=== PATIENT | male | born 1940 | race Caucasian/White ===

== ENCOUNTER 2017-01-01 15:20 | Inpatient (IN) | payer OTHER ==
[2017-01-01] MEDS ORDERED: SODIUM CHLORIDE 1,000 ML IV STA (16:46)
--- NOTE | 2017-01-01 16:52 | PDOC ---
History of Present Illness - General Chief Complaint: Blood Sugar Problem Stated Complaint: DEHYDRATION Time Seen by Provider: 01/01/17 16:13 - History of Present Illness Initial Comments: 01/01/17 17:07 Mr. Abel is a 76 y/o male with a past medical history of CHF hypertension, [place] with CABG, diabetes, end-stage renal disease, who presents to the emergency department today with a chief complaint of high blood sugar and dizziness. Pt. is a poor historian. Patient states had when his home health aide came this morning to take his blood sugar was 400. He states that he also feels a little dizzy and a little short of breath. He feels overall well lying in the bed. Otherwise, the patient states he is unsure why he is here. Denies fevers, chills , weight change, chest pain, palpitations, dyspnea, N/V/D. Past History - Past Medical History Allergies/Adverse Reactions: Allergies Allergy/AdvReac Type Severity Reaction Status Date / Time No Known Drug Allergies Allergy Verified 01/01/17 16:07 Home Medications: Ambulatory Orders Aspirin [ASA -] 81 mg PO HS 10/31/12 Tamsulosin HCl 0.4 mg PO HS 10/31/12 Atorvastatin Calcium [Lipitor] 10 mg PO HS 06/18/13 Tacrolimus [Prograf] 1 mg PO BID 04/08/16 Clopidogrel Bisulfate [Plavix -] 75 mg PO DAILY #30 tablet 04/13/16 Amlodipine Besylate 10 mg PO DAILY 04/28/16 Acetaminophen [Tylenol .Regular Strength -] 650 mg PO Q6H PRN #0 tablet Carvedilol [Coreg -] 25 mg PO BID tablet 05/03/16 Docusate Sodium [Colace -] 100 mg PO BID PRN #0 capsule 05/03/16 Oxycodone HCl [Roxicodone -] 5 mg PO Q6H PRN #0 tablet MDD 4 05/03/16 Collagenase Clostridium Hist. [Santyl -] 1 applic TP DAILY #30 applic 08/11/16 Insulin (Levemir) [Levemir Vial] 25 units SQ AM ml 09/28/16 Insulin Sliding Scale [Novolog Vial Sliding Scale -] 1 vial SQ ACHS units 09/28 Mycophenolate Sodium [Myfortic -] 360 mg PO BID tablet. 09/28/16 Prednisone [Deltasone -] 5 mg PO DAILY tablet 10/01/16 Lactobacillus Acidophilus [Bacid -] 1 each PO DAILY #10 tab 11/01/16 Hydralazine HCl [Apresoline -] 25 mg BID 01/04/17 Anemia: No Asthma: No Cardiac Disorders: Yes COPD: No Diabetes: Yes (IDDM) HTN: Yes Hypercholesterolemia: Yes - Surgical History Appendectomy: No Cardiac Surgery: Yes (open heart surgery) Cholecystectomy: No Orthopedic Surgery: No - Immunization History Immunization Up to Date: Yes - Psycho/Social/Smoking Cessation Hx Anxiety: No Suicidal Ideation: No Smoking Status: No Smoking History: Never smoked Have you smoked in the past 12 months: No Number of Cigarettes Smoked Daily: 0 Information on smoking cessation initiated: No Hx Alcohol Use: No Drug/Substance Use Hx: No Substance Use Type: None Hx Substance Use Treatment: No *Physical Exam - Vital Signs Last Vital Signs Temp Pulse Resp BP Pulse Ox 98.0 F 80 20 130/92 95 01/01/17 16:08 01/01/17 16:08 01/01/17 16:08 01/01/17 16:08 01/01/17 16:08 - Physical Exam Comments: 01/01/17 17:45 GENERAL: Well developed, well nourished. Awake and alert. No acute distress. HEENT: Normocephalic, atraumatic. PERRLA, EOMI. No conjunctival pallor. Sclera are non- icteric. Dry mucous membranes. Oropharynx is clear. NECK: Supple. Full ROM. No JVD. Carotid pulses 2+ and symmetric, without bruits. No thyromegaly. No lymphadenopathy. CARDIOVASCULAR: Regular rate and rhythm. (+) II/ systolic murmur loudest at the apex. No rubs , or gallops. Distal pulses are 2+ and symmetric. PULMONARY: No evidence of respiratory distress. Lungs clear to auscultation bilaterally. No wheezing, rales or rhonchi. ABDOMINAL: Soft. Non-tender. Non-distended. No rebound or guarding. No organomegaly. Normoactive bowel sounds. MUSCULOSKELETAL Normal range of motion at all joints. No bony deformities or tenderness. No CVA tenderness. EXTREMITIES: No cyanosis. No clubbing. (+)1 pitting edema. No calf tenderness. SKIN: Warm and dry. Normal capillary refill. No rashes. No jaundice. NEUROLOGICAL: Alert, awake, appropriate. Cranial nerves 2-12 intact. No deficits to light touch and temperature in face, upper extremities and lower extremities. No motor deficits in the in face, upper extremities and lower extremities. Normoreflexic in the upper and lower extremities. Normal speech. Toes are down- going bilaterally. Gait is normal without ataxia. PSYCHIATRIC: Cooperative. Good eye contact. Appropriate mood and affect. ED Treatment Course - LABORATORY CBC & Chemistry Diagram: 01/05/17 06:10 01/05/17 06:10 - RADIOLOGY Radiology Studies Ordered: Category Date Time Status CHEST X-RAY PORTABLE* [RAD] Stat Radiology 01/01/17 16:44 Ordered Medical Decision Making - Medical Decision Making 01/01/17 17:49 patient is a 76-year-old male with a complex past medical history. He is presenting with dizziness and high blood sugar. Given that he is a poor historian and there are vague symptoms will to a full workup. Pt. is AAOx3. We will rule out DKA, arrhythmia, ACS, pneumonia, infection. Will give fluids and recheck a blood sugar and manage appropriately. Neurological etiology less likely d/t lack of focal neurological findings. 1. Basic labs, CBC, CMP, UA 2. Cardiac Labs, EKG, CXR 3. Acetone for possible DKA. 4. Hydrate with fluids Re-evaluate. 01/01/17 18:40 labs show white count of 14. Blood glucose is currently 328. Elevated potassium 5.8, Na 134, Cl, Patient also has small 1+ acetones. No anion gap 13.this could all be due to possible hydration or underlying infection. EKG at this time shows a sinus rhythm with a rate of 67 prolonged VT interval. There are t wave inversion noted as well. No acute ischemic changes. Still waiting on UA. We will most likely admit for observation 6 units of regular insulin are ordered at this time. Dr. Suzanne rivas. 01/01/17 18:[address] Palacios, admitting to [facility] for obs. Will admit to telemetry for prolonged VT interval with inverted t waves. Case discussed with Dr. Caraballo *DC/Admit/Observation/Transfer Diagnosis at time of Disposition: Hyperglycemia, Acute renal injury Leukocytosis Qualifiers: Leukocytosis type: unspecified Qualified Code(s): D72.829 - Elevated white blood cell count, unspecified - Discharge Dispostion Condition at time of disposition: Stable Admit: Yes
[2017-01-01 17:46] LABS: BASOPHIL 0.7 % (0-2.0); EOSINOPHIL 0.7 % (0-4.5); MCH 29.1 pg (25.7-33.7); MCHC 32.6 g/dl (32.0-35.9); MEAN CELL VOLUME 89.3 fl (80-96); MEAN PLT VOLUME 9.3 fl (7.5-11.1); NEUTROPHILS 72.4 % (42.8-82.8); PLATELET COUNT 218 K/MM3 (134-434); RDW 14.7 % (11.9-15.9); WHITE BLOOD COUNT 14.6 K/mm3 (4.0-10.0)
[2017-01-01 18:11] LABS: TROPONIN I 0.03 ng/ml (0.00-0.05)
[2017-01-01 18:16] LABS: ALBUMIN 3.8 g/dl (3.4-5.0); BILIRUBIN,TOTAL 0.7 mg/dL (0.2-1.0); CALCIUM 9.8 mg/dL (8.5-10.1); CREATININE 1.5 mg/dL (0.7-1.3); TOT PROT 6.8 g/dl (6.4-8.2)
[2017-01-01] MEDS ORDERED: INSULIN REGULAR HUMAN 100 UNITS/ML *VIAL SQ ONE (18:28)
[2017-01-01] MEDS ORDERED: INSULIN REGULAR HUMAN 100 UNITS/ML *VIAL ONE ×2 (19:02→23:02)
--- NOTE | 2017-01-01 19:27 | PN ---
<Pippa Garcia - Last Filed: 01/01/17 19:27> Teaching Attending Note Name of Resident: Omar Mendez <Alfonso Bowles - Last Filed: 01/02/17 04:24> Teaching Attending Note ATTENDING PHYSICIAN STATEMENT I saw and evaluated the patient. I reviewed the resident's note and discussed the case with the resident. I agree with the resident's findings and plan as documented. SUBJECTIVE: Patient is a 76 y/o male who presented to the emergency department, accompanied by his daughter, s/p fall. Patient is a poor historian. As per family, the patient lives alone and receives [employer] during the week. Patient was found on the floor by employee of [employer] and EMS was called. En route to [facility] found patients blood sugar level to be 400. Patient reports that he has not eaten for 3 days and has had minimal water. As per family patient had been complaining of left arm and right leg numbness prior to exam however, on exam patient denied any numbness. Patient denies fevers, chills, weight change, chest pain, palpitations, dyspnea, nausea, vomiting, diarrhea. PMH: CHF, hypertension, [place] with CABG, diabetes, end-stage renal disease, Hypercholesterolemia, Kidney transplant OBJECTIVE: Vital Signs: CBCD WBC 14.6 K/mm3 (4.0-10.0) H D 01/01/17 17:22 RBC 5.32 M/mm3 (4.00-5.60) D 01/01/17 17:22 Hgb 15.5 GM/dL (11.7-16.9) D 01/01/17 17:22 Hct 47.5 % (35.4-49) D 01/01/17 17:22 MCV 89.3 fl (80-96) 01/01/17 17:22 MCHC 32.6 g/dl (32.0-35.9) 01/01/17 17:22 RDW 14.7 % (11.9-15.9) 01/01/17 17:22 Plt Count 218 K/MM3 (134-434) D 01/01/17 17:22 MPV 9.3 fl (7.5-11.1) 01/01/17 17:22 CMP Sodium 134 mmol/L (136-145) L 01/01/17 17:12 Potassium 5.3 mmol/L (3.5-5.1) H 01/01/17 17:12 Chloride 96 mmol/L (98-107) L 01/01/17 17:12 Carbon Dioxide 25 mmol/L (21-32) 01/01/17 17:12 Anion Gap 13 (8-16) 01/01/17 17:12 BUN 31 mg/dL (7-18) H 01/01/17 17:12 Creatinine 1.5 mg/dL (0.7-1.3) H D 01/01/17 17:12 Creat Clearance w eGFR 45.75 (>60) 01/01/17 17:12 Calcium 9.8 mg/dL (8.5-10.1) D 01/01/17 17:12 Total Bilirubin 0.7 mg/dL (0.2-1.0) D 01/01/17 17:12 AST 20 U/L (15-37) D 01/01/17 17:12 ALT 17 U/L (12-78) 01/01/17 17:12 Alkaline Phosphatase 91 U/L (45-117) 01/01/17 17:12 Total Protein 6.8 g/dl (6.4-8.2) D 01/01/17 17:12 Albumin 3.8 g/dl (3.4-5.0) D 01/01/17 17:12 GENERAL: Awake, alert, and fully oriented, in no acute distress HEENT: (+) Dry mucosa. Atraumatic. PERRLA, EOMI. No JVD LUNGS: No distress, speaks full sentences, clear to auscultation bilaterally HEART: Regular rate and rhythm, normal S1 and S2, no murmurs, rubs or gallops, peripheral pulses normal and equal bilaterally. ABDOMEN: Soft, nontender, normoactive bowel sounds. No guarding, no rebound. No masses EXTREMITIES: (+) Left lower extremity +1 pitting edema and is slighty larger than the right lower extremity. Normal inspection, Normal range of motion. No clubbing or cyanosis. NEUROLOGICAL: Cranial nerves II through XII grossly intact. Normal speech, normal gait, no focal sensorimotor deficits SKIN: Warm, Dry, normal turgor, no rashes or lesions noted. Labs: Last Vital Signs Temp Pulse Resp BP Pulse Ox 98.0 F 80 20 130/92 95 01/01/17 16:08 01/01/17 16:08 01/01/17 16:08 01/01/17 16:08 01/01/17 16:08 Imaging: ECG. Impression-Normal sinus rhythm. Right bundle branch block. Left anterior fascicular block. Bifascicular block. T wave abnormality, consider lateral ischemia. Abnormal ECG. ASSESSMENT AND PLAN: Fall - unclear mechanism. Do not suspect this is cardiac in nature but can trend trop to r/o. -Check orthostatics -Follow CT head and carotid Doppler -Follow lipid profile -Fall precaution -IV fluid NS 100ml/hr Leukocytosis - Immunocompromised patient due to renal transplant history on prednisone/mycophenolate/ Tacrolimus, could be due to prednisone. Ruling out UTI. -Give ampicillin 1g Q6H empirically -Consider ID consult CHUCK-Could be prerenal from decrease fluid intake or could be due to tacrolimus/ mycophenolate -Follow Urine lytes, protien, pr: cr ratio -IV fluid NS 100ml/hr -UA has hyaline cast -Repeat labs in morning. Update: Shows CHUCK resolved Diabetes - hyperglycemic, -Started on sliding scale and levemir -Monitor blood glucose -Diabetic diet CAD history of CABG -Restart home meds. -R/o cardiac etiology of fall -ECHO done in october 2016 Renal transplant - -Resume home medications. -Nephrology consult in AM Admit to tele. ADDENDUM: At 12:49 patient was found to be unresponsive in the ER. [place] coma scale of less than 8 at the time aliya josey was called patient intubated. Repeat CT negative for any acute findings. Repeat labs done which reported CHUCK resolved. Documentation prepared by Alfonso Bowles, acting as medical imaging director for Yeimi Nevarez MD.
[2017-01-01 19:36] LABS: URINE APPEARANCE CLEAR; URINE BILIRUBIN NEGATIVE (NEGATIVE); URINE BLOOD NEGATIVE (NEGATIVE); URINE COLOR LTYELLOW; URINE GLUCOSE (UA) 3+ (NEGATIVE); URINE KETONE 1+ (NEGATIVE); URINE LEUK ESTERASE NEGATIVE (NEGATIVE); URINE NITRITE NEGATIVE (NEGATIVE); URINE UROBILINOGEN NEGATIVE E.U./dl (0.2-1.0)
[2017-01-01 19:39] LABS: URINE PROTEIN 1+ (NEGATIVE)
[2017-01-01 19:41] LABS: URINE HYALINE CAST 2 /lpf; URINE MUCUS RARE; URINE RBC <1 /hpf (0-3); URINE WBC <1 /hpf (3-5)
[2017-01-01] MEDS ORDERED: SODIUM CHLORIDE 1,000 ML IV SCH (20:45)
[2017-01-01] MEDS ORDERED: DOCUSATE SODIUM 100 MG CAPSULE (FP) PO PRN (20:46)
--- NOTE | 2017-01-01 20:51 | HP ---
CHIEF COMPLAINT: fall and hyperglycemia PCP: Dr palumbo HISTORY OF PRESENT ILLNESS: Patient is a 76 y/o male who presented to the emergency department, accompanied by his daughter, s/p jeramy. Patient is a poor historian. As per family, the patient lives alone and receives [employer] during the week. Patient was found on the floor by employee of [employer] and EMS was called. En route to [facility] found patients blood sugar level to be 400. Patient reports that he has not eaten for 3 days and has had minimal water. As per family patient had been complaining of left arm and right leg numbness prior to exam however, on exam patient denied any numbness. Patient denies fevers, chills, weight change, chest pain, palpitations, dyspnea , nausea, vomiting, diarrhea. ER course was notable for: (1)cbc, cmp (2)cxr (3)insulin 6 unit sq, 1 L IV fluid Recent Travel: PAST MEDICAL HISTORY: CHF, hypertension, [place] with CABG, diabetes, end-stage renal disease, Hypercholesterolemia, Kidney transplant PAST SURGICAL HISTORY: CABG, renal transplant Social History: Smoking: No Alcohol: No Drugs: No Family History: Allergies No Known Drug Allergies Allergy (Verified 01/01/17 16:07) HOME MEDICATIONS: Home Medications Medication Instructions Recorded Aspirin [ASA -] 81 mg PO HS 10/31/12 Tamsulosin HCl 0.4 mg PO HS 10/31/12 Atorvastatin Calcium [Lipitor] 10 mg PO HS 06/18/13 Tacrolimus [Prograf] 1 mg PO BID 04/08/16 Clopidogrel Bisulfate [Plavix -] 75 mg PO DAILY #30 tablet 04/13/16 Amlodipine Besylate 10 mg PO DAILY 04/28/16 Acetaminophen [Tylenol .Regular 650 mg PO Q6H PRN #0 tablet 05/03/16 Strength -] Carvedilol [Coreg -] 25 mg PO BID tablet 05/03/16 Docusate Sodium [Colace -] 100 mg PO BID PRN #0 capsule 05/03/16 Hydralazine HCl [Apresoline -] 25 mg PO TID tablet 05/03/16 Oxycodone HCl [Roxicodone -] 5 mg PO Q6H PRN #0 tablet MDD 4 05/03/16 Collagenase Clostridium Hist. 1 applic TP DAILY #30 applic 08/11/16 [Santyl -] Insulin (Levemir) [Levemir Vial] 25 units SQ AM ml 09/28/16 Insulin Sliding Scale [Novolog 1 vial SQ ACHS units 09/28/16 Vial Sliding Scale -] Mycophenolate Sodium [Myfortic -] 360 mg PO BID tablet. 09/28/16 Prednisone [Deltasone -] 5 mg PO DAILY tablet 10/01/16 Lactobacillus Acidophilus [Bacid -] 1 each PO DAILY #10 tab 11/01/16 REVIEW OF SYSTEMS CONSTITUTIONAL: Fall Absent: fever, chills, diaphoresis, generalized weakness, malaise, loss of appetite, weight change HEENT: Absent: rhinorrhea, nasal congestion, throat pain, throat swelling, difficulty swallowing, mouth swelling, ear pain, eye pain, visual changes CARDIOVASCULAR: Absent: chest pain, syncope, palpitations, irregular heart rate, lightheadedness , peripheral edema RESPIRATORY: Absent: cough, shortness of breath, dyspnea with exertion, orthopnea, wheezing, stridor, hemoptysis GASTROINTESTINAL: Absent: abdominal pain, abdominal distension, nausea, vomiting, diarrhea, constipation, melena, hematochezia GENITOURINARY: Absent: dysuria, frequency, urgency, hesitancy, hematuria, flank pain, genital pain MUSCULOSKELETAL: Absent: myalgia, arthralgia, joint swelling, back pain, neck pain SKIN: Absent: rash, itching, pallor HEMATOLOGIC/IMMUNOLOGIC: Absent: easy bleeding, easy bruising, lymphadenopathy, frequent infections ENDOCRINE: Absent: unexplained weight gain, unexplained weight loss, heat intolerance, cold intolerance NEUROLOGIC: Fall Absent: headache, focal weakness or paresthesias, dizziness, unsteady gait , seizure, mental status changes, bladder or bowel incontinence PSYCHIATRIC: Absent: anxiety, depression, suicidal or homicidal ideation, hallucinations. PHYSICAL EXAMINATION GENERAL: Awake, alert, and fully oriented, in no acute distress. HEAD: Normal with no signs of trauma. EYES: Pupils equal, round and reactive to light, extraocular movements intact, sclera anicteric, conjunctiva clear. No lid lag. EARS, NOSE, THROAT: Ears normal, nares patent, oropharynx clear without exudates. DRY mucous membranes. NECK: Normal range of motion, supple without lymphadenopathy, JVD, or masses. LUNGS: Breath sounds equal, clear to auscultation bilaterally. No wheezes, and no crackles. No accessory muscle use. HEART: Regular rate and rhythm, normal S1 and S2, murmur present aortic stenosis radiating to neck ABDOMEN: Soft, nontender, not distended, normoactive bowel sounds, no guarding, no rebound, no masses. No hepatomegaly or splenomegaly. MUSCULOSKELETAL: Normal range of motion at all joints. No bony deformities or tenderness. No CVA tenderness. UPPER EXTREMITIES: 2+ pulses, warm, well-perfused. No cyanosis. No clubbing. Cap refill <2 seconds. No peripheral edema. av fistula in RUE LOWER EXTREMITIES: , warm, well-perfused. No calf tenderness. 1+ pitting edema NEUROLOGICAL: Cranial nerves II-XII intact. Normal speech. PSYCHIATRIC: Cooperative. Good eye contact. Appropriate mood and affect. SKIN: Warm, dry, normal turgor, no rashes or lesions noted. Laboratory Results - last 24 hr 01/01/17 19:39 POC Glucometer [phone] Current Medications Generic Name Dose Route Start Last Admin Trade Name Freq PRN Reason Stop Dose Admin Amlodipine Besylate 10 mg 01/02/17 10:00 Norvasc - PO DAILY [facility] Aspirin 81 mg 01/01/17 22:00 Asa - PO HS [facility] Atorvastatin Calcium 10 mg 01/01/17 22:00 Lipitor - PO HS [facility] Carvedilol 25 mg 01/01/17 22:00 Coreg - PO BID [facility] Clopidogrel Bisulfate 75 mg 01/02/17 10:00 Plavix - PO DAILY [facility] Collagenase 1 applic 01/02/17 10:00 Santyl - TP DAILY [facility] Docusate Sodium 100 mg 01/01/17 20:46 Colace - PO BID PRN CONSTIPATION Heparin Sodium (Porcine) 5,000 unit 01/01/17 22:00 Heparin - SQ TID [facility] Hydralazine HCl 25 mg 01/01/17 22:00 Apresoline - PO TID [facility] Sodium Chloride 1,000 mls @ 100 mls/hr 01/01/17 20:45 Normal Saline - IV ASDIR [facility] Insulin Aspart 1 vial 01/01/17 22:00 Novolog Vial Sliding Scale - SQ ACHS [facility] Protocol Insulin Detemir 25 units 01/02/17 07:00 Levemir Vial SQ AM [facility] Lactobacillus Acidophilus 1 tab 01/02/17 10:00 Bacid - PO DAILY [facility] Mycophenolate Sodium 360 mg 01/01/17 22:00 Mycophenolic Acid PO BID [facility] Prednisone 5 mg 01/02/17 10:00 Deltasone - PO DAILY [facility] Tacrolimus 1 mg 01/01/17 22:00 Prograf (Non-Formulary) PO BID [facility] Tamsulosin HCl 0.4 mg 01/01/17 22:00 Flomax - PO HS [facility] Initial EKG NSR with RBBB (also seen on prior). ASSESSMENT/PLAN: Patient is a 76 y/o male who presented to the emergency department, accompanied by his daughter, s/p fall 1. Fall - unclear mechanism, Initial EKG NSR with RBBB (also seen on prior). Trop 0.03. Do not suspect this is cardiac in nature but can trend trop to r/ o. Has not reported CP/SOB. will need PT evaluation as patient has repeated fall, might need walker. He walks with cane check orthostatics, Follow Ct heat and carotid Doppler Follow lipid profile fall precaution IV fluid NS 100ml/hr 2. Leukocytosis - immunocompromised pt due to renal transplant history on prednisone/mycophenolate/ Tacrolimus as patient is immunocompromised and had h/o enterococcus faecalis in urine , will give ampicillin 1gm q6h empirically, consider ID consult. Follow urine culture, r/o uti afebrile CXR reviewed UA negative for nitrites/LE. 3 CHUCK could be prerenal from decrease fluid intake or could be due to tacrolimus/ mycophenolate follow Urine lytes, protien, pr: cr ratio on IV fluid NS 100ml/hr UA has hyaline cast repeat labs in morning consider nephro consult 4. Diabetes - hyperglycemic, started on sliding scale and levemir monitor blood glucose diabetic diet 5. h/o CABG - on tele, restart home meds. r/o cardiac etiology of fall ECHO done in october 2016 continue home BP medication 6. h/o Renal transplant - resume home medications. nephro consult 7 HTN continue home meds fluid : NS 100ml/hr electrolyte: follow in am, hyperkalemia DVT pro: heparin sq q8h GI pro: not required Dispo: admit in tele Visit type - Emergency Visit Emergency Visit: Yes ED Registration Date: 01/01/17 Care time: The patient presented to the Emergency Department on the above date and was hospitalized for further evaluation of their emergent condition. - New Patient This patient is new to me today: Yes Date on this admission: 01/02/17 - Critical Care Critical Care patient: No
[2017-01-01] MEDS ORDERED: ATORVASTATIN CA 10 MG TABLET (FP) PO SCH (22:00)
[2017-01-01] MEDS ORDERED: TAMSULOSIN HCL 0.4 MG CAP.ER.24H (FP) PO SCH (22:00)
[2017-01-01] MEDS ORDERED: ASPIRIN 81 MG CHEWABLE TABLETS PO SCH (22:00)
[2017-01-01] MEDS: INSULIN SLIDING SCALE (NOVOLOG) 1 VIAL SQ SCH (23:01)
[2017-01-01] MEDS ORDERED: HEPARIN NA (PORCINE) 5,000 UNITS/ML 1ML VIAL ONE (23:02)
[2017-01-01] MEDS: CARVEDILOL 25 MG TABLET (FP) PO SCH (23:06)
[2017-01-01] MEDS: hydrALAZINE HCL 25 MG TABLET (FP) PO SCH (23:06)
[2017-01-01] MEDS: HEPARIN NA (PORCINE) 5,000 UNITS/ML 1ML VIAL SQ SCH (23:07)
[2017-01-01] MEDS: TACROLIMUS ANHYDROUS 1 MG CAPSULE (NF) PO SCH (23:07)
[2017-01-01] MEDS: MYCOPHENOLATE SODIUM 360 MG TABLET.DR PO SCH (23:07)
[2017-01-02 01:08] LABS: ARTERIAL BLD GAS O2 SATURATION 99.6 % (90-98.9); ARTERIAL BLOOD GAS BASE EXCESS 2.4 meq/l (-2-2); ARTERIAL BLOOD GAS HCO3 27.4 meq/L (22-26); ARTERIAL BLOOD GAS pH 7.39 (7.35-7.45)
[2017-01-02] MEDS ORDERED: RAPID SEQUENCE INTUBATION KIT NR ONE (01:10)
[2017-01-02 01:14] LABS: ALLENS TEST POSITIVE; LPM/O2% 100; PT. ON O2? YES; TYPE OF O2 NONREBREATHER
--- NOTE | 2017-01-02 01:24 | PDOC ---
*Physical Exam - Vital Signs Last Vital Signs Temp Pulse Resp BP Pulse Ox 98.6 F 82 20 114/57 95 01/01/17 21:55 01/02/17 00:31 01/01/17 21:55 01/02/17 00:31 01/01/17 21:55 ED Treatment Course - LABORATORY CBC & Chemistry Diagram: 01/05/17 06:10 01/05/17 06:10 - ADDITIONAL ORDERS Additional order review: Laboratory Results 01/01/17 01/01/17 01/01/17 17:12 17:12 17:12 Sodium 134 L Potassium 5.3 H Chloride 96 L Carbon Dioxide 25 Anion Gap 13 BUN 31 H Creatinine 1.5 H D Creat Clearance w eGFR 45.75 Random Glucose 329 H* Calcium 9.8 D Total Bilirubin 0.7 D AST 20 D ALT 17 Alkaline Phosphatase 91 Creatine Kinase 394 H D Creatine Kinase Index 1.3 CK-MB (CK-2) 5.120 H CK-MB (CK-2) Rel Index Cancelled Troponin I 0.03 D Total Protein 6.8 D Albumin 3.8 D Urine Color Urine Appearance Urine pH Ur Specific Bryan Urine Protein Urine Glucose (UA) Urine Ketones Urine Blood Urine Nitrite Urine Bilirubin Urine Urobilinogen Ur Leukocyte Esterase Urine RBC Urine WBC Hyaline Casts Urine Mucus Acetone, Qual 01/01/17 01/01/17 17:12 16:30 Sodium Potassium Chloride Carbon Dioxide Anion Gap BUN Creatinine Creat Clearance w eGFR Random Glucose Calcium Total Bilirubin AST ALT Alkaline Phosphatase Creatine Kinase Creatine Kinase Index CK-MB (CK-2) CK-MB (CK-2) Rel Index Troponin I Total Protein Albumin Urine Color Ltyellow Urine Appearance Clear Urine pH 6.0 Ur Specific Bryan 1.017 Urine Protein 1+ H Urine Glucose (UA) 3+ H Urine Ketones 1+ H Urine Blood Negative Urine Nitrite Negative Urine Bilirubin Negative Urine Urobilinogen Negative Ur Leukocyte Esterase Negative Urine RBC <1 Urine WBC <1 Hyaline Casts 2 Urine Mucus Rare Acetone, Qual Positive small 1+ 01/01/17 17:22 RBC 5.32 D MCV 89.3 MCHC 32.6 RDW 14.7 MPV 9.3 Neutrophils % 72.4 Lymphocytes % 17.4 Monocytes % 8.8 Eosinophils % 0.7 Basophils % 0.7 - Medications Given in the ED: ED Medications Discontinued Medications Generic Name Dose Route Start Last Admin Trade Name Freq PRN Reason Stop Dose Admin Sodium Chloride 1,000 mls @ 1,000 mls/hr 01/01/17 16:46 01/01/17 17:05 Normal Saline - IV 01/01/17 17:45 1,000 mls/hr ASDIR STA Administration Insulin Human Regular 6 units 01/01/17 18:28 01/01/17 19:47 Novolin R Vial *Ivpush / Er / Icu Only* SQ 01/01/17 18:29 6 unit ONCE ONE Administration Medical Decision Making - Medical Decision Making 01/02/17 01:19 76 yo M admitted for recurrent falls and hyperglycemia Head CT initially negative Pt found unresponsive with normal vital signs Multiple attempts to arouse patient unsuccessful I was called to assist in intubating this patient Two prior attempts were made with the Glidescope prior to my arrival After pre oxygenation via face mask, Etomidate and Succ given DL with Mac 3 (Mac 4 unavailable) Anterior cords 7.0 easily passed (+) tube fogging (+) capnography color change to yellow Bilateral breath sounds Absence of epigastric breath sounds Pt taken to CT for evaluation CXR demonstrates end of ETT at the [place] Pt O2 saturation 99%-100% *DC/Admit/Observation/Transfer Diagnosis at time of Disposition: Hyperglycemia, Acute renal injury Leukocytosis Qualifiers: Leukocytosis type: unspecified Qualified Code(s): D72.829 - Elevated white blood cell count, unspecified - Discharge Dispostion Condition at time of disposition: Stable
--- NOTE | 2017-01-02 01:57 | HOSP ---
Subjective - Review of Symptoms Events since last encounter: 76 yo M admitted for recurrent falls and hyperglycemia. Initial Head CT negative Pt found unresponsive with normal vital signs. Multiple attempts to arouse patient unsuccessful. unequal pupil ( right pinpoint, left 2mm) GCS < 8, code agosto was called. Patient was intubated to maintain airway. (+) capnography color change to yellow Bilateral breath sounds Absence of epigastric breath sounds, nasogastric tube was inserted. Pt taken to CT for evaluation: Repeat CT same as before. Dr thomas has discussed the case with neurologist dr hayden: shift patient to ICU, continue same treatment, no TPA, possible stroke CBCD WBC 14.6 K/mm3 (4.0-10.0) H D 01/01/17 17:22 RBC 5.32 M/mm3 (4.00-5.60) D 01/01/17 17:22 Hgb 15.5 GM/dL (11.7-16.9) D 01/01/17 17:22 Hct 47.5 % (35.4-49) D 01/01/17 17:22 MCV 89.3 fl (80-96) 01/01/17 17:22 MCHC 32.6 g/dl (32.0-35.9) 01/01/17 17:22 RDW 14.7 % (11.9-15.9) 01/01/17 17:22 Plt Count 218 K/MM3 (134-434) D 01/01/17 17:22 MPV 9.3 fl (7.5-11.1) 01/01/17 17:22 CMP Sodium 134 mmol/L (136-145) L 01/01/17 17:12 Potassium 5.3 mmol/L (3.5-5.1) H 01/01/17 17:12 Chloride 96 mmol/L (98-107) L 01/01/17 17:12 Carbon Dioxide 25 mmol/L (21-32) 01/01/17 17:12 Anion Gap 13 (8-16) 01/01/17 17:12 BUN 31 mg/dL (7-18) H 01/01/17 17:12 Creatinine 1.5 mg/dL (0.7-1.3) H D 01/01/17 17:12 Creat Clearance w eGFR 45.75 (>60) 01/01/17 17:12 Random Glucose 329 mg/dL (74-106) H* 01/01/17 17:12 Calcium 9.8 mg/dL (8.5-10.1) D 01/01/17 17:12 Total Bilirubin 0.7 mg/dL (0.2-1.0) D 01/01/17 17:12 AST 20 U/L (15-37) D 01/01/17 17:12 ALT 17 U/L (12-78) 01/01/17 17:12 Alkaline Phosphatase 91 U/L (45-117) 01/01/17 17:12 Total Protein 6.8 g/dl (6.4-8.2) D 01/01/17 17:12 Albumin 3.8 g/dl (3.4-5.0) D 01/01/17 17:12 CARDIAC ENZYMES Creatine Kinase 394 IU/L (39-308) H D 01/01/17 17:12 Troponin I 0.03 ng/ml (0.00-0.05) D 01/01/17 17:12 Current Medications Generic Name Dose Route Start Last Admin Trade Name Freq PRN Reason Stop Dose Admin Amlodipine Besylate 10 mg 01/02/17 10:00 Norvasc - PO DAILY HUGO Aspirin 81 mg 01/01/17 22:00 01/01/17 23:06 Asa - PO 81 mg HS HUGO Administration Atorvastatin Calcium 10 mg 01/01/17 22:00 01/01/17 23:07 Lipitor - PO 10 mg HS HUGO Administration Carvedilol 25 mg 01/01/17 22:00 01/01/17 23:06 Coreg - PO 25 mg BID HUGO Administration Clopidogrel Bisulfate 75 mg 01/02/17 10:00 Plavix - PO DAILY HUGO Collagenase 1 applic 01/02/17 10:00 Santyl - TP DAILY [facility] Docusate Sodium 100 mg 01/01/17 20:46 Colace - PO BID PRN CONSTIPATION Heparin Sodium (Porcine) 5,000 unit 01/01/17 22:00 01/01/17 23:07 Heparin - SQ 5,000 unit TID HUGO Administration Hydralazine HCl 25 mg 01/01/17 22:00 01/01/17 23:06 Apresoline - PO 25 mg TID HUGO Administration Sodium Chloride 1,000 mls @ 100 mls/hr 01/01/17 20:45 01/01/17 22:59 Normal Saline - IV 100 mls/hr ASDIR HUGO Administration Ampicillin Sodium 1 gm/ Sodium 100 mls @ 200 mls/hr 01/02/17 03:00 Chloride IVPB Q6H-IV HUGO Insulin Aspart 1 vial 01/01/17 22:00 01/01/17 23:01 Novolog Vial Sliding Scale - SQ 4 unit ACHS HUGO Administration Protocol Insulin Detemir 25 units 01/02/17 07:00 Levemir Vial SQ AM HUGO Lactobacillus Acidophilus 1 tab 01/02/17 10:00 Bacid - PO DAILY HUGO Mycophenolate Sodium 360 mg 01/01/17 22:00 01/01/17 23:07 Mycophenolic Acid PO 360 mg BID HUGO Administration Prednisone 5 mg 01/02/17 10:00 Deltasone - PO DAILY HUGO Tacrolimus 1 mg 01/01/17 22:00 01/01/17 23:07 Prograf (Non-Formulary) PO 1 mg BID HUGO Administration Tamsulosin HCl 0.4 mg 01/01/17 22:00 01/01/17 23:06 Flomax - PO 0.4 mg HS HUGO Administration Blood sugar 157. Plan stat cmp, lactic acid, trop i, ekg, tsh, serum cortisole. transfer patient to icu Family informed regarding condition of patient, Family informed that patient might have possible bleed so getting a repeat CT head. Informed that patient is also intubated and patient will be shifted to ICU. Case discussed with CONCESSION MANAGER in ICU. Patient is full code ABCD;score 5 IV fluid decreased to 50ml/hr New CT report : no haemorrhage, mass or acute territorial infarct. chrnic lacunar infarct. 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 - New Patient This patient is new to me today: No - Critical Care Critical Care patient: Yes Total Critical Care Time (in minutes): 75 Critical Care Statement: The care of this patient involved high complexity decision making to prevent further life threatening deterioration of the patient 's condition and/or to evalute & treat vital organ system(s) failure or risk of failure.
--- NOTE | 2017-01-02 02:03 | CONSULT ---
Consult Consult Specialty:: Pulm/CCM Reason for Consultation:: AMS - History of Present Illness Chief Complaint: Altered mental status History of Present Illness: Mr. Abel is a 76 y/o male with a past medical history of CHF hypertension, [place] with CABG, diabetes, ESRD s/p renal transplant (~4 yrs ago on Tacro and MMF), who presented to the emergency department today with a chief complaint of high blood sugar and dizziness. Pt. is a poor historian. Patient relates home health aide came this morning to take his blood sugar, found that it was 400 and EMS was activated. Pt also states that he intermittently little dizzy and a little short of breath. Denied fevers, chills, weight change, chest pain, palpitations , dyspnea, N/V/D. Was seemingly doing well in ED then was noted to be unresponsive by RN. Numerous attempts to awaken pt were unsuccessful. BGL at that time was not low. There was no seizure activity. Pt was felt not to be protecting his airway and so was intubated without difficulty. ABG was normal. CT head performed without contrast, does not show ICH, awaiting final read. Given leukocytosis and immunosuppresed state was started on abx - History Source History Provided By: Medical Record - Past Medical History Cardio/Vascular: Yes: CAD (CABG), HTN, Other (PAD, heel osteo in 04/05) Renal/: Yes: Renal Failure, Hemodialysis (H/O), Other (S/P Kidnet tranplant 4 years ago. He has a shunt in his right upper arm) Endocrine: Yes: Diabetes Mellitus - Past Surgical History Past Surgical History: Yes: CABG, Kidney Transplant - Alcohol/Substance Use Hx Alcohol Use: No - Smoking History Smoking history: Never smoked Have you smoked in the past 12 months: No Aproximately how many cigarettes per day: 0 - Social History Usual Living Arrangement: Alone ADL: Support Services History of Recent Travel: No Home Medications - Allergies Allergies/Adverse Reactions: Allergies Allergy/AdvReac Type Severity Reaction Status Date / Time No Known Drug Allergies Allergy Verified 01/01/17 16:07 - Home Medications Home Medications: Ambulatory Orders Aspirin [ASA -] 81 mg PO HS 10/31/12 Tamsulosin HCl 0.4 mg PO HS 10/31/12 Atorvastatin Calcium [Lipitor] 10 mg PO HS 06/18/13 Tacrolimus [Prograf] 1 mg PO BID 04/08/16 Clopidogrel Bisulfate [Plavix -] 75 mg PO DAILY #30 tablet 04/13/16 Amlodipine Besylate 10 mg PO DAILY 04/28/16 Acetaminophen [Tylenol .Regular Strength -] 650 mg PO Q6H PRN #0 tablet Carvedilol [Coreg -] 25 mg PO BID tablet 05/03/16 Docusate Sodium [Colace -] 100 mg PO BID PRN #0 capsule 05/03/16 Hydralazine HCl [Apresoline -] 25 mg PO TID tablet 05/03/16 Oxycodone HCl [Roxicodone -] 5 mg PO Q6H PRN #0 tablet MDD 4 05/03/16 Collagenase Clostridium Hist. [Santyl -] 1 applic TP DAILY #30 applic 08/11/16 Insulin (Levemir) [Levemir Vial] 25 units SQ AM ml 09/28/16 Insulin Sliding Scale [Novolog Vial Sliding Scale -] 1 vial SQ ACHS units 09/28 Mycophenolate Sodium [Myfortic -] 360 mg PO BID tablet. 09/28/16 Prednisone [Deltasone -] 5 mg PO DAILY tablet 10/01/16 Lactobacillus Acidophilus [Bacid -] 1 each PO DAILY #10 tab 11/01/16 Family Disease History - Family Disease History Family History: Unable to Obtain (intubated sedated) Review of Systems Unable to obtain ROS, reason: intubated sedated Physical Exam Vital Signs: Vital Signs Temperature 98.6 F 01/01/17 21:55 Pulse Rate 82 01/02/17 00:31 Respiratory Rate 12 01/02/17 01:35 Blood Pressure 114/57 01/02/17 00:31 O2 Sat by Pulse Oximetry (%) 95 01/01/17 21:55 Constitutional: Yes: Well Nourished, No Distress Eyes: Yes: Conjunctiva Clear, Cataracts, PERRL (L reactive @ 3mm, , cataract R) HENT: Yes: Normocephalic Neck: Yes: Trachea Midline. No: Lymphadenopathy Cardiovascular: Yes: Regular Rate and Rhythm, Murmur Respiratory: Yes: CTA Bilaterally, Mechanically Ventilated. No: Accessory Muscle Use Gastrointestinal: Yes: Normal Bowel Sounds, Soft ...Rectal Exam: Yes: Deferred Renal/: Yes: WNL Breast(s): Yes: WNL Musculoskeletal: Yes: WNL Extremities: Yes: WNL Edema: No Peripheral Pulses WNL: Yes Integumentary: Yes: WNL Wound/Incision: Yes: Other (old scar from kidney transplant) Neurological: Yes: Alert, Cran Nerves II-XII Intact. No: Facial Droop ...Motor Strength: WNL Psychiatric: Yes: WNL Labs: CBC, BMP 01/01/17 17:22 CBCD WBC 14.6 K/mm3 (4.0-10.0) H D 01/01/17 17:22 RBC 5.32 M/mm3 (4.00-5.60) D 01/01/17 17:22 Hgb 15.5 GM/dL (11.7-16.9) D 01/01/17 17:22 Hct 47.5 % (35.4-49) D 01/01/17 17:22 MCV 89.3 fl (80-96) 01/01/17 17:22 MCHC 32.6 g/dl (32.0-35.9) 01/01/17 17:22 RDW 14.7 % (11.9-15.9) 01/01/17 17:22 Plt Count 218 K/MM3 (134-434) D 01/01/17 17:22 MPV 9.3 fl (7.5-11.1) 01/01/17 17:22 CMP Sodium 134 mmol/L (136-145) L 01/01/17 17:12 Potassium 5.3 mmol/L (3.5-5.1) H 01/01/17 17:12 Chloride 96 mmol/L (98-107) L 01/01/17 17:12 Carbon Dioxide 25 mmol/L (21-32) 01/01/17 17:12 Anion Gap 13 (8-16) 01/01/17 17:12 BUN 31 mg/dL (7-18) H 01/01/17 17:12 Creatinine 1.5 mg/dL (0.7-1.3) H D 01/01/17 17:12 Creat Clearance w eGFR 45.75 (>60) 01/01/17 17:12 Calcium 9.8 mg/dL (8.5-10.1) D 01/01/17 17:12 Total Bilirubin 0.7 mg/dL (0.2-1.0) D 01/01/17 17:12 AST 20 U/L (15-37) D 01/01/17 17:12 ALT 17 U/L (12-78) 01/01/17 17:12 Alkaline Phosphatase 91 U/L (45-117) 01/01/17 17:12 Total Protein 6.8 g/dl (6.4-8.2) D 01/01/17 17:12 Albumin 3.8 g/dl (3.4-5.0) D 01/01/17 17:12 Imaging - Results Chest X-ray: Image Reviewed (ETT in good position, no infiltrate) Cat Scan: Report Reviewed (Old lacunar infarct, no ICH or acute CVA) Problem List - Problems (1) Acute renal injury Code(s): N17.9 - ACUTE KIDNEY FAILURE, UNSPECIFIED (2) Hyperglycemia Code(s): R73.9 - HYPERGLYCEMIA, UNSPECIFIED (3) Leukocytosis Code(s): D72.829 - ELEVATED WHITE BLOOD CELL COUNT, UNSPECIFIED Qualifiers: Leukocytosis type: unspecified Qualified Code(s): D72.829 - Elevated white blood cell count, unspecified (4) H/O kidney transplant Code(s): Z94.0 - KIDNEY TRANSPLANT STATUS (5) Alteration consciousness Code(s): R40.4 - TRANSIENT ALTERATION OF AWARENESS Assessment/Plan PULM/CCM Pt seen and examined in ICU A/ 76 y/o man hx of HTN, HL, DM, ESRD s/p renal transplant, p/w hyperglycemia, dizziness had acute mental status change in ED prompting intubation and CT head x 2 which were unrevealing. Non convulsive status and PRESS are high on differential. P/ -cont mech ventilation, if awake/protecting airway can extubate -EEG to r/o NCS when available -hold and check tacro level -MRI once extubated -neuro consult if reoccurs or further imaging is revealing -glycemic control -DVT/GI prophy Darryn Mora ACNP [id number] 35min CCT
[2017-01-02 02:07] LABS: ART PUNCT SITE LEFT RADIAL
[2017-01-02 03:02] LABS: ARTERIAL BLD GAS O2 SATURATION 99.7 % (90-98.9); ARTERIAL BLOOD GAS BASE EXCESS 3.4 meq/l (-2-2); ARTERIAL BLOOD GAS pH 7.46 (7.35-7.45)
[2017-01-02 03:03] LABS: ALLENS TEST POSITIVE; ART PUNCT SITE LEFT RADIAL; ARTERIAL BLOOD GAS HCO3 26.8 meq/L (22-26); LPM/O2% 100; MECH. VENT. YES; PT. ON O2? YES; TYPE OF O2 VENT; VENT RATE 12; VT/PRESS 450
[2017-01-02 03:21] VITALS: BMI 25.2
[2017-01-02 03:28] LABS: INR 1.05 (0.82-1.09); PROTHROMBIN TIME (PATIENT) 11.6 SEC (9.98-11.88)
[2017-01-02] MEDS: AMPICILLIN - 1 GM in SODIUM CHLORIDE 100 ML IVPB SCH ×2 (03:30→10:00)
[2017-01-02 03:31] LABS: ALBUMIN 2.9 g/dl (3.4-5.0); BILIRUBIN,TOTAL 0.6 mg/dL (0.2-1.0); CALCIUM 7.7 mg/dL (8.5-10.1); CREATININE 1.2 mg/dL (0.7-1.3); TOT PROT 5.3 g/dl (6.4-8.2)
[2017-01-02 03:31] LABS: ACTIVATED PTT 28.2 SECONDS (26.9-34.4)
[2017-01-02] MEDS: SODIUM CHLORIDE 1,000 ML IV SCH (04:00)
--- NOTE | 2017-01-02 05:45 | CONSULT ---
Consult - text type - Consultation Consultation Note: Consult Consult Specialty:: Pulm/CCM Reason for Consultation:: AMS - History of Present Illness Chief Complaint: Altered mental status History of Present Illness: Mr. Abel is a 76 y/o male with a past medical history of CHF hypertension, [place] with CABG, diabetes, ESRD s/p renal transplant (~4 yrs ago on Tacro and MMF), who presented to the emergency department today with a chief complaint of high blood sugar and dizziness. Pt. is a poor historian. Patient relates home health aide came this morning to take his blood sugar, found that it was 400 and EMS was activated. Pt also states that he intermittently little dizzy and a little short of breath. Denied fevers, chills, weight change, chest pain, palpitations , dyspnea, N/V/D. Was seemingly doing well in ED then was noted to be unresponsive by RN. Numerous attempts to awaken pt were unsuccessful. BGL at that time was not low. There was no seizure activity. Pt was felt not to be protecting his airway and so was intubated without difficulty. ABG was normal. CT head performed without contrast, does not show ICH, awaiting final read. Given leukocytosis and immunosuppresed state was started on abx - History Source History Provided By: Medical Record - Past Medical History Cardio/Vascular: Yes: CAD (CABG), HTN, Other (PAD, heel osteo in 04/05) Renal/: Yes: Renal Failure, Hemodialysis (H/O), Other (S/P Kidnet tranplant 4 years ago. He has a shunt in his right upper arm) Endocrine: Yes: Diabetes Mellitus - Past Surgical History Past Surgical History: Yes: CABG, Kidney Transplant - Alcohol/Substance Use Hx Alcohol Use: No - Smoking History Smoking history: Never smoked Have you smoked in the past 12 months: No Aproximately how many cigarettes per day: 0 - Social History Usual Living Arrangement: Alone ADL: Support Services History of Recent Travel: No Home Medications - Allergies Allergies/Adverse Reactions: Allergies Allergy/AdvReac Type Severity Reaction Status Date / Time No Known Drug Allergies Allergy Verified 01/01/17 16:07 - Home Medications Home Medications: Ambulatory Orders Aspirin [ASA -] 81 mg PO HS 10/31/12 Tamsulosin HCl 0.4 mg PO HS 10/31/12 Atorvastatin Calcium [Lipitor] 10 mg PO HS 06/18/13 Tacrolimus [Prograf] 1 mg PO BID 04/08/16 Clopidogrel Bisulfate [Plavix -] 75 mg PO DAILY #30 tablet 04/13/16 Amlodipine Besylate 10 mg PO DAILY 04/28/16 Acetaminophen [Tylenol .Regular Strength -] 650 mg PO Q6H PRN #0 tablet Carvedilol [Coreg -] 25 mg PO BID tablet 05/03/16 Docusate Sodium [Colace -] 100 mg PO BID PRN #0 capsule 05/03/16 Hydralazine HCl [Apresoline -] 25 mg PO TID tablet 05/03/16 Oxycodone HCl [Roxicodone -] 5 mg PO Q6H PRN #0 tablet MDD 4 05/03/16 Collagenase Clostridium Hist. [Santyl -] 1 applic TP DAILY #30 applic 08/11/16 Insulin (Levemir) [Levemir Vial] 25 units SQ AM ml 09/28/16 Insulin Sliding Scale [Novolog Vial Sliding Scale -] 1 vial SQ ACHS units 09/28 Mycophenolate Sodium [Myfortic -] 360 mg PO BID tablet. 09/28/16 Prednisone [Deltasone -] 5 mg PO DAILY tablet 10/01/16 Lactobacillus Acidophilus [Bacid -] 1 each PO DAILY #10 tab 11/01/16 Family Disease History - Family Disease History Family History: Unable to Obtain (intubated sedated) Review of Systems Unable to obtain ROS, reason: intubated , not following commands Physical Exam Vital Signs: Vital Signs Temperature 98.6 F 01/01/17 21:55 Pulse Rate 82 01/02/17 00:31 Respiratory Rate 12 01/02/17 01:35 Blood Pressure 114/57 01/02/17 00:31 O2 Sat by Pulse Oximetry (%) 95 01/01/17 21:55 Constitutional: Yes: Well Nourished, No Distress Eyes: Yes: Conjunctiva Clear, Cataracts, PERRL at 3mm HENT: Yes: Normocephalic Neck: Yes: Trachea Midline. No: Lymphadenopathy Cardiovascular: Yes: Regular Rate and Rhythm, Murmur Respiratory: Yes: CTA Bilaterally, Mechanically Ventilated. No: Accessory Muscle Use Gastrointestinal: Yes: Normal Bowel Sounds, Soft ...Rectal Exam: Yes: Deferred Renal/: Yes: WNL Breast(s): Yes: WNL Musculoskeletal: Yes: WNL Extremities: Yes: WNL Edema: No Peripheral Pulses WNL: Yes Integumentary: Yes: WNL Wound/Incision: Yes: Other (old scar from kidney transplant) Neurological: Yes: Alert, Cran Nerves II-XII Intact. No: Facial Droop ...Motor Strength: WNL Psychiatric: Yes: WNL Labs: CBC, BMP 01/01/17 17:22 CBCD WBC 14.6 K/mm3 (4.0-10.0) H D 01/01/17 17:22 RBC 5.32 M/mm3 (4.00-5.60) D 01/01/17 17:22 Hgb 15.5 GM/dL (11.7-16.9) D 01/01/17 17:22 Hct 47.5 % (35.4-49) D 01/01/17 17:22 MCV 89.3 fl (80-96) 01/01/17 17:22 MCHC 32.6 g/dl (32.0-35.9) 01/01/17 17:22 RDW 14.7 % (11.9-15.9) 01/01/17 17:22 Plt Count 218 K/MM3 (134-434) D 01/01/17 17:22 MPV 9.3 fl (7.5-11.1) 01/01/17 17:22 CMP Sodium 134 mmol/L (136-145) L 01/01/17 17:12 Potassium 5.3 mmol/L (3.5-5.1) H 01/01/17 17:12 Chloride 96 mmol/L (98-107) L 01/01/17 17:12 Carbon Dioxide 25 mmol/L (21-32) 01/01/17 17:12 Anion Gap 13 (8-16) 01/01/17 17:12 BUN 31 mg/dL (7-18) H 01/01/17 17:12 Creatinine 1.5 mg/dL (0.7-1.3) H D 01/01/17 17:12 Creat Clearance w eGFR 45.75 (>60) 01/01/17 17:12 Calcium 9.8 mg/dL (8.5-10.1) D 01/01/17 17:12 Total Bilirubin 0.7 mg/dL (0.2-1.0) D 01/01/17 17:12 AST 20 U/L (15-37) D 01/01/17 17:12 ALT 17 U/L (12-78) 01/01/17 17:12 Alkaline Phosphatase 91 U/L (45-117) 01/01/17 17:12 Total Protein 6.8 g/dl (6.4-8.2) D 01/01/17 17:12 Albumin 3.8 g/dl (3.4-5.0) D 01/01/17 17:12 Imaging - Results Chest X-ray: Image Reviewed (ETT in good position, no infiltrate) Cat Scan: Report Reviewed (Old lacunar infarct, no ICH or acute CVA) Problem List - Problems (1) Acute renal injury Code(s): N17.9 - ACUTE KIDNEY FAILURE, UNSPECIFIED (2) Hyperglycemia Code(s): R73.9 - HYPERGLYCEMIA, UNSPECIFIED (3) Leukocytosis Code(s): D72.829 - ELEVATED WHITE BLOOD CELL COUNT, UNSPECIFIED Qualifiers: Leukocytosis type: unspecified Qualified Code(s): D72.829 - Elevated white blood cell count, unspecified (4) H/O kidney transplant Code(s): Z94.0 - KIDNEY TRANSPLANT STATUS (5) Alteration consciousness Code(s): R40.4 - TRANSIENT ALTERATION OF AWARENESS Assessment/Plan PULM/CCM Pt seen and examined in ICU A/ 76 y/o man hx of HTN, HL, DM, ESRD s/p renal transplant, p/w hyperglycemia, dizziness had acute mental status change in ED prompting intubation and CT head x 2 which were unrevealing. Non convulsive status and PRESS are high on differential. P/ -cont mech ventilation, if awake/protecting airway can extubate as was for airway protection only -EEG to r/o NCS when available -hold and check tacro level -MRI once extubated -neuro consult if reoccurs or further imaging is revealing -ampicillin for possible UTI, has had + Ucxl in past despite Neg UA. -glycemic control -DVT/GI prophy Darryn Mora ACNP [id number] 35min CCT
[2017-01-02] MEDS: HEPARIN NA (PORCINE) 5,000 UNITS/ML 1ML VIAL SQ SCH ×2 (06:30→14:26)
[2017-01-02] MEDS: hydrALAZINE HCL 25 MG TABLET (FP) PO SCH ×3 (06:30→22:00)
[2017-01-02 06:49] LABS: BASOPHIL 0.7 % (0-2.0); EOSINOPHIL 1.6 % (0-4.5); MCH 29.4 pg (25.7-33.7); MCHC 32.8 g/dl (32.0-35.9); MEAN CELL VOLUME 89.7 fl (80-96); MEAN PLT VOLUME 9.3 fl (7.5-11.1); NEUTROPHILS 72.8 % (42.8-82.8); PLATELET COUNT 210 K/MM3 (134-434); RDW 14.8 % (11.9-15.9); WHITE BLOOD COUNT 14.2 K/mm3 (4.0-10.0)
[2017-01-02] MEDS: INSULIN SLIDING SCALE (NOVOLOG) 1 VIAL SQ SCH ×4 (07:00→23:00)
[2017-01-02] MEDS ORDERED: INSULIN DETEMIR 100 UNITS/ML MDV SQ SCH (07:00)
[2017-01-02 07:06] LABS: ALBUMIN 3.7 g/dl (3.4-5.0); BILIRUBIN,TOTAL 0.7 mg/dL (0.2-1.0); CALCIUM 9.1 mg/dL (8.5-10.1); CREATININE 1.3 mg/dL (0.7-1.3); MAGNESIUM 1.7 mg/dL (1.8-2.4); PHOSPHOROUS 3.3 mg/dL (2.5-4.9); TOT PROT 6.5 g/dl (6.4-8.2)
[2017-01-02 07:07] LABS: TROPONIN I 0.03 ng/ml (0.00-0.05)
[2017-01-02] MEDS ORDERED: INFLUENZA VACCINE 45 MCG/0.5 ML (MDV 16-17) IM ONE (09:00)
[2017-01-02] MEDS: MYCOPHENOLATE SODIUM 360 MG TABLET.DR PO SCH ×2 (09:55→22:00)
[2017-01-02] MEDS: TACROLIMUS ANHYDROUS 1 MG CAPSULE (NF) PO SCH ×2 (09:56→22:00)
[2017-01-02] MEDS: CARVEDILOL 25 MG TABLET (FP) PO SCH ×2 (09:56→22:00)
[2017-01-02] MEDS ORDERED: LACTOBACILLUS ACIDOPHILUS 1 EACH TAB (FP) PO SCH (10:00)
[2017-01-02] MEDS ORDERED: predniSONE 5 MG TABLET (UD) PO SCH (10:00)
[2017-01-02] MEDS ORDERED: CLOPIDOGREL BISULFATE 75 MG TABLET (FP) PO SCH (10:00)
[2017-01-02] MEDS ORDERED: COLLAGENASE CLOSTRIDIUM HIST. 30 GRAMS TUBE TP SCH (10:00)
[2017-01-02] MEDS ORDERED: amLODIPine BESYLATE 10 MG TABLET (FP) PO SCH (10:00)
--- NOTE | 2017-01-02 10:25 | EKG ---
Test Reason : Blood Pressure : / mmHG Vent. Rate : 076 BPM Atrial Rate : 076 BPM P-R Int : 156 ms QRS Dur : 150 ms QT Int : 428 ms P-R-T Axes : 031 -63 127 degrees QTc Int : 481 ms POOR DATA QUALITY, INTERPRETATION MAY BE ADVERSELY AFFECTED NORMAL SINUS RHYTHM RIGHT BUNDLE BRANCH BLOCK LEFT ANTERIOR FASCICULAR BLOCK BIFASCICULAR BLOCK T WAVE ABNORMALITY, CONSIDER LATERAL ISCHEMIA ABNORMAL ECG WHEN COMPARED WITH ECG OF 28-OCT-2016 13:30, T WAVE INVERSION NOW EVIDENT IN LATERAL LEADS Confirmed by EDGAR DE LA TORRE MD ([id number]) on 01/02/2017 10:24:33 AM Referred By: Confirmed By:EDGAR DE LA TORRE MD
--- NOTE | 2017-01-02 10:25 | PN ---
Progress Note (short form) - Note Progress Note: Subjective: unable to obtain hx due to intubation. no events in ICU last night , but on floor [facility] was called on pt due to unresponsiveness with RUE weakness, intubated for airway protection and transferred to ICU, shortly after that pt became awake and could move all his extremities. spoke to daughter on phon e, not sure about exact reason for admission but food delivery darryn was concerned about him . Objective: Vital Signs: Last Vital Signs Temp Pulse Resp BP Pulse Ox 100.4 F H 78 14 151/58 100 01/02/17 10:00 01/02/17 10:00 01/02/17 10:00 01/02/17 10:00 01/02/17 04:15 I&O: Intake & Output 12/30/16 12/31/16 01/01/17 01/02/17 23:59 23:59 23:59 23:59 Intake Total 250 Balance 250 Weight 140 lb 156 lb Laboratory Results - last 24 hr 01/01/17 01/01/17 01/01/17 16:30 17:12 17:12 WBC RBC Hgb Hct MCV MCHC RDW Plt Count MPV Neutrophils % Lymphocytes % Monocytes % Eosinophils % Basophils % INR PTT (Actin FS) Anticoagulation Therapy Puncture Site ABG pH ABG pCO2 at Pt Temp ABG pO2 at Pt Temp ABG HCO3 ABG O2 Sat (Measured) ABG O2 Content ABG Base Excess Patrice Test O2 Delivery Device Oxygen Flow Rate Vent Mode Vent Rate Mechanical Rate PEEP Pressure Support Vent Sodium 134 L Potassium 5.3 H Chloride 96 L Carbon Dioxide 25 Anion Gap 13 BUN 31 H Creatinine 1.5 H D Creat Clearance w eGFR 45.75 POC Glucometer Random Glucose 329 H* Lactic Acid Calcium 9.8 D Phosphorus Magnesium Total Bilirubin 0.7 D AST 20 D ALT 17 Alkaline Phosphatase 91 Creatine Kinase Creatine Kinase Index CK-MB (CK-2) CK-MB (CK-2) Rel Index Troponin I Total Protein 6.8 D Albumin 3.8 D Triglycerides Cholesterol Total LDL Cholesterol HDL Cholesterol TSH Urine Color Ltyellow Urine Appearance Clear Urine pH 6.0 Ur Specific [place] 1.017 Urine Protein 1+ H Urine Glucose (UA) 3+ H Urine Ketones 1+ H Urine Blood Negative Urine Nitrite Negative Urine Bilirubin Negative Urine Urobilinogen Negative Ur Leukocyte Esterase Negative Urine RBC <1 Urine WBC <1 Hyaline Casts 2 Urine Mucus Rare Acetone, Qual Positive small 1+ 01/01/17 01/01/17 01/01/17 17:12 17:12 17:22 WBC 14.6 H D RBC 5.32 D Hgb 15.5 D Hct 47.5 D MCV 89.3 MCHC 32.6 RDW 14.7 Plt Count 218 D MPV 9.3 Neutrophils % 72.4 Lymphocytes % 17.4 Monocytes % 8.8 Eosinophils % 0.7 Basophils % 0.7 INR PTT (Actin FS) Anticoagulation Therapy Puncture Site ABG pH ABG pCO2 at Pt Temp ABG pO2 at Pt Temp ABG HCO3 ABG O2 Sat (Measured) ABG O2 Content ABG Base Excess Patrice Test O2 Delivery Device Oxygen Flow Rate Vent Mode Vent Rate Mechanical Rate PEEP Pressure Support Vent Sodium Potassium Chloride Carbon Dioxide Anion Gap BUN Creatinine Creat Clearance w eGFR POC Glucometer Random Glucose Lactic Acid Calcium Phosphorus Magnesium Total Bilirubin AST ALT Alkaline Phosphatase Creatine Kinase 394 H D Creatine Kinase Index 1.3 CK-MB (CK-2) 5.120 H CK-MB (CK-2) Rel Index Cancelled Troponin I 0.03 D Total Protein Albumin Triglycerides Cholesterol Total LDL Cholesterol HDL Cholesterol TSH Urine Color Urine Appearance Urine pH Ur Specific [place] Urine Protein Urine Glucose (UA) Urine Ketones Urine Blood Urine Nitrite Urine Bilirubin Urine Urobilinogen Ur Leukocyte Esterase Urine RBC Urine WBC Hyaline Casts Urine Mucus Acetone, Qual 01/01/17 01/02/17 01/02/17 19:39 01:03 02:00 WBC RBC Hgb Hct MCV MCHC RDW Plt Count MPV Neutrophils % Lymphocytes % Monocytes % Eosinophils % Basophils % INR 1.05 PTT (Actin FS) 28.2 Anticoagulation Therapy Puncture Site Left radial ABG pH 7.39 ABG pCO2 at Pt Temp 45.9 H ABG pO2 at Pt Temp 358.0 H* ABG HCO3 27.4 H ABG O2 Sat (Measured) 99.6 H* ABG O2 Content 19.8 ABG Base Excess 2.4 H Patrice Test Positive O2 Delivery Device Nonrebreather Oxygen Flow Rate 100 Vent Mode Vent Rate Mechanical Rate PEEP 0.0 Pressure Support Vent Sodium Potassium Chloride Carbon Dioxide Anion Gap BUN Creatinine Creat Clearance w eGFR POC Glucometer [phone] Random Glucose Lactic Acid Calcium Phosphorus Magnesium Total Bilirubin AST ALT Alkaline Phosphatase Creatine Kinase Creatine Kinase Index CK-MB (CK-2) CK-MB (CK-2) Rel Index Troponin I Total Protein Albumin Triglycerides Cholesterol Total LDL Cholesterol HDL Cholesterol TSH Urine Color Urine Appearance Urine pH Ur Specific [place] Urine Protein Urine Glucose (UA) Urine Ketones Urine Blood Urine Nitrite Urine Bilirubin Urine Urobilinogen Ur Leukocyte Esterase Urine RBC Urine WBC Hyaline Casts Urine Mucus Acetone, Qual 01/02/17 01/02/17 01/02/17 02:14 02:14 02:14 WBC RBC Hgb Hct MCV MCHC RDW Plt Count MPV Neutrophils % Lymphocytes % Monocytes % Eosinophils % Basophils % INR PTT (Actin FS) Anticoagulation Therapy Puncture Site ABG pH ABG pCO2 at Pt Temp ABG pO2 at Pt Temp ABG HCO3 ABG O2 Sat (Measured) ABG O2 Content ABG Base Excess Patrice Test O2 Delivery Device Oxygen Flow Rate Vent Mode Vent Rate Mechanical Rate PEEP Pressure Support Vent Sodium 140 Potassium 4.1 D Chloride 105 Carbon Dioxide 25 Anion Gap 10 BUN 25 H Creatinine 1.2 Creat Clearance w eGFR 59.18 POC Glucometer Random Glucose 93 D Lactic Acid 1.944 Calcium 7.7 L D Phosphorus Magnesium Total Bilirubin 0.6 AST 19 ALT 12 D Alkaline Phosphatase 62 D Creatine Kinase Creatine Kinase Index CK-MB (CK-2) CK-MB (CK-2) Rel Index Troponin I 0.03 Total Protein 5.3 L D Albumin 2.9 L D Triglycerides Cholesterol Total LDL Cholesterol HDL Cholesterol TSH Urine Color Urine Appearance Urine pH Ur Specific [place] Urine Protein Urine Glucose (UA) Urine Ketones Urine Blood Urine Nitrite Urine Bilirubin Urine Urobilinogen Ur Leukocyte Esterase Urine RBC Urine WBC Hyaline Casts Urine Mucus Acetone, Qual 01/02/17 01/02/17 01/02/17 02:41 03:10 05:20 WBC 14.2 H RBC 5.06 Hgb 14.9 Hct 45.4 MCV 89.7 MCHC 32.8 RDW 14.8 Plt Count 210 MPV 9.3 Neutrophils % 72.8 Lymphocytes % 15.7 Monocytes % 9.2 Eosinophils % 1.6 D Basophils % 0.7 INR PTT (Actin FS) Anticoagulation Therapy Y Puncture Site Left radial ABG pH 7.46 H ABG pCO2 at Pt Temp 38.0 ABG pO2 at Pt Temp 343.0 H* ABG HCO3 26.8 H ABG O2 Sat (Measured) 99.7 H* ABG O2 Content 19.8 ABG Base Excess 3.4 H Patrice Test Positive O2 Delivery Device Vent Oxygen Flow Rate 100 Vent Mode A/c Vent Rate 12 Mechanical Rate Yes PEEP 0.0 Pressure Support Vent 450 Sodium Potassium Chloride Carbon Dioxide Anion Gap BUN Creatinine Creat Clearance w eGFR POC Glucometer Random Glucose Lactic Acid Calcium Phosphorus Magnesium Total Bilirubin AST ALT Alkaline Phosphatase Creatine Kinase Creatine Kinase Index CK-MB (CK-2) CK-MB (CK-2) Rel Index Troponin I Total Protein Albumin Triglycerides Cholesterol Total LDL Cholesterol HDL Cholesterol TSH 4.21 H Urine Color Urine Appearance Urine pH Ur Specific [place] Urine Protein Urine Glucose (UA) Urine Ketones Urine Blood Urine Nitrite Urine Bilirubin Urine Urobilinogen Ur Leukocyte Esterase Urine RBC Urine WBC Hyaline Casts Urine Mucus Acetone, Qual 01/02/17 01/02/17 01/02/17 05:20 05:20 06:26 WBC RBC Hgb Hct MCV MCHC RDW Plt Count MPV Neutrophils % Lymphocytes % Monocytes % Eosinophils % Basophils % INR PTT (Actin FS) Anticoagulation Therapy Puncture Site ABG pH ABG pCO2 at Pt Temp ABG pO2 at Pt Temp ABG HCO3 ABG O2 Sat (Measured) ABG O2 Content ABG Base Excess Patrice Test O2 Delivery Device Oxygen Flow Rate Vent Mode Vent Rate Mechanical Rate PEEP Pressure Support Vent Sodium 136 Potassium 4.8 Chloride 101 Carbon Dioxide 24 Anion Gap 11 BUN 28 H Creatinine 1.3 Creat Clearance w eGFR 53.96 POC Glucometer 121.99913 Random Glucose 119 H D Lactic Acid 1.936 Calcium 9.1 Phosphorus 3.3 Magnesium 1.7 L Total Bilirubin 0.7 AST 23 D ALT 16 D Alkaline Phosphatase 80 D Creatine Kinase Creatine Kinase Index CK-MB (CK-2) CK-MB (CK-2) Rel Index Troponin I 0.03 Total Protein 6.5 D Albumin 3.7 D Triglycerides 117 Cholesterol 141 D Total LDL Cholesterol 67 HDL Cholesterol 63 H D TSH Urine Color Urine Appearance Urine pH Ur Specific [place] Urine Protein Urine Glucose (UA) Urine Ketones Urine Blood Urine Nitrite Urine Bilirubin Urine Urobilinogen Ur Leukocyte Esterase Urine RBC Urine WBC Hyaline Casts Urine Mucus Acetone, Qual Physical Exam: NAD , intubated not sedated, awake , shakes his head yes and no but does not follow commands HEENT: round L pupil, reactive to light, R pupil is smaller and minimally reactive to light , slightly deformed. no facial droop noted , has tube and tube protector though . no JVD CV: RRR, no MRG Lungs : CTAB ext : no edema Abd : soft, NT, ND , NL BS neuro , very limited , and not able to evaluate . pupils and facial symmetry as above . does not follow commands . moves his legs in bed Labs: Imaging: CT head reviewed, cxray reviewed. Assessment/Plan: 76 y/o gentleman with h/o HTN, ESRD s/p renal transplant, DM , CAD s/p CABG recurrent UTIs , recent admission with falls , treated for Enterococcus faecalis who was brought here due to recurrent falls . 1- Falls, unresponsiveness last night . no clear etiology , could be due to infection ( urine vs bacteremia , vs other ) , or TIA . he has forgetfulness at baseline an will be hard to collect info from him. - try to extubate today - MRI of brain today . stents were placed > 15 ys ago per daughter . -send cx and try to treat /diagnose any infection 2- Fever: just started developing fever in ICU. Urine is clean but in past admission grew Enterococcus Faecalis despite that. He is a renal transplant pt and immunocompromised. We need to be aggressive. Cxray with no infiltrate . H e might have aspirated during intubation - check flu swab - send urine cx and blood cx . Unfortunately he was given ampicillin last night - will broaden the ABx coverage to vanc and zosyn pending cx results . previous cxs in previous admissions noted 3- CHUCK : resolved with IV hydration . - cont IVF ( low dose ) for today , will probably dc tomorrow - continue renal transplant meds ( tacrulimus, mycophenolate and prednisone ) - if cr increases again will get renal involved . 4- DM : with severe hyperglycemia last night . now improved - cont SSI . - family to bring his med list . - supposedly on levemir at home per last dc summary. - will place on low dose levemir in mean time 5- HTN: BP 179 this am . - give norvasc , HZN, and coreg at home doses 5- CAD : s/p CABG . - cont coreg , ASA , Plavix. 6- DVT px ICU level of care d/w Dr. Fischer Visit type - Emergency Visit Emergency Visit: Yes ED Registration Date: 01/01/17 Care time: The patient presented to the Emergency Department on the above date and was hospitalized for further evaluation of their emergent condition. - New Patient This patient is new to me today: Yes Date on this admission: 01/02/17 - Critical Care Critical Care patient: Yes Total Critical Care Time (in minutes): 50 Critical Care Statement: The care of this patient involved high complexity decision making to prevent further life threatening deterioration of the patient 's condition and/or to evalute & treat vital organ system(s) failure or risk of failure.
[2017-01-02] MEDS ORDERED: PT OWN MED DRAWER 7, Y5N ONE (10:27)
--- NOTE | 2017-01-02 10:50 | PN ---
Progress Note (short form) - Note Progress Note: PULMONARY/CCM Pt seen and examined in the ICU. Remains intubated but more awake, intermittently following commands. Tolerating CPAP/PS trials. Febrile this AM. Last Vital Signs Temp Pulse Resp BP Pulse Ox 100.4 F H 78 14 151/58 100 01/02/17 10:00 01/02/17 10:00 01/02/17 10:00 01/02/17 10:00 01/02/17 04:15 Intake & Output 12/30/16 12/31/16 01/01/17 01/02/17 23:59 23:59 23:59 23:59 Intake Total 250 Balance 250 Weight 140 lb 156 lb Gen: intubated, breathing nonlabored Heart: RRR Lung: decreased breath sounds at the bases Abd: soft, nontender Ext: no edema CBC, BMP 01/02/17 05:20 01/02/17 05:20 Active Medications Amlodipine Besylate (Norvasc -) 10 mg PO DAILY [facility] Last Admin: 01/02/17 09:56 Dose: 10 mg Aspirin (Asa -) 81 mg PO HS [facility] Last Admin: 01/01/17 23:06 Dose: 81 mg Atorvastatin Calcium (Lipitor -) 10 mg PO HS [facility] Last Admin: 01/01/17 23:07 Dose: 10 mg Carvedilol (Coreg -) 25 mg PO BID [facility] Last Admin: 01/02/17 09:56 Dose: 25 mg Clopidogrel Bisulfate (Plavix -) 75 mg PO DAILY [facility] Last Admin: 01/02/17 09:56 Dose: 75 mg Collagenase (Santyl -) 1 applic TP DAILY [facility] Docusate Sodium (Colace -) 100 mg PO BID PRN PRN Reason: CONSTIPATION Heparin Sodium (Porcine) (Heparin -) 5,000 unit SQ TID [facility] Last Admin: 01/02/17 06:30 Dose: 5,000 unit Hydralazine HCl (Apresoline -) 25 mg PO TID [facility] Last Admin: 01/02/17 06:30 Dose: 25 mg Ampicillin Sodium 1 gm/ Sodium (Chloride) 100 mls @ 200 mls/hr IVPB Q6H-IV [facility] Last Admin: 01/02/17 03:30 Dose: 200 mls/hr Sodium Chloride (Normal Saline -) 1,000 mls @ 50 mls/hr IV ASDIR [facility] Last Admin: 01/02/17 04:00 Dose: 50 mls/hr Insulin Aspart (Novolog Vial Sliding Scale -) 1 vial SQ ACHS [facility] PRN Reason: Protocol Last Admin: 01/02/17 07:00 Dose: Not Given Insulin Detemir (Levemir Vial) 25 units SQ AM [facility] Last Admin: 01/02/17 07:00 Dose: Not Given Lactobacillus Acidophilus (Bacid -) 1 tab PO DAILY [facility] Last Admin: 01/02/17 09:55 Dose: 1 tab Mycophenolate Sodium (Mycophenolic Acid) 360 mg PO BID [facility] Last Admin: 01/02/17 09:55 Dose: 360 mg Prednisone (Deltasone -) 5 mg PO DAILY [facility] Tacrolimus (Prograf (Non-Formulary)) 1 mg PO BID [facility] Last Admin: 01/02/17 09:56 Dose: 1 mg Tamsulosin HCl (Flomax -) 0.4 mg PO HS [facility] Last Admin: 01/01/17 23:06 Dose: 0.4 mg A/P Altered Mental Status Acute Respiratory Failure ESRD s/p renal transplant on immunosuppressives CAD s/p CABG LV Diastolic Dysfunction HTN DM Hyperlipidemia r/o CVA/TIA r/o seizures - wean to extubate - start empiric antibiotics for aspiration - shrestha culture - MRI once extubated - glucose control - aspiration precautions once extubated - BP control - DVT prophylaxis
[2017-01-02] MEDS ORDERED: ACETAMINOPHEN 650 MG SUPP.RECT PR ONE (10:52)
--- NOTE | 2017-01-02 11:13 | PN ---
Progress Note (short form) - Note Progress Note: 76 yo with acute respiratory distress and LOC thought to have had a stroke with anisocoria noted with repeat CT neg for acute infarct. Chart review and discussion with Dr Fischer patient stable with MRI pending. Neurology consult deferred to 01/03/16 due to poor travel conditions and will call if needed.
[2017-01-02] MEDS: PIPERACILLIN/TAZOB 3.375 GM/50 ML PRE-DOCKED IVPB SCH ×2 (11:50→17:15)
[2017-01-02] MEDS ORDERED: VANCOMYCIN 1 GRAM (PRE-DOCKED) 250 ML IVPB ONE (12:00)
[2017-01-02] MEDS: INSULIN DETEMIR 100 UNITS/ML MDV SQ SCH (13:06)
[2017-01-02] MEDS ORDERED: DOCUSATE SODIUM 100 MG CAPSULE (FP) PO PRN (14:05)
[2017-01-02] MEDS: ATORVASTATIN CA 10 MG TABLET (FP) PO SCH (22:00)
[2017-01-02] MEDS: ASPIRIN 81 MG CHEWABLE TABLETS PO SCH (22:00)
[2017-01-02] MEDS: TAMSULOSIN HCL 0.4 MG CAP.ER.24H (FP) PO SCH (22:00)
[2017-01-02] MEDS ORDERED: HEPARIN NA (PORCINE) 5,000 UNITS/ML 1ML VIAL SQ SCH (22:00)
[2017-01-02] MEDS ORDERED: HEPARIN NA (PORCINE) 5,000 UNITS/ML 1ML VIAL IVPUSH PRN ×2 (22:07)
[2017-01-02] MEDS ORDERED: HEPARIN INFUSION - 500 ML IVPB SCH ×2 (22:15)
[2017-01-02] MEDS: HEPARIN INFUSION - 500 ML IVPB SCH (22:45)
[2017-01-02] MEDS ORDERED: HEMOQUE TEST 1 EACH EACH ONE (23:49)
--- NOTE | 2017-01-03 01:40 | CONSULT ---
Consult Consult Specialty:: Neurology - History of Present Illness History of Present Illness: 76 yo with acute respiratory distress and LOC thought to have had a stroke with anisocoria noted with repeat CT neg for acute infarct. Pt currently follows commands and moves all extremities at command. He was previously intubated and treated for respiratory distress. - Past Medical History Cardio/Vascular: Yes: CAD (CABG), HTN, Other (PAD, heel osteo in 04/05) Renal/: Yes: Renal Failure, Hemodialysis (H/O), Other (S/P Kidnet tranplant 4 years ago. He has a shunt in his right upper arm) Endocrine: Yes: Diabetes Mellitus - Past Surgical History Past Surgical History: Yes: CABG, Kidney Transplant - Alcohol/Substance Use Hx Alcohol Use: No - Smoking History Smoking history: Never smoked Have you smoked in the past 12 months: No Aproximately how many cigarettes per day: 0 - Social History Usual Living Arrangement: Alone ADL: Support Services History of Recent Travel: No Home Medications - Allergies Allergies/Adverse Reactions: Allergies Allergy/AdvReac Type Severity Reaction Status Date / Time No Known Drug Allergies Allergy Verified 01/01/17 16:07 - Home Medications Home Medications: Ambulatory Orders Aspirin [ASA -] 81 mg PO HS 10/31/12 Tamsulosin HCl 0.4 mg PO HS 10/31/12 Atorvastatin Calcium [Lipitor] 10 mg PO HS 06/18/13 Tacrolimus [Prograf] 1 mg PO BID 04/08/16 Clopidogrel Bisulfate [Plavix -] 75 mg PO DAILY #30 tablet 04/13/16 Amlodipine Besylate 10 mg PO DAILY 04/28/16 Acetaminophen [Tylenol .Regular Strength -] 650 mg PO Q6H PRN #0 tablet Carvedilol [Coreg -] 25 mg PO BID tablet 05/03/16 Docusate Sodium [Colace -] 100 mg PO BID PRN #0 capsule 05/03/16 Hydralazine HCl [Apresoline -] 25 mg PO TID tablet 05/03/16 Oxycodone HCl [Roxicodone -] 5 mg PO Q6H PRN #0 tablet MDD 4 05/03/16 Collagenase Clostridium Hist. [Santyl -] 1 applic TP DAILY #30 applic 08/11/16 Insulin (Levemir) [Levemir Vial] 25 units SQ AM ml 09/28/16 Insulin Sliding Scale [Novolog Vial Sliding Scale -] 1 vial SQ ACHS units 09/28 Mycophenolate Sodium [Myfortic -] 360 mg PO BID tablet. 09/28/16 Prednisone [Deltasone -] 5 mg PO DAILY tablet 10/01/16 Lactobacillus Acidophilus [Bacid -] 1 each PO DAILY #10 tab 11/01/16 Physical Exam Vital Signs: Vital Signs Temperature 100.3 F H 01/02/17 22:00 Pulse Rate 82 01/03/17 00:00 Respiratory Rate 21 01/03/17 00:00 Blood Pressure 141/32 01/03/17 00:00 O2 Sat by Pulse Oximetry (%) 98 01/02/17 13:09 HENT: Yes: Atraumatic, Normocephalic (opens eyes to command and follows instructions to move extremities. DTR 1/4 with downgoing plantar responses.) Labs: CBC, BMP 01/02/17 05:20 01/02/17 05:20 Assessment/Plan Post respiratory distress with no focal neurological deficits MRI of brain for exclusion of brainstem ischemia
[2017-01-03] MEDS: PIPERACILLIN/TAZOB 3.375 GM/50 ML PRE-DOCKED IVPB SCH ×3 (01:46→18:44)
[2017-01-03 06:20] LABS: BASOPHIL 0.4 % (0-2.0); EOSINOPHIL 0.8 % (0-4.5); MCH 29.5 pg (25.7-33.7); MCHC 33.3 g/dl (32.0-35.9); MEAN CELL VOLUME 88.7 fl (80-96); MEAN PLT VOLUME 9.3 fl (7.5-11.1); NEUTROPHILS 72.9 % (42.8-82.8); PLATELET COUNT 175 K/MM3 (134-434); RDW 14.7 % (11.9-15.9)
[2017-01-03] MEDS: INSULIN DETEMIR 100 UNITS/ML MDV SQ SCH (06:21)
[2017-01-03] MEDS: INSULIN SLIDING SCALE (NOVOLOG) 1 VIAL SQ SCH ×4 (06:21→22:00)
[2017-01-03] MEDS: hydrALAZINE HCL 25 MG TABLET (FP) PO SCH ×2 (06:21→17:13)
[2017-01-03 06:48] LABS: CALCIUM 8.3 mg/dL (8.5-10.1); CREATININE 1.4 mg/dL (0.7-1.3); MAGNESIUM 1.6 mg/dL (1.8-2.4); PHOSPHOROUS 3.7 mg/dL (2.5-4.9)
--- NOTE | 2017-01-03 08:51 | PN ---
Physical Exam: SUBJECTIVE: Patient seen and examined did not answer questions, did not follow my commands. As per overnight nurse, he was alert, awake and was answering her questions, told her his profession. jul 2016 last visit at [facility] renal transplant 2012 bypass 2004; 4-vessel CABG 2010, cardiac cath in 2010 OBJECTIVE: Vital Signs Period Temp Pulse Resp BP Sys/Mendoza Pulse Ox Last 24 Hr 99.2 F-100.4 F 66-90 14-24 94-153/31-82 97-100 GENERAL: The patient is awake, alert, in no acute distress. HEAD: Normal with no signs of trauma. EYES: right pupil fixed and constricted to direct and indirect light stimuli. Left reactive to light. extraocular movements intact, sclera anicteric, conjunctiva slightly cloudy in right eye, clear in left. No ptosis. ENT: Ears normal, nares patent, oropharynx clear without exudates, dry mucous membranes. venti mask in place NECK: Trachea midline, full range of motion, supple. no thyromegaly, no LAD LUNGS: Breath sounds scattered rales and crackles b/l. HEART: mildly tachycardic(107) rate and regular rhythm, S1, S2 without murmur, rub or gallop. ABDOMEN: Soft, nontender, nondistended, normoactive bowel sounds, no guarding, no rebound EXTREMITIES:1+ pulses, warm, well-perfused, no edema. Psych: makes eye contact but does not respond to questions. Rodriguez in place - tea colored urine Laboratory Results - last 24 hr 01/02/17 01/02/17 01/02/17 12:19 14:30 14:30 WBC RBC Hgb Hct MCV MCHC RDW Plt Count MPV Neutrophils % Lymphocytes % Monocytes % Eosinophils % Basophils % PTT (Actin FS) Sodium Potassium Chloride Carbon Dioxide Anion Gap BUN Creatinine POC Glucometer [phone] Random Glucose Calcium Phosphorus Magnesium U Random Total Protein 44 H Ur Random Sodium 42 Ur Random Potassium 46.4 Ur Random Chloride 45 Urine Creatinine 150.0 Protein/Creatinin Ratio 0.29 01/02/17 01/03/17 01/03/17 14:30 05:00 05:00 WBC 16.0 H RBC 4.26 Hgb 12.6 D Hct 37.8 D MCV 88.7 MCHC 33.3 RDW 14.7 Plt Count 175 MPV 9.3 Neutrophils % 72.9 Lymphocytes % 16.9 Monocytes % 9.0 Eosinophils % 0.8 Basophils % 0.4 PTT (Actin FS) Sodium 138 Potassium 4.2 Chloride 100 Carbon Dioxide 27 Anion Gap 11 BUN 26 H Creatinine 1.4 H POC Glucometer Random Glucose 94 D Calcium 8.3 L Phosphorus 3.7 Magnesium 1.6 L U Random Total Protein Cancelled Ur Random Sodium Cancelled Ur Random Potassium Cancelled Ur Random Chloride Cancelled Urine Creatinine Cancelled Protein/Creatinin Ratio Cancelled 01/03/17 05:00 WBC RBC Hgb Hct MCV MCHC RDW Plt Count MPV Neutrophils % Lymphocytes % Monocytes % Eosinophils % Basophils % PTT (Actin FS) 89.8 H D Sodium Potassium Chloride Carbon Dioxide Anion Gap BUN Creatinine POC Glucometer Random Glucose Calcium Phosphorus Magnesium U Random Total Protein Ur Random Sodium Ur Random Potassium Ur Random Chloride Urine Creatinine Protein/Creatinin Ratio Active Medications Generic Name Dose Route Start Last Admin Trade Name Freq PRN Reason Stop Dose Admin Amlodipine Besylate 10 mg 01/03/17 10:00 Norvasc - PO DAILY HUGO Aspirin 81 mg 01/02/17 22:00 01/02/17 22:00 Asa - PO 81 mg HS HUGO Administration Atorvastatin Calcium 10 mg 01/02/17 22:00 01/02/17 22:00 Lipitor - PO 10 mg HS HUGO Administration Carvedilol 25 mg 01/02/17 22:00 01/02/17 22:00 Coreg - PO 25 mg BID HUGO Administration Clopidogrel Bisulfate 75 mg 01/03/17 10:00 Plavix - PO DAILY HUGO Collagenase 1 applic 01/03/17 10:00 Santyl - TP DAILY HUGO Docusate Sodium 100 mg 01/02/17 14:05 Colace - PO BID PRN CONSTIPATION Heparin Sodium (Porcine) 1,000 unit 01/02/17 22:07 Heparin - IVPUSH PRN PRN Heparin Heparin Sodium (Porcine) 5,000 unit 01/02/17 22:07 Heparin - IVPUSH PRN PRN Heparin Hydralazine HCl 25 mg 01/02/17 22:00 01/03/17 06:21 Apresoline - PO Not Given TID HUGO Sodium Chloride 1,000 mls @ 50 mls/hr 01/02/17 02:40 01/02/17 04:00 Normal Saline - IV 50 mls/hr ASDIR HUGO Administration Heparin Sodium/Dextrose 500 mls @ 20 mls/hr 01/03/17 01:25 01/02/17 22:45 Heparin Infusion - IVPB 20 mls/hr TITR HUGO Administration Protocol 1,000 UNITS/HR Insulin Aspart 1 vial 01/02/17 16:30 01/03/17 06:21 Novolog Vial Sliding Scale - SQ Not Given ACHS [facility] Protocol Insulin Detemir 15 units 01/02/17 11:30 01/03/17 06:21 Levemir Vial SQ 15 units AM HUGO Administration Lactobacillus Acidophilus 1 tab 01/03/17 10:00 Bacid - PO DAILY HUGO Mycophenolate Sodium 360 mg 01/02/17 22:00 01/02/17 22:00 Mycophenolic Acid PO 360 mg BID HUGO Administration Piperacillin Sod/Tazobactam Sod 3.375 gm 01/02/17 11:00 01/03/17 01:46 Zosyn 3.375gm Ivpb (Pre-Docked) IVPB 3.375 gm Q8H-IV HUGO Administration Protocol Prednisone 5 mg 01/03/17 10:00 Deltasone - PO DAILY HUGO Tacrolimus 1 mg 01/02/17 22:00 01/02/17 22:00 Prograf (Non-Formulary) PO 1 mg BID HUGO Administration Tamsulosin HCl 0.4 mg 01/02/17 22:00 01/02/17 22:00 Flomax - PO 0.4 mg HS HUGO Administration ASSESSMENT/PLAN: 76 yr old man with multiple co-morbidities BIBEMS when he was found down in his apartment assumed fall found to be be hyperglycemic with elevated white count and requiring intubation in ED due to unresponsivess. - discussed with renal transplant dr at [facility], no record of cardiac stents in their charts, pt's baseline Cr is 1.5, last visit was aug 2016. - discussed with [facility] medical records, will fax release form signed by daughter, they only keep records for 10 yrs, they will need to call storage to see if record is even available. - discussed with PMD, does not have details of type of stent - speech and swallow eval completed - dysphagia puree with nectar consistency - mental status continues to wax and wane, repeat head CT negative #Altered mental status with anisocoria s/p extubation- unknown etiology; infectious vs tacrolimus toxicity vs stroke - head ct x3 with chronic changes, no acute infarct or hemorrhage noted, MRI pending to r/o brainstem ischemia - plavix 75mg daily - tacrolimus level pending, carotid doppler pending read - saturating well on venti mask 40% - physical therapy evaluation #Fever with leucocytosis - broad sprectrum abx given immunocompromised status secondary to renal transplant immunosuppressive medications, zosyn 3.375 q8 - chest xray with increased perihilar markings, possible atelectasis or new infiltrate on right - ucx and bld cx pending #DVT - heparin drip protocol - to discuss IVC filter with family vs oral anticoagulation #CHUCK (baseline 0.9 09/2016) (s/p renal transplant) - improved with IVF, estelaley prerenal from poor po intake - tacrolimus, prednisone, mycophenolate - continue medications for immunosuppression, monitior BMP for acute rise - maintain rodriguez - if Cr rises will consult Dr. Perez #Hypomagnesiumia - replete #DM - uncontrolled, - ISS - levemir #HTN - hyralazine 25mg po bid - Norvasc 10mg po daily - coreg 25mg po bid #CAD s/p stents - coreg - ASA - plavix #DVT - heparin drip #Diet - diabetic diet - dysphagia diet nectar consistency Visit type - Emergency Visit Emergency Visit: No - New Patient This patient is new to me today: Yes Date on this admission: 01/03/17 - Critical Care Critical Care patient: Yes Total Critical Care Time (in minutes): 44 Critical Care Statement: The care of this patient involved high complexity decision making to prevent further life threatening deterioration of the patient 's condition and/or to evalute & treat vital organ system(s) failure or risk of failure.
--- NOTE | 2017-01-03 09:41 | CONSULT ---
Admitting History and Physical - Primary Care Physician PCP: Yaniv Caraballo - Admission History of Present Illness: Per neurology : "76 yo with acute respiratory distress and LOC thought to have had a stroke with anisocoria noted with repeat CT neg for acute infarct. Pt currently follows commands and moves all extremities at command. He was previously intubated and treated for respiratory distress. ..... Assessment/Plan Post respiratory distress with no focal neurological deficits MRI of brain for exclusion of brainstem ischemia" Selected Entries 01/02/17 01/02/17 01/02/17 03:12 03:51 07:00 Temperature 98 F 98.1 F 98.1 F 01/02/17 01/02/17 01/02/17 10:00 14:00 16:00 Temperature 100.4 F H 99.2 F 100.3 F H 01/02/17 01/03/17 01/03/17 22:00 02:00 06:00 Temperature 100.3 F H 100 F H 99.2 F Laboratory Tests 01/01/17 01/02/17 01/03/17 17:22 05:20 05:00 WBC 14.6 H D 14.2 H 16.0 H Was intubated x 1 day. Extubated by staff. PO diet has been held. 11/01/16 "Speech Evaluation, Impression/Plan Impression: Delayed cough after thin liquid observed intermittently. Pt denies dysphagia. - Dysphagia Impressions/Plan Dysphagia Impressions: Risk of Aspiration (silent? delayed cough. Observe for fever spikes, congestion,fever.), Ongoing Evaluation *Silent aspiration: cannot be R/O at bedside Recommendations: Modified Barium Swallow (if persistent cough/congestion/fever observed by staff.) - Recommendations Diet Consistency: Regular Medication Administration: Whole with water Liquids: Thin Liquids" History Source: Patient, Medical Record Limitations to Obtaining History: Clinical Condition (Pulled out NGT/IV. Confused,swatting at staff. For me he said, "I'm not guilty. I was in hospital and now they put me in intermediate." Reoriented with good recall after 5 min with distraction.) - Past Medical History Cardiovascular: Yes: CAD (CABG), HTN, Other (PAD, heel osteo in 04/05) Renal/: Yes: Renal Failure, Hemodialysis (H/O), Other (S/P Kidnet tranplant 4 years ago. He has a shunt in his right upper arm) Endocrine: Yes: Diabetes Mellitus - Past Surgical History Past Surgical History: Yes: CABG, Kidney Transplant - Advance Directives Advance Directives: Yes: Health Care Proxy - Smoking History Smoking history: Never smoked Have you smoked in the past 12 months: No Aproximately how many cigarettes per day: 0 - Alcohol/Substance Use Hx Alcohol Use: No - Social History ADL: Support Services History of Recent Travel: No History - Admission Reason For Visit: CHRONIC RENAL FAILURE LEUKOCYTOSIS (ESBL) - Diagnostics X-ray: Report Reviewed - General Mental Status: Awake and Alert, Able to Follow Commands, Intermittently Confused Attention: Intact Ability to Follow Directions: Good Head/Neck Control: Fair - Hearing Hearing: Functional Hearing: Normal Hearing Aide: No With Patient: No Speech Evaluation - Communication Primary Language: PERSIAN Secondary Language: MARSHALLESE (fluent) Communication: Yes: Within Normal Limits - Speech Production Able to Make Needs Known: Yes: WNL Intelligibility: Yes: Mildly Impaired - Speech Characteristics Voice Loudness: Normal Voice Pitch: Yes: Normal Voice Phonatory-based Quality: Yes: Dysphonia (mild) Speech Clarity: < 100% Nasal Resonance: Normal Articulation: Yes: Precise Rate of Speech: Intact (mildly slow) - Language/Auditory Comprehension Follows: Yes: 1 Stage Simple Commands Observation: Able to respond to yes/no queries: Yes, Yes/No Confusion: No, Comprehends Conversational Speech: Yes - Language/Verbal Expression Able to Communicate Wants and Needs: Yes: WNL Functional Communication Status: Yes: WNL - Swallow Evaluation/Bedside Assessment Current Nutritional Intake: NPO Oral Secretions: Yes: WFL Dentition: Yes: Adequate Facial Symmetry at Rest: Symmetrical Facial Symmetry on Retraction: Symmetrical Sensation: Normal Against Resistance Opening: Normal Against Resistance Closing: Normal Pucker Lips: Normal Smile: Normal Lingual Movement: Normal Lingual Speed of Movement: Normal Lingual Movement Strgth Against Opposition: Normal Lingual Movement Characteristics: Absent Velopharyngeal Movement: Normal Laryngeal Movement: Able to Palpate Rate of Intake: WFL Bolus Size: WFL Chewing: WFL Oral Prep Time: WFL A-P Transit: Impaired (suspect spillage over bot with thin liquid into airway intermittently) Pocketing: None Timing of Swallow: Delayed Coughing/Throat Clear: Yes (Brief strong throat clear with sip of water) Change in Voice: Yes (vocal wetness. fleeting) Recommendations - Speech Evaluation, Impression/Plan Impression: Brief strong throat clear with sip of water.suspect spillage over bot with thin liquid into airway intermittently.vocal wetness, fleeting. Seen in Oct 2016 with brief cough on thin liquid during bedside evaluation. No further signs of aspiration and MBS not done. - Dysphagia Impressions/Plan Dysphagia Impressions: Ongoing Evaluation, Suspect Aspiration (silent?) *Silent aspiration: cannot be R/O at bedside Recommendations: MBS w Esophagus - Recommendations Diet Consistency: Dysphagia Pureed Medication Administration: Crushed with applesauce Liquids: Nebo Thick, Other (Single sips. No continuous drinking. No straws.) Supplement: Magic Cup
[2017-01-03] MEDS ORDERED: amLODIPine BESYLATE 10 MG TABLET (FP) PO SCH (10:00)
[2017-01-03] MEDS ORDERED: PT OWN MED DRAWER 7, Y5N ONE ×3 (11:20→21:09)
[2017-01-03] MEDS: CARVEDILOL 25 MG TABLET (FP) PO SCH ×2 (11:36→21:19)
[2017-01-03] MEDS: LACTOBACILLUS ACIDOPHILUS 1 EACH TAB (FP) PO SCH (11:36)
[2017-01-03] MEDS: MYCOPHENOLATE SODIUM 360 MG TABLET.DR PO SCH ×2 (11:36→21:20)
[2017-01-03] MEDS: predniSONE 5 MG TABLET (UD) PO SCH (11:36)
[2017-01-03] MEDS: CLOPIDOGREL BISULFATE 75 MG TABLET (FP) PO SCH (11:37)
[2017-01-03] MEDS: TACROLIMUS ANHYDROUS 1 MG CAPSULE (NF) PO SCH ×2 (12:08→21:20)
--- NOTE | 2017-01-03 12:14 | EKG ---
Test Reason : Blood Pressure : / mmHG Vent. Rate : 073 BPM Atrial Rate : 073 BPM P-R Int : 154 ms QRS Dur : 162 ms QT Int : 404 ms P-R-T Axes : 015 -61 165 degrees QTc Int : 445 ms NORMAL SINUS RHYTHM RIGHT BUNDLE BRANCH BLOCK LEFT ANTERIOR FASCICULAR BLOCK BIFASCICULAR BLOCK T WAVE ABNORMALITY, CONSIDER INFEROLATERAL ISCHEMIA ABNORMAL ECG WHEN COMPARED WITH ECG OF 01-JAN-2017 17:07, NO SIGNIFICANT CHANGE WAS FOUND Confirmed by LORI DAVIES MD ([id number]) on 01/03/2017 12:13:33 PM Referred By: Confirmed By:LORI DAVIES MD
--- NOTE | 2017-01-03 12:51 | PN ---
Teaching Attending Note Name of Resident: Stanislav Cabrera ATTENDING PHYSICIAN STATEMENT I saw and evaluated the patient. I reviewed the resident's note and discussed the case with the resident. I agree with the resident's findings and plan as documented. SUBJECTIVE: Pt seen and examined in the ICU. Mental status during rounds much improved but now lethargic with mild right facial droop. OBJECTIVE: Last Vital Signs Temp Pulse Resp BP Pulse Ox 99.2 F 74 20 153/40 97 01/03/17 06:00 01/03/17 08:00 01/03/17 08:00 01/03/17 08:00 01/02/17 22:00 Intake & Output 12/31/16 01/01/17 01/02/17 01/03/17 23:59 23:59 23:59 23:59 Intake Total 550 540 Output Total 400 250 Balance 150 290 Weight 140 lb 156 lb 154 lb 14.4 oz Gen: somnolent but arousable, breathing nonlabored Heart: RRR Lung: decreased breath sounds at the bases Abd: soft, nontender Ext: no edema CBC, BMP 01/03/17 05:00 01/03/17 05:00 Active Medications Amlodipine Besylate (Norvasc -) 10 mg PO DAILY [facility] Last Admin: 01/03/17 11:37 Dose: 10 mg Aspirin (Asa -) 81 mg PO HS [facility] Last Admin: 01/02/17 22:00 Dose: 81 mg Atorvastatin Calcium (Lipitor -) 10 mg PO HS [facility] Last Admin: 01/02/17 22:00 Dose: 10 mg Carvedilol (Coreg -) 25 mg PO BID [facility] Last Admin: 01/03/17 11:36 Dose: 25 mg Clopidogrel Bisulfate (Plavix -) 75 mg PO DAILY [facility] Last Admin: 01/03/17 11:37 Dose: 75 mg Collagenase (Santyl -) 1 applic TP DAILY [facility] Docusate Sodium (Colace -) 100 mg PO BID PRN PRN Reason: CONSTIPATION Heparin Sodium (Porcine) (Heparin -) 1,000 unit IVPUSH PRN PRN PRN Reason: Heparin Heparin Sodium (Porcine) (Heparin -) 5,000 unit IVPUSH PRN PRN PRN Reason: Heparin Hydralazine HCl (Apresoline -) 25 mg PO TID [facility] Last Admin: 01/03/17 06:21 Dose: Not Given Sodium Chloride (Normal Saline -) 1,000 mls @ 50 mls/hr IV ASDIR [facility] Last Admin: 01/02/17 04:00 Dose: 50 mls/hr Heparin Sodium/Dextrose (Heparin Infusion -) 500 mls @ 20 mls/hr IVPB TITR HUGO ; 1,000 UNITS/HR PRN Reason: Protocol Last Admin: 01/02/17 22:45 Dose: 20 mls/hr Insulin Aspart (Novolog Vial Sliding Scale -) 1 vial SQ ACHS HUGO PRN Reason: Protocol Last Admin: 01/03/17 11:37 Dose: Not Given Insulin Detemir (Levemir Vial) 15 units SQ AM [facility] Last Admin: 01/03/17 06:21 Dose: 15 units Lactobacillus Acidophilus (Bacid -) 1 tab PO DAILY [facility] Last Admin: 01/03/17 11:36 Dose: 1 tab Mycophenolate Sodium (Mycophenolic Acid) 360 mg PO BID [facility] Last Admin: 01/03/17 11:36 Dose: 360 mg Piperacillin Sod/Tazobactam Sod (Zosyn 3.375gm Ivpb (Pre-Docked)) 3.375 gm IVPB Q8H-IV HUGO PRN Reason: Protocol Last Admin: 01/03/17 01:46 Dose: 3.375 gm Prednisone (Deltasone -) 5 mg PO DAILY [facility] Last Admin: 01/03/17 11:36 Dose: 5 mg Tacrolimus (Prograf (Non-Formulary)) 1 mg PO BID [facility] Last Admin: 01/03/17 12:08 Dose: 1 mg Tamsulosin HCl (Flomax -) 0.4 mg PO HS [facility] Last Admin: 01/02/17 22:00 Dose: 0.4 mg ASSESSMENT AND PLAN: Altered Mental Status s/p Acute Respiratory Failure ESRD s/p renal transplant on immunosuppressives CAD s/p CABG LV Diastolic Dysfunction HTN DM Hyperlipidemia r/o CVA/TIA r/o seizures - stat CT head - continue empiric antibiotics for aspiration - f/u culture - MRI pending status of stents - glucose control - aspiration precautions - BP control - DVT prophylaxis
[2017-01-03] MEDS ORDERED: SODIUM CHLORIDE 1,000 ML IV SCH (13:15)
--- NOTE | 2017-01-03 13:47 | PN ---
Teaching Attending Note Name of Resident: Christian Mckeon ATTENDING PHYSICIAN STATEMENT I saw and evaluated the patient. I reviewed the resident's note and discussed the case with the resident. I agree with the resident's findings and plan as documented. SUBJECTIVE: overnight was agitated . pulled his IV line this am . when spoke to him in Lao , he calmed down , but thought that nurses were trying to kill him. OBJECTIVE: Evaluated at 9 AM NAD , able to converse , not cooperative . Does not know location , thinks he is 47 y/o . dry MM HEENT: round L pupil, reactive to light, R pupil is smaller and minimally reactive to light , slightly deformed. no facial droop noted this am , tongue at mid joyce e. EOMI . no JVD CV: RRR, no MRG Lungs: minimal bibasilar crackles ext : no edema Abd : soft, NT, ND , NL BS Neuro : very limited . Round L pupil, reactive to light, R pupil is smaller and minimally reactive to light , slightly deformed. no facial droop noted , tongue at mid line. EOMI . moves all extremities , elbow extension : 4/5 on L , 5/5 on R . does not follow other commands . reflexes : 2+ knee jerk and biceps b/l . 1+ ankle jerk b/l . Assessment/Plan: 76 y/o gentleman with h/o HTN, ESRD s/p renal transplant, DM , CAD s/p CABG recurrent UTIs , recent admission with falls , treated for Enterococcus faecalis who was brought here due to recurrent falls . 1-AMS: possible acute delirium due to possible infection, acute illness, and sedation . Acute TIA /strok still in DDx . - MRI of brain pending stent status - treat possible infection - EEG pending . 2- Fever and Leuocytosis : meets SIRS criteria. possible source of infection is Aspiration PNA , vs UTI in this immuno-compromised pt. - continue zosyn, received a dose of vanco yesterday. will consult ID for help - unfortunately , he was given ampicillin in ER and on admission before blood/ urine cx were sent . has h/o Enterococcus faecalis and ESBL in urine before 3- Acute resp failure: ? aspiration , ? TIA . Sat O2 95 % on RA , I doubt PE - Cont empiric Abx - Although there is pulm congestion seen on Cxray , it was not taken with full inspiration. I do not think he has pulm edema despite elevated BNP 4- LLE DVT : started on heparin gt last night . - COnt heparin - due to risk of bleed with recurrent falls AC will be risky . IVC filter might be an option 5- CHUCK : mild elevation in Cr. - cont gentle hydration. - follow tacrulimus level - cont tacrulimus, prednsione and mycophenolate - if renal function continue to worsen will invite renal 6- DM : - cont SSI . - if not lina to take po will hold Am levemir 7- HTN: - cont norvasc , HZN, and coreg at home doses 8- CAD : s/p CABG . - cont coreg , ASA , Plavix. 9- DVT px MEds to be confirmed with family today .
--- NOTE | 2017-01-03 14:03 | PN ---
Progress Note (short form) - Note Progress Note: Neurology Follow up 76 year old male with PMH HTN, MD s/p CABG, DM, ESRD s/p Kidney transplant, HPLD admitted to hospital s/p fall r/o syncope was found unresponsive with normal vitals, anicorsia with a Negative head CT was intubated/extubated yesterday. Patient is awake, alert oriented to place and person, but not to time. Does not recall the events that brought him to the hospital and follows simple directions. No focal deficits. Remains in ICU in critical condition and being monitored closely. Active Medications Amlodipine Besylate (Norvasc -) 10 mg PO DAILY [facility] Last Admin: 01/03/17 11:37 Dose: 10 mg Aspirin (Asa -) 81 mg PO HS [facility] Last Admin: 01/02/17 22:00 Dose: 81 mg Atorvastatin Calcium (Lipitor -) 10 mg PO HS [facility] Last Admin: 01/02/17 22:00 Dose: 10 mg Carvedilol (Coreg -) 25 mg PO BID [facility] Last Admin: 01/03/17 11:36 Dose: 25 mg Clopidogrel Bisulfate (Plavix -) 75 mg PO DAILY [facility] Last Admin: 01/03/17 11:37 Dose: 75 mg Collagenase (Santyl -) 1 applic TP DAILY [facility] Docusate Sodium (Colace -) 100 mg PO BID PRN PRN Reason: CONSTIPATION Heparin Sodium (Porcine) (Heparin -) 1,000 unit IVPUSH PRN PRN PRN Reason: Heparin Heparin Sodium (Porcine) (Heparin -) 5,000 unit IVPUSH PRN PRN PRN Reason: Heparin Hydralazine HCl (Apresoline -) 25 mg PO TID [facility] Last Admin: 01/03/17 06:21 Dose: Not Given Sodium Chloride (Normal Saline -) 1,000 mls @ 50 mls/hr IV [facility] Last Admin: 01/02/17 04:00 Dose: 50 mls/hr Heparin Sodium/Dextrose (Heparin Infusion -) 500 mls @ 20 mls/hr IVPB TITR [facility] ; 1,000 UNITS/HR PRN Reason: Protocol Last Admin: 01/02/17 22:45 Dose: 20 mls/hr Sodium Chloride (Normal Saline -) 1,000 mls @ 50 mls/hr IV ASDIR [facility] Stop: 01/04/17 13:11 Insulin Aspart (Novolog Vial Sliding Scale -) 1 vial SQ ACHS [facility] PRN Reason: Protocol Last Admin: 01/03/17 11:37 Dose: Not Given Insulin Detemir (Levemir Vial) 15 units SQ AM [facility] Last Admin: 01/03/17 06:21 Dose: 15 units Lactobacillus Acidophilus (Bacid -) 1 tab PO DAILY [facility] Last Admin: 01/03/17 11:36 Dose: 1 tab Mycophenolate Sodium (Mycophenolic Acid) 360 mg PO BID [facility] Last Admin: 01/03/17 11:36 Dose: 360 mg Piperacillin Sod/Tazobactam Sod (Zosyn 3.375gm Ivpb (Pre-Docked)) 3.375 gm IVPB Q8H-IV [facility] PRN Reason: Protocol Last Admin: 01/03/17 01:46 Dose: 3.375 gm Prednisone (Deltasone -) 5 mg PO DAILY [facility] Last Admin: 01/03/17 11:36 Dose: 5 mg Tacrolimus (Prograf (Non-Formulary)) 1 mg PO BID [facility] Last Admin: 01/03/17 12:08 Dose: 1 mg Tamsulosin HCl (Flomax -) 0.4 mg PO HS [facility] Last Admin: 01/02/17 22:00 Dose: 0.4 mg Exam: GENERAL: Well developed, well nourished. Awake and alert. No acute distress. HEENT: Normocephalic, atraumatic. pupil unequal, right pupil 2mn, poorly reactive, right 3 mn, reactive. right eye with white haziness/cloudiness. EOMI. No conjunctival pallor. Sclera are non-icteric. dry mucous membranes. Oropharynx is clear. NECK: Supple. Full ROM. No JVD. Carotid pulses 2+ and symmetric, without bruits. No thyromegaly. No lymphadenopathy. CARDIOVASCULAR: Regular rate and rhythm. No murmurs, rubs, or gallops. Distal pulses are 2+ and symmetric. PULMONARY: No evidence of respiratory distress. Lungs clear to auscultation bilaterally. No wheezing, rales or rhonchi. ABDOMINAL: Soft. Non-tender. Non-distended. No rebound or guarding. No organomegaly. Normoactive bowel sounds. MUSCULOSKELETAL Normal range of motion at all joints. No bony deformities or tenderness. No CVA tenderness. EXTREMITIES: No cyanosis. No clubbing. No edema. No calf tenderness. SKIN: Warm and dry. Normal capillary refill. No rashes. No jaundice. NEUROLOGICAL: Alert, sleepy respond to verbal stimuli. appropriate. Cranial nerves 2-12 grossly intact. No deficits to light touch and temperature in face, upper extremities and lower extremities. generalized weakness. No motor deficits in the in face, upper extremities and lower extremities. Normoreflexic in the upper and lower extremities. Normal speech. Toes are down-going bilaterally. Gait not observed. PSYCHIATRIC: Cooperative. Good eye contact. Appropriate mood and affect. CBCD WBC 16.0 K/mm3 (4.0-10.0) H 01/03/17 05:00 RBC 4.26 M/mm3 (4.00-5.60) 01/03/17 05:00 Hgb 12.6 GM/dL (11.7-16.9) D 01/03/17 05:00 Hct 37.8 % (35.4-49) D 01/03/17 05:00 MCV 88.7 fl (80-96) 01/03/17 05:00 MCHC 33.3 g/dl (32.0-35.9) 01/03/17 05:00 RDW 14.7 % (11.9-15.9) 01/03/17 05:00 Plt Count 175 K/MM3 (134-434) 01/03/17 05:00 MPV 9.3 fl (7.5-11.1) 01/03/17 05:00 CMP Sodium 138 mmol/L (136-145) 01/03/17 05:00 Potassium 4.2 mmol/L (3.5-5.1) 01/03/17 05:00 Chloride 100 mmol/L (98-107) 01/03/17 05:00 Carbon Dioxide 27 mmol/L (21-32) 01/03/17 05:00 Anion Gap 11 (8-16) 01/03/17 05:00 BUN 26 mg/dL (7-18) H 01/03/17 05:00 Creatinine 1.4 mg/dL (0.7-1.3) H 01/03/17 05:00 Creat Clearance w eGFR 53.96 (>60) 01/02/17 05:20 Calcium 8.3 mg/dL (8.5-10.1) L 01/03/17 05:00 Total Bilirubin 0.7 mg/dL (0.2-1.0) 01/02/17 05:20 AST 23 U/L (15-37) D 01/02/17 05:20 ALT 16 U/L (12-78) D 01/02/17 05:20 Alkaline Phosphatase 80 U/L (45-117) D 01/02/17 05:20 Total Protein 6.5 g/dl (6.4-8.2) D 01/02/17 05:20 Albumin 3.7 g/dl (3.4-5.0) D 01/02/17 05:20 CT head 01/01/17: No acute infarct is seen within the limitations of CT. Small chronic left posterior frontal cortical infarct. Small chronic left thalamic infarct. Small left frontal subcortical infarct. Moderate periventricular and subcortical microvascular ischemic gliosis. Prominent atherosclerotic vascular calcifications. Mild to moderate generalized cerebral atrophy with corresponding ventricular dilatation. No extra-axial fluid collection. There is no obvious mass lesion. CT head [place] 01/02/17 : No definite interval change is identified in comparison to a prior study performed 3 hours earlier on 01/01/2017 (aside from incidental note of interval insertion of a nasogastric tube). Please refer to the previous report for a detailed description of chronic findings. US carotid 01/02/17: Moderate size plaques in the proximal common carotid artery. There are also moderate-sized plaques at the common carotid bifurcation , bulb and proximal internal carotid artery without evidence of hemodynamically significant stenosis. Note is made of high peak systolic velocity in the right vertebral artery of 103 cm/s. Correlation with MRA or CTA of the neck is needed for further evaluation of left side of the neck Plan: 76 year old male with PMH HTN, MD s/p CABG, DM, ESRD s/p Kidney transplant, HPLD admitted to hospital s/p fall r/o syncope was found unresponsive with normal vitals, anicorsia with a Negative head CT was intubated/extubated yesterday. Patient is awake, alert oriented to place and person, but not to time. Does not recall the events that brought him to the hospital and follows simple directions. No focal deficits. Remains in ICU in critical condition and being monitored closely. Loss of consciousness possibly Posterior CVA/brainstem Ischemia, seizure, infectious causes, metabolic causes, medication effect. CT head negative X2 with chronic changes US carotid showed moderate plaque in common carotid but no significant stenosis MRI brain without contrast Monitor for electrolytes abnormalities, optimize Blood sugar Optimize Blood LDL with Goal of 70 or lower Blood Pressure goal 120's-140's Continue anti-HTN medications, coreg, hydralazine Continue ASA 81, Plavix 75mg F/u culture for possible sources of infection Seizure precaution Critical care: 45 mins
[2017-01-03] MEDS: SODIUM CHLORIDE 1,000 ML IV SCH (16:49)
[2017-01-03] MEDS: HEPARIN INFUSION - 500 ML IVPB SCH (16:56)
--- NOTE | 2017-01-03 17:31 | PN ---
Physical Exam: SUBJECTIVE: Patient seen and examined at bedside in ICU. Agitated and slightly confused but better mental status compared to yesterday. Low grade fever noted overnight. OBJECTIVE: Vital Signs Period Temp Pulse Resp BP Sys/Mendoza Pulse Ox Last 24 Hr 99.2 F-100.3 F 66-83 18-24 94-153/31-72 97-97 GENERAL: The patient is minimally verbal, responsive and follow some command, slightly confused, agitated LUNGS: bilateral crackles HEART: RRR no murmur, regurg, gallop ABDOMEN: soft, NT/ND, normal BS. EXTREMITIES: no edema NEURO: R pupil > L pupil, slight R facial droop, move all extremities Laboratory Results - last 24 hr 01/02/17 01/02/17 01/03/17 02:36 14:30 05:00 WBC RBC Hgb Hct MCV MCHC RDW Plt Count MPV Neutrophils % Lymphocytes % Monocytes % Eosinophils % Basophils % PTT (Actin FS) Sodium Potassium Chloride Carbon Dioxide Anion Gap BUN Creatinine Random Glucose Calcium Phosphorus Magnesium B-Natriuretic Peptide Cortisol AM Sample 27.4 U Random Total Protein 44 H Urine Creatinine 150.0 Protein/Creatinin Ratio 0.29 Influenza Type A Ab Cancelled Influenza Type B Ab Cancelled 01/03/17 01/03/17 01/03/17 05:00 05:00 05:00 WBC 16.0 H RBC 4.26 Hgb 12.6 D Hct 37.8 D MCV 88.7 MCHC 33.3 RDW 14.7 Plt Count 175 MPV 9.3 Neutrophils % 72.9 Lymphocytes % 16.9 Monocytes % 9.0 Eosinophils % 0.8 Basophils % 0.4 PTT (Actin FS) 89.8 H D Sodium 138 Potassium 4.2 Chloride 100 Carbon Dioxide 27 Anion Gap 11 BUN 26 H Creatinine 1.4 H Random Glucose 94 D Calcium 8.3 L Phosphorus 3.7 Magnesium 1.6 L B-Natriuretic Peptide 3126.88 H Cortisol AM Sample U Random Total Protein Urine Creatinine Protein/Creatinin Ratio Influenza Type A Ab Influenza Type B Ab 01/03/17 01/03/17 05:45 15:15 WBC RBC Hgb Hct MCV MCHC RDW Plt Count MPV Neutrophils % Lymphocytes % Monocytes % Eosinophils % Basophils % PTT (Actin FS) 32.1 D Sodium Potassium Chloride Carbon Dioxide Anion Gap BUN Creatinine Random Glucose Calcium Phosphorus Magnesium B-Natriuretic Peptide Cancelled Cortisol AM Sample U Random Total Protein Urine Creatinine Protein/Creatinin Ratio Influenza Type A Ab Influenza Type B Ab Active Medications Generic Name Dose Route Start Last Admin Trade Name Freq PRN Reason Stop Dose Admin Amlodipine Besylate 10 mg 01/03/17 10:00 01/03/17 11:37 Norvasc - PO 10 mg DAILY [facility] Administration Aspirin 81 mg 01/02/17 22:00 01/02/17 22:00 Asa - PO 81 mg HS [facility] Administration Atorvastatin Calcium 10 mg 01/02/17 22:00 01/02/17 22:00 Lipitor - PO 10 mg HS [facility] Administration Carvedilol 25 mg 01/02/17 22:00 01/03/17 11:36 Coreg - PO 25 mg BID [facility] Administration Clopidogrel Bisulfate 75 mg 01/03/17 10:00 01/03/17 11:37 Plavix - PO 75 mg DAILY [facility] Administration Collagenase 1 applic 01/03/17 10:00 Santyl - TP DAILY [facility] Docusate Sodium 100 mg 01/02/17 14:05 Colace - PO BID PRN CONSTIPATION Heparin Sodium (Porcine) 1,000 unit 01/02/17 22:07 Heparin - IVPUSH PRN PRN Heparin Heparin Sodium (Porcine) 5,000 unit 01/02/17 22:07 Heparin - IVPUSH PRN PRN Heparin Hydralazine HCl 25 mg 01/02/17 22:00 01/03/17 06:21 Apresoline - PO Not Given TID [facility] Sodium Chloride 1,000 mls @ 50 mls/hr 01/02/17 02:40 01/03/17 16:49 Normal Saline - IV 50 mls/hr [facility] Administration Heparin Sodium/Dextrose 500 mls @ 20 mls/hr 01/03/17 01:25 01/02/17 22:45 Heparin Infusion - IVPB 20 mls/hr TITR [facility] Administration Protocol 1,000 UNITS/HR Sodium Chloride 1,000 mls @ 50 mls/hr 01/03/17 13:15 Normal Saline - IV 01/04/17 13:11 ASDIR [facility] Vancomycin HCl 1,000 mg/ 250 mls @ 250 mls/hr 01/03/17 17:10 Dextrose IVPB 01/03/17 18:09 ONCE ONE Insulin Aspart 1 vial 01/02/17 16:30 01/03/17 11:37 Novolog Vial Sliding Scale - SQ Not Given ACHS [facility] Protocol Insulin Detemir 15 units 01/02/17 11:30 01/03/17 06:21 Levemir Vial SQ 15 units AM [facility] Administration Lactobacillus Acidophilus 1 tab 01/03/17 10:00 01/03/17 11:36 Bacid - PO 1 tab DAILY [facility] Administration Mycophenolate Sodium 360 mg 01/02/17 22:00 01/03/17 11:36 Mycophenolic Acid PO 360 mg BID [facility] Administration Piperacillin Sod/Tazobactam Sod 3.375 gm 01/02/17 11:00 01/03/17 16:49 Zosyn 3.375gm Ivpb (Pre-Docked) IVPB 3.375 gm Q8H-IV [facility] Administration Protocol Prednisone 5 mg 01/03/17 10:00 01/03/17 11:36 Deltasone - PO 5 mg DAILY [facility] Administration Tacrolimus 1 mg 01/02/17 22:00 01/03/17 12:08 Prograf (Non-Formulary) PO 1 mg BID [facility] Administration Tamsulosin HCl 0.4 mg 01/02/17 22:00 01/02/17 22:00 Flomax - PO 0.4 mg HS [facility] Administration ASSESSMENT/PLAN: 76 yo M h/o HTN, ESRD s/p renal transplant, DM , CAD s/p CABG recurrent UTIs , recent admission with falls admitted to ICU due to AMS. Altered mental status - r/o stroke * stat CT -ve - MRI pending due to unable to identify stent material - r/o seizure * EEG pending - r/o infection * -ve cultures but likely false negative (abx before culture drawn) - r/o immunosuppressive drug toxicity * f/u on tacrolimus level SIRS likely 2/2 aspiration pneumonia - febrile and leukocytosis - cont. zosyn CHUCK - h/o renal transplant - baseline 0.9 - 1.2 - cont. hydration - cont. tacrulimus, prednsione, mycophenolate DVT - heparin gtt - await family's decision on intermission coordinator anticoagulation CAD s/p CABG - cont. asa and plavix DM - on sliding scale HTN - cont. norvasc, HCTZ and coreg FEN - NS @50ml/hr - hypomagnesimia, replete and recheck Mg - pureed with diabetic and nectar thick Prophylaxis - DVT: on heparin - GI: not indicated Dispo: may transfer to telemetry Visit type - Emergency Visit Emergency Visit: No - New Patient This patient is new to me today: Yes Date on this admission: 01/03/17 - Critical Care Critical Care patient: Yes Total Critical Care Time (in minutes): 35 Critical Care Statement: The care of this patient involved high complexity decision making to prevent further life threatening deterioration of the patient 's condition and/or to evalute & treat vital organ system(s) failure or risk of failure. - Discharge Referral Referred to [facility] No
[2017-01-03] MEDS ORDERED: VANCOMYCIN 1 GRAM (PRE-DOCKED) 250 ML IVPB ONE (17:45)
[2017-01-03] MEDS ORDERED: ACETAMINOPHEN 650 MG SUPP.RECT PR ONE (18:10)
[2017-01-03] MEDS: COLLAGENASE CLOSTRIDIUM HIST. 30 GRAMS TUBE TP SCH (18:44)
[2017-01-03] MEDS ORDERED: ACETAMINOPHEN 1000 MG/100 ML VIAL (NON FORMULARY) IVPB PRN (19:31)
[2017-01-03] MEDS: TAMSULOSIN HCL 0.4 MG CAP.ER.24H (FP) PO SCH (21:19)
[2017-01-03] MEDS: ASPIRIN 81 MG CHEWABLE TABLETS PO SCH (21:19)
[2017-01-03] MEDS: ATORVASTATIN CA 10 MG TABLET (FP) PO SCH (21:19)
[2017-01-03] MEDS ORDERED: hydrALAZINE HCL 25 MG TABLET (FP) PO SCH (22:00)
[2017-01-03] MEDS: DULoxetine HCL 20 MG CAPSULE.DR (FP) PO SCH (22:00)
[2017-01-04] MEDS: PIPERACILLIN/TAZOB 3.375 GM/50 ML PRE-DOCKED IVPB SCH ×3 (04:16→18:38)
[2017-01-04] MEDS: SODIUM CHLORIDE 1,000 ML IV SCH (04:16)
[2017-01-04] MEDS: INSULIN SLIDING SCALE (NOVOLOG) 1 VIAL SQ SCH ×4 (07:54→21:08)
[2017-01-04 08:54] LABS: MCHC 32.4 g/dl (32.0-35.9); MEAN CELL VOLUME 89.4 fl (80-96); MEAN PLT VOLUME 8.3 fl (7.5-11.1); PLATELET COUNT 150 K/MM3 (134-434); RDW 14.6 % (11.9-15.9); WHITE BLOOD COUNT 12.3 K/mm3 (4.0-10.0)
--- NOTE | 2017-01-04 09:07 | PN ---
Progress Note (short form) - Note Progress Note: ID consult dictated imp/reccd 76 year old man s/p renal transplant 2011 admitted 01/01 with hyperglycemia and dizziness, 01/02 was found unresponsive and intubated after intubation he developed fevers now extubated alert, oriented to name and place, not date eating breakfast no complaints fevers s/p renal transplant unclear cause of LOC fevers post intubation ?aspiration pneumonia cultures legionella antigen ordered continue zosyn clinically improved repeat cxray ordered
[2017-01-04 09:46] LABS: ALBUMIN 2.6 g/dl (3.4-5.0); BILIRUBIN,TOTAL 0.6 mg/dL (0.2-1.0); CALCIUM 8.1 mg/dL (8.5-10.1); CREATININE 1.3 mg/dL (0.7-1.3); MAGNESIUM 1.7 mg/dL (1.8-2.4); PHOSPHOROUS 2.9 mg/dL (2.5-4.9); TOT PROT 5.3 g/dl (6.4-8.2)
[2017-01-04] MEDS ORDERED: PT OWN MED DRAWER 7, Y5N ONE ×2 (11:24→21:06)
[2017-01-04] MEDS: CARVEDILOL 25 MG TABLET (FP) PO SCH ×2 (11:30→21:07)
[2017-01-04] MEDS: LACTOBACILLUS ACIDOPHILUS 1 EACH TAB (FP) PO SCH (11:30)
[2017-01-04] MEDS: DULoxetine HCL 20 MG CAPSULE.DR (FP) PO SCH ×2 (11:31→21:07)
[2017-01-04] MEDS: MYCOPHENOLATE SODIUM 360 MG TABLET.DR PO SCH ×2 (11:31→21:08)
[2017-01-04] MEDS: predniSONE 5 MG TABLET (UD) PO SCH (11:31)
[2017-01-04] MEDS: amLODIPine BESYLATE 10 MG TABLET (FP) PO SCH (11:31)
[2017-01-04] MEDS: CLOPIDOGREL BISULFATE 75 MG TABLET (FP) PO SCH (11:32)
[2017-01-04] MEDS: TACROLIMUS ANHYDROUS 1 MG CAPSULE (NF) PO SCH ×2 (11:32→21:09)
[2017-01-04] MEDS: COLLAGENASE CLOSTRIDIUM HIST. 30 GRAMS TUBE TP SCH (12:10)
[2017-01-04] MEDS: HEPARIN INFUSION - 500 ML IVPB SCH ×2 (12:21)
--- NOTE | 2017-01-04 12:29 | PN ---
Progress Note (short form) - Note Progress Note: Neurology Follow up 76 year old male with PMH HTN, [place] s/p CABG, DM, ESRD s/p Kidney transplant, HPLD admitted to hospital s/p fall r/o syncope was found unresponsive with normal vitals, anicorsia with a Negative head CT was intubated/extubated 2 days ago. Patient is awake, alert oriented to place and person, but not to time. Does not recall the events that brought him to the hospital and follows simple directions. No focal deficits. Remains in ICU in critical condition and being monitored closely. Pt has fever overnight with Tmax 101.3, now afebrile, on nasal cannula 4L with 97% O2. Follow directions, swake, alert and oriented to time place and person Last Vital Signs Temp Pulse Resp BP Pulse Ox 98.2 F 75 20 99/19 94 L 01/04/17 10:11 01/04/17 10:11 01/04/17 10:11 01/04/17 10:11 01/04/17 09:57 GENERAL:~ Well-appearing, well-nourished. No apparent distress. HEENT:~ Normocephalic, atraumatic. Right pupil 2mn, non reactive with hazy cornea, left pupil 3mn reactive. EOM intact. CARDIOVASCULAR:~ Normal S1, S2. Regular rate and rhythm. PULMONARY:~ Clear to auscultation bilaterally. ABDOMEN:~ Soft, non-distended, non-tender.~ EXTREMITIES:~ Normal ROM in all four extremities. No gross deformities. SKIN:~ Warm, dry.~ No rash NEUROLOGICAL:~ No focal neurological deficits. Alert, awake, appropriate. Cranial nerves 2-12 intact. No deficits to light touch and temperature in face, upper extremities and lower extremities. No motor deficits in the in face, upper extremities and lower extremities. Normoreflexic in the upper and lower extremities. CBCD WBC 12.3 K/mm3 (4.0-10.0) H 01/04/17 08:30 RBC 4.07 M/mm3 (4.00-5.60) 01/04/17 08:30 Hgb 11.8 GM/dL (11.7-16.9) 01/04/17 08:30 Hct 36.4 % (35.4-49) 01/04/17 08:30 MCV 89.4 fl (80-96) 01/04/17 08:30 MCHC 32.4 g/dl (32.0-35.9) 01/04/17 08:30 RDW 14.6 % (11.9-15.9) 01/04/17 08:30 Plt Count 150 K/MM3 (134-434) 01/04/17 08:30 MPV 8.3 fl (7.5-11.1) D 01/04/17 08:30 CMP Sodium 139 mmol/L (136-145) 01/04/17 08:30 Potassium 3.8 mmol/L (3.5-5.1) 01/04/17 08:30 Chloride 103 mmol/L (98-107) 01/04/17 08:30 Carbon Dioxide 27 mmol/L (21-32) 01/04/17 08:30 Anion Gap 9 (8-16) 01/04/17 08:30 BUN 20 mg/dL (7-18) H D 01/04/17 08:30 Creatinine 1.3 mg/dL (0.7-1.3) 01/04/17 08:30 Creat Clearance w eGFR 53.96 (>60) 01/04/17 08:30 Calcium 8.1 mg/dL (8.5-10.1) L 01/04/17 08:30 Total Bilirubin 0.6 mg/dL (0.2-1.0) 01/04/17 08:30 AST 19 U/L (15-37) 01/04/17 08:30 ALT 14 U/L (12-78) 01/04/17 08:30 Alkaline Phosphatase 61 U/L (45-117) D 01/04/17 08:30 Total Protein 5.3 g/dl (6.4-8.2) L 01/04/17 08:30 Albumin 2.6 g/dl (3.4-5.0) L D 01/04/17 08:[address] head 01/01/17: No acute infarct is seen within the limitations of CT. Small chronic left posterior frontal cortical infarct. Small chronic left thalamic infarct. Small left frontal subcortical infarct. Moderate periventricular and subcortical microvascular ischemic gliosis. Prominent atherosclerotic vascular calcifications. Mild to moderate generalized cerebral atrophy with corresponding ventricular dilatation. No extra-axial fluid collection. There is no obvious mass lesion. CT head [place] 01/02/17 : No definite interval change is identified in comparison to a prior study performed 3 hours earlier on 01/01/2017 (aside from incidental note of interval insertion of a nasogastric tube). US carotid 01/02/17: Moderate size plaques in the proximal common carotid artery. There are also moderate-sized plaques at the common carotid bifurcation , bulb and proximal internal carotid artery without evidence of hemodynamically significant stenosis. Note is made of high peak systolic velocity in the right vertebral artery of 103 cm/s. Correlation with MRA or CTA of the neck is needed for further evaluation of left side of the neck US lower extremities 01/02/16: Left popliteal DVT CT head w/o contrast 01/03/2017: Focal old infarcts in the left thalamus and basal ganglia. No gross acute infarct is identified. Correlate clinically to determine further evaluation and follow-up. Plan: 76 year old male with PMH HTN, [place] s/p CABG, DM, ESRD s/p Kidney transplant, HPLD admitted to hospital s/p fall r/o syncope was found unresponsive with normal vitals, anicorsia with a Negative head CT was intubated/extubated 2 days ago. Patient is awake, alert oriented to place and person, but not to time. Does not recall the events that brought him to the hospital and follows simple directions. No focal deficits. Remains in ICU in critical condition and being monitored closely. Loss of consciousness possibly Posterior CVA/brainstem Ischemia, seizure, infectious causes, metabolic causes, medication effect. CT head negative X3 with chronic changes US carotid showed moderate plaque in common carotid but no significant stenosis MRI brain without contrast pending D/C EEG Monitor for electrolytes abnormalities, optimize Blood sugar Optimize Blood LDL with Goal of 70 or lower Blood Pressure goal 120's-140's Continue anti-HTN medications, Coreg, hydralazine On ASA 81, Plavix 75mg Pt is on anticoagulation with heparin drip for DVT. Watch out for bleeding especially with combination with antiplatelet. F/u culture for possible sources of infection Will consider further workup after MRI brain Critical care: 45 mins
--- NOTE | 2017-01-04 12:33 | PN ---
Teaching Attending Note Name of Resident: Stanislav Cabrera ATTENDING PHYSICIAN STATEMENT I saw and evaluated the patient. I reviewed the resident's note and discussed the case with the resident. I agree with the resident's findings and plan as documented. SUBJECTIVE: Pt seen and examined in the ICU. More alert, awake today. Fevers overnight. Desaturated overnight while sleeping but normalizes when woken up. OBJECTIVE: Last Vital Signs Temp Pulse Resp BP Pulse Ox 98.2 F 75 20 99/19 94 L 01/04/17 10:11 01/04/17 10:11 01/04/17 10:11 01/04/17 10:11 01/04/17 09:57 Intake & Output 01/01/17 01/02/17 01/03/17 01/04/17 23:59 23:59 23:59 23:59 Intake Total 550 540 200 Output Total 400 750 Balance 150 -210 200 Weight 140 lb 156 lb 154 lb 14.4 oz 156 lb 8.451 oz Gen: more awake, alert Heart: RRR Lung: decreased breath sounds at the bases Abd: soft, nontender Ext: no edema CBC, BMP 01/04/17 08:30 01/04/17 08:30 Active Medications Acetaminophen (Ofirmev Injection -) 1,000 mg IVPB Q6H PRN PRN Reason: FEVER OR PAIN Stop: 01/04/17 13:32 Amlodipine Besylate (Norvasc -) 10 mg PO DAILY [facility] Last Admin: 01/04/17 11:31 Dose: 10 mg Aspirin (Asa -) 81 mg PO HS [facility] Last Admin: 01/03/17 21:19 Dose: 81 mg Atorvastatin Calcium (Lipitor -) 10 mg PO HS [facility] Last Admin: 01/03/17 21:19 Dose: 10 mg Carvedilol (Coreg -) 25 mg PO BID [facility] Last Admin: 01/04/17 11:30 Dose: 25 mg Clopidogrel Bisulfate (Plavix -) 75 mg PO DAILY [facility] Last Admin: 01/04/17 11:32 Dose: 75 mg Docusate Sodium (Colace -) 100 mg PO BID PRN PRN Reason: CONSTIPATION Duloxetine HCl (Cymbalta -) 20 mg PO BID [facility] Last Admin: 01/04/17 11:31 Dose: 20 mg Heparin Sodium (Porcine) (Heparin -) 1,000 unit IVPUSH PRN PRN PRN Reason: Heparin Heparin Sodium (Porcine) (Heparin -) 5,000 unit IVPUSH PRN PRN PRN Reason: Heparin Last Admin: 01/03/17 16:56 Dose: 5,000 unit Heparin Sodium/Dextrose (Heparin Infusion -) 500 mls @ 20 mls/hr IVPB TITR [facility] ; 1,000 UNITS/HR PRN Reason: Protocol Last Admin: 01/04/17 12:21 Dose: 19 mls/hr Sodium Chloride (Normal Saline -) 1,000 mls @ 50 mls/hr IV ASDIR [facility] Stop: 01/04/17 13:11 Last Admin: 01/03/17 17:13 Dose: 50 mls/hr Insulin Aspart (Novolog Vial Sliding Scale -) 1 vial SQ ACHS [facility] PRN Reason: Protocol Last Admin: 01/04/17 11:59 Dose: 8 units Lactobacillus Acidophilus (Bacid -) 1 tab PO DAILY [facility] Last Admin: 01/04/17 11:30 Dose: 1 tab Magnesium Oxide (Mag-Ox -) 800 mg PO ONCE ONE Stop: 01/04/17 12:46 Mycophenolate Sodium (Mycophenolic Acid) 360 mg PO BID [facility] Last Admin: 01/04/17 11:31 Dose: 360 mg Piperacillin Sod/Tazobactam Sod (Zosyn 3.375gm Ivpb (Pre-Docked)) 3.375 gm IVPB Q8H-IV [facility] PRN Reason: Protocol Last Admin: 01/04/17 11:32 Dose: 3.375 gm Prednisone (Deltasone -) 5 mg PO DAILY [facility] Last Admin: 01/04/17 11:31 Dose: 5 mg Tacrolimus (Prograf (Non-Formulary)) 1 mg PO BID [facility] Last Admin: 01/04/17 11:32 Dose: 1 mg Tamsulosin HCl (Flomax -) 0.4 mg PO HS [facility] Last Admin: 01/03/17 21:19 Dose: 0.4 mg ASSESSMENT AND PLAN: Altered Mental Status s/p Acute Respiratory Failure ESRD s/p renal transplant on immunosuppressives CAD s/p CABG LV Diastolic Dysfunction DVT HTN DM Hyperlipidemia r/o CVA/TIA r/o seizures - continue antibiotics for aspiration - f/u cultures - MRI pending status of stents - continue anticoagulation for DVT for now - pt likely not ideal candidate for anticoagulation due to history of falls - may need IVC filter - glucose control - aspiration precautions - BP control - DVT prophylaxis - can monitor on telemetry
[2017-01-04] MEDS ORDERED: MAGNESIUM OXIDE 400 MG TABLET (FP) PO ONE ×2 (12:45→13:00)
--- NOTE | 2017-01-04 14:12 | PN ---
Physical Exam: SUBJECTIVE: Patient seen and examined at bedside in the ICU. Per night float nurse, patient was agitated and confused and tried to pull out his peripheral IVs, he also desatured to the 70s at night. In the AM, he's calmer and more cooperative. OBJECTIVE: Vital Signs Period Temp Pulse Resp BP Sys/Mendoza Pulse Ox Last 24 Hr 98.2 F-101.3 F 70-86 20-29 86-149/19-60 94-95 GENERAL: The patient is more awake, alert and oriented than yesterday, slightly agitated and confused LUNGS: CTAB HEART: RRR no murmur, regurg, gallop ABDOMEN: soft, NT/ND, normal BS. EXTREMITIES: no edema NEURO: CNII-XII intact, move all limbs, 5/5 strength in all extremities and sensation intact Laboratory Results - last 24 hr 01/01/17 01/02/17 01/02/17 21:46 00:49 02:36 WBC RBC Hgb Hct MCV MCHC RDW Plt Count MPV PTT (Actin FS) Sodium Potassium Chloride Carbon Dioxide Anion Gap BUN Creatinine Creat Clearance w eGFR POC Glucometer 230.61915 152.11288 Random Glucose Calcium Phosphorus Magnesium Total Bilirubin AST ALT Alkaline Phosphatase Total Protein Albumin Cortisol AM Sample 27.4 01/02/17 01/02/17 01/02/17 02:41 17:10 23:54 WBC RBC Hgb Hct MCV MCHC RDW Plt Count MPV PTT (Actin FS) Sodium Potassium Chloride Carbon Dioxide Anion Gap BUN Creatinine Creat Clearance w eGFR POC Glucometer 141.66667 208.51206 [phone] Random Glucose Calcium Phosphorus Magnesium Total Bilirubin AST ALT Alkaline Phosphatase Total Protein Albumin Cortisol AM Sample 01/03/17 01/03/17 01/03/17 05:20 11:33 12:46 WBC RBC Hgb Hct MCV MCHC RDW Plt Count MPV PTT (Actin FS) Sodium Potassium Chloride Carbon Dioxide Anion Gap BUN Creatinine Creat Clearance w eGFR POC Glucometer 117.61418 62.55776 95.57037 Random Glucose Calcium Phosphorus Magnesium Total Bilirubin AST ALT Alkaline Phosphatase Total Protein Albumin Cortisol AM Sample 01/03/17 01/03/17 01/03/17 15:15 18:06 20:45 WBC RBC Hgb Hct MCV MCHC RDW Plt Count MPV PTT (Actin FS) 32.1 D 181.5 H D Sodium Potassium Chloride Carbon Dioxide Anion Gap BUN Creatinine Creat Clearance w eGFR POC Glucometer [phone] Random Glucose Calcium Phosphorus Magnesium Total Bilirubin AST ALT Alkaline Phosphatase Total Protein Albumin Cortisol AM Sample 01/04/17 01/04/17 01/04/17 03:36 06:40 08:30 WBC 12.3 H RBC 4.07 Hgb 11.8 Hct 36.4 MCV 89.4 MCHC 32.4 RDW 14.6 Plt Count 150 MPV 8.3 D PTT (Actin FS) Sodium Potassium Chloride Carbon Dioxide Anion Gap BUN Creatinine Creat Clearance w eGFR POC Glucometer 157.62250 175.48821 Random Glucose Calcium Phosphorus Magnesium Total Bilirubin AST ALT Alkaline Phosphatase Total Protein Albumin Cortisol AM Sample 01/04/17 01/04/17 01/04/17 08:30 08:30 11:56 WBC RBC Hgb Hct MCV MCHC RDW Plt Count MPV PTT (Actin FS) 77.9 H D Sodium 139 Potassium 3.8 Chloride 103 Carbon Dioxide 27 Anion Gap 9 BUN 20 H D Creatinine 1.3 Creat Clearance w eGFR 53.96 POC Glucometer [phone] Random Glucose 92 Calcium 8.1 L Phosphorus 2.9 D Magnesium 1.7 L Total Bilirubin 0.6 AST 19 ALT 14 Alkaline Phosphatase 61 D Total Protein 5.3 L Albumin 2.6 L D Cortisol AM Sample Active Medications Generic Name Dose Route Start Last Admin Trade Name Freq PRN Reason Stop Dose Admin Amlodipine Besylate 10 mg 01/04/17 10:00 01/04/17 11:31 Norvasc - PO 10 mg DAILY HUGO Administration Aspirin 81 mg 01/02/17 22:00 01/03/17 21:19 Asa - PO 81 mg HS HUGO Administration Atorvastatin Calcium 10 mg 01/02/17 22:00 01/03/17 21:19 Lipitor - PO 10 mg HS HUGO Administration Carvedilol 25 mg 01/04/17 10:00 01/04/17 11:30 Coreg - PO 25 mg BID HUGO Administration Clopidogrel Bisulfate 75 mg 01/03/17 10:00 01/04/17 11:32 Plavix - PO 75 mg DAILY HUGO Administration Docusate Sodium 100 mg 01/02/17 14:05 Colace - PO BID PRN CONSTIPATION Duloxetine HCl 20 mg 01/03/17 22:00 01/04/17 11:31 Cymbalta - PO 20 mg BID HUGO Administration Heparin Sodium (Porcine) 1,000 unit 01/02/17 22:07 Heparin - IVPUSH PRN PRN Heparin Heparin Sodium (Porcine) 5,000 unit 01/02/17 22:07 01/03/17 16:56 Heparin - IVPUSH 5,000 unit PRN PRN Administration Heparin Heparin Sodium/Dextrose 500 mls @ 20 mls/hr 01/03/17 01:25 01/04/17 12:21 Heparin Infusion - IVPB 19 mls/hr TITR HUGO Administration Protocol 1,000 UNITS/HR Insulin Aspart 1 vial 01/02/17 16:30 01/04/17 11:59 Novolog Vial Sliding Scale - SQ 8 units ACHS HUGO Administration Protocol Lactobacillus Acidophilus 1 tab 01/03/17 10:00 01/04/17 11:30 Bacid - PO 1 tab DAILY HUGO Administration Mycophenolate Sodium 360 mg 01/02/17 22:00 01/04/17 11:31 Mycophenolic Acid PO 360 mg BID HUGO Administration Piperacillin Sod/Tazobactam Sod 3.375 gm 01/02/17 11:00 01/04/17 11:32 Zosyn 3.375gm Ivpb (Pre-Docked) IVPB 3.375 gm Q8H-IV HUGO Administration Protocol Prednisone 5 mg 01/03/17 10:00 01/04/17 11:31 Deltasone - PO 5 mg DAILY HUGO Administration Tacrolimus 1 mg 01/02/17 22:00 01/04/17 11:32 Prograf (Non-Formulary) PO 1 mg BID HUGO Administration Tamsulosin HCl 0.4 mg 01/02/17 22:00 01/03/17 21:19 Flomax - PO 0.4 mg HS HUGO Administration ASSESSMENT/PLAN: 76 yo M h/o HTN, ESRD s/p renal transplant, DM , CAD s/p CABG recurrent UTIs , recent admission with falls admitted to ICU due to AMS. Altered mental status - r/o stroke * stat CT -ve - MRI pending due to unable to identify stent material - r/o seizure * EEG pending - r/o infection * -ve cultures but likely false negative (abx before culture drawn) - r/o immunosuppressive drug toxicity * f/u on tacrolimus level SIRS likely 2/2 aspiration pneumonia - febrile and leukocytosis - cont. zosyn and vanco CHUCK - h/o renal transplant - baseline 0.9 - 1.2 - cont. hydration - cont. tacrulimus, prednsione, mycophenolate DVT - heparin gtt - await family's decision on halfway anticoagulation CAD s/p CABG - cont. asa and plavix DM - on sliding scale HTN - cont. norvasc, HCTZ and coreg FEN - no IVF - hypomagnesimia, repleted 800mg MgO - pureed with diabetic and nectar thick Prophylaxis - DVT: on heparin - GI: not indicated Dispo: transfer to telemetry Visit type - Emergency Visit Emergency Visit: No - New Patient This patient is new to me today: No - Critical Care Critical Care patient: Yes Total Critical Care Time (in minutes): 45 Critical Care Statement: The care of this patient involved high complexity decision making to prevent further life threatening deterioration of the patient 's condition and/or to evalute & treat vital organ system(s) failure or risk of failure. - Discharge Referral Referred to [facility] No
--- NOTE | 2017-01-04 14:20 | PN ---
Progress Note, TARE MAN - Note Progress Note: Reported to be tolerating puree and nectar. Had period of reduced verbalization/ responsiveness yesterday. w/u in progress. For MBS to r/o silent aspieration. Overtly tolerates Po. Reviewed with icu nurse. For MBS tomorrow. If signs of aspiration, cough, congestion, NPO until MBS.
--- NOTE | 2017-01-04 14:32 | PN ---
Teaching Attending Note Name of Resident: Christian Mckeon ATTENDING PHYSICIAN STATEMENT I saw and evaluated the patient. I reviewed the resident's note and discussed the case with the resident. I agree with the resident's findings and plan as documented. SUBJECTIVE: Over night , pt required BIPAP ( he was noted to be apnic while asleep and hypoxic, but sat O2 came back to NL once awake ) . he denies any fever or chills,, has no abd pain or BABCOCK , no visual changes , no SOB or cough OBJECTIVE: NAD ,awake alert , knows his location , and his age , his home address, and his kids . very pleasant and cooperative . HEENT: round L pupil, reactive to light, R pupil is smaller and minimally reactive to light , slightly deformed. EOMI, no facial droop, CV: RRR, no MRG Lungs: minimal bibasilar crackles ext : no edema , no erythema Abd : soft, NT, ND , NL BS Neuro : Round L pupil, reactive to light, R pupil is smaller and minimally reactive to light , slightly deformed. No facial droop . Nl facial sensation , tongue at mid line , strength 5/5 in upper and lower extremities proximally and distally , sensation to light touch nL . reflexes 2+ knee jerk, and biceps b/l . 1+ ankle jerk b/l . sensation to light touch is nl all over the extremities Assessment/Plan: 76 y/o gentleman with h/o HTN, ESRD s/p renal transplant, DM , CAD s/p CABG recurrent UTIs , recent admission with falls , treated for Enterococcus faecalis who was brought here due to recurrent falls . 1-AMS: I wonder if this gentleman has been having seizures ( 2 episodes of unresponsiveness followed by gain of consciousness but very confused). Now Stroke/TIA is low on my list of DDX . Now back to his base line - MRI of brain might not be done due to ? h/o stents - even if he had a stroke, for secondary prophylaxis he is on ASA and plavix. BP controlled and LDL within goal - EEG done , spoke to neuro , will have a read today ( might be negative though ) 2- Fever and Leuocytosis : possible source is aspiration pneumonitis /Pnaemonia case was d/w Dr. Ziegler. cont zosyn, no need fro vanco 3- Acute resp failure: ? aspiration ,? TIA , ? seizure . Extubated briefly after intubation . last night with apnic episodes with hypoxia while asleep, Sat o2 NL again when awake . PE is unlikely - Cont empiric Abx - No signs of acute heart failure. - d/w Speech, MBS today 4- LLE DVT : - COnt heparin gtt - Due to recurrent falls , will be at high risk for bleed with jail anticoagulation . Will d/w family IVC filter option 5- CHUCK : h/o renal transplant. Cr at base line - cont gentle hydration. might be able to dc IVF tomorrow if good po intake. - follow tacrulimus level - cont tacrulimus, prednsione and mycophenolate 6- DM : - cont SSI . - Resume levemir at 15 units in am as now awake and eating 7- HTN: hypotensive this am . - cont norvasc , and coreg withholding parameters. - d/c hydralazin for now 8- CAD : s/p CABG . - cont coreg, ASA, Plavix. 9- DVT px Tx to floor
--- NOTE | 2017-01-04 15:22 | PN ---
Physical Exam: SUBJECTIVE: Patient seen and examined. awake, alert, talking, following commands appropriately. denied chest pain, sob. chart reviewed: overnight events; was on bipap becuase he was found to have episodes of sleep apnea OBJECTIVE: Vital Signs Period Temp Pulse Resp BP Sys/Mendoza Pulse Ox Last 24 Hr 98.2 F-101.3 F 70-86 20-29 86-149/19-60 94-95 GENERAL: The patient is awake, alert, in no acute distress. EYES: right pupil fixed and constricted to direct and indirect light stimuli. Left reactive to light. extraocular movements intact, sclera anicteric, b/l pale conjuctiva, No ptosis. LUNGS: Breath sounds scattered rales and crackles b/l. HEART: regular rate and regular rhythm, S1, S2 without murmur, rub or gallop. ABDOMEN: Soft, nontender, nondistended EXTREMITIES:1+ pulses, warm, well-perfused, no edema. Psych: makes eye contact Rodriguez in place - tea colored urine Laboratory Results - last 24 hr 01/01/17 01/02/17 01/02/17 21:46 00:49 02:41 WBC RBC Hgb Hct MCV MCHC RDW Plt Count MPV PTT (Actin FS) Sodium Potassium Chloride Carbon Dioxide Anion Gap BUN Creatinine Creat Clearance w eGFR POC Glucometer 230.56599 152.76360 141.73757 Random Glucose Calcium Phosphorus Magnesium Total Bilirubin AST ALT Alkaline Phosphatase Total Protein Albumin Tacrolimus 01/02/17 01/02/17 01/02/17 05:20 17:10 23:54 WBC RBC Hgb Hct MCV MCHC RDW Plt Count MPV PTT (Actin FS) Sodium Potassium Chloride Carbon Dioxide Anion Gap BUN Creatinine Creat Clearance w eGFR POC Glucometer 208.57964 145.56266 Random Glucose Calcium Phosphorus Magnesium Total Bilirubin AST ALT Alkaline Phosphatase Total Protein Albumin Tacrolimus 6.7 01/03/17 01/03/17 01/03/17 05:20 11:33 12:46 WBC RBC Hgb Hct MCV MCHC RDW Plt Count MPV PTT (Actin FS) Sodium Potassium Chloride Carbon Dioxide Anion Gap BUN Creatinine Creat Clearance w eGFR POC Glucometer 117.56907 62.91295 95.51027 Random Glucose Calcium Phosphorus Magnesium Total Bilirubin AST ALT Alkaline Phosphatase Total Protein Albumin Tacrolimus 01/03/17 01/03/17 01/03/17 15:15 18:06 20:45 WBC RBC Hgb Hct MCV MCHC RDW Plt Count MPV PTT (Actin FS) 32.1 D 181.5 H D Sodium Potassium Chloride Carbon Dioxide Anion Gap BUN Creatinine Creat Clearance w eGFR POC Glucometer 117.88621 Random Glucose Calcium Phosphorus Magnesium Total Bilirubin AST ALT Alkaline Phosphatase Total Protein Albumin Tacrolimus 01/04/17 01/04/17 01/04/17 03:36 06:40 08:30 WBC 12.3 H RBC 4.07 Hgb 11.8 Hct 36.4 MCV 89.4 MCHC 32.4 RDW 14.6 Plt Count 150 MPV 8.3 D PTT (Actin FS) Sodium Potassium Chloride Carbon Dioxide Anion Gap BUN Creatinine Creat Clearance w eGFR POC Glucometer 157.83148 175.25756 Random Glucose Calcium Phosphorus Magnesium Total Bilirubin AST ALT Alkaline Phosphatase Total Protein Albumin Tacrolimus 01/04/17 01/04/17 01/04/17 08:30 08:30 11:56 WBC RBC Hgb Hct MCV MCHC RDW Plt Count MPV PTT (Actin FS) 77.9 H D Sodium 139 Potassium 3.8 Chloride 103 Carbon Dioxide 27 Anion Gap 9 BUN 20 H D Creatinine 1.3 Creat Clearance w eGFR 53.96 POC Glucometer 345.76391 Random Glucose 92 Calcium 8.1 L Phosphorus 2.9 D Magnesium 1.7 L Total Bilirubin 0.6 AST 19 ALT 14 Alkaline Phosphatase 61 D Total Protein 5.3 L Albumin 2.6 L D Tacrolimus Active Medications Generic Name Dose Route Start Last Admin Trade Name Freq PRN Reason Stop Dose Admin Amlodipine Besylate 10 mg 01/04/17 10:00 01/04/17 11:31 Norvasc - PO 10 mg DAILY HUGO Administration Aspirin 81 mg 01/02/17 22:00 01/03/17 21:19 Asa - PO 81 mg HS HUGO Administration Atorvastatin Calcium 10 mg 01/02/17 22:00 01/03/17 21:19 Lipitor - PO 10 mg HS HUGO Administration Carvedilol 25 mg 01/04/17 10:00 01/04/17 11:30 Coreg - PO 25 mg BID HUGO Administration Clopidogrel Bisulfate 75 mg 01/03/17 10:00 01/04/17 11:32 Plavix - PO 75 mg DAILY HUGO Administration Docusate Sodium 100 mg 01/02/17 14:05 Colace - PO BID PRN CONSTIPATION Duloxetine HCl 20 mg 01/03/17 22:00 01/04/17 11:31 Cymbalta - PO 20 mg BID HUGO Administration Heparin Sodium (Porcine) 1,000 unit 01/02/17 22:07 Heparin - IVPUSH PRN PRN Heparin Heparin Sodium (Porcine) 5,000 unit 01/02/17 22:07 01/03/17 16:56 Heparin - IVPUSH 5,000 unit PRN PRN Administration Heparin Heparin Sodium/Dextrose 500 mls @ 20 mls/hr 01/03/17 01:25 01/04/17 12:21 Heparin Infusion - IVPB 19 mls/hr TITR HUGO Administration Protocol 1,000 UNITS/HR Insulin Aspart 1 vial 01/02/17 16:30 01/04/17 11:59 Novolog Vial Sliding Scale - SQ 8 units ACHS HUGO Administration Protocol Lactobacillus Acidophilus 1 tab 01/03/17 10:00 01/04/17 11:30 Bacid - PO 1 tab DAILY HUGO Administration Mycophenolate Sodium 360 mg 01/02/17 22:00 01/04/17 11:31 Mycophenolic Acid PO 360 mg BID HUGO Administration Piperacillin Sod/Tazobactam Sod 3.375 gm 01/02/17 11:00 01/04/17 11:32 Zosyn 3.375gm Ivpb (Pre-Docked) IVPB 3.375 gm Q8H-IV HUGO Administration Protocol Prednisone 5 mg 01/03/17 10:00 01/04/17 11:31 Deltasone - PO 5 mg DAILY HUGO Administration Tacrolimus 1 mg 01/02/17 22:00 01/04/17 11:32 Prograf (Non-Formulary) PO 1 mg BID HUGO Administration Tamsulosin HCl 0.4 mg 01/02/17 22:00 01/03/17 21:19 Flomax - PO 0.4 mg HS HUGO Administration ASSESSMENT/PLAN: 76 yr old man with multiple co-morbidities BIBEMS when he was found down in his apartment assumed fall found to be be hyperglycemic with elevated white count and requiring intubation in ED due to unresponsivess. - discussed with renal transplant dr at [facility], no record of cardiac stents in their charts, pt's baseline Cr is 1.5, last visit was aug 2016. - discussed with [facility] medical records, faxed form for procedural notes for stents , will f/u tomorrow thought unlikely they will have records available. - for MBS test tomorrow to evaluate for silent aspiration #Altered mental status with anisocoria s/p extubation- unknown etiology; - mental status has returned to baseline with patient responding appropriately and oriented x3, suspicion for seizures given episodic nature of declined responsiveness with short duration of AMS and forgetfullness, likely post-ictal phase. - EEG pending read - head ct x3 with chronic changes, no acute infarct or hemorrhage noted, MRI pending to r/o brainstem ischemia - plavix 75mg daily - tacrolimus level 6, therapeutic dose 5-20, unlikely that tacrolimus toxicity is causing AMS #Fever with leucocytosis - broad sprectrum abx given immunocompromised status secondary to renal transplant immunosuppressive medications, zosyn 3.375 q8 - chest xray with increased perihilar markings, possible atelectasis or new infiltrate on right - ucx and bld cx, legionella, flu swab negative for growth - ID consulted #DVT - heparin drip protocol - to discuss IVC filter with family vs oral anticoagulation, however given hx of falls, IVC may be better option #CHUCK (baseline 0.9 09/2016) (s/p renal transplant) - improved - tacrolimus, prednisone, mycophenolate - continue medications for immunosuppression, monitior BMP for acute rise - maintain rodriguez - if Cr rises will consult Dr. Perez #DM - uncontrolled, - ISS - levemir #HTN - hyralazine 25mg po bid - Norvasc 10mg po daily - coreg 25mg po bid #CAD s/p stents - coreg - ASA - plavix #DVT - heparin drip #Diet - diabetic diet - dysphagia diet nectar consistency Visit type - Emergency Visit Emergency Visit: No - New Patient This patient is new to me today: No - Critical Care Critical Care patient: Yes Total Critical Care Time (in minutes): 45 Critical Care Statement: The care of this patient involved high complexity decision making to prevent further life threatening deterioration of the patient 's condition and/or to evalute & treat vital organ system(s) failure or risk of failure.
--- NOTE | 2017-01-04 19:22 | CONS ---
DATE OF CONSULTATION: DATE OF DICTATION: 01/04/2017 INFECTIOUS DISEASE CONSULTATION REQUESTING PHYSICIAN: Hospitalist service. CONSULTING PHYSICIAN: Lois Naik M.D. HISTORY OF PRESENT ILLNESS: This is a 76-year-old man with a history of coronary artery disease. He is status post CABG. He has a history of diabetes and kidney transplant about 4 years ago. He presented on the with complaints of increased blood sugars and dizziness. He lives alone. He had no fever on admission. The next day he was found unresponsive on the floor. Concern was for possible CVA. He was intubated to protect his airway, and he was transferred to the ICU. He has had some fever post intubation, and I am asked to see him regarding this. He has been extubated successfully. Currently he is awake and alert. He just ate some full liquids, he is hungry. He is oriented to person and place but he does not know the date. PAST MEDICAL HISTORY: Notable for history of CHF, hypertension, coronary artery disease, diabetes, hypercholesterolemia status post CABG and renal transplant; renal transplant was done in 2011. He apparently also has a stent. HOSPITAL COURSE: As noted. FAMILY HISTORY: Noncontributory. ALLERGIES: No known drug allergies. HOME MEDICATIONS: Include aspirin, tamsulosin, Lipitor, Plavix, amlodipine, Coreg, Colace, Apresoline, Roxicodone, insulin, Deltasone 5 mg a day and Bacid. SOCIAL HISTORY: There is no history of cigarette, alcohol, or substance use. He does live alone and he receives meals on wheels. REVIEW OF SYSTEMS: He currently is resting comfortably, and he has no complaints. PHYSICAL EXAMINATION: General: He is awake and alert. Vital signs: Temperature now is 98.2, T-max is 101.3 overnight, pulse 75, blood pressure 134/35, he weighs 156 pounds. HEENT: Normocephalic. Eyes are anicteric. Neck: Supple. Lungs: Diminished breath sounds at the bases. Heart: Regular rate and rhythm. Abdomen: Soft, nontender. Extremities: Without edema. Skin: He has no skin breakdown. LABORATORY: White count this morning is 12.3, hemoglobin 11.8. His BUN and creatinine are 20 and 1.3. LFTs are normal. Urinalysis is negative for white cells. Cultures of blood were drawn on the and are negative, and urine is negative as well. Flu screen was negative. A chest x-ray done yesterday is notable for increased hilar markings and question of a right basilar infiltrate. Duplex of his legs are notable for a left popliteal DVT. IMPRESSION: In summary, this is a 76-year-old man with fever status post renal transplant. He was afebrile on admission. Fevers have been post intubation which would favor aspiration. Would follow up his cultures. Would obtain a legionella antigen for completeness which has been ordered. Would continue Zosyn. Clinically is improved. I would repeat a chest x-ray as well. Further recommendations to follow based on his clinical course. LOIS NAIK M.D. [id number] MTDD
[2017-01-04] MEDS ORDERED: INSULIN DETEMIR 100 UNITS/ML MDV SQ ONE (20:41)
[2017-01-04] MEDS: ASPIRIN 81 MG CHEWABLE TABLETS PO SCH (21:07)
[2017-01-04] MEDS: TAMSULOSIN HCL 0.4 MG CAP.ER.24H (FP) PO SCH (21:07)
[2017-01-04] MEDS: ATORVASTATIN CA 10 MG TABLET (FP) PO SCH (21:08)
[2017-01-05] MEDS: HEPARIN INFUSION - 500 ML IVPB SCH (01:17)
[2017-01-05] MEDS: PIPERACILLIN/TAZOB 3.375 GM/50 ML PRE-DOCKED IVPB SCH ×3 (01:18→17:59)
[2017-01-05] MEDS: INSULIN SLIDING SCALE (NOVOLOG) 1 VIAL SQ SCH ×4 (06:36→22:18)
[2017-01-05] MEDS: INSULIN DETEMIR 100 UNITS/ML MDV SQ SCH (06:37)
[2017-01-05 07:27] LABS: MCH 29.4 pg (25.7-33.7); MCHC 33.2 g/dl (32.0-35.9); MEAN CELL VOLUME 88.6 fl (80-96); MEAN PLT VOLUME 9.1 fl (7.5-11.1); PLATELET COUNT 142 K/MM3 (134-434); RDW 14.7 % (11.9-15.9); WHITE BLOOD COUNT 7.6 K/mm3 (4.0-10.0)
[2017-01-05 07:49] LABS: ALBUMIN 2.5 g/dl (3.4-5.0); CALCIUM 7.9 mg/dL (8.5-10.1); CREATININE 1.3 mg/dL (0.7-1.3); PHOSPHOROUS 2.7 mg/dL (2.5-4.9)
[2017-01-05 07:52] LABS: BILIRUBIN,TOTAL 0.4 mg/dL (0.2-1.0); MAGNESIUM 1.6 mg/dL (1.8-2.4); TOT PROT 4.9 g/dl (6.4-8.2)
--- NOTE | 2017-01-05 08:41 | PN ---
Physical Exam: SUBJECTIVE: Patient seen and examined. feels well, no complaints. denies SOB, chest pain, headache, changes in vision. OBJECTIVE: Vital Signs Period Temp Pulse Resp BP Sys/Mendoza Pulse Ox Last 24 Hr 97.4 F-98.5 F 55-75 12-20 91-137/19-45 94-100 GENERAL: The patient is awake, alert, and oriented to person, place, age/ birthday and location, in no acute distress. HEAD: Normal with no signs of trauma. EYES: fixed defect in right pupil. left pupil wnl, sclera clear, conjuctiva pale , anicteric, eomi. ENT: oropharynx clear without exudates/erythema, dentures in place. moist mucous membranes. NECK: Trachea midline, full range of motion, supple. LUNGS: Breath sounds with scattered rhonchi, no wheezing, no crackles. HEART: Regular rate and rhythm, S1, S2 without murmur, rub or gallop. ABDOMEN: Soft, nontender, nondistended, normoactive bowel sounds, no guarding, no rebound, no hepatosplenomegaly, no masses. EXTREMITIES: 2+ pulses, warm, well-perfused, no edema. sensation and motor function intact at b/l shoulder, elbow, wrist and fingers. palpable thrill on right upper arm. NEUROLOGICAL: Cranial nerves II through XII grossly intact. Normal speech, gait not observed. PSYCH: Normal mood, normal affect. rodriguez in place. Laboratory Results - last 24 hr 01/02/17 01/04/17 01/04/17 05:20 08:30 08:30 WBC 12.3 H RBC 4.07 Hgb 11.8 Hct 36.4 MCV 89.4 MCHC 32.4 RDW 14.6 Plt Count 150 MPV 8.3 D PTT (Actin FS) 77.9 H D Sodium Potassium Chloride Carbon Dioxide Anion Gap BUN Creatinine Creat Clearance w eGFR POC Glucometer Random Glucose Calcium Phosphorus Magnesium Total Bilirubin AST ALT Alkaline Phosphatase Total Protein Albumin Stool Occult Blood Tacrolimus 6.7 01/04/17 01/04/17 01/04/17 08:30 11:56 13:00 WBC RBC Hgb Hct MCV MCHC RDW Plt Count MPV PTT (Actin FS) Sodium 139 Potassium 3.8 Chloride 103 Carbon Dioxide 27 Anion Gap 9 BUN 20 H D Creatinine 1.3 Creat Clearance w eGFR 53.96 POC Glucometer [phone] Random Glucose 92 Calcium 8.1 L Phosphorus 2.9 D Magnesium 1.7 L Total Bilirubin 0.6 AST 19 ALT 14 Alkaline Phosphatase 61 D Total Protein 5.3 L Albumin 2.6 L D Stool Occult Blood Negative Tacrolimus 01/04/17 01/05/17 01/05/17 18:50 06:10 06:10 WBC 7.6 D RBC 3.62 L Hgb 10.6 L D Hct 32.1 L MCV 88.6 MCHC 33.2 RDW 14.7 Plt Count 142 MPV 9.1 PTT (Actin FS) 57.1 H Sodium Potassium Chloride Carbon Dioxide Anion Gap BUN Creatinine Creat Clearance w eGFR POC Glucometer Random Glucose 458 H* D Calcium Phosphorus Magnesium Total Bilirubin AST ALT Alkaline Phosphatase Total Protein Albumin Stool Occult Blood Tacrolimus 01/05/17 01/05/17 06:10 06:20 WBC RBC Hgb Hct MCV MCHC RDW Plt Count MPV PTT (Actin FS) Sodium 139 Potassium 4.1 Chloride 103 Carbon Dioxide 29 Anion Gap 7 L BUN 20 H Creatinine 1.3 Creat Clearance w eGFR 53.96 POC Glucometer 171 Random Glucose 192 H D Calcium 7.9 L Phosphorus 2.7 Magnesium 1.6 L Total Bilirubin 0.4 D AST 13 L D ALT 13 Alkaline Phosphatase 53 Total Protein 4.9 L Albumin 2.5 L Stool Occult Blood Tacrolimus Active Medications Amlodipine Besylate (Norvasc -) 10 mg PO DAILY [facility] Last Admin: 01/05/17 10:01 Dose: 10 mg Aspirin (Asa -) 81 mg PO HS [facility] Last Admin: 01/04/17 21:07 Dose: 81 mg Atorvastatin Calcium (Lipitor -) 10 mg PO HS [facility] Last Admin: 01/04/17 21:08 Dose: 10 mg Carvedilol (Coreg -) 25 mg PO BID [facility] Last Admin: 01/05/17 10:01 Dose: 25 mg Clopidogrel Bisulfate (Plavix -) 75 mg PO DAILY [facility] Last Admin: 01/05/17 10:01 Dose: 75 mg Docusate Sodium (Colace -) 100 mg PO BID PRN PRN Reason: CONSTIPATION Duloxetine HCl (Cymbalta -) 20 mg PO BID [facility] Last Admin: 01/05/17 10:00 Dose: 20 mg Insulin Aspart (Novolog Vial Sliding Scale -) 1 vial SQ ACHS [facility] PRN Reason: Protocol Last Admin: 01/05/17 18:56 Dose: Not Given Insulin Detemir (Levemir Vial) 15 units SQ AM [facility] Last Admin: 01/05/17 06:37 Dose: 15 units Lactobacillus Acidophilus (Bacid -) 1 tab PO DAILY [facility] Last Admin: 01/05/17 10:00 Dose: 1 tab Mycophenolate Sodium (Mycophenolic Acid) 360 mg PO BID [facility] Last Admin: 01/05/17 10:02 Dose: 360 mg Piperacillin Sod/Tazobactam Sod (Zosyn 3.375gm Ivpb (Pre-Docked)) 3.375 gm IVPB Q8H-IV [facility] PRN Reason: Protocol Last Admin: 01/05/17 17:59 Dose: 3.375 gm Prednisone (Deltasone -) 5 mg PO DAILY [facility] Last Admin: 01/05/17 10:01 Dose: 5 mg Tacrolimus (Prograf (Non-Formulary)) 1 mg PO BID [facility] Last Admin: 01/05/17 10:02 Dose: 1 mg Tamsulosin HCl (Flomax -) 0.4 mg PO HS [facility] Last Admin: 01/04/17 21:07 Dose: 0.4 mg ASSESSMENT/PLAN: 76 yr old man with multiple co-morbidities BIBEMS when he was found down in his apartment assumed fall found to be be hyperglycemic with elevated white count and requiring intubation in ED due to unresponsivess. - EEG with slowing mentation, discussed with Dr. Yoder no indication for Keppra, agrees with outpatient follow-up for further evaluation of cognitive decline. - - - symptoms likely from as AMS seems to occur more at night. - no information from [facility] today, will f/u tomorrow thought unlikely they will have records available. - d/c'd rodriguez today - MBS: pt would benefit from swallowin therapy. - PT eval, walked <50 ft, will discuss rehab with CS and family and plan for discharge tomorrow #Altered mental status with anisocoria s/p extubation- - mental status has returned to baseline with patient responding appropriately and oriented x3 - head ct x3 with chronic changes, no acute infarct or hemorrhage noted - will d/c MRI as stent information has been unobtainable. - plavix 75mg daily - tacrolimus level 6, therapeutic dose 5-20, unlikely that tacrolimus toxicity is causing AMS #Fever with leucocytosis - improved - broad sprectrum abx given immunocompromised status secondary to renal transplant immunosuppressive medications, zosyn 3.375 q8 ( Day 4 ) - ucx and bld cx, legionella, flu swab negative for growth - ID consulted, will discuss further need for antibiotics #DVT - IVC filter placed today - d/c heparin #CHUCK (baseline 0.9 09/2016) (s/p renal transplant) - improved - tacrolimus, prednisone, mycophenolate - continue medications for immunosuppression, monitior BMP for acute rise - if Cr rises will consult Dr. Perez #DM - uncontrolled - ISS - levemir - lantus added in the AM #HTN - hyralazine 25mg po bid - Norvasc 10mg po daily - coreg 25mg po bid #CAD s/p stents - coreg - ASA - plavix #DVT - IVD filter #Diet - diabetic diet - dysphagia diet nectar consistency Visit type - Emergency Visit Emergency Visit: No - New Patient This patient is new to me today: No - Critical Care Critical Care patient: No - Discharge Referral Referred to [facility] Med [facility] No
[2017-01-05] MEDS: DULoxetine HCL 20 MG CAPSULE.DR (FP) PO SCH ×2 (10:00→22:16)
[2017-01-05] MEDS: LACTOBACILLUS ACIDOPHILUS 1 EACH TAB (FP) PO SCH (10:00)
[2017-01-05] MEDS: amLODIPine BESYLATE 10 MG TABLET (FP) PO SCH (10:01)
[2017-01-05] MEDS: CLOPIDOGREL BISULFATE 75 MG TABLET (FP) PO SCH (10:01)
[2017-01-05] MEDS: CARVEDILOL 25 MG TABLET (FP) PO SCH ×2 (10:01→22:16)
[2017-01-05] MEDS: predniSONE 5 MG TABLET (UD) PO SCH (10:01)
[2017-01-05] MEDS: MYCOPHENOLATE SODIUM 360 MG TABLET.DR PO SCH ×2 (10:02→22:17)
[2017-01-05] MEDS: TACROLIMUS ANHYDROUS 1 MG CAPSULE (NF) PO SCH ×2 (10:02→22:18)
[2017-01-05] MEDS ORDERED: MAGNESIUM OXIDE 400 MG TABLET (FP) PO ONE (10:38)
--- NOTE | 2017-01-05 11:12 | PN ---
Progress Note (short form) - Note Progress Note: Neurology Follow up 76 year old male with PMH HTN, AR s/p CABG, DM, ESRD s/p Kidney transplant, HPLD admitted to hospital s/p fall r/o syncope was found unresponsive with normal vitals, anicorsia with a Negative head CT was intubated/extubated. Patient is awake, alert oriented to place and person, but not to time. Does not recall the events that brought him to the hospital and follows simple directions. No focal deficits. Downgraded to floor status. Spoke to primary team and they were inquiring about EEG which has been read by Dr. Garcia with slowing but no epileptiform activity. Does not appear to have seizures, seems be sundowning events at night time, would not add antiepileptics at this time. Last Vital Signs Temp Pulse Resp BP Pulse Ox 97.6 F 75 16 126/45 96 01/05/17 06:00 01/05/17 09:23 01/05/17 06:00 01/05/17 06:00 01/05/17 09:23 GENERAL:~ Well-appearing, well-nourished. No apparent distress. HEENT:~ Normocephalic, atraumatic. Right pupil 2mn, non reactive with hazy cornea, left pupil 3mn reactive. EOM intact. CARDIOVASCULAR:~ Normal S1, S2. Regular rate and rhythm. PULMONARY:~ Clear to auscultation bilaterally. ABDOMEN:~ Soft, non-distended, non-tender.~ EXTREMITIES:~ Normal ROM in all four extremities. No gross deformities. SKIN:~ Warm, dry.~ No rash NEUROLOGICAL:~ No focal neurological deficits. Alert, awake, appropriate. Cranial nerves 2-12 intact. No deficits to light touch and temperature in face, upper extremities and lower extremities. No motor deficits in the in face, upper extremities and lower extremities. Normoreflexic in the upper and lower extremities. CBCD WBC 7.6 K/mm3 (4.0-10.0) D 01/05/17 06:10 RBC 3.62 M/mm3 (4.00-5.60) L 01/05/17 06:10 Hgb 10.6 GM/dL (11.7-16.9) L D 01/05/17 06:10 Hct 32.1 % (35.4-49) L 01/05/17 06:10 MCV 88.6 fl (80-96) 01/05/17 06:10 MCHC 33.2 g/dl (32.0-35.9) 01/05/17 06:10 RDW 14.7 % (11.9-15.9) 01/05/17 06:10 Plt Count 142 K/MM3 (134-434) 01/05/17 06:10 MPV 9.1 fl (7.5-11.1) 01/05/17 06:10 CMP Sodium 139 mmol/L (136-145) 01/05/17 06:10 Potassium 4.1 mmol/L (3.5-5.1) 01/05/17 06:10 Chloride 103 mmol/L (98-107) 01/05/17 06:10 Carbon Dioxide 29 mmol/L (21-32) 01/05/17 06:10 Anion Gap 7 (8-16) L 01/05/17 06:10 BUN 20 mg/dL (7-18) H 01/05/17 06:10 Creatinine 1.3 mg/dL (0.7-1.3) 01/05/17 06:10 Creat Clearance w eGFR 53.96 (>60) 01/05/17 06:10 Calcium 7.9 mg/dL (8.5-10.1) L 01/05/17 06:10 Total Bilirubin 0.4 mg/dL (0.2-1.0) D 01/05/17 06:10 AST 13 U/L (15-37) L D 01/05/17 06:10 ALT 13 U/L (12-78) 01/05/17 06:10 Alkaline Phosphatase 53 U/L (45-117) 01/05/17 06:10 Total Protein 4.9 g/dl (6.4-8.2) L 01/05/17 06:10 Albumin 2.5 g/dl (3.4-5.0) L 01/05/17 06:[address] head 01/01/17: No acute infarct is seen within the limitations of CT. Small chronic left posterior frontal cortical infarct. Small chronic left thalamic infarct. Small left frontal subcortical infarct. Moderate periventricular and subcortical microvascular ischemic gliosis. Prominent atherosclerotic vascular calcifications. Mild to moderate generalized cerebral atrophy with corresponding ventricular dilatation. No extra-axial fluid collection. There is no obvious mass lesion. CT head [place] 01/02/17 : No definite interval change is identified in comparison to a prior study performed 3 hours earlier on 01/01/2017 (aside from incidental note of interval insertion of a nasogastric tube). US carotid 01/02/17: Moderate size plaques in the proximal common carotid artery. There are also moderate-sized plaques at the common carotid bifurcation , bulb and proximal internal carotid artery without evidence of hemodynamically significant stenosis. Note is made of high peak systolic velocity in the right vertebral artery of 103 cm/s. Correlation with MRA or CTA of the neck is needed for further evaluation of left side of the neck US lower extremities 01/02/16: Left popliteal DVT CT head w/o contrast 01/03/2017: Focal old infarcts in the left thalamus and basal ganglia. No gross acute infarct is identified. Correlate clinically to determine further evaluation and follow-up. Plan: 76 year old male with PMH HTN, [place] s/p CABG, DM, ESRD s/p Kidney transplant, HPLD admitted to hospital s/p fall r/o syncope was found unresponsive with normal vitals, anicorsia with a Negative head CT was intubated/extubated. Patient is awake, alert oriented to place and person, but not to time. Does not recall the events that brought him to the hospital and follows simple directions. No focal deficits. Remains in ICU in critical condition and being monitored closely. Loss of consciousness possibly Posterior CVA/brainstem Ischemia, seizure, infectious causes, metabolic causes, medication effect. CT head negative X3 with chronic changes US carotid showed moderate plaque in common carotid but no significant stenosis MRI brain without contrast pending EEG with slowing but no epileptiform activity Likely sundowning events occuring Monitor for electrolytes abnormalities, optimize Blood sugar Optimize Blood LDL with Goal of 70 or lower Blood Pressure goal 120's-140's Continue anti-HTN medications, Coreg, hydralazine On ASA 81, Plavix 75mg Pt is on anticoagulation with heparin drip for DVT. Watch out for bleeding especially with combination with antiplatelet. s
[2017-01-05] MEDS ORDERED: INSULIN (NOVOLOG) ASPART 100 UNITS/ML 10ML VIAL ONE (12:52)
--- NOTE | 2017-01-05 18:08 | PN ---
Teaching Attending Note Name of Resident: Christian Mckeon ATTENDING PHYSICIAN STATEMENT I saw and evaluated the patient. I reviewed the resident's note and discussed the case with the resident. I agree with the resident's findings and plan as documented. SUBJECTIVE: Patient is awake, has no new complain, no fever or chills, no shortness of breath, no abdominal pain. OBJECTIVE: Vital Signs Temperature 98.0 F 01/05/17 14:32 Pulse Rate 70 01/05/17 17:12 Respiratory Rate 16 01/05/17 17:12 Blood Pressure 131/49 01/05/17 17:12 O2 Sat by Pulse Oximetry (%) 100 01/05/17 17:12 ENERAL: The patient is awake, alert, and oriented to person, place, age/ birthday and location, in no acute distress. HEAD: Normal with no signs of trauma. EYES: fixed defect in right pupil. left pupil wnl, sclera clear, conjuctiva pale , anicteric, eomi. ENT: oropharynx clear without exudates/erythema, dentures in place. moist mucous membranes. NECK: Trachea midline, full range of motion, supple. LUNGS: Breath sounds with scattered rhonchi, no wheezing, no crackles. HEART: Regular rate and rhythm, S1, S2 positive, SEM2/6 ,no rub or gallop. ABDOMEN: Soft, nontender, nondistended, normoactive bowel sounds, no guarding, no rebound, no hepatosplenomegaly, no masses. EXTREMITIES: 2+ pulses, warm, well-perfused, palpable thrill on right upper arm. NEUROLOGICAL: Cranial nerves II through XII grossly intact. Normal speech, gait not observed. PSYCH: Normal mood, normal affect. : Monahan in place. CBCD WBC 7.6 K/mm3 (4.0-10.0) D 01/05/17 06:10 RBC 3.62 M/mm3 (4.00-5.60) L 01/05/17 06:10 Hgb 10.6 GM/dL (11.7-16.9) L D 01/05/17 06:10 Hct 32.1 % (35.4-49) L 01/05/17 06:10 MCV 88.6 fl (80-96) 01/05/17 06:10 MCHC 33.2 g/dl (32.0-35.9) 01/05/17 06:10 RDW 14.7 % (11.9-15.9) 01/05/17 06:10 Plt Count 142 K/MM3 (134-434) 01/05/17 06:10 MPV 9.1 fl (7.5-11.1) 01/05/17 06:10 CMP Sodium 139 mmol/L (136-145) 01/05/17 06:10 Potassium 4.1 mmol/L (3.5-5.1) 01/05/17 06:10 Chloride 103 mmol/L (98-107) 01/05/17 06:10 Carbon Dioxide 29 mmol/L (21-32) 01/05/17 06:10 Anion Gap 7 (8-16) L 01/05/17 06:10 BUN 20 mg/dL (7-18) H 01/05/17 06:10 Creatinine 1.3 mg/dL (0.7-1.3) 01/05/17 06:10 Creat Clearance w eGFR 53.96 (>60) 01/05/17 06:10 Random Glucose 192 mg/dL (74-106) H D 01/05/17 06:10 Calcium 7.9 mg/dL (8.5-10.1) L 01/05/17 06:10 Total Bilirubin 0.4 mg/dL (0.2-1.0) D 01/05/17 06:10 AST 13 U/L (15-37) L D 01/05/17 06:10 ALT 13 U/L (12-78) 01/05/17 06:10 Alkaline Phosphatase 53 U/L (45-117) 01/05/17 06:10 Total Protein 4.9 g/dl (6.4-8.2) L 01/05/17 06:10 Albumin 2.5 g/dl (3.4-5.0) L 01/05/17 06:10 CARDIAC ENZYMES Creatine Kinase 394 IU/L (39-308) H D 01/01/17 17:12 Troponin I 0.03 ng/ml (0.00-0.05) 01/02/17 05:20 Current Medications Generic Name Dose Route Start Last Admin Trade Name Freq PRN Reason Stop Dose Admin Amlodipine Besylate 10 mg 01/04/17 10:00 01/05/17 10:01 Norvasc - PO 10 mg DAILY [facility] Administration Aspirin 81 mg 01/02/17 22:00 01/04/17 21:07 Asa - PO 81 mg HS [facility] Administration Atorvastatin Calcium 10 mg 01/02/17 22:00 01/04/17 21:08 Lipitor - PO 10 mg HS [facility] Administration Carvedilol 25 mg 01/04/17 10:00 01/05/17 10:01 Coreg - PO 25 mg BID [facility] Administration Clopidogrel Bisulfate 75 mg 01/03/17 10:00 01/05/17 10:01 Plavix - PO 75 mg DAILY [facility] Administration Docusate Sodium 100 mg 01/02/17 14:05 Colace - PO BID PRN CONSTIPATION Duloxetine HCl 20 mg 01/03/17 22:00 01/05/17 10:00 Cymbalta - PO 20 mg BID [facility] Administration Heparin Sodium (Porcine) 1,000 unit 01/02/17 22:07 Heparin - IVPUSH PRN PRN Heparin Heparin Sodium (Porcine) 5,000 unit 01/02/17 22:07 01/03/17 16:56 Heparin - IVPUSH 5,000 unit PRN PRN Administration Heparin Heparin Sodium/Dextrose 500 mls @ 20 mls/hr 01/03/17 01:25 01/05/17 01:17 Heparin Infusion - IVPB 19 mls/hr TITR [facility] Administration Protocol 1,000 UNITS/HR Insulin Aspart 1 vial 01/02/17 16:30 01/05/17 12:57 Novolog Vial Sliding Scale - SQ 8 units ACHS [facility] Administration Protocol Insulin Detemir 15 units 01/05/17 07:00 01/05/17 06:37 Levemir Vial SQ 15 units AM [facility] Administration Lactobacillus Acidophilus 1 tab 01/03/17 10:00 01/05/17 10:00 Bacid - PO 1 tab DAILY [facility] Administration Mycophenolate Sodium 360 mg 01/02/17 22:00 01/05/17 10:02 Mycophenolic Acid PO 360 mg BID [facility] Administration Piperacillin Sod/Tazobactam Sod 3.375 gm 01/02/17 11:00 01/05/17 17:59 Zosyn 3.375gm Ivpb (Pre-Docked) IVPB 3.375 gm Q8H-IV [facility] Administration Protocol Prednisone 5 mg 01/03/17 10:00 01/05/17 10:01 Deltasone - PO 5 mg DAILY [facility] Administration Tacrolimus 1 mg 01/02/17 22:00 01/05/17 10:02 Prograf (Non-Formulary) PO 1 mg BID [facility] Administration Tamsulosin HCl 0.4 mg 01/02/17 22:00 01/04/17 21:07 Flomax - PO 0.4 mg HS [facility] Administration Home Medications Medication Instructions Recorded Aspirin [ASA -] 81 mg PO HS 10/31/12 Tamsulosin HCl 0.4 mg PO HS 10/31/12 Atorvastatin Calcium [Lipitor] 10 mg PO HS 06/18/13 Tacrolimus [Prograf] 1 mg PO BID 04/08/16 Clopidogrel Bisulfate [Plavix -] 75 mg PO DAILY #30 tablet 04/13/16 Amlodipine Besylate 10 mg PO DAILY 04/28/16 Acetaminophen [Tylenol .Regular 650 mg PO Q6H PRN #0 tablet 05/03/16 Strength -] Carvedilol [Coreg -] 25 mg PO BID tablet 05/03/16 Docusate Sodium [Colace -] 100 mg PO BID PRN #0 capsule 05/03/16 Oxycodone HCl [Roxicodone -] 5 mg PO Q6H PRN #0 tablet MDD 4 05/03/16 Collagenase Clostridium Hist. 1 applic TP DAILY #30 applic 08/11/16 [Santyl -] Insulin (Levemir) [Levemir Vial] 25 units SQ AM ml 09/28/16 Insulin Sliding Scale [Novolog 1 vial SQ ACHS units 09/28/16 Vial Sliding Scale -] Mycophenolate Sodium [Myfortic -] 360 mg PO BID tablet. 09/28/16 Prednisone [Deltasone -] 5 mg PO DAILY tablet 10/01/16 Lactobacillus Acidophilus [Bacid -] 1 each PO DAILY #10 tab 11/01/16 Hydralazine HCl [Apresoline -] 25 mg BID 01/04/17 ASSESSMENT AND PLAN: Patient is a 76 year old man s/p renal transplant 2012 was admitted on 01/01 with hyperglycemia and dizziness, 01/02 was found unresponsive and was intubated after intubation he developed fevers, therefore patient is receiving Antibiotics for aspiration Pneumonia. # Possible Acute aspiration Pneumonia on IV Zosyn will continue s/p Acute respiratory Failure s/p extubation ID Dr.Dr. Ziegler. # Acute change of MS: S/P EEG, discussed with Neurologist where he stated that patient is sun downing since EEG reports encephalopathy no seizure activity. s/p of 2 episodes of unresponsiveness followed by gain of consciousness .Patient is back to his base line Cannot do MRI of brain since don't know what kind of stents does the patient have. # LLE DVT : on heparin gtt. 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 Cr at base line cont gentle hydration. continue Immunosuppressive therapy ; cont tacrulimus, prednsione and mycophenolate follow tacrulimus level # T2DM cont SSI; Resume levemir at 15 units in am as now awake and eating # HTN:controlled continue meds. cont norvasc , and coreg with holding parameters. d/c hydralazin for now #CAD : s/p CABG . cont coreg, ASA, Plavix. # DVT px :on Heparin IV for now
[2017-01-05] MEDS ORDERED: INSULIN (NOVOLOG) ASPART 100 UNITS/ML 10ML VIAL SQ STA (18:23)
[2017-01-05] MEDS: ASPIRIN 81 MG CHEWABLE TABLETS PO SCH (22:16)
[2017-01-05] MEDS: TAMSULOSIN HCL 0.4 MG CAP.ER.24H (FP) PO SCH (22:16)
[2017-01-05] MEDS: ATORVASTATIN CA 10 MG TABLET (FP) PO SCH (22:16)
[2017-01-06] MEDS: PIPERACILLIN/TAZOB 3.375 GM/50 ML PRE-DOCKED IVPB SCH ×2 (01:33→09:39)
[2017-01-06] MEDS: INSULIN SLIDING SCALE (NOVOLOG) 1 VIAL SQ SCH ×2 (06:06→12:45)
[2017-01-06] MEDS: INSULIN DETEMIR 100 UNITS/ML MDV SQ SCH (06:06)
[2017-01-06 07:19] LABS: BASOPHIL 0.9 % (0-2.0); EOSINOPHIL 3.5 % (0-4.5); MCH 29.4 pg (25.7-33.7); MCHC 33.3 g/dl (32.0-35.9); MEAN CELL VOLUME 88.5 fl (80-96); MEAN PLT VOLUME 8.9 fl (7.5-11.1); NEUTROPHILS 65.9 % (42.8-82.8); PLATELET COUNT 166 K/MM3 (134-434); RDW 14.5 % (11.9-15.9); WHITE BLOOD COUNT 8.5 K/mm3 (4.0-10.0)
[2017-01-06 07:52] LABS: CALCIUM 8.6 mg/dL (8.5-10.1); CREATININE 1.1 mg/dL (0.7-1.3)
--- NOTE | 2017-01-06 09:23 | PN ---
Teaching Attending Note Name of Resident: Christian Mckeon ATTENDING PHYSICIAN STATEMENT I saw and evaluated the patient. I reviewed the resident's note and discussed the case with the resident. I agree with the resident's findings and plan as documented. SUBJECTIVE: Patient feels better with no acute distress. But feeling weak, unable to stand on his feet since feels weak. OBJECTIVE: Vital Signs Temperature 98.2 F 01/06/17 06:00 Pulse Rate 73 01/06/17 06:00 Respiratory Rate 18 01/06/17 06:00 Blood Pressure 149/57 01/06/17 06:00 O2 Sat by Pulse Oximetry (%) 94 L 01/05/17 22:00 ENERAL: The patient is awake, alert, in no acute distress. HEAD: Normal with no signs of trauma. EYES: fixed defect in right pupil. left pupil wnl, sclera clear, anicteric, eomi. ENT: oropharynx clear , no exudates/erythema, dentures in place. moist mucous membranes. NECK: Trachea midline, full range of motion, supple. LUNGS: Breath sounds with scattered rhonchi, no wheezing, no crackles. HEART: RRR, S1, S2 positive, SEM2/6 , positive for diastolic murmur 3/6 left 3rd intercoastal space,no rub or gallop. ABDOMEN: Soft, nontender, nondistended, normoactive bowel sounds, no hepatosplenomegaly, no masses. EXTREMITIES: 2+ pulses, warm, well-perfused, palpable thrill on right upper arm. NEUROLOGICAL: Cranial nerves II through XII grossly intact. Normal speech, gait not observed. PSYCH: Normal mood, normal affect. : Monahan removed, patient is voiding CBCD WBC 8.5 K/mm3 (4.0-10.0) 01/06/17 05:35 RBC 4.06 M/mm3 (4.00-5.60) 01/06/17 05:35 Hgb 12.0 GM/dL (11.7-16.9) D 01/06/17 05:35 Hct 36.0 % (35.4-49) 01/06/17 05:35 MCV 88.5 fl (80-96) 01/06/17 05:35 MCHC 33.3 g/dl (32.0-35.9) 01/06/17 05:35 RDW 14.5 % (11.9-15.9) 01/06/17 05:35 Plt Count 166 K/MM3 (134-434) 01/06/17 05:35 MPV 8.9 fl (7.5-11.1) 01/06/17 05:35 CMP Sodium 137 mmol/L (136-145) 01/06/17 05:35 Potassium 4.4 mmol/L (3.5-5.1) 01/06/17 05:35 Chloride 101 mmol/L (98-107) 01/06/17 05:35 Carbon Dioxide 27 mmol/L (21-32) 01/06/17 05:35 Anion Gap 9 (8-16) 01/06/17 05:35 BUN 15 mg/dL (7-18) D 01/06/17 05:35 Creatinine 1.1 mg/dL (0.7-1.3) 01/06/17 05:35 Creat Clearance w eGFR 53.96 (>60) 01/05/17 06:10 Random Glucose 149 mg/dL (74-106) H D 01/06/17 05:35 Calcium 8.6 mg/dL (8.5-10.1) 01/06/17 05:35 Total Bilirubin 0.4 mg/dL (0.2-1.0) D 01/05/17 06:10 AST 13 U/L (15-37) L D 01/05/17 06:10 ALT 13 U/L (12-78) 01/05/17 06:10 Alkaline Phosphatase 53 U/L (45-117) 01/05/17 06:10 Total Protein 4.9 g/dl (6.4-8.2) L 01/05/17 06:10 Albumin 2.5 g/dl (3.4-5.0) L 01/05/17 06:10 CARDIAC ENZYMES Creatine Kinase 394 IU/L (39-308) H D 01/01/17 17:12 Troponin I 0.03 ng/ml (0.00-0.05) 01/02/17 05:20 Current Medications Generic Name Dose Route Start Last Admin Trade Name Freq PRN Reason Stop Dose Admin Amlodipine Besylate 10 mg 01/04/17 10:00 01/05/17 10:01 Norvasc - PO 10 mg DAILY [facility] Administration Aspirin 81 mg 01/02/17 22:00 01/05/17 22:16 Asa - PO 81 mg HS [facility] Administration Atorvastatin Calcium 10 mg 01/02/17 22:00 01/05/17 22:16 Lipitor - PO 10 mg HS [facility] Administration Carvedilol 25 mg 01/04/17 10:00 01/05/17 22:16 Coreg - PO 25 mg BID [facility] Administration Clopidogrel Bisulfate 75 mg 01/03/17 10:00 01/05/17 10:01 Plavix - PO 75 mg DAILY [facility] Administration Docusate Sodium 100 mg 01/02/17 14:05 Colace - PO BID PRN CONSTIPATION Duloxetine HCl 20 mg 01/03/17 22:00 01/05/17 22:16 Cymbalta - PO 20 mg BID [facility] Administration Insulin Aspart 1 vial 01/02/17 16:30 01/06/17 06:06 Novolog Vial Sliding Scale - SQ Not Given ACHS [facility] Protocol Insulin Detemir 15 units 01/05/17 07:00 01/06/17 06:06 Levemir Vial SQ 15 units AM [facility] Administration Lactobacillus Acidophilus 1 tab 01/03/17 10:00 01/05/17 10:00 Bacid - PO 1 tab DAILY [facility] Administration Mycophenolate Sodium 360 mg 01/02/17 22:00 01/05/17 22:17 Mycophenolic Acid PO 360 mg BID [facility] Administration Piperacillin Sod/Tazobactam Sod 3.375 gm 01/02/17 11:00 01/06/17 01:33 Zosyn 3.375gm Ivpb (Pre-Docked) IVPB 3.375 gm Q8H-IV [facility] Administration Protocol Prednisone 5 mg 01/03/17 10:00 01/05/17 10:01 Deltasone - PO 5 mg DAILY [facility] Administration Tacrolimus 1 mg 01/02/17 22:00 01/05/17 22:18 Prograf (Non-Formulary) PO 1 mg BID [facility] Administration Tamsulosin HCl 0.4 mg 01/02/17 22:00 01/05/17 22:16 Flomax - PO 0.4 mg HS [facility] Administration Home Medications Medication Instructions Recorded Aspirin [ASA -] 81 mg PO HS 10/31/12 Tamsulosin HCl 0.4 mg PO HS 10/31/12 Atorvastatin Calcium [Lipitor] 10 mg PO HS 06/18/13 Tacrolimus [Prograf] 1 mg PO BID 04/08/16 Clopidogrel Bisulfate [Plavix -] 75 mg PO DAILY #30 tablet 04/13/16 Amlodipine Besylate 10 mg PO DAILY 04/28/16 Acetaminophen [Tylenol .Regular 650 mg PO Q6H PRN #0 tablet 05/03/16 Strength -] Carvedilol [Coreg -] 25 mg PO BID tablet 05/03/16 Docusate Sodium [Colace -] 100 mg PO BID PRN #0 capsule 05/03/16 Oxycodone HCl [Roxicodone -] 5 mg PO Q6H PRN #0 tablet MDD 4 05/03/16 Collagenase Clostridium Hist. 1 applic TP DAILY #30 applic 08/11/16 [Santyl -] Insulin (Levemir) [Levemir Vial] 25 units SQ AM ml 09/28/16 Insulin Sliding Scale [Novolog 1 vial SQ ACHS units 09/28/16 Vial Sliding Scale -] Mycophenolate Sodium [Myfortic -] 360 mg PO BID tablet. 09/28/16 Prednisone [Deltasone -] 5 mg PO DAILY tablet 10/01/16 Lactobacillus Acidophilus [Bacid -] 1 each PO DAILY #10 tab 11/01/16 Hydralazine HCl [Apresoline -] 25 mg BID 01/04/17 Insulin Glargine,Hum.rec.anlog 15 units SQ DAILY 01/05/17 [Lantus (nf)] ASSESSMENT AND PLAN: Patient is a 76 year old man s/p renal transplant 2012 was admitted on 01/01 with hyperglycemia and dizziness, 01/02 was found unresponsive and was intubated after intubation he developed fevers, therefore patient is receiving Antibiotics for aspiration Pneumonia. # Possible Acute aspiration Pneumonia , completed 5 days of IV Zosyn. Nofurther antibiotic need s/p Acute respiratory Failure s/p extubation ID Dr.Dr. Ziegler appreciated. # Acute change of MS: S/P EEG, discussed with Neurologist where he stated that patient is sun downing since EEG reports encephalopathy no seizure activity. s/p of 2 episodes of unresponsiveness followed by gain of consciousness .Patient is back to his base line .Cannot do MRI of brain since don't know what kind of stents does the patient have. # LLE DVT : on heparin gtt. 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 Cr at base line cont gentle hydration. continue Immunosuppressive therapy ; cont tacrulimus, prednsione and mycophenolate follow tacrulimus level # T2DM cont SSI; Resume levemir at 15 units in am as now awake and eating # HTN:controlled continue meds. cont norvasc , and coreg with holding parameters. d/c hydralazin for now #CAD : s/p CABG . cont coreg, ASA, Plavix. getting transferred to a rehab.Henry
--- NOTE | 2017-01-06 09:39 | PN ---
Progress Note (short form) - Note Progress Note: Neurology Follow up 76 year old male with PMH HTN, [place] s/p CABG, DM, ESRD s/p Kidney transplant, HPLD admitted to hospital s/p fall r/o syncope was found unresponsive with normal vitals, anicorsia with a Negative head CT was intubated/extubated. Patient is awake, alert oriented to place and person, but not to time. Does not recall the events that brought him to the hospital and follows simple directions. No focal deficits. Downgraded to floor status. Completed EEG which has been read by Dr. Garcia with slowing but no epileptiform activity. Does not appear to have seizures, seems be sundowning events at night time, would not add antiepileptics at this time. No significant neurologic changes. Active Medications Amlodipine Besylate (Norvasc -) 10 mg PO DAILY REPLACED BY [facility] Last Admin: 01/05/17 10:01 Dose: 10 mg Aspirin (Asa -) 81 mg PO HS REPLACED BY [facility] Last Admin: 01/05/17 22:16 Dose: 81 mg Atorvastatin Calcium (Lipitor -) 10 mg PO HS REPLACED BY [facility] Last Admin: 01/05/17 22:16 Dose: 10 mg Carvedilol (Coreg -) 25 mg PO BID REPLACED BY [facility] Last Admin: 01/05/17 22:16 Dose: 25 mg Clopidogrel Bisulfate (Plavix -) 75 mg PO DAILY REPLACED BY [facility] Last Admin: 01/05/17 10:01 Dose: 75 mg Docusate Sodium (Colace -) 100 mg PO BID PRN PRN Reason: CONSTIPATION Duloxetine HCl (Cymbalta -) 20 mg PO BID REPLACED BY [facility] Last Admin: 01/05/17 22:16 Dose: 20 mg Insulin Aspart (Novolog Vial Sliding Scale -) 1 vial SQ [facility] REPLACED BY [facility] PRN Reason: Protocol Last Admin: 01/06/17 06:06 Dose: Not Given Insulin Detemir (Levemir Vial) 15 units SQ AM REPLACED BY [facility] Last Admin: 01/06/17 06:06 Dose: 15 units Lactobacillus Acidophilus (Bacid -) 1 tab PO DAILY REPLACED BY [facility] Last Admin: 01/05/17 10:00 Dose: 1 tab Mycophenolate Sodium (Mycophenolic Acid) 360 mg PO BID REPLACED BY [facility] Last Admin: 01/05/17 22:17 Dose: 360 mg Piperacillin Sod/Tazobactam Sod (Zosyn 3.375gm Ivpb (Pre-Docked)) 3.375 gm IVPB Q8H-IV [facility] PRN Reason: Protocol Last Admin: 01/06/17 01:33 Dose: 3.375 gm Prednisone (Deltasone -) 5 mg PO DAILY REPLACED BY [facility] Last Admin: 01/05/17 10:01 Dose: 5 mg Tacrolimus (Prograf (Non-Formulary)) 1 mg PO BID [facility] Last Admin: 01/05/17 22:18 Dose: 1 mg Tamsulosin HCl (Flomax -) 0.4 mg PO HS REPLACED BY [facility] Last Admin: 01/05/17 22:16 Dose: 0.4 mg Vital Signs Period Temp Pulse Resp BP Sys/Mendoza Pulse Ox Last 24 Hr 98.0 F-98.4 F 70-80 16-18 111-149/30-57 92-100 GENERAL:~ Well-appearing, well-nourished. No apparent distress. HEENT:~ Normocephalic, atraumatic. Right pupil 2mn, non reactive with hazy cornea, left pupil 3mn reactive. EOM intact. CARDIOVASCULAR:~ Normal S1, S2. Regular rate and rhythm. PULMONARY:~ Clear to auscultation bilaterally. ABDOMEN:~ Soft, non-distended, non-tender.~ EXTREMITIES:~ Normal ROM in all four extremities. No gross deformities. SKIN:~ Warm, dry.~ No rash NEUROLOGICAL:~ No focal neurological deficits. Alert, awake, appropriate. Cranial nerves 2-12 intact. No deficits to light touch and temperature in face, upper extremities and lower extremities. No motor deficits in the in face, upper extremities and lower extremities. Normoreflexic in the upper and lower extremities. CBCD WBC 8.5 K/mm3 (4.0-10.0) 01/06/17 05:35 RBC 4.06 M/mm3 (4.00-5.60) 01/06/17 05:35 Hgb 12.0 GM/dL (11.7-16.9) D 01/06/17 05:35 Hct 36.0 % (35.4-49) 01/06/17 05:35 MCV 88.5 fl (80-96) 01/06/17 05:35 MCHC 33.3 g/dl (32.0-35.9) 01/06/17 05:35 RDW 14.5 % (11.9-15.9) 01/06/17 05:35 Plt Count 166 K/MM3 (134-434) 01/06/17 05:35 MPV 8.9 fl (7.5-11.1) 01/06/17 05:35 CMP Sodium 137 mmol/L (136-145) 01/06/17 05:35 Potassium 4.4 mmol/L (3.5-5.1) 01/06/17 05:35 Chloride 101 mmol/L (98-107) 01/06/17 05:35 Carbon Dioxide 27 mmol/L (21-32) 01/06/17 05:35 Anion Gap 9 (8-16) 01/06/17 05:35 BUN 15 mg/dL (7-18) D 01/06/17 05:35 Creatinine 1.1 mg/dL (0.7-1.3) 01/06/17 05:35 Creat Clearance w eGFR 53.96 (>60) 01/05/17 06:10 Calcium 8.6 mg/dL (8.5-10.1) 01/06/17 05:35 Total Bilirubin 0.4 mg/dL (0.2-1.0) D 01/05/17 06:10 AST 13 U/L (15-37) L D 01/05/17 06:10 ALT 13 U/L (12-78) 01/05/17 06:10 Alkaline Phosphatase 53 U/L (45-117) 01/05/17 06:10 Total Protein 4.9 g/dl (6.4-8.2) L 01/05/17 06:10 Albumin 2.5 g/dl (3.4-5.0) L 01/05/17 06:[address] head 01/01/17: No acute infarct is seen within the limitations of CT. Small chronic left posterior frontal cortical infarct. Small chronic left thalamic infarct. Small left frontal subcortical infarct. Moderate periventricular and subcortical microvascular ischemic gliosis. Prominent atherosclerotic vascular calcifications. Mild to moderate generalized cerebral atrophy with corresponding ventricular dilatation. No extra-axial fluid collection. There is no obvious mass lesion. CT head [place] 01/02/17 : No definite interval change is identified in comparison to a prior study performed 3 hours earlier on 01/01/2017 (aside from incidental note of interval insertion of a nasogastric tube). US carotid 01/02/17: Moderate size plaques in the proximal common carotid artery. There are also moderate-sized plaques at the common carotid bifurcation , bulb and proximal internal carotid artery without evidence of hemodynamically significant stenosis. Note is made of high peak systolic velocity in the right vertebral artery of 103 cm/s. Correlation with MRA or CTA of the neck is needed for further evaluation of left side of the neck US lower extremities 01/02/16: Left popliteal DVT CT head w/o contrast 01/03/2017: Focal old infarcts in the left thalamus and basal ganglia. No gross acute infarct is identified. Correlate clinically to determine further evaluation and follow-up. Plan: 76 year old male with PMH HTN, [place] s/p CABG, DM, ESRD s/p Kidney transplant, HPLD admitted to hospital s/p fall r/o syncope was found unresponsive with normal vitals, anicorsia with a Negative head CT was intubated/extubated. Patient is awake, alert oriented to place and person, but not to time. Does not recall the events that brought him to the hospital and follows simple directions. No focal deficits. Remains in ICU in critical condition and being monitored closely. Loss of consciousness possibly Posterior CVA/brainstem Ischemia, seizure, infectious causes, metabolic causes, medication effect. CT head negative X3 with chronic changes US carotid showed moderate plaque in common carotid but no significant stenosis MRI brain without contrast pending EEG with slowing but no epileptiform activity Likely sundowning events occuring Monitor for electrolytes abnormalities, optimize Blood sugar Optimize Blood LDL with Goal of 70 or lower Blood Pressure goal 120's-140's Continue anti-HTN medications, Coreg, hydralazine On ASA 81, Plavix 75mg Pt is on anticoagulation with heparin drip for DVT. Watch out for bleeding especially with combination with antiplatelet.
[2017-01-06] MEDS: LACTOBACILLUS ACIDOPHILUS 1 EACH TAB (FP) PO SCH (09:40)
[2017-01-06] MEDS: predniSONE 5 MG TABLET (UD) PO SCH (09:40)
[2017-01-06] MEDS: amLODIPine BESYLATE 10 MG TABLET (FP) PO SCH (09:40)
[2017-01-06] MEDS: DULoxetine HCL 20 MG CAPSULE.DR (FP) PO SCH (09:40)
[2017-01-06] MEDS: CARVEDILOL 25 MG TABLET (FP) PO SCH (09:40)
[2017-01-06] MEDS: CLOPIDOGREL BISULFATE 75 MG TABLET (FP) PO SCH (09:40)
[2017-01-06] MEDS: MYCOPHENOLATE SODIUM 360 MG TABLET.DR PO SCH (09:41)
[2017-01-06] MEDS: TACROLIMUS ANHYDROUS 1 MG CAPSULE (NF) PO SCH (09:41)
[2017-01-06] MEDS ORDERED: PATIENT'S OWN MEDICATION (NON-FORMULARY) (Insulin Glargine,Hum.Rec.Anlog 15 UNITS) SQ SCH (10:00)
--- NOTE | 2017-01-06 10:56 | PN ---
Progress Note, DIRECTOR CLINICAL INFORMATION SERVICES - Note Progress Note: Selected Entries 01/05/17 01/05/17 01/05/17 01:55 06:00 10:00 Breakfast Lunch Supper Temperature 97.4 F L 97.6 F 98.2 F 01/05/17 01/05/17 01/05/17 11:11 14:32 18:00 Breakfast 100% Lunch 100% Supper 100% Temperature 98.0 F 98.1 F 01/05/17 01/06/17 01/06/17 21:00 02:00 06:00 Breakfast Lunch Supper Temperature 98.4 F 98.2 F 98.2 F Laboratory Tests 01/06/17 05:35 WBC 8.5 Tolerating diet. MBS reviewed. For NH placement for rehab.
--- NOTE | 2017-01-06 12:16 | PN ---
Physical Exam: SUBJECTIVE: Patient seen and examined. no complaints, feels well. denies chest pain, SOB, abdominal pain, palpitations. OBJECTIVE: Vital Signs Period Temp Pulse Resp BP Sys/Mendoza Pulse Ox Last 24 Hr 98.0 F-98.4 F 70-80 16-18 111-149/41-66 92-100 GENERAL: The patient is awake, alert, and oriented to person, place and time. in no acute distress. NECK: Trachea midline, full range of motion, supple. LUNGS: Breath sounds equal, clear to auscultation bilaterally, no wheezes, no crackles, no accessory muscle use. HEART: Regular rate and rhythm, S1, S2 soft systolic murmur in right upperchest , soft systolic murmur in left 3rd intercostal space ABDOMEN: Soft, nontender, nondistended, normoactive bowel sounds, no guarding EXTREMITIES: 2+ pulses, warm, well-perfused, no edema. fistula in right upper arm NEUROLOGICAL: Normal speech Laboratory Results - last 24 hr 01/05/17 01/05/17 01/05/17 12:54 17:58 22:12 WBC RBC Hgb Hct MCV MCHC RDW Plt Count MPV Neutrophils % Lymphocytes % Monocytes % Eosinophils % Basophils % PTT (Actin FS) Sodium Potassium Chloride Carbon Dioxide Anion Gap BUN Creatinine POC Glucometer 390 521 394 Random Glucose Calcium 01/06/17 01/06/17 01/06/17 05:35 05:35 05:35 WBC 8.5 RBC 4.06 Hgb 12.0 D Hct 36.0 MCV 88.5 MCHC 33.3 RDW 14.5 Plt Count 166 MPV 8.9 Neutrophils % 65.9 Lymphocytes % 21.5 D Monocytes % 8.2 Eosinophils % 3.5 D Basophils % 0.9 PTT (Actin FS) 29.4 D Sodium 137 Potassium 4.4 Chloride 101 Carbon Dioxide 27 Anion Gap 9 BUN 15 D Creatinine 1.1 POC Glucometer Random Glucose 149 H D Calcium 8.6 01/06/17 05:35 WBC RBC Hgb Hct MCV MCHC RDW Plt Count MPV Neutrophils % Lymphocytes % Monocytes % Eosinophils % Basophils % PTT (Actin FS) Sodium Potassium Chloride Carbon Dioxide Anion Gap BUN Creatinine POC Glucometer 130 Random Glucose Calcium Active Medications Generic Name Dose Route Start Last Admin Trade Name Freq PRN Reason Stop Dose Admin Amlodipine Besylate 10 mg 01/04/17 10:00 01/06/17 09:40 Norvasc - PO 10 mg DAILY [facility] Administration Aspirin 81 mg 01/02/17 22:00 01/05/17 22:16 Asa - PO 81 mg HS [facility] Administration Atorvastatin Calcium 10 mg 01/02/17 22:00 01/05/17 22:16 Lipitor - PO 10 mg HS [facility] Administration Carvedilol 25 mg 01/04/17 10:00 01/06/17 09:40 Coreg - PO 25 mg BID [facility] Administration Clopidogrel Bisulfate 75 mg 01/03/17 10:00 01/06/17 09:40 Plavix - PO 75 mg DAILY [facility] Administration Docusate Sodium 100 mg 01/02/17 14:05 Colace - PO BID PRN CONSTIPATION Duloxetine HCl 20 mg 01/03/17 22:00 01/06/17 09:40 Cymbalta - PO 20 mg BID [facility] Administration Insulin Aspart 1 vial 01/02/17 16:30 01/06/17 06:06 Novolog Vial Sliding Scale - SQ Not Given [facility] Protocol Insulin Detemir 15 units 01/05/17 07:00 01/06/17 06:06 Levemir Vial SQ 15 units AM [facility] Administration Lactobacillus Acidophilus 1 tab 01/03/17 10:00 01/06/17 09:40 Bacid - PO 1 tab DAILY [facility] Administration Metformin HCl 500 mg 01/06/17 16:30 Glucophage - PO BID@0700,1630 [facility] Mycophenolate Sodium 360 mg 01/02/17 22:00 01/06/17 09:41 Mycophenolic Acid PO 360 mg BID [facility] Administration Piperacillin Sod/Tazobactam Sod 3.375 gm 01/02/17 11:00 01/06/17 09:39 Zosyn 3.375gm Ivpb (Pre-Docked) IVPB 3.375 gm Q8H-IV [facility] Administration Protocol Prednisone 5 mg 01/03/17 10:00 01/06/17 09:40 Deltasone - PO 5 mg DAILY [facility] Administration Tacrolimus 1 mg 01/02/17 22:00 01/06/17 09:41 Prograf (Non-Formulary) PO 1 mg BID [facility] Administration Tamsulosin HCl 0.4 mg 01/02/17 22:00 01/05/17 22:16 Flomax - PO 0.4 mg HS [facility] Administration ASSESSMENT/PLAN: 76 yr old man with multiple co-morbidities BIBEMS when he was found down in his apartment assumed fall found to be be hyperglycemic with elevated white count and requiring intubation in ED due to unresponsivess. - MBS: pt would benefit from swallowin therapy. #Altered mental status with anisocoria s/p extubation- - mental status has returned to baseline with patient responding appropriately and oriented x3 - head ct x3 with chronic changes, no acute infarct or hemorrhage noted - will d/c MRI as stent information has been unobtainable. - plavix 75mg daily - tacrolimus level 6, therapeutic dose 5-20, unlikely that tacrolimus toxicity is causing AMS #Fever with leucocytosis - improved - broad sprectrum abx given immunocompromised status secondary to renal transplant immunosuppressive medications, zosyn 3.375 q8 ( Day 5 ) - ucx and bld cx, legionella, flu swab negative for growth #DVT - IVC filter placed #CHUCK (baseline 0.9 09/2016) (s/p renal transplant) - improved - tacrolimus, prednisone, mycophenolate - continue medications for immunosuppression, monitior BMP for acute rise - if Cr rises will consult Dr. Perez #DM - uncontrolled - ISS - levemir - lantus added in the AM #HTN - hyralazine 25mg po bid - Norvasc 10mg po daily - coreg 25mg po bid #CAD s/p stents - coreg - ASA - plavix #DVT - IVD filter #Diet - diabetic diet - dysphagia diet nectar consistency Visit type - Emergency Visit Emergency Visit: No - New Patient This patient is new to me today: No - Critical Care Critical Care patient: No - Discharge Referral Referred to [facility] No
[2017-01-06] MEDS ORDERED: INSULIN (NOVOLOG) ASPART 100 UNITS/ML 10ML VIAL ONE (12:43)
--- NOTE | 2017-01-06 13:07 | PN ---
Progress Note (short form) - Note Progress Note: NAD on 2 L NC. No acute events overnight. No CP. SOB is better. CXR: Resolving vascular congestion Intake & Output 01/03/17 01/04/17 01/05/17 01/06/17 23:59 23:59 23:59 23:59 Intake Total 540 1534 2291 1200 Output Total 750 900 400 Balance -162 387 4422 1200 Weight 154 lb 14.4 oz 156 lb 8.451 oz Last Vital Signs Temp Pulse Resp BP Pulse Ox 98.4 F 73 18 148/66 94 L 01/06/17 10:00 01/06/17 10:00 01/06/17 10:00 01/06/17 10:00 01/06/17 10:00 Active Medications Amlodipine Besylate (Norvasc -) 10 mg PO DAILY [facility] Last Admin: 01/06/17 09:40 Dose: 10 mg Aspirin (Asa -) 81 mg PO HS [facility] Last Admin: 01/05/17 22:16 Dose: 81 mg Atorvastatin Calcium (Lipitor -) 10 mg PO HS [facility] Last Admin: 01/05/17 22:16 Dose: 10 mg Carvedilol (Coreg -) 25 mg PO BID [facility] Last Admin: 01/06/17 09:40 Dose: 25 mg Clopidogrel Bisulfate (Plavix -) 75 mg PO DAILY [facility] Last Admin: 01/06/17 09:40 Dose: 75 mg Docusate Sodium (Colace -) 100 mg PO BID PRN PRN Reason: CONSTIPATION Duloxetine HCl (Cymbalta -) 20 mg PO BID [facility] Last Admin: 01/06/17 09:40 Dose: 20 mg Insulin Aspart (Novolog Vial Sliding Scale -) 1 vial SQ ACHS [facility] PRN Reason: Protocol Last Admin: 01/06/17 12:45 Dose: 10 units Insulin Detemir (Levemir Vial) 15 units SQ AM [facility] Last Admin: 01/06/17 06:06 Dose: 15 units Lactobacillus Acidophilus (Bacid -) 1 tab PO DAILY [facility] Last Admin: 01/06/17 09:40 Dose: 1 tab Metformin HCl (Glucophage -) 500 mg PO BID@0700,1630 [facility] Mycophenolate Sodium (Mycophenolic Acid) 360 mg PO BID [facility] Last Admin: 01/06/17 09:41 Dose: 360 mg Piperacillin Sod/Tazobactam Sod (Zosyn 3.375gm Ivpb (Pre-Docked)) 3.375 gm IVPB Q8H-IV [facility] PRN Reason: Protocol Last Admin: 01/06/17 09:39 Dose: 3.375 gm Prednisone (Deltasone -) 5 mg PO DAILY [facility] Last Admin: 01/06/17 09:40 Dose: 5 mg Tacrolimus (Prograf (Non-Formulary)) 1 mg PO BID [facility] Last Admin: 01/06/17 09:41 Dose: 1 mg Tamsulosin HCl (Flomax -) 0.4 mg PO HS [facility] Last Admin: 01/05/17 22:16 Dose: 0.4 mg Gen: Awake, NAD Heart: RRR Lung: Few scattered rhonchi Abd: soft, nontender Ext: no edema Laboratory Results - last 24 hr 01/05/17 01/05/17 01/05/17 12:54 17:58 22:12 WBC RBC Hgb Hct MCV MCHC RDW Plt Count MPV Neutrophils % Lymphocytes % Monocytes % Eosinophils % Basophils % PTT (Actin FS) Sodium Potassium Chloride Carbon Dioxide Anion Gap BUN Creatinine POC Glucometer 390 521 394 Random Glucose Calcium 01/06/17 01/06/17 01/06/17 05:35 05:35 05:35 WBC 8.5 RBC 4.06 Hgb 12.0 D Hct 36.0 MCV 88.5 MCHC 33.3 RDW 14.5 Plt Count 166 MPV 8.9 Neutrophils % 65.9 Lymphocytes % 21.5 D Monocytes % 8.2 Eosinophils % 3.5 D Basophils % 0.9 PTT (Actin FS) 29.4 D Sodium 137 Potassium 4.4 Chloride 101 Carbon Dioxide 27 Anion Gap 9 BUN 15 D Creatinine 1.1 POC Glucometer Random Glucose 149 H D Calcium 8.6 01/06/17 01/06/17 05:35 12:30 WBC RBC Hgb Hct MCV MCHC RDW Plt Count MPV Neutrophils % Lymphocytes % Monocytes % Eosinophils % Basophils % PTT (Actin FS) Sodium Potassium Chloride Carbon Dioxide Anion Gap BUN Creatinine POC Glucometer 130 370 Random Glucose Calcium ASSESSMENT AND PLAN: Altered Mental Status s/p Acute Respiratory Failure ESRD s/p renal transplant on immunosuppressives CAD s/p CABG LV Diastolic Dysfunction DVT HTN DM Hyperlipidemia Suspected CVA/TIA R/O seizures - ABX - AC for DVT - may need IVC filter if cannot be fully anticoagulated - aspiration precautions - Plavix - Monitor for bleeding Dr Melgar
[2017-01-06 15:50] VITALS: BP 146/51; PULSE 77; TEMP 97.4
[2017-01-06] MEDS ORDERED: metFORMIN HCL 500 MG TABLET (FP) PO SCH (16:30)
--- NOTE | 2017-01-06 17:56 | DS ---
Physical Exam: SUBJECTIVE: Patient seen and examined. Patient's mentation has improved to baseline and he is stable for rehab and outpatient follow-up. OBJECTIVE: Vital Signs Period Temp Pulse Resp BP Sys/Mendoza Pulse Ox Last 24 Hr 97.4 F-98.4 F 73-80 16-18 111-149/46-66 92-94 PHYSICAL EXAM GENERAL: The patient is awake, alert, and oriented to person, place and time. in no acute distress. NECK: Trachea midline, full range of motion, supple. LUNGS: Breath sounds equal, clear to auscultation bilaterally, no wheezes, no crackles, no accessory muscle use. HEART: Regular rate and rhythm, S1, S2 soft systolic murmur in right upperchest , soft systolic murmur in left 3rd intercostal space ABDOMEN: Soft, nontender, nondistended, normoactive bowel sounds, no guarding EXTREMITIES: 2+ pulses, warm, well-perfused, no edema. fistula in right upper arm NEUROLOGICAL: Normal speech LABS Laboratory Results - last 24 hr 01/06/17 01/06/17 01/06/17 05:35 05:35 05:35 WBC 8.5 RBC 4.06 Hgb 12.0 D Hct 36.0 MCV 88.5 MCHC 33.3 RDW 14.5 Plt Count 166 MPV 8.9 Neutrophils % 65.9 Lymphocytes % 21.5 D Monocytes % 8.2 Eosinophils % 3.5 D Basophils % 0.9 PTT (Actin FS) Sodium 137 Potassium 4.4 Chloride 101 Carbon Dioxide 27 Anion Gap 9 BUN 15 D Creatinine 1.1 POC Glucometer 130 Random Glucose 149 H D Calcium 8.6 01/06/17 12:30 WBC RBC Hgb Hct MCV MCHC RDW Plt Count MPV Neutrophils % Lymphocytes % Monocytes % Eosinophils % Basophils % PTT (Actin FS) Sodium Potassium Chloride Carbon Dioxide Anion Gap BUN Creatinine POC Glucometer 370 Random Glucose Calcium HOSPITAL COURSE: Date of Admission:01/01/17 - Date of Discharge: 01/06/17 76 yr old man with multiple co-morbidities BIBEMS when he was found down in his apartment by [employer] attendent, found to be be hyperglycemic with elevated white count in the ED. He required intubation due to unresponsivess on the first night of admission and transferred to ICU. He was extubated the next day. On the 01/01, 01/02 and 01/03 he underwent acute changes in his mental status and head CT without contrast showed no acute infarct or hemorrhage. His tacrolimus level was within normal limits, which would have been unlikely to cause his AMS. EEG with slowing mentation, discussed with Dr. Yoder no indication for Keppra, agrees with outpatient follow-up for further evaluation of cognitive decline, symptoms likely from owning as AMS seems to occur more at night. He developed a fever after extubation and was treated with zosyn 3.375 q8hr IVPB for 5 days for possible aspiration pneumonia. Urine culture, blood culture ans flu swab were negative. MRI could not be competed to rule out brain stem ischemia because information regarding cardiac stents placed 15 years at [facility] was unobtainable as [facility] only keeps information for 10 yrs. He was also found to have a DVT in the left popliteal vein and initially placed on a heparin drip until IVC filter could be placed. Which was placed on 01/05. On modified barium swallow evaluation he was found to have impaired sensation and be at risk for choking. The following recommendations are made for eating: - continue dysphagia diet, alternate puree with liquid and complete each meal with liquid. Patient can benefit from swallowing therapy upon discharge either at short-term facility or at discharge. Minutes to complete discharge: 40 Discharge Summary Reason For Visit: CHRONIC RENAL FAILURE LEUKOCYTOSIS (ESBL) Current Active Problems Acute renal injury (Acute) Hyperglycemia (Acute) Leukocytosis (Acute) Condition: Improved - Instructions Diet, Activity, Other Instructions: Resume all of your medications: Norvasc 10mg daily Lipitor 10mg daily Aspirin 81mg at night Carvedilol 25mg 1 tablet twice daily Colace 100mg daily Cymbalta 20mg 1 tablet twice daily Lasix 20mg daily Hydralazine 25mg 1 tablet twice daily Lantus 15units every morning Lispro 10units before breakfast Lispro 8 units before Lunch Lispro 6 units before Dinner Metformin 500mg 1 tablet twice daily Mofetil 360mg 1 tablet twice daily Prednisone 5mg daily Tacrolimus 1mg 1 tablet twice daily Flomax 0.4mg at night You are being transferred to [facility] for further rehabilitation to improve your walking and therapy for your swallowing. Follow-up with your primary care doctor, Dr. Abel and your sports announcer Dr. Perez one week after being discharged from [facility]. Follow-up with for further evaluation regarding your memory once discharged from [facility]. Referrals: Panfilo Yoder MD [Staff Physician] - Mino Abel MD [Staff Physician] - Tiesha Perez MD [Staff Physician] - Disposition: LONG-TERM FACILITY - Home Medications Comprehensive Discharge Medication List: Ambulatory Orders Aspirin [ASA -] 81 mg PO HS 10/31/12 Tamsulosin HCl 0.4 mg PO HS 10/31/12 Atorvastatin Calcium [Lipitor] 10 mg PO HS 06/18/13 Tacrolimus [Prograf] 1 mg PO BID 04/08/16 Clopidogrel Bisulfate [Plavix -] 75 mg PO DAILY #30 tablet 04/13/16 Amlodipine Besylate 10 mg PO DAILY 04/28/16 Carvedilol [Coreg -] 25 mg PO BID tablet 05/03/16 Docusate Sodium [Colace -] 100 mg PO BID PRN #0 capsule 05/03/16 Insulin (Levemir) [Levemir Vial] 25 units SQ AM ml 09/28/16 Mycophenolate Sodium [Myfortic -] 360 mg PO BID tablet. 09/28/16 Prednisone [Deltasone -] 5 mg PO DAILY tablet 10/01/16 Lactobacillus Acidophilus [Bacid -] 1 each PO DAILY #10 tab 11/01/16 Hydralazine HCl [Apresoline -] 25 mg BID 01/04/17 Insulin Glargine,Hum.rec.anlog [Lantus (10mL VIAL) -] 15 units SQ DAILY Duloxetine HCl [Cymbalta -] 20 mg PO BID capsule. 01/06/17 Metformin HCl [Glucophage -] 500 mg PO BID@0700,1630 tablet 01/06/17 This patient is new to me today: No Emergency Visit: No Critical Care patient: No - Discharge Referral Referred to [facility] No
== END 2017-01-06 16:50 | DRG 166 ==
LOC: JER 15:20 → JERBED 19:20 → OBSVTOIN 20:38 → JICU 01-02 03:45 → J4S 01-04 22:20
PROVIDERS: ADMIT Internal Medicine; ATTEND Internal Medicine
PROC: 0BH17EZ Insertion of Endotracheal Airway into Trachea, Via Natural or Artificial Opening (ICD-10-PCS; principal; 2017-01-02)
PROC: 5A1935Z Respiratory Ventilation, Less than 24 Consecutive Hours (ICD-10-PCS; 2017-01-02)
PROC: 4A00X4Z Measurement of Central Nervous Electrical Activity, External Approach (ICD-10-PCS; 2017-01-04)
PROC: 06H03DZ Insertion of Intraluminal Device into Inferior Vena Cava, Percutaneous Approach (ICD-10-PCS; 2017-01-05)
DX: J96.00 Acute respiratory failure, unspecified whether with hypoxia or hypercapnia (principal); J69.0 Pneumonitis due to inhalation of food and vomit; G93.49 Other encephalopathy; N18.6 End stage renal disease; N17.9 Acute kidney failure, unspecified; Z94.0 Kidney transplant status; I45.2 Bifascicular block; I13.11 Hypertensive heart and chronic kidney disease without heart failure, with stage 5 chronic kidney disease, or end stage renal disease; I82.432 Acute embolism and thrombosis of left popliteal vein; E11.65 Type 2 diabetes mellitus with hyperglycemia; D72.829 Elevated white blood cell count, unspecified; I25.10 Atherosclerotic heart disease of native coronary artery without angina pectoris; I73.89 Other specified peripheral vascular diseases; R50.9 Fever, unspecified; E78.5 Hyperlipidemia, unspecified; E83.42 Hypomagnesemia; R41.0 Disorientation, unspecified; H57.02 Anisocoria; I45.19 Other right bundle-branch block; E86.0 Dehydration; Z79.899 Other long term (current) drug therapy; Z95.1 Presence of aortocoronary bypass graft
CPT/HCPCS: 36415; 36600; 37191; 70450-TC; 71010-TC; 74230-TC; 80048; 80053; 80061; 80197; 81003; 81015; 82009; 82272; 82436; 82533; 82550; 82553; 82570; 82803; 82947; 83605; 83721; 83735; 83880; 84100; 84133; 84156; 84300; 84443; 84484; 85025; 85027; 85610; 85730; 87040; 87086; 87254; 87804; 87899; 92611-GN; 93005; 93010; 93880-TC; 93970-TC; 94002; 94660; 95816; 97116-GP; 97162-PG; 99285-25; C1769; C1880; C1887; G0008; G0378; J1644; Q2037

== ENCOUNTER 2017-01-11 06:55 | Inpatient (IN) | payer OTHER ==
--- NOTE | 2017-01-11 07:30 | PDOC ---
History of Present Illness - General Chief Complaint: Blood Sugar Problem Stated Complaint: BLOOD SUGAR PROBLEM Time Seen by Provider: 01/11/17 07:30 History Source: Patient Exam Limitations: No Limitations Past History - Past Medical History Allergies/Adverse Reactions: Allergies Allergy/AdvReac Type Severity Reaction Status Date / Time No Known Drug Allergies Allergy Verified 01/11/17 07:40 Home Medications: Ambulatory Orders Aspirin [ASA -] 81 mg PO HS 10/31/12 Tamsulosin HCl 0.4 mg PO HS 10/31/12 Atorvastatin Calcium [Lipitor] 10 mg PO HS 06/18/13 Tacrolimus [Prograf] 1 mg PO BID 04/08/16 Clopidogrel Bisulfate [Plavix -] 75 mg PO DAILY #30 tablet 04/13/16 Amlodipine Besylate 10 mg PO DAILY 04/28/16 Carvedilol [Coreg -] 25 mg PO BID tablet 05/03/16 Mycophenolate Sodium [Myfortic -] 360 mg PO BID tablet. 09/28/16 Hydralazine HCl [Apresoline -] 35 mg SQ DAILY 01/04/17 Insulin Glargine,Hum.rec.anlog [Lantus (10mL VIAL) -] 15 units SQ DAILY Duloxetine HCl [Cymbalta -] 20 mg PO BID capsule. 01/06/17 Docusate Sodium [Colace -] 100 mg PO BID 01/11/17 Insulin (Levemir) [Levemir Flexpen -] 20 units SQ HS 01/11/17 Lactobacillus Acidophilus [Acidophilus] 1 each PO DAILY 01/11/17 Metformin HCl [Glucophage -] 1,000 mg PO BID@0700,1630 01/11/17 Prednisone [Deltasone -] 2.5 mg PO DAILY 01/11/17 Anemia: No Asthma: No Cancer: No Cardiac Disorders: Yes CVA: No COPD: No CHF: Yes Dementia: No Diabetes: Yes (IDDM) GI Disorders: No Disorders: No HTN: Yes Hypercholesterolemia: Yes Liver Disease: No Seizures: No Thyroid Disease: No - Surgical History Abdominal Surgery: No Appendectomy: No Cardiac Surgery: Yes (open heart surgery) Cholecystectomy: No Lung Surgery: No Neurologic Surgery: No Orthopedic Surgery: No - Immunization History Immunization Up to Date: Yes - Psycho/Social/Smoking Cessation Hx Anxiety: No Suicidal Ideation: No Smoking Status: No Smoking History: Never smoked Have you smoked in the past 12 months: No Number of Cigarettes Smoked Daily: 0 Hx Alcohol Use: No Drug/Substance Use Hx: No Substance Use Type: None Hx Substance Use Treatment: No ED Treatment Course - LABORATORY CBC & Chemistry Diagram: 01/11/17 07:36 01/11/17 07:36 Medical Decision Making - Medical Decision Making Pt seen primarily by NORBERTO Piedra Pt presents to the ER for Adaira due to hypoglycemia Ancillary studies reviewed I agree with plan as outlined by Midlevel Provider *DC/Admit/Observation/Transfer Diagnosis at time of Disposition: Hypoglycemia, H/O kidney transplant, Leukocytosis
[2017-01-11 07:40] VITALS: BMI 25.8
[2017-01-11 08:03] LABS: VENOUS BLOOD GAS HCO3 27.9 meq/L (19-25); VENOUS PH 7.34 (7.32-7.42)
[2017-01-11 08:12] LABS: MCHC 32.5 g/dl (32.0-35.9); MEAN CELL VOLUME 89.2 fl (80-96); MEAN PLT VOLUME 7.6 fl (7.5-11.1); PLATELET COUNT 297 K/MM3 (134-434); WHITE BLOOD COUNT 22.5 K/mm3 (4.0-10.0)
--- NOTE | 2017-01-11 08:29 | PDOC ---
History of Present Illness - General Chief Complaint: Blood Sugar Problem Stated Complaint: BLOOD SUGAR PROBLEM Time Seen by Provider: 01/11/17 07:30 History Source: Patient, Longterm Records Exam Limitations: No Limitations - History of Present Illness Initial Comments: 01/11/17 08:04 76-year-old male sent to the emergency room from [facility] for a glucose of 40 and increased lethargy this morning when the nurses were rounding. Patient has history of diabetes, kidney transplant 4 years ago, CABG, CAD, recent left leg DVT and IVC filter placement. As per records patient had a glucose last night of 300 and was given insolent and this morning was found to have a glucose of 40. Patient arrives here with no complaints except the fact that he feels cold and weak. Patient was given dextrose in the [facility] prior to ED arrival via EMS. Timing/Duration: unsure Severity: moderate Associated Symptoms: reports: weakness (mild generalized) Past History - Past Medical History Allergies/Adverse Reactions: Allergies Allergy/AdvReac Type Severity Reaction Status Date / Time No Known Drug Allergies Allergy Verified 01/11/17 07:40 Home Medications: Ambulatory Orders Aspirin [ASA -] 81 mg PO HS 10/31/12 Tamsulosin HCl 0.4 mg PO HS 10/31/12 Atorvastatin Calcium [Lipitor] 10 mg PO HS 06/18/13 Tacrolimus [Prograf] 1 mg PO BID 04/08/16 Clopidogrel Bisulfate [Plavix -] 75 mg PO DAILY #30 tablet 04/13/16 Amlodipine Besylate 10 mg PO DAILY 04/28/16 Carvedilol [Coreg -] 25 mg PO BID tablet 05/03/16 Mycophenolate Sodium [Myfortic -] 360 mg PO BID tablet. 09/28/16 Hydralazine HCl [Apresoline -] 35 mg SQ DAILY 01/04/17 Insulin Glargine,Hum.rec.anlog [Lantus (10mL VIAL) -] 15 units SQ DAILY Duloxetine HCl [Cymbalta -] 20 mg PO BID capsule. 01/06/17 Docusate Sodium [Colace -] 100 mg PO BID 01/11/17 Insulin (Levemir) [Levemir Flexpen -] 20 units SQ HS 01/11/17 Lactobacillus Acidophilus [Acidophilus] 1 each PO DAILY 01/11/17 Metformin HCl [Glucophage -] 1,000 mg PO BID@0700,1630 01/11/17 Prednisone [Deltasone -] 2.5 mg PO DAILY 01/11/17 Anemia: No Asthma: No Cancer: No Cardiac Disorders: Yes CVA: No COPD: No CHF: Yes Dementia: No Diabetes: Yes (IDDM) GI Disorders: No Disorders: No HTN: Yes Hypercholesterolemia: Yes Liver Disease: No Seizures: No Thyroid Disease: No - Surgical History Abdominal Surgery: No Appendectomy: No Cardiac Surgery: Yes (open heart surgery) Cholecystectomy: No Lung Surgery: No Neurologic Surgery: No Orthopedic Surgery: No - Immunization History Immunization Up to Date: Yes - Psycho/Social/Smoking Cessation Hx Anxiety: No Suicidal Ideation: No Smoking Status: No Smoking History: Never smoked Have you smoked in the past 12 months: No Number of Cigarettes Smoked Daily: 0 Information on smoking cessation initiated: No Hx Alcohol Use: No Drug/Substance Use Hx: No Substance Use Type: None Hx Substance Use Treatment: No Patient Lives Alone: No [facility] with[facility]in: [facility] Review of Systems - Review of Systems Able to Perform ROS?: Yes Constitutional: Yes: Chills, Weakness HEENTM: No: Symptoms Reported Respiratory: No: Symptoms reported Cardiac (ROS): No: Symptoms Reported ABD/GI: No: Symptoms Reported : No: Symptoms Reported Musculoskeletal: No: Symptoms Reported Integumentary: No: Symptoms Reported Neurological: Yes: Weakness. No: Headache, Dizziness Endocrine: No: Symptoms Reported Hematologic/Lymphatic: No: Symptoms Reported *Physical Exam - Vital Signs Last Vital Signs Temp Pulse Resp BP Pulse Ox 93.8 F L 101 H 18 162/63 96 01/11/17 07:36 01/11/17 07:05 01/11/17 07:05 01/11/17 07:05 01/11/17 07:36 - Physical Exam General Appearance: Yes: Nourished, Appropriately Dressed. No: Apparent Distress HEENT: positive: EOMI, SEEMA (reactive 3 mm bilateral), Pharynx Normal (dry). negative: Pale Conjunctivae Neck: positive: Supple Respiratory/Chest: positive: Lungs Clear, Normal Breath Sounds. negative: Respiratory Distress, Accessory Muscle Use Cardiovascular: positive: Regular Rhythm, Regular Rate (rate 72). negative: Murmur Gastrointestinal/Abdominal: positive: Normal Bowel Sounds, Soft, Distended ( mild generalized). negative: Organomegaly, Pulsatile Mass, Rebound, Tenderness Extremity: positive: Normal Capillary Refill, Pedal Edema (1+ bilateral pitting) Integumentary: positive: Dry Neurologic: positive: Normal Mood/Affect (ao3), Motor Strength 5/5 Heart Score/ECG Review - History History: Slightly suspicious - Electrocardiogram EKG: Normal - Age Age: >/= 65 - Risk Factors Risk Factors Heart Score: Yes Hx Hypercholesterolemia, Yes Hx Diabetes, Yes Positive family hx of cardiac disease Based on the list above the patient has:: >/=3 risk factors or Hx atherosclerotic disease - Troponin Troponin: </= normal limit - Score Heart Score - Total: 4 - ECG Intrepretation Rhythm: Regular Rhythm (sinus rhythm w Right bundle branch block with a rate of 72. bifascicular block. unchanged from previous dated 01/02) ED Treatment Course - LABORATORY CBC & Chemistry Diagram: 01/12/17 05:35 01/12/17 05:35 - ADDITIONAL ORDERS Additional order review: Laboratory Results 01/11/17 01/11/17 07:50 07:19 VBG pH 7.34 POC VBG pCO2 52.7 H POC VBG pO2 39.5 Mixed VBG HCO3 27.9 H POC Glucometer [id number] 01/11/17 01/11/17 07:36 07:19 RBC 4.77 MCV 89.2 MCHC 32.5 RDW 15.0 MPV 7.6 D Neutrophils % Y Lymphocytes % Y POC Glucometer [id number] - RADIOLOGY Radiology Studies Ordered: Category Date Time Status CHEST X-RAY PORTABLE* [RAD] Stat Radiology 01/11/17 07:36 Ordered Medical Decision Making - Critical Care Time Total Critical Care Time (minutes): 35 Critical Care Statement: The care of this patient involved high complexity decision making to prevent further life threatening deterioration of the patient 's condition and/or to evalute & treat vital organ system(s) failure or risk of failure. - Medical Decision Making 01/11/17 08:31 Patient sent here for noted glucose of 40 and increased lethargy. Patient has extensive history was recently discharged from here secondary to leukocytosis and unresponsiveness requiring intubation and ICU admission. Patient also was found to have a left DVT with IVC filter placement. Patient is Currently on Prograf secondary to renal transplant 4 years ago patient arrives hypothermic at 93 Fahrenheit rectally. Sepsis workup was initiated including acetone, repeat BGM, and stacey hugger. Patient will be admitted since diagnostics are reviewed. 01/11/17 10:40 Laboratory Tests 01/11/17 01/11/17 01/11/17 07:19 07:36 07:36 WBC 22.5 H D Hgb 13.8 D Hct 42.5 D Neutrophils % 68.0 Monocytes % 8.0 INR 0.96 VBG pH POC VBG pCO2 POC VBG pO2 Sodium Potassium Chloride Carbon Dioxide Anion Gap BUN Creatinine POC Glucometer [phone] Random Glucose Lactic Acid AST ALT Creatine Kinase Troponin I Urine Glucose (UA) Urine Ketones Ur Leukocyte Esterase Acetone, Qual 01/11/17 01/11/17 01/11/17 07:36 07:36 07:36 WBC Hgb Hct Neutrophils % Monocytes % INR VBG pH POC VBG pCO2 POC VBG pO2 Sodium 138 Potassium 4.8 Chloride 99 Carbon Dioxide 29 Anion Gap 10 BUN 29 H D Creatinine 1.2 POC Glucometer Random Glucose 233 H D Lactic Acid 1.121 AST 17 D ALT 23 D Creatine Kinase 56 Troponin I < 0.02 D Urine Glucose (UA) Urine Ketones Ur Leukocyte Esterase Acetone, Qual Negative 01/11/17 01/11/17 07:50 09:10 WBC Hgb Hct Neutrophils % Monocytes % INR VBG pH 7.34 POC VBG pCO2 52.7 H POC VBG pO2 39.5 Sodium Potassium Chloride Carbon Dioxide Anion Gap BUN Creatinine POC Glucometer Random Glucose Lactic Acid AST ALT Creatine Kinase Troponin I Urine Glucose (UA) 3+ H Urine Ketones Negative Ur Leukocyte Esterase Negative Acetone, Qual Chest x-ray negative for acute findings. Patient has been on prednisone 5 mg chronically and had a white count of 8.5 upon [facility] just 5 days prior. Unknown source of elevated white count and will give patient Zosyn prophylactically until cultures are resulted. Patient presently improving with conversation and discussing his needs. Patient has a repeat rectal temperature of 97.8 blood pressure has maintained and is satting at 98% with 2 L. Case discussed with hospitalist Dr. Mccracken who accepted the case. Patient will be admitted to inpatient telemetry. *DC/Admit/Observation/Transfer Diagnosis at time of Disposition: Hypoglycemia, H/O kidney transplant Leukocytosis Qualifiers: Leukocytosis type: unspecified Qualified Code(s): D72.829 - Elevated white blood cell count, unspecified - Discharge Dispostion Admit: Yes
[2017-01-11 08:36] LABS: ALBUMIN 3.4 g/dl (3.4-5.0); ANION GAP 10 (8-16); BILIRUBIN,TOTAL 0.4 mg/dL (0.2-1.0); CALCIUM 9.3 mg/dL (8.5-10.1); CO2 29 mmol/L (21-32); CREATININE 1.2 mg/dL (0.7-1.3); GLUCOSE,RANDOM 233 mg/dL (74-106); SGPT/ALT 23 U/L (12-78); TOT PROT 6.6 g/dl (6.4-8.2)
[2017-01-11 08:40] LABS: ALK PHOS 73 U/L (45-117); TROPONIN I < 0.02 ng/ml (0.00-0.05)
[2017-01-11 08:44] LABS: SGOT/AST 17 U/L (15-37)
[2017-01-11] MEDS ORDERED: PIPERACILLIN/TAZOB 3.375 GM 3.375 GM in DEXTROSE 5%-WATER - 50 ML IVPB SCH (08:45)
[2017-01-11 09:05] LABS: INR 0.96 (0.82-1.09); PROTHROMBIN TIME (PATIENT) 10.6 SEC (9.98-11.88)
[2017-01-11 09:26] LABS: URINE APPEARANCE CLEAR; URINE BILIRUBIN NEGATIVE (NEGATIVE); URINE BLOOD NEGATIVE (NEGATIVE); URINE COLOR STRAW; URINE GLUCOSE (UA) 3+ (NEGATIVE); URINE KETONE NEGATIVE (NEGATIVE); URINE LEUK ESTERASE NEGATIVE (NEGATIVE); URINE NITRITE NEGATIVE (NEGATIVE); URINE PROTEIN NEGATIVE (NEGATIVE); URINE UROBILINOGEN NEGATIVE E.U./dl (0.2-1.0)
[2017-01-11] MEDS ORDERED: PIPERACILLIN/TAZOB 3.375 GM 50 ML IVPB ONE (09:39)
[2017-01-11] MEDS ORDERED: DEXTROSE 5%-0.45% SALINE 1,000 ML IV SCH (14:00)
--- NOTE | 2017-01-11 14:00 | HP ---
CHIEF COMPLAINT: hypoglycemia PCP: Javan Cooper HISTORY OF PRESENT ILLNESS: 76 yr old man with HTN, IDDM, hx of WI s/p stents, CABG, HLD, IVC filter, DVT in left leg BIBEMS from [facility] for hypoglycemia. History is limited from Patient due to lethargy. Chart reviewed for further history. As per progress note from [facility] summarized: At 01/10 12:34AM, resident was alert and responsive, BGM 245, 2 units of novolog and meds rendered. BP 128/81, HR 82, T97.3 At 01/11 5:30AM resident's BGM was 40, he was unresponsive and had labored breathing. MD notified, Resident received glucagon 2mg IM stat, BGM went to 50. IV dextrose 25grms x2, resident woke up 5 mins later. BGM 319. transferred to [facility] for further evaluation. ER course was notable for: (1) Jevon Hugger, Tem 93.8 (2) WBC 22.5 (3) cxy neg for infiltrate, effusion Recent Travel: none PAST MEDICAL HISTORY: HTN hx of osteomyelitis IDDM ESRD s/p renal transplant HLD Hx of DVT in left LE PAST SURGICAL HISTORY: renal transplant 2012 4-vessel CABG 2010, cardiac cath in 2010 IVC filter placed 01/05/2017 Family History: Allergies No Known Drug Allergies Allergy (Verified 01/11/17 07:40) HOME MEDICATIONS: Home Medications Medication Instructions Recorded Aspirin [ASA -] 81 mg PO HS 10/31/12 Tamsulosin HCl 0.4 mg PO HS 10/31/12 Atorvastatin Calcium [Lipitor] 10 mg PO HS 06/18/13 Tacrolimus [Prograf] 1 mg PO BID 04/08/16 Clopidogrel Bisulfate [Plavix -] 75 mg PO DAILY #30 tablet 04/13/16 Amlodipine Besylate 10 mg PO DAILY 04/28/16 Carvedilol [Coreg -] 25 mg PO BID tablet 05/03/16 Mycophenolate Sodium [Myfortic -] 360 mg PO BID tablet. 09/28/16 Hydralazine HCl [Apresoline -] 35 mg SQ DAILY 01/04/17 Insulin Glargine,Hum.rec.anlog 15 units SQ DAILY 01/05/17 [Lantus (10mL VIAL) -] Duloxetine HCl [Cymbalta -] 20 mg PO BID capsule. 01/06/17 Docusate Sodium [Colace -] 100 mg PO BID 01/11/17 Insulin (Levemir) [Levemir Flexpen 20 units SQ HS 01/11/17 -] Lactobacillus Acidophilus 1 each PO DAILY 01/11/17 [Acidophilus] Metformin HCl [Glucophage -] 1,000 mg PO BID@0700,1630 01/11/17 Prednisone [Deltasone -] 2.5 mg PO DAILY 01/11/17 REVIEW OF SYSTEMS UNABLE TO OBTAIN SECONDARY TO PATIENT's LETHARGY. PHYSICAL EXAMINATION GENERAL: in no acute distress. HEAD: Normal with no signs of trauma. EYES: EOMI, fixed defect in right pupil, left pupil reactive to light. sclera anicteric, conjunctiva clear. No lid lag. EARS, NOSE, THROAT: Ears normal, nares patent, oropharynx clear without exudates. dry mucous membranes. NECK: supple without lymphadenopathy, JVD, or masses. LUNGS: poor air entry. HEART: Regular rate and rhythm, soft systolic murmur in right mid-upper chest 3rd intercostal space, soft systolic murmur in left 3rd intercostal space ABDOMEN: Soft, nontender, not distended, normoactive bowel sounds, no guarding, no rebound, no masses. MUSCULOSKELETAL: No bony deformities or tenderness. No CVA tenderness. UPPER EXTREMITIES: fistula on right upper arm with thrill and bruit. fistula on left arm with minimal thrill, well healed scar in medial forearm. 2+ radial pulse on left, 1+ right radial. warm, well-perfused. No cyanosis. No clubbing. No peripheral edema. LOWER EXTREMITIES: 1+ distal pulses, warm, well-perfused. No calf tenderness. No peripheral edema. NEUROLOGICAL: awake, not fully following directions or answering questions appropriately. not oriented, easily arousable. 2/5 strength in b/l LE, freely moving b/l upper extremity. Laboratory Results - last 24 hr 01/11/17 01/11/17 01/11/17 07:19 07:36 07:36 WBC 22.5 H D RBC 4.77 Hgb 13.8 D Hct 42.5 D MCV 89.2 MCHC 32.5 RDW 15.0 Plt Count 297 D MPV 7.6 D Neutrophils % 68.0 Lymphocytes % 9.0 D Monocytes % 8.0 Eosinophils % 1.0 Differential Comment Manual diff done Reactive Lymphocytes 14 INR 0.96 PTT (Actin FS) 30.0 VBG pH POC VBG pCO2 POC VBG pO2 Mixed VBG HCO3 Sodium Potassium Chloride Carbon Dioxide Anion Gap BUN Creatinine Creat Clearance w eGFR POC Glucometer [phone] Random Glucose Lactic Acid Calcium Total Bilirubin AST ALT Alkaline Phosphatase Creatine Kinase Troponin I Total Protein Albumin Urine Color Urine Appearance Urine pH Ur Specific [place] Urine Protein Urine Glucose (UA) Urine Ketones Urine Blood Urine Nitrite Urine Bilirubin Urine Urobilinogen Ur Leukocyte Esterase Acetone, Qual Blood Type Antibody Screen 01/11/17 01/11/17 01/11/17 07:36 07:36 07:36 WBC RBC Hgb Hct MCV MCHC RDW Plt Count MPV Neutrophils % Lymphocytes % Monocytes % Eosinophils % Differential Comment Reactive Lymphocytes INR PTT (Actin FS) VBG pH POC VBG pCO2 POC VBG pO2 Mixed VBG HCO3 Sodium 138 Potassium 4.8 Chloride 99 Carbon Dioxide 29 Anion Gap 10 BUN 29 H D Creatinine 1.2 Creat Clearance w eGFR 59.18 POC Glucometer Random Glucose 233 H D Lactic Acid 1.121 Calcium 9.3 Total Bilirubin 0.4 AST 17 D ALT 23 D Alkaline Phosphatase 73 D Creatine Kinase 56 Troponin I < 0.02 D Total Protein 6.6 D Albumin 3.4 D Urine Color Urine Appearance Urine pH Ur Specific [place] Urine Protein Urine Glucose (UA) Urine Ketones Urine Blood Urine Nitrite Urine Bilirubin Urine Urobilinogen Ur Leukocyte Esterase Acetone, Qual Blood Type O POSITIVE Antibody Screen Negative 01/11/17 01/11/17 01/11/17 07:36 07:50 09:10 WBC RBC Hgb Hct MCV MCHC RDW Plt Count MPV Neutrophils % Lymphocytes % Monocytes % Eosinophils % Differential Comment Reactive Lymphocytes INR PTT (Actin FS) VBG pH 7.34 POC VBG pCO2 52.7 H POC VBG pO2 39.5 Mixed VBG HCO3 27.9 H Sodium Potassium Chloride Carbon Dioxide Anion Gap BUN Creatinine Creat Clearance w eGFR POC Glucometer Random Glucose Lactic Acid Calcium Total Bilirubin AST ALT Alkaline Phosphatase Creatine Kinase Troponin I Total Protein Albumin Urine Color Straw Urine Appearance Clear Urine pH 7.0 Ur Specific [place] 1.007 Urine Protein Negative Urine Glucose (UA) 3+ H Urine Ketones Negative Urine Blood Negative Urine Nitrite Negative Urine Bilirubin Negative Urine Urobilinogen Negative Ur Leukocyte Esterase Negative Acetone, Qual Negative Blood Type Antibody Screen Echo 10/2016 with normal EF, elevated right ventricular systolic pressure ASSESSMENT/PLAN: 76 yr old man with HTN, IDDM, s/p renal transplant, CAD s/p stents and CABG, BIBEMS from [facility] due to low BGM found to be hypothermic in ED. #SIRS (tachycardia, white count 22.5, hypothermia 93.8) - infectious vs hypoglycemia as cause of leucocytosis and hypothermia. - given immunosuppresion will cover with zosyn, received 1 dose in ED - Dr. Ziegler consulted - u/a without leuk, cxay without infiltrate, unlikley to be lung or gu source of infxn, bld and ucxr pending - repeat cxray in the morning #DM - currently hypoglycemic - bgm q4hr - D5 1/2 NS @ 75ml/hr until he is taking po - hold metformin and insulin #HTN - uncontrolled - unlikley to have received anti-hypertensives this morning, progress note from [facility] did not include given medications - start home meds: norvasc, metalazone, hydralazine - hydralazine 25mg po bid - Norvasc 10mg po daily - coreg 25mg po bid #DVT in left leg - IVC filter placed #S/p Renal transplant - tacrolimus, prednisone, mycophenolate - continue medications for immunosuppression, monitior BMP for acute rise - if Cr rises will consult Dr. Perez #CAD s/p stents, cabg - ASA - plavix #DVT - IVC filter, heparin TID #Diet - diabetic diet - dysphagia diet nectar consistency Visit type - Emergency Visit Emergency Visit: Yes ED Registration Date: 01/11/17 Care time: The patient presented to the Emergency Department on the above date and was hospitalized for further evaluation of their emergent condition. - New Patient This patient is new to me today: Yes Date on this admission: 01/11/17 - Critical Care Critical Care patient: No
--- NOTE | 2017-01-11 14:46 | PN ---
Teaching Attending Note Name of Resident: Christian Mckeon ATTENDING PHYSICIAN STATEMENT I saw and evaluated the patient. I reviewed the resident's note and discussed the case with the resident. I agree with the resident's findings and plan as documented. SUBJECTIVE: OBJECTIVE: Vital Signs Period Temp Pulse Resp BP Sys/Mendoza Pulse Ox Last 24 Hr 93.8 F-98.2 F 92-101 18-20 129-162/44-63 96-100 ASSESSMENT AND PLAN:
[2017-01-11] MEDS ORDERED: VANCOMYCIN 1 GRAM (PRE-DOCKED) 250 ML IVPB ONE (15:46)
--- NOTE | 2017-01-11 16:03 | PN ---
Progress Note (short form) - Note Progress Note: ID consult dictated imlp/reccd 76 piyush old man with diabetes, cad, kidney transplant recently hospitalized 01/01 to 01/06, received 5 days zosyn now with hypoglycemia, hypothermia and leukocytosis mentals status has resolved after glucose was corrected no identifiable focus of infection on exam remote history of ESBL UTI, multiple negative urines since UA negative cxray negative exam unremarkable cultures pending vanco/cefepime for now sepsis syndromel immunocompromised hose (renal transplant) diabetes hypoglycemia Problem List - Problems (1) Sepsis syndrome Code(s): YRN1596 - (2) H/O kidney transplant Code(s): Z94.0 - KIDNEY TRANSPLANT STATUS (3) Immunocompromised patient Code(s): D84.9 - IMMUNODEFICIENCY, UNSPECIFIED
[2017-01-11] MEDS ORDERED: CEFEPIME HCL 1 GM VIAL (RESTRICTED TO ID) IVPB SCH (16:15)
--- NOTE | 2017-01-11 17:07 | CONS ---
DATE OF CONSULTATION: DATE OF DICTATION: 01/11/2017 INFECTIOUS DISEASE CONSULTATION REQUESTING PHYSICIAN: Hospitalist Service CONSULTING PHYSICIAN: Judy Ziegler M.D. HISTORY OF PRESENT ILLNESS: This is a 76-year-old man who was recently in the hospital from January 01 to January 06. He has a history of a renal transplant, is on low-dose prednisone and Prograf. He also has a history of diabetes and coronary artery disease. During his last admission, he was admitted for hypoglycemia. He had an episode of change in mental status for which he was intubated to protect his airway, and during that admission he had some fever associated with intubation, was treated with a 5-day course of piperacillin and tazobactam for possible aspiration and discharged to the rehabilitation. He is readmitted today on January 11; he was discharged on January 06 with hypoglycemia. He apparently late last night in the middle of the night received some insulin for high blood sugar, this morning was found to be unresponsive with very low blood sugar, was given glucagon and dextrose and became more responsive and was brought to the emergency room. In the ER he was hypothermic and he had a white count of 22.4. He had blood cultures and urine cultures sent in, and he was given piperacillin and tazobactam. I am asked to see him for further recommendations. Currently he is awake. He knows he is at [facility]. He wants to eat. He is lying flat in bed in no distress. PAST MEDICAL HISTORY: Notable for heart failure, hypertension, coronary artery disease, diabetes, hypercholesterolemia. He is status post end-stage renal disease on dialysis and is status post kidney transplant in 2011. He is status post CABG as well. During the last admission, he also had a DVT in his left leg, a popliteal DVT. He had an IVC filter placed and his coumadin was stopped. FAMILY HISTORY: Noncontributory. ALLERGIES: He has no known drug allergies. MEDICATION: Include aspirin, tamsulosin, Lipitor, Prograf, Plavix, amlodipine, Coreg, Apresoline, insulin, Cymbalta, Colace, insulin, lactobacillus, Glucophage, and Deltasone. REVIEW OF SYSTEMS: He currently complains of headache, though he looks quite comfortable. He says yes to chest pain and abdominal pain, though as well he looks quite comfortable. He denies any cough, and he does not appear to be in any respiratory distress. PHYSICAL EXAMINATION: Vital signs: Current temperature is 98.2, pulse 92, blood pressure 129/44, pulse of 98, respiratory rate 18. He is saturating 96% on 4 L. HEENT: Normocephalic. Eyes are anicteric. Neck: Supple. He has no meningeal signs. Lungs: Clear to auscultation. Heart: Regular rate and rhythm. Abdomen: Flat, soft. He has good bowel sounds. Extremities: Without edema. LABORATORY: Notable for a white count of 22.5, hemoglobin 13.8, platelets 297. He has INR 0.96. BUN and creatinine are 29 and 1.2. LFTs are normal. Glucose 233. Urinalysis shows 3+ glucose, otherwise is negative. Acetones are negative. Cultures are pending. Chest x-ray was done and shows no evidence of infiltrate. IMPRESSION: In summary, this is a 76-year-old man with kidney transplant, recent admission for hyperglycemia ended up being transiently intubated with a popliteal deep vein thrombosis requiring inferior vena cava filter who is now admitted with hypoglycemia, hypothermia, and leukocytosis. There are no clinical signs of any infection except for his lab parameters. He did receive insulin last night which would explain his hypoglycemia. It is difficult to know whether the leukocytosis is reactive to the hypoglycemia, or whether he truly has infection. Cultures have been sent. Would empirically cover him with antibiotics for empiric gram negative as well as staphylococcus coverage. I would switch him to cefepime, as he was recently on piperacillin, tazobactam, and would give him a dose of vancomycin as well. This was discussed with the hospitalist service. Further recommendations to follow. Abhilash [id number] YOLANDA
--- NOTE | 2017-01-11 21:26 | EKG ---
Test Reason : Blood Pressure : / mmHG Vent. Rate : 072 BPM Atrial Rate : 072 BPM P-R Int : 160 ms QRS Dur : 140 ms QT Int : 452 ms P-R-T Axes : 017 -59 017 degrees QTc Int : 494 ms SINUS RHYTHM WITH PREMATURE ATRIAL COMPLEXES RIGHT BUNDLE BRANCH BLOCK LEFT ANTERIOR FASCICULAR BLOCK BIFASCICULAR BLOCK MINIMAL VOLTAGE CRITERIA FOR LVH, MAY BE NORMAL VARIANT ABNORMAL ECG WHEN COMPARED WITH ECG OF 02-JAN-2017 02:06, PREMATURE ATRIAL COMPLEXES ARE NOW PRESENT T WAVE VARIATION Confirmed by YUNIEL MCGOWAN MD ([id number]) on 01/11/2017 9:25:48 PM Referred By: Confirmed By:YUNIEL MCGOWAN MD
[2017-01-11] MEDS: CEFEPIME 1 GM/100 ML BAG PRE-DOCKED IVPB SCH (22:12)
[2017-01-11] MEDS: DULoxetine HCL 20 MG CAPSULE.DR (FP) PO SCH (22:14)
[2017-01-11] MEDS: HEPARIN NA (PORCINE) 5,000 UNITS/ML 1ML VIAL SQ SCH (22:14)
[2017-01-11] MEDS: TAMSULOSIN HCL 0.4 MG CAP.ER.24H (FP) PO SCH (22:14)
[2017-01-11] MEDS: DOCUSATE SODIUM 100 MG CAPSULE (FP) PO SCH (22:14)
[2017-01-11] MEDS: CARVEDILOL 25 MG TABLET (FP) PO SCH (22:14)
[2017-01-11] MEDS: ASPIRIN 81 MG CHEWABLE TABLETS PO SCH (22:14)
[2017-01-11] MEDS: ATORVASTATIN CA 10 MG TABLET (FP) PO SCH (22:15)
[2017-01-11] MEDS: TACROLIMUS ANHYDROUS 1 MG CAPSULE (NF) PO SCH (22:16)
[2017-01-11] MEDS: MYCOPHENOLATE SODIUM 360 MG TABLET.DR PO SCH (22:41)
[2017-01-12] MEDS: HEPARIN NA (PORCINE) 5,000 UNITS/ML 1ML VIAL SQ SCH ×3 (06:10→22:44)
[2017-01-12 07:15] LABS: BASOPHIL 0.6 % (0-2.0); EOSINOPHIL 0.8 % (0-4.5); MCHC 32.5 g/dl (32.0-35.9); MEAN CELL VOLUME 89.2 fl (80-96); MEAN PLT VOLUME 7.8 fl (7.5-11.1); NEUTROPHILS 76.6 % (42.8-82.8); PLATELET COUNT 238 K/MM3 (134-434); RDW 14.9 % (11.9-15.9); WHITE BLOOD COUNT 16.1 K/mm3 (4.0-10.0)
[2017-01-12 07:47] LABS: ALBUMIN 2.8 g/dl (3.4-5.0); ANION GAP 9 (8-16); CALCIUM 8.4 mg/dL (8.5-10.1); CO2 28 mmol/L (21-32); GLUCOSE,RANDOM 134 mg/dL (74-106); MAGNESIUM 1.5 mg/dL (1.8-2.4); PHOSPHOROUS 3.6 mg/dL (2.5-4.9); SGOT/AST 11 U/L (15-37); SGPT/ALT 18 U/L (12-78)
[2017-01-12 07:49] LABS: ALK PHOS 51 U/L (45-117); BILIRUBIN,TOTAL 0.5 mg/dL (0.2-1.0); TOT PROT 5.2 g/dl (6.4-8.2)
[2017-01-12] MEDS ORDERED: hydrALAZINE HCL 25 MG TABLET (FP) ONE (09:54)
[2017-01-12] MEDS ORDERED: hydrALAZINE HCL 10 MG TABLET ONE (09:54)
[2017-01-12] MEDS ORDERED: PT OWN MED DRAWER 7, Y5N ONE (09:55)
[2017-01-12] MEDS ORDERED: hydrALAZINE HCL 25 MG TABLET (FP) PO SCH (10:00)
[2017-01-12] MEDS ORDERED: predniSONE 5 MG TABLET (UD) PO SCH (10:00)
[2017-01-12] MEDS ORDERED: PATIENT'S OWN MEDICATION (NON-FORMULARY) (Lactobacillus Acidophilus [Acidophilus] 1 EACH) PO SCH (10:00)
[2017-01-12] MEDS: CARVEDILOL 25 MG TABLET (FP) PO SCH ×2 (10:12→22:45)
[2017-01-12] MEDS: CLOPIDOGREL BISULFATE 75 MG TABLET (FP) PO SCH (10:12)
[2017-01-12] MEDS: LACTOBACILLUS ACIDOPHILUS 1 EACH TAB (FP) PO SCH (10:13)
[2017-01-12] MEDS: DULoxetine HCL 20 MG CAPSULE.DR (FP) PO SCH ×2 (10:13→22:45)
[2017-01-12] MEDS: amLODIPine BESYLATE 10 MG TABLET (FP) PO SCH (10:13)
[2017-01-12] MEDS: HYDRALAZINE PO SCH (10:13)
[2017-01-12] MEDS: DOCUSATE SODIUM 100 MG CAPSULE (FP) PO SCH ×2 (10:14→22:45)
[2017-01-12] MEDS: MYCOPHENOLATE SODIUM 360 MG TABLET.DR PO SCH ×2 (10:15→22:45)
[2017-01-12] MEDS: TACROLIMUS ANHYDROUS 1 MG CAPSULE (NF) PO SCH ×2 (10:15→22:54)
[2017-01-12] MEDS: CEFEPIME 1 GM/100 ML BAG PRE-DOCKED IVPB SCH (10:16)
--- NOTE | 2017-01-12 13:06 | PN ---
Progress Note (short form) - Note Progress Note: doing well alert no complaints Vital Signs Period Temp Pulse Resp BP Sys/Mendoza Pulse Ox Last 24 Hr 97 F-98.4 F 74-98 18-20 123-149/35-55 95-99 cor-rrr lungs clear abd soft,nt ext no edema cxray no infiltrate CBC, BMP 01/12/17 05:35 01/12/17 05:35 Microbiology 01/11/17 09:10 Urine - Urine Clean Catch Urine Culture - Final NO GROWTH OBTAINED 01/11/17 07:36 Blood - Peripheral Venous Blood Culture - Preliminary NO GROWTH OBTAINED AFTER 24 HOURS, INCUBATION TO CONTINUE FOR 4 DAYS. 01/11/17 07:36 Blood - Peripheral Venous Blood Culture - Preliminary Pending Organism a/p positive blood culture leukocytosis hypoglycemia resolve mental status is normal renal transplant diabetes d/c cefepime vancomycin one dose f/u cultures
--- NOTE | 2017-01-12 14:33 | PN ---
Physical Exam: SUBJECTIVE: Patient seen and examined. unable to recall yesterday's events, being at [facility]. denies chest pain, headache, cough, palpitations. OBJECTIVE: Vital Signs Period Temp Pulse Resp BP Sys/Mendoza Pulse Ox Last 24 Hr 97 F-98.4 F 73-88 18-20 123-147/39-55 95-99 GENERAL: The patient is awake, alert, and oriented to person and place, in no acute distress. EYES: PERRL, extraocular movements intact, sclera anicteric, conjunctiva clear. ENT: oropharynx clear without exudates, moist mucous membranes. LUNGS: Breath sounds equal, clear to auscultation bilaterally, mild crackle and wheezing in right lower base HEART: Regular rate and rhythm, S1, S2 without murmur, rub or gallop. ABDOMEN: Soft, nontender, nondistended, EXTREMITIES: 2+ pulses, warm, well-perfused, no edema. NEUROLOGICAL: Normal speech, gait not observed. 4/5 strength in shoulder, bicep /triceps/wrist, hip/knee/ankle. PSYCH: Normal mood, normal affect. Laboratory Results - last 24 hr 01/11/17 01/11/17 01/11/17 14:15 16:01 17:09 WBC RBC Hgb Hct MCV MCHC RDW Plt Count MPV Neutrophils % Lymphocytes % Monocytes % Eosinophils % Basophils % Sodium Potassium Chloride Carbon Dioxide Anion Gap BUN Creatinine Creat Clearance w eGFR POC Glucometer 107 89 190 Random Glucose Calcium Phosphorus Magnesium Total Bilirubin AST ALT Alkaline Phosphatase Total Protein Albumin 01/11/17 01/12/17 01/12/17 22:27 01:16 05:14 WBC RBC Hgb Hct MCV MCHC RDW Plt Count MPV Neutrophils % Lymphocytes % Monocytes % Eosinophils % Basophils % Sodium Potassium Chloride Carbon Dioxide Anion Gap BUN Creatinine Creat Clearance w eGFR POC Glucometer 210 178 140 Random Glucose Calcium Phosphorus Magnesium Total Bilirubin AST ALT Alkaline Phosphatase Total Protein Albumin 01/12/17 01/12/17 01/12/17 05:35 05:35 10:10 WBC 16.1 H RBC 3.98 L Hgb 11.6 L D Hct 35.5 D MCV 89.2 MCHC 32.5 RDW 14.9 Plt Count 238 MPV 7.8 Neutrophils % 76.6 Lymphocytes % 16.8 D Monocytes % 5.2 Eosinophils % 0.8 Basophils % 0.6 Sodium 137 Potassium 4.6 Chloride 100 Carbon Dioxide 28 Anion Gap 9 BUN 29 H Creatinine 1.0 Creat Clearance w eGFR > 60 POC Glucometer 208 Random Glucose 134 H D Calcium 8.4 L Phosphorus 3.6 D Magnesium 1.5 L Total Bilirubin 0.5 D AST 11 L D ALT 18 D Alkaline Phosphatase 51 D Total Protein 5.2 L D Albumin 2.8 L 01/12/17 13:41 WBC RBC Hgb Hct MCV MCHC RDW Plt Count MPV Neutrophils % Lymphocytes % Monocytes % Eosinophils % Basophils % Sodium Potassium Chloride Carbon Dioxide Anion Gap BUN Creatinine Creat Clearance w eGFR POC Glucometer 313 Random Glucose Calcium Phosphorus Magnesium Total Bilirubin AST ALT Alkaline Phosphatase Total Protein Albumin Active Medications Generic Name Dose Route Start Last Admin Trade Name Freq PRN Reason Stop Dose Admin Amlodipine Besylate 10 mg 01/12/17 10:00 01/12/17 10:13 Norvasc - PO 10 mg DAILY HUGO Administration Aspirin 81 mg 01/11/17 22:00 01/11/17 22:14 Asa - PO 81 mg HS HUGO Administration Atorvastatin Calcium 10 mg 01/11/17 22:00 01/11/17 22:15 Lipitor - PO 10 mg HS HUGO Administration Carvedilol 25 mg 01/11/17 22:00 01/12/17 10:12 Coreg - PO 25 mg BID HUGO Administration Clopidogrel Bisulfate 75 mg 01/12/17 10:00 01/12/17 10:12 Plavix - PO 75 mg DAILY HUGO Administration Docusate Sodium 100 mg 01/11/17 22:00 01/12/17 10:14 Colace - PO 100 mg BID HUGO Administration Duloxetine HCl 20 mg 01/11/17 22:00 01/12/17 10:13 Cymbalta - PO 20 mg BID HUGO Administration Heparin Sodium (Porcine) 5,000 unit 01/11/17 22:00 01/12/17 13:55 Heparin - SQ 5,000 unit TID HUGO Administration Hydralazine HCl 10 mg/ 35 mg 01/12/17 10:00 01/12/17 10:13 Hydralazine HCl 25 mg PO 35 mg DAILY UHGO Administration Vancomycin HCl 250 mls @ 250 mls/hr 01/12/17 15:00 Vancomycin (Pre-Docked) IVPB 01/12/17 15:59 ONCE ONE Protocol Lactobacillus Acidophilus 1 tab 01/12/17 10:00 01/12/17 10:13 Bacid - PO 1 tab DAILY HUGO Administration Mycophenolate Sodium 360 mg 01/11/17 22:00 01/12/17 10:15 Mycophenolic Acid PO 360 mg BID HUGO Administration Prednisone 2.5 mg 01/12/17 10:00 01/12/17 10:13 Deltasone - PO 2.5 mg DAILY HUGO Administration Tacrolimus 1 mg 01/11/17 22:00 01/12/17 10:15 Prograf (Non-Formulary) PO 1 mg BID HUGO Administration Tamsulosin HCl 0.4 mg 01/11/17 22:00 01/11/17 22:14 Flomax - PO 0.4 mg HS HUGO Administration ASSESSMENT/PLAN: 76 yr old man with HTN, IDDM, s/p renal transplant, CAD s/p stents and CABG, BIBEMS from [facility] due to low BGM found to be hypothermic in ED. - AMS signficant improvement - patient is now alert, oriented to person, place, time but unable to give history of how he came to the hospital or events at [facility] since last discharge. - physical therapy consult #SIRS (tachycardia, white count 22.5, hypothermia 93.8) - improved - suspicious for infectious cause of hypoglycemia and hypothermia given 1 bottle blood culture positive for growth- awaiting speciation, Vancomycin started today - Dr. Ziegler consulted - u/a without leuk, ucx without growth, cxay without infiltrate, unlikley to be lung or gu source of infxn - repeat cxray without infiltrate/effusion #DM - hypoglycemia resolved, patient is eating and drinking - bgm ACHS - Levemir 15units in the AM and NISS ACHS - hold metformin #HTN - uncontrolled - hydralazine 25mg po bid - Norvasc 10mg po daily - coreg 25mg po bid #DVT in left leg - IVC filter placed #S/p Renal transplant - tacrolimus, prednisone, mycophenolate - continue medications for immunosuppression, monitior BMP for acute rise - if Cr rises will consult Dr. Perez #CAD s/p stents, cabg - ASA - plavix #DVT - IVC filter, heparin TID #Diet - diabetic diet - dysphagia diet nectar consistency Visit type - Emergency Visit Emergency Visit: No - New Patient This patient is new to me today: No - Critical Care Critical Care patient: No
--- NOTE | 2017-01-12 14:38 | PN ---
Teaching Attending Note Name of Resident: Christian Mckeon ATTENDING PHYSICIAN STATEMENT I saw and evaluated the patient. I reviewed the resident's note and discussed the case with the resident. I agree with the resident's findings and plan as documented. SUBJECTIVE:APPEARS MORE ALERT TODAY. NO ACUTE EVENTS OVERNIGHT. OBJECTIVE: 01/12/17 01/12/17 09:00 14:07 Temperature 97.6 F Pulse Rate 74 73 Respiratory 18 20 Rate Blood Pressure 146/48 123/39 O2 Sat by Pulse 98 Oximetry (%) CBC, BMP 01/12/17 05:35 01/12/17 05:35 Urine Test Results Urine Color Straw 01/11/17 09:10 Urine Appearance Clear 01/11/17 09:10 Urine pH 7.0 (5.0-8.0) 01/11/17 09:10 Ur Specific [place] 1.007 (1.001-1.035) 01/11/17 09:10 Urine Protein Negative (NEGATIVE) 01/11/17 09:10 Urine Glucose (UA) 3+ (NEGATIVE) H 01/11/17 09:10 Urine Ketones Negative (NEGATIVE) 01/11/17 09:10 Urine Blood Negative (NEGATIVE) 01/11/17 09:10 Urine Nitrite Negative (NEGATIVE) 01/11/17 09:10 Urine Bilirubin Negative (NEGATIVE) 01/11/17 09:10 Ur Leukocyte Esterase Negative (NEGATIVE) 01/11/17 09:10 GENERAL: The patient is awake, alert, and fully oriented, in no acute distress. HEAD: Normal with no signs of trauma. EYES: PERRL, extraocular movements intact, sclera anicteric, conjunctiva clear. No ptosis. ENT: Ears normal, nares patent, oropharynx clear without exudates, moist mucous membranes. NECK: Trachea midline, full range of motion, supple. LUNGS: Breath sounds equal, clear to auscultation bilaterally, no wheezes, no crackles, no accessory muscle use. HEART: Regular rate and rhythm, S1, S2 without murmur, rub or gallop. ABDOMEN: Soft, nontender, nondistended, normoactive bowel sounds, no guarding, no rebound, no hepatosplenomegaly, no masses. EXTREMITIES: 2+ pulses, warm, well-perfused, no edema. NEUROLOGICAL: Cranial nerves II through XII grossly intact. Normal speech, gait not observed. PSYCH: Normal mood, normal affect. SKIN: Warm, dry, normal turgor, no rashes or lesions noted ASSESSMENT AND PLAN: 76 yr old man with WITH HISTORY OF RENAL TRANSPLANT THAT PRESENTED DUE TO SEPSIS AND HYPOGLYCEMIA #Sepsis - blood cultures positive for GR + cocci ,leukocytosis is improving, afebrile, s/p cefepime and Vanco -will continue with IV Vancomycin -ID follow up -Repeat BC #Episode of hypoglycemia- likely related to sepsis vs insulin induced.Resolved. -will reinstate oral antihyperglycemics #HTN - now controlled after reinstatement of home meds - c/w current management #DVT in left leg - s/p IVC filter #S/p Renal transplant - tacrolimus, prednisone, mycophenolate - continue medications for immunosuppression, monitior BMP for acute rise #CAD-stable - ASA - plavix # Hypomagnesemia -supplement and repeat BMP
[2017-01-12] MEDS ORDERED: VANCOMYCIN 1 GRAM (PRE-DOCKED) 250 ML IVPB ONE (15:00)
[2017-01-12] MEDS: INSULIN SLIDING SCALE (NOVOLOG) 1 VIAL SQ SCH ×2 (17:36→22:48)
[2017-01-12] MEDS: MAGNESIUM OXIDE 400 MG TABLET (FP) PO SCH (17:37)
[2017-01-12] MEDS: ASPIRIN 81 MG CHEWABLE TABLETS PO SCH (22:45)
[2017-01-12] MEDS: TAMSULOSIN HCL 0.4 MG CAP.ER.24H (FP) PO SCH (22:45)
[2017-01-12] MEDS: ATORVASTATIN CA 10 MG TABLET (FP) PO SCH (22:45)
[2017-01-13] MEDS: HEPARIN NA (PORCINE) 5,000 UNITS/ML 1ML VIAL SQ SCH ×3 (06:45→21:58)
[2017-01-13] MEDS: INSULIN DETEMIR 100 UNITS/ML MDV SQ SCH (06:45)
[2017-01-13] MEDS: INSULIN SLIDING SCALE (NOVOLOG) 1 VIAL SQ SCH ×4 (06:46→21:59)
[2017-01-13 07:26] LABS: BASOPHIL 0.7 % (0-2.0); EOSINOPHIL 2.9 % (0-4.5); MCH 29.4 pg (25.7-33.7); MCHC 33.1 g/dl (32.0-35.9); MEAN CELL VOLUME 88.8 fl (80-96); MEAN PLT VOLUME 7.6 fl (7.5-11.1); NEUTROPHILS 68.5 % (42.8-82.8); PLATELET COUNT 250 K/MM3 (134-434); RDW 14.7 % (11.9-15.9); WHITE BLOOD COUNT 9.8 K/mm3 (4.0-10.0)
[2017-01-13 08:10] LABS: CALCIUM 8.5 mg/dL (8.5-10.1)
[2017-01-13 08:12] LABS: CREATININE 0.9 mg/dL (0.7-1.3)
[2017-01-13] MEDS ORDERED: hydrALAZINE HCL 25 MG TABLET (FP) ONE (09:40)
[2017-01-13] MEDS ORDERED: hydrALAZINE HCL 10 MG TABLET ONE (09:40)
[2017-01-13] MEDS: MYCOPHENOLATE SODIUM 360 MG TABLET.DR PO SCH ×2 (09:58→21:59)
[2017-01-13] MEDS: predniSONE 5 MG TABLET (UD) PO SCH ×2 (09:58)
[2017-01-13] MEDS: LACTOBACILLUS ACIDOPHILUS 1 EACH TAB (FP) PO SCH (09:58)
[2017-01-13] MEDS: HYDRALAZINE PO SCH (09:58)
[2017-01-13] MEDS: CLOPIDOGREL BISULFATE 75 MG TABLET (FP) PO SCH (09:58)
[2017-01-13] MEDS: amLODIPine BESYLATE 10 MG TABLET (FP) PO SCH (09:58)
[2017-01-13] MEDS: CARVEDILOL 25 MG TABLET (FP) PO SCH (09:59)
[2017-01-13] MEDS: TACROLIMUS ANHYDROUS 1 MG CAPSULE (NF) PO SCH ×2 (09:59→22:00)
[2017-01-13] MEDS: MAGNESIUM OXIDE 400 MG TABLET (FP) PO SCH (09:59)
[2017-01-13] MEDS: DULoxetine HCL 20 MG CAPSULE.DR (FP) PO SCH ×2 (09:59→21:58)
[2017-01-13] MEDS: DOCUSATE SODIUM 100 MG CAPSULE (FP) PO SCH ×2 (09:59→21:57)
--- NOTE | 2017-01-13 11:49 | PN ---
Physical Exam: SUBJECTIVE: Patient seen and examined. Alert, awake. oriented to person. unable to recall yesterday's events. does not remember me. OBJECTIVE: Vital Signs Period Temp Pulse Resp BP Sys/Mendoza Pulse Ox Last 24 Hr 97.7 F-98.6 F 68-79 14-20 123-161/39-60 95 GENERAL: The patient is awake, alert, and oriented to person and place, not date , in no acute distress. EYES: PERRL, extraocular movements intact, sclera anicteric, conjunctiva clear. ENT: oropharynx clear without exudates, moist mucous membranes. LUNGS: Breath sounds equal, clear to auscultation bilaterally, mild crackle and wheezing in right lower base HEART: Regular rate and rhythm, S1, S2 without murmur, rub or gallop. ABDOMEN: Soft, nontender, nondistended, EXTREMITIES: 2+ pulses, warm, well-perfused, no edema. NEUROLOGICAL: Normal speech, gait not observed. 4/5 strength in shoulder, bicep /triceps/wrist, 3/5 hip/knee/ankle. PSYCH: Normal mood, normal affect. Laboratory Results - last 24 hr 01/12/17 01/12/17 01/12/17 13:41 17:10 22:32 WBC RBC Hgb Hct MCV MCHC RDW Plt Count MPV Neutrophils % Lymphocytes % Monocytes % Eosinophils % Basophils % Sodium Potassium Chloride Carbon Dioxide Anion Gap BUN Creatinine POC Glucometer 313 310 219 Random Glucose Calcium 01/13/17 01/13/17 01/13/17 05:35 05:35 05:58 WBC 9.8 D RBC 3.88 L Hgb 11.4 L Hct 34.5 L MCV 88.8 MCHC 33.1 RDW 14.7 Plt Count 250 MPV 7.6 Neutrophils % 68.5 Lymphocytes % 21.2 D Monocytes % 6.7 Eosinophils % 2.9 D Basophils % 0.7 Sodium 139 Potassium 4.6 Chloride 102 Carbon Dioxide 28 Anion Gap 9 BUN 25 H Creatinine 0.9 POC Glucometer 131 Random Glucose 125 H Calcium 8.5 01/13/17 11:12 WBC RBC Hgb Hct MCV MCHC RDW Plt Count MPV Neutrophils % Lymphocytes % Monocytes % Eosinophils % Basophils % Sodium Potassium Chloride Carbon Dioxide Anion Gap BUN Creatinine POC Glucometer 287 Random Glucose Calcium Active Medications Generic Name Dose Route Start Last Admin Trade Name Freq PRN Reason Stop Dose Admin Amlodipine Besylate 10 mg 01/12/17 10:00 01/13/17 09:58 Norvasc - PO 10 mg DAILY [facility] Administration Aspirin 81 mg 01/11/17 22:00 01/12/17 22:45 Asa - PO 81 mg HS [facility] Administration Atorvastatin Calcium 10 mg 01/11/17 22:00 01/12/17 22:45 Lipitor - PO 10 mg HS [facility] Administration Carvedilol 25 mg 01/11/17 22:00 01/13/17 09:59 Coreg - PO 25 mg BID [facility] Administration Clopidogrel Bisulfate 75 mg 01/12/17 10:00 01/13/17 09:58 Plavix - PO 75 mg DAILY [facility] Administration Docusate Sodium 100 mg 01/11/17 22:00 01/13/17 09:59 Colace - PO 100 mg BID [facility] Administration Duloxetine HCl 20 mg 01/11/17 22:00 01/13/17 09:59 Cymbalta - PO 20 mg BID [facility] Administration Heparin Sodium (Porcine) 5,000 unit 01/11/17 22:00 01/13/17 06:45 Heparin - SQ 5,000 unit TID [facility] Administration Hydralazine HCl 10 mg/ 35 mg 01/12/17 10:00 01/13/17 09:58 Hydralazine HCl 25 mg PO 35 mg DAILY [facility] Administration Insulin Aspart 1 vial 01/12/17 16:30 01/13/17 06:46 Novolog Vial Sliding Scale - SQ Not Given [facility] Protocol Insulin Detemir 15 units 01/13/17 07:00 01/13/17 06:45 Levemir Vial SQ 15 units AM [facility] Administration Lactobacillus Acidophilus 1 tab 01/12/17 10:00 01/13/17 09:58 Bacid - PO 1 tab DAILY [facility] Administration Magnesium Oxide 400 mg 01/12/17 14:50 01/13/17 09:59 Mag-Ox - PO 400 mg DAILY [facility] Administration Mycophenolate Sodium 360 mg 01/11/17 22:00 01/13/17 09:58 Mycophenolic Acid PO 360 mg BID [facility] Administration Prednisone 5 mg 01/13/17 08:45 01/13/17 09:58 Deltasone - PO 5 mg DAILY [facility] Administration Tacrolimus 1 mg 01/11/17 22:00 01/13/17 09:59 Prograf (Non-Formulary) PO 1 mg BID [facility] Administration Tamsulosin HCl 0.4 mg 01/11/17 22:00 01/12/17 22:45 Flomax - PO 0.4 mg HS [facility] Administration ASSESSMENT/PLAN: 76 yr old man with HTN, IDDM, s/p renal transplant, CAD s/p stents and CABG, BIBEMS from [facility] due to low BGM found to be hypothermic in ED. - AMS signficant improvement - patient is now alert, oriented to person, place, time but unable to give history of how he came to the hospital or events at [facility] since last discharge. - physical therapy consult; ambulated 30ft with rolling walker, recommend continued therapy - patient's cognitive decline likely component of dementia #SIRS (tachycardia, white count 22.5, hypothermia 93.8) - improved - suspicious for infectious cause of hypoglycemia and hypothermia given 1 bottle blood culture positive for growth- awaiting speciation - monitor off antibiotics - Dr. Ziegler consulted - u/a without leuk, ucx without growth, cxay without infiltrate, unlikley to be lung or gu source of infxn - repeat cxray without infiltrate/effusion #DM - hypoglycemia resolved, patient is eating and drinking - bgm ACHS - Levemir 15units in the AM and NISS ACHS - hold metformin #HTN - suboptimal commission for the blind director elevated BP; change coreg to 12.5 BID for better AM control - hydralazine 25mg po bid - Norvasc 10mg po daily - coreg 12.5mg po bid #DVT in left leg - IVC filter placed #S/p Renal transplant - tacrolimus, prednisone, mycophenolate - continue medications for immunosuppression, monitior BMP for acute rise - if Cr rises will consult Dr. Perez #CAD s/p stents, cabg - ASA - plavix #DVT - IVC filter, heparin TID #Diet - diabetic diet - dysphagia diet nectar consistency Visit type - Emergency Visit Emergency Visit: No - New Patient This patient is new to me today: No - Critical Care Critical Care patient: No
--- NOTE | 2017-01-13 15:25 | PN ---
Teaching Attending Note Name of Resident: Christian Mckeon ATTENDING PHYSICIAN STATEMENT I saw and evaluated the patient. I reviewed the resident's note and discussed the case with the resident. I agree with the resident's findings and plan as documented. SUBJECTIVE:no acute events, no new complaints Vital Signs Temperature 98.2 F 01/13/17 09:00 Pulse Rate 74 01/13/17 09:00 Respiratory Rate 14 01/13/17 09:00 Blood Pressure 138/54 01/13/17 09:00 O2 Sat by Pulse Oximetry (%) 96 01/13/17 09:00 OBJECTIVE: GENERAL: The patient is awake, alert, and oriented to person and place, not date , in no acute distress. EYES: PERRL, extraocular movements intact, sclera anicteric, conjunctiva clear. ENT: oropharynx clear without exudates, moist mucous membranes. LUNGS: Breath sounds equal, clear to auscultation bilaterally, mild crackle and wheezing in right lower base HEART: Regular rate and rhythm, S1, S2 without murmur, rub or gallop. ABDOMEN: Soft, nontender, nondistended, EXTREMITIES: 2+ pulses, warm, well-perfused, no edema. NEUROLOGICAL: Normal speech, gait not observed. 4/5 strength in shoulder, bicep /triceps/wrist, 3/5 hip/knee/ankle. PSYCH: Normal mood, normal affect. CBC, BMP 01/13/17 05:35 01/13/17 05:35 ASSESSMENT AND PLAN: 76 yr old man with WITH HISTORY OF RENAL TRANSPLANT THAT PRESENTED DUE TO SEPSIS AND HYPOGLYCEMIA #Sepsis - resolved -ID follow up appreciated, if no IV antibiotics planned will start d/c planning #Episode of hypoglycemia- likely related to sepsis vs insulin induced.Resolved. #HTN - now controlled after reinstatement of home meds - c/w current management #DVT in left leg - s/p IVC filter #S/p Renal transplant - tacrolimus, prednisone, mycophenolate - continue medications for immunosuppression, monitior BMP for acute rise #CAD-stable - ASA - plavix # Hypomagnesemia -supplement and repeat BMP
--- NOTE | 2017-01-13 15:47 | PN ---
Progress Note, Physician History of Present Illness: Awake and alert Answers appropriately No complaints Afebrile WBC improved WNL BC SCN x2 - Current Medication List Current Medications: Active Medications Amlodipine Besylate (Norvasc -) 10 mg PO DAILY [facility] Last Admin: 01/13/17 09:58 Dose: 10 mg Aspirin (Asa -) 81 mg PO HS [facility] Last Admin: 01/12/17 22:45 Dose: 81 mg Atorvastatin Calcium (Lipitor -) 10 mg PO HS [facility] Last Admin: 01/12/17 22:45 Dose: 10 mg Carvedilol (Coreg -) 12.5 mg PO BID [facility] Clopidogrel Bisulfate (Plavix -) 75 mg PO DAILY [facility] Last Admin: 01/13/17 09:58 Dose: 75 mg Docusate Sodium (Colace -) 100 mg PO BID [facility] Last Admin: 01/13/17 09:59 Dose: 100 mg Duloxetine HCl (Cymbalta -) 20 mg PO BID [facility] Last Admin: 01/13/17 09:59 Dose: 20 mg Heparin Sodium (Porcine) (Heparin -) 5,000 unit SQ TID [facility] Last Admin: 01/13/17 15:03 Dose: 5,000 unit Hydralazine HCl 10 mg/ (Hydralazine HCl 25 mg) 35 mg PO DAILY [facility] Last Admin: 01/13/17 09:58 Dose: 35 mg Insulin Aspart (Novolog Vial Sliding Scale -) 1 vial SQ [facility] PRN Reason: Protocol Last Admin: 01/13/17 12:07 Dose: 6 units Insulin Detemir (Levemir Vial) 15 units SQ AM [facility] Last Admin: 01/13/17 06:45 Dose: 15 units Lactobacillus Acidophilus (Bacid -) 1 tab PO DAILY [facility] Last Admin: 01/13/17 09:58 Dose: 1 tab Magnesium Oxide (Mag-Ox -) 400 mg PO DAILY [facility] Last Admin: 01/13/17 09:59 Dose: 400 mg Mycophenolate Sodium (Mycophenolic Acid) 360 mg PO BID [facility] Last Admin: 01/13/17 09:58 Dose: 360 mg Prednisone (Deltasone -) 5 mg PO DAILY [facility] Last Admin: 01/13/17 09:58 Dose: 5 mg Tacrolimus (Prograf (Non-Formulary)) 1 mg PO BID [facility] Last Admin: 01/13/17 09:59 Dose: 1 mg Tamsulosin HCl (Flomax -) 0.4 mg PO HS [facility] Last Admin: 01/12/17 22:45 Dose: 0.4 mg - Objective Vital Signs: Vital Signs Temperature 98.2 F 01/13/17 09:00 Pulse Rate 74 01/13/17 09:00 Respiratory Rate 14 01/13/17 09:00 Blood Pressure 138/54 01/13/17 09:00 O2 Sat by Pulse Oximetry (%) 96 01/13/17 09:00 Constitutional: Yes: No Distress Eyes: Yes: Conjunctiva Clear Cardiovascular: Yes: Regular Rate and Rhythm, S1, S2 Respiratory: Yes: CTA Bilaterally Gastrointestinal: Yes: Normal Bowel Sounds, Soft. No: Tenderness Edema: No Labs: CBC, BMP 01/13/17 05:35 01/13/17 05:35 INR, PTT INR 0.96 (0.82-1.09) 01/11/17 07:36 Assessment/Plan + BC = contaminant S/P hypothermia/ leukocytosis S/P renal transplant Observe off antibiotics
[2017-01-13] MEDS: ASPIRIN 81 MG CHEWABLE TABLETS PO SCH (21:57)
[2017-01-13] MEDS: ATORVASTATIN CA 10 MG TABLET (FP) PO SCH (21:58)
[2017-01-13] MEDS: TAMSULOSIN HCL 0.4 MG CAP.ER.24H (FP) PO SCH (21:58)
[2017-01-13] MEDS ORDERED: CARVEDILOL 12.5 MG TABLET (FP) PO SCH (22:00)
[2017-01-13] MEDS ORDERED: CARVEDILOL 12.5 MG TABLET (FP) PO ONE (23:41)
[2017-01-14] MEDS: INSULIN SLIDING SCALE (NOVOLOG) 1 VIAL SQ SCH ×2 (06:20→12:22)
[2017-01-14] MEDS: HEPARIN NA (PORCINE) 5,000 UNITS/ML 1ML VIAL SQ SCH ×2 (06:35→15:34)
[2017-01-14] MEDS: INSULIN DETEMIR 100 UNITS/ML MDV SQ SCH (06:35)
[2017-01-14] MEDS: amLODIPine BESYLATE 10 MG TABLET (FP) PO SCH (10:56)
[2017-01-14] MEDS: MAGNESIUM OXIDE 400 MG TABLET (FP) PO SCH (10:56)
[2017-01-14] MEDS: predniSONE 5 MG TABLET (UD) PO SCH (10:56)
[2017-01-14] MEDS: LACTOBACILLUS ACIDOPHILUS 1 EACH TAB (FP) PO SCH (10:56)
[2017-01-14] MEDS: DOCUSATE SODIUM 100 MG CAPSULE (FP) PO SCH (10:56)
[2017-01-14] MEDS: CLOPIDOGREL BISULFATE 75 MG TABLET (FP) PO SCH (10:56)
[2017-01-14] MEDS ORDERED: PT OWN MED DRAWER 7, Y5N ONE ×2 (11:00→11:06)
[2017-01-14] MEDS: DULoxetine HCL 20 MG CAPSULE.DR (FP) PO SCH (11:02)
[2017-01-14] MEDS: MYCOPHENOLATE SODIUM 360 MG TABLET.DR PO SCH (11:02)
[2017-01-14] MEDS: TACROLIMUS ANHYDROUS 1 MG CAPSULE (NF) PO SCH (11:03)
[2017-01-14] MEDS: HYDRALAZINE PO SCH (11:03)
--- NOTE | 2017-01-14 14:01 | PN ---
Physical Exam: SUBJECTIVE: Patient seen and examined OBJECTIVE: Vital Signs Period Temp Pulse Resp BP Sys/Mendoza Pulse Ox Last 24 Hr 97.7 F-99.1 F 62-72 18-20 107-155/42-67 GENERAL: The patient is awake, alert, and fully oriented, in no acute distress. HEAD: Normal with no signs of trauma. EYES: PERRL, extraocular movements intact, sclera anicteric, conjunctiva clear. No ptosis. ENT: Ears normal, nares patent, oropharynx clear without exudates, moist mucous membranes. NECK: Trachea midline, full range of motion, supple. LUNGS: Breath sounds equal, clear to auscultation bilaterally, no wheezes, no crackles, no accessory muscle use. HEART: Regular rate and rhythm, S1, S2 without murmur, rub or gallop. ABDOMEN: Soft, nontender, nondistended, normoactive bowel sounds, no guarding, no rebound, no hepatosplenomegaly, no masses. EXTREMITIES: 2+ pulses, warm, well-perfused, no edema. NEUROLOGICAL: Cranial nerves II through XII grossly intact. Normal speech, gait not observed. PSYCH: Normal mood, normal affect. SKIN: Warm, dry, normal turgor, no rashes or lesions noted Laboratory Results - last 24 hr 01/13/17 01/13/17 01/14/17 16:24 21:54 06:08 POC Glucometer 262 229 100 01/14/17 12:19 POC Glucometer 304 Active Medications Generic Name Dose Route Start Last Admin Trade Name Freq PRN Reason Stop Dose Admin Amlodipine Besylate 10 mg 01/12/17 10:00 01/14/17 10:56 Norvasc - PO 10 mg DAILY [facility] Administration Aspirin 81 mg 01/11/17 22:00 01/13/17 21:57 Asa - PO 81 mg HS [facility] Administration Atorvastatin Calcium 10 mg 01/11/17 22:00 01/13/17 21:58 Lipitor - PO 10 mg HS [facility] Administration Carvedilol 12.5 mg 01/14/17 22:00 Coreg - PO BID [facility] Clopidogrel Bisulfate 75 mg 01/12/17 10:00 01/14/17 10:56 Plavix - PO 75 mg DAILY [facility] Administration Docusate Sodium 100 mg 01/11/17 22:00 01/14/17 10:56 Colace - PO 100 mg BID [facility] Administration Duloxetine HCl 20 mg 01/11/17 22:00 01/14/17 11:02 Cymbalta - PO 20 mg BID [facility] Administration Heparin Sodium (Porcine) 5,000 unit 01/11/17 22:00 01/14/17 06:35 Heparin - SQ 5,000 unit TID [facility] Administration Hydralazine HCl 10 mg/ 35 mg 01/12/17 10:00 01/14/17 11:03 Hydralazine HCl 25 mg PO 35 mg DAILY [facility] Administration Insulin Aspart 1 vial 01/12/17 16:30 01/14/17 12:22 Novolog Vial Sliding Scale - SQ 8 units ACHS [facility] Administration Protocol Insulin Detemir 15 units 01/13/17 07:00 01/14/17 06:35 Levemir Vial SQ 15 units AM [facility] Administration Lactobacillus Acidophilus 1 tab 01/12/17 10:00 01/14/17 10:56 Bacid - PO 1 tab DAILY [facility] Administration Magnesium Oxide 400 mg 01/12/17 14:50 01/14/17 10:56 Mag-Ox - PO 400 mg DAILY [facility] Administration Mycophenolate Sodium 360 mg 01/11/17 22:00 01/14/17 11:02 Mycophenolic Acid PO 360 mg BID [facility] Administration Prednisone 5 mg 01/13/17 08:45 01/14/17 10:56 Deltasone - PO 5 mg DAILY [facility] Administration Tacrolimus 1 mg 01/11/17 22:00 01/14/17 11:03 Prograf (Non-Formulary) PO 1 mg BID [facility] Administration Tamsulosin HCl 0.4 mg 01/11/17 22:00 01/13/17 21:58 Flomax - PO 0.4 mg HS [facility] Administration ASSESSMENT/PLAN:
--- NOTE | 2017-01-14 14:06 | DS ---
Physical Exam: SUBJECTIVE: Patient seen and examined. Oriented to person, place, month and year but day or date. does not recall yesterday's events. will require further rehab at [facility]. OBJECTIVE: Vital Signs Period Temp Pulse Resp BP Sys/Mendoza Pulse Ox Last 24 Hr 97.7 F-99.1 F 62-72 18-20 107-155/42-67 PHYSICAL EXAM GENERAL: The patient is awake, alert, and oriented to person and place, not date , in no acute distress. EYES: PERRL, extraocular movements intact, sclera anicteric, conjunctiva clear. ENT: oropharynx clear without exudates, moist mucous membranes. LUNGS: Breath sounds equal, clear to auscultation bilaterally, mild crackle and wheezing in right lower base HEART: Regular rate and rhythm, S1, S2 without murmur, rub or gallop. ABDOMEN: Soft, nontender, nondistended, EXTREMITIES: 2+ pulses, warm, well-perfused, no edema. NEUROLOGICAL: Normal speech, gait not observed. 4/5 strength in shoulder, bicep /triceps/wrist, 3/5 hip/knee/ankle. PSYCH: Normal mood, normal affect. LABS Laboratory Results - last 24 hr 01/13/17 01/13/17 01/14/17 16:24 21:54 06:08 POC Glucometer 262 229 100 01/14/17 12:19 POC Glucometer 304 Microbiology 01/11/17 07:36 Blood - Peripheral Venous Blood Culture - Final Staph Capitis Subsp Ureolyticu Staph Capitis Subsp Capitis 01/11/17 07:36 Blood - Peripheral Venous Blood Culture - Final NO GROWTH AFTER 5 DAYS INCUBATION 01/11/17 09:10 Urine - Urine Clean Catch Urine Culture - Final NO GROWTH OBTAINED HOSPITAL COURSE: Date of Admission:01/11/17 - Date of Discharge: 01/14/17 76 yr old man with HTN, IDDM, s/p renal transplant, CAD s/p stents and CABG, BIBEMS from [facility] due to low BGM found to be hypothermic in ED and admitted for SIRS (tachycardia, white count 22.5, hypothermia 93.8). He improved stacey hugger and D5 NS. Tolerated oral intake, remained afebrile with normal temperature during remaining of admission. Chest xray was negative for infiltrate, urine culture was negative for pathology and organism from from blood culture is likley contaminated. He repeat episodes of hypoglycemia. Patient home medications resumed and he was transferred back to [facility] for further rehabilitation. Follow-up with Dr. Yoder for further evaluation of memory loss and PCP upon discharge home from [facility]. Minutes to complete discharge: 40 Discharge Summary Reason For Visit: HYPOGLYCEMIA,H/O KIDNEY TRANSPLANT Current Active Problems Hypoglycemia (Acute) Immunocompromised patient (Acute) H/O kidney transplant (Chronic) Condition: Improved - Instructions Diet, Activity, Other Instructions: Resume your home medications. You are being transferred to [facility] for further rehabilitation to improve your walking and therapy for your swallowing. Follow-up with your primary care doctor, Dr. Abel and your manager gas Dr. Perez one week after being discharged from [facility]. Follow-up with for further evaluation regarding your memory once discharged from [facility]. Referrals: Nury Eid MD [Primary Care Provider] - Mino Abel MD [Staff Physician] - Panfilo Yoder MD [Staff Physician] - Disposition: LONG-TERM FACILITY - Home Medications Comprehensive Discharge Medication List: Ambulatory Orders Aspirin [ASA -] 81 mg PO HS 10/31/12 Tamsulosin HCl 0.4 mg PO HS 10/31/12 Atorvastatin Calcium [Lipitor] 10 mg PO HS 06/18/13 Tacrolimus [Prograf] 1 mg PO BID 04/08/16 Clopidogrel Bisulfate [Plavix -] 75 mg PO DAILY #30 tablet 04/13/16 Amlodipine Besylate 10 mg PO DAILY 04/28/16 Carvedilol [Coreg -] 25 mg PO BID tablet 05/03/16 Mycophenolate Sodium [Myfortic -] 360 mg PO BID tablet. 09/28/16 Hydralazine HCl [Apresoline -] 35 mg SQ DAILY 01/04/17 Insulin Glargine,Hum.rec.anlog [Lantus (10mL VIAL) -] 15 units SQ DAILY Duloxetine HCl [Cymbalta -] 20 mg PO BID capsule. 01/06/17 Docusate Sodium [Colace -] 100 mg PO BID 01/11/17 Insulin (Levemir) [Levemir Flexpen -] 20 units SQ HS 01/11/17 Lactobacillus Acidophilus [Acidophilus] 1 each PO DAILY 01/11/17 Metformin HCl [Glucophage -] 1,000 mg PO BID@0700,1630 01/11/17 Prednisone [Deltasone -] 5 mg PO DAILY 01/11/17 This patient is new to me today: No Emergency Visit: No Critical Care patient: No - Discharge Referral Referred to [facility] Med P.C.: No
--- NOTE | 2017-01-14 16:56 | PN ---
Teaching Attending Note Name of Resident: Christian Mckeon ATTENDING PHYSICIAN STATEMENT I saw and evaluated the patient. I reviewed the resident's note and discussed the case with the resident. I agree with the resident's findings and plan as documented. SUBJECTIVE:no new complaints , no SOB , no pain , sitting in a chair OBJECTIVE: Vital Signs Temperature 98.5 F 01/14/17 14:47 Pulse Rate 71 01/14/17 14:47 Respiratory Rate 20 01/14/17 14:47 Blood Pressure 155/45 01/14/17 06:00 O2 Sat by Pulse Oximetry (%) 96 01/14/17 09:00 GENERAL: The patient is awake, alert, and oriented to person and place, not date , in no acute distress. EYES: PERRL, extraocular movements intact, sclera anicteric, conjunctiva clear. ENT: oropharynx clear without exudates, moist mucous membranes. LUNGS: Breath sounds equal, clear to auscultation bilaterally, mild crackle and wheezing in right lower base HEART: Regular rate and rhythm, S1, S2 without murmur, rub or gallop. ABDOMEN: Soft, nontender, nondistended, EXTREMITIES: 2+ pulses, warm, well-perfused, no edema. NEUROLOGICAL: Normal speech, gait not observed. 4/5 strength in shoulder, bicep /triceps/wrist, 3/5 hip/knee/ankle. PSYCH: Normal mood, normal affect. CBC, BMP 01/13/17 05:35 01/13/17 05:35 ASSESSMENT AND PLAN: 76 yr old man with WITH HISTORY OF RENAL TRANSPLANT THAT PRESENTED DUE TO SEPSIS AND HYPOGLYCEMIA #Sepsis - resolved , no clear sourse . Off antibiotics. Cultures are contaminant likely . #Episode of hypoglycemia- likely related to sepsis vs insulin induced.Resolved. #HTN - now controlled after reinstatement of home meds - c/w current management #DVT in left leg - s/p IVC filter #S/p Renal transplant - tacrolimus, prednisone, mycophenolate - continue medications for immunosuppression, monitior BMP for acute rise #CAD-stable - ASA - plavix
[2017-01-14 17:52] VITALS: BP 153/56; PULSE 72; TEMP 98.2
[2017-01-14] MEDS ORDERED: CARVEDILOL 12.5 MG TABLET (FP) PO SCH (22:00)
== END 2017-01-14 17:21 | DRG 872 ==
LOC: JER 06:55 → JERBED 10:54 → J4W 13:50 → J8W 01-13 18:03
PROVIDERS: ADMIT Internal Medicine; ATTEND Internal Medicine
DX: A41.9 Sepsis, unspecified organism (principal); Z94.0 Kidney transplant status; E11.649 Type 2 diabetes mellitus with hypoglycemia without coma; Z79.4 Long term (current) use of insulin; I25.10 Atherosclerotic heart disease of native coronary artery without angina pectoris; Z98.61 Coronary angioplasty status; Z95.1 Presence of aortocoronary bypass graft; E78.5 Hyperlipidemia, unspecified; I10 Essential (primary) hypertension; D72.829 Elevated white blood cell count, unspecified; E83.42 Hypomagnesemia
CPT/HCPCS: 36415; 71010-TC; 80048; 80053; 81003; 82009; 82550; 82803; 83605; 83735; 84100; 84484; 85025; 85610; 85730; 86850; 86900; 86901; 87040; 87086; 87186; 93005; 93010; 97116-GP; 97161-GP; 99283-25; J1644

== ENCOUNTER 2017-03-17 13:07 | Emergency (ER) | payer OTHER ==
[2017-03-17 13:22] VITALS: PULSE 62; BMI 166.0
[2017-03-17 14:22] LABS: BASOPHIL 0.6 % (0-2.0); EOSINOPHIL 3.3 % (0-4.5); MCH 28.9 pg (25.7-33.7); MCHC 32.6 g/dl (32.0-35.9); MEAN CELL VOLUME 88.8 fl (80-96); MEAN PLT VOLUME 8.2 fl (7.5-11.1); NEUTROPHILS 73.5 % (42.8-82.8); PLATELET COUNT 225 K/MM3 (134-434); RDW 15.2 % (11.9-15.9); WHITE BLOOD COUNT 10.6 K/mm3 (4.0-10.0)
--- NOTE | 2017-03-17 14:26 | PDOC ---
History of Present Illness <Liyah Cohen - Last Filed: 03/17/17 18:24> - General History Source: Patient Exam Limitations: No Limitations - History of Present Illness Initial Comments: 03/17/17 14:18 77y M hx of dm, s/p kidney transplant 4 yrs ago, cabg, cad, hx of DVT s/p IVC filter placement sent by EMS for evaluation. Per EMS, bystander had called as the pt was lying down on a wall. [facility] pt states he was waiting for 3 hrs for a ride. He denies any complaints. He does not know why he was brought to the ED - deneis any headache, dizziness, n/v, cp, sob, abd pain, extremity pain/seweling , fever/chills, cough, numbness/tingling/weakness, syncope, dysuria, diarrhea, melena, bpr. BGM on scene was 140 per EMS. <Elijah Frias - Last Filed: 03/17/17 18:50> - General Chief Complaint: Weakness Stated Complaint: WEAKNESS/LETHARGY Time Seen by Provider: 03/17/17 13:46 Past History <Liyah Cohen - Last Filed: 03/17/17 18:24> - Past Medical History Anemia: No Asthma: No Cancer: No Cardiac Disorders: Yes CVA: No COPD: No CHF: Yes Dementia: No Diabetes: Yes GI Disorders: No Disorders: No HTN: Yes Hypercholesterolemia: Yes Liver Disease: No Seizures: No Thyroid Disease: No - Surgical History Abdominal Surgery: No Appendectomy: No Cardiac Surgery: Yes (open heart surgery) Cholecystectomy: No Lung Surgery: No Neurologic Surgery: No Orthopedic Surgery: No - Immunization History Immunization Up to Date: Yes - Psycho/Social/Smoking Cessation Hx Anxiety: No Suicidal Ideation: No Smoking Status: No Smoking History: Never smoked Have you smoked in the past 12 months: No Number of Cigarettes Smoked Daily: 0 Information on smoking cessation initiated: No Hx Alcohol Use: No Drug/Substance Use Hx: No Substance Use Type: None Hx Substance Use Treatment: No <Elijah Frias - Last Filed: 03/17/17 18:50> - Past Medical History Allergies/Adverse Reactions: Allergies Allergy/AdvReac Type Severity Reaction Status Date / Time No Known Drug Allergies Allergy Verified 01/11/17 07:40 Home Medications: Ambulatory Orders Aspirin [ASA -] 81 mg PO HS 10/31/12 Tamsulosin HCl 0.4 mg PO HS 10/31/12 Atorvastatin Calcium [Lipitor] 10 mg PO HS 06/18/13 Tacrolimus [Prograf] 1 mg PO BID 04/08/16 Clopidogrel Bisulfate [Plavix -] 75 mg PO DAILY #30 tablet 04/13/16 Amlodipine Besylate 10 mg PO DAILY 04/28/16 Mycophenolate Sodium [Myfortic -] 360 mg PO BID tablet. 09/28/16 Hydralazine HCl [Apresoline -] 35 mg SQ DAILY 01/04/17 Insulin Glargine,Hum.rec.anlog [Lantus (10mL VIAL) -] 15 units SQ DAILY Duloxetine HCl [Cymbalta -] 20 mg PO BID capsule. 01/06/17 Docusate Sodium [Colace -] 100 mg PO BID 01/11/17 Insulin (Levemir) [Levemir Flexpen -] 20 units SQ HS 01/11/17 Lactobacillus Acidophilus [Acidophilus] 1 each PO DAILY 01/11/17 Metformin HCl [Glucophage -] 1,000 mg PO BID@0700,1630 01/11/17 Carvedilol [Coreg -] 12.5 mg PO BID tablet 01/14/17 Insulin (Levemir) [Levemir Vial] 15 units SQ AM ml 01/14/17 Insulin Sliding Scale [Novolog Vial Sliding Scale -] 1 vial SQ ACHS units 01/14 Magnesium Oxide [Mag-Ox -] 400 mg PO DAILY tablet 01/14/17 Prednisone [Deltasone -] 5 mg PO DAILY #0 01/14/17 Review of Systems - Review of Systems Able to Perform ROS?: No Comments:: 03/17/17 14:33 Constitutional - no reported Fever, Chills, weakness, HEENT: no reported vision changes, sore throat Respiratory: no reported cough, sob, hemoptysis Cardiac: no reported chest pain, palpitations, light headedness, leg swelling Abd/GI: no reported abd pain, nausea, vomiting, blood per rectum, melena, diarrhea : no reported dysuria, frequency, discharge Musculskelatal - no reported back pain, joint swelling skin - no reported bruising, erythema, rash neurological: no reported headache, numbness, focal weakness, tingling, ataxia, weakness hematologic: no reported anemia, easy bruising, easy bleeding <Rodriguez,Elijah - Last Filed: 03/17/17 18:50> *Physical Exam - Vital Signs Last Vital Signs Temp Pulse Resp BP Pulse Ox 97.4 F L 62 20 146/87 99 03/17/17 13:18 03/17/17 13:18 03/17/17 13:18 03/17/17 13:18 03/17/17 13:18 <Liyah Cohen - Last Filed: 03/17/17 18:24> - Vital Signs Last Vital Signs Temp Pulse Resp BP Pulse Ox 97.4 F L 62 20 146/87 99 03/17/17 13:18 03/17/17 13:18 03/17/17 13:18 03/17/17 13:18 03/17/17 13:18 - Physical Exam Comments: 03/17/17 14:33 GENERAL: The patient is awake, alert, and fully oriented, Nontoxic - in no acute distress. HEAD: Normocephalic, atraumatic. EYES: extraocular movements intact, sclera anicteric, conjunctiva clear. ENT: Normal voice, Moist mucous membranes. NECK: Normal range of motion, supple LUNGS: Breath sounds equal, clear to auscultation bilaterally. No wheezes, no rhonchi, no rales. HEART: Regular rate and rhythm, normal S1 and S2 without murmur, rub or gallop. ABDOMEN: Soft, nontender, normoactive bowel sounds. No guarding, no rebound. . No CVA tenderness EXTREMITIES: LLE +3 piting edema, RLE +1 edema, neg homans sign NEUROLOGICAL: No facial assymetry, Normal speech, PSYCH: Normal mood, normal affect. SKIN: Warm, Dry, normal turgor, <Rodriguez,Elijah - Last Filed: 03/17/17 18:50> Heart Score/ECG Review - ECG Impressions Comment:: 03/17/17 14:33 Twelve-lead EKG was performed and reviewed by me. There is normal sinus rhythm with a normal rate. Rate of 63 Right bundle-branch block Left anterior fascicular block <Rodriguez,Elijah - Last Filed: 03/17/17 18:50> ED Treatment Course - LABORATORY CBC & Chemistry Diagram: 03/17/17 14:00 03/17/17 14:00 - ADDITIONAL ORDERS Additional order review: Laboratory Results 03/17/17 03/17/17 14:00 14:00 INR 1.03 Sodium 138 Potassium 5.7 H D Chloride 104 Carbon Dioxide 25 Anion Gap 9 BUN 25 H Creatinine 1.3 D Creat Clearance w eGFR 53.82 Random Glucose 179 H D Calcium 8.6 Magnesium 1.4 L Total Bilirubin 0.3 D AST 20 D ALT 27 D Alkaline Phosphatase 79 D Creatine Kinase 71 Troponin I < 0.02 Total Protein 6.5 D Albumin 3.4 D Lipase 164 03/17/17 14:00 RBC 4.08 MCV 88.8 MCHC 32.6 RDW 15.2 MPV 8.2 Neutrophils % 73.5 Lymphocytes % 14.8 D Monocytes % 7.8 Eosinophils % 3.3 Basophils % 0.6 - RADIOLOGY Radiograph Interpretation: 03/17/17 16:51 RAD/CHEST X-RAY PORTABLE* Evaluate for pneumonia. Single portable chest x-ray. Shallow inspiration. Status post cardiothoracic surgery. Cardiomegaly. Elevated right diaphragm. No airspace opacities are seen in the right lung. Clear left upper lung zone. Unable to evaluate the lung parenchyma in the left retrocardiac region. Recommend repeat study with improved inspiration. Impression. Cardiomegaly. No airspace opacities seen in the right lung, left upper lung zone. Left lower lung zone obscured by the cardiac silhouette. No pneumothorax is seen. No evidence of vascular congestion. Reported By: Surya Avila MD 03/17/[address]/HEAD CT WITHOUT CONTRAST Findings. Serial axial images of the brain were obtained from foramen magnum to the cranial vertex without intravenous contrast. The study was supplemented with computer-generated coronal and sagittal reconstruction images. Comparison study CT brain noncontrast study January 03, 2017. The head was tilted using the acquisition of images. There is no evidence of acute subarachnoid hemorrhage, acute intra-axial or extra-axial fluid collection consistent with subdural or epidural hematoma. No mass effect, midline shift, acute territorial ischemic changes, herniation or edema is present. Normal agosto matter white matter differentiation. The CSF spaces unchanged from prior study. Cerebral atrophy with supratentorial chronic white matter microangiopathic ischemic changes is noted. Chronic lacunar infarcts are noted in left basal ganglia, left thalamus. Intracranial vascular calcifications are noted. Examination of the bone windows show no fracture. The visualized paranasal sinuses and mastoid air cells are clear. Symmetrical ocular globes. Unremarkable retro-orbital soft tissues. Density calcified falx cerebri. Impression. No evidence of acute intracranial hemorrhage, edema, midline shift, mass effect , or skull fracture. No CT evidence of acute territorial infarction. Cerebral atrophy with supratentorial chronic white matter microangiopathic ischemic changes, gliosis. Chronic left basal ganglia, left thalamus lacunar infarcts. Reported By: Surya Avila MD 03/17/17 1551 <Liyah Cohen - Last Filed: 03/17/17 18:24> - LABORATORY CBC & Chemistry Diagram: 03/17/17 14:00 03/17/17 14:00 - RADIOLOGY Radiology Studies Ordered: Category Date Time Status CHEST X-RAY PORTABLE* [RAD] Stat Radiology 03/17/17 14:01 Ordered <Elijah Frias - Last Filed: 03/17/17 18:50> Medical Decision Making - Medical Decision Making 03/17/17 17:[address] Abel at 1710, awaiting call back. Paged Dr. Abel for a second time at 17:44, awaiting call back. 03/17/17 18:25 Dr. Abel called back at 18:20, the patients case was discussed. <Liyah Cohen - Last Filed: 03/17/17 18:24> - Medical Decision Making 03/17/17 17:11 77y M presnts with possible syncope vs. just laying down unclear history, pt pt statse he feels fine - states he was waiting for a ride for 3 hrs and was sitting down/laying down on a ledge per EMS, he was found lying down. pt with history of dementia and history is not reliable per daugther, but pts history seems consistent with what was told to triage nurse by EMS. pts labs noted for mild hyerkalemia - will give some kayexalate 03/17/17 18:22 pt feels improved will d/c the pt with dr. abel discussed with dr. abel - agrees with management states would prefer to keep pt but pt erfused to stay, states he feels ok. will give pt some kayexxlate and will have dr. abel recheck his lytes/labs I discussed the physical exam findings, ancillary test results and final diagnoses with the patient. I answered all of the patient's questions. The patient was satisfied with the care received and felt comfortable with the discharge plan and treatment plan. The patient will call their primary care physician within 24 hours to arrange follow-up and will return to the Emergency Department with any new, persistent or worsening symptoms. <Elijah Frias - Last Filed: 03/17/17 18:50> *DC/Admit/Observation/Transfer <Liyah Cohen - Last Filed: 03/17/17 18:24> - Discharge Dispostion Admit: No <Elijah Frias - Last Filed: 03/17/17 18:50> Diagnosis at time of Disposition: Hyperkalemia, Hypomagnesemia - Discharge Dispostion Disposition: HOME Condition at time of disposition: Improved - Referrals Referrals: Mino Abel MD [Staff Physician] - - Patient Instructions Additional Instructions: Return to the emergency department immediately with ANY new, persistent or worsening symptoms. Your potassium was slightly high in your magnesium was slightly low they have been repleted please follow-up with Dr. Campbell to have this rechecked next week. You MUST call and follow up with your doctor tomorrow for further evaluation of your symptoms. Results were discussed with you. Please make sure your doctor reviews the results of your emergency evaluation. Print Language: TELUGU
[2017-03-17 14:43] LABS: ALBUMIN 3.4 g/dl (3.4-5.0); ANION GAP 9 (8-16); BILIRUBIN,TOTAL 0.3 mg/dL (0.2-1.0); CALCIUM 8.6 mg/dL (8.5-10.1); CO2 25 mmol/L (21-32); COCKROFT - GAULT 333.89; CREATININE 1.3 mg/dL (0.7-1.3); GLUCOSE,RANDOM 179 mg/dL (74-106); MAGNESIUM 1.4 mg/dL (1.8-2.4); SGOT/AST 20 U/L (15-37); SGPT/ALT 27 U/L (12-78); TOT PROT 6.5 g/dl (6.4-8.2)
[2017-03-17 14:46] LABS: ALK PHOS 79 U/L (45-117); TROPONIN I < 0.02 ng/ml (0.00-0.05)
[2017-03-17 14:48] LABS: INR 1.03 (0.82-1.09); PROTHROMBIN TIME (PATIENT) 11.3 SEC (9.98-11.88)
[2017-03-17 17:47] VITALS: BP 151/80; TEMP 97.5
[2017-03-17] MEDS ORDERED: SODIUM POLYSTYRENE SULFONATE 15 GM/60 ML BOTTLE PO ONE (18:12)
[2017-03-17] MEDS ORDERED: MAGNESIUM SULF 50% (8.12 MEQ/2 ML-1 GM VIAL) IVPB ONE (18:34)
[2017-03-17] MEDS ORDERED: MAGNESIUM SULF 50% (8.12 MEQ/2 ML-1 GM VIAL) ONE (19:13)
[2017-03-17] MEDS ORDERED: SODIUM POLYSTYRENE SULFONATE 15 GM/60 ML BOTTLE ONE (20:36)
--- NOTE | 2017-03-18 11:32 | EKG ---
Test Reason : Blood Pressure : / mmHG Vent. Rate : 063 BPM Atrial Rate : 063 BPM P-R Int : 172 ms QRS Dur : 144 ms QT Int : 446 ms P-R-T Axes : 026 -50 032 degrees QTc Int : 456 ms POOR DATA QUALITY, INTERPRETATION MAY BE ADVERSELY AFFECTED NORMAL SINUS RHYTHM RIGHT BUNDLE BRANCH BLOCK LEFT ANTERIOR FASCICULAR BLOCK BIFASCICULAR BLOCK MINIMAL VOLTAGE CRITERIA FOR LVH, MAY BE NORMAL VARIANT ABNORMAL ECG Confirmed by EDGAR DE LA TORRE MD ([id number]) on 03/18/2017 11:32:02 AM Referred By: Confirmed By:EDGAR DE LA TORRE MD
== END 2017-03-17 20:44 | disposition home or self-care (01) ==
LOC: JER 13:07
PROC: 3E033GC Introduction of Other Therapeutic Substance into Peripheral Vein, Percutaneous Approach (ICD-10-PCS; principal; 2017-03-17)
DX: E83.42 Hypomagnesemia (principal); I25.10 Atherosclerotic heart disease of native coronary artery without angina pectoris; I13.10 Hypertensive heart and chronic kidney disease without heart failure, with stage 1 through stage 4 chronic kidney disease, or unspecified chronic kidney disease; N18.9 Chronic kidney disease, unspecified; Z94.0 Kidney transplant status; Z95.1 Presence of aortocoronary bypass graft; Z86.718 Personal history of other venous thrombosis and embolism; Z79.01 Long term (current) use of anticoagulants; E11.9 Type 2 diabetes mellitus without complications; Z79.4 Long term (current) use of insulin; F03.90 Unspecified dementia, unspecified severity, without behavioral disturbance, psychotic disturbance, mood disturbance, and anxiety
CPT/HCPCS: 36415; 70450-TC; 71010-TC; 80053; 82550; 83690; 83735; 84484; 85025; 85610; 93005; 93010; 99282-25

== ENCOUNTER 2017-05-12 17:21 | Emergency (ER) | payer OTHER ==
[2017-05-12 17:37] VITALS: BP 163/89; PULSE 71; TEMP 97.6; BMI 25.0
--- NOTE | 2017-05-12 18:03 | PDOC ---
History of Present Illness - General History Source: Patient Exam Limitations: No Limitations - History of Present Illness Initial Comments: 05/12/17 17:55 This is a 77 yo M with HTN, IDDM, hx of CO s/p stents (plavix, asa), CABG, HLD, IVC filter, DVT in left leg, who is brought due to witnessed mechanical fall. He states that he was walking on the street when he tripped and fell on his buttocks. He was able to get up after. He denies dizziness, palpitations, flushing or loc. He denies Hitting his head or other parts of his body. He denies pain. He has not been having chest pain, sob, orthopnea, edema, n/v, abd pain, diarrhea, constipation, dysuria. He denies h/a, weakness, numbness or paresthesia 05/12/17 18:05 05/12/17 18:07 <Leena Khan - Last Filed: 05/12/17 18:48> <Elijah Frias - Last Filed: 05/12/17 22:54> - General Chief Complaint: Injury Stated Complaint: FALL Past History - Past Medical History Anemia: No Asthma: No Cancer: No Cardiac Disorders: Yes CVA: No COPD: No CHF: Yes Dementia: No Diabetes: Yes GI Disorders: No Disorders: No HTN: Yes Hypercholesterolemia: Yes Liver Disease: No Seizures: No Thyroid Disease: No - Surgical History Abdominal Surgery: No Appendectomy: No Cardiac Surgery: Yes (open heart surgery) Cholecystectomy: No Lung Surgery: No Neurologic Surgery: No Orthopedic Surgery: No - Immunization History Immunization Up to Date: Yes - Psycho/Social/Smoking Cessation Hx Anxiety: No Suicidal Ideation: No Smoking Status: No Smoking History: Never smoked Have you smoked in the past 12 months: No Number of Cigarettes Smoked Daily: 0 Information on smoking cessation initiated: No Hx Alcohol Use: No Drug/Substance Use Hx: No Substance Use Type: None Hx Substance Use Treatment: No <Leena hKan - Last Filed: 05/12/17 18:48> <Elijah Frias - Last Filed: 05/12/17 22:54> - Past Medical History Allergies/Adverse Reactions: Allergies Allergy/AdvReac Type Severity Reaction Status Date / Time No Known Drug Allergies Allergy Verified 01/11/17 07:40 Home Medications: Ambulatory Orders Aspirin [ASA -] 81 mg PO HS 10/31/12 Tamsulosin HCl 0.4 mg PO HS 10/31/12 Atorvastatin Calcium [Lipitor] 10 mg PO HS 06/18/13 Tacrolimus [Prograf] 1 mg PO BID 04/08/16 Clopidogrel Bisulfate [Plavix -] 75 mg PO DAILY #30 tablet 04/13/16 Amlodipine Besylate 10 mg PO DAILY 04/28/16 Mycophenolate Sodium [Myfortic -] 360 mg PO BID tablet. 09/28/16 Hydralazine HCl [Apresoline -] 35 mg SQ DAILY 01/04/17 Insulin Glargine,Hum.rec.anlog [Lantus (10mL VIAL) -] 15 units SQ DAILY Duloxetine HCl [Cymbalta -] 20 mg PO BID capsule. 01/06/17 Docusate Sodium [Colace -] 100 mg PO BID 01/11/17 Insulin (Levemir) [Levemir Flexpen -] 20 units SQ HS 01/11/17 Lactobacillus Acidophilus [Acidophilus] 1 each PO DAILY 01/11/17 Metformin HCl [Glucophage -] 1,000 mg PO BID@0700,1630 01/11/17 Carvedilol [Coreg -] 12.5 mg PO BID tablet 01/14/17 Insulin (Levemir) [Levemir Vial] 15 units SQ AM ml 01/14/17 Insulin Sliding Scale [Novolog Vial Sliding Scale -] 1 vial SQ ACHS units 01/14 Magnesium Oxide [Mag-Ox -] 400 mg PO DAILY tablet 01/14/17 Prednisone [Deltasone -] 5 mg PO DAILY #0 01/14/17 Review of Systems - Review of Systems Able to Perform ROS?: Yes Is the patient limited Citizen Of [place] proficient: No Constitutional: No: Chills, Fever HEENTM: No: Blurred Vision, Difficulty Swallowing Respiratory: No: Cough, Orthopnea, Shortness of Breath, Hemoptysis Cardiac (ROS): No: Chest Pain, Edema, Lightheadedness, Palpitations, Syncope ABD/GI: No: Abdominal Distended, Constipated, Diarrhea, Nausea, Vomiting, Abdominal cramping : No: Dysuria, Flank Pain Musculoskeletal: No: Back Pain, Joint Pain, Muscle Pain, Muscle Weakness, Neck Pain Neurological: No: Headache, Numbness, Paresthesia, Weakness, Unsteady Gait, Ataxia, Dizziness Endocrine: No: Change in Weight All Other Systems: Reviewed and Negative <Leena Khan - Last Filed: 05/12/17 18:48> *Physical Exam - Vital Signs Last Vital Signs Temp Pulse Resp BP Pulse Ox 97.6 F 71 20 163/89 99 05/12/17 17:36 05/12/17 17:36 05/12/17 17:36 05/12/17 17:36 05/12/17 17:36 05/12/17 18:07 - Physical Exam Comments: 05/12/17 18:07 General: AAO x3, NAH HEENT: atraumatic, normocephalic, no neck tenderness, no head tenderness PRRLA, R pupil slightly smaller than L, EOMI CV: RRR S1 S2 Pult: CTA b/l GI: soft, nontender, nondistended, normoactive bowel sounds, no mass musculoskeletal: no spinal tenderness, no sacral tenderness, no bruising in buttocks. No knee or elbow tenderness. R 1st digit small ulcer, wrapped in bandage Neuro: strength 5/5 b/l, sensation intact, CN II-XII intact 05/12/17 18:12 <Leena Khan - Last Filed: 05/12/17 18:48> - Vital Signs Last Vital Signs Temp Pulse Resp BP Pulse Ox 97.6 F 71 20 163/89 99 05/12/17 17:36 05/12/17 17:36 05/12/17 17:36 05/12/17 17:36 05/12/17 17:36 <Elijah Frias - Last Filed: 05/12/17 22:54> ED Treatment Course - RADIOLOGY Radiology Studies Ordered: Category Date Time Status HEAD CT WITHOUT CONTRAST [CT] Stat CT Scan 05/12/17 18:24 Completed <Elijah Frias - Last Filed: 05/12/17 22:54> Medical Decision Making - Medical Decision Making 05/12/17 18:15 Patient presents s/p mechanical fall w/o head trauma, fell on buttocks, denies pain Patient had mild dementia Will x ray pelvis and sacrum will CT head just in case his story is not exact 05/12/17 18:24 05/12/17 18:48 imaging p/d <Leena Khan - Last Filed: 05/12/17 18:48> *DC/Admit/Observation/Transfer <Leena Khan - Last Filed: 05/12/17 18:48> - Discharge Dispostion Admit: No <Elijah Frias - Last Filed: 05/12/17 22:54> Diagnosis at time of Disposition: Fall Qualifiers: Encounter type: initial encounter Qualified Code(s): W19.XXXA - Unspecified fall, initial encounter - Discharge Dispostion Disposition: HOME Condition at time of disposition: Improved - Referrals Referrals: Lissy Humphrey MD [Staff Physician] - - Patient Instructions Printed Discharge Instructions: How to Prevent Falls Additional Instructions: Return to the emergency department immediately with ANY new, persistent or worsening symptoms. You MUST call and follow up with your doctor tomorrow for further evaluation of your symptoms. Results were discussed with you. Please make sure your doctor reviews the results of your emergency evaluation. If you had any xrays during your visit, it was read preliminarily by myself, a Radiologist will review it and if there are any additional findings we will call you. Print Language: SLOVENIAN
--- NOTE | 2017-05-12 19:28 | PDOC ---
Attending Attestation - Resident Resident Name: ErinMacielLeena - ED Attending Attestation I have performed the following: I have examined & evaluated the patient, The case was reviewed & discussed with the resident, I agree w/resident's findings & plan - HPI HPI: 05/12/17 19:28 77y M hx of dm, kidney transplant, cabg, cad, hx of dvt s/p ivcuplacement presents s/p fall. pt states he was in the street when he fell and landed on his buttock. pt denies any complaints, pain, headache, loc, neck pain, back pain , cp, dizziness, n/v, vision changes. pts exam is unremarkable without any focal bony tenderness, bruising, erythema, there are some heeled abrasions on his knee. 05/12/17 22:45 ct and xrays negative pt ambulating without complaints in ED will dc the pt with pmd fu return precautions were discussed I discussed the physical exam findings, ancillary test results and final diagnoses with the patient. I answered all of the patient's questions. The patient was satisfied with the care received and felt comfortable with the discharge plan and treatment plan. The patient will call their primary care physician within 24 hours to arrange follow-up and will return to the Emergency Department with any new, persistent or worsening symptoms. - Physicial Exam PE: 05/16/17 07:41 seeabove - Medical Decision Making 05/16/17 07:41 see above
== END 2017-05-12 23:19 | disposition home or self-care (01) ==
LOC: JER 17:21
DX: Z04.3 Encounter for examination and observation following other accident (principal); W18.39XA Other fall on same level, initial encounter; Y93.89 Activity, other specified; Y92.410 Unspecified street and highway as the place of occurrence of the external cause; I10 Essential (primary) hypertension; E11.9 Type 2 diabetes mellitus without complications; Z95.5 Presence of coronary angioplasty implant and graft; I25.2 Old myocardial infarction; E78.5 Hyperlipidemia, unspecified; Z95.1 Presence of aortocoronary bypass graft; Z86.718 Personal history of other venous thrombosis and embolism; Z79.01 Long term (current) use of anticoagulants; I50.9 Heart failure, unspecified
CPT/HCPCS: 70450-TC; 72170-TC; 72220-TC; 99281-25

== ENCOUNTER 2017-05-30 15:12 | Emergency (ER) | payer OTHER ==
[2017-05-30 15:31] VITALS: BP 141/55; PULSE 73; TEMP 98.3; BMI 26.6
--- NOTE | 2017-05-30 15:59 | PDOC ---
History of Present Illness - History of Present Illness Initial Comments: 05/30/17 15:57 Patient 77-year-old male with past medical history of osteomyelitis of his right thumb recently discharged from his facility on 05/20/17, PICC line in place , history of kidney transplant who presents emergency department today with a complaint of an occluded PICC line. He presents from a short-term nursing facility. He states that today at the skilled nursing they had trouble drawing blood off of his PICC line and they were not able to flush it. He was sent to the emergency department today to have his PICC line changed. Denies fevers, chills, chest pain, shortness of breath, nausea, vomiting, diarrhea. <Anali Carter - Last Filed: 05/31/17 08:45> <Suzette Persaud - Last Filed: 05/31/17 10:04> - General Chief Complaint: PICC Line Insertion Stated Complaint: PICC LINE REPLACEMENT Time Seen by Provider: 05/30/17 15:54 Past History - Travel Traveled outside of the country in the last 30 days: No Close contact w/someone who was outside of country & ill: No - Past Medical History Anemia: No Asthma: No Cancer: No Cardiac Disorders: Yes CVA: No COPD: No CHF: Yes Dementia: No Diabetes: Yes (iddm) Dialysis: Yes GI Disorders: No Disorders: No HTN: Yes Hypercholesterolemia: Yes Liver Disease: No Seizures: No Thyroid Disease: No - Surgical History Abdominal Surgery: No Appendectomy: No Cardiac Surgery: Yes (open heart surgery) Cholecystectomy: No Lung Surgery: No Neurologic Surgery: No Orthopedic Surgery: No - Immunization History Immunization Up to Date: Yes - Psycho/Social/Smoking Cessation Hx Anxiety: No Suicidal Ideation: No Smoking Status: No Smoking History: Never smoked Have you smoked in the past 12 months: No Number of Cigarettes Smoked Daily: 0 Hx Alcohol Use: No Drug/Substance Use Hx: No Substance Use Type: None Hx Substance Use Treatment: No <Anali Carter - Last Filed: 05/31/17 08:45> <Suzette Persaud - Last Filed: 05/31/17 10:04> - Past Medical History Allergies/Adverse Reactions: Allergies Allergy/AdvReac Type Severity Reaction Status Date / Time No Known Drug Allergies Allergy Verified 05/30/17 15:31 Home Medications: Ambulatory Orders Amlodipine Besylate [Norvasc -] 10 mg PO DAILY 05/17/17 Aspirin [Jena Chewable Aspirin] 81 mg PO HS 05/17/17 Atorvastatin Ca [Lipitor] 10 mg PO HS 05/17/17 Carvedilol [Coreg -] 25 mg PO BID 05/17/17 Docusate Sodium [Colace -] 100 mg PO DAILY 05/17/17 Duloxetine HCl [Cymbalta] 20 mg PO BID 05/17/17 Hydralazine HCl [Apresoline -] 25 mg PO BID 05/17/17 Mycophenolate Sodium [Myfortic] 360 mg PO BID 05/17/17 Prednisone [Deltasone -] 5 mg PO DAILY 05/17/17 Tacrolimus Anhydrous [Prograf (Non-Formulary)] 1 mg PO BID 05/17/17 Tamsulosin HCl [Flomax] 0.4 mg PO HS 05/17/17 Ertapenem Sodium [Invanz -] 1 gm IVPB DAILY vial 05/20/17 Insulin (Novolog) [Novolog -] 15 units SQ 0700 units 05/20/17 Insulin Sliding Scale [Novolog Vial Sliding Scale -] 0 vial SQ ACHS units 05/20 Vancomycin 1 Gram (Pre-Docked) [Vancomycin (Pre-Docked)] 1,000 mg IVPB DAILY bag 05/20/17 Review of Systems - Review of Systems Able to Perform ROS?: Yes Is the patient limited Finnish proficient: No Constitutional: No: Chills, Fever, Malaise, Weakness Respiratory: No: Cough, Shortness of Breath, Wheezing Cardiac (ROS): No: Chest Pain, Lightheadedness, Palpitations ABD/GI: No: Diarrhea, Nausea, Vomiting : No: Burning, Dysuria, Frequency Integumentary: Yes: Change in Hair/Nails (cellulitic changes under the R 1st finger). No: Erythema All Other Systems: Reviewed and Negative <Anali Carter - Last Filed: 05/31/17 08:45> *Physical Exam - Vital Signs Last Vital Signs Temp Pulse Resp BP Pulse Ox 98.3 F 73 16 141/55 95 05/30/17 15:15 05/30/17 15:15 05/30/17 15:15 05/30/17 15:15 05/30/17 15:15 - Physical Exam General Appearance: Yes: Nourished, Appropriately Dressed, Other (Pt. laying in hospital bed, ). No: Apparent Distress Respiratory/Chest: positive: Lungs Clear, Normal Breath Sounds. negative: Respiratory Distress, Accessory Muscle Use Cardiovascular: positive: Regular Rhythm, Regular Rate, S1, S2 (present), Murmur (r 2nd -3rd intercostal space 2/6 holosystolic murmur greatest at the base) Gastrointestinal/Abdominal: positive: Normal Bowel Sounds, Flat. negative: Tender, Soft Extremity: positive: Normal Capillary Refill, Normal Inspection, Normal Range of Motion, Other (see skin exam) Integumentary: positive: Dry, Warm, Other (3cm round escar formation over the R palmar thumb. No pain in finger on palpation. ) Neurologic: positive: cryptologic linguist II-XII NML intact, Fully Oriented, Alert, Normal Mood/ Affect, Normal Response, Motor Strength 5/5 <Anali Carter - Last Filed: 05/31/17 08:45> - Vital Signs Last Vital Signs Temp Pulse Resp BP Pulse Ox 98.3 F 73 16 141/55 95 05/30/17 15:15 05/30/17 15:15 05/30/17 15:15 05/30/17 15:15 05/30/17 15:15 <Suzette Persaud - Last Filed: 05/31/17 10:04> Medical Decision Making - Medical Decision Making 05/30/17 15:57 Patient is a 77-year-old male with past medical history of recent osteomyelitis with discharge from the hospital of 6:30. Patient presents today for an occluded PICC line in his left arm. Attempted to flush PICC line with heparin with no success. Changed hub and re-tried flushing. Line would not flush or draw blood. He has no other complaints at this time and his exam is benign. We' ll call IR to see if his PICC line can be replaced today. 05/30/17 16:[address] Braswell. He states there are no openings today to change this patient's PICC line. However if he comes back tomorrow there will be time to change the line. Patient received all medications he needed to through the PICC line earlier today per [facility]. This includes his vancomycin and ertapenem. Will discharge patient home at this time with strict instructions to return to the emergency department tomorrow morning for line change. 05/30/17 16:49 Spoke with patient's skilled nursing will accept him back at this time. Patient has a IV in his left lower arm for access. Patient can wait on his medications until after his PICC line is change tomorrow. <Anali Carter - Last Filed: 05/31/17 08:45> *DC/Admit/Observation/Transfer - Discharge Dispostion Admit: No <Anali Carter - Last Filed: 05/31/17 08:45> - Attestations Physician Attestion: I reviewed the case with the mid-level practitioner and agree with the mid- level practitioner's assessment, diagnosis and disposition. <Suzette Persaud - Last Filed: 05/31/17 10:04> Diagnosis at time of Disposition: Occluded PICC line Qualifiers: Encounter type: initial encounter Qualified Code(s): T82.898A - Other specified complication of vascular prosthetic devices, implants and grafts, initial encounter Osteomyelitis Qualifiers: Osteomyelitis type: subacute Osteomyelitis location: hand Laterality: right Qualified Code(s): M86.241 - Subacute osteomyelitis, right hand - Discharge Dispostion Disposition: [facility] Condition at time of disposition: Stable - Referrals Referrals: Jerrica Mcfarland RN [Primary Care Provider] - - Patient Instructions Printed Discharge Instructions: Peripherally Inserted Central Catheter Additional Instructions: Your PICC Line is occluded. It was not able to be flushed with heparin. We were not able to change it in the ED today as there was no availability with interventional radiology. You have a peripheral venous line that may be used tonight. YOU MUST RETURN TOMORROW TO HAVE THE PICC LINE CHANGED. Come to the ED for 8am. Return to the ED if you have any fevers, chills, pain in the arm, shortness of breath, or any other changes in your symptoms.
[2017-05-30] MEDS ORDERED: PICC LINE 8 ML FLUSH PROTOCOL IVPUSH PRN (16:36)
== END 2017-05-30 18:42 ==
LOC: SUPCPDRO 15:12 → JER 15:12
DX: T82.594A Other mechanical complication of infusion catheter, initial encounter (principal); Y82.8 Other medical devices associated with adverse incidents; Y92.128 Other place in nursing home as the place of occurrence of the external cause; M86.241 Subacute osteomyelitis, right hand; I25.10 Atherosclerotic heart disease of native coronary artery without angina pectoris; I13.11 Hypertensive heart and chronic kidney disease without heart failure, with stage 5 chronic kidney disease, or end stage renal disease; N18.6 End stage renal disease; Z99.2 Dependence on renal dialysis; Z95.1 Presence of aortocoronary bypass graft
CPT/HCPCS: 99282-25

== ENCOUNTER → 2017-05-31 | Day surgery (SDC) | payer OTHER ==
[~2017-05-31] MED LIST: PICC LINE 8 ML FLUSH PROTOCOL IVPUSH PRN
== END | disposition home or self-care (01) ==
LOC: JRADIR 08:31
PROVIDERS: ATTEND Nurse Practitioner Family
PROC: 02PY33Z Removal of Infusion Device from Great Vessel, Percutaneous Approach (ICD-10-PCS; principal; 2017-05-31)
PROC: 02HV33Z Insertion of Infusion Device into Superior Vena Cava, Percutaneous Approach (ICD-10-PCS; 2017-05-31)
DX: T82.898A Other specified complication of vascular prosthetic devices, implants and grafts, initial encounter (principal)
CPT/HCPCS: 36569; 36584; 77001-TC; C1751

== ENCOUNTER 2017-10-10 16:45 | Inpatient (IN) | payer OTHER ==
--- NOTE | 2017-10-10 16:51 | PDOC ---
Rapid Medical Evaluation Time Seen by Provider: 10/10/17 16:50 Medical Evaluation: Allergies Allergy/AdvReac Type Severity Reaction Status Date / Time No Known Drug Allergies Allergy Verified 05/30/17 15:31 10/10/17 16:50 I have performed a brief in-person evaluation of this patient. The patient presents with a chief complaint of: "pimple to abdomen", kidney transplant Pertinent physical exam findings: draining abscess, cellulitis to abd , no fever , stable I have ordered the following: cbc, cmp, coags, lactic, ua, blood cultures The patient will proceed to the ED for further evaluation. 10/10/17 16:57 Discharge Disposition - Diagnosis Cellulitis and abscess of other specified site - Referrals - Patient Instructions - Post Discharge Activity
[2017-10-10 17:25] LABS: BASOPHIL 0.8 % (0-2.0); EOSINOPHIL 2.4 % (0-4.5); MCH 28.8 pg (25.7-33.7); MCHC 32.6 g/dl (32.0-35.9); MEAN CELL VOLUME 88.3 fl (80-96); MEAN PLT VOLUME 8.3 fl (7.5-11.1); NEUTROPHILS 54.6 % (42.8-82.8); PLATELET COUNT 235 K/MM3 (134-434); WHITE BLOOD COUNT 11.7 K/mm3 (4.0-10.0)
[2017-10-10 17:33] LABS: URINE APPEARANCE CLEAR; URINE BILIRUBIN NEGATIVE (NEGATIVE); URINE BLOOD NEGATIVE (NEGATIVE); URINE COLOR LTYELLOW; URINE GLUCOSE (UA) NEGATIVE (NEGATIVE); URINE KETONE NEGATIVE (NEGATIVE); URINE NITRITE NEGATIVE (NEGATIVE); URINE PROTEIN NEGATIVE (NEGATIVE); URINE UROBILINOGEN NEGATIVE mg/dL (0.2-1.0)
[2017-10-10 17:59] LABS: ALBUMIN 3.7 g/dl (3.4-5.0); ALK PHOS 73 U/L (45-117); ANION GAP 8 (8-16); BILIRUBIN,TOTAL 0.3 mg/dL (0.2-1.0); CALCIUM 8.8 mg/dL (8.5-10.1); CO2 26 mmol/L (21-32); CREATININE 1.3 mg/dL (0.7-1.3); GLUCOSE,RANDOM 164 mg/dL (74-106); SGOT/AST 9 U/L (15-37); SGPT/ALT 22 U/L (12-78); TOT PROT 6.9 g/dl (6.4-8.2)
[2017-10-10 18:56] LABS: INR 0.94 (0.82-1.09); PROTHROMBIN TIME (PATIENT) 10.6 SEC (9.98-11.88)
--- NOTE | 2017-10-10 19:36 | PDOC ---
Attending Attestation - Resident Resident Name: Radames López - ED Attending Attestation I have performed the following: I have examined & evaluated the patient, The case was reviewed & discussed with the resident, I agree w/resident's findings & plan, Exceptions are as noted - HPI HPI: 10/10/17 19:33 /BOIL/CELLULITIS TO ABDOMEN, HX OF KIDNEY TRANSPLANT - Physicial Exam PE: 10/10/17 19:34 VSS/NAD - Medical Decision Making 10/10/17 19:[address] Radames López's Assessment and Plan <Boaz Olvera - Last Filed: 10/10/17 20:50> - Medical Decision Making 10/10/17 19:54 Dr. Mino Abel (patient's PCP) was paged via phone answering service. 10/10/17 20:15 Dr. Mino Abel (patient's PCP) was paged via phone answering service. 10/10/17 20:35 Dr. Mino Abel (patient's PCP) was paged via phone answering service. 10/10/17 20:45 Dr. Mino Abel (patient's PCP) was paged via phone answering service. 10/10/17 20:[address] Abel's cell phone. Patient;s case was discussed 10/10/17 20:[address] Palacios's cell phone service. Dr. Palacios returned the call. States the admission can be given to [facility]. 21:[address] Bar and Dr. Mendez <Alessandra Kenyon - Last Filed: 10/10/17 21:11> Discharge Disposition - Discharge Dispostion Last Admission D/C Date: 05/20/17 Admit: Yes <Boaz Olvera - Last Filed: 10/10/17 20:50> <Alessandra Kenyon - Last Filed: 10/10/17 21:11> - Diagnosis Cellulitis and abscess of other specified site - Discharge Dispostion Condition at time of disposition: Improved - Referrals Referrals: Mino Abel MD [Primary Care Provider] - - Patient Instructions - Post Discharge Activity
--- NOTE | 2017-10-10 19:45 | PDOC ---
History of Present Illness - General Chief Complaint: Abscess Boil Stated Complaint: PCP SENT/PAIN, ACUTE Time Seen by Provider: 10/10/17 16:50 - History of Present Illness Initial Comments: 10/10/17 19:42 77 yo M with h/o HTN, NIDDM, Right kidney transplant who arrives with abdominal abscess. Patient reports worsening, unremitting, and sharp/painful, abscess formation of 1 week duration. Abscess initially draining,but has stopped. Denies attempts at I&D of abscess, but daughter at bedside reports application H2O2 and Bacitracin appointment. Denies N/V, fevers/chills, constipation/ diarrhea, internal abdominal pain, chest pain, SOB, lightheadedness. No h/o abscess formation. PCP. Dr. Palacios. NKDA Past History - Past Medical History Allergies/Adverse Reactions: Allergies Allergy/AdvReac Type Severity Reaction Status Date / Time No Known Drug Allergies Allergy Verified 10/10/17 16:57 Home Medications: Ambulatory Orders Amlodipine Besylate [Norvasc -] 10 mg PO DAILY 05/17/17 Aspirin [Jena Chewable Aspirin] 81 mg PO HS 05/17/17 Atorvastatin Ca [Lipitor] 10 mg PO HS 05/17/17 Carvedilol [Coreg -] 25 mg PO BID 05/17/17 Docusate Sodium [Colace -] 100 mg PO DAILY 05/17/17 Duloxetine HCl [Cymbalta] 20 mg PO BID 05/17/17 Hydralazine HCl [Apresoline -] 25 mg PO BID 05/17/17 Mycophenolate Sodium [Myfortic] 360 mg PO BID 05/17/17 Prednisone [Deltasone -] 5 mg PO DAILY 05/17/17 Tacrolimus Anhydrous [Prograf] 1 mg PO BID 05/17/17 Tamsulosin HCl [Flomax] 0.4 mg PO HS 05/17/17 Insulin (Novolog) [Novolog -] 15 units SQ 0700 units 05/20/17 Insulin Sliding Scale [Novolog Vial Sliding Scale -] 0 vial SQ ACHS units 05/20 Anemia: No Asthma: No Cancer: No Cardiac Disorders: Yes CVA: No COPD: No CHF: Yes Dementia: No Diabetes: Yes (iddm) Dialysis: Yes (stopped 2008) GI Disorders: No Disorders: No HTN: Yes Hypercholesterolemia: Yes Liver Disease: No Seizures: No Thyroid Disease: No Other medical history: kidney transplant - Surgical History Abdominal Surgery: No Appendectomy: No Cardiac Surgery: Yes (open heart surgery) Cholecystectomy: No Lung Surgery: No Neurologic Surgery: No Orthopedic Surgery: No - Immunization History Immunization Up to Date: Yes - Suicide/Smoking/Psychosocial Hx Smoking Status: No Smoking History: Never smoked Have you smoked in the past 12 months: No Number of Cigarettes Smoked Daily: 0 Hx Alcohol Use: No Drug/Substance Use Hx: No Substance Use Type: None Hx Substance Use Treatment: No Review of Systems - Review of Systems Comments:: 10/10/17 19:59 GENERAL/CONSTITUTIONAL: No fever or chills. No weakness. HEAD, EYES, EARS, NOSE AND THROAT: No change in vision. No ear pain or discharge. No sore throat.- CARDIOVASCULAR: No chest pain or shortness of breath RESPIRATORY: No cough, wheezing, or hemoptysis. GASTROINTESTINAL: No nausea, vomiting, diarrhea or constipation. GENITOURINARY: No dysuria, frequency, or change in urination. MUSCULOSKELETAL: No joint or muscle swelling or pain. No neck or back pain. SKIN:+ Superficial abdominal abscess. NEUROLOGIC: No headache, vertigo, loss of consciousness, or change in strength/ sensation. ENDOCRINE: No increased thirst. No abnormal weight change HEMATOLOGIC/LYMPHATIC: No anemia, easy bleeding, or history of blood clots. ALLERGIC/IMMUNOLOGIC: No hives or skin allergy. *Physical Exam - Vital Signs Last Vital Signs Temp Pulse Resp BP Pulse Ox 97.6 F 62 16 138/41 95 10/10/17 19:28 10/10/17 19:28 10/10/17 19:28 10/10/17 19:28 10/10/17 19:28 - Physical Exam Comments: 10/10/17 19:59 GENERAL: Awake, alert, and fully oriented, in no acute distress HEAD: No signs of trauma, normocephalic, atraumatic EYES: PERRLA, EOMI, sclera anicteric, conjunctiva clear ENT: Hearing grossly normal, nares patent, oropharynx clear without exudates. Moist mucosa NECK: Normal ROM,no JVD, or masses LUNGS: No distress, speaks full sentences, clear to auscultation bilaterally HEART: Regular rate and rhythm, normal S1 and S2, no murmurs, rubs or gallops, peripheral pulses normal and equal bilaterally. ABDOMEN: Soft, nontender, normoactive bowel sounds. No guarding, no rebound. No masses EXTREMITIES : Normal inspection, Normal range of motion, no edema. No clubbing or cyanosis. SKIN: + 2 x 3 cm indurated abscess/ non draining with central punctum granulation tissue. 6 cm of underlying cellulitis, skin warm and etyhematous. is present. Dry, normal turgor, no rashes or lesions noted. ED Treatment Course - LABORATORY CBC & Chemistry Diagram: 10/10/17 17:00 10/10/17 17:00 - ADDITIONAL ORDERS Additional order review: Laboratory Results 10/10/17 10/10/17 10/10/17 17:00 17:00 17:00 PT with INR 10.60 INR 0.94 PTT (Actin FS) 28.0 Sodium 139 Potassium 4.6 Chloride 105 Carbon Dioxide 26 Anion Gap 8 BUN 44 H D Creatinine 1.3 D Creat Clearance w eGFR 53.82 Random Glucose 164 H Lactic Acid 1.3 Calcium 8.8 Total Bilirubin 0.3 AST 9 L D ALT 22 D Alkaline Phosphatase 73 D Total Protein 6.9 Albumin 3.7 Urine Color Urine Appearance Urine pH Ur Specific Bovey Urine Protein Urine Glucose (UA) Urine Ketones Urine Blood Urine Nitrite Urine Bilirubin Urine Urobilinogen 10/10/17 16:57 PT with INR INR PTT (Actin FS) Sodium Potassium Chloride Carbon Dioxide Anion Gap BUN Creatinine Creat Clearance w eGFR Random Glucose Lactic Acid Calcium Total Bilirubin AST ALT Alkaline Phosphatase Total Protein Albumin Urine Color Ltyellow Urine Appearance Clear Urine pH 5.0 Ur Specific Bovey 1.012 Urine Protein Negative Urine Glucose (UA) Negative Urine Ketones Negative Urine Blood Negative Urine Nitrite Negative Urine Bilirubin Negative Urine Urobilinogen Negative 10/10/17 17:00 RBC 4.50 MCV 88.3 MCHC 32.6 RDW 15.0 MPV 8.3 Neutrophils % 54.6 Lymphocytes % 34.6 Monocytes % 7.6 Eosinophils % 2.4 Basophils % 0.8 Medical Decision Making - Medical Decision Making 10/10/17 20:10 77 yo M with h/o HTN, NIDDM, Right kidney transplant who arrives with 1 week of worsening, unremitting, and sharp/painful, abscess formation of Abscess initially draining ,but has stopped. Denies N/V, fevers/chills, constipation/ diarrhea, internal abdominal pain, chest pain, SOB, lightheadedness. Physical exam reveals 2 x 3 cm indurated abscess/ non draining with central punctum granulation tissue. 6 cm of underlying cellulitis, skin warm and etyhematous. Hemodynamically stable. PCP. Dr. Palacios. NKDA. ED Course: CBC, CMP, UA, EKG, 10/10/17 20:11 WBC: 11.7 CR: 1.3 10/10/17 20:11 UA: Neg Clindamycin 900 mg IVPB 10/10/17 21:03 Patient is family member of Dr. Palacios. Will admit to [facility]. 10/10/17 21:[address] Mendez and will admit to [facility]. 10/10/17 21:36 CT AP ABD/PEL, Vancomycin, and Ertapenem *DC/Admit/Observation/Transfer Diagnosis at time of Disposition: Cellulitis and abscess of other specified site - Discharge Dispostion Condition at time of disposition: Improved - Referrals Referrals: Mino Abel MD [Primary Care Provider] - - Patient Instructions - Post Discharge Activity
[2017-10-10] MEDS ORDERED: CLINDAMYCIN 900 MG PREMIX IVPB 900 MG/50 ML BAG IVPB ONE ×2 (19:57→20:09)
--- NOTE | 2017-10-10 21:24 | PN ---
Teaching Attending Note Name of Resident: Omar Mendez ATTENDING PHYSICIAN STATEMENT I saw and evaluated the patient. I reviewed the resident's note and discussed the case with the resident. I agree with the resident's findings and plan as documented. SUBJECTIVE: 77 yo m with pmhx. of HTN,DM, CAD, MT s/p stents /CABG, HLD, IVC filter, DVT in left leg, and kidney transplant(09) who presents with left lower quadrant abdominal abscess X4 days in duration. Notes no fevers or chills at home. Does note pain when abscess is touched and surrounding abdominal erythema. States his abscess has not been drained. OBJECTIVE: Physical: VS: Vital Signs Period Temp Pulse Resp BP Sys/Mendoza Pulse Ox Last 24 Hr 97.6 F-98 F 62-68 16-18 116-138/41-55 95-99 GEN: NAD, Resting in bed, able to speak full sentences HEENT:NCAT, PERRL, throat without erythema or exudates CARD: RRR S1,S2 RESP: CTAB ABD:BSx4, LLQ 3X4 cm tender nodule, with surrounding erythma and edema, painful to touch EXT:- C/C/E CBCD WBC 11.7 K/mm3 (4.0-10.0) H D 10/10/17 17:00 RBC 4.50 M/mm3 (4.00-5.60) 10/10/17 17:00 Hgb 13.0 GM/dL (11.7-16.9) 10/10/17 17:00 Hct 39.8 % (35.4-49) 10/10/17 17:00 MCV 88.3 fl (80-96) 10/10/17 17:00 MCHC 32.6 g/dl (32.0-35.9) 10/10/17 17:00 RDW 15.0 % (11.9-15.9) 10/10/17 17:00 Plt Count 235 K/MM3 (134-434) 10/10/17 17:00 MPV 8.3 fl (7.5-11.1) 10/10/17 17:00 CMP Sodium 139 mmol/L (136-145) 10/10/17 17:00 Potassium 4.6 mmol/L (3.5-5.1) 10/10/17 17:00 Chloride 105 mmol/L (98-107) 10/10/17 17:00 Carbon Dioxide 26 mmol/L (21-32) 10/10/17 17:00 Anion Gap 8 (8-16) 10/10/17 17:00 BUN 44 mg/dL (7-18) H D 10/10/17 17:00 Creatinine 1.3 mg/dL (0.7-1.3) D 10/10/17 17:00 Creat Clearance w eGFR 53.82 (>60) 10/10/17 17:00 Random Glucose 164 mg/dL (74-106) H 10/10/17 17:00 Calcium 8.8 mg/dL (8.5-10.1) 10/10/17 17:00 Total Bilirubin 0.3 mg/dL (0.2-1.0) 10/10/17 17:00 AST 9 U/L (15-37) L D 10/10/17 17:00 ALT 22 U/L (12-78) D 10/10/17 17:00 Alkaline Phosphatase 73 U/L (45-117) D 10/10/17 17:00 Total Protein 6.9 g/dl (6.4-8.2) 10/10/17 17:00 Albumin 3.7 g/dl (3.4-5.0) 10/10/17 17:00 Prior wound cx on thumb with MRSA and E-coli Home Medications Medication Instructions Recorded Amlodipine Besylate [Norvasc -] 10 mg PO DAILY 05/17/17 Aspirin [Jena Chewable Aspirin] 81 mg PO HS 05/17/17 Atorvastatin Ca [Lipitor] 10 mg PO HS 05/17/17 Carvedilol [Coreg -] 25 mg PO BID 05/17/17 Docusate Sodium [Colace -] 100 mg PO DAILY 05/17/17 Duloxetine HCl [Cymbalta] 20 mg PO BID 05/17/17 Hydralazine HCl [Apresoline -] 25 mg PO BID 05/17/17 Mycophenolate Sodium [Myfortic] 360 mg PO BID 05/17/17 Prednisone [Deltasone -] 5 mg PO DAILY 05/17/17 Tacrolimus Anhydrous [Prograf] 1 mg PO BID 05/17/17 Tamsulosin HCl [Flomax] 0.4 mg PO HS 05/17/17 Insulin (Novolog) [Novolog -] 15 units SQ 0700 units 05/20/17 Insulin Sliding Scale [Novolog 0 vial SQ ACHS units 05/20/17 Vial Sliding Scale -] ASSESSMENT AND PLAN: 77 yo m with pmhx. of HTN,DM, CAD, MT s/p stents /CABG, HLD, IVC filter, DVT in left leg, and kidney transplant() who presents with left lower quadrant abdominal abscess, being admitted for cellulitis and abscess. 1.) Abdominal Wall Cellulitis and Abscess - CT abdomen - Abx. With Vanco/Ertapenum had prior wound with cx's + MRSA/Resistant E-coli - ID consult - Blood Cx. - Sx. Consult for I&D - Type & Screen 2.) Hx. OF Renal Transplant - C/W Prograf/Myfortic - C/W low dose steriod 3.) CAD S/P Stents/CABG - C/W home meds 4.) HTN - C/W Norvasc/coreg/Hydralazine 5.) DM - FS - RAISS 6.) CHUCK - Base Cr 1.1 - Trend CR - Avoid Nephrotoxins 7.) HLD - C/W Statin 8.) DVt Ppx - SCDs Place in Med-Sx
[2017-10-10] MEDS ORDERED: ERTAPENEM SODIUM 1 GM/50 ML PRE-DOCKED IVPB ONE (21:27)
[2017-10-10] MEDS ORDERED: VANCOMYCIN 1 GRAM (PRE-DOCKED) 1,000 MG/250 ML BAG IVPB ONE ×2 (21:28→23:11)
[2017-10-10 22:01] LABS: URINE LEUK ESTERASE Negative (NEGATIVE)
[2017-10-10] MEDS ORDERED: ACETAMINOPHEN 325 MG TABLET (FP) PO PRN (22:13)
--- NOTE | 2017-10-10 23:07 | HP ---
CHIEF COMPLAINT: PCP: N/A HISTORY OF PRESENT ILLNESS: Patient is a 77 yo M with a PMHx of HTN, DM, s/p R. kidney transplant (2008), IVC filter, DVT in left leg, was sent by his PCP because of a painful and worsening abdominal abscess that started last week. He describes the pain as constant and 10/10. Patient denies any kind of discharge. He did not apply any medications to the abscess. He denies trauma and insect bite at the area. He denies chills, fevers, nausea, vomiting, sob, cough, and urinary symptoms. Patient said he was treated for a right thumb osteomyelitis by Dr. James. ER course was notable for: (1) Clindamycin 900mg IV (2) WBC 11.7 (3) Creatinine 1.3 Recent Travel: No PAST MEDICAL HISTORY: HTN, CAD ,DM, HLD, s/p IVC filter, BPH, s/p R. kidney transplant PAST SURGICAL HISTORY: R kidney transplant Social History: Smoking: none Alcohol: none Drugs: none Family History: Allergies No Known Drug Allergies Allergy (Verified 10/10/17 16:57) HOME MEDICATIONS: Home Medications Medication Instructions Recorded Amlodipine Besylate [Norvasc -] 10 mg PO DAILY 05/17/17 Aspirin [Jena Chewable Aspirin] 81 mg PO HS 05/17/17 Atorvastatin Ca [Lipitor] 10 mg PO HS 05/17/17 Carvedilol [Coreg -] 25 mg PO BID 05/17/17 Docusate Sodium [Colace -] 100 mg PO DAILY 05/17/17 Duloxetine HCl [Cymbalta] 20 mg PO BID 05/17/17 Hydralazine HCl [Apresoline -] 25 mg PO BID 05/17/17 Mycophenolate Sodium [Myfortic] 360 mg PO BID 05/17/17 Prednisone [Deltasone -] 5 mg PO DAILY 05/17/17 Tacrolimus Anhydrous [Prograf] 1 mg PO BID 05/17/17 Tamsulosin HCl [Flomax] 0.4 mg PO HS 05/17/17 Insulin (Novolog) [Novolog -] 15 units SQ 0700 units 05/20/17 Insulin Sliding Scale [Novolog 0 vial SQ ACHS units 05/20/17 Vial Sliding Scale -] REVIEW OF SYSTEMS CONSTITUTIONAL: Absent: fever, chills, diaphoresis, generalized weakness, malaise, loss of appetite, weight change HEENT: Absent: rhinorrhea, nasal congestion, visual changes CARDIOVASCULAR: Absent: chest pain, syncope, palpitations,lightheadedness, peripheral edema RESPIRATORY: Absent: cough, shortness of breath, dyspnea with exertion GASTROINTESTINAL: Present: abdominal pain at site of abscess Absent: abdominal distension, nausea, vomiting, diarrhea, constipation, melena GENITOURINARY: Absent: dysuria, frequency, urgency, hesitancy, hematuria, flank pain SKIN: Absent: rash, itching, pallor ENDOCRINE: Absent: unexplained weight gain, unexplained weight loss NEUROLOGIC: Absent: headache, dizziness bladder or bowel incontinence PSYCHIATRIC: Absent: anxiety, depression PHYSICAL EXAMINATION Vital Signs - 24 hr 10/10/17 10/10/17 16:51 19:28 Temperature 98 F 97.6 F Pulse Rate 68 Pulse Rate [ 62 Radial] Respiratory 18 16 Rate Blood Pressure 116/55 Blood Pressure 138/41 [Arm] O2 Sat by Pulse 99 95 Oximetry (%) GENERAL: Awake, alert, and fully oriented, in no acute distress. HEAD: Normal with no signs of trauma. EYES: Pupils equal, round and reactive to light, extraocular movements intact, sclera anicteric EARS, NOSE, THROAT: nares patent, oropharynx clear without exudates. Dry mucous membranes. NECK: supple without lymphadenopathy, JVD, or masses. LUNGS: Breath sounds equal, mild crackles at the base. No wheezes. No accessory muscle use. HEART: Distant heart sounds. Regular rate and rhythm, normal S1 and S2, systolic murmur in the aortic and tricuspid area ABDOMEN: Soft,not distended, normoactive bowel sounds, 4-5 cm LLQ abscess with necrotic patch in between, mild oozing of serosanguinous fluid surrounding area indurated, warm, and edematous with mild tenderness UPPER EXTREMITIES: 2+ pulses, warm, well-perfused. No cyanosis. No clubbing. No peripheral edema. R thumb deformity LOWER EXTREMITIES: warm, No calf tenderness. No peripheral edema. NEUROLOGICAL: Patient calm, cooperative and conscious, A/o x 3. Moving all 4 limbs. Symmetric face, no facial droop, no nasolabial flattening. PSYCHIATRIC: Cooperative. Good eye contact. Appropriate mood and affect. SKIN: Warm, dry, normal turgor, no rashes or lesions noted, normal capillary refill. Laboratory Results - last 24 hr 10/10/17 10/10/17 10/10/17 16:57 17:00 17:00 WBC 11.7 H D RBC 4.50 Hgb 13.0 Hct 39.8 MCV 88.3 MCH 28.8 MCHC 32.6 RDW 15.0 Plt Count 235 MPV 8.3 Neutrophils % 54.6 Lymphocytes % 34.6 Monocytes % 7.6 Eosinophils % 2.4 Basophils % 0.8 PT with INR 10.60 INR 0.94 PTT (Actin FS) 28.0 Sodium Potassium Chloride Carbon Dioxide Anion Gap BUN Creatinine Creat Clearance w eGFR Random Glucose Lactic Acid Calcium Total Bilirubin AST ALT Alkaline Phosphatase Total Protein Albumin Urine Color Ltyellow Urine Appearance Clear Urine pH 5.0 Ur Specific [place] 1.012 Urine Protein Negative Urine Glucose (UA) Negative Urine Ketones Negative Urine Blood Negative Urine Nitrite Negative Urine Bilirubin Negative Urine Urobilinogen Negative Ur Leukocyte Esterase Negative 10/10/17 10/10/17 17:00 17:00 WBC RBC Hgb Hct MCV MCH MCHC RDW Plt Count MPV Neutrophils % Lymphocytes % Monocytes % Eosinophils % Basophils % PT with INR INR PTT (Actin FS) Sodium 139 Potassium 4.6 Chloride 105 Carbon Dioxide 26 Anion Gap 8 BUN 44 H D Creatinine 1.3 D Creat Clearance w eGFR 53.82 Random Glucose 164 H Lactic Acid 1.3 Calcium 8.8 Total Bilirubin 0.3 AST 9 L D ALT 22 D Alkaline Phosphatase 73 D Total Protein 6.9 Albumin 3.7 Urine Color Urine Appearance Urine pH Ur Specific [place] Urine Protein Urine Glucose (UA) Urine Ketones Urine Blood Urine Nitrite Urine Bilirubin Urine Urobilinogen Ur Leukocyte Esterase ASSESSMENT/PLAN: Patient is a 77 yo M with a PMHx of HTN, DM, CAD, s/p IVC filter, s/p R. kidney transplant, was sent by his PCP because of a painful and worsening abdominal abscess that started last week. 1) LLQ Abdominal Abscess with surrounding cellulitis -afebrile -wbc 11.7 -CT Abdomen/pelvis to look for extent of abscess -Surgery consulted: Dr Johnson - ID consulted- Dr. James - Vancomycin 1gm IV, Ertrapenem 1gm IV -Pending Blood, wound cultures -History of ESBL UTI, and staph in wound infection -Monitor CBC 2) DM - ISS -BGM ACHS -Diabetic diet -If not controlled, patient can take 15 U of Novolog in the morning 3) Renal transplant - tacro 1mg bid - mycophenolate 300mg bid - prednisone 5mg - tacro level -Consulted Nephrology, Dr. Perez 4) HTN - Hydralazine 25mg BID - Carvedilol 25 bid - Norvasc 10mg 5) CAD - ASA 81mg - Coreg 25 BID - Lipitor 10mg 6) HLD - Lipitor 7) BPH - Flomax 0.4mg 8) F/E/N -Not on any fluids -WNL -Diabetic diet -NPO after 4am if surgical intervention needed PPX: - SCDs - Not on heparin for possible surgical I&D Dispo: Med-surge Visit type - Emergency Visit Emergency Visit: Yes ED Registration Date: 10/10/17 Care time: The patient presented to the Emergency Department on the above date and was hospitalized for further evaluation of their emergent condition. - New Patient This patient is new to me today: Yes Date on this admission: 10/11/17 - Critical Care Critical Care patient: No
[2017-10-11 01:15] VITALS: BMI 26.3
[2017-10-11] MEDS: INSULIN SLIDING SCALE (NOVOLOG) 1 VIAL SQ SCH ×4 (06:38→22:28)
--- NOTE | 2017-10-11 06:44 | PN ---
Physical Exam: SUBJECTIVE: Patient to be seen and examined by me this AM - No major overnight events. Pt complaints of hunger since he has not eaten since yesterday morning. No other complaints. - Denies fevers/chills, SOB, CP, cough, palpitations, abdominal distension/pain , N/V, dysuria, diarrhea/constipation. Endorses LLQ lesions for last week. Was seen by PCP and urged to go to hospital. - Pt states that he has fallen multiple times in past. OBJECTIVE: Vital Signs Period Temp Pulse Resp BP Sys/Mendoza Pulse Ox Last 24 Hr 97.6 F-98 F 62-68 16-18 116-151/41-55 95-99 GENERAL: The patient is awake, alert, and fully oriented, in no acute distress. HEAD: NCAT EYES: R pupil minimally reactive, L reactive to light. Extraocular movements intact, sclera anicteric, conjunctiva clear. No ptosis. ENT: Ears normal, nares patent, oropharynx clear without exudates. Poor dentition. Moist mucous membranes. NECK: Trachea midline, supple. + JVD LUNGS: Breath sounds equal, mild bibasilar crackles, more prominent on R side. No wheezing or accessory muscle use. HEART: 3/6 systolic ejection murmur at LUSB and RUSB. Regular rate and rhythm, S1, S2. ABDOMEN: 3-4 cm fluctuant abscess w/ central healed necrotic region and surrounding erythema. Soft, nontender, nondistended, normoactive bowel sounds, no guarding, no rebound, no hepatosplenomegaly, no masses. Bladder percussed up to umbilicus. UPPER EXTREMITIES: 2+ pulses, wwp. Distended, tortuous R upper arm vein and thrill in cubital fossa from likely prior fistula. LOWER EXTREMITIES: 2+ pulse, wwp. BL anterior healed scars/lesions, no hair on LEs. R anterior diffuse bruising of george noted on R leg. NEUROLOGICAL: Cranial nerves II through XII grossly intact. Normal speech, gait not observed. PSYCH: Normal mood, normal affect. Laboratory Results - last 24 hr CBC, BMP CBC, BMP 10/11/17 06:30 10/11/17 06:30 Laboratory Tests 10/10/17 10/10/17 10/10/17 16:57 17:00 17:00 WBC 11.7 H D RBC 4.50 Hgb 13.0 Hct 39.8 MCV 88.3 MCH 28.8 MCHC 32.6 RDW 15.0 Plt Count 235 MPV 8.3 Neutrophils % 54.6 Lymphocytes % 34.6 Monocytes % 7.6 Eosinophils % 2.4 Basophils % 0.8 PT with INR 10.60 INR 0.94 PTT (Actin FS) 28.0 Sodium Potassium Chloride Carbon Dioxide Anion Gap BUN Creatinine Creat Clearance w eGFR POC Glucometer Random Glucose Lactic Acid Calcium Phosphorus Magnesium Total Bilirubin AST ALT Alkaline Phosphatase Total Protein Albumin Urine Color Ltyellow Urine Appearance Clear Urine pH 5.0 Ur Specific [place] 1.012 Urine Protein Negative Urine Glucose (UA) Negative Urine Ketones Negative Urine Blood Negative Urine Nitrite Negative Urine Bilirubin Negative Urine Urobilinogen Negative Ur Leukocyte Esterase Negative 10/10/17 10/10/17 10/11/17 17:00 17:00 06:05 WBC RBC Hgb Hct MCV MCH MCHC RDW Plt Count MPV Neutrophils % Lymphocytes % Monocytes % Eosinophils % Basophils % PT with INR INR PTT (Actin FS) Sodium 139 Potassium 4.6 Chloride 105 Carbon Dioxide 26 Anion Gap 8 BUN 44 H D Creatinine 1.3 D Creat Clearance w eGFR 53.82 POC Glucometer 139 Random Glucose 164 H Lactic Acid 1.3 Calcium 8.8 Phosphorus Magnesium Total Bilirubin 0.3 AST 9 L D ALT 22 D Alkaline Phosphatase 73 D Total Protein 6.9 Albumin 3.7 Urine Color Urine Appearance Urine pH Ur Specific [place] Urine Protein Urine Glucose (UA) Urine Ketones Urine Blood Urine Nitrite Urine Bilirubin Urine Urobilinogen Ur Leukocyte Esterase 10/11/17 10/11/17 06:30 06:30 WBC 9.1 RBC 4.63 Hgb 13.3 Hct 41.3 MCV 89.3 MCH 28.8 MCHC 32.2 RDW 14.7 Plt Count 227 MPV 8.3 Neutrophils % 57.4 Lymphocytes % 31.1 Monocytes % 8.3 Eosinophils % 2.6 Basophils % 0.6 PT with INR INR PTT (Actin FS) Sodium 138 Potassium 4.4 Chloride 102 Carbon Dioxide 28 Anion Gap 8 BUN 33 H D Creatinine 1.1 Creat Clearance w eGFR > 60 POC Glucometer Random Glucose 150 H Lactic Acid Calcium 8.9 Phosphorus 2.9 Magnesium 2.0 D Total Bilirubin 0.5 D AST 9 L ALT 20 Alkaline Phosphatase 64 Total Protein 6.6 Albumin 3.6 Urine Color Urine Appearance Urine pH Ur Specific [place] Urine Protein Urine Glucose (UA) Urine Ketones Urine Blood Urine Nitrite Urine Bilirubin Urine Urobilinogen Ur Leukocyte Esterase Active Medications Generic Name Dose Route Start Last Admin Trade Name Garfield PRN Reason Stop Dose Admin Amlodipine Besylate 10 mg 10/11/17 10:00 Norvasc - PO DAILY [facility] Aspirin 81 mg 10/11/17 22:00 Asa - PO HS [facility] Atorvastatin Calcium 10 mg 10/11/17 22:00 Lipitor - PO HS [facility] Carvedilol 25 mg 10/11/17 10:00 Coreg - PO BID [facility] Docusate Sodium 100 mg 10/11/17 10:00 Colace - PO DAILY [facility] Duloxetine HCl 20 mg 10/11/17 10:00 Cymbalta - PO BID [facility] Hydralazine HCl 25 mg 10/11/17 10:00 Apresoline - PO BID [facility] Insulin Aspart 1 vial 10/11/17 07:00 10/11/17 06:38 Novolog Vial Sliding Scale - SQ Not Given ACHS [facility] Protocol Mycophenolate Sodium 360 mg 10/11/17 10:00 Mycophenolic Acid PO BID [facility] Prednisone 5 mg 10/11/17 10:00 Deltasone - PO DAILY [facility] Tacrolimus 1 mg 10/11/17 10:00 Prograf PO BID [facility] Tamsulosin HCl 0.4 mg 10/11/17 22:00 Flomax - PO HS [facility] Blood cultures pending Imaging: CT abdomen/pelvis (10/10) - 1. Nonspecific nodular soft tissue in the anterior wall overlying the left pelvis measuring 4.5 x 2.1 cm may be infectious phlegmon in the appropriate clinical setting. Clinical correlation and clinical follow-up to resolution is recommended to exclude other processes, including mass. 2. Status post right nephrectomy and right pelvic transplant kidney. Moderate hydronephrosis of the transplanted right kidney with dilatation of the ureter up to its insertion in the right lateral wall of the urinary bladder. 3. A 2.1 x 2.1 cm left adrenal gland nodule is likely an adenoma. 4. Subsegmental dependent atelectasis in both lung bases. 5. Multichamber cardiomegaly with extensive coronary artery calcific atherosclerosis and aortic valve calcification. Please correlate with echocardiogram for aortic stenosis. Renal U/S ASSESSMENT/PLAN: 77 yo man w/ pmh of IDDM2, HTN, CAD, multiple UTIs w/ ESBLSs, s/p R renal transplant for ESRD in 2008, who was sent to ED due to one week of painful, worsening LLQ abdominal abscess. 1. Abdominal Abscess -> CT abdomen/pelvis + for nodular soft tissue mass (4.5 x 2.1) in anterior LLQ wall. Prior Hx of ESBL - Day 1 of Vanc/Meropenem. Clindamycin, ertapenem d/c'ed per ID - F/u blood, wound cultures - Pending I+D per surgical team. If drained, send cultures. F/u w/ surgery on current plan. - Vanc trough in AM - f/u CBC - Trend fever curve, WBC count, infectious symptoms - ID following. Recs greatly appreciated 2. DM - A1C today 9.0, down from 11 in 2016. Reports taking levemir 5 units at bedtime, however PCP contacted and only Lantus prescribed for glucose control. Will reconfirm dose/meds in AM. - BGMs, ACHS - ISS - Can start levemir 5units qHs in addition to ISS and reconfirm tomorrow 3. Kidney Transplant - Renal u/s notable for hydronephrosis of new kidney, not present on imaging in 2016. Nephrology following - Continue home tacro, cellcept and prednisone at home doses 4. Urinary Retention/BPH - Hx of BPH, Urology consulted. Distended bladder on exam and ~250ml post-void residual volume on bladder scan. Pt denies any urinary retension, dribbling, hesitancy and states he voids 1/day. - Monahan placed due to urinary retention - Flomax increased from 0.4mg to 0.8 mg - F/u urology consult 5. HTN - Home BP meds confirmed with PCP. - Continue home BP meds - Hydralazine 25mg BID, Coreg 25mg BID, Norvasc 10mg daily - Monitor BP q4H 6. Prior Hx of CAD - Continue home ASA 81mg daily, Coreg 25mg BID, lipitor 10mg daily 7. 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 Constipation - Senna, colace, miralax - F/u bowel function/ number of movements FEN: Fluids: PO intake Electrolytes: Trend BUN/Cr, monitor lytes Nutrition: Renal diet PPX: - SCDs, SubQ Heparin 5000u BID Plan discussed w/ attending, Dr. Rashmi Meneses, PGY1 Visit type - Emergency Visit Emergency Visit: No - New Patient This patient is new to me today: Yes Date on this admission: 10/11/17 - Critical Care Critical Care patient: No
[2017-10-11 07:22] LABS: BASOPHIL 0.6 % (0-2.0); EOSINOPHIL 2.6 % (0-4.5); MCH 28.8 pg (25.7-33.7); MCHC 32.2 g/dl (32.0-35.9); MEAN CELL VOLUME 89.3 fl (80-96); MEAN PLT VOLUME 8.3 fl (7.5-11.1); NEUTROPHILS 57.4 % (42.8-82.8); PLATELET COUNT 227 K/MM3 (134-434); RDW 14.7 % (11.9-15.9); WHITE BLOOD COUNT 9.1 K/mm3 (4.0-10.0)
[2017-10-11 07:43] LABS: ALBUMIN 3.6 g/dl (3.4-5.0); ANION GAP 8 (8-16); CALCIUM 8.9 mg/dL (8.5-10.1); CO2 28 mmol/L (21-32); CREATININE 1.1 mg/dL (0.7-1.3); GLUCOSE,RANDOM 150 mg/dL (74-106); PHOSPHOROUS 2.9 mg/dL (2.5-4.9); SGOT/AST 9 U/L (15-37); SGPT/ALT 20 U/L (12-78)
[2017-10-11 07:45] LABS: ALK PHOS 64 U/L (45-117); BILIRUBIN,TOTAL 0.5 mg/dL (0.2-1.0); TOT PROT 6.6 g/dl (6.4-8.2)
[2017-10-11] MEDS ORDERED: MEROPENEM 500 MG VIAL (RESTRICTED TO ID) IVPB SCH (10:30)
--- NOTE | 2017-10-11 10:39 | CONSULT ---
Consultation: REQUESTING PROVIDER: CONSULT REQUEST: We have been asked to medically evaluate this patient for LLQ infectious mass. 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 He reports being in his USOH until he noticed it. Over the course of the week, his level of pain remained the same. He denies any accompanying symptoms including fevers, chills, nausea, emesis, diarrhea, constipation, dysuria, chest pain, and SOB. He denies any trauma to the site preceding the emergence of the mass as well as any prior hx of abscesses or masses on his abdomen. It is unclear whether he injects himself with insulin in the area. Pt reports that he tried to schedule an appointment with his PCP over the week, but when he was unsuccessful, he presented to the ED. REVIEW OF SYSTEMS: CONSTITUTIONAL: Absent: fever, chills, diaphoresis, generalized weakness, malaise, loss of appetite, weight change HEENT: Absent: rhinorrhea, nasal congestion, throat pain, throat swelling, difficulty swallowing, mouth swelling, ear pain, eye pain, visual changes CARDIOVASCULAR: Absent: chest pain, syncope, palpitations, irregular heart rate, lightheadedness , peripheral edema RESPIRATORY: Absent: cough, shortness of breath, dyspnea with exertion, orthopnea, wheezing, stridor, hemoptysis GASTROINTESTINAL: Absent: abdominal distension, nausea, vomiting, diarrhea, constipation, melena, hematochezia present: LLQ mass pain GENITOURINARY: Absent: dysuria, frequency, urgency, hesitancy, hematuria, flank pain, genital pain MUSCULOSKELETAL: Absent: myalgia, arthralgia, joint swelling, back pain, neck pain SKIN: Absent: itching, pallor Present: LLQ mass with erythema HEMATOLOGIC/IMMUNOLOGIC: Absent: easy bleeding, easy bruising, lymphadenopathy, frequent infections ENDOCRINE: Absent: unexplained weight gain, unexplained weight loss, heat intolerance, cold intolerance NEUROLOGIC: Absent: headache, focal weakness or paresthesias, dizziness, unsteady gait, seizure, mental status changes, bladder or bowel incontinence PSYCHIATRIC: Absent: anxiety, depression, suicidal or homicidal ideation, hallucinations. PHYSICAL EXAMINATION Vital Signs - 24 hr 10/10/17 10/10/17 10/11/17 16:51 19:28 01:11 Temperature 98 F 97.6 F 97.7 F Pulse Rate 68 Pulse Rate [ 62 Radial] Respiratory 18 16 18 Rate Blood Pressure 116/55 151/50 Blood Pressure 138/41 [Arm] O2 Sat by Pulse 99 95 Oximetry (%) 10/11/17 10/11/17 10/11/17 01:23 06:00 09:55 Temperature 98.1 F 98.2 F Pulse Rate 63 73 Pulse Rate [ Radial] Respiratory 18 18 20 Rate Blood Pressure 157/74 124/52 Blood Pressure [Arm] O2 Sat by Pulse 95 Oximetry (%) GENERAL: Awake, alert, and fully oriented, in no acute distress. HEENT: PEARRLA, EOMI, no scleral icterus, no thrush NECK: Normal range of motion, supple without lymphadenopathy, JVD, or masses. LUNGS: Breath sounds equal, clear to auscultation bilaterally. No wheezes, and no crackles. No accessory muscle use. HEART: RRR, soft systolic murmur ABDOMEN: Soft, nontender, not distended, normoactive bowel sounds, no guarding, no rebound. No hepatomegaly or splenomegaly. 9cm x 5cm area of erythema receding from surrounding line of demarcation. 3cm x 2cm area of induration within it w/ central necrotic patch. very tender to palpation, not expressing any drainage. MUSCULOSKELETAL: Normal range of motion at all joints. No bony deformities or tenderness. No CVA tenderness. UPPER EXTREMITIES: 2+ pulses, warm, well-perfused. No cyanosis. No clubbing. Cap refill <2 seconds. No peripheral edema. LOWER EXTREMITIES: 2+ pulses, warm, well-perfused. No calf tenderness. No peripheral edema. NEUROLOGICAL: Cranial nerves II-XII intact. Normal speech. Normal gait. PSYCHIATRIC: Cooperative. Good eye contact. Appropriate mood and affect. Laboratory Results - last 24 hr 10/10/17 10/10/17 10/10/17 16:57 17:00 17:00 WBC 11.7 H D RBC 4.50 Hgb 13.0 Hct 39.8 MCV 88.3 MCH 28.8 MCHC 32.6 RDW 15.0 Plt Count 235 MPV 8.3 Neutrophils % 54.6 Lymphocytes % 34.6 Monocytes % 7.6 Eosinophils % 2.4 Basophils % 0.8 PT with INR 10.60 INR 0.94 PTT (Actin FS) 28.0 Sodium Potassium Chloride Carbon Dioxide Anion Gap BUN Creatinine Creat Clearance w eGFR POC Glucometer Random Glucose Lactic Acid Calcium Phosphorus Magnesium Total Bilirubin AST ALT Alkaline Phosphatase Total Protein Albumin Urine Color Ltyellow Urine Appearance Clear Urine pH 5.0 Ur Specific [place] 1.012 Urine Protein Negative Urine Glucose (UA) Negative Urine Ketones Negative Urine Blood Negative Urine Nitrite Negative Urine Bilirubin Negative Urine Urobilinogen Negative Ur Leukocyte Esterase Negative 10/10/17 10/10/17 10/11/17 17:00 17:00 06:05 WBC RBC Hgb Hct MCV MCH MCHC RDW Plt Count MPV Neutrophils % Lymphocytes % Monocytes % Eosinophils % Basophils % PT with INR INR PTT (Actin FS) Sodium 139 Potassium 4.6 Chloride 105 Carbon Dioxide 26 Anion Gap 8 BUN 44 H D Creatinine 1.3 D Creat Clearance w eGFR 53.82 POC Glucometer 139 Random Glucose 164 H Lactic Acid 1.3 Calcium 8.8 Phosphorus Magnesium Total Bilirubin 0.3 AST 9 L D ALT 22 D Alkaline Phosphatase 73 D Total Protein 6.9 Albumin 3.7 Urine Color Urine Appearance Urine pH Ur Specific [place] Urine Protein Urine Glucose (UA) Urine Ketones Urine Blood Urine Nitrite Urine Bilirubin Urine Urobilinogen Ur Leukocyte Esterase 10/11/17 10/11/17 06:30 06:30 WBC 9.1 RBC 4.63 Hgb 13.3 Hct 41.3 MCV 89.3 MCH 28.8 MCHC 32.2 RDW 14.7 Plt Count 227 MPV 8.3 Neutrophils % 57.4 Lymphocytes % 31.1 Monocytes % 8.3 Eosinophils % 2.6 Basophils % 0.6 PT with INR INR PTT (Actin FS) Sodium 138 Potassium 4.4 Chloride 102 Carbon Dioxide 28 Anion Gap 8 BUN 33 H D Creatinine 1.1 Creat Clearance w eGFR > 60 POC Glucometer Random Glucose 150 H Lactic Acid Calcium 8.9 Phosphorus 2.9 Magnesium 2.0 D Total Bilirubin 0.5 D AST 9 L ALT 20 Alkaline Phosphatase 64 Total Protein 6.6 Albumin 3.6 Urine Color Urine Appearance Urine pH Ur Specific [place] Urine Protein Urine Glucose (UA) Urine Ketones Urine Blood Urine Nitrite Urine Bilirubin Urine Urobilinogen Ur Leukocyte Esterase Active Medications Generic Name Dose Route Start Last Admin Trade Name Freq PRN Reason Stop Dose Admin Acetaminophen 650 mg 10/11/17 08:51 Tylenol - PO Q6H PRN FEVER OR PAIN Amlodipine Besylate 10 mg 10/11/17 10:00 Norvasc - PO DAILY [facility] Aspirin 81 mg 10/11/17 22:00 Asa - PO HS [facility] Atorvastatin Calcium 10 mg 10/11/17 22:00 Lipitor - PO HS [facility] Carvedilol 25 mg 10/11/17 10:00 Coreg - PO BID [facility] Docusate Sodium 100 mg 10/11/17 10:00 Colace - PO DAILY [facility] Duloxetine HCl 20 mg 10/11/17 10:00 Cymbalta - PO BID [facility] Hydralazine HCl 25 mg 10/11/17 10:00 Apresoline - PO BID [facility] Vancomycin HCl 1,000 mg/ 250 mls @ 166.667 mls/hr 10/11/17 11:00 Dextrose IVPB Q12H [facility] Protocol Meropenem 500 mg in 10 mls @ 120 mls/hr 10/11/17 10:30 Merrem (Restricted To Id) - IVPUSH Q8H-IV [facility] Insulin Aspart 1 vial 10/11/17 07:00 10/11/17 06:38 Novolog Vial Sliding Scale - SQ Not Given ACHS [facility] Protocol Mycophenolate Sodium 360 mg 10/11/17 10:00 Mycophenolic Acid PO BID [facility] Prednisone 5 mg 10/11/17 10:00 Deltasone - PO DAILY [facility] Tacrolimus 1 mg 10/11/17 10:00 Prograf PO BID [facility] Tamsulosin HCl 0.4 mg 10/11/17 22:00 Flomax - PO HS [facility] CT Abdomen: 4.5 x 2.1 cm nodular soft tissue mass in anterior wall of left pelvis ASSESSMENT/PLAN: 77M w/ significant hx of right kidney transplant in 2008 (on mycophenalate, prednisone, and tracrolimus), IDDM, and 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 #acute soft tissue mass on the LLQ abdomen -on presentation, there is no fever, leukocytosis of 11.7 w/o left shift -given vancomcyin, ertapenem, and clindamycin in ED -no fevers overnight -WBC count --> 9.1 -area of erthema appears to be receding from line of demarcation -given hx of immunosuppression as well as previous cx which grew MRSA and resistant E. coli, will continue pt on vancomycin 1g BID and meropenem 500mg q8h. Ertapenem does not cover Pseudomonas, and there is no need for strong anaerobic coverage requiring clindamycin. -contact precautions initiated -surgery on board, possible I & D, f/u recs -other medical problems per hospitalist team #Dispo: We will continue to follow the patient. Thank you for this consultative opportunity. -Marquise Ramirez MD PGY1 Visit type - Emergency Visit Emergency Visit: Yes ED Registration Date: 10/10/17 Care time: The patient presented to the Emergency Department on the above date and was hospitalized for further evaluation of their emergent condition. - New Patient This patient is new to me today: Yes Date on this admission: 10/11/17 - Critical Care Critical Care patient: No
[2017-10-11] MEDS ORDERED: PT OWN MED DRAWER 7, Y5N ONE ×2 (10:44→11:25)
--- NOTE | 2017-10-11 10:52 | PN ---
Teaching Attending Note Name of Resident: Marquise Ramirez ATTENDING PHYSICIAN STATEMENT I saw and evaluated the patient. I reviewed the resident's note and discussed the case with the resident. I agree with the resident's findings and plan as documented. SUBJECTIVE: 77 year old man s/p renal transplant 2008 history of osteomyelitis of the thumg April 2017-MRSA, resistant ecoli one week history of LLQ mass no fevers no pets no trauma does inject insulin OBJECTIVE: Vital Signs Period Temp Pulse Resp BP Sys/Mendoza Pulse Ox Last 24 Hr 97.6 F-98.2 F 62-73 16-20 116-157/41-74 95-99 cor-rrr lungs clear abd soft, 9 by 4 cm area of erythema (marked by ED), necrotic center ext no edema CBC, BMP 10/11/17 06:30 10/11/17 06:30 ct scan noted blood cultures pending ASSESSMENT AND PLAN: anterior wall soft tissue mass in immunocompromised host-s/p renal transplant histroy of MRSA, resistant Ecoli contact isolation vancomycin/meropenem surgery to drain collection renal eval
--- NOTE | 2017-10-11 10:56 | CONSULT ---
Consultation: REQUESTING PROVIDER: CONSULT REQUEST: We have been asked to medically evaluate this patient for ( specify). HISTORY OF PRESENT ILLNESS: The pt is a 77 year old male with significant PMH of HTN, CABG 4 vessel 2010, CKD, right kidney transplant 2008, IVC filter placed in 2016, osteomyelitis in right thumb, ESBL UTI, DMII who presented to the hospital referred from his PCP for skin abscess on his abdomen. He is complaining of abdominal pain in LLQ that is 10/10 in severity. He states that his abscess hasn't changed in size. He denies injury, fever, chills, nausea, vomiting, diarrhea, constipation. He takes his medications everyday and he visited Dr. Perez 2 months ago. He denies dysuria, urgency, frequency, hematuria. REVIEW OF SYSTEMS: CONSTITUTIONAL: Absent: fever, chills, diaphoresis, generalized weakness, malaise, loss of appetite, weight change HEENT: Absent: rhinorrhea, nasal congestion, throat pain, throat swelling, difficulty swallowing, mouth swelling, ear pain, eye pain, visual changes CARDIOVASCULAR: Absent: chest pain, syncope, palpitations, irregular heart rate, lightheadedness , peripheral edema RESPIRATORY: Absent: cough, shortness of breath, dyspnea with exertion, orthopnea, wheezing, stridor, hemoptysis GASTROINTESTINAL:abdominal pain, Absent: nausea, vomiting, diarrhea, constipation, melena, hematochezia GENITOURINARY: Absent: dysuria, frequency, urgency, hesitancy, hematuria, flank pain, MUSCULOSKELETAL: Absent: myalgia, arthralgia, joint swelling, back pain, neck pain SKIN: Absent: itching, pallor ENDOCRINE: Absent: unexplained weight gain, unexplained weight loss NEUROLOGIC: Absent: headache, focal weakness or paresthesias PHYSICAL EXAMINATION Vital Signs - 24 hr 10/10/17 10/10/17 10/11/17 16:51 19:28 01:11 Temperature 98 F 97.6 F 97.7 F Pulse Rate 68 Pulse Rate [ 62 Radial] Respiratory 18 16 18 Rate Blood Pressure 116/55 151/50 Blood Pressure 138/41 [Arm] O2 Sat by Pulse 99 95 Oximetry (%) 10/11/17 10/11/17 10/11/17 01:23 06:00 09:55 Temperature 98.1 F 98.2 F Pulse Rate 63 73 Pulse Rate [ Radial] Respiratory 18 18 20 Rate Blood Pressure 157/74 124/52 Blood Pressure [Arm] O2 Sat by Pulse 95 Oximetry (%) GENERAL: Awake, alert, and fully oriented, in no acute distress. HEAD: Normal with no signs of trauma. EYES: Pupils equal, round and reactive to light, extraocular movements intact, sclera anicteric, conjunctiva clear. No lid lag. EARS, NOSE, THROAT: Ears normal, nares patent, oropharynx clear without exudates. Moist mucous membranes. NECK: Normal range of motion, supple without lymphadenopathy, JVD, or masses. LUNGS: Breath sounds equal, clear to auscultation bilaterally. No wheezes, and no crackles. No accessory muscle use. HEART: Regular rate and rhythm, normal S1 and S2, holosystolic murmur over left sternal border, no gallop. ABDOMEN: Soft, nontender, not distended, normoactive bowel sounds, no guarding, no rebound, 2 cm abscess in LLQ, erythema around. No flactuation, no drainage. MUSCULOSKELETAL: Normal range of motion at all joints. No bony deformities or tenderness. No CVA tenderness. UPPER EXTREMITIES: 2+ pulses, warm, well-perfused. No cyanosis. No clubbing. No peripheral edema. LOWER EXTREMITIES: 2+ pulses, warm, well-perfused. No calf tenderness. No peripheral edema. NEUROLOGICAL: Normal speech, no facial asymmetry. Gait not observed. PSYCHIATRIC: Cooperative. Good eye contact. Appropriate mood and affect. SKIN: Warm, dry, normal turgor, no rashes. Laboratory Results - last 24 hr 10/10/17 10/10/17 10/10/17 16:57 17:00 17:00 WBC 11.7 H D RBC 4.50 Hgb 13.0 Hct 39.8 MCV 88.3 MCH 28.8 MCHC 32.6 RDW 15.0 Plt Count 235 MPV 8.3 Neutrophils % 54.6 Lymphocytes % 34.6 Monocytes % 7.6 Eosinophils % 2.4 Basophils % 0.8 PT with INR 10.60 INR 0.94 PTT (Actin FS) 28.0 Sodium Potassium Chloride Carbon Dioxide Anion Gap BUN Creatinine Creat Clearance w eGFR POC Glucometer Random Glucose Lactic Acid Calcium Phosphorus Magnesium Total Bilirubin AST ALT Alkaline Phosphatase Total Protein Albumin Urine Color Ltyellow Urine Appearance Clear Urine pH 5.0 Ur Specific [place] 1.012 Urine Protein Negative Urine Glucose (UA) Negative Urine Ketones Negative Urine Blood Negative Urine Nitrite Negative Urine Bilirubin Negative Urine Urobilinogen Negative Ur Leukocyte Esterase Negative 10/10/17 10/10/17 10/11/17 17:00 17:00 06:05 WBC RBC Hgb Hct MCV MCH MCHC RDW Plt Count MPV Neutrophils % Lymphocytes % Monocytes % Eosinophils % Basophils % PT with INR INR PTT (Actin FS) Sodium 139 Potassium 4.6 Chloride 105 Carbon Dioxide 26 Anion Gap 8 BUN 44 H D Creatinine 1.3 D Creat Clearance w eGFR 53.82 POC Glucometer 139 Random Glucose 164 H Lactic Acid 1.3 Calcium 8.8 Phosphorus Magnesium Total Bilirubin 0.3 AST 9 L D ALT 22 D Alkaline Phosphatase 73 D Total Protein 6.9 Albumin 3.7 Urine Color Urine Appearance Urine pH Ur Specific [place] Urine Protein Urine Glucose (UA) Urine Ketones Urine Blood Urine Nitrite Urine Bilirubin Urine Urobilinogen Ur Leukocyte Esterase 10/11/17 10/11/17 06:30 06:30 WBC 9.1 RBC 4.63 Hgb 13.3 Hct 41.3 MCV 89.3 MCH 28.8 MCHC 32.2 RDW 14.7 Plt Count 227 MPV 8.3 Neutrophils % 57.4 Lymphocytes % 31.1 Monocytes % 8.3 Eosinophils % 2.6 Basophils % 0.6 PT with INR INR PTT (Actin FS) Sodium 138 Potassium 4.4 Chloride 102 Carbon Dioxide 28 Anion Gap 8 BUN 33 H D Creatinine 1.1 Creat Clearance w eGFR > 60 POC Glucometer Random Glucose 150 H Lactic Acid Calcium 8.9 Phosphorus 2.9 Magnesium 2.0 D Total Bilirubin 0.5 D AST 9 L ALT 20 Alkaline Phosphatase 64 Total Protein 6.6 Albumin 3.6 Urine Color Urine Appearance Urine pH Ur Specific [place] Urine Protein Urine Glucose (UA) Urine Ketones Urine Blood Urine Nitrite Urine Bilirubin Urine Urobilinogen Ur Leukocyte Esterase Active Medications Generic Name Dose Route Start Last Admin Trade Name Freq PRN Reason Stop Dose Admin Acetaminophen 650 mg 10/11/17 08:51 Tylenol - PO Q6H PRN FEVER OR PAIN Amlodipine Besylate 10 mg 10/11/17 10:00 Norvasc - PO DAILY [facility] Aspirin 81 mg 10/11/17 22:00 Asa - PO HS [facility] Atorvastatin Calcium 10 mg 10/11/17 22:00 Lipitor - PO HS [facility] Carvedilol 25 mg 10/11/17 10:00 Coreg - PO BID [facility] Docusate Sodium 100 mg 10/11/17 10:00 Colace - PO DAILY [facility] Duloxetine HCl 20 mg 10/11/17 10:00 Cymbalta - PO BID [facility] Hydralazine HCl 25 mg 10/11/17 10:00 Apresoline - PO BID [facility] Vancomycin HCl 1,000 mg/ 250 mls @ 166.667 mls/hr 10/11/17 11:00 Dextrose IVPB Q12H [facility] Protocol Meropenem 500 mg in 10 mls @ 120 mls/hr 10/11/17 10:30 Merrem (Restricted To Id) - IVPUSH Q8H-IV [facility] Insulin Aspart 1 vial 10/11/17 07:00 10/11/17 06:38 Novolog Vial Sliding Scale - SQ Not Given ACHS [facility] Protocol Mycophenolate Sodium 360 mg 10/11/17 10:00 Mycophenolic Acid PO BID [facility] Prednisone 5 mg 10/11/17 10:00 Deltasone - PO DAILY [facility] Tacrolimus 1 mg 10/11/17 10:00 Prograf PO BID [facility] Tamsulosin HCl 0.4 mg 10/11/17 22:00 Flomax - PO HS [facility] ASSESSMENT/PLAN: The pt is a 77 year old male with significant PMH of HTN, CABG 4 vessel 2010, CKD, right kidney transplant 2008, IVC filter placed in 2016, osteomyelitis in right thumb, ESBL UTI, DMII who presented to the hospital referred from his PCP for skin abscess on his abdomen. 1CKD 2s/p Right kidney transplant 3abscess 4DM 5HTN 6CAD 7HDL 1 continue current management, no nephrotoxic substances 2 stable, ciontinue medications Tacrolimus and Mycophenolate, steroids, CT abdomen reviewed- we will recommend urology consultation and US of transplanted kidney 3 continue abx: Meropenem, Vancomycin and f/u surgery recommendations 4 cont ISS 5 cont Norvasc, Coreg, Hydralazine 6 stable, cont Aspirin 7cont Lipitor Dispo: We will continue to follow the patient. Thank you for this consultative opportunity. Problem List - Problems (1) Cellulitis and abscess of other specified site Code(s): L03.818 - CELLULITIS OF OTHER SITES; L02.818 - CUTANEOUS ABSCESS OF OTHER SITES (2) DM2 (diabetes mellitus, type 2) Code(s): E11.9 - TYPE 2 DIABETES MELLITUS WITHOUT COMPLICATIONS (3) ESBL E. coli carrier Code(s): Z22.39 - CARRIER OF OTHER SPECIFIED BACTERIAL DISEASES (4) H/O kidney transplant Code(s): Z94.0 - KIDNEY TRANSPLANT STATUS (5) HTN (hypertension) Code(s): I10 - ESSENTIAL (PRIMARY) HYPERTENSION (6) Hx of CABG Code(s): Z95.1 - PRESENCE OF AORTOCORONARY BYPASS GRAFT (7) IDDM (insulin dependent diabetes mellitus) Code(s): E11.9 - TYPE 2 DIABETES MELLITUS WITHOUT COMPLICATIONS; Z79.4 - ENTRY TECH (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 OF INSULIN (8) Kidney transplant recipient Code(s): Z94.0 - KIDNEY TRANSPLANT STATUS Visit type - Emergency Visit Emergency Visit: Yes ED Registration Date: 10/10/17 Care time: The patient presented to the Emergency Department on the above date and was hospitalized for further evaluation of their emergent condition. - New Patient This patient is new to me today: Yes Date on this admission: 10/11/17 - Critical Care Critical Care patient: No
[2017-10-11] MEDS: hydrALAZINE HCL 25 MG TABLET (FP) PO SCH ×3 (11:13→22:23)
[2017-10-11] MEDS: CARVEDILOL 25 MG TABLET (FP) PO SCH ×3 (11:14→22:22)
[2017-10-11] MEDS: amLODIPine BESYLATE 10 MG TABLET (FP) PO SCH ×2 (11:14→12:23)
[2017-10-11] MEDS: predniSONE 5 MG TABLET (UD) PO SCH (11:14)
[2017-10-11] MEDS: DOCUSATE SODIUM 100 MG CAPSULE (FP) PO SCH (11:15)
[2017-10-11] MEDS: DULoxetine HCL 20 MG CAPSULE.DR (FP) PO SCH ×2 (11:15→22:23)
[2017-10-11] MEDS: TACROLIMUS ANHYDROUS 1 MG CAPSULE PO SCH ×2 (11:16→22:24)
[2017-10-11] MEDS: MYCOPHENOLATE SODIUM 360 MG TABLET.DR PO SCH ×2 (11:17→22:22)
--- NOTE | 2017-10-11 12:00 | PN ---
Teaching Attending Note Name of Resident: Vega Meneses ATTENDING PHYSICIAN STATEMENT I saw and evaluated the patient. I reviewed the resident's note and discussed the case with the resident. I agree with the resident's findings and plan as documented. SUBJECTIVE: Denies any fever or chills. has no ABd pain, except fro at the site of the abscess. has no diarrhea . reports decrease in UOP in last few months . has no abd discomfort. denies CP or SOB reports compliance with his medications , but deos not remember any of them. states he takes 5 untis of levemir in evening only . No other insulin OBJECTIVE: AAOX3. NAD. CV: RRR, R JVD. 3/6 SM at base and heard fainter at LLSB with radiation to carotids . 2-3 /6 SM at LLSB with radiadtion to axilla . LUng s: CTAB ABd: soft, ND , no TTP on deep palpation. tenderness with superficial palpation of LLQ over the erythematous area . 6/5 cm erythematous area with an eschar in middle ( 1x1.5 cm ) and flucuation in center. warm skin over affected area . Bladder is percussed up tot he umbilicus . Ext: no edema , minimal scarce hair , smooth skin. DP 1+ b/l A/P 76 y/o gentleman with h/o HTN, ESRD s/p renal transplant in 09 , IDDM , CAD s/p CABG recurrent UTIs , h/o DVT s/p SVC filter, recurrent falls , UTIS with ESBL and E faecalis , thumb OM and other medical problems who presented with pain and erythema on abd wall and was found to have cellulitis with an abscess formation 1- abd wall celullitits with a developing phlegmon/abscess: leukocytosis improved - COnt Abx . - follow blood cx - on reviewing CT scan, a discrete abscess has not formed yet. Surgery input appreciated. might need drainage - if drained , will send cx to narrow bx - CBC tomorrow - vanco trough before morning dose 2- h/o DM : reports taking levemir only 5 units HS - start low dose levemir this evening , then adjust dose in addition to SSI - follow A1c ( 11 in 2015) 3- H/o HTN: His meds need to be confirmed with his family, pharmacy , and PCP - cont current meds 4- ESRD s/p renal tx . stable Cr at base line . - CT shows hydronephrosis of transplanted kidney. This is new compared to US form 2016. ON exam , bladder is percussed up to umbilicus and on CT bladder is full and dilated. Possible urinary retention will check post void bladder scan , and if high residual will place rodriguez - cont tacrulimus, cellcept , and prednisone. He is not septic , will not hold any , unless recommended otherwise per renal 5- CAD: s/p CABG and stents. - COnt ASA and statin and will confirm rest of meds 6- h/o DVT : has IVC filter 7- DVT PX : add heparin sq HLOC Meds to be confirmed . poor historian
[2017-10-11] MEDS ORDERED: INSULIN (NOVOLOG) ASPART 100 UNITS/ML 10ML VIAL ONE ×2 (12:11→18:51)
[2017-10-11] MEDS: MEROPENEM 500 MG PUSH 500 MG/10 ML DISP.SYRIN IVPUSH SCH (12:18)
[2017-10-11] MEDS: VANCOMYCIN 1,000 MG in DEXTROSE 5%-WATER - 250 ML IVPB SCH ×2 (12:22→22:24)
[2017-10-11] MEDS: ACETAMINOPHEN 325 MG TABLET (FP) PO PRN (13:31)
--- NOTE | 2017-10-11 14:10 | PN ---
Teaching Attending Note Name of Resident: Esmer Schaeffer (Nephrology) ATTENDING PHYSICIAN STATEMENT I saw and evaluated the patient. I reviewed the resident's note and discussed the case with the resident. I agree with the resident's findings and plan as documented. Nephrology Please see note filled out by resident. Pt is a 77 year old male with pmhx of kidney transplant who presents for abdominal wall infection. He complains of pain and discomfort from the area. He denies fevers or chills. He denies dysuria or hematuria. pmhx ckd dm htn chol pshx kidney transplant nkda social hx denies family hx DM ros denies Current Medications Generic Name Dose Route Start Last Admin Trade Name Freq PRN Reason Stop Dose Admin Acetaminophen 650 mg 10/11/17 08:51 10/11/17 13:31 Tylenol - PO 650 mg Q6H PRN Administration FEVER OR PAIN Amlodipine Besylate 10 mg 10/11/17 10:00 10/11/17 12:23 Norvasc - PO 10 mg DAILY HUGO Administration Aspirin 81 mg 10/11/17 22:00 Asa - PO HS HUGO Atorvastatin Calcium 10 mg 10/11/17 22:00 Lipitor - PO HS HUGO Carvedilol 25 mg 10/11/17 10:00 10/11/17 12:23 Coreg - PO 25 mg BID HUGO Administration Docusate Sodium 100 mg 10/11/17 10:00 10/11/17 11:15 Colace - PO 100 mg DAILY HUGO Administration Duloxetine HCl 20 mg 10/11/17 10:00 10/11/17 11:15 Cymbalta - PO 20 mg BID HUGO Administration Heparin Sodium (Porcine) 5,000 unit 10/11/17 22:00 Heparin - SQ BID HUGO Hydralazine HCl 25 mg 10/11/17 10:00 10/11/17 12:23 Apresoline - PO 25 mg BID HUGO Administration Vancomycin HCl 1,000 mg/ 250 mls @ 166.667 mls/hr 10/11/17 11:00 10/11/17 12: 22 Dextrose IVPB 166.667 mls/hr Q12H HUGO Administration Protocol Meropenem 500 mg in 10 mls @ 120 mls/hr 10/11/17 10:30 10/11/17 12:18 Merrem (Restricted To Id) - IVPUSH 120 mls/hr Q8H-IV HUGO Administration Insulin Aspart 1 vial 10/11/17 07:00 10/11/17 12:15 Novolog Vial Sliding Scale - SQ 6 units ACHS HUGO Administration Protocol Mycophenolate Sodium 360 mg 10/11/17 10:00 10/11/17 11:17 Mycophenolic Acid PO 360 mg BID HUGO Administration Polyethylene Glycol 17 gm 10/12/17 10:00 Miralax (For Daily Use) - PO DAILY HUGO Prednisone 5 mg 10/11/17 10:00 10/11/17 11:14 Deltasone - PO 5 mg DAILY HUGO Administration Senna 1 tab 10/11/17 12:00 Senna - PO HS HUGO Tacrolimus 1 mg 10/11/17 10:00 10/11/17 11:16 Prograf PO 1 mg BID HUGO Administration Tamsulosin HCl 0.8 mg 10/11/17 22:00 Flomax - PO HS HUGO Laboratory Tests 01/11/17 01/12/17 01/13/17 07:36 05:35 05:35 WBC Creatinine 1.2 1.0 0.9 Urine Protein Urine Blood Tacrolimus 05/18/17 05/19/17 10/10/17 07:35 06:20 16:57 WBC Creatinine 1.2 D 1.0 Urine Protein Negative Urine Blood Negative Tacrolimus 10/10/17 10/11/17 10/11/17 17:00 06:30 06:30 WBC 9.1 Creatinine 1.3 D 1.1 Urine Protein Urine Blood Tacrolimus 10/11/17 06:30 WBC Creatinine Urine Protein Urine Blood Tacrolimus Pending Last Vital Signs Temp Pulse Resp BP Pulse Ox 98.5 F 78 20 152/50 95 10/11/17 11:07 10/11/17 12:10 10/11/17 12:10 10/11/17 12:10 10/11/17 01:23 ct abd positive for hydro cardio s1s2 reg pulm clear GI soft ext neg edema graft soft and non tender, there is bladder distention neuro awake and alert Impression 1. CKD 2. kidney transplant 3. DM 4. syncope 5. HTN 6. hyperlipidemia 7. leukocytosis 8. abdominal wall cellulitis Plan - check transplant ultrasound - cont prograf and mycophenylate - follow cultures - cont abx - surgery eval or depbridement - urology eval for hydro Dr Perez
[2017-10-11] MEDS: SENNOSIDES 8.6MG TABLET (FP) PO SCH ×2 (15:01→22:23)
[2017-10-11] MEDS ORDERED: LIDOCAINE 1%/EPI 1:100000 (20 ML MULTI DOSE VIAL) IJ ONE (19:35)
[2017-10-11] MEDS ORDERED: TAMSULOSIN HCL 0.4 MG CAP.ER.24H (FP) PO SCH (22:00)
[2017-10-11] MEDS ORDERED: SODIUM CHLORIDE 1,000 ML IV SCH (22:00)
[2017-10-11] MEDS ORDERED: SODIUM CHLORIDE 500 ML IV SCH (22:15)
[2017-10-11] MEDS: ATORVASTATIN CA 10 MG TABLET (FP) PO SCH (22:22)
[2017-10-11] MEDS: HEPARIN NA (PORCINE) 5,000 UNITS/ML 1ML VIAL SQ SCH (22:22)
[2017-10-11] MEDS: ASPIRIN 81 MG CHEWABLE TABLETS PO SCH (22:23)
[2017-10-11] MEDS: TAMSULOSIN HCL 0.4 MG CAP.ER.24H (FP) PO SCH (22:23)
--- NOTE | 2017-10-11 22:44 | CONSULT ---
Consult Consult Specialty:: General Surgery Referred by:: ER/Hospitalist team Reason for Consultation:: LLQ abdominal wall abscess - History of Present Illness Chief Complaint: LLQ abdomen swelling, redness, drainage, pain History of Present Illness: 77yo Kisw[place]ili M with multiple medical problems including h/o right renal transplant 2008, CAD/VA s/p CABG and stents, HTN, DM, was sent to ER by PMD for LLQ abdominal wall abscess of 4-7 days' duration. He does inject insulin into his abdominal wall, but denies doing so in the area of the abscess. He denies fever/chills, nausea/vomiting, headache/dizziness, but cannot give details about the abscess or its course. Per the chart, it had been draining previously , but is not doing so any longer. He denies pain anywhere else, but the site is clearly tender. 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 He is somewhat cooperative with exam, but also wants the doctors to leave. He does not want any interventions at this time. He is tolerating diabetic diet. He smiles but states "go home." - History Source History Provided By: Patient, Medical Record Limitations to Obtaining History: Other (poor historian and uncooperative and language barrier (Kiswahili interpreted at bedside by Dr. Sona Randolph)) - Past Medical History Cardio/Vascular: Yes: CAD (CABG), HTN, Other (PAD, heel osteo in 04/05) Renal/: Yes: Renal Failure, Renal Inusuff, Hemodialysis (in past prior to renal transplant 2008), Other (S/P Kidney tranplant 2008. 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) Endocrine: Yes: Diabetes Mellitus - Past Surgical History Past Surgical History: Yes: AV Fistula/Graft (right upper arm), CABG, Kidney Transplant (right 2008) - Alcohol/Substance Use Hx Alcohol Use: No - Smoking History Smoking history: Never smoked Have you smoked in the past 12 months: No Aproximately how many cigarettes per day: 0 - Social History Usual Living Arrangement: Alone ADL: Support Services History of Recent Travel: No Home Medications - Allergies Allergies/Adverse Reactions: Allergies Allergy/AdvReac Type Severity Reaction Status Date / Time No Known Drug Allergies Allergy Verified 10/10/17 16:57 - Home Medications Home Medications: Ambulatory Orders Amlodipine Besylate [Norvasc -] 10 mg PO DAILY 05/17/17 Aspirin [Jena Chewable Aspirin] 81 mg PO HS 05/17/17 Atorvastatin Ca [Lipitor] 10 mg PO HS 05/17/17 Carvedilol [Coreg -] 25 mg PO BID 05/17/17 Docusate Sodium [Colace -] 100 mg PO DAILY 05/17/17 Duloxetine HCl [Cymbalta] 20 mg PO BID 05/17/17 Hydralazine HCl [Apresoline -] 25 mg PO BID 05/17/17 Mycophenolate Sodium [Myfortic] 360 mg PO BID 05/17/17 Prednisone [Deltasone -] 5 mg PO DAILY 05/17/17 Tacrolimus Anhydrous [Prograf] 1 mg PO BID 05/17/17 Tamsulosin HCl [Flomax] 0.4 mg PO HS 05/17/17 Insulin (Novolog) [Novolog -] 15 units SQ 0700 units 05/20/17 Insulin Sliding Scale [Novolog Vial Sliding Scale -] 0 vial SQ ACHS units 05/20 Family Disease History - Family Disease History Family History: Unable to Obtain (language barrier and poor/uncooperative historian) Review of Systems Unable to obtain ROS, reason: limited - Review of Systems Constitutional: denies: Chills, Fever Gastrointestinal: denies: Abdominal Pain, Nausea, Vomiting Integumentary: reports: Erythema (with hpi), Lump (with hpi), Wound (with hpi) Neurological: denies: Dizziness, Headache Psychiatric: reports: Depression (per chart ( in Jul)). denies: Suicidal Physical Exam Vital Signs: Vital Signs Temperature 98.7 F 10/11/17 14:57 Pulse Rate 79 10/11/17 14:57 Respiratory Rate 20 10/11/17 12:10 Blood Pressure 160/55 10/11/17 14:57 O2 Sat by Pulse Oximetry (%) 95 10/11/17 11:00 Constitutional: Yes: Well Nourished, No Distress, Calm (generally) Eyes: Yes: Conjunctiva Clear, EOM Intact HENT: Yes: Atraumatic, Normocephalic Neck: Yes: Supple, Trachea Midline Cardiovascular: Yes: Regular Rate and Rhythm, Murmur Respiratory: Yes: Regular, CTA Bilaterally, Other (few basal crackles) Gastrointestinal: Yes: Soft, Other (at lower left abdominal wall, ~4-5 x 3 cm region of pink, indurated tissue (subcutaneous) with black central eschar over raised central area, peripheral skin dry and peeling, redness receding by previous ink corbin, looks c/w likely MRSA lesion). No: Distention, Tenderness ( only at abdominal wall LLQ/L pelvis at area of abscess) ...Rectal Exam: Yes: Deferred Renal/: Yes: Monahan Present, Hematuria Musculoskeletal: No: Joint Stiffness, Joint Swelling Extremities: No: Cool, Cyanosis Integumentary: Yes: Erythema (at LLQ abdominal wall, around somewhat raised, tender, indurated area with necrotic center/black eschar - no expressible drainage, ink corbin from previous border of erythema has clearly receded). No: Jaundice Neurological: Yes: Alert, Oriented (?? - difficult to tell if patient is actually confused at all or just wants to be left alone, seems pleasant, but is reluctant to complete exam or allow intervention) Psychiatric: Yes: Alert, Agitated (mildly) Labs: CBC, BMP 10/11/17 06:30 10/11/17 06:30 CMP Sodium 138 mmol/L (136-145) 10/11/17 06:30 Potassium 4.4 mmol/L (3.5-5.1) 10/11/17 06:30 Chloride 102 mmol/L (98-107) 10/11/17 06:30 Carbon Dioxide 28 mmol/L (21-32) 10/11/17 06:30 Anion Gap 8 (8-16) 10/11/17 06:30 BUN 33 mg/dL (7-18) H D 10/11/17 06:30 Creatinine 1.1 mg/dL (0.7-1.3) 10/11/17 06:30 Creat Clearance w eGFR > 60 (>60) 10/11/17 06:30 POC Glucometer 248 UNITS (80-120) 10/11/17 17:48 Random Glucose 150 mg/dL (74-106) H 10/11/17 06:30 Hemoglobin A1c % 9.0 % (4.8-6.0) H D 10/11/17 06:30 Lactic Acid 1.3 mmol/L (0.4-2.0) 10/10/17 17:00 Calcium 8.9 mg/dL (8.5-10.1) 10/11/17 06:30 Phosphorus 2.9 mg/dL (2.5-4.9) 10/11/17 06:30 Magnesium 2.0 mg/dL (1.8-2.4) D 10/11/17 06:30 Total Bilirubin 0.5 mg/dL (0.2-1.0) D 10/11/17 06:30 AST 9 U/L (15-37) L 10/11/17 06:30 ALT 20 U/L (12-78) 10/11/17 06:30 Alkaline Phosphatase 64 U/L (45-117) 10/11/17 06:30 Total Protein 6.6 g/dl (6.4-8.2) 10/11/17 06:30 Albumin 3.6 g/dl (3.4-5.0) 10/11/17 06:30 Microbiology 10/10/17 15:12 Blood Culture - Preliminary Blood - Peripheral Venous NO GROWTH OBTAINED AFTER 24 HOURS, INCUBATION TO CONTINUE FOR 4 DAYS. 10/10/17 15:12 Blood Culture - Preliminary Blood - Peripheral Venous NO GROWTH OBTAINED AFTER 24 HOURS, INCUBATION TO CONTINUE FOR 4 DAYS. Urine Test Results Urine Color Ltyellow 10/10/17 16:57 Urine Appearance Clear 10/10/17 16:57 Urine pH 5.0 (5.0-8.0) 10/10/17 16:57 Ur Specific [place] 1.012 (1.001-1.035) 10/10/17 16:57 Urine Protein Negative (NEGATIVE) 10/10/17 16:57 Urine Glucose (UA) Negative (NEGATIVE) 10/10/17 16:57 Urine Ketones Negative (NEGATIVE) 10/10/17 16:57 Urine Blood Negative (NEGATIVE) 10/10/17 16:57 Urine Nitrite Negative (NEGATIVE) 10/10/17 16:57 Urine Bilirubin Negative (NEGATIVE) 10/10/17 16:57 Ur Leukocyte Esterase Negative (NEGATIVE) 10/10/17 16:57 INR, PTT INR 0.94 (0.82-1.09) 10/10/17 17:00 Imaging - Results Cat Scan: Report Reviewed, Image Reviewed (LLQ abdominal wall phlegmon, not clear if any actual fluid collection present vs cellulitis and tissue induration /inflammation) Problem List - Problems (1) Furuncle of abdominal wall Assessment/Plan: likely MRSA lesion IV antibiotics per ID immunocompromised patient on anti-rejection drugs offered incision and drainage - attempted to discuss procedure and risks/ benefits/alternatives, but patient not receptive to discussion nor any intervention at this time. would unroof/remove necrotic skin/eschar, culture internal content/pus if present for organism and sensitivities, pack area and initiate daily wound care/dressing changes as indicated. Pt indicated in Kis[place]ili to Dr. Randolph that he may be ok with procedure, but not now. Supplies left in patient's room, will see again in am. Lesion does look to be improving on IV antibiotics MRSA may lead to more necrotic tissue than purulent collection if patient continues to refuse opening site, would continue with current treatment per ID Code(s): L02.221 - FURUNCLE OF ABDOMINAL WALL (2) Cellulitis of abdominal wall Assessment/Plan: seems to be improving - see above Code(s): L03.311 - CELLULITIS OF ABDOMINAL WALL (3) History of MRSA infection Code(s): Z86.14 - PERSONAL HISTORY OF METHICILLIN RESIS STAPH INFECTION (4) H/O kidney transplant Code(s): Z94.0 - KIDNEY TRANSPLANT STATUS (5) ESBL E. coli carrier Code(s): Z22.39 - CARRIER OF OTHER SPECIFIED BACTERIAL DISEASES (6) Type 2 diabetes mellitus with diabetic polyneuropathy Code(s): E11.42 - TYPE 2 DIABETES MELLITUS WITH DIABETIC POLYNEUROPATHY Qualifiers: Diabetes mellitus manager terminal insulin use: with manager terminal use Qualified Code( s): E11.42 - Type 2 diabetes mellitus with diabetic polyneuropathy; Z79.4 - technician terminal and repeater (current) use of insulin; Z79.4 - shelter (current) use of insulin; Z79.4 - technician terminal and repeater (current) use of insulin; Z79.4 - technician terminal and repeater (current) use of insulin (7) HTN (hypertension) Code(s): I10 - ESSENTIAL (PRIMARY) HYPERTENSION Qualifiers: Hypertension type: unspecified Qualified Code(s): I10 - Essential (primary ) hypertension (8) Hx of CABG Code(s): Z95.1 - PRESENCE OF AORTOCORONARY BYPASS GRAFT
[2017-10-12 00:10] LABS: ANION GAP 8 (8-16); CO2 28 mmol/L (21-32); CREATININE 1.2 mg/dL (0.7-1.3); GLUCOSE,RANDOM 250 mg/dL (74-106)
[2017-10-12] MEDS: MEROPENEM 500 MG PUSH 500 MG/10 ML DISP.SYRIN IVPUSH SCH ×4 (01:47→17:57)
--- NOTE | 2017-10-12 06:34 | PN ---
Physical Exam: SUBJECTIVE: Patient seen and examined this AM. - Pt w/ no major complaints. Does not recall meeting with surgical team last night. Counseled this AM about need for I+D of superficial abdominal mass. Pt agreed to procedure. - Denies any [place]/dizziness, lightheadness, fevers/chills, CP, palpitations, cough , SOB, N/V, diarrhea/constipation, peripheral weakness/numbness - Per nursing, pt was mildly agitated last night and was placed on dakota hugger. However, pt w/ history of mild dementia and has tendency to sundown per PGY2 resident and may have been confused/delirious. Patient A&Ox3 this AM during interview. OBJECTIVE: Vital Signs Period Temp Pulse Resp BP Sys/Mendoza Pulse Ox Last 24 Hr 97.8 F-98.7 F 65-79 18-20 115-160/40-55 95-95 GENERAL: The patient is awake, alert, and fully oriented, in no acute distress. Appears slightly pale. HEAD: NCAT EYES: R pupil minimally reactive, L reactive to light. Extraocular movements intact, sclera anicteric, conjunctiva clear. No ptosis. ENT: Ears normal, nares patent, oropharynx clear without exudates. Poor dentition. Moist mucous membranes. NECK: Trachea midline, supple. + JVD LUNGS: Breath sounds equal, still w/ bibasilar crackles. No wheezing or accessory muscle use. HEART: 3/6 systolic ejection murmur at LUSB and RUSB. 2/6 systolic murmur at apex w/ radiation to axilla. Regular rate and rhythm, S1, S2. ABDOMEN: 3-4 cm fluctuant abscess w/ central healed necrotic region and surrounding erythema. Soft, nontender, nondistended, normoactive bowel sounds, no guarding, no rebound, no hepatosplenomegaly, no masses. Monahan in place. UPPER EXTREMITIES: 2+ pulses, wwp. Distended, tortuous R upper arm vein and thrill in cubital fossa from likely prior fistula. LOWER EXTREMITIES: 2+ pulse, wwp. BL anterior healed scars/lesions, no hair on LEs. Still with anterior healed bruise of R george. PSYCH: Normal mood, normal affect. Laboratory Results - last 24 hr CBC, BMP 10/11/17 06:30 10/11/17 23:37 10/11/17 10/11/17 10/11/17 06:30 06:30 06:30 WBC 9.1 RBC 4.63 Hgb 13.3 Hct 41.3 MCV 89.3 MCH 28.8 MCHC 32.2 RDW 14.7 Plt Count 227 MPV 8.3 Neutrophils % 57.4 Lymphocytes % 31.1 Monocytes % 8.3 Eosinophils % 2.6 Basophils % 0.6 Sodium 138 Potassium 4.4 Chloride 102 Carbon Dioxide 28 Anion Gap 8 BUN 33 H D Creatinine 1.1 Creat Clearance w eGFR > 60 POC Glucometer Random Glucose 150 H Hemoglobin A1c % 9.0 H D Calcium 8.9 Phosphorus 2.9 Magnesium 2.0 D Total Bilirubin 0.5 D AST 9 L ALT 20 Alkaline Phosphatase 64 Total Protein 6.6 Albumin 3.6 10/11/17 10/11/17 10/11/17 11:40 17:48 22:26 WBC RBC Hgb Hct MCV MCH MCHC RDW Plt Count MPV Neutrophils % Lymphocytes % Monocytes % Eosinophils % Basophils % Sodium Potassium Chloride Carbon Dioxide Anion Gap BUN Creatinine Creat Clearance w eGFR POC Glucometer 264 248 221 Random Glucose Hemoglobin A1c % Calcium Phosphorus Magnesium Total Bilirubin AST ALT Alkaline Phosphatase Total Protein Albumin 10/11/17 23:37 WBC RBC Hgb Hct MCV MCH MCHC RDW Plt Count MPV Neutrophils % Lymphocytes % Monocytes % Eosinophils % Basophils % Sodium 137 Potassium 4.7 Chloride 101 Carbon Dioxide 28 Anion Gap 8 BUN 29 H Creatinine 1.2 Creat Clearance w eGFR POC Glucometer Random Glucose 250 H D Hemoglobin A1c % Calcium 9.0 Phosphorus Magnesium Total Bilirubin AST ALT Alkaline Phosphatase Total Protein Albumin Active Medications Generic Name Dose Route Start Last Admin Trade Name [place] PRN Reason Stop Dose Admin Acetaminophen 650 mg 10/11/17 08:51 10/11/17 13:31 Tylenol - PO 650 mg Q6H PRN Administration FEVER OR PAIN Amlodipine Besylate 10 mg 10/11/17 10:00 10/11/17 12:23 Norvasc - PO 10 mg DAILY HUGO Administration Aspirin 81 mg 10/11/17 22:00 10/11/17 22:23 Asa - PO 81 mg HS HUGO Administration Atorvastatin Calcium 10 mg 10/11/17 22:00 10/11/17 22:22 Lipitor - PO 10 mg HS HUGO Administration Carvedilol 25 mg 10/11/17 10:00 10/11/17 22:22 Coreg - PO 25 mg BID HUGO Administration Docusate Sodium 100 mg 10/11/17 10:00 10/11/17 11:15 Colace - PO 100 mg DAILY HUGO Administration Duloxetine HCl 20 mg 10/11/17 10:00 10/11/17 22:23 Cymbalta - PO 20 mg BID HUGO Administration Heparin Sodium (Porcine) 5,000 unit 10/11/17 22:00 10/11/17 22:22 Heparin - SQ 5,000 unit BID HUGO Administration Hydralazine HCl 25 mg 10/11/17 10:00 10/11/17 22:23 Apresoline - PO 25 mg BID HUGO Administration Vancomycin HCl 1,000 mg/ 250 mls @ 166.667 mls/hr 10/11/17 11:00 10/11/17 22: 24 Dextrose IVPB 166.667 mls/hr Q12H HUGO Administration Protocol Meropenem 500 mg in 10 mls @ 120 mls/hr 10/11/17 10:30 10/12/17 01:47 Merrem (Restricted To Id) - IVPUSH 120 mls/hr Q8H-IV HUGO Administration Insulin Aspart 1 vial 10/11/17 07:00 10/11/17 22:28 Novolog Vial Sliding Scale - SQ 4 units ACHS HUOG Administration Protocol Mycophenolate Sodium 360 mg 10/11/17 10:00 10/11/17 22:22 Mycophenolic Acid PO 360 mg BID HUGO Administration Polyethylene Glycol 17 gm 10/12/17 10:00 Miralax (For Daily Use) - PO DAILY HUGO Prednisone 5 mg 10/11/17 10:00 10/11/17 11:14 Deltasone - PO 5 mg DAILY HUGO Administration Senna 1 tab 10/11/17 12:00 10/11/17 22:23 Senna - PO 1 tab HS HUGO Administration Tacrolimus 1 mg 10/11/17 10:00 10/11/17 22:24 Prograf PO 1 mg BID HUGO Administration Tamsulosin HCl 0.8 mg 10/11/17 22:00 10/11/17 22:23 Flomax - PO 0.8 mg HS HUGO Administration Blood cultures pending Imaging: CT abdomen/pelvis (10/10) - 1. Nonspecific nodular soft tissue in the anterior wall overlying the left pelvis measuring 4.5 x 2.1 cm may be infectious phlegmon in the appropriate clinical setting. Clinical correlation and clinical follow-up to resolution is recommended to exclude other processes, including mass. 2. Status post right nephrectomy and right pelvic transplant kidney. Moderate hydronephrosis of the transplanted right kidney with dilatation of the ureter up to its insertion in the right lateral wall of the urinary bladder. 3. A 2.1 x 2.1 cm left adrenal gland nodule is likely an adenoma. 4. Subsegmental dependent atelectasis in both lung bases. 5. Multichamber cardiomegaly with extensive coronary artery calcific atherosclerosis and aortic valve calcification. Please correlate with echocardiogram for aortic stenosis. Renal U/S pending ASSESSMENT/PLAN: 77 yo man w/ pmh of IDDM2, HTN, CAD, multiple UTIs w/ ESBLSs, s/p R renal transplant for ESRD in 2008, who was sent to ED due to one week of painful, worsening LLQ abdominal abscess. 1. Abdominal Abscess -> CT abdomen/pelvis + for nodular soft tissue mass (4.5 x 2.1) in anterior LLQ wall. Prior Hx of ESBL. Possible I+D this AM. - Day 2 of Vanc/Meropenem. Clindamycin, ertapenem d/c'ed per ID - F/u blood, wound cultures - I+D per surgical team this AM. Patient counseled on importance, agreeable. If drained, send cultures. F/u w/ surgery on current plan. - Vanc trough 17.3 in AM. Vanc dose adjusted to 1250 mg daily by ID team. - f/u CBC - Trend fever curve, WBC count, infectious symptoms - ID following. Recs greatly appreciated 2. DM - A1C today 9.0, down from 11 in 2016. Reports taking levemir 5 units at bedtime, however PCP contacted and only Lantus prescribed for glucose control. Will reconfirm dose/meds in AM. - BGMs, ACHS - ISS - Can start levemir 5units qHs in addition to ISS and reconfirm tomorrow 3. Kidney Transplant - CT scan notable for hydronephrosis of new kidney, not present on imaging in 2016. Nephrology following - Continue home tacro, cellcept and prednisone at home doses - Trend BUN/Cr 4. Urinary Retention/BPH - Hx of BPH. Monahan placed yesterday due to post-void residual 250 ml, d/c'ed this AM. Hematuria reported by nursing overnight. No further hematuria in AM. - Monahan d/c'ed this AM per recs by Dr. Jules - Monitor for further signs of dysuria, retention, dribbing, hematuria - Flomax 0.8 mg 5. HTN - Home BP meds confirmed with PCP. - Continue home BP meds - Hydralazine 25mg BID, Coreg 25mg BID, Norvasc 10mg daily - Monitor BP q4H 6. Prior Hx of CAD - Continue home ASA 81mg daily, Coreg 25mg BID, lipitor 10mg daily 7. 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 Constipation - Senna, colace, miralax - F/u bowel function/ number of movements FEN: Fluids: PO intake Electrolytes: Trend BUN/Cr, monitor lytes Nutrition: Renal diet PPX: - SubQ Heparin 5000u BID Plan discussed w/ attending, Dr. Bessy Meneses, PGY1 Visit type - Emergency Visit Emergency Visit: No - New Patient This patient is new to me today: No - Critical Care Critical Care patient: No
[2017-10-12] MEDS: INSULIN SLIDING SCALE (NOVOLOG) 1 VIAL SQ SCH ×4 (06:38→22:26)
[2017-10-12] MEDS ORDERED: INSULIN (NOVOLOG) ASPART 100 UNITS/ML 10ML VIAL ONE ×3 (06:56→22:18)
[2017-10-12 08:28] LABS: BASOPHIL 0.4 % (0-2.0); EOSINOPHIL 2.3 % (0-4.5); MCH 28.9 pg (25.7-33.7); MCHC 32.5 g/dl (32.0-35.9); MEAN CELL VOLUME 88.9 fl (80-96); MEAN PLT VOLUME 8.5 fl (7.5-11.1); NEUTROPHILS 66.7 % (42.8-82.8); PLATELET COUNT 210 K/MM3 (134-434); RDW 14.8 % (11.9-15.9); WHITE BLOOD COUNT 9.9 K/mm3 (4.0-10.0)
--- NOTE | 2017-10-12 08:31 | PN ---
Teaching Attending Note Name of Resident: Vega Meneses ATTENDING PHYSICIAN STATEMENT I saw and evaluated the patient. I reviewed the resident's note and discussed the case with the resident. I agree with the resident's findings and plan as documented. SUBJECTIVE: Patient is feeling better. No fever or chills, no shortness of breath. OBJECTIVE: Vital Signs Temperature 97.9 F 10/12/17 07:18 Pulse Rate 61 10/12/17 07:18 Respiratory Rate 17 10/12/17 07:18 Blood Pressure 132/82 10/12/17 07:18 O2 Sat by Pulse Oximetry (%) 95 10/12/17 00:38 CBCD WBC 9.1 K/mm3 (4.0-10.0) 10/11/17 06:30 RBC 4.63 M/mm3 (4.00-5.60) 10/11/17 06:30 Hgb 13.3 GM/dL (11.7-16.9) 10/11/17 06:30 Hct 41.3 % (35.4-49) 10/11/17 06:30 MCV 89.3 fl (80-96) 10/11/17 06:30 MCHC 32.2 g/dl (32.0-35.9) 10/11/17 06:30 RDW 14.7 % (11.9-15.9) 10/11/17 06:30 Plt Count 227 K/MM3 (134-434) 10/11/17 06:30 MPV 8.3 fl (7.5-11.1) 10/11/17 06:30 CMP Sodium 137 mmol/L (136-145) 10/11/17 23:37 Potassium 4.7 mmol/L (3.5-5.1) 10/11/17 23:37 Chloride 101 mmol/L (98-107) 10/11/17 23:37 Carbon Dioxide 28 mmol/L (21-32) 10/11/17 23:37 Anion Gap 8 (8-16) 10/11/17 23:37 BUN 29 mg/dL (7-18) H 10/11/17 23:37 Creatinine 1.2 mg/dL (0.7-1.3) 10/11/17 23:37 Creat Clearance w eGFR > 60 (>60) 10/11/17 06:30 Random Glucose 250 mg/dL (74-106) H D 10/11/17 23:37 Calcium 9.0 mg/dL (8.5-10.1) 10/11/17 23:37 Total Bilirubin 0.5 mg/dL (0.2-1.0) D 10/11/17 06:30 AST 9 U/L (15-37) L 10/11/17 06:30 ALT 20 U/L (12-78) 10/11/17 06:30 Alkaline Phosphatase 64 U/L (45-117) 10/11/17 06:30 Total Protein 6.6 g/dl (6.4-8.2) 10/11/17 06:30 Albumin 3.6 g/dl (3.4-5.0) 10/11/17 06:30 Current Medications Generic Name Dose Route Start Last Admin Trade Name Freq PRN Reason Stop Dose Admin Acetaminophen 650 mg 10/11/17 08:51 10/11/17 13:31 Tylenol - PO 650 mg Q6H PRN Administration FEVER OR PAIN Amlodipine Besylate 10 mg 10/11/17 10:00 10/11/17 12:23 Norvasc - PO 10 mg DAILY HUGO Administration Aspirin 81 mg 10/11/17 22:00 10/11/17 22:23 Asa - PO 81 mg HS HUGO Administration Atorvastatin Calcium 10 mg 10/11/17 22:00 10/11/17 22:22 Lipitor - PO 10 mg HS HUGO Administration Carvedilol 25 mg 10/11/17 10:00 10/11/17 22:22 Coreg - PO 25 mg BID HUGO Administration Docusate Sodium 100 mg 10/11/17 10:00 10/11/17 11:15 Colace - PO 100 mg DAILY HUGO Administration Duloxetine HCl 20 mg 10/11/17 10:00 10/11/17 22:23 Cymbalta - PO 20 mg BID HUGO Administration Heparin Sodium (Porcine) 5,000 unit 10/11/17 22:00 10/11/17 22:22 Heparin - SQ 5,000 unit BID HUGO Administration Hydralazine HCl 25 mg 10/11/17 10:00 10/11/17 22:23 Apresoline - PO 25 mg BID HUGO Administration Vancomycin HCl 1,000 mg/ 250 mls @ 166.667 mls/hr 10/11/17 11:00 10/11/17 22: 24 Dextrose IVPB 166.667 mls/hr Q12H HUOG Administration Protocol Meropenem 500 mg in 10 mls @ 120 mls/hr 10/11/17 10:30 10/12/17 01:47 Merrem (Restricted To Id) - IVPUSH 120 mls/hr Q8H-IV HUGO Administration Insulin Aspart 1 vial 10/11/17 07:00 10/12/17 06:38 Novolog Vial Sliding Scale - SQ Not Given ACHS HUGO Protocol Mycophenolate Sodium 360 mg 10/11/17 10:00 10/11/17 22:22 Mycophenolic Acid PO 360 mg BID HUGO Administration Polyethylene Glycol 17 gm 10/12/17 10:00 Miralax (For Daily Use) - PO DAILY HUGO Prednisone 5 mg 10/11/17 10:00 10/11/17 11:14 Deltasone - PO 5 mg DAILY HUGO Administration Senna 1 tab 10/11/17 12:00 10/11/17 22:23 Senna - PO 1 tab HS HUGO Administration Tacrolimus 1 mg 10/11/17 10:00 10/11/17 22:24 Prograf PO 1 mg BID HUGO Administration Tamsulosin HCl 0.8 mg 10/11/17 22:00 10/11/17 22:23 Flomax - PO 0.8 mg HS HUGO Administration Home Medications Medication Instructions Recorded Amlodipine Besylate [Norvasc -] 10 mg PO DAILY 05/17/17 Aspirin [Jena Chewable Aspirin] 81 mg PO HS 05/17/17 Atorvastatin Ca [Lipitor] 10 mg PO HS 05/17/17 Carvedilol [Coreg -] 25 mg PO BID 05/17/17 Docusate Sodium [Colace -] 100 mg PO DAILY 05/17/17 Duloxetine HCl [Cymbalta] 20 mg PO BID 05/17/17 Hydralazine HCl [Apresoline -] 25 mg PO BID 05/17/17 Mycophenolate Sodium [Myfortic] 360 mg PO BID 05/17/17 Prednisone [Deltasone -] 5 mg PO DAILY 05/17/17 Tacrolimus Anhydrous [Prograf] 1 mg PO BID 05/17/17 Tamsulosin HCl [Flomax] 0.4 mg PO HS 05/17/17 Insulin (Novolog) [Novolog -] 15 units SQ 0700 units 05/20/17 Insulin Sliding Scale [Novolog 0 vial SQ ACHS units 05/20/17 Vial Sliding Scale -] Microbiology 10/10/17 15:12 Blood - Peripheral Venous Blood Culture - Preliminary NO GROWTH OBTAINED AFTER 24 HOURS, INCUBATION TO CONTINUE FOR 4 DAYS. 10/10/17 15:12 Blood - Peripheral Venous Blood Culture - Preliminary NO GROWTH OBTAINED AFTER 24 HOURS, INCUBATION TO CONTINUE FOR 4 DAYS. PE: Abdomen: decreased erythema with cellulitis improving. rest of PE per resident's note. ASSESSMENT AND PLAN: 76 y/o gentleman with h/o HTN, ESRD s/p renal transplant in 2008 , IDDM , CAD s/ p CABG recurrent UTIs , h/o DVT s/p SVC filter, recurrent falls , UTIs with ESBL and E faecalis , thumb OM and other medical problems who presented with pain and erythema on abd wall and was found to have cellulitis with an abscess formation. # Acute abdominal wall cellulitis improving : leukocytosis 11.7-->9.0 improving , on Abx IV Merepenem and Vanco.to continue as per ID. follow blood cx , so far no growths. No abscess noted on CT scan. Surgery input appreciated. vanco trough before morning dose # ESRD s/p renal tx. stable Cr at base line. CT shows hydronephrosis of transplanted kidney. This is new compared to US form 2016. cont tacrulimus, cellcept , and prednisone. #Hx of DM :On levemir only 5 units HS continue , with SSI ,follow A1c ( 11 in 2015) # H/o HTN: continue meds, # CAD: s/p CABG and stents. cont ASA and statin # h/o DVT : has IVC filter DVT PX : add heparin sq
--- NOTE | 2017-10-12 08:44 | CON.GU ---
Consult Consult Specialty:: urology Referred by:: Ana Reason for Consultation:: hydronephrosis of transplanted kidney - History of Present Illness Chief Complaint: hydronephrosis of transplant kidney History of Present Illness: Patient with left lower quadrant abdominal abscess. Patient with history of renal transplant. Patient with mild to moderate hydronephrosis of transplanted kidney. Patient has mild to moderate symptoms of prostatism. He is currently with a rodriguez catheter but denies urinary retention. Patient denies uti's or gross hematuria. - History Source History Provided By: Patient Limitations to Obtaining History: No Limitations - Past Medical History Cardio/Vascular: Yes: CAD (CABG), HTN, Other (PAD, heel osteo in 04/05) Renal/: Yes: Renal Failure, Renal Inusuff, Hemodialysis (in past prior to renal transplant 2008), Other (S/P Kidney tranplant 2008. 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) Endocrine: Yes: Diabetes Mellitus - Past Surgical History Past Surgical History: Yes: AV Fistula/Graft (right upper arm), CABG, Kidney Transplant (right 2009) - Alcohol/Substance Use Hx Alcohol Use: No - Smoking History Smoking history: Never smoked Have you smoked in the past 12 months: No Aproximately how many cigarettes per day: 0 - Social History Usual Living Arrangement: Alone ADL: Support Services History of Recent Travel: No Home Medications - Allergies Allergies/Adverse Reactions: Allergies Allergy/AdvReac Type Severity Reaction Status Date / Time No Known Drug Allergies Allergy Verified 10/10/17 16:57 - Home Medications Home Medications: Ambulatory Orders Amlodipine Besylate [Norvasc -] 10 mg PO DAILY 05/17/17 Aspirin [Jena Chewable Aspirin] 81 mg PO HS 05/17/17 Atorvastatin Ca [Lipitor] 10 mg PO HS 05/17/17 Carvedilol [Coreg -] 25 mg PO BID 05/17/17 Docusate Sodium [Colace -] 100 mg PO DAILY 05/17/17 Duloxetine HCl [Cymbalta] 20 mg PO BID 05/17/17 Hydralazine HCl [Apresoline -] 25 mg PO BID 05/17/17 Mycophenolate Sodium [Myfortic] 360 mg PO BID 05/17/17 Prednisone [Deltasone -] 5 mg PO DAILY 05/17/17 Tacrolimus Anhydrous [Prograf] 1 mg PO BID 05/17/17 Tamsulosin HCl [Flomax] 0.4 mg PO HS 05/17/17 Insulin (Novolog) [Novolog -] 15 units SQ 0700 units 05/20/17 Insulin Sliding Scale [Novolog Vial Sliding Scale -] 0 vial SQ ACHS units 05/20 Physical Exam- Vital Signs: Vital Signs Temperature 97.9 F 10/12/17 07:18 Pulse Rate 61 10/12/17 07:18 Respiratory Rate 17 10/12/17 07:18 Blood Pressure 132/82 10/12/17 07:18 O2 Sat by Pulse Oximetry (%) 95 10/12/17 00:38 Constitutional: Yes: Well Nourished, No Distress, Calm Eyes: Yes: WNL, Conjunctiva Clear, EOM Intact HENT: Yes: WNL, Atraumatic, Normocephalic Neck: Yes: WNL, Supple, Trachea Midline Respiratory: Yes: WNL, Regular Gastrointestinal: Yes: WNL, Normal Bowel Sounds, Soft, Other (left lower quadrant abscess with mild purulent drainage) Renal/: Yes: WNL Kidneys: Yes: WNL Pelvis: Yes: WNL, Bladder Non Palpable Testicles: Yes: WNL Scrotum: Yes: WNL Penis: Yes: Other (rodriguez draining clear urine) Labs: CBC, BMP 10/12/17 07:30 Imaging - Results Cat Scan: Report Reviewed Ultrasound: Report Reviewed Assessment/Plan imp mild hydronephrosis of transplanted kidney with stable/normal renal function bph plan Patient is expected to have mild hydronephrosis of transplanted kidney due to ureteral reflux. The tranplanted ureter does not have a valve mechanism meaning that the intramural normal tunneling of the ureter is absent. Since his creatinine is normal and he is one flomax 0.8 mg daily normal interval check of creatinine is all that is needed. There is no indication for ureteral stent placement. The rodriguez should be removed as soon as possible in order to avoid uti complication
[2017-10-12 08:55] LABS: ANION GAP 8 (8-16); CALCIUM 8.3 mg/dL (8.5-10.1); CO2 26 mmol/L (21-32); GLUCOSE,RANDOM 139 mg/dL (74-106)
[2017-10-12 08:58] LABS: CREATININE 1.1 mg/dL (0.7-1.3)
--- NOTE | 2017-10-12 11:10 | PN ---
Physical Exam: SUBJECTIVE: Patient seen and examined. He is feeling good today. He states that the abdominal pain improved. He denies fever, chills, nausea, vomiting, diarrhea. OBJECTIVE: Vital Signs Period Temp Pulse Resp BP Sys/Mendoza Pulse Ox Last 24 Hr 97.8 F-98.7 F 61-79 17-20 115-160/40-82 95-95 GENERAL: The patient is awake, alert, and fully oriented, in no acute distress. HEAD: Normal with no signs of trauma. EYES: extraocular movements intact, sclera anicteric, conjunctiva clear ENT: oropharynx clear without exudates, moist mucous membranes. NECK: Trachea midline, full range of motion, supple. LUNGS: Breath sounds equal, clear to auscultation bilaterally, no wheezes, no crackles, no accessory muscle use. HEART: Regular rate and rhythm, S1, S2, systolic murmur over right second intercostal space and left sternal border, no rub or gallop. ABDOMEN: Soft, nontender, nondistended, normoactive bowel sounds, no guarding, no rebound, no hepatosplenomegaly, no masses. EXTREMITIES: 2+ pulses, warm, well-perfused, no edema. NEUROLOGICAL: Normal speech, gait not observed. PSYCH: Normal mood, normal affect. SKIN: Warm, dry, normal turgor, no rashes or lesions noted Laboratory Results - last 24 hr 10/11/17 10/11/17 10/11/17 06:30 11:40 17:48 WBC RBC Hgb Hct MCV MCH MCHC RDW Plt Count MPV Neutrophils % Lymphocytes % Monocytes % Eosinophils % Basophils % Sodium Potassium Chloride Carbon Dioxide Anion Gap BUN Creatinine POC Glucometer 264 248 Random Glucose Hemoglobin A1c % 9.0 H D Calcium Vancomycin Pre-Dose 10/11/17 10/11/17 10/12/17 22:26 23:37 06:32 WBC RBC Hgb Hct MCV MCH MCHC RDW Plt Count MPV Neutrophils % Lymphocytes % Monocytes % Eosinophils % Basophils % Sodium 137 Potassium 4.7 Chloride 101 Carbon Dioxide 28 Anion Gap 8 BUN 29 H Creatinine 1.2 POC Glucometer 221 127 Random Glucose 250 H D Hemoglobin A1c % Calcium 9.0 Vancomycin Pre-Dose 10/12/17 10/12/17 10/12/17 07:30 07:30 09:56 WBC 9.9 RBC 4.27 Hgb 12.4 Hct 38.0 MCV 88.9 MCH 28.9 MCHC 32.5 RDW 14.8 Plt Count 210 MPV 8.5 Neutrophils % 66.7 Lymphocytes % 21.2 D Monocytes % 9.4 Eosinophils % 2.3 Basophils % 0.4 Sodium 137 Potassium 4.5 Chloride 103 Carbon Dioxide 26 Anion Gap 8 BUN 29 H Creatinine 1.1 POC Glucometer Random Glucose 139 H D Hemoglobin A1c % Calcium 8.3 L Vancomycin Pre-Dose 17.365 H* Active Medications Generic Name Dose Route Start Last Admin Trade Name Freq PRN Reason Stop Dose Admin Acetaminophen 650 mg 10/11/17 08:51 10/11/17 13:31 Tylenol - PO 650 mg Q6H PRN Administration FEVER OR PAIN Amlodipine Besylate 10 mg 10/11/17 10:00 10/11/17 12:23 Norvasc - PO 10 mg DAILY HUGO Administration Aspirin 81 mg 10/11/17 22:00 10/11/17 22:23 Asa - PO 81 mg HS HUGO Administration Atorvastatin Calcium 10 mg 10/11/17 22:00 10/11/17 22:22 Lipitor - PO 10 mg HS HUGO Administration Carvedilol 25 mg 10/11/17 10:00 10/11/17 22:22 Coreg - PO 25 mg BID HUGO Administration Docusate Sodium 100 mg 10/11/17 10:00 10/11/17 11:15 Colace - PO 100 mg DAILY HUGO Administration Duloxetine HCl 20 mg 10/11/17 10:00 10/11/17 22:23 Cymbalta - PO 20 mg BID HUGO Administration Heparin Sodium (Porcine) 5,000 unit 10/11/17 22:00 10/11/17 22:22 Heparin - SQ 5,000 unit BID HUGO Administration Hydralazine HCl 25 mg 10/11/17 10:00 10/11/17 22:23 Apresoline - PO 25 mg BID HUGO Administration Vancomycin HCl 1,000 mg/ 250 mls @ 166.667 mls/hr 10/11/17 11:00 10/11/17 22: 24 Dextrose IVPB 166.667 mls/hr Q12H HUGO Administration Protocol Meropenem 500 mg in 10 mls @ 120 mls/hr 10/11/17 10:30 10/12/17 01:47 Merrem (Restricted To Id) - IVPUSH 120 mls/hr Q8H-IV HUGO Administration Insulin Aspart 1 vial 10/11/17 07:00 10/12/17 06:38 Novolog Vial Sliding Scale - SQ Not Given ACHS [facility] Protocol Mycophenolate Sodium 360 mg 10/11/17 10:00 10/11/17 22:22 Mycophenolic Acid PO 360 mg BID HUGO Administration Polyethylene Glycol 17 gm 10/12/17 10:00 Miralax (For Daily Use) - PO DAILY HUGO Prednisone 5 mg 10/11/17 10:00 10/11/17 11:14 Deltasone - PO 5 mg DAILY HUGO Administration Senna 1 tab 10/11/17 12:00 10/11/17 22:23 Senna - PO 1 tab HS HUGO Administration Tacrolimus 1 mg 10/11/17 10:00 10/11/17 22:24 Prograf PO 1 mg BID HUGO Administration Tamsulosin HCl 0.8 mg 10/11/17 22:00 10/11/17 22:23 Flomax - PO 0.8 mg HS HUGO Administration ASSESSMENT/PLAN: The pt is a 77 year old male with significant PMH of HTN, CABG 4 vessel 2010, CKD, right kidney transplant 2008, IVC filter placed in 2016, osteomyelitis in right thumb, ESBL UTI, DMII who presented to the hospital referred from his PCP for skin abscess on his abdomen. 1CKD 2Right kidney transplant 3abscess 4DM 5HTN 6CAD 7HDL 1 continue current management, stable 2 stable, ciontinue medications Tacrolimus and Mycophenolate, steroids, contacted [facility] transplant center: the pt was last seen by them in Dec 2015, medications hasn't changed. Urology recommendations noted. 3 continue abx: Meropenem, Vancomycin 4 cont ISS 5 cont Norvasc, Coreg, Hydralazine 6 stable, cont Aspirin 7cont Lipitor Dispo: We will continue to follow the patient. Thank you for this consultative opportunity. Problem List - Problems (1) Cellulitis and abscess of other specified site Code(s): L03.818 - CELLULITIS OF OTHER SITES; L02.818 - CUTANEOUS ABSCESS OF OTHER SITES (2) DM2 (diabetes mellitus, type 2) Code(s): E11.9 - TYPE 2 DIABETES MELLITUS WITHOUT COMPLICATIONS (3) ESBL E. 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 - New Patient This patient is new to me today: No - Critical Care Critical Care patient: No - Discharge Referral Referred to [facility] Med P.C[facility] No
--- NOTE | 2017-10-12 11:12 | MSN ---
Progress Note (short form) - Note Progress Note: SUBJECTIVE: Patient was seen and examined at bedside this morning. Last night, nurse reported that patient was slightly agitated. He refused I&D procedure to be performed by Dr. Johnson. Overnight, nurse also noted seeing hematuria in his rodriguez bag. 1/2L bolus of normal saline was given. Patient states that his LLQ abdominal pain has improved since yesterday. Tylenol has provided some relief of his pain. Currently rates pain 7/10 in intensity. This morning, patient states that he is agreeable to having I&D performed or any procedure that the surgery team recommends. Currently denies fever/chills, drainage from site of abscess, nausea, vomiting, diarrhea, chest pain, SOB, or dysuria. Rodriguez was inspected again this morning; observed 50cc of clear yellow urine without irish red blood or blood clots. OBJECTIVE: Vital Signs Temp 97.9 F 10/12/17 07:18 Pulse 61 10/12/17 07:18 Resp 17 10/12/17 07:18 BP 132/82 10/12/17 07:18 Pulse Ox 95 10/12/17 00:38 Intake & Output 10/11/17 10/11/17 10/12/17 11:59 23:59 11:59 Intake Total 575 1025 750 Output Total 420 1600 500 Balance 155 -575 250 Weight 158 lb 5 oz 157 lb 4 oz Intake: IV 300 200 Normal Saline - 500 ml @ 300 200 100 mls/hr IV ASDIR HUGO Rx#:[id number] IVPB 250 250 Oral 575 475 300 Output: Urine 420 1600 500 Rodriguez 1050 500 Void 420 550 Other: Voiding Method Urinal Indwelling Catheter Indwelling Catheter Bowel Movement Yes: large Yes # Bowel Movements 1 Height 5 ft 5 in Body Mass Index (BMI) 26.3 Weight Measurement Method Standing Scale Standing Scale Physical Exam: * General: no acute distress, well-developed, well-nourished * HEENT: normocephalic, atraumatic, PERRLA, EOM intact; no thrush * Cardiovascular: regular rate and rhythm; 3/6 systolic ejection murmur best heard over ÁLVARO border with radiation to carotids; no rubs, gallops * Lungs: mild end-expiratory wheezes heard at the bases b/l; no rales, rhonchi * Abdomen: 3-4cm fluctuant mass with central dark granulation tissue observed in the LLQ, surrounding circumferential erythema, skin is warm and dry without any drainage; normoactive bowel sounds; soft, non-distended; mildly tender to palpation to site of abscess; no guarding or rigidity * Extremities: no peripheral edema; 1+ pulses b/l diffusely * Neuro: AAO x 3; CNII-XII intact without focal neurological deficits; sensation intact; 5/5 muscle strength in UE and LE b/l Current Medications Generic Name Dose Route Start Last Admin Trade Name Freq PRN Reason Stop Dose Admin Acetaminophen 650 mg 10/11/17 08:51 10/11/17 13:31 Tylenol - PO 650 mg Q6H PRN Administration FEVER OR PAIN Amlodipine Besylate 10 mg 10/11/17 10:00 10/12/17 11:22 Norvasc - PO 10 mg DAILY HUGO Administration Aspirin 81 mg 10/11/17 22:00 10/11/17 22:23 Asa - PO 81 mg HS HUGO Administration Atorvastatin Calcium 10 mg 10/11/17 22:00 10/11/17 22:22 Lipitor - PO 10 mg HS HUGO Administration Carvedilol 25 mg 10/11/17 10:00 10/12/17 11:23 Coreg - PO 25 mg BID HUGO Administration Docusate Sodium 100 mg 10/11/17 10:00 10/12/17 11:23 Colace - PO 100 mg DAILY HUGO Administration Duloxetine HCl 20 mg 10/11/17 10:00 10/12/17 11:24 Cymbalta - PO 20 mg BID HUGO Administration Heparin Sodium (Porcine) 5,000 unit 10/11/17 22:00 10/12/17 11:23 Heparin - SQ 5,000 unit BID HUGO Administration Hydralazine HCl 25 mg 10/11/17 10:00 10/12/17 11:23 Apresoline - PO 25 mg BID HUGO Administration Meropenem 500 mg in 10 mls @ 120 mls/hr 10/11/17 10:30 10/12/17 11:25 Merrem (Restricted To Id) - IVPUSH 120 mls/hr Q8H-IV HUGO Administration Vancomycin HCl 1,250 mg/ 250 mls @ 166.667 mls/hr 10/13/17 10:00 Dextrose IVPB DAILY HUGO Protocol Insulin Aspart 1 vial 10/11/17 07:00 10/12/17 06:38 Novolog Vial Sliding Scale - SQ Not Given [facility] Protocol Mycophenolate Sodium 360 mg 10/11/17 10:00 10/12/17 11:26 Mycophenolic Acid PO 360 mg BID HUGO Administration Polyethylene Glycol 17 gm 10/12/17 10:00 10/12/17 11:25 Miralax (For Daily Use) - PO 17 gm DAILY HUGO Administration Prednisone 5 mg 10/11/17 10:00 10/12/17 11:22 Deltasone - PO 5 mg DAILY HUGO Administration Senna 1 tab 10/11/17 12:00 10/11/17 22:23 Senna - PO 1 tab HS HUGO Administration Tacrolimus 1 mg 10/11/17 10:00 10/12/17 11:26 Prograf PO 1 mg BID HUGO Administration Tamsulosin HCl 0.8 mg 10/11/17 22:00 10/11/17 22:23 Flomax - PO 0.8 mg HS HUGO Administration Laboratory Last Values WBC 9.9 K/mm3 (4.0-10.0) 10/12/17 07:30 RBC 4.27 M/mm3 (4.00-5.60) 10/12/17 07:30 Hgb 12.4 GM/dL (11.7-16.9) 10/12/17 07:30 Hct 38.0 % (35.4-49) 10/12/17 07:30 MCV 88.9 fl (80-96) 10/12/17 07:30 MCH 28.9 pg (25.7-33.7) 10/12/17 07:30 MCHC 32.5 g/dl (32.0-35.9) 10/12/17 07:30 RDW 14.8 % (11.9-15.9) 10/12/17 07:30 Plt Count 210 K/MM3 (134-434) 10/12/17 07:30 MPV 8.5 fl (7.5-11.1) 10/12/17 07:30 Neutrophils % 66.7 % (42.8-82.8) 10/12/17 07:30 Lymphocytes % 21.2 % (8-40) D 10/12/17 07:30 Monocytes % 9.4 % (3.8-10.2) 10/12/17 07:30 Eosinophils % 2.3 % (0-4.5) 10/12/17 07:30 Basophils % 0.4 % (0-2.0) 10/12/17 07:30 PT with INR 10.60 SEC (9.98-11.88) 10/10/17 17:00 INR 0.94 (0.82-1.09) 10/10/17 17:00 PTT (Actin FS) 28.0 SECONDS (26.9-34.4) 10/10/17 17:00 Sodium 137 mmol/L (136-145) 10/12/17 07:30 Potassium 4.5 mmol/L (3.5-5.1) 10/12/17 07:30 Chloride 103 mmol/L (98-107) 10/12/17 07:30 Carbon Dioxide 26 mmol/L (21-32) 10/12/17 07:30 Anion Gap 8 (8-16) 10/12/17 07:30 BUN 29 mg/dL (7-18) H 10/12/17 07:30 Creatinine 1.1 mg/dL (0.7-1.3) 10/12/17 07:30 Creat Clearance w eGFR > 60 (>60) 10/11/17 06:30 POC Glucometer 127 UNITS (80-120) 10/12/17 06:32 Random Glucose 139 mg/dL (74-106) H D 10/12/17 07:30 Hemoglobin A1c % 9.0 % (4.8-6.0) H D 10/11/17 06:30 Lactic Acid 1.3 mmol/L (0.4-2.0) 10/10/17 17:00 Calcium 8.3 mg/dL (8.5-10.1) L 10/12/17 07:30 Phosphorus 2.9 mg/dL (2.5-4.9) 10/11/17 06:30 Magnesium 2.0 mg/dL (1.8-2.4) D 10/11/17 06:30 Total Bilirubin 0.5 mg/dL (0.2-1.0) D 10/11/17 06:30 AST 9 U/L (15-37) L 10/11/17 06:30 ALT 20 U/L (12-78) 10/11/17 06:30 Alkaline Phosphatase 64 U/L (45-117) 10/11/17 06:30 Total Protein 6.6 g/dl (6.4-8.2) 10/11/17 06:30 Albumin 3.6 g/dl (3.4-5.0) 10/11/17 06:30 Urine Color Ltyellow 10/10/17 16:57 Urine Appearance Clear 10/10/17 16:57 Urine pH 5.0 (5.0-8.0) 10/10/17 16:57 Ur Specific [place] 1.012 (1.001-1.035) 10/10/17 16:57 Urine Protein Negative (NEGATIVE) 10/10/17 16:57 Urine Glucose (UA) Negative (NEGATIVE) 10/10/17 16:57 Urine Ketones Negative (NEGATIVE) 10/10/17 16:57 Urine Blood Negative (NEGATIVE) 10/10/17 16:57 Urine Nitrite Negative (NEGATIVE) 10/10/17 16:57 Urine Bilirubin Negative (NEGATIVE) 10/10/17 16:57 Urine Urobilinogen Negative mg/dL (0.2-1.0) 10/10/17 16:57 Ur Leukocyte Esterase Negative (NEGATIVE) 10/10/17 16:57 Vancomycin Pre-Dose 17.365 ug/ml (5.0-10.0) H* 10/12/17 09:56 Microbiology 10/10/17 15:12 Blood - Peripheral Venous Blood Culture - Preliminary NO GROWTH OBTAINED AFTER 24 HOURS, INCUBATION TO CONTINUE FOR 4 DAYS. 10/10/17 15:12 Blood - Peripheral Venous Blood Culture - Preliminary NO GROWTH OBTAINED AFTER 24 HOURS, INCUBATION TO CONTINUE FOR 4 DAYS. Assessment/Plan: Patient is a 77 yo male with a significant history of HTN, DM, ESRD s/p renal transplant (2008), CAD s/p CABG, h/o DVT s/p IVC filter, UTIs with ESBL and E. faecalis, thumb osteomyelitis, and recurrent falls who was admitted for a LLQ superficial abdominal abscess. Patient continues to be afebrile and non-septic. 1) LLQ abdominal abscess w/ cellultis * Continue Vancomycin 1,250 @ 250cc/hr, Merepenem 500mg @ 120cc/hr * Vanc trough: 17.3. Vancomycin dose will be adjusted based on ID recs. * Blood cx- preliminary results negative for growth * ID (Dr. Ziegler) following * CT scan abdomen/ pelvis w/out contrast (10/10/17) showed a 4.5 x 2.1cm nodular soft tissue mass in the anterior wall * Decreased marginal area of erythema surrounding abscess. * WBC: 9.9 today * F/u surgery * Yesterday, patient refused I&D with Dr. Johnson. This morning, patient states to medical team that he is agreeable to I&D procedure 2) H/o DM * Patient currently on Novalog sliding scale insulin * Diabetic diet * Hemoglobin A1C stable at 9.0 (decreased from 11.0 in 09/2016) 3) ESRD s/p renal transplant * Renal function normal/stable; Creatinine 1.1 today * CT scan abdomen/pelvis (10/10/17) and transplant kidney U/S (10/11/17) showed mild to moderate hydronephrosis involving a renal transplant with the right upper pelvis * Post void bladder scan showed high residual volume (~230cc) --> rodriguez was initially placed for urinary retention, but now discontinued to minimize risk of UTI complication as patient is immunosuppressed * F/u void trial * Urology (Dr. Chandler) consulted: report that mild to moderate hydronephrosis 2/2 ureteral reflux is normal for a transplanted kidney * Continue home immunosuppresant medications * Tacrolismus 1mg PO BID --> f/u Tacro toxicity level * Mycophenolate 300mg PO BID * Prednisone 5mg PO daily * Nephrology (Dr. Martinez) following for hx of renal transplant 5) Hematuria * Now resolved * Hematuria first noted after rodriguez placement, most likely 2/2 trauma * This morning, 50cc clear yellow urine observed without irish blood or clots * Rodriguez has been d/c * f/u void trial 6) BPH * Continue Flomax 0.8mg PO HS (increased from 0.4mg home medication dose) 7) H/o HTN * Continue home meds * Hydralazine 25mg PO BID * Carvedilol 25mg PO BID * Norvasc 10mg PO daily 8) CAD s/p CABG and stents * Continue home meds * Aspirin 81mg PO daily * Lipitor 10mg PO daily 9) Constipation * Miralax 17g PO daily * Senna 1 tab PO * Colace 100mg PO/daily 10) DVT prophylaxis * Patient has hx of IVC filter * Continue Heparin SQ as patient is at high risk 11) Depression * Continue Cymbalta 20mg BID
[2017-10-12] MEDS ORDERED: PT OWN MED DRAWER 7, Y5N ONE ×3 (11:20→22:20)
[2017-10-12] MEDS: predniSONE 5 MG TABLET (UD) PO SCH (11:22)
[2017-10-12] MEDS: amLODIPine BESYLATE 10 MG TABLET (FP) PO SCH (11:22)
[2017-10-12] MEDS: DOCUSATE SODIUM 100 MG CAPSULE (FP) PO SCH (11:23)
[2017-10-12] MEDS: CARVEDILOL 25 MG TABLET (FP) PO SCH ×2 (11:23→22:26)
[2017-10-12] MEDS: hydrALAZINE HCL 25 MG TABLET (FP) PO SCH ×2 (11:23→22:25)
[2017-10-12] MEDS: HEPARIN NA (PORCINE) 5,000 UNITS/ML 1ML VIAL SQ SCH ×2 (11:23→22:26)
[2017-10-12] MEDS: DULoxetine HCL 20 MG CAPSULE.DR (FP) PO SCH ×2 (11:24→22:25)
[2017-10-12] MEDS: POLYETHYLENE GLYCOL 3350 119 GM BTL PO SCH (11:25)
[2017-10-12] MEDS: TACROLIMUS ANHYDROUS 1 MG CAPSULE PO SCH ×2 (11:26→22:28)
[2017-10-12] MEDS: MYCOPHENOLATE SODIUM 360 MG TABLET.DR PO SCH ×2 (11:26→22:25)
--- NOTE | 2017-10-12 11:46 | PN ---
Teaching Attending Note Name of Resident: Marquise Ramirez ATTENDING PHYSICIAN STATEMENT I saw and evaluated the patient. I reviewed the resident's note and discussed the case with the resident. I agree with the resident's findings and plan as documented. SUBJECTIVE: doing well refused drainage of abscess feels better OBJECTIVE: Vital Signs Period Temp Pulse Resp BP Sys/Mendoza Pulse Ox Last 24 Hr 97.8 F-98.7 F 61-79 17-20 132-160/44-82 95-95 cor-rrr lungs clear abd soft,nt less erythema, necrotic center unchanged ext no edema CBC, BMP 10/12/17 07:30 10/12/17 07:30 Microbiology 10/10/17 15:12 Blood - Peripheral Venous Blood Culture - Preliminary NO GROWTH OBTAINED AFTER 24 HOURS, INCUBATION TO CONTINUE FOR 4 DAYS. 10/10/17 15:12 Blood - Peripheral Venous Blood Culture - Preliminary NO GROWTH OBTAINED AFTER 24 HOURS, INCUBATION TO CONTINUE FOR 4 DAYS. ASSESSMENT AND PLAN: soft tissue abscess of the abdomen discussed with patient the need for drainage of the abscess he is reluctant readjust vancomycin dose continue meropenem contact isolation f/u cultures Problem List - Problems (1) Cellulitis and abscess of other specified site Code(s): L03.818 - CELLULITIS OF OTHER SITES; L02.818 - CUTANEOUS ABSCESS OF OTHER SITES (2) H/O kidney transplant Code(s): Z94.0 - KIDNEY TRANSPLANT STATUS (3) History of MRSA infection Code(s): Z86.14 - PERSONAL HISTORY OF METHICILLIN RESIS STAPH INFECTION (4) ESBL E. coli carrier Code(s): Z22.39 - CARRIER OF OTHER SPECIFIED BACTERIAL DISEASES (5) DM2 (diabetes mellitus, type 2) Code(s): E11.9 - TYPE 2 DIABETES MELLITUS WITHOUT COMPLICATIONS
[2017-10-12] MEDS ORDERED: ACETAMINOPHEN 325 MG TABLET (FP) PO ONE (12:03)
--- NOTE | 2017-10-12 12:10 | PN ---
Teaching Attending Note Name of Resident: Esmer Schaeffer (Nephrology) ATTENDING PHYSICIAN STATEMENT I saw and evaluated the patient. I reviewed the resident's note and discussed the case with the resident. I agree with the resident's findings and plan as documented. Nephrology Pt seen and examined at bedside. He denies fevers or chills. 10/11/17 10/11/17 10/12/17 06:30 23:37 07:30 Creatinine 1.2 1.1 Random Glucose 139 H D Vancomycin Pre-Dose Tacrolimus Pending 10/12/17 09:56 Creatinine Random Glucose Vancomycin Pre-Dose 17.365 H* Tacrolimus cardio s1s2 reg pulm clear GI soft ext neg edema graft soft and non tender, there is bladder distention neuro awake and alert Impression 1. CKD 2. kidney transplant 3. DM 4. hx of syncope 5. HTN 6. hyperlipidemia 7. leukocytosis 8. abdominal wall cellulitis Plan - check prograf level - renal function stable - records reviewed fro [facility] - urology input appreciated - cont prograf and mycophenylate - follow cultures - cont abx Dr Perez
[2017-10-12] MEDS: VANCOMYCIN 1,000 MG in DEXTROSE 5%-WATER - 250 ML IVPB SCH (12:14)
--- NOTE | 2017-10-12 12:37 | PN ---
Physical Exam: SUBJECTIVE: Patient seen and examined. Pt seen by surgery yesterday and refused I&D. No acute events overnight. This am , pt reports decreased pain from site of abscess and denies fevers, chills, chest pain, SOB, nausea, emesis, and dysuria. He does not want to undergo I&D because he believes that the abscess is "very tight," that there won't be enough to drain, and because it appears to be improving on antibiotics alone. Pt states that if after 2 days, it does not improve, he will reconsider getting an I&D. OBJECTIVE: Vital Signs Period Temp Pulse Resp BP Sys/Mendoza Pulse Ox Last 24 Hr 97.8 F-98.7 F 61-79 17-18 132-160/44-82 95-95 GENERAL: The patient is awake, alert, and fully oriented, in no acute distress. HEAD: Normal with no signs of trauma. EYES: PERRL, extraocular movements intact, sclera anicteric, conjunctiva clear. No ptosis. ENT: Ears normal, nares patent, oropharynx clear without exudates, moist mucous membranes. NECK: Trachea midline, full range of motion, supple. LUNGS: Breath sounds equal, clear to auscultation bilaterally, no wheezes, no crackles, no accessory muscle use. HEART: Regular rate and rhythm, S1, S2 without murmur, rub or gallop. ABDOMEN: Soft, nontender, not distended, normoactive bowel sounds, no guarding, no rebound. No hepatomegaly or splenomegaly. 7cm x 4cm area of erythema continuing to recede from surrounding line of demarcation. 3cm x 2cm area of induration within it w/ central necrotic patch. less tender to palpation compared to yesterday, not expressing any drainage. EXTREMITIES: 2+ pulses, warm, well-perfused, no edema. NEUROLOGICAL: Cranial nerves II through XII grossly intact. Normal speech, gait not observed. PSYCH: Normal mood, normal affect. Laboratory Results - last 24 hr 10/11/17 10/11/17 10/11/17 06:30 17:48 22:26 WBC RBC Hgb Hct MCV MCH MCHC RDW Plt Count MPV Neutrophils % Lymphocytes % Monocytes % Eosinophils % Basophils % Sodium Potassium Chloride Carbon Dioxide Anion Gap BUN Creatinine POC Glucometer 248 221 Random Glucose Hemoglobin A1c % 9.0 H D Calcium Vancomycin Pre-Dose 10/11/17 10/12/17 10/12/17 23:37 06:32 07:30 WBC 9.9 RBC 4.27 Hgb 12.4 Hct 38.0 MCV 88.9 MCH 28.9 MCHC 32.5 RDW 14.8 Plt Count 210 MPV 8.5 Neutrophils % 66.7 Lymphocytes % 21.2 D Monocytes % 9.4 Eosinophils % 2.3 Basophils % 0.4 Sodium 137 Potassium 4.7 Chloride 101 Carbon Dioxide 28 Anion Gap 8 BUN 29 H Creatinine 1.2 POC Glucometer 127 Random Glucose 250 H D Hemoglobin A1c % Calcium 9.0 Vancomycin Pre-Dose 10/12/17 10/12/17 10/12/17 07:30 09:56 12:03 WBC RBC Hgb Hct MCV MCH MCHC RDW Plt Count MPV Neutrophils % Lymphocytes % Monocytes % Eosinophils % Basophils % Sodium 137 Potassium 4.5 Chloride 103 Carbon Dioxide 26 Anion Gap 8 BUN 29 H Creatinine 1.1 POC Glucometer 271 Random Glucose 139 H D Hemoglobin A1c % Calcium 8.3 L Vancomycin Pre-Dose 17.365 H* Active Medications Generic Name Dose Route Start Last Admin Trade Name Freq PRN Reason Stop Dose Admin Acetaminophen 650 mg 10/11/17 08:51 10/11/17 13:31 Tylenol - PO 650 mg Q6H PRN Administration FEVER OR PAIN Acetaminophen 650 mg 10/12/17 12:03 Tylenol - PO 10/12/17 12:04 ONCE ONE Amlodipine Besylate 10 mg 10/11/17 10:00 10/12/17 11:22 Norvasc - PO 10 mg DAILY HUGO Administration Aspirin 81 mg 10/11/17 22:00 10/11/17 22:23 Asa - PO 81 mg HS HUGO Administration Atorvastatin Calcium 10 mg 10/11/17 22:00 10/11/17 22:22 Lipitor - PO 10 mg HS HUGO Administration Carvedilol 25 mg 10/11/17 10:00 10/12/17 11:23 Coreg - PO 25 mg BID HUGO Administration Docusate Sodium 100 mg 10/11/17 10:00 10/12/17 11:23 Colace - PO 100 mg DAILY HUGO Administration Duloxetine HCl 20 mg 10/11/17 10:00 10/12/17 11:24 Cymbalta - PO 20 mg BID HUGO Administration Heparin Sodium (Porcine) 5,000 unit 10/11/17 22:00 10/12/17 11:23 Heparin - SQ 5,000 unit BID HUGO Administration Hydralazine HCl 25 mg 10/11/17 10:00 10/12/17 11:23 Apresoline - PO 25 mg BID HUGO Administration Meropenem 500 mg in 10 mls @ 120 mls/hr 10/11/17 10:30 10/12/17 12:14 Merrem (Restricted To Id) - IVPUSH Not Given Q8H-IV HUGO Vancomycin HCl 1,250 mg/ 250 mls @ 166.667 mls/hr 10/13/17 10:00 Dextrose IVPB DAILY [facility] Protocol Insulin Aspart 1 vial 10/11/17 07:00 10/12/17 06:38 Novolog Vial Sliding Scale - SQ Not Given ACHS [facility] Protocol Mycophenolate Sodium 360 mg 10/11/17 10:00 10/12/17 11:26 Mycophenolic Acid PO 360 mg BID HUGO Administration Polyethylene Glycol 17 gm 10/12/17 10:00 10/12/17 11:25 Miralax (For Daily Use) - PO 17 gm DAILY HUGO Administration Prednisone 5 mg 10/11/17 10:00 10/12/17 11:22 Deltasone - PO 5 mg DAILY HUGO Administration Senna 1 tab 10/11/17 12:00 10/11/17 22:23 Senna - PO 1 tab HS HUGO Administration Tacrolimus 1 mg 10/11/17 10:00 10/12/17 11:26 Prograf PO 1 mg BID HUGO Administration Tamsulosin HCl 0.8 mg 10/11/17 22:00 10/11/17 22:23 Flomax - PO 0.8 mg HS HUGO Administration Bcx: no growth for past 24 hours ASSESSMENT/PLAN: 77M w/ significant hx of right kidney transplant in 2008 (on mycophenalate, prednisone, and tracrolimus), IDDM, and 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 #acute soft tissue mass on the LLQ abdomen -no fever overnight, no leukocytosis -area of erthema continuing to recede from line of demarcation and abscess is less painful -continue meropenem -vancomycin changed to 1250mg qd based off of high vanc trough -surgery on board, f/u recs -other medical problems per hospitalist team Plan discussed with attending, Dr. Ziegler. #Dispo: We will continue to follow the patient. Thank you for this consultative opportunity. -Marquise Ramirez MD PGY1 Visit type - Emergency Visit Emergency Visit: Yes ED Registration Date: 10/10/17 Care time: The patient presented to the Emergency Department on the above date and was hospitalized for further evaluation of their emergent condition. - New Patient This patient is new to me today: No - Critical Care Critical Care patient: No
[2017-10-12] MEDS: ACETAMINOPHEN 325 MG TABLET (FP) PO PRN (18:44)
--- NOTE | 2017-10-12 18:50 | PROC ---
Incision and Drainage Indication/Location: left lower quadrant abdominal wall abscess Risks and Benefits Explained: Yes (to patient and daughter) Consent on Chart: Yes (from daughter Marbin, HCP) Betadine cleansed: Yes Anesthesia: 1% Lidocaine w/ Epi (9ml) Blade Size: 15 Drainage: minimal purulent and bloody Irrigated with Normal Saline: No (irrigated with local anesthetic) Iodinated Packin/4 in Sterile Dressing Applied: Yes - Remarks Remarks: shaved some hair from inferior to wound before starting necrotic black central eschar removed; very small cavity below with some purulence - culture sent on swab; mostly necrotic tissue underlying; packed as able with 1/4" iodoform, covered with gauze and tape
--- NOTE | 2017-10-12 18:59 | PN ---
Progress Note (short form) - Note Progress Note: Pt seen and examined in bed with daughter Marbin at bedside, his health care proxy. Pt eating dinner. In better spirits today, more agreeable to cooperating with procedure. Making jokes. No specific complaints. Vital Signs Period Temp Pulse Resp BP Sys/Mendoza Pulse Ox Last 24 Hr 97.8 F-98.7 F 61-76 17-20 132-155/34-82 95-96 PE: LLQ lesion with black necrotic center, unchanged, raised and indurated locally, but with minimal surrounding erythema, further inside ink corbin from yesterday and just barely outside margins of lesion itself - dry, no drainage, mildly tender alert, appears oriented, conversant with daughter and staff moves all limbs, no edema no other obvious rashes or lesions CBC, BMP 10/12/17 07:30 10/12/17 07:30 A/P: LLQ abscess, likely MRSA Discussed with patient and daughter risks, benefits and alternatives of incision and drainage of left abdominal wall abscess, including but not limited to bleeding and infection; alternatives include antibiotics and no surgery - risks of this include sepsis, loss of transplanted kidney, . Daughter desires to proceed with operation - informed consent signed for same. Procedure performed at bedside (see separate note). ID on board, culture now pending continue antibiotics pain meds prn - pt had tylenol just after procedure Patient will need daily wound care with packing changes on discharge - either VNS or family/care providers to learn how to do MD will change tomorrow Dr. Mario Alberto Gray to cover for me until Tuesday. Problem List - Problems (1) Furuncle of abdominal wall Code(s): L02.221 - FURUNCLE OF ABDOMINAL WALL (2) Cellulitis of abdominal wall Code(s): L03.311 - CELLULITIS OF ABDOMINAL WALL (3) History of MRSA infection Code(s): Z86.14 - PERSONAL HISTORY OF METHICILLIN RESIS STAPH INFECTION (4) H/O kidney transplant Code(s): Z94.0 - KIDNEY TRANSPLANT STATUS (5) ESBL E. 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
[2017-10-12] MEDS: SENNOSIDES 8.6MG TABLET (FP) PO SCH (22:25)
[2017-10-12] MEDS: TAMSULOSIN HCL 0.4 MG CAP.ER.24H (FP) PO SCH (22:25)
[2017-10-12] MEDS: ATORVASTATIN CA 10 MG TABLET (FP) PO SCH (22:25)
[2017-10-12] MEDS: ASPIRIN 81 MG CHEWABLE TABLETS PO SCH (22:25)
[2017-10-13] MEDS: MEROPENEM 500 MG PUSH 500 MG/10 ML DISP.SYRIN IVPUSH SCH ×3 (02:30→17:18)
[2017-10-13] MEDS: INSULIN SLIDING SCALE (NOVOLOG) 1 VIAL SQ SCH ×4 (06:14→21:53)
[2017-10-13] MEDS ORDERED: INSULIN (NOVOLOG) ASPART 100 UNITS/ML 10ML VIAL ONE (06:40)
--- NOTE | 2017-10-13 08:03 | PN ---
Progress Note, Physician Chief Complaint: abdominal wall infection History of Present Illness: 77yo male multiple medical problems including DM s/p Debridement of absominal furuncle, no pain reported if the area is not touched. He has been afebrile and cultures are pending - Current Medication List Current Medications: Active Medications Acetaminophen (Tylenol -) 650 mg PO Q6H PRN PRN Reason: FEVER OR PAIN Last Admin: 10/12/17 18:44 Dose: 650 mg Amlodipine Besylate (Norvasc -) 10 mg PO DAILY [facility] Last Admin: 10/12/17 11:22 Dose: 10 mg Aspirin (Asa -) 81 mg PO HS [facility] Last Admin: 10/12/17 22:25 Dose: 81 mg Atorvastatin Calcium (Lipitor -) 10 mg PO HS [facility] Last Admin: 10/12/17 22:25 Dose: 10 mg Carvedilol (Coreg -) 25 mg PO BID [facility] Last Admin: 10/12/17 22:26 Dose: 25 mg Docusate Sodium (Colace -) 100 mg PO DAILY [facility] Last Admin: 10/12/17 11:23 Dose: 100 mg Duloxetine HCl (Cymbalta -) 20 mg PO BID [facility] Last Admin: 10/12/17 22:25 Dose: 20 mg Heparin Sodium (Porcine) (Heparin -) 5,000 unit SQ BID [facility] Last Admin: 10/12/17 22:26 Dose: 5,000 unit Hydralazine HCl (Apresoline -) 25 mg PO BID [facility] Last Admin: 10/12/17 22:25 Dose: 25 mg Meropenem (Merrem (Restricted To Id) -) 500 mg in 10 mls @ 120 mls/hr IVPUSH Q8H-IV [facility] Last Admin: 10/13/17 02:30 Dose: 120 mls/hr Vancomycin HCl 1,250 mg/ (Dextrose) 250 mls @ 166.667 mls/hr IVPB DAILY [facility] PRN Reason: Protocol Insulin Aspart (Novolog Vial Sliding Scale -) 1 vial SQ ACHS [facility] PRN Reason: Protocol Last Admin: 10/13/17 06:14 Dose: Not Given Mycophenolate Sodium (Mycophenolic Acid) 360 mg PO BID [facility] Last Admin: 10/12/17 22:25 Dose: 360 mg Polyethylene Glycol (Miralax (For Daily Use) -) 17 gm PO DAILY [facility] Last Admin: 10/12/17 11:25 Dose: 17 gm Prednisone (Deltasone -) 5 mg PO DAILY [facility] Last Admin: 10/12/17 11:22 Dose: 5 mg Senna (Senna -) 1 tab PO HS [facility] Last Admin: 10/12/17 22:25 Dose: 1 tab Tacrolimus (Prograf) 1 mg PO BID [facility] Last Admin: 10/12/17 22:28 Dose: 1 mg Tamsulosin HCl (Flomax -) 0.8 mg PO HS [facility] Last Admin: 10/12/17 22:25 Dose: 0.8 mg - Objective Vital Signs: Vital Signs Temperature 97.8 F 10/13/17 06:02 Pulse Rate 64 10/13/17 06:02 Respiratory Rate 18 10/13/17 06:02 Blood Pressure 117/41 10/13/17 06:02 O2 Sat by Pulse Oximetry (%) 96 10/12/17 21:00 Vital Signs Period Temp Pulse Resp BP Sys/Mendoza Pulse Ox Last 24 Hr 97.3 F-98.1 F 64-80 18-20 115-155/34-70 96-96 Constitutional: Yes: No Distress, Calm Eyes: Yes: Conjunctiva Clear, EOM Intact HENT: Yes: Atraumatic, Normocephalic Neck: Yes: Supple, Trachea Midline Cardiovascular: Yes: Regular Rate and Rhythm, S1, S2 Respiratory: Yes: Regular, CTA Bilaterally Gastrointestinal: Yes: Normal Bowel Sounds, Soft ...Rectal Exam: Yes: Deferred Genitourinary: No: CVA Tenderness - Left, CVA Tenderness - Right Extremities: No: Cold, Cool Edema: No Peripheral Pulses WNL: Yes Integumentary: Yes: Erythema Wound/Incision: Yes: Clean/Dry, Dressing Removed, Reddened (resolving erythema 1 cm rim around the open crater), Unapproximated, Other (Wound measuremnt: 1.5cm X1cm X 1.2cm clean minimal drainge Dressin/4" iodoform, 2X2" gauze and tape) Neurological: Yes: Alert, Oriented Psychiatric: Yes: Alert, Oriented Labs: CBC, BMP 10/12/17 07:30 10/12/17 07:30 INR, PTT INR 0.94 (0.82-1.09) 10/10/17 17:00 Abnormal Lab Results 10/12/17 10/12/17 07:30 09:56 BUN 29 H Random Glucose 139 H D Calcium 8.3 L Vancomycin Pre-Dose 17.365 H* Microbiology 10/10/17 15:12 Blood - Peripheral Venous Blood Culture - Preliminary NO GROWTH OBTAINED AFTER 48 HOURS, INCUBATION TO CONTINUE FOR 3 DAYS. 10/10/17 15:12 Blood - Peripheral Venous Blood Culture - Preliminary NO GROWTH OBTAINED AFTER 48 HOURS, INCUBATION TO CONTINUE FOR 3 DAYS. Problem List - Problems (1) Furuncle of abdominal wall Assessment/Plan: 77 yo male MMP s/p debridement of LLQ furuncle 10/12, afebrile appreciate ID recommendations, cultures are pending continue antibiotics - will need a home regimen adequate analgesia Dressing done today - wound care with packing changes on discharge VNS or family Wound measuremnt: 1.5cm X1cm X 1.2cm clean minimal drainge Dressin/4" iodoform, 2X2" gauze and tape Code(s): L02.221 - FURUNCLE OF ABDOMINAL WALL (2) Cellulitis and abscess of other specified site Code(s): L03.818 - CELLULITIS OF OTHER SITES; L02.818 - CUTANEOUS ABSCESS OF OTHER SITES (3) History of MRSA infection Code(s): Z86.14 - PERSONAL HISTORY OF METHICILLIN RESIS STAPH INFECTION (4) DM2 (diabetes mellitus, type 2) Code(s): E11.9 - TYPE 2 DIABETES MELLITUS WITHOUT COMPLICATIONS
[2017-10-13] MEDS: predniSONE 5 MG TABLET (UD) PO SCH (10:40)
[2017-10-13] MEDS: CARVEDILOL 25 MG TABLET (FP) PO SCH ×2 (10:40→21:48)
[2017-10-13] MEDS: DOCUSATE SODIUM 100 MG CAPSULE (FP) PO SCH (10:40)
[2017-10-13] MEDS: HEPARIN NA (PORCINE) 5,000 UNITS/ML 1ML VIAL SQ SCH ×2 (10:40→21:50)
[2017-10-13] MEDS: hydrALAZINE HCL 25 MG TABLET (FP) PO SCH ×2 (10:40→21:48)
[2017-10-13] MEDS: amLODIPine BESYLATE 10 MG TABLET (FP) PO SCH (10:40)
[2017-10-13] MEDS: POLYETHYLENE GLYCOL 3350 119 GM BTL PO SCH (10:41)
[2017-10-13] MEDS: DULoxetine HCL 20 MG CAPSULE.DR (FP) PO SCH ×2 (10:41→21:49)
[2017-10-13] MEDS: MYCOPHENOLATE SODIUM 360 MG TABLET.DR PO SCH ×2 (10:42→21:52)
[2017-10-13] MEDS: TACROLIMUS ANHYDROUS 1 MG CAPSULE PO SCH ×2 (10:42→21:53)
[2017-10-13] MEDS: VANCOMYCIN 1,250 MG in DEXTROSE 5%-WATER - 250 ML IVPB SCH (12:10)
--- NOTE | 2017-10-13 14:51 | PN ---
Progress Note, Physician History of Present Illness: Pt seen and examined at bedside. He is awake and alert. He denies fevers or chills. - Current Medication List Current Medications: Active Medications Acetaminophen (Tylenol -) 650 mg PO Q6H PRN PRN Reason: FEVER OR PAIN Last Admin: 10/12/17 18:44 Dose: 650 mg Amlodipine Besylate (Norvasc -) 10 mg PO DAILY [facility] Last Admin: 10/13/17 10:40 Dose: 10 mg Aspirin (Asa -) 81 mg PO HS [facility] Last Admin: 10/12/17 22:25 Dose: 81 mg Atorvastatin Calcium (Lipitor -) 10 mg PO HS [facility] Last Admin: 10/12/17 22:25 Dose: 10 mg Carvedilol (Coreg -) 25 mg PO BID [facility] Last Admin: 10/13/17 10:40 Dose: 25 mg Docusate Sodium (Colace -) 100 mg PO DAILY [facility] Last Admin: 10/13/17 10:40 Dose: 100 mg Duloxetine HCl (Cymbalta -) 20 mg PO BID [facility] Last Admin: 10/13/17 10:41 Dose: 20 mg Heparin Sodium (Porcine) (Heparin -) 5,000 unit SQ BID [facility] Last Admin: 10/13/17 10:40 Dose: 5,000 unit Hydralazine HCl (Apresoline -) 25 mg PO BID [facility] Last Admin: 10/13/17 10:40 Dose: 25 mg Meropenem (Merrem (Restricted To Id) -) 500 mg in 10 mls @ 120 mls/hr IVPUSH Q8H-IV [facility] Last Admin: 10/13/17 10:41 Dose: 120 mls/hr Vancomycin HCl 1,250 mg/ (Dextrose) 250 mls @ 166.667 mls/hr IVPB DAILY [facility] PRN Reason: Protocol Last Admin: 10/13/17 12:10 Dose: 166.667 mls/hr Insulin Aspart (Novolog Vial Sliding Scale -) 1 vial SQ ACHS [facility] PRN Reason: Protocol Last Admin: 10/13/17 12:10 Dose: 4 units Mycophenolate Sodium (Mycophenolic Acid) 360 mg PO BID [facility] Last Admin: 10/13/17 10:42 Dose: 360 mg Polyethylene Glycol (Miralax (For Daily Use) -) 17 gm PO DAILY [facility] Last Admin: 10/13/17 10:41 Dose: 17 gm Prednisone (Deltasone -) 5 mg PO DAILY [facility] Last Admin: 10/13/17 10:40 Dose: 5 mg Senna (Senna -) 1 tab PO [facility] Last Admin: 10/12/17 22:25 Dose: 1 tab Tacrolimus (Prograf) 1 mg PO BID [facility] Last Admin: 10/13/17 10:42 Dose: 1 mg Tamsulosin HCl (Flomax -) 0.8 mg PO [facility] Last Admin: 10/12/17 22:25 Dose: 0.8 mg - Objective Vital Signs: Vital Signs Temperature 99.0 F 10/13/17 13:42 Pulse Rate 70 10/13/17 13:42 Respiratory Rate 20 10/13/17 10:00 Blood Pressure 117/33 10/13/17 13:42 O2 Sat by Pulse Oximetry (%) 96 10/12/17 21:00 Constitutional: Yes: Calm Eyes: Yes: Conjunctiva Clear HENT: Yes: Atraumatic Cardiovascular: Yes: S1, S2 Respiratory: Yes: CTA Bilaterally Gastrointestinal: Yes: Soft Genitourinary: Yes: WNL, Other (graft is soft and non tender) Musculoskeletal: Yes: WNL Edema: No Neurological: Yes: Oriented Psychiatric: Yes: Oriented Labs: CBC, BMP 10/12/17 07:30 10/12/17 07:30 INR, PTT INR 0.94 (0.82-1.09) 10/10/17 17:00 Problem List - Problems (1) Cellulitis of abdominal wall Code(s): L03.311 - CELLULITIS OF ABDOMINAL WALL (2) History of MRSA infection Code(s): Z86.14 - PERSONAL HISTORY OF METHICILLIN RESIS STAPH INFECTION (3) DM2 (diabetes mellitus, type 2) Code(s): E11.9 - TYPE 2 DIABETES MELLITUS WITHOUT COMPLICATIONS (4) ESBL E. coli carrier Code(s): Z22.39 - CARRIER OF OTHER SPECIFIED BACTERIAL DISEASES (5) IDDM (insulin dependent diabetes mellitus) Code(s): E11.9 - TYPE 2 DIABETES MELLITUS WITHOUT COMPLICATIONS; Z79.4 - HOUSING MANAGEMENT OFFICER (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 OF INSULIN (6) Immunocompromised patient Code(s): D84.9 - IMMUNODEFICIENCY, UNSPECIFIED (7) Kidney transplant recipient Code(s): Z94.0 - KIDNEY TRANSPLANT STATUS Assessment/Plan Current Medications Generic Name Dose Route Start Last Admin Trade Name Montyq PRN Reason Stop Dose Admin Acetaminophen 650 mg 10/11/17 08:51 10/12/17 18:44 Tylenol - PO 650 mg Q6H PRN Administration FEVER OR PAIN Amlodipine Besylate 10 mg 10/11/17 10:00 10/13/17 10:40 Norvasc - PO 10 mg DAILY [facility] Administration Aspirin 81 mg 10/11/17 22:00 10/12/17 22:25 Asa - PO 81 mg HS [facility] Administration Atorvastatin Calcium 10 mg 10/11/17 22:00 10/12/17 22:25 Lipitor - PO 10 mg HS [facility] Administration Carvedilol 25 mg 10/11/17 10:00 10/13/17 10:40 Coreg - PO 25 mg BID [facility] Administration Docusate Sodium 100 mg 10/11/17 10:00 10/13/17 10:40 Colace - PO 100 mg DAILY [facility] Administration Duloxetine HCl 20 mg 10/11/17 10:00 10/13/17 10:41 Cymbalta - PO 20 mg BID [facility] Administration Heparin Sodium (Porcine) 5,000 unit 10/11/17 22:00 10/13/17 10:40 Heparin - SQ 5,000 unit BID [facility] Administration Hydralazine HCl 25 mg 10/11/17 10:00 10/13/17 10:40 Apresoline - PO 25 mg BID [facility] Administration Meropenem 500 mg in 10 mls @ 120 mls/hr 10/11/17 10:30 10/13/17 10:41 Merrem (Restricted To Id) - IVPUSH 120 mls/hr Q8H-IV [facility] Administration Vancomycin HCl 1,250 mg/ 250 mls @ 166.667 mls/hr 10/13/17 10:00 10/13/17 12: 10 Dextrose IVPB 166.667 mls/hr DAILY [facility] Administration Protocol Insulin Aspart 1 vial 10/11/17 07:00 10/13/17 12:10 Novolog Vial Sliding Scale - SQ 4 units ACHS [facility] Administration Protocol Mycophenolate Sodium 360 mg 10/11/17 10:00 10/13/17 10:42 Mycophenolic Acid PO 360 mg BID [facility] Administration Polyethylene Glycol 17 gm 10/12/17 10:00 10/13/17 10:41 Miralax (For Daily Use) - PO 17 gm DAILY [facility] Administration Prednisone 5 mg 10/11/17 10:00 10/13/17 10:40 Deltasone - PO 5 mg DAILY [facility] Administration Senna 1 tab 10/11/17 12:00 10/12/17 22:25 Senna - PO 1 tab HS [facility] Administration Tacrolimus 1 mg 10/11/17 10:00 10/13/17 10:42 Prograf PO 1 mg BID [facility] Administration Tamsulosin HCl 0.8 mg 10/11/17 22:00 10/12/17 22:25 Flomax - PO 0.8 mg HS [facility] Administration Laboratory Tests 10/11/17 06:30 Tacrolimus 2.3 Impression 1. CKD 2. kidney transplant 3. DM 4. hx of syncope 5. HTN 6. hyperlipidemia 7. leukocytosis 8. abdominal wall cellulitis Plan - prograf level is low - increase prograf to 1.5 mg in am and 1 mg in pm, spoke to pharmacy and put order in - repeat labs in am - agree with higher dose of flomax as pt did have an elevated PVR - urology input appreciated - cont prograf and mycophenylate - follow cultures - cont abx
[2017-10-13] MEDS ORDERED: PT OWN MED DRAWER 7, Y5N ONE ×2 (17:06→20:11)
--- NOTE | 2017-10-13 17:17 | PN ---
Progress Note (short form) - Note Progress Note: Subjective: no fever or chills . has nopain , no SOB Objective: Vital Signs: Last Vital Signs Temp Pulse Resp BP Pulse Ox 99.0 F 70 20 117/33 98 10/13/17 13:42 10/13/17 13:42 10/13/17 10:00 10/13/17 13:42 10/13/17 09:00 Laboratory Results - last 24 hr 10/11/17 10/12/17 10/12/17 06:30 17:06 22:12 POC Glucometer 240 360 Tacrolimus 2.3 10/13/17 10/13/17 05:46 12:07 POC Glucometer 124 286 Tacrolimus Physical Exam: AAOX3. NAD. CV: RRR, R JVD. 3/6 SM at base and heard fainter at [facility] with radiation to carotids . 2-3 /6 SM at [facility] with radiadtion to axilla . LUngs: CTAB ABd: soft, ND , no TTP on deep palpation. tenderness over LLq wound with packing in it and clean base . surrounding erythema has improved Ext: no edema , minimal scarce hair , smooth skin. DP 1+ b/l A/P 76 y/o gentleman with h/o HTN, ESRD s/p renal transplant in 09 , IDDM , CAD s/p CABG recurrent UTIs , h/o DVT s/p SVC filter, recurrent falls , UTIS with ESBL and E faecalis , thumb OM and other medical problems who presented with pain and erythema on abd wall and was found to have cellulitis with an abscess formation 1- Abd wall celullitits with an abscess: s/p I&D - COnt Abx pending wound cx ( vanco dose adjusted this am ) - d/w Surgeon 2- h/o DM : start levemir HS cont SSI 3- ESRD s/p renal tx . stable Cr at base line . - tacrulimus dose increased - cont prednisone and cellcept 4- CAD: s/p CABG and stents. - COnt ASA and statin 5- h/o DVT : has IVC filter 6- DVT PX : heparin DC pending wound cx Visit type - Emergency Visit Emergency Visit: Yes ED Registration Date: 10/10/17 Care time: The patient presented to the Emergency Department on the above date and was hospitalized for further evaluation of their emergent condition. - New Patient This patient is new to me today: No - Critical Care Critical Care patient: No
[2017-10-13] MEDS: INSULIN DETEMIR 100 UNITS/ML MDV SQ SCH ×2 (18:02→21:51)
[2017-10-13] MEDS: ASPIRIN 81 MG CHEWABLE TABLETS PO SCH (21:48)
[2017-10-13] MEDS: TAMSULOSIN HCL 0.4 MG CAP.ER.24H (FP) PO SCH (21:49)
[2017-10-13] MEDS: ATORVASTATIN CA 10 MG TABLET (FP) PO SCH (21:52)
[2017-10-13] MEDS: SENNOSIDES 8.6MG TABLET (FP) PO SCH (21:54)
[2017-10-14] MEDS ORDERED: PT OWN MED DRAWER 7, Y5N ONE ×2 (00:53→19:36)
[2017-10-14] MEDS: MEROPENEM 500 MG PUSH 500 MG/10 ML DISP.SYRIN IVPUSH SCH ×3 (01:07→10:55)
[2017-10-14] MEDS: INSULIN SLIDING SCALE (NOVOLOG) 1 VIAL SQ SCH ×4 (06:29→22:19)
--- NOTE | 2017-10-14 07:17 | PN ---
Progress Note, Physician Chief Complaint: abdominal wall infection History of Present Illness: 77yo male multiple medical problems including DM s/p Debridement of absominal furuncle, no pain reported if the area is not touched. He has been afebrile and cultures are pending - Current Medication List Current Medications: Active Medications Acetaminophen (Tylenol -) 650 mg PO Q6H PRN PRN Reason: FEVER OR PAIN Last Admin: 10/12/17 18:44 Dose: 650 mg Amlodipine Besylate (Norvasc -) 10 mg PO DAILY [facility] Last Admin: 10/13/17 10:40 Dose: 10 mg Aspirin (Asa -) 81 mg PO HS [facility] Last Admin: 10/13/17 21:48 Dose: 81 mg Atorvastatin Calcium (Lipitor -) 10 mg PO HS [facility] Last Admin: 10/13/17 21:52 Dose: 10 mg Carvedilol (Coreg -) 25 mg PO BID [facility] Last Admin: 10/13/17 21:48 Dose: 25 mg Docusate Sodium (Colace -) 100 mg PO DAILY [facility] Last Admin: 10/13/17 10:40 Dose: 100 mg Duloxetine HCl (Cymbalta -) 20 mg PO BID [facility] Last Admin: 10/13/17 21:49 Dose: 20 mg Heparin Sodium (Porcine) (Heparin -) 5,000 unit SQ BID [facility] Last Admin: 10/13/17 21:50 Dose: 5,000 unit Hydralazine HCl (Apresoline -) 25 mg PO BID [facility] Last Admin: 10/13/17 21:48 Dose: 25 mg Meropenem (Merrem (Restricted To Id) -) 500 mg in 10 mls @ 120 mls/hr IVPUSH Q8H-IV [facility] Last Admin: 10/14/17 01:07 Dose: 120 mls/hr Vancomycin HCl 1,250 mg/ (Dextrose) 250 mls @ 166.667 mls/hr IVPB DAILY [facility] PRN Reason: Protocol Last Admin: 10/13/17 12:10 Dose: 166.667 mls/hr Insulin Aspart (Novolog Vial Sliding Scale -) 1 vial SQ ACHS [facility] PRN Reason: Protocol Last Admin: 10/14/17 06:29 Dose: 2 units Insulin Detemir (Levemir Vial) 5 units SQ HS [facility] Last Admin: 10/13/17 21:51 Dose: 5 units Mycophenolate Sodium (Mycophenolic Acid) 360 mg PO BID [facility] Last Admin: 10/13/17 21:52 Dose: 360 mg Polyethylene Glycol (Miralax (For Daily Use) -) 17 gm PO DAILY [facility] Last Admin: 10/13/17 10:41 Dose: 17 gm Prednisone (Deltasone -) 5 mg PO DAILY [facility] Last Admin: 10/13/17 10:40 Dose: 5 mg Senna (Senna -) 1 tab PO HS [facility] Last Admin: 10/13/17 21:54 Dose: 1 tab Tacrolimus (Prograf) 1 mg PO HS [facility] Last Admin: 10/13/17 21:53 Dose: 1 mg Tacrolimus 1 mg/ Tacrolimus 0. (5 mg) 1.5 mg PO DAILY [facility] Tamsulosin HCl (Flomax -) 0.8 mg PO [facility] Last Admin: 10/13/17 21:49 Dose: 0.8 mg - Objective Vital Signs: Vital Signs Temperature 98.4 F 10/13/17 22:00 Pulse Rate 70 10/13/17 22:00 Respiratory Rate 18 10/13/17 22:00 Blood Pressure 103/45 10/13/17 22:00 O2 Sat by Pulse Oximetry (%) 98 10/13/17 20:31 Vital Signs Period Temp Pulse Resp BP Sys/Mendoza Pulse Ox Last 24 Hr 98.2 F-99.0 F 66-70 18-20 103-132/33-88 98-98 Constitutional: Yes: Well Nourished, No Distress Eyes: Yes: Conjunctiva Clear, EOM Intact HENT: Yes: Atraumatic, Normocephalic Neck: Yes: Supple, Trachea Midline Cardiovascular: Yes: Regular Rate and Rhythm, S1, S2. No: Murmur Respiratory: Yes: Regular, CTA Bilaterally Gastrointestinal: Yes: Normal Bowel Sounds, Soft, Other (wound LLQ) Genitourinary: No: CVA Tenderness - Left, CVA Tenderness - Right Musculoskeletal: No: Muscle Pain, Muscle Weakness Extremities: No: Cool, Cyanosis Wound/Incision: Yes: Clean/Dry, Dressing Removed (remoeved and replaced 1/4 inch iofodoform packing, and 2X2 no cover), Reddened (rim of resolving erythema), Unapproximated Neurological: Yes: Alert, Oriented Psychiatric: Yes: Alert, Oriented Labs: CBC, BMP 10/12/17 07:30 WBC 11.7 ==> 9.1 ==> 9.9 Problem List - Problems (1) Furuncle of abdominal wall Assessment/Plan: 77 yo male MMP s/p debridement of LLQ furuncle 10/12, afebrile tmax 99, wbc now normal 9.9 down from 11.7 appreciate ID recommendations, cultures are pending continue antibiotics - will need a home regimen adequate analgesia Dressing done today - wound care with packing changes on discharge VNS or family Wound measuremnt: 1.5cm X1cm X 1.2cm clean minimal drainge Dressin/" iodoform, 2X2" gauze and tape Code(s): L02.221 - FURUNCLE OF ABDOMINAL WALL (2) Cellulitis and abscess of other specified site Code(s): L03.818 - CELLULITIS OF OTHER SITES; L02.818 - CUTANEOUS ABSCESS OF OTHER SITES (3) History of MRSA infection Code(s): Z86.14 - PERSONAL HISTORY OF METHICILLIN RESIS STAPH INFECTION (4) DM2 (diabetes mellitus, type 2) Code(s): E11.9 - TYPE 2 DIABETES MELLITUS WITHOUT COMPLICATIONS
--- NOTE | 2017-10-14 07:37 | PN ---
Physical Exam: SUBJECTIVE: Patient seen and examined by me this AM - No major overnight events. Pt received I+D at bedside by Dr. Johnson from surgical team. Per surgical team, eschar removed, minimal purulence in cavity noted. Packed with iodoform and gauze and tape applied. Cultures sent. - Pt with no complaints, good appetite, energy and sleep. Denies any fever/ chills, SOB, CP, cough, palpitations, additional rashes, diarrhea, peripheral weakness/numbness. Denies any dysuria or hesistancy and no additional episodes of hematuria noted by pt or nursing staff. Pt urinating freely in bedside urinal. - Spoke with ID team. Presumptive cultures likely MRSA. Will continue IV Abx for 1-2 more days, then discharge w/ PO meds. OBJECTIVE: Vital Signs Period Temp Pulse Resp BP Sys/Mendoza Pulse Ox Last 24 Hr 98.2 F-99.0 F 66-70 18-20 103-132/33-88 98-98 Intake & Output 10/11/17 10/12/17 10/13/17 10/14/17 23:59 23:59 23:59 23:59 Intake Total 2359 085 0420 120 Output Total 2019 1400 1050 Balance -420 -450 970 120 Weight 71.809 kg 71.327 kg 68.096 kg GENERAL: The patient is awake, alert, and fully oriented, in no acute distress. Pleasant man in good spirits. HEAD: NCAT EYES: R pupil minimally reactive, L reactive to light. Extraocular movements intact, sclera anicteric, conjunctiva clear. No ptosis. ENT: Ears normal, nares patent, oropharynx clear without exudates. Poor dentition. Moist mucous membranes. NECK: Trachea midline, supple. No JVD noted. LUNGS: Breath sounds equal, Decreased breath sounds at lung bases. No wheezing or accessory muscle use. HEART: Murmurs unchanged- 3/6 systolic ejection murmur at LUSB and RUSB. 2/6 systolic murmur at apex w/ radiation to axilla. Regular rate and rhythm, S1, S2. ABDOMEN: Open, healing eschar packed with iodoform w/ minimal surrounding erythema in LLQ, w/ gauze and tape applied. Otherwise, Soft, nontender, nondistended, normoactive bowel sounds, w/ no guarding, no rebound. Negative murphys UPPER EXTREMITIES: 2+ pulses, wwp. Still with distended, tortuous R upper arm vein and thrill in cubital fossa from likely prior fistula. LOWER EXTREMITIES: 2+ pulse, wwp. BL anterior healed scars/lesions, no hair on LEs. Trace bruising on anterior R george. PSYCH: Normal mood, normal affect. Interactive, pleasant Laboratory Results - last 24 hr CBC, BMP 10/12/17 07:30 10/11/17 10/13/17 10/13/17 06:30 12:07 17:20 POC Glucometer 286 Random Glucose 410 H* D Tacrolimus 2.3 10/13/17 10/14/17 21:44 06:28 POC Glucometer 229 181 Random Glucose Tacrolimus Active Medications Generic Name Dose Route Start Last Admin Trade Name Freq PRN Reason Stop Dose Admin Acetaminophen 650 mg 10/11/17 08:51 10/12/17 18:44 Tylenol - PO 650 mg Q6H PRN Administration FEVER OR PAIN Amlodipine Besylate 10 mg 10/11/17 10:00 10/13/17 10:40 Norvasc - PO 10 mg DAILY HUGO Administration Aspirin 81 mg 10/11/17 22:00 10/13/17 21:48 Asa - PO 81 mg HS HUGO Administration Atorvastatin Calcium 10 mg 10/11/17 22:00 10/13/17 21:52 Lipitor - PO 10 mg HS HUGO Administration Carvedilol 25 mg 10/11/17 10:00 10/13/17 21:48 Coreg - PO 25 mg BID HUGO Administration Docusate Sodium 100 mg 10/11/17 10:00 10/13/17 10:40 Colace - PO 100 mg DAILY HUGO Administration Duloxetine HCl 20 mg 10/11/17 10:00 10/13/17 21:49 Cymbalta - PO 20 mg BID HUGO Administration Heparin Sodium (Porcine) 5,000 unit 10/11/17 22:00 10/13/17 21:50 Heparin - SQ 5,000 unit BID HUGO Administration Hydralazine HCl 25 mg 10/11/17 10:00 10/13/17 21:48 Apresoline - PO 25 mg BID HUGO Administration Meropenem 500 mg in 10 mls @ 120 mls/hr 10/11/17 10:30 10/14/17 01:07 Merrem (Restricted To Id) - IVPUSH 120 mls/hr Q8H-IV HUGO Administration Vancomycin HCl 1,250 mg/ 250 mls @ 166.667 mls/hr 10/13/17 10:00 10/13/17 12: 10 Dextrose IVPB 166.667 mls/hr DAILY HUGO Administration Protocol Insulin Aspart 1 vial 10/11/17 07:00 10/14/17 06:29 Novolog Vial Sliding Scale - SQ 2 units ACHS HUGO Administration Protocol Insulin Detemir 5 units 10/13/17 18:00 10/13/17 21:51 Levemir Vial SQ 5 units HS HUGO Administration Mycophenolate Sodium 360 mg 10/11/17 10:00 10/13/17 21:52 Mycophenolic Acid PO 360 mg BID HUGO Administration Polyethylene Glycol 17 gm 10/12/17 10:00 10/13/17 10:41 Miralax (For Daily Use) - PO 17 gm DAILY HUGO Administration Prednisone 5 mg 10/11/17 10:00 10/13/17 10:40 Deltasone - PO 5 mg DAILY HUGO Administration Senna 1 tab 10/11/17 12:00 10/13/17 21:54 Senna - PO 1 tab HS HUGO Administration Tacrolimus 1 mg 10/13/17 22:00 10/13/17 21:53 Prograf PO 1 mg HS HUGO Administration Tacrolimus 1 mg/ Tacrolimus 0. 1.5 mg 10/14/17 10:00 5 mg PO DAILY HUGO Tamsulosin HCl 0.8 mg 10/11/17 22:00 10/13/17 21:49 Flomax - PO 0.8 mg HS HUGO Administration Microbiology 10/12/17 18:30 Abscess Gram Stain - Final 10/12/17 18:30 Abscess Wound Culture - Preliminary Presumptive Mrsa (Pbp2a Pos) 10/10/17 15:12 Blood - Peripheral Venous Blood Culture - Preliminary NO GROWTH OBTAINED AFTER 72 HOURS, INCUBATION TO CONTINUE FOR 2 DAYS. 10/10/17 15:12 Blood - Peripheral Venous Blood Culture - Preliminary NO GROWTH OBTAINED AFTER 72 HOURS, INCUBATION TO CONTINUE FOR 2 DAYS. Imaging: CT abdomen/pelvis (10/10) - 1. Nonspecific nodular soft tissue in the anterior wall overlying the left pelvis measuring 4.5 x 2.1 cm may be infectious phlegmon in the appropriate clinical setting. Clinical correlation and clinical follow-up to resolution is recommended to exclude other processes, including mass. 2. Status post right nephrectomy and right pelvic transplant kidney. Moderate hydronephrosis of the transplanted right kidney with dilatation of the ureter up to its insertion in the right lateral wall of the urinary bladder. 3. A 2.1 x 2.1 cm left adrenal gland nodule is likely an adenoma. 4. Subsegmental dependent atelectasis in both lung bases. 5. Multichamber cardiomegaly with extensive coronary artery calcific atherosclerosis and aortic valve calcification. Please correlate with echocardiogram for aortic stenosis. Renal U/S still pending ASSESSMENT/PLAN: 77 yo man w/ pmh of IDDM2, HTN, CAD, multiple UTIs w/ ESBLSs, s/p R renal transplant for ESRD in 2008, who was sent to ED due to one week of painful, worsening LLQ abdominal abscess. LLQ furuncle/healed abscess now with I+D, packed w/ cultures sent. Pt afebrile, w/ no WBC count and no infectious symptoms. 1. Abdominal Abscess -> CT abdomen/pelvis + for nodular soft tissue mass (4.5 x 2.1) in anterior LLQ wall. Prior Hx of ESBL. I+D yesterday by surgical team, lesion healing well. - Day 4 vanc. Meropenem d/c'ed - Blood cultures negative to date, wound culture + for presumptive MRSA - I+D performed yesterday. Minimal purulence, cultures sent - Trend fever curve, WBC count, infectious symptoms - ID following. Recs greatly appreciated - Vanc trough tomorrow AM. Transition to PO possibly tomorrow. 2. DM - A1C today 9.0, down from 11 in 2016. Poor glucose control yesterday on SS (410 in PM 10/13 -> 164 this AM) - BGMs, ACHS - ISS - Started on levemir 5u qHs 3. Kidney Transplant - CT scan notable for hydronephrosis of new kidney, not present on imaging in 2016. Nephrology following - Continue home tacro, cellcept and prednisone at home doses - Trend BUN/Cr - Decrease Norvasc to 5mg per renal 4. Urinary Retention/BPH - Hx of BPH. Rodriguez d/c'ed 10/12, TOV passed. No further episodes of hematuria - Monitor for further signs of dysuria, retention, dribbing, hematuria - Flomax 0.8 mg - No rodriguez unless absolutely necessary, given danger of infxn of transplanted kidney 5. HTN - Home BP meds confirmed with PCP. - decreased norvasc to 5mg per renal - Hydralazine 25mg BID, Coreg 25mg BID - Monitor BP q4H given low systolics, however this has been pt's baseline since admission 6. Prior Hx of CAD - Continue home ASA 81mg daily, Coreg 25mg BID, lipitor 10mg daily 7. 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 Constipation - stooling well. - Senna, colace, miralax - F/u bowel function/ number of movements FEN: Fluids: PO intake Electrolytes: Trend BUN/Cr, monitor lytes Nutrition: Renal diet PPX: - SubQ Heparin 5000u BID Plan discussed w/ attending, Dr. Bessy Meneses, PGY1 Visit type - Emergency Visit Emergency Visit: No - New Patient This patient is new to me today: No - Critical Care Critical Care patient: No
[2017-10-14 08:07] LABS: ANION GAP 8 (8-16); CO2 28 mmol/L (21-32); CREATININE 1.1 mg/dL (0.7-1.3); GLUCOSE,RANDOM 164 mg/dL (74-106)
[2017-10-14] MEDS: VANCOMYCIN 1,250 MG in DEXTROSE 5%-WATER - 250 ML IVPB SCH (10:44)
[2017-10-14] MEDS: hydrALAZINE HCL 25 MG TABLET (FP) PO SCH ×2 (10:44→22:15)
[2017-10-14] MEDS: HEPARIN NA (PORCINE) 5,000 UNITS/ML 1ML VIAL SQ SCH ×2 (10:45→22:17)
[2017-10-14] MEDS: amLODIPine BESYLATE 10 MG TABLET (FP) PO SCH (10:45)
[2017-10-14] MEDS: CARVEDILOL 25 MG TABLET (FP) PO SCH ×2 (10:45→22:16)
[2017-10-14] MEDS: DOCUSATE SODIUM 100 MG CAPSULE (FP) PO SCH (10:45)
[2017-10-14] MEDS: predniSONE 5 MG TABLET (UD) PO SCH (10:45)
[2017-10-14] MEDS: POLYETHYLENE GLYCOL 3350 119 GM BTL PO SCH (10:45)
[2017-10-14] MEDS: MYCOPHENOLATE SODIUM 360 MG TABLET.DR PO SCH ×2 (10:45→22:18)
[2017-10-14] MEDS: DULoxetine HCL 20 MG CAPSULE.DR (FP) PO SCH ×2 (10:46→22:16)
[2017-10-14] MEDS: TACROLIMUS 0.5 MG PO SCH (10:48)
[2017-10-14] MEDS: TACROLIMUS ANHYDROUS 1 MG PO SCH (10:48)
--- NOTE | 2017-10-14 11:00 | PN ---
Progress Note (short form) - Note Progress Note: doing well small abscess opened and drained by surgery on 10/12 spoke with micro wound gram stain GPC clusters culture growing staph coagulase pending Vital Signs Period Temp Pulse Resp BP Sys/Mendoza Pulse Ox Last 24 Hr 98.2 F-99.0 F 66-70 18-18 103-132/33-45 98 cor-rrr lungs clear abd soft, less erythema at abscess site ext no edema CBC, BMP 10/12/17 07:30 10/14/17 06:00 Microbiology 10/10/17 15:12 Blood - Peripheral Venous Blood Culture - Preliminary NO GROWTH OBTAINED AFTER 72 HOURS, INCUBATION TO CONTINUE FOR 2 DAYS. 10/10/17 15:12 Blood - Peripheral Venous Blood Culture - Preliminary NO GROWTH OBTAINED AFTER 72 HOURS, INCUBATION TO CONTINUE FOR 2 DAYS. 10/12/17 18:30 Abscess Gram Stain - Final a/p abdominal wall abscess-improved immunocompromised host-s/p renal transplant history MRSA/resistant Ecoli DM continue vancomycin f/u cultures d/c meropenem Problem List - Problems (1) Cellulitis and abscess of other specified site Code(s): L03.818 - CELLULITIS OF OTHER SITES; L02.818 - CUTANEOUS ABSCESS OF OTHER SITES (2) H/O kidney transplant Code(s): Z94.0 - KIDNEY TRANSPLANT STATUS (3) History of MRSA infection Code(s): Z86.14 - PERSONAL HISTORY OF METHICILLIN RESIS STAPH INFECTION (4) ESBL E. coli carrier Code(s): Z22.39 - CARRIER OF OTHER SPECIFIED BACTERIAL DISEASES (5) DM2 (diabetes mellitus, type 2) Code(s): E11.9 - TYPE 2 DIABETES MELLITUS WITHOUT COMPLICATIONS
--- NOTE | 2017-10-14 13:22 | PN ---
Physical Exam: SUBJECTIVE: Patient seen and examined. He doesn't have any complaints. No overnight events. OBJECTIVE: Vital Signs Period Temp Pulse Resp BP Sys/Mendoza Pulse Ox Last 24 Hr 98.2 F-99.0 F 66-70 18-20 103-132/33-45 98 GENERAL: The patient is awake, alert, and fully oriented, in no acute distress. HEAD: Normal with no signs of trauma. EYES: extraocular movements intact ENT: oropharynx clear without exudates, moist mucous membranes. NECK: Trachea midline, full range of motion, supple. LUNGS: Breath sounds equal, clear to auscultation bilaterally, no wheezes, no crackles, no accessory muscle use. HEART: Regular rate and rhythm, S1, S2 without murmur, rub or gallop. ABDOMEN: Soft, normoactive bowel sounds, no guarding, no rebound, no hepatosplenomegaly, small wound on LLE, dressing applied, small erythema. EXTREMITIES: 2+ pulses, warm, well-perfused, no edema. NEUROLOGICAL: Normal speech, gait not observed. PSYCH: Normal mood, normal affect. SKIN: Warm, dry, normal turgor, no rashes. Laboratory Results - last 24 hr 10/13/17 10/13/17 10/13/17 16:59 17:20 21:44 Sodium Potassium Chloride Carbon Dioxide Anion Gap BUN Creatinine POC Glucometer 413 229 Random Glucose 410 H* D Calcium 10/14/17 10/14/17 10/14/17 06:00 06:28 11:14 Sodium 139 Potassium 4.9 Chloride 103 Carbon Dioxide 28 Anion Gap 8 BUN 30 H Creatinine 1.1 POC Glucometer 181 344 Random Glucose 164 H D Calcium 9.0 Active Medications Generic Name Dose Route Start Last Admin Trade Name Freq PRN Reason Stop Dose Admin Acetaminophen 650 mg 10/11/17 08:51 10/12/17 18:44 Tylenol - PO 650 mg Q6H PRN Administration FEVER OR PAIN Amlodipine Besylate 10 mg 10/11/17 10:00 10/14/17 10:45 Norvasc - PO 10 mg DAILY HUGO Administration Aspirin 81 mg 10/11/17 22:00 10/13/17 21:48 Asa - PO 81 mg HS HUGO Administration Atorvastatin Calcium 10 mg 10/11/17 22:00 10/13/17 21:52 Lipitor - PO 10 mg HS HUGO Administration Carvedilol 25 mg 10/11/17 10:00 10/14/17 10:45 Coreg - PO 25 mg BID HUGO Administration Docusate Sodium 100 mg 10/11/17 10:00 10/14/17 10:45 Colace - PO 100 mg DAILY HUGO Administration Duloxetine HCl 20 mg 10/11/17 10:00 10/14/17 10:46 Cymbalta - PO 20 mg BID HUGO Administration Heparin Sodium (Porcine) 5,000 unit 10/11/17 22:00 10/14/17 10:45 Heparin - SQ 5,000 unit BID HUGO Administration Hydralazine HCl 25 mg 10/11/17 10:00 10/14/17 10:44 Apresoline - PO 25 mg BID HUGO Administration Vancomycin HCl 1,250 mg/ 250 mls @ 166.667 mls/hr 10/13/17 10:00 10/14/17 10: 44 Dextrose IVPB 166.667 mls/hr DAILY HUGO Administration Protocol Insulin Aspart 1 vial 10/11/17 07:00 10/14/17 11:18 Novolog Vial Sliding Scale - SQ 8 units ACHS HUGO Administration Protocol Insulin Detemir 5 units 10/13/17 18:00 10/13/17 21:51 Levemir Vial SQ 5 units HS HUGO Administration Mycophenolate Sodium 360 mg 10/11/17 10:00 10/14/17 10:45 Mycophenolic Acid PO 360 mg BID HUGO Administration Polyethylene Glycol 17 gm 10/12/17 10:00 10/14/17 10:45 Miralax (For Daily Use) - PO 17 gm DAILY HUGO Administration Prednisone 5 mg 10/11/17 10:00 10/14/17 10:45 Deltasone - PO 5 mg DAILY HUGO Administration Senna 1 tab 10/11/17 12:00 10/13/17 21:54 Senna - PO 1 tab HS HUGO Administration Tacrolimus 1 mg 10/13/17 22:00 10/13/17 21:53 Prograf PO 1 mg HS HUGO Administration Tacrolimus 1 mg/ Tacrolimus 0. 1.5 mg 10/14/17 10:00 10/14/17 10:48 5 mg PO 1.5 mg DAILY HUGO Administration Tamsulosin HCl 0.8 mg 10/11/17 22:00 10/13/17 21:49 Flomax - PO 0.8 mg HS HUGO Administration ASSESSMENT/PLAN: The pt is a 77 year old male with significant PMH of HTN, CABG 4 vessel 2010, CKD, right kidney transplant 2008, IVC filter placed in 2016, osteomyelitis in right thumb, ESBL UTI, DMII who presented to the hospital referred from his PCP for skin abscess on his abdomen. 1CKD 2Right kidney transplant 3abscess 4DM 5HTN 6CAD 7HDL 1 continue current management, stable, increased Tacrolimus dose yesterday, adjusted Vanco dose 2 stable, ciontinue medications Tacrolimus and Mycophenolate, steroids, contacted [facility] transplant center: the pt was last seen by them in Dec 2015, medications hasn't changed. Urology recommendations noted. 3 continue abx: Vancomycin 4 cont ISS 5 cont Norvasc, Coreg, Hydralazine 6 stable, cont Aspirin 7cont Lipitor Dispo: We will continue to follow the patient. Thank you for this consultative opportunity. Problem List - Problems (1) Cellulitis and abscess of other specified site Code(s): L03.818 - CELLULITIS OF OTHER SITES; L02.818 - CUTANEOUS ABSCESS OF OTHER SITES (2) DM2 (diabetes mellitus, type 2) Code(s): E11.9 - TYPE 2 DIABETES MELLITUS WITHOUT COMPLICATIONS (3) ESBL E. coli carrier Code(s): Z22.39 - CARRIER OF OTHER SPECIFIED BACTERIAL DISEASES (4) H/O kidney transplant Code(s): Z94.0 - KIDNEY TRANSPLANT STATUS (5) HTN (hypertension) Code(s): I10 - ESSENTIAL (PRIMARY) HYPERTENSION Qualifiers: Hypertension type: unspecified Qualified Code(s): I10 - Essential (primary ) hypertension (6) Hx of CABG Code(s): Z95.1 - PRESENCE OF AORTOCORONARY BYPASS GRAFT (7) IDDM (insulin dependent diabetes mellitus) Code(s): E11.9 - TYPE 2 DIABETES MELLITUS WITHOUT COMPLICATIONS; Z79.4 - PRIVACY ANALYST (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 OF INSULIN (8) Kidney transplant recipient Code(s): Z94.0 - KIDNEY TRANSPLANT STATUS Visit type - Emergency Visit Emergency Visit: Yes ED Registration Date: 10/10/17 Care time: The patient presented to the Emergency Department on the above date and was hospitalized for further evaluation of their emergent condition. - New Patient This patient is new to me today: No - Critical Care Critical Care patient: No - Discharge Referral Referred to [facility] Med P.C[facility] No
--- NOTE | 2017-10-14 13:46 | PN ---
Teaching Attending Note Name of Resident: Esemr Schaeffer (Nephrology) ATTENDING PHYSICIAN STATEMENT I saw and evaluated the patient. I reviewed the resident's note and discussed the case with the resident. I agree with the resident's findings and plan as documented. Nephrology Pt seen and examined at bedside. He is awake and alert. He denies fevers or chills. Current Medications Generic Name Dose Route Start Last Admin Trade Name Freq PRN Reason Stop Dose Admin Acetaminophen 650 mg 10/11/17 08:51 10/12/17 18:44 Tylenol - PO 650 mg Q6H PRN Administration FEVER OR PAIN Amlodipine Besylate 10 mg 10/11/17 10:00 10/14/17 10:45 Norvasc - PO 10 mg DAILY HUGO Administration Aspirin 81 mg 10/11/17 22:00 10/13/17 21:48 Asa - PO 81 mg HS HUGO Administration Atorvastatin Calcium 10 mg 10/11/17 22:00 10/13/17 21:52 Lipitor - PO 10 mg HS HUGO Administration Carvedilol 25 mg 10/11/17 10:00 10/14/17 10:45 Coreg - PO 25 mg BID HUGO Administration Docusate Sodium 100 mg 10/11/17 10:00 10/14/17 10:45 Colace - PO 100 mg DAILY HUGO Administration Duloxetine HCl 20 mg 10/11/17 10:00 10/14/17 10:46 Cymbalta - PO 20 mg BID HUGO Administration Heparin Sodium (Porcine) 5,000 unit 10/11/17 22:00 10/14/17 10:45 Heparin - SQ 5,000 unit BID HUGO Administration Hydralazine HCl 25 mg 10/11/17 10:00 10/14/17 10:44 Apresoline - PO 25 mg BID HUGO Administration Vancomycin HCl 1,250 mg/ 250 mls @ 166.667 mls/hr 10/13/17 10:00 10/14/17 10: 44 Dextrose IVPB 166.667 mls/hr DAILY HUGO Administration Protocol Insulin Aspart 1 vial 10/11/17 07:00 10/14/17 11:18 Novolog Vial Sliding Scale - SQ 8 units ACHS HUGO Administration Protocol Insulin Detemir 5 units 10/13/17 18:00 10/13/17 21:51 Levemir Vial SQ 5 units HS HUGO Administration Mycophenolate Sodium 360 mg 10/11/17 10:00 10/14/17 10:45 Mycophenolic Acid PO 360 mg BID HUGO Administration Polyethylene Glycol 17 gm 10/12/17 10:00 10/14/17 10:45 Miralax (For Daily Use) - PO 17 gm DAILY HUGO Administration Prednisone 5 mg 10/11/17 10:00 10/14/17 10:45 Deltasone - PO 5 mg DAILY HUGO Administration Senna 1 tab 10/11/17 12:00 10/13/17 21:54 Senna - PO 1 tab HS HUGO Administration Tacrolimus 1 mg 10/13/17 22:00 10/13/17 21:53 Prograf PO 1 mg HS HUGO Administration Tacrolimus 1 mg/ Tacrolimus 0. 1.5 mg 10/14/17 10:00 10/14/17 10:48 5 mg PO 1.5 mg DAILY HUGO Administration Tamsulosin HCl 0.8 mg 10/11/17 22:00 10/13/17 21:49 Flomax - PO 0.8 mg HS HUGO Administration Last Vital Signs Temp Pulse Resp BP Pulse Ox 98.5 F 68 20 124/38 98 10/14/17 10:00 10/14/17 10:00 10/14/17 10:00 10/14/17 10:00 10/14/17 09:00 Laboratory Tests 10/14/17 06:00 Creatinine 1.1 Random Glucose 164 H D cardio s1s2 reg pulm clear GI soft ext neg edema graft soft and non tender, there is bladder distention neuro awake and alert Impression 1. CKD 2. kidney transplant 3. DM 4. hx of syncope 5. HTN 6. hyperlipidemia 7. leukocytosis 8. abdominal wall cellulitis Plan - decrease norvasc to 5 mg - monitor blood pressure - cont current meds - cont abx - cont prograf and mycophenylate - follow cultures - cont abx Problem List - Problems (1) Cellulitis of abdominal wall Code(s): L03.311 - CELLULITIS OF ABDOMINAL WALL (2) History of MRSA infection Code(s): Z86.14 - PERSONAL HISTORY OF METHICILLIN RESIS STAPH INFECTION (3) DM2 (diabetes mellitus, type 2) Code(s): E11.9 - TYPE 2 DIABETES MELLITUS WITHOUT COMPLICATIONS (4) ESBL E. coli carrier Code(s): Z22.39 - CARRIER OF OTHER SPECIFIED BACTERIAL DISEASES (5) IDDM (insulin dependent diabetes mellitus) Code(s): E11.9 - TYPE 2 DIABETES MELLITUS WITHOUT COMPLICATIONS; Z79.4 - HALF-WAY (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 OF INSULIN (6) Immunocompromised patient Code(s): D84.9 - IMMUNODEFICIENCY, UNSPECIFIED (7) Kidney transplant recipient Code(s): Z94.0 - KIDNEY TRANSPLANT STATUS
[2017-10-14] MEDS: amLODIPine BESYLATE 5 MG TABLET (FP) PO SCH (14:28)
--- NOTE | 2017-10-14 17:46 | PN ---
Teaching Attending Note Name of Resident: Vega Meneses ATTENDING PHYSICIAN STATEMENT I saw and evaluated the patient. I reviewed the resident's note and discussed the case with the resident. I agree with the resident's findings and plan as documented. SUBJECTIVE: Patient is feeling better, no fever or chills, no shortness of breath. OBJECTIVE: Vital Signs Temperature 97.9 F 10/14/17 16:16 Pulse Rate 67 10/14/17 16:16 Respiratory Rate 18 10/14/17 16:16 Blood Pressure 144/54 10/14/17 16:16 O2 Sat by Pulse Oximetry (%) 98 10/14/17 09:00 CBCD WBC 9.9 K/mm3 (4.0-10.0) 10/12/17 07:30 RBC 4.27 M/mm3 (4.00-5.60) 10/12/17 07:30 Hgb 12.4 GM/dL (11.7-16.9) 10/12/17 07:30 Hct 38.0 % (35.4-49) 10/12/17 07:30 MCV 88.9 fl (80-96) 10/12/17 07:30 MCHC 32.5 g/dl (32.0-35.9) 10/12/17 07:30 RDW 14.8 % (11.9-15.9) 10/12/17 07:30 Plt Count 210 K/MM3 (134-434) 10/12/17 07:30 MPV 8.5 fl (7.5-11.1) 10/12/17 07:30 CMP Sodium 139 mmol/L (136-145) 10/14/17 06:00 Potassium 4.9 mmol/L (3.5-5.1) 10/14/17 06:00 Chloride 103 mmol/L (98-107) 10/14/17 06:00 Carbon Dioxide 28 mmol/L (21-32) 10/14/17 06:00 Anion Gap 8 (8-16) 10/14/17 06:00 BUN 30 mg/dL (7-18) H 10/14/17 06:00 Creatinine 1.1 mg/dL (0.7-1.3) 10/14/17 06:00 Creat Clearance w eGFR > 60 (>60) 10/11/17 06:30 Random Glucose 164 mg/dL (74-106) H D 10/14/17 06:00 Calcium 9.0 mg/dL (8.5-10.1) 10/14/17 06:00 Total Bilirubin 0.5 mg/dL (0.2-1.0) D 10/11/17 06:30 AST 9 U/L (15-37) L 10/11/17 06:30 ALT 20 U/L (12-78) 10/11/17 06:30 Alkaline Phosphatase 64 U/L (45-117) 10/11/17 06:30 Total Protein 6.6 g/dl (6.4-8.2) 10/11/17 06:30 Albumin 3.6 g/dl (3.4-5.0) 10/11/17 06:30 Current Medications Generic Name Dose Route Start Last Admin Trade Name Freq PRN Reason Stop Dose Admin Acetaminophen 650 mg 10/11/17 08:51 10/12/17 18:44 Tylenol - PO 650 mg Q6H PRN Administration FEVER OR PAIN Amlodipine Besylate 5 mg 10/14/17 14:15 10/14/17 14:28 Norvasc - PO Not Given DAILY [facility] Aspirin 81 mg 10/11/17 22:00 10/13/17 21:48 Asa - PO 81 mg HS [facility] Administration Atorvastatin Calcium 10 mg 10/11/17 22:00 10/13/17 21:52 Lipitor - PO 10 mg HS [facility] Administration Carvedilol 25 mg 10/11/17 10:00 10/14/17 10:45 Coreg - PO 25 mg BID [facility] Administration Docusate Sodium 100 mg 10/11/17 10:00 10/14/17 10:45 Colace - PO 100 mg DAILY [facility] Administration Duloxetine HCl 20 mg 10/11/17 10:00 10/14/17 10:46 Cymbalta - PO 20 mg BID [facility] Administration Heparin Sodium (Porcine) 5,000 unit 10/11/17 22:00 10/14/17 10:45 Heparin - SQ 5,000 unit BID [facility] Administration Hydralazine HCl 25 mg 10/11/17 10:00 10/14/17 10:44 Apresoline - PO 25 mg BID [facility] Administration Vancomycin HCl 1,250 mg/ 250 mls @ 166.667 mls/hr 10/13/17 10:00 10/14/17 10: 44 Dextrose IVPB 166.667 mls/hr DAILY [facility] Administration Protocol Insulin Aspart 1 vial 10/11/17 07:00 10/14/17 17:03 Novolog Vial Sliding Scale - SQ 6 units ACHS [facility] Administration Protocol Insulin Detemir 5 units 10/13/17 18:00 10/13/17 21:51 Levemir Vial SQ 5 units HS [facility] Administration Mycophenolate Sodium 360 mg 10/11/17 10:00 10/14/17 10:45 Mycophenolic Acid PO 360 mg BID [facility] Administration Polyethylene Glycol 17 gm 10/12/17 10:00 10/14/17 10:45 Miralax (For Daily Use) - PO 17 gm DAILY [facility] Administration Prednisone 5 mg 10/11/17 10:00 10/14/17 10:45 Deltasone - PO 5 mg DAILY [facility] Administration Senna 1 tab 10/11/17 12:00 10/13/17 21:54 Senna - PO 1 tab HS [facility] Administration Tacrolimus 1 mg 10/13/17 22:00 10/13/17 21:53 Prograf PO 1 mg HS [facility] Administration Tacrolimus 1 mg/ Tacrolimus 0. 1.5 mg 10/14/17 10:00 10/14/17 10:48 5 mg PO 1.5 mg DAILY [facility] Administration Tamsulosin HCl 0.8 mg 10/11/17 22:00 10/13/17 21:49 Flomax - PO 0.8 mg HS [facility] Administration Home Medications Medication Instructions Recorded Amlodipine Besylate [Norvasc -] 10 mg PO DAILY 05/17/17 Aspirin [Jena Chewable Aspirin] 81 mg PO HS 05/17/17 Atorvastatin Ca [Lipitor] 10 mg PO HS 05/17/17 Carvedilol [Coreg -] 25 mg PO BID 05/17/17 Docusate Sodium [Colace -] 100 mg PO DAILY 05/17/17 Duloxetine HCl [Cymbalta] 20 mg PO BID 05/17/17 Hydralazine HCl [Apresoline -] 25 mg PO BID 05/17/17 Mycophenolate Sodium [Myfortic] 360 mg PO BID 05/17/17 Prednisone [Deltasone -] 5 mg PO DAILY 05/17/17 Tacrolimus Anhydrous [Prograf] 1 mg PO BID 05/17/17 Tamsulosin HCl [Flomax] 0.4 mg PO HS 05/17/17 Insulin (Novolog) [Novolog -] 15 units SQ 0700 units 05/20/17 Insulin Sliding Scale [Novolog 0 vial SQ ACHS units 05/20/17 Vial Sliding Scale -] PE:AAOX3. NAD. CV: RRR, R JVD. 01/24 SM Lungs: CTABl ABd: soft, ND , mild tenderness over LLQ wound with packing in it and clean base . surrounding erythema has improved Ext: no edema , minimal scarce hair , smooth skin. DP 1+ b/l ASSESSMENT AND PLAN: 76 y/o gentleman with h/o HTN, ESRD s/p renal transplant in 09 , IDDM , CAD s/p CABG recurrent UTIs , h/o DVT s/p SVC filter, recurrent falls , UTIS with ESBL and E faecalis , thumb OM and other medical problems who presented with pain and erythema on abd wall and was found to have cellulitis with an abscess formation # Acute Abd wall celullitits with an abscess: s/p I&D improved. on IV antibiotic waiting for sensitivity on IV vancomycin # h/o DM : start levemir HS , cont SSI # ESRD s/p renal tx . stable Cr at base line . continue tacrulimus dose increased , cont prednisone and cellcept # CAD: s/p CABG and stents. cont ASA and statin # h/o DVT : has IVC filter DVT PX : heparin waiting for sensitivity for possible discharge
[2017-10-14] MEDS: TAMSULOSIN HCL 0.4 MG CAP.ER.24H (FP) PO SCH (22:16)
[2017-10-14] MEDS: ASPIRIN 81 MG CHEWABLE TABLETS PO SCH (22:16)
[2017-10-14] MEDS: INSULIN DETEMIR 100 UNITS/ML MDV SQ SCH (22:17)
[2017-10-14] MEDS: ATORVASTATIN CA 10 MG TABLET (FP) PO SCH (22:18)
[2017-10-14] MEDS: TACROLIMUS ANHYDROUS 1 MG CAPSULE PO SCH (22:19)
[2017-10-14] MEDS: SENNOSIDES 8.6MG TABLET (FP) PO SCH (22:20)
[2017-10-15] MEDS: INSULIN SLIDING SCALE (NOVOLOG) 1 VIAL SQ SCH ×2 (06:14→11:51)
--- NOTE | 2017-10-15 09:09 | PN ---
Progress Note, Physician Chief Complaint: abdominal wall infection History of Present Illness: 77yo male multiple medical problems including DM s/p Debridement of absominal furuncle, no pain reported if the area is not touched. He has been afebrile and cultures are pending - Current Medication List Current Medications: Active Medications Acetaminophen (Tylenol -) 650 mg PO Q6H PRN PRN Reason: FEVER OR PAIN Last Admin: 10/12/17 18:44 Dose: 650 mg Amlodipine Besylate (Norvasc -) 5 mg PO DAILY [facility] Last Admin: 10/14/17 14:28 Dose: Not Given Aspirin (Asa -) 81 mg PO HS [facility] Last Admin: 10/14/17 22:16 Dose: 81 mg Atorvastatin Calcium (Lipitor -) 10 mg PO HS [facility] Last Admin: 10/14/17 22:18 Dose: 10 mg Carvedilol (Coreg -) 25 mg PO BID [facility] Last Admin: 10/14/17 22:16 Dose: 25 mg Docusate Sodium (Colace -) 100 mg PO DAILY [facility] Last Admin: 10/14/17 10:45 Dose: 100 mg Duloxetine HCl (Cymbalta -) 20 mg PO BID [facility] Last Admin: 10/14/17 22:16 Dose: 20 mg Heparin Sodium (Porcine) (Heparin -) 5,000 unit SQ BID [facility] Last Admin: 10/14/17 22:17 Dose: 5,000 unit Hydralazine HCl (Apresoline -) 25 mg PO BID [facility] Last Admin: 10/14/17 22:15 Dose: 25 mg Vancomycin HCl 1,250 mg/ (Dextrose) 250 mls @ 166.667 mls/hr IVPB DAILY [facility] PRN Reason: Protocol Last Admin: 10/14/17 10:44 Dose: 166.667 mls/hr Insulin Aspart (Novolog Vial Sliding Scale -) 1 vial SQ ACHS [facility] PRN Reason: Protocol Last Admin: 10/15/17 06:14 Dose: Not Given Insulin Detemir (Levemir Vial) 5 units SQ HS [facility] Last Admin: 10/14/17 22:17 Dose: 5 units Mycophenolate Sodium (Mycophenolic Acid) 360 mg PO BID [facility] Last Admin: 10/14/17 22:18 Dose: 360 mg Polyethylene Glycol (Miralax (For Daily Use) -) 17 gm PO DAILY [facility] Last Admin: 10/14/17 10:45 Dose: 17 gm Prednisone (Deltasone -) 5 mg PO DAILY [facility] Last Admin: 10/14/17 10:45 Dose: 5 mg Senna (Senna -) 1 tab PO HS [facility] Last Admin: 10/14/17 22:20 Dose: 1 tab Tacrolimus (Prograf) 1 mg PO HS [facility] Last Admin: 10/14/17 22:19 Dose: 1 mg Tacrolimus 1 mg/ Tacrolimus 0. (5 mg) 1.5 mg PO DAILY [facility] Last Admin: 10/14/17 10:48 Dose: 1.5 mg Tamsulosin HCl (Flomax -) 0.8 mg PO HS [facility] Last Admin: 10/14/17 22:16 Dose: 0.8 mg - Objective Vital Signs: Vital Signs Temperature 98.5 F 10/15/17 05:49 Pulse Rate 74 10/15/17 05:49 Respiratory Rate 18 10/15/17 05:49 Blood Pressure 132/44 10/15/17 05:49 O2 Sat by Pulse Oximetry (%) 98 10/14/17 19:47 Constitutional: Yes: Well Nourished, No Distress, Calm Respiratory: Yes: Regular, CTA Bilaterally Gastrointestinal: Yes: Normal Bowel Sounds, Soft, Other (wound LLQ) Wound/Incision: Yes: Unapproximated Neurological: Yes: Alert Psychiatric: Yes: Alert, Oriented Labs: CBC, BMP 10/12/17 07:30 INR, PTT INR 0.94 (0.82-1.09) 10/10/17 17:00 Problem List - Problems (1) Furuncle of abdominal wall Assessment/Plan: 77 yo male MMP s/p debridement of LLQ furuncle 10/12, wound is improved, afebrile, wbc now normalized Dressing done today - wound care with packing changes on discharge VNS or family Wound measuremnt: 1.5cm X1cm X 1.2cm clean minimal drainge DressinX2" gauze and tape will continue on doxycycline f/u 2 weeks after discharge cleared for discharge home to do his own dressing Code(s): L02.221 - FURUNCLE OF ABDOMINAL WALL (2) Cellulitis and abscess of other specified site Code(s): L03.818 - CELLULITIS OF OTHER SITES; L02.818 - CUTANEOUS ABSCESS OF OTHER SITES (3) History of MRSA infection Code(s): Z86.14 - PERSONAL HISTORY OF METHICILLIN RESIS STAPH INFECTION (4) DM2 (diabetes mellitus, type 2) Code(s): E11.9 - TYPE 2 DIABETES MELLITUS WITHOUT COMPLICATIONS
[2017-10-15 09:10] LABS: ANION GAP 5 (8-16); CALCIUM 8.8 mg/dL (8.5-10.1); CO2 29 mmol/L (21-32); GLUCOSE,RANDOM 119 mg/dL (74-106)
--- NOTE | 2017-10-15 09:33 | PN ---
Progress Note (short form) - Note Progress Note: Vital Signs Temperature 98.5 F 10/15/17 05:49 Pulse Rate 74 10/15/17 05:49 Respiratory Rate 18 10/15/17 05:49 Blood Pressure 132/44 10/15/17 05:49 O2 Sat by Pulse Oximetry (%) 98 10/14/17 19:47 GENERAL: The patient is awake, alert, and fully oriented, in no acute distress. Pleasant man in good spirits. HEAD: NCAT EYES: R pupil minimally reactive, L reactive to light. Extraocular movements intact, sclera anicteric, conjunctiva clear. No ptosis. ENT: Ears normal, nares patent, oropharynx clear without exudates. Poor dentition. Moist mucous membranes. NECK: Trachea midline, supple. No JVD noted. LUNGS: Breath sounds equal, Decreased breath sounds at lung bases. No wheezing or accessory muscle use. HEART: Murmurs unchanged- 3/6 systolic ejection murmur at LUSB and RUSB. 2/6 systolic murmur at apex w/ radiation to axilla. Regular rate and rhythm, S1, S2. ABDOMEN: Open, healing eschar packed with iodoform w/ minimal surrounding erythema in LLQ, w/ gauze and tape applied. Otherwise, Soft, nontender, nondistended, normoactive bowel sounds, w/ no guarding, no rebound. Negative murphys UPPER EXTREMITIES: 2+ pulses, wwp. Still with distended, tortuous R upper arm vein and thrill in cubital fossa from likely prior fistula. LOWER EXTREMITIES: 2+ pulse, wwp. BL anterior healed scars/lesions, no hair on LEs. Trace bruising on anterior R george. PSYCH: Normal mood, normal affect. Interactive, pleasant CBCD WBC 9.9 K/mm3 (4.0-10.0) 10/12/17 07:30 RBC 4.27 M/mm3 (4.00-5.60) 10/12/17 07:30 Hgb 12.4 GM/dL (11.7-16.9) 10/12/17 07:30 Hct 38.0 % (35.4-49) 10/12/17 07:30 MCV 88.9 fl (80-96) 10/12/17 07:30 MCHC 32.5 g/dl (32.0-35.9) 10/12/17 07:30 RDW 14.8 % (11.9-15.9) 10/12/17 07:30 Plt Count 210 K/MM3 (134-434) 10/12/17 07:30 MPV 8.5 fl (7.5-11.1) 10/12/17 07:30 CMP Sodium 139 mmol/L (136-145) 10/14/17 06:00 Potassium 4.9 mmol/L (3.5-5.1) 10/14/17 06:00 Chloride 103 mmol/L (98-107) 10/14/17 06:00 Carbon Dioxide 28 mmol/L (21-32) 10/14/17 06:00 Anion Gap 8 (8-16) 10/14/17 06:00 BUN 30 mg/dL (7-18) H 10/14/17 06:00 Creatinine 1.1 mg/dL (0.7-1.3) 10/14/17 06:00 Creat Clearance w eGFR > 60 (>60) 10/11/17 06:30 Random Glucose 164 mg/dL (74-106) H D 10/14/17 06:00 Calcium 9.0 mg/dL (8.5-10.1) 10/14/17 06:00 Total Bilirubin 0.5 mg/dL (0.2-1.0) D 10/11/17 06:30 AST 9 U/L (15-37) L 10/11/17 06:30 ALT 20 U/L (12-78) 10/11/17 06:30 Alkaline Phosphatase 64 U/L (45-117) 10/11/17 06:30 Total Protein 6.6 g/dl (6.4-8.2) 10/11/17 06:30 Albumin 3.6 g/dl (3.4-5.0) 10/11/17 06:30 Home Medication List Medication Instructions Recorded Confirmed Type Amlodipine Besylate [Norvasc -] 10 mg PO DAILY 05/17/17 10/10/17 History Aspirin [Jena Chewable Aspirin] 81 mg PO HS 05/17/17 10/10/17 History Atorvastatin Ca [Lipitor] 10 mg PO HS 05/17/17 10/10/17 History Carvedilol [Coreg -] 25 mg PO BID 05/17/17 10/10/17 History Docusate Sodium [Colace -] 100 mg PO DAILY 05/17/17 10/10/17 History Duloxetine HCl [Cymbalta] 20 mg PO BID 05/17/17 10/10/17 History Hydralazine HCl [Apresoline -] 25 mg PO BID 05/17/17 10/10/17 History Mycophenolate Sodium [Myfortic] 360 mg PO BID 05/17/17 10/10/17 History Prednisone [Deltasone -] 5 mg PO DAILY 05/17/17 10/10/17 History Tacrolimus Anhydrous [Prograf] 1 mg PO BID 05/17/17 10/10/17 History Tamsulosin HCl [Flomax] 0.4 mg PO HS 05/17/17 10/10/17 History Active Medications Generic Name Dose Route Start Last Admin Trade Name Freq PRN Reason Stop Dose Admin Acetaminophen 650 mg 10/11/17 08:51 10/12/17 18:44 Tylenol - PO 650 mg Q6H PRN Administration FEVER OR PAIN Amlodipine Besylate 5 mg 10/14/17 14:15 10/14/17 14:28 Norvasc - PO Not Given DAILY [facility] Aspirin 81 mg 10/11/17 22:00 10/14/17 22:16 Asa - PO 81 mg HS [facility] Administration Atorvastatin Calcium 10 mg 10/11/17 22:00 10/14/17 22:18 Lipitor - PO 10 mg HS [facility] Administration Carvedilol 25 mg 10/11/17 10:00 10/14/17 22:16 Coreg - PO 25 mg BID [facility] Administration Docusate Sodium 100 mg 10/11/17 10:00 10/14/17 10:45 Colace - PO 100 mg DAILY [facility] Administration Duloxetine HCl 20 mg 10/11/17 10:00 10/14/17 22:16 Cymbalta - PO 20 mg BID [facility] Administration Heparin Sodium (Porcine) 5,000 unit 10/11/17 22:00 10/14/17 22:17 Heparin - SQ 5,000 unit BID [facility] Administration Hydralazine HCl 25 mg 10/11/17 10:00 10/14/17 22:15 Apresoline - PO 25 mg BID [facility] Administration Vancomycin HCl 1,250 mg/ 250 mls @ 166.667 mls/hr 10/13/17 10:00 10/14/17 10: 44 Dextrose IVPB 166.667 mls/hr DAILY [facility] Administration Protocol Insulin Aspart 1 vial 10/11/17 07:00 10/15/17 06:14 Novolog Vial Sliding Scale - SQ Not Given ACHS [facility] Protocol Insulin Detemir 5 units 10/13/17 18:00 10/14/17 22:17 Levemir Vial SQ 5 units HS [facility] Administration Mycophenolate Sodium 360 mg 10/11/17 10:00 10/14/17 22:18 Mycophenolic Acid PO 360 mg BID [facility] Administration Polyethylene Glycol 17 gm 10/12/17 10:00 10/14/17 10:45 Miralax (For Daily Use) - PO 17 gm DAILY [facility] Administration Prednisone 5 mg 10/11/17 10:00 10/14/17 10:45 Deltasone - PO 5 mg DAILY [facility] Administration Senna 1 tab 10/11/17 12:00 10/14/17 22:20 Senna - PO 1 tab HS [facility] Administration Tacrolimus 1 mg 10/13/17 22:00 10/14/17 22:19 Prograf PO 1 mg HS [facility] Administration Tacrolimus 1 mg/ Tacrolimus 0. 1.5 mg 10/14/17 10:00 10/14/17 10:48 5 mg PO 1.5 mg DAILY [facility] Administration Tamsulosin HCl 0.8 mg 10/11/17 22:00 10/14/17 22:16 Flomax - PO 0.8 mg HS [facility] Administration A/P: 76 y/o gentleman with h/o HTN, ESRD s/p renal transplant in 09 , IDDM , CAD s/p CABG recurrent UTIs , h/o DVT s/p SVC filter, recurrent falls , UTIS with ESBL and E faecalis , thumb OM and other medical problems who presented with pain and erythema on abd wall and was found to have cellulitis with an abscess formation # Acute Abd wall celullitits with an abscess: s/p I&D improved. on IV antibiotic waiting for sensitivity on IV vancomycin # h/o DM : start levemir HS , cont SSI # ESRD s/p renal tx . stable Cr at base line . continue tacrulimus dose increased , cont prednisone and cellcept # CAD: s/p CABG and stents. cont ASA and statin # h/o DVT : has IVC filter DVT PX : heparin
[2017-10-15] MEDS ORDERED: PT OWN MED DRAWER 7, Y5N ONE (09:34)
[2017-10-15] MEDS: DULoxetine HCL 20 MG CAPSULE.DR (FP) PO SCH (09:59)
[2017-10-15] MEDS: predniSONE 5 MG TABLET (UD) PO SCH (09:59)
[2017-10-15] MEDS: amLODIPine BESYLATE 5 MG TABLET (FP) PO SCH (10:02)
[2017-10-15] MEDS: hydrALAZINE HCL 25 MG TABLET (FP) PO SCH (10:02)
[2017-10-15] MEDS: DOCUSATE SODIUM 100 MG CAPSULE (FP) PO SCH (10:02)
[2017-10-15] MEDS: HEPARIN NA (PORCINE) 5,000 UNITS/ML 1ML VIAL SQ SCH (10:03)
[2017-10-15] MEDS: MYCOPHENOLATE SODIUM 360 MG TABLET.DR PO SCH (10:03)
[2017-10-15] MEDS: CARVEDILOL 25 MG TABLET (FP) PO SCH (10:03)
[2017-10-15] MEDS: POLYETHYLENE GLYCOL 3350 119 GM BTL PO SCH (10:03)
[2017-10-15] MEDS: TACROLIMUS ANHYDROUS 1 MG PO SCH (10:04)
[2017-10-15] MEDS: TACROLIMUS 0.5 MG PO SCH (10:04)
--- NOTE | 2017-10-15 10:18 | PN ---
Progress Note (short form) - Note Progress Note: ID Vancomcyin daily dose Selected Entries 10/15/17 05:49 Temperature 98.5 F Pulse Rate 74 Respiratory 18 Rate Blood Pressure 132/44 Abd wound small no cellulitis with dressing min drainage Microbiology 10/12/17 18:30 Abscess Gram Stain - Final 10/12/17 18:30 Abscess Wound Culture - Preliminary Mr S Aureus Laboratory Tests 10/12/17 10/12/17 10/15/17 07:30 09:56 07:00 WBC 9.9 Hgb 12.4 Hct 38.0 Plt Count 210 BUN 30 H Creatinine 1.0 Vancomycin Pre-Dose 17.365 H* Assessment MRSA wound infection Plan Reasonable to switch oral therapy Doxycycline 100mg bid for few days 3-5 Erika SILVA
[2017-10-15] MEDS: VANCOMYCIN 1,250 MG in DEXTROSE 5%-WATER - 250 ML IVPB SCH (11:51)
--- NOTE | 2017-10-15 13:12 | PN ---
Progress Note, Physician History of Present Illness: Pt seen and examined at bedside. He is awake and alert. He denies shortness of breath. He denies fevers or chills. - Current Medication List Current Medications: Active Medications Acetaminophen (Tylenol -) 650 mg PO Q6H PRN PRN Reason: FEVER OR PAIN Last Admin: 10/12/17 18:44 Dose: 650 mg Amlodipine Besylate (Norvasc -) 5 mg PO DAILY [facility] Last Admin: 10/15/17 10:02 Dose: Not Given Aspirin (Asa -) 81 mg PO HS [facility] Last Admin: 10/14/17 22:16 Dose: 81 mg Atorvastatin Calcium (Lipitor -) 10 mg PO HS [facility] Last Admin: 10/14/17 22:18 Dose: 10 mg Carvedilol (Coreg -) 25 mg PO BID [facility] Last Admin: 10/15/17 10:03 Dose: 25 mg Docusate Sodium (Colace -) 100 mg PO DAILY [facility] Last Admin: 10/15/17 10:02 Dose: 100 mg Duloxetine HCl (Cymbalta -) 20 mg PO BID [facility] Last Admin: 10/15/17 09:59 Dose: 20 mg Heparin Sodium (Porcine) (Heparin -) 5,000 unit SQ BID [facility] Last Admin: 10/15/17 10:03 Dose: 5,000 unit Hydralazine HCl (Apresoline -) 25 mg PO BID [facility] Last Admin: 10/15/17 10:02 Dose: 25 mg Vancomycin HCl 1,250 mg/ (Dextrose) 250 mls @ 166.667 mls/hr IVPB DAILY [facility] PRN Reason: Protocol Last Admin: 10/15/17 11:51 Dose: 166.667 mls/hr Insulin Aspart (Novolog Vial Sliding Scale -) 1 vial SQ ACHS [facility] PRN Reason: Protocol Last Admin: 10/15/17 11:51 Dose: 8 units Insulin Detemir (Levemir Vial) 5 units SQ HS [facility] Last Admin: 10/14/17 22:17 Dose: 5 units Mycophenolate Sodium (Mycophenolic Acid) 360 mg PO BID [facility] Last Admin: 10/15/17 10:03 Dose: 360 mg Polyethylene Glycol (Miralax (For Daily Use) -) 17 gm PO DAILY [facility] Last Admin: 10/15/17 10:03 Dose: 17 gm Prednisone (Deltasone -) 5 mg PO DAILY [facility] Last Admin: 10/15/17 09:59 Dose: 5 mg Senna (Senna -) 1 tab PO [facility] Last Admin: 10/14/17 22:20 Dose: 1 tab Tacrolimus (Prograf) 1 mg PO [facility] Last Admin: 10/14/17 22:19 Dose: 1 mg Tacrolimus 1 mg/ Tacrolimus 0. (5 mg) 1.5 mg PO DAILY [facility] Last Admin: 10/15/17 10:04 Dose: 1.5 mg Tamsulosin HCl (Flomax -) 0.8 mg PO [facility] Last Admin: 10/14/17 22:16 Dose: 0.8 mg - Objective Vital Signs: Vital Signs Temperature 98.5 F 10/15/17 05:49 Pulse Rate 75 10/15/17 10:00 Respiratory Rate 18 10/15/17 10:00 Blood Pressure 138/40 10/15/17 10:00 O2 Sat by Pulse Oximetry (%) 98 10/14/17 19:47 Constitutional: Yes: Calm Eyes: Yes: Conjunctiva Clear HENT: Yes: Atraumatic Neck: Yes: Supple Cardiovascular: Yes: S1, S2 Respiratory: Yes: CTA Bilaterally Gastrointestinal: Yes: Soft Genitourinary: Yes: Other (graft soft and non tender) Musculoskeletal: Yes: WNL Edema: No Neurological: Yes: Oriented Psychiatric: Yes: Oriented Labs: CBC, BMP 10/12/17 07:30 10/15/17 07:00 INR, PTT INR 0.94 (0.82-1.09) 10/10/17 17:00 Problem List - Problems (1) Cellulitis of abdominal wall Code(s): L03.311 - CELLULITIS OF ABDOMINAL WALL (2) History of MRSA infection Code(s): Z86.14 - PERSONAL HISTORY OF METHICILLIN RESIS STAPH INFECTION (3) DM2 (diabetes mellitus, type 2) Code(s): E11.9 - TYPE 2 DIABETES MELLITUS WITHOUT COMPLICATIONS (4) ESBL E. coli carrier Code(s): Z22.39 - CARRIER OF OTHER SPECIFIED BACTERIAL DISEASES (5) IDDM (insulin dependent diabetes mellitus) Code(s): E11.9 - TYPE 2 DIABETES MELLITUS WITHOUT COMPLICATIONS; Z79.4 - DRAPERY CUTTER MACHINE (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 OF INSULIN (6) Immunocompromised patient Code(s): D84.9 - IMMUNODEFICIENCY, UNSPECIFIED (7) Kidney transplant recipient Code(s): Z94.0 - KIDNEY TRANSPLANT STATUS Assessment/Plan Current Medications Generic Name Dose Route Start Last Admin Trade Name Freq PRN Reason Stop Dose Admin Acetaminophen 650 mg 10/11/17 08:51 10/12/17 18:44 Tylenol - PO 650 mg Q6H PRN Administration FEVER OR PAIN Amlodipine Besylate 5 mg 10/14/17 14:15 10/15/17 10:02 Norvasc - PO Not Given DAILY [facility] Aspirin 81 mg 10/11/17 22:00 10/14/17 22:16 Asa - PO 81 mg HS [facility] Administration Atorvastatin Calcium 10 mg 10/11/17 22:00 10/14/17 22:18 Lipitor - PO 10 mg HS [facility] Administration Carvedilol 25 mg 10/11/17 10:00 10/15/17 10:03 Coreg - PO 25 mg BID [facility] Administration Docusate Sodium 100 mg 10/11/17 10:00 10/15/17 10:02 Colace - PO 100 mg DAILY [facility] Administration Duloxetine HCl 20 mg 10/11/17 10:00 10/15/17 09:59 Cymbalta - PO 20 mg BID [facility] Administration Heparin Sodium (Porcine) 5,000 unit 10/11/17 22:00 10/15/17 10:03 Heparin - SQ 5,000 unit BID [facility] Administration Hydralazine HCl 25 mg 10/11/17 10:00 10/15/17 10:02 Apresoline - PO 25 mg BID [facility] Administration Vancomycin HCl 1,250 mg/ 250 mls @ 166.667 mls/hr 10/13/17 10:00 10/15/17 11: 51 Dextrose IVPB 166.667 mls/hr DAILY [facility] Administration Protocol Insulin Aspart 1 vial 10/11/17 07:00 10/15/17 11:51 Novolog Vial Sliding Scale - SQ 8 units ACHS [facility] Administration Protocol Insulin Detemir 5 units 10/13/17 18:00 10/14/17 22:17 Levemir Vial SQ 5 units HS [facility] Administration Mycophenolate Sodium 360 mg 10/11/17 10:00 10/15/17 10:03 Mycophenolic Acid PO 360 mg BID [facility] Administration Polyethylene Glycol 17 gm 10/12/17 10:00 10/15/17 10:03 Miralax (For Daily Use) - PO 17 gm DAILY [facility] Administration Prednisone 5 mg 10/11/17 10:00 10/15/17 09:59 Deltasone - PO 5 mg DAILY [facility] Administration Senna 1 tab 10/11/17 12:00 10/14/17 22:20 Senna - PO 1 tab HS [facility] Administration Tacrolimus 1 mg 10/13/17 22:00 10/14/17 22:19 Prograf PO 1 mg HS [facility] Administration Tacrolimus 1 mg/ Tacrolimus 0. 1.5 mg 10/14/17 10:00 10/15/17 10:04 5 mg PO 1.5 mg DAILY [facility] Administration Tamsulosin HCl 0.8 mg 10/11/17 22:00 10/14/17 22:16 Flomax - PO 0.8 mg HS [facility] Administration Impression 1. CKD 2. kidney transplant 3. DM 4. hx of syncope 5. HTN 6. hyperlipidemia 7. leukocytosis 8. abdominal wall cellulitis Plan - will need to repeat prograf level next week - renal function is stable - urology input appreciated - cont prograf and mycophenylate - cont abx
[2017-10-15 14:03] VITALS: BP 120/92; PULSE 65; TEMP 98.3
--- NOTE | 2017-10-15 14:20 | DS ---
Physical Exam: SUBJECTIVE: Patient seen and examined Patient is feeling better, feels well to go home and would like to go home. OBJECTIVE: Vital Signs Temperature 98.3 F 10/15/17 14:01 Pulse Rate 65 10/15/17 14:01 Respiratory Rate 18 10/15/17 10:00 Blood Pressure 120/92 10/15/17 14:01 O2 Sat by Pulse Oximetry (%) 98 10/14/17 19:47 PHYSICAL EXAM GENERAL: The patient is awake, alert, and fully oriented, in no acute distress. HEAD: Normal with no signs of trauma. EYES: PERRL, extraocular movements intact, sclera anicteric, conjunctiva clear. ENT: Ears normal, nares patent, oropharynx clear without exudates, moist mucous membranes. NECK: Trachea midline, full range of motion, supple. LUNGS: Breath sounds equal, clear to auscultation bilaterally, no wheezes, no crackles, no accessory muscle use. HEART: Regular rate and rhythm, S1, S2 positive, YISSEL 3/6, no rub or gallop. ABDOMEN: Soft, nontender, nondistended, normoactive bowel sounds, no guarding, no rebound, Packing was removed by the surgeon, no erythema, improved the abdominal cellulitis. EXTREMITIES: 2+ pulses, warm, well-perfused, no edema. NEUROLOGICAL: Cranial nerves II through XII grossly intact. Normal speech, gait is steady. PSYCH: Normal mood, normal affect. SKIN: Warm, dry, normal turgor, no rashes or lesions noted. LABS CBCD WBC 9.9 K/mm3 (4.0-10.0) 10/12/17 07:30 RBC 4.27 M/mm3 (4.00-5.60) 10/12/17 07:30 Hgb 12.4 GM/dL (11.7-16.9) 10/12/17 07:30 Hct 38.0 % (35.4-49) 10/12/17 07:30 MCV 88.9 fl (80-96) 10/12/17 07:30 MCHC 32.5 g/dl (32.0-35.9) 10/12/17 07:30 RDW 14.8 % (11.9-15.9) 10/12/17 07:30 Plt Count 210 K/MM3 (134-434) 10/12/17 07:30 MPV 8.5 fl (7.5-11.1) 10/12/17 07:30 CMP Sodium 138 mmol/L (136-145) 10/15/17 07:00 Potassium 5.0 mmol/L (3.5-5.1) 10/15/17 07:00 Chloride 104 mmol/L (98-107) 10/15/17 07:00 Carbon Dioxide 29 mmol/L (21-32) 10/15/17 07:00 Anion Gap 5 (8-16) L 10/15/17 07:00 BUN 30 mg/dL (7-18) H 10/15/17 07:00 Creatinine 1.0 mg/dL (0.7-1.3) 10/15/17 07:00 Creat Clearance w eGFR > 60 (>60) 10/11/17 06:30 Random Glucose 119 mg/dL (74-106) H D 10/15/17 07:00 Calcium 8.8 mg/dL (8.5-10.1) 10/15/17 07:00 Total Bilirubin 0.5 mg/dL (0.2-1.0) D 10/11/17 06:30 AST 9 U/L (15-37) L 10/11/17 06:30 ALT 20 U/L (12-78) 10/11/17 06:30 Alkaline Phosphatase 64 U/L (45-117) 10/11/17 06:30 Total Protein 6.6 g/dl (6.4-8.2) 10/11/17 06:30 Albumin 3.6 g/dl (3.4-5.0) 10/11/17 06:30 Laboratory Results - last 24 hr 10/14/17 10/14/17 10/15/17 17:00 22:14 06:13 Sodium Potassium Chloride Carbon Dioxide Anion Gap BUN Creatinine POC Glucometer 251 310 120 Random Glucose Calcium Vancomycin Pre-Dose 10/15/17 10/15/17 10/15/17 07:00 09:15 11:48 Sodium 138 Potassium 5.0 Chloride 104 Carbon Dioxide 29 Anion Gap 5 L BUN 30 H Creatinine 1.0 POC Glucometer 304 Random Glucose 119 H D Calcium 8.8 Vancomycin Pre-Dose 12.566 H D Active Medications Generic Name Dose Route Start Last Admin Trade Name Freq PRN Reason Stop Dose Admin Acetaminophen 650 mg 10/11/17 08:51 10/12/17 18:44 Tylenol - PO 650 mg Q6H PRN Administration FEVER OR PAIN Amlodipine Besylate 5 mg 10/14/17 14:15 10/15/17 10:02 Norvasc - PO Not Given DAILY HUGO Aspirin 81 mg 10/11/17 22:00 10/14/17 22:16 Asa - PO 81 mg HS HUGO Administration Atorvastatin Calcium 10 mg 10/11/17 22:00 10/14/17 22:18 Lipitor - PO 10 mg HS HUGO Administration Carvedilol 25 mg 10/11/17 10:00 10/15/17 10:03 Coreg - PO 25 mg BID HUGO Administration Docusate Sodium 100 mg 10/11/17 10:00 10/15/17 10:02 Colace - PO 100 mg DAILY HUGO Administration Duloxetine HCl 20 mg 10/11/17 10:00 10/15/17 09:59 Cymbalta - PO 20 mg BID HUGO Administration Heparin Sodium (Porcine) 5,000 unit 10/11/17 22:00 10/15/17 10:03 Heparin - SQ 5,000 unit BID HUGO Administration Hydralazine HCl 25 mg 10/11/17 10:00 10/15/17 10:02 Apresoline - PO 25 mg BID HUGO Administration Vancomycin HCl 1,250 mg/ 250 mls @ 166.667 mls/hr 10/13/17 10:00 10/15/17 11: 51 Dextrose IVPB 166.667 mls/hr DAILY HUGO Administration Protocol Insulin Aspart 1 vial 10/11/17 07:00 10/15/17 11:51 Novolog Vial Sliding Scale - SQ 8 units ACHS HUGO Administration Protocol Insulin Detemir 5 units 10/13/17 18:00 10/14/17 22:17 Levemir Vial SQ 5 units HS HUGO Administration Mycophenolate Sodium 360 mg 10/11/17 10:00 10/15/17 10:03 Mycophenolic Acid PO 360 mg BID HUGO Administration Polyethylene Glycol 17 gm 10/12/17 10:00 10/15/17 10:03 Miralax (For Daily Use) - PO 17 gm DAILY HUGO Administration Prednisone 5 mg 10/11/17 10:00 10/15/17 09:59 Deltasone - PO 5 mg DAILY HUGO Administration Senna 1 tab 10/11/17 12:00 10/14/17 22:20 Senna - PO 1 tab HS HUGO Administration Tacrolimus 1 mg 10/13/17 22:00 10/14/17 22:19 Prograf PO 1 mg HS HUGO Administration Tacrolimus 1 mg/ Tacrolimus 0. 1.5 mg 10/14/17 10:00 10/15/17 10:04 5 mg PO 1.5 mg DAILY HUGO Administration Tamsulosin HCl 0.8 mg 10/11/17 22:00 10/14/17 22:16 Flomax - PO 0.8 mg HS HUGO Administration Home Medication List Medication Instructions Recorded Confirmed Type Amlodipine Besylate [Norvasc -] 10 mg PO DAILY 05/17/17 10/10/17 History Aspirin [Jena Chewable Aspirin] 81 mg PO HS 05/17/17 10/10/17 History Atorvastatin Ca [Lipitor] 10 mg PO HS 05/17/17 10/10/17 History Carvedilol [Coreg -] 25 mg PO BID 05/17/17 10/10/17 History Docusate Sodium [Colace -] 100 mg PO DAILY 05/17/17 10/10/17 History Duloxetine HCl [Cymbalta] 20 mg PO BID 05/17/17 10/10/17 History Hydralazine HCl [Apresoline -] 25 mg PO BID 05/17/17 10/10/17 History Mycophenolate Sodium [Myfortic] 360 mg PO BID 05/17/17 10/10/17 History Prednisone [Deltasone -] 5 mg PO DAILY 05/17/17 10/10/17 History Tacrolimus Anhydrous [Prograf] 1 mg PO BID 05/17/17 10/10/17 History Tamsulosin HCl [Flomax] 0.4 mg PO HS 05/17/17 10/10/17 History Microbiology 10/12/17 18:30 Abscess Gram Stain - Final 10/12/17 18:30 Abscess Wound Culture - Final MRSA sensitivity is back 10/10/17 15:12 Blood - Peripheral Venous Blood Culture - Preliminary NO GROWTH OBTAINED AFTER 96 HOURS, INCUBATION TO CONTINUE FOR 1 DAYS. 10/10/17 15:12 Blood - Peripheral Venous Blood Culture - Preliminary NO GROWTH OBTAINED AFTER 96 HOURS, INCUBATION TO CONTINUE FOR 1 DAYS. HOSPITAL COURSE: Date of Admission:10/10/17 Date of Discharge: 10/15/17 76 y/o gentleman with h/o HTN, ESRD s/p renal transplant in , IDDM , CAD s/p CABG recurrent UTIs , h/o DVT s/p SVC filter, recurrent falls , UTIS with ESBL and E faecalis , thumb OM and other medical problems who presented with pain and erythema on abd wall and was found to have cellulitis with an abscess formation # Acute Abdominal wall celullitits with an abscess: s/p I&D improved. s/p IV antibiotic vancomycin, as per ID to send him home on Doxycycline 100mg po bid x 5 days. Follow up with a surgeon in 2 weeks. Follow up with ID in a week. Follow up with inspector and hand packager in a week. Packing was removed by the surgeon today. the site is clean and dry. # HX of DM : started on 5units levemir HS , cont SSI , follow with branch specialist in a week # ESRD s/p renal tx . stable Cr at base line . continue tacrulimus dose increased , cont prednisone and cellcept # CAD: s/p CABG and stents. cont ASA and statin # h/o DVT : has IVC filter discharge time 40 minutes. discussed with all the infrastructure consultant , ID, surgeon. Minutes to complete discharge: 40 Discharge Summary Reason For Visit: ABCESS OF ABDOMINAL WALL Current Active Problems Cellulitis and abscess of other specified site (Acute) Cellulitis of abdominal wall (Acute) Furuncle of abdominal wall (Acute) History of MRSA infection (Acute) Condition: Stable - Instructions Diet, Activity, Other Instructions: Postoperative instructions: You had a debridement of a furuncle on 10/12/[address] Venu Johnson of [facility]. Wound care: Dry Dressing with gauze and tape as instructed once daily. Follow-up: Call Dr. Johnson's office at [phone] to make your postop appointment (Tuesday 1-2 weeks after surgery as advised). Clinic is held in the Diagnostic [facility] on the first floor of [facility]. Call the office if you have: * increasing pain not responsive to pain medication * fever of 101F or higher * vomiting * unusual or increasing bleeding or drainage from wounds * increasing redness or swelling at wound sites * inability to urinate Also, see your primary medical doctor within 1-2 weeks. Referrals: Remington James MD [Staff Physician] - 1 Week Mario Alberto Gray MD [Staff Physician] - 2 Weeks Mino Abel MD [Primary Care Provider] - 1 Week Gt Villela MD [Staff Physician] - 1 Week (follow with branch specialist in a week period. ) Disposition: HOME - Home Medications Comprehensive Discharge Medication List: Ambulatory Orders Amlodipine Besylate [Norvasc -] 10 mg PO DAILY 05/17/17 Aspirin [Jena Chewable Aspirin] 81 mg PO HS 05/17/17 Atorvastatin Ca [Lipitor] 10 mg PO HS 05/17/17 Carvedilol [Coreg -] 25 mg PO BID 05/17/17 Docusate Sodium [Colace -] 100 mg PO DAILY 05/17/17 Duloxetine HCl [Cymbalta] 20 mg PO BID 05/17/17 Hydralazine HCl [Apresoline -] 25 mg PO BID 05/17/17 Mycophenolate Sodium [Myfortic] 360 mg PO BID 05/17/17 Prednisone [Deltasone -] 5 mg PO DAILY 05/17/17 Tacrolimus Anhydrous [Prograf] 1 mg PO BID 05/17/17 Tamsulosin HCl [Flomax] 0.4 mg PO HS 05/17/17 Insulin (Novolog) [Novolog -] 15 units SQ 0700 units 05/20/17 Insulin Sliding Scale [Novolog Vial Sliding Scale -] 0 vial SQ ACHS units 05/20 This patient is new to me today: No Emergency Visit: Yes ED Registration Date: 10/10/17 Care time: The patient presented to the Emergency Department on the above date and was hospitalized for further evaluation of their emergent condition. Critical Care patient: No - Discharge Referral Referred to [facility] No
== END 2017-10-15 16:30 | disposition home health service (06) | DRG 580 ==
LOC: JER 16:45 → JERBED 20:50 → J5S 10-11 00:23
PROVIDERS: ADMIT Internal Medicine; ATTEND Internal Medicine
PROC: 0W9F0ZX Drainage of Abdominal Wall, Open Approach, Diagnostic (ICD-10-PCS; principal; 2017-10-12)
DX: L02.221 Furuncle of abdominal wall (principal); L02.211 Cutaneous abscess of abdominal wall; N17.9 Acute kidney failure, unspecified; M86.8X4 Other osteomyelitis, hand; N13.39 Other hydronephrosis; L03.311 Cellulitis of abdominal wall; Z94.0 Kidney transplant status; I25.10 Atherosclerotic heart disease of native coronary artery without angina pectoris; E78.5 Hyperlipidemia, unspecified; N40.1 Benign prostatic hyperplasia with lower urinary tract symptoms; R33.8 Other retention of urine; K59.09 Other constipation; I12.9 Hypertensive chronic kidney disease with stage 1 through stage 4 chronic kidney disease, or unspecified chronic kidney disease; E11.42 Type 2 diabetes mellitus with diabetic polyneuropathy; E11.22 Type 2 diabetes mellitus with diabetic chronic kidney disease; N18.9 Chronic kidney disease, unspecified; E11.69 Type 2 diabetes mellitus with other specified complication; D72.828 Other elevated white blood cell count; R31.9 Hematuria, unspecified; R55 Syncope and collapse; Z86.14 Personal history of Methicillin resistant Staphylococcus aureus infection; Z79.4 Long term (current) use of insulin; Z95.1 Presence of aortocoronary bypass graft; Z86.718 Personal history of other venous thrombosis and embolism; Z95.5 Presence of coronary angioplasty implant and graft; Z22.39 Carrier of other specified bacterial diseases
CPT/HCPCS: 36415; 74176-TC; 76776-TC; 80048; 80053; 80197; 81003; 82947; 83036; 83605; 83735; 84100; 85025; 85610; 85730; 87040; 87070; 87186; 87205; 97116-GP; 97161-GP; 99282-25; G0480; J1644

== ENCOUNTER 2017-11-28 17:25 | Inpatient (IN) | payer OTHER ==
[2017-11-28] MEDS ORDERED: HEMOQUE TEST 1 EACH EACH ONE (17:35)
[2017-11-28 17:43] VITALS: BMI 27.4
[2017-11-28] MEDS ORDERED: SODIUM CHLORIDE 1,000 ML IV STA (18:24)
--- NOTE | 2017-11-28 18:31 | PDOC ---
History of Present Illness - General History Source: Patient Exam Limitations: No Limitations - History of Present Illness Initial Comments: 11/28/17 18:52 The patient is a 77 year old male, with a significant past medical history of HTN,DM, CAD, CT s/p stents /CABG, HLD, IVC filter, DVT in left leg, ESRD (on immunosuppressants, kidney transplant 2008) who presents to the emergency department with elevated blood glucose levels. Patient is accompanied by daughters who report patients BG has been in 500s which is unusual for him. Patient is compliant with Lantus and Humalog, denies any changes in medications. Patient endorses urinary frequency however denies dysuria, urgency or hematuria. Daughters also note, patient has been increasingly confused and present to the ED for further evaluation. Patient denies chest pain, headache or dizziness. Patient denies fever, chills, abdominal pain, nausea, vomit, diarrhea or constipation. Patient denies dysuria , frequency, urgency or hematuria. Patient denies sick contacts or recent travel. PCP: Dr. Palacios <Alessandra Kenyon - Last Filed: 11/28/17 19:02> - General History Source: Patient, Old Records Exam Limitations: No Limitations <Willam Mcdonald - Last Filed: 12/08/17 21:25> - General Chief Complaint: Blood Sugar Problem Stated Complaint: DIABETES Time Seen by Provider: 11/28/17 17:50 Past History <Alessandra Kenyon - Last Filed: 11/28/17 19:02> - Past Medical History Anemia: No Asthma: No Cancer: No Cardiac Disorders: Yes CVA: No COPD: No CHF: Yes Dementia: No Diabetes: Yes (iddm) Dialysis: Yes (past) GI Disorders: No Disorders: No HTN: Yes Hypercholesterolemia: Yes Liver Disease: No Seizures: No Thyroid Disease: No - Surgical History Abdominal Surgery: No Appendectomy: No Cardiac Surgery: Yes (open heart surgery) Cholecystectomy: No Lung Surgery: No Neurologic Surgery: No Orthopedic Surgery: No - Immunization History Immunization Up to Date: Yes - Suicide/Smoking/Psychosocial Hx Smoking Status: No Smoking History: Never smoked Have you smoked in the past 12 months: No Number of Cigarettes Smoked Daily: 0 Information on smoking cessation initiated: No Hx Alcohol Use: No Drug/Substance Use Hx: No Substance Use Type: None Hx Substance Use Treatment: No <Willam Mcdnoald - Last Filed: 12/08/17 21:25> - Past Medical History Allergies/Adverse Reactions: Allergies Allergy/AdvReac Type Severity Reaction Status Date / Time No Known Drug Allergies Allergy Verified 10/10/17 16:57 Home Medications: Ambulatory Orders Amlodipine Besylate [Norvasc -] 10 mg PO DAILY 05/17/17 Aspirin [Jena Chewable Aspirin] 81 mg PO HS 05/17/17 Atorvastatin Ca [Lipitor] 10 mg PO HS 05/17/17 Carvedilol [Coreg -] 25 mg PO BID 05/17/17 Docusate Sodium [Colace -] 100 mg PO DAILY 05/17/17 Duloxetine HCl [Cymbalta] 20 mg PO BID 05/17/17 Hydralazine HCl [Apresoline -] 25 mg PO BID 05/17/17 Mycophenolate Sodium [Myfortic] 360 mg PO BID 05/17/17 Prednisone [Deltasone -] 5 mg PO DAILY 05/17/17 Tamsulosin HCl [Flomax] 0.4 mg PO HS 05/17/17 Acetaminophen [Tylenol .Regular Strength -] 650 mg PO Q4H PRN tablet 11/29/17 Tacrolimus 1 mg PO BID 11/29/17 Insulin Sliding Scale [Novolog Vial Sliding Scale -] 1 vial SQ ACHS units 11/30 Cephalexin Monohydrate [Keflex -] 500 mg PO Q6H #60 capsule 12/05/17 Insulin (Levemir) [Levemir Vial] 8 units SQ HS ml 12/05/17 Insulin (Levemir) [Levemir Vial] 25 units SQ AM #0 ml 12/05/17 Review of Systems - Review of Systems Able to Perform ROS?: Yes Comments:: 11/28/17 18:52 GENERAL/CONSTITUTIONAL: No fever or chills. No weakness. HEAD, EYES, EARS, NOSE AND THROAT: No change in vision. No ear pain or discharge. No sore throat. CARDIOVASCULAR: No chest pain or shortness of breath. RESPIRATORY: No cough, wheezing, or hemoptysis. GASTROINTESTINAL: No nausea, vomiting, diarrhea or constipation. GENITOURINARY: No dysuria, or change in urination. +urinary frequency. MUSCULOSKELETAL: No joint or muscle swelling or pain. No neck or back pain. SKIN: No rash NEUROLOGIC: No headache, vertigo, loss of consciousness, or change in strength/ sensation. ENDOCRINE: No increased thirst. No abnormal weight change. HEMATOLOGIC/LYMPHATIC: No anemia, easy bleeding, or history of blood clots. ALLERGIC/IMMUNOLOGIC: No hives or skin allergy. <Alessandra Kenyon - Last Filed: 11/28/17 19:02> *Physical Exam - Vital Signs Last Vital Signs Temp Pulse Resp BP Pulse Ox 98.8 F 74 20 148/66 95 11/28/17 17:31 11/28/17 17:31 11/28/17 17:31 11/28/17 17:31 11/28/17 17:31 <Alessandra Kenyon - Last Filed: 11/28/17 19:02> - Vital Signs Last Vital Signs Temp Pulse Resp BP Pulse Ox 98.8 F 74 20 148/66 95 11/28/17 17:31 11/28/17 17:31 11/28/17 17:31 11/28/17 17:31 11/28/17 17:31 - Physical Exam Comments: 11/28/17 19:05 GENERAL: Awake, alert, and fully oriented, in no acute distress. HEAD: No signs of trauma EYES: PERRLA, EOMI, sclera anicteric, conjunctiva clear ENT: Auricles normal inspection, hearing grossly normal, nares patent, oropharynx clear without exudates. NECK: Normal ROM, supple, no lymphadenopathy, JVD, or masses LUNGS: Breath sounds equal, clear to auscultation bilaterally. No wheezes, and no crackles HEART: Regular rate and rhythm, normal S1 and S2, no murmurs, rubs or gallops ABDOMEN: Soft, nontender, normoactive bowel sounds. No guarding, no rebound. No masses EXTREMITIES: Normal range of motion, no edema. No clubbing or cyanosis. No cords, erythema, or tenderness NEUROLOGICAL: Cranial nerves II through XII grossly intact. Normal speech SKIN: Warm, Dry, normal turgor, no rashes or lesions noted. <Willam Mcdonald - Last Filed: 12/08/17 21:25> Heart Score/ECG Review #1 ECG reviewed & interpreted by me at: 18:00 11/28/17 18:33 NSR 78, RBBB, LAFB, bifascicular block, LVH with strain, QTC 460 msec, no pooja <Willam Mcdonald - Last Filed: 12/08/17 21:25> ED Treatment Course - LABORATORY CBC & Chemistry Diagram: 11/28/17 18:14 11/28/17 18:14 <Alessandra eKnyon - Last Filed: 11/28/17 19:02> - LABORATORY CBC & Chemistry Diagram: 12/05/17 07:50 12/05/17 07:50 - RADIOLOGY Radiology Studies Ordered: Category Date Time Status CHEST X-RAY PORTABLE* [RAD] Stat Radiology 11/28/17 18:12 Ordered <Willam Mcdonald - Last Filed: 12/08/17 21:25> Medical Decision Making - Medical Decision Making 11/28/17 18:33 A portion of this note was documented by scribe services under my direction. I have reviewed the details of the note, within reason, and agree with the documentation with the following case summary and management plan written by me. Patient treated in the ED. Nursing notes are reviewed and incorporated into the medical decision-making. Vital signs reviewed. Peripheral IV access obtained by the nurse, laboratory studies are drawn and sent, reviewed and interpreted by myself. Vital Signs Temp Pulse Resp BP Pulse Ox 98.8 F 74 20 148/66 95 11/28/17 17:31 11/28/17 17:31 11/28/17 17:31 11/28/17 17:31 11/28/17 17:31 77 year old male with past medical history of hypertension, end-stage renal disease status post renal transplant 2008, currently on immunosuppressants, diabetes, coronary disease status post CABG, history of recurrent urinary tract infections, DVT status post filter, recurrent falls presents with elevated sugars. According to the family, the patient has always had difficult to control hyperglycemia, where her sugars are typically the 300s. In last week, they noted that his blood sugars are in the 500s despite being adherent to Lantus and Humalog. Patient denies any symptoms other than urinary frequency. Denies chest pain or shortness of breath. The family is noted the patient has been increasingly more confused and delirious. Otherwise, denies any coughing, vomiting, diarrhea. We'll need to rule out DKA for the patient. We'll give IV fluids and check for blood work including gas and acetone level. However, there is some concern for potentially metabolic or infectious etiology such as urine tract infections given his history of UTIs. We'll obtain labs including cultures. Give insulin when blood work returns and admit the patient to the hospital for further management. 11/28/17 19:05 Case signed out to [facility] ED attending Dr. Dudley. <Willam Mcdonald - Last Filed: 12/08/17 21:25> *DC/Admit/Observation/Transfer - Attestations Scribe Attestion: 11/28/17 18:52 Documentation prepared by Alessandra Kenyon, acting as medical front desk specialist for Willam Mcdonald MD <Alessandra Kenyon - Last Filed: 11/28/17 19:02> <Willam Mcdonald - Last Filed: 12/08/17 21:25> Diagnosis at time of Disposition: CHUCK (acute kidney injury), Hyperglycemia - Discharge Dispostion Disposition: HALFWAY FACILITY Condition at time of disposition: Improved
[2017-11-28 18:58] LABS: BASO % 0.3 % (0-2.0); EOS % 0.6 % (0-4.5); HEMATOCRIT 40.3 % (35.4-49); HEMOGLOBIN 13.3 GM/dL (11.7-16.9); LYMPH % 20.3 % (8-40); MEAN CELL VOLUME 90.9 fl (80-96); MEAN PLT VOLUME 9.5 fl (7.5-11.1); MONO % 8.6 % (3.8-10.2); NEUT % 70.2 % (42.8-82.8); PLATELET COUNT 139 K/MM3 (134-434); RBC 4.44 M/mm3 (4.00-5.60); RDW 14.6 % (11.9-15.9)
[2017-11-28 19:06] LABS: VENOUS PH 7.34 (7.32-7.42); VENOUS PO2 28.8 mmHg (28-48)
[2017-11-28 19:12] LABS: INR 0.93 (0.82-1.09); PROTHROMBIN TIME (PATIENT) 10.5 SEC (9.98-11.88)
[2017-11-28 19:15] LABS: ACTIVATED PTT 29.7 SECONDS (26.9-34.4)
--- NOTE | 2017-11-28 21:00 | PDOC ---
*Physical Exam - Vital Signs Last Vital Signs Temp Pulse Resp BP Pulse Ox 98.8 F 74 20 148/66 95 11/28/17 17:31 11/28/17 17:31 11/28/17 17:31 11/28/17 17:31 11/28/17 17:31 <Jenny Feliciano - Last Filed: 11/28/17 22:27> - Vital Signs Last Vital Signs Temp Pulse Resp BP Pulse Ox 98.8 F 74 20 148/66 95 11/28/17 17:31 11/28/17 17:31 11/28/17 17:31 11/28/17 17:31 11/28/17 17:31 - Physical Exam Comments: 11/28/17 20:56 Gen: aaox3, resting comfortably heart: +s1s2 reg lungs: cta b/l abd: soft, nt/nd +bs ext: no c/c/e <Tracy Dudley - Last Filed: 11/28/17 22:46> ED Treatment Course - LABORATORY CBC & Chemistry Diagram: 11/28/17 18:14 11/28/17 20:00 - ADDITIONAL ORDERS Additional order review: Laboratory Results 11/28/17 11/28/17 11/28/17 20:00 18:14 18:14 PT with INR INR PTT (Actin FS) VBG pH POC VBG pCO2 POC VBG pO2 Mixed VBG HCO3 Sodium 135 L Potassium 4.7 Chloride 101 Carbon Dioxide 27 Anion Gap 7 L BUN 47 H D Creatinine 1.7 H D Creat Clearance w eGFR 39.49 Random Glucose 427 H* D Lactic Acid 2.3 H* Calcium 8.5 Phosphorus Magnesium Total Bilirubin 0.4 AST 11 L D ALT 33 D Alkaline Phosphatase 102 D Creatine Kinase Troponin I Total Protein 6.5 Albumin 3.8 Acetone, Qual Blood Type O POSITIVE Antibody Screen Negative 11/28/17 11/28/17 11/28/17 18:14 18:14 18:14 PT with INR 10.50 INR 0.93 PTT (Actin FS) 29.7 VBG pH 7.34 POC VBG pCO2 49.0 POC VBG pO2 28.8 D Mixed VBG HCO3 25.5 H Sodium Cancelled Potassium Cancelled Chloride Cancelled Carbon Dioxide Cancelled Anion Gap Cancelled BUN Cancelled Creatinine Cancelled Creat Clearance w eGFR Cancelled Random Glucose Cancelled Lactic Acid Calcium Cancelled Phosphorus Cancelled Magnesium Cancelled Total Bilirubin Cancelled AST Cancelled ALT Cancelled Alkaline Phosphatase Cancelled Creatine Kinase Cancelled Troponin I Cancelled Total Protein Cancelled Albumin Cancelled Acetone, Qual Cancelled Blood Type Antibody Screen 11/28/17 18:14 RBC 4.44 MCV 90.9 MCHC 33.0 RDW 14.6 MPV 9.5 D Neutrophils % 70.2 Lymphocytes % 20.3 Monocytes % 8.6 Eosinophils % 0.6 Basophils % 0.3 - Medications Given in the ED: ED Medications Discontinued Medications Generic Name Dose Route Start Last Admin Trade Name Garfield PRN Reason Stop Dose Admin Sodium Chloride 1,000 mls @ 1,000 mls/hr 11/28/17 18:24 11/28/17 18:51 Normal Saline - IV 11/28/17 19:23 1,000 mls/hr ASDIR STA Administration <Jenny Feliciano - Last Filed: 11/28/17 22:27> - LABORATORY CBC & Chemistry Diagram: 11/28/17 18:14 11/28/17 20:00 - ADDITIONAL ORDERS Additional order review: Laboratory Results 11/28/17 11/28/17 11/28/17 18:14 18:14 18:14 PT with INR INR PTT (Actin FS) VBG pH 7.34 POC VBG pCO2 49.0 POC VBG pO2 28.8 D Mixed VBG HCO3 25.5 H Sodium Cancelled Potassium Cancelled Chloride Cancelled Carbon Dioxide Cancelled Anion Gap Cancelled BUN Cancelled Creatinine Cancelled Creat Clearance w eGFR Cancelled Random Glucose Cancelled Lactic Acid 2.3 H* Calcium Cancelled Phosphorus Cancelled Magnesium Cancelled Total Bilirubin Cancelled AST Cancelled ALT Cancelled Alkaline Phosphatase Cancelled Creatine Kinase Cancelled Troponin I Cancelled Total Protein Cancelled Albumin Cancelled Acetone, Qual Cancelled 11/28/17 18:14 PT with INR 10.50 INR 0.93 PTT (Actin FS) 29.7 VBG pH POC VBG pCO2 POC VBG pO2 Mixed VBG HCO3 Sodium Potassium Chloride Carbon Dioxide Anion Gap BUN Creatinine Creat Clearance w eGFR Random Glucose Lactic Acid Calcium Phosphorus Magnesium Total Bilirubin AST ALT Alkaline Phosphatase Creatine Kinase Troponin I Total Protein Albumin Acetone, Qual 11/28/17 18:14 RBC 4.44 MCV 90.9 MCHC 33.0 RDW 14.6 MPV 9.5 D Neutrophils % 70.2 Lymphocytes % 20.3 Monocytes % 8.6 Eosinophils % 0.6 Basophils % 0.3 - Medications Given in the ED: ED Medications Discontinued Medications Generic Name Dose Route Start Last Admin Trade Name Garfield PRN Reason Stop Dose Admin Sodium Chloride 1,000 mls @ 1,000 mls/hr 11/28/17 18:24 11/28/17 18:51 Normal Saline - IV 11/28/17 19:23 1,000 mls/hr ASDIR STA Administration <Tracy Dudley - Last Filed: 11/28/17 22:46> Medical Decision Making - Medical Decision Making 11/28/17 22:27 Dr. Palacios was paged via phone answering service at this time requesting a call back for doctor to doctor regarding admission. I have been informed the hospitalist are covering Dr. Palacios admission this evening. <Jenny Feliciano - Last Filed: 11/28/17 22:27> - Medical Decision Making 11/28/17 20:59 pt signed out pending labs and further eval chem hemolized reordered 11/28/17 22:45 pt with CHUCK and hyperglycemia in renal transplant pt -ivf hydration -glucose control -ua pending -will need admission -sq insulin ordered -discussed with Dr. Bar who accepts pt to service <Tracy Dudley - Last Filed: 11/28/17 22:46> *DC/Admit/Observation/Transfer <Jenny Feliciano - Last Filed: 11/28/17 22:27> - Discharge Dispostion Admit: Yes <Tracy Dudley - Last Filed: 11/28/17 22:46> Diagnosis at time of Disposition: CHUCK (acute kidney injury), Hyperglycemia - Discharge Dispostion Condition at time of disposition: Fair - Referrals Referrals: Gt Villela MD [Primary Care Provider] - - Patient Instructions - Post Discharge Activity
[2017-11-28 21:33] LABS: ALBUMIN 3.8 g/dl (3.4-5.0); ANION GAP 7 (8-16); BILIRUBIN,TOTAL 0.4 mg/dL (0.2-1.0); CALCIUM 8.5 mg/dL (8.5-10.1); CHLORIDE 101 mmol/L (98-107); CO2 27 mmol/L (21-32); CREATININE 1.7 mg/dL (0.7-1.3); POTASSIUM 4.7 mmol/L (3.5-5.1); SGOT/AST 11 U/L (15-37); SGPT/ALT 33 U/L (12-78); SODIUM 135 mmol/L (136-145); TOT PROT 6.5 g/dl (6.4-8.2)
[2017-11-28 21:38] LABS: ALK PHOS 102 U/L (45-117); BLOOD UREA NITROGEN 47 mg/dL (7-18)
[2017-11-28 21:53] LABS: GLUCOSE,RANDOM 427 mg/dL (74-106)
[2017-11-28] MEDS ORDERED: SODIUM CHLORIDE 0.9% 1000 ML INFUS.BAG IV ONE (22:26)
--- NOTE | 2017-11-28 22:40 | PN ---
Teaching Attending Note Name of Resident: Vega Meneses ATTENDING PHYSICIAN STATEMENT I saw and evaluated the patient. I reviewed the resident's note and discussed the case with the resident. I agree with the resident's findings and plan as documented. SUBJECTIVE: 77 M with pmhx. of HTN, DM, CAD s/p ND with stents, CABG, HLD, IVC filter, LLeg DVT, Kidney transplant (09), who presented with elevated blood glucose. His daughter note that his blood glucose has been in the 500s. Pt. takes his Humalog /Lantus as prescribed. He also notes urinary frequency, but no cough, chest pain or pressure. PCP: Dr. Wolfe OBJECTIVE: Physical: VS: Vital Signs Period Temp Pulse Resp BP Sys/Mendoza Pulse Ox Last 24 Hr 98.8 F 74 20 148/66 95 GEN: NAD, resting in bed, AA0X3 HEENT: NCAT, PERRL, throat without erythema or exudates CARD: RRR S1, S2 RESP: CTAB ABD: BSx4, NTD to palpation EXT: -C/C/E CBCD WBC 11.0 K/mm3 (4.0-10.0) H 11/28/17 18:14 RBC 4.44 M/mm3 (4.00-5.60) 11/28/17 18:14 Hgb 13.3 GM/dL (11.7-16.9) 11/28/17 18:14 Hct 40.3 % (35.4-49) 11/28/17 18:14 MCV 90.9 fl (80-96) 11/28/17 18:14 MCHC 33.0 g/dl (32.0-35.9) 11/28/17 18:14 RDW 14.6 % (11.9-15.9) 11/28/17 18:14 Plt Count 139 K/MM3 (134-434) D 11/28/17 18:14 MPV 9.5 fl (7.5-11.1) D 11/28/17 18:14 CMP Sodium 135 mmol/L (136-145) L 11/28/17 20:00 Potassium 4.7 mmol/L (3.5-5.1) 11/28/17 20:00 Chloride 101 mmol/L (98-107) 11/28/17 20:00 Carbon Dioxide 27 mmol/L (21-32) 11/28/17 20:00 Anion Gap 7 (8-16) L 11/28/17 20:00 BUN 47 mg/dL (7-18) H D 11/28/17 20:00 Creatinine 1.7 mg/dL (0.7-1.3) H D 11/28/17 20:00 Creat Clearance w eGFR 39.49 (>60) 11/28/17 20:00 Random Glucose 427 mg/dL (74-106) H* D 11/28/17 20:00 Calcium 8.5 mg/dL (8.5-10.1) 11/28/17 20:00 Total Bilirubin 0.4 mg/dL (0.2-1.0) 11/28/17 20:00 AST 11 U/L (15-37) L D 11/28/17 20:00 ALT 33 U/L (12-78) D 11/28/17 20:00 Alkaline Phosphatase 102 U/L (45-117) D 11/28/17 20:00 Total Protein 6.5 g/dl (6.4-8.2) 11/28/17 20:00 Albumin 3.8 g/dl (3.4-5.0) 11/28/17 20:00 CARDIAC ENZYMES Creatine Kinase Cancelled 11/28/17 18:14 Troponin I Cancelled 11/28/17 18:14 Home Medications Medication Instructions Recorded Amlodipine Besylate [Norvasc -] 10 mg PO DAILY 05/17/17 Aspirin [Jena Chewable Aspirin] 81 mg PO HS 05/17/17 Atorvastatin Ca [Lipitor] 10 mg PO HS 05/17/17 Carvedilol [Coreg -] 25 mg PO BID 05/17/17 Docusate Sodium [Colace -] 100 mg PO DAILY 05/17/17 Duloxetine HCl [Cymbalta] 20 mg PO BID 05/17/17 Hydralazine HCl [Apresoline -] 25 mg PO BID 05/17/17 Mycophenolate Sodium [Myfortic] 360 mg PO BID 05/17/17 Prednisone [Deltasone -] 5 mg PO DAILY 05/17/17 Tamsulosin HCl [Flomax] 0.4 mg PO HS 05/17/17 Insulin Sliding Scale [Novolog 0 vial SQ ACHS units 05/20/17 Vial Sliding Scale -] Insulin Sliding Scale [Novolog 1 vial SQ ACHS units 10/15/17 Vial Sliding Scale -] Polyethylene Glycol 3350 [Miralax 17 gm PO DAILY bottle 10/15/17 119 gm Btl -] Sennosides [Senna -] 1 tab PO HS tablet 10/15/17 Doxycycline Hyclate [Vibramycin -] 100 mg PO BID #10 capsule 10/16/17 Insulin (Levemir) [Levemir Flexpen 5 units SQ HS #1 pen 10/16/17 -] CXR: No infilterate- Read Pending UA-Pending ASSESSMENT AND PLAN: 77 M with pmhx. of HTN, DM, CAD s/p ND with stents, CABG, HLD, IVC filter, LLeg DVT, Kidney transplant (), who presented with elevated blood glucose and acute renal failure 1.) Uncontrolled DM - FS - RAISS - On Prednisone - Regular Insulin given in ED - Chk. HgBA1c - Consider increasing Levemir dose to 7 Units - Endo consult 2.) Acute Renal Failure - Check U Lytes - IVF gentle - Nephro consult 3.) Hx. Of Kidney Transplant - C/W Immunosuppressives - Check Levels 3.) CAD - C/W Home meds 5.) HTN - C/W home meds 6.) Dvt Ppx - Heparin [address] in Med-Sx Fall Percautions
[2017-11-28 22:44] LABS: URINE APPEARANCE CLEAR; URINE BILIRUBIN NEGATIVE (NEGATIVE); URINE BLOOD NEGATIVE (NEGATIVE); URINE COLOR LTYELLOW; URINE GLUCOSE (UA) 3+ (NEGATIVE); URINE KETONE NEGATIVE (NEGATIVE); URINE LEUK ESTERASE NEGATIVE (NEGATIVE); URINE NITRITE NEGATIVE (NEGATIVE); URINE PROTEIN NEGATIVE (NEGATIVE); URINE UROBILINOGEN NEGATIVE mg/dL (0.2-1.0)
[2017-11-28] MEDS ORDERED: INSULIN REGULAR HUMAN 100 UNITS/ML *VIAL SQ ONE (22:44)
--- NOTE | 2017-11-28 22:54 | HP ---
CHIEF COMPLAINT: Hyperglycemia, AMS PCP: Dr. Wolfe Source: Patient; limited due to MS HISTORY OF PRESENT ILLNESS: 77 yo man w/ pmh of HTN, DM2, CAD, [place] (s/p stents/CABG), HLD, ESRD (on immunosuppressants, kidney transplant 2008), who presents with elevated blood glucose and AMS from home, brought in by family. Per family, Pt BG levels in 500s on finger stick. Pt has been compliant with home regimen of humalog and levemir. In addition, pt has been increasingly confused according to family. Pt endorses increased urinary frequency, but denies dysuria, hematuria or pyruria. Pt denies any fever/chills, [place]/lightheadness, cough, SOB, CP, rashes, diarrhea or new neuro symptoms. Pt w/ history of multiple UTIs and was recently admitted with LLQ abscess in 10/07. Pt is s/p renal transplant in 2008 and is on chronic immunosuppression. ER course was notable for: (1)Glucose 427 (2)BUN/Cr 47/1.7 (3)WBC 11 Recent Travel: None PAST MEDICAL HISTORY: HLD CAD DM2 HTN [place] s/p (CABG, cardiac stents) DVT/IVC filter ESRD (on immunosuppresants) BPH CHF HLD Multiple UTIs PAST SURGICAL HISTORY: Kidney transplant (2008) CABG Social History: Smoking: no Alcohol: no Drugs: no Family History: Noncontributory Allergies No Known Drug Allergies Allergy (Verified 10/10/17 16:57) HOME MEDICATIONS: Home Medications Medication Instructions Recorded Amlodipine Besylate [Norvasc -] 10 mg PO DAILY 05/17/17 Aspirin [Jena Chewable Aspirin] 81 mg PO HS 05/17/17 Atorvastatin Ca [Lipitor] 10 mg PO HS 05/17/17 Carvedilol [Coreg -] 25 mg PO BID 05/17/17 Docusate Sodium [Colace -] 100 mg PO DAILY 05/17/17 Duloxetine HCl [Cymbalta] 20 mg PO BID 05/17/17 Hydralazine HCl [Apresoline -] 25 mg PO BID 05/17/17 Mycophenolate Sodium [Myfortic] 360 mg PO BID 05/17/17 Prednisone [Deltasone -] 5 mg PO DAILY 05/17/17 Tamsulosin HCl [Flomax] 0.4 mg PO HS 05/17/17 Insulin Sliding Scale [Novolog 0 vial SQ ACHS units 05/20/17 Vial Sliding Scale -] Insulin Sliding Scale [Novolog 1 vial SQ ACHS units 10/15/17 Vial Sliding Scale -] Polyethylene Glycol 3350 [Miralax 17 gm PO DAILY bottle 10/15/17 119 gm Btl -] Sennosides [Senna -] 1 tab PO HS tablet 10/15/17 Doxycycline Hyclate [Vibramycin -] 100 mg PO BID #10 capsule 10/16/17 Insulin (Levemir) [Levemir Flexpen 5 units SQ HS #1 pen 10/16/17 -] REVIEW OF SYSTEMS CONSTITUTIONAL: Absent: fever, chills, diaphoresis, generalized weakness, malaise, loss of appetite, weight change HEENT: Absent: rhinorrhea, nasal congestion, throat pain, throat swelling, difficulty swallowing, mouth swelling, ear pain, eye pain, visual changes CARDIOVASCULAR: Absent: chest pain, syncope, palpitations, irregular heart rate, lightheadedness , peripheral edema RESPIRATORY: Absent: cough, shortness of breath, dyspnea with exertion, orthopnea, wheezing, stridor, hemoptysis GASTROINTESTINAL: Absent: abdominal pain, abdominal distension, nausea, vomiting, diarrhea, constipation, melena, hematochezia GENITOURINARY: frequency, Absent: dysuria, urgency, hesitancy, hematuria, flank pain, genital pain MUSCULOSKELETAL: Absent: myalgia, arthralgia, joint swelling, back pain, neck pain SKIN: Absent: rash, itching, pallor HEMATOLOGIC/IMMUNOLOGIC: Absent: easy bleeding, easy bruising, lymphadenopathy, frequent infections ENDOCRINE: Absent: unexplained weight gain, unexplained weight loss, heat intolerance, cold intolerance NEUROLOGIC: AMS Absent: headache, focal weakness or paresthesias, dizziness, unsteady gait, seizure, mental status changes, bladder or bowel incontinence PSYCHIATRIC: Absent: anxiety, depression, suicidal or homicidal ideation, hallucinations. PHYSICAL EXAMINATION Vital Signs - 24 hr 11/28/17 17:31 Temperature 98.8 F Pulse Rate 74 Respiratory 20 Rate Blood Pressure 148/66 O2 Sat by Pulse 95 Oximetry (%) GENERAL: The patient is awake, alert, and fully oriented, in no acute distress. HEAD: NCAT EYES: R pupil minimally reactive, L reactive to light. Extraocular movements intact, sclera anicteric, conjunctiva clear. No ptosis. ENT: Ears normal, nares patent, oropharynx clear without exudates. Poor dentition. Moist mucous membranes. NECK: Trachea midline, supple, no JVD noted LUNGS: Breath sounds equal, decreased breath sounds at bases. No wheezing or accessory muscle use. HEART: 3/6 systolic ejection murmur at LUSB/RUSB. Regular rate and rhythm, S1, S2. ABDOMEN: 3-4 cm fluctuant abscess w/ central healed necrotic region and surrounding erythema. Soft, nontender, nondistended, normoactive bowel sounds, no guarding, no rebound, no hepatosplenomegaly, no masses. Bladder percussed up to umbilicus. UPPER EXTREMITIES: 2+ pulses, wwp. Distended, tortuous R upper arm vein and thrill in cubital fossa from likely prior fistula. LOWER EXTREMITIES: 2+ pulse, wwp. BL anterior healed scars/lesions, no hair on LEs. R anterior diffuse bruising of george noted on R leg. NEUROLOGICAL: Cranial nerves II through XII grossly intact. Normal speech, gait not observed. PSYCH: Normal mood, normal affect. Laboratory Results - last 24 hr CBC, BMP 11/28/17 18:14 11/28/17 20:00 11/28/17 11/28/17 11/28/17 18:14 18:14 18:14 WBC 11.0 H RBC 4.44 Hgb 13.3 Hct 40.3 MCV 90.9 MCH 30.0 MCHC 33.0 RDW 14.6 Plt Count 139 D MPV 9.5 D Neutrophils % 70.2 Lymphocytes % 20.3 Monocytes % 8.6 Eosinophils % 0.6 Basophils % 0.3 PT with INR 10.50 INR 0.93 PTT (Actin FS) 29.7 VBG pH 7.34 POC VBG pCO2 49.0 POC VBG pO2 28.8 D Mixed VBG HCO3 25.5 H Sodium Potassium Chloride Carbon Dioxide Anion Gap BUN Creatinine Creat Clearance w eGFR Random Glucose Lactic Acid Calcium Phosphorus Magnesium Total Bilirubin AST ALT Alkaline Phosphatase Creatine Kinase Troponin I Total Protein Albumin Acetone, Qual Blood Type Antibody Screen 11/28/17 11/28/17 11/28/17 18:14 18:14 18:14 WBC RBC Hgb Hct MCV MCH MCHC RDW Plt Count MPV Neutrophils % Lymphocytes % Monocytes % Eosinophils % Basophils % PT with INR INR PTT (Actin FS) VBG pH POC VBG pCO2 POC VBG pO2 Mixed VBG HCO3 Sodium Cancelled Potassium Cancelled Chloride Cancelled Carbon Dioxide Cancelled Anion Gap Cancelled BUN Cancelled Creatinine Cancelled Creat Clearance w eGFR Cancelled Random Glucose Cancelled Lactic Acid 2.3 H* Calcium Cancelled Phosphorus Cancelled Magnesium Cancelled Total Bilirubin Cancelled AST Cancelled ALT Cancelled Alkaline Phosphatase Cancelled Creatine Kinase Cancelled Troponin I Cancelled Total Protein Cancelled Albumin Cancelled Acetone, Qual Cancelled Blood Type O POSITIVE Antibody Screen Negative 11/28/17 20:00 WBC RBC Hgb Hct MCV MCH MCHC RDW Plt Count MPV Neutrophils % Lymphocytes % Monocytes % Eosinophils % Basophils % PT with INR INR PTT (Actin FS) VBG pH POC VBG pCO2 POC VBG pO2 Mixed VBG HCO3 Sodium 135 L Potassium 4.7 Chloride 101 Carbon Dioxide 27 Anion Gap 7 L BUN 47 H D Creatinine 1.7 H D Creat Clearance w eGFR 39.49 Random Glucose 427 H* D Lactic Acid Calcium 8.5 Phosphorus Magnesium Total Bilirubin 0.4 AST 11 L D ALT 33 D Alkaline Phosphatase 102 D Creatine Kinase Troponin I Total Protein 6.5 Albumin 3.8 Acetone, Qual Blood Type Antibody Screen EKG: NSR 78, RBBB, LAFB, bifascicular block, LVH with strain, QTC 460 msec, no stemi CXR: No change from prior imaging ASSESSMENT/PLAN: 77 yo man w/ pmh of HTN, DM2, CAD, [place] (s/p stents/CABG), HLD, ESRD (on immunosuppressants, kidney transplant 2008), who presents with elevated blood glucose and AMS from home, brought in by family. #Hyperglycemia - 427 on finger stick; BG in 500s per family; no A-gap, urine ketones negative - ISS, BGM, start home levemir 5u qHS - IVFs #AMS - Neuro eval BID - Monitor for worsening confusion #CHUCK on ESRD - Cr 1.7. Baseline 1.0-1.3 - Renal consulted - Gentle IVFs - Trend Cr, daily BMPs - Urine lytes #Leukocytosis - WBC 11; No fever or signs of infection; on immunosuppresants; UA negative - Fonseca-culture - Trend fever, WBC, lactate - C/w immunosuppresion - Monitor for signs of dysuria - Stat rectal temp #DM2 - ISS - BGM Q4H - c/w home levemir 5u qhs #Kidney Transplant - Continue home tacro, mycophenalate and prednisone at home doses - Trend BUN/Cr - Renal consulted #Urinary Retention/BPH - Monitor for signs of dysuria, retention, dribbing, hematuria - Flomax 0.4 mg #HTN - c/w home meds - Norvasc 10mg, Hydralazine 25mg BID, Coreg 25mg BID #Prior Hx of CAD - Continue home ASA 81mg daily, Coreg 25mg BID, lipitor 10mg daily #HLD - Continue lipitor 10mg daily #Prior DVTs - s/p IVC filter (date unknown) - Heparin SubQ 5000u BID #hx of constipation - Senna, colace - Monitor for diarrhea/constipation #FEN NS 75cc/hr Trend BUN/Cr, monitor lytes Diabetic diet #PPX SubQ Heparin 5000u BID Plan discussed w/ attending, Dr. Yosvany Meneses, PGY1 Visit type - Emergency Visit Emergency Visit: Yes ED Registration Date: 11/28/17 Care time: The patient presented to the Emergency Department on the above date and was hospitalized for further evaluation of their emergent condition. - New Patient This patient is new to me today: Yes Date on this admission: 11/29/17 - Critical Care Critical Care patient: No
[2017-11-28] MEDS: SODIUM CHLORIDE 1,000 ML IV SCH (23:45)
[2017-11-28] MEDS ORDERED: INSULIN REGULAR HUMAN 100 UNITS/ML *VIAL ONE (23:50)
[2017-11-29] MEDS ORDERED: INSULIN REGULAR HUMAN 100 UNITS/ML *VIAL ONE (03:03)
[2017-11-29] MEDS: INSULIN SLIDING SCALE (NOVOLOG) 1 VIAL SQ SCH ×6 (03:12→22:46)
--- NOTE | 2017-11-29 06:38 | HOSP ---
Subjective - Review of Symptoms Subjective: Pt. was reaching for blanket when he slid to floor onto his buttocks Did not hit head Denies any pain - Only on Sq Hep A/C, which was not administered yet Will Monitor Physical Examination Vital Signs: Vital Signs Temperature 98.8 F 11/28/17 17:31 Pulse Rate 75 11/28/17 20:12 Respiratory Rate 18 11/28/17 20:12 Blood Pressure 154/61 11/28/17 23:36 O2 Sat by Pulse Oximetry (%) 98 11/28/17 20:12 Labs: CBC, BMP 11/28/17 18:14 11/28/17 20:00
[2017-11-29] MEDS: HEPARIN NA (PORCINE) 5,000 UNITS/ML 1ML VIAL SQ SCH ×3 (06:54→22:39)
[2017-11-29] MEDS ORDERED: INSULIN SLIDING SCALE (NOVOLOG) 1 VIAL SQ SCH (07:00)
[2017-11-29] MEDS ORDERED: TACROLIMUS 0.5 MG CAPSULE PO SCH (07:00)
[2017-11-29] MEDS ORDERED: metFORMIN HCL 500 MG TABLET (FP) ONE (07:15)
[2017-11-29] MEDS ORDERED: glipiZIDE 5 MG TABLET (FP) ONE (07:15)
[2017-11-29] MEDS ORDERED: LEVOTHYROXINE NA 25 MCG TABLET (FP) ONE (07:15)
[2017-11-29 08:28] LABS: BASO % 0.6 % (0-2.0); EOS % 2.2 % (0-4.5); HEMATOCRIT 41.5 % (35.4-49); HEMOGLOBIN 13.2 GM/dL (11.7-16.9); LYMPH % 16.7 % (8-40); MCH 28.8 pg (25.7-33.7); MCHC 31.9 g/dl (32.0-35.9); MEAN CELL VOLUME 90.4 fl (80-96); MONO % 13.2 % (3.8-10.2); NEUT % 67.3 % (42.8-82.8); PLATELET COUNT 133 K/MM3 (134-434); RBC 4.59 M/mm3 (4.00-5.60); RDW 15.1 % (11.9-15.9); WHITE BLOOD COUNT 10.4 K/mm3 (4.0-10.0)
[2017-11-29 08:36] LABS: CHLORIDE 106 mmol/L (98-107); POTASSIUM 4.3 mmol/L (3.5-5.1); SODIUM 138 mmol/L (136-145)
[2017-11-29 08:42] LABS: ALBUMIN 3.5 g/dl (3.4-5.0); ALK PHOS 70 U/L (45-117); ANION GAP 6 (8-16); BILIRUBIN,TOTAL 0.5 mg/dL (0.2-1.0); BLOOD UREA NITROGEN 31 mg/dL (7-18); CALCIUM 8.6 mg/dL (8.5-10.1); CO2 26 mmol/L (21-32); CREATININE 1.2 mg/dL (0.7-1.3); GLUCOSE,RANDOM 180 mg/dL (74-106); MAGNESIUM 1.9 mg/dL (1.8-2.4); PHOSPHOROUS 2.3 mg/dL (2.5-4.9); SGOT/AST 10 U/L (15-37); SGPT/ALT 30 U/L (12-78); TOT PROT 6.2 g/dl (6.4-8.2)
[2017-11-29 08:46] LABS: INR 0.98 (0.82-1.09); PROTHROMBIN TIME (PATIENT) 11.1 SEC (9.98-11.88)
[2017-11-29] MEDS ORDERED: NAPH,MB-DB/K PH,MBDB POWDER PACKET PO ONE (09:30)
[2017-11-29 10:43] LABS: OSMOLALITY,SERUM 297 mosm/kg (278-305)
[2017-11-29] MEDS: DOCUSATE SODIUM 100 MG CAPSULE (FP) PO SCH (10:48)
[2017-11-29] MEDS: CARVEDILOL 25 MG TABLET (FP) PO SCH ×2 (10:48→22:10)
[2017-11-29] MEDS: hydrALAZINE HCL 25 MG TABLET (FP) PO SCH ×2 (10:48→22:10)
[2017-11-29] MEDS: DULoxetine HCL 20 MG CAPSULE.DR (FP) PO SCH ×2 (10:49→22:10)
[2017-11-29] MEDS: predniSONE 5 MG TABLET (UD) PO SCH (10:50)
[2017-11-29] MEDS: MYCOPHENOLATE SODIUM 360 MG TABLET.DR PO SCH ×2 (10:51→22:10)
[2017-11-29] MEDS: amLODIPine BESYLATE 10 MG TABLET (FP) PO SCH (10:51)
--- NOTE | 2017-11-29 15:12 | EKG ---
Test Reason : Blood Pressure : / mmHG Vent. Rate : 078 BPM Atrial Rate : 078 BPM P-R Int : 168 ms QRS Dur : 150 ms QT Int : 404 ms P-R-T Axes : 016 -53 104 degrees QTc Int : 460 ms NORMAL SINUS RHYTHM RIGHT BUNDLE BRANCH BLOCK LEFT ANTERIOR FASCICULAR BLOCK BIFASCICULAR BLOCK LEFT VENTRICULAR HYPERTROPHY WITH REPOLARIZATION ABNORMALITY ABNORMAL ECG WHEN COMPARED WITH ECG OF 17-MAY-2017 17:05, NO SIGNIFICANT CHANGE WAS FOUND Confirmed by Juno Arriaga MD ([id number]) on 11/29/2017 3:11:43 PM Referred By: Confirmed By:Juno Arriaga MD
--- NOTE | 2017-11-29 15:55 | CONSULT ---
Consult Consult Specialty:: Nephrology Reason for Consultation:: kidney transplant - History of Present Illness Chief Complaint: hyperglycemia History of Present Illness: Pt is a 77 year old male with pmhx of ESRD, kidney transplant, DM, CAD, DVT and CABG who present to the ER with elevated blood sugar. He was having blood sugar reading of greater than 400 at home. He is a poor historian. I was called to evaluate him for elevated creatinine. He denies shortness of breath or palpitations. He denies dysuria or hematuria. His renal function improved with hydration. - History Source History Provided By: Patient, Medical Record - Past Medical History Cardio/Vascular: Yes: CAD (CABG), HTN, Other (PAD, heel osteo in 04/05) Renal/: Yes: Renal Failure, Renal Inusuff, Hemodialysis (in past prior to renal transplant 2008), Other (S/P Kidney tranplant 2008. 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) Endocrine: Yes: Diabetes Mellitus - Past Surgical History Past Surgical History: Yes: AV Fistula/Graft (right upper arm), CABG, Kidney Transplant (right 2009) - Alcohol/Substance Use Hx Alcohol Use: No - Smoking History Smoking history: Never smoked Have you smoked in the past 12 months: No Aproximately how many cigarettes per day: 0 - Social History Usual Living Arrangement: Alone ADL: Support Services History of Recent Travel: No Home Medications - Allergies Allergies/Adverse Reactions: Allergies Allergy/AdvReac Type Severity Reaction Status Date / Time No Known Drug Allergies Allergy Verified 10/10/17 16:57 - Home Medications Home Medications: Ambulatory Orders Amlodipine Besylate [Norvasc -] 10 mg PO DAILY 05/17/17 Aspirin [Jena Chewable Aspirin] 81 mg PO HS 05/17/17 Atorvastatin Ca [Lipitor] 10 mg PO HS 05/17/17 Carvedilol [Coreg -] 25 mg PO BID 05/17/17 Docusate Sodium [Colace -] 100 mg PO DAILY 05/17/17 Duloxetine HCl [Cymbalta] 20 mg PO BID 05/17/17 Hydralazine HCl [Apresoline -] 25 mg PO BID 05/17/17 Mycophenolate Sodium [Myfortic] 360 mg PO BID 05/17/17 Prednisone [Deltasone -] 5 mg PO DAILY 05/17/17 Tamsulosin HCl [Flomax] 0.4 mg PO HS 05/17/17 Insulin Sliding Scale [Novolog Vial Sliding Scale -] 0 vial SQ ACHS units 05/20 Acetaminophen [Tylenol .Regular Strength -] 650 mg PO Q4H PRN tablet 11/29/17 Insulin (Levemir) [Levemir Flexpen -] 30 units SQ HS #1 pen 11/29/17 Tacrolimus 1 mg PO BID 11/29/17 Family Disease History - Family Disease History Family History: Denies Review of Systems - Review of Systems Constitutional: reports: No Symptoms Eyes: reports: No Symptoms HENT: reports: No Symptoms Neck: reports: No Symptoms Cardiovascular: reports: No Symptoms Respiratory: reports: No Symptoms Gastrointestinal: reports: No Symptoms Genitourinary: reports: No Symptoms Integumentary: reports: No Symptoms Endocrine: reports: Other (hyperglycemia) Physical Exam Vital Signs: Vital Signs Temperature 98.1 F 11/29/17 10:00 Pulse Rate 81 11/29/17 10:00 Respiratory Rate 20 11/29/17 10:00 Blood Pressure 160/73 11/29/17 10:00 O2 Sat by Pulse Oximetry (%) 98 11/29/17 06:52 Constitutional: Yes: Calm Eyes: Yes: Conjunctiva Clear HENT: Yes: Atraumatic Neck: Yes: Supple Cardiovascular: Yes: S1, S2 Gastrointestinal: Yes: Soft Renal/: Yes: Other (graft soft and non tender) Musculoskeletal: Yes: WNL Edema: No Neurological: Yes: Oriented Psychiatric: Yes: Oriented Labs: CBC, BMP 11/29/17 07:30 11/29/17 07:30 Laboratory Tests 10/14/17 10/15/17 11/28/17 06:00 07:00 20:00 WBC Hgb Sodium 135 L Potassium BUN 47 H D Creatinine 1.1 1.0 1.7 H D Random Glucose Urine Protein Urine Glucose (UA) Urine Blood 11/28/17 11/29/17 11/29/17 22:10 07:30 07:30 WBC 10.4 H Hgb 13.2 Sodium 138 Potassium 4.3 BUN Creatinine 1.2 D Random Glucose 180 H D Urine Protein Negative Urine Glucose (UA) 3+ H Urine Blood Negative Imaging - Results Chest X-ray: Report Reviewed Problem List - Problems (1) Dehydration Code(s): E86.0 - DEHYDRATION (2) DM2 (diabetes mellitus, type 2) Code(s): E11.9 - TYPE 2 DIABETES MELLITUS WITHOUT COMPLICATIONS (3) Hyperglycemia Code(s): R73.9 - HYPERGLYCEMIA, UNSPECIFIED (4) H/O kidney transplant Code(s): Z94.0 - KIDNEY TRANSPLANT STATUS Assessment/Plan Current Medications Generic Name Dose Route Start Last Admin Trade Name Freq PRN Reason Stop Dose Admin Acetaminophen 650 mg 11/28/17 23:36 Tylenol - PO Q4H PRN FEVER OR PAIN Amlodipine Besylate 10 mg 11/29/17 10:00 11/29/17 10:51 Norvasc - PO 10 mg DAILY HUGO Administration Aspirin 81 mg 11/29/17 22:00 Asa - PO HS HUGO Atorvastatin Calcium 10 mg 11/29/17 22:00 Lipitor - PO HS HUGO Carvedilol 25 mg 11/29/17 10:00 11/29/17 10:48 Coreg - PO 25 mg BID HUGO Administration Docusate Sodium 100 mg 11/29/17 10:00 11/29/17 10:48 Colace - PO 100 mg DAILY HUGO Administration Duloxetine HCl 20 mg 11/29/17 10:00 11/29/17 10:49 Cymbalta - PO 20 mg BID HUGO Administration Heparin Sodium (Porcine) 5,000 unit 11/29/17 06:00 11/29/17 14:23 Heparin - SQ Not Given TID HUGO Hydralazine HCl 25 mg 11/29/17 10:00 11/29/17 10:48 Apresoline - PO 25 mg BID HUGO Administration Sodium Chloride 1,000 mls @ 75 mls/hr 11/28/17 23:45 11/28/17 23:45 Normal Saline - IV 75 mls/hr [facility] Administration Insulin Aspart 1 vial 11/29/17 02:00 11/29/17 14:24 Novolog Vial Sliding Scale - SQ Not Given Q4[facility] Protocol Insulin Detemir 5 units 11/29/17 22:00 Levemir Vial SQ HS HUGO Mycophenolate Sodium 360 mg 11/29/17 10:00 11/29/17 10:51 Mycophenolic Acid PO 360 mg BID HUGO Administration Prednisone 5 mg 11/29/17 10:00 11/29/17 10:50 Deltasone - PO 5 mg DAILY [facility] Administration Senna 1 tab 11/29/17 22:00 Senna - PO HS HUGO Tacrolimus 1 mg 11/29/17 22:00 Prograf PO BID HUGO Tamsulosin HCl 0.4 mg 11/29/17 22:00 Flomax - PO HS HUGO Impression 1. CKD 2. kidney transplant 3. DM 4. hx of syncope 5. HTN 6. hyperlipidemia 7. dehydration Plan - renal function is improved - cont with fluids - will need diabetic meds adjusted - elevated creatinine likely from dehydration - cont prograf, mycophenolate and prednisone - spoke to medical team, pt will go home today. He can follow in the office with me to have his prograf level checked
--- NOTE | 2017-11-29 16:44 | PN ---
Teaching Attending Note Name of Resident: Juhi Bernal ATTENDING PHYSICIAN STATEMENT I saw and evaluated the patient. I reviewed the resident's note and discussed the case with the resident. I agree with the resident's findings and plan as documented. SUBJECTIVE:no symptoms at this time. states his daughter injects his insulin for him. deneis Cp, SOB, fever, chills, N/V/C/D states he slid out of bed this Am. did not strike head. was alert during event OBJECTIVE: Last Vital Signs Temp Pulse Resp BP Pulse Ox 98.1 F 81 20 160/73 98 11/29/17 10:00 11/29/17 10:00 11/29/17 10:00 11/29/17 10:00 11/29/17 06:52 General NAD, CV S1 S2+ Lungs CTA anteriorly ASSESSMENT AND PLAN: 77yo M with PMH DM, HTN, CAD s/p stents/CABG, IVC filter, ESRD s/p renal transplant 2008 presented to the ER with hyperglycemia 1. Hyperglycemia- as per daughter, whom student spoke with, she administers insulin and tresiba. no recent changes to medication. Sugars controlled after minimal coverage. plan d/w PMD and mixed signal design engineer. who instructs for pt to hold metformin. and cont levemir/tresiba at this time. will f/u with pt on Tuesday 2. CHUCK- likely due to hyperglycemia induced dehydration. resolved after IVF 3. Pseudohyponatremia 4. Lactic acidosis- due to metformin. hold on discharge 5. Leukocytosis- likely stress induced. no signs of infection. UA negative. no indication for abx 6. S/p renal transplant- cont tacrolimus/prednisone/mycophenolate 7. d/c home wiht close follow up with Endocrine.
--- NOTE | 2017-11-29 20:31 | PN ---
Physical Exam: SUBJECTIVE: Patient seen and examined. AAOx2 to self and place. Pt reports daughter injects insulin for him. Daughter reports pt is compliant with medications. Pt denies pain. Pt slid out of bed this morning while reaching for a blanket, did not strike his head and no LOC. Event occurred prior to first dose of Heparin and mental status stable after event. No fever, chills. OBJECTIVE: Vital Signs Period Temp Pulse Resp BP Sys/Mendoza Pulse Ox Last 24 Hr 97.9 F-98.6 F 78-81 18-20 124-160/42-74 93-98 GENERAL: The patient is awake, alert, and fully oriented, in no acute distress. LUNGS: Breath sounds equal, clear to auscultation bilaterally, no wheezes, no crackles, no accessory muscle use. HEART: Regular rate and rhythm, S1, S2 without murmur, rub or gallop. ABDOMEN: Soft, nontender, nondistendedno guarding. EXTREMITIES: Warm, well-perfused, no edema. PSYCH: Normal mood, normal affect. SKIN: Warm, dry, normal turgor, no rashes or lesions noted Laboratory Results - last 24 hr 11/28/17 11/28/17 11/28/17 17:40 18:14 20:00 WBC RBC Hgb Hct MCV MCH MCHC RDW Plt Count MPV Neutrophils % Lymphocytes % Monocytes % Eosinophils % Basophils % PT with INR INR Sodium 135 L Potassium 4.7 Chloride 101 Carbon Dioxide 27 Anion Gap 7 L BUN 47 H D Creatinine 1.7 H D Creat Clearance w eGFR 39.49 POC Glucometer > 400 Random Glucose 427 H* D Serum Osmolality Calcium 8.5 Phosphorus Magnesium Total Bilirubin 0.4 AST 11 L D ALT 33 D Alkaline Phosphatase 102 D Total Protein 6.5 Albumin 3.8 Urine Color Urine Appearance Urine pH Ur Specific Warren Urine Protein Urine Glucose (UA) Urine Ketones Urine Blood Urine Nitrite Urine Bilirubin Urine Urobilinogen Ur Leukocyte Esterase Urine Osmolality Ur Random Sodium Urine Creatinine Acetone, Qual Blood Type O POSITIVE Antibody Screen Negative 11/28/17 11/28/17 11/29/17 20:33 22:10 02:58 WBC RBC Hgb Hct MCV MCH MCHC RDW Plt Count MPV Neutrophils % Lymphocytes % Monocytes % Eosinophils % Basophils % PT with INR INR Sodium Potassium Chloride Carbon Dioxide Anion Gap BUN Creatinine Creat Clearance w eGFR POC Glucometer [phone] Random Glucose Serum Osmolality Calcium Phosphorus Magnesium Total Bilirubin AST ALT Alkaline Phosphatase Total Protein Albumin Urine Color Ltyellow Urine Appearance Clear Urine pH 5.0 Ur Specific Warren 1.014 Urine Protein Negative Urine Glucose (UA) 3+ H Urine Ketones Negative Urine Blood Negative Urine Nitrite Negative Urine Bilirubin Negative Urine Urobilinogen Negative Ur Leukocyte Esterase Negative Urine Osmolality Ur Random Sodium Urine Creatinine Acetone, Qual Negative Blood Type Antibody Screen 11/29/17 11/29/17 11/29/17 05:39 07:30 07:30 WBC 10.4 H RBC 4.59 Hgb 13.2 Hct 41.5 MCV 90.4 MCH 28.8 MCHC 31.9 L RDW 15.1 Plt Count 133 L MPV 9.0 Neutrophils % 67.3 Lymphocytes % 16.7 Monocytes % 13.2 H Eosinophils % 2.2 D Basophils % 0.6 PT with INR INR Sodium 138 Potassium 4.3 Chloride 106 Carbon Dioxide 26 Anion Gap 6 L BUN 31 H D Creatinine 1.2 D Creat Clearance w eGFR 59.02 POC Glucometer Random Glucose 180 H D Serum Osmolality 297 Calcium 8.6 Phosphorus 2.3 L D Magnesium 1.9 Total Bilirubin 0.5 D AST 10 L ALT 30 Alkaline Phosphatase 70 D Total Protein 6.2 L Albumin 3.5 Urine Color Urine Appearance Urine pH Ur Specific Warren Urine Protein Urine Glucose (UA) Urine Ketones Urine Blood Urine Nitrite Urine Bilirubin Urine Urobilinogen Ur Leukocyte Esterase Urine Osmolality 554 Ur Random Sodium Urine Creatinine Acetone, Qual Blood Type Antibody Screen 11/29/17 11/29/17 11/29/17 07:30 10:20 10:20 WBC RBC Hgb Hct MCV MCH MCHC RDW Plt Count MPV Neutrophils % Lymphocytes % Monocytes % Eosinophils % Basophils % PT with INR 11.10 INR 0.98 Sodium Potassium Chloride Carbon Dioxide Anion Gap BUN Creatinine Creat Clearance w eGFR POC Glucometer Random Glucose Serum Osmolality Calcium Phosphorus Magnesium Total Bilirubin AST ALT Alkaline Phosphatase Total Protein Albumin Urine Color Urine Appearance Urine pH Ur Specific Warren Urine Protein Urine Glucose (UA) Urine Ketones Urine Blood Urine Nitrite Urine Bilirubin Urine Urobilinogen Ur Leukocyte Esterase Urine Osmolality Ur Random Sodium 73 Urine Creatinine 84.3 Acetone, Qual Blood Type Antibody Screen 11/29/17 11/29/17 11:01 17:14 WBC RBC Hgb Hct MCV MCH MCHC RDW Plt Count MPV Neutrophils % Lymphocytes % Monocytes % Eosinophils % Basophils % PT with INR INR Sodium Potassium Chloride Carbon Dioxide Anion Gap BUN Creatinine Creat Clearance w eGFR POC Glucometer 236 186 Random Glucose Serum Osmolality Calcium Phosphorus Magnesium Total Bilirubin AST ALT Alkaline Phosphatase Total Protein Albumin Urine Color Urine Appearance Urine pH Ur Specific Warren Urine Protein Urine Glucose (UA) Urine Ketones Urine Blood Urine Nitrite Urine Bilirubin Urine Urobilinogen Ur Leukocyte Esterase Urine Osmolality Ur Random Sodium Urine Creatinine Acetone, Qual Blood Type Antibody Screen Active Medications Generic Name Dose Route Start Last Admin Trade Name Garfield PRN Reason Stop Dose Admin Acetaminophen 650 mg 11/28/17 23:36 Tylenol - PO Q4H PRN FEVER OR PAIN Amlodipine Besylate 10 mg 11/29/17 10:00 11/29/17 10:51 Norvasc - PO 10 mg DAILY [facility] Administration Aspirin 81 mg 11/29/17 22:00 Asa - PO HS [facility] Atorvastatin Calcium 10 mg 11/29/17 22:00 Lipitor - PO HS [facility] Carvedilol 25 mg 11/29/17 10:00 11/29/17 10:48 Coreg - PO 25 mg BID [facility] Administration Docusate Sodium 100 mg 11/29/17 10:00 11/29/17 10:48 Colace - PO 100 mg DAILY [facility] Administration Duloxetine HCl 20 mg 11/29/17 10:00 11/29/17 10:49 Cymbalta - PO 20 mg BID [facility] Administration Heparin Sodium (Porcine) 5,000 unit 11/29/17 06:00 11/29/17 14:23 Heparin - SQ Not Given TID [facility] Hydralazine HCl 25 mg 11/29/17 10:00 11/29/17 10:48 Apresoline - PO 25 mg BID [facility] Administration Sodium Chloride 1,000 mls @ 75 mls/hr 11/28/17 23:45 11/28/17 23:45 Normal Saline - IV 75 mls/hr ASDIR [facility] Administration Insulin Aspart 1 vial 11/29/17 02:00 11/29/17 17:15 Novolog Vial Sliding Scale - SQ 2 unit Q4HPO [facility] Administration Protocol Insulin Detemir 5 units 11/29/17 22:00 Levemir Vial SQ HS [facility] Mycophenolate Sodium 360 mg 11/29/17 10:00 11/29/17 10:51 Mycophenolic Acid PO 360 mg BID [facility] Administration Prednisone 5 mg 11/29/17 10:00 11/29/17 10:50 Deltasone - PO 5 mg DAILY [facility] Administration Senna 1 tab 11/29/17 22:00 Senna - PO HS [facility] Tacrolimus 1 mg 11/29/17 22:00 Prograf PO BID [facility] Tamsulosin HCl 0.4 mg 11/29/17 22:00 Flomax - PO HS [facility] IMAGIN11/28/17 CXR -> no evidence of CHF, PTX, or airspace opacities visualized in lungs. Left lower lung obscured by cardiac silhouette. 11/29/[address] -> no definite interval change since 05/12/17 CT. Small chronic Left thalamocapsular infarct. Moderate to marked periventricular and subcortical chronic microvascular ischemic changes. Interval development of mild sphenoid sinus mucosal thickening noted consistent with sinusitis which is probably chronic or subacute. Mild paulo chronic maxillary and ethmoid sinusitis. ASSESSMENT/PLAN: 77M with PMH of DM, htn, CAD s/p stents/CABG, DVTs s/p IVC filter, ESRD s/p renal transplant 2008, presents with hyperglycemia. # hyperlycemia / DM - plan discussed with PCP/Java Lead Architect (Dr. Villela) who recommends D/C Metformin 2/2 kidney injury and lactic acidosis - Levemir - Novolog SSI - BGMs # CHUCK - likely 2/2 hyperglycemia induced dehydration - resolved with IVFs - Renal (Dr. Peerz) recs appreciated: continue Prograf, Mycophenolic acid , and Prednisone # leukocytosis - likely stress induced - no s/s of infection - blood cultures (-) x 24 hrs - UA (-) for UTI # htn - continue home meds of Norvasc, Hydralazine, and Coreg # hld - continue home med of Lipitor # hypophosphatemia - repleted with 1 packet of Neutraphos # FEN - Fluids: NS @ 75 ml/hr - Electrolytes: continue to monitor - Nutrition: diabetic diet # Prophylaxis - DVT ppx with Heparin TID - deconditioning ppx with PT Visit type - Emergency Visit Emergency Visit: Yes ED Registration Date: 11/28/17 Care time: The patient presented to the Emergency Department on the above date and was hospitalized for further evaluation of their emergent condition. - New Patient This patient is new to me today: Yes Date on this admission: 11/29/17 - Critical Care Critical Care patient: No
[2017-11-29] MEDS: ASPIRIN 81 MG CHEWABLE TABLETS PO SCH (22:10)
[2017-11-29] MEDS: TACROLIMUS ANHYDROUS 1 MG CAPSULE PO SCH (22:10)
[2017-11-29] MEDS: ATORVASTATIN CA 10 MG TABLET (FP) PO SCH (22:10)
[2017-11-29] MEDS: SENNOSIDES 8.6MG TABLET (FP) PO SCH (22:10)
[2017-11-29] MEDS: TAMSULOSIN HCL 0.4 MG CAP.ER.24H (FP) PO SCH (22:10)
[2017-11-29] MEDS ORDERED: DOCUSATE SODIUM 100 MG CAPSULE (FP) PO ONE (22:23)
[2017-11-29] MEDS ORDERED: amLODIPine BESYLATE 5 MG TABLET (FP) ONE (22:23)
[2017-11-29] MEDS ORDERED: INSULIN DETEMIR 100 UNITS/ML MDV SQ ONE (22:24)
[2017-11-29] MEDS: INSULIN DETEMIR 100 UNITS/ML MDV SQ SCH (22:37)
[2017-11-29] MEDS ORDERED: INSULIN (NOVOLOG) ASPART 100 UNITS/ML 10ML VIAL ONE (22:43)
--- NOTE | 2017-11-30 00:13 | CONSULT ---
Consult Consult Specialty:: endcorine Referred by:: li leo do Reason for Consultation:: diabetes mellitus - History of Present Illness Chief Complaint: high sugars History of Present Illness: 77 yo man w/ pmh of HTN, DM2, CAD, HI (s/p stents/CABG), HLD, ESRD (on immunosuppressants, kidney transplant 2008), who presents with elevated blood glucose and AMS from home, daughter reports , Pt BG levels in 500s on finger stick. Pt has been compliant with home regimen of humalog and levemir. tried several times to give multiple doses of insulin yet sugar was not improving he was getting more lethargic and confused she was advised to present to ed - History Source History Provided By: Patient - Past Medical History Cardio/Vascular: Yes: CAD (CABG), HTN, Other (PAD, heel osteo in 04/05) Renal/: Yes: Renal Failure, Renal Inusuff, Hemodialysis (in past prior to renal transplant 2008), Other (S/P Kidney tranplant 2008. 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) Endocrine: Yes: Diabetes Mellitus - Past Surgical History Past Surgical History: Yes: AV Fistula/Graft (right upper arm), CABG, Kidney Transplant (right 2008) - Alcohol/Substance Use Hx Alcohol Use: No - Smoking History Smoking history: Never smoked Have you smoked in the past 12 months: No Aproximately how many cigarettes per day: 0 - Social History Usual Living Arrangement: Alone ADL: Support Services History of Recent Travel: No Home Medications - Allergies Allergies/Adverse Reactions: Allergies Allergy/AdvReac Type Severity Reaction Status Date / Time No Known Drug Allergies Allergy Verified 10/10/17 16:57 - Home Medications Home Medications: Ambulatory Orders Amlodipine Besylate [Norvasc -] 10 mg PO DAILY 05/17/17 Aspirin [Jena Chewable Aspirin] 81 mg PO HS 05/17/17 Atorvastatin Ca [Lipitor] 10 mg PO HS 05/17/17 Carvedilol [Coreg -] 25 mg PO BID 05/17/17 Docusate Sodium [Colace -] 100 mg PO DAILY 05/17/17 Duloxetine HCl [Cymbalta] 20 mg PO BID 05/17/17 Hydralazine HCl [Apresoline -] 25 mg PO BID 05/17/17 Mycophenolate Sodium [Myfortic] 360 mg PO BID 05/17/17 Prednisone [Deltasone -] 5 mg PO DAILY 05/17/17 Tamsulosin HCl [Flomax] 0.4 mg PO HS 05/17/17 Insulin Sliding Scale [Novolog Vial Sliding Scale -] 0 vial SQ ACHS units 05/20 Acetaminophen [Tylenol .Regular Strength -] 650 mg PO Q4H PRN tablet 11/29/17 Insulin (Levemir) [Levemir Flexpen -] 30 units SQ HS #1 pen 11/29/17 Tacrolimus 1 mg PO BID 11/29/17 Review of Systems - Review of Systems Constitutional: reports: Lethargy, Weakness Eyes: reports: Blurred Vision HENT: reports: No Symptoms Neck: reports: No Symptoms Cardiovascular: reports: Shortness of Breath Respiratory: reports: SOB on Exertion Gastrointestinal: reports: Bloating Genitourinary: reports: No Symptoms Breasts: reports: No Symptoms Reported Musculoskeletal: reports: Joint Swelling, Muscle Pain, Muscle Weakness Integumentary: reports: No Symptoms Neurological: reports: Unsteady Gait, Weakness Physical Exam Vital Signs: Vital Signs Temperature 97.9 F 11/29/17 14:30 Pulse Rate 80 11/29/17 16:45 Respiratory Rate 18 11/29/17 16:45 Blood Pressure 156/42 11/29/17 16:45 O2 Sat by Pulse Oximetry (%) 96 11/29/17 16:45 Constitutional: Yes: Anxious Eyes: Yes: EOM Intact HENT: Yes: Normocephalic Neck: Yes: Trachea Midline Cardiovascular: Yes: Regular Rate and Rhythm Respiratory: Yes: CTA Bilaterally Gastrointestinal: Yes: Normal Bowel Sounds ...Rectal Exam: Yes: Deferred Renal/: Yes: WNL Breast(s): Yes: WNL Musculoskeletal: Yes: Muscle Weakness Neurological: Yes: Alert, Oriented Labs: CBC, BMP 11/29/17 07:30 11/29/17 07:30 Problem List - Problems (1) DM2 (diabetes mellitus, type 2) Code(s): E11.9 - TYPE 2 DIABETES MELLITUS WITHOUT COMPLICATIONS (2) Dehydration Code(s): E86.0 - DEHYDRATION (3) Fall Code(s): W19.XXXA - UNSPECIFIED FALL, INITIAL ENCOUNTER Qualifiers: Encounter type: initial encounter Qualified Code(s): W19.XXXA - Unspecified fall, initial encounter (4) Hyperglycemia Code(s): R73.9 - HYPERGLYCEMIA, UNSPECIFIED (5) Leukocytosis Code(s): D72.829 - ELEVATED WHITE BLOOD CELL COUNT, UNSPECIFIED Qualifiers: Leukocytosis type: unspecified Qualified Code(s): D72.829 - Elevated white blood cell count, unspecified Assessment/Plan Current Active Problems CHUCK (acute kidney injury) (Acute) DM2 (diabetes mellitus, type 2) (Acute) Dehydration (Acute) Fall (Acute) Hyperglycemia (Acute) Hypoglycemia (Acute) Leukocytosis (Acute) H/O kidney transplant (Chronic) HTN (hypertension) (Chronic) Hx of CABG (Chronic) Immunocompromised patient (Chronic) Kidney transplant recipient (Chronic) Abnormal Lab Results 11/29/17 11/29/17 07:30 07:30 WBC 10.4 H MCHC 31.9 L Plt Count 133 L Monocytes % 13.2 H Anion Gap 6 L BUN 31 H D Random Glucose 180 H D Phosphorus 2.3 L D AST 10 L Total Protein 6.2 L Laboratory Results - last 24 hr 11/28/17 11/29/17 11/29/17 17:40 02:58 05:39 WBC RBC Hgb Hct MCV MCH MCHC RDW Plt Count MPV Neutrophils % Lymphocytes % Monocytes % Eosinophils % Basophils % PT with INR INR Sodium Potassium Chloride Carbon Dioxide Anion Gap BUN Creatinine Creat Clearance w eGFR POC Glucometer > [phone] Random Glucose Serum Osmolality Calcium Phosphorus Magnesium Total Bilirubin AST ALT Alkaline Phosphatase Total Protein Albumin Urine Osmolality 554 Ur Random Sodium Urine Creatinine 11/29/17 11/29/17 11/29/17 07:30 07:30 07:30 WBC 10.4 H RBC 4.59 Hgb 13.2 Hct 41.5 MCV 90.4 MCH 28.8 MCHC 31.9 L RDW 15.1 Plt Count 133 L MPV 9.0 Neutrophils % 67.3 Lymphocytes % 16.7 Monocytes % 13.2 H Eosinophils % 2.2 D Basophils % 0.6 PT with INR 11.10 INR 0.98 Sodium 138 Potassium 4.3 Chloride 106 Carbon Dioxide 26 Anion Gap 6 L BUN 31 H D Creatinine 1.2 D Creat Clearance w eGFR 59.02 POC Glucometer Random Glucose 180 H D Serum Osmolality 297 Calcium 8.6 Phosphorus 2.3 L D Magnesium 1.9 Total Bilirubin 0.5 D AST 10 L ALT 30 Alkaline Phosphatase 70 D Total Protein 6.2 L Albumin 3.5 Urine Osmolality Ur Random Sodium Urine Creatinine 11/29/17 11/29/17 11/29/17 10:20 10:20 11:01 WBC RBC Hgb Hct MCV MCH MCHC RDW Plt Count MPV Neutrophils % Lymphocytes % Monocytes % Eosinophils % Basophils % PT with INR INR Sodium Potassium Chloride Carbon Dioxide Anion Gap BUN Creatinine Creat Clearance w eGFR POC Glucometer 236 Random Glucose Serum Osmolality Calcium Phosphorus Magnesium Total Bilirubin AST ALT Alkaline Phosphatase Total Protein Albumin Urine Osmolality Ur Random Sodium 73 Urine Creatinine 84.3 11/29/17 17:14 WBC RBC Hgb Hct MCV MCH MCHC RDW Plt Count MPV Neutrophils % Lymphocytes % Monocytes % Eosinophils % Basophils % PT with INR INR Sodium Potassium Chloride Carbon Dioxide Anion Gap BUN Creatinine Creat Clearance w eGFR POC Glucometer 186 Random Glucose Serum Osmolality Calcium Phosphorus Magnesium Total Bilirubin AST ALT Alkaline Phosphatase Total Protein Albumin Urine Osmolality Ur Random Sodium Urine Creatinine plan: bgm qid novolog insulin doses levemir 20 units am levemir 5 hunits hs
[2017-11-30] MEDS: SODIUM CHLORIDE 1,000 ML IV SCH (00:41)
[2017-11-30] MEDS ORDERED: HEPARIN NA (PORCINE) 5,000 UNITS/ML 1ML VIAL ONE (06:21)
[2017-11-30] MEDS: HEPARIN NA (PORCINE) 5,000 UNITS/ML 1ML VIAL SQ SCH ×3 (06:26→22:09)
[2017-11-30 08:00] LABS: HEMATOCRIT 36.5 % (35.4-49); HEMOGLOBIN 11.6 GM/dL (11.7-16.9); MCH 28.8 pg (25.7-33.7); MCHC 31.8 g/dl (32.0-35.9); MEAN CELL VOLUME 90.6 fl (80-96); MEAN PLT VOLUME 9.4 fl (7.5-11.1); PLATELET COUNT 124 K/MM3 (134-434); RBC 4.03 M/mm3 (4.00-5.60); RDW 15.1 % (11.9-15.9); WHITE BLOOD COUNT 10.7 K/mm3 (4.0-10.0)
[2017-11-30] MEDS ORDERED: INSULIN DETEMIR 100 UNITS/ML MDV SQ ONE (08:15)
[2017-11-30] MEDS ORDERED: INSULIN (NOVOLOG) ASPART 100 UNITS/ML 10ML VIAL ONE (08:16)
[2017-11-30] MEDS: INSULIN DETEMIR 100 UNITS/ML MDV SQ SCH ×2 (08:17→22:15)
[2017-11-30] MEDS: INSULIN SLIDING SCALE (NOVOLOG) 1 VIAL SQ SCH ×4 (08:18→22:16)
[2017-11-30 08:39] LABS: ANION GAP 8 (8-16); BLOOD UREA NITROGEN 20 mg/dL (7-18); CALCIUM 8.2 mg/dL (8.5-10.1); CHLORIDE 106 mmol/L (98-107); CO2 23 mmol/L (21-32); GLUCOSE,RANDOM 171 mg/dL (74-106); MAGNESIUM 1.7 mg/dL (1.8-2.4); PHOSPHOROUS 2.8 mg/dL (2.5-4.9); POTASSIUM 4.4 mmol/L (3.5-5.1); SODIUM 137 mmol/L (136-145)
[2017-11-30] MEDS ORDERED: MAGNESIUM OXIDE 400 MG TABLET (FP) PO ONE (09:06)
[2017-11-30] MEDS ORDERED: amLODIPine BESYLATE 5 MG TABLET (FP) ONE (10:33)
[2017-11-30] MEDS ORDERED: CARVEDILOL 12.5 MG TABLET (FP) ONE (10:33)
[2017-11-30] MEDS ORDERED: DULoxetine HCL 30 MG CAPSULE.DR (FP) PO ONE (10:34)
[2017-11-30] MEDS ORDERED: hydrALAZINE HCL 25 MG TABLET (FP) ONE (10:34)
[2017-11-30] MEDS ORDERED: DOCUSATE SODIUM 100 MG CAPSULE (FP) PO ONE (10:34)
[2017-11-30] MEDS: hydrALAZINE HCL 25 MG TABLET (FP) PO SCH ×2 (10:36→22:09)
[2017-11-30] MEDS: predniSONE 5 MG TABLET (UD) PO SCH (10:36)
[2017-11-30] MEDS: amLODIPine BESYLATE 10 MG TABLET (FP) PO SCH (10:36)
[2017-11-30] MEDS: DULoxetine HCL 20 MG CAPSULE.DR (FP) PO SCH ×2 (10:36→22:09)
[2017-11-30] MEDS: DOCUSATE SODIUM 100 MG CAPSULE (FP) PO SCH (10:36)
[2017-11-30] MEDS: CARVEDILOL 25 MG TABLET (FP) PO SCH ×2 (10:36→22:09)
[2017-11-30] MEDS ORDERED: MAGNESIUM OXIDE 400 MG TABLET (FP) ONE (10:38)
[2017-11-30] MEDS: TACROLIMUS ANHYDROUS 1 MG CAPSULE PO SCH ×2 (10:39→22:30)
--- NOTE | 2017-11-30 12:44 | PN ---
Progress Note, Physician History of Present Illness: Pt seen and examined at bedside. He is awake and appears comfortable. - Current Medication List Current Medications: Active Medications Acetaminophen (Tylenol -) 650 mg PO Q4H PRN PRN Reason: FEVER OR PAIN Amlodipine Besylate (Norvasc -) 10 mg PO DAILY [facility] Last Admin: 11/30/17 10:36 Dose: 10 mg Aspirin (Asa -) 81 mg PO HS [facility] Last Admin: 11/29/17 22:10 Dose: 81 mg Atorvastatin Calcium (Lipitor -) 10 mg PO HS [facility] Last Admin: 11/29/17 22:10 Dose: 10 mg Carvedilol (Coreg -) 25 mg PO BID [facility] Last Admin: 11/30/17 10:36 Dose: 25 mg Docusate Sodium (Colace -) 100 mg PO DAILY [facility] Last Admin: 11/30/17 10:36 Dose: 100 mg Duloxetine HCl (Cymbalta -) 20 mg PO BID [facility] Last Admin: 11/30/17 10:36 Dose: 20 mg Heparin Sodium (Porcine) (Heparin -) 5,000 unit SQ TID [facility] Last Admin: 11/30/17 06:26 Dose: 5,000 unit Hydralazine HCl (Apresoline -) 25 mg PO BID [facility] Last Admin: 11/30/17 10:36 Dose: 25 mg Sodium Chloride (Normal Saline -) 1,000 mls @ 75 mls/hr IV ASDIR [facility] Last Admin: 11/30/17 00:41 Dose: 75 mls/hr Insulin Aspart (Novolog Vial Sliding Scale -) 1 vial SQ ACHS [facility] PRN Reason: Protocol Last Admin: 11/30/17 08:18 Dose: 2 unit Insulin Detemir (Levemir Vial) 5 units SQ HS [facility] Last Admin: 11/29/17 22:37 Dose: 5 units Insulin Detemir (Levemir Vial) 20 units SQ AM [facility] Last Admin: 11/30/17 08:17 Dose: 20 unit Mycophenolate Sodium (Mycophenolic Acid) 360 mg PO BID [facility] Last Admin: 11/29/17 22:10 Dose: 360 mg Prednisone (Deltasone -) 5 mg PO DAILY [facility] Last Admin: 11/30/17 10:36 Dose: 5 mg Senna (Senna -) 1 tab PO HS [facility] Last Admin: 11/29/17 22:10 Dose: 1 tab Tacrolimus (Prograf) 1 mg PO BID [facility] Last Admin: 11/30/17 10:39 Dose: 1 mg Tamsulosin HCl (Flomax -) 0.4 mg PO HS [facility] Last Admin: 11/29/17 22:10 Dose: 0.4 mg - Objective Vital Signs: Vital Signs Temperature 97.9 F 11/29/17 14:30 Pulse Rate 78 11/30/17 08:55 Respiratory Rate 17 11/30/17 08:55 Blood Pressure 151/56 11/30/17 08:55 O2 Sat by Pulse Oximetry (%) 95 11/30/17 08:55 Constitutional: Yes: Calm Eyes: Yes: Conjunctiva Clear HENT: Yes: Atraumatic Neck: Yes: Supple Cardiovascular: Yes: S1, S2 Respiratory: Yes: CTA Bilaterally Gastrointestinal: Yes: Soft Genitourinary: Yes: Other (transplant soft and non tender) Musculoskeletal: Yes: WNL Edema: No Neurological: Yes: Oriented Psychiatric: Yes: Oriented Labs: CBC, BMP 11/30/17 06:00 11/30/17 06:00 INR, PTT INR 0.98 (0.82-1.09) 11/29/17 07:30 Problem List - Problems (1) Dehydration Code(s): E86.0 - DEHYDRATION (2) DM2 (diabetes mellitus, type 2) Code(s): E11.9 - TYPE 2 DIABETES MELLITUS WITHOUT COMPLICATIONS (3) Hyperglycemia Code(s): R73.9 - HYPERGLYCEMIA, UNSPECIFIED (4) H/O kidney transplant Code(s): Z94.0 - KIDNEY TRANSPLANT STATUS Assessment/Plan Current Medications Generic Name Dose Route Start Last Admin Trade Name Garfield PRN Reason Stop Dose Admin Acetaminophen 650 mg 11/28/17 23:36 Tylenol - PO Q4H PRN FEVER OR PAIN Amlodipine Besylate 10 mg 11/29/17 10:00 11/30/17 10:36 Norvasc - PO 10 mg DAILY [facility] Administration Aspirin 81 mg 11/29/17 22:00 11/29/17 22:10 Asa - PO 81 mg HS [facility] Administration Atorvastatin Calcium 10 mg 11/29/17 22:00 11/29/17 22:10 Lipitor - PO 10 mg HS [facility] Administration Carvedilol 25 mg 11/29/17 10:00 11/30/17 10:36 Coreg - PO 25 mg BID [facility] Administration Docusate Sodium 100 mg 11/29/17 10:00 11/30/17 10:36 Colace - PO 100 mg DAILY [facility] Administration Duloxetine HCl 20 mg 11/29/17 10:00 11/30/17 10:36 Cymbalta - PO 20 mg BID [facility] Administration Heparin Sodium (Porcine) 5,000 unit 11/29/17 06:00 11/30/17 06:26 Heparin - SQ 5,000 unit TID [facility] Administration Hydralazine HCl 25 mg 11/29/17 10:00 11/30/17 10:36 Apresoline - PO 25 mg BID [facility] Administration Sodium Chloride 1,000 mls @ 75 mls/hr 11/28/17 23:45 11/30/17 00:41 Normal Saline - IV 75 mls/hr ASDIR [facility] Administration Insulin Aspart 1 vial 11/30/17 07:00 11/30/17 08:18 Novolog Vial Sliding Scale - SQ 2 unit ACHS [facility] Administration Protocol Insulin Detemir 5 units 11/29/17 22:00 11/29/17 22:37 Levemir Vial SQ 5 units HS [facility] Administration Insulin Detemir 20 units 11/30/17 07:00 11/30/17 08:17 Levemir Vial SQ 20 unit AM [facility] Administration Mycophenolate Sodium 360 mg 11/29/17 10:00 11/29/17 22:10 Mycophenolic Acid PO 360 mg BID [facility] Administration Prednisone 5 mg 11/29/17 10:00 11/30/17 10:36 Deltasone - PO 5 mg DAILY [facility] Administration Senna 1 tab 11/29/17 22:00 11/29/17 22:10 Senna - PO 1 tab HS [facility] Administration Tacrolimus 1 mg 11/29/17 22:00 11/30/17 10:39 Prograf PO 1 mg BID [facility] Administration Tamsulosin HCl 0.4 mg 11/29/17 22:00 11/29/17 22:10 Flomax - PO 0.4 mg HS [facility] Administration Impression 1. CKD 2. kidney transplant 3. DM 4. hx of syncope 5. HTN 6. hyperlipidemia 7. dehydration Plan - renal function is at baseline - pt for placement - cont current meds - will follow as outpt - monitor blood sugar
--- NOTE | 2017-11-30 12:54 | PN ---
Teaching Attending Note Name of Resident: Juhi Bernal ATTENDING PHYSICIAN STATEMENT I saw and evaluated the patient. I reviewed the resident's note and discussed the case with the resident. I agree with the resident's findings and plan as documented. SUBJECTIVE:no complaints, denies Cp, SOB, fever, chills, N/V/C/D OBJECTIVE: Last Vital Signs Temp Pulse Resp BP Pulse Ox 97.9 F 78 17 151/56 95 11/29/17 14:30 11/30/17 08:55 11/30/17 08:55 11/30/17 08:55 11/30/17 08:55 General NAD, A&O x3 CV S1 S2+ Lungs CTA anteriorly ASSESSMENT AND PLAN: 77yo M with PMH DM, HTN, CAD s/p stents/CABG, IVC filter, ESRD s/p renal transplant 2008 presented to the ER with hyperglycemia 1. Hyperglycemia-improved. insulin adjusted by endocrine. cont iss, levemir. d/ c metformin. endo on board 2. CHUCK- likely due to hyperglycemia induced dehydration. resolved. d/c ivf 3, Acute metabolic encephalopathy- likely due to hyperglycemia vs waxing/waning in elderly. now resolved. oriented to time/person/place. CT head negative for acute pathology. 4. Pseudohyponatremia 5. Lactic acidosis- due to metformin. hold on discharge 6. Leukocytosis- likely stress induced. no signs of infection. UA negative. no indication for abx 7. S/p renal transplant- cont tacrolimus/prednisone/mycophenolate 8. as per resident whom spoke to daughter last night requesting placement as been difficult managing at home and take medications accurately. SW notified. DANY sent out.
--- NOTE | 2017-11-30 14:56 | PN ---
Physical Exam: SUBJECTIVE: Patient seen and examined. AAOx2 to self and year. Pt denies chest pain, sob, abdominal pain, fever, chills. No events overnight. OBJECTIVE: Vital Signs Period Temp Pulse Resp BP Sys/Mendoza Pulse Ox Last 24 Hr 72-80 16-18 132-156/42-57 95-98 GENERAL: AAOx2, NAD. LUNGS: Breath sounds equal, clear to auscultation bilaterally, no wheezes, no crackles, no accessory muscle use. HEART: Regular rate and rhythm, S1, S2 without murmur, rub or gallop. ABDOMEN: Soft, nontender, nondistend, no guarding. EXTREMITIES: Warm, well-perfused, no edema. PSYCH: Normal mood, normal affect. SKIN: Warm, dry, normal turgor, no rashes or lesions noted Laboratory Results - last 24 hr 11/29/17 11/29/17 11/29/17 08:12 17:14 22:34 WBC RBC Hgb Hct MCV MCH MCHC RDW Plt Count MPV Sodium Potassium Chloride Carbon Dioxide Anion Gap BUN Creatinine POC Glucometer [phone] Random Glucose Lactic Acid Calcium Phosphorus Magnesium 11/30/17 11/30/17 11/30/17 06:00 06:00 06:00 WBC 10.7 H RBC 4.03 Hgb 11.6 L D Hct 36.5 MCV 90.6 MCH 28.8 MCHC 31.8 L RDW 15.1 Plt Count 124 L MPV 9.4 Sodium 137 Potassium 4.4 Chloride 106 Carbon Dioxide 23 Anion Gap 8 BUN 20 H D Creatinine 1.0 POC Glucometer Random Glucose 171 H Lactic Acid 0.7 Calcium 8.2 L Phosphorus 2.8 D Magnesium 1.7 L 11/30/17 08:10 WBC RBC Hgb Hct MCV MCH MCHC RDW Plt Count MPV Sodium Potassium Chloride Carbon Dioxide Anion Gap BUN Creatinine POC Glucometer [phone] Random Glucose Lactic Acid Calcium Phosphorus Magnesium Active Medications Generic Name Dose Route Start Last Admin Trade Name Freq PRN Reason Stop Dose Admin Acetaminophen 650 mg 11/28/17 23:36 Tylenol - PO Q4H PRN FEVER OR PAIN Amlodipine Besylate 10 mg 11/29/17 10:00 11/30/17 10:36 Norvasc - PO 10 mg DAILY [facility] Administration Aspirin 81 mg 11/29/17 22:00 11/29/17 22:10 Asa - PO 81 mg HS [facility] Administration Atorvastatin Calcium 10 mg 11/29/17 22:00 11/29/17 22:10 Lipitor - PO 10 mg HS [facility] Administration Carvedilol 25 mg 11/29/17 10:00 11/30/17 10:36 Coreg - PO 25 mg BID [facility] Administration Docusate Sodium 100 mg 11/29/17 10:00 11/30/17 10:36 Colace - PO 100 mg DAILY [facility] Administration Duloxetine HCl 20 mg 11/29/17 10:00 11/30/17 10:36 Cymbalta - PO 20 mg BID [facility] Administration Heparin Sodium (Porcine) 5,000 unit 11/29/17 06:00 11/30/17 06:26 Heparin - SQ 5,000 unit TID [facility] Administration Hydralazine HCl 25 mg 11/29/17 10:00 11/30/17 10:36 Apresoline - PO 25 mg BID [facility] Administration Insulin Aspart 1 vial 11/30/17 07:00 11/30/17 08:18 Novolog Vial Sliding Scale - SQ 2 unit ACHS [facility] Administration Protocol Insulin Detemir 5 units 11/29/17 22:00 11/29/17 22:37 Levemir Vial SQ 5 units HS [facility] Administration Insulin Detemir 20 units 11/30/17 07:00 11/30/17 08:17 Levemir Vial SQ 20 unit AM [facility] Administration Mycophenolate Sodium 360 mg 11/29/17 10:00 11/29/17 22:10 Mycophenolic Acid PO 360 mg BID [facility] Administration Prednisone 5 mg 11/29/17 10:00 11/30/17 10:36 Deltasone - PO 5 mg DAILY [facility] Administration Senna 1 tab 11/29/17 22:00 11/29/17 22:10 Senna - PO 1 tab HS [facility] Administration Tacrolimus 1 mg 11/29/17 22:00 11/30/17 10:39 Prograf PO 1 mg BID [facility] Administration Tamsulosin HCl 0.4 mg 11/29/17 22:00 11/29/17 22:10 Flomax - PO 0.4 mg HS [facility] Administration ASSESSMENT/PLAN: 77M with PMH of DM, htn, CAD s/p stents/CABG, DVTs s/p IVC filter, ESRD s/p renal transplant 2008, presents with hyperglycemia. # acute metabolic encephalopathy - likely 2/2 hyperglycemia vs waxing/waning in elderly vs underlying dementia - Head CT (-) for acute pathology - mental status stable # hyperlycemia / DM - plan discussed with PCP/Behavioral Health Care Manager (Dr. Villela), recs appreciated - Levemir 20U AM, 5U HS - Novolog SSI - BGMs # CHUCK - likely 2/2 hyperglycemia induced dehydration - pt at baseline renal function - Renal (Dr. Perez) recs appreciated: continue Prograf, Mycophenolic acid , and Prednisone # leukocytosis - likely stress induced - no s/s of infection - blood cultures (-) x 24 hrs - UA (-) for UTI # htn - continue home meds of Norvasc, Hydralazine, and Coreg # hld - continue home med of Lipitor # hypomagnesemia - repleted with Mag Ox 400mg # FEN - Fluids: po - Electrolytes: continue to monitor - Nutrition: diabetic diet # Prophylaxis - DVT ppx with Heparin TID - deconditioning ppx with PT # Dispo - SNF placement pending Visit type - Emergency Visit Emergency Visit: Yes ED Registration Date: 11/28/17 Care time: The patient presented to the Emergency Department on the above date and was hospitalized for further evaluation of their emergent condition. - New Patient This patient is new to me today: No - Critical Care Critical Care patient: No
[2017-11-30] MEDS: MYCOPHENOLATE SODIUM 360 MG TABLET.DR PO SCH ×2 (15:26→23:16)
[2017-11-30] MEDS ORDERED: ACETAMINOPHEN 325 MG TABLET (FP) ONE (19:23)
[2017-11-30] MEDS: ASPIRIN 81 MG CHEWABLE TABLETS PO SCH (22:09)
[2017-11-30] MEDS: ATORVASTATIN CA 10 MG TABLET (FP) PO SCH (22:09)
[2017-11-30] MEDS: TAMSULOSIN HCL 0.4 MG CAP.ER.24H (FP) PO SCH (22:09)
[2017-11-30] MEDS: SENNOSIDES 8.6MG TABLET (FP) PO SCH (22:09)
[2017-12-01] MEDS: ACETAMINOPHEN 325 MG TABLET (FP) PO PRN ×3 (01:35→20:41)
[2017-12-01] MEDS: HEPARIN NA (PORCINE) 5,000 UNITS/ML 1ML VIAL SQ SCH ×3 (05:50→21:36)
[2017-12-01] MEDS ORDERED: PT OWN MED DRAWER 7, Y5N ONE (05:53)
[2017-12-01] MEDS: INSULIN DETEMIR 100 UNITS/ML MDV SQ SCH ×2 (06:20→21:44)
[2017-12-01] MEDS: INSULIN SLIDING SCALE (NOVOLOG) 1 VIAL SQ SCH ×4 (06:20→21:46)
[2017-12-01 08:39] LABS: HEMATOCRIT 35.2 % (35.4-49); HEMOGLOBIN 11.3 GM/dL (11.7-16.9); MCH 28.9 pg (25.7-33.7); MEAN CELL VOLUME 90.3 fl (80-96); MEAN PLT VOLUME 9.3 fl (7.5-11.1); PLATELET COUNT 121 K/MM3 (134-434); RDW 14.9 % (11.9-15.9); WHITE BLOOD COUNT 16.5 K/mm3 (4.0-10.0)
[2017-12-01 08:47] LABS: CHLORIDE 107 mmol/L (98-107); SODIUM 139 mmol/L (136-145)
[2017-12-01 09:04] LABS: ANION GAP 10 (8-16); BLOOD UREA NITROGEN 24 mg/dL (7-18); CALCIUM 8.2 mg/dL (8.5-10.1); CO2 22 mmol/L (21-32); CREATININE 1.2 mg/dL (0.7-1.3); GLUCOSE,RANDOM 83 mg/dL (74-106); MAGNESIUM 1.8 mg/dL (1.8-2.4); PHOSPHOROUS 2.6 mg/dL (2.5-4.9)
[2017-12-01] MEDS: DOCUSATE SODIUM 100 MG CAPSULE (FP) PO SCH (09:30)
[2017-12-01] MEDS: hydrALAZINE HCL 25 MG TABLET (FP) PO SCH ×2 (09:30→21:35)
[2017-12-01] MEDS: DULoxetine HCL 20 MG CAPSULE.DR (FP) PO SCH ×2 (09:31→21:35)
[2017-12-01] MEDS: predniSONE 5 MG TABLET (UD) PO SCH (09:31)
[2017-12-01] MEDS: MYCOPHENOLATE SODIUM 360 MG TABLET.DR PO SCH ×2 (09:31→21:36)
[2017-12-01] MEDS: CARVEDILOL 25 MG TABLET (FP) PO SCH ×2 (09:31→21:35)
[2017-12-01] MEDS: TACROLIMUS ANHYDROUS 1 MG CAPSULE PO SCH ×2 (09:31→21:36)
[2017-12-01] MEDS: amLODIPine BESYLATE 10 MG TABLET (FP) PO SCH (09:31)
--- NOTE | 2017-12-01 14:45 | PN ---
Progress Note, Physician History of Present Illness: Pt seen and examined at bedside. He is awake and appears comfortable. Mental status waxes and wanes. - Current Medication List Current Medications: Active Medications Acetaminophen (Tylenol -) 650 mg PO Q4H PRN PRN Reason: FEVER OR PAIN Last Admin: 12/01/17 06:15 Dose: 650 mg Amlodipine Besylate (Norvasc -) 10 mg PO DAILY [facility] Last Admin: 12/01/17 09:31 Dose: 10 mg Aspirin (Asa -) 81 mg PO HS [facility] Last Admin: 11/30/17 22:09 Dose: 81 mg Atorvastatin Calcium (Lipitor -) 10 mg PO HS [facility] Last Admin: 11/30/17 22:09 Dose: 10 mg Carvedilol (Coreg -) 25 mg PO BID [facility] Last Admin: 12/01/17 09:31 Dose: 25 mg Docusate Sodium (Colace -) 100 mg PO DAILY [facility] Last Admin: 12/01/17 09:30 Dose: 100 mg Duloxetine HCl (Cymbalta -) 20 mg PO BID [facility] Last Admin: 12/01/17 09:31 Dose: 20 mg Heparin Sodium (Porcine) (Heparin -) 5,000 unit SQ TID [facility] Last Admin: 12/01/17 05:50 Dose: 5,000 unit Hydralazine HCl (Apresoline -) 25 mg PO BID [facility] Last Admin: 12/01/17 09:30 Dose: 25 mg Insulin Aspart (Novolog Vial Sliding Scale -) 1 vial SQ ACHS [facility] PRN Reason: Protocol Last Admin: 12/01/17 06:20 Dose: Not Given Insulin Detemir (Levemir Vial) 5 units SQ HS [facility] Last Admin: 11/30/17 22:15 Dose: 5 units Insulin Detemir (Levemir Vial) 20 units SQ AM [facility] Last Admin: 12/01/17 06:20 Dose: Not Given Mycophenolate Sodium (Mycophenolic Acid) 360 mg PO BID [facility] Last Admin: 12/01/17 09:31 Dose: 360 mg Prednisone (Deltasone -) 5 mg PO DAILY [facility] Last Admin: 12/01/17 09:31 Dose: 5 mg Senna (Senna -) 1 tab PO HS [facility] Last Admin: 11/30/17 22:09 Dose: 1 tab Tacrolimus (Prograf) 1 mg PO BID [facility] Last Admin: 12/01/17 09:31 Dose: 1 mg Tamsulosin HCl (Flomax -) 0.4 mg PO HS [facility] Last Admin: 11/30/17 22:09 Dose: 0.4 mg - Objective Vital Signs: Vital Signs Temperature 100.6 F H 12/01/17 05:43 Pulse Rate 58 L 12/01/17 09:00 Respiratory Rate 20 12/01/17 09:00 Blood Pressure 109/65 12/01/17 09:00 O2 Sat by Pulse Oximetry (%) 95 12/01/17 09:00 Constitutional: Yes: Calm Eyes: Yes: Conjunctiva Clear HENT: Yes: Atraumatic Cardiovascular: Yes: S1, S2 Respiratory: Yes: CTA Bilaterally Gastrointestinal: Yes: Soft Genitourinary: Yes: Other (graft soft and non tender) Musculoskeletal: Yes: WNL Edema: No Neurological: Yes: Oriented Psychiatric: Yes: Oriented Labs: CBC, BMP 12/01/17 07:00 12/01/17 07:00 INR, PTT INR 0.98 (0.82-1.09) 11/29/17 07:30 Problem List - Problems (1) Dehydration Code(s): E86.0 - DEHYDRATION (2) DM2 (diabetes mellitus, type 2) Code(s): E11.9 - TYPE 2 DIABETES MELLITUS WITHOUT COMPLICATIONS (3) Hyperglycemia Code(s): R73.9 - HYPERGLYCEMIA, UNSPECIFIED (4) H/O kidney transplant Code(s): Z94.0 - KIDNEY TRANSPLANT STATUS Assessment/Plan Current Medications Generic Name Dose Route Start Last Admin Trade Name Freq PRN Reason Stop Dose Admin Acetaminophen 650 mg 11/28/17 23:36 12/01/17 06:15 Tylenol - PO 650 mg Q4H PRN Administration FEVER OR PAIN Amlodipine Besylate 10 mg 11/29/17 10:00 12/01/17 09:31 Norvasc - PO 10 mg DAILY [facility] Administration Aspirin 81 mg 11/29/17 22:00 11/30/17 22:09 Asa - PO 81 mg HS [facility] Administration Atorvastatin Calcium 10 mg 11/29/17 22:00 11/30/17 22:09 Lipitor - PO 10 mg HS [facility] Administration Carvedilol 25 mg 11/29/17 10:00 12/01/17 09:31 Coreg - PO 25 mg BID [facility] Administration Docusate Sodium 100 mg 11/29/17 10:00 12/01/17 09:30 Colace - PO 100 mg DAILY [facility] Administration Duloxetine HCl 20 mg 11/29/17 10:00 12/01/17 09:31 Cymbalta - PO 20 mg BID [facility] Administration Heparin Sodium (Porcine) 5,000 unit 11/29/17 06:00 12/01/17 05:50 Heparin - SQ 5,000 unit TID [facility] Administration Hydralazine HCl 25 mg 11/29/17 10:00 12/01/17 09:30 Apresoline - PO 25 mg BID [facility] Administration Insulin Aspart 1 vial 11/30/17 07:00 12/01/17 06:20 Novolog Vial Sliding Scale - SQ Not Given ACHS [facility] Protocol Insulin Detemir 5 units 11/29/17 22:00 11/30/17 22:15 Levemir Vial SQ 5 units HS [facility] Administration Insulin Detemir 20 units 11/30/17 07:00 12/01/17 06:20 Levemir Vial SQ Not Given AM [facility] Mycophenolate Sodium 360 mg 11/29/17 10:00 12/01/17 09:31 Mycophenolic Acid PO 360 mg BID [facility] Administration Prednisone 5 mg 11/29/17 10:00 12/01/17 09:31 Deltasone - PO 5 mg DAILY [facility] Administration Senna 1 tab 11/29/17 22:00 11/30/17 22:09 Senna - PO 1 tab HS [facility] Administration Tacrolimus 1 mg 11/29/17 22:00 12/01/17 09:31 Prograf PO 1 mg BID [facility] Administration Tamsulosin HCl 0.4 mg 11/29/17 22:00 11/30/17 22:09 Flomax - PO 0.4 mg HS [facility] Administration Impression 1. CKD 2. kidney transplant 3. DM 4. hx of syncope 5. HTN 6. hyperlipidemia 7. dehydration Plan - cont current meds - will need outpt follow up - pt for placement - cont current meds - monitor blood sugar
--- NOTE | 2017-12-01 16:05 | PN ---
Teaching Attending Note Name of Resident: Juhi Bernal ATTENDING PHYSICIAN STATEMENT I saw and evaluated the patient. I reviewed the resident's note and discussed the case with the resident. I agree with the resident's findings and plan as documented. SUBJECTIVE:asymptomatic. denies Cp, SOB, fever, chills, N/v/C/D, dysuria, cough OBJECTIVE: Last Vital Signs Temp Pulse Resp BP Pulse Ox 100.6 F H 58 L 20 109/65 95 12/01/17 05:43 12/01/17 09:00 12/01/17 09:00 12/01/17 09:00 12/01/17 09:00 General NAD A&O x3 CV S1 S2 RRR Lungs CTA B/L no wheezing/rales/rhonchi Abdomen soft NT/ND Extremities no pedal edema, +palpable thrill RUE ASSESSMENT AND PLAN: 77yo M with PMH DM, HTN, CAD s/p stents/CABG, IVC filter, ESRD s/p renal transplant 2008 presented to the ER with hyperglycemia 1. Hyperglycemia-hypoglycemia this AM. morning dose of levemir held. pt was asymptomatic during episode. now improved. will hold morning dose at this time. cont levemir 5 units HS. likely due to compliant diet here in the hospital. improved. Endo on board 2. Fever- Tm100.9 with assoc leukocytosis. CXR negative. awaiting UA. BCx from admission now showing GPC in 1 bottle. will give vanco x1 and repeat Bcx. likely contaminate. if not will consider ID eval as pt is renal transplant. 3. CHUCK- likely due to hyperglycemia induced dehydration. resolved. 4, Acute metabolic encephalopathy- likely due to hyperglycemia vs waxing/waning in elderly. now resolved. oriented to time/person/place. CT head negative for acute pathology. 5. Pseudohyponatremia 6. Lactic acidosis- due to metformin. hold on discharge 7. S/p renal transplant- cont tacrolimus/prednisone/mycophenolate 8. accepted at [facility] for SNF
[2017-12-01] MEDS ORDERED: VANCOMYCIN 1,000 MG in DEXTROSE 5%-WATER - 250 ML IVPB ONE (16:15)
--- NOTE | 2017-12-01 17:08 | PN ---
Physical Exam: SUBJECTIVE: Patient seen and examined. Pt denies chest pain, sob, abdominal pain, fever, chills. Pt is asymptomatic. OBJECTIVE: Vital Signs Period Temp Pulse Resp BP Sys/Mendoza Pulse Ox Last 24 Hr 99.4 F-100.9 F 58-93 20-22 109-180/45-73 95-95 GENERAL: AAOx2, NAD. LUNGS: Breath sounds equal, clear to auscultation bilaterally, no wheezes, no crackles, no accessory muscle use. HEART: Regular rate and rhythm, S1, S2 without murmur, rub or gallop. ABDOMEN: Soft, nontender, nondistend, no guarding. EXTREMITIES: Warm, well-perfused, no edema. PSYCH: Normal mood, normal affect. Laboratory Results - last 24 hr 11/30/17 11/30/17 11/30/17 16:33 19:21 22:15 WBC RBC Hgb Hct MCV MCH MCHC RDW Plt Count MPV Sodium Potassium Chloride Carbon Dioxide Anion Gap BUN Creatinine POC Glucometer 77 130 127 Random Glucose Calcium Phosphorus Magnesium 12/01/17 12/01/17 12/01/17 05:25 07:00 07:00 WBC 16.5 H D RBC 3.90 L Hgb 11.3 L Hct 35.2 L MCV 90.3 MCH 28.9 MCHC 32.0 RDW 14.9 Plt Count 121 L MPV 9.3 Sodium 139 Potassium 4.0 Chloride 107 Carbon Dioxide 22 Anion Gap 10 BUN 24 H Creatinine 1.2 POC Glucometer 77 Random Glucose 83 D Calcium 8.2 L Phosphorus 2.6 Magnesium 1.8 12/01/17 11:25 WBC RBC Hgb Hct MCV MCH MCHC RDW Plt Count MPV Sodium Potassium Chloride Carbon Dioxide Anion Gap BUN Creatinine POC Glucometer 193 Random Glucose Calcium Phosphorus Magnesium Active Medications Generic Name Dose Route Start Last Admin Trade Name Freq PRN Reason Stop Dose Admin Acetaminophen 650 mg 11/28/17 23:36 12/01/17 06:15 Tylenol - PO 650 mg Q4H PRN Administration FEVER OR PAIN Amlodipine Besylate 10 mg 11/29/17 10:00 12/01/17 09:31 Norvasc - PO 10 mg DAILY [facility] Administration Aspirin 81 mg 11/29/17 22:00 11/30/17 22:09 Asa - PO 81 mg HS [facility] Administration Atorvastatin Calcium 10 mg 11/29/17 22:00 11/30/17 22:09 Lipitor - PO 10 mg HS [facility] Administration Carvedilol 25 mg 11/29/17 10:00 12/01/17 09:31 Coreg - PO 25 mg BID [facility] Administration Docusate Sodium 100 mg 11/29/17 10:00 12/01/17 09:30 Colace - PO 100 mg DAILY [facility] Administration Duloxetine HCl 20 mg 11/29/17 10:00 12/01/17 09:31 Cymbalta - PO 20 mg BID [facility] Administration Heparin Sodium (Porcine) 5,000 unit 11/29/17 06:00 12/01/17 05:50 Heparin - SQ 5,000 unit TID [facility] Administration Hydralazine HCl 25 mg 11/29/17 10:00 12/01/17 09:30 Apresoline - PO 25 mg BID [facility] Administration Vancomycin HCl 1,000 mg/ 250 mls @ 166.667 mls/hr 12/01/17 16:15 Dextrose IVPB 12/01/17 17:44 ONCE ONE Protocol Insulin Aspart 1 vial 11/30/17 07:00 12/01/17 06:20 Novolog Vial Sliding Scale - SQ Not Given ACHS [facility] Protocol Insulin Detemir 5 units 11/29/17 22:00 11/30/17 22:15 Levemir Vial SQ 5 units HS [facility] Administration Mycophenolate Sodium 360 mg 11/29/17 10:00 12/01/17 09:31 Mycophenolic Acid PO 360 mg BID [facility] Administration Prednisone 5 mg 11/29/17 10:00 12/01/17 09:31 Deltasone - PO 5 mg DAILY [facility] Administration Senna 1 tab 11/29/17 22:00 11/30/17 22:09 Senna - PO 1 tab HS [facility] Administration Tacrolimus 1 mg 11/29/17 22:00 12/01/17 09:31 Prograf PO 1 mg BID [facility] Administration Tamsulosin HCl 0.4 mg 11/29/17 22:00 11/30/17 22:09 Flomax - PO 0.4 mg HS [facility] Administration IMAGIN12/01/17 CXR -> no CHF, PTX, or large pleural effusion. Left mid lung zone atelectasis. ASSESSMENT/PLAN: 77M with PMH of DM, htn, CAD s/p stents/CABG, DVTs s/p IVC filter, ESRD s/p renal transplant 2008, presents with hyperglycemia. # fever - fever: Tmax 100.9 at 2am - increased leukocytosis noted - CXR (-) - f/u UA - 1 tube of 11/28/17 (+) for gram + cocci in clusters -> f/u repeat blood cultures (likely contaminate) - if repeat (+) -> ID Consult 2/2 pt has a kidney transplant - Vancomycin given # hyperlycemia / DM - pt with blood glucose low for him (77) -> AM Levemir held. Likely 2/2 compliance with diabetic diet while here in hospital. - continue Levemir - Novolog SSI - BGMs # CHUCK - likely 2/2 hyperglycemia induced dehydration - pt at baseline renal function, resolved - Renal (Dr. Perez) recs appreciated: continue Prograf, Mycophenolic acid , and Prednisone # leukocytosis - likely stress induced - no s/s of infection - blood cultures (-) x 24 hrs - UA (-) for UTI # htn - continue home meds of Norvasc, Hydralazine, and Coreg # hld - continue home med of Lipitor # FEN - Fluids: po - Electrolytes: wnl, continue to monitor - Nutrition: diabetic diet # Prophylaxis - DVT ppx with Heparin TID - deconditioning ppx with PT # Dispo - accepted to [facility] Visit type - Emergency Visit Emergency Visit: Yes ED Registration Date: 11/30/17 Care time: The patient presented to the Emergency Department on the above date and was hospitalized for further evaluation of their emergent condition. - New Patient This patient is new to me today: No - Critical Care Critical Care patient: No
[2017-12-01] MEDS: SENNOSIDES 8.6MG TABLET (FP) PO SCH (21:35)
[2017-12-01] MEDS: ASPIRIN 81 MG CHEWABLE TABLETS PO SCH (21:35)
[2017-12-01] MEDS: ATORVASTATIN CA 10 MG TABLET (FP) PO SCH (21:35)
[2017-12-01] MEDS: TAMSULOSIN HCL 0.4 MG CAP.ER.24H (FP) PO SCH (21:35)
[2017-12-01] MEDS ORDERED: INSULIN (NOVOLOG) ASPART 100 UNITS/ML 10ML VIAL ONE (21:46)
[2017-12-01] MEDS: ALBUTEROL SO4 2.5/IPRATROPIUM 0.5 INH SOL 3 ML VIAL.NEB. NEB PRN (23:38)
[2017-12-02] MEDS: ACETAMINOPHEN 325 MG TABLET (FP) PO PRN ×3 (01:41→23:00)
[2017-12-02] MEDS: HEPARIN NA (PORCINE) 5,000 UNITS/ML 1ML VIAL SQ SCH ×3 (05:41→22:44)
[2017-12-02 06:01] LABS: URINE APPEARANCE CLOUDY; URINE BILIRUBIN NEGATIVE (NEGATIVE); URINE BLOOD 2+ (NEGATIVE); URINE COLOR AMBER; URINE GLUCOSE (UA) NEGATIVE (NEGATIVE); URINE KETONE TRACE (NEGATIVE); URINE NITRITE NEGATIVE (NEGATIVE); URINE UROBILINOGEN NEGATIVE mg/dL (0.2-1.0)
[2017-12-02] MEDS: INSULIN SLIDING SCALE (NOVOLOG) 1 VIAL SQ SCH ×4 (06:05→23:06)
[2017-12-02 06:13] LABS: URINE LEUK ESTERASE 3+ (NEGATIVE); URINE PROTEIN 3+ (NEGATIVE)
[2017-12-02 06:20] LABS: URINE BACTERIA MODERATE /hpf (NONE SEEN); URINE MUCUS RARE
[2017-12-02] MEDS ORDERED: PT OWN MED DRAWER 7, Y5N ONE ×2 (06:28→22:38)
[2017-12-02 07:16] LABS: BASO % 0.9 % (0-2.0); EOS % 0.1 % (0-4.5); HEMOGLOBIN 11.5 GM/dL (11.7-16.9); LYMPH % 10.7 % (8-40); MCH 28.7 pg (25.7-33.7); MEAN CELL VOLUME 89.8 fl (80-96); MEAN PLT VOLUME 8.9 fl (7.5-11.1); MONO % 9.1 % (3.8-10.2); NEUT % 79.2 % (42.8-82.8); PLATELET COUNT 123 K/MM3 (134-434); RBC 4.01 M/mm3 (4.00-5.60); WHITE BLOOD COUNT 13.7 K/mm3 (4.0-10.0)
[2017-12-02 07:55] LABS: ANION GAP 11 (8-16); BLOOD UREA NITROGEN 35 mg/dL (7-18); CALCIUM 8.3 mg/dL (8.5-10.1); CHLORIDE 106 mmol/L (98-107); CO2 23 mmol/L (21-32); CREATININE 1.9 mg/dL (0.7-1.3); GLUCOSE,RANDOM 131 mg/dL (74-106); POTASSIUM 4.4 mmol/L (3.5-5.1); SODIUM 140 mmol/L (136-145)
[2017-12-02] MEDS: DOCUSATE SODIUM 100 MG CAPSULE (FP) PO SCH (10:44)
[2017-12-02] MEDS: MYCOPHENOLATE SODIUM 360 MG TABLET.DR PO SCH (10:44)
[2017-12-02] MEDS: hydrALAZINE HCL 25 MG TABLET (FP) PO SCH ×2 (10:44→22:44)
[2017-12-02] MEDS: DULoxetine HCL 20 MG CAPSULE.DR (FP) PO SCH ×2 (10:44→22:44)
[2017-12-02] MEDS: amLODIPine BESYLATE 10 MG TABLET (FP) PO SCH (10:44)
[2017-12-02] MEDS: predniSONE 5 MG TABLET (UD) PO SCH (10:44)
[2017-12-02] MEDS: CARVEDILOL 25 MG TABLET (FP) PO SCH ×2 (10:44→22:44)
[2017-12-02] MEDS: TACROLIMUS ANHYDROUS 1 MG CAPSULE PO SCH (10:45)
[2017-12-02] MEDS ORDERED: CEFTRIAXONE 1 G/50 ML PREMIX 50 ML IVPB ONE (11:00)
[2017-12-02] MEDS ORDERED: INSULIN (NOVOLOG) ASPART 100 UNITS/ML 10ML VIAL ONE (13:26)
--- NOTE | 2017-12-02 15:49 | PN ---
Progress Note, Physician History of Present Illness: Pt seen and examined at bedside. He is awake. He complains of cough. He has poor appetite today. - Current Medication List Current Medications: Active Medications Acetaminophen (Tylenol -) 650 mg PO Q4H PRN PRN Reason: FEVER OR PAIN Last Admin: 12/02/17 15:32 Dose: 650 mg Albuterol/Ipratropium (Duoneb -) 1 amp NEB Q4H PRN PRN Reason: SHORTNESS OF BREATH Last Admin: 12/01/17 23:38 Dose: 1 amp Amlodipine Besylate (Norvasc -) 10 mg PO DAILY [facility] Last Admin: 12/02/17 10:44 Dose: 10 mg Aspirin (Asa -) 81 mg PO HS [facility] Last Admin: 12/01/17 21:35 Dose: 81 mg Atorvastatin Calcium (Lipitor -) 10 mg PO HS [facility] Last Admin: 12/01/17 21:35 Dose: 10 mg Carvedilol (Coreg -) 25 mg PO BID [facility] Last Admin: 12/02/17 10:44 Dose: 25 mg Docusate Sodium (Colace -) 100 mg PO DAILY [facility] Last Admin: 12/02/17 10:44 Dose: 100 mg Duloxetine HCl (Cymbalta -) 20 mg PO BID [facility] Last Admin: 12/02/17 10:44 Dose: 20 mg Heparin Sodium (Porcine) (Heparin -) 5,000 unit SQ TID [facility] Last Admin: 12/02/17 13:43 Dose: 5,000 unit Hydralazine HCl (Apresoline -) 25 mg PO BID [facility] Last Admin: 12/02/17 10:44 Dose: 25 mg Insulin Aspart (Novolog Vial Sliding Scale -) 1 vial SQ ACHS [facility] PRN Reason: Protocol Last Admin: 12/02/17 13:43 Dose: 4 unit Insulin Detemir (Levemir Vial) 5 units SQ HS [facility] Last Admin: 12/01/17 21:44 Dose: 5 units Mycophenolate Sodium (Mycophenolic Acid) 360 mg PO BID [facility] Last Admin: 12/02/17 10:44 Dose: 360 mg Prednisone (Deltasone -) 5 mg PO DAILY [facility] Last Admin: 12/02/17 10:44 Dose: 5 mg Senna (Senna -) 1 tab PO HS [facility] Last Admin: 12/01/17 21:35 Dose: 1 tab Tacrolimus (Prograf) 1 mg PO BID [facility] Last Admin: 12/02/17 10:45 Dose: 1 mg Tamsulosin HCl (Flomax -) 0.4 mg PO HS [facility] Last Admin: 12/01/17 21:35 Dose: 0.4 mg - Objective Vital Signs: Vital Signs Temperature 99.6 F 12/02/17 09:00 Pulse Rate 88 12/02/17 09:00 Respiratory Rate 22 12/02/17 09:00 Blood Pressure 120/68 12/02/17 09:00 O2 Sat by Pulse Oximetry (%) 96 12/02/17 09:00 Constitutional: Yes: Calm Eyes: Yes: Conjunctiva Clear HENT: Yes: Atraumatic Neck: Yes: Supple Cardiovascular: Yes: S1, S2 Respiratory: Yes: On Nasal O2 Gastrointestinal: Yes: Soft Genitourinary: Yes: WNL, Other (graft soft and non tender) Musculoskeletal: Yes: Muscle Weakness Edema: No Neurological: Yes: Confusion Labs: CBC, BMP 12/02/17 07:00 12/02/17 07:00 INR, PTT INR 0.98 (0.82-1.09) 11/29/17 07:30 Problem List - Problems (1) Dehydration Code(s): E86.0 - DEHYDRATION (2) DM2 (diabetes mellitus, type 2) Code(s): E11.9 - TYPE 2 DIABETES MELLITUS WITHOUT COMPLICATIONS (3) Hyperglycemia Code(s): R73.9 - HYPERGLYCEMIA, UNSPECIFIED (4) H/O kidney transplant Code(s): Z94.0 - KIDNEY TRANSPLANT STATUS Assessment/Plan Current Medications Generic Name Dose Route Start Last Admin Trade Name [place] PRN Reason Stop Dose Admin Acetaminophen 650 mg 11/28/17 23:36 12/02/17 15:32 Tylenol - PO 650 mg Q4H PRN Administration FEVER OR PAIN Albuterol/Ipratropium 1 amp 12/01/17 22:52 12/01/17 23:38 Duoneb - NEB 1 amp Q4H PRN Administration SHORTNESS OF BREATH Amlodipine Besylate 10 mg 11/29/17 10:00 12/02/17 10:44 Norvasc - PO 10 mg DAILY [facility] Administration Aspirin 81 mg 11/29/17 22:00 12/01/17 21:35 Asa - PO 81 mg HS [facility] Administration Atorvastatin Calcium 10 mg 11/29/17 22:00 12/01/17 21:35 Lipitor - PO 10 mg HS [facility] Administration Carvedilol 25 mg 11/29/17 10:00 12/02/17 10:44 Coreg - PO 25 mg BID [facility] Administration Docusate Sodium 100 mg 11/29/17 10:00 12/02/17 10:44 Colace - PO 100 mg DAILY [facility] Administration Duloxetine HCl 20 mg 11/29/17 10:00 12/02/17 10:44 Cymbalta - PO 20 mg BID [facility] Administration Heparin Sodium (Porcine) 5,000 unit 11/29/17 06:00 12/02/17 13:43 Heparin - SQ 5,000 unit TID [facility] Administration Hydralazine HCl 25 mg 11/29/17 10:00 12/02/17 10:44 Apresoline - PO 25 mg BID [facility] Administration Insulin Aspart 1 vial 11/30/17 07:00 12/02/17 13:43 Novolog Vial Sliding Scale - SQ 4 unit ACHS [facility] Administration Protocol Insulin Detemir 5 units 11/29/17 22:00 12/01/17 21:44 Levemir Vial SQ 5 units HS [facility] Administration Mycophenolate Sodium 360 mg 11/29/17 10:00 12/02/17 10:44 Mycophenolic Acid PO 360 mg BID [facility] Administration Prednisone 5 mg 11/29/17 10:00 12/02/17 10:44 Deltasone - PO 5 mg DAILY [facility] Administration Senna 1 tab 11/29/17 22:00 12/01/17 21:35 Senna - PO 1 tab HS [facility] Administration Tacrolimus 1 mg 11/29/17 22:00 12/02/17 10:45 Prograf PO 1 mg BID [facility] Administration Tamsulosin HCl 0.4 mg 11/29/17 22:00 12/01/17 21:35 Flomax - PO 0.4 mg HS [facility] Administration Impression 1. CKD 2. kidney transplant 3. DM 4. hx of syncope 5. HTN 6. hyperlipidemia 7. dehydration 8. bacteremia Plan - renal function is worse today - will star fluids - no failure on cxr - check ultrasound graft - send ua, lytes and collision center manager - check prograf level - ID evaluation - monitor blood sugar
--- NOTE | 2017-12-02 16:20 | PN ---
Progress Note (short form) - Note Progress Note: ID Consult dictated Gram Negative Bacteremia / sepsis UTI/Possible sepsis secondary to UTI ? Asp pneumonia S/P renal transplant Azotemia Pending cultures, empiric coverage with cefepime, adjusted for renal insufficiency
--- NOTE | 2017-12-02 16:48 | PN ---
Physical Exam: SUBJECTIVE: Patient seen and examined. Pt c/o cough, on nasal cannula. Tmax 104.2 rectal at 9pm last evening. Pt denies chest pain, sob, abdominal pain. OBJECTIVE: Vital Signs Period Temp Pulse Resp BP Sys/Mendoza Pulse Ox Last 24 Hr 98.9 F-104.2 F 82-101 22-28 104-155/55-99 95-96 GENERAL: Pt looks pale/ill today, NAD. AAOx2 LUNGS: Breath sounds equal, clear to auscultation bilaterally, no wheezes, no crackles, no accessory muscle use. HEART: Regular rate and rhythm, +S1/S2. ABDOMEN: Soft, nontender, nondistend, no guarding. EXTREMITIES: Warm, well-perfused, no edema. PSYCH: Normal mood, normal affect. SKIN: bruise to Right hip noted, pt denies pain to palpation, no crepitus or deformity appreciated Laboratory Results - last 24 hr 12/01/17 12/01/17 12/02/17 17:06 21:43 04:48 WBC RBC Hgb Hct MCV MCH MCHC RDW Plt Count MPV Neutrophils % Lymphocytes % Monocytes % Eosinophils % Basophils % Sodium Potassium Chloride Carbon Dioxide Anion Gap BUN Creatinine POC Glucometer 307 219 Random Glucose Calcium Urine Color Naheed Urine Appearance Cloudy Urine pH 8.0 D Ur Specific [place] 1.014 Urine Protein 3+ H Urine Glucose (UA) Negative Urine Ketones Trace H Urine Blood 2+ H Urine Nitrite Negative Urine Bilirubin Negative Urine Urobilinogen Negative Ur Leukocyte Esterase 3+ H Urine WBC (Auto) 815 Urine RBC (Auto) 428 Urine Bacteria Moderate Urine Mucus Rare 12/02/17 12/02/17 12/02/17 07:00 07:00 11:33 WBC 13.7 H RBC 4.01 Hgb 11.5 L Hct 36.0 MCV 89.8 MCH 28.7 MCHC 32.0 RDW 15.0 Plt Count 123 L MPV 8.9 Neutrophils % 79.2 Lymphocytes % 10.7 D Monocytes % 9.1 Eosinophils % 0.1 D Basophils % 0.9 Sodium 140 Potassium 4.4 Chloride 106 Carbon Dioxide 23 Anion Gap 11 BUN 35 H D Creatinine 1.9 H D POC Glucometer 201 Random Glucose 131 H D Calcium 8.3 L Urine Color Urine Appearance Urine pH Ur Specific [place] Urine Protein Urine Glucose (UA) Urine Ketones Urine Blood Urine Nitrite Urine Bilirubin Urine Urobilinogen Ur Leukocyte Esterase Urine WBC (Auto) Urine RBC (Auto) Urine Bacteria Urine Mucus Active Medications Generic Name Dose Route Start Last Admin Trade Name Garfield PRN Reason Stop Dose Admin Acetaminophen 650 mg 11/28/17 23:36 12/02/17 15:32 Tylenol - PO 650 mg Q4H PRN Administration FEVER OR PAIN Albuterol/Ipratropium 1 amp 12/01/17 22:52 12/01/17 23:38 Duoneb - NEB 1 amp Q4H PRN Administration SHORTNESS OF BREATH Amlodipine Besylate 10 mg 11/29/17 10:00 12/02/17 10:44 Norvasc - PO 10 mg DAILY HUGO Administration Aspirin 81 mg 11/29/17 22:00 12/01/17 21:35 Asa - PO 81 mg HS HUGO Administration Atorvastatin Calcium 10 mg 11/29/17 22:00 12/01/17 21:35 Lipitor - PO 10 mg HS HUGO Administration Carvedilol 25 mg 11/29/17 10:00 12/02/17 10:44 Coreg - PO 25 mg BID HUGO Administration Docusate Sodium 100 mg 11/29/17 10:00 12/02/17 10:44 Colace - PO 100 mg DAILY HUGO Administration Duloxetine HCl 20 mg 11/29/17 10:00 12/02/17 10:44 Cymbalta - PO 20 mg BID HUGO Administration Heparin Sodium (Porcine) 5,000 unit 11/29/17 06:00 12/02/17 13:43 Heparin - SQ 5,000 unit TID HUGO Administration Hydralazine HCl 25 mg 11/29/17 10:00 12/02/17 10:44 Apresoline - PO 25 mg BID ON LICENSE OF [facility] Administration Sodium Chloride 1,000 mls @ 75 mls/hr 12/02/17 16:00 1/2 Normal Saline IV ASDIR ON LICENSE OF [facility] Cefepime HCl 1 gm in 50 mls @ 100 mls/hr 12/02/17 22:00 Maxipime 1 Gm Premix Ivpb IVPB Q12H ON LICENSE OF [facility] Insulin Aspart 1 vial 11/30/17 07:00 12/02/17 13:43 Novolog Vial Sliding Scale - SQ 4 unit ACHS ON LICENSE OF [facility] Administration Protocol Insulin Detemir 5 units 11/29/17 22:00 12/01/17 21:44 Levemir Vial SQ 5 units HS HUGO Administration Mycophenolate Sodium 360 mg 11/29/17 10:00 12/02/17 10:44 Mycophenolic Acid PO 360 mg BID HUGO Administration Prednisone 5 mg 11/29/17 10:00 12/02/17 10:44 Deltasone - PO 5 mg DAILY [facility]GO Administration Senna 1 tab 11/29/17 22:00 12/01/17 21:35 Senna - PO 1 tab HS HUGO Administration Tacrolimus 1 mg 11/29/17 22:00 12/02/17 10:45 Prograf PO 1 mg BID HUGO Administration Tamsulosin HCl 0.4 mg 11/29/17 22:00 12/01/17 21:35 Flomax - PO 0.4 mg HS HUGO Administration ASSESSMENT/PLAN: 77M with PMH of DM, htn, CAD s/p stents/CABG, DVTs s/p IVC filter, ESRD s/p renal transplant 2008, presents with hyperglycemia, found to have sepsis 2/2 bacteremia and UTI. # sepsis 2/2 bacteremia + UTI - febrile, tachypnea, bacteremia + UTI - repeat blood culture from 12/01/17 growing gram (-) bacilli - UA (+) for UTI, 3+ LE - fever: Tmax 104.2 rectal at 9pm - leukocytosis improving today, still elevated - ID (Dr. Joshi) recs appreciated: Cefepime 1g IVPB q12hr, renally dosed # coughing - f/u Speech/Swallow eval # hyperlycemia / DM - continue Levemir - Novolog SSI - BGMs # CHUCK - likely 2/2 hyperglycemia induced dehydration - pt at baseline renal function, resolved - f/u kidney-graft US - f/u prograf level - Renal (Dr. Perez) recs appreciated - continue Prograf, Mycophenolic acid, and Prednisone # htn - continue home meds of Norvasc, Hydralazine, and Coreg # hld - continue home med of Lipitor # FEN - Fluids: 1/2NS @ 75 ml/hr - Electrolytes: wnl, continue to monitor - Nutrition: diabetic diet # Prophylaxis - DVT ppx with Heparin TID - deconditioning ppx with PT Visit type - Emergency Visit Emergency Visit: Yes ED Registration Date: 12/01/17 Care time: The patient presented to the Emergency Department on the above date and was hospitalized for further evaluation of their emergent condition. - New Patient This patient is new to me today: No - Critical Care Critical Care patient: No
--- NOTE | 2017-12-02 17:18 | PN ---
Teaching Attending Note Name of Resident: Juhi Bernal ATTENDING PHYSICIAN STATEMENT I saw and evaluated the patient. I reviewed the resident's note and discussed the case with the resident. I agree with the resident's findings and plan as documented. SUBJECTIVE: Patient has cough. Had temp 104.2 overnight. OBJECTIVE: Vital Signs Period Temp Pulse Resp BP Sys/Mendoza Pulse Ox Last 24 Hr 98.9 F-104.2 F 82-101 22-28 104-155/55-99 95-96 HEART: S1S2, tachycardic LUNGS: Clear ABDOMEN: Soft, non-tender, non-distended, normal BS EXTREMITIES: No edema Laboratory Results - last 24 hr 12/01/17 12/01/17 12/02/17 17:06 21:43 04:48 WBC RBC Hgb Hct MCV MCH MCHC RDW Plt Count MPV Neutrophils % Lymphocytes % Monocytes % Eosinophils % Basophils % Sodium Potassium Chloride Carbon Dioxide Anion Gap BUN Creatinine POC Glucometer 307 219 Random Glucose Calcium Urine Color Naheed Urine Appearance Cloudy Urine pH 8.0 D Ur Specific [place] 1.014 Urine Protein 3+ H Urine Glucose (UA) Negative Urine Ketones Trace H Urine Blood 2+ H Urine Nitrite Negative Urine Bilirubin Negative Urine Urobilinogen Negative Ur Leukocyte Esterase 3+ H Urine WBC (Auto) 815 Urine RBC (Auto) 428 Urine Bacteria Moderate Urine Mucus Rare 12/02/17 12/02/17 12/02/17 07:00 07:00 11:33 WBC 13.7 H RBC 4.01 Hgb 11.5 L Hct 36.0 MCV 89.8 MCH 28.7 MCHC 32.0 RDW 15.0 Plt Count 123 L MPV 8.9 Neutrophils % 79.2 Lymphocytes % 10.7 D Monocytes % 9.1 Eosinophils % 0.1 D Basophils % 0.9 Sodium 140 Potassium 4.4 Chloride 106 Carbon Dioxide 23 Anion Gap 11 BUN 35 H D Creatinine 1.9 H D POC Glucometer 201 Random Glucose 131 H D Calcium 8.3 L Urine Color Urine Appearance Urine pH Ur Specific [place] Urine Protein Urine Glucose (UA) Urine Ketones Urine Blood Urine Nitrite Urine Bilirubin Urine Urobilinogen Ur Leukocyte Esterase Urine WBC (Auto) Urine RBC (Auto) Urine Bacteria Urine Mucus Current Medications Generic Name Dose Route Start Last Admin Trade Name Freq PRN Reason Stop Dose Admin Acetaminophen 650 mg 11/28/17 23:36 12/02/17 15:32 Tylenol - PO 650 mg Q4H PRN Administration FEVER OR PAIN Albuterol/Ipratropium 1 amp 12/01/17 22:52 12/01/17 23:38 Duoneb - NEB 1 amp Q4H PRN Administration SHORTNESS OF BREATH Amlodipine Besylate 10 mg 11/29/17 10:00 12/02/17 10:44 Norvasc - PO 10 mg DAILY HUGO Administration Aspirin 81 mg 11/29/17 22:00 12/01/17 21:35 Asa - PO 81 mg HS HUGO Administration Atorvastatin Calcium 10 mg 11/29/17 22:00 12/01/17 21:35 Lipitor - PO 10 mg HS HUGO Administration Carvedilol 25 mg 11/29/17 10:00 12/02/17 10:44 Coreg - PO 25 mg BID HUGO Administration Docusate Sodium 100 mg 11/29/17 10:00 12/02/17 10:44 Colace - PO 100 mg DAILY HUGO Administration Duloxetine HCl 20 mg 11/29/17 10:00 12/02/17 10:44 Cymbalta - PO 20 mg BID HUGO Administration Heparin Sodium (Porcine) 5,000 unit 11/29/17 06:00 12/02/17 13:43 Heparin - SQ 5,000 unit TID HUGO Administration Hydralazine HCl 25 mg 11/29/17 10:00 12/02/17 10:44 Apresoline - PO 25 mg BID HUGO Administration Sodium Chloride 1,000 mls @ 75 mls/hr 12/02/17 16:00 1/2 Normal Saline IV ASDIR [facility] Cefepime HCl 1 gm in 50 mls @ 100 mls/hr 12/02/17 22:00 Maxipime 1 Gm Premix Ivpb IVPB Q12H [facility] Insulin Aspart 1 vial 11/30/17 07:00 12/02/17 13:43 Novolog Vial Sliding Scale - SQ 4 unit ACHS [facility] Administration Protocol Insulin Detemir 5 units 11/29/17 22:00 12/01/17 21:44 Levemir Vial SQ 5 units HS [facility] Administration Mycophenolate Sodium 360 mg 11/29/17 10:00 12/02/17 10:44 Mycophenolic Acid PO 360 mg BID HUGO Administration Prednisone 5 mg 11/29/17 10:00 12/02/17 10:44 Deltasone - PO 5 mg DAILY [facility]GO Administration Senna 1 tab 11/29/17 22:00 12/01/17 21:35 Senna - PO 1 tab HS HUGO Administration Tacrolimus 1 mg 11/29/17 22:00 12/02/17 10:45 Prograf PO 1 mg BID HUGO Administration Tamsulosin HCl 0.4 mg 11/29/17 22:00 12/01/17 21:35 Flomax - PO 0.4 mg HS HUGO Administration ASSESSMENT AND PLAN: This is a 77 yo man with history of type 2 DM, HTN, CAD, stents, CABG, IVC filter, kidney transplant, CKD who presented to the ER with hyperglycemia. 1. Sepsis secondary to gram positive bacteremia, possible aspiration pneumonia - Coagulase negative Staph in 1 of 2 blood cultures 11/28 - 2 of 2 blood cultures 12/01 positive - follow up identification and sensitivities - ID consult appreciated - Cefepime started 2. Type 2 DM with hyperglycemia/hypoglycemia - AM Levemir discontinued secondary to hypoglycemia - Continue Levemir at bedtime, Novolog sliding scale 3. Acute kidney injury - IV fluid started - Monitor creatinine 4. Acute metabolic encephalopathy - Resolved 5. Pseudohyponatremia - Resolved 6. Lactic acidosis secondary to sepsis, Metformin - Improved - Continue to hold Metformin 7. History of kidney transplant - Continue Prograf, CellCept, Prednisone 8. CAD, history of stents/CABG - Continue aspirin, Coreg, Lipitor 9. HTN - Continue Norvasc, Coreg, Hydralazine 10. Stage 3 CKD
[2017-12-02] MEDS: ALBUTEROL SO4 2.5/IPRATROPIUM 0.5 INH SOL 3 ML VIAL.NEB. NEB PRN ×2 (17:34→23:45)
--- NOTE | 2017-12-02 17:52 | CONS ---
DATE OF CONSULTATION: DATE OF DICTATION: 12/02/2017 INFECTIOUS DISEASE CONSULTATION HISTORY OF PRESENT ILLNESS: The patient is a 77-year-old male status post renal transplant 2008, now evaluated for gram-negative bacteremia. He was admitted to the hospital on November 28, 2017, with reports of altered mental status and uncontrolled diabetes mellitus. The patient's hospital course was complicated by elevated white blood cell count. He developed fever in hospital to 104.2. Cultures were obtained and are positive for gram-negative rods. He is awake, however lethargic. He does not offer any additional history. He offers no focal complaint. Nursing staff reports he has been coughing especially after eating. No reports of labored breathing, vomiting, grossly purulent urine, infected skin wounds or diarrhea. PAST MEDICAL HISTORY: Positive for renal failure status post renal transplant 2008, history of diabetes mellitus, hypertension, coronary artery disease, myocardial infarction, hypertension. PAST SURGICAL HISTORY: Status post coronary artery stent, coronary artery bypass, IVC filter, renal transplant, history of osteomyelitis of the right thumb, MRSA. ALLERGIES: No known allergies. MEDICATION: At the present time include prednisone, Flomax, Tylenol, heparin, Cymbalta, Coreg, Colace, Norvasc, Apresoline, Lipitor, mycophenolate, Prograf, Novolog, Levemir, aspirin. SOCIAL HISTORY: Lives at home with family members. Nonsmoker. Nondrinker. SYSTEMS REVIEW: Neurologic: Positive for lethargy. No loss of consciousness, seizure activity, or focal weakness. Cardiac: Negative chest pain or palpitations. Respiratory: Positive for cough. Gastrointestinal: Negative vomiting or diarrhea. Genitourinary: As per HPI. LABORATORY DATA: White count 13.7, hematocrit 36.0, platelet count 123, BUN 35, creatinine 1.9. Urinalysis: 815 white cells. Blood cultures from November 28, staphylococcus coagulase negative in 1 bottle. Blood cultures from December 01 show gram-negative rods in 4 bottles. Chest x-ray, increased markings bilaterally with atelectasis left lung field. PHYSICAL EXAMINATION: General: He is awake but lethargic in no acute distress. Vital signs: Temperature 99.6, T-max 104.2, blood pressure 120/68, pulse 88 regular, respirations 22 per minute. HEENT: Sclerae anicteric. Dry mucous membranes. Cardiovascular: Heart sounds S1, S2. Respiratory: Lungs coarse rhonchi bilaterally. Abdomen: Soft. No tenderness elicited. No mass, rebound, or rigidity. Extremities: Negative for edema. IMPRESSION: 1. Gram-negative bacteremia/sepsis. 2. Urinary tract infection/possible sepsis secondary to urinary tract infection. 3. Possible aspiration pneumonia. 4. Status post renal transplant on immunosuppressive therapy. 5. Azotemia. Await identification of blood isolate. Empiric antibiotic coverage with cefepime adjusted for azotemia. Further recommendations pending cultures. Will follow. Thank you for the kind referral. EDGAR GOINS M.D. [id number]
[2017-12-02] MEDS: SODIUM CHLORIDE 0.45% 1,000 ML IV SCH (18:18)
[2017-12-02] MEDS ORDERED: CEFEPIME HCL 1 GM VIAL (RESTRICTED TO ID) IVPB SCH (22:00)
[2017-12-02] MEDS: ATORVASTATIN CA 10 MG TABLET (FP) PO SCH (22:44)
[2017-12-02] MEDS: TAMSULOSIN HCL 0.4 MG CAP.ER.24H (FP) PO SCH (22:44)
[2017-12-02] MEDS: ASPIRIN 81 MG CHEWABLE TABLETS PO SCH (22:44)
[2017-12-02] MEDS: SENNOSIDES 8.6MG TABLET (FP) PO SCH (22:44)
[2017-12-02] MEDS: INSULIN DETEMIR 100 UNITS/ML MDV SQ SCH (22:45)
[2017-12-02] MEDS: CEFEPIME HCL/D5W 1 GM/50 ML BAG IVPB SCH (22:45)
[2017-12-03] MEDS: TACROLIMUS ANHYDROUS 1 MG CAPSULE PO SCH ×3 (01:27→22:06)
[2017-12-03] MEDS: MYCOPHENOLATE SODIUM 360 MG TABLET.DR PO SCH ×3 (01:27→22:06)
[2017-12-03] MEDS: HEPARIN NA (PORCINE) 5,000 UNITS/ML 1ML VIAL SQ SCH ×3 (06:38→22:07)
[2017-12-03] MEDS: INSULIN SLIDING SCALE (NOVOLOG) 1 VIAL SQ SCH ×4 (06:39→22:06)
[2017-12-03 08:24] LABS: HEMATOCRIT 34.9 % (35.4-49); HEMOGLOBIN 11.3 GM/dL (11.7-16.9); MCH 29.4 pg (25.7-33.7); MCHC 32.4 g/dl (32.0-35.9); MEAN CELL VOLUME 90.7 fl (80-96); MEAN PLT VOLUME 9.2 fl (7.5-11.1); PLATELET COUNT 128 K/MM3 (134-434); RBC 3.84 M/mm3 (4.00-5.60); RDW 15.2 % (11.9-15.9); WHITE BLOOD COUNT 10.1 K/mm3 (4.0-10.0)
[2017-12-03 08:33] LABS: ANION GAP 10 (8-16); BLOOD UREA NITROGEN 46 mg/dL (7-18); CALCIUM 8.1 mg/dL (8.5-10.1); CHLORIDE 107 mmol/L (98-107); CO2 20 mmol/L (21-32); GLUCOSE,RANDOM 175 mg/dL (74-106); POTASSIUM 4.5 mmol/L (3.5-5.1); SODIUM 137 mmol/L (136-145)
[2017-12-03 08:34] LABS: CREATININE 2.2 mg/dL (0.7-1.3)
[2017-12-03] MEDS ORDERED: PT OWN MED DRAWER 7, Y5N ONE ×2 (09:22→15:10)
[2017-12-03] MEDS: hydrALAZINE HCL 25 MG TABLET (FP) PO SCH ×2 (11:28→22:06)
[2017-12-03] MEDS: DOCUSATE SODIUM 100 MG CAPSULE (FP) PO SCH (11:29)
[2017-12-03] MEDS: DULoxetine HCL 20 MG CAPSULE.DR (FP) PO SCH ×2 (11:29→22:06)
[2017-12-03] MEDS: CARVEDILOL 25 MG TABLET (FP) PO SCH ×2 (11:29→22:06)
[2017-12-03] MEDS: predniSONE 5 MG TABLET (UD) PO SCH (11:30)
[2017-12-03] MEDS: amLODIPine BESYLATE 10 MG TABLET (FP) PO SCH (11:31)
--- NOTE | 2017-12-03 11:47 | PN ---
Progress Note (short form) - Note Progress Note: RENAL Pt is awake and alert tachypneic and weak Last Vital Signs Temp Pulse Resp BP Pulse Ox 99.6 F 77 22 118/52 96 12/03/17 05:57 12/03/17 05:57 12/03/17 05:57 12/03/17 05:57 12/02/17 22:00 lungs rhonchi anteriorly, did not want to sit up cvs s1s2 rr abd soft, no tendernes, no mass ext no edema neuro awake and alert, responds to questions Current Medications Generic Name Dose Route Start Last Admin Trade Name Freq PRN Reason Stop Dose Admin Acetaminophen 650 mg 11/28/17 23:36 12/02/17 23:00 Tylenol - PO 650 mg Q4H PRN Administration FEVER OR PAIN Albuterol/Ipratropium 1 amp 12/01/17 22:52 12/02/17 23:45 Duoneb - NEB 1 amp Q4H PRN Administration SHORTNESS OF BREATH Amlodipine Besylate 10 mg 11/29/17 10:00 12/03/17 11:31 Norvasc - PO Not Given DAILY [facility] Aspirin 81 mg 11/29/17 22:00 12/02/17 22:44 Asa - PO 81 mg HS HUGO Administration Atorvastatin Calcium 10 mg 11/29/17 22:00 12/02/17 22:44 Lipitor - PO 10 mg HS HUGO Administration Carvedilol 25 mg 11/29/17 10:00 12/03/17 11:29 Coreg - PO Not Given BID [facility] Docusate Sodium 100 mg 11/29/17 10:00 12/03/17 11:29 Colace - PO Not Given DAILY [facility] Duloxetine HCl 20 mg 11/29/17 10:00 12/03/17 11:29 Cymbalta - PO Not Given BID HUGO Heparin Sodium (Porcine) 5,000 unit 11/29/17 06:00 12/03/17 06:38 Heparin - SQ 5,000 unit TID HUGO Administration Hydralazine HCl 25 mg 11/29/17 10:00 12/03/17 11:28 Apresoline - PO Not Given BID [facility] Sodium Chloride 1,000 mls @ 75 mls/hr 12/02/17 16:00 12/02/17 18:18 1/2 Normal Saline IV 75 mls/hr ASDIR [facility] Administration Cefepime HCl 1 gm in 50 mls @ 100 mls/hr 12/02/17 22:00 12/02/17 22:45 Maxipime 1 Gm Premix Ivpb IVPB 100 mls/hr Q12H [facility] Administration Insulin Aspart 1 vial 11/30/17 07:00 12/03/17 06:39 Novolog Vial Sliding Scale - SQ 2 unit ACHS [facility] Administration Protocol Insulin Detemir 5 units 11/29/17 22:00 12/02/17 22:45 Levemir Vial SQ 5 units HS [facility] Administration Mycophenolate Sodium 360 mg 11/29/17 10:00 12/03/17 01:27 Mycophenolic Acid PO 360 mg BID HUGO Administration Prednisone 5 mg 11/29/17 10:00 12/03/17 11:30 Deltasone - PO Not Given DAILY HUGO Senna 1 tab 11/29/17 22:00 12/02/17 22:44 Senna - PO 1 tab HS HUGO Administration Tacrolimus 1 mg 11/29/17 22:00 12/03/17 01:27 Prograf PO 1 mg BID HUGO Administration Tamsulosin HCl 0.4 mg 11/29/17 22:00 12/02/17 22:44 Flomax - PO 0.4 mg HS HUGO Administration CBC, BMP 12/03/17 07:00 12/03/17 07:00 Impression 1. CKD 2. kidney transplant 3. DM 4. hx of syncope 5. HTN 6. hyperlipidemia 7. dehydration 8. proteus bacteremia Plan - contue ivf - send ua, lytes and travel director - await prograf level - ID evaluation noted - monitor blood sugar - continue immunosuppressants MV
--- NOTE | 2017-12-03 15:02 | PN ---
Progress Note (short form) - Note Progress Note: c/o dysuria. denies CP, SOB, fever, chills, cough, N/V/C/D, urinary frequency Current Medications Generic Name Dose Route Start Last Admin Trade Name Freq PRN Reason Stop Dose Admin Acetaminophen 650 mg 11/28/17 23:36 12/02/17 23:00 Tylenol - PO 650 mg Q4H PRN Administration FEVER OR PAIN Albuterol/Ipratropium 1 amp 12/01/17 22:52 12/02/17 23:45 Duoneb - NEB 1 amp Q4H PRN Administration SHORTNESS OF BREATH Amlodipine Besylate 10 mg 11/29/17 10:00 12/03/17 11:31 Norvasc - PO Not Given DAILY [facility] Aspirin 81 mg 11/29/17 22:00 12/02/17 22:44 Asa - PO 81 mg HS HUGO Administration Atorvastatin Calcium 10 mg 11/29/17 22:00 12/02/17 22:44 Lipitor - PO 10 mg HS [facility] Administration Carvedilol 25 mg 11/29/17 10:00 12/03/17 11:29 Coreg - PO Not Given BID [facility] Docusate Sodium 100 mg 11/29/17 10:00 12/03/17 11:29 Colace - PO Not Given DAILY [facility] Duloxetine HCl 20 mg 11/29/17 10:00 12/03/17 11:29 Cymbalta - PO Not Given BID [facility] Heparin Sodium (Porcine) 5,000 unit 11/29/17 06:00 12/03/17 14:57 Heparin - SQ 5,000 unit TID [facility]GO Administration Hydralazine HCl 25 mg 11/29/17 10:00 12/03/17 11:28 Apresoline - PO Not Given BID [facility] Sodium Chloride 1,000 mls @ 75 mls/hr 12/02/17 16:00 12/02/17 18:18 1/2 Normal Saline IV 75 mls/hr ASDIR [facility] Administration Cefepime HCl 1 gm in 50 mls @ 100 mls/hr 12/02/17 22:00 12/02/17 22:45 Maxipime 1 Gm Premix Ivpb IVPB 100 mls/hr Q12H [facility] Administration Insulin Aspart 1 vial 11/30/17 07:00 12/03/17 12:03 Novolog Vial Sliding Scale - SQ 4 unit ACHS [facility] Administration Protocol Insulin Detemir 5 units 11/29/17 22:00 12/02/17 22:45 Levemir Vial SQ 5 units HS [facility] Administration Mycophenolate Sodium 360 mg 11/29/17 10:00 12/03/17 13:23 Mycophenolic Acid PO 360 mg BID [facility]GO Administration Prednisone 5 mg 11/29/17 10:00 12/03/17 11:30 Deltasone - PO Not Given DAILY [facility] Senna 1 tab 11/29/17 22:00 12/02/17 22:44 Senna - PO 1 tab HS [facility]GO Administration Tacrolimus 1 mg 11/29/17 22:00 12/03/17 13:20 Prograf PO 1 mg BID [facility]GO Administration Tamsulosin HCl 0.4 mg 11/29/17 22:00 12/02/17 22:44 Flomax - PO 0.4 mg HS HUGO Administration Last Vital Signs Temp Pulse Resp BP Pulse Ox 100.4 F H 88 20 90/50 94 L 12/03/17 09:00 12/03/17 09:00 12/03/17 09:00 12/03/17 09:00 12/03/17 09:00 General NAD A&O x3 CV S1 S2 RRR Lungs CTA B/L no wheezing/rales/rhonchi Abdomen soft + suprapubic tenderness ND Extremities no pedal edema, +palpable thrill RUE CBCD WBC 10.1 K/mm3 (4.0-10.0) H 12/03/17 07:00 RBC 3.84 M/mm3 (4.00-5.60) L 12/03/17 07:00 Hgb 11.3 GM/dL (11.7-16.9) L 12/03/17 07:00 Hct 34.9 % (35.4-49) L 12/03/17 07:00 MCV 90.7 fl (80-96) 12/03/17 07:00 MCHC 32.4 g/dl (32.0-35.9) 12/03/17 07:00 RDW 15.2 % (11.9-15.9) 12/03/17 07:00 Plt Count 128 K/MM3 (134-434) L 12/03/17 07:00 MPV 9.2 fl (7.5-11.1) 12/03/17 07:00 CMP Sodium 137 mmol/L (136-145) 12/03/17 07:00 Potassium 4.5 mmol/L (3.5-5.1) 12/03/17 07:00 Chloride 107 mmol/L (98-107) 12/03/17 07:00 Carbon Dioxide 20 mmol/L (21-32) L 12/03/17 07:00 Anion Gap 10 (8-16) 12/03/17 07:00 BUN 46 mg/dL (7-18) H D 12/03/17 07:00 Creatinine 2.2 mg/dL (0.7-1.3) H 12/03/17 07:00 Creat Clearance w eGFR 59.02 (>60) 11/29/17 07:30 Calcium 8.1 mg/dL (8.5-10.1) L 12/03/17 07:00 Total Bilirubin 0.5 mg/dL (0.2-1.0) D 11/29/17 07:30 AST 10 U/L (15-37) L 11/29/17 07:30 ALT 30 U/L (12-78) 11/29/17 07:30 Alkaline Phosphatase 70 U/L (45-117) D 11/29/17 07:30 Total Protein 6.2 g/dl (6.4-8.2) L 11/29/17 07:30 Albumin 3.5 g/dl (3.4-5.0) 11/29/17 07:30 Microbiology 11/28/17 18:14 Blood - Peripheral Venous Blood Culture - Preliminary Staphylococcus Coagulase Neg 12/02/17 11:00 Urine - Urine - Catheterized Urine Culture - Preliminary Proteus Species 12/01/17 18:30 Blood - Peripheral Venous Blood Culture - Preliminary Proteus Species 12/01/17 18:30 Blood - Peripheral Venous Blood Culture - Preliminary Proteus Species 11/28/17 18:12 Blood - Peripheral Venous Blood Culture - Preliminary NO GROWTH OBTAINED AFTER 96 HOURS, INCUBATION TO CONTINUE FOR 1 DAYS. ASSESSMENT AND PLAN: 77yo M with PMH DM, HTN, CAD s/p stents/CABG, IVC filter, ESRD s/p renal transplant 2008 presented to the ER with hyperglycemia 1. Hyperglycemia-sugars are controlled. cont levemir 5 units HS. improved. Endo on board 2. Proteus bacteremia and UTI- [id number]. leukcoytosis trending down. repeat Bcx tomorrow. on cefipime day 2.ID on board. await sensitivities 3. dsyphagia- RN reports cough when drinking meds with water this AM. pt denies. [employer] consulted. will downgrade to chopped diet and honey thickened liquids for now. will likely require MBS. 4. CHUCK- likely due to hyperglycemia induced dehydration.concern for urine retention now its trending up. check bladder scan. renal u/s shows no new changes. on 1/2NS. nephrology on board. 5. Acute metabolic encephalopathy- likely due to hyperglycemia vs waxing/waning in elderly. now resolved. oriented to time/person/place. CT head negative for acute pathology. 6. Pseudohyponatremia 7. Lactic acidosis- due to metformin. hold on discharge 8. S/p renal transplant- cont tacrolimus/prednisone/mycophenolate 9. accepted at [facility] for SNF when medically cleared. Visit type - Emergency Visit Emergency Visit: Yes ED Registration Date: 12/01/17 Care time: The patient presented to the Emergency Department on the above date and was hospitalized for further evaluation of their emergent condition. - New Patient This patient is new to me today: No - Critical Care Critical Care patient: No - Discharge Referral Referred to [facility] No
--- NOTE | 2017-12-03 15:30 | PN ---
Progress Note, Physician History of Present Illness: OOB in chair Offers no complaints Remains febrile Blood, urine c/s Proteus sp. - Current Medication List Current Medications: Active Medications Acetaminophen (Tylenol -) 650 mg PO Q4H PRN PRN Reason: FEVER OR PAIN Last Admin: 12/02/17 23:00 Dose: 650 mg Albuterol/Ipratropium (Duoneb -) 1 amp NEB Q4H PRN PRN Reason: SHORTNESS OF BREATH Last Admin: 12/02/17 23:45 Dose: 1 amp Amlodipine Besylate (Norvasc -) 10 mg PO DAILY [facility] Last Admin: 12/03/17 11:31 Dose: Not Given Aspirin (Asa -) 81 mg PO HS [facility] Last Admin: 12/02/17 22:44 Dose: 81 mg Atorvastatin Calcium (Lipitor -) 10 mg PO HS [facility] Last Admin: 12/02/17 22:44 Dose: 10 mg Carvedilol (Coreg -) 25 mg PO BID [facility] Last Admin: 12/03/17 11:29 Dose: Not Given Docusate Sodium (Colace -) 100 mg PO DAILY [facility] Last Admin: 12/03/17 11:29 Dose: Not Given Duloxetine HCl (Cymbalta -) 20 mg PO BID [facility] Last Admin: 12/03/17 11:29 Dose: Not Given Heparin Sodium (Porcine) (Heparin -) 5,000 unit SQ TID [facility] Last Admin: 12/03/17 14:57 Dose: 5,000 unit Hydralazine HCl (Apresoline -) 25 mg PO BID [facility] Last Admin: 12/03/17 11:28 Dose: Not Given Sodium Chloride (1/2 Normal Saline) 1,000 mls @ 75 mls/hr IV ASDIR [facility] Last Admin: 12/02/17 18:18 Dose: 75 mls/hr Cefepime HCl (Maxipime 1 Gm Premix Ivpb) 1 gm in 50 mls @ 100 mls/hr IVPB Q12H [facility] Last Admin: 12/02/17 22:45 Dose: 100 mls/hr Insulin Aspart (Novolog Vial Sliding Scale -) [address] [facility] PRN Reason: Protocol Last Admin: 12/03/17 12:03 Dose: 4 unit Insulin Detemir (Levemir Vial) 5 units SQ [facility] Last Admin: 12/02/17 22:45 Dose: 5 units Mycophenolate Sodium (Mycophenolic Acid) 360 mg PO BID [facility] Last Admin: 12/03/17 13:23 Dose: 360 mg Prednisone (Deltasone -) 5 mg PO DAILY [facility] Last Admin: 12/03/17 11:30 Dose: Not Given Senna (Senna -) 1 tab PO HS [facility] Last Admin: 12/02/17 22:44 Dose: 1 tab Tacrolimus (Prograf) 1 mg PO BID [facility] Last Admin: 12/03/17 13:20 Dose: 1 mg Tamsulosin HCl (Flomax -) 0.4 mg PO HS [facility] Last Admin: 12/02/17 22:44 Dose: 0.4 mg - Objective Vital Signs: Vital Signs Temperature 100.4 F H 12/03/17 09:00 Pulse Rate 88 12/03/17 09:00 Respiratory Rate 20 12/03/17 09:00 Blood Pressure 90/50 12/03/17 09:00 O2 Sat by Pulse Oximetry (%) 94 L 12/03/17 09:00 Constitutional: Yes: No Distress Eyes: Yes: Conjunctiva Clear Cardiovascular: Yes: Regular Rate and Rhythm, S1, S2 Respiratory: Yes: Rhonchi Gastrointestinal: Yes: Normal Bowel Sounds, Soft Labs: CBC, BMP 12/03/17 07:00 12/03/17 07:00 INR, PTT INR 0.98 (0.82-1.09) 11/29/17 07:30 Assessment/Plan UTI/ Sepsis secondary to UTI S/P renal transplant Azotemia Continue cefepime pending final culture results
[2017-12-03] MEDS: CEFEPIME HCL/D5W 1 GM/50 ML BAG IVPB SCH ×2 (16:03→22:05)
[2017-12-03] MEDS: SODIUM CHLORIDE 0.45% 1,000 ML IV SCH (17:10)
[2017-12-03] MEDS: INSULIN DETEMIR 100 UNITS/ML MDV SQ SCH (21:41)
[2017-12-03] MEDS: ASPIRIN 81 MG CHEWABLE TABLETS PO SCH (22:06)
[2017-12-03] MEDS: SENNOSIDES 8.6MG TABLET (FP) PO SCH (22:06)
[2017-12-03] MEDS: ATORVASTATIN CA 10 MG TABLET (FP) PO SCH (22:06)
[2017-12-03] MEDS: TAMSULOSIN HCL 0.4 MG CAP.ER.24H (FP) PO SCH (22:06)
[2017-12-03] MEDS: ACETAMINOPHEN 325 MG TABLET (FP) PO PRN (22:30)
--- NOTE | 2017-12-03 22:55 | PN ---
Progress Note, Physician Chief Complaint: feel hungry most of daytime History of Present Illness: dm,renal transplant,htn,ashd,urosepsis - Current Medication List Current Medications: Active Medications Acetaminophen (Tylenol -) 650 mg PO Q4H PRN PRN Reason: FEVER OR PAIN Last Admin: 12/03/17 22:30 Dose: 650 mg Albuterol/Ipratropium (Duoneb -) 1 amp NEB Q4H PRN PRN Reason: SHORTNESS OF BREATH Last Admin: 12/02/17 23:45 Dose: 1 amp Amlodipine Besylate (Norvasc -) 10 mg PO DAILY [facility] Last Admin: 12/03/17 11:31 Dose: Not Given Aspirin (Asa -) 81 mg PO HS [facility] Last Admin: 12/03/17 22:06 Dose: 81 mg Atorvastatin Calcium (Lipitor -) 10 mg PO HS [facility] Last Admin: 12/03/17 22:06 Dose: 10 mg Carvedilol (Coreg -) 25 mg PO BID [facility] Last Admin: 12/03/17 22:06 Dose: 25 mg Docusate Sodium (Colace -) 100 mg PO DAILY [facility] Last Admin: 12/03/17 11:29 Dose: Not Given Duloxetine HCl (Cymbalta -) 20 mg PO BID [facility] Last Admin: 12/03/17 22:06 Dose: 20 mg Heparin Sodium (Porcine) (Heparin -) 5,000 unit SQ TID [facility] Last Admin: 12/03/17 22:07 Dose: 5,000 unit Hydralazine HCl (Apresoline -) 25 mg PO BID [facility] Last Admin: 12/03/17 22:06 Dose: 25 mg Sodium Chloride (1/2 Normal Saline) 1,000 mls @ 75 mls/hr IV ASDIR [facility] Last Admin: 12/03/17 17:10 Dose: 75 mls/hr Cefepime HCl (Maxipime 1 Gm Premix Ivpb) 1 gm in 50 mls @ 100 mls/hr IVPB Q12H [facility] Last Admin: 12/03/17 22:05 Dose: 100 mls/hr Insulin Aspart (Novolog Vial Sliding Scale -) 1 vial SQ ACHS [facility] PRN Reason: Protocol Last Admin: 12/03/17 22:06 Dose: 10 unit Insulin Detemir (Levemir Vial) 15 units SQ AM [facility] Insulin Detemir (Levemir Vial) 8 units SQ [facility] Mycophenolate Sodium (Mycophenolic Acid) 360 mg PO BID [facility] Last Admin: 12/03/17 22:06 Dose: 360 mg Prednisone (Deltasone -) 5 mg PO DAILY [facility] Last Admin: 12/03/17 11:30 Dose: Not Given Senna (Senna -) 1 tab PO [facility] Last Admin: 12/03/17 22:06 Dose: 1 tab Tacrolimus (Prograf) 1 mg PO BID [facility] Last Admin: 12/03/17 22:06 Dose: 1 mg Tamsulosin HCl (Flomax -) 0.4 mg PO [facility] Last Admin: 12/03/17 22:06 Dose: 0.4 mg - Objective Vital Signs: Vital Signs Temperature 100.6 F H 12/03/17 18:00 Pulse Rate 87 12/03/17 18:00 Respiratory Rate 20 12/03/17 18:00 Blood Pressure 124/60 12/03/17 18:00 O2 Sat by Pulse Oximetry (%) 95 12/03/17 20:40 Constitutional: Yes: Well Nourished Eyes: Yes: EOM Intact HENT: Yes: Normocephalic Neck: Yes: Trachea Midline Cardiovascular: Yes: Regular Rate and Rhythm Respiratory: Yes: CTA Bilaterally Gastrointestinal: Yes: Normal Bowel Sounds ...Rectal Exam: Yes: Deferred Genitourinary: Yes: WNL Breast(s): Yes: WNL Musculoskeletal: Yes: WNL Edema: No Peripheral Pulses WNL: Yes Neurological: Yes: Alert, Oriented Labs: CBC, BMP 12/03/17 07:00 12/03/17 07:00 INR, PTT INR 0.98 (0.82-1.09) 11/29/17 07:30 Problem List - Problems (1) DM2 (diabetes mellitus, type 2) Code(s): E11.9 - TYPE 2 DIABETES MELLITUS WITHOUT COMPLICATIONS Qualifiers: Diabetes mellitus senior care insulin use: with senior care use (2) Dehydration Code(s): E86.0 - DEHYDRATION (3) Fall Code(s): W19.XXXA - UNSPECIFIED FALL, INITIAL ENCOUNTER Qualifiers: Encounter type: initial encounter Qualified Code(s): W19.XXXA - Unspecified fall, initial encounter (4) Hyperglycemia Code(s): R73.9 - HYPERGLYCEMIA, UNSPECIFIED (5) Leukocytosis Code(s): D72.829 - ELEVATED WHITE BLOOD CELL COUNT, UNSPECIFIED Qualifiers: Leukocytosis type: unspecified Qualified Code(s): D72.829 - Elevated white blood cell count, unspecified Assessment/Plan Current Active Problems CHUCK (acute kidney injury) (Acute) DM2 (diabetes mellitus, type 2) (Acute) Dehydration (Acute) Fall (Acute) Hyperglycemia (Acute) Hypoglycemia (Acute) Leukocytosis (Acute) H/O kidney transplant (Chronic) HTN (hypertension) (Chronic) Hx of CABG (Chronic) Immunocompromised patient (Chronic) Kidney transplant recipient (Chronic) Abnormal Lab Results 12/03/17 12/03/17 07:00 07:00 WBC 10.1 H RBC 3.84 L Hgb 11.3 L Hct 34.9 L Plt Count 128 L Carbon Dioxide 20 L BUN 46 H D Creatinine 2.2 H Random Glucose 175 H D Calcium 8.1 L Laboratory Results - last 24 hr 12/02/17 12/03/17 12/03/17 22:53 06:37 07:00 WBC 10.1 H RBC 3.84 L Hgb 11.3 L Hct 34.9 L MCV 90.7 MCH 29.4 MCHC 32.4 RDW 15.2 Plt Count 128 L MPV 9.2 Sodium Potassium Chloride Carbon Dioxide Anion Gap BUN Creatinine POC Glucometer 151 180 Random Glucose Calcium 12/03/17 12/03/17 12/03/17 07:00 11:21 17:08 WBC RBC Hgb Hct MCV MCH MCHC RDW Plt Count MPV Sodium 137 Potassium 4.5 Chloride 107 Carbon Dioxide 20 L Anion Gap 10 BUN 46 H D Creatinine 2.2 H POC Glucometer 244 237 Random Glucose 175 H D Calcium 8.1 L 12/03/17 21:38 WBC RBC Hgb Hct MCV MCH MCHC RDW Plt Count MPV Sodium Potassium Chloride Carbon Dioxide Anion Gap BUN Creatinine POC Glucometer 397 Random Glucose Calcium plan: levemir 15 units am levemir 8 units hs will need home day care provider vns family will help provide for support part of day
[2017-12-03] MEDS: ALBUTEROL SO4 2.5/IPRATROPIUM 0.5 INH SOL 3 ML VIAL.NEB. NEB PRN (23:10)
[2017-12-04] MEDS ORDERED: INSULIN (NOVOLOG) ASPART 100 UNITS/ML 10ML VIAL ONE ×3 (06:24→23:49)
[2017-12-04] MEDS: HEPARIN NA (PORCINE) 5,000 UNITS/ML 1ML VIAL SQ SCH ×3 (06:25→21:43)
[2017-12-04] MEDS: INSULIN SLIDING SCALE (NOVOLOG) 1 VIAL SQ SCH ×4 (06:26→21:43)
[2017-12-04] MEDS: SODIUM CHLORIDE 0.45% 1,000 ML IV SCH (06:59)
[2017-12-04] MEDS ORDERED: INSULIN DETEMIR 100 UNITS/ML MDV SQ SCH ×2 (07:00→22:00)
--- NOTE | 2017-12-04 08:28 | PN ---
Physical Exam: SUBJECTIVE: Patient seen and examined by me at bedside. No overnight events noted. Patient reports feeling much better and ready to go home. He states he slept well last night and has been eating well. Otherwise, patient denies fever , chills, nausea, vomiting, abdominal pain, chest pain, palpitations, shortness of breath, headaches, dysuria. OBJECTIVE: Vital Signs Period Temp Pulse Resp BP Sys/Mendoza Pulse Ox Last 24 Hr 99.1 F-100.8 F 82-88 18-20 90-124/50-66 94-95 GENERAL: Awake, Alert, in no acute distress LUNGS: Breath sounds equal, clear to auscultation bilaterally, no wheezes, no crackles, no accessory muscle use. HEART: Regular rate and rhythm, +S1/S2. ABDOMEN: Soft, nontender, nondistend, no guarding. EXTREMITIES: Warm, well-perfused, no edema. PSYCH: Normal mood, normal affect. Laboratory Results - last 24 hr 12/03/17 12/03/17 12/03/17 07:00 11:21 17:08 Sodium 137 Potassium 4.5 Chloride 107 Carbon Dioxide 20 L Anion Gap 10 BUN 46 H D Creatinine 2.2 H POC Glucometer 244 237 Random Glucose 175 H D Calcium 8.1 L 12/03/17 12/04/17 21:38 06:20 Sodium Potassium Chloride Carbon Dioxide Anion Gap BUN Creatinine POC Glucometer 397 234 Random Glucose Calcium Active Medications Generic Name Dose Route Start Last Admin Trade Name Freq PRN Reason Stop Dose Admin Acetaminophen 650 mg 11/28/17 23:36 12/03/17 22:30 Tylenol - PO 650 mg Q4H PRN Administration FEVER OR PAIN Albuterol/Ipratropium 1 amp 12/01/17 22:52 12/03/17 23:10 Duoneb - NEB 1 amp Q4H PRN Administration SHORTNESS OF BREATH Amlodipine Besylate 10 mg 11/29/17 10:00 12/03/17 11:31 Norvasc - PO Not Given DAILY [facility] Aspirin 81 mg 11/29/17 22:00 12/03/17 22:06 Asa - PO 81 mg HS [facility] Administration Atorvastatin Calcium 10 mg 11/29/17 22:00 12/03/17 22:06 Lipitor - PO 10 mg HS [facility] Administration Carvedilol 25 mg 11/29/17 10:00 12/03/17 22:06 Coreg - PO 25 mg BID [facility] Administration Docusate Sodium 100 mg 11/29/17 10:00 12/03/17 11:29 Colace - PO Not Given DAILY [facility] Duloxetine HCl 20 mg 11/29/17 10:00 12/03/17 22:06 Cymbalta - PO 20 mg BID [facility] Administration Heparin Sodium (Porcine) 5,000 unit 11/29/17 06:00 12/04/17 06:25 Heparin - SQ 5,000 unit TID [facility] Administration Hydralazine HCl 25 mg 11/29/17 10:00 12/03/17 22:06 Apresoline - PO 25 mg BID [facility] Administration Sodium Chloride 1,000 mls @ 75 mls/hr 12/02/17 16:00 12/04/17 06:59 1/2 Normal Saline IV 75 mls/hr ASDIR [facility] Administration Cefepime HCl 1 gm in 50 mls @ 100 mls/hr 12/02/17 22:00 12/03/17 22:05 Maxipime 1 Gm Premix Ivpb IVPB 100 mls/hr Q12H [facility] Administration Insulin Aspart 1 vial 11/30/17 07:00 12/04/17 06:26 Novolog Vial Sliding Scale - SQ 4 unit ACHS [facility] Administration Protocol Insulin Detemir 15 units 12/04/17 07:00 12/04/17 06:25 Levemir Vial SQ 15 units AM [facility] Administration Insulin Detemir 8 units 12/04/17 22:00 Levemir Vial SQ HS [facility] Mycophenolate Sodium 360 mg 11/29/17 10:00 12/03/17 22:06 Mycophenolic Acid PO 360 mg BID [facility] Administration Prednisone 5 mg 11/29/17 10:00 12/03/17 11:30 Deltasone - PO Not Given DAILY [facility] Senna 1 tab 11/29/17 22:00 12/03/17 22:06 Senna - PO 1 tab HS [facility] Administration Tacrolimus 1 mg 11/29/17 22:00 12/03/17 22:06 Prograf PO 1 mg BID [facility] Administration Tamsulosin HCl 0.4 mg 11/29/17 22:00 12/03/17 22:06 Flomax - PO 0.4 mg HS [facility] Administration ASSESSMENT/PLAN: Patient is a 77 year old female with a PMHx of HTN, IDDMII, CAD s/p stents/CABG , IVC filter, ESRD s/p renal transplant (2008), who presented from the ED after a glucose reading above 400 at home. Patient admitted for further monitoring and management. Hyperglycemia -Glucose levelsin the 200's today and controlled -Continue ISS and BGM -Levemir increased 15 units am and 8 units HS -Endo recommendations appreciated UTI with Proteus Bacteremia -Tmax of 100.8 overnight but with leukocytosis trending down -Cefepime switched to Ceftriaxone 2gm daily, as per ID -Repeat blood cultures pending -ID recommendations appreciated Dysphagia -Tolerating chopped diet and will continue -Speech and swallow consult placed and will likely require modified barium swallow CHUCK- Improving -Likely secondary from dehydration and hyperglycemia -Urine studies pending -No IV fluids due to fluid overload Acute Metabolic Encephalopathy -Likely secondary to UTI and Hyperglyxemia. -Patient seems at baseline today and is oriented -Head CT negative S/P Renal Transplant -Continue Tacrolimus 1mg BID -Continue Prednisone 5mg daily -Continue Mycophenelate 360mg BID CAD s/p stents and CABG -Continue ASA 81 mg daily HTN -Continue Hydralazine 25mg BID -Continue Amlodipine 10mg daily -Continue Coreg 25mg BID H[facility] -Continue Lipitor 10mg daily BPH -Continue Flomax 0.4mg daily F/E/N -On no fluids -Electrolytes wnl -Dysphagia chopped ground diet Prophylaxis -Heparin 5000 units TID for DVT -No GI required Disposition -Full code -Accepted to [facility] once medically cleared Visit type - Emergency Visit Emergency Visit: Yes ED Registration Date: 12/01/17 Care time: The patient presented to the Emergency Department on the above date and was hospitalized for further evaluation of their emergent condition. - New Patient This patient is new to me today: Yes Date on this admission: 12/04/17 - Critical Care Critical Care patient: No
[2017-12-04] MEDS ORDERED: PT OWN MED DRAWER 7, Y5N ONE (08:50)
[2017-12-04 09:19] LABS: BASO % 0.3 % (0-2.0); EOS % 2.7 % (0-4.5); HEMATOCRIT 32.7 % (35.4-49); HEMOGLOBIN 10.7 GM/dL (11.7-16.9); LYMPH % 14.3 % (8-40); MCH 29.1 pg (25.7-33.7); MCHC 32.6 g/dl (32.0-35.9); MEAN CELL VOLUME 89.4 fl (80-96); MEAN PLT VOLUME 8.9 fl (7.5-11.1); MONO % 11.3 % (3.8-10.2); NEUT % 71.4 % (42.8-82.8); PLATELET COUNT 143 K/MM3 (134-434); RBC 3.66 M/mm3 (4.00-5.60); RDW 15.1 % (11.9-15.9); WHITE BLOOD COUNT 10.3 K/mm3 (4.0-10.0)
[2017-12-04] MEDS: predniSONE 5 MG TABLET (UD) PO SCH (09:38)
[2017-12-04] MEDS: MYCOPHENOLATE SODIUM 360 MG TABLET.DR PO SCH ×2 (09:38→21:48)
[2017-12-04] MEDS: TACROLIMUS ANHYDROUS 1 MG CAPSULE PO SCH ×2 (09:39→21:49)
[2017-12-04] MEDS: amLODIPine BESYLATE 10 MG TABLET (FP) PO SCH (09:39)
[2017-12-04] MEDS: DULoxetine HCL 20 MG CAPSULE.DR (FP) PO SCH ×2 (09:39→21:43)
[2017-12-04 10:02] LABS: ANION GAP 7 (8-16); BLOOD UREA NITROGEN 53 mg/dL (7-18); CALCIUM 7.9 mg/dL (8.5-10.1); CHLORIDE 107 mmol/L (98-107); CO2 24 mmol/L (21-32); CREATININE 1.8 mg/dL (0.7-1.3); GLUCOSE,RANDOM 229 mg/dL (74-106); SODIUM 138 mmol/L (136-145)
[2017-12-04 10:18] LABS: POTASSIUM 4.4 mmol/L (3.5-5.1)
--- NOTE | 2017-12-04 10:39 | PN ---
Teaching Attending Note Name of Resident: Dinora Randolph ATTENDING PHYSICIAN STATEMENT I saw and evaluated the patient. I reviewed the resident's note and discussed the case with the resident. I agree with the resident's findings and plan as documented. SUBJECTIVE:no complaints. denies CP, SOB, fever, chills, N/V/C/D OBJECTIVE: Last Vital Signs Temp Pulse Resp BP Pulse Ox 99.1 F 82 20 106/62 95 12/04/17 06:00 12/04/17 06:00 12/04/17 06:00 12/04/17 06:00 12/03/17 20:40 General more lethargic today, alert and responsive to verbal stimuli CV S1 S2 RRR no murmur/rub/gallop lungs R base crackles, no wheezing ASSESSMENT AND PLAN: 77yo M with PMH DM, HTN, CAD s/p stents/CABG, IVC filter, ESRD s/p renal transplant 2008 presented to the ER with hyperglycemia 1. Hyperglycemia-sugars are controlled. evaluated by endo and mortezair increased , will monitor closely. improved. Endo on board 2. Proteus bacteremia and UTI- Tm100.8. leukcoytosis trending down. on Cefipime day 3. repeat Bcx pending. ID on board. 3. dsyphagia- RN states tolerating chopped diet. will cont for now. [employer] consulted. will likely require MBS. 4. CHUCK- likely due to hyperglycemia induced dehydration. bladder scan negative for retention. will need to d/c IVF due to crackles. renal u/s shows no new changes. urine studies pending. nephrology on board. 5. Acute metabolic encephalopathy- likely due to hyperglycemia vs waxing/waning in elderly. slightly confused this AM. as per RN he ate well and was at baseline. will need to re-assess later today. he is still oriented. CT head negative for acute pathology. 6. Pseudohyponatremia 7. Lactic acidosis- due to metformin. hold on discharge 8. S/p renal transplant- cont tacrolimus/prednisone/mycophenolate 9. accepted at [facility] for SNF when medically cleared.
[2017-12-04] MEDS: hydrALAZINE HCL 25 MG TABLET (FP) PO SCH ×2 (11:08→21:43)
[2017-12-04] MEDS: CEFEPIME HCL/D5W 1 GM/50 ML BAG IVPB SCH (11:08)
[2017-12-04] MEDS: CARVEDILOL 25 MG TABLET (FP) PO SCH ×2 (11:08→21:43)
[2017-12-04] MEDS: DOCUSATE SODIUM 100 MG CAPSULE (FP) PO SCH (11:08)
--- NOTE | 2017-12-04 11:10 | PN ---
Progress Note (short form) - Note Progress Note: RENAL Pt is awake and alert more comfortable today Last Vital Signs Temp Pulse Resp BP Pulse Ox 99.1 F 82 20 106/62 95 12/04/17 06:00 12/04/17 06:00 12/04/17 06:00 12/04/17 06:00 12/03/17 20:40 lungs rhonchi anteriorly cvs s1s2 rr abd soft, no tendernes, no mass ext no edema neuro awake and alert, responds to questions. Somewhat confused CBC, BMP 12/04/17 08:00 12/04/17 08:00 Current Medications Generic Name Dose Route Start Last Admin Trade Name Freq PRN Reason Stop Dose Admin Acetaminophen 650 mg 11/28/17 23:36 12/03/17 22:30 Tylenol - PO 650 mg Q4H PRN Administration FEVER OR PAIN Albuterol/Ipratropium 1 amp 12/01/17 22:52 12/03/17 23:10 Duoneb - NEB 1 amp Q4H PRN Administration SHORTNESS OF BREATH Amlodipine Besylate 10 mg 11/29/17 10:00 12/04/17 09:39 Norvasc - PO 10 mg DAILY [facility] Administration Aspirin 81 mg 11/29/17 22:00 12/03/17 22:06 Asa - PO 81 mg HS [facility] Administration Atorvastatin Calcium 10 mg 11/29/17 22:00 12/03/17 22:06 Lipitor - PO 10 mg HS [facility] Administration Carvedilol 25 mg 11/29/17 10:00 12/04/17 11:08 Coreg - PO 25 mg BID [facility] Administration Docusate Sodium 100 mg 11/29/17 10:00 12/04/17 11:08 Colace - PO Not Given DAILY [facility] Duloxetine HCl 20 mg 11/29/17 10:00 12/04/17 09:39 Cymbalta - PO 20 mg BID [facility] Administration Heparin Sodium (Porcine) 5,000 unit 11/29/17 06:00 12/04/17 06:25 Heparin - SQ 5,000 unit TID [facility] Administration Hydralazine HCl 25 mg 11/29/17 10:00 12/04/17 11:08 Apresoline - PO 25 mg BID [facility] Administration Cefepime HCl 1 gm in 50 mls @ 100 mls/hr 12/02/17 22:00 12/04/17 11:08 Maxipime 1 Gm Premix Ivpb IVPB 100 mls/hr Q12H [facility] Administration Insulin Aspart 1 vial 11/30/17 07:00 12/04/17 06:26 Novolog Vial Sliding Scale - SQ 4 unit ACHS [facility] Administration Protocol Insulin Detemir 15 units 12/04/17 07:00 12/04/17 06:25 Levemir Vial SQ 15 units AM [facility] Administration Insulin Detemir 8 units 12/04/17 22:00 Levemir Vial SQ HS [facility] Mycophenolate Sodium 360 mg 11/29/17 10:00 12/04/17 09:38 Mycophenolic Acid PO 360 mg BID [facility] Administration Prednisone 5 mg 11/29/17 10:00 12/04/17 09:38 Deltasone - PO 5 mg DAILY [facility] Administration Senna 1 tab 11/29/17 22:00 12/03/17 22:06 Senna - PO 1 tab HS [facility] Administration Tacrolimus 1 mg 11/29/17 22:00 12/04/17 09:39 Prograf PO 1 mg BID [facility] Administration Tamsulosin HCl 0.4 mg 11/29/17 22:00 12/03/17 22:06 Flomax - PO 0.4 mg HS [facility] Administration Impression 1. CKD 2. kidney transplant 3. DM 4. hx of syncope 5. HTN 6. hyperlipidemia 7. dehydration 8. proteus bacteremia Plan - can dc fluids - hold amlodipine to allow BP to rise - await prograf level - monitor blood sugar - continue immunosuppressants - if persistently febriole can hold mycophenolate short term MV
--- NOTE | 2017-12-04 11:23 | PN ---
Progress Note, Physician History of Present Illness: Awake, alert in bed Offers no complaints Continues to have low grade fever WBC improved Azotemia improved Blood, urine c/s Proteus sp. - Current Medication List Current Medications: Active Medications Acetaminophen (Tylenol -) 650 mg PO Q4H PRN PRN Reason: FEVER OR PAIN Last Admin: 12/03/17 22:30 Dose: 650 mg Albuterol/Ipratropium (Duoneb -) 1 amp NEB Q4H PRN PRN Reason: SHORTNESS OF BREATH Last Admin: 12/03/17 23:10 Dose: 1 amp Amlodipine Besylate (Norvasc -) 10 mg PO DAILY [facility] Last Admin: 12/04/17 09:39 Dose: 10 mg Aspirin (Asa -) 81 mg PO HS [facility] Last Admin: 12/03/17 22:06 Dose: 81 mg Atorvastatin Calcium (Lipitor -) 10 mg PO HS [facility] Last Admin: 12/03/17 22:06 Dose: 10 mg Carvedilol (Coreg -) 25 mg PO BID [facility] Last Admin: 12/04/17 11:08 Dose: 25 mg Docusate Sodium (Colace -) 100 mg PO DAILY [facility] Last Admin: 12/04/17 11:08 Dose: Not Given Duloxetine HCl (Cymbalta -) 20 mg PO BID [facility] Last Admin: 12/04/17 09:39 Dose: 20 mg Heparin Sodium (Porcine) (Heparin -) 5,000 unit SQ TID [facility] Last Admin: 12/04/17 06:25 Dose: 5,000 unit Hydralazine HCl (Apresoline -) 25 mg PO BID [facility] Last Admin: 12/04/17 11:08 Dose: 25 mg Cefepime HCl (Maxipime 1 Gm Premix Ivpb) 1 gm in 50 mls @ 100 mls/hr IVPB Q12H [facility] Last Admin: 12/04/17 11:08 Dose: 100 mls/hr Insulin Aspart (Novolog Vial Sliding Scale -) 1 vial SQ ACHS [facility] PRN Reason: Protocol Last Admin: 12/04/17 06:26 Dose: 4 unit Insulin Detemir (Levemir Vial) 15 units SQ AM [facility] Last Admin: 12/04/17 06:25 Dose: 15 units Insulin Detemir (Levemir Vial) 8 units SQ HS [facility] Mycophenolate Sodium (Mycophenolic Acid) 360 mg PO BID [facility] Last Admin: 12/04/17 09:38 Dose: 360 mg Prednisone (Deltasone -) 5 mg PO DAILY [facility] Last Admin: 12/04/17 09:38 Dose: 5 mg Senna (Senna -) 1 tab PO HS [facility] Last Admin: 12/03/17 22:06 Dose: 1 tab Tacrolimus (Prograf) 1 mg PO BID [facility] Last Admin: 12/04/17 09:39 Dose: 1 mg Tamsulosin HCl (Flomax -) 0.4 mg PO HS [facility] Last Admin: 12/03/17 22:06 Dose: 0.4 mg - Objective Vital Signs: Vital Signs Temperature 99.1 F 12/04/17 06:00 Pulse Rate 82 12/04/17 06:00 Respiratory Rate 20 12/04/17 06:00 Blood Pressure 106/62 12/04/17 06:00 O2 Sat by Pulse Oximetry (%) 95 12/03/17 20:40 Constitutional: Yes: No Distress, Other (Chronically ill appearing) Eyes: Yes: Conjunctiva Clear Cardiovascular: Yes: Regular Rate and Rhythm, S1, S2 Respiratory: Yes: Other (+ crepitations at bases) Gastrointestinal: Yes: Normal Bowel Sounds, Soft. No: Tenderness Edema: No Labs: CBC, BMP 12/04/17 08:00 12/04/17 08:00 INR, PTT INR 0.98 (0.82-1.09) 11/29/17 07:30 Assessment/Plan UTI/ Sepsis secondary to UTI Proteus S/P renal transplant Azotemia Substitute ceftriaxone 2gm IVPB q24h
[2017-12-04] MEDS: CEFTRIAXONE IN IS-OSM DEXTROSE 2 GM/50 ML BAG IVPB SCH (13:22)
[2017-12-04 13:45] LABS: URINE APPEARANCE CLOUDY; URINE BILIRUBIN NEGATIVE (NEGATIVE); URINE BLOOD 3+ (NEGATIVE); URINE COLOR DKYELLOW; URINE GLUCOSE (UA) 1+ (NEGATIVE); URINE KETONE TRACE (NEGATIVE); URINE NITRITE NEGATIVE (NEGATIVE); URINE UROBILINOGEN NEGATIVE mg/dL (0.2-1.0)
[2017-12-04 13:48] LABS: URINE LEUK ESTERASE 3+ (NEGATIVE); URINE PROTEIN 2+ (NEGATIVE)
[2017-12-04 13:50] LABS: URINE MUCUS RARE
[2017-12-04] MEDS: ATORVASTATIN CA 10 MG TABLET (FP) PO SCH (21:43)
[2017-12-04] MEDS: SENNOSIDES 8.6MG TABLET (FP) PO SCH (21:43)
[2017-12-04] MEDS: ASPIRIN 81 MG CHEWABLE TABLETS PO SCH (21:43)
[2017-12-04] MEDS: TAMSULOSIN HCL 0.4 MG CAP.ER.24H (FP) PO SCH (21:48)
[2017-12-04 23:21] LABS: ANION GAP 11 (8-16); BLOOD UREA NITROGEN 56 mg/dL (7-18); CALCIUM 7.8 mg/dL (8.5-10.1); CHLORIDE 102 mmol/L (98-107); CO2 21 mmol/L (21-32); CREATININE 2.1 mg/dL (0.7-1.3); POTASSIUM 4.3 mmol/L (3.5-5.1); SODIUM 134 mmol/L (136-145)
[2017-12-04 23:32] LABS: GLUCOSE,RANDOM 436 mg/dL (74-106)
--- NOTE | 2017-12-04 23:39 | HOSP ---
Physical Examination Vital Signs: Vital Signs Temperature 97.5 F L 12/04/17 18:00 Pulse Rate 79 12/04/17 18:00 Respiratory Rate 22 12/04/17 18:00 Blood Pressure 100/50 12/04/17 18:00 O2 Sat by Pulse Oximetry (%) 95 12/03/17 20:40 Labs: CBC, BMP 12/04/17 08:00 12/04/17 21:44 Hospitalist Encounter Assessment: I was paged by the nurse for hyperglycemia of patient mentioned 450 BMP was ordered 2 units levemir as orderd and 2 units novolog sq will continue to monitor Patient is asymptomatic Visit type - Emergency Visit Emergency Visit: Yes ED Registration Date: 12/01/17 Care time: The patient presented to the Emergency Department on the above date and was hospitalized for further evaluation of their emergent condition. - New Patient This patient is new to me today: No - Critical Care Critical Care patient: No
[2017-12-04] MEDS ORDERED: INSULIN DETEMIR 100 UNITS/ML MDV SQ ONE (23:45)
[2017-12-04] MEDS ORDERED: INSULIN (NOVOLOG) ASPART 100 UNITS/ML 10ML VIAL SQ ONE (23:45)
[2017-12-05] MEDS: INSULIN SLIDING SCALE (NOVOLOG) 1 VIAL SQ SCH ×2 (06:36→13:11)
[2017-12-05] MEDS: HEPARIN NA (PORCINE) 5,000 UNITS/ML 1ML VIAL SQ SCH ×2 (06:38→14:35)
[2017-12-05] MEDS ORDERED: INSULIN DETEMIR 100 UNITS/ML MDV SQ SCH (07:00)
[2017-12-05 09:18] LABS: HEMATOCRIT 33.2 % (35.4-49); HEMOGLOBIN 10.8 GM/dL (11.7-16.9); MCH 29.2 pg (25.7-33.7); MCHC 32.6 g/dl (32.0-35.9); MEAN CELL VOLUME 89.6 fl (80-96); MEAN PLT VOLUME 8.6 fl (7.5-11.1); PLATELET COUNT 162 K/MM3 (134-434); RDW 15.5 % (11.9-15.9); WHITE BLOOD COUNT 9.5 K/mm3 (4.0-10.0)
[2017-12-05] MEDS ORDERED: PT OWN MED DRAWER 7, Y5N ONE ×2 (09:23→09:24)
[2017-12-05] MEDS: MYCOPHENOLATE SODIUM 360 MG TABLET.DR PO SCH (09:29)
[2017-12-05] MEDS: CARVEDILOL 25 MG TABLET (FP) PO SCH (09:29)
[2017-12-05] MEDS: hydrALAZINE HCL 25 MG TABLET (FP) PO SCH (09:29)
[2017-12-05] MEDS: DULoxetine HCL 20 MG CAPSULE.DR (FP) PO SCH (09:30)
[2017-12-05] MEDS: DOCUSATE SODIUM 100 MG CAPSULE (FP) PO SCH (09:30)
[2017-12-05] MEDS: TACROLIMUS ANHYDROUS 1 MG CAPSULE PO SCH (09:30)
[2017-12-05] MEDS: amLODIPine BESYLATE 10 MG TABLET (FP) PO SCH (09:30)
[2017-12-05] MEDS: CEFTRIAXONE IN IS-OSM DEXTROSE 2 GM/50 ML BAG IVPB SCH (09:30)
[2017-12-05] MEDS: predniSONE 5 MG TABLET (UD) PO SCH (09:30)
[2017-12-05 09:56] LABS: ANION GAP 8 (8-16); BLOOD UREA NITROGEN 53 mg/dL (7-18); CALCIUM 7.9 mg/dL (8.5-10.1); CHLORIDE 110 mmol/L (98-107); CO2 23 mmol/L (21-32); CREATININE 1.5 mg/dL (0.7-1.3); GLUCOSE,RANDOM 88 mg/dL (74-106); SODIUM 141 mmol/L (136-145)
--- NOTE | 2017-12-05 10:30 | CONSULT ---
Admitting History and Physical - Primary Care Physician PCP: Tawny Lim - Admission History of Present Illness: This is a 77 yo man with history of type 2 DM, HTN, CAD, stents, CABG, IVC filter, kidney transplant, CKD who presented to the ER with hyperglycemia. Sepsis secondary to gram positive bacteremia, possible aspiration pneumonia Pt noted to be coughing mealtime. Initially made NPO, then diet modified to chopped with Honey thick liquid with improved tolerance per staff. Selected Entries 12/01/17 12/01/17 12/01/17 02:00 05:43 13:00 Breakfast Lunch Supper Temperature 100.9 F H 100.6 F H 99.4 F 12/01/17 12/01/17 12/02/17 21:00 23:00 01:37 Breakfast Lunch Supper Temperature 104.2 F H 102.2 F H 100.6 F H 12/02/17 12/02/17 12/02/17 05:00 09:00 13:25 Breakfast Lunch Supper Temperature 98.9 F 99.6 F 101.5 F H 12/02/17 12/02/17 12/03/17 20:51 22:00 02:00 Breakfast Lunch Supper 0 Temperature 100.9 F H 99.8 F H 100.4 F H 12/03/17 12/03/17 12/03/17 05:57 09:00 12:28 Breakfast Lunch NPO Supper Temperature 99.6 F 100.4 F H 12/03/17 12/03/17 12/03/17 18:00 22:00 22:15 Breakfast Lunch Supper 25% Temperature 100.6 F H 100.8 F H 12/04/17 12/04/17 12/04/17 06:00 10:00 15:12 Breakfast 75% Lunch 75% Supper Temperature 99.1 F 97.3 F L 97.5 F L 12/04/17 12/04/17 12/05/17 18:00 21:40 07:06 Breakfast Lunch Supper Temperature 97.5 F L 97.9 F 98.4 F 12/05/17 12/05/17 08:49 10:02 Breakfast 75% Lunch Supper Temperature 97.5 F L Laboratory Tests 12/01/17 12/03/17 12/04/17 07:00 07:00 08:00 WBC 16.5 H D 10.1 H 10.3 H 12/05/17 07:50 WBC 9.5 Known tyo me for Evaluation, MBS,TX in December 2016. MBS revealed moderate stasis of solids in pharynx with choking risk. Pt needed to follow solids with liquid to clear residue and there was recurrent trace penetration/aspiration on thin liquid.Pt was placed on puree and trial of thin liquid and d/c'd to STR at that time. History Source: Medical Record Limitations to Obtaining History: Clinical Condition - Past Medical History Cardiovascular: Yes: CAD (CABG), HTN, Other (PAD, heel osteo in 04/05) Renal/: Yes: Renal Failure, Renal Inusuff, Hemodialysis (in past prior to renal transplant 2008), Other (S/P Kidney tranplant 2008. 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) Endocrine: Yes: Diabetes Mellitus - Past Surgical History Past Surgical History: Yes: AV Fistula/Graft (right upper arm), CABG, Kidney Transplant (right 2009) - Smoking History Smoking history: Never smoked Have you smoked in the past 12 months: No Aproximately how many cigarettes per day: 0 - Alcohol/Substance Use Hx Alcohol Use: No - Social History ADL: Support Services History of Recent Travel: No History - Admission Reason For Visit: ACUTE KIDNEY INJURY - Diagnostics X-ray: Report Reviewed - General Mental Status: Awake and Alert, Able to Follow Commands, Forgetful Attention: Distractible Ability to Follow Directions: Fair - Hearing Hearing: Functional Speech Evaluation - Communication Primary Language: SAMI Communication: Yes: Simple Responses - Speech Production Intelligibility: Yes: Mildly Impaired, Moderately Impaired - Speech Characteristics Voice Loudness: Normal Voice Pitch: Yes: Normal Voice Phonatory-based Quality: Yes: Vocal Wetness Speech Pattern: Impaired Speech Clarity: < 50% Nasal Resonance: Normal Articulation: Yes: Imprecise - Language/Auditory Comprehension Follows: Yes: 1 Stage Simple Commands - Swallow Evaluation/Bedside Assessment Current Nutritional Intake: Dysphagia Minced, Honey Textured Liquids Dentition: Yes: Adequate Facial Symmetry at Rest: Symmetrical Against Resistance Opening: Weak Against Resistance Closing: Weak Pucker Lips: Weak Smile: Weak Lingual Movement: Symmetric Lingual Movement Characteristics: Normal Velopharyngeal Movement: Normal Laryngeal Movement: Labored,delay initiation Labial Seal: WFL Oral Prep Time: Increased A-P Transit: Impaired (suspect spillage over bot with thin liquid into airway intermittently) Timing of Swallow: Delayed Coughing/Throat Clear: No Change in Voice: Yes (vocal wetness,r/o silent aspiration) Recommendations - Speech Evaluation, Impression/Plan Impression: vocal wetness,intermittent cough, sepsis. r/o silent aspiration. h /o dysphagia noted during [facility] [place] 12/2016. - Dysphagia Impressions/Plan Swallowing Skills: Impaired Dysphagia Impressions: Mild Impairment, Moderate Impairment *Silent aspiration: cannot be R/O at bedside Recommendations: Modified Barium Swallow
--- NOTE | 2017-12-05 13:58 | PN ---
Progress Note, Physician History of Present Illness: Pt seen and examined at bedside. He remains confused. - Current Medication List Current Medications: Active Medications Acetaminophen (Tylenol -) 650 mg PO Q4H PRN PRN Reason: FEVER OR PAIN Last Admin: 12/03/17 22:30 Dose: 650 mg Albuterol/Ipratropium (Duoneb -) 1 amp NEB Q4H PRN PRN Reason: SHORTNESS OF BREATH Last Admin: 12/03/17 23:10 Dose: 1 amp Amlodipine Besylate (Norvasc -) 10 mg PO DAILY [facility] Last Admin: 12/05/17 09:30 Dose: 10 mg Aspirin (Asa -) 81 mg PO HS [facility] Last Admin: 12/04/17 21:43 Dose: 81 mg Atorvastatin Calcium (Lipitor -) 10 mg PO HS [facility] Last Admin: 12/04/17 21:43 Dose: 10 mg Carvedilol (Coreg -) 25 mg PO BID [facility] Last Admin: 12/05/17 09:29 Dose: 25 mg Docusate Sodium (Colace -) 100 mg PO DAILY [facility] Last Admin: 12/05/17 09:30 Dose: 100 mg Duloxetine HCl (Cymbalta -) 20 mg PO BID [facility] Last Admin: 12/05/17 09:30 Dose: 20 mg Heparin Sodium (Porcine) (Heparin -) 5,000 unit SQ TID [facility] Last Admin: 12/05/17 06:38 Dose: 5,000 unit Hydralazine HCl (Apresoline -) 25 mg PO BID [facility] Last Admin: 12/05/17 09:29 Dose: 25 mg CEFTRIAXONE IN IS-OSM DEXTROSE (Ceftriaxone 2 Gm-D5w Bag) 2 gm in 50 mls @ 100 mls/hr IVPB DAILY [facility] Last Admin: 12/05/17 09:30 Dose: 100 mls/hr Insulin Aspart (Novolog Vial Sliding Scale -) 1 vial SQ ACHS [facility] PRN Reason: Protocol Last Admin: 12/05/17 13:11 Dose: Not Given Insulin Detemir (Levemir Vial) 8 units SQ HS [facility] Last Admin: 12/04/17 21:44 Dose: 8 units Insulin Detemir (Levemir Vial) 25 units SQ AM [facility] Last Admin: 12/05/17 06:38 Dose: 25 units Mycophenolate Sodium (Mycophenolic Acid) 360 mg PO BID [facility] Last Admin: 12/05/17 09:29 Dose: 360 mg Prednisone (Deltasone -) 5 mg PO DAILY [facility] Last Admin: 12/05/17 09:30 Dose: 5 mg Senna (Senna -) 1 tab PO [facility] Last Admin: 12/04/17 21:43 Dose: 1 tab Tacrolimus (Prograf) 1 mg PO BID [facility] Last Admin: 12/05/17 09:30 Dose: 1 mg Tamsulosin HCl (Flomax -) 0.4 mg PO [facility] Last Admin: 12/04/17 21:48 Dose: 0.4 mg - Objective Vital Signs: Vital Signs Temperature 97.5 F L 12/05/17 08:49 Pulse Rate 81 12/05/17 08:49 Respiratory Rate 20 12/05/17 08:49 Blood Pressure 135/44 12/05/17 08:49 O2 Sat by Pulse Oximetry (%) 96 12/05/17 09:00 Constitutional: Yes: Calm Eyes: Yes: Conjunctiva Clear HENT: Yes: Atraumatic Neck: Yes: Supple Cardiovascular: Yes: S1, S2 Respiratory: Yes: Rhonchi Gastrointestinal: Yes: Soft Genitourinary: Yes: WNL, Other (graft is soft and non tender) Musculoskeletal: Yes: Muscle Weakness Edema: No Neurological: Yes: Confusion Labs: CBC, BMP 12/05/17 07:50 12/05/17 07:50 INR, PTT INR 0.98 (0.82-1.09) 11/29/17 07:30 Problem List - Problems (1) Dehydration Code(s): E86.0 - DEHYDRATION (2) DM2 (diabetes mellitus, type 2) Code(s): E11.9 - TYPE 2 DIABETES MELLITUS WITHOUT COMPLICATIONS Qualifiers: Diabetes mellitus exterminator termite insulin use: with exterminator termite use (3) Hyperglycemia Code(s): R73.9 - HYPERGLYCEMIA, UNSPECIFIED (4) H/O kidney transplant Code(s): Z94.0 - KIDNEY TRANSPLANT STATUS Assessment/Plan Current Medications Generic Name Dose Route Start Last Admin Trade Name Freq PRN Reason Stop Dose Admin Acetaminophen 650 mg 11/28/17 23:36 12/03/17 22:30 Tylenol - PO 650 mg Q4H PRN Administration FEVER OR PAIN Albuterol/Ipratropium 1 amp 12/01/17 22:52 12/03/17 23:10 Duoneb - NEB 1 amp Q4H PRN Administration SHORTNESS OF BREATH Amlodipine Besylate 10 mg 11/29/17 10:00 12/05/17 09:30 Norvasc - PO 10 mg DAILY [facility] Administration Aspirin 81 mg 11/29/17 22:00 12/04/17 21:43 Asa - PO 81 mg HS [facility] Administration Atorvastatin Calcium 10 mg 11/29/17 22:00 12/04/17 21:43 Lipitor - PO 10 mg HS [facility] Administration Carvedilol 25 mg 11/29/17 10:00 12/05/17 09:29 Coreg - PO 25 mg BID [facility] Administration Docusate Sodium 100 mg 11/29/17 10:00 12/05/17 09:30 Colace - PO 100 mg DAILY [facility] Administration Duloxetine HCl 20 mg 11/29/17 10:00 12/05/17 09:30 Cymbalta - PO 20 mg BID [facility] Administration Heparin Sodium (Porcine) 5,000 unit 11/29/17 06:00 12/05/17 06:38 Heparin - SQ 5,000 unit TID [facility] Administration Hydralazine HCl 25 mg 11/29/17 10:00 12/05/17 09:29 Apresoline - PO 25 mg BID [facility] Administration CEFTRIAXONE IN IS-OSM DEXTROSE 2 gm in 50 mls @ 100 mls/hr 12/04/17 11:45 09:30 Ceftriaxone 2 Gm-D5w Bag IVPB 100 mls/hr DAILY [facility] Administration Insulin Aspart 1 vial 11/30/17 07:00 12/05/17 13:11 Novolog Vial Sliding Scale - SQ Not Given [facility] Protocol Insulin Detemir 8 units 12/04/17 22:00 12/04/17 21:44 Levemir Vial SQ 8 units HS [facility] Administration Insulin Detemir 25 units 12/05/17 07:00 12/05/17 06:38 Levemir Vial SQ 25 units AM [facility] Administration Mycophenolate Sodium 360 mg 11/29/17 10:00 12/05/17 09:29 Mycophenolic Acid PO 360 mg BID [facility] Administration Prednisone 5 mg 11/29/17 10:00 12/05/17 09:30 Deltasone - PO 5 mg DAILY [facility] Administration Senna 1 tab 11/29/17 22:00 12/04/17 21:43 Senna - PO 1 tab HS [facility] Administration Tacrolimus 1 mg 11/29/17 22:00 12/05/17 09:30 Prograf PO 1 mg BID [facility] Administration Tamsulosin HCl 0.4 mg 11/29/17 22:00 12/04/17 21:48 Flomax - PO 0.4 mg HS [facility] Administration Laboratory Tests 12/03/17 07:00 Tacrolimus Pending Impression 1. CKD 2. kidney transplant 3. DM 4. hx of syncope 5. HTN 6. hyperlipidemia 7. dehydration 8. bacteremia 9. CHUCK Plan - creatinine is improved today - follw tacrolimus level - elevated resistive index on ultrasound - CHUCK is improving - monitor blood sugar
[2017-12-05 14:31] VITALS: BP 121/58; PULSE 80; TEMP 97.9
--- NOTE | 2017-12-05 15:28 | DS ---
Physical Exam: SUBJECTIVE: Patient seen and examined. asymptomatic. denies CP, SOB, fever, chills, N/v/C/D OBJECTIVE: Vital Signs Period Temp Pulse Resp BP Sys/Mendoza Pulse Ox Last 24 Hr 97.5 F-98.4 F 76-82 20-22 100-138/44-60 96-96 PHYSICAL EXAM GENERAL: The patient is awake, alert, and fully oriented, in no acute distress. HEAD: Normal with no signs of trauma. EYES: PERRL, extraocular movements intact, sclera anicteric, conjunctiva clear. ENT: Ears normal, nares patent, oropharynx clear without exudates, moist mucous membranes. NECK: Trachea midline, full range of motion, supple. LUNGS: Breath sounds equal, clear to auscultation bilaterally, no wheezes, no crackles, no accessory muscle use. HEART: Regular rate and rhythm, S1, S2 without murmur, rub or gallop. ABDOMEN: Soft, nontender, nondistended, normoactive bowel sounds, no guarding, no rebound, no hepatosplenomegaly, no masses. EXTREMITIES: 2+ pulses, warm, well-perfused, no edema. NEUROLOGICAL: Cranial nerves II through XII grossly intact. Normal speech, gait not observed. PSYCH: Normal mood, normal affect. SKIN: Warm, dry, normal turgor, no rashes or lesions noted. LABS Laboratory Results - last 24 hr 12/03/17 12/04/17 12/04/17 07:00 17:23 17:40 WBC RBC Hgb Hct MCV MCH MCHC RDW Plt Count MPV Sodium Potassium Chloride Carbon Dioxide Anion Gap BUN Creatinine POC Glucometer 414 Random Glucose 347 H* D Calcium Ur Random Sodium Ur Random Potassium Ur Random Chloride Urine Creatinine Tacrolimus 8.4 12/04/17 12/04/17 12/04/17 21:36 21:44 22:56 WBC RBC Hgb Hct MCV MCH MCHC RDW Plt Count MPV Sodium 134 L Potassium 4.3 Chloride 102 Carbon Dioxide 21 Anion Gap 11 BUN 56 H Creatinine 2.1 H POC Glucometer 421 491 Random Glucose 436 H* D Calcium 7.8 L Ur Random Sodium Ur Random Potassium Ur Random Chloride Urine Creatinine Tacrolimus 12/04/17 12/04/17 12/05/17 Unknown Unknown 05:43 WBC RBC Hgb Hct MCV MCH MCHC RDW Plt Count MPV Sodium Potassium Chloride Carbon Dioxide Anion Gap BUN Creatinine POC Glucometer 131 Random Glucose Calcium Ur Random Sodium Cancelled Ur Random Potassium Cancelled Ur Random Chloride Cancelled Urine Creatinine Cancelled Tacrolimus 12/05/17 12/05/17 12/05/17 07:50 07:50 11:20 WBC 9.5 RBC 3.70 L Hgb 10.8 L Hct 33.2 L MCV 89.6 MCH 29.2 MCHC 32.6 RDW 15.5 Plt Count 162 MPV 8.6 Sodium 141 Potassium 4.0 Chloride 110 H Carbon Dioxide 23 Anion Gap 8 BUN 53 H Creatinine 1.5 H D POC Glucometer 219 Random Glucose 88 D Calcium 7.9 L Ur Random Sodium Ur Random Potassium Ur Random Chloride Urine Creatinine Tacrolimus HOSPITAL COURSE: Date of Admission:12/01/17 Date of Discharge: 12/05/17 Admitting Diagnosis: Hyperglycemia, Proteus UTI and Bacteremia Pre hospital course 77 yo man w/ pmh of HTN, DM2, CAD, SD (s/p stents/CABG), HLD, ESRD (on immunosuppressants, kidney transplant 2008), who presents with elevated blood glucose and AMS from home, brought in by family. Per family, Pt BG levels in 500s on finger stick. Pt has been compliant with home regimen of humalog and levemir. In addition, pt has been increasingly confused according to family. Pt endorses increased urinary frequency, but denies dysuria, hematuria or pyruria. Pt denies any fever/chills, BABCOCK/lightheadness, cough, SOB, CP, rashes, diarrhea or new neuro symptoms. Pt w/ history of multiple UTIs and was recently admitted with LLQ abscess in 10/07. Pt is s/p renal transplant in 2008 and is on chronic immunosuppression. Subsequent hospital course medicine observation. was admitted and sugars improved. however course became complicated when pt became confused and started hallucinating. Determined pt had Proteus UTI and bacteremia. started on Ceftriaxone and pt improve. Levemir adjusted and improved. Underwent MBS study and found to need a chopped diet with nectar thickened liquid. pt unable to walk well with PT and determined he would benefit from [facility]. d/c to [facility] on keflex x10 days. Minutes to complete discharge: 40 Discharge Summary Reason For Visit: ACUTE KIDNEY INJURY Current Active Problems CHUCK (acute kidney injury) (Acute) DM2 (diabetes mellitus, type 2) (Acute) Dehydration (Acute) Dysphagia (Acute) Fall (Acute) Hyperglycemia (Acute) Hypoglycemia (Acute) Leukocytosis (Acute) Proteus septicemia (Acute) UTI (urinary tract infection) (Acute) H/O kidney transplant (Chronic) HTN (hypertension) (Chronic) Hx of CABG (Chronic) Immunocompromised patient (Chronic) Kidney transplant recipient (Chronic) Condition: Improved - Instructions Diet, Activity, Other Instructions: You were treated for elevated blood glucose. You developed a UTI and blood stream infection while you were here which was now cleared. You are on antibiotics. You should complete the course. You will need 10 more days of antibiotics Your home medications were adjusted. Please refer to medication list. were confused last evening, so you stayed overnight in the hospital for further monitoring. Head CT was negative for acute changes. Your mentation is stable, so you are ready for discharge home. Please followed a diabetic chopped diet with nectar thickened liquids. Alternate solids with liquids to complete each meal. Continue swallowing therapy to improve laryngeal function. Follow-ups: - with your Primary Care Doctor (Dr. Villela). Bring your log of blood sugar values when you see Dr. Villela. Call Dr. Villela if you notice a blood sugar value of <70, >400, or persistently >200. - with your Dike Supervisor (Dr. Perez) to check prograf level. Please return to the hospital immediately if you experience persistent or increased abdominal pain, chest pain, or for any medical emergency. Referrals: Gt Villela MD [Primary Care Provider] - 12/01/17 Tiesha Perez MD [Staff Physician] - Disposition: RETIREMENT FACILITY - Home Medications Comprehensive Discharge Medication List: Ambulatory Orders Amlodipine Besylate [Norvasc -] 10 mg PO DAILY 05/17/17 Aspirin [Jena Chewable Aspirin] 81 mg PO HS 05/17/17 Atorvastatin Ca [Lipitor] 10 mg PO HS 05/17/17 Carvedilol [Coreg -] 25 mg PO BID 05/17/17 Docusate Sodium [Colace -] 100 mg PO DAILY 05/17/17 Duloxetine HCl [Cymbalta] 20 mg PO BID 05/17/17 Hydralazine HCl [Apresoline -] 25 mg PO BID 05/17/17 Mycophenolate Sodium [Myfortic] 360 mg PO BID 05/17/17 Prednisone [Deltasone -] 5 mg PO DAILY 05/17/17 Tamsulosin HCl [Flomax] 0.4 mg PO HS 05/17/17 Acetaminophen [Tylenol .Regular Strength -] 650 mg PO Q4H PRN tablet 11/29/17 Tacrolimus 1 mg PO BID 11/29/17 Insulin Sliding Scale [Novolog Vial Sliding Scale -] 1 vial SQ ACHS units 11/30 Insulin (Levemir) [Levemir Vial] 8 units SQ HS ml 12/05/17 Insulin (Levemir) [Levemir Vial] 25 units SQ AM #0 ml 12/05/17 This patient is new to me today: Yes Date on this admission: 12/05/17 Emergency Visit: No Critical Care patient: No - Discharge Referral Referred to [facility] No
--- NOTE | 2017-12-05 15:44 | PN ---
Progress Note, Physician History of Present Illness: Awake, alert in bed no complaints Temps down afebrile WBC WNL Azotemia improved Blood, urine c/s Proteus sp. Repeat BC no growth - Current Medication List Current Medications: Active Medications Acetaminophen (Tylenol -) 650 mg PO Q4H PRN PRN Reason: FEVER OR PAIN Last Admin: 12/03/17 22:30 Dose: 650 mg Albuterol/Ipratropium (Duoneb -) 1 amp NEB Q4H PRN PRN Reason: SHORTNESS OF BREATH Last Admin: 12/03/17 23:10 Dose: 1 amp Amlodipine Besylate (Norvasc -) 10 mg PO DAILY [facility] Last Admin: 12/05/17 09:30 Dose: 10 mg Aspirin (Asa -) 81 mg PO HS [facility] Last Admin: 12/04/17 21:43 Dose: 81 mg Atorvastatin Calcium (Lipitor -) 10 mg PO HS [facility] Last Admin: 12/04/17 21:43 Dose: 10 mg Carvedilol (Coreg -) 25 mg PO BID [facility] Last Admin: 12/05/17 09:29 Dose: 25 mg Docusate Sodium (Colace -) 100 mg PO DAILY [facility] Last Admin: 12/05/17 09:30 Dose: 100 mg Duloxetine HCl (Cymbalta -) 20 mg PO BID [facility] Last Admin: 12/05/17 09:30 Dose: 20 mg Heparin Sodium (Porcine) (Heparin -) 5,000 unit SQ TID [facility] Last Admin: 12/05/17 14:35 Dose: 5,000 unit Hydralazine HCl (Apresoline -) 25 mg PO BID [facility] Last Admin: 12/05/17 09:29 Dose: 25 mg CEFTRIAXONE IN IS-OSM DEXTROSE (Ceftriaxone 2 Gm-D5w Bag) 2 gm in 50 mls @ 100 mls/hr IVPB DAILY [facility] Last Admin: 12/05/17 09:30 Dose: 100 mls/hr Insulin Aspart (Novolog Vial Sliding Scale -) 1 vial SQ ACHS [facility] PRN Reason: Protocol Last Admin: 12/05/17 13:11 Dose: Not Given Insulin Detemir (Levemir Vial) 8 units SQ HS [facility] Last Admin: 12/04/17 21:44 Dose: 8 units Insulin Detemir (Levemir Vial) 25 units SQ AM [facility] Last Admin: 12/05/17 06:38 Dose: 25 units Mycophenolate Sodium (Mycophenolic Acid) 360 mg PO BID [facility] Last Admin: 12/05/17 09:29 Dose: 360 mg Prednisone (Deltasone -) 5 mg PO DAILY [facility] Last Admin: 12/05/17 09:30 Dose: 5 mg Senna (Senna -) 1 tab PO HS [facility] Last Admin: 12/04/17 21:43 Dose: 1 tab Tacrolimus (Prograf) 1 mg PO BID [facility] Last Admin: 12/05/17 09:30 Dose: 1 mg Tamsulosin HCl (Flomax -) 0.4 mg PO HS [facility] Last Admin: 12/04/17 21:48 Dose: 0.4 mg - Objective Vital Signs: Vital Signs Temperature 97.9 F 12/05/17 14:30 Pulse Rate 80 12/05/17 14:30 Respiratory Rate 20 12/05/17 08:49 Blood Pressure 121/58 12/05/17 14:30 O2 Sat by Pulse Oximetry (%) 96 12/05/17 09:00 Constitutional: Yes: No Distress Eyes: Yes: Conjunctiva Clear Cardiovascular: Yes: Regular Rate and Rhythm, S1, S2 Respiratory: Yes: Rhonchi Gastrointestinal: Yes: Normal Bowel Sounds, Soft. No: Tenderness Edema: No Labs: CBC, BMP 12/05/17 07:50 12/05/17 07:50 INR, PTT INR 0.98 (0.82-1.09) 11/29/17 07:30 Assessment/Plan UTI/ Sepsis secondary to UTI Proteus S/P renal transplant Azotemia Substitute keflex 500mg po q6h x 10d
[2017-12-05] MEDS ORDERED: CEPHALEXIN MONOHYDRATE 500 MG CAPSULE (UD) PO SCH (18:00)
--- NOTE | 2017-12-06 10:53 | EKG ---
Test Reason : Blood Pressure : / mmHG Vent. Rate : 094 BPM Atrial Rate : 094 BPM P-R Int : 152 ms QRS Dur : 140 ms QT Int : 368 ms P-R-T Axes : 018 -55 070 degrees QTc Int : 460 ms NORMAL SINUS RHYTHM RIGHT BUNDLE BRANCH BLOCK LEFT ANTERIOR FASCICULAR BLOCK BIFASCICULAR BLOCK MODERATE VOLTAGE CRITERIA FOR LVH, MAY BE NORMAL VARIANT ABNORMAL ECG WHEN COMPARED WITH ECG OF 28-NOV-2017 17:48, NO SIGNIFICANT CHANGE WAS FOUND Confirmed by MD Milton, Kostas ([id number]) on 12/06/2017 10:52:36 AM Referred By: Confirmed By:Kostas Rose MD
== END 2017-12-05 17:01 | DRG 637 ==
LOC: JER 17:25 → JERBED 22:46 → INTOOBSV 22:46 → UNDOADMOB 22:46 → JERBED 11-30 15:39 → J6S 11-30 21:21 → OBSVTOIN 12-01 17:04
PROVIDERS: ADMIT Internal Medicine; ATTEND Internal Medicine
DX: E11.65 Type 2 diabetes mellitus with hyperglycemia (principal); G93.41 Metabolic encephalopathy; A41.9 Sepsis, unspecified organism; N17.9 Acute kidney failure, unspecified; N39.0 Urinary tract infection, site not specified; E87.1 Hypo-osmolality and hyponatremia; E87.2 Acidosis; Z94.0 Kidney transplant status; E86.0 Dehydration; I12.9 Hypertensive chronic kidney disease with stage 1 through stage 4 chronic kidney disease, or unspecified chronic kidney disease; E11.22 Type 2 diabetes mellitus with diabetic chronic kidney disease; E78.5 Hyperlipidemia, unspecified; I25.10 Atherosclerotic heart disease of native coronary artery without angina pectoris; Z98.61 Coronary angioplasty status; Z95.1 Presence of aortocoronary bypass graft; B96.4 Proteus (mirabilis) (morganii) as the cause of diseases classified elsewhere; D72.829 Elevated white blood cell count, unspecified; R13.10 Dysphagia, unspecified; N18.3 Chronic kidney disease, stage 3 (moderate); E83.42 Hypomagnesemia; E83.39 Other disorders of phosphorus metabolism; N40.1 Benign prostatic hyperplasia with lower urinary tract symptoms; R33.9 Retention of urine, unspecified
CPT/HCPCS: 36415; 70450-TC; 71045-TC; 74230-TC; 76776-TC; 80048; 80053; 80197; 81003; 81015; 82009; 82570; 82803; 82947; 82962; 83605; 83735; 83930; 83935; 84100; 84300; 85025; 85027; 85610; 85730; 86850; 86900; 86901; 87040; 87086; 87186; 92611-GN; 93005; 93010; 94640; 97116-GP; 97161-GP; 99285-25; G0378; J1644

== ENCOUNTER 2018-01-17 21:44 | Inpatient (IN) | payer OTHER ==
[2018-01-17 22:05] LABS: BASO % 0.8 % (0-2.0); EOS % 3.4 % (0-4.5); HEMATOCRIT 38.5 % (35.4-49); HEMOGLOBIN 12.5 GM/dL (11.7-16.9); LYMPH % 20.6 % (8-40); MCHC 32.4 g/dl (32.0-35.9); MEAN CELL VOLUME 89.5 fl (80-96); MEAN PLT VOLUME 8.4 fl (7.5-11.1); MONO % 10.7 % (3.8-10.2); NEUT % 64.5 % (42.8-82.8); PLATELET COUNT 218 K/MM3 (134-434); RDW 15.5 % (11.9-15.9); WHITE BLOOD COUNT 9.8 K/mm3 (4.0-10.0)
[2018-01-17 22:21] LABS: INR 0.96 (0.82-1.09); PROTHROMBIN TIME (PATIENT) 10.9 SEC (9.98-11.88)
[2018-01-17 22:33] LABS: ALBUMIN 3.8 g/dl (3.4-5.0); ANION GAP 7 (8-16); BLOOD UREA NITROGEN 41 mg/dL (7-18); CALCIUM 8.7 mg/dL (8.5-10.1); CHLORIDE 102 mmol/L (98-107); CO2 27 mmol/L (21-32); CREATININE 1.3 mg/dL (0.7-1.3); GLUCOSE,RANDOM 155 mg/dL (74-106); POTASSIUM 4.3 mmol/L (3.5-5.1); SGOT/AST 9 U/L (15-37); SGPT/ALT 16 U/L (12-78); SODIUM 136 mmol/L (136-145)
[2018-01-17 22:37] LABS: ALK PHOS 68 U/L (45-117); BILIRUBIN,TOTAL 0.4 mg/dL (0.2-1.0)
--- NOTE | 2018-01-17 22:38 | PDOC ---
History of Present Illness <Ailin Onofre - Last Filed: 01/18/18 00:26> - History of Present Illness Initial Comments: 01/17/18 22:39 Patient is a 77 M with PMHx of HTN, DM2, CAD, [place] (s/p stents/CABG), HLD, ESRD ( on immunosuppressants, kidney transplant 2008), who was sent by Dr. Villela for admission s/p fall for possible rib cage fracture. Patient states that he slipped in the shower, witnessed fall. Denies loc. Patient is currently complaining of posterior right rib cage pain. Allergies: denies Social Hx: denies PCP: Dr. Marin <Patricia Whitlock - Last Filed: 01/18/18 00:52> - General Chief Complaint: Injury Stated Complaint: FALL Time Seen by Provider: 01/17/18 21:49 Past History - Past Medical History Anemia: No Asthma: No Cancer: No Cardiac Disorders: Yes CVA: No COPD: No CHF: Yes Dementia: No Diabetes: Yes (iddm) Dialysis: Yes (stopped 2008) GI Disorders: No Disorders: No HTN: Yes Hypercholesterolemia: Yes Liver Disease: No Seizures: No Thyroid Disease: No - Surgical History Abdominal Surgery: No Appendectomy: No Cardiac Surgery: Yes (open heart surgery) Cholecystectomy: No Lung Surgery: No Neurologic Surgery: No Orthopedic Surgery: No - Immunization History Immunization Up to Date: Yes - Suicide/Smoking/Psychosocial Hx Smoking Status: No Smoking History: Never smoked Have you smoked in the past 12 months: No Number of Cigarettes Smoked Daily: 0 Information on smoking cessation initiated: No Hx Alcohol Use: No Drug/Substance Use Hx: No Substance Use Type: None Hx Substance Use Treatment: No <Ailin Onofre - Last Filed: 01/18/18 00:26> <Patricia Whitlock - Last Filed: 01/18/18 00:52> - Past Medical History Allergies/Adverse Reactions: Allergies Allergy/AdvReac Type Severity Reaction Status Date / Time No Known Drug Allergies Allergy Verified 01/17/18 21:57 Home Medications: Ambulatory Orders Amlodipine Besylate [Norvasc -] 10 mg PO DAILY 05/17/17 Aspirin [Jena Chewable Aspirin] 81 mg PO HS 05/17/17 Atorvastatin Ca [Lipitor] 10 mg PO HS 05/17/17 Carvedilol [Coreg -] 25 mg PO BID 05/17/17 Docusate Sodium [Colace -] 100 mg PO DAILY 05/17/17 Duloxetine HCl [Cymbalta] 20 mg PO BID 05/17/17 Mycophenolate Sodium [Myfortic] 360 mg PO BID 05/17/17 Tamsulosin HCl [Flomax] 0.4 mg PO HS 05/17/17 hydrALAZINE HCL [Apresoline -] 25 mg PO BID 05/17/17 predniSONE [Deltasone -] 5 mg PO DAILY 05/17/17 Acetaminophen [Tylenol .Regular Strength -] 650 mg PO Q4H PRN tablet 11/29/17 Tacrolimus 1 mg PO BID 11/29/17 Insulin Sliding Scale [Novolog Vial Sliding Scale -] 1 vial SQ ACHS units 11/30 Cephalexin Monohydrate [Keflex -] 500 mg PO Q6H #60 capsule 12/05/17 Insulin (Levemir) [Levemir Vial] 8 units SQ HS ml 12/05/17 Insulin (Levemir) [Levemir Vial] 25 units SQ AM #0 ml 12/05/17 Review of Systems - Review of Systems Comments:: 01/17/18 22:39 CONSTITUTIONAL: Absent: fever, no chills, no fatigue EYES: Absent: visual changes ENT: Absent: ear pain, no sore throat CARDIOVASCULAR: Absent: chest pain, no palpitations RESPIRATORY: Absent: cough, no SOB GI: Absent: abdominal pain, no nausea, no vomiting, no constipation, no diarrhea GENITOURINARY: Absent: dysuria, no frequency, no hematuria MUSCULOSKELETAL: Present: posterior rib cage pain. Absent: no arthralgia, no myalgia SKIN: Absent: rash NEURO: Absent: headache <Patricia Whitlock - Last Filed: 01/18/18 00:52> *Physical Exam - Vital Signs Last Vital Signs Temp Pulse Resp BP Pulse Ox 97.6 F 85 20 176/73 94 L 01/17/18 21:57 01/17/18 21:57 01/17/18 21:57 01/17/18 21:57 01/17/18 21:57 <Ailin Onofre - Last Filed: 01/18/18 00:26> - Vital Signs Last Vital Signs Temp Pulse Resp BP Pulse Ox 97.6 F 85 20 176/73 94 L 01/17/18 21:57 01/17/18 21:57 01/17/18 21:57 01/17/18 21:57 01/17/18 21:57 - Physical Exam Comments: 01/17/18 22:42 GENERAL: Well-appearing, well-nourished. No apparent distress. HEENT: Normocephalic, atraumatic. PERRL, EOM intact. CARDIOVASCULAR: Normal S1, S2. Regular rate and rhythm. Hear murmur. PULMONARY: Clear to auscultation bilaterally. BACK: Posterior rib cage tenderness to palpation. ABDOMEN: Soft, non-distended, non-tender. EXTREMITIES: Right arm AV fistula. Full ROM in all four extremities. No gross deformities. SKIN: Warm, dry. No rash NEUROLOGICAL: No focal neurological deficits. <Patricia Whitlock - Last Filed: 01/18/18 00:52> ED Treatment Course - LABORATORY CBC & Chemistry Diagram: 01/17/18 21:59 01/17/18 21:59 - ADDITIONAL ORDERS Additional order review: Laboratory Results 01/17/18 21:59 PT with INR 10.90 INR 0.96 01/17/18 21:59 RBC 4.30 MCV 89.5 MCHC 32.4 RDW 15.5 MPV 8.4 Neutrophils % 64.5 Lymphocytes % 20.6 D Monocytes % 10.7 H Eosinophils % 3.4 Basophils % 0.8 - RADIOLOGY Radiology Studies Ordered: Category Date Time Status CERVICAL SPINE CT W/O CONTR [CT] Stat CT Scan 01/17/18 22:[address] WITHOUT CONTRAST [CT] Stat CT Scan 01/17/18 22:[address] WITHOUT CONTRAST [CT] Stat CT Scan 01/17/18 22:34 Ordered <Ailin Onofre - Last Filed: 01/18/18 00:26> - LABORATORY CBC & Chemistry Diagram: 01/17/18 21:59 01/17/18 21:59 - ADDITIONAL ORDERS Additional order review: Laboratory Results 01/17/18 21:59 PT with INR 10.90 INR 0.96 01/17/18 21:59 RBC 4.30 MCV 89.5 MCHC 32.4 RDW 15.5 MPV 8.4 Neutrophils % 64.5 Lymphocytes % 20.6 D Monocytes % 10.7 H Eosinophils % 3.4 Basophils % 0.8 - RADIOLOGY Radiograph Interpretation: 01/18/18 00:[address] Impression: Right 9th, 10th, and 11th rib fracture without pneumothorax or liver injury. Possible bibasilar aspiration. Reported by: Dayton Newby MD 01/17/2018 23:[address] Impression: No fracture Reported by: Arcadio Newby MD 01/17/2018 23:[address] Impression: No evidence of of acute pathology Reported by: Dayton Newby MD 01/17/2018 23:54 <Patricia Whitlock - Last Filed: 01/18/18 00:52> *DC/Admit/Observation/Transfer - Discharge Dispostion Admit: Yes <Ailin Onofre - Last Filed: 01/18/18 00:26> - Attestations Scribe Attestion: 01/17/18 22:45 Documentation prepared by Patricia Whitlock, acting as medical laboratory technician for Ailin Onofre MD. <Patricia Whitlock - Last Filed: 01/18/18 00:52> Diagnosis at time of Disposition: Kidney transplant recipient, Dehydration, Trauma, blunt, IDDM (insulin dependent diabetes mellitus) Multiple fractures of ribs of right side Qualifiers: Encounter type: initial encounter Fracture type: closed Qualified Code(s): S22.41XA - Multiple fractures of ribs, right side, initial encounter for closed fracture Fall Qualifiers: Encounter type: initial encounter Qualified Code(s): W19.XXXA - Unspecified fall, initial encounter
[2018-01-18] MEDS ORDERED: amLODIPine BESYLATE 5 MG TABLET (FP) PO ONE (00:24)
[2018-01-18] MEDS ORDERED: predniSONE 10 MG TABLET (UD) PO ONE (00:25)
[2018-01-18] MEDS ORDERED: ATORVASTATIN CA 10 MG TABLET (FP) PO ONE (00:30)
[2018-01-18] MEDS ORDERED: TAMSULOSIN HCL 0.4 MG CAP.ER.24H (FP) PO ONE (00:31)
[2018-01-18] MEDS ORDERED: ALBUTEROL SO4 0.083% IH SOL 2.5 MG/3 ML VIAL.NEB. NEB PRN (00:44)
[2018-01-18] MEDS ORDERED: amLODIPine BESYLATE 5 MG TABLET (FP) ONE (00:49)
[2018-01-18] MEDS ORDERED: predniSONE 10 MG TABLET (UD) ONE (00:49)
[2018-01-18] MEDS ORDERED: TAMSULOSIN HCL 0.4 MG CAP.ER.24H (FP) ONE (00:50)
[2018-01-18 03:02] VITALS: BMI 26.6
[2018-01-18] MEDS ORDERED: INSULIN (NOVOLOG) ASPART 100 UNITS/ML 10ML VIAL ONE ×2 (06:21→11:14)
[2018-01-18] MEDS: INSULIN SLIDING SCALE (NOVOLOG) 1 VIAL SQ SCH ×4 (06:24→22:06)
[2018-01-18] MEDS ORDERED: INSULIN DETEMIR 100 UNITS/ML MDV SQ SCH (07:00)
--- NOTE | 2018-01-18 09:12 | HP ---
Admitting History and Physical - Admission History of Present Illness: 77 M with PMHx of HTN, DM2, CAD, [place] (s/p stents/CABG), HLD, ESRD (on immunosuppressants, kidney transplant 2008), who was sent by Dr. Villela for admission s/p fall for possible rib cage fracture. Patient states that he slipped in the shower, witnessed fall. Denies loc. Patient is currently complaining of posterior right rib cage pain. - Past Medical History Cardiovascular: Yes: CAD (CABG), HTN, Other (PAD, heel osteo in 04/05) Renal/: Yes: Renal Failure, Renal Inusuff, Hemodialysis (in past prior to renal transplant 2008), Other (S/P Kidney tranplant 2008. 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) Endocrine: Yes: Diabetes Mellitus - Past Surgical History Past Surgical History: Yes: AV Fistula/Graft (right upper arm), CABG, Kidney Transplant (right 2008) - Smoking History Smoking history: Never smoked Have you smoked in the past 12 months: No Aproximately how many cigarettes per day: 0 - Alcohol/Substance Use Hx Alcohol Use: No - Social History ADL: Support Services History of Recent Travel: No Home Medications - Allergies Allergies/Adverse Reactions: Allergies Allergy/AdvReac Type Severity Reaction Status Date / Time No Known Drug Allergies Allergy Verified 01/17/18 21:57 - Home Medications Home Medications: Ambulatory Orders Amlodipine Besylate [Norvasc -] 10 mg PO DAILY 05/17/17 Aspirin [Jena Chewable Aspirin] 81 mg PO HS 05/17/17 Atorvastatin Ca [Lipitor] 10 mg PO HS 05/17/17 Carvedilol [Coreg -] 25 mg PO BID 05/17/17 Docusate Sodium [Colace -] 100 mg PO DAILY 05/17/17 Duloxetine HCl [Cymbalta] 20 mg PO BID 05/17/17 Mycophenolate Sodium [Myfortic] 360 mg PO BID 05/17/17 Tamsulosin HCl [Flomax] 0.4 mg PO HS 05/17/17 hydrALAZINE HCL [Apresoline -] 25 mg PO BID 05/17/17 predniSONE [Deltasone -] 5 mg PO DAILY 05/17/17 Acetaminophen [Tylenol .Regular Strength -] 650 mg PO Q4H PRN tablet 11/29/17 Tacrolimus 1 mg PO BID 11/29/17 Insulin Sliding Scale [Novolog Vial Sliding Scale -] 1 vial SQ ACHS units 11/30 Cephalexin Monohydrate [Keflex -] 500 mg PO Q6H #60 capsule 12/05/17 Insulin (Levemir) [Levemir Vial] 8 units SQ HS ml 12/05/17 Insulin (Levemir) [Levemir Vial] 25 units SQ AM #0 ml 12/05/17 Review of Systems - Review of Systems Cardiovascular: denies: Chest Pain, Edema Respiratory: reports: SOB on Exertion Gastrointestinal: denies: Abdominal Pain Genitourinary: reports: No Symptoms Musculoskeletal: reports: Back Pain Neurological: reports: No Symptoms Physical Examination Vital Signs: Vital Signs Temperature 98.3 F 01/18/18 06:00 Pulse Rate 80 01/18/18 06:00 Respiratory Rate 20 01/18/18 06:00 Blood Pressure 124/53 01/18/18 06:00 O2 Sat by Pulse Oximetry (%) 96 01/18/18 02:19 Cardiovascular: Yes: S1, S2 Respiratory: Yes: Rales (at the bases) Gastrointestinal: Yes: Normal Bowel Sounds, Soft. No: Tenderness Musculoskeletal: Yes: Other (tenderness on back) Edema: No Labs: CBC, BMP 01/17/18 21:59 01/17/18 21:59 Imaging - Results Cat Scan: Report Reviewed Problem List - Problems (1) PNA (pneumonia) Assessment/Plan: on ct scan afebrile iv abx id consult Code(s): J18.9 - PNEUMONIA, UNSPECIFIED ORGANISM (2) Fall Assessment/Plan: with rib fx pt Code(s): W19.XXXA - UNSPECIFIED FALL, INITIAL ENCOUNTER Qualifiers: Encounter type: initial encounter Qualified Code(s): W19.XXXA - Unspecified fall, initial encounter (3) Multiple fractures of ribs of right side Assessment/Plan: pain control monitor pulm consult Code(s): S22.41XA - MULTIPLE FRACTURES OF RIBS, RIGHT SIDE, INIT FOR CLOS FX Qualifiers: Encounter type: initial encounter Fracture type: closed Qualified Code(s) : S22.41XA - Multiple fractures of ribs, right side, initial encounter for closed fracture (4) DM2 (diabetes mellitus, type 2) Assessment/Plan: bgm endo Code(s): E11.9 - TYPE 2 DIABETES MELLITUS WITHOUT COMPLICATIONS Qualifiers: Diabetes mellitus exterminator termite insulin use: with half-way use (5) Hx of CABG Assessment/Plan: no cp on ct--possible as--echo cardio Code(s): Z95.1 - PRESENCE OF AORTOCORONARY BYPASS GRAFT
--- NOTE | 2018-01-18 10:33 | EKG ---
Test Reason : Blood Pressure : / mmHG Vent. Rate : 079 BPM Atrial Rate : 079 BPM P-R Int : 180 ms QRS Dur : 150 ms QT Int : 414 ms P-R-T Axes : 016 -53 021 degrees QTc Int : 474 ms NORMAL SINUS RHYTHM RIGHT BUNDLE BRANCH BLOCK LEFT ANTERIOR FASCICULAR BLOCK BIFASCICULAR BLOCK MODERATE VOLTAGE CRITERIA FOR LVH, MAY BE NORMAL VARIANT CANNOT RULE OUT SEPTAL INFARCT , AGE UNDETERMINED ABNORMAL ECG WHEN COMPARED WITH ECG OF 30-NOV-2017 19:34, T WAVE INVERSION NO LONGER EVIDENT IN LATERAL LEADS Confirmed by MONICA SILVA, ROMAIN ([id number]) on 01/18/2018 10:33:44 AM Referred By: Confirmed By:ROMAIN ANDERSON MD
[2018-01-18] MEDS ORDERED: PT OWN MED DRAWER 7, Y5N ONE (10:34)
[2018-01-18] MEDS: DULoxetine HCL 20 MG CAPSULE.DR (FP) PO SCH ×2 (10:37→22:05)
[2018-01-18] MEDS: MYCOPHENOLATE SODIUM 360 MG TABLET.DR PO SCH ×2 (10:37→22:38)
[2018-01-18] MEDS: hydrALAZINE HCL 25 MG TABLET (FP) PO SCH ×2 (10:37→22:05)
[2018-01-18] MEDS ORDERED: DOCUSATE SODIUM 100 MG CAPSULE (FP) PO PRN (11:45)
[2018-01-18] MEDS ORDERED: oxyCODONE HCL 5 MG TABLET PO PRN (11:45)
[2018-01-18] MEDS ORDERED: CEFTRIAXONE 1 G/50 ML PREMIX 50 ML IVPB SCH (12:30)
[2018-01-18] MEDS: ALBUTEROL SO4 2.5/IPRATROPIUM 0.5 INH SOL 3 ML VIAL.NEB. NEB SCH ×3 (12:58→21:45)
--- NOTE | 2018-01-18 16:16 | CON.CARD ---
Consult Consult Specialty:: Cardiology Reason for Consultation:: Aortic Valve abnormality - History of Present Illness Chief Complaint: Chest pain History of Present Illness: This is a 77 year old male with a PMH of HTN, DM2, CAD (history of past stents and a CABG), HLD, and ESRD. He is S/p a renal transplant in 2008. He presents now with a slip and fall in the shower with no LOC reported. An echocardiogram 01/18/18 Showed Normal LV size and function, with an EF of 67% . Moderatge LAE, mild to moderate TR, Mild aortic stenosis, with an CORNEL of 1.4 cm^2, peak gradient of 22 mmHg and a mean gradient of 12 mmHg. - Past Medical History Cardio/Vascular: Yes: CAD (CABG), HTN, Other (PAD, heel osteo in 04/05) Renal/: Yes: Renal Failure, Renal Inusuff, Hemodialysis (in past prior to renal transplant 2008), Other (S/P Kidney tranplant 2008. 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) Endocrine: Yes: Diabetes Mellitus - Past Surgical History Past Surgical History: Yes: AV Fistula/Graft (right upper arm), CABG, Kidney Transplant (right 2008) - Alcohol/Substance Use Hx Alcohol Use: No - Smoking History Smoking history: Never smoked Have you smoked in the past 12 months: No Aproximately how many cigarettes per day: 0 - Social History Usual Living Arrangement: Alone ADL: Support Services History of Recent Travel: No Home Medications - Allergies Allergies/Adverse Reactions: Allergies Allergy/AdvReac Type Severity Reaction Status Date / Time No Known Drug Allergies Allergy Verified 01/17/18 21:57 - Home Medications Home Medications: Ambulatory Orders Amlodipine Besylate [Norvasc -] 10 mg PO DAILY 05/17/17 Aspirin [Jena Chewable Aspirin] 81 mg PO HS 05/17/17 Atorvastatin Ca [Lipitor] 10 mg PO HS 05/17/17 Carvedilol [Coreg -] 25 mg PO BID 05/17/17 Docusate Sodium [Colace -] 100 mg PO DAILY 05/17/17 Duloxetine HCl [Cymbalta] 20 mg PO BID 05/17/17 Mycophenolate Sodium [Myfortic] 360 mg PO BID 05/17/17 Tamsulosin HCl [Flomax] 0.4 mg PO HS 05/17/17 hydrALAZINE HCL [Apresoline -] 25 mg PO BID 05/17/17 predniSONE [Deltasone -] 5 mg PO DAILY 05/17/17 Acetaminophen [Tylenol .Regular Strength -] 650 mg PO Q4H PRN tablet 11/29/17 Tacrolimus 1 mg PO BID 11/29/17 Insulin Sliding Scale [Novolog Vial Sliding Scale -] 1 vial SQ ACHS units 11/30 Cephalexin Monohydrate [Keflex -] 500 mg PO Q6H #60 capsule 12/05/17 Insulin (Levemir) [Levemir Vial] 8 units SQ HS ml 12/05/17 Insulin (Levemir) [Levemir Vial] 25 units SQ AM #0 ml 12/05/17 Review of Systems Findings/Remarks: As per HPI Vital Signs: Vital Signs Temperature 98.9 F 01/18/18 14:00 Pulse Rate 91 H 01/18/18 14:00 Respiratory Rate 20 01/18/18 14:00 Blood Pressure 137/94 01/18/18 14:00 O2 Sat by Pulse Oximetry (%) 96 01/18/18 02:19 Constitutional: Yes: No Distress HENT: Yes: WNL Neck: Yes: WNL Respiratory: Yes: CTA Bilaterally Gastrointestinal: Yes: Soft Cardiovascular: Yes: Regular Rate and Rhythm (NL S1S2, 1/6 YISSEL RUSB) JVD: No Extremities: Yes: WNL Edema: No - Other Data Labs, Other Data: CBC, BMP 01/17/18 21:59 01/17/18 21:59 INR, PTT INR 0.96 (0.82-1.09) 01/17/18 21:59 Troponin, BNP 01/17/18 22:00 Troponin I < 0.02 Troponin, BNP 01/17/18 22:00 Troponin I < 0.02 Assessment/Plan Echocardiogram findings: He has aortic stenosis, with an aortic valve area of 1.4 cm^2 and mildly elevated gradients. It is very unlikely that aortic stenosis to this degree contributed to his falling down. By history, this appeared to be a mechanical fall. It is unlikely to cause symptoms at this mild level. However, it should be followed as an outpatient closely to determine the rate of progression. Check orthostatic BP's. You can continue outpatient mediations including: Amlodipine Besylate [Norvasc -] 10 mg PO DAILY 05/17/17 Carvedilol [Coreg -] 25 mg PO BID 05/17/17 Tamsulosin HCl [Flomax] 0.4 mg PO HS 05/17/17 hydrALAZINE HCL [Apresoline -] 25 mg PO BID 05/17/17 Although this above regimen may become problematic if the progresses, no adjustments need to be made at this time. Please call us prn
--- NOTE | 2018-01-18 16:40 | PN ---
Progress Note (short form) - Note Progress Note: PULMONARY CONSULTATION DICTATED 01/18/28 IMP R SIDED RIB FXS 9-11 S/P MECHANICAL FALL ASHD S/P CABG,S/P STENTS HTN DM CKD S/P RENAL TRANSPLANT PLAN ANALGESICS INCENTIVE SPIROMETER O2 F/U CHEST X-RAYS DR PALOMO ' Problem List - Problems (1) Fall Code(s): W19.XXXA - UNSPECIFIED FALL, INITIAL ENCOUNTER Qualifiers: Encounter type: initial encounter Qualified Code(s): W19.XXXA - Unspecified fall, initial encounter (2) Kidney transplant recipient Code(s): Z94.0 - KIDNEY TRANSPLANT STATUS (3) Type 2 diabetes mellitus with diabetic polyneuropathy Code(s): E11.42 - TYPE 2 DIABETES MELLITUS WITH DIABETIC POLYNEUROPATHY Qualifiers: (4) H/O kidney transplant Code(s): Z94.0 - KIDNEY TRANSPLANT STATUS (5) HTN (hypertension) Code(s): I10 - ESSENTIAL (PRIMARY) HYPERTENSION Qualifiers: Hypertension type: unspecified Qualified Code(s): I10 - Essential (primary ) hypertension (6) Hx of CABG Code(s): Z95.1 - PRESENCE OF AORTOCORONARY BYPASS GRAFT (7) Immunocompromised patient Code(s): D84.9 - IMMUNODEFICIENCY, UNSPECIFIED (8) IDDM (insulin dependent diabetes mellitus) Code(s): E11.9 - TYPE 2 DIABETES MELLITUS WITHOUT COMPLICATIONS; Z79.4 - DOT COMPLIANCE COORDINATOR (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 OF INSULIN (9) Ribs, multiple fractures Code(s): S22.49XA - MULTIPLE FRACTURES OF RIBS, UNSP SIDE, INIT FOR CLOS FX
--- NOTE | 2018-01-18 20:04 | CONSULT ---
Consult Consult Specialty:: endocrine Referred by:: dr.annabi jackson Reason for Consultation:: diabetes mellitus sp kidney transplant - History of Present Illness Chief Complaint: fall rib pain History of Present Illness: 77 M with PMHx of HTN, DM2, CAD, [place] (s/p stents/CABG), HLD, ESRD (on immunosuppressants, kidney transplant 2008), admitted s/p fall for possible rib cage fracture. Patient states that he slipped in the shower, witnessed fall. Denies loc. Patient is currently complaining back pain difficulty breathing ,urti,sputum production,weakness lethargy - Past Medical History Cardio/Vascular: Yes: CAD (CABG), HTN, Other (PAD, heel osteo in 04/05) Renal/: Yes: Renal Failure, Renal Inusuff, Hemodialysis (in past prior to renal transplant 2008), Other (S/P Kidney tranplant 2008. 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) Endocrine: Yes: Diabetes Mellitus - Past Surgical History Past Surgical History: Yes: AV Fistula/Graft (right upper arm), CABG, Kidney Transplant (right 2008) - Alcohol/Substance Use Hx Alcohol Use: No - Smoking History Smoking history: Never smoked Have you smoked in the past 12 months: No Aproximately how many cigarettes per day: 0 - Social History Usual Living Arrangement: Alone ADL: Support Services History of Recent Travel: No Home Medications - Allergies Allergies/Adverse Reactions: Allergies Allergy/AdvReac Type Severity Reaction Status Date / Time No Known Drug Allergies Allergy Verified 01/17/18 21:57 - Home Medications Home Medications: Ambulatory Orders Amlodipine Besylate [Norvasc -] 10 mg PO DAILY 05/17/17 Aspirin [Jena Chewable Aspirin] 81 mg PO HS 05/17/17 Atorvastatin Ca [Lipitor] 10 mg PO HS 05/17/17 Carvedilol [Coreg -] 25 mg PO BID 05/17/17 Docusate Sodium [Colace -] 100 mg PO DAILY 05/17/17 Duloxetine HCl [Cymbalta] 20 mg PO BID 05/17/17 Mycophenolate Sodium [Myfortic] 360 mg PO BID 05/17/17 Tamsulosin HCl [Flomax] 0.4 mg PO HS 05/17/17 hydrALAZINE HCL [Apresoline -] 25 mg PO BID 05/17/17 predniSONE [Deltasone -] 5 mg PO DAILY 05/17/17 Acetaminophen [Tylenol .Regular Strength -] 650 mg PO Q4H PRN tablet 11/29/17 Tacrolimus 1 mg PO BID 11/29/17 Insulin Sliding Scale [Novolog Vial Sliding Scale -] 1 vial SQ ACHS units 11/30 Cephalexin Monohydrate [Keflex -] 500 mg PO Q6H #60 capsule 12/05/17 Insulin (Levemir) [Levemir Vial] 8 units SQ HS ml 12/05/17 Insulin (Levemir) [Levemir Vial] 25 units SQ AM #0 ml 12/05/17 Review of Systems - Review of Systems Constitutional: reports: Lethargy, Weakness Eyes: reports: No Symptoms HENT: reports: No Symptoms Neck: reports: No Symptoms Cardiovascular: reports: Shortness of Breath Respiratory: reports: Exercise Intolerance, SOB on Exertion Gastrointestinal: reports: Bloating Genitourinary: reports: No Symptoms Breasts: reports: No Symptoms Reported Musculoskeletal: reports: Decreased ROM, Muscle Cramps, Muscle Weakness Integumentary: reports: No Symptoms Neurological: reports: No Symptoms Endocrine: reports: Increased Hunger, Unexplained Weight Loss Physical Exam Vital Signs: Vital Signs Temperature 101.8 F H 01/18/18 19:17 Pulse Rate 87 01/18/18 19:17 Respiratory Rate 20 01/18/18 19:17 Blood Pressure 150/46 01/18/18 19:17 O2 Sat by Pulse Oximetry (%) 96 01/18/18 09:00 Constitutional: Yes: Anxious Eyes: Yes: EOM Intact HENT: Yes: Normocephalic Neck: Yes: Decreased ROM Cardiovascular: Yes: Tachycardia Respiratory: Yes: Accessory Muscle Use, Rhonchi, SOB, Tachypnea Gastrointestinal: Yes: Soft ...Rectal Exam: Yes: Deferred Breast(s): Yes: WNL Musculoskeletal: Yes: Back Pain, Joint Swelling, Muscle Pain, Muscle Weakness Extremities: Yes: WNL Edema: No Neurological: Yes: Alert, Oriented Problem List - Problems (1) Multiple fractures of ribs of right side Code(s): S22.41XA - MULTIPLE FRACTURES OF RIBS, RIGHT SIDE, INIT FOR CLOS FX Qualifiers: Encounter type: initial encounter Fracture type: closed Qualified Code(s) : S22.41XA - Multiple fractures of ribs, right side, initial encounter for closed fracture (2) PNA (pneumonia) Code(s): J18.9 - PNEUMONIA, UNSPECIFIED ORGANISM (3) Ribs, multiple fractures Code(s): S22.49XA - MULTIPLE FRACTURES OF RIBS, UNSP SIDE, INIT FOR CLOS FX (4) Trauma, blunt Code(s): T14.90XA - INJURY, UNSPECIFIED, INITIAL ENCOUNTER (5) IDDM (insulin dependent diabetes mellitus) Code(s): E11.9 - TYPE 2 DIABETES MELLITUS WITHOUT COMPLICATIONS; Z79.4 - BOAT TESTER (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 OF INSULIN (6) Kidney transplant recipient Code(s): Z94.0 - KIDNEY TRANSPLANT STATUS Assessment/Plan Current Active Problems Dehydration (Acute) Fall (Acute) Multiple fractures of ribs of right side (Acute) PNA (pneumonia) (Acute) Ribs, multiple fractures (Acute) Trauma, blunt (Acute) IDDM (insulin dependent diabetes mellitus) (Chronic) Kidney transplant recipient (Chronic) Type 2 diabetes mellitus with diabetic polyneuropathy (Chronic) Abnormal Lab Results 01/17/18 01/17/18 21:59 21:59 Monocytes % 10.7 H Anion Gap 7 L BUN 41 H D Random Glucose 155 H D AST 9 L Laboratory Results - last 24 hr 01/17/18 01/17/18 01/17/18 21:59 21:59 21:59 WBC 9.8 RBC 4.30 Hgb 12.5 D Hct 38.5 D MCV 89.5 MCH 29.0 MCHC 32.4 RDW 15.5 Plt Count 218 D MPV 8.4 Neutrophils % 64.5 Lymphocytes % 20.6 D Monocytes % 10.7 H Eosinophils % 3.4 Basophils % 0.8 PT with INR 10.90 INR 0.96 Sodium 136 Potassium 4.3 Chloride 102 Carbon Dioxide 27 Anion Gap 7 L BUN 41 H D Creatinine 1.3 Creat Clearance w eGFR 53.82 POC Glucometer Random Glucose 155 H D Calcium 8.7 Total Bilirubin 0.4 AST 9 L ALT 16 D Alkaline Phosphatase 68 Creatine Kinase Troponin I Total Protein 7.0 Albumin 3.8 Blood Type Antibody Screen 01/17/18 01/17/18 01/18/18 22:00 22:00 06:06 WBC RBC Hgb Hct MCV MCH MCHC RDW Plt Count MPV Neutrophils % Lymphocytes % Monocytes % Eosinophils % Basophils % PT with INR INR Sodium Potassium Chloride Carbon Dioxide Anion Gap BUN Creatinine Creat Clearance w eGFR POC Glucometer 269 Random Glucose Calcium Total Bilirubin AST ALT Alkaline Phosphatase Creatine Kinase 56 Troponin I < 0.02 Total Protein Albumin Blood Type O POSITIVE Antibody Screen Negative 01/18/18 01/18/18 12:02 17:09 WBC RBC Hgb Hct MCV MCH MCHC RDW Plt Count MPV Neutrophils % Lymphocytes % Monocytes % Eosinophils % Basophils % PT with INR INR Sodium Potassium Chloride Carbon Dioxide Anion Gap BUN Creatinine Creat Clearance w eGFR POC Glucometer 386 236 Random Glucose Calcium Total Bilirubin AST ALT Alkaline Phosphatase Creatine Kinase Troponin I Total Protein Albumin Blood Type Antibody Screen plan: bgm qid novolog insulin levemir 26 units am levemir 10 unit hs hold if sugar below 100mg./dl
[2018-01-18 20:05] LABS: HEMATOCRIT 34.8 % (35.4-49); HEMOGLOBIN 11.5 GM/dL (11.7-16.9); MCH 29.7 pg (25.7-33.7); MEAN CELL VOLUME 89.9 fl (80-96); MEAN PLT VOLUME 8.8 fl (7.5-11.1); PLATELET COUNT 225 K/MM3 (134-434); RBC 3.87 M/mm3 (4.00-5.60); RDW 15.4 % (11.9-15.9); WHITE BLOOD COUNT 12.8 K/mm3 (4.0-10.0)
[2018-01-18 20:26] LABS: INR 0.99 (0.82-1.09); PROTHROMBIN TIME (PATIENT) 11.2 SEC (9.98-11.88)
[2018-01-18 20:28] LABS: ACTIVATED PTT 27.7 SECONDS (26.9-34.4)
[2018-01-18 20:55] LABS: ALBUMIN 3.4 g/dl (3.4-5.0); ALK PHOS 71 U/L (45-117); ANION GAP 7 (8-16); BILIRUBIN,TOTAL 0.3 mg/dL (0.2-1.0); BLOOD UREA NITROGEN 41 mg/dL (7-18); CALCIUM 8.3 mg/dL (8.5-10.1); CHLORIDE 100 mmol/L (98-107); CO2 28 mmol/L (21-32); CREATININE 1.3 mg/dL (0.7-1.3); GLUCOSE,RANDOM 171 mg/dL (74-106); POTASSIUM 4.3 mmol/L (3.5-5.1); SGOT/AST 11 U/L (15-37); SGPT/ALT 14 U/L (12-78); SODIUM 135 mmol/L (136-145); TOT PROT 6.6 g/dl (6.4-8.2)
[2018-01-18] MEDS: ACETAMINOPHEN 325 MG TABLET (FP) PO PRN (22:05)
[2018-01-18] MEDS: INSULIN DETEMIR 100 UNITS/ML MDV SQ SCH (22:05)
[2018-01-19 02:18] LABS: URINE APPEARANCE CLEAR; URINE BILIRUBIN NEGATIVE (NEGATIVE); URINE BLOOD NEGATIVE (NEGATIVE); URINE COLOR LTYELLOW; URINE GLUCOSE (UA) 2+ (NEGATIVE); URINE KETONE NEGATIVE (NEGATIVE); URINE LEUK ESTERASE NEGATIVE (NEGATIVE); URINE NITRITE NEGATIVE (NEGATIVE); URINE PROTEIN NEGATIVE (NEGATIVE); URINE UROBILINOGEN NEGATIVE mg/dL (0.2-1.0)
[2018-01-19] MEDS: INSULIN DETEMIR 100 UNITS/ML MDV SQ SCH ×2 (06:31→22:01)
[2018-01-19] MEDS: INSULIN SLIDING SCALE (NOVOLOG) 1 VIAL SQ SCH ×4 (06:32→22:02)
[2018-01-19] MEDS: ALBUTEROL SO4 2.5/IPRATROPIUM 0.5 INH SOL 3 ML VIAL.NEB. NEB SCH ×4 (07:25→20:20)
[2018-01-19 07:53] LABS: BASO % 0.7 % (0-2.0); EOS % 1.3 % (0-4.5); HEMATOCRIT 37.5 % (35.4-49); HEMOGLOBIN 12.5 GM/dL (11.7-16.9); LYMPH % 17.2 % (8-40); MCH 29.8 pg (25.7-33.7); MCHC 33.3 g/dl (32.0-35.9); MEAN CELL VOLUME 89.6 fl (80-96); MEAN PLT VOLUME 8.6 fl (7.5-11.1); NEUT % 70.8 % (42.8-82.8); PLATELET COUNT 219 K/MM3 (134-434); RBC 4.19 M/mm3 (4.00-5.60); RDW 15.4 % (11.9-15.9); WHITE BLOOD COUNT 12.6 K/mm3 (4.0-10.0)
--- NOTE | 2018-01-19 09:54 | PN ---
Progress Note (short form) - Note Progress Note: ID Patient once again 101-102 feels warm as well Alert weak but no couph. SOB Laboratory Tests 01/18/18 01/18/18 01/18/18 19:10 19:10 23:20 WBC 12.8 H D Hgb 11.5 L Hct 34.8 L Plt Count 225 Creat Clearance w eGFR 53.82 Ur Leukocyte Esterase Negative Assessment S/P fall with multiple rib fractures and fever & atalectasis Certainly set up for pneumonia in this frail elderly man with comorbities Plan Dose of Vancomycin for Cr Cl Continue Ceftriaxone 2 grs BLood cultures though got dose of antibiotic already Discussed with Pulmonary re fever and atalectasis Erika SILVA Problem List - Problems (1) Fever Code(s): R50.9 - FEVER, UNSPECIFIED (2) Multiple fractures of ribs of right side Code(s): S22.41XA - MULTIPLE FRACTURES OF RIBS, RIGHT SIDE, INIT FOR CLOS FX Qualifiers: Encounter type: initial encounter Fracture type: closed Qualified Code(s) : S22.41XA - Multiple fractures of ribs, right side, initial encounter for closed fracture (3) MDRO (multiple drug resistant organisms) resistance Code(s): Z16.35 - RESISTANCE TO MULTIPLE ANTIMICROBIAL DRUGS
--- NOTE | 2018-01-19 10:09 | CONS ---
PHYSICAL MEDICINE REHABILITATION CONSULTATION DATE OF ADMISSION: 01/18/2018 DATE OF CONSULTATION: 01/19/2018 HISTORY OF PRESENT ILLNESS: The patient is a 77-year-old man with past medical history of diabetes, coronary artery disease, status post coronary artery bypass graft and stenting, end-stage renal disease and hemodialysis, kidney transplant, who was admitted after a fall. Patient underwent CT of the head on January 17, which showed no acute intracranial pathology. CT of the neck of the cervical spine also showed no fracture and diffuse degenerative spondylosis. CT of the chest revealed right 9th, 10th, and 11th rib fractures, but no pneumothorax. Patient underwent blood work and has slight elevation in his WBCs on January 18 at 12.8, and they remained high on January 19 at 12.6, hemoglobin stable at 12.5 done this morning, and platelet count 219. Chemistries done yesterday showed a low sodium of 135, elevated BUN of 41, creatinine 1.3, albumin 3.4. Patient himself is confused and not able to give much of a history. Most of the history was taken from the medical record. Patient apparently had a fall when he slipped in the shower. His witnessed the fall. No loss of consciousness. Sustained trauma to the right rib cage. He also complains of some discomfort in his right thigh. Patient was seen by Physical Therapy and was able to ambulate 60 feet with a rolling walker close contact guard. Patient is now seen in rehabilitation evaluation. Of note, he is on immunosuppressants due to his history of kidney transplant, and apparently he is not on hemodialysis. REVIEW OF PAST MEDICAL AND SURGICAL HISTORY: End-stage renal disease, status post kidney transplant, coronary artery disease, [place], coronary artery bypass graft stenting, hypertension, diabetes. SOCIAL HISTORY: He lives with his . A [id number]. Premorbidly, he states he was independent and ambulatory without assistive device. Per the admitting physical therapy, he used a rolling walker at home. REVIEW OF SYSTEMS: He denies any dizziness, any lightheadedness, any headache, any blurry vision, double vision, any nausea, vomiting, difficulty swallowing, difficulty chewing, any chest pain in the upper left. He does have right-sided rib cage discomfort. No numbness/tingling in the upper or lower extremities. He complains of pain also in his right thigh, but no numbness/tingling. No fever or chills. No bowel/ bladder change per the patient. Again, he is slightly confused. PHYSICAL EXAMINATION: General: On examination, patient is an elderly man, seen lying in bed. He is in no acute distress, but obviously confused. He thought he was at home HEENT: He is normocephalic and atraumatic. His extraocular muscles appear intact. Neck: Supple without any palpable spasm. Extremities: Without any pitting edema or calf tenderness. He is a little tender in his right anterior thigh. Skin: Without any ecchymosis noted or open wounds. Neuromuscular: As above, he is oriented to person, but not place or time. Cranial nerves 2-12 appear grossly intact. He has fairly good range and strength in his upper and lower extremities with the exception of his right hip girdle which is only 1-2 out of 5. He has normal sensation to pinprick and light touch, except for distally in the lower extremities slightly diminished to pinprick. He has no gross arthritic change. OVERALL IMPRESSION: 1. Deficits mobility, activities of daily living, multifactorial. 2. Status post fall. 3. Multiple rib fractures, right 9th, 10th, and 11th ribs. 4. Right thigh discomfort, possible strain of the hip flexor or quadriceps. 5. Underlying end-stage renal disease status post kidney transplant, no longer on dialysis. 6. Diabetes, possible underlying diabetic peripheral neuropathy. 7. Decreased mental status, possibly underlying dementia. 8. Elevated risk for deep venous thrombosis due to immobility. PLANS AND SUGGESTIONS: 1. Continue physical therapy at the bedside to include bed mobility transfers, gait training, strengthening, reconditioning. 2. Out of bed to chair. 3. Safety fall precautions. 4. DVT prophylaxis per primary care doctor, Dr. Eid, and nephrology, Dr. Villela. 5. Skin precautions. 6. Probably home with home care if he is able to be managed by his . Given his mental status, he may be at further risk of falls, going to short-term rehab, but consider short-term rehab if he is unable to be managed at home. 7. Monitor bowels for constipation. Thank you very much for this referral. MARGARET BANKS M.D. [id number]
[2018-01-19] MEDS ORDERED: ACETAMINOPHEN 325 MG TABLET (FP) ONE (10:29)
[2018-01-19] MEDS ORDERED: PT OWN MED DRAWER 7, Y5N ONE ×2 (10:30→17:05)
[2018-01-19] MEDS: hydrALAZINE HCL 25 MG TABLET (FP) PO SCH ×2 (10:46→22:01)
[2018-01-19] MEDS: CEFTRIAXONE IN IS-OSM DEXTROSE 2 GM/50 ML BAG IVPB SCH (10:46)
--- NOTE | 2018-01-19 10:46 | CONS ---
DATE OF CONSULTATION: DATE OF DICTATION: 01/19/2018 HISTORY OF PRESENT ILLNESS: This is one of multiple admissions for this 77-year-old Malay male brought now following a fall in which he sustained chest wall injuries including multiple rib fractures. He apparently slipped in the shower in what his said was a witnessed fall with no loss of consciousness. He came complaining of posterior right rib cage pain. I am asked to see him because after admission, he developed fever overnight to 101 for which he was put on ceftriaxone. Again, this morning, his temperature is 101 to 102. The patient denies other than chest pain. He has no shortness of breath or cough, abdominal pain, or urinary complaints. PAST MEDICAL HISTORY: Is significant for hypertension, diabetes, status post kidney transplant in 2008 on immunosuppressive therapy and end-stage renal disease, coronary artery bypass graft surgery, and a history of osteomyelitis of the distal phalanx. MEDICATIONS: Include amlodipine, aspirin, atorvastatin, carvedilol, mycophenolate, tamsulosin, hydralazine, tacrolimus, and insulin. ALLERGIES: None known. SOCIAL HISTORY: Never smoked and no history of alcohol abuse. FAMILY HISTORY: Positive for diabetes and coronary artery disease. REVIEW OF SYSTEMS: Respiratory: Chest wall pain. No shortness of breath, hemoptysis, pleuritic. Cardiac: No palpitations, syncope. History of murmur. Gastrointestinal: No abdominal pain, nausea, vomiting, diarrhea. Genitourinary: No dysuria, hematuria. PHYSICAL EXAMINATION: General: He was a chronically ill-appearing elderly male in no acute distress. Vital signs: The temperature was 101, pulse 100, blood pressure 146/50, respirations 20. Neck: Supple. Lungs: With bilateral rhonchi. Heart: S1, S2, regular rhythm, without audible murmur. Abdomen: Soft, nontender, without hepatosplenomegaly. Extremities: Without clubbing, cyanosis, or edema. LABORATORY DATA: The white count is 12.8, hemoglobin 11.5, platelets 225. BUN 41, creatinine 1.3. Liver enzymes within normal limits. Urinalysis negative for leukocyte esterase. CT scan of the chest shows basilar atelectasis with acute fractures minimally displaced involving the right 9th through 11th ribs with no evidence of pneumomediastinum or hematoma. Trace right pleural effusion is noted. ASSESSMENT: This is a 77-year-old male with multiple comorbidities including history of a renal transplant and insulin-dependent diabetes mellitus, history of osteomyelitis of the distal phalanx with previous MRSA (methicillin-resistant staphylococcus aureus) wound culture 2017, who presents following a witnessed fall with multiple rib fractures and now fever. While he does not appear acutely ill, given his comorbidities, he is at high risk for development of pneumonia in the setting of underlying atelectasis and multiple rib fractures. PLAN: He was already placed on ceftriaxone per his primary medical doctor. He still has fever today, which needs to be further evaluated with a set of blood cultures. I will continue him on ceftriaxone, but increase the dose to 2 g daily, and based on his previous history of MRSA, add a 1-time dose of 1.25 g of vancomycin pending blood culture results. Case was discussed with Dr. Barajas regarding patients CT scan findings and onset of fever. JAMES SANDOVAL M.D. [id number]
[2018-01-19] MEDS: ACETAMINOPHEN 325 MG TABLET (FP) PO PRN (10:47)
[2018-01-19] MEDS: DULoxetine HCL 20 MG CAPSULE.DR (FP) PO SCH ×2 (10:47→22:01)
[2018-01-19] MEDS: MYCOPHENOLATE SODIUM 360 MG TABLET.DR PO SCH ×2 (10:48→22:05)
[2018-01-19] MEDS ORDERED: VANCOMYCIN 1,250 MG in DEXTROSE 5%-WATER - 250 ML IVPB ONE (11:00)
--- NOTE | 2018-01-19 12:12 | PN ---
Progress Note (short form) - Note Progress Note: Resting in NAD on NC O2. Some minimal dry cough. Febrile overnight. CXR: Poor inspiratory effort / some increase in basilar atelectasis Right > Left Intake & Output 01/16/18 01/17/18 01/18/18 01/19/18 23:59 23:59 23:59 23:59 Intake Total 450 Balance 450 Weight 170 lb 160 lb 2 oz 164 lb 1 oz Last Vital Signs Temp Pulse Resp BP Pulse Ox 99.7 F H 98 H 20 146/50 96 01/19/18 06:00 01/19/18 06:00 01/19/18 06:00 01/19/18 06:00 01/18/18 21:00 Active Medications Acetaminophen (Tylenol -) 650 mg PO Q6H PRN PRN Reason: fever Last Admin: 01/19/18 10:47 Dose: 650 mg Albuterol Sulfate (Ventolin 0.083% Nebulizer Soln -) 1 amp NEB Q8H PRN PRN Reason: SHORT OF BREATH/WHEEZING Albuterol/Ipratropium (Duoneb -) 1 amp NEB RQID [facility] Last Admin: 01/19/18 11:02 Dose: 1 amp Docusate Sodium (Colace -) 100 mg PO BID PRN PRN Reason: CONSTIPATION Last Admin: 01/19/18 10:48 Dose: 100 mg Duloxetine HCl (Cymbalta -) 20 mg PO BID [facility] Last Admin: 01/19/18 10:47 Dose: 20 mg Hydralazine HCl (Apresoline -) 25 mg PO BID [facility] Last Admin: 01/19/18 10:46 Dose: 25 mg Vancomycin HCl 1,250 mg/ (Dextrose) 250 mls @ 166.667 mls/hr IVPB ONCE ONE PRN Reason: Protocol Stop: 01/19/18 12:29 CEFTRIAXONE IN IS-OSM DEXTROSE (Ceftriaxone 2 Gm-D5w Bag) 2 gm in 50 mls @ 100 mls/hr IVPB DAILY [facility] Last Admin: 01/19/18 10:46 Dose: 100 mls/hr Insulin Aspart (Novolog Vial Sliding Scale -) 1 vial SQ ACHS HUGO PRN Reason: Protocol Last Admin: 01/19/18 11:14 Dose: Not Given Insulin Detemir (Levemir Vial) 26 units SQ AM [facility] Last Admin: 01/19/18 06:31 Dose: 26 units Insulin Detemir (Levemir Vial) 10 units SQ HS [facility] Last Admin: 01/18/18 22:05 Dose: 10 units Mycophenolate Sodium (Mycophenolic Acid) 360 mg PO BID [facility] Last Admin: 01/19/18 10:48 Dose: 360 mg Oxycodone HCl (Roxicodone -) 5 mg PO Q4H PRN PRN Reason: PAIN LEVEL 6-10 Last Admin: 01/18/18 15:07 Dose: 5 mg ' Constitutional: Yes: No Distress HENT: Yes: WNL Neck: Yes: WNL Respiratory: Yes: basilar rhonchi Gastrointestinal: Yes: Soft Cardiovascular: Yes: Regular Rate and Rhythm (NL S1S2, 1/6 YISSEL RUSB) JVD: No Extremities: Yes: WNL Edema: No Laboratory Results - last 24 hr 01/18/18 01/18/18 01/18/18 12:02 17:09 19:10 WBC RBC Hgb Hct MCV MCH MCHC RDW Plt Count MPV Neutrophils % Lymphocytes % Monocytes % Eosinophils % Basophils % PT with INR INR PTT (Actin FS) Sodium 135 L Potassium 4.3 Chloride 100 Carbon Dioxide 28 Anion Gap 7 L BUN 41 H Creatinine 1.3 Creat Clearance w eGFR 53.82 POC Glucometer 386 236 Random Glucose 171 H Calcium 8.3 L Total Bilirubin 0.3 D AST 11 L D ALT 14 Alkaline Phosphatase 71 Total Protein 6.6 Albumin 3.4 Urine Color Urine Appearance Urine pH Ur Specific [place] Urine Protein Urine Glucose (UA) Urine Ketones Urine Blood Urine Nitrite Urine Bilirubin Urine Urobilinogen Ur Leukocyte Esterase 01/18/18 01/18/18 01/18/18 19:10 19:10 20:41 WBC 12.8 H D RBC 3.87 L Hgb 11.5 L Hct 34.8 L MCV 89.9 MCH 29.7 MCHC 33.0 RDW 15.4 Plt Count 225 MPV 8.8 Neutrophils % Lymphocytes % Monocytes % Eosinophils % Basophils % PT with INR 11.20 INR 0.99 PTT (Actin FS) 27.7 Sodium Potassium Chloride Carbon Dioxide Anion Gap BUN Creatinine Creat Clearance w eGFR POC Glucometer 150 Random Glucose Calcium Total Bilirubin AST ALT Alkaline Phosphatase Total Protein Albumin Urine Color Urine Appearance Urine pH Ur Specific [place] Urine Protein Urine Glucose (UA) Urine Ketones Urine Blood Urine Nitrite Urine Bilirubin Urine Urobilinogen Ur Leukocyte Esterase 01/18/18 01/19/18 01/19/18 23:20 06:00 06:30 WBC 12.6 H RBC 4.19 Hgb 12.5 Hct 37.5 MCV 89.6 MCH 29.8 MCHC 33.3 RDW 15.4 Plt Count 219 MPV 8.6 Neutrophils % 70.8 Lymphocytes % 17.2 Monocytes % 10.0 Eosinophils % 1.3 Basophils % 0.7 PT with INR INR PTT (Actin FS) Sodium Potassium Chloride Carbon Dioxide Anion Gap BUN Creatinine Creat Clearance w eGFR POC Glucometer 157 Random Glucose Calcium Total Bilirubin AST ALT Alkaline Phosphatase Total Protein Albumin Urine Color Ltyellow Urine Appearance Clear Urine pH 5.0 Ur Specific [place] 1.015 Urine Protein Negative Urine Glucose (UA) 2+ H Urine Ketones Negative Urine Blood Negative Urine Nitrite Negative Urine Bilirubin Negative Urine Urobilinogen Negative Ur Leukocyte Esterase Negative 01/19/18 11:13 WBC RBC Hgb Hct MCV MCH MCHC RDW Plt Count MPV Neutrophils % Lymphocytes % Monocytes % Eosinophils % Basophils % PT with INR INR PTT (Actin FS) Sodium Potassium Chloride Carbon Dioxide Anion Gap BUN Creatinine Creat Clearance w eGFR POC Glucometer 164 Random Glucose Calcium Total Bilirubin AST ALT Alkaline Phosphatase Total Protein Albumin Urine Color Urine Appearance Urine pH Ur Specific [place] Urine Protein Urine Glucose (UA) Urine Ketones Urine Blood Urine Nitrite Urine Bilirubin Urine Urobilinogen Ur Leukocyte Esterase Problem List - Problems (1) Fall Code(s): W19.XXXA - UNSPECIFIED FALL, INITIAL ENCOUNTER Qualifiers: Encounter type: initial encounter Qualified Code(s): W19.XXXA - Unspecified fall, initial encounter (2) Kidney transplant recipient Code(s): Z94.0 - KIDNEY TRANSPLANT STATUS (3) Type 2 diabetes mellitus with diabetic polyneuropathy Code(s): E11.42 - TYPE 2 DIABETES MELLITUS WITH DIABETIC POLYNEUROPATHY Qualifiers: (4) H/O kidney transplant Code(s): Z94.0 - KIDNEY TRANSPLANT STATUS (5) HTN (hypertension) Code(s): I10 - ESSENTIAL (PRIMARY) HYPERTENSION Qualifiers: Hypertension type: unspecified Qualified Code(s): I10 - Essential (primary ) hypertension (6) Hx of CABG Code(s): Z95.1 - PRESENCE OF AORTOCORONARY BYPASS GRAFT (7) Immunocompromised patient Code(s): D84.9 - IMMUNODEFICIENCY, UNSPECIFIED (8) IDDM (insulin dependent diabetes mellitus) Code(s): E11.9 - TYPE 2 DIABETES MELLITUS WITHOUT COMPLICATIONS; Z79.4 - LOG BUNCHER (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 OF INSULIN (9) Ribs, multiple fractures Code(s): S22.49XA - MULTIPLE FRACTURES OF RIBS, UNSP SIDE, INIT FOR CLOS FX IMP:RIGHT SIDED RIB FXS 9-11 S/P MECHANICAL FALL ATELECTASIS / PNA ASHD S/P CABG,S/P STENTS HTN DM CKD S/P RENAL TRANSPLANT PLAN ANALGESICS INCENTIVE SPIROMETER O2 ABX PER ID BD TX Dr Melgar
--- NOTE | 2018-01-19 13:26 | CONS ---
DATE OF CONSULTATION: 01/18/2018 PULMONARY CONSULTATION REFERRING PHYSICIAN: Gt Villela M.D. HISTORY OF PRESENT ILLNESS: The patient is a 77-year-old white male with a past medical history of hypertension, end-stage renal disease status post transplant in 2008, currently on immunosuppressants, ASHD status post stents, status post CABG, diabetes type 2, admitted to [facility] status post fall, sustaining rib fractures. The patient apparently fell at home, having slipped in the shower. His witnessed the fall. There was no loss of consciousness. He fell onto his right side. He presented to the emergency room for the above. In the ER, he had a chest CT performed which revealed multiple rib fractures, mildly displaced, and a small right pleural effusion. The patient denies any shortness of breath, denies any cough or hemoptysis. Denies any fevers or chills. He is a nonsmoker. There is no history of occupational exposure to chemicals or fumes. PAST MEDICAL HISTORY: Again, this includes ASHD status post stents, status post CABG, end-stage renal disease status post kidney transplant in 2008, currently on immunosuppressant therapy, type 2 diabetes mellitus, hypertension. SOCIAL HISTORY: Nonsmoker. No occupational exposures. MEDICATION: Medications prior to admission included Norvasc, aspirin, Lipitor, Colace, Cymbalta, Myfortic, Flomax, Apresoline, prednisone, tacrolimus, acetaminophen, Keflex and Levemir. REVIEW OF SYSTEMS: No orthopnea right-sided chest discomfort. No fever, no chills, no cough, no chest pain, no hemoptysis no abdominal pain. PHYSICAL EXAMINATION: General: The patient is a well-developed, well-nourished male, awake, alert, currently in no acute distress. Vital signs: He is currently afebrile. Blood pressure 137/94, respiratory rate 20, O2 saturation is 96% on 2 L. HEENT: Head is normocephalic, atraumatic. Neck: Supple. Heart: Regular. S1, S2. Chest: Poor inspiratory effort. A few crackles at the bases. Abdomen: Soft. Bowel sounds positive. Extremities: No cyanosis, edema. LABORATORY: WBC is 9.8, hemoglobin 12.5, hematocrit 38.5 with a platelet count of 218,000. INR is 0.96. BUN 41, creatinine 1.3. Chest CT reveals a minimally displaced fracture of the right 9th, 10th and 11th ribs. No evidence of hematoma, no pneumomediastinum, no pneumothorax, a small right pleural effusion, subsegmental atelectasis at both bases. IMPRESSION: 1. Status post mechanical fall with subsequent multiple rib fractures of 9, 10, and 11 on the right, mildly displaced. 2. End-stage renal disease status post renal transplant, currently on immunosuppressive therapy. 3. Atherosclerotic heart disease status post coronary artery bypass graft, status post stents. 4. Diabetes mellitus. 5. Hypertension. PLAN: Analgesics, incentive spirometry, followup chest x-rays, supplemental O2. Continue current immunosuppressive medications. LEVI PALOMO M.D. [id number]
--- NOTE | 2018-01-19 16:29 | CONSULT ---
Consult Consult Specialty:: Nephrology Reason for Consultation:: kidney transplant - History of Present Illness Chief Complaint: s/p fall History of Present Illness: Pt is a 77 year old male with pmhx of CKD, kidney transplant, HTN, CAD, and hyperlipidemia who presents to the ER s/p fall. He slipped in the shower. I was called to evaluate him as he has a kidney transplant. He denies fevers or chills. He denies dysuria or hematuria. He complains of right ribcage pain. He denies nausea or vomiting. He has not followed in the office since his last hospitalization. - History Source History Provided By: Patient, Medical Record - Past Medical History Cardio/Vascular: Yes: CAD (CABG), HTN, Other (PAD, heel osteo in 04/05) Renal/: Yes: Renal Failure, Renal Inusuff, Hemodialysis (in past prior to renal transplant 2008), Other (S/P Kidney tranplant 2008. 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) Endocrine: Yes: Diabetes Mellitus - Past Surgical History Past Surgical History: Yes: AV Fistula/Graft (right upper arm), CABG, Kidney Transplant (right 2008) - Alcohol/Substance Use Hx Alcohol Use: No - Smoking History Smoking history: Never smoked Have you smoked in the past 12 months: No Aproximately how many cigarettes per day: 0 - Social History Usual Living Arrangement: Alone ADL: Support Services History of Recent Travel: No Home Medications - Allergies Allergies/Adverse Reactions: Allergies Allergy/AdvReac Type Severity Reaction Status Date / Time No Known Drug Allergies Allergy Verified 01/17/18 21:57 - Home Medications Home Medications: Ambulatory Orders Amlodipine Besylate [Norvasc -] 10 mg PO DAILY 05/17/17 Aspirin [Jena Chewable Aspirin] 81 mg PO HS 05/17/17 Atorvastatin Ca [Lipitor] 10 mg PO HS 05/17/17 Carvedilol [Coreg -] 25 mg PO BID 05/17/17 Docusate Sodium [Colace -] 100 mg PO DAILY 05/17/17 Duloxetine HCl [Cymbalta] 20 mg PO BID 05/17/17 Mycophenolate Sodium [Myfortic] 360 mg PO BID 05/17/17 Tamsulosin HCl [Flomax] 0.4 mg PO HS 05/17/17 hydrALAZINE HCL [Apresoline -] 25 mg PO BID 05/17/17 predniSONE [Deltasone -] 5 mg PO DAILY 05/17/17 Acetaminophen [Tylenol .Regular Strength -] 650 mg PO Q4H PRN tablet 11/29/17 Tacrolimus 1 mg PO BID 11/29/17 Insulin Sliding Scale [Novolog Vial Sliding Scale -] 1 vial SQ ACHS units 11/30 Cephalexin Monohydrate [Keflex -] 500 mg PO Q6H #60 capsule 12/05/17 Insulin (Levemir) [Levemir Vial] 8 units SQ HS ml 12/05/17 Insulin (Levemir) [Levemir Vial] 25 units SQ AM #0 ml 12/05/17 Family Disease History - Family Disease History Family History: Unable to Obtain Review of Systems - Review of Systems Constitutional: reports: Malaise Eyes: reports: No Symptoms HENT: reports: No Symptoms Neck: reports: No Symptoms Cardiovascular: reports: No Symptoms Respiratory: reports: No Symptoms Gastrointestinal: reports: No Symptoms Genitourinary: reports: No Symptoms Musculoskeletal: reports: Other (right rib pain) Hematology/Lymphatic: reports: No Symptoms Psychiatric: reports: No Symptoms Physical Exam Vital Signs: Vital Signs Temperature 99.6 F 01/19/18 14:00 Pulse Rate 96 H 01/19/18 14:00 Respiratory Rate 20 01/19/18 14:00 Blood Pressure 116/35 01/19/18 14:00 O2 Sat by Pulse Oximetry (%) 96 01/18/18 21:00 Constitutional: Yes: Calm Eyes: Yes: Conjunctiva Clear HENT: Yes: Atraumatic Neck: Yes: Supple Cardiovascular: Yes: S1, S2 Respiratory: Yes: CTA Bilaterally Gastrointestinal: Yes: Normal Bowel Sounds, Soft Renal/: Yes: WNL, Other (graft soft and non tender) Musculoskeletal: Yes: WNL Edema: No Neurological: Yes: Oriented Labs: CBC, BMP 01/19/18 06:00 01/18/18 19:10 Imaging - Results Chest X-ray: Report Reviewed Problem List - Problems (1) Fall Code(s): W19.XXXA - UNSPECIFIED FALL, INITIAL ENCOUNTER Qualifiers: Encounter type: initial encounter Qualified Code(s): W19.XXXA - Unspecified fall, initial encounter (2) Fever Code(s): R50.9 - FEVER, UNSPECIFIED (3) IDDM (insulin dependent diabetes mellitus) Code(s): E11.9 - TYPE 2 DIABETES MELLITUS WITHOUT COMPLICATIONS; Z79.4 - TOBACCO SAMPLER (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 OF INSULIN (4) Kidney transplant recipient Code(s): Z94.0 - KIDNEY TRANSPLANT STATUS Assessment/Plan Current Medications Generic Name Dose Route Start Last Admin Trade Name Freq PRN Reason Stop Dose Admin Acetaminophen 650 mg 01/18/18 19:07 01/19/18 10:47 Tylenol - PO 650 mg Q6H PRN Administration fever Albuterol Sulfate 1 amp 01/18/18 00:44 Ventolin 0.083% Nebulizer Soln - NEB Q8H PRN SHORT OF BREATH/WHEEZING Albuterol/Ipratropium 1 amp 01/18/18 12:00 01/19/18 15:23 Duoneb - NEB 1 amp RQID [facility] Administration Docusate Sodium 100 mg 01/18/18 11:45 01/19/18 10:48 Colace - PO 100 mg BID PRN Administration CONSTIPATION Duloxetine HCl 20 mg 01/18/18 10:00 01/19/18 10:47 Cymbalta - PO 20 mg BID [facility] Administration Hydralazine HCl 25 mg 01/18/18 10:00 01/19/18 10:46 Apresoline - PO 25 mg BID [facility] Administration CEFTRIAXONE IN IS-OSM DEXTROSE 2 gm in 50 mls @ 100 mls/hr 01/19/18 10:00 12/08 10:46 Ceftriaxone 2 Gm-D5w Bag IVPB 100 mls/hr DAILY [facility] Administration Insulin Aspart 1 vial 01/18/18 07:00 01/19/18 11:14 Novolog Vial Sliding Scale - SQ Not Given ACHS [facility] Protocol Insulin Detemir 26 units 01/18/18 20:11 01/19/18 06:31 Levemir Vial SQ 26 units AM [facility] Administration Insulin Detemir 10 units 01/18/18 22:00 01/18/18 22:05 Levemir Vial SQ 10 units HS [facility] Administration Mycophenolate Sodium 360 mg 01/18/18 10:00 01/19/18 10:48 Mycophenolic Acid PO 360 mg BID [facility] Administration Oxycodone HCl 5 mg 01/18/18 11:45 01/18/18 15:07 Roxicodone - PO 5 mg Q4H PRN Administration PAIN LEVEL 6-10 Impression 1. CKD 2. kidney transplant 3. DM 4. hx of syncope 5. HTN 6. hyperlipidemia 7. dehydration 8. s/p fall Plan - monitor renal function - start tacrolimus 1 mg q 12 hrs - start prednisone 5 mg daily - called daughter and reviewed transplant meds - pain control - monitor blood sugar
[2018-01-19] MEDS: predniSONE 5 MG TABLET (UD) PO SCH (17:11)
[2018-01-19] MEDS: TACROLIMUS ANHYDROUS 1 MG CAPSULE PO SCH ×2 (17:29→22:05)
--- NOTE | 2018-01-19 22:32 | PN ---
Progress Note, Physician Chief Complaint: Fall, Multiple rib fx, Pneumonia History of Present Illness: NAD, in bed, pleasantly confused - Current Medication List Current Medications: Active Medications Acetaminophen (Tylenol -) 650 mg PO Q6H PRN PRN Reason: fever Last Admin: 01/19/18 10:47 Dose: 650 mg Albuterol Sulfate (Ventolin 0.083% Nebulizer Soln -) 1 amp NEB Q8H PRN PRN Reason: SHORT OF BREATH/WHEEZING Albuterol/Ipratropium (Duoneb -) 1 amp NEB RQID [facility] Last Admin: 01/19/18 20:20 Dose: Not Given Docusate Sodium (Colace -) 100 mg PO BID PRN PRN Reason: CONSTIPATION Last Admin: 01/19/18 10:48 Dose: 100 mg Duloxetine HCl (Cymbalta -) 20 mg PO BID [facility] Last Admin: 01/19/18 22:01 Dose: 20 mg Hydralazine HCl (Apresoline -) 25 mg PO BID [facility] Last Admin: 01/19/18 22:01 Dose: 25 mg CEFTRIAXONE IN IS-OSM DEXTROSE (Ceftriaxone 2 Gm-D5w Bag) 2 gm in 50 mls @ 100 mls/hr IVPB DAILY [facility] Last Admin: 01/19/18 10:46 Dose: 100 mls/hr Insulin Aspart (Novolog Vial Sliding Scale -) 1 vial SQ ACHS [facility] PRN Reason: Protocol Last Admin: 01/19/18 22:02 Dose: 3 units Insulin Detemir (Levemir Vial) 26 units SQ AM [facility] Last Admin: 01/19/18 06:31 Dose: 26 units Insulin Detemir (Levemir Vial) 10 units SQ HS [facility] Last Admin: 01/19/18 22:01 Dose: 10 units Mycophenolate Sodium (Mycophenolic Acid) 360 mg PO BID [facility] Last Admin: 01/19/18 22:05 Dose: 360 mg Oxycodone HCl (Roxicodone -) 5 mg PO Q4H PRN PRN Reason: PAIN LEVEL 6-10 Last Admin: 01/18/18 15:07 Dose: 5 mg Prednisone (Deltasone -) 5 mg PO DAILY [facility] Last Admin: 01/19/18 17:11 Dose: 5 mg Tacrolimus (Prograf) 1 mg PO BID [facility] Last Admin: 01/19/18 22:05 Dose: 1 mg - Objective Vital Signs: Vital Signs Temperature 99.6 F 01/19/18 14:00 Pulse Rate 96 H 01/19/18 14:00 Respiratory Rate 20 01/19/18 14:00 Blood Pressure 116/35 01/19/18 14:00 O2 Sat by Pulse Oximetry (%) 96 01/19/18 20:36 Constitutional: Yes: Well Nourished, No Distress, Calm Cardiovascular: Yes: Regular Rate and Rhythm Respiratory: Yes: Regular Gastrointestinal: Yes: Normal Bowel Sounds, Soft Neurological: Yes: Alert, Pre-Existing Deficit Psychiatric: Yes: Alert Labs: CBC, BMP 01/19/18 06:00 01/18/18 19:10 INR, PTT INR 0.99 (0.82-1.09) 01/18/18 19:10 Problem List - Problems (1) Fall Code(s): W19.XXXA - UNSPECIFIED FALL, INITIAL ENCOUNTER Qualifiers: Encounter type: initial encounter Qualified Code(s): W19.XXXA - Unspecified fall, initial encounter (2) Multiple fractures of ribs of right side Assessment/Plan: -confirmed by CXR and CT chest -pain management Code(s): S22.41XA - MULTIPLE FRACTURES OF RIBS, RIGHT SIDE, INIT FOR CLOS FX Qualifiers: Encounter type: initial encounter Fracture type: closed Qualified Code(s) : S22.41XA - Multiple fractures of ribs, right side, initial encounter for closed fracture (3) PNA (pneumonia) Assessment/Plan: -IV abx -ID consult on board -acetaminophen for fever over 100.0F Code(s): J18.9 - PNEUMONIA, UNSPECIFIED ORGANISM Assessment/Plan See problem list
[2018-01-20] MEDS: INSULIN SLIDING SCALE (NOVOLOG) 1 VIAL SQ SCH ×4 (06:07→21:51)
[2018-01-20] MEDS: INSULIN DETEMIR 100 UNITS/ML MDV SQ SCH ×2 (06:09→21:51)
[2018-01-20] MEDS: ALBUTEROL SO4 2.5/IPRATROPIUM 0.5 INH SOL 3 ML VIAL.NEB. NEB SCH ×4 (07:48→20:44)
--- NOTE | 2018-01-20 08:09 | PN ---
Progress Note, Physician Chief Complaint: ID Comfortable afebrile Ceftriaxone day 2 - Current Medication List Current Medications: Active Medications Acetaminophen (Tylenol -) 650 mg PO Q6H PRN PRN Reason: fever Last Admin: 01/19/18 10:47 Dose: 650 mg Albuterol Sulfate (Ventolin 0.083% Nebulizer Soln -) 1 amp NEB Q8H PRN PRN Reason: SHORT OF BREATH/WHEEZING Albuterol/Ipratropium (Duoneb -) 1 amp NEB RQID [facility] Last Admin: 01/20/18 07:48 Dose: 1 amp Docusate Sodium (Colace -) 100 mg PO BID PRN PRN Reason: CONSTIPATION Last Admin: 01/19/18 10:48 Dose: 100 mg Duloxetine HCl (Cymbalta -) 20 mg PO BID [facility] Last Admin: 01/19/18 22:01 Dose: 20 mg Hydralazine HCl (Apresoline -) 25 mg PO BID [facility] Last Admin: 01/19/18 22:01 Dose: 25 mg CEFTRIAXONE IN IS-OSM DEXTROSE (Ceftriaxone 2 Gm-D5w Bag) 2 gm in 50 mls @ 100 mls/hr IVPB DAILY [facility] Last Admin: 01/19/18 10:46 Dose: 100 mls/hr Insulin Aspart (Novolog Vial Sliding Scale -) 1 vial SQ ACHS [facility] PRN Reason: Protocol Last Admin: 01/20/18 06:07 Dose: Not Given Insulin Detemir (Levemir Vial) 26 units SQ AM [facility] Last Admin: 01/20/18 06:09 Dose: 26 units Insulin Detemir (Levemir Vial) 10 units SQ HS [facility] Last Admin: 01/19/18 22:01 Dose: 10 units Mycophenolate Sodium (Mycophenolic Acid) 360 mg PO BID [facility] Last Admin: 01/19/18 22:05 Dose: 360 mg Oxycodone HCl (Roxicodone -) 5 mg PO Q4H PRN PRN Reason: PAIN LEVEL 6-10 Last Admin: 01/18/18 15:07 Dose: 5 mg Prednisone (Deltasone -) 5 mg PO DAILY [facility] Last Admin: 01/19/18 17:11 Dose: 5 mg Tacrolimus (Prograf) 1 mg PO BID [facility] Last Admin: 01/19/18 22:05 Dose: 1 mg - Objective Vital Signs: Vital Signs Temperature 98.1 F 01/20/18 06:00 Pulse Rate 84 01/20/18 06:00 Respiratory Rate 18 01/20/18 06:00 Blood Pressure 117/58 01/20/18 06:00 O2 Sat by Pulse Oximetry (%) 96 01/19/18 20:36 Constitutional: Yes: No Distress, Moderate Distress (venti mask) Cardiovascular: Yes: Regular Rate and Rhythm, S1, S2 Respiratory: Yes: WNL, Regular, CTA Bilaterally, Rhonchi Gastrointestinal: Yes: WNL, Soft. No: Tenderness Edema: No Labs: CBC, BMP 01/19/18 06:00 01/18/18 19:10 INR, PTT INR 0.99 (0.82-1.09) 01/18/18 19:10 Problem List - Problems (1) Fever Code(s): R50.9 - FEVER, UNSPECIFIED (2) Multiple fractures of ribs of right side Code(s): S22.41XA - MULTIPLE FRACTURES OF RIBS, RIGHT SIDE, INIT FOR CLOS FX Qualifiers: Encounter type: initial encounter Fracture type: closed Qualified Code(s) : S22.41XA - Multiple fractures of ribs, right side, initial encounter for closed fracture (3) MDRO (multiple drug resistant organisms) resistance Code(s): Z16.35 - RESISTANCE TO MULTIPLE ANTIMICROBIAL DRUGS Assessment/Plan Laboratory Tests 01/19/18 06:00 WBC 12.6 H Hgb 12.5 Hct 37.5 Plt Count 219 Assessment S/P renal transplant Post fall with fractured ribs atalectasis and possible pneumonia with fever IDDM Plan Conitue Ceftriaxone Hopefully fever stays down Could be partially due atalectasis
[2018-01-20] MEDS ORDERED: PT OWN MED DRAWER 7, Y5N ONE (10:55)
--- NOTE | 2018-01-20 11:10 | PN ---
Progress Note, Physician Chief Complaint: Fall, Multiple rib fx, Pneumonia History of Present Illness: NAD, in bed, pleasantly confused - Current Medication List Current Medications: Active Medications Acetaminophen (Tylenol -) 650 mg PO Q6H PRN PRN Reason: fever Last Admin: 01/19/18 10:47 Dose: 650 mg Albuterol Sulfate (Ventolin 0.083% Nebulizer Soln -) 1 amp NEB Q8H PRN PRN Reason: SHORT OF BREATH/WHEEZING Albuterol/Ipratropium (Duoneb -) 1 amp NEB RQID [facility] Last Admin: 01/20/18 07:48 Dose: 1 amp Docusate Sodium (Colace -) 100 mg PO BID PRN PRN Reason: CONSTIPATION Last Admin: 01/19/18 10:48 Dose: 100 mg Duloxetine HCl (Cymbalta -) 20 mg PO BID [facility] Last Admin: 01/19/18 22:01 Dose: 20 mg Heparin Sodium (Porcine) (Heparin -) 5,000 unit SQ BID [facility] Hydralazine HCl (Apresoline -) 25 mg PO BID [facility] Last Admin: 01/19/18 22:01 Dose: 25 mg CEFTRIAXONE IN IS-OSM DEXTROSE (Ceftriaxone 2 Gm-D5w Bag) 2 gm in 50 mls @ 100 mls/hr IVPB DAILY [facility] Last Admin: 01/19/18 10:46 Dose: 100 mls/hr Insulin Aspart (Novolog Vial Sliding Scale -) 1 vial SQ ACHS [facility] PRN Reason: Protocol Last Admin: 01/20/18 06:07 Dose: Not Given Insulin Detemir (Levemir Vial) 26 units SQ AM [facility] Last Admin: 01/20/18 06:09 Dose: 26 units Insulin Detemir (Levemir Vial) 10 units SQ HS [facility] Last Admin: 01/19/18 22:01 Dose: 10 units Mycophenolate Sodium (Mycophenolic Acid) 360 mg PO BID [facility] Last Admin: 01/19/18 22:05 Dose: 360 mg Oxycodone HCl (Roxicodone -) 5 mg PO Q4H PRN PRN Reason: PAIN LEVEL 6-10 Last Admin: 01/18/18 15:07 Dose: 5 mg Prednisone (Deltasone -) 5 mg PO DAILY [facility] Last Admin: 01/19/18 17:11 Dose: 5 mg Tacrolimus (Prograf) 1 mg PO BID [facility] Last Admin: 01/19/18 22:05 Dose: 1 mg - Objective Vital Signs: Vital Signs Temperature 98.1 F 01/20/18 06:00 Pulse Rate 84 01/20/18 06:00 Respiratory Rate 18 01/20/18 06:00 Blood Pressure 117/58 01/20/18 06:00 O2 Sat by Pulse Oximetry (%) 96 01/19/18 20:36 Constitutional: Yes: Well Nourished, No Distress, Calm Cardiovascular: Yes: Regular Rate and Rhythm Respiratory: Yes: Regular Gastrointestinal: Yes: Normal Bowel Sounds, Soft Musculoskeletal: Yes: WNL Extremities: Yes: WNL Edema: No Peripheral Pulses WNL: Yes Neurological: Yes: Alert, Pre-Existing Deficit Psychiatric: Yes: Alert Labs: CBC, BMP 01/19/18 06:00 01/18/18 19:10 INR, PTT INR 0.99 (0.82-1.09) 01/18/18 19:10 Problem List - Problems (1) Fall Code(s): W19.XXXA - UNSPECIFIED FALL, INITIAL ENCOUNTER Qualifiers: Encounter type: initial encounter Qualified Code(s): W19.XXXA - Unspecified fall, initial encounter (2) Multiple fractures of ribs of right side Assessment/Plan: -confirmed by CXR and CT chest -pain management Code(s): S22.41XA - MULTIPLE FRACTURES OF RIBS, RIGHT SIDE, INIT FOR CLOS FX Qualifiers: Encounter type: initial encounter Fracture type: closed Qualified Code(s) : S22.41XA - Multiple fractures of ribs, right side, initial encounter for closed fracture (3) PNA (pneumonia) Assessment/Plan: -IV abx -ID consult on board -acetaminophen for fever over 100.0F Code(s): J18.9 - PNEUMONIA, UNSPECIFIED ORGANISM (4) IDDM (insulin dependent diabetes mellitus) Assessment/Plan: -last A1c at 9.0 -on insulin -endocrinology consult Code(s): E11.9 - TYPE 2 DIABETES MELLITUS WITHOUT COMPLICATIONS; Z79.4 - [employer]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
[2018-01-20] MEDS: DULoxetine HCL 20 MG CAPSULE.DR (FP) PO SCH ×2 (11:21→21:50)
[2018-01-20] MEDS: hydrALAZINE HCL 25 MG TABLET (FP) PO SCH ×2 (11:21→21:50)
[2018-01-20] MEDS: predniSONE 5 MG TABLET (UD) PO SCH (11:21)
[2018-01-20] MEDS: TACROLIMUS ANHYDROUS 1 MG CAPSULE PO SCH ×2 (11:22→21:52)
[2018-01-20] MEDS: MYCOPHENOLATE SODIUM 360 MG TABLET.DR PO SCH ×2 (11:22→21:50)
[2018-01-20 12:18] LABS: BASO % 0.6 % (0-2.0); EOS % 3.8 % (0-4.5); HEMOGLOBIN 11.5 GM/dL (11.7-16.9); LYMPH % 19.8 % (8-40); MCH 29.4 pg (25.7-33.7); MCHC 32.9 g/dl (32.0-35.9); MEAN CELL VOLUME 89.3 fl (80-96); MEAN PLT VOLUME 8.6 fl (7.5-11.1); MONO % 10.5 % (3.8-10.2); NEUT % 65.3 % (42.8-82.8); PLATELET COUNT 232 K/MM3 (134-434); RBC 3.91 M/mm3 (4.00-5.60); RDW 15.4 % (11.9-15.9); WHITE BLOOD COUNT 11.2 K/mm3 (4.0-10.0)
[2018-01-20 12:33] LABS: ALBUMIN 2.9 g/dl (3.4-5.0); ANION GAP 9 (8-16); BLOOD UREA NITROGEN 31 mg/dL (7-18); CALCIUM 8.9 mg/dL (8.5-10.1); CHLORIDE 101 mmol/L (98-107); CO2 28 mmol/L (21-32); GLUCOSE,RANDOM 177 mg/dL (74-106); SODIUM 138 mmol/L (136-145)
--- NOTE | 2018-01-20 12:35 | PN ---
Progress Note (short form) - Note Progress Note: PULMONARY COMFORTABLE IN BED /EATING LUNCH VSS/AFEBRILE ANICTERIC SCATTERED RHONCHI S1S2 BS+ NO EDEMA LABS/MEDS/NOTES/IMAGES REVIEWED IMP:RIGHT SIDED RIB FXS 9-11 S/P MECHANICAL FALL ATELECTASIS / PNA ASHD S/P CABG,S/P STENTS HTN DM CKD S/P RENAL TRANSPLANT PLAN ANALGESICS INCENTIVE SPIROMETER O2 ABX PER ID BD TX Genny WEBSTER MD
[2018-01-20 12:37] LABS: ALK PHOS 62 U/L (45-117); BILIRUBIN,TOTAL 0.3 mg/dL (0.2-1.0); CREATININE 1.1 mg/dL (0.7-1.3); SGOT/AST 14 U/L (15-37); SGPT/ALT 15 U/L (12-78); TOT PROT 6.4 g/dl (6.4-8.2)
[2018-01-20] MEDS: CEFTRIAXONE IN IS-OSM DEXTROSE 2 GM/50 ML BAG IVPB SCH (13:56)
[2018-01-20] MEDS: HEPARIN NA (PORCINE) 5,000 UNITS/ML 1ML VIAL SQ SCH ×2 (13:56→21:51)
--- NOTE | 2018-01-20 16:09 | PN ---
Progress Note, Physician History of Present Illness: Pt seen and examined at bedside. He is confused at times. - Current Medication List Current Medications: Active Medications Acetaminophen (Tylenol -) 650 mg PO Q6H PRN PRN Reason: fever Last Admin: 01/19/18 10:47 Dose: 650 mg Albuterol Sulfate (Ventolin 0.083% Nebulizer Soln -) 1 amp NEB Q8H PRN PRN Reason: SHORT OF BREATH/WHEEZING Albuterol/Ipratropium (Duoneb -) 1 amp NEB RQID [facility] Last Admin: 01/20/18 11:33 Dose: 1 amp Docusate Sodium (Colace -) 100 mg PO BID PRN PRN Reason: CONSTIPATION Last Admin: 01/19/18 10:48 Dose: 100 mg Duloxetine HCl (Cymbalta -) 20 mg PO BID [facility] Last Admin: 01/20/18 11:21 Dose: 20 mg Heparin Sodium (Porcine) (Heparin -) 5,000 unit SQ BID [facility] Last Admin: 01/20/18 13:56 Dose: 5,000 unit Hydralazine HCl (Apresoline -) 25 mg PO BID [facility] Last Admin: 01/20/18 11:21 Dose: 25 mg CEFTRIAXONE IN IS-OSM DEXTROSE (Ceftriaxone 2 Gm-D5w Bag) 2 gm in 50 mls @ 100 mls/hr IVPB DAILY [facility] Last Admin: 01/20/18 13:56 Dose: 100 mls/hr Insulin Aspart (Novolog Vial Sliding Scale -) 1 vial SQ ACHS [facility] PRN Reason: Protocol Last Admin: 01/20/18 11:30 Dose: Not Given Insulin Detemir (Levemir Vial) 26 units SQ AM [facility] Last Admin: 01/20/18 06:09 Dose: 26 units Insulin Detemir (Levemir Vial) 10 units SQ HS [facility] Last Admin: 01/19/18 22:01 Dose: 10 units Mycophenolate Sodium (Mycophenolic Acid) 360 mg PO BID [facility] Last Admin: 01/20/18 11:22 Dose: 360 mg Oxycodone HCl (Roxicodone -) 5 mg PO Q4H PRN PRN Reason: PAIN LEVEL 6-10 Last Admin: 01/18/18 15:07 Dose: 5 mg Prednisone (Deltasone -) 5 mg PO DAILY [facility] Last Admin: 01/20/18 11:21 Dose: 5 mg Tacrolimus (Prograf) 1 mg PO BID [facility] Last Admin: 01/20/18 11:22 Dose: 1 mg - Objective Vital Signs: Vital Signs Temperature 98.0 F 01/20/18 13:55 Pulse Rate 84 01/20/18 06:00 Respiratory Rate 18 01/20/18 06:00 Blood Pressure 117/58 01/20/18 06:00 O2 Sat by Pulse Oximetry (%) 96 01/19/18 20:36 Constitutional: Yes: Calm Eyes: Yes: Conjunctiva Clear HENT: Yes: Atraumatic Neck: Yes: Supple Cardiovascular: Yes: S1, S2 Respiratory: Yes: CTA Bilaterally Gastrointestinal: Yes: Soft Genitourinary: Yes: Other (graft soft and non tender) Musculoskeletal: Yes: WNL Edema: No Neurological: Yes: Confusion Psychiatric: Yes: Oriented Labs: CBC, BMP 01/20/18 11:30 01/20/18 11:30 INR, PTT INR 0.99 (0.82-1.09) 01/18/18 19:10 Problem List - Problems (1) Fall Code(s): W19.XXXA - UNSPECIFIED FALL, INITIAL ENCOUNTER Qualifiers: Encounter type: initial encounter Qualified Code(s): W19.XXXA - Unspecified fall, initial encounter (2) Fever Code(s): R50.9 - FEVER, UNSPECIFIED (3) IDDM (insulin dependent diabetes mellitus) Code(s): E11.9 - TYPE 2 DIABETES MELLITUS WITHOUT COMPLICATIONS; 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 (4) Kidney transplant recipient Code(s): Z94.0 - KIDNEY TRANSPLANT STATUS Assessment/Plan Current Medications Generic Name Dose Route Start Last Admin Trade Name Freq PRN Reason Stop Dose Admin Acetaminophen 650 mg 01/18/18 19:07 01/19/18 10:47 Tylenol - PO 650 mg Q6H PRN Administration fever Albuterol Sulfate 1 amp 01/18/18 00:44 Ventolin 0.083% Nebulizer Soln - NEB Q8H PRN SHORT OF BREATH/WHEEZING Albuterol/Ipratropium 1 amp 01/18/18 12:00 01/20/18 11:33 Duoneb - NEB 1 amp RQID [facility] Administration Docusate Sodium 100 mg 01/18/18 11:45 01/19/18 10:48 Colace - PO 100 mg BID PRN Administration CONSTIPATION Duloxetine HCl 20 mg 01/18/18 10:00 01/20/18 11:21 Cymbalta - PO 20 mg BID [facility] Administration Heparin Sodium (Porcine) 5,000 unit 01/20/18 11:15 01/20/18 13:56 Heparin - SQ 5,000 unit BID [facility] Administration Hydralazine HCl 25 mg 01/18/18 10:00 01/20/18 11:21 Apresoline - PO 25 mg BID [facility] Administration CEFTRIAXONE IN IS-OSM DEXTROSE 2 gm in 50 mls @ 100 mls/hr 01/19/18 10:00 01/08 13:56 Ceftriaxone 2 Gm-D5w Bag IVPB 100 mls/hr DAILY [facility] Administration Insulin Aspart 1 vial 01/18/18 07:00 01/20/18 11:30 Novolog Vial Sliding Scale - SQ Not Given ACHS [facility] Protocol Insulin Detemir 26 units 01/18/18 20:11 01/20/18 06:09 Levemir Vial SQ 26 units AM [facility] Administration Insulin Detemir 10 units 01/18/18 22:00 01/19/18 22:01 Levemir Vial SQ 10 units HS [facility] Administration Mycophenolate Sodium 360 mg 01/18/18 10:00 01/20/18 11:22 Mycophenolic Acid PO 360 mg BID [facility] Administration Oxycodone HCl 5 mg 01/18/18 11:45 01/18/18 15:07 Roxicodone - PO 5 mg Q4H PRN Administration PAIN LEVEL 6-10 Prednisone 5 mg 01/19/18 16:45 01/20/18 11:21 Deltasone - PO 5 mg DAILY [facility] Administration Tacrolimus 1 mg 01/19/18 16:45 01/20/18 11:22 Prograf PO 1 mg BID [facility] Administration Laboratory Tests 01/18/18 23:20 Urine Protein Negative Urine Glucose (UA) 2+ H Urine Blood Negative Impression 1. CKD 2. kidney transplant 3. DM 4. hx of syncope 5. HTN 6. hyperlipidemia 7. dehydration 8. s/p fall Plan - cont current meds - renal function is improved - will need outpt follow up - cont prograf 1 mg po q 12 hrs - will need better blood sugar control - will follow Dr Perez
[2018-01-20] MEDS ORDERED: INSULIN (NOVOLOG) ASPART 100 UNITS/ML 10ML VIAL ONE (21:34)
--- NOTE | 2018-01-20 23:09 | PN ---
Progress Note, Physician Chief Complaint: sitting in bed feeling better,denies back pain History of Present Illness: dm,htn,kidniey transplant,sp fall injury to ribs,back and fear of walking gait no hypoglycemia - Current Medication List Current Medications: Active Medications Acetaminophen (Tylenol -) 650 mg PO Q6H PRN PRN Reason: fever Last Admin: 01/19/18 10:47 Dose: 650 mg Albuterol Sulfate (Ventolin 0.083% Nebulizer Soln -) 1 amp NEB Q8H PRN PRN Reason: SHORT OF BREATH/WHEEZING Albuterol/Ipratropium (Duoneb -) 1 amp NEB RQID [facility] Last Admin: 01/20/18 20:44 Dose: 1 amp Docusate Sodium (Colace -) 100 mg PO BID PRN PRN Reason: CONSTIPATION Last Admin: 01/19/18 10:48 Dose: 100 mg Duloxetine HCl (Cymbalta -) 20 mg PO BID [facility] Last Admin: 01/20/18 21:50 Dose: 20 mg Heparin Sodium (Porcine) (Heparin -) 5,000 unit SQ BID [facility] Last Admin: 01/20/18 21:51 Dose: 5,000 unit Hydralazine HCl (Apresoline -) 25 mg PO BID [facility] Last Admin: 01/20/18 21:50 Dose: 25 mg CEFTRIAXONE IN IS-OSM DEXTROSE (Ceftriaxone 2 Gm-D5w Bag) 2 gm in 50 mls @ 100 mls/hr IVPB DAILY [facility] Last Admin: 01/20/18 13:56 Dose: 100 mls/hr Insulin Aspart (Novolog Vial Sliding Scale -) 1 vial SQ ACHS [facility] PRN Reason: Protocol Last Admin: 01/20/18 21:51 Dose: Not Given Insulin Detemir (Levemir Vial) 26 units SQ AM [facility] Last Admin: 01/20/18 06:09 Dose: 26 units Insulin Detemir (Levemir Vial) 10 units SQ HS [facility] Last Admin: 01/20/18 21:51 Dose: 10 units Mycophenolate Sodium (Mycophenolic Acid) 360 mg PO BID [facility] Last Admin: 01/20/18 21:50 Dose: 360 mg Oxycodone HCl (Roxicodone -) 5 mg PO Q4H PRN PRN Reason: PAIN LEVEL 6-10 Last Admin: 01/18/18 15:07 Dose: 5 mg Prednisone (Deltasone -) 5 mg PO DAILY [facility] Last Admin: 01/20/18 11:21 Dose: 5 mg Tacrolimus (Prograf) 1 mg PO BID [facility] Last Admin: 01/20/18 21:52 Dose: 1 mg - Objective Vital Signs: Vital Signs Temperature 98.0 F 01/20/18 13:55 Pulse Rate 86 01/20/18 09:00 Respiratory Rate 18 01/20/18 09:00 Blood Pressure 158/69 01/20/18 09:00 O2 Sat by Pulse Oximetry (%) 96 01/19/18 20:36 Constitutional: Yes: Well Nourished Eyes: Yes: Conjunctiva Clear HENT: Yes: Normocephalic Neck: Yes: Trachea Midline Cardiovascular: Yes: Regular Rate and Rhythm Respiratory: Yes: Regular Gastrointestinal: Yes: Normal Bowel Sounds ...Rectal Exam: Yes: Deferred Genitourinary: Yes: WNL Breast(s): Yes: WNL Musculoskeletal: Yes: WNL Extremities: Yes: WNL Edema: No Peripheral Pulses WNL: Yes Integumentary: Yes: WNL Neurological: Yes: WNL Labs: CBC, BMP 01/20/18 11:30 01/20/18 11:30 INR, PTT INR 0.99 (0.82-1.09) 01/18/18 19:10 Problem List - Problems (1) Multiple fractures of ribs of right side Code(s): S22.41XA - MULTIPLE FRACTURES OF RIBS, RIGHT SIDE, INIT FOR CLOS FX Qualifiers: Encounter type: initial encounter Fracture type: closed Qualified Code(s) : S22.41XA - Multiple fractures of ribs, right side, initial encounter for closed fracture (2) PNA (pneumonia) Code(s): J18.9 - PNEUMONIA, UNSPECIFIED ORGANISM (3) Ribs, multiple fractures Code(s): S22.49XA - MULTIPLE FRACTURES OF RIBS, UNSP SIDE, INIT FOR CLOS FX (4) Trauma, blunt Code(s): T14.90XA - INJURY, UNSPECIFIED, INITIAL ENCOUNTER (5) IDDM (insulin dependent diabetes mellitus) Code(s): E11.9 - TYPE 2 DIABETES MELLITUS WITHOUT COMPLICATIONS; Z79.4 - GLAZE MAKER (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2 H RBC 3.91 L Hgb 11.5 L Hct 35.0 L MCV 89.3 MCH 29.4 MCHC 32.9 RDW 15.4 Plt Count 232 MPV 8.6 Neutrophils % 65.3 Lymphocytes % 19.8 Monocytes % 10.5 H Eosinophils % 3.8 D Basophils % 0.6 Sodium Potassium Chloride Carbon Dioxide Anion Gap BUN Creatinine Creat Clearance w eGFR POC Glucometer 153 176 Random Glucose Calcium Total Bilirubin AST ALT Alkaline Phosphatase Total Protein Albumin 01/20/18 01/20/18 01/20/18 11:30 17:23 21:50 WBC RBC Hgb Hct MCV MCH MCHC RDW Plt Count MPV Neutrophils % Lymphocytes % Monocytes % Eosinophils % Basophils % Sodium 138 Potassium 4.0 Chloride 101 Carbon Dioxide 28 Anion Gap 9 BUN 31 H D Creatinine 1.1 Creat Clearance w eGFR > 60 POC Glucometer 207 157 Random Glucose 177 H Calcium 8.9 Total Bilirubin 0.3 AST 14 L D ALT 15 Alkaline Phosphatase 62 Total Protein 6.4 Albumin 2.9 L plan: bgm continue same coverage [facility] Laboratory Tests 01/20/18 01/20/18 01/20/18 05:23 11:25 17:23 POC Glucometer 153 176 207 01/20/18 21:50 POC Glucometer 157 levemir 26 units am levemir 5 units hs
[2018-01-21] MEDS: INSULIN SLIDING SCALE (NOVOLOG) 1 VIAL SQ SCH ×4 (06:24→21:30)
[2018-01-21] MEDS: INSULIN DETEMIR 100 UNITS/ML MDV SQ SCH ×2 (06:24→21:31)
[2018-01-21] MEDS: ALBUTEROL SO4 2.5/IPRATROPIUM 0.5 INH SOL 3 ML VIAL.NEB. NEB SCH ×4 (08:05→20:45)
[2018-01-21 08:30] LABS: CHLORIDE 104 mmol/L (98-107); SODIUM 140 mmol/L (136-145)
[2018-01-21 08:33] LABS: BASO % 0.8 % (0-2.0); EOS % 4.7 % (0-4.5); HEMATOCRIT 35.9 % (35.4-49); LYMPH % 25.9 % (8-40); MCH 29.8 pg (25.7-33.7); MCHC 33.4 g/dl (32.0-35.9); MEAN CELL VOLUME 89.2 fl (80-96); MEAN PLT VOLUME 8.4 fl (7.5-11.1); MONO % 9.9 % (3.8-10.2); NEUT % 58.7 % (42.8-82.8); PLATELET COUNT 255 K/MM3 (134-434); RBC 4.03 M/mm3 (4.00-5.60); RDW 15.4 % (11.9-15.9); WHITE BLOOD COUNT 9.1 K/mm3 (4.0-10.0)
[2018-01-21 08:38] LABS: ALBUMIN 2.9 g/dl (3.4-5.0); ALK PHOS 63 U/L (45-117); ANION GAP 12 (8-16); BILIRUBIN,TOTAL 0.3 mg/dL (0.2-1.0); BLOOD UREA NITROGEN 25 mg/dL (7-18); CALCIUM 9.1 mg/dL (8.5-10.1); CO2 24 mmol/L (21-32); CREATININE 0.9 mg/dL (0.7-1.3); GLUCOSE,RANDOM 107 mg/dL (74-106); SGOT/AST 16 U/L (15-37); SGPT/ALT 19 U/L (12-78); TOT PROT 6.5 g/dl (6.4-8.2)
[2018-01-21] MEDS ORDERED: INSULIN (NOVOLOG) ASPART 100 UNITS/ML 10ML VIAL ONE ×2 (09:54→21:21)
[2018-01-21] MEDS ORDERED: PT OWN MED DRAWER 7, Y5N ONE ×2 (09:55→21:20)
[2018-01-21] MEDS: CEFTRIAXONE IN IS-OSM DEXTROSE 2 GM/50 ML BAG IVPB SCH (10:28)
[2018-01-21] MEDS: hydrALAZINE HCL 25 MG TABLET (FP) PO SCH ×2 (10:28→21:31)
[2018-01-21] MEDS: HEPARIN NA (PORCINE) 5,000 UNITS/ML 1ML VIAL SQ SCH ×2 (10:28→21:31)
[2018-01-21] MEDS: MYCOPHENOLATE SODIUM 360 MG TABLET.DR PO SCH ×2 (10:28→21:31)
[2018-01-21] MEDS: predniSONE 5 MG TABLET (UD) PO SCH (10:28)
[2018-01-21] MEDS: DULoxetine HCL 20 MG CAPSULE.DR (FP) PO SCH ×2 (10:28→21:31)
[2018-01-21] MEDS: TACROLIMUS ANHYDROUS 1 MG CAPSULE PO SCH ×2 (10:29→21:32)
--- NOTE | 2018-01-21 11:39 | PN ---
Progress Note, Physician Chief Complaint: Fall, Multiple rib fx, Pneumonia History of Present Illness: NAD, in bed, pleasantly confused seen by Nephrology and endocrinology - Current Medication List Current Medications: Active Medications Acetaminophen (Tylenol -) 650 mg PO Q6H PRN PRN Reason: fever Last Admin: 01/19/18 10:47 Dose: 650 mg Albuterol Sulfate (Ventolin 0.083% Nebulizer Soln -) 1 amp NEB Q8H PRN PRN Reason: SHORT OF BREATH/WHEEZING Albuterol/Ipratropium (Duoneb -) 1 amp NEB RQID [facility] Last Admin: 01/21/18 11:34 Dose: 1 amp Docusate Sodium (Colace -) 100 mg PO BID PRN PRN Reason: CONSTIPATION Last Admin: 01/19/18 10:48 Dose: 100 mg Duloxetine HCl (Cymbalta -) 20 mg PO BID [facility] Last Admin: 01/21/18 10:28 Dose: 20 mg Heparin Sodium (Porcine) (Heparin -) 5,000 unit SQ BID [facility] Last Admin: 01/21/18 10:28 Dose: 5,000 unit Hydralazine HCl (Apresoline -) 25 mg PO BID [facility] Last Admin: 01/21/18 10:28 Dose: 25 mg CEFTRIAXONE IN IS-OSM DEXTROSE (Ceftriaxone 2 Gm-D5w Bag) 2 gm in 50 mls @ 100 mls/hr IVPB DAILY [facility] Last Admin: 01/21/18 10:28 Dose: 100 mls/hr Insulin Aspart (Novolog Vial Sliding Scale -) 1 vial SQ ACHS [facility] PRN Reason: Protocol Last Admin: 01/21/18 06:24 Dose: Not Given Insulin Detemir (Levemir Vial) 26 units SQ AM [facility] Last Admin: 01/21/18 06:24 Dose: Not Given Insulin Detemir (Levemir Vial) 5 units SQ HS [facility] Mycophenolate Sodium (Mycophenolic Acid) 360 mg PO BID [facility] Last Admin: 01/21/18 10:28 Dose: 360 mg Oxycodone HCl (Roxicodone -) 5 mg PO Q4H PRN PRN Reason: PAIN LEVEL 6-10 Last Admin: 01/18/18 15:07 Dose: 5 mg Prednisone (Deltasone -) 5 mg PO DAILY [facility] Last Admin: 01/21/18 10:28 Dose: 5 mg Tacrolimus (Prograf) 1 mg PO BID [facility] Last Admin: 01/21/18 10:29 Dose: 1 mg - Objective Vital Signs: Vital Signs Temperature 98.2 F 01/21/18 09:50 Pulse Rate 96 H 01/21/18 09:50 Respiratory Rate 18 01/21/18 09:50 Blood Pressure 142/99 01/21/18 09:50 O2 Sat by Pulse Oximetry (%) 96 01/20/18 21:00 Constitutional: Yes: Well Nourished, No Distress, Calm Cardiovascular: Yes: Regular Rate and Rhythm Respiratory: Yes: Regular Gastrointestinal: Yes: Normal Bowel Sounds, Soft Neurological: Yes: Alert, Pre-Existing Deficit Psychiatric: Yes: Alert Labs: CBC, BMP 01/21/18 07:00 01/21/18 07:00 INR, PTT INR 0.99 (0.82-1.09) 01/18/18 19:10 Problem List - Problems (1) Fall Code(s): W19.XXXA - UNSPECIFIED FALL, INITIAL ENCOUNTER Qualifiers: Encounter type: initial encounter Qualified Code(s): W19.XXXA - Unspecified fall, initial encounter (2) Multiple fractures of ribs of right side Assessment/Plan: -confirmed by CXR and CT chest -pain management Code(s): S22.41XA - MULTIPLE FRACTURES OF RIBS, RIGHT SIDE, INIT FOR CLOS FX Qualifiers: Encounter type: initial encounter Fracture type: closed Qualified Code(s) : S22.41XA - Multiple fractures of ribs, right side, initial encounter for closed fracture (3) PNA (pneumonia) Assessment/Plan: -IV abx -ID consult on board -acetaminophen for fever over 100.0F Code(s): J18.9 - PNEUMONIA, UNSPECIFIED ORGANISM (4) IDDM (insulin dependent diabetes mellitus) Assessment/Plan: -last A1c at 9.0 -on insulin -endocrinology consult -BGM -diabetic diet Code(s): E11.9 - TYPE 2 DIABETES MELLITUS WITHOUT COMPLICATIONS; Z79.4 - ASSISTED (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 OF 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 Physical therapy DVT/GI prophylaxis
[2018-01-21] MEDS: PANTOPRAZOLE 20 MG TABLET (FP) PO SCH (13:52)
--- NOTE | 2018-01-21 14:22 | PN ---
Progress Note (short form) - Note Progress Note: PULMONARY Denies shortness of breath, cough or wheezing. No fevers recorded. Last Vital Signs Temp Pulse Resp BP Pulse Ox 98.2 F 93 H 18 158/55 100 01/21/18 13:58 01/21/18 13:58 01/21/18 13:58 01/21/18 13:58 01/21/18 10:20 Gen: NAD at rest HEart: RRR Lung: basilar rales Abd: soft, nontender Ext: no edema CBC, BMP 01/21/18 07:00 01/21/18 07:00 Active Medications Acetaminophen (Tylenol -) 650 mg PO Q6H PRN PRN Reason: fever Last Admin: 01/19/18 10:47 Dose: 650 mg Albuterol Sulfate (Ventolin 0.083% Nebulizer Soln -) 1 amp NEB Q8H PRN PRN Reason: SHORT OF BREATH/WHEEZING Albuterol/Ipratropium (Duoneb -) 1 amp NEB RQID [facility] Last Admin: 01/21/18 11:34 Dose: 1 amp Docusate Sodium (Colace -) 100 mg PO BID PRN PRN Reason: CONSTIPATION Last Admin: 01/19/18 10:48 Dose: 100 mg Duloxetine HCl (Cymbalta -) 20 mg PO BID [facility] Last Admin: 01/21/18 10:28 Dose: 20 mg Heparin Sodium (Porcine) (Heparin -) 5,000 unit SQ BID [facility] Last Admin: 01/21/18 10:28 Dose: 5,000 unit Hydralazine HCl (Apresoline -) 25 mg PO BID [facility] Last Admin: 01/21/18 10:28 Dose: 25 mg CEFTRIAXONE IN IS-OSM DEXTROSE (Ceftriaxone 2 Gm-D5w Bag) 2 gm in 50 mls @ 100 mls/hr IVPB DAILY [facility] Last Admin: 01/21/18 10:28 Dose: 100 mls/hr Insulin Aspart (Novolog Vial Sliding Scale -) 1 vial SQ ACHS [facility] PRN Reason: Protocol Last Admin: 01/21/18 11:57 Dose: 5 units Insulin Detemir (Levemir Vial) 26 units SQ AM [facility] Last Admin: 01/21/18 06:24 Dose: Not Given Insulin Detemir (Levemir Vial) 5 units SQ HS [facility] Mycophenolate Sodium (Mycophenolic Acid) 360 mg PO BID [facility] Last Admin: 01/21/18 10:28 Dose: 360 mg Pantoprazole Sodium (Protonix -) 20 mg PO DAILY [facility] Last Admin: 01/21/18 13:52 Dose: 20 mg Prednisone (Deltasone -) 5 mg PO DAILY [facility] Last Admin: 01/21/18 10:28 Dose: 5 mg Tacrolimus (Prograf) 1 mg PO BID [facility] Last Admin: 01/21/18 10:29 Dose: 1 mg A/P Pneumonia Atelectasis Right Rib Fractures s/p fall CAD s/p CABG HTN DM Renal Transplant - continue antibiotics - incentive spirometry - inhaled bronchodilators - O2 as needed - DVT prophylaxis
--- NOTE | 2018-01-21 23:17 | PN ---
Progress Note (short form) - Note Progress Note: Current Medications Acetaminophen (Tylenol -) 650 mg PO Q6H PRN PRN Reason: fever Last Admin: 01/19/18 10:47 Dose: 650 mg Albuterol Sulfate (Ventolin 0.083% Nebulizer Soln -) 1 amp NEB Q8H PRN PRN Reason: SHORT OF BREATH/WHEEZING Albuterol/Ipratropium (Duoneb -) 1 amp NEB RQID [facility] Last Admin: 01/21/18 20:45 Dose: 1 amp Docusate Sodium (Colace -) 100 mg PO BID PRN PRN Reason: CONSTIPATION Last Admin: 01/19/18 10:48 Dose: 100 mg Duloxetine HCl (Cymbalta -) 20 mg PO BID [facility] Last Admin: 01/21/18 21:31 Dose: 20 mg Heparin Sodium (Porcine) (Heparin -) 5,000 unit SQ BID [facility] Last Admin: 01/21/18 21:31 Dose: 5,000 unit Hydralazine HCl (Apresoline -) 25 mg PO BID [facility] Last Admin: 01/21/18 21:31 Dose: 25 mg CEFTRIAXONE IN IS-OSM DEXTROSE (Ceftriaxone 2 Gm-D5w Bag) 2 gm in 50 mls @ 100 mls/hr IVPB DAILY [facility] Last Admin: 01/21/18 10:28 Dose: 100 mls/hr Insulin Aspart (Novolog Vial Sliding Scale -) 1 vial SQ ACHS [facility] PRN Reason: Protocol Last Admin: 01/21/18 21:30 Dose: 7 units Insulin Detemir (Levemir Vial) 26 units SQ AM [facility] Last Admin: 01/21/18 06:24 Dose: Not Given Insulin Detemir (Levemir Vial) 5 units SQ HS [facility] Last Admin: 01/21/18 21:31 Dose: 5 units Mycophenolate Sodium (Mycophenolic Acid) 360 mg PO BID [facility] Last Admin: 01/21/18 21:31 Dose: 360 mg Pantoprazole Sodium (Protonix -) 20 mg PO DAILY [facility] Last Admin: 01/21/18 13:52 Dose: 20 mg Prednisone (Deltasone -) 5 mg PO DAILY [facility] Last Admin: 01/21/18 10:28 Dose: 5 mg Tacrolimus (Prograf) 1 mg PO BID [facility] Last Admin: 01/21/18 21:32 Dose: 1 mg Last Vital Signs Temp Pulse Resp BP Pulse Ox 98.2 F 93 H 18 158/55 100 01/21/18 13:58 01/21/18 13:58 01/21/18 13:58 01/21/18 13:58 01/21/18 10:20 alert in nad sitting in w/c pleasant speaks in vietnamese sometime IMP stable renal
--- NOTE | 2018-01-22 01:26 | PN ---
Progress Note, Physician Chief Complaint: comfortable denies pain History of Present Illness: dm,htn,renal transplant,sp fall and rib fractures sustained,admitted with pneumonia still with cough and congestion - Current Medication List Current Medications: Active Medications Acetaminophen (Tylenol -) 650 mg PO Q6H PRN PRN Reason: fever Last Admin: 01/19/18 10:47 Dose: 650 mg Albuterol Sulfate (Ventolin 0.083% Nebulizer Soln -) 1 amp NEB Q8H PRN PRN Reason: SHORT OF BREATH/WHEEZING Albuterol/Ipratropium (Duoneb -) 1 amp NEB RQID [facility] Last Admin: 01/21/18 20:45 Dose: 1 amp Docusate Sodium (Colace -) 100 mg PO BID PRN PRN Reason: CONSTIPATION Last Admin: 01/19/18 10:48 Dose: 100 mg Duloxetine HCl (Cymbalta -) 20 mg PO BID [facility] Last Admin: 01/21/18 21:31 Dose: 20 mg Heparin Sodium (Porcine) (Heparin -) 5,000 unit SQ BID [facility] Last Admin: 01/21/18 21:31 Dose: 5,000 unit Hydralazine HCl (Apresoline -) 25 mg PO BID [facility] Last Admin: 01/21/18 21:31 Dose: 25 mg CEFTRIAXONE IN IS-OSM DEXTROSE (Ceftriaxone 2 Gm-D5w Bag) 2 gm in 50 mls @ 100 mls/hr IVPB DAILY [facility] Last Admin: 01/21/18 10:28 Dose: 100 mls/hr Insulin Aspart (Novolog Vial Sliding Scale -) 1 vial SQ ACHS [facility] PRN Reason: Protocol Last Admin: 01/21/18 21:30 Dose: 7 units Insulin Detemir (Levemir Vial) 26 units SQ AM [facility] Last Admin: 01/21/18 06:24 Dose: Not Given Insulin Detemir (Levemir Vial) 5 units SQ HS [facility] Last Admin: 01/21/18 21:31 Dose: 5 units Mycophenolate Sodium (Mycophenolic Acid) 360 mg PO BID [facility] Last Admin: 01/21/18 21:31 Dose: 360 mg Pantoprazole Sodium (Protonix -) 20 mg PO DAILY [facility] Last Admin: 01/21/18 13:52 Dose: 20 mg Prednisone (Deltasone -) 5 mg PO DAILY [facility] Last Admin: 01/21/18 10:28 Dose: 5 mg Tacrolimus (Prograf) 1 mg PO BID [facility] Last Admin: 01/21/18 21:32 Dose: 1 mg - Objective Vital Signs: Vital Signs Temperature 97.8 F 01/21/18 22:00 Pulse Rate 97 H 01/21/18 22:00 Respiratory Rate 18 01/21/18 21:00 Blood Pressure 146/54 01/21/18 22:00 O2 Sat by Pulse Oximetry (%) 100 01/21/18 21:00 Constitutional: Yes: Calm Eyes: Yes: EOM Intact HENT: Yes: Normocephalic Neck: Yes: Trachea Midline Cardiovascular: Yes: Regular Rate and Rhythm Respiratory: Yes: Rhonchi, SOB, Tachypnea Labs: CBC, BMP 01/21/18 07:00 01/21/18 07:00 INR, PTT INR 0.99 (0.82-1.09) 01/18/18 19:10 Problem List - Problems (1) Multiple fractures of ribs of right side Code(s): S22.41XA - MULTIPLE FRACTURES OF RIBS, RIGHT SIDE, INIT FOR CLOS FX Qualifiers: Encounter type: initial encounter Fracture type: closed Qualified Code(s) : S22.41XA - Multiple fractures of ribs, right side, initial encounter for closed fracture (2) PNA (pneumonia) Code(s): J18.9 - PNEUMONIA, UNSPECIFIED ORGANISM (3) Ribs, multiple fractures Code(s): S22.49XA - MULTIPLE FRACTURES OF RIBS, UNSP SIDE, INIT FOR CLOS FX (4) Trauma, blunt Code(s): T14.90XA - INJURY, UNSPECIFIED, INITIAL ENCOUNTER (5) IDDM (insulin dependent diabetes mellitus) Code(s): E11.9 - TYPE 2 DIABETES MELLITUS WITHOUT COMPLICATIONS; Z79.4 - 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 (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 OF 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 (6) Kidney transplant recipient Code(s): Z94.0 - KIDNEY TRANSPLANT STATUS Assessment/Plan Current Active Problems Dehydration (Acute) Fall (Acute) Fever (Acute) MDRO (multiple drug resistant organisms) resistance (Acute) Multiple fractures of ribs of right side (Acute) PNA (pneumonia) (Acute) Ribs, multiple fractures (Acute) Trauma, blunt (Acute) IDDM (insulin dependent diabetes mellitus) (Chronic) Kidney transplant recipient (Chronic) Type 2 diabetes mellitus with diabetic polyneuropathy (Chronic) Abnormal Lab Results 01/21/18 01/21/18 07:00 07:00 Eosinophils % 4.7 H BUN 25 H Random Glucose 107 H D Albumin 2.9 L Laboratory Results - last 24 hr 01/21/18 01/21/18 01/21/18 06:23 07:00 07:00 WBC 9.1 RBC 4.03 Hgb 12.0 Hct 35.9 MCV 89.2 MCH 29.8 MCHC 33.4 RDW 15.4 Plt Count 255 MPV 8.4 Neutrophils % 58.7 Lymphocytes % 25.9 D Monocytes % 9.9 Eosinophils % 4.7 H Basophils % 0.8 Sodium 140 Potassium 4.0 Chloride 104 Carbon Dioxide 24 Anion Gap 12 BUN 25 H Creatinine 0.9 Creat Clearance w eGFR > 60 POC Glucometer 100 Random Glucose 107 H D Calcium 9.1 Total Bilirubin 0.3 AST 16 ALT 19 D Alkaline Phosphatase 63 Total Protein 6.5 Albumin 2.9 L 01/21/18 01/21/18 01/21/18 11:50 16:43 21:30 WBC RBC Hgb Hct MCV MCH MCHC RDW Plt Count MPV Neutrophils % Lymphocytes % Monocytes % Eosinophils % Basophils % Sodium Potassium Chloride Carbon Dioxide Anion Gap BUN Creatinine Creat Clearance w eGFR POC Glucometer 287 383 306 Random Glucose Calcium Total Bilirubin AST ALT Alkaline Phosphatase Total Protein Albumin plan: levemir dose increase 30 units am levemir dose to 10 units hs
[2018-01-22] MEDS: INSULIN SLIDING SCALE (NOVOLOG) 1 VIAL SQ SCH ×4 (06:20→21:09)
[2018-01-22] MEDS: INSULIN DETEMIR 100 UNITS/ML MDV SQ SCH ×2 (06:20→21:09)
[2018-01-22] MEDS ORDERED: PT OWN MED DRAWER 7, Y5N ONE ×3 (06:45→21:01)
[2018-01-22 08:21] LABS: HEMATOCRIT 36.4 % (35.4-49); HEMOGLOBIN 12.3 GM/dL (11.7-16.9); MCHC 33.8 g/dl (32.0-35.9); MEAN CELL VOLUME 88.7 fl (80-96); MEAN PLT VOLUME 7.9 fl (7.5-11.1); PLATELET COUNT 291 K/MM3 (134-434); RBC 4.11 M/mm3 (4.00-5.60); RDW 15.6 % (11.9-15.9); WHITE BLOOD COUNT 10.4 K/mm3 (4.0-10.0)
[2018-01-22] MEDS: ALBUTEROL SO4 2.5/IPRATROPIUM 0.5 INH SOL 3 ML VIAL.NEB. NEB SCH ×4 (08:30→20:33)
[2018-01-22 08:55] LABS: ALBUMIN 3.3 g/dl (3.4-5.0); CHLORIDE 103 mmol/L (98-107); POTASSIUM 3.9 mmol/L (3.5-5.1); SODIUM 136 mmol/L (136-145)
[2018-01-22 09:02] LABS: ALK PHOS 76 U/L (45-117); ANION GAP 8 (8-16); BILIRUBIN,TOTAL 0.5 mg/dL (0.2-1.0); BLOOD UREA NITROGEN 25 mg/dL (7-18); CALCIUM 8.8 mg/dL (8.5-10.1); CO2 25 mmol/L (21-32); CREATININE 0.8 mg/dL (0.7-1.3); GLUCOSE,RANDOM 101 mg/dL (74-106); SGOT/AST 18 U/L (15-37); SGPT/ALT 31 U/L (12-78); TOT PROT 6.6 g/dl (6.4-8.2)
[2018-01-22] MEDS: DULoxetine HCL 20 MG CAPSULE.DR (FP) PO SCH ×2 (09:55→21:08)
[2018-01-22] MEDS: predniSONE 5 MG TABLET (UD) PO SCH (09:55)
[2018-01-22] MEDS: MYCOPHENOLATE SODIUM 360 MG TABLET.DR PO SCH ×2 (09:55→21:02)
[2018-01-22] MEDS: PANTOPRAZOLE 20 MG TABLET (FP) PO SCH (09:55)
[2018-01-22] MEDS: hydrALAZINE HCL 25 MG TABLET (FP) PO SCH ×2 (09:55→21:02)
[2018-01-22] MEDS: CEFTRIAXONE IN IS-OSM DEXTROSE 2 GM/50 ML BAG IVPB SCH (09:56)
[2018-01-22] MEDS: HEPARIN NA (PORCINE) 5,000 UNITS/ML 1ML VIAL SQ SCH ×2 (09:56→21:02)
[2018-01-22] MEDS: TACROLIMUS ANHYDROUS 1 MG CAPSULE PO SCH ×2 (09:56→21:03)
[2018-01-22] MEDS ORDERED: INSULIN (NOVOLOG) ASPART 100 UNITS/ML 10ML VIAL ONE ×2 (10:41→21:01)
[2018-01-22 10:44] LABS: PLATELET ESTIMATE ADEQUATE
--- NOTE | 2018-01-22 12:21 | PN ---
Progress Note (short form) - Note Progress Note: PULMONARY Feels well. Denies shortness of breath or wheezing. +cough with white sputum. No fevers recorded. Last Vital Signs Temp Pulse Resp BP Pulse Ox 98.2 F 98 H 18 147/63 100 01/22/18 09:41 01/22/18 09:41 01/22/18 09:41 01/22/18 09:41 01/21/18 21:00 Gen: NAD at rest HEart: RRR Lung: basilar rales Abd: soft, nontender Ext: no edema CBC, BMP 01/22/18 07:30 01/22/18 07:30 Active Medications Acetaminophen (Tylenol -) 650 mg PO Q6H PRN PRN Reason: fever Last Admin: 01/19/18 10:47 Dose: 650 mg Albuterol Sulfate (Ventolin 0.083% Nebulizer Soln -) 1 amp NEB Q8H PRN PRN Reason: SHORT OF BREATH/WHEEZING Albuterol/Ipratropium (Duoneb -) 1 amp NEB RQID [facility] Last Admin: 01/22/18 08:30 Dose: 1 amp Docusate Sodium (Colace -) 100 mg PO BID PRN PRN Reason: CONSTIPATION Last Admin: 01/19/18 10:48 Dose: 100 mg Duloxetine HCl (Cymbalta -) 20 mg PO BID [facility] Last Admin: 01/22/18 09:55 Dose: 20 mg Heparin Sodium (Porcine) (Heparin -) 5,000 unit SQ BID [facility] Last Admin: 01/22/18 09:56 Dose: 5,000 unit Hydralazine HCl (Apresoline -) 25 mg PO BID [facility] Last Admin: 01/22/18 09:55 Dose: 25 mg CEFTRIAXONE IN IS-OSM DEXTROSE (Ceftriaxone 2 Gm-D5w Bag) 2 gm in 50 mls @ 100 mls/hr IVPB DAILY [facility] Last Admin: 01/22/18 09:56 Dose: 100 mls/hr Insulin Aspart (Novolog Vial Sliding Scale -) 1 vial SQ ACHS [facility] PRN Reason: Protocol Last Admin: 01/22/18 11:39 Dose: 7 units Insulin Detemir (Levemir Vial) 26 units SQ AM [facility] Last Admin: 01/22/18 06:20 Dose: Not Given Insulin Detemir (Levemir Vial) 5 units SQ HS [facility] Last Admin: 01/21/18 21:31 Dose: 5 units Mycophenolate Sodium (Mycophenolic Acid) 360 mg PO BID [facility] Last Admin: 01/22/18 09:55 Dose: 360 mg Pantoprazole Sodium (Protonix -) 20 mg PO DAILY [facility] Last Admin: 01/22/18 09:55 Dose: 20 mg Prednisone (Deltasone -) 5 mg PO DAILY [facility] Last Admin: 01/22/18 09:55 Dose: 5 mg Tacrolimus (Prograf) 1 mg PO BID [facility] Last Admin: 01/22/18 09:56 Dose: 1 mg A/P Pneumonia Atelectasis Right Rib Fractures s/p fall CAD s/p CABG HTN DM Renal Transplant - continue antibiotics - incentive spirometry - inhaled bronchodilators - O2 as needed - DVT prophylaxis
--- NOTE | 2018-01-22 12:23 | PN ---
Progress Note, Physician Chief Complaint: Fall, Multiple rib fx, Pneumonia History of Present Illness: NAD, in bed, pleasantly confused seen by Nephrology and endocrinology -IV abx - Current Medication List Current Medications: Active Medications Acetaminophen (Tylenol -) 650 mg PO Q6H PRN PRN Reason: fever Last Admin: 01/19/18 10:47 Dose: 650 mg Albuterol Sulfate (Ventolin 0.083% Nebulizer Soln -) 1 amp NEB Q8H PRN PRN Reason: SHORT OF BREATH/WHEEZING Albuterol/Ipratropium (Duoneb -) 1 amp NEB RQID [facility] Last Admin: 01/22/18 08:30 Dose: 1 amp Docusate Sodium (Colace -) 100 mg PO BID PRN PRN Reason: CONSTIPATION Last Admin: 01/19/18 10:48 Dose: 100 mg Duloxetine HCl (Cymbalta -) 20 mg PO BID [facility] Last Admin: 01/22/18 09:55 Dose: 20 mg Heparin Sodium (Porcine) (Heparin -) 5,000 unit SQ BID [facility] Last Admin: 01/22/18 09:56 Dose: 5,000 unit Hydralazine HCl (Apresoline -) 25 mg PO BID [facility] Last Admin: 01/22/18 09:55 Dose: 25 mg CEFTRIAXONE IN IS-OSM DEXTROSE (Ceftriaxone 2 Gm-D5w Bag) 2 gm in 50 mls @ 100 mls/hr IVPB DAILY [facility] Last Admin: 01/22/18 09:56 Dose: 100 mls/hr Insulin Aspart (Novolog Vial Sliding Scale -) 1 vial SQ ACHS [facility] PRN Reason: Protocol Last Admin: 01/22/18 11:39 Dose: 7 units Insulin Detemir (Levemir Vial) 26 units SQ AM [facility] Last Admin: 01/22/18 06:20 Dose: Not Given Insulin Detemir (Levemir Vial) 5 units SQ HS [facility] Last Admin: 01/21/18 21:31 Dose: 5 units Mycophenolate Sodium (Mycophenolic Acid) 360 mg PO BID [facility] Last Admin: 01/22/18 09:55 Dose: 360 mg Pantoprazole Sodium (Protonix -) 20 mg PO DAILY [facility] Last Admin: 01/22/18 09:55 Dose: 20 mg Prednisone (Deltasone -) 5 mg PO DAILY [facility] Last Admin: 01/22/18 09:55 Dose: 5 mg Tacrolimus (Prograf) 1 mg PO BID [facility] Last Admin: 01/22/18 09:56 Dose: 1 mg - Objective Vital Signs: Vital Signs Temperature 98.2 F 01/22/18 09:41 Pulse Rate 98 H 01/22/18 09:41 Respiratory Rate 18 01/22/18 09:41 Blood Pressure 147/63 01/22/18 09:41 O2 Sat by Pulse Oximetry (%) 100 01/21/18 21:00 Constitutional: Yes: Well Nourished, No Distress, Calm Cardiovascular: Yes: Regular Rate and Rhythm Respiratory: Yes: Regular Gastrointestinal: Yes: Normal Bowel Sounds, Soft Neurological: Yes: Alert, Pre-Existing Deficit Psychiatric: Yes: Alert Labs: CBC, BMP 01/22/18 07:30 01/22/18 07:30 INR, PTT INR 0.99 (0.82-1.09) 01/18/18 19:10 Problem List - Problems (1) Fall Code(s): W19.XXXA - UNSPECIFIED FALL, INITIAL ENCOUNTER Qualifiers: Encounter type: initial encounter Qualified Code(s): W19.XXXA - Unspecified fall, initial encounter (2) Multiple fractures of ribs of right side Assessment/Plan: -confirmed by CXR and CT chest -pain management Code(s): S22.41XA - MULTIPLE FRACTURES OF RIBS, RIGHT SIDE, INIT FOR CLOS FX Qualifiers: Encounter type: initial encounter Fracture type: closed Qualified Code(s) : S22.41XA - Multiple fractures of ribs, right side, initial encounter for closed fracture (3) PNA (pneumonia) Assessment/Plan: -IV abx---> change to PO and discharge as per ID -ID consult on board -acetaminophen for fever over 100.0F Code(s): J18.9 - PNEUMONIA, UNSPECIFIED ORGANISM (4) IDDM (insulin dependent diabetes mellitus) Assessment/Plan: -last A1c at 9.0 -on insulin -endocrinology consult -BGM -diabetic diet Code(s): E11.9 - TYPE 2 DIABETES MELLITUS WITHOUT COMPLICATIONS; Z79.4 - MCC (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 OF 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 Physical therapy DVT/GI prophylaxis -discharge once changed to PO abx with Homecare services
--- NOTE | 2018-01-22 13:37 | PN ---
Progress Note, Physician History of Present Illness: OOB in wheelchair C/O cough No c/o chest pain/ dyspnea Temps down Afebrile - Current Medication List Current Medications: Active Medications Acetaminophen (Tylenol -) 650 mg PO Q6H PRN PRN Reason: fever Last Admin: 01/19/18 10:47 Dose: 650 mg Albuterol Sulfate (Ventolin 0.083% Nebulizer Soln -) 1 amp NEB Q8H PRN PRN Reason: SHORT OF BREATH/WHEEZING Albuterol/Ipratropium (Duoneb -) 1 amp NEB RQID [facility] Last Admin: 01/22/18 08:30 Dose: 1 amp Docusate Sodium (Colace -) 100 mg PO BID PRN PRN Reason: CONSTIPATION Last Admin: 01/19/18 10:48 Dose: 100 mg Duloxetine HCl (Cymbalta -) 20 mg PO BID [facility] Last Admin: 01/22/18 09:55 Dose: 20 mg Heparin Sodium (Porcine) (Heparin -) 5,000 unit SQ BID [facility] Last Admin: 01/22/18 09:56 Dose: 5,000 unit Hydralazine HCl (Apresoline -) 25 mg PO BID [facility] Last Admin: 01/22/18 09:55 Dose: 25 mg CEFTRIAXONE IN IS-OSM DEXTROSE (Ceftriaxone 2 Gm-D5w Bag) 2 gm in 50 mls @ 100 mls/hr IVPB DAILY [facility] Last Admin: 01/22/18 09:56 Dose: 100 mls/hr Insulin Aspart (Novolog Vial Sliding Scale -) 1 vial SQ ACHS [facility] PRN Reason: Protocol Last Admin: 01/22/18 11:39 Dose: 7 units Insulin Detemir (Levemir Vial) 26 units SQ AM [facility] Last Admin: 01/22/18 06:20 Dose: Not Given Insulin Detemir (Levemir Vial) 5 units SQ HS [facility] Last Admin: 01/21/18 21:31 Dose: 5 units Mycophenolate Sodium (Mycophenolic Acid) 360 mg PO BID [facility] Last Admin: 01/22/18 09:55 Dose: 360 mg Pantoprazole Sodium (Protonix -) 20 mg PO DAILY [facility] Last Admin: 01/22/18 09:55 Dose: 20 mg Prednisone (Deltasone -) 5 mg PO DAILY [facility] Last Admin: 01/22/18 09:55 Dose: 5 mg Tacrolimus (Prograf) 1 mg PO BID [facility] Last Admin: 01/22/18 09:56 Dose: 1 mg - Objective Vital Signs: Vital Signs Temperature 98.2 F 01/22/18 09:41 Pulse Rate 98 H 01/22/18 09:41 Respiratory Rate 18 01/22/18 09:41 Blood Pressure 147/63 01/22/18 09:41 O2 Sat by Pulse Oximetry (%) 98 01/22/18 09:41 Constitutional: Yes: No Distress Eyes: Yes: Conjunctiva Clear Cardiovascular: Yes: Regular Rate and Rhythm, S1, S2 Respiratory: Yes: Diminished Gastrointestinal: Yes: Normal Bowel Sounds, Soft. No: Tenderness Edema: Yes Labs: CBC, BMP 01/22/18 07:30 01/22/18 07:30 INR, PTT INR 0.99 (0.82-1.09) 01/18/18 19:10 Assessment/Plan Fever- improved IDDM S/P renal transplant Continue ceftriaxone x 24hr
--- NOTE | 2018-01-22 18:30 | PN ---
Progress Note (short form) - Note Progress Note: Pneumonia Atelectasis Right Rib Fractures s/p fall CAD s/p CABG HTN DM Renal Transplant Current Medications Acetaminophen (Tylenol -) 650 mg PO Q6H PRN PRN Reason: fever Last Admin: 01/19/18 10:47 Dose: 650 mg Albuterol Sulfate (Ventolin 0.083% Nebulizer Soln -) 1 amp NEB Q8H PRN PRN Reason: SHORT OF BREATH/WHEEZING Albuterol/Ipratropium (Duoneb -) 1 amp NEB RQID [facility] Last Admin: 01/22/18 12:05 Dose: 1 amp Docusate Sodium (Colace -) 100 mg PO BID PRN PRN Reason: CONSTIPATION Last Admin: 01/19/18 10:48 Dose: 100 mg Duloxetine HCl (Cymbalta -) 20 mg PO BID [facility] Last Admin: 01/22/18 09:55 Dose: 20 mg Heparin Sodium (Porcine) (Heparin -) 5,000 unit SQ BID [facility] Last Admin: 01/22/18 09:56 Dose: 5,000 unit Hydralazine HCl (Apresoline -) 25 mg PO BID [facility] Last Admin: 01/22/18 09:55 Dose: 25 mg CEFTRIAXONE IN IS-OSM DEXTROSE (Ceftriaxone 2 Gm-D5w Bag) 2 gm in 50 mls @ 100 mls/hr IVPB DAILY [facility] Last Admin: 01/22/18 09:56 Dose: 100 mls/hr Insulin Aspart (Novolog Vial Sliding Scale -) 1 vial SQ ACHS [facility] PRN Reason: Protocol Last Admin: 01/22/18 16:47 Dose: 9 units Insulin Detemir (Levemir Vial) 26 units SQ AM [facility] Last Admin: 01/22/18 06:20 Dose: Not Given Insulin Detemir (Levemir Vial) 5 units SQ HS [facility] Last Admin: 01/21/18 21:31 Dose: 5 units Mycophenolate Sodium (Mycophenolic Acid) 360 mg PO BID [facility] Last Admin: 01/22/18 09:55 Dose: 360 mg Pantoprazole Sodium (Protonix -) 20 mg PO DAILY [facility] Last Admin: 01/22/18 09:55 Dose: 20 mg Prednisone (Deltasone -) 5 mg PO DAILY [facility] Last Admin: 01/22/18 09:55 Dose: 5 mg Tacrolimus (Prograf) 1 mg PO BID [facility] Last Admin: 01/22/18 09:56 Dose: 1 mg Last Vital Signs Temp Pulse Resp BP Pulse Ox 97.8 F 118 H 20 107/63 98 01/22/18 14:16 01/22/18 14:16 01/22/18 14:16 01/22/18 14:16 01/22/18 09:41 sitting in w/c in the hallway alert in nad Lungs clear Heart reg Abd soft nontender ext no edema speaks freely in japanese IMP- stable renal Plan- same rx
[2018-01-22] MEDS ORDERED: INSULIN DETEMIR 100 UNITS/ML MDV SQ ONE (21:00)
[2018-01-22] MEDS: ACETAMINOPHEN 325 MG TABLET (FP) PO PRN (21:02)
[2018-01-23] MEDS: INSULIN SLIDING SCALE (NOVOLOG) 1 VIAL SQ SCH ×3 (06:19→17:09)
[2018-01-23 07:26] LABS: HEMATOCRIT 35.3 % (35.4-49); HEMOGLOBIN 11.8 GM/dL (11.7-16.9); MCH 29.8 pg (25.7-33.7); MCHC 33.5 g/dl (32.0-35.9); MEAN CELL VOLUME 89.1 fl (80-96); MEAN PLT VOLUME 8.2 fl (7.5-11.1); PLATELET COUNT 288 K/MM3 (134-434); RBC 3.96 M/mm3 (4.00-5.60); RDW 15.2 % (11.9-15.9); WHITE BLOOD COUNT 10.5 K/mm3 (4.0-10.0)
[2018-01-23] MEDS: ALBUTEROL SO4 2.5/IPRATROPIUM 0.5 INH SOL 3 ML VIAL.NEB. NEB SCH (07:39)
[2018-01-23 07:43] LABS: CHLORIDE 104 mmol/L (98-107); SODIUM 136 mmol/L (136-145)
[2018-01-23 07:54] LABS: ALBUMIN 3.2 g/dl (3.4-5.0); ALK PHOS 79 U/L (45-117); ANION GAP 7 (8-16); BILIRUBIN,TOTAL 0.3 mg/dL (0.2-1.0); BLOOD UREA NITROGEN 34 mg/dL (7-18); CALCIUM 8.6 mg/dL (8.5-10.1); CO2 25 mmol/L (21-32); GLUCOSE,RANDOM 94 mg/dL (74-106); SGPT/ALT 25 U/L (12-78); TOT PROT 6.4 g/dl (6.4-8.2)
[2018-01-23 08:03] LABS: POTASSIUM 4.4 mmol/L (3.5-5.1); SGOT/AST 15 U/L (15-37)
--- NOTE | 2018-01-23 08:53 | DS ---
Physical Examination Vital Signs: Vital Signs Temperature 97.9 F 01/23/18 06:00 Pulse Rate 87 01/23/18 06:00 Respiratory Rate 20 01/23/18 06:00 Blood Pressure 152/55 01/23/18 06:00 O2 Sat by Pulse Oximetry (%) 98 01/22/18 21:00 Findings/Remarks: feels better Cardiovascular: Yes: Regular Rate and Rhythm Respiratory: Yes: Regular, CTA Bilaterally Gastrointestinal: Yes: Normal Bowel Sounds, Soft Labs: CBC, BMP 01/23/18 06:35 Discharge Summary Reason For Visit: FALL MULTIPLE FRACTURES OF RIBSANNABI Current Active Problems Dehydration (Acute) Fall (Acute) Fever (Acute) MDRO (multiple drug resistant organisms) resistance (Acute) Multiple fractures of ribs of right side (Acute) PNA (pneumonia) (Acute) Ribs, multiple fractures (Acute) Trauma, blunt (Acute) IDDM (insulin dependent diabetes mellitus) (Chronic) Kidney transplant recipient (Chronic) Type 2 diabetes mellitus with diabetic polyneuropathy (Chronic) Hospital Course: 77 M with PMHx of HTN, DM2, CAD, CA (s/p stents/CABG), HLD, ESRD (on immunosuppressants, kidney transplant 2008), who was sent by Dr. Villela for admission s/p fall for possible rib cage fracture. Patient states that he slipped in the shower, witnessed fall. Denies loc. Patient is currently complaining of posterior right rib cage pain. - Past Medical History Cardiovascular: Yes: CAD (CABG), HTN, Other (PAD, heel osteo in 04/05) Renal/: Yes: Renal Failure, Renal Inusuff, Hemodialysis (in past prior to renal transplant 2008), Other (S/P Kidney tranplant 2008. 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) Endocrine: Yes: Diabetes Mellitus - Past Surgical History Past Surgical History: Yes: AV Fistula/Graft (right upper arm), CABG, Kidney Transplant (right 2008) - Problems (1) Fall Code(s): W19.XXXA - UNSPECIFIED FALL, INITIAL ENCOUNTER Qualifiers: Encounter type: initial encounter Qualified Code(s): W19.XXXA - Unspecified fall, initial encounter (2) Multiple fractures of ribs of right side Assessment/Plan: -confirmed by CXR and CT chest -pain management Code(s): S22.41XA - MULTIPLE FRACTURES OF RIBS, RIGHT SIDE, INIT FOR CLOS FX Qualifiers: Encounter type: initial encounter Fracture type: closed Qualified Code(s) : S22.41XA - Multiple fractures of ribs, right side, initial encounter for closed fracture (3) PNA (pneumonia) Assessment/Plan: -IV abx---> change to PO and discharge as per ID -ID consult on board -acetaminophen for fever over 100.0F Code(s): J18.9 - PNEUMONIA, UNSPECIFIED ORGANISM (4) IDDM (insulin dependent diabetes mellitus) Assessment/Plan: -last A1c at 9.0 -on insulin -endocrinology consult -BGM -diabetic diet Code(s): E11.9 - TYPE 2 DIABETES MELLITUS WITHOUT COMPLICATIONS; Z79.4 - [employer] (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 OF 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 Physical therapy--SNF DVT/GI prophylaxis -discharge once changed to PO abx Condition: Improved - Instructions Disposition: CARE HOME FACILITY - Home Medications Comprehensive Discharge Medication List: Ambulatory Orders Amlodipine Besylate [Norvasc -] 10 mg PO DAILY 05/17/17 Aspirin [Jena Chewable Aspirin] 81 mg PO HS 05/17/17 Atorvastatin Ca [Lipitor] 10 mg PO HS 05/17/17 Carvedilol [Coreg -] 25 mg PO BID 05/17/17 Docusate Sodium [Colace -] 100 mg PO DAILY 05/17/17 Duloxetine HCl [Cymbalta] 20 mg PO BID 05/17/17 Mycophenolate Sodium [Myfortic] 360 mg PO BID 05/17/17 Tamsulosin HCl [Flomax] 0.4 mg PO HS 05/17/17 hydrALAZINE HCL [Apresoline -] 25 mg PO BID 05/17/17 predniSONE [Deltasone -] 5 mg PO DAILY 05/17/17 Acetaminophen [Tylenol .Regular Strength -] 650 mg PO Q4H PRN tablet 11/29/17 Tacrolimus 1 mg PO BID 11/29/17 Insulin Sliding Scale [Novolog Vial Sliding Scale -] 1 vial SQ ACHS units 11/30 Insulin (Levemir) [Levemir Vial] 8 units SQ HS ml 12/05/17 Insulin (Levemir) [Levemir Vial] 25 units SQ AM #0 ml 12/05/17 Albuterol 2.5/Ipratropium 0.5 [Duoneb -] 1 amp NEB RQID amp 01/23/18 Heparin - 5,000 unit SQ BID vial 01/23/18 Insulin (Levemir) [Levemir Vial] 5 units SQ HS ml 01/23/18 Insulin (Levemir) [Levemir Vial] 26 units SQ AM ml 01/23/18
[2018-01-23] MEDS ORDERED: PT OWN MED DRAWER 7, Y5N ONE ×2 (08:59→09:15)
[2018-01-23] MEDS ORDERED: INSULIN DETEMIR 100 UNITS/ML MDV SQ SCH (09:00)
[2018-01-23] MEDS: hydrALAZINE HCL 25 MG TABLET (FP) PO SCH (09:30)
[2018-01-23] MEDS: predniSONE 5 MG TABLET (UD) PO SCH (09:31)
[2018-01-23] MEDS: DULoxetine HCL 20 MG CAPSULE.DR (FP) PO SCH (09:31)
[2018-01-23] MEDS: MYCOPHENOLATE SODIUM 360 MG TABLET.DR PO SCH (09:31)
[2018-01-23] MEDS: HEPARIN NA (PORCINE) 5,000 UNITS/ML 1ML VIAL SQ SCH (09:31)
[2018-01-23] MEDS: PANTOPRAZOLE 20 MG TABLET (FP) PO SCH (09:32)
[2018-01-23] MEDS: TACROLIMUS ANHYDROUS 1 MG CAPSULE PO SCH (09:32)
--- NOTE | 2018-01-23 10:03 | PN ---
Progress Note, Physician Chief Complaint: ID Complains of severe rib pains No fever - Current Medication List Current Medications: Active Medications Acetaminophen (Tylenol -) 650 mg PO Q6H PRN PRN Reason: fever Last Admin: 01/22/18 21:02 Dose: 650 mg Albuterol/Ipratropium (Duoneb -) 1 amp NEB RQID [facility] Last Admin: 01/23/18 07:39 Dose: Not Given Docusate Sodium (Colace -) 100 mg PO BID PRN PRN Reason: CONSTIPATION Last Admin: 01/19/18 10:48 Dose: 100 mg Duloxetine HCl (Cymbalta -) 20 mg PO BID [facility] Last Admin: 01/23/18 09:31 Dose: 20 mg Heparin Sodium (Porcine) (Heparin -) 5,000 unit SQ BID [facility] Last Admin: 01/23/18 09:31 Dose: 5,000 unit Hydralazine HCl (Apresoline -) 25 mg PO BID [facility] Last Admin: 01/23/18 09:30 Dose: 25 mg CEFTRIAXONE IN IS-OSM DEXTROSE (Ceftriaxone 2 Gm-D5w Bag) 2 gm in 50 mls @ 100 mls/hr IVPB DAILY [facility] Last Admin: 01/22/18 09:56 Dose: 100 mls/hr Insulin Aspart (Novolog Vial Sliding Scale -) 1 vial SQ ACHS [facility] PRN Reason: Protocol Last Admin: 01/23/18 06:19 Dose: Not Given Insulin Detemir (Levemir Vial) 5 units SQ HS [facility] Last Admin: 01/22/18 21:09 Dose: 5 units Insulin Detemir (Levemir Vial) 26 units SQ DAILY@0900 [facility] Last Admin: 01/23/18 09:30 Dose: 26 units Mycophenolate Sodium (Mycophenolic Acid) 360 mg PO BID [facility] Last Admin: 01/23/18 09:31 Dose: 360 mg Pantoprazole Sodium (Protonix -) 20 mg PO DAILY [facility] Last Admin: 01/23/18 09:32 Dose: 20 mg Prednisone (Deltasone -) 5 mg PO DAILY [facility] Last Admin: 01/23/18 09:31 Dose: 5 mg Tacrolimus (Prograf) 1 mg PO BID [facility] Last Admin: 01/23/18 09:32 Dose: 1 mg - Objective Vital Signs: Vital Signs Temperature 97.9 F 01/23/18 06:00 Pulse Rate 87 01/23/18 06:00 Respiratory Rate 20 01/23/18 06:00 Blood Pressure 152/55 01/23/18 06:00 O2 Sat by Pulse Oximetry (%) 98 01/22/18 21:00 Constitutional: Yes: Mild Distress HENT: Yes: WNL, Atraumatic Neck: Yes: Supple Cardiovascular: Yes: Regular Rate and Rhythm, S1, S2 Respiratory: Yes: WNL, Regular, CTA Bilaterally, Rales, Other (Rales RLL) Gastrointestinal: Yes: Soft. No: Tenderness Labs: CBC, BMP 01/23/18 06:35 01/23/18 06:35 INR, PTT INR 0.99 (0.82-1.09) 01/18/18 19:10 Problem List - Problems (1) Fever Code(s): R50.9 - FEVER, UNSPECIFIED (2) Multiple fractures of ribs of right side Code(s): S22.41XA - MULTIPLE FRACTURES OF RIBS, RIGHT SIDE, INIT FOR CLOS FX Qualifiers: Encounter type: initial encounter Fracture type: closed Qualified Code(s) : S22.41XA - Multiple fractures of ribs, right side, initial encounter for closed fracture (3) MDRO (multiple drug resistant organisms) resistance Code(s): Z16.35 - RESISTANCE TO MULTIPLE ANTIMICROBIAL DRUGS Assessment/Plan Laboratory Tests 01/23/18 01/23/18 06:35 06:35 WBC 10.5 H Hgb 11.8 Hct 35.3 L Plt Count 288 Creat Clearance w eGFR > 60 Assessment Rib fractures with pain today Atalectasis with Pneumonia Plan Could switch to oral antibiotic Levoflox 250mg daily 3 doses Erika SILVA
[2018-01-23] MEDS: CEFTRIAXONE IN IS-OSM DEXTROSE 2 GM/50 ML BAG IVPB SCH (10:37)
[2018-01-23 10:44] LABS: ANISOCYTOSIS 2+; MACROCYTOSIS 0; PLATELET ESTIMATE NORMAL
--- NOTE | 2018-01-23 11:07 | PN ---
Progress Note, Physician Chief Complaint: patient ready for discharge to SNF awake alert no fever - Current Medication List Current Medications: Active Medications Acetaminophen (Tylenol -) 650 mg PO Q6H PRN PRN Reason: fever Last Admin: 01/22/18 21:02 Dose: 650 mg Albuterol/Ipratropium (Duoneb -) 1 amp NEB RQID [facility] Last Admin: 01/23/18 07:39 Dose: Not Given Amoxicillin/Clavulanate Potassium (Augmentin - 875mg Tablet) 1 tab PO BID@0800, 1730 [facility] Docusate Sodium (Colace -) 100 mg PO BID PRN PRN Reason: CONSTIPATION Last Admin: 01/19/18 10:48 Dose: 100 mg Duloxetine HCl (Cymbalta -) 20 mg PO BID [facility] Last Admin: 01/23/18 09:31 Dose: 20 mg Heparin Sodium (Porcine) (Heparin -) 5,000 unit SQ BID [facility] Last Admin: 01/23/18 09:31 Dose: 5,000 unit Hydralazine HCl (Apresoline -) 25 mg PO BID [facility] Last Admin: 01/23/18 09:30 Dose: 25 mg Insulin Aspart (Novolog Vial Sliding Scale -) 1 vial SQ ACHS [facility] PRN Reason: Protocol Last Admin: 01/23/18 06:19 Dose: Not Given Insulin Detemir (Levemir Vial) 5 units SQ HS [facility] Last Admin: 01/22/18 21:09 Dose: 5 units Insulin Detemir (Levemir Vial) 26 units SQ DAILY@0900 [facility] Last Admin: 01/23/18 09:30 Dose: 26 units Mycophenolate Sodium (Mycophenolic Acid) 360 mg PO BID [facility] Last Admin: 01/23/18 09:31 Dose: 360 mg Pantoprazole Sodium (Protonix -) 20 mg PO DAILY [facility] Last Admin: 01/23/18 09:32 Dose: 20 mg Prednisone (Deltasone -) 5 mg PO DAILY [facility] Last Admin: 01/23/18 09:31 Dose: 5 mg Tacrolimus (Prograf) 1 mg PO BID [facility] Last Admin: 01/23/18 09:32 Dose: 1 mg - Objective Vital Signs: Vital Signs Temperature 97.9 F 01/23/18 06:00 Pulse Rate 87 01/23/18 06:00 Respiratory Rate 20 01/23/18 06:00 Blood Pressure 152/55 01/23/18 06:00 O2 Sat by Pulse Oximetry (%) 98 01/22/18 21:00 Constitutional: Yes: Calm Neck: Yes: Trachea Midline Cardiovascular: Yes: Regular Rate and Rhythm, S1, S2 Respiratory: Yes: CTA Bilaterally Gastrointestinal: Yes: Normal Bowel Sounds, Soft Edema: No Neurological: Yes: Alert, Oriented (to name and place) Labs: CBC, BMP 01/23/18 06:35 01/23/18 06:35 INR, PTT INR 0.99 (0.82-1.09) 01/18/18 19:10 Problem List - Problems (1) Fall Assessment/Plan: going to snf dvt ppx Code(s): W19.XXXA - UNSPECIFIED FALL, INITIAL ENCOUNTER Qualifiers: Encounter type: initial encounter Qualified Code(s): W19.XXXA - Unspecified fall, initial encounter (2) Fever Assessment/Plan: pna and atelectasis augment 875/125mg po bid for 4 days incentive spirometry Code(s): R50.9 - FEVER, UNSPECIFIED (3) Ribs, multiple fractures Assessment/Plan: pain control Code(s): S22.49XA - MULTIPLE FRACTURES OF RIBS, UNSP SIDE, INIT FOR CLOS FX (4) Kidney transplant recipient Assessment/Plan: tacrolimus and mycophenalote Code(s): Z94.0 - KIDNEY TRANSPLANT STATUS (5) Type 2 diabetes mellitus with diabetic polyneuropathy Assessment/Plan: on insulin per endocrine bgm sliding scale Code(s): E11.42 - TYPE 2 DIABETES MELLITUS WITH DIABETIC POLYNEUROPATHY Qualifiers:
--- NOTE | 2018-01-23 11:17 | PN ---
Progress Note (short form) - Note Progress Note: PULMONARY Feels well. Denies shortness of breath or wheezing. +cough with yellow sputum. No fevers recorded. Last Vital Signs Temp Pulse Resp BP Pulse Ox 97.9 F 87 20 152/55 98 01/23/18 06:00 01/23/18 06:00 01/23/18 06:00 01/23/18 06:00 01/22/18 21:00 Gen: NAD at rest HEart: RRR Lung: basilar rales Abd: soft, nontender Ext: no edema CBC, BMP 01/23/18 06:35 01/23/18 06:35 Active Medications Acetaminophen (Tylenol -) 650 mg PO Q6H PRN PRN Reason: fever Last Admin: 01/22/18 21:02 Dose: 650 mg Albuterol/Ipratropium (Duoneb -) 1 amp NEB RQID [facility] Last Admin: 01/23/18 07:39 Dose: Not Given Amoxicillin/Clavulanate Potassium (Augmentin - 875mg Tablet) 1 tab PO BID@0800, 1730 [facility] Docusate Sodium (Colace -) 100 mg PO BID PRN PRN Reason: CONSTIPATION Last Admin: 01/19/18 10:48 Dose: 100 mg Duloxetine HCl (Cymbalta -) 20 mg PO BID [facility] Last Admin: 01/23/18 09:31 Dose: 20 mg Heparin Sodium (Porcine) (Heparin -) 5,000 unit SQ BID [facility] Last Admin: 01/23/18 09:31 Dose: 5,000 unit Hydralazine HCl (Apresoline -) 25 mg PO BID [facility] Last Admin: 01/23/18 09:30 Dose: 25 mg Insulin Aspart (Novolog Vial Sliding Scale -) [address] [facility] PRN Reason: Protocol Last Admin: 01/23/18 06:19 Dose: Not Given Insulin Detemir (Levemir Vial) 5 units SQ HS [facility] Last Admin: 01/22/18 21:09 Dose: 5 units Insulin Detemir (Levemir Vial) 26 units SQ DAILY@0900 [facility] Last Admin: 01/23/18 09:30 Dose: 26 units Mycophenolate Sodium (Mycophenolic Acid) 360 mg PO BID [facility] Last Admin: 01/23/18 09:31 Dose: 360 mg Pantoprazole Sodium (Protonix -) 20 mg PO DAILY [facility] Last Admin: 01/23/18 09:32 Dose: 20 mg Prednisone (Deltasone -) 5 mg PO DAILY [facility] Last Admin: 01/23/18 09:31 Dose: 5 mg Tacrolimus (Prograf) 1 mg PO BID [facility] Last Admin: 01/23/18 09:32 Dose: 1 mg A/P Pneumonia Atelectasis Right Rib Fractures s/p fall CAD s/p CABG HTN DM Renal Transplant - complete antibiotics per ID - incentive spirometry - inhaled bronchodilators - O2 as needed - DVT prophylaxis - d/c planning in progress
--- NOTE | 2018-01-23 11:20 | PN ---
Progress Note, Physician Chief Complaint: patient ready for discharge to SNF awake alert no fever - Current Medication List Current Medications: Active Medications Acetaminophen (Tylenol -) 650 mg PO Q6H PRN PRN Reason: fever Last Admin: 01/22/18 21:02 Dose: 650 mg Albuterol/Ipratropium (Duoneb -) 1 amp NEB RQID [facility] Last Admin: 01/23/18 07:39 Dose: Not Given Amoxicillin/Clavulanate Potassium (Augmentin - 875mg Tablet) 1 tab PO BID@0800, 1730 [facility] Docusate Sodium (Colace -) 100 mg PO BID PRN PRN Reason: CONSTIPATION Last Admin: 01/19/18 10:48 Dose: 100 mg Duloxetine HCl (Cymbalta -) 20 mg PO BID [facility] Last Admin: 01/23/18 09:31 Dose: 20 mg Heparin Sodium (Porcine) (Heparin -) 5,000 unit SQ BID [facility] Last Admin: 01/23/18 09:31 Dose: 5,000 unit Hydralazine HCl (Apresoline -) 25 mg PO BID [facility] Last Admin: 01/23/18 09:30 Dose: 25 mg Insulin Aspart (Novolog Vial Sliding Scale -) 1 vial SQ ACHS [facility] PRN Reason: Protocol Last Admin: 01/23/18 06:19 Dose: Not Given Insulin Detemir (Levemir Vial) 5 units SQ HS [facility] Last Admin: 01/22/18 21:09 Dose: 5 units Insulin Detemir (Levemir Vial) 26 units SQ DAILY@0900 [facility] Last Admin: 01/23/18 09:30 Dose: 26 units Mycophenolate Sodium (Mycophenolic Acid) 360 mg PO BID [facility] Last Admin: 01/23/18 09:31 Dose: 360 mg Pantoprazole Sodium (Protonix -) 20 mg PO DAILY [facility] Last Admin: 01/23/18 09:32 Dose: 20 mg Prednisone (Deltasone -) 5 mg PO DAILY [facility] Last Admin: 01/23/18 09:31 Dose: 5 mg Tacrolimus (Prograf) 1 mg PO BID [facility] Last Admin: 01/23/18 09:32 Dose: 1 mg - Objective Vital Signs: Vital Signs Temperature 97.9 F 01/23/18 06:00 Pulse Rate 87 01/23/18 06:00 Respiratory Rate 20 01/23/18 06:00 Blood Pressure 152/55 01/23/18 06:00 O2 Sat by Pulse Oximetry (%) 98 01/22/18 21:00 Constitutional: Yes: Calm Cardiovascular: Yes: Regular Rate and Rhythm, S1, S2 Respiratory: Yes: CTA Bilaterally Gastrointestinal: Yes: Normal Bowel Sounds, Soft Edema: No Neurological: Yes: Alert, Oriented Labs: CBC, BMP 01/23/18 06:35 01/23/18 06:35 INR, PTT INR 0.99 (0.82-1.09) 01/18/18 19:10 Problem List - Problems (1) Fall Assessment/Plan: going to snf dvt ppx Code(s): W19.XXXA - UNSPECIFIED FALL, INITIAL ENCOUNTER Qualifiers: Encounter type: initial encounter Qualified Code(s): W19.XXXA - Unspecified fall, initial encounter (2) Fever Assessment/Plan: pna and atelectasis augment 875/125mg po bid for 5 days incentive spirometry Code(s): R50.9 - FEVER, UNSPECIFIED (3) Ribs, multiple fractures Assessment/Plan: pain control Code(s): S22.49XA - MULTIPLE FRACTURES OF RIBS, UNSP SIDE, INIT FOR CLOS FX (4) Kidney transplant recipient Assessment/Plan: tacrolimus and mycophenalote Code(s): Z94.0 - KIDNEY TRANSPLANT STATUS (5) Type 2 diabetes mellitus with diabetic polyneuropathy Assessment/Plan: on insulin per endocrine bgm sliding scale Code(s): E11.42 - TYPE 2 DIABETES MELLITUS WITH DIABETIC POLYNEUROPATHY Qualifiers:
[2018-01-23] MEDS ORDERED: INSULIN (NOVOLOG) ASPART 100 UNITS/ML 10ML VIAL ONE ×3 (12:01→17:07)
[2018-01-23] MEDS: AMOX TR/POT CLAV 875MG/125MG TABLETS (FP) PO SCH ×2 (12:03→17:10)
[2018-01-23 15:15] VITALS: BP 157/63; PULSE 90; TEMP 98.6
--- NOTE | 2018-01-23 15:18 | PN ---
Progress Note, Physician History of Present Illness: Pt seen and examined at bedside. He is awake and appears comfortable. He does get rib pain when he moves. - Current Medication List Current Medications: Active Medications Acetaminophen (Tylenol -) 650 mg PO Q6H PRN PRN Reason: fever Last Admin: 01/22/18 21:02 Dose: 650 mg Amoxicillin/Clavulanate Potassium (Augmentin - 875mg Tablet) 1 tab PO BID@0800, 1730 [facility] Last Admin: 01/23/18 12:03 Dose: 1 tab Docusate Sodium (Colace -) 100 mg PO BID PRN PRN Reason: CONSTIPATION Last Admin: 01/19/18 10:48 Dose: 100 mg Duloxetine HCl (Cymbalta -) 20 mg PO BID [facility] Last Admin: 01/23/18 09:31 Dose: 20 mg Heparin Sodium (Porcine) (Heparin -) 5,000 unit SQ BID [facility] Last Admin: 01/23/18 09:31 Dose: 5,000 unit Hydralazine HCl (Apresoline -) 25 mg PO BID [facility] Last Admin: 01/23/18 09:30 Dose: 25 mg Insulin Aspart (Novolog Vial Sliding Scale -) 1 vial SQ ACHS [facility] PRN Reason: Protocol Last Admin: 01/23/18 12:03 Dose: 3 units Insulin Detemir (Levemir Vial) 5 units SQ HS [facility] Last Admin: 01/22/18 21:09 Dose: 5 units Insulin Detemir (Levemir Vial) 26 units SQ DAILY@0900 [facility] Last Admin: 01/23/18 09:30 Dose: 26 units Mycophenolate Sodium (Mycophenolic Acid) 360 mg PO BID [facility] Last Admin: 01/23/18 09:31 Dose: 360 mg Pantoprazole Sodium (Protonix -) 20 mg PO DAILY [facility] Last Admin: 01/23/18 09:32 Dose: 20 mg Prednisone (Deltasone -) 5 mg PO DAILY [facility] Last Admin: 01/23/18 09:31 Dose: 5 mg Tacrolimus (Prograf) 1 mg PO BID [facility] Last Admin: 01/23/18 09:32 Dose: 1 mg - Objective Vital Signs: Vital Signs Temperature 98.5 F 01/23/18 09:00 Pulse Rate 93 H 01/23/18 09:00 Respiratory Rate 18 01/23/18 09:00 Blood Pressure 162/69 01/23/18 09:00 O2 Sat by Pulse Oximetry (%) 96 01/23/18 09:00 Constitutional: Yes: Calm Eyes: Yes: Conjunctiva Clear HENT: Yes: Atraumatic Neck: Yes: Supple Cardiovascular: Yes: S1, S2 Respiratory: Yes: CTA Bilaterally Gastrointestinal: Yes: Normal Bowel Sounds, Soft Genitourinary: Yes: Other (graft soft and non tender) Musculoskeletal: Yes: WNL Extremities: Yes: WNL Edema: No Integumentary: Yes: WNL Neurological: Yes: Confusion Labs: CBC, BMP 01/23/18 06:35 01/23/18 06:35 INR, PTT INR 0.99 (0.82-1.09) 01/18/18 19:10 Problem List - Problems (1) Fall Code(s): W19.XXXA - UNSPECIFIED FALL, INITIAL ENCOUNTER Qualifiers: Encounter type: initial encounter Qualified Code(s): W19.XXXA - Unspecified fall, initial encounter (2) Fever Code(s): R50.9 - FEVER, UNSPECIFIED (3) IDDM (insulin dependent diabetes mellitus) Code(s): E11.9 - TYPE 2 DIABETES MELLITUS WITHOUT COMPLICATIONS; Z79.4 - TIMBER INSPECTOR (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 OF INSULIN (4) Kidney transplant recipient Code(s): Z94.0 - KIDNEY TRANSPLANT STATUS Assessment/Plan Current Medications Generic Name Dose Route Start Last Admin Trade Name Freq PRN Reason Stop Dose Admin Acetaminophen 650 mg 01/18/18 19:07 01/22/18 21:02 Tylenol - PO 650 mg Q6H PRN Administration fever Amoxicillin/Clavulanate Potassium 1 tab 01/23/18 11:00 01/23/18 12:03 Augmentin - 875mg Tablet PO 1 tab BID@0800,1730 [facility] Administration Docusate Sodium 100 mg 01/18/18 11:45 01/19/18 10:48 Colace - PO 100 mg BID PRN Administration CONSTIPATION Duloxetine HCl 20 mg 01/18/18 10:00 01/23/18 09:31 Cymbalta - PO 20 mg BID [facility] Administration Heparin Sodium (Porcine) 5,000 unit 01/20/18 11:15 01/23/18 09:31 Heparin - SQ 5,000 unit BID [facility] Administration Hydralazine HCl 25 mg 01/18/18 10:00 01/23/18 09:30 Apresoline - PO 25 mg BID [facility] Administration Insulin Aspart 1 vial 01/18/18 07:00 01/23/18 12:03 Novolog Vial Sliding Scale - SQ 3 units ACHS [facility] Administration Protocol Insulin Detemir 5 units 01/21/18 22:00 01/22/18 21:09 Levemir Vial SQ 5 units HS [facility] Administration Insulin Detemir 26 units 01/23/18 09:00 01/23/18 09:30 Levemir Vial SQ 26 units DAILY@0900 [facility] Administration Mycophenolate Sodium 360 mg 01/18/18 10:00 01/23/18 09:31 Mycophenolic Acid PO 360 mg BID [facility] Administration Pantoprazole Sodium 20 mg 01/21/18 11:45 01/23/18 09:32 Protonix - PO 20 mg DAILY [facility] Administration Prednisone 5 mg 01/19/18 16:45 01/23/18 09:31 Deltasone - PO 5 mg DAILY [facility] Administration Tacrolimus 1 mg 01/19/18 16:45 01/23/18 09:32 Prograf PO 1 mg BID [facility] Administration Impression 1. CKD 2. kidney transplant 3. DM 4. hx of syncope 5. HTN 6. hyperlipidemia 7. dehydration 8. s/p fall Plan - will see pt in office - renal function stable for now - cont prograf at current dose - will need better blood sugar control - will follow Dr Perez
== END 2018-01-23 18:59 | DRG 183 ==
LOC: JER 21:44 → JERBED 01-18 00:27 → J6S 01-18 01:25
PROVIDERS: ADMIT Family Medicine; ATTEND Family Medicine
DX: S22.41XA Multiple fractures of ribs, right side, initial encounter for closed fracture (principal); J18.9 Pneumonia, unspecified organism; Z94.0 Kidney transplant status; J98.11 Atelectasis; I25.10 Atherosclerotic heart disease of native coronary artery without angina pectoris; I25.2 Old myocardial infarction; Z95.1 Presence of aortocoronary bypass graft; Z79.4 Long term (current) use of insulin; W01.0XXA Fall on same level from slipping, tripping and stumbling without subsequent striking against object, initial encounter; Y93.E1 Activity, personal bathing and showering; Y92.091 Bathroom in other non-institutional residence as the place of occurrence of the external cause; Y99.8 Other external cause status; E78.5 Hyperlipidemia, unspecified; I35.0 Nonrheumatic aortic (valve) stenosis; E11.42 Type 2 diabetes mellitus with diabetic polyneuropathy; E86.0 Dehydration; I10 Essential (primary) hypertension
CPT/HCPCS: 36415; 70450-TC; 71045-TC-FY; 71250-TC; 72125-TC; 80053; 81003; 82550; 82947; 82962; 84484; 85025; 85027; 85610; 85730; 86850; 86900; 86901; 87086; 93005; 93010; 93306-TC; 94640; 97116-GP; 97161-GP; 99282-25; J1644

== ENCOUNTER 2018-02-08 12:53 | Inpatient (IN) | payer OTHER ==
[2018-02-08] MEDS ORDERED: RAPID SEQUENCE INTUBATION KIT NR ONE ×2 (13:06→13:08)
[2018-02-08 13:20] VITALS: BMI 24.2
--- NOTE | 2018-02-08 13:24 | PDOC ---
Attending Attestation - HPI HPI: 02/08/18 17:10 The patient is 77 year old male with history of HTN, DM, CAD s/p AL, ESRD s/p nonworking RUE AV fistula s/p renal transplant 2009 on immunosuppresants brought in by EMS for loss of consciousness and unresponsive that began approximately 1 hour prior to ED arrival. Per EMS, the patient was doing physical therapy at home when he had an episode of drop syncope. EMS was activated. Since that time, the patient has been unresponsive. Patient is unable to provide remainder of history secondary to clinical condition. - Physicial Exam PE: 02/08/18 17:10 GENERAL: unresponsive, agonal breathing HEAD: No signs of trauma EYES: L pupil 4mm, R pupil 2mm, roving eye movement NECK: No lymphadenopathy, JVD, or masses LUNGS: Breath sounds equal, clear to auscultation bilaterally. No wheezes, and no crackles HEART: nahomy but regular to 39, normal S1 and S2, no murmurs, rubs or gallops ABDOMEN: Soft, normoactive bowel sounds, non distended EXTREMITIES: moving all extremities spontaneously, at one point crossing fingers into each other across his chest NEUROLOGICAL: Unable to assess SKIN: Warm, Dry, normal turgor, no rashes or lesions noted. Documentation prepared by Ligia Canchola, acting as medical technicians for Leidy Ham MD. <Ligia Canchola - Last Filed: 02/08/18 17:10> - Resident Resident Name: MoisésShante - ED Attending Attestation I have performed the following: I have examined & evaluated the patient, The case was reviewed & discussed with the resident, I agree w/resident's findings & plan, Exceptions are as noted - Critical Care Time Total Critical Care Time: 180 Critical Care Statement: The care of this patient involved high complexity decision making to prevent further life threatening deterioration of the patient 's condition and/or to evaluate & treat vital organ system(s) failure or risk of failure. - Medical Decision Making 02/08/18 16:14 77-year-old male multiple medical problems including renal transplant presents to the emergency Department with altered mental status. Per EMS the patient was participating in home physical therapy and collapsed. Fingerstick in the field was 150. In ED, pt initially hypertensive to 190/110, with bradycardia to 20s- 30s. Pt given atropine with good response in HR. Patient completely unresponsive with ansicoria (L>R, 4mm compared to 2mm) with roving eye movements. Code agosto activated, CTH negative for acute pathology. Upon return to ED, BP dropped to 60s/40s, found to be hypothermic to 95 rectally. Pt covered empirically with Vanc/Zosyn and 2nd liter NS ordered. Peripheral dopamine was initiated, while a L IJ CVC was placed under US guidance. Levophed has been ordered. Daughter Maritza (HCP: [phone]) was updated at the bedside , left ED to take care of ill daughter. BP now 88/70, CXR to confirm central line has been done, pending images/read. Thus far, UA & CXR negative for infection. Other than elevated BUN to 42, labs wnl. Lactate pending. Given hypothermia, hypotension, acute AMS in setting of immunocompromised pt, will perform an LP. ICU is being contacted for admission. Pt's primary is Dr. Palacios, currently admitting to hospitalist. Case has been discussed with Dr. Maguire and SO[employer]ING T[employer] WORKER Darrick who accept the patient for admission. 02/08/18 18:30 Consent for LP was obtained over the phone from pt's HCP/daughter Maritza. LP completed with no complications. Opening pressure elevated at 29. Fluid clear, CSF studies ordered. BP improved with MAPs in the 60s/70s. Dopamine off, levophed was titrated up to 20mcg, but titrated down now to 10mcg. Pt accepted to ICU, bed available, nurse to call report. <Leidy Ham - Last Filed: 02/08/18 22:16>
--- NOTE | 2018-02-08 13:40 | PDOC ---
History of Present Illness - General Chief Complaint: CVA/TIA Stated Complaint: CVA/TIA Time Seen by Provider: 02/08/18 13:23 History Source: EMS - History of Present Illness Initial Comments: 02/08/18 13:51 HPI obtained from daughter Maritza (HCP: [phone]) and paperwork from [facility] where patient was discharged on 02/06. 77 y.o. male with PMH of HTN, IDDM, CAD s/p AK, ESRD with renal transplant (2008 , on immunosuppressant) BIBEMS for unwitnessed LOC and unresponsiveness. As per EMS patient was at home doing PT when he collapsed. NKDA Surgical: renal transplant Past History - Past Medical History Allergies/Adverse Reactions: Allergies Allergy/AdvReac Type Severity Reaction Status Date / Time No Known Drug Allergies Allergy Verified 02/08/18 13:02 Home Medications: Ambulatory Orders Amlodipine Besylate [Norvasc -] 10 mg PO DAILY 05/17/17 Aspirin [Jena Chewable Aspirin] 81 mg PO HS 05/17/17 Atorvastatin Ca [Lipitor] 10 mg PO HS 05/17/17 Carvedilol [Coreg -] 25 mg PO BID 05/17/17 Duloxetine HCl [Cymbalta] 20 mg PO BID 05/17/17 Tamsulosin HCl [Flomax] 0.4 mg PO HS 05/17/17 predniSONE [Deltasone -] 5 mg PO DAILY 05/17/17 Acetaminophen [Tylenol .Regular Strength -] 650 mg PO Q4H PRN tablet 11/29/17 Tacrolimus 1 mg PO BID 11/29/17 Insulin (Levemir) [Levemir Vial] 8 units SQ HS ml 12/05/17 Insulin (Levemir) [Levemir Vial] 25 units SQ AM #0 ml 12/05/17 Docusate Sodium [Colace -] 100 mg PO BID PRN capsule 01/23/18 Heparin - 5,000 unit SQ BID vial 01/23/18 Insulin (Levemir) [Levemir Vial] 5 units SQ HS ml 01/23/18 Insulin (Levemir) [Levemir Vial] 26 units SQ DAILY@0900 ml 01/23/18 Insulin Sliding Scale [Novolog Vial Sliding Scale -] 1 vial SQ ACHS units 01/23 Mycophenolate Sodium [Mycophenolic Acid] 360 mg PO BID tablet. 01/23/18 hydrALAZINE HCL [Apresoline -] 25 mg PO BID tablet 01/23/18 predniSONE [Deltasone -] 5 mg PO DAILY tablet 01/23/18 Albuterol 2.5/Ipratropium 0.5 [Duoneb -] 1 amp NEB QID 02/08/18 Anemia: No Asthma: No Cancer: No Cardiac Disorders: Yes CVA: No COPD: No CHF: Yes Dementia: No Diabetes: Yes (iddm) Dialysis: Yes (stopped 2008) GI Disorders: No Disorders: No HTN: Yes Hypercholesterolemia: Yes Liver Disease: No Seizures: No Thyroid Disease: No - Surgical History Abdominal Surgery: No Appendectomy: No Cardiac Surgery: Yes (open heart surgery) Cholecystectomy: No Lung Surgery: No Neurologic Surgery: No Orthopedic Surgery: No - Immunization History Immunization Up to Date: Yes - Suicide/Smoking/Psychosocial Hx Smoking Status: No Smoking History: Never smoked Have you smoked in the past 12 months: No Number of Cigarettes Smoked Daily: 0 Information on smoking cessation initiated: No Hx Alcohol Use: No Drug/Substance Use Hx: No Substance Use Type: None Hx Substance Use Treatment: No *Physical Exam - Vital Signs Last Vital Signs Temp Pulse Resp BP Pulse Ox 47 L 16 191/77 100 02/08/18 13:03 02/08/18 13:03 02/08/18 13:03 02/08/18 13:03 - Physical Exam Comments: 02/09/18 08:11 GENERAL: unresponsive, intermittently moves all 4 extremities HEAD: No appreciable lacerations, lesions, hematoma EYES: aniscoria: L pupil 4mm, R pupil 2mm, roving eye movement NECK: No lymphadenopathy, JVD, or masses LUNGS: Breath sounds equal, clear to auscultation bilaterally. No wheezes, and no crackles HEART: S1/S2, no M/R/G ops ABDOMEN: Soft, normoactive bowel sounds, non distended NEUROLOGICAL: Unable to assess SKIN: Warm, Dry, normal turgor, no rashes or lesions noted. ED Treatment Course - LABORATORY CBC & Chemistry Diagram: 02/09/18 06:10 02/09/18 06:10 Medical Decision Making - Medical Decision Making 02/08/18 13:55 77 y.o. male BIBEMS as medical code. As per EMS, BS 150, HR 20's, BP 190's/110' s. Atropine for HR. CT scan negative for acute bleed/ischemia. Dopamine, Levophed for hypotension with good response SBP 140's. IV access via L IJ central line. At this time uncertain source of disease. UA negative for infection, CXR shows no infiltrate, consolidation, fluid. LP obtained (phone consent from patient's HCP, Maritza Abel) - results pending. Will admit patient to ICU for BP support and further evaluation of infection. Patient accepted by Dr. Lim. Case d/w Dr. Moss (Resident) ICU. Patient's BP 155/41 (MAP 79) . Will continue to monitor while in ED. *DC/Admit/Observation/Transfer Diagnosis at time of Disposition: Collapse - Referrals - Patient Instructions - Post Discharge Activity
[2018-02-08 13:51] LABS: BASO % 0.8 % (0-2.0); EOS % 3.1 % (0-4.5); HEMATOCRIT 40.3 % (35.4-49); HEMOGLOBIN 13.1 GM/dL (11.7-16.9); LYMPH % 31.8 % (8-40); MCH 29.1 pg (25.7-33.7); MCHC 32.5 g/dl (32.0-35.9); MEAN CELL VOLUME 89.8 fl (80-96); MEAN PLT VOLUME 8.4 fl (7.5-11.1); MONO % 8.1 % (3.8-10.2); NEUT % 56.2 % (42.8-82.8); PLATELET COUNT 266 K/MM3 (134-434); RBC 4.49 M/mm3 (4.00-5.60); RDW 16.3 % (11.9-15.9); WHITE BLOOD COUNT 12.7 K/mm3 (4.0-10.0)
[2018-02-08] MEDS: SODIUM CHLORIDE 1,000 ML IV SCH (13:51)
[2018-02-08] MEDS ORDERED: ATROPINE SO4 0.4 MG/1 ML VIAL IVPUSH ONE (13:56)
[2018-02-08] MEDS ORDERED: ROCURONIUM BROMIDE 50 MG/5 ML VIAL IV ONE (13:58)
[2018-02-08] MEDS ORDERED: MIDAZOLAM 100 MG in SODIUM CHLORIDE 100 ML IVPB SCH (14:00)
[2018-02-08 14:03] LABS: INR 0.97 (0.82-1.09)
[2018-02-08 14:07] LABS: URINE APPEARANCE CLEAR; URINE BILIRUBIN NEGATIVE (NEGATIVE); URINE BLOOD NEGATIVE (NEGATIVE); URINE COLOR STRAW; URINE GLUCOSE (UA) NEGATIVE (NEGATIVE); URINE KETONE NEGATIVE (NEGATIVE); URINE LEUK ESTERASE NEGATIVE (NEGATIVE); URINE NITRITE NEGATIVE (NEGATIVE); URINE PROTEIN NEGATIVE (NEGATIVE); URINE UROBILINOGEN NEGATIVE mg/dL (0.2-1.0)
[2018-02-08 14:14] LABS: ALBUMIN 3.8 g/dl (3.4-5.0); ANION GAP 14 (8-16); BILIRUBIN,TOTAL 0.4 mg/dL (0.2-1.0); BLOOD UREA NITROGEN 42 mg/dL (7-18); CALCIUM 9.3 mg/dL (8.5-10.1); CHLORIDE 102 mmol/L (98-107); CHOLESTEROL 160 mg/dL (50-200); CO2 23 mmol/L (21-32); CREATININE 1.3 mg/dL (0.7-1.3); GLUCOSE,RANDOM 146 mg/dL (74-106); POTASSIUM 4.5 mmol/L (3.5-5.1); SGOT/AST 15 U/L (15-37); SGPT/ALT 30 U/L (12-78); SODIUM 139 mmol/L (136-145); TOT PROT 7.3 g/dl (6.4-8.2); TRIGLYCERIDES 118 mg/dL (35-160)
[2018-02-08 14:16] LABS: ALK PHOS 132 U/L (45-117)
[2018-02-08] MEDS ORDERED: DOPAMINE 400 MG/D5W - 400,000 MCG/250 ML INFUS.BAG IVPB ONE (14:18)
[2018-02-08] MEDS ORDERED: SODIUM CHLORIDE 1,000 ML IV STA ×2 (14:26→16:56)
[2018-02-08] MEDS ORDERED: VANCOMYCIN 1,000 MG in DEXTROSE 5%-WATER - 250 ML IVPB ONE (14:29)
[2018-02-08] MEDS ORDERED: PIPERACILLIN/TAZOB 4.5 GM 4.5 GM in DEXTROSE 5%-WATER - 100 ML IVPB ONE (14:29)
--- NOTE | 2018-02-08 14:32 | EKG ---
Test Reason : Blood Pressure : / mmHG Vent. Rate : 061 BPM Atrial Rate : 061 BPM P-R Int : 166 ms QRS Dur : 158 ms QT Int : 464 ms P-R-T Axes : 029 -51 002 degrees QTc Int : 467 ms NORMAL SINUS RHYTHM RIGHT BUNDLE BRANCH BLOCK LEFT ANTERIOR FASCICULAR BLOCK BIFASCICULAR BLOCK MODERATE VOLTAGE CRITERIA FOR LVH, MAY BE NORMAL VARIANT ABNORMAL ECG WHEN COMPARED WITH ECG OF 17-JAN-2018 22:07, T WAVE INVERSION NO LONGER EVIDENT IN ANTERIOR LEADS Confirmed by ROMAIN ANDERSON MD ([id number]) on 02/08/2018 2:31:46 PM Referred By: Confirmed By:ROMAIN ANDERSON MD
[2018-02-08] MEDS ORDERED: VANCOMYCIN 1 GRAM (PRE-DOCKED) 1,000 MG/250 ML BAG IVPB ONE (14:35)
[2018-02-08] MEDS ORDERED: PIPERACILLIN/TAZOB 4.5 GM 4.5 GM/100 ML BAG IVPB ONE (14:35)
[2018-02-08 15:23] LABS: HDL CHOLESTEROL 52 mg/dL (40-60); LDL CHOLESTEROL (ONLY SJRH) 91 mg/dL (5-100)
--- NOTE | 2018-02-08 15:49 | CONSULT ---
Consult Consult Specialty:: Nephrology Reason for Consultation:: kidney transplant - History of Present Illness Chief Complaint: altered mental status History of Present Illness: Pt is a 77 year old male with pmhx of kidney transplant, CKD and DM who presents to the ER with altered mental status. He was in the hospital recently after a fall that resulted in rib fractures. He collapsed at home during physical therapy. He was found to be unresponsive in the ER. He was intubated. CT of the head was negative for acute pathology. He was found to be hypotensive and hypothermic. He is to be admitted to the ICU. His daughter Maritza is at bedside and case was discussed with her as well. Pt is known to me and follows with me. He has not followed in the office in over a years secondary to recurrent hospitalizations and difficulty getting in. His mental status has been declining over the last year. - History Source History Provided By: Patient - Past Medical History Cardio/Vascular: Yes: CAD (CABG), HTN, Other (PAD, heel osteo in 04/05) Renal/: Yes: Renal Failure, Renal Inusuff, Hemodialysis (in past prior to renal transplant 2008), Other (S/P Kidney tranplant 2008. 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) Endocrine: Yes: Diabetes Mellitus - Past Surgical History Past Surgical History: Yes: AV Fistula/Graft (right upper arm), CABG, Kidney Transplant (right 2008) - Alcohol/Substance Use Hx Alcohol Use: No - Smoking History Smoking history: Never smoked Have you smoked in the past 12 months: No Aproximately how many cigarettes per day: 0 - Social History Usual Living Arrangement: Alone ADL: Support Services History of Recent Travel: No Home Medications - Allergies Allergies/Adverse Reactions: Allergies Allergy/AdvReac Type Severity Reaction Status Date / Time No Known Drug Allergies Allergy Verified 02/08/18 13:02 - Home Medications Home Medications: Ambulatory Orders Amlodipine Besylate [Norvasc -] 10 mg PO DAILY 05/17/17 Aspirin [Jena Chewable Aspirin] 81 mg PO HS 05/17/17 Atorvastatin Ca [Lipitor] 10 mg PO HS 05/17/17 Carvedilol [Coreg -] 25 mg PO BID 05/17/17 Docusate Sodium [Colace -] 100 mg PO DAILY 05/17/17 Duloxetine HCl [Cymbalta] 20 mg PO BID 05/17/17 Mycophenolate Sodium [Myfortic] 360 mg PO BID 05/17/17 Tamsulosin HCl [Flomax] 0.4 mg PO HS 05/17/17 hydrALAZINE HCL [Apresoline -] 25 mg PO BID 05/17/17 predniSONE [Deltasone -] 5 mg PO DAILY 05/17/17 Acetaminophen [Tylenol .Regular Strength -] 650 mg PO Q4H PRN tablet 11/29/17 Tacrolimus 1 mg PO BID 11/29/17 Insulin Sliding Scale [Novolog Vial Sliding Scale -] 1 vial SQ ACHS units 11/30 Insulin (Levemir) [Levemir Vial] 8 units SQ HS ml 12/05/17 Insulin (Levemir) [Levemir Vial] 25 units SQ AM #0 ml 12/05/17 Albuterol 2.5/Ipratropium 0.5 [Duoneb -] 1 amp NEB RQID amp 01/23/18 Amox-Tr/K Cl [Augmentin 875-125mg Tablet -] 1 tab PO BID@0800,1730 #10 tablet MDD 2 01/23/18 Docusate Sodium [Colace -] 100 mg PO BID PRN capsule 01/23/18 Heparin - 5,000 unit SQ BID vial 01/23/18 Insulin (Levemir) [Levemir Vial] 5 units SQ HS ml 01/23/18 Insulin (Levemir) [Levemir Vial] 26 units SQ AM ml 01/23/18 Insulin (Levemir) [Levemir Vial] 26 units SQ DAILY@0900 ml 01/23/18 Insulin Sliding Scale [Novolog Vial Sliding Scale -] 1 vial SQ ACHS units 01/23 Mycophenolate Sodium [Mycophenolic Acid] 360 mg PO BID tablet. 01/23/18 hydrALAZINE HCL [Apresoline -] 25 mg PO BID tablet 01/23/18 predniSONE [Deltasone -] 5 mg PO DAILY tablet 01/23/18 Family Disease History - Family Disease History Family History: Unable to Obtain Review of Systems Unable to obtain ROS, reason: pt intubated Physical Exam Vital Signs: Vital Signs Temperature 95.2 F L 02/08/18 15:00 Pulse Rate 71 02/08/18 15:24 Respiratory Rate 14 02/08/18 15:00 Blood Pressure 106/25 02/08/18 15:24 O2 Sat by Pulse Oximetry (%) 100 02/08/18 15:00 Constitutional: Yes: Calm Eyes: Yes: Other (pupils are not equal) Neck: Yes: Supple Cardiovascular: Yes: S1, S2 Respiratory: Yes: Mechanically Ventilated Gastrointestinal: Yes: Soft Renal/: Yes: Monahan Present Musculoskeletal: Yes: Muscle Weakness Edema: No Integumentary: Yes: WNL Neurological: Yes: Lethargy Labs: CBC, BMP 02/08/18 13:38 02/08/18 13:38 Imaging - Results Chest X-ray: Report Reviewed Cat Scan: Report Reviewed Problem List - Problems (1) Acute respiratory failure Code(s): J96.00 - ACUTE RESPIRATORY FAILURE, UNSP W HYPOXIA OR HYPERCAPNIA (2) Bradycardia Code(s): R00.1 - BRADYCARDIA, UNSPECIFIED (3) Hypotension Code(s): I95.9 - HYPOTENSION, UNSPECIFIED (4) Renal transplant disorder Code(s): T86.10 - UNSPECIFIED COMPLICATION OF KIDNEY TRANSPLANT (5) Shock Code(s): R57.9 - SHOCK, UNSPECIFIED Assessment/Plan Current Medications Generic Name Dose Route Start Last Admin Trade Name Freq PRN Reason Stop Dose Admin Chlorhexidine Gluconate 1 applic 02/08/18 22:00 Hibiclens For Decolonization - TP HS [facility]GO Sodium Chloride 1,000 mls @ 42 mls/hr 02/08/18 13:15 02/08/18 13:51 Normal Saline - IV 42 mls/hr ASDIR [facility] Administration Midazolam HCl 100 mg/ Sodium 100 mls @ 1 mls/hr 02/08/18 14:00 02/08/18 15:40 Chloride IVPB 2 mg/hr TITR HUGO 2 mls/hr Protocol Administration 1 MG/HR Norepinephrine Bitartrate 8, 500 mls @ 18.75 mls/hr 02/08/18 16:15 02/08/18 16:55 000 mcg/ Dextrose IV 10 mcg/min TITR HUGO 37.5 mls/hr Protocol Titration 5 MCG/MIN Dopamine HCl/Dextrose 400,000 mcg in 250 mls @ 12.757 mls/hr 02/08/18 16:45 02/08/18 17:24 Dopamine 400 Mg/D5w - IVPB 10 mcg/kg/min TITR HUGO 25.515 mls/hr Protocol Titration 5 MCG/KG/MIN Fentanyl 500 mcg/ Dextrose 100 mls @ 0 mls/hr 02/08/18 17:15 02/08/18 17:15 IVPB 10 mls/hr TITR HUGO Administration As Directed Piperacillin Sod/Tazobactam 50 mls @ 100 mls/hr 02/08/18 22:30 Sod 3.375 gm/ Dextrose IVPB 02/09/18 06:59 Q8H [facility] Insulin Aspart 1 vial 02/08/18 22:00 Novolog Vial Sliding Scale - SQ ACHS [facility] Protocol Mupirocin 1 applic 02/08/18 22:00 Bactroban Ointment (For Decolonization) - NS 02/13/18 21:59 BID [facility] Mycophenolate Sodium 360 mg 02/08/18 22:00 Mycophenolic Acid PO BID [facility] Piperacillin Sod/Tazobactam Sod 3.375 gm 02/08/18 18:00 Zosyn 3.375gm Ivpb (Pre-Docked) IVPB Q8H-IV [facility] Protocol Prednisone 5 mg 02/09/18 10:00 Deltasone - PO DAILY [facility] Tacrolimus 1 mg 02/08/18 22:00 Prograf PO BID [facility] Impression 1. CKD 2. kidney transplant 3. DM 4. hx of syncope 5. HTN 6. hyperlipidemia 7. acute respiratory failure requiring intubation 8. change in mental status 9. bradycardia 10. r/o sepsis 11. r/o meningitis Plan - renal function is stable - prograf 1 mg q 12 hrs, mycophenolate 360 bid, prednisone 5 mg daily are his transplant meds - send blood and urine cultures - pt to get LP - start pressors to a map of 65 - central line placed in her - give another saline bolus - check cvp - warming blanket - discussed with ER - admit to ICU - discussed with family Dr Perez
[2018-02-08] MEDS ORDERED: NOREPINEPHRINE BITARTRATE 8,000 MCG in DEXTROSE 5%-WATER - 492 ML IV SCH (16:15)
--- NOTE | 2018-02-08 16:28 | HP ---
Admitting History and Physical - Admission Chief Complaint: drop syncope, unresponsivness History of Present Illness: HPI Report collected from ED attending and medical record, pt intubated 77 year old male with history of HTN, DM, CAD s/p DE, ESRD s/p nonworking RUE AV fistula s/p renal transplant 2008 on immunosuppresants presented to ED by EMS for loss of consciousness and unresponsive in the home during home PT. Previously admitted s/p fall with sustain rib fractures, pt was dc to SNF and then home. Today, he was doing home PT when he had a drop syncopal episode, unresponsive and per EMS agonal breathing. In ED BP initially was 190/110, bradycardia 20-30, BMG 150, unarousable to pain, he was intubated for airway protection and CT head normal no bleed. When he returned from CT becomes newly hypotensive, he was started on dopamine peripherally, while a L IJ was placed and then started on levophed, and versed. Empirically covered with gerard aguilar. History Source: Medical Record (ED attending) Limitations to Obtaining History: Intubated - Past Medical History Cardiovascular: Yes: CAD (CABG), HTN, Other (PAD, heel osteo in 04/05) Renal/: Yes: Other (S/P Kidney tranplant 2008. 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) Endocrine: Yes: Diabetes Mellitus - Past Surgical History Past Surgical History: Yes: AV Fistula/Graft (right upper arm, non working), CABG, Kidney Transplant (right 2008) - Smoking History Smoking history: Never smoked Have you smoked in the past 12 months: No Aproximately how many cigarettes per day: 0 - Alcohol/Substance Use Hx Alcohol Use: No History of Substance Use: reports: None - Social History ADL: Support Services History of Recent Travel: No Home Medications - Allergies Allergies/Adverse Reactions: Allergies Allergy/AdvReac Type Severity Reaction Status Date / Time No Known Drug Allergies Allergy Verified 02/08/18 13:02 - Home Medications Home Medications: Ambulatory Orders Amlodipine Besylate [Norvasc -] 10 mg PO DAILY 05/17/17 Aspirin [Jena Chewable Aspirin] 81 mg PO HS 05/17/17 Atorvastatin Ca [Lipitor] 10 mg PO HS 05/17/17 Carvedilol [Coreg -] 25 mg PO BID 05/17/17 Duloxetine HCl [Cymbalta] 20 mg PO BID 05/17/17 Tamsulosin HCl [Flomax] 0.4 mg PO HS 05/17/17 predniSONE [Deltasone -] 5 mg PO DAILY 05/17/17 Acetaminophen [Tylenol .Regular Strength -] 650 mg PO Q4H PRN tablet 11/29/17 Tacrolimus 1 mg PO BID 11/29/17 Insulin (Levemir) [Levemir Vial] 8 units SQ HS ml 12/05/17 Insulin (Levemir) [Levemir Vial] 25 units SQ AM #0 ml 12/05/17 Docusate Sodium [Colace -] 100 mg PO BID PRN capsule 01/23/18 Heparin - 5,000 unit SQ BID vial 01/23/18 Insulin (Levemir) [Levemir Vial] 5 units SQ HS ml 01/23/18 Insulin (Levemir) [Levemir Vial] 26 units SQ DAILY@0900 ml 01/23/18 Insulin Sliding Scale [Novolog Vial Sliding Scale -] 1 vial SQ ACHS units 01/23 Mycophenolate Sodium [Mycophenolic Acid] 360 mg PO BID tablet. 01/23/18 hydrALAZINE HCL [Apresoline -] 25 mg PO BID tablet 01/23/18 predniSONE [Deltasone -] 5 mg PO DAILY tablet 01/23/18 Albuterol 2.5/Ipratropium 0.5 [Duoneb -] 1 amp NEB QID 02/08/18 Review of Systems Unable to obtain ROS, reason: INtubated Physical Examination Vital Signs: Vital Signs Temperature 95.2 F L 02/08/18 15:00 Pulse Rate 71 02/08/18 15:24 Respiratory Rate 14 02/08/18 15:00 Blood Pressure 106/25 02/08/18 15:24 O2 Sat by Pulse Oximetry (%) 100 02/08/18 15:00 Eyes: Yes: Other (assymetrical R pupil 2mm, L pupil 4mm) Neck: Yes: Supple Cardiovascular: Yes: Bradycardia, S1, S2 Respiratory: Yes: Mechanically Ventilated Gastrointestinal: Yes: Normal Bowel Sounds, Soft Renal/: Yes: Monahan Present Musculoskeletal: Yes: WNL Extremities: Yes: Cool, Other (RUE avf + thrill) Edema: No Peripheral Pulses WNL: Yes Integumentary: Yes: WNL Neurological: Yes: Other (intubated) Labs: CBC, BMP 02/08/18 13:38 02/08/18 13:38 Imaging - Results Cat Scan: Report Reviewed (no bleed) Problem List - Problems (1) Syncope Code(s): R55 - SYNCOPE AND COLLAPSE (2) Syncope and collapse Code(s): R55 - SYNCOPE AND COLLAPSE (3) Bradycardia Code(s): R00.1 - BRADYCARDIA, UNSPECIFIED (4) Hypotension Code(s): I95.9 - HYPOTENSION, UNSPECIFIED (5) Acute respiratory failure Code(s): J96.00 - ACUTE RESPIRATORY FAILURE, UNSP W HYPOXIA OR HYPERCAPNIA (6) Shock Code(s): R57.9 - SHOCK, UNSPECIFIED (7) Renal transplant disorder Code(s): T86.10 - UNSPECIFIED COMPLICATION OF KIDNEY TRANSPLANT Assessment/Plan Assessment: 77 year old male admitted with drop syncopal episode and unresponsiveness Plan: 1. Acute altered MS, drop syncope - r/o meningitis - Labs relatively normal, no overt infectious cause noted: UA negative, no fever - LP to be done in ED - CT head negative for bleed - Place NG tube - Neuro consulted 2. Renal transplant - Lower abdomen transplant site healed - Continue transplant meds as listed above - D/w renal 3. Shock with hypothermia - Place warming blanket - Now off dopamine - Continue levophed map goal 65 - Has received 1.5L - Give additional 1L bolus now - Follow bc and urine cx, r/o sepsis 4. Acute resp failure - Obtain ABG now - Maintain MV - Start versed, fent gtt - Serial cxr - ICU admission Visit type - Emergency Visit Emergency Visit: Yes ED Registration Date: 02/08/18 Care time: The patient presented to the Emergency Department on the above date and was hospitalized for further evaluation of their emergent condition. - New Patient This patient is new to me today: Yes Date on this admission: 02/08/18 - Critical Care Critical Care patient: Yes Total Critical Care Time (in minutes): 35 Critical Care Statement: The care of this patient involved high complexity decision making to prevent further life threatening deterioration of the patient 's condition and/or to evaluate & treat vital organ system(s) failure or risk of failure. Hospitalist Screening - Colonoscopy Questionnaire Colonoscopy Questionnaire: Colonoscopy Questionnaire - Patient: 50 - 75 years old and never had a screening colonoscopy: Unknown History of colon or rectal polyps, or CA: Unknown History of IBD, Crohn's disease or UC: Unknown History of abdominal radiation therapy as a child: Unknown - Relative: 1 with colon or rectal CA, or polyps at age 60 or younger: Unknown Colon or rectal CA diagnosed at age 45 or younger: Unknown Multiple relatives with colon or rectal CA: Unknown - Outcome: Screening Result: Negative Screen
[2018-02-08] MEDS ORDERED: NOREPINEPHRINE BITARTRATE 4 MG/4 ML ML IV ONE ×2 (16:35→16:38)
[2018-02-08] MEDS ORDERED: DOPAMINE 400 MG/D5W - 400,000 MCG/250 ML INFUS.BAG IVPB SCH (16:45)
[2018-02-08] MEDS ORDERED: fentaNYL CITRATE 250 MCG/5 ML VIAL ONE (16:57)
[2018-02-08] MEDS ORDERED: FENTANYL INJECTION 500 MCG in DEXTROSE 5%-WATER - 90 ML IVPB SCH (17:15)
--- NOTE | 2018-02-08 17:52 | CON.NEURO ---
Consult - Past Medical History Cardio/Vascular: Yes: CAD (CABG), HTN, Other (PAD, heel osteo in 04/05) Renal/: Yes: Other (S/P Kidney tranplant 2008. 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) Endocrine: Yes: Diabetes Mellitus - Past Surgical History Past Surgical History: Yes: AV Fistula/Graft (right upper arm, non working), CABG, Kidney Transplant (right 2009) - Alcohol/Substance Use Hx Alcohol Use: No History of Substance Use: reports: None - Smoking History Smoking history: Never smoked Have you smoked in the past 12 months: No Aproximately how many cigarettes per day: 0 - Social History Usual Living Arrangement: Alone ADL: Support Services History of Recent Travel: No Home Medications - Allergies Allergies/Adverse Reactions: Allergies Allergy/AdvReac Type Severity Reaction Status Date / Time No Known Drug Allergies Allergy Verified 02/08/18 13:02 - Home Medications Home Medications: Ambulatory Orders Amlodipine Besylate [Norvasc -] 10 mg PO DAILY 05/17/17 Aspirin [Jena Chewable Aspirin] 81 mg PO HS 05/17/17 Atorvastatin Ca [Lipitor] 10 mg PO HS 05/17/17 Carvedilol [Coreg -] 25 mg PO BID 05/17/17 Docusate Sodium [Colace -] 100 mg PO DAILY 05/17/17 Duloxetine HCl [Cymbalta] 20 mg PO BID 05/17/17 Mycophenolate Sodium [Myfortic] 360 mg PO BID 05/17/17 Tamsulosin HCl [Flomax] 0.4 mg PO HS 05/17/17 hydrALAZINE HCL [Apresoline -] 25 mg PO BID 05/17/17 predniSONE [Deltasone -] 5 mg PO DAILY 05/17/17 Acetaminophen [Tylenol .Regular Strength -] 650 mg PO Q4H PRN tablet 11/29/17 Tacrolimus 1 mg PO BID 11/29/17 Insulin Sliding Scale [Novolog Vial Sliding Scale -] 1 vial SQ ACHS units 11/30 Insulin (Levemir) [Levemir Vial] 8 units SQ HS ml 12/05/17 Insulin (Levemir) [Levemir Vial] 25 units SQ AM #0 ml 12/05/17 Albuterol 2.5/Ipratropium 0.5 [Duoneb -] 1 amp NEB RQID amp 01/23/18 Amox-Tr/K Cl [Augmentin 875-125mg Tablet -] 1 tab PO BID@0800,1730 #10 tablet MDD 2 01/23/18 Docusate Sodium [Colace -] 100 mg PO BID PRN capsule 01/23/18 Heparin - 5,000 unit SQ BID vial 01/23/18 Insulin (Levemir) [Levemir Vial] 5 units SQ HS ml 01/23/18 Insulin (Levemir) [Levemir Vial] 26 units SQ AM ml 01/23/18 Insulin (Levemir) [Levemir Vial] 26 units SQ DAILY@0900 ml 01/23/18 Insulin Sliding Scale [Novolog Vial Sliding Scale -] 1 vial SQ ACHS units 01/23 Mycophenolate Sodium [Mycophenolic Acid] 360 mg PO BID tablet. 01/23/18 hydrALAZINE HCL [Apresoline -] 25 mg PO BID tablet 01/23/18 predniSONE [Deltasone -] 5 mg PO DAILY tablet 01/23/18 Physical Exam-Neuro Vital Signs: Vital Signs Temperature 95.2 F L 02/08/18 15:00 Pulse Rate 69 02/08/18 17:40 Respiratory Rate 17 02/08/18 17:40 Blood Pressure 160/62 02/08/18 17:24 O2 Sat by Pulse Oximetry (%) 100 02/08/18 17:40 Labs: CBC, BMP 02/08/18 13:38 02/08/18 13:38 INR, PTT INR 0.97 (0.82-1.09) 02/08/18 13:38 Assessment/Plan CC episode of unresponsiveness HPI 77 year old male history of DM, HTN, CAD ,ESRD s/p trasplant. He has been with home PT and has episode of unreponsiveness. His blood pressure was high and pulse reate was 20s and he was given atropine. Patient is being treated with abx empirically and he was hypothermic. Patient has no episode of seizure or hemiparesis. He is moving all extremity . His ct head is unremarkable and pupils is asymmetrycail. Patient is intubated and sedated. He is waiting to go to ICU. He was started on dopamine. PMH as above. SH,ROS,FH reviewed in chart NKDA - Home Medications: Amlodipine Besylate [Norvasc -] 10 mg PO DAILY 05/17/17 Aspirin [Jena Chewable Aspirin] 81 mg PO HS 05/17/17 Atorvastatin Ca [Lipitor] 10 mg PO HS 05/17/17 Carvedilol [Coreg -] 25 mg PO BID 05/17/17 Docusate Sodium [Colace -] 100 mg PO DAILY 05/17/17 Duloxetine HCl [Cymbalta] 20 mg PO BID 05/17/17 Mycophenolate Sodium [Myfortic] 360 mg PO BID 05/17/17 Tamsulosin HCl [Flomax] 0.4 mg PO HS 05/17/17 hydrALAZINE HCL [Apresoline -] 25 mg PO BID 05/17/17 predniSONE [Deltasone -] 5 mg PO DAILY 05/17/17 Acetaminophen [Tylenol .Regular Strength -] 650 mg PO Q4H PRN tablet 11/29/17 Tacrolimus 1 mg PO BID 11/29/17 Insulin Sliding Scale [Novolog Vial Sliding Scale -] 1 vial SQ ACHS units 11/30 Insulin (Levemir) [Levemir Vial] 8 units SQ HS ml 12/05/17 Insulin (Levemir) [Levemir Vial] 25 units SQ AM #0 ml 12/05/17 Albuterol 2.5/Ipratropium 0.5 [Duoneb -] 1 amp NEB RQID amp 01/23/18 Amox-Tr/K Cl [Augmentin 875-125mg Tablet -] 1 tab PO BID@0800,1730 #10 tablet MDD 2 01/23/18 Docusate Sodium [Colace -] 100 mg PO BID PRN capsule 01/23/18 Heparin - 5,000 unit SQ BID vial 01/23/18 Insulin (Levemir) [Levemir Vial] 5 units SQ HS ml 01/23/18 Insulin (Levemir) [Levemir Vial] 26 units SQ AM ml 01/23/18 Insulin (Levemir) [Levemir Vial] 26 units SQ DAILY@0900 ml 01/23/18 Insulin Sliding Scale [Novolog Vial Sliding Scale -] 1 vial SQ ACHS units 01/23 Mycophenolate Sodium [Mycophenolic Acid] 360 mg PO BID tablet. 01/23/18 hydrALAZINE HCL [Apresoline -] 25 mg PO BID tablet 01/23/18 predniSONE [Deltasone -] 5 mg PO DAILY tablet 01/23/18 Physical Examination Vital Signs: Vital Signs Temperature 95.2 F L 02/08/18 15:00 Pulse Rate 71 02/08/18 15:24 Respiratory Rate 14 02/08/18 15:00 Blood Pressure 106/25 02/08/18 15:24 O2 Sat by Pulse Oximetry (%) 100 02/08/18 15:00 Neurological Examination He is intubated and sedated as given for doing spinal tap Patient is not responding to verbal stimuli and moving all extremity to pain there is asymmetry of pupils right is 3mm and left is 5 mm and very sluggishly reactive to light corneal reflex is absent withdrawing to painful stimuli There is terminal neck stiffness ct head is unremarkable Assessment- ? Possible hypoxic ischemic Encephalopathy secondary to bradycardia , given patient mental status change and hypothermia and immuno compromised state, I concur with spinal tap 2. Less likley to be stroke or status epilepticus 3.Asymmetry of pupil could be either local eye pathology vs physiological anisocoria - continue supportive treatment, Patient may need mri of brain once he is stable would follow up on spinal tap results -
[2018-02-08 18:04] LABS: VENOUS PH 7.32 (7.32-7.42)
[2018-02-08 19:28] LABS: CSF APPEARANCE CLEAR; CSF COLOR COLORLESS
[2018-02-08 20:03] LABS: ARTERIAL BLD GAS O2 SATURATION 98.8 % (90-98.9); ARTERIAL BLOOD GAS BASE EXCESS -3.4 meq/l (-2-2); ARTERIAL BLOOD GAS PCO2 44.2 mmHg (35-45); ARTERIAL BLOOD GAS pH 7.32 (7.35-7.45); CARBOXYHEMOGLOBIN 1.1 gm% (0.5-2.0)
[2018-02-08 20:05] LABS: ALLENS TEST POSITIVE
--- NOTE | 2018-02-08 20:37 | CONSULT ---
Consult Consult Specialty:: Pulm/CCM Reason for Consultation:: AMS, bradycardia, shock - History of Present Illness Chief Complaint: syncope, AMS, hypotension History of Present Illness: Briefly Mr Abel is a 77 year old man with history of HTN, DM, CAD s/p CT, ESRD s/p nonworking RUE AV fistula s/p renal transplant 2008 on chronic immunosuppression who presented today in ED via EMS for hypotension, bradycardia , and unresponsiveness requiring intubation and vasopressors. Pt was at home, working with PT (after fall with rib fxs) today when had unprecipitated syncopal episode. EMS was called, pt was bradycardic and hypotensive with HR 20s. Received atropine with return to normal HR. Urgently transferred to ED where pt remained obtunded but now with hypertension, was hypothermic. . Was intubated for airway protection, underwent CT head which was negative for acute pathology. Was deeply sedated for CT and LP (no WBC, slightly elevated protein, glu 119) and became hypotensive. LIJ TLC was placed and pt started on Levophed. IVF given and BP improved. Started on empiric broad spectrum (vanco/piptaz). Transferred to ICU for further care. - History Source History Provided By: Medical Record Limitations to Obtaining History: Intubated - Past Medical History Cardio/Vascular: Yes: CAD (CABG), HTN, Other (PAD, heel osteo in 04/05) Renal/: Yes: Other (S/P Kidney tranplant 2008. 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) Endocrine: Yes: Diabetes Mellitus - Past Surgical History Past Surgical History: Yes: AV Fistula/Graft (right upper arm, non working), CABG, Kidney Transplant (right 2008) - Alcohol/Substance Use Hx Alcohol Use: No History of Substance Use: reports: None - Smoking History Smoking history: Never smoked Have you smoked in the past 12 months: No Aproximately how many cigarettes per day: 0 - Social History Usual Living Arrangement: Alone ADL: Support Services History of Recent Travel: No Home Medications - Allergies Allergies/Adverse Reactions: Allergies Allergy/AdvReac Type Severity Reaction Status Date / Time No Known Drug Allergies Allergy Verified 02/08/18 13:02 - Home Medications Home Medications: Ambulatory Orders Amlodipine Besylate [Norvasc -] 10 mg PO DAILY 05/17/17 Aspirin [Jena Chewable Aspirin] 81 mg PO HS 05/17/17 Atorvastatin Ca [Lipitor] 10 mg PO HS 05/17/17 Carvedilol [Coreg -] 25 mg PO BID 05/17/17 Duloxetine HCl [Cymbalta] 20 mg PO BID 05/17/17 Tamsulosin HCl [Flomax] 0.4 mg PO HS 05/17/17 predniSONE [Deltasone -] 5 mg PO DAILY 05/17/17 Acetaminophen [Tylenol .Regular Strength -] 650 mg PO Q4H PRN tablet 11/29/17 Tacrolimus 1 mg PO BID 11/29/17 Insulin (Levemir) [Levemir Vial] 8 units SQ HS ml 12/05/17 Insulin (Levemir) [Levemir Vial] 25 units SQ AM #0 ml 12/05/17 Docusate Sodium [Colace -] 100 mg PO BID PRN capsule 01/23/18 Heparin - 5,000 unit SQ BID vial 01/23/18 Insulin (Levemir) [Levemir Vial] 5 units SQ HS ml 01/23/18 Insulin (Levemir) [Levemir Vial] 26 units SQ DAILY@0900 ml 01/23/18 Insulin Sliding Scale [Novolog Vial Sliding Scale -] 1 vial SQ ACHS units 01/23 Mycophenolate Sodium [Mycophenolic Acid] 360 mg PO BID tablet. 01/23/18 hydrALAZINE HCL [Apresoline -] 25 mg PO BID tablet 01/23/18 predniSONE [Deltasone -] 5 mg PO DAILY tablet 01/23/18 Albuterol 2.5/Ipratropium 0.5 [Duoneb -] 1 amp NEB QID 02/08/18 Family Disease History - Family Disease History Family History: Unable to Obtain Review of Systems Unable to obtain ROS, reason: intubated, non responsive Physical Exam Vital Signs: Vital Signs Temperature 94.2 F L 02/08/18 18:01 Pulse Rate 70 02/08/18 19:48 Respiratory Rate 14 02/08/18 19:48 Blood Pressure 128/54 02/08/18 19:48 O2 Sat by Pulse Oximetry (%) 100 02/08/18 18:35 Constitutional: Yes: Well Nourished, No Distress Eyes: Yes: Cataracts (R). No: PERRL HENT: Yes: Atraumatic, Normocephalic Neck: No: Lymphadenopathy Cardiovascular: Yes: Regular Rate and Rhythm, S1 Respiratory: Yes: CTA Bilaterally, Intubated. No: Accessory Muscle Use Gastrointestinal: Yes: Normal Bowel Sounds, Soft ...Rectal Exam: Yes: Deferred Renal/: Yes: WNL, Monahan Present Extremities: Yes: Cool Edema: Yes Edema: LUE: Trace, RUE: Trace, LLE: Trace, RLE: Trace Peripheral Pulses WNL: Yes Neurological: Yes: Unresponsive (sedated on versed (stopped)). No: Alert, Oriented, Facial Droop, Seizure Labs: CBC, BMP 02/08/18 13:38 02/08/18 13:38 Imaging - Results Chest X-ray: Report Reviewed, Image Reviewed (no infiltrate, no ptx, ETT and TLC in satisfactory position) Cat Scan: Report Reviewed (no acute path) Assessment/Plan Seen and examined in ICU A/ 77 y/o man with syncope while working w/ PT c/b bradycardia, hypotension and AMS which did not fully resolve. It is unclear the precipitating event. It is unclear if there was sz, or straining which preceeded syncope. CT head is negative, unable to get MRI due to vent. Neuro has been consulted. PRESS could explain AMS but tacro dosing has been stable. P/ -Neuro consulted -hold sedation, assess mental status, repeat imaging if does not awaken -check tacro level (send out), consider transfer to transplant center -serial trop, tele. ekgm Cards +/- EP if recurrent nahomy, now in sinus -check TSH -cont abx but would consider d/c if cxl negative as no sick prodrome, no localizing symptoms -shock has resolved, gentle fluid -cont MMF and pred -stress dose steroids if becomes hypotensive again -cont MV, wean to extubate if mental status improves -GI and DVT mildred Mora ACNP [id number]
[2018-02-08] MEDS ORDERED: CHLORHEXIDINE GLUCONATE 4% CLEANSER FOR DECOLONIZATION TP SCH (22:00)
[2018-02-08 22:06] LABS: CSF APPEARANCE CLEAR; CSF COLOR COLORLESS; CSF WBC 0
[2018-02-08] MEDS: INSULIN SLIDING SCALE (NOVOLOG) 1 VIAL SQ SCH (22:17)
[2018-02-08] MEDS ORDERED: PT OWN MED DRAWER 7, Y5N ONE (22:18)
[2018-02-08] MEDS: MYCOPHENOLATE SODIUM 360 MG TABLET.DR PO SCH (22:39)
[2018-02-08] MEDS: PIPERACILLIN/TAZOB 3.375 GM 3.375 GM in DEXTROSE 5%-WATER - 50 ML IVPB SCH (22:40)
[2018-02-08] MEDS: TACROLIMUS ANHYDROUS 1 MG CAPSULE PO SCH (22:40)
[2018-02-09] MEDS: INSULIN SLIDING SCALE (NOVOLOG) 1 VIAL SQ SCH ×4 (06:32→22:31)
[2018-02-09] MEDS: PIPERACILLIN/TAZOB 3.375 GM 3.375 GM in DEXTROSE 5%-WATER - 50 ML IVPB SCH (06:32)
[2018-02-09 06:36] LABS: HEMATOCRIT 38.5 % (35.4-49); HEMOGLOBIN 12.7 GM/dL (11.7-16.9); MCH 29.4 pg (25.7-33.7); MEAN CELL VOLUME 89.3 fl (80-96); MEAN PLT VOLUME 8.5 fl (7.5-11.1); PLATELET COUNT 293 K/MM3 (134-434); RBC 4.31 M/mm3 (4.00-5.60); RDW 15.8 % (11.9-15.9); WHITE BLOOD COUNT 24.8 K/mm3 (4.0-10.0)
[2018-02-09 07:12] LABS: CHLORIDE 102 mmol/L (98-107); POTASSIUM 4.5 mmol/L (3.5-5.1); SODIUM 138 mmol/L (136-145)
[2018-02-09 07:19] LABS: ALBUMIN 3.1 g/dl (3.4-5.0); ALK PHOS 98 U/L (45-117); ANION GAP 13 (8-16); BILIRUBIN,TOTAL 0.7 mg/dL (0.2-1.0); BLOOD UREA NITROGEN 42 mg/dL (7-18); CALCIUM 8.6 mg/dL (8.5-10.1); CO2 23 mmol/L (21-32); CREATININE 1.3 mg/dL (0.7-1.3); GLUCOSE,RANDOM 204 mg/dL (74-106); MAGNESIUM 1.9 mg/dL (1.8-2.4); PHOSPHOROUS 4.5 mg/dL (2.5-4.9); SGOT/AST 10 U/L (15-37); SGPT/ALT 25 U/L (12-78)
--- NOTE | 2018-02-09 08:39 | PN ---
Progress Note, Physician Chief Complaint: ID Full note dictated and MR Abel well known to me from office and hospital admission previously Unresponsive on ventilator - Current Medication List Current Medications: Active Medications Chlorhexidine Gluconate (Hibiclens For Decolonization -) 1 applic TP HS HUGO Sodium Chloride (Normal Saline -) 1,000 mls @ 42 mls/hr IV ASDIR HUGO Last Admin: 02/08/18 13:51 Dose: 42 mls/hr Midazolam HCl 100 mg/ Sodium (Chloride) 100 mls @ 1 mls/hr IVPB TITR HUGO; 1 MG/ HR PRN Reason: Protocol Last Titration: 02/08/18 20:37 Dose: 0 mg/hr, 0 mls/hr Norepinephrine Bitartrate 8, (000 mcg/ Dextrose) 500 mls @ 18.75 mls/hr IV TITR HUGO; 5 MCG/MIN PRN Reason: Protocol Last Titration: 02/08/18 22:00 Dose: 0 mcg/min, 0 mls/hr Insulin Aspart (Novolog Vial Sliding Scale -) 1 vial SQ ACHS HUGO PRN Reason: Protocol Last Admin: 02/09/18 06:32 Dose: 4 units Mupirocin (Bactroban Ointment (For Decolonization) -) 1 applic NS BID HUGO Stop: 02/13/18 21:59 Mycophenolate Sodium (Mycophenolic Acid) 360 mg PO BID [facility] Last Admin: 02/08/18 22:39 Dose: Not Given Piperacillin Sod/Tazobactam Sod (Zosyn 3.375gm Ivpb (Pre-Docked)) 3.375 gm IVPB Q8H-IV HUGO PRN Reason: Protocol Prednisone (Deltasone -) 5 mg PO DAILY [facility] Tacrolimus (Prograf) 1 mg PO BID [facility] Last Admin: 02/08/18 22:40 Dose: 1 mg - Objective Vital Signs: Vital Signs Temperature 99.9 F H 02/09/18 06:00 Pulse Rate 94 H 02/09/18 06:00 Respiratory Rate 16 02/09/18 08:00 Blood Pressure 118/34 02/09/18 08:00 O2 Sat by Pulse Oximetry (%) 100 02/08/18 18:35 Constitutional: Yes: Other (Intubated) Cardiovascular: Yes: S1, S2 Respiratory: Yes: WNL, Regular, CTA Bilaterally Gastrointestinal: Yes: WNL, Normal Bowel Sounds, Soft. No: Tenderness Edema: No Labs: CBC, BMP 02/09/18 06:10 02/09/18 06:10 INR, PTT INR 0.97 (0.82-1.09) 02/08/18 13:38 Problem List - Problems (1) Sepsis Code(s): A41.9 - SEPSIS, UNSPECIFIED ORGANISM (2) Hypotension Code(s): I95.9 - HYPOTENSION, UNSPECIFIED (3) Renal transplant disorder Code(s): T86.10 - UNSPECIFIED COMPLICATION OF KIDNEY TRANSPLANT Assessment/Plan Microbiology Laboratory Tests 02/08/18 02/08/18 02/08/18 13:03 13:38 13:38 WBC 12.7 H Hgb Hct Plt Count Creatinine Lactic Acid Total Bilirubin Alkaline Phosphatase Troponin I 0.02 Ur Leukocyte Esterase Negative CSF WBC CSF RBC CSF Glucose CSF Total Protein 02/08/18 02/08/18 02/08/18 17:55 18:30 18:30 WBC Hgb Hct Plt Count Creatinine Lactic Acid 1.8 Total Bilirubin Alkaline Phosphatase Troponin I Ur Leukocyte Esterase CSF WBC 0 CSF RBC 150 CSF Glucose 119 H CSF Total Protein 02/08/18 02/08/18 02/09/18 18:30 21:00 06:10 WBC 24.8 H D Hgb 12.7 Hct 38.5 Plt Count 293 Creatinine Lactic Acid Total Bilirubin Alkaline Phosphatase Troponin I 0.02 Ur Leukocyte Esterase CSF WBC CSF RBC CSF Glucose CSF Total Protein 63 H 02/09/18 06:10 WBC Hgb Hct Plt Count Creatinine 1.3 Lactic Acid Total Bilirubin 0.7 D Alkaline Phosphatase 98 D Troponin I Ur Leukocyte Esterase CSF WBC CSF RBC CSF Glucose CSF Total Protein Assessment Metabolic encephalopathy from hypotension. Elevated WBC count likely stress factors. Agree he is at higher risk for infection ie renal transplant ect. and should be covered pending cultures No pneumonia seen on xray Seth Gaytan on board
--- NOTE | 2018-02-09 09:48 | CONS ---
INFECTIOUS DISEASE CONSULTATION DATE OF CONSULTATION: DATE OF DICTATION: 02/09/2018 This is a 77-year-old [place] male whom I am asked to see in the ICU for evaluation of hypotension, unresponsiveness, and possible sepsis. 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 He is a known diabetic with hypertension, coronary artery disease, prior [facility], status post renal transplant in 2008, receiving immunosuppressive therapy. He was brought by EMS, after he apparently lost consciousness, and was unresponsive in the home during a physical therapy session. During physical therapy, he was noted to have a syncopal episode and EMS found him to have agonal breathing. Upon evaluation in the emergency room, he was hypertensive with a blood pressure of 190/110 and bradycardic between 20 and 30. His blood sugar was 150, and he was unarousable, and required intubation. A CAT scan of the head documented no acute intracranial bleed. When he returned from CAT scan imaging, he apparently became hypotensive and needed to be started on Levophed. His white count was noted to have risen since admission to 21,000 and a dose of vancomycin and Zosyn was administered. Because of the patient's unresponsiveness, he had a spinal tap done which did not show evidence of meningitis, but appeared to be traumatic with many red cells noted. PAST MEDICAL HISTORY: As noted above. MEDICATION: Amlodipine; aspirin; atorvastatin; carvedilol; prednisone 5 mg; tacrolimus; mycophenolate. ALLERGIES: None known. SOCIAL HISTORY: Former smoker. No history of alcohol use. FAMILY HISTORY: Unobtainable. REVIEW OF SYSTEMS: Respiratory: Currently intubated. Cardiac: Syncopal episode prior to admission. No history of chest pain, heart murmur. Gastrointestinal: No blood per rectum, vomiting, abdominal pain. Genitourinary: Incontinent of urine currently. PHYSICAL EXAMINATION: General: He was a [id number] male in no acute distress. Vital signs: Temperature was 99.9, pulse 94, blood pressure 118/34, respirations 16, 50% FiO2. HEENT: Revealed an endotracheal tube. Lungs: Clear to auscultation. Heart: S1, S2. Regular rhythm without audible murmur. Abdomen: Soft, nontender without organomegaly. Extremities: Without clubbing, cyanosis or edema. DIAGNOSTIC DATA: White count on admission 12.7 and today 24.8, hemoglobin 12.8, platelets of 293. Original differential 56% polys, 31% lymphs, 8 monos, 3 eos. BUN of 42, creatinine 1.3. Liver enzymes within normal limits. Urinalysis negative for leukocyte esterase. Two sets of blood cultures currently pending and thus far no growth. Chest x-ray reviewed shows no evidence of acute infiltrate seen. ASSESSMENT: A 77-year-old male with history of diabetes, status post renal transplant on immunosuppressive therapy since 2008, presents with having become unresponsive leading to intubation and subsequent hypotension requiring pressors, Elevated white count noted. Clearly, patient is at high risk for infection, based on his diabetes and history of immunosuppression with prior renal transplant. I find no obvious source of infection, but agree it is reasonable to empirically cover him over the first 24 to 48 hours pending cultures of blood and urine. He received a dose of vancomycin already. I will check a vancomycin level this morning. Continue him on Zosyn 4.5 g every 8 hours, pending blood and urine cultures. JAMES SANDOVAL M.D. [id number]
[2018-02-09] MEDS ORDERED: PT OWN MED DRAWER 7, Y5N ONE ×5 (09:54→21:22)
[2018-02-09] MEDS: PIPERACILLIN/TAZOB 4.5 GM 4.5 GM in DEXTROSE 5%-WATER - 100 ML IVPB SCH ×2 (10:11→17:41)
[2018-02-09] MEDS: MYCOPHENOLATE SODIUM 360 MG TABLET.DR PO SCH ×2 (10:11→21:55)
[2018-02-09] MEDS: TACROLIMUS ANHYDROUS 1 MG CAPSULE PO SCH ×2 (10:12→21:55)
[2018-02-09] MEDS: MUPIROCIN 2% TOPICAL OINTMENT FOR DECOLONIZATION NS SCH ×2 (10:13→21:56)
[2018-02-09 10:44] LABS: PLATELET ESTIMATE NORMAL
--- NOTE | 2018-02-09 11:20 | PN ---
Progress Note (short form) - Note Progress Note: 77 year old male history of DM, HTN, CAD ,ESRD s/p trasplant. He has been with home PT and has episode of unreponsiveness, fro which he does not seems to recover.His blood pressure was high and pulse reate was 20s and he was given atropine. Patient is being treated with abx empirically and he was hypothermic. Patient has no episode of seizure or hemiparesis. He is moving all extremity . His ct head is unremarkable His pupils were asymmetric, he was intubated and he is off sedation and seems he is waking up. He is able to open eye , but no responding to verbal stimuli , He do withdraw to painful tsimuli His csf looks benign and unlikley to be meningitis . He is being treated empirically with antibiotics - Neurological Examination He is intubated and off sedation, have mild fever today he is trying to open his eye and not able to follow command he do withdraw to painful stimuli Pupils is still asymmetrical 3mm and left is 5 mm and very sluggishly reactive to light Corneal reflex are present ct head is unremarkable csf show no meningitis Assessment- ? Possible mild hypoxic ischemic Encephalopathy secondary to syncopal episode , cliically there was no evidence of seizure like activity, csf is benign and no evidence of meningitis, except rbc present which could be due to truama 2.Asymmetry of pupil could be either local eye pathology vs physiological anisocoria - continue supportive treatment, Patient may need mri of brain once he is stable - I would order an EEG for possible seizure, clinically less likely Thanking you so much -
--- NOTE | 2018-02-09 12:02 | PN ---
Teaching Attending Note Name of Resident: Chema Enamorado ATTENDING PHYSICIAN STATEMENT I saw and evaluated the patient. I reviewed the resident's note and discussed the case with the resident. I agree with the resident's findings and plan as documented. SUBJECTIVE: Patient seen and examined in the ICU. Intubated. No pressors. Poorly responsive despite being off sedation (Versed). CXR: No acute process Intake & Output 02/06/18 02/07/18 02/08/18 02/09/18 23:59 23:59 23:59 23:59 Intake Total 66 520 Output Total 350 1300 Balance -284 -780 Weight 150 lb 0.005 oz 158 lb 2 oz Last Vital Signs Temp Pulse Resp BP Pulse Ox 100.2 F H 96 H 15 144/34 100 02/09/18 09:00 02/09/18 09:00 02/09/18 11:41 02/09/18 09:00 02/08/18 18:35 Active Medications Chlorhexidine Gluconate (Hibiclens For Decolonization -) 1 applic TP HS HUGO Sodium Chloride (Normal Saline -) 1,000 mls @ 42 mls/hr IV ASDIR HUGO Last Admin: 02/08/18 13:51 Dose: 42 mls/hr Midazolam HCl 100 mg/ Sodium (Chloride) 100 mls @ 1 mls/hr IVPB TITR HUGO; 1 MG/ HR PRN Reason: Protocol Last Titration: 02/08/18 20:37 Dose: 0 mg/hr, 0 mls/hr Norepinephrine Bitartrate 8, (000 mcg/ Dextrose) 500 mls @ 18.75 mls/hr IV TITR HUGO; 5 MCG/MIN PRN Reason: Protocol Last Titration: 02/08/18 22:00 Dose: 0 mcg/min, 0 mls/hr Piperacillin Sod/Tazobactam (Sod 4.5 gm/ Dextrose) 100 mls @ 200 mls/hr IVPB Q8H-IV HUGO PRN Reason: Protocol Last Admin: 02/09/18 10:11 Dose: 200 mls/hr Insulin Aspart (Novolog Vial Sliding Scale -) 1 vial SQ ACHS HUGO PRN Reason: Protocol Last Admin: 02/09/18 06:32 Dose: 4 units Mupirocin (Bactroban Ointment (For Decolonization) -) 1 applic NS BID HUGO Stop: 02/14/18 09:59 Last Admin: 02/09/18 10:13 Dose: 1 applic Mycophenolate Sodium (Mycophenolic Acid) 360 mg PO BID [facility] Last Admin: 02/09/18 10:11 Dose: 360 mg Prednisone (Deltasone -) 5 mg PO DAILY [facility] Tacrolimus (Prograf) 1 mg PO BID [facility] Last Admin: 02/09/18 10:12 Dose: 1 mg Constitutional: Yes: Intubated, poorly responsive Eyes: Yes: Cataracts (R). No: PERRL HENT: Yes: Atraumatic, Normocephalic Neck: No: Lymphadenopathy Cardiovascular: Yes: Regular Rate and Rhythm, S1 Respiratory: Yes: CTA Bilaterally, Intubated. No: Accessory Muscle Use Gastrointestinal: Yes: Normal Bowel Sounds, Soft Renal/: Yes: WNL, Monahan Present Extremities: Yes: Cool Edema: Yes Edema: LUE: Trace, RUE: Trace, LLE: Trace, RLE: Trace Peripheral Pulses WNL: Yes Neurological: Yes: Poorly responsive not on sedation Labs: Laboratory Results - last 24 hr 02/08/18 02/08/18 02/08/18 13:03 13:15 13:38 WBC 12.7 H RBC 4.49 Hgb 13.1 D Hct 40.3 MCV 89.8 MCH 29.1 MCHC 32.5 RDW 16.3 H Plt Count 266 MPV 8.4 Neutrophils % 56.2 Neutrophils % (Manual) Band Neutrophils % Lymphocytes % 31.8 D Lymphocytes % (Manual) Monocytes % 8.1 Monocytes % (Manual) Eosinophils % 3.1 Eosinophils % (Manual) Basophils % 0.8 Basophils % (Manual) Myelocytes % (Man) Promyelocytes % (Man) Blast Cells % (Manual) Nucleated RBC % Metamyelocytes Platelet Estimate [place] Cells PT with INR INR Anticoagulation Therapy Puncture Site ABG pH ABG pCO2 at Pt Temp ABG pO2 at Pt Temp ABG HCO3 ABG O2 Sat (Measured) ABG O2 Content ABG Base Excess Patrice Test VBG pH POC VBG pCO2 POC VBG pO2 Mixed VBG HCO3 Carboxyhemoglobin Methemoglobin O2 Delivery Device Oxygen Flow Rate Vent Mode Vent Rate Mechanical Rate PEEP Pressure Support Vent Sodium Potassium Chloride Carbon Dioxide Anion Gap BUN Creatinine Creat Clearance w eGFR POC Glucometer Random Glucose Lactic Acid Calcium Phosphorus Magnesium Total Bilirubin AST ALT Alkaline Phosphatase Creatine Kinase Troponin I Total Protein Albumin Triglycerides Cholesterol Total LDL Cholesterol HDL Cholesterol TSH Urine Color Straw Urine Appearance Clear Urine pH 5.0 Ur Specific [place] 1.009 Urine Protein Negative Urine Glucose (UA) Negative Urine Ketones Negative Urine Blood Negative Urine Nitrite Negative Urine Bilirubin Negative Urine Urobilinogen Negative Ur Leukocyte Esterase Negative CSF Appearance CSF Color CSF WBC CSF RBC CSF Neutrophils CSF Lymphocytes CSF Eosinophils CSF Basophils CSF Macrophages CSF Plasma Cells CSF Diff Comment CSF Comment CSF Glucose CSF Total Protein Stool Occult Blood Blood Type O POSITIVE Antibody Screen Negative 02/08/18 02/08/18 02/08/18 13:38 13:38 17:55 WBC RBC Hgb Hct MCV MCH MCHC RDW Plt Count MPV Neutrophils % Neutrophils % (Manual) Band Neutrophils % Lymphocytes % Lymphocytes % (Manual) Monocytes % Monocytes % (Manual) Eosinophils % Eosinophils % (Manual) Basophils % Basophils % (Manual) Myelocytes % (Man) Promyelocytes % (Man) Blast Cells % (Manual) Nucleated RBC % Metamyelocytes Platelet Estimate [place] Cells PT with INR 11.00 INR 0.97 Anticoagulation Therapy Puncture Site ABG pH ABG pCO2 at Pt Temp ABG pO2 at Pt Temp ABG HCO3 ABG O2 Sat (Measured) ABG O2 Content ABG Base Excess Patrice Test VBG pH 7.32 POC VBG pCO2 44.0 POC VBG pO2 122.0 H D Mixed VBG HCO3 22.0 Carboxyhemoglobin Methemoglobin O2 Delivery Device Oxygen Flow Rate Vent Mode Vent Rate Mechanical Rate PEEP Pressure Support Vent Sodium 139 Potassium 4.5 Chloride 102 Carbon Dioxide 23 Anion Gap 14 BUN 42 H D Creatinine 1.3 D Creat Clearance w eGFR 53.82 POC Glucometer Random Glucose 146 H D Lactic Acid Calcium 9.3 Phosphorus Magnesium Total Bilirubin 0.4 D AST 15 ALT 30 Alkaline Phosphatase 132 H D Creatine Kinase 40 Troponin I 0.02 Total Protein 7.3 Albumin 3.8 Triglycerides 118 Cholesterol 160 Total LDL Cholesterol 91 D HDL Cholesterol 52 TSH Urine Color Urine Appearance Urine pH Ur Specific [place] Urine Protein Urine Glucose (UA) Urine Ketones Urine Blood Urine Nitrite Urine Bilirubin Urine Urobilinogen Ur Leukocyte Esterase CSF Appearance CSF Color CSF WBC CSF RBC CSF Neutrophils CSF Lymphocytes CSF Eosinophils CSF Basophils CSF Macrophages CSF Plasma Cells CSF Diff Comment CSF Comment CSF Glucose CSF Total Protein Stool Occult Blood Blood Type Antibody Screen 02/08/18 02/08/18 02/08/18 17:55 18:30 18:30 WBC RBC Hgb Hct MCV MCH MCHC RDW Plt Count MPV Neutrophils % Neutrophils % (Manual) Band Neutrophils % Lymphocytes % Lymphocytes % (Manual) Monocytes % Monocytes % (Manual) Eosinophils % Eosinophils % (Manual) Basophils % Basophils % (Manual) Myelocytes % (Man) Promyelocytes % (Man) Blast Cells % (Manual) Nucleated RBC % Metamyelocytes Platelet Estimate [place] Cells PT with INR INR Anticoagulation Therapy Puncture Site ABG pH ABG pCO2 at Pt Temp ABG pO2 at Pt Temp ABG HCO3 ABG O2 Sat (Measured) ABG O2 Content ABG Base Excess Patrice Test VBG pH POC VBG pCO2 POC VBG pO2 Mixed VBG HCO3 Carboxyhemoglobin Methemoglobin O2 Delivery Device Oxygen Flow Rate Vent Mode Vent Rate Mechanical Rate PEEP Pressure Support Vent Sodium Potassium Chloride Carbon Dioxide Anion Gap BUN Creatinine Creat Clearance w eGFR POC Glucometer Random Glucose Lactic Acid 1.8 Calcium Phosphorus Magnesium Total Bilirubin AST ALT Alkaline Phosphatase Creatine Kinase Troponin I Total Protein Albumin Triglycerides Cholesterol Total LDL Cholesterol HDL Cholesterol TSH Urine Color Urine Appearance Urine pH Ur Specific [place] Urine Protein Urine Glucose (UA) Urine Ketones Urine Blood Urine Nitrite Urine Bilirubin Urine Urobilinogen Ur Leukocyte Esterase CSF Appearance Clear Clear CSF Color Colorless Colorless CSF WBC 0 0 CSF RBC 650.00 150 CSF Neutrophils No Result Required. No Result Required. CSF Lymphocytes No Result Required. CSF Eosinophils No Result Required. CSF Basophils No Result Required. CSF Macrophages No Result Required. CSF Plasma Cells No Result Required. CSF Diff Comment CSF Comment No Result Required. CSF Glucose CSF Total Protein Stool Occult Blood Blood Type Antibody Screen 02/08/18 02/08/18 02/08/18 18:30 18:30 19:50 WBC RBC Hgb Hct MCV MCH MCHC RDW Plt Count MPV Neutrophils % Neutrophils % (Manual) Band Neutrophils % Lymphocytes % Lymphocytes % (Manual) Monocytes % Monocytes % (Manual) Eosinophils % Eosinophils % (Manual) Basophils % Basophils % (Manual) Myelocytes % (Man) Promyelocytes % (Man) Blast Cells % (Manual) Nucleated RBC % Metamyelocytes Platelet Estimate [place] Cells PT with INR INR Anticoagulation Therapy No Result Required. Puncture Site Left radial ABG pH 7.32 L ABG pCO2 at Pt Temp 44.2 ABG pO2 at Pt Temp 135.0 H D ABG HCO3 22.1 ABG O2 Sat (Measured) 98.8 ABG O2 Content 17.2 ABG Base Excess -3.4 L Patrice Test Positive VBG pH POC VBG pCO2 POC VBG pO2 Mixed VBG HCO3 Carboxyhemoglobin 1.1 Methemoglobin 1.2 O2 Delivery Device Vent Oxygen Flow Rate 60 Vent Mode A/c Vent Rate 14 Mechanical Rate Yes PEEP 5.0 Pressure Support Vent 450 Sodium Potassium Chloride Carbon Dioxide Anion Gap BUN Creatinine Creat Clearance w eGFR POC Glucometer Random Glucose Lactic Acid Calcium Phosphorus Magnesium Total Bilirubin AST ALT Alkaline Phosphatase Creatine Kinase Troponin I Total Protein Albumin Triglycerides Cholesterol Total LDL Cholesterol HDL Cholesterol TSH Urine Color Urine Appearance Urine pH Ur Specific [place] Urine Protein Urine Glucose (UA) Urine Ketones Urine Blood Urine Nitrite Urine Bilirubin Urine Urobilinogen Ur Leukocyte Esterase CSF Appearance CSF Color CSF WBC CSF RBC CSF Neutrophils CSF Lymphocytes CSF Eosinophils CSF Basophils CSF Macrophages CSF Plasma Cells CSF Diff Comment CSF Comment CSF Glucose 119 H CSF Total Protein 63 H Stool Occult Blood Blood Type Antibody Screen 02/08/18 02/08/18 02/08/18 21:00 22:00 22:15 WBC RBC Hgb Hct MCV MCH MCHC RDW Plt Count MPV Neutrophils % Neutrophils % (Manual) Band Neutrophils % Lymphocytes % Lymphocytes % (Manual) Monocytes % Monocytes % (Manual) Eosinophils % Eosinophils % (Manual) Basophils % Basophils % (Manual) Myelocytes % (Man) Promyelocytes % (Man) Blast Cells % (Manual) Nucleated RBC % Metamyelocytes Platelet Estimate [place] Cells PT with INR INR Anticoagulation Therapy Puncture Site ABG pH ABG pCO2 at Pt Temp ABG pO2 at Pt Temp ABG HCO3 ABG O2 Sat (Measured) ABG O2 Content ABG Base Excess Patrice Test VBG pH POC VBG pCO2 POC VBG pO2 Mixed VBG HCO3 Carboxyhemoglobin Methemoglobin O2 Delivery Device Oxygen Flow Rate Vent Mode Vent Rate Mechanical Rate PEEP Pressure Support Vent Sodium Potassium Chloride Carbon Dioxide Anion Gap BUN Creatinine Creat Clearance w eGFR POC Glucometer [phone] Random Glucose Lactic Acid Calcium Phosphorus Magnesium Total Bilirubin AST ALT Alkaline Phosphatase Creatine Kinase Troponin I 0.02 Total Protein Albumin Triglycerides Cholesterol Total LDL Cholesterol HDL Cholesterol TSH Urine Color Urine Appearance Urine pH Ur Specific [place] Urine Protein Urine Glucose (UA) Urine Ketones Urine Blood Urine Nitrite Urine Bilirubin Urine Urobilinogen Ur Leukocyte Esterase CSF Appearance CSF Color CSF WBC CSF RBC CSF Neutrophils CSF Lymphocytes CSF Eosinophils CSF Basophils CSF Macrophages CSF Plasma Cells CSF Diff Comment CSF Comment CSF Glucose CSF Total Protein Stool Occult Blood Positive Blood Type Antibody Screen 02/09/18 02/09/18 02/09/18 06:10 06:10 06:29 WBC 24.8 H D RBC 4.31 Hgb 12.7 Hct 38.5 MCV 89.3 MCH 29.4 MCHC 33.0 RDW 15.8 Plt Count 293 MPV 8.5 Neutrophils % No Result Required. Neutrophils % (Manual) 84.0 H D Band Neutrophils % 1.0 Lymphocytes % No Result Required. Lymphocytes % (Manual) 6.0 L D Monocytes % Monocytes % (Manual) 8 Eosinophils % Eosinophils % (Manual) 0.0 D Basophils % Basophils % (Manual) 0.0 Myelocytes % (Man) 0 D Promyelocytes % (Man) 0 Blast Cells % (Manual) 0 Nucleated RBC % 0 Metamyelocytes 0 Platelet Estimate Normal [place] Cells 1+ PT with INR INR Anticoagulation Therapy Puncture Site ABG pH ABG pCO2 at Pt Temp ABG pO2 at Pt Temp ABG HCO3 ABG O2 Sat (Measured) ABG O2 Content ABG Base Excess Patrice Test VBG pH POC VBG pCO2 POC VBG pO2 Mixed VBG HCO3 Carboxyhemoglobin Methemoglobin O2 Delivery Device Oxygen Flow Rate Vent Mode Vent Rate Mechanical Rate PEEP Pressure Support Vent Sodium 138 Potassium 4.5 Chloride 102 Carbon Dioxide 23 Anion Gap 13 BUN 42 H Creatinine 1.3 Creat Clearance w eGFR 53.82 POC Glucometer [phone] Random Glucose 204 H D Lactic Acid Calcium 8.6 Phosphorus 4.5 D Magnesium 1.9 Total Bilirubin 0.7 D AST 10 L D ALT 25 Alkaline Phosphatase 98 D Creatine Kinase Troponin I Total Protein 6.0 L Albumin 3.1 L Triglycerides Cholesterol Total LDL Cholesterol HDL Cholesterol TSH 0.64 D Urine Color Urine Appearance Urine pH Ur Specific [place] Urine Protein Urine Glucose (UA) Urine Ketones Urine Blood Urine Nitrite Urine Bilirubin Urine Urobilinogen Ur Leukocyte Esterase CSF Appearance CSF Color CSF WBC CSF RBC CSF Neutrophils CSF Lymphocytes CSF Eosinophils CSF Basophils CSF Macrophages CSF Plasma Cells CSF Diff Comment CSF Comment CSF Glucose CSF Total Protein Stool Occult Blood Blood Type Antibody Screen 02/09/18 10:35 WBC RBC Hgb Hct MCV MCH MCHC RDW Plt Count MPV Neutrophils % Neutrophils % (Manual) Band Neutrophils % Lymphocytes % Lymphocytes % (Manual) Monocytes % Monocytes % (Manual) Eosinophils % Eosinophils % (Manual) Basophils % Basophils % (Manual) Myelocytes % (Man) Promyelocytes % (Man) Blast Cells % (Manual) Nucleated RBC % Metamyelocytes Platelet Estimate [place] Cells PT with INR INR Anticoagulation Therapy Puncture Site ABG pH ABG pCO2 at Pt Temp ABG pO2 at Pt Temp ABG HCO3 ABG O2 Sat (Measured) ABG O2 Content ABG Base Excess Patrice Test VBG pH POC VBG pCO2 POC VBG pO2 Mixed VBG HCO3 Carboxyhemoglobin Methemoglobin O2 Delivery Device Oxygen Flow Rate Vent Mode Vent Rate Mechanical Rate PEEP Pressure Support Vent Sodium Potassium Chloride Carbon Dioxide Anion Gap BUN Creatinine Creat Clearance w eGFR POC Glucometer [phone] Random Glucose Lactic Acid Calcium Phosphorus Magnesium Total Bilirubin AST ALT Alkaline Phosphatase Creatine Kinase Troponin I Total Protein Albumin Triglycerides Cholesterol Total LDL Cholesterol HDL Cholesterol TSH Urine Color Urine Appearance Urine pH Ur Specific [place] Urine Protein Urine Glucose (UA) Urine Ketones Urine Blood Urine Nitrite Urine Bilirubin Urine Urobilinogen Ur Leukocyte Esterase CSF Appearance CSF Color CSF WBC CSF RBC CSF Neutrophils CSF Lymphocytes CSF Eosinophils CSF Basophils CSF Macrophages CSF Plasma Cells CSF Diff Comment CSF Comment CSF Glucose CSF Total Protein Stool Occult Blood Blood Type Antibody Screen Assessment/Plan: 77 M, syncope while working w/ PT, bradycardia, hypotension and AMS which did not fully resolve. (?) Seizure Suspected MARILEE Neuro workup ongoing Hold all sedation IVF Will D/W Renal if [place] should be held Wean trials once mental status improves ABX per ID Follow Telemetry Pressors for MAP < [address] Melgar Critical care time spent in reviewing chart, evaluating patient and formulating plan - 36 minutes.
[2018-02-09] MEDS: predniSONE 5 MG TABLET (UD) PO SCH (12:22)
[2018-02-09] MEDS ORDERED: SODIUM CHLORIDE 0.9% 500 ML INFUS.BAG IV ONE (12:28)
--- NOTE | 2018-02-09 12:38 | PN ---
Progress Note, Physician Chief Complaint: patient seen and examined in ICU non verbal off sedation not responsive on ventilator pupils asymterical temp 100.3 - Current Medication List Current Medications: Active Medications Chlorhexidine Gluconate (Hibiclens For Decolonization -) 1 applic TP HS HUGO Sodium Chloride (Normal Saline -) 1,000 mls @ 42 mls/hr IV ASDIR [facility] Last Admin: 02/08/18 13:51 Dose: 42 mls/hr Midazolam HCl 100 mg/ Sodium (Chloride) 100 mls @ 1 mls/hr IVPB TITR HUGO; 1 MG/ HR PRN Reason: Protocol Last Titration: 02/08/18 20:37 Dose: 0 mg/hr, 0 mls/hr Norepinephrine Bitartrate 8, (000 mcg/ Dextrose) 500 mls @ 18.75 mls/hr IV TITR HUGO; 5 MCG/MIN PRN Reason: Protocol Last Titration: 02/08/18 22:00 Dose: 0 mcg/min, 0 mls/hr Piperacillin Sod/Tazobactam (Sod 4.5 gm/ Dextrose) 100 mls @ 200 mls/hr IVPB Q8H-IV HUGO PRN Reason: Protocol Last Admin: 02/09/18 10:11 Dose: 200 mls/hr Insulin Aspart (Novolog Vial Sliding Scale -) 1 vial SQ ACHS HUGO PRN Reason: Protocol Last Admin: 02/09/18 12:21 Dose: 2 units Mupirocin (Bactroban Ointment (For Decolonization) -) 1 applic NS BID [facility] Stop: 02/14/18 09:59 Last Admin: 02/09/18 10:13 Dose: 1 applic Mycophenolate Sodium (Mycophenolic Acid) 360 mg PO BID [facility] Last Admin: 02/09/18 10:11 Dose: 360 mg Prednisone (Deltasone -) 5 mg PO DAILY [facility] Last Admin: 02/09/18 12:22 Dose: 5 mg Sodium Chloride (Normal Saline -) 500 ml IV ONCE ONE Stop: 02/09/18 12:29 Tacrolimus (Prograf) 1 mg PO BID [facility] Last Admin: 02/09/18 10:12 Dose: 1 mg - Objective Vital Signs: Vital Signs Temperature 100.3 F H 02/09/18 12:00 Pulse Rate 96 H 02/09/18 12:00 Respiratory Rate 16 02/09/18 12:00 Blood Pressure 127/47 03/22/18 12:00 O2 Sat by Pulse Oximetry (%) 100 02/08/18 18:35 Constitutional: Yes: Calm Eyes: Yes: Other (pupils asymterical) HENT: Yes: Other Cardiovascular: Yes: Regular Rate and Rhythm, S1, S2 Respiratory: Yes: Mechanically Ventilated Gastrointestinal: Yes: Normal Bowel Sounds, Soft Genitourinary: Yes: [place] Present Edema: No Neurological: Yes: Other (non verbal not responsive) Labs: CBC, BMP 02/09/18 06:10 02/09/18 06:10 INR, PTT INR 0.97 (0.82-1.09) 02/08/18 13:38 Problem List - Problems (1) Change in mental status Assessment/Plan: possible ischemic encephalopathy/ infectious elevated WBC count empiric abx coverage for 48 hrs EEG to r/o seizures LUmbar tap fluid elevated protein and glucose Code(s): R41.82 - ALTERED MENTAL STATUS, UNSPECIFIED (2) Acute respiratory failure Assessment/Plan: intubated Code(s): J96.00 - ACUTE RESPIRATORY FAILURE, UNSP W HYPOXIA OR HYPERCAPNIA (3) Hypotension Assessment/Plan: on pressors icu monitiring Code(s): I95.9 - HYPOTENSION, UNSPECIFIED (4) Renal transplant disorder Assessment/Plan: on tacrolimus and prednisone Code(s): T86.10 - UNSPECIFIED COMPLICATION OF KIDNEY TRANSPLANT
[2018-02-09] MEDS: SODIUM CHLORIDE 1,000 ML IV SCH (13:23)
[2018-02-09] MEDS: PIPERACILLIN/TAZOB 3.375 GM/50 ML PRE-DOCKED IVPB SCH ×2 (13:24→16:58)
[2018-02-09] MEDS ORDERED: ACETAMINOPHEN 1000 MG/100 ML VIAL (NON FORMULARY) IVPB PRN (13:38)
[2018-02-09] MEDS ORDERED: ACETAMINOPHEN 650 MG/20.3 ML ORAL SOLUTION (CUPS) PO PRN (14:24)
--- NOTE | 2018-02-09 14:30 | PN ---
Physical Exam: SUBJECTIVE: Mr. Abel unable to fully communicate at this time. OBJECTIVE: Vital Signs Period Temp Pulse Resp BP Sys/Mendoza Pulse Ox Last 24 Hr 94.2 F-100.3 F 58-97 14-18 63-160/13-96 100-100 GENERAL: The patient is currently on ventilator. Opens eyes with voice stimulation. Able to follow very simple commands when spoke to in own language. HEAD: Normal with no signs of trauma. EYES: +Right pupil significant for cataract - left round and reactive to light. Extraocular movements intact, sclera anicteric, conjunctiva clear. No ptosis. ENT: Ears normal, nares patent, oropharynx clear without exudates, moist mucous membranes. NECK: Trachea midline, full range of motion, supple. LUNGS: Breath sounds equal, clear to auscultation bilaterally, no wheezes, no crackles, no accessory muscle use. HEART: Regular rate and rhythm, S1, S2 without murmur, rub or gallop. ABDOMEN: Soft, nontender, nondistended, normoactive bowel sounds, no guarding, no rebound, no hepatosplenomegaly, no masses. EXTREMITIES: 2+ pulses, warm, well-perfused, no edema. NEUROLOGICAL: Cranial nerves II through XII grossly intact. Normal speech, gait not observed. PSYCH: +Unable to assess SKIN: Warm, dry, normal turgor, no rashes or lesions noted Laboratory Results - last 24 hr 02/08/18 02/08/18 02/08/18 13:15 13:38 17:55 WBC RBC Hgb Hct MCV MCH MCHC RDW Plt Count MPV Neutrophils % Neutrophils % (Manual) Band Neutrophils % Lymphocytes % Lymphocytes % (Manual) Monocytes % (Manual) Eosinophils % (Manual) Basophils % (Manual) Myelocytes % (Man) Promyelocytes % (Man) Blast Cells % (Manual) Nucleated RBC % Metamyelocytes Platelet Estimate Hany Cells Anticoagulation Therapy Puncture Site ABG pH ABG pCO2 at Pt Temp ABG pO2 at Pt Temp ABG HCO3 ABG O2 Sat (Measured) ABG O2 Content ABG Base Excess Patrice Test VBG pH 7.32 POC VBG pCO2 44.0 POC VBG pO2 122.0 H D Mixed VBG HCO3 22.0 Carboxyhemoglobin Methemoglobin O2 Delivery Device Oxygen Flow Rate Vent Mode Vent Rate Mechanical Rate PEEP Pressure Support Vent Sodium Potassium Chloride Carbon Dioxide Anion Gap BUN Creatinine Creat Clearance w eGFR POC Glucometer Random Glucose Lactic Acid Calcium Phosphorus Magnesium Total Bilirubin AST ALT Alkaline Phosphatase Troponin I Total Protein Albumin Total LDL Cholesterol 91 D HDL Cholesterol 52 TSH CSF Appearance CSF Color CSF WBC CSF RBC CSF Neutrophils CSF Lymphocytes CSF Eosinophils CSF Basophils CSF Macrophages CSF Plasma Cells CSF Diff Comment CSF Comment CSF Glucose CSF Total Protein Stool Occult Blood Random Vancomycin Blood Type O POSITIVE Antibody Screen Negative 02/08/18 02/08/18 02/08/18 17:55 18:30 18:30 WBC RBC Hgb Hct MCV MCH MCHC RDW Plt Count MPV Neutrophils % Neutrophils % (Manual) Band Neutrophils % Lymphocytes % Lymphocytes % (Manual) Monocytes % (Manual) Eosinophils % (Manual) Basophils % (Manual) Myelocytes % (Man) Promyelocytes % (Man) Blast Cells % (Manual) Nucleated RBC % Metamyelocytes Platelet Estimate Bruner Cells Anticoagulation Therapy Puncture Site ABG pH ABG pCO2 at Pt Temp ABG pO2 at Pt Temp ABG HCO3 ABG O2 Sat (Measured) ABG O2 Content ABG Base Excess Patrice Test VBG pH POC VBG pCO2 POC VBG pO2 Mixed VBG HCO3 Carboxyhemoglobin Methemoglobin O2 Delivery Device Oxygen Flow Rate Vent Mode Vent Rate Mechanical Rate PEEP Pressure Support Vent Sodium Potassium Chloride Carbon Dioxide Anion Gap BUN Creatinine Creat Clearance w eGFR POC Glucometer Random Glucose Lactic Acid 1.8 Calcium Phosphorus Magnesium Total Bilirubin AST ALT Alkaline Phosphatase Troponin I Total Protein Albumin Total LDL Cholesterol HDL Cholesterol TSH CSF Appearance Clear Clear CSF Color Colorless Colorless CSF WBC 0 0 CSF RBC 650.00 150 CSF Neutrophils No Result Required. No Result Required. CSF Lymphocytes No Result Required. CSF Eosinophils No Result Required. CSF Basophils No Result Required. CSF Macrophages No Result Required. CSF Plasma Cells No Result Required. CSF Diff Comment CSF Comment No Result Required. CSF Glucose CSF Total Protein Stool Occult Blood Random Vancomycin Blood Type Antibody Screen 02/08/18 02/08/18 02/08/18 18:30 18:30 19:50 WBC RBC Hgb Hct MCV MCH MCHC RDW Plt Count MPV Neutrophils % Neutrophils % (Manual) Band Neutrophils % Lymphocytes % Lymphocytes % (Manual) Monocytes % (Manual) Eosinophils % (Manual) Basophils % (Manual) Myelocytes % (Man) Promyelocytes % (Man) Blast Cells % (Manual) Nucleated RBC % Metamyelocytes Platelet Estimate Hany Cells Anticoagulation Therapy No Result Required. Puncture Site Left radial ABG pH 7.32 L ABG pCO2 at Pt Temp 44.2 ABG pO2 at Pt Temp 135.0 H D ABG HCO3 22.1 ABG O2 Sat (Measured) 98.8 ABG O2 Content 17.2 ABG Base Excess -3.4 L Patrice Test Positive VBG pH POC VBG pCO2 POC VBG pO2 Mixed VBG HCO3 Carboxyhemoglobin 1.1 Methemoglobin 1.2 O2 Delivery Device Vent Oxygen Flow Rate 60 Vent Mode A/c Vent Rate 14 Mechanical Rate Yes PEEP 5.0 Pressure Support Vent 450 Sodium Potassium Chloride Carbon Dioxide Anion Gap BUN Creatinine Creat Clearance w eGFR POC Glucometer Random Glucose Lactic Acid Calcium Phosphorus Magnesium Total Bilirubin AST ALT Alkaline Phosphatase Troponin I Total Protein Albumin Total LDL Cholesterol HDL Cholesterol TSH CSF Appearance CSF Color CSF WBC CSF RBC CSF Neutrophils CSF Lymphocytes CSF Eosinophils CSF Basophils CSF Macrophages CSF Plasma Cells CSF Diff Comment CSF Comment CSF Glucose 119 H CSF Total Protein 63 H Stool Occult Blood Random Vancomycin Blood Type Antibody Screen 02/08/18 02/08/18 02/08/18 21:00 22:00 22:15 WBC RBC Hgb Hct MCV MCH MCHC RDW Plt Count MPV Neutrophils % Neutrophils % (Manual) Band Neutrophils % Lymphocytes % Lymphocytes % (Manual) Monocytes % (Manual) Eosinophils % (Manual) Basophils % (Manual) Myelocytes % (Man) Promyelocytes % (Man) Blast Cells % (Manual) Nucleated RBC % Metamyelocytes Platelet Estimate Hany Cells Anticoagulation Therapy Puncture Site ABG pH ABG pCO2 at Pt Temp ABG pO2 at Pt Temp ABG HCO3 ABG O2 Sat (Measured) ABG O2 Content ABG Base Excess Patrice Test VBG pH POC VBG pCO2 POC VBG pO2 Mixed VBG HCO3 Carboxyhemoglobin Methemoglobin O2 Delivery Device Oxygen Flow Rate Vent Mode Vent Rate Mechanical Rate PEEP Pressure Support Vent Sodium Potassium Chloride Carbon Dioxide Anion Gap BUN Creatinine Creat Clearance w eGFR POC Glucometer [phone] Random Glucose Lactic Acid Calcium Phosphorus Magnesium Total Bilirubin AST ALT Alkaline Phosphatase Troponin I 0.02 Total Protein Albumin Total LDL Cholesterol HDL Cholesterol TSH CSF Appearance CSF Color CSF WBC CSF RBC CSF Neutrophils CSF Lymphocytes CSF Eosinophils CSF Basophils CSF Macrophages CSF Plasma Cells CSF Diff Comment CSF Comment CSF Glucose CSF Total Protein Stool Occult Blood Positive Random Vancomycin Blood Type Antibody Screen 02/09/18 02/09/18 02/09/18 06:10 06:10 06:29 WBC 24.8 H D RBC 4.31 Hgb 12.7 Hct 38.5 MCV 89.3 MCH 29.4 MCHC 33.0 RDW 15.8 Plt Count 293 MPV 8.5 Neutrophils % No Result Required. Neutrophils % (Manual) 84.0 H D Band Neutrophils % 1.0 Lymphocytes % No Result Required. Lymphocytes % (Manual) 6.0 L D Monocytes % (Manual) 8 Eosinophils % (Manual) 0.0 D Basophils % (Manual) 0.0 Myelocytes % (Man) 0 D Promyelocytes % (Man) 0 Blast Cells % (Manual) 0 Nucleated RBC % 0 Metamyelocytes 0 Platelet Estimate Normal Hany Cells 1+ Anticoagulation Therapy Puncture Site ABG pH ABG pCO2 at Pt Temp ABG pO2 at Pt Temp ABG HCO3 ABG O2 Sat (Measured) ABG O2 Content ABG Base Excess Patrice Test VBG pH POC VBG pCO2 POC VBG pO2 Mixed VBG HCO3 Carboxyhemoglobin Methemoglobin O2 Delivery Device Oxygen Flow Rate Vent Mode Vent Rate Mechanical Rate PEEP Pressure Support Vent Sodium 138 Potassium 4.5 Chloride 102 Carbon Dioxide 23 Anion Gap 13 BUN 42 H Creatinine 1.3 Creat Clearance w eGFR 53.82 POC Glucometer [phone] Random Glucose 204 H D Lactic Acid Calcium 8.6 Phosphorus 4.5 D Magnesium 1.9 Total Bilirubin 0.7 D AST 10 L D ALT 25 Alkaline Phosphatase 98 D Troponin I Total Protein 6.0 L Albumin 3.1 L Total LDL Cholesterol HDL Cholesterol TSH 0.64 D CSF Appearance CSF Color CSF WBC CSF RBC CSF Neutrophils CSF Lymphocytes CSF Eosinophils CSF Basophils CSF Macrophages CSF Plasma Cells CSF Diff Comment CSF Comment CSF Glucose CSF Total Protein Stool Occult Blood Random Vancomycin Blood Type Antibody Screen 02/09/18 02/09/18 09:30 10:35 WBC RBC Hgb Hct MCV MCH MCHC RDW Plt Count MPV Neutrophils % Neutrophils % (Manual) Band Neutrophils % Lymphocytes % Lymphocytes % (Manual) Monocytes % (Manual) Eosinophils % (Manual) Basophils % (Manual) Myelocytes % (Man) Promyelocytes % (Man) Blast Cells % (Manual) Nucleated RBC % Metamyelocytes Platelet Estimate Bruner Cells Anticoagulation Therapy Puncture Site ABG pH ABG pCO2 at Pt Temp ABG pO2 at Pt Temp ABG HCO3 ABG O2 Sat (Measured) ABG O2 Content ABG Base Excess Patrice Test VBG pH POC VBG pCO2 POC VBG pO2 Mixed VBG HCO3 Carboxyhemoglobin Methemoglobin O2 Delivery Device Oxygen Flow Rate Vent Mode Vent Rate Mechanical Rate PEEP Pressure Support Vent Sodium Potassium Chloride Carbon Dioxide Anion Gap BUN Creatinine Creat Clearance w eGFR POC Glucometer [phone] Random Glucose Lactic Acid Calcium Phosphorus Magnesium Total Bilirubin AST ALT Alkaline Phosphatase Troponin I Total Protein Albumin Total LDL Cholesterol HDL Cholesterol TSH CSF Appearance CSF Color CSF WBC CSF RBC CSF Neutrophils CSF Lymphocytes CSF Eosinophils CSF Basophils CSF Macrophages CSF Plasma Cells CSF Diff Comment CSF Comment CSF Glucose CSF Total Protein Stool Occult Blood Random Vancomycin 7.515 Blood Type Antibody Screen Active Medications Generic Name Dose Route Start Last Admin Trade Name Freq PRN Reason Stop Dose Admin Acetaminophen 650 mg 02/09/18 14:24 Tylenol Oral Solution - PO Q4H PRN FEVER Chlorhexidine Gluconate 1 applic 02/08/18 22:00 Hibiclens For Decolonization - TP HS HUGO Sodium Chloride 1,000 mls @ 42 mls/hr 02/08/18 13:15 02/09/18 13:23 Normal Saline - IV 42 mls/hr ASDIR HUGO Administration Midazolam HCl 100 mg/ Sodium 100 mls @ 1 mls/hr 02/08/18 14:00 02/08/18 20:37 Chloride IVPB 0 mg/hr TITR HUGO 0 mls/hr Protocol Titration 1 MG/HR Norepinephrine Bitartrate 8, 500 mls @ 18.75 mls/hr 02/08/18 16:15 02/08/18 22:00 000 mcg/ Dextrose IV 0 mcg/min TITR HUGO 0 mls/hr Protocol Titration 5 MCG/MIN Piperacillin Sod/Tazobactam 100 mls @ 200 mls/hr 02/09/18 10:00 02/09/18 10: 11 Sod 4.5 gm/ Dextrose IVPB 200 mls/hr Q8H-IV HUGO Administration Protocol Insulin Aspart 1 vial 02/08/18 22:00 02/09/18 12:21 Novolog Vial Sliding Scale - SQ 2 units ACHS HUGO Administration Protocol Mupirocin 1 applic 02/09/18 10:00 02/09/18 10:13 Bactroban Ointment (For Decolonization) - NS 02/14/18 09:59 1 applic BID HUGO Administration Mycophenolate Sodium 360 mg 02/08/18 22:00 02/09/18 10:11 Mycophenolic Acid PO 360 mg BID HUGO Administration Prednisone 5 mg 02/09/18 10:00 02/09/18 12:22 Deltasone - PO 5 mg DAILY HUGO Administration Sodium Chloride 500 ml 02/09/18 12:28 02/09/18 11:50 Normal Saline - IV 02/09/18 12:29 500 ml ONCE ONE Administration Tacrolimus 1 mg 02/08/18 22:00 02/09/18 10:12 Prograf PO 1 mg BID HUGO Administration ASSESSMENT/PLAN: Mr. Abel is a 77 yo male 2/ pmh of HTN, DM, CAD s/p DE, ESRD w/ prior RUE AV fistula (failed with subsequent renal transplant) on immunosuppression s/p acute LOC during PT with bradycardia, Hypotension, and AMS; noted to have elevated opening pressure on LP, negative CT, currently intubated on prophylactic broad spectrum antibiotics. Neuro -Workup in progress w/ Dr. Garcia consulting -Head CT negative -Prednisone 5mg daily -Sedation held for further evaluation of neural status Immunology -Tacrolimus 1mg BID -Vanc 1 dose given in ER, Zosyn 4.5 q8hrs ordered; day 2. Endocrine -ISS for glucose control FEN -500ml NS bolus for hydration -Electrolyte repletion as needed -Will have speech evaluate for nutrition pending increased mental status Cardiology -Will follow telemetry -Will maintain MAP >65 with pressors as needed (currently off) Disposition -Patient to stay in ICU pending improvement of status Visit type - Emergency Visit Emergency Visit: Yes ED Registration Date: 02/08/18 Care time: The patient presented to the Emergency Department on the above date and was hospitalized for further evaluation of their emergent condition. - New Patient This patient is new to me today: Yes Date on this admission: 02/09/18 - Critical Care Critical Care patient: Yes Total Critical Care Time (in minutes): 40 Critical Care Statement: The care of this patient involved high complexity decision making to prevent further life threatening deterioration of the patient 's condition and/or to evaluate & treat vital organ system(s) failure or risk of failure.
--- NOTE | 2018-02-09 14:33 | EKG ---
Test Reason : Blood Pressure : / mmHG Vent. Rate : 094 BPM Atrial Rate : 094 BPM P-R Int : 150 ms QRS Dur : 144 ms QT Int : 394 ms P-R-T Axes : 023 -65 051 degrees QTc Int : 492 ms NORMAL SINUS RHYTHM RIGHT BUNDLE BRANCH BLOCK LEFT ANTERIOR FASCICULAR BLOCK BIFASCICULAR BLOCK ABNORMAL ECG WHEN COMPARED WITH ECG OF 08-FEB-2018 13:54, VENT. RATE HAS INCREASED BY 33 BPM Confirmed by NEEL BEAN MD ([id number]) on 02/09/2018 2:33:11 PM Referred By: Confirmed By:NEEL BEAN MD
--- NOTE | 2018-02-09 15:47 | PN ---
Progress Note, Physician History of Present Illness: Pt seen and examined at bedside. He remains in the ICU. He is following simple commands. He is awake but intubated. - Current Medication List Current Medications: Active Medications Acetaminophen (Tylenol Oral Solution -) 650 mg PO Q4H PRN PRN Reason: FEVER Chlorhexidine Gluconate (Hibiclens For Decolonization -) 1 applic TP HS HUGO Sodium Chloride (Normal Saline -) 1,000 mls @ 42 mls/hr IV ASDIR [facility] Last Admin: 02/09/18 13:23 Dose: 42 mls/hr Midazolam HCl 100 mg/ Sodium (Chloride) 100 mls @ 1 mls/hr IVPB TITR HUGO; 1 MG/ HR PRN Reason: Protocol Last Titration: 02/08/18 20:37 Dose: 0 mg/hr, 0 mls/hr Norepinephrine Bitartrate 8, (000 mcg/ Dextrose) 500 mls @ 18.75 mls/hr IV TITR HUGO; 5 MCG/MIN PRN Reason: Protocol Last Titration: 02/08/18 22:00 Dose: 0 mcg/min, 0 mls/hr Piperacillin Sod/Tazobactam (Sod 4.5 gm/ Dextrose) 100 mls @ 200 mls/hr IVPB Q8H-IV HUGO PRN Reason: Protocol Last Admin: 02/09/18 10:11 Dose: 200 mls/hr Insulin Aspart (Novolog Vial Sliding Scale -) 1 vial SQ ACHS HUGO PRN Reason: Protocol Last Admin: 02/09/18 12:21 Dose: 2 units Mupirocin (Bactroban Ointment (For Decolonization) -) 1 applic NS BID [facility] Stop: 02/14/18 09:59 Last Admin: 02/09/18 10:13 Dose: 1 applic Mycophenolate Sodium (Mycophenolic Acid) 360 mg PO BID [facility] Last Admin: 02/09/18 10:11 Dose: 360 mg Prednisone (Deltasone -) 5 mg PO DAILY [facility] Last Admin: 02/09/18 12:22 Dose: 5 mg Tacrolimus (Prograf) 1 mg PO BID [facility] Last Admin: 02/09/18 10:12 Dose: 1 mg - Objective Vital Signs: Vital Signs Temperature 100 F H 02/09/18 14:00 Pulse Rate 94 H 02/09/18 14:00 Respiratory Rate 15 02/09/18 14:35 Blood Pressure 114/48 02/09/18 14:00 O2 Sat by Pulse Oximetry (%) 100 02/08/18 18:35 Constitutional: Yes: Anxious Eyes: Yes: Conjunctiva Clear Cardiovascular: Yes: S1, S2 Respiratory: Yes: Mechanically Ventilated Gastrointestinal: Yes: Normal Bowel Sounds, Soft Genitourinary: Yes: Monahan Present, Other (graft soft and non tender) Musculoskeletal: Yes: Muscle Weakness Edema: No Neurological: Yes: Lethargy Labs: CBC, BMP 02/09/18 06:10 02/09/18 06:10 INR, PTT INR 0.97 (0.82-1.09) 02/08/18 13:38 Problem List - Problems (1) Acute respiratory failure Code(s): J96.00 - ACUTE RESPIRATORY FAILURE, UNSP W HYPOXIA OR HYPERCAPNIA (2) Bradycardia Code(s): R00.1 - BRADYCARDIA, UNSPECIFIED (3) Hypotension Code(s): I95.9 - HYPOTENSION, UNSPECIFIED (4) Renal transplant disorder Code(s): T86.10 - UNSPECIFIED COMPLICATION OF KIDNEY TRANSPLANT (5) Shock Code(s): R57.9 - SHOCK, UNSPECIFIED Assessment/Plan Current Medications Generic Name Dose Route Start Last Admin Trade Name Freq PRN Reason Stop Dose Admin Acetaminophen 650 mg 02/09/18 14:24 Tylenol Oral Solution - PO Q4H PRN FEVER Chlorhexidine Gluconate 1 applic 02/08/18 22:00 Hibiclens For Decolonization - TP HS HUGO Sodium Chloride 1,000 mls @ 42 mls/hr 02/08/18 13:15 02/09/18 13:23 Normal Saline - IV 42 mls/hr ASDIR HUGO Administration Midazolam HCl 100 mg/ Sodium 100 mls @ 1 mls/hr 02/08/18 14:00 02/08/18 20:37 Chloride IVPB 0 mg/hr TITR HUGO 0 mls/hr Protocol Titration 1 MG/HR Norepinephrine Bitartrate 8, 500 mls @ 18.75 mls/hr 02/08/18 16:15 02/08/18 22:00 000 mcg/ Dextrose IV 0 mcg/min TITR HUGO 0 mls/hr Protocol Titration 5 MCG/MIN Piperacillin Sod/Tazobactam 100 mls @ 200 mls/hr 02/09/18 10:00 02/09/18 10: 11 Sod 4.5 gm/ Dextrose IVPB 200 mls/hr Q8H-IV HUGO Administration Protocol Insulin Aspart 1 vial 02/08/18 22:00 02/09/18 12:21 Novolog Vial Sliding Scale - SQ 2 units ACHS HUGO Administration Protocol Mupirocin 1 applic 02/09/18 10:00 02/09/18 10:13 Bactroban Ointment (For Decolonization) - NS 02/14/18 09:59 1 applic BID HUGO Administration Mycophenolate Sodium 360 mg 02/08/18 22:00 02/09/18 10:11 Mycophenolic Acid PO 360 mg BID HUGO Administration Prednisone 5 mg 02/09/18 10:00 02/09/18 12:22 Deltasone - PO 5 mg DAILY HUGO Administration Tacrolimus 1 mg 02/08/18 22:00 02/09/18 10:12 Prograf PO 1 mg BID HUGO Administration Impression 1. CKD 2. kidney transplant 3. DM 4. hx of syncope 5. HTN 6. hyperlipidemia 7. acute respiratory failure requiring intubation 8. change in mental status 9. bradycardia 10. r/o sepsis 11. r/o meningitis Plan - follow prograf level - renal function is stable - agree with bolus - follow cultures - vent support - sedation held, pt moving extremities - prograf 1 mg q 12 hrs, mycophenolate 360 bid, prednisone 5 mg daily are his transplant meds Dr Perez
[2018-02-09] MEDS ORDERED: SODIUM CHLORIDE 250 ML IV STA (17:37)
[2018-02-09] MEDS ORDERED: SODIUM CHLORIDE 500 ML IV STA (19:14)
--- NOTE | 2018-02-09 23:25 | PN ---
Progress Note (short form) - Note Progress Note: Late entry: Pt self-extubated earlier. Currently pt is saturating at 100% in no acute distress watching TV. Upon auscultation pt has slight coarse breath sounds anteriorly.
[2018-02-10] MEDS ORDERED: PT OWN MED DRAWER 7, Y5N ONE ×2 (02:30→09:26)
[2018-02-10] MEDS: PIPERACILLIN/TAZOB 4.5 GM 4.5 GM in DEXTROSE 5%-WATER - 100 ML IVPB SCH (02:35)
[2018-02-10] MEDS: INSULIN SLIDING SCALE (NOVOLOG) 1 VIAL SQ SCH ×4 (06:35→23:12)
[2018-02-10 07:09] LABS: BASO % 0.2 % (0-2.0); EOS % 0.1 % (0-4.5); HEMATOCRIT 36.8 % (35.4-49); HEMOGLOBIN 11.9 GM/dL (11.7-16.9); LYMPH % 12.2 % (8-40); MCH 29.2 pg (25.7-33.7); MCHC 32.4 g/dl (32.0-35.9); MEAN CELL VOLUME 90.1 fl (80-96); MEAN PLT VOLUME 8.7 fl (7.5-11.1); MONO % 9.4 % (3.8-10.2); NEUT % 78.1 % (42.8-82.8); PLATELET COUNT 222 K/MM3 (134-434); RBC 4.08 M/mm3 (4.00-5.60); RDW 16.6 % (11.9-15.9); WHITE BLOOD COUNT 19.7 K/mm3 (4.0-10.0)
[2018-02-10 07:52] LABS: ALBUMIN 2.6 g/dl (3.4-5.0); ANION GAP 8 (8-16); BILIRUBIN,TOTAL 0.4 mg/dL (0.2-1.0); BLOOD UREA NITROGEN 26 mg/dL (7-18); CALCIUM 8.1 mg/dL (8.5-10.1); CHLORIDE 110 mmol/L (98-107); CO2 24 mmol/L (21-32); CREATININE 1.1 mg/dL (0.7-1.3); GLUCOSE,RANDOM 109 mg/dL (74-106); MAGNESIUM 1.7 mg/dL (1.8-2.4); POTASSIUM 3.9 mmol/L (3.5-5.1); SGOT/AST 11 U/L (15-37); SGPT/ALT 17 U/L (12-78); SODIUM 142 mmol/L (136-145); TOT PROT 5.5 g/dl (6.4-8.2)
--- NOTE | 2018-02-10 07:52 | PN ---
Progress Note, Physician Chief Complaint: ID Self extubated !! Alert NAD Zosym empiric for "sepsis" Low grade fevers noted Diarrhea overnight C diff sent Ag pos Toxin neg - Current Medication List Current Medications: Active Medications Acetaminophen (Tylenol Oral Solution -) 650 mg PO Q4H PRN PRN Reason: FEVER Last Admin: 02/09/18 15:51 Dose: 650 mg Chlorhexidine Gluconate (Hibiclens For Decolonization -) 1 applic TP HS [facility] Last Admin: 02/09/18 21:57 Dose: 1 applic Sodium Chloride (Normal Saline -) 1,000 mls @ 42 mls/hr IV ASDIR HUGO Last Admin: 02/09/18 13:23 Dose: 42 mls/hr Piperacillin Sod/Tazobactam (Sod 4.5 gm/ Dextrose) 100 mls @ 200 mls/hr IVPB Q8H-IV HUGO PRN Reason: Protocol Last Admin: 02/10/18 02:35 Dose: 200 mls/hr Insulin Aspart (Novolog Vial Sliding Scale -) 1 vial SQ ACHS HUGO PRN Reason: Protocol Last Admin: 02/10/18 06:35 Dose: 2 units Mupirocin (Bactroban Ointment (For Decolonization) -) 1 applic NS BID [facility] Stop: 02/14/18 09:59 Last Admin: 02/09/18 21:56 Dose: 1 applic Mycophenolate Sodium (Mycophenolic Acid) 360 mg PO BID [facility] Last Admin: 02/09/18 21:55 Dose: Not Given Prednisone (Deltasone -) 5 mg PO DAILY [facility] Last Admin: 02/09/18 12:22 Dose: 5 mg Tacrolimus (Prograf) 1 mg PO BID [facility] Last Admin: 02/09/18 21:55 Dose: Not Given - Objective Vital Signs: Vital Signs Temperature 98 F 02/10/18 06:00 Pulse Rate 88 02/10/18 06:00 Respiratory Rate 22 02/10/18 06:00 Blood Pressure 144/56 02/10/18 06:00 O2 Sat by Pulse Oximetry (%) 100 02/09/18 20:41 Cardiovascular: Yes: S1, S2 Respiratory: Yes: WNL, Regular, CTA Bilaterally Gastrointestinal: Yes: Normal Bowel Sounds, Soft. No: Tenderness Edema: No Labs: CBC, BMP 02/10/18 05:45 INR, PTT INR 0.97 (0.82-1.09) 02/08/18 13:38 Problem List - Problems (1) Sepsis Code(s): A41.9 - SEPSIS, UNSPECIFIED ORGANISM (2) Hypotension Code(s): I95.9 - HYPOTENSION, UNSPECIFIED (3) Renal transplant disorder Code(s): T86.10 - UNSPECIFIED COMPLICATION OF KIDNEY TRANSPLANT Assessment/Plan Microbiology 02/08/18 22:00 Stool Clostridium difficile Antigen (DAHLIA) - Final 02/08/18 22:00 Stool Clostridium difficile Toxin Assay - Final 02/08/18 18:30 Cerebral Spinal Fluid - Lumbar Puncture Gram Stain - Final 02/08/18 17:55 Blood - Peripheral Venous Blood Culture - Preliminary NO GROWTH OBTAINED AFTER 24 HOURS, INCUBATION TO CONTINUE FOR 4 DAYS. 02/08/18 17:55 Blood - Peripheral Venous Blood Culture - Preliminary NO GROWTH OBTAINED AFTER 24 HOURS, INCUBATION TO CONTINUE FOR 4 DAYS. Laboratory Tests 02/08/18 02/09/18 02/09/18 13:03 06:10 09:30 WBC Hgb Hct Plt Count Neutrophils % Lymphocytes % Monocytes % Eosinophils % Basophils % BUN 42 H Creatinine 1.3 Creat Clearance w eGFR 53.82 Ur Leukocyte Esterase Negative Random Vancomycin 7.515 02/10/18 05:45 WBC 19.7 H Hgb 11.9 Hct 36.8 Plt Count 222 D Neutrophils % 78.1 D Lymphocytes % 12.2 D Monocytes % 9.4 Eosinophils % 0.1 D Basophils % 0.2 BUN Creatinine Creat Clearance w eGFR Ur Leukocyte Esterase Random Vancomycin Assessment Fevers, low grade, leukocytosis, diarrhea and C diff Ag positive ( toxin neg) algorithm would be C diff PCR next and treatment. His blood cultures no growth Urine pending Chest xray negative Post extubation Plan Stop Zosyn Send stool C diff PCR Start oral vancomycin 125mg qid Erika SILVA
[2018-02-10 07:53] LABS: ALK PHOS 78 U/L (45-117)
[2018-02-10] MEDS: MUPIROCIN 2% TOPICAL OINTMENT FOR DECOLONIZATION NS SCH (10:15)
[2018-02-10] MEDS: predniSONE 5 MG TABLET (UD) PO SCH (10:16)
[2018-02-10] MEDS: MYCOPHENOLATE SODIUM 360 MG TABLET.DR PO SCH ×2 (10:17→21:12)
[2018-02-10] MEDS: TACROLIMUS ANHYDROUS 1 MG CAPSULE PO SCH ×2 (10:18→21:11)
--- NOTE | 2018-02-10 10:50 | PN ---
Progress Note, Physician Chief Complaint: patient awake and alert self extubated himself yesterday diarrhea started on po vancomycin - Current Medication List Current Medications: Active Medications Acetaminophen (Tylenol Oral Solution -) 650 mg PO Q4H PRN PRN Reason: FEVER Last Admin: 02/09/18 15:51 Dose: 650 mg Chlorhexidine Gluconate (Hibiclens For Decolonization -) 1 applic TP HS PENDING SALE TO [facility] Last Admin: 02/09/18 21:57 Dose: 1 applic Sodium Chloride (Normal Saline -) 1,000 mls @ 42 mls/hr IV ASDIR PENDING SALE TO [facility] Last Admin: 02/09/18 13:23 Dose: 42 mls/hr Insulin Aspart (Novolog Vial Sliding Scale -) 1 vial SQ ACHS PENDING SALE TO [facility] PRN Reason: Protocol Last Admin: 02/10/18 06:35 Dose: 2 units Mupirocin (Bactroban Ointment (For Decolonization) -) 1 applic NS BID PEND[facility] SALE TO [facility] Stop: 02/14/18 09:59 Last Admin: 02/10/18 10:15 Dose: 1 applic Mycophenolate Sodium (Mycophenolic Acid) 360 mg PO BID PENDING SALE TO [facility] Last Admin: 02/10/18 10:17 Dose: 360 mg Prednisone (Deltasone -) 5 mg PO DAILY PENDING SALE TO [facility] Last Admin: 02/10/18 10:16 Dose: 5 mg Tacrolimus (Prograf) 1 mg PO BID PENDING SALE TO [facility] Last Admin: 02/10/18 10:18 Dose: 1 mg Vancomycin HCl (Vancomycin Oral Solution) 125 mg PO Q6HPO PENDING SALE TO [facility] - Objective Vital Signs: Vital Signs Temperature 98 F 02/10/18 06:00 Pulse Rate 80 02/10/18 08:00 Respiratory Rate 22 02/10/18 08:28 Blood Pressure 112/49 02/10/18 08:00 O2 Sat by Pulse Oximetry (%) 100 02/09/18 20:41 Constitutional: Yes: Calm, Thin Cardiovascular: Yes: Regular Rate and Rhythm, S1, S2 Respiratory: Yes: CTA Bilaterally Gastrointestinal: Yes: Normal Bowel Sounds, Soft Genitourinary: Yes: Monahan Present Edema: No Neurological: Yes: Alert, Oriented Labs: CBC, BMP 02/10/18 05:45 02/10/18 05:45 INR, PTT INR 0.97 (0.82-1.09) 02/08/18 13:38 Problem List - Problems (1) Diarrhea Assessment/Plan: po vancomcyin Code(s): R19.7 - DIARRHEA, UNSPECIFIED (2) Change in mental status Assessment/Plan: possible ischemic encephalopathy/ infectious- mental status much improved elevated WBC count- trending down still elevated zosyn stopped started on po vancomycin EEG to r/o seizures LUmbar tap fluid elevated protein and glucose Microbiology 02/08/18 22:00 Stool Clostridium difficile Antigen (DAHLIA) - Final 02/08/18 22:00 Stool Clostridium difficile Toxin Assay - Final Code(s): R41.82 - ALTERED MENTAL STATUS, UNSPECIFIED (3) Acute respiratory failure Assessment/Plan: self extubated on nasal canula Code(s): J96.00 - ACUTE RESPIRATORY FAILURE, UNSP W HYPOXIA OR HYPERCAPNIA (4) Hypotension Assessment/Plan: much improved off presoors Code(s): I95.9 - HYPOTENSION, UNSPECIFIED (5) Renal transplant disorder Assessment/Plan: on tacrolimus and prednisone, mycophenalate Code(s): T86.10 - UNSPECIFIED COMPLICATION OF KIDNEY TRANSPLANT
[2018-02-10] MEDS ORDERED: VANCOMYCIN 250 MG/5 ML ORAL SOLUTION PO SCH (12:00)
[2018-02-10] MEDS ORDERED: ACETAMINOPHEN 650 MG/20.3 ML ORAL SOLUTION (CUPS) PO PRN (12:38)
--- NOTE | 2018-02-10 12:38 | PN ---
Teaching Attending Note Name of Resident: Chema Enamorado ATTENDING PHYSICIAN STATEMENT I saw and evaluated the patient. I reviewed the resident's note and discussed the case with the resident. I agree with the resident's findings and plan as documented. SUBJECTIVE: Patient seen and examined in the ICU. Self extubated last night, now on NC O2. Responsive but confused. Denies CP or SOB. CXR: Poor expiratory effort: increased central vascular markings Intake & Output 02/07/18 02/08/18 02/09/18 02/10/18 23:59 23:59 23:59 23:59 Intake Total 66 1456 1100 Output Total 350 2200 850 Balance -284 -744 250 Weight 150 lb 0.005 oz 158 lb 2 oz 150 lb 8 oz Last Vital Signs Temp Pulse Resp BP Pulse Ox 98 F 80 22 112/49 100 02/10/18 06:00 02/10/18 08:00 02/10/18 08:28 02/10/18 08:00 02/09/18 20:41 Active Medications Acetaminophen (Tylenol Oral Solution -) 650 mg PO Q4H PRN PRN Reason: FEVER Sodium Chloride (Normal Saline -) 1,000 mls @ 42 mls/hr IV ASDIR HUGO Insulin Aspart (Novolog Vial Sliding Scale -) 1 vial SQ ACHS HUGO PRN Reason: Protocol Mycophenolate Sodium (Mycophenolic Acid) 360 mg PO BID HUGO Prednisone (Deltasone -) 5 mg PO DAILY HUGO Tacrolimus (Prograf) 1 mg PO BID HUGO Vancomycin HCl (Vancomycin Oral Solution) 125 mg PO Q6HPO HUGO Constitutional: Yes: Extubated, awake and responsive Eyes: Yes: Cataracts (R). No: PERRL HENT: Yes: Atraumatic, Normocephalic Neck: No: Lymphadenopathy Cardiovascular: Yes: Regular Rate and Rhythm, S1 Respiratory: Yes: Clear. No: Accessory Muscle Use Gastrointestinal: Yes: Normal Bowel Sounds, Soft Renal/: Yes: WNL, Monahan Present Extremities: Yes: Cool Edema: Yes Edema: LUE: Trace, RUE: Trace, LLE: Trace, RLE: Trace Peripheral Pulses WNL: Yes Neurological: Yes: Non-focal, confused Labs: Laboratory Results - last 24 hr 02/09/18 02/09/18 02/09/18 09:30 18:26 22:26 WBC RBC Hgb Hct MCV MCH MCHC RDW Plt Count MPV Neutrophils % Lymphocytes % Monocytes % Eosinophils % Basophils % Sodium Potassium Chloride Carbon Dioxide Anion Gap BUN Creatinine Creat Clearance w eGFR POC Glucometer 173.27591 133.44885 Random Glucose Calcium Phosphorus Magnesium Total Bilirubin AST ALT Alkaline Phosphatase Total Protein Albumin Random Vancomycin 7.515 02/10/18 02/10/18 02/10/18 05:45 05:45 06:30 WBC 19.7 H RBC 4.08 Hgb 11.9 Hct 36.8 MCV 90.1 MCH 29.2 MCHC 32.4 RDW 16.6 H Plt Count 222 D MPV 8.7 Neutrophils % 78.1 D Lymphocytes % 12.2 D Monocytes % 9.4 Eosinophils % 0.1 D Basophils % 0.2 Sodium 142 Potassium 3.9 Chloride 110 H Carbon Dioxide 24 Anion Gap 8 BUN 26 H D Creatinine 1.1 Creat Clearance w eGFR > 60 POC Glucometer 157.45781 Random Glucose 109 H D Calcium 8.1 L Phosphorus 3.0 D Magnesium 1.7 L Total Bilirubin 0.4 D AST 11 L ALT 17 D Alkaline Phosphatase 78 D Total Protein 5.5 L Albumin 2.6 L Random Vancomycin 02/10/18 11:58 WBC RBC Hgb Hct MCV MCH MCHC RDW Plt Count MPV Neutrophils % Lymphocytes % Monocytes % Eosinophils % Basophils % Sodium Potassium Chloride Carbon Dioxide Anion Gap BUN Creatinine Creat Clearance w eGFR POC Glucometer [phone] Random Glucose Calcium Phosphorus Magnesium Total Bilirubin AST ALT Alkaline Phosphatase Total Protein Albumin Random Vancomycin Assessment/Plan: 77 M, syncope while working w/ PT, bradycardia, hypotension and AMS which did not fully resolve. HTN IDDM CAD s/p ID ESRD with renal transplant 2008 (?) Seizure Continue transplant meds O2 as needed Aspiration precautions ABX per ID Follow Telemetry D/C TLC D/C [facility] Telemetry monitoring Dr Melgar Critical care time spent in reviewing chart, evaluating patient and formulating plan - 36 minutes.
--- NOTE | 2018-02-10 13:27 | CONSULT ---
Admitting History and Physical - Admission History of Present Illness: Per EMR: History of Present Illness: Briefly Mr Page is a 77 year old man with history of HTN, DM, CAD s/p RI, ESRD s/p nonworking RUE AV fistula s/p renal transplant 2008 on chronic immunosuppression who presented today in ED via EMS for hypotension, bradycardia , and unresponsiveness requiring intubation and vasopressors. Pt was at home, working with PT (after fall with rib fxs) today when had unprecipitated syncopal episode. EMS was called, pt was bradycardic and hypotensive with HR 20s. Received atropine with return to normal HR. Urgently transferred to ED where pt remained obtunded but now with hypertension, was hypothermic. . Was intubated for airway protection, underwent CT head which was negative for acute pathology. Was deeply sedated for CT and LP (no WBC, slightly elevated protein, glu 119) and became hypotensive. LIJ TLC was placed and pt started on Levophed. IVF given and BP improved. Started on empiric broad spectrum (vanco/piptaz). Transferred to ICU for further care. Self-extubated last night. Tolerated medication in applesauce this am. Known to me from previous evaluations, MBS x 2. Last mbs 12/05/17 revealed stasis in pharynx and intermittent penetration/silent aspiration on both thick and thin liquid. REC: Dys chopped/nectar and sw tx rec at that time/Transferred to [facility]. Since that time, pt's daughter reports that she had swallowing tx, and was at [facility] and a [place], upgraded to reg diet and thin liquid without recurrent bronchitis/PNA. MBS was not repeated but clinically pt reportedly did well with diet upgrade. Pt was only home 2 days from [place] before this admission. Selected Entries 02/09/18 02/09/18 02/09/18 02:00 06:00 08:54 Supper Temperature 99.4 F 99.9 F H 99.8 F H 02/09/18 02/09/18 02/09/18 09:00 12:00 14:00 Supper Temperature 100.2 F H 100.3 F H 100 F H 02/09/18 02/09/18 02/09/18 16:00 18:00 20:00 Supper Temperature 99.9 F H 99.5 F 99.2 F 02/09/18 02/10/18 02/10/18 22:00 02:00 06:00 Supper Temperature 98 F 97.9 F 98 F 02/10/18 02/10/18 08:19 10:00 Supper NPO Temperature 98.3 F Laboratory Tests 02/08/18 02/09/18 02/10/18 13:38 06:10 05:45 WBC 12.7 H 24.8 H D 19.7 H History Source: Family Member, Medical Record Limitations to Obtaining History: Clinical Condition (baseline confusion) - Past Medical History Cardiovascular: Yes: CAD (CABG), HTN, Other (PAD, heel osteo in 04/05) Renal/: Yes: Other (S/P Kidney tranplant 2008. 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) Endocrine: Yes: Diabetes Mellitus - Past Surgical History Past Surgical History: Yes: AV Fistula/Graft (right upper arm, non working), CABG, Kidney Transplant (right 2009) - Smoking History Smoking history: Never smoked Have you smoked in the past 12 months: No Aproximately how many cigarettes per day: 0 - Alcohol/Substance Use Hx Alcohol Use: No History of Substance Use: reports: None - Social History ADL: Support Services History of Recent Travel: No History - Admission Reason For Visit: ALTERED MENTAL STATUS - Diagnostics X-ray: Report Reviewed - General Mental Status: Awake and Alert, Able to Follow Commands, Confused (but conversant) Attention: Intact Ability to Follow Directions: Good Head/Neck Control: WFL - Hearing Hearing: Normal Speech Evaluation - Communication Primary Language: YI - Speech Production Able to Make Needs Known: Yes: Mildly Impaired Intelligibility: Yes: Mildly Impaired - Speech Characteristics Voice Loudness: Mildly Soft/Quiet Voice Pitch: Yes: Normal Voice Phonatory-based Quality: Yes: Hoarse, Dysphonia Nasal Resonance: Normal Articulation: Yes: Imprecise - Language/Auditory Comprehension Follows: Yes: 1 Stage Simple Commands Observation: Able to respond to yes/no queries: Yes, Comprehends Conversational Speech: Yes - Language/Verbal Expression Able to Communicate Wants and Needs: Yes: WNL Functional Communication Status: Yes: WNL - Swallow Evaluation/Bedside Assessment Current Nutritional Intake: NPO Oral Secretions: Yes: WFL Dentition: Yes: Adequate Facial Symmetry at Rest: Symmetrical Facial Symmetry on Retraction: Symmetrical Sensation: Normal Against Resistance Opening: Normal Against Resistance Closing: Normal Pucker Lips: Normal Smile: Normal Lingual Movement: Normal, Symmetric Lingual Speed of Movement: Normal Lingual Movement Strgth Against Opposition: Normal Lingual Movement Characteristics: Normal Velopharyngeal Movement: Normal Laryngeal Movement: Labored,delay initiation Labial Seal: WFL Oral Prep Time: WFL A-P Transit: WFL Timing of Swallow: Delayed Coughing/Throat Clear: No Change in Voice: No Recommendations - Speech Evaluation, Impression/Plan Impression: Pt with h/o silent aspiration on last mbs 11/2017. Clinically improved and has been enjoying reg diet/thin liquids without recurrent PNA. Now with self extubation and hoarse voice. Overtly tolerates puree and nectar thick liquid. - Dysphagia Impressions/Plan Dysphagia Impressions: Risk of Aspiration, Ongoing Evaluation *Silent aspiration: cannot be R/O at bedside Dysphagia Treatment Plan: Chin Tuck/Down, 1/2 tsp. at a time, Elevate HOB during feed Recommendations: Other (Monitor for congestion, fever,cough, MBS if indicated.) - Recommendations Diet Consistency: Dysphagia Pureed Medication Administration: Crushed with applesauce Liquids: [place] Thick Supplement: Magic Cup, Ensure Pudding
[2018-02-10] MEDS: SODIUM CHLORIDE 1,000 ML IV SCH (13:30)
--- NOTE | 2018-02-10 13:54 | PN ---
Progress Note (short form) - Note Progress Note: 77 year old male history of DM, HTN, CAD ,ESRD s/p trasplant. He has been with home PT and has episode of unreponsiveness, fro which he does not seems to recover.His blood pressure was high and pulse reate was 20s and he was given atropine. open eye , but no responding to verbal stimuli , He do withdraw to His csf looks benign and unlikley to be meningitis . Yesterday, he self extubated and now he is laying down in bed comfortably and talking to her daughter at bedside. As per daughter he is confused at time, though he was not diagnosed with any dementia. - Neurological Examination he is extubated He is alert and able to follow command, speech is normal He knows this is tuesday and january, but could not name hospital Pupils is still asymmetrical 3mm and left is 5 mm and very sluggishly reactive to light moving all extremity ct head is unremarkable csf show no meningitis Assessment- episode of mental status change after syncopal episode. He seems to be recovering. Likely explantion is transient anoxic/ischemic injury and recovering. No evidence of status , stroke or meningitis. 2.Asymmetry of pupil could be either local eye pathology vs physiological anisocoria Plan suggest to do mri of brain once he is stable Thanking you so much Tanvir Garcia MD -
--- NOTE | 2018-02-10 13:58 | PN ---
Physical Exam: SUBJECTIVE: Mr. Abel reports he is hungry and thirsty. No other complaints. OBJECTIVE: Vital Signs Period Temp Pulse Resp BP Sys/Mendoza Pulse Ox Last 24 Hr 97.9 F-100 F 80-95 14-26 108-154/24-90 100-100 GENERAL: The patient is awake, alert, and oriented to baseline per family member ; in no acute distress. HEAD: Normal with no signs of trauma. EYES: PERRL, extraocular movements intact, sclera anicteric, conjunctiva clear. No ptosis. ENT: Ears normal, nares patent, oropharynx clear without exudates, moist mucous membranes. NECK: Trachea midline, full range of motion, supple. LUNGS: Breath sounds equal, clear to auscultation bilaterally, no wheezes, no crackles, no accessory muscle use. HEART: Regular rate and rhythm, S1, S2 without murmur, rub or gallop. ABDOMEN: Soft, nontender, nondistended, normoactive bowel sounds, no guarding, no rebound, no hepatosplenomegaly, no masses. EXTREMITIES: 2+ pulses, warm, well-perfused, no edema. NEUROLOGICAL: Cranial nerves II through XII grossly intact. Normal speech, gait not observed. PSYCH: Normal mood, normal affect. SKIN: Warm, dry, normal turgor, no rashes or lesions noted Laboratory Results - last 24 hr 02/09/18 02/09/18 02/10/18 18:26 22:26 05:45 WBC 19.7 H RBC 4.08 Hgb 11.9 Hct 36.8 MCV 90.1 MCH 29.2 MCHC 32.4 RDW 16.6 H Plt Count 222 D MPV 8.7 Neutrophils % 78.1 D Lymphocytes % 12.2 D Monocytes % 9.4 Eosinophils % 0.1 D Basophils % 0.2 Sodium Potassium Chloride Carbon Dioxide Anion Gap BUN Creatinine Creat Clearance w eGFR POC Glucometer 173.07243 133.14526 Random Glucose Calcium Phosphorus Magnesium Total Bilirubin AST ALT Alkaline Phosphatase Total Protein Albumin 02/10/18 02/10/18 02/10/18 05:45 06:30 11:58 WBC RBC Hgb Hct MCV MCH MCHC RDW Plt Count MPV Neutrophils % Lymphocytes % Monocytes % Eosinophils % Basophils % Sodium 142 Potassium 3.9 Chloride 110 H Carbon Dioxide 24 Anion Gap 8 BUN 26 H D Creatinine 1.1 Creat Clearance w eGFR > 60 POC Glucometer 157.20902 158.51128 Random Glucose 109 H D Calcium 8.1 L Phosphorus 3.0 D Magnesium 1.7 L Total Bilirubin 0.4 D AST 11 L ALT 17 D Alkaline Phosphatase 78 D Total Protein 5.5 L Albumin 2.6 L Active Medications Generic Name Dose Route Start Last Admin Trade Name Freq PRN Reason Stop Dose Admin Acetaminophen 650 mg 02/10/18 12:38 Tylenol Oral Solution - PO Q4H PRN FEVER Sodium Chloride 1,000 mls @ 42 mls/hr 02/10/18 12:38 02/10/18 13:30 Normal Saline - IV 42 mls/hr ASDIR HUGO Administration Insulin Aspart 1 vial 02/10/18 16:30 Novolog Vial Sliding Scale - SQ ACHS HUGO Protocol Mycophenolate Sodium 360 mg 02/10/18 22:00 Mycophenolic Acid PO BID HUGO Prednisone 5 mg 02/11/18 10:00 Deltasone - PO DAILY HUGO Tacrolimus 1 mg 02/10/18 22:00 Prograf PO BID HUGO Vancomycin HCl 125 mg 02/10/18 18:00 Vancomycin Oral Solution PO Q6HPO [facility] ASSESSMENT/PLAN: Mr. Abel is a 77 yo male 2/ pmh of HTN, DM, CAD s/p [place], ESRD w/ prior RUE AV fistula (failed with subsequent renal transplant) on immunosuppression s/p acute LOC during PT with bradycardia, Hypotension, and AMS; noted to have elevated opening pressure on LP, negative CT, self extubated overnight watching television with central line and rodriguez catheter removed today. Neuro -Workup in progress w/ Dr. Garcia consulting -Head CT negative -Prednisone 5mg daily Immunology -Tacrolimus 1mg BID -Vanc 1 dose given in ER, Zosyn 4.5 q8hrs ordered; day 3. Endocrine -ISS for glucose control FEN -Electrolyte repletion as needed -Will have speech evaluate for nutrition Cardiology -Telemetry -Central line removed as pressures require no further pressors Disposition -Patient to telemetry for further evaluation Visit type - Emergency Visit Emergency Visit: Yes ED Registration Date: 02/08/18 Care time: The patient presented to the Emergency Department on the above date and was hospitalized for further evaluation of their emergent condition. - New Patient This patient is new to me today: No - Critical Care Critical Care patient: Yes Total Critical Care Time (in minutes): 35 Critical Care Statement: The care of this patient involved high complexity decision making to prevent further life threatening deterioration of the patient 's condition and/or to evaluate & treat vital organ system(s) failure or risk of failure.
--- NOTE | 2018-02-10 15:26 | CON.CARD ---
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 Admitted after a syncopal event. EMS records document normal vital signs with HR 50s and normal BP. In the ER he was unresponsive and initially severely hypertensive and bradycardic with a HR in the 20s. Given atropine. He developed hypothermia and hypotension, was intubated and placed on pressors and emperic Abx. He has not had further bradycardic events. Off pressors. Now extubated. Alert and cooperative. Echocardiogram shows normal LV systolic function. TP negative. - History Source History Provided By: Medical Record - Past Medical History Cardio/Vascular: Yes: CAD (CABG), HTN, Other (PAD, heel osteo in 04/05) Renal/: Yes: Other (S/P Kidney tranplant 2008. 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) Endocrine: Yes: Diabetes Mellitus - Past Surgical History Past Surgical History: Yes: AV Fistula/Graft (right upper arm, non working), CABG, Kidney Transplant (right 2008) - Alcohol/Substance Use Hx Alcohol Use: No History of Substance Use: reports: None - Smoking History Smoking history: Never smoked Have you smoked in the past 12 months: No Aproximately how many cigarettes per day: 0 - Social History Usual Living Arrangement: Alone ADL: Support Services History of Recent Travel: No Home Medications - Allergies Allergies/Adverse Reactions: Allergies Allergy/AdvReac Type Severity Reaction Status Date / Time No Known Drug Allergies Allergy Verified 02/08/18 13:02 - Home Medications Home Medications: Ambulatory Orders Amlodipine Besylate [Norvasc -] 10 mg PO DAILY 05/17/17 Aspirin [Jena Chewable Aspirin] 81 mg PO HS 05/17/17 Atorvastatin Ca [Lipitor] 10 mg PO HS 05/17/17 Carvedilol [Coreg -] 25 mg PO BID 05/17/17 Duloxetine HCl [Cymbalta] 20 mg PO BID 05/17/17 Tamsulosin HCl [Flomax] 0.4 mg PO HS 05/17/17 predniSONE [Deltasone -] 5 mg PO DAILY 05/17/17 Acetaminophen [Tylenol .Regular Strength -] 650 mg PO Q4H PRN tablet 11/29/17 Tacrolimus 1 mg PO BID 11/29/17 Insulin (Levemir) [Levemir Vial] 8 units SQ HS ml 12/05/17 Insulin (Levemir) [Levemir Vial] 25 units SQ AM #0 ml 12/05/17 Docusate Sodium [Colace -] 100 mg PO BID PRN capsule 01/23/18 Heparin - 5,000 unit SQ BID vial 01/23/18 Insulin (Levemir) [Levemir Vial] 5 units SQ HS ml 01/23/18 Insulin (Levemir) [Levemir Vial] 26 units SQ DAILY@0900 ml 01/23/18 Insulin Sliding Scale [Novolog Vial Sliding Scale -] 1 vial SQ ACHS units 01/23 Mycophenolate Sodium [Mycophenolic Acid] 360 mg PO BID tablet. 01/23/18 hydrALAZINE HCL [Apresoline -] 25 mg PO BID tablet 01/23/18 predniSONE [Deltasone -] 5 mg PO DAILY tablet 01/23/18 Albuterol 2.5/Ipratropium 0.5 [Duoneb -] 1 amp NEB QID 02/08/18 Family Disease History - Family Disease History Family History: Unable to Obtain Review of Systems Unable to obtain ROS, reason: delirium Vital Signs: Vital Signs Temperature 98.3 F 02/10/18 10:00 Pulse Rate 86 02/10/18 12:00 Respiratory Rate 20 02/10/18 12:00 Blood Pressure 124/48 02/10/18 12:00 O2 Sat by Pulse Oximetry (%) 100 02/09/18 20:41 Constitutional: Yes: Well Nourished, No Distress, Calm Eyes: Yes: Conjunctiva Clear, EOM Intact HENT: Yes: Atraumatic, Normocephalic Neck: Yes: Supple, Trachea Midline Respiratory: Yes: Regular, CTA Bilaterally Gastrointestinal: Yes: Normal Bowel Sounds, Soft Cardiovascular: Yes: Regular Rate and Rhythm JVD: No Carotid Bruit: No PMI: Non-Displaced Heart Sounds: Yes: S1, S2 Murmur: No: Systolic Murmur, Diastolic Murmur Edema: No - Other Data Labs, Other Data: CBC, BMP 02/10/18 05:45 02/10/18 05:45 INR, PTT INR 0.97 (0.82-1.09) 02/08/18 13:38 NSR LAHB RBBB no STT changes Problem List - Problems (1) Bradycardia Code(s): R00.1 - BRADYCARDIA, UNSPECIFIED Assessment/Plan 77 M ischemic heart disease, bifasicular block sp CAB and renal transplant. Admitted with syncope. unresponsive with initially with normal vitals but developed hypertension, bradycardia but then hypotensive (HR was not slow at the time) with signs of possible infection. Echocardiogram and ECG are unchanged. Transient bradycardia likely due to respiratory compromise. No indication for pacing. Was hypertensive at the time. No contraindication to resuming Coreg.
--- NOTE | 2018-02-10 15:38 | PN ---
Progress Note, Physician History of Present Illness: Pt seen and examined at bedside. He self extubated last night. He is awake and alert. Mental status is at baseline. - Current Medication List Current Medications: Active Medications Acetaminophen (Tylenol Oral Solution -) 650 mg PO Q4H PRN PRN Reason: FEVER Sodium Chloride (Normal Saline -) 1,000 mls @ 42 mls/hr IV ASDIR [facility] Last Admin: 02/10/18 13:30 Dose: 42 mls/hr Insulin Aspart (Novolog Vial Sliding Scale -) 1 vial SQ ACHS [facility] PRN Reason: Protocol Mycophenolate Sodium (Mycophenolic Acid) 360 mg PO BID [facility] Prednisone (Deltasone -) 5 mg PO DAILY [facility] Tacrolimus (Prograf) 1 mg PO BID [facility] Vancomycin HCl (Vancomycin Oral Solution) 125 mg PO Q6HPO [facility] - Objective Vital Signs: Vital Signs Temperature 98.3 F 02/10/18 10:00 Pulse Rate 86 02/10/18 12:00 Respiratory Rate 20 02/10/18 12:00 Blood Pressure 124/48 02/10/18 12:00 O2 Sat by Pulse Oximetry (%) 100 02/09/18 20:41 Constitutional: Yes: Calm Eyes: Yes: Conjunctiva Clear HENT: Yes: Atraumatic Cardiovascular: Yes: S1, S2 Respiratory: Yes: CTA Bilaterally Gastrointestinal: Yes: Soft Genitourinary: Yes: Monahan Present Musculoskeletal: Yes: WNL Edema: No Integumentary: Yes: WNL Neurological: Yes: Confusion Psychiatric: Yes: Oriented Labs: CBC, BMP 02/10/18 05:45 02/10/18 05:45 INR, PTT INR 0.97 (0.82-1.09) 02/08/18 13:38 Problem List - Problems (1) Acute respiratory failure Code(s): J96.00 - ACUTE RESPIRATORY FAILURE, UNSP W HYPOXIA OR HYPERCAPNIA (2) Bradycardia Code(s): R00.1 - BRADYCARDIA, UNSPECIFIED (3) Hypotension Code(s): I95.9 - HYPOTENSION, UNSPECIFIED (4) Renal transplant disorder Code(s): T86.10 - UNSPECIFIED COMPLICATION OF KIDNEY TRANSPLANT (5) Shock Code(s): R57.9 - SHOCK, UNSPECIFIED Assessment/Plan Current Medications Generic Name Dose Route Start Last Admin Trade Name Freq PRN Reason Stop Dose Admin Acetaminophen 650 mg 02/10/18 12:38 Tylenol Oral Solution - PO Q4H PRN FEVER Sodium Chloride 1,000 mls @ 42 mls/hr 02/10/18 12:38 02/10/18 13:30 Normal Saline - IV 42 mls/hr ASDIR HUGO Administration Insulin Aspart 1 vial 02/10/18 16:30 Novolog Vial Sliding Scale - SQ ACHS [facility] Protocol Mycophenolate Sodium 360 mg 02/10/18 22:00 Mycophenolic Acid PO BID [facility] Prednisone 5 mg 02/11/18 10:00 Deltasone - PO DAILY [facility] Tacrolimus 1 mg 02/10/18 22:00 Prograf PO BID [facility] Vancomycin HCl 125 mg 02/10/18 18:00 Vancomycin Oral Solution PO Q6HPO [facility] Laboratory Tests 02/09/18 06:10 Tacrolimus Pending Impression 1. CKD 2. kidney transplant 3. DM 4. hx of syncope 5. HTN 6. hyperlipidemia 7. acute respiratory failure requiring intubation 8. change in mental status 9. bradycardia 10. r/o sepsis 11. r/o meningitis Plan - renal function is stable - pt extubated and doing well - follow prograf level - cont to follow cultures - prograf 1 mg q 12 hrs, mycophenolate 360 bid, prednisone 5 mg daily are his transplant meds Dr Perez
[2018-02-10] MEDS: VANCOMYCIN 250 MG/5 ML ORAL SOLUTION PO SCH ×2 (17:19→23:13)
--- NOTE | 2018-02-10 18:29 | CONSULT ---
Consult Consult Specialty:: endocrine Referred by:: dr.koorji pantoja Reason for Consultation:: diabetes mellitus sp renal transplant - History of Present Illness Chief Complaint: passed out at home History of Present Illness: 77 year old male with history of HTN, DM, CAD s/p NH, ESRD s/p nonworking RUE AV fistula s/p renal transplant 2008 on immunosuppresants presented to ED by EMS for loss of consciousness and unresponsive in the home during home PT. Previously admitted s/p fall with sustain rib fractures, pt was dc to SNF and then home. Today, he was doing home PT when he had a drop syncopal episode, unresponsive and per EMS agonal breathing. In ED BP initially was 190/110, bradycardia 20-30, BMG 150, unarousable to pain, he later became hypotensive and poorly responsive intubated and given pressors for hypotension and sepsis, in icu improved clinically and self extubated is awake alert and responsive. - History Source History Provided By: Patient - Past Medical History Cardio/Vascular: Yes: CAD (CABG), HTN, Other (PAD, heel osteo in 04/05) Renal/: Yes: Other (S/P Kidney tranplant 2008. 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) Endocrine: Yes: Diabetes Mellitus - Past Surgical History Past Surgical History: Yes: AV Fistula/Graft (right upper arm, non working), CABG, Kidney Transplant (right 2008) - Alcohol/Substance Use Hx Alcohol Use: No History of Substance Use: reports: None - Smoking History Smoking history: Never smoked Have you smoked in the past 12 months: No Aproximately how many cigarettes per day: 0 - Social History Usual Living Arrangement: Alone ADL: Support Services History of Recent Travel: No Home Medications - Allergies Allergies/Adverse Reactions: Allergies Allergy/AdvReac Type Severity Reaction Status Date / Time No Known Drug Allergies Allergy Verified 02/08/18 13:02 - Home Medications Home Medications: Ambulatory Orders Amlodipine Besylate [Norvasc -] 10 mg PO DAILY 05/17/17 Aspirin [Jena Chewable Aspirin] 81 mg PO HS 05/17/17 Atorvastatin Ca [Lipitor] 10 mg PO HS 05/17/17 Carvedilol [Coreg -] 25 mg PO BID 05/17/17 Duloxetine HCl [Cymbalta] 20 mg PO BID 05/17/17 Tamsulosin HCl [Flomax] 0.4 mg PO HS 05/17/17 predniSONE [Deltasone -] 5 mg PO DAILY 05/17/17 Acetaminophen [Tylenol .Regular Strength -] 650 mg PO Q4H PRN tablet 11/29/17 Tacrolimus 1 mg PO BID 11/29/17 Insulin (Levemir) [Levemir Vial] 8 units SQ HS ml 12/05/17 Insulin (Levemir) [Levemir Vial] 25 units SQ AM #0 ml 12/05/17 Docusate Sodium [Colace -] 100 mg PO BID PRN capsule 01/23/18 Heparin - 5,000 unit SQ BID vial 01/23/18 Insulin (Levemir) [Levemir Vial] 5 units SQ HS ml 01/23/18 Insulin (Levemir) [Levemir Vial] 26 units SQ DAILY@0900 ml 01/23/18 Insulin Sliding Scale [Novolog Vial Sliding Scale -] 1 vial SQ ACHS units 01/23 Mycophenolate Sodium [Mycophenolic Acid] 360 mg PO BID tablet. 01/23/18 hydrALAZINE HCL [Apresoline -] 25 mg PO BID tablet 01/23/18 predniSONE [Deltasone -] 5 mg PO DAILY tablet 01/23/18 Albuterol 2.5/Ipratropium 0.5 [Duoneb -] 1 amp NEB QID 02/08/18 Review of Systems - Review of Systems Constitutional: reports: Lethargy, Weakness Eyes: reports: No Symptoms HENT: reports: No Symptoms Neck: reports: No Symptoms Cardiovascular: reports: Shortness of Breath Respiratory: reports: Exercise Intolerance, SOB on Exertion Gastrointestinal: reports: Constipation Genitourinary: reports: No Symptoms Breasts: reports: No Symptoms Reported Musculoskeletal: reports: Muscle Pain, Muscle Cramps, Muscle Weakness Integumentary: reports: No Symptoms Neurological: reports: Unsteady Gait, Weakness Endocrine: reports: Unexplained Weight Loss Physical Exam Vital Signs: Vital Signs Temperature 98.3 F 02/10/18 10:00 Pulse Rate 85 02/10/18 14:00 Respiratory Rate 20 02/10/18 14:00 Blood Pressure 150/50 02/10/18 14:00 O2 Sat by Pulse Oximetry (%) 100 02/09/18 20:41 Constitutional: Yes: Anxious Eyes: Yes: EOM Intact HENT: Yes: Normocephalic Neck: Yes: Trachea Midline Cardiovascular: Yes: Regular Rate and Rhythm Respiratory: Yes: CTA Bilaterally Gastrointestinal: Yes: Normal Bowel Sounds ...Rectal Exam: Yes: Deferred Renal/: Yes: WNL Breast(s): Yes: WNL Musculoskeletal: Yes: Muscle Weakness Extremities: Yes: WNL Edema: No Neurological: Yes: Alert, Oriented Labs: CBC, BMP 02/10/18 05:45 02/10/18 05:45 Problem List - Problems (1) Type 2 diabetes mellitus with diabetic peripheral angiopathy with gangrene Code(s): E11.52 - TYPE 2 DIABETES W DIABETIC PERIPHERAL ANGIOPATHY W GANGRENE (2) Bradycardia Code(s): R00.1 - BRADYCARDIA, UNSPECIFIED (3) Change in mental status Code(s): R41.82 - ALTERED MENTAL STATUS, UNSPECIFIED (4) Hypotension Code(s): I95.9 - HYPOTENSION, UNSPECIFIED (5) Renal transplant disorder Code(s): T86.10 - UNSPECIFIED COMPLICATION OF KIDNEY TRANSPLANT Assessment/Plan Current Active Problems Acute respiratory failure (Acute) Bradycardia (Acute) Change in mental status (Acute) Collapse (Acute) Diarrhea (Acute) Hypotension (Acute) Renal transplant disorder (Acute) Sepsis (Acute) Shock (Acute) Syncope (Acute) Syncope and collapse (Acute) diabetes mellitus hyperglycemia diabetic neuropathy Abnormal Lab Results 02/10/18 02/10/18 05:45 05:45 WBC 19.7 H RDW 16.6 H Chloride 110 H BUN 26 H D Random Glucose 109 H D Calcium 8.1 L Magnesium 1.7 L AST 11 L Total Protein 5.5 L Albumin 2.6 L Laboratory Results - last 24 hr 02/09/18 02/09/18 02/10/18 18:26 22:26 05:45 WBC 19.7 H RBC 4.08 Hgb 11.9 Hct 36.8 MCV 90.1 MCH 29.2 MCHC 32.4 RDW 16.6 H Plt Count 222 D MPV 8.7 Neutrophils % 78.1 D Lymphocytes % 12.2 D Monocytes % 9.4 Eosinophils % 0.1 D Basophils % 0.2 Sodium Potassium Chloride Carbon Dioxide Anion Gap BUN Creatinine Creat Clearance w eGFR POC Glucometer 173.84621 133.83478 Random Glucose Calcium Phosphorus Magnesium Total Bilirubin AST ALT Alkaline Phosphatase Total Protein Albumin 02/10/18 02/10/18 02/10/18 05:45 06:30 11:58 WBC RBC Hgb Hct MCV MCH MCHC RDW Plt Count MPV Neutrophils % Lymphocytes % Monocytes % Eosinophils % Basophils % Sodium 142 Potassium 3.9 Chloride 110 H Carbon Dioxide 24 Anion Gap 8 BUN 26 H D Creatinine 1.1 Creat Clearance w eGFR > 60 POC Glucometer 157.54548 158.54503 Random Glucose 109 H D Calcium 8.1 L Phosphorus 3.0 D Magnesium 1.7 L Total Bilirubin 0.4 D AST 11 L ALT 17 D Alkaline Phosphatase 78 D Total Protein 5.5 L Albumin 2.6 L 02/10/18 16:15 WBC RBC Hgb Hct MCV MCH MCHC RDW Plt Count MPV Neutrophils % Lymphocytes % Monocytes % Eosinophils % Basophils % Sodium Potassium Chloride Carbon Dioxide Anion Gap BUN Creatinine Creat Clearance w eGFR POC Glucometer 198 Random Glucose Calcium Phosphorus Magnesium Total Bilirubin AST ALT Alkaline Phosphatase Total Protein Albumin Laboratory Tests 01/20/18 01/21/18 01/21/18 21:50 11:50 16:43 Sodium Potassium Chloride Carbon Dioxide Anion Gap Creatinine POC Glucometer 157 287 383 Random Glucose Calcium Phosphorus Magnesium 01/21/18 02/10/18 02/10/18 21:30 05:45 06:30 Sodium 142 Potassium 3.9 Chloride 110 H Carbon Dioxide 24 Anion Gap 8 Creatinine 1.1 POC Glucometer [phone] Random Glucose 109 H D Calcium 8.1 L Phosphorus 3.0 D Magnesium 1.7 L 02/10/18 02/10/18 11:58 16:15 Sodium Potassium Chloride Carbon Dioxide Anion Gap Creatinine POC Glucometer [phone] Random Glucose Calcium Phosphorus Magnesium plan: bgm ac hs novolog scale levemir 17 unit am daily ck hba1c [facility] home care
[2018-02-10] MEDS: INSULIN DETEMIR 100 UNITS/ML MDV SQ SCH (23:11)
[2018-02-11] MEDS: VANCOMYCIN 250 MG/5 ML ORAL SOLUTION PO SCH ×3 (06:33→18:06)
[2018-02-11] MEDS: INSULIN SLIDING SCALE (NOVOLOG) 1 VIAL SQ SCH ×4 (06:34→22:13)
[2018-02-11 07:24] LABS: BASO % 0.2 % (0-2.0); EOS % 0.7 % (0-4.5); HEMATOCRIT 36.4 % (35.4-49); HEMOGLOBIN 11.8 GM/dL (11.7-16.9); LYMPH % 14.4 % (8-40); MCHC 32.5 g/dl (32.0-35.9); MEAN CELL VOLUME 89.3 fl (80-96); MEAN PLT VOLUME 8.5 fl (7.5-11.1); NEUT % 75.7 % (42.8-82.8); PLATELET COUNT 224 K/MM3 (134-434); RBC 4.07 M/mm3 (4.00-5.60); RDW 16.1 % (11.9-15.9); WHITE BLOOD COUNT 16.4 K/mm3 (4.0-10.0)
[2018-02-11 07:46] LABS: CHLORIDE 109 mmol/L (98-107); POTASSIUM 3.8 mmol/L (3.5-5.1); SODIUM 142 mmol/L (136-145)
[2018-02-11 07:56] LABS: ALBUMIN 2.7 g/dl (3.4-5.0); ALK PHOS 81 U/L (45-117); ANION GAP 10 (8-16); BILIRUBIN,TOTAL 0.5 mg/dL (0.2-1.0); BLOOD UREA NITROGEN 15 mg/dL (7-18); CALCIUM 8.6 mg/dL (8.5-10.1); CO2 23 mmol/L (21-32); CREATININE 0.8 mg/dL (0.7-1.3); GLUCOSE,RANDOM 158 mg/dL (74-106); SGOT/AST 15 U/L (15-37); SGPT/ALT 15 U/L (12-78); TOT PROT 5.6 g/dl (6.4-8.2)
[2018-02-11] MEDS: predniSONE 5 MG TABLET (UD) PO SCH (09:38)
[2018-02-11] MEDS: TACROLIMUS ANHYDROUS 1 MG CAPSULE PO SCH ×2 (09:39→22:14)
[2018-02-11] MEDS ORDERED: PT OWN MED DRAWER 7, Y5N ONE ×3 (09:41→21:30)
[2018-02-11] MEDS: MYCOPHENOLATE SODIUM 360 MG TABLET.DR PO SCH ×2 (09:41→22:13)
--- NOTE | 2018-02-11 10:58 | PN ---
Progress Note (short form) - Note Progress Note: PULMONARY MORE RESPONSIVE/ANSWERS APPROPRIATELY LOW GRADE TEMPS/SELF EXTUBATED DAY#2 ANICTERIC SCATTERED CRACKLES S1S2 BS+ NO EDEMA LABS/MEDS/NOTES/IMAGES/MICRO REVIEWED SYNCOPE HTN IDDM CAD s/p [place] ESRD with renal transplant 2008 (?) Seizure Continue transplant meds O2 as needed Aspiration precautions ABX per ID Follow Telemetry D/C TLC D/C Hreo WEBSTER MD
--- NOTE | 2018-02-11 11:03 | PN ---
Progress Note (short form) - Note Progress Note: zosyn d/letitia yesterday more alert requesting water to drink on po vancomycin for cdiff antigen positive and diarrhea no fevers no diarrhea today Vital Signs Period Temp Pulse Resp BP Sys/Mendoza Pulse Ox Last 24 Hr 98.3 F-99.4 F 85-93 20-20 97-173/48-82 cor-rrr lungs clear abd soft,nt ext no edema CBC, BMP 02/11/18 05:10 02/11/18 05:10 Microbiology 02/08/18 18:30 Cerebral Spinal Fluid - Lumbar Puncture Gram Stain - Final 02/08/18 18:30 Cerebral Spinal Fluid - Lumbar Puncture CSF Culture - Final 02/08/18 17:55 Blood - Peripheral Venous Blood Culture - Preliminary NO GROWTH OBTAINED AFTER 48 HOURS, INCUBATION TO CONTINUE FOR 3 DAYS. 02/08/18 17:55 Blood - Peripheral Venous Blood Culture - Preliminary NO GROWTH OBTAINED AFTER 48 HOURS, INCUBATION TO CONTINUE FOR 3 DAYS. 02/10/18 11:40 Stool Clostridium difficile (PCR) - Preliminary 02/08/18 14:00 Urine - Urine Clean Catch Urine Culture - Final NO GROWTH OBTAINED 02/08/18 22:00 Stool Clostridium difficile Antigen (DAHLIA) - Final 02/08/18 22:00 Stool Clostridium difficile Toxin Assay - Final a/p resp failure/fevers- resolved s/p renal transplant DM diarreha with positive cdiff continue po vancomycin
--- NOTE | 2018-02-11 11:28 | PN ---
Progress Note, Physician History of Present Illness: Pt in no distress and remains extubated He denies and complaints and states he feels "great" Prograf level 3.6 C Diff + - Current Medication List Current Medications: Active Medications Acetaminophen (Tylenol Oral Solution -) 650 mg PO Q4H PRN PRN Reason: FEVER Sodium Chloride (Normal Saline -) 1,000 mls @ 42 mls/hr IV ASDIR [facility] Last Admin: 02/10/18 13:30 Dose: 42 mls/hr Insulin Aspart (Novolog Vial Sliding Scale -) 1 vial SQ ACHS [facility] PRN Reason: Protocol Last Admin: 02/11/18 06:34 Dose: 2 units Insulin Detemir (Levemir Vial) 17 units SQ HS [facility] Last Admin: 02/10/18 23:11 Dose: Not Given Mycophenolate Sodium (Mycophenolic Acid) 360 mg PO BID [facility] Last Admin: 02/11/18 09:41 Dose: 360 mg Prednisone (Deltasone -) 5 mg PO DAILY [facility] Last Admin: 02/11/18 09:38 Dose: 5 mg Tacrolimus (Prograf) 1 mg PO BID [facility] Last Admin: 02/11/18 09:39 Dose: 1 mg Vancomycin HCl (Vancomycin Oral Solution) 125 mg PO Q6HPO [facility] Last Admin: 02/11/18 06:33 Dose: 125 mg - Objective Vital Signs: Vital Signs Temperature 98.7 F 02/11/18 09:00 Pulse Rate 79 02/11/18 09:00 Respiratory Rate 22 02/11/18 09:00 Blood Pressure 142/42 02/11/18 09:00 O2 Sat by Pulse Oximetry (%) 98 02/11/18 09:00 Constitutional: Yes: No Distress Cardiovascular: Yes: S1, S2 Respiratory: Yes: CTA Bilaterally Gastrointestinal: Yes: Soft. No: Tenderness, Rebound Edema: No Labs: CBC, BMP 02/11/18 05:10 02/11/18 05:10 INR, PTT INR 0.97 (0.82-1.09) 02/08/18 13:38 Laboratory Tests 02/09/18 06:10 Tacrolimus 3.6 Assessment/Plan Impression 1. Improved azotemia now with Cr 0.8 from 1.1 2. kidney transplant 3. DM 4. hx of syncope 5. HTN 6. hyperlipidemia 7. S/P acute respiratory failure requiring intubation 8. S/P AMS 9. C Diff + Plan Continue with present anti rejection meds- prograf 1 mg q 12 hrs, mycophenolate 360 bid, prednisone 5 mg daily are his transplant meds Oral Vancomycin Dr Mike
[2018-02-11] MEDS: SODIUM CHLORIDE 1,000 ML IV SCH (12:45)
--- NOTE | 2018-02-11 21:51 | PN ---
Progress Note, Physician Chief Complaint: AMS - Current Medication List Current Medications: Active Medications Acetaminophen (Tylenol Oral Solution -) 650 mg PO Q4H PRN PRN Reason: FEVER Sodium Chloride (Normal Saline -) 1,000 mls @ 42 mls/hr IV ASDIR COUNTS [facility]CLUDE 234 BEDS AT THE [facility] Last Admin: 02/11/18 12:45 Dose: 42 mls/hr Insulin Aspart (Novolog Vial Sliding Scale -) 1 vial SQ ACHS [facility] 234 BEDS AT [facility] PRN Reason: Protocol Last Admin: 02/11/18 18:06 Dose: 6 units Insulin Detemir (Levemir Vial) 17 units SQ HS [facility]S [facility]CLUDE 234 BEDS AT THE [facility] Last Admin: 02/10/18 23:11 Dose: Not Given Mycophenolate Sodium (Mycophenolic Acid) 360 mg PO BID [facility]CLUDE 234 BEDS AT THE [facility] Last Admin: 02/11/18 09:41 Dose: 360 mg Prednisone (Deltasone -) 5 mg PO DAILY [facility]S INCLUDE 234 BEDS AT [facility] Last Admin: 02/11/18 09:38 Dose: 5 mg Tacrolimus (Prograf) 1 mg PO BID [facility]CLUDE 234 BEDS AT [facility] Last Admin: 02/11/18 09:39 Dose: 1 mg Vancomycin HCl (Vancomycin Oral Solution) 125 mg PO Q6HPO [facility]S [facility]CLUDE 234 BEDS AT [facility] Last Admin: 02/11/18 18:06 Dose: 125 mg - Objective Vital Signs: Vital Signs Temperature 97.2 F L 02/11/18 20:20 Pulse Rate 89 02/11/18 20:20 Respiratory Rate 20 02/11/18 20:20 Blood Pressure 127/59 02/11/18 20:20 O2 Sat by Pulse Oximetry (%) 98 02/11/18 09:00 Constitutional: Yes: Well Nourished, No Distress, Calm Cardiovascular: Yes: Regular Rate and Rhythm Respiratory: Yes: Regular Gastrointestinal: Yes: Normal Bowel Sounds, Soft Musculoskeletal: Yes: WNL Extremities: Yes: WNL Neurological: Yes: Alert, Confusion Psychiatric: Yes: Alert Labs: CBC, BMP 02/11/18 05:10 02/11/18 05:10 INR, PTT INR 0.97 (0.82-1.09) 02/08/18 13:38 Problem List - Problems (1) Acute respiratory failure Assessment/Plan: -pulmonary consult -nasal O2 -last CXR unremarkable Code(s): J96.00 - ACUTE RESPIRATORY FAILURE, UNSP W HYPOXIA OR HYPERCAPNIA (2) Diarrhea Assessment/Plan: -resolved -c-diff -ID on board -PO Vanco -maintain contact isolation Code(s): R19.7 - DIARRHEA, UNSPECIFIED (3) DM2 (diabetes mellitus, type 2) Assessment/Plan: -Uncontrolled -Endocrinology consult -BGM -insulin -Diabetic diet Code(s): E11.9 - TYPE 2 DIABETES MELLITUS WITHOUT COMPLICATIONS Qualifiers: Diabetes mellitus fdc insulin use: with fdc use (4) Change in mental status Assessment/Plan: -possible ischemic encephalopathy/ infectious- mental status much improved -elevated WBC count- trending down still elevated -PO Vanco -ID on board -Neuro consult appreciated -EEG pending -Lumbar tap fluid elevated protein and glucose Code(s): R41.82 - ALTERED MENTAL STATUS, UNSPECIFIED Assessment/Plan see problem list Physical therapy SNF
[2018-02-11] MEDS: INSULIN DETEMIR 100 UNITS/ML MDV SQ SCH (22:12)
[2018-02-12] MEDS: VANCOMYCIN 250 MG/5 ML ORAL SOLUTION PO SCH ×4 (00:50→17:30)
[2018-02-12] MEDS: INSULIN SLIDING SCALE (NOVOLOG) 1 VIAL SQ SCH ×4 (06:32→22:55)
[2018-02-12] MEDS ORDERED: PT OWN MED DRAWER 7, Y5N ONE (09:17)
[2018-02-12] MEDS: TACROLIMUS ANHYDROUS 1 MG CAPSULE PO SCH ×2 (10:12→22:55)
[2018-02-12] MEDS: predniSONE 5 MG TABLET (UD) PO SCH (10:12)
[2018-02-12] MEDS: MYCOPHENOLATE SODIUM 360 MG TABLET.DR PO SCH ×2 (10:12→22:55)
--- NOTE | 2018-02-12 13:02 | PN ---
Progress Note (short form) - Note Progress Note: 77 year old male history of DM, HTN, CAD ,ESRD s/p trasplant. He has been with home PT and has episode of unreponsiveness, fro which he does not seems to recover.His blood pressure was high and pulse reate was 20s and he was given atropine. open eye , but no responding to verbal stimuli , He do withdraw to His csf looks benign and unlikley to be meningitis . He is out of icu , and now feeling better. He is able to eat and his mental status improved. Neurological Examination alert and able to follow command, He is still confused and say it is february, getting severe cough while attempting to talk He knows this is hospital Pupils is still asymmetrical 3mm and left is 5 mm and very sluggishly reactive to light moving all extremity ct head is unremarkable csf show no meningitis mri of brain not done Assessment- 1. syncopal episode, 2. ams due to anoxic/hypoxia , now improving. 3.Asymmetry of pupil could be either local eye pathology vs physiological anisocoria Continue supportive treatment Thanking you so much Tanvir Garcia MD -
[2018-02-12] MEDS: SODIUM CHLORIDE 1,000 ML IV SCH (13:21)
--- NOTE | 2018-02-12 13:58 | PN ---
Progress Note (short form) - Note Progress Note: PULMONARY MORE RESPONSIVE/ANSWERS APPROPRIATELY ANICTERIC SCATTERED CRACKLES S1S2 BS+ NO EDEMA LABS/MEDS/NOTES/IMAGES/MICRO REVIEWED SYNCOPE HTN IDDM CAD s/p [place] ESRD with renal transplant 2008 (?) Seizure Continue transplant meds O2 as needed Aspiration precautions ABX per ID Follow Telemetry Genny WEBSTER MD
--- NOTE | 2018-02-12 18:34 | PN ---
Progress Note, Physician Chief Complaint: AMS - Current Medication List Current Medications: Active Medications Acetaminophen (Tylenol Oral Solution -) 650 mg PO Q4H PRN PRN Reason: FEVER Sodium Chloride (Normal Saline -) 1,000 mls @ 42 mls/hr IV ASDIR [facility] Last Admin: 02/12/18 13:21 Dose: 42 mls/hr Insulin Aspart (Novolog Vial Sliding Scale -) 1 vial SQ ACHS [facility] PRN Reason: Protocol Last Admin: 02/12/18 17:21 Dose: Not Given Insulin Detemir (Levemir Vial) 17 units SQ HS [facility] Last Admin: 02/11/18 22:12 Dose: 17 units Mycophenolate Sodium (Mycophenolic Acid) 360 mg PO BID [facility] Last Admin: 02/12/18 10:12 Dose: 360 mg Prednisone (Deltasone -) 5 mg PO DAILY [facility] Last Admin: 02/12/18 10:12 Dose: 5 mg Tacrolimus (Prograf) 1 mg PO BID [facility] Last Admin: 02/12/18 10:12 Dose: 1 mg Vancomycin HCl (Vancomycin Oral Solution) 125 mg PO Q6HPO [facility] Last Admin: 02/12/18 17:30 Dose: 125 mg - Objective Vital Signs: Vital Signs Temperature 99.4 F 02/12/18 14:00 Pulse Rate 87 02/12/18 14:00 Respiratory Rate 20 02/12/18 14:00 Blood Pressure 83/66 02/12/18 14:00 O2 Sat by Pulse Oximetry (%) 96 02/12/18 09:00 Constitutional: Yes: Well Nourished, No Distress, Calm Cardiovascular: Yes: Regular Rate and Rhythm Respiratory: Yes: Regular Labs: CBC, BMP 02/11/18 05:10 02/11/18 05:10 INR, PTT INR 0.97 (0.82-1.09) 02/08/18 13:38 Problem List - Problems (1) Acute respiratory failure Assessment/Plan: -pulmonary consult -nasal O2 -last CXR unremarkable Code(s): J96.00 - ACUTE RESPIRATORY FAILURE, UNSP W HYPOXIA OR HYPERCAPNIA (2) Diarrhea Assessment/Plan: -resolved -c-diff -ID on board -PO Vanco -maintain contact isolation Code(s): R19.7 - DIARRHEA, UNSPECIFIED (3) DM2 (diabetes mellitus, type 2) Assessment/Plan: -Uncontrolled -Endocrinology consult -BGM -insulin -Diabetic diet Code(s): E11.9 - TYPE 2 DIABETES MELLITUS WITHOUT COMPLICATIONS 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
[2018-02-12] MEDS: INSULIN DETEMIR 100 UNITS/ML MDV SQ SCH (22:55)
[2018-02-12] MEDS ORDERED: INSULIN (NOVOLOG) ASPART 100 UNITS/ML 10ML VIAL SQ ONE (23:15)
[2018-02-13] MEDS: VANCOMYCIN 250 MG/5 ML ORAL SOLUTION PO SCH ×4 (00:27→17:34)
[2018-02-13] MEDS: INSULIN SLIDING SCALE (NOVOLOG) 1 VIAL SQ SCH ×4 (06:47→22:41)
--- NOTE | 2018-02-13 10:24 | PN ---
Progress Note (short form) - Note Progress Note: 77 year old male history of DM, HTN, CAD ,ESRD s/p trasplant. He has been with home PT and has episode of unreponsiveness, fro which he does not seems to recover.His blood pressure was high and pulse reate was 20s and he was given atropine. open eye , but no responding to verbal stimuli , He do withdraw to His csf looks benign and unlikley to be meningitis . He is out of icu , and now feeling better. He is able to eat and his mental status improved. He is back to baseline. Neurological Examination alert and able to follow command, He is still confused and say it is february, getting severe cough while attempting to talk He knows this is hospital Pupils is still asymmetrical 3mm and left is 5 mm and very sluggishly reactive to light moving all extremity ct head is unremarkable csf show no meningitis Assessment- 1 ams due to anoxic/hypoxia , now improving, almost back to baseline 2.Asymmetry of pupil could be either local eye pathology vs physiological anisocoria mri of brain not needed at this time. Continue supportive treatment Thanking you so much Tanvir Garcia MD -
[2018-02-13] MEDS ORDERED: PT OWN MED DRAWER 7, Y5N ONE ×2 (10:26→22:29)
[2018-02-13] MEDS ORDERED: ONDANSETRON 4 MG/2 ML VIAL IVPB PRN (10:50)
[2018-02-13] MEDS: predniSONE 5 MG TABLET (UD) PO SCH (10:52)
[2018-02-13] MEDS: TACROLIMUS ANHYDROUS 1 MG CAPSULE PO SCH ×2 (10:53→22:41)
[2018-02-13] MEDS: MYCOPHENOLATE SODIUM 360 MG TABLET.DR PO SCH (10:53)
--- NOTE | 2018-02-13 11:01 | PN ---
Progress Note, Physician History of Present Illness: pulmonary awake,confused,-resp distress,+ cough - Current Medication List Current Medications: Active Medications Acetaminophen (Tylenol Oral Solution -) 650 mg PO Q4H PRN PRN Reason: FEVER Carvedilol (Coreg -) 25 mg PO BID [facility] Sodium Chloride (Normal Saline -) 1,000 mls @ 42 mls/hr IV ASDIR [facility] Last Admin: 02/12/18 13:21 Dose: 42 mls/hr Insulin Aspart (Novolog Vial Sliding Scale -) 1 vial SQ ACHS [facility] PRN Reason: Protocol Last Admin: 02/13/18 06:47 Dose: Not Given Insulin Detemir (Levemir Vial) 17 units SQ HS [facility] Last Admin: 02/12/18 22:55 Dose: 17 units Mycophenolate Sodium (Mycophenolic Acid) 360 mg PO BID [facility] Last Admin: 02/13/18 10:53 Dose: 360 mg Ondansetron HCl (Zofran Injection) 8 mg IVPB Q6H PRN PRN Reason: NAUSEA Prednisone (Deltasone -) 5 mg PO DAILY [facility] Last Admin: 02/13/18 10:52 Dose: 5 mg Tacrolimus (Prograf) 1 mg PO BID [facility] Last Admin: 02/13/18 10:53 Dose: 1 mg Vancomycin HCl (Vancomycin Oral Solution) 125 mg PO Q6HPO [facility] Last Admin: 02/13/18 06:47 Dose: 125 mg - Objective Vital Signs: Vital Signs Temperature 97.9 F 02/13/18 06:00 Pulse Rate 83 02/13/18 06:00 Respiratory Rate 10 L 02/13/18 06:00 Blood Pressure 183/50 02/13/18 06:00 O2 Sat by Pulse Oximetry (%) 98 02/12/18 21:00 Constitutional: Yes: Calm, Thin Eyes: Yes: WNL HENT: Yes: WNL Neck: Yes: WNL Cardiovascular: Yes: Regular Rate and Rhythm, S1, S2 Respiratory: Yes: Rhonchi (few scattered rhonchi) Gastrointestinal: Yes: Normal Bowel Sounds, Soft Extremities: Yes: WNL Edema: No Labs: Problem List - Problems (1) Change in mental status Code(s): R41.82 - ALTERED MENTAL STATUS, UNSPECIFIED (2) Collapse Code(s): R55 - SYNCOPE AND COLLAPSE (3) Renal transplant disorder Code(s): T86.10 - UNSPECIFIED COMPLICATION OF KIDNEY TRANSPLANT (4) Syncope and collapse Code(s): R55 - SYNCOPE AND COLLAPSE (5) Type 2 diabetes mellitus with diabetic peripheral angiopathy with gangrene Code(s): E11.52 - TYPE 2 DIABETES W DIABETIC PERIPHERAL ANGIOPATHY W GANGRENE (6) H/O kidney transplant Code(s): Z94.0 - KIDNEY TRANSPLANT STATUS (7) HTN (hypertension) Code(s): I10 - ESSENTIAL (PRIMARY) HYPERTENSION Qualifiers: Hypertension type: unspecified Qualified Code(s): I10 - Essential (primary ) hypertension (8) Hx of CABG Code(s): Z95.1 - PRESENCE OF AORTOCORONARY BYPASS GRAFT (9) Immunocompromised patient Code(s): D84.9 - IMMUNODEFICIENCY, UNSPECIFIED Assessment/Plan SYNCOPE HTN IDDM CAD s/p NE ESRD with s/p renal transplant 2008 (?) Seizure Continue transplant meds O2 as needed Aspiration precautions ABX per ID inhaled bronchodilators chest x-ray DR PALOMO
[2018-02-13] MEDS: CARVEDILOL 25 MG TABLET (FP) PO SCH ×2 (11:36→22:40)
--- NOTE | 2018-02-13 13:09 | PN ---
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 Clinically improved and has been enjoying reg diet/thin liquids without recurrent PNA. Now with self extubation and hoarse voice. Overtly tolerates puree and nectar thick liquid. - Dysphagia Impressions/Plan Dysphagia Impressions: Risk of Aspiration, Ongoing Evaluation *Silent aspiration: cannot be R/O at bedside Dysphagia Treatment Plan: Chin Tuck/Down, 1/2 tsp. at a time, Elevate HOB during feed Recommendations: Other (Monitor for congestion, fever,cough, MBS if indicated.) - Recommendations Diet Consistency: Dysphagia Pureed Medication Administration: Crushed with applesauce Liquids: [place] Thick Supplement: Magic Cup, Ensure Pudding Selected Entries 02/12/18 02/12/18 02/12/18 00:00 06:00 10:00 Breakfast Lunch Temperature 97.6 F 98.2 F 98.1 F 02/12/18 02/12/18 02/13/18 14:00 20:00 00:00 Breakfast Lunch Temperature 99.4 F 98.7 F 97.3 F L 02/13/18 02/13/18 02/13/18 06:00 07:25 11:27 Breakfast 75% 75% Lunch 75% Temperature 97.9 F Laboratory Tests 02/09/18 02/10/18 02/11/18 06:10 05:45 05:10 WBC 24.8 H D 19.7 H 16.4 H Pureed diet, thin liquids ordered on 02/10. Pt coughing intermittently on thin liquid. Still quite dysphonic. Pt self extubated himself last week with little improvement.. Baseline? IMP: Dysphonia/Dysphagia suspected/r/o aspiration REC: nectar thick liquid. MBS to r/o aspiration Consider ENT to visualize vocal cords.
--- NOTE | 2018-02-13 16:06 | PN ---
Progress Note, Physician History of Present Illness: Pt seen and examined at bedside. He is awake and alert. He appears comfortable. - Current Medication List Current Medications: Active Medications Acetaminophen (Tylenol Oral Solution -) 650 mg PO Q4H PRN PRN Reason: FEVER Carvedilol (Coreg -) 25 mg PO BID [facility] Last Admin: 02/13/18 11:36 Dose: 25 mg Sodium Chloride (Normal Saline -) 1,000 mls @ 42 mls/hr IV ASDIR [facility] Last Admin: 02/12/18 13:21 Dose: 42 mls/hr Insulin Aspart (Novolog Vial Sliding Scale -) 1 vial SQ ACHS [facility] PRN Reason: Protocol Last Admin: 02/13/18 12:01 Dose: Not Given Insulin Detemir (Levemir Vial) 17 units SQ HS [facility] Last Admin: 02/12/18 22:55 Dose: 17 units Mycophenolate Sodium (Mycophenolic Acid) 360 mg PO BID [facility] Last Admin: 02/13/18 10:53 Dose: 360 mg Ondansetron HCl (Zofran Injection) 8 mg IVPB Q6H PRN PRN Reason: NAUSEA Last Admin: 02/13/18 11:36 Dose: 8 mg Prednisone (Deltasone -) 5 mg PO DAILY [facility] Last Admin: 02/13/18 10:52 Dose: 5 mg Tacrolimus (Prograf) 1 mg PO BID [facility] Last Admin: 02/13/18 10:53 Dose: 1 mg Vancomycin HCl (Vancomycin Oral Solution) 125 mg PO Q6HPO [facility] Last Admin: 02/13/18 12:46 Dose: 125 mg - Objective Vital Signs: Vital Signs Temperature 97.6 F 02/13/18 14:00 Pulse Rate 74 02/13/18 14:00 Respiratory Rate 20 02/13/18 14:00 Blood Pressure 114/71 02/13/18 14:00 O2 Sat by Pulse Oximetry (%) 98 02/13/18 09:00 Constitutional: Yes: Calm Eyes: Yes: Conjunctiva Clear HENT: Yes: Atraumatic Cardiovascular: Yes: S1, S2 Respiratory: Yes: CTA Bilaterally Gastrointestinal: Yes: Soft Genitourinary: Yes: Other (graft soft and non tender) Musculoskeletal: Yes: WNL Edema: No Neurological: Yes: Oriented Psychiatric: Yes: Oriented Labs: CBC, BMP 02/11/18 05:10 02/11/18 05:10 INR, PTT INR 0.97 (0.82-1.09) 02/08/18 13:38 Problem List - Problems (1) Acute respiratory failure Code(s): J96.00 - ACUTE RESPIRATORY FAILURE, UNSP W HYPOXIA OR HYPERCAPNIA (2) Bradycardia Code(s): R00.1 - BRADYCARDIA, UNSPECIFIED (3) Hypotension Code(s): I95.9 - HYPOTENSION, UNSPECIFIED (4) Renal transplant disorder Code(s): T86.10 - UNSPECIFIED COMPLICATION OF KIDNEY TRANSPLANT (5) Shock Code(s): R57.9 - SHOCK, UNSPECIFIED Assessment/Plan Current Medications Generic Name Dose Route Start Last Admin Trade Name Freq PRN Reason Stop Dose Admin Acetaminophen 650 mg 02/10/18 12:38 Tylenol Oral Solution - PO Q4H PRN FEVER Carvedilol 25 mg 02/13/18 11:00 02/13/18 11:36 Coreg - PO 25 mg BID [facility] Administration Sodium Chloride 1,000 mls @ 42 mls/hr 02/10/18 12:38 02/12/18 13:21 Normal Saline - IV 42 mls/hr ASDIR [facility] Administration Insulin Aspart 1 vial 02/10/18 16:30 02/13/18 12:01 Novolog Vial Sliding Scale - SQ Not Given ACHS [facility] Protocol Insulin Detemir 17 units 02/10/18 22:00 02/12/18 22:55 Levemir Vial SQ 17 units HS [facility] Administration Mycophenolate Sodium 360 mg 02/10/18 22:00 02/13/18 10:53 Mycophenolic Acid PO 360 mg BID [facility] Administration Ondansetron HCl 8 mg 02/13/18 10:50 02/13/18 11:36 Zofran Injection IVPB 8 mg Q6H PRN Administration NAUSEA Prednisone 5 mg 02/11/18 10:00 02/13/18 10:52 Deltasone - PO 5 mg DAILY [facility] Administration Tacrolimus 1 mg 02/10/18 22:00 02/13/18 10:53 Prograf PO 1 mg BID [facility] Administration Vancomycin HCl 125 mg 02/10/18 18:00 02/13/18 12:46 Vancomycin Oral Solution PO 125 mg Q6HPO [facility] Administration Laboratory Tests 02/09/18 06:10 Tacrolimus 3.6 Impression 1. CKD 2. kidney transplant 3. DM 4. hx of syncope 5. HTN 6. hyperlipidemia 7. acute respiratory failure requiring intubation 8. change in mental status 9. bradycardia 10. r/o sepsis 11. r/o meningitis Plan - check bmp - cont current meds - will keep on gentle hydration until I review his labs - cont to follow cultures - prograf 1 mg q 12 hrs, mycophenolate 360 bid, prednisone 5 mg daily are his transplant meds Dr Perez
[2018-02-13] MEDS ORDERED: INSULIN (NOVOLOG) ASPART 100 UNITS/ML 10ML VIAL ONE ×2 (17:38→22:36)
--- NOTE | 2018-02-13 17:40 | PN ---
Progress Note, Physician Chief Complaint: AWAKE ALERT CHART AND EVENTS REVIEWED THIS IS MY FIRST ENCOUNTER WITH THIS PATIENT NO COMPLAINTS AT THIS TIME - Current Medication List Current Medications: Active Medications Acetaminophen (Tylenol Oral Solution -) 650 mg PO Q4H PRN PRN Reason: FEVER Carvedilol (Coreg -) 25 mg PO BID [facility] Last Admin: 02/13/18 11:36 Dose: 25 mg Sodium Chloride (Normal Saline -) 1,000 mls @ 42 mls/hr IV ASDIR [facility] Last Admin: 02/12/18 13:21 Dose: 42 mls/hr Insulin Aspart (Novolog Vial Sliding Scale -) 1 vial SQ ACHS [facility] PRN Reason: Protocol Last Admin: 02/13/18 12:01 Dose: Not Given Insulin Detemir (Levemir Vial) 17 units SQ HS [facility] Last Admin: 02/12/18 22:55 Dose: 17 units Mycophenolate Sodium (Mycophenolic Acid) 360 mg PO BID [facility] Last Admin: 02/13/18 10:53 Dose: 360 mg Ondansetron HCl (Zofran Injection) 8 mg IVPB Q6H PRN PRN Reason: NAUSEA Last Admin: 02/13/18 11:36 Dose: 8 mg Prednisone (Deltasone -) 5 mg PO DAILY [facility] Last Admin: 02/13/18 10:52 Dose: 5 mg Tacrolimus (Prograf) 1 mg PO BID [facility] Last Admin: 02/13/18 10:53 Dose: 1 mg Vancomycin HCl (Vancomycin Oral Solution) 125 mg PO Q6HPO [facility] Last Admin: 02/13/18 12:46 Dose: 125 mg - Objective Vital Signs: Vital Signs Temperature 97.6 F 02/13/18 14:00 Pulse Rate 74 02/13/18 14:00 Respiratory Rate 20 02/13/18 14:00 Blood Pressure 114/71 02/13/18 14:00 O2 Sat by Pulse Oximetry (%) 98 02/13/18 09:00 Constitutional: Yes: No Distress Eyes: Yes: WNL HENT: Yes: WNL Neck: Yes: WNL Cardiovascular: Yes: WNL Respiratory: Yes: WNL Gastrointestinal: Yes: WNL Genitourinary: Yes: Other Musculoskeletal: Yes: WNL Extremities: Yes: WNL Edema: No Peripheral Pulses WNL: Yes Integumentary: Yes: WNL Wound/Incision: Yes: Clean/Dry Neurological: Yes: WNL ...Motor Strength: WNL Psychiatric: Yes: WNL Labs: CBC, BMP 02/11/18 05:10 02/11/18 05:10 INR, PTT INR 0.97 (0.82-1.09) 02/08/18 13:38 Problem List - Problems (1) Acute respiratory failure Code(s): J96.00 - ACUTE RESPIRATORY FAILURE, UNSP W HYPOXIA OR HYPERCAPNIA (2) Bradycardia Code(s): R00.1 - BRADYCARDIA, UNSPECIFIED (3) Change in mental status Code(s): R41.82 - ALTERED MENTAL STATUS, UNSPECIFIED (4) Collapse Code(s): R55 - SYNCOPE AND COLLAPSE (5) Hypotension Code(s): I95.9 - HYPOTENSION, UNSPECIFIED (6) Renal transplant disorder Code(s): T86.10 - UNSPECIFIED COMPLICATION OF KIDNEY TRANSPLANT (7) Sepsis Code(s): A41.9 - SEPSIS, UNSPECIFIED ORGANISM (8) C. difficile colitis Code(s): A04.72 - ENTEROCOLITIS D/T CLOSTRIDIUM DIFFICILE, NOT SPCF RECUR (9) Diarrhea Code(s): R19.7 - DIARRHEA, UNSPECIFIED Assessment/Plan SEPSIS IMPROVING ON PO VANCO ABX FOR C. DIFF MONITOR ON TELE FOR SYNCOPE/COLLAPSE NEPHROLOGY EVAL APPRECIATED HD PER RENAL OOB TO CHAIR WILL NEED SNF
[2018-02-13] MEDS: SODIUM CHLORIDE 1,000 ML IV SCH (22:40)
[2018-02-13] MEDS: INSULIN DETEMIR 100 UNITS/ML MDV SQ SCH (22:41)
--- NOTE | 2018-02-13 23:58 | PN ---
Progress Note, Physician Chief Complaint: comfortable no complaint History of Present Illness: diabetes mellitus niddm,kidney transplant,diet noncompliant,sp syncopal episode - Current Medication List Current Medications: Active Medications Acetaminophen (Tylenol Oral Solution -) 650 mg PO Q4H PRN PRN Reason: FEVER Carvedilol (Coreg -) 25 mg PO BID [facility] Last Admin: 02/13/18 22:40 Dose: 25 mg Sodium Chloride (Normal Saline -) 1,000 mls @ 42 mls/hr IV ASDIR [facility] Last Admin: 02/13/18 22:40 Dose: 42 mls/hr Insulin Aspart (Novolog Vial Sliding Scale -) 1 vial SQ ACHS [facility] PRN Reason: Protocol Last Admin: 02/13/18 22:41 Dose: 4 units Insulin Detemir (Levemir Vial) 17 units SQ HS [facility] Last Admin: 02/13/18 22:41 Dose: 17 units Mycophenolate Sodium (Mycophenolic Acid) 360 mg PO BID [facility] Last Admin: 02/13/18 10:53 Dose: 360 mg Ondansetron HCl (Zofran Injection) 8 mg IVPB Q6H PRN PRN Reason: NAUSEA Last Admin: 02/13/18 11:36 Dose: 8 mg Prednisone (Deltasone -) 5 mg PO DAILY [facility] Last Admin: 02/13/18 10:52 Dose: 5 mg Tacrolimus (Prograf) 1 mg PO BID [facility] Last Admin: 02/13/18 22:41 Dose: 1 mg Vancomycin HCl (Vancomycin Oral Solution) 125 mg PO Q6HPO [facility] Last Admin: 02/13/18 17:34 Dose: 125 mg - Objective Vital Signs: Vital Signs Temperature 98.8 F 02/13/18 17:20 Pulse Rate 75 02/13/18 17:20 Respiratory Rate 18 02/13/18 17:20 Blood Pressure 124/68 02/13/18 17:20 O2 Sat by Pulse Oximetry (%) 98 02/13/18 09:00 Constitutional: Yes: Calm Eyes: Yes: EOM Intact HENT: Yes: Normocephalic Neck: Yes: Trachea Midline Cardiovascular: Yes: Regular Rate and Rhythm Respiratory: Yes: CTA Bilaterally Gastrointestinal: Yes: Normal Bowel Sounds ...Rectal Exam: Yes: Deferred Genitourinary: Yes: WNL Breast(s): Yes: WNL Musculoskeletal: Yes: WNL Extremities: Yes: WNL Neurological: Yes: Alert, Oriented Labs: CBC, BMP 02/11/18 05:10 02/11/18 05:10 INR, PTT INR 0.97 (0.82-1.09) 02/08/18 13:38 Problem List - Problems (1) Type 2 diabetes mellitus with diabetic peripheral angiopathy with gangrene Code(s): E11.52 - TYPE 2 DIABETES W DIABETIC PERIPHERAL ANGIOPATHY W GANGRENE (2) Bradycardia Code(s): R00.1 - BRADYCARDIA, UNSPECIFIED (3) Change in mental status Code(s): R41.82 - ALTERED MENTAL STATUS, UNSPECIFIED (4) Hypotension Code(s): I95.9 - HYPOTENSION, UNSPECIFIED (5) Renal transplant disorder Code(s): T86.10 - UNSPECIFIED COMPLICATION OF KIDNEY TRANSPLANT Assessment/Plan Current Active Problems Acute respiratory failure (Acute) Bradycardia (Acute) Change in mental status (Acute) Collapse (Acute) Diarrhea (Acute) Hypotension (Acute) Renal transplant disorder (Acute) Sepsis (Acute) Shock (Acute) Syncope (Acute) Syncope and collapse (Acute) Type 2 diabetes mellitus with diabetic peripheral angiopathy with gangrene ( Acute) Laboratory Results - last 24 hr 02/08/18 02/13/18 02/13/18 18:30 06:43 11:58 POC Glucometer 94 157 CSF [place] IgG Ab Negative CSF [place] IgM Ab Negative 02/13/18 02/13/18 17:35 22:38 POC Glucometer 246 249 CSF [place] IgG Ab CSF [place] IgM Ab plan: levemir 20 units am levemir 15 units hs novolog ac hs coverage nutrtion consult
[2018-02-14] MEDS: MYCOPHENOLATE SODIUM 360 MG TABLET.DR PO SCH ×3 (00:28→22:48)
[2018-02-14] MEDS: VANCOMYCIN 250 MG/5 ML ORAL SOLUTION PO SCH ×4 (00:28→17:48)
[2018-02-14] MEDS: INSULIN SLIDING SCALE (NOVOLOG) 1 VIAL SQ SCH ×4 (06:35→22:48)
[2018-02-14] MEDS: INSULIN DETEMIR 100 UNITS/ML MDV SQ SCH (06:38)
[2018-02-14 07:13] LABS: BASO % 0.4 % (0-2.0); EOS % 3.6 % (0-4.5); HEMATOCRIT 32.6 % (35.4-49); HEMOGLOBIN 10.7 GM/dL (11.7-16.9); MCH 29.2 pg (25.7-33.7); MCHC 32.8 g/dl (32.0-35.9); MEAN CELL VOLUME 89.2 fl (80-96); MEAN PLT VOLUME 8.4 fl (7.5-11.1); MONO % 7.6 % (3.8-10.2); NEUT % 63.4 % (42.8-82.8); PLATELET COUNT 220 K/MM3 (134-434); RBC 3.65 M/mm3 (4.00-5.60); RDW 15.9 % (11.9-15.9); WHITE BLOOD COUNT 12.2 K/mm3 (4.0-10.0)
[2018-02-14 07:53] LABS: ALBUMIN 2.5 g/dl (3.4-5.0); BLOOD UREA NITROGEN 20 mg/dL (7-18); CHLORIDE 106 mmol/L (98-107); GLUCOSE,RANDOM 124 mg/dL (74-106); SODIUM 141 mmol/L (136-145)
[2018-02-14 08:01] LABS: ALK PHOS 86 U/L (45-117); ANION GAP 10 (8-16); BILIRUBIN,TOTAL 0.3 mg/dL (0.2-1.0); CO2 25 mmol/L (21-32); CREATININE 1.3 mg/dL (0.7-1.3); SGOT/AST 13 U/L (15-37); SGPT/ALT 17 U/L (12-78); TOT PROT 5.3 g/dl (6.4-8.2)
--- NOTE | 2018-02-14 10:37 | PN ---
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 Clinically improved and has been enjoying reg diet/thin liquids without recurrent PNA. Now with self extubation and hoarse voice. Overtly tolerates puree and nectar thick liquid. - Dysphagia Impressions/Plan Dysphagia Impressions: Risk of Aspiration, Ongoing Evaluation *Silent aspiration: cannot be R/O at bedside Dysphagia Treatment Plan: Chin Tuck/Down, 1/2 tsp. at a time, Elevate HOB during feed Recommendations: Other (Monitor for congestion, fever,cough, MBS if indicated.) - Recommendations Diet Consistency: Dysphagia Pureed Medication Administration: Crushed with applesauce Liquids: [place] Thick Supplement: Magic Cup, Ensure Pudding Selected Entries 02/12/18 02/12/18 02/12/18 00:00 06:00 10:00 Breakfast Lunch Temperature 97.6 F 98.2 F 98.1 F 02/12/18 02/12/18 02/13/18 14:00 20:00 00:00 Breakfast Lunch Temperature 99.4 F 98.7 F 97.3 F L 02/13/18 02/13/18 02/13/18 06:00 07:25 11:27 Breakfast 75% 75% Lunch 75% Temperature 97.9 F Laboratory Tests 02/09/18 02/10/18 02/11/18 06:10 05:45 05:10 WBC 24.8 H D 19.7 H 16.4 H Selected Entries 02/13/18 02/13/18 02/13/18 00:00 06:00 07:25 Breakfast 75% Lunch 75% Supper Temperature 97.3 F L 97.9 F 02/13/18 02/13/18 02/13/18 10:00 11:27 14:00 Breakfast 75% Lunch Supper Temperature 97.7 F 97.6 F 02/13/18 02/13/18 02/13/18 15:35 17:20 19:49 Breakfast Lunch 75% Supper 100% Temperature 98.8 F 02/14/18 02/14/18 01:00 06:00 Breakfast Lunch Supper Temperature 97.3 F L 97.7 F Laboratory Tests 02/14/18 06:57 WBC 12.2 H Pureed diet, thin liquids ordered on 02/10. Swallowing reassessed without cough noted with 2 large sips of water. However, nursing reported responsive cough last night with pills taken with water. RN then cxrrushed pills and gave in applesauce. Still quite dysphonic. Pt self extubated himself last week with little improvement.. Baseline? Last mbs 11/2017 aspiration on thin and nectar liquid IMP: Dysphonia/Dysphagia suspected/r/o aspiration REC: MBS to r/o aspiration, nectar thick liquid? Consider ENT to visualize vocal cords? What is pt's baseline vocal quality?
[2018-02-14] MEDS ORDERED: PT OWN MED DRAWER 7, Y5N ONE ×3 (11:15→22:40)
[2018-02-14] MEDS: predniSONE 5 MG TABLET (UD) PO SCH (11:20)
[2018-02-14] MEDS: CARVEDILOL 25 MG TABLET (FP) PO SCH ×2 (11:20→22:47)
[2018-02-14] MEDS: TACROLIMUS ANHYDROUS 1 MG CAPSULE PO SCH ×2 (11:21→22:49)
--- NOTE | 2018-02-14 13:14 | PN ---
Progress Note (short form) - Note Progress Note: Resting in NAD. No CP or SOB. No acute events overnight. Intake & Output 02/11/18 02/12/18 02/13/18 02/14/18 23:59 23:59 23:59 23:59 Intake Total 420 882 796 150 Balance 420 882 796 150 Weight 160 lb 8 oz 161 lb 155 lb 9.6 oz Last Vital Signs Temp Pulse Resp BP Pulse Ox 98.0 F 67 18 132/84 97 02/14/18 10:00 02/14/18 10:00 02/14/18 10:00 02/14/18 10:00 02/13/18 21:00 Active Medications Acetaminophen (Tylenol Oral Solution -) 650 mg PO Q4H PRN PRN Reason: FEVER Carvedilol (Coreg -) 25 mg PO BID [facility] Last Admin: 02/14/18 11:20 Dose: 25 mg Sodium Chloride (Normal Saline -) 1,000 mls @ 42 mls/hr IV ASDIR [facility] Last Admin: 02/13/18 22:40 Dose: 42 mls/hr Insulin Aspart (Novolog Vial Sliding Scale -) 1 vial SQ ACHS [facility] PRN Reason: Protocol Last Admin: 02/14/18 11:37 Dose: Not Given Insulin Detemir (Levemir Vial) 20 units SQ AM [facility] Last Admin: 02/14/18 06:38 Dose: 20 units Insulin Detemir (Levemir Vial) 15 units SQ HS [facility] Mycophenolate Sodium (Mycophenolic Acid) 360 mg PO BID [facility] Last Admin: 02/14/18 11:20 Dose: 360 mg Ondansetron HCl (Zofran Injection) 8 mg IVPB Q6H PRN PRN Reason: NAUSEA Last Admin: 02/13/18 11:36 Dose: 8 mg Prednisone (Deltasone -) 5 mg PO DAILY [facility] Last Admin: 02/14/18 11:20 Dose: 5 mg Tacrolimus (Prograf) 1 mg PO BID [facility] Last Admin: 02/14/18 11:21 Dose: 1 mg Vancomycin HCl (Vancomycin Oral Solution) 125 mg PO Q6HPO [facility] Last Admin: 02/14/18 12:26 Dose: 125 mg Constitutional: Yes: NAD Eyes: Yes: Cataracts (R). No: PERRL HENT: Yes: Atraumatic, Normocephalic Neck: No: Lymphadenopathy Cardiovascular: Yes: Regular Rate and Rhythm, S1 Respiratory: Yes: Clear. No: Accessory Muscle Use Gastrointestinal: Yes: Normal Bowel Sounds, Soft Renal/: Yes: WNL, [place] Present Extremities: Yes: Cool Edema: Yes Edema: LUE: Trace, RUE: Trace, LLE: Trace, RLE: Trace Peripheral Pulses WNL: Yes Neurological: Yes: Non-focal, confused Labs: Laboratory Results - last 24 hr 02/08/18 02/08/18 02/13/18 18:30 18:30 17:35 WBC RBC Hgb Hct MCV MCH MCHC RDW Plt Count MPV Neutrophils % Lymphocytes % Monocytes % Eosinophils % Basophils % Sodium Potassium Chloride Carbon Dioxide Anion Gap BUN Creatinine Creat Clearance w eGFR POC Glucometer 246 Random Glucose Calcium Total Bilirubin AST ALT Alkaline Phosphatase Total Protein Albumin CSF CMV IgG Ab < 0.20 CSF [place] IgG Ab Negative CSF [place] IgM Ab Negative 02/13/18 02/14/18 02/14/18 22:38 05:44 06:57 WBC 12.2 H RBC 3.65 L Hgb 10.7 L Hct 32.6 L MCV 89.2 MCH 29.2 MCHC 32.8 RDW 15.9 Plt Count 220 MPV 8.4 Neutrophils % 63.4 Lymphocytes % 25.0 D Monocytes % 7.6 Eosinophils % 3.6 D Basophils % 0.4 Sodium Potassium Chloride Carbon Dioxide Anion Gap BUN Creatinine Creat Clearance w eGFR POC Glucometer 249 120 Random Glucose Calcium Total Bilirubin AST ALT Alkaline Phosphatase Total Protein Albumin CSF CMV IgG Ab CSF [place] IgG Ab CSF [place] IgM Ab 02/14/18 02/14/18 06:57 11:27 WBC RBC Hgb Hct MCV MCH MCHC RDW Plt Count MPV Neutrophils % Lymphocytes % Monocytes % Eosinophils % Basophils % Sodium 141 Potassium 4.0 Chloride 106 Carbon Dioxide 25 Anion Gap 10 BUN 20 H D Creatinine 1.3 D Creat Clearance w eGFR 53.67 POC Glucometer 136 Random Glucose 124 H D Calcium 8.0 L Total Bilirubin 0.3 D AST 13 L ALT 17 Alkaline Phosphatase 86 Total Protein 5.3 L Albumin 2.5 L CSF CMV IgG Ab CSF [place] IgG Ab CSF [place] IgM Ab Assessment/Plan: 77 M, syncope while working w/ PT, bradycardia, hypotension and AMS which did not fully resolve. HTN IDDM CAD s/p CT ESRD with renal transplant 2008 O2 as needed Aspiration precautions Transplant meds as ordered D/C planning Dr Melgar
[2018-02-14] MEDS: SODIUM CHLORIDE 1,000 ML IV SCH (14:11)
--- NOTE | 2018-02-14 14:39 | PN ---
Progress Note, Physician History of Present Illness: Pt seen and examined at bedside. He is awake and appears comfortable. He just came back from the [facility]. - Current Medication List Current Medications: Active Medications Acetaminophen (Tylenol Oral Solution -) 650 mg PO Q4H PRN PRN Reason: FEVER Carvedilol (Coreg -) 25 mg PO BID [facility] Last Admin: 02/14/18 11:20 Dose: 25 mg Sodium Chloride (Normal Saline -) 1,000 mls @ 42 mls/hr IV ASDIR [facility] Last Admin: 02/13/18 22:40 Dose: 42 mls/hr Insulin Aspart (Novolog Vial Sliding Scale -) 1 vial SQ ACHS [facility] PRN Reason: Protocol Last Admin: 02/14/18 11:37 Dose: Not Given Insulin Detemir (Levemir Vial) 20 units SQ AM [facility] Last Admin: 02/14/18 06:38 Dose: 20 units Insulin Detemir (Levemir Vial) 15 units SQ HS [facility] Mycophenolate Sodium (Mycophenolic Acid) 360 mg PO BID [facility] Last Admin: 02/14/18 11:20 Dose: 360 mg Ondansetron HCl (Zofran Injection) 8 mg IVPB Q6H PRN PRN Reason: NAUSEA Last Admin: 02/13/18 11:36 Dose: 8 mg Prednisone (Deltasone -) 5 mg PO DAILY [facility] Last Admin: 02/14/18 11:20 Dose: 5 mg Tacrolimus (Prograf) 1 mg PO BID [facility] Last Admin: 02/14/18 11:21 Dose: 1 mg Vancomycin HCl (Vancomycin Oral Solution) 125 mg PO Q6HPO [facility] Last Admin: 02/14/18 12:26 Dose: 125 mg - Objective Vital Signs: Vital Signs Temperature 98.2 F 02/14/18 13:46 Pulse Rate 85 02/14/18 13:46 Respiratory Rate 18 02/14/18 13:46 Blood Pressure 142/61 02/14/18 13:46 O2 Sat by Pulse Oximetry (%) 99 02/14/18 09:00 Constitutional: Yes: Calm Eyes: Yes: Conjunctiva Clear HENT: Yes: Atraumatic Neck: Yes: Supple Cardiovascular: Yes: S1, S2 Respiratory: Yes: CTA Bilaterally Gastrointestinal: Yes: Normal Bowel Sounds, Soft Genitourinary: Yes: WNL Musculoskeletal: Yes: WNL Edema: No Neurological: Yes: Oriented Psychiatric: Yes: Oriented Labs: CBC, BMP 02/14/18 06:57 02/14/18 06:57 INR, PTT INR 0.97 (0.82-1.09) 02/08/18 13:38 Problem List - Problems (1) Acute respiratory failure Code(s): J96.00 - ACUTE RESPIRATORY FAILURE, UNSP W HYPOXIA OR HYPERCAPNIA (2) Bradycardia Code(s): R00.1 - BRADYCARDIA, UNSPECIFIED (3) Hypotension Code(s): I95.9 - HYPOTENSION, UNSPECIFIED (4) Renal transplant disorder Code(s): T86.10 - UNSPECIFIED COMPLICATION OF KIDNEY TRANSPLANT (5) Shock Code(s): R57.9 - SHOCK, UNSPECIFIED Assessment/Plan Current Medications Generic Name Dose Route Start Last Admin Trade Name Freq PRN Reason Stop Dose Admin Acetaminophen 650 mg 02/10/18 12:38 Tylenol Oral Solution - PO Q4H PRN FEVER Carvedilol 25 mg 02/13/18 11:00 02/14/18 11:20 Coreg - PO 25 mg BID [facility] Administration Sodium Chloride 1,000 mls @ 42 mls/hr 02/10/18 12:38 02/13/18 22:40 Normal Saline - IV 42 mls/hr ASDIR [facility] Administration Insulin Aspart 1 vial 02/10/18 16:30 02/14/18 11:37 Novolog Vial Sliding Scale - SQ Not Given ACHS [facility] Protocol Insulin Detemir 20 units 02/14/18 07:00 02/14/18 06:38 Levemir Vial SQ 20 units AM [facility] Administration Insulin Detemir 15 units 02/14/18 22:00 Levemir Vial SQ HS [facility] Mycophenolate Sodium 360 mg 02/10/18 22:00 02/14/18 11:20 Mycophenolic Acid PO 360 mg BID [facility] Administration Ondansetron HCl 8 mg 02/13/18 10:50 02/13/18 11:36 Zofran Injection IVPB 8 mg Q6H PRN Administration NAUSEA Prednisone 5 mg 02/11/18 10:00 02/14/18 11:20 Deltasone - PO 5 mg DAILY [facility] Administration Tacrolimus 1 mg 02/10/18 22:00 02/14/18 11:21 Prograf PO 1 mg BID [facility] Administration Vancomycin HCl 125 mg 02/10/18 18:00 02/14/18 12:26 Vancomycin Oral Solution PO 125 mg Q6HPO [facility] Administration Impression 1. CKD 2. kidney transplant 3. DM 4. hx of syncope 5. HTN 6. hyperlipidemia 7. acute respiratory failure requiring intubation 8. change in mental status 9. bradycardia 10. r/o sepsis 11. r/o meningitis Plan - labs reviewed - cont current meds - follow swallow eval - stop fluids once on regular diet - prograf 1 mg q 12 hrs, mycophenolate 360 bid, prednisone 5 mg daily are his transplant meds Dr Perez
--- NOTE | 2018-02-14 17:32 | PN ---
Progress Note, Physician Chief Complaint: ASLEEP MODIFIED BARIUM STUDY REVIEWED - Current Medication List Current Medications: Active Medications Acetaminophen (Tylenol Oral Solution -) 650 mg PO Q4H PRN PRN Reason: FEVER Carvedilol (Coreg -) 25 mg PO BID [facility] Last Admin: 02/14/18 11:20 Dose: 25 mg Sodium Chloride (Normal Saline -) 1,000 mls @ 42 mls/hr IV ASDIR [facility] Last Admin: 02/14/18 14:11 Dose: 42 mls/hr Insulin Aspart (Novolog Vial Sliding Scale -) 1 vial SQ ACHS [facility] PRN Reason: Protocol Last Admin: 02/14/18 16:49 Dose: 4 units Insulin Detemir (Levemir Vial) 20 units SQ AM [facility] Last Admin: 02/14/18 06:38 Dose: 20 units Insulin Detemir (Levemir Vial) 15 units SQ HS [facility] Mycophenolate Sodium (Mycophenolic Acid) 360 mg PO BID [facility] Last Admin: 02/14/18 11:20 Dose: 360 mg Ondansetron HCl (Zofran Injection) 8 mg IVPB Q6H PRN PRN Reason: NAUSEA Last Admin: 02/13/18 11:36 Dose: 8 mg Prednisone (Deltasone -) 5 mg PO DAILY [facility] Last Admin: 02/14/18 11:20 Dose: 5 mg Tacrolimus (Prograf) 1 mg PO BID [facility] Last Admin: 02/14/18 11:21 Dose: 1 mg Vancomycin HCl (Vancomycin Oral Solution) 125 mg PO Q6HPO [facility] Last Admin: 02/14/18 12:26 Dose: 125 mg - Objective Vital Signs: Vital Signs Temperature 98.2 F 02/14/18 13:46 Pulse Rate 85 02/14/18 13:46 Respiratory Rate 18 02/14/18 13:46 Blood Pressure 142/61 02/14/18 13:46 O2 Sat by Pulse Oximetry (%) 99 02/14/18 09:00 Constitutional: Yes: No Distress Eyes: Yes: WNL HENT: Yes: WNL Neck: Yes: WNL Cardiovascular: Yes: WNL Respiratory: Yes: WNL Gastrointestinal: Yes: WNL Genitourinary: Yes: Other Musculoskeletal: Yes: Muscle Weakness Extremities: Yes: WNL Edema: Yes Edema: LLE: Trace, RLE: Trace Peripheral Pulses WNL: Yes Integumentary: Yes: WNL Wound/Incision: Yes: Open to air Neurological: Yes: Pre-Existing Deficit ...Motor Strength: LLE, RLE Psychiatric: Yes: Other Labs: CBC, BMP 02/14/18 06:57 02/14/18 06:57 INR, PTT INR 0.97 (0.82-1.09) 02/08/18 13:38 Problem List - Problems (1) Acute respiratory failure Code(s): J96.00 - ACUTE RESPIRATORY FAILURE, UNSP W HYPOXIA OR HYPERCAPNIA (2) Bradycardia Code(s): R00.1 - BRADYCARDIA, UNSPECIFIED (3) Change in mental status Code(s): R41.82 - ALTERED MENTAL STATUS, UNSPECIFIED (4) Collapse Code(s): R55 - SYNCOPE AND COLLAPSE (5) Hypotension Code(s): I95.9 - HYPOTENSION, UNSPECIFIED (6) Renal transplant disorder Code(s): T86.10 - UNSPECIFIED COMPLICATION OF KIDNEY TRANSPLANT (7) Sepsis Code(s): A41.9 - SEPSIS, UNSPECIFIED ORGANISM (8) C. difficile colitis Code(s): A04.72 - ENTEROCOLITIS D/T CLOSTRIDIUM DIFFICILE, NOT SPCF RECUR (9) Diarrhea Code(s): R19.7 - DIARRHEA, UNSPECIFIED (10) Dysphagia Code(s): R13.10 - DYSPHAGIA, UNSPECIFIED Assessment/Plan DYSPHAGIA HONEY CONSISTENCY DIET RECOMMENDED IV ABX PER ID PT EVAL ESRD ON HD TELE ISOLATION CONTINUED
[2018-02-14] MEDS ORDERED: INSULIN DETEMIR 100 UNITS/ML MDV SQ SCH (22:00)
[2018-02-15] MEDS: VANCOMYCIN 250 MG/5 ML ORAL SOLUTION PO SCH ×3 (00:10→12:41)
[2018-02-15] MEDS: INSULIN SLIDING SCALE (NOVOLOG) 1 VIAL SQ SCH ×2 (06:48→12:42)
[2018-02-15] MEDS: INSULIN DETEMIR 100 UNITS/ML MDV SQ SCH (06:48)
[2018-02-15] MEDS: CARVEDILOL 25 MG TABLET (FP) PO SCH (10:17)
[2018-02-15] MEDS: predniSONE 5 MG TABLET (UD) PO SCH (10:17)
[2018-02-15] MEDS: TACROLIMUS ANHYDROUS 1 MG CAPSULE PO SCH (10:20)
[2018-02-15] MEDS: MYCOPHENOLATE SODIUM 360 MG TABLET.DR PO SCH (10:20)
--- NOTE | 2018-02-15 11:14 | PN ---
Progress Note, [employer] - Note Progress Note: Selected Entries 02/14/18 02/14/18 02/14/18 01:00 06:00 10:00 Supper Temperature 97.3 F L 97.7 F 98.0 F 02/14/18 02/14/18 02/14/18 13:46 17:15 19:00 Supper 100% Temperature 98.2 F 98.2 F 02/14/18 02/15/18 02/15/18 22:00 02:00 06:00 Supper Temperature 97.8 F 98.2 F 98.2 F Reviewed MBS with staff/PMD. Suggest Puree/nectar thick liquid with supervision. Single sips of nectar with head in neutral.Pt heabitually extends head and drinks rapidly with intermittent aspiration Dysphonia persists. ENT ordered. Pt pending d/c today. Suggest ENT at [place] and swallowing therapy.
--- NOTE | 2018-02-15 11:31 | DS ---
Physical Examination Vital Signs: Vital Signs Temperature 98.2 F 02/15/18 06:00 Pulse Rate 64 02/15/18 06:00 Respiratory Rate 20 02/15/18 06:00 Blood Pressure 147/52 02/15/18 06:00 O2 Sat by Pulse Oximetry (%) 96 02/14/18 21:00 Findings/Remarks: PATIENT AWAKE ALERT NAD FEELS GOOD DENIES DYSPNEA/NO CHEST PAIN Constitutional: Yes: No Distress Eyes: Yes: WNL HENT: Yes: WNL Neck: Yes: WNL Cardiovascular: Yes: WNL Respiratory: Yes: WNL Gastrointestinal: Yes: WNL Renal/: Yes: WNL Musculoskeletal: Yes: Muscle Weakness Extremities: Yes: WNL Edema: No Peripheral Pulses WNL: Yes Integumentary: Yes: Venous Stasis Changes, Other Wound/Incision: Yes: Dressing Dry and Intact Neurological: Yes: Pre-Existing Deficit, Unsteady Gait ...Motor Strength: LLE, RLE Psychiatric: Yes: Other Labs: CBC, BMP 02/14/18 06:57 02/14/18 06:57 Discharge Summary Reason For Visit: ALTERED MENTAL STATUS Current Active Problems Acute respiratory failure (Acute) Bradycardia (Acute) C. difficile colitis (Acute) Change in mental status (Acute) Collapse (Acute) Diarrhea (Acute) Dysphagia (Acute) Hypotension (Acute) Renal transplant disorder (Acute) Sepsis (Acute) Shock (Acute) Syncope (Acute) Syncope and collapse (Acute) Type 2 diabetes mellitus with diabetic peripheral angiopathy with gangrene ( Acute) Procedures: Principal: CXR/CULTURES/CT Hospital Course: ADMITTED FOR HYPOTENSION/SEPSIS TREATED IV ABX, ESRD ON HD PATIENT TOLERATED THE IV ABX AND IMPROVED SEPSIS RESOLVING OOB TO CHAIR PT EVAL TO SNF IV ABX DURING HD Condition: Improved - Instructions Diet, Activity, Other Instructions: ADA RENAL DIET WILL NEED IV ABX DURING HD DISCUSSED WITH DR MARGARET LIM Referrals: Gt Villela MD [Primary Care Provider] - Disposition: [facility] - Home Medications Comprehensive Discharge Medication List: Ambulatory Orders Amlodipine Besylate [Norvasc -] 10 mg PO DAILY 05/17/17 Aspirin [Jena Chewable Aspirin] 81 mg PO HS 05/17/17 Atorvastatin Ca [Lipitor] 10 mg PO HS 05/17/17 Carvedilol [Coreg -] 25 mg PO BID 05/17/17 Duloxetine HCl [Cymbalta] 20 mg PO BID 05/17/17 Tamsulosin HCl [Flomax] 0.4 mg PO HS 05/17/17 predniSONE [Deltasone -] 5 mg PO DAILY 05/17/17 Acetaminophen [Tylenol .Regular Strength -] 650 mg PO Q4H PRN tablet 11/29/17 Tacrolimus 1 mg PO BID 11/29/17 Insulin (Levemir) [Levemir Vial] 8 units SQ HS ml 12/05/17 Insulin (Levemir) [Levemir Vial] 25 units SQ AM #0 ml 12/05/17 Docusate Sodium [Colace -] 100 mg PO BID PRN capsule 01/23/18 Heparin - 5,000 unit SQ BID vial 01/23/18 Insulin (Levemir) [Levemir Vial] 5 units SQ HS ml 01/23/18 Insulin (Levemir) [Levemir Vial] 26 units SQ DAILY@0900 ml 01/23/18 Insulin Sliding Scale [Novolog Vial Sliding Scale -] 1 vial SQ ACHS units 01/23 Mycophenolate Sodium [Mycophenolic Acid] 360 mg PO BID tablet. 01/23/18 hydrALAZINE HCL [Apresoline -] 25 mg PO BID tablet 01/23/18 predniSONE [Deltasone -] 5 mg PO DAILY tablet 01/23/18 Albuterol 2.5/Ipratropium 0.5 [Duoneb -] 1 amp NEB QID 02/08/18
[2018-02-15] MEDS ORDERED: SENNOSIDES 8.6MG TABLET (FP) PO ONE (12:17)
[2018-02-15] MEDS ORDERED: DOCUSATE SODIUM 100 MG CAPSULE (FP) PO ONE (12:17)
--- NOTE | 2018-02-15 12:17 | PN ---
Progress Note, Physician History of Present Illness: Pt seen and examined at bedside. He is awake and alert. He complains of constipation. - Current Medication List Current Medications: Active Medications Acetaminophen (Tylenol Oral Solution -) 650 mg PO Q4H PRN PRN Reason: FEVER Carvedilol (Coreg -) 25 mg PO BID [facility] Last Admin: 02/15/18 10:17 Dose: 25 mg Sodium Chloride (Normal Saline -) 1,000 mls @ 42 mls/hr IV ASDIR [facility] Last Admin: 02/14/18 14:11 Dose: 42 mls/hr Insulin Aspart (Novolog Vial Sliding Scale -) 1 vial SQ ACHS [facility] PRN Reason: Protocol Last Admin: 02/15/18 06:48 Dose: Not Given Insulin Detemir (Levemir Vial) 20 units SQ AM [facility] Last Admin: 02/15/18 06:48 Dose: 20 units Insulin Detemir (Levemir Vial) 15 units SQ HS [facility] Last Admin: 02/14/18 22:48 Dose: 15 units Mycophenolate Sodium (Mycophenolic Acid) 360 mg PO BID [facility] Last Admin: 02/15/18 10:20 Dose: 360 mg Ondansetron HCl (Zofran Injection) 8 mg IVPB Q6H PRN PRN Reason: NAUSEA Last Admin: 02/13/18 11:36 Dose: 8 mg Prednisone (Deltasone -) 5 mg PO DAILY [facility] Last Admin: 02/15/18 10:17 Dose: 5 mg Tacrolimus (Prograf) 1 mg PO BID [facility] Last Admin: 02/15/18 10:20 Dose: 1 mg Vancomycin HCl (Vancomycin Oral Solution) 125 mg PO Q6HPO [facility] Last Admin: 02/15/18 06:13 Dose: 125 mg - Objective Vital Signs: Vital Signs Temperature 98.2 F 02/15/18 06:00 Pulse Rate 64 02/15/18 06:00 Respiratory Rate 20 02/15/18 06:00 Blood Pressure 147/52 02/15/18 06:00 O2 Sat by Pulse Oximetry (%) 96 02/14/18 21:00 Constitutional: Yes: Calm Eyes: Yes: Conjunctiva Clear HENT: Yes: Atraumatic Cardiovascular: Yes: S1, S2 Respiratory: Yes: CTA Bilaterally Gastrointestinal: Yes: Soft Genitourinary: Yes: Other (graft soft and non tender) Edema: No Neurological: Yes: Oriented Psychiatric: Yes: Oriented Labs: CBC, BMP 02/14/18 06:57 02/14/18 06:57 INR, PTT INR 0.97 (0.82-1.09) 02/08/18 13:38 Problem List - Problems (1) Acute respiratory failure Code(s): J96.00 - ACUTE RESPIRATORY FAILURE, UNSP W HYPOXIA OR HYPERCAPNIA (2) Bradycardia Code(s): R00.1 - BRADYCARDIA, UNSPECIFIED (3) Hypotension Code(s): I95.9 - HYPOTENSION, UNSPECIFIED (4) Renal transplant disorder Code(s): T86.10 - UNSPECIFIED COMPLICATION OF KIDNEY TRANSPLANT (5) Shock Code(s): R57.9 - SHOCK, UNSPECIFIED Assessment/Plan Current Medications Generic Name Dose Route Start Last Admin Trade Name Freq PRN Reason Stop Dose Admin Acetaminophen 650 mg 02/10/18 12:38 Tylenol Oral Solution - PO Q4H PRN FEVER Carvedilol 25 mg 02/13/18 11:00 02/15/18 10:17 Coreg - PO 25 mg BID [facility] Administration Sodium Chloride 1,000 mls @ 42 mls/hr 02/10/18 12:38 02/14/18 14:11 Normal Saline - IV 42 mls/hr ASDIR [facility] Administration Insulin Aspart 1 vial 02/10/18 16:30 02/15/18 06:48 Novolog Vial Sliding Scale - SQ Not Given ACHS [facility] Protocol Insulin Detemir 20 units 02/14/18 07:00 02/15/18 06:48 Levemir Vial SQ 20 units AM [facility] Administration Insulin Detemir 15 units 02/14/18 22:00 02/14/18 22:48 Levemir Vial SQ 15 units HS [facility] Administration Mycophenolate Sodium 360 mg 02/10/18 22:00 02/15/18 10:20 Mycophenolic Acid PO 360 mg BID [facility] Administration Ondansetron HCl 8 mg 02/13/18 10:50 02/13/18 11:36 Zofran Injection IVPB 8 mg Q6H PRN Administration NAUSEA Prednisone 5 mg 02/11/18 10:00 02/15/18 10:17 Deltasone - PO 5 mg DAILY [facility] Administration Tacrolimus 1 mg 02/10/18 22:00 02/15/18 10:20 Prograf PO 1 mg BID [facility] Administration Vancomycin HCl 125 mg 02/10/18 18:00 02/15/18 06:13 Vancomycin Oral Solution PO 125 mg Q6HPO [facility] Administration Impression 1. CKD 2. kidney transplant 3. DM 4. hx of syncope 5. HTN 6. hyperlipidemia 7. acute respiratory failure requiring intubation 8. change in mental status 9. bradycardia 10. r/o sepsis 11. r/o meningitis Plan - can d/c fluids - will give a dose of colace - monitor renal function - will see as outpt - cont transplant meds - prograf 1 mg q 12 hrs, mycophenolate 360 bid, prednisone 5 mg daily are his transplant meds Dr Perez
[2018-02-15 12:18] VITALS: BP 144/59; PULSE 72; TEMP 98.6
[2018-02-15] MEDS: SODIUM CHLORIDE 1,000 ML IV SCH (12:44)
--- NOTE | 2018-02-15 13:47 | CON.ENT ---
Consult - History of Present Illness Chief Complaint: hoarseness, dysphagia History of Present Illness: 78 yo M with numerous medical problems; - History Source History Provided By: Patient, Medical Record Limitations to Obtaining History: Clinical Condition - Past Medical History Cardio/Vascular: Yes: CAD (CABG), HTN, Other (PAD, heel osteo in 04/05) Renal/: Yes: Other (S/P Kidney tranplant 2008. 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) Endocrine: Yes: Diabetes Mellitus - Past Surgical History Past Surgical History: Yes: AV Fistula/Graft (right upper arm, non working), CABG, Kidney Transplant (right 2009) - Alcohol/Substance Use Hx Alcohol Use: No History of Substance Use: reports: None - Smoking History Smoking history: Never smoked Have you smoked in the past 12 months: No Aproximately how many cigarettes per day: 0 - Social History Usual Living Arrangement: Alone ADL: Support Services History of Recent Travel: No Home Medications - Allergies Allergies/Adverse Reactions: Allergies Allergy/AdvReac Type Severity Reaction Status Date / Time No Known Drug Allergies Allergy Verified 02/08/18 13:02 - Home Medications Home Medications: Ambulatory Orders Amlodipine Besylate [Norvasc -] 10 mg PO DAILY 05/17/17 Aspirin [Jena Chewable Aspirin] 81 mg PO HS 05/17/17 Atorvastatin Ca [Lipitor] 10 mg PO HS 05/17/17 Carvedilol [Coreg -] 25 mg PO BID 05/17/17 Duloxetine HCl [Cymbalta] 20 mg PO BID 05/17/17 Tamsulosin HCl [Flomax] 0.4 mg PO HS 05/17/17 predniSONE [Deltasone -] 5 mg PO DAILY 05/17/17 Acetaminophen [Tylenol .Regular Strength -] 650 mg PO Q4H PRN tablet 11/29/17 Tacrolimus 1 mg PO BID 11/29/17 Insulin (Levemir) [Levemir Vial] 8 units SQ HS ml 12/05/17 Insulin (Levemir) [Levemir Vial] 25 units SQ AM #0 ml 12/05/17 Docusate Sodium [Colace -] 100 mg PO BID PRN capsule 01/23/18 Heparin - 5,000 unit SQ BID vial 01/23/18 Insulin (Levemir) [Levemir Vial] 5 units SQ HS ml 01/23/18 Insulin (Levemir) [Levemir Vial] 26 units SQ DAILY@0900 ml 01/23/18 Insulin Sliding Scale [Novolog Vial Sliding Scale -] 1 vial SQ ACHS units 01/23 Mycophenolate Sodium [Mycophenolic Acid] 360 mg PO BID tablet. 01/23/18 hydrALAZINE HCL [Apresoline -] 25 mg PO BID tablet 01/23/18 predniSONE [Deltasone -] 5 mg PO DAILY tablet 01/23/18 Albuterol 2.5/Ipratropium 0.5 [Duoneb -] 1 amp NEB QID 02/08/18 Insulin Sliding Scale [Novolog Vial Sliding Scale -] 1 vial SQ ACHS units 02/15 Vancomycin Oral Solution 125 mg PO Q6HPO 14 Days ml 02/15/18 Physical Exam-ENT Vital Signs: Vital Signs Temperature 98.6 F 02/15/18 10:00 Pulse Rate 72 02/15/18 10:00 Respiratory Rate 20 02/15/18 10:00 Blood Pressure 144/59 02/15/18 10:00 O2 Sat by Pulse Oximetry (%) 96 02/15/18 10:00
== END 2018-02-15 14:42 | DRG 208 ==
LOC: JER 12:53 → JERBED 16:29 → JICU 19:20 → J4W 02-10 14:52
PROVIDERS: ADMIT Internal Medicine; ATTEND Family Medicine
PROC: 5A1945Z Respiratory Ventilation, 24-96 Consecutive Hours (ICD-10-PCS; principal; 2018-02-08)
PROC: 0BH17EZ Insertion of Endotracheal Airway into Trachea, Via Natural or Artificial Opening (ICD-10-PCS; 2018-02-08)
DX: J96.00 Acute respiratory failure, unspecified whether with hypoxia or hypercapnia (principal); A41.9 Sepsis, unspecified organism; T86.10 Unspecified complication of kidney transplant; R57.9 Shock, unspecified; P91.60 Hypoxic ischemic encephalopathy [HIE], unspecified; A04.72 Enterocolitis due to Clostridium difficile, not specified as recurrent; E11.52 Type 2 diabetes mellitus with diabetic peripheral angiopathy with gangrene; I95.9 Hypotension, unspecified; T68.XXXA Hypothermia, initial encounter; I25.10 Atherosclerotic heart disease of native coronary artery without angina pectoris; R13.10 Dysphagia, unspecified; R00.1 Bradycardia, unspecified; I12.9 Hypertensive chronic kidney disease with stage 1 through stage 4 chronic kidney disease, or unspecified chronic kidney disease; N18.9 Chronic kidney disease, unspecified; R41.82 Altered mental status, unspecified; E78.5 Hyperlipidemia, unspecified; R55 Syncope and collapse
CPT/HCPCS: 36415; 36600; 70450-TC; 71045-TC-FY; 74018-TC-FY; 74230-TC-FY; 76856-TC; 80053; 80197; 81003; 82272; 82375; 82465; 82550; 82803; 82945; 82962; 83036; 83050; 83605; 83718; 83721; 83735; 84100; 84157; 84443; 84478; 84484; 85025; 85610; 86644; 86663; 86664; 86665; 86788; 86789; 86850; 86900; 86901; 87040; 87070; 87086; 87205; 87324; 87449; 87493; 87529; 89050; 92611-GN; 93005; 93010; 93306-TC; 94002; 95816; 97116-GP; 97161-GP; 99285-25; G0480; J7030

== ENCOUNTER 2018-03-17 14:49 | Inpatient (IN) | payer OTHER ==
--- NOTE | 2018-03-17 15:11 | PDOC ---
History of Present Illness - General Chief Complaint: Nausea/Vomiting Stated Complaint: WEAKNESS Time Seen by Provider: 03/17/18 14:51 History Source: Family Exam Limitations: No Limitations - History of Present Illness Initial Comments: 03/17/18 16:03 History was provided by daughter that visits him daily, who also interpreted for ROS. Pt is a 77 yo M with signif PMHx of HTN, DM (on insulin), PAD, CAD s/p [place] with CABG, s/p renal transplant 2009 on immunosuppressants, presenting with a day's hx of abdominal pain. The abdominal pain started at 5am this am, periumbilical and sharp, non radiating, initially 5/10. There was associated nausea and vomiting and subjective fevers. Pt was noted to have increased urinary frequency , no hematuria, no dysuria. No chest pain or palpitations, no cough, sore throat or nasal congestion. The pt was noticed to have increased somnolence yesterday, and skipped his last meal for the day. He woke up this morning, diaphoretic and sweating and was given sodas for presumed hypoglycemia. No seizures, no syncope, no leg swelling. He normally runs between 200-350s. Last BGM-183. Patient lives with his and walks using a cane for assistance. Since yesterday, he has been too weak to walk. He took all his medications today after the episode of vomiting and feels that the abdominal pain has resolved on presentation. 03/17/18 21:11 Timing/Duration: 24 hours Severity: moderate Past History - Past Medical History Allergies/Adverse Reactions: Allergies Allergy/AdvReac Type Severity Reaction Status Date / Time No Known Drug Allergies Allergy Verified 03/17/18 18:58 Home Medications: Ambulatory Orders Amlodipine Besylate [Norvasc -] 10 mg PO DAILY 05/17/17 Aspirin [Jena Chewable Aspirin] 81 mg PO HS 05/17/17 Atorvastatin Ca [Lipitor] 10 mg PO HS 05/17/17 Carvedilol [Coreg -] 25 mg PO BID 05/17/17 Duloxetine HCl [Cymbalta] 20 mg PO BID 05/17/17 Tamsulosin HCl [Flomax] 0.4 mg PO HS 05/17/17 predniSONE [Deltasone -] 5 mg PO DAILY 05/17/17 Acetaminophen [Tylenol .Regular Strength -] 650 mg PO Q4H PRN tablet 11/29/17 Tacrolimus 1 mg PO BID 11/29/17 Insulin (Levemir) [Levemir Vial] 8 units SQ HS ml 12/05/17 Insulin (Levemir) [Levemir Vial] 25 units SQ AM #0 ml 12/05/17 Docusate Sodium [Colace -] 100 mg PO BID PRN capsule 01/23/18 Insulin (Levemir) [Levemir Vial] 5 units SQ HS ml 01/23/18 Insulin (Levemir) [Levemir Vial] 26 units SQ DAILY@0900 ml 01/23/18 Insulin Sliding Scale [Novolog Vial Sliding Scale -] 1 vial SQ ACHS units 01/23 Mycophenolate Sodium [Mycophenolic Acid] 360 mg PO BID tablet. 01/23/18 hydrALAZINE HCL [Apresoline -] 25 mg PO BID tablet 01/23/18 Albuterol 2.5/Ipratropium 0.5 [Duoneb -] 1 amp NEB QID 02/08/18 Insulin Sliding Scale [Novolog Vial Sliding Scale -] 1 vial SQ ACHS units 02/15 Vancomycin Oral Solution 125 mg PO Q6HPO 14 Days ml 02/15/18 Anemia: No Asthma: No Cancer: No Cardiac Disorders: Yes (cardiac arrest) CVA: No COPD: No CHF: Yes Dementia: No Diabetes: Yes (iddm) Dialysis: Yes (stopped 2008) GI Disorders: No Disorders: No HTN: Yes Hypercholesterolemia: Yes Liver Disease: No Seizures: No Thyroid Disease: No - Surgical History Abdominal Surgery: No Appendectomy: No Cardiac Surgery: Yes (open heart surgery) Cholecystectomy: No Lung Surgery: No Neurologic Surgery: No Orthopedic Surgery: No - Immunization History Immunization Up to Date: Yes - Suicide/Smoking/Psychosocial Hx Smoking Status: No Smoking History: Never smoked Have you smoked in the past 12 months: No Number of Cigarettes Smoked Daily: 0 Information on smoking cessation initiated: No Hx Alcohol Use: No Drug/Substance Use Hx: No Substance Use Type: None Hx Substance Use Treatment: No Review of Systems - Review of Systems Able to Perform ROS?: Yes Is the patient limited Nepali proficient: Yes Constitutional: Yes: Chills, Fever, Malaise. No: Diaphoresis HEENTM: No: Blurred Vision, Nose Pain, Nose Congestion, Throat Pain, Difficulty Swallowing Respiratory: No: Cough, Orthopnea, Shortness of Breath, SOB at Rest, Wheezing, Productive cough Cardiac (ROS): No: Chest Pain, Edema, Syncope, Chest Tightness ABD/GI: Yes: Nausea, Poor Fluid Intake, Vomiting, Abdominal cramping. No: Abdominal Distended : No: Burning, Dysuria, Discharge, Hematuria, Pain Musculoskeletal: No: Back Pain, Muscle Pain, Muscle Weakness Neurological: Yes: Weakness. No: Headache, Numbness, Paresthesia, Seizure, Tremors, Dizziness *Physical Exam - Vital Signs Last Vital Signs Temp Pulse Resp BP Pulse Ox 99.5 F 112 H 20 127/54 97 03/17/18 14:55 03/17/18 14:55 03/17/18 14:55 03/17/18 14:55 03/17/18 14:55 - Physical Exam General Appearance: Yes: Appropriately Dressed HEENT: positive: EOMI, SEEMA, Pale Conjunctivae. negative: Nasal Congestion, Sinus Tenderness Neck: positive: Supple Respiratory/Chest: positive: Lungs Clear, Normal Breath Sounds. negative: Respiratory Distress Cardiovascular: positive: S1, S2, Tachycardia. negative: JVD Gastrointestinal/Abdominal: positive: Soft, Decreased BS Musculoskeletal: negative: CVA Tenderness Extremity: negative: Cyanosis, Pedal Edema, Swelling Integumentary: positive: Dry, Warm Neurologic: positive: Alert, Motor Strength 5/5. negative: EOM Palsy, Facial Droop ED Treatment Course - LABORATORY CBC & Chemistry Diagram: 03/17/18 15:50 03/17/18 16:27 Medical Decision Making - Medical Decision Making 03/17/18 16:19 Considering the patient has DM and renal transplant on immunosuppressive medication, he has tachycardia and normal oral Temp Rectal temperature will be ordered Sepsis ordered set will be put in-CBC, CMP, Lactic acid, CXR, pt, ptt, blood cultures, EKG CT abdomen w/o contrast will be put in because of renal transplant hx Pt will benefit from admission will contact hospital with results WBC-18,000, BUN/Cr-40/1.4 03/17/18 20:48 CT abdomen/pelvis- Bronchitis with areas of atelectasis and/or PNA No appendicitis Hypodense L adrenal nodule Dilation of transplant renal collecting systems likely related to distended bladder Differential will include distal stricture, recent or previously passed stone/ stones and pyelonephritis. Please correlate Minimal hiatal hernia is present No evidence of diverticulitis or colitis Areas of thickened appearance secondary to incomplete distension. Colitis considered less likely. Please correlate Moderately fecal filled colon distally. No significant colonic distension Assessment: Sepsis secondary to PNA or pyelonephritis Still pending UA 03/17/18 21:11 03/17/18 21:18 UA- negative Will admit for sepsis secondary to PNA 03/17/18 22:13 Follow up vitals pulse-72/min, 135/74 03/17/18 22:20 PCP: Dr Palacios *DC/Admit/Observation/Transfer Diagnosis at time of Disposition: Sepsis, Pneumonia - Discharge Dispostion Condition at time of disposition: Fair Admit: Yes - Referrals Referrals: Gt Villela MD [Primary Care Provider] - Mino Abel MD [Staff Physician] - - Patient Instructions - Post Discharge Activity - Attestations Physician Attestion: 03/17/18 22:23 Leila Simon MD
--- NOTE | 2018-03-17 15:55 | PDOC ---
Attending Attestation - HPI HPI: 03/17/18 16:21 The patient is a 78 year old male with history of hypertension, IDDM, PAD, CAD s /p [place] s/p CABG, s/p renal transplant on immunosuppressants, brought to the ED for complaints of right sided abdominal pain with nausea, vomiting, and subjective fever for 1 day. Per family at bedside, the patient seemed more confused and weak appearing yesterday and skipped dinner. Today, he was noted to be pale and diaphoretic. Abdominal pain is reportedly improved on evaluation. PCP: Dr. Gt Villela - Physicial Exam PE: 03/17/18 16:25 Vitals: Triage vital signs reviewed General Appearance: No acute distress, well nourished, well developed Head: Atraumatic Eyes: Pupils equal reactive round, extraocular movement intact Neck: Supple; No nuchal rigidity Chest Wall: Nontender Cardiac: Tachycardic rate, regular rhythm, no murmurs, no rubs, no gallops Lungs: Clear to auscultation bilateral, good air movement bilaterally Abdomen: +Right sided abdominal tenderness to palpation. Soft, normal bowel sounds, nontender to palpation Extremities: Full range of motion to all extremities, no cyanosis, clubbing, or edema Skin: +Pallor. Warm, no rashes or lesions, no rash, no petechiae Psych: Normal mood, normal affect - Medical Decision Making 03/17/18 16:32 Documentation prepared by Ligia Canchola, acting as director of medical education for Kevin Bautista MD. <Ligia Canchola - Last Filed: 03/17/18 16:21> - Resident Resident Name: Leila Simon I - ED Attending Attestation I have performed the following: I have examined & evaluated the patient, The case was reviewed & discussed with the resident, I agree w/resident's findings & plan, Exceptions are as noted - Critical Care Time Total Critical Care Time: 45 Critical Care Statement: The care of this patient involved high complexity decision making to prevent further life threatening deterioration of the patient 's condition and/or to evaluate & treat vital organ system(s) failure or risk of failure. - Medical Decision Making The patient is a 78 year old male with history of hypertension, IDDM, PAD, CAD s /p [place] s/p CABG, s/p renal transplant on immunosuppressants, brought to the ED for complaints of right sided abdominal pain with nausea, vomiting, and subjective fever for 1 day. Per family at bedside, the patient seemed more confused and weak appearing yesterday and skipped dinner. Today, he was noted to be pale and diaphoretic. Abdominal pain is reportedly improved on evaluation. History examination and vital signs concerning for sepsis. Sepsis order set initiated. Reevaluation elevated white blood cell count noted Zosyn ordered as well as IV fluids Given patient with kidney transplant and elevated creatinine unable to perform CT with IV contrast will perform CT abdomen and pelvis with noncontrast Final read on CAT scan pending. Dr. Persaud to follow up results and reassess and dispel patient. <Kevin Bautista - Last Filed: 03/17/18 19:57> Heart Score/ECG Review - ECG Impressions Comment:: EKG performed that 1533 demonstrates sinus rhythm 82 bpm right bundle branch block, left anterior fascicular block, no ST elevations or T-wave inversions Interpreted by me. <Kevin Bautista - Last Filed: 03/17/18 19:57>
[2018-03-17 16:06] LABS: BASO % 0.4 % (0-2.0); EOS % 0.1 % (0-4.5); HEMATOCRIT 38.8 % (35.4-49); HEMOGLOBIN 13.2 GM/dL (11.7-16.9); LYMPH % 4.6 % (8-40); MCH 29.7 pg (25.7-33.7); MCHC 33.9 g/dl (32.0-35.9); MEAN CELL VOLUME 87.6 fl (80-96); MEAN PLT VOLUME 8.6 fl (7.5-11.1); MONO % 6.7 % (3.8-10.2); NEUT % 88.2 % (42.8-82.8); PLATELET COUNT 207 K/MM3 (134-434); RBC 4.43 M/mm3 (4.00-5.60); RDW 15.9 % (11.9-15.9); WHITE BLOOD COUNT 18.1 K/mm3 (4.0-10.0)
[2018-03-17] MEDS ORDERED: PIPERACILLIN/TAZOBACTAM 4.5 GM VIAL IVPB ONE (16:18)
[2018-03-17 17:02] LABS: VENOUS PC02 52.5 mmHg (38-52)
[2018-03-17 17:08] LABS: VENOUS PH 7.02 (7.32-7.42)
[2018-03-17] MEDS ORDERED: PIPERACILLIN/TAZOB 4.5 GM 4.5 GM/100 ML BAG IVPB ONE (17:09)
[2018-03-17 17:19] LABS: INR 0.98 (0.82-1.09); PROTHROMBIN TIME (PATIENT) 11.1 SEC (9.7-13.0)
[2018-03-17 17:22] LABS: ACTIVATED PTT 25.6 SECONDS (26.9-34.4)
[2018-03-17] MEDS ORDERED: SODIUM CHLORIDE 0.9% 1000 ML INFUS.BAG IV ONE (17:28)
[2018-03-17] MEDS ORDERED: SODIUM CHLORIDE 0.9% 1000 ML INFUS.BAG IV STA (17:30)
[2018-03-17 18:16] LABS: ALBUMIN 3.5 g/dl (3.4-5.0); ALK PHOS 72 U/L (45-117); ANION GAP 9 (8-16); BILIRUBIN,TOTAL 0.3 mg/dL (0.2-1.0); BLOOD UREA NITROGEN 40 mg/dL (7-18); CALCIUM 8.8 mg/dL (8.5-10.1); CHLORIDE 104 mmol/L (98-107); CO2 29 mmol/L (21-32); CREATININE 1.4 mg/dL (0.7-1.3); GLUCOSE,RANDOM 155 mg/dL (74-106); POTASSIUM 4.2 mmol/L (3.5-5.1); SGOT/AST 11 U/L (15-37); SGPT/ALT 14 U/L (12-78); SODIUM 142 mmol/L (136-145); TOT PROT 6.3 g/dl (6.4-8.2)
[2018-03-17] MEDS ORDERED: ACETAMINOPHEN 1000 MG/100 ML VIAL (NON FORMULARY) IVPB ONE (19:09)
[2018-03-17] MEDS ORDERED: ACETAMINOPHEN INJECTION 100 ML IVPB ONE (20:27)
[2018-03-17 21:53] LABS: URINE APPEARANCE CLEAR; URINE BILIRUBIN NEGATIVE (<2.0 mg/dL); URINE COLOR LTYELLOW; URINE GLUCOSE (UA) 1+ (NEGATIVE); URINE KETONE NEGATIVE (NEGATIVE); URINE LEUK ESTERASE NEGATIVE (NEGATIVE); URINE NITRITE NEGATIVE (NEGATIVE); URINE PROTEIN NEGATIVE (NEGATIVE); URINE UROBILINOGEN NEGATIVE mg/dL (0.2-1.0)
[2018-03-17] MEDS ORDERED: DOCUSATE SODIUM 100 MG CAPSULE (FP) PO PRN (23:19)
[2018-03-17] MEDS ORDERED: HEPARIN NA (PORCINE) 5,000 UNITS/ML 1ML VIAL ONE (23:34)
[2018-03-17] MEDS ORDERED: ASPIRIN 81 MG CHEWABLE TABLETS ONE (23:43)
--- NOTE | 2018-03-17 23:45 | HP ---
Admitting History and Physical - Primary Care Physician PCP: Nury Eid - Admission Chief Complaint: Diaphoresis, Fever, Abdominal Pain History of Present Illness: 78 y/o man from home. Presents to the ED with diaphoresis, subjective fever, abdominal pain x today. Per ED records: The abdominal pain started at 5am this am, periumbilical and sharp, non radiating, initially 5/10. There was associated nausea and vomiting and subjective fevers. Pt was noted to have increased urinary frequency, no hematuria, no dysuria. No chest pain or palpitations, no cough, sore throat or nasal congestion. The pt was noticed to have increased somnolence yesterday, and skipped his last meal for the day. He woke up this morning, diaphoretic and sweating and was given sodas for presumed hypoglycemia. No seizures, no syncope, no leg swelling. He normally runs between 200-350s. Last BGM-183. Patient lives with his and walks using a cane for assistance. Since yesterday, he has been too weak to walk. He took all his medications today after the episode of vomiting and feels that the abdominal pain has resolved on presentation. History Source: Patient, Family Member, Medical Record Limitations to Obtaining History: No Limitations - Past Medical History Cardiovascular: Yes: CAD (CABG), HTN, DE, Other (PAD, heel osteo in 04/05) Renal/: Yes: Other (S/P Kidney tranplant 2008. 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) Endocrine: Yes: Diabetes Mellitus - Past Surgical History Past Surgical History: Yes: AV Fistula/Graft (right upper arm, non working), CABG, Kidney Transplant (right 2008) - Smoking History Smoking history: Never smoked Have you smoked in the past 12 months: No Aproximately how many cigarettes per day: 0 - Alcohol/Substance Use Hx Alcohol Use: No History of Substance Use: reports: None - Social History ADL: Support Services History of Recent Travel: No Home Medications - Allergies Allergies/Adverse Reactions: Allergies Allergy/AdvReac Type Severity Reaction Status Date / Time No Known Drug Allergies Allergy Verified 03/17/18 18:58 - Home Medications Home Medications: Ambulatory Orders Amlodipine Besylate [Norvasc -] 10 mg PO DAILY 05/17/17 Aspirin [Jena Chewable Aspirin] 81 mg PO HS 05/17/17 Atorvastatin Ca [Lipitor] 10 mg PO HS 05/17/17 Carvedilol [Coreg -] 25 mg PO BID 05/17/17 Duloxetine HCl [Cymbalta] 20 mg PO BID 05/17/17 Tamsulosin HCl [Flomax] 0.4 mg PO HS 05/17/17 predniSONE [Deltasone -] 5 mg PO DAILY 05/17/17 Acetaminophen [Tylenol .Regular Strength -] 650 mg PO Q4H PRN tablet 11/29/17 Tacrolimus 1 mg PO BID 11/29/17 Insulin (Levemir) [Levemir Vial] 8 units SQ HS ml 12/05/17 Insulin (Levemir) [Levemir Vial] 25 units SQ AM #0 ml 12/05/17 Docusate Sodium [Colace -] 100 mg PO BID PRN capsule 01/23/18 Insulin (Levemir) [Levemir Vial] 5 units SQ HS ml 01/23/18 Insulin (Levemir) [Levemir Vial] 26 units SQ DAILY@0900 ml 01/23/18 Insulin Sliding Scale [Novolog Vial Sliding Scale -] 1 vial SQ ACHS units 01/23 Mycophenolate Sodium [Mycophenolic Acid] 360 mg PO BID tablet. 01/23/18 hydrALAZINE HCL [Apresoline -] 25 mg PO BID tablet 01/23/18 Albuterol 2.5/Ipratropium 0.5 [Duoneb -] 1 amp NEB QID 02/08/18 Insulin Sliding Scale [Novolog Vial Sliding Scale -] 1 vial SQ ACHS units 02/15 Vancomycin Oral Solution 125 mg PO Q6HPO 14 Days ml 02/15/18 Family Disease History - Family Disease History Family History: Unable to Obtain Review of Systems - Review of Systems Constitutional: reports: Diaphoresis, Fever Eyes: reports: No Symptoms HENT: reports: No Symptoms Neck: reports: No Symptoms Cardiovascular: reports: No Symptoms Respiratory: reports: No Symptoms Gastrointestinal: reports: Abdominal Pain Genitourinary: reports: No Symptoms Breasts: reports: No Symptoms Reported Musculoskeletal: reports: No Symptoms Integumentary: reports: No Symptoms Neurological: reports: No Symptoms Endocrine: reports: No Symptoms Hematology/Lymphatic: reports: No Symptoms Psychiatric: reports: No Symptoms Physical Examination Vital Signs: Vital Signs Temperature 99.5 F 03/17/18 20:50 Pulse Rate 72 03/17/18 22:23 Respiratory Rate 20 03/17/18 14:55 Blood Pressure 135/74 03/17/18 22:23 O2 Sat by Pulse Oximetry (%) 97 03/17/18 14:55 Constitutional: Yes: Well Nourished, No Distress, Calm Eyes: Yes: WNL, Conjunctiva Clear, EOM Intact, PERRL HENT: Yes: WNL, Atraumatic, Normocephalic Neck: Yes: WNL, Supple, Trachea Midline Cardiovascular: Yes: Regular Rate and Rhythm, S1, S2 Respiratory: Yes: Diminished, Rhonchi Gastrointestinal: Yes: Normal Bowel Sounds, Soft, Abdomen, Obese ...Rectal Exam: Yes: Deferred Renal/: Yes: WNL Breast(s): Yes: WNL Musculoskeletal: Yes: WNL Extremities: Yes: WNL Edema: No Peripheral Pulses WNL: Yes Integumentary: Yes: WNL Neurological: Yes: WNL, Alert, Oriented, Cran Nerves II-XII Intact ...Motor Strength: WNL Psychiatric: Yes: WNL, Alert, Oriented Labs: CBC, BMP 03/17/18 15:50 03/17/18 16:27 Laboratory Results - last 24 hr 03/17/18 03/17/18 03/17/18 15:50 15:50 16:01 WBC 18.1 H D RBC 4.43 Hgb 13.2 Hct 38.8 MCV 87.6 MCH 29.7 MCHC 33.9 RDW 15.9 Plt Count 207 MPV 8.6 Neutrophils % 88.2 H D Lymphocytes % 4.6 L D Monocytes % 6.7 Eosinophils % 0.1 D Basophils % 0.4 PT with INR INR PTT (Actin FS) VBG pH POC VBG pCO2 POC VBG pO2 Mixed VBG HCO3 Sodium Cancelled Potassium Cancelled Chloride Cancelled Carbon Dioxide Cancelled Anion Gap Cancelled BUN Cancelled Creatinine Cancelled Creat Clearance w eGFR Cancelled POC Glucometer Random Glucose Cancelled Lactic Acid 3.0 H* Calcium Cancelled Total Bilirubin Cancelled AST Cancelled ALT Cancelled Alkaline Phosphatase Cancelled Troponin I Total Protein Cancelled Albumin Cancelled Urine Color Urine Appearance Urine pH Ur Specific Stuart Urine Protein Urine Glucose (UA) Urine Ketones Urine Blood Urine Nitrite Urine Bilirubin Urine Urobilinogen Ur Leukocyte Esterase 03/17/18 03/17/18 03/17/18 16:27 16:27 16:27 WBC RBC Hgb Hct MCV MCH MCHC RDW Plt Count MPV Neutrophils % Lymphocytes % Monocytes % Eosinophils % Basophils % PT with INR 11.10 INR 0.98 PTT (Actin FS) 25.6 L VBG pH POC VBG pCO2 POC VBG pO2 Mixed VBG HCO3 Sodium 142 Potassium 4.2 Chloride 104 Carbon Dioxide 29 Anion Gap 9 BUN 40 H D Creatinine 1.4 H D Creat Clearance w eGFR 49.27 POC Glucometer Random Glucose 155 H D Lactic Acid Calcium 8.8 Total Bilirubin 0.3 D AST 11 L D ALT 14 Alkaline Phosphatase 72 Troponin I < 0.02 Total Protein 6.3 L Albumin 3.5 Urine Color Urine Appearance Urine pH Ur Specific Stuart Urine Protein Urine Glucose (UA) Urine Ketones Urine Blood Urine Nitrite Urine Bilirubin Urine Urobilinogen Ur Leukocyte Esterase 03/17/18 03/17/18 03/17/18 16:40 18:08 21:34 WBC RBC Hgb Hct MCV MCH MCHC RDW Plt Count MPV Neutrophils % Lymphocytes % Monocytes % Eosinophils % Basophils % PT with INR INR PTT (Actin FS) VBG pH 7.02 L* D POC VBG pCO2 52.5 H POC VBG pO2 142.0 H D Mixed VBG HCO3 12.9 L* Sodium Potassium Chloride Carbon Dioxide Anion Gap BUN Creatinine Creat Clearance w eGFR POC Glucometer Random Glucose Lactic Acid 0.9 Calcium Total Bilirubin AST ALT Alkaline Phosphatase Troponin I Total Protein Albumin Urine Color Ltyellow Urine Appearance Clear Urine pH 5.0 Ur Specific Stuart 1.013 Urine Protein Negative Urine Glucose (UA) 1+ H Urine Ketones Negative Urine Blood Negative Urine Nitrite Negative Urine Bilirubin Negative Urine Urobilinogen Negative Ur Leukocyte Esterase Negative 03/18/18 05:36 WBC RBC Hgb Hct MCV MCH MCHC RDW Plt Count MPV Neutrophils % Lymphocytes % Monocytes % Eosinophils % Basophils % PT with INR INR PTT (Actin FS) VBG pH POC VBG pCO2 POC VBG pO2 Mixed VBG HCO3 Sodium Potassium Chloride Carbon Dioxide Anion Gap BUN Creatinine Creat Clearance w eGFR POC Glucometer 178 Random Glucose Lactic Acid Calcium Total Bilirubin AST ALT Alkaline Phosphatase Troponin I Total Protein Albumin Urine Color Urine Appearance Urine pH Ur Specific Stuart Urine Protein Urine Glucose (UA) Urine Ketones Urine Blood Urine Nitrite Urine Bilirubin Urine Urobilinogen Ur Leukocyte Esterase Intake & Output 03/15/18 03/16/18 03/17/18 03/18/18 23:59 23:59 23:59 23:59 Intake Total 350 Balance 350 Weight 74.843 kg 68.748 kg Current Medications Generic Name Dose Route Start Last Admin Trade Name Freq PRN Reason Stop Dose Admin Albuterol/Ipratropium 1 amp 03/18/18 08:00 Duoneb - NEB RQID [facility] Amlodipine Besylate 10 mg 03/18/18 10:00 Norvasc - PO DAILY [facility] Aspirin 81 mg 03/17/18 23:30 03/17/18 23:49 Asa - PO 81 mg HS [facility] Administration Atorvastatin Calcium 10 mg 03/18/18 23:30 Lipitor - PO HS [facility] Carvedilol 25 mg 03/18/18 10:00 Coreg - PO BID [facility] Docusate Sodium 100 mg 03/17/18 23:19 Colace - PO Q12H PRN CONSTIPATION Duloxetine HCl 20 mg 03/18/18 10:00 Cymbalta - PO BID [facility] Heparin Sodium (Porcine) 5,000 unit 03/18/18 10:00 Heparin - SQ BID [facility] Hydralazine HCl 25 mg 03/18/18 10:00 Apresoline - PO BID [facility] Piperacillin Sod/Tazobactam 100 mls @ 200 mls/hr 03/18/18 03:00 Sod 4.5 gm/ Dextrose IVPB Q6H-IV [facility] Protocol Piperacillin Sod/Tazobactam 100 mls @ 200 mls/hr 03/18/18 03:00 03/18/18 03: 25 Sod 4.5 gm/ Dextrose IVPB 03/18/18 09:29 200 mls/hr Q6H-IV [facility] Administration Mycophenolate Sodium 360 mg 03/17/18 23:30 03/17/18 23:49 Mycophenolic Acid PO 360 mg BID [facility] Administration Prednisone 5 mg 03/18/18 10:00 Deltasone - PO DAILY [facility] Tacrolimus 1 mg 03/17/18 23:30 03/17/18 23:49 Prograf PO 1 mg BID [facility] Administration Tamsulosin HCl 0.4 mg 03/18/18 08:30 Flomax - PO 0830 [facility] Imaging - Results Chest X-ray: Image Reviewed Cat Scan: Image Reviewed Problem List - Problems (1) Sepsis Assessment/Plan: - Likely secondary to Pneumonia - qSOFA 1 - SIRS Criteria Met V: T 99.5, P 112, WBC 18.1, BUN 40 LA 3.0 - Blood Cultures- pending - Urine Culture-pending - Urine Legionella-pending - Sputum Culture-pending - Zosyn given in ED, will continue - Appreciate ID Consult - Monitor CBC - Monitor vitals Code(s): A41.9 - SEPSIS, UNSPECIFIED ORGANISM (2) HCAP (healthcare-associated pneumonia) Assessment/Plan: - recent admission 01/2018 - CURB65 Score 3 - Blood Cultures-pending - Urine Legionella, Urine culture-pending - Will treat empirically with Zosyn - ID Consult - Monitor CBC, BMP - Monitor vitals Code(s): J18.9 - PNEUMONIA, UNSPECIFIED ORGANISM (3) CHUCK (acute kidney injury) Assessment/Plan: - Cr 1.4 at baseline - Continue to monitor and treat with interventions accordingly Code(s): N17.9 - ACUTE KIDNEY FAILURE, UNSPECIFIED (4) Leukocytosis Assessment/Plan: - Likely secondary to Pneumonia - Treating PNA wih Zosyn - Monitor CBC Code(s): D72.829 - ELEVATED WHITE BLOOD CELL COUNT, UNSPECIFIED (5) MDRO (multiple drug resistant organisms) resistance Assessment/Plan: - Continue Zosyn for HCAP - ID Consult Code(s): Z16.35 - RESISTANCE TO MULTIPLE ANTIMICROBIAL DRUGS (6) IDDM (insulin dependent diabetes mellitus) Assessment/Plan: - Stable - BGMs - ISS Code(s): E11.9 - TYPE 2 DIABETES MELLITUS WITHOUT COMPLICATIONS; Z79.4 - JAIL (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 OF INSULIN (7) Renal transplant disorder Assessment/Plan: - Continue Tacrolimus, Mycophenolate - Monitor renal function Code(s): T86.10 - UNSPECIFIED COMPLICATION OF KIDNEY TRANSPLANT (8) HTN (hypertension) Assessment/Plan: - Monitor BP - Continue Amlodipine Code(s): I10 - ESSENTIAL (PRIMARY) HYPERTENSION Qualifiers: (9) Hx of CABG Assessment/Plan: - CAD, [place] hx - Code(s): Z95.1 - PRESENCE OF AORTOCORONARY BYPASS GRAFT Assessment/Plan 78 y/o man with a PMH: HTN, DM, PAD, CAD, s/p [place], CABG, Renal Transplant 2008 ( on immunosuppressant). Admitted for Sepsis secondary to Pneumonia. Visit type - Emergency Visit Emergency Visit: Yes ED Registration Date: 03/17/18 Care time: The patient presented to the Emergency Department on the above date and was hospitalized for further evaluation of their emergent condition. - New Patient This patient is new to me today: Yes Date on this admission: 03/17/18 - Critical Care Critical Care patient: No Hospitalist Screening - Colonoscopy Questionnaire Colonoscopy Questionnaire: Colonoscopy Questionnaire - Patient: 50 - 75 years old and never had a screening colonoscopy: Unknown History of colon or rectal polyps, or CA: Unknown History of IBD, Crohn's disease or UC: Unknown History of abdominal radiation therapy as a child: Unknown - Relative: 1 with colon or rectal CA, or polyps at age 60 or younger: Unknown Colon or rectal CA diagnosed at age 45 or younger: Unknown Multiple relatives with colon or rectal CA: Unknown - Outcome: Screening Result: Negative Screen
[2018-03-17] MEDS: ASPIRIN 81 MG CHEWABLE TABLETS PO SCH (23:49)
[2018-03-17] MEDS: TACROLIMUS ANHYDROUS 1 MG CAPSULE PO SCH (23:49)
[2018-03-17] MEDS: MYCOPHENOLATE SODIUM 360 MG TABLET.DR PO SCH (23:49)
[2018-03-18 02:43] VITALS: BMI 25.2
[2018-03-18] MEDS ORDERED: PIPERACILLIN/TAZOB 4.5 GM 4.5 GM in DEXTROSE 5%-WATER 100 ML IVPB SCH (03:00)
[2018-03-18] MEDS ORDERED: PIPERACILLIN/TAZOBACTAM 4.5 GM VIAL IVPB ONE ×2 (03:03→08:56)
[2018-03-18] MEDS ORDERED: DEXTROSE 5%-WATER 100 ML IVPB ONE ×2 (03:04→08:56)
[2018-03-18] MEDS: PIPERACILLIN/TAZOB 4.5 GM 4.5 GM in DEXTROSE 5%-WATER 100 ML IVPB SCH ×2 (03:25→09:01)
[2018-03-18] MEDS: ALBUTEROL SO4 2.5/IPRATROPIUM 0.5 INH SOL 3 ML VIAL.NEB. NEB SCH ×4 (07:22→19:28)
[2018-03-18] MEDS: TAMSULOSIN HCL 0.4 MG CAP.ER.24H (FP) PO SCH (09:00)
[2018-03-18] MEDS: HEPARIN NA (PORCINE) 5,000 UNITS/ML 1ML VIAL SQ SCH ×2 (09:18→21:07)
[2018-03-18] MEDS ORDERED: PT OWN MED DRAWER 7, Y5N ONE ×2 (09:21→20:56)
--- NOTE | 2018-03-18 09:21 | PN ---
Progress Note, Physician Chief Complaint: ID Multiple admissions for the mostly tajik speaking old renal transplant patient admitted couph low grade temp and not feeling well says better today - Current Medication List Current Medications: Active Medications Albuterol/Ipratropium (Duoneb -) 1 amp NEB RQID [facility] Last Admin: 03/18/18 07:22 Dose: 1 amp Amlodipine Besylate (Norvasc -) 10 mg PO DAILY [facility] Aspirin (Asa -) 81 mg PO HS [facility] Last Admin: 03/17/18 23:49 Dose: 81 mg Atorvastatin Calcium (Lipitor -) 10 mg PO HS [facility] Carvedilol (Coreg -) 25 mg PO BID [facility] Docusate Sodium (Colace -) 100 mg PO Q12H PRN PRN Reason: CONSTIPATION Duloxetine HCl (Cymbalta -) 20 mg PO BID [facility] Heparin Sodium (Porcine) (Heparin -) 5,000 unit SQ BID [facility] Hydralazine HCl (Apresoline -) 25 mg PO BID [facility] Piperacillin Sod/Tazobactam (Sod 4.5 gm/ Dextrose) 100 mls @ 200 mls/hr IVPB Q6H-IV [facility] PRN Reason: Protocol Piperacillin Sod/Tazobactam (Sod 4.5 gm/ Dextrose) 100 mls @ 200 mls/hr IVPB Q6H-IV [facility] Stop: 03/18/18 09:29 Last Admin: 03/18/18 03:25 Dose: 200 mls/hr Insulin Aspart (Novolog Vial Sliding Scale -) 1 vial SQ ACHS [facility] PRN Reason: Protocol Mycophenolate Sodium (Mycophenolic Acid) 360 mg PO BID [facility] Last Admin: 03/17/18 23:49 Dose: 360 mg Prednisone (Deltasone -) 5 mg PO DAILY [facility] Tacrolimus (Prograf) 1 mg PO BID [facility] Last Admin: 03/17/18 23:49 Dose: 1 mg Tamsulosin HCl (Flomax -) 0.4 mg PO 0830 [facility] - Objective Vital Signs: Vital Signs Temperature 98 F 03/18/18 03:23 Pulse Rate 80 03/18/18 03:23 Respiratory Rate 20 03/18/18 03:23 Blood Pressure 126/60 03/18/18 03:23 O2 Sat by Pulse Oximetry (%) 97 03/17/18 14:55 Constitutional: Yes: No Distress Eyes: Yes: WNL, Conjunctiva Clear, Occular Prosthesis HENT: Yes: Atraumatic Neck: Yes: WNL, Supple. No: Lymphadenopathy Cardiovascular: Yes: S1, S2. No: Murmur Respiratory: Yes: WNL, Regular, CTA Bilaterally, Diminished. No: Rales, Rhonchi Gastrointestinal: Yes: WNL, Normal Bowel Sounds, Soft. No: Tenderness, Tenderness, Epigastrium, Tenderness, Rebound Edema: No Labs: CBC, BMP 03/17/18 15:50 03/17/18 16:27 INR, PTT INR 0.98 (0.82-1.09) 03/17/18 16:27 Problem List - Problems (1) PNA (pneumonia) Code(s): J18.9 - PNEUMONIA, UNSPECIFIED ORGANISM (2) History of MRSA infection Code(s): Z86.14 - PERSONAL HISTORY OF METHICILLIN RESIS STAPH INFECTION (3) Renal transplant disorder Code(s): T86.10 - UNSPECIFIED COMPLICATION OF KIDNEY TRANSPLANT Assessment/Plan Microbiology Laboratory Tests 03/17/18 03/17/18 03/17/18 15:50 16:01 16:27 WBC 18.1 H D Hgb 13.2 Hct 38.8 Plt Count 207 Neutrophils % 88.2 H D Lymphocytes % 4.6 L D Creat Clearance w eGFR 49.27 Random Glucose 155 H D Lactic Acid 3.0 H* Total Bilirubin 0.3 D AST 11 L D ALT 14 Alkaline Phosphatase 72 Ur Leukocyte Esterase 03/17/18 21:34 WBC Hgb Hct Plt Count Neutrophils % Lymphocytes % Creat Clearance w eGFR Random Glucose Lactic Acid Total Bilirubin AST ALT Alkaline Phosphatase Ur Leukocyte Esterase Negative Assessment Renal transplant pt basilar infiltrates and PNA History of MRSA skin osteo finger Plan Blood cultures Isolation Nares screen Zosyn 3.375gr q 8 H JANET James MD
[2018-03-18] MEDS: TACROLIMUS ANHYDROUS 1 MG CAPSULE PO SCH ×2 (09:28→21:07)
[2018-03-18] MEDS: DULoxetine HCL 20 MG CAPSULE.DR (FP) PO SCH ×2 (09:28→21:07)
[2018-03-18] MEDS: MYCOPHENOLATE SODIUM 360 MG TABLET.DR PO SCH ×2 (09:34→21:07)
[2018-03-18 09:37] LABS: EOS % 0.8 % (0-4.5); HEMATOCRIT 33.3 % (35.4-49); HEMOGLOBIN 11.2 GM/dL (11.7-16.9); LYMPH % 20.1 % (8-40); MCH 29.6 pg (25.7-33.7); MCHC 33.7 g/dl (32.0-35.9); MEAN CELL VOLUME 87.9 fl (80-96); MEAN PLT VOLUME 8.3 fl (7.5-11.1); MONO % 6.5 % (3.8-10.2); NEUT % 71.6 % (42.8-82.8); PLATELET COUNT 185 K/MM3 (134-434); RBC 3.79 M/mm3 (4.00-5.60); RDW 15.9 % (11.9-15.9); WHITE BLOOD COUNT 10.3 K/mm3 (4.0-10.0)
--- NOTE | 2018-03-18 09:49 | CONS ---
DATE OF CONSULTATION: HISTORY: This is one of multiple admissions for this 78-year-old formal renal transplant patient admitted with diaphoresis, generalized weakness, low-grade temperature, and coughing for 4-5 days. The patient is mostly Vietnamese speaking but does speak a little Trinidadian. He is well known to me from multiple prior admissions including follow up for an osteomyelitis of his distal 1st finger with MRSA infection, which completely treated. He denies any sore throat, shortness of breath, and currently says he feels better. He has no abdominal pain at this time. He denies urinary complaints. His blood sugars generally run between the 200s-350, according to the chart. The last blood pressure was 183. He lives with his and uses a cane for assistance, but the day prior to admission, he had become too weak to ambulate. He also reported an episode of vomiting. PAST MEDICAL HISTORY: Includes former kidney transplant 2008, previous dialysis, [place], hypertension, coronary artery disease, diabetes mellitus, osteomyelitis. MEDICATIONS: See order sheet for lengthy list. ALLERGIES: None known. SOCIAL HISTORY: Never smoked. No history of recent travel. [place] immigrant. FAMILY HISTORY: Positive for diabetes and coronary artery disease. REVIEW OF SYSTEMS: Respiratory: Denies shortness of breath. Nonproductive cough. Denies sore throat. Cardiac: No chest pain, palpitations, syncope. Gastrointestinal: As noted in history of present illness. No diarrhea, blood per rectum, hematemesis. Genitourinary: No dysuria, hematuria. PHYSICAL EXAMINATION: General: Reveals a pleasant, elderly male in no acute distress. Vital Signs: Temperature maximum 99.5, pulse 86, blood pressure 128/85, respirations 20. Neck: Supple. No adenopathy. Lungs: Clear to percussion and auscultation. No rales or rhonchi. Diminished breath sounds. Heart: S1, S2. Regular rhythm. No audible murmur. Abdomen: Soft and nontender without hepatosplenomegaly. Extremities: No clubbing, cyanosis, or edema. LABORATORY DATA: White count 18.1, hemoglobin 13.2, platelets 207. INR 0.98. BUN 40, creatinine 1.4, lactic acid 3. Liver enzymes within normal limits. Urinalysis negative for leukocyte esterase. CT abdomen shows no evidence of acute intra-abdominal pathology. Transplanted kidney. Noted bilateral opacities. Noted atelectasis versus infiltrate. Several right lower rib fractures noted. ASSESSMENT: A 78-year-old Vietnamese male post renal transplant on dialysis medications, prednisone, Tacrolimus, Cellcept who presents with a cough, generalized weakness, fever, and leukocytosis most likely secondary to respiratory tract infection, possible early basilar infiltrates. Multiple prior admissions including methicillin-resistant Staphylococcus aureus, wound cultures. PLAN: Blood and urine cultures sent. Legionella urinary antigen. Empiric therapy with piperacillin and tazobactam. Nares screening for MRSA. Empiric therapy with Zosyn 3.375 g per q.8 hours. Contact isolation. JAMES SANDOVAL M.D. [id number]
[2018-03-18] MEDS ORDERED: PIPERACILLIN/TAZOBACTAM 3.375 GM VIAL IVPB ONE ×2 (09:53→17:09)
[2018-03-18] MEDS ORDERED: DEXTROSE 5%-WATER - 50 ML IVPB ONE ×2 (09:54→17:09)
[2018-03-18] MEDS: PIPERACILLIN/TAZOB 3.375 GM 3.375 GM in DEXTROSE 5%-WATER - 50 ML IVPB SCH ×2 (09:56→17:34)
[2018-03-18] MEDS ORDERED: CARVEDILOL 25 MG TABLET (FP) PO SCH (10:00)
[2018-03-18] MEDS ORDERED: amLODIPine BESYLATE 10 MG TABLET (FP) PO SCH (10:00)
[2018-03-18] MEDS ORDERED: predniSONE 5 MG TABLET (UD) PO SCH (10:00)
[2018-03-18] MEDS ORDERED: hydrALAZINE HCL 25 MG TABLET (FP) PO SCH (10:00)
[2018-03-18 10:01] LABS: ANION GAP 6 (8-16); BLOOD UREA NITROGEN 35 mg/dL (7-18); CHLORIDE 104 mmol/L (98-107); CO2 28 mmol/L (21-32); CREATININE 1.4 mg/dL (0.7-1.3); GLUCOSE,RANDOM 204 mg/dL (74-106); SODIUM 138 mmol/L (136-145)
[2018-03-18 10:06] LABS: POTASSIUM 4.4 mmol/L (3.5-5.1)
--- NOTE | 2018-03-18 11:33 | EKG ---
Test Reason : Blood Pressure : / mmHG Vent. Rate : 082 BPM Atrial Rate : 082 BPM P-R Int : 168 ms QRS Dur : 142 ms QT Int : 394 ms P-R-T Axes : 013 -54 056 degrees QTc Int : 460 ms NORMAL SINUS RHYTHM RIGHT BUNDLE BRANCH BLOCK LEFT ANTERIOR FASCICULAR BLOCK BIFASCICULAR BLOCK MODERATE VOLTAGE CRITERIA FOR LVH, MAY BE NORMAL VARIANT CANNOT RULE OUT SEPTAL INFARCT , AGE UNDETERMINED ABNORMAL ECG WHEN COMPARED WITH ECG OF 09-FEB-2018 11:09, NO SIGNIFICANT CHANGE WAS FOUND Confirmed by NEEL BEAN MD ([id number]) on 03/18/2018 11:32:31 AM Referred By: Confirmed By:NEEL BEAN MD
[2018-03-18] MEDS ORDERED: INSULIN (NOVOLOG) ASPART 100 UNITS/ML 10ML VIAL ONE (12:47)
[2018-03-18] MEDS: INSULIN SLIDING SCALE (NOVOLOG) 1 VIAL SQ SCH ×4 (12:54→23:26)
[2018-03-18] MEDS: HYDROCORTISONE SOD SUCCINATE 100 MG/2 ML VIAL IVPB SCH ×2 (12:55→21:07)
[2018-03-18] MEDS: ASPIRIN 81 MG CHEWABLE TABLETS PO SCH (21:06)
--- NOTE | 2018-03-18 21:48 | CONSULT ---
Consult Consult Specialty:: endocrine Referred by:: pcp Reason for Consultation:: diabetes mellitus - History of Present Illness Chief Complaint: nausea vomiting History of Present Illness: 78 year old male with history of hypertension, IDDM, PAD, CAD s/p [place] s/p CABG, s /p renal transplant on immunosuppressants, brought to the ED for complaints of right sided abdominal pain with nausea, vomiting, and subjective fever for 1 day. Per family at bedside, the patient seemed more confused and weak appearing yesterday and skipped meals and slept most of the day,woke up weak lethargic with nausea,vomiting and chills with elevated blood sugars despite not eating - Past Medical History Cardio/Vascular: Yes: CAD (CABG), HTN, [place], Other (PAD, heel osteo in 04/05) Renal/: Yes: Other (S/P Kidney tranplant 2008. 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) Endocrine: Yes: Diabetes Mellitus - Past Surgical History Past Surgical History: Yes: AV Fistula/Graft (right upper arm, non working), CABG, Kidney Transplant (right 2009) - Alcohol/Substance Use Hx Alcohol Use: No History of Substance Use: reports: None - Smoking History Smoking history: Never smoked Have you smoked in the past 12 months: No Aproximately how many cigarettes per day: 0 - Social History Usual Living Arrangement: Alone ADL: Support Services History of Recent Travel: No Home Medications - Allergies Allergies/Adverse Reactions: Allergies Allergy/AdvReac Type Severity Reaction Status Date / Time No Known Drug Allergies Allergy Verified 03/17/18 18:58 - Home Medications Home Medications: Ambulatory Orders Amlodipine Besylate [Norvasc -] 10 mg PO DAILY 05/17/17 Aspirin [Jena Chewable Aspirin] 81 mg PO HS 05/17/17 Atorvastatin Ca [Lipitor] 10 mg PO HS 05/17/17 Carvedilol [Coreg -] 25 mg PO BID 05/17/17 Duloxetine HCl [Cymbalta] 20 mg PO BID 05/17/17 Tamsulosin HCl [Flomax] 0.4 mg PO HS 05/17/17 predniSONE [Deltasone -] 5 mg PO DAILY 05/17/17 Acetaminophen [Tylenol .Regular Strength -] 650 mg PO Q4H PRN tablet 11/29/17 Tacrolimus 1 mg PO BID 11/29/17 Insulin (Levemir) [Levemir Vial] 8 units SQ HS ml 12/05/17 Insulin (Levemir) [Levemir Vial] 25 units SQ AM #0 ml 12/05/17 Docusate Sodium [Colace -] 100 mg PO BID PRN capsule 01/23/18 Insulin (Levemir) [Levemir Vial] 5 units SQ HS ml 01/23/18 Insulin (Levemir) [Levemir Vial] 26 units SQ DAILY@0900 ml 01/23/18 Insulin Sliding Scale [Novolog Vial Sliding Scale -] 1 vial SQ ACHS units 01/23 Mycophenolate Sodium [Mycophenolic Acid] 360 mg PO BID tablet. 01/23/18 hydrALAZINE HCL [Apresoline -] 25 mg PO BID tablet 01/23/18 Albuterol 2.5/Ipratropium 0.5 [Duoneb -] 1 amp NEB QID 02/08/18 Insulin Sliding Scale [Novolog Vial Sliding Scale -] 1 vial SQ ACHS units 02/15 Vancomycin Oral Solution 125 mg PO Q6HPO 14 Days ml 02/15/18 Review of Systems - Review of Systems Constitutional: reports: Lethargy, Weakness Eyes: reports: No Symptoms HENT: reports: Nasal Congestion, Throat Pain Neck: reports: No Symptoms, Pain on Movement Cardiovascular: reports: Shortness of Breath Respiratory: reports: Exercise Intolerance, SOB on Exertion Gastrointestinal: reports: Bloating, Constipation Genitourinary: reports: No Symptoms Breasts: reports: No Symptoms Reported Musculoskeletal: reports: Muscle Cramps, Muscle Weakness Neurological: reports: Unsteady Gait, Weakness Physical Exam Vital Signs: Vital Signs Temperature 98.5 F 03/18/18 17:40 Pulse Rate 74 03/18/18 17:40 Respiratory Rate 18 03/18/18 17:40 Blood Pressure 140/41 03/18/18 17:40 O2 Sat by Pulse Oximetry (%) 97 03/17/18 14:55 Constitutional: Yes: Anxious Eyes: Yes: EOM Intact HENT: Yes: Normocephalic Neck: Yes: Trachea Midline Cardiovascular: Yes: Regular Rate and Rhythm Respiratory: Yes: CTA Bilaterally Gastrointestinal: Yes: Normal Bowel Sounds ...Rectal Exam: Yes: Deferred Renal/: Yes: WNL Breast(s): Yes: WNL Musculoskeletal: Yes: WNL Extremities: Yes: WNL Neurological: Yes: Alert, Oriented Labs: CBC, BMP 03/18/18 09:21 03/18/18 09:21 Problem List - Problems (1) Controlled diabetes mellitus type 2 with complications Code(s): E11.8 - TYPE 2 DIABETES MELLITUS WITH UNSPECIFIED COMPLICATIONS (2) Controlled diabetes mellitus with nephropathy Code(s): E11.21 - TYPE 2 DIABETES MELLITUS WITH DIABETIC NEPHROPATHY (3) HCAP (healthcare-associated pneumonia) Code(s): J18.9 - PNEUMONIA, UNSPECIFIED ORGANISM (4) PNA (pneumonia) Code(s): J18.9 - PNEUMONIA, UNSPECIFIED ORGANISM (5) Sepsis Code(s): A41.9 - SEPSIS, UNSPECIFIED ORGANISM (6) CHUCK (acute kidney injury) Code(s): N17.9 - ACUTE KIDNEY FAILURE, UNSPECIFIED (7) Bradycardia Code(s): R00.1 - BRADYCARDIA, UNSPECIFIED (8) C. difficile colitis Code(s): A04.72 - ENTEROCOLITIS D/T CLOSTRIDIUM DIFFICILE, NOT SPCF RECUR (9) Type 2 diabetes mellitus with other circulatory complications Code(s): E11.59 - TYPE 2 DIABETES MELLITUS WITH OTH CIRCULATORY COMPLICATIONS Assessment/Plan Current Active Problems Controlled diabetes mellitus type 2 with complications (Acute) Controlled diabetes mellitus with nephropathy (Acute) HCAP (healthcare-associated pneumonia) (Acute) PNA (pneumonia) (Acute) Sepsis (Acute) Abnormal Lab Results 03/17/18 03/18/18 03/18/18 21:34 09:21 09:21 WBC 10.3 H D RBC 3.79 L Hgb 11.2 L D Hct 33.3 L Anion Gap 6 L BUN 35 H Creatinine 1.4 H Random Glucose 204 H D Calcium 8.0 L Urine Glucose (UA) 1+ H steroid dependent adrenal deficiency/hypotension Laboratory Results - last 24 hr 03/17/18 03/18/18 03/18/18 21:34 05:36 09:21 WBC 10.3 H D RBC 3.79 L Hgb 11.2 L D Hct 33.3 L MCV 87.9 MCH 29.6 MCHC 33.7 RDW 15.9 Plt Count 185 MPV 8.3 Neutrophils % 71.6 Lymphocytes % 20.1 D Monocytes % 6.5 Eosinophils % 0.8 D Basophils % 1.0 Sodium Potassium Chloride Carbon Dioxide Anion Gap BUN Creatinine POC Glucometer 178 Random Glucose Calcium Urine Color Ltyellow Urine Appearance Clear Urine pH 5.0 Ur Specific [place] 1.013 Urine Protein Negative Urine Glucose (UA) 1+ H Urine Ketones Negative Urine Blood Negative Urine Nitrite Negative Urine Bilirubin Negative Urine Urobilinogen Negative Ur Leukocyte Esterase Negative 03/18/18 03/18/18 03/18/18 09:21 12:05 17:20 WBC RBC Hgb Hct MCV MCH MCHC RDW Plt Count MPV Neutrophils % Lymphocytes % Monocytes % Eosinophils % Basophils % Sodium 138 Potassium 4.4 Chloride 104 Carbon Dioxide 28 Anion Gap 6 L BUN 35 H Creatinine 1.4 H POC Glucometer 333 295 Random Glucose 204 H D Calcium 8.0 L Urine Color Urine Appearance Urine pH Ur Specific [place] Urine Protein Urine Glucose (UA) Urine Ketones Urine Blood Urine Nitrite Urine Bilirubin Urine Urobilinogen Ur Leukocyte Esterase plan; ck cortisol level stat solucortef stress doses iv 100mg tid bgm qid novolog scale levemir 40 units am levemir 15 units his
[2018-03-18] MEDS ORDERED: INSULIN (LEVEMIR) 100 UNITS/ML UNITS SQ ONE (22:00)
[2018-03-18] MEDS: hydrALAZINE HCL 25 MG TABLET (FP) PO SCH (23:25)
[2018-03-18] MEDS: ATORVASTATIN CA 10 MG TABLET (FP) PO SCH (23:25)
[2018-03-18] MEDS: INSULIN (LEVEMIR) 100 UNITS/ML UNITS SQ SCH (23:25)
[2018-03-19] MEDS ORDERED: DEXTROSE 5%-WATER - 50 ML IVPB ONE ×3 (03:01→16:49)
[2018-03-19] MEDS ORDERED: PIPERACILLIN/TAZOBACTAM 3.375 GM VIAL IVPB ONE ×3 (03:01→16:49)
[2018-03-19] MEDS: PIPERACILLIN/TAZOB 3.375 GM 3.375 GM in DEXTROSE 5%-WATER - 50 ML IVPB SCH ×3 (03:06→17:51)
[2018-03-19] MEDS: HYDROCORTISONE SOD SUCCINATE 100 MG/2 ML VIAL IVPB SCH ×2 (04:18→12:33)
[2018-03-19] MEDS: INSULIN SLIDING SCALE (NOVOLOG) 1 VIAL SQ SCH ×4 (06:31→23:23)
[2018-03-19] MEDS: INSULIN (LEVEMIR) 100 UNITS/ML UNITS SQ SCH ×2 (06:32→23:24)
[2018-03-19] MEDS ORDERED: INSULIN (LEVEMIR) 100 UNITS/ML UNITS SQ SCH (07:00)
[2018-03-19] MEDS: ALBUTEROL SO4 2.5/IPRATROPIUM 0.5 INH SOL 3 ML VIAL.NEB. NEB SCH ×4 (07:23→20:25)
[2018-03-19] MEDS: TAMSULOSIN HCL 0.4 MG CAP.ER.24H (FP) PO SCH (08:12)
--- NOTE | 2018-03-19 08:41 | PN ---
Progress Note, Physician Chief Complaint: ID MUCh better today Zosyn day 2 antibiotics - Current Medication List Current Medications: Active Medications Albuterol/Ipratropium (Duoneb -) 1 amp NEB RQID [facility] Last Admin: 03/19/18 07:23 Dose: 1 amp Amlodipine Besylate (Norvasc -) 5 mg PO DAILY [facility] Aspirin (Asa -) 81 mg PO [facility] Last Admin: 03/18/18 21:06 Dose: 81 mg Atorvastatin Calcium (Lipitor -) 10 mg PO HS [facility] Last Admin: 03/18/18 23:25 Dose: 10 mg Docusate Sodium (Colace -) 100 mg PO Q12H PRN PRN Reason: CONSTIPATION Duloxetine HCl (Cymbalta -) 20 mg PO BID [facility] Last Admin: 03/18/18 21:07 Dose: 20 mg Heparin Sodium (Porcine) (Heparin -) 5,000 unit SQ BID [facility] Last Admin: 03/18/18 21:07 Dose: 5,000 unit Hydralazine HCl (Apresoline -) 25 mg PO BID [facility] Last Admin: 03/18/18 23:25 Dose: 25 mg Hydrocortisone Sodium Succinate (Solu-Cortef -) 100 mg IVPB Q8H [facility] Last Admin: 03/19/18 04:18 Dose: 100 mg Piperacillin Sod/Tazobactam (Sod 3.375 gm/ Dextrose) 50 mls @ 100 mls/hr IVPB Q8H-IV [facility] PRN Reason: Protocol Last Admin: 03/19/18 03:06 Dose: 100 mls/hr Insulin Aspart (Novolog Vial Sliding Scale -) 1 vial SQ ACHS [facility] PRN Reason: Protocol Last Admin: 03/19/18 06:31 Dose: 9 unit Insulin Detemir (Levemir Vial) 15 units SQ HS [facility] Last Admin: 03/18/18 23:25 Dose: Not Given Insulin Detemir (Levemir Vial) 40 units SQ AM [facility] Last Admin: 03/19/18 06:32 Dose: 40 unit Mycophenolate Sodium (Mycophenolic Acid) 360 mg PO BID [facility] Last Admin: 03/18/18 21:07 Dose: 360 mg Tacrolimus (Prograf) 1 mg PO BID [facility] Last Admin: 03/18/18 21:07 Dose: 1 mg Tamsulosin HCl (Flomax -) 0.4 mg PO 0830 [facility] Last Admin: 03/19/18 08:12 Dose: 0.4 mg - Objective Vital Signs: Vital Signs Temperature 98.1 F 03/19/18 05:24 Pulse Rate 65 03/19/18 05:24 Respiratory Rate 20 03/19/18 05:24 Blood Pressure 145/43 03/19/18 05:24 O2 Sat by Pulse Oximetry (%) 95 03/18/18 21:00 Constitutional: Yes: Well Nourished, No Distress Eyes: Yes: WNL, Conjunctiva Clear HENT: Yes: WNL, Atraumatic Neck: Yes: WNL, Supple Cardiovascular: Yes: Regular Rate and Rhythm, S1, S2 Respiratory: Yes: WNL, Regular, CTA Bilaterally Gastrointestinal: Yes: Normal Bowel Sounds, Soft. No: Tenderness, Epigastrium, Other Labs: CBC, BMP 03/18/18 09:21 03/18/18 09:21 INR, PTT INR 0.98 (0.82-1.09) 03/17/18 16:27 Problem List - Problems (1) PNA (pneumonia) Code(s): J18.9 - PNEUMONIA, UNSPECIFIED ORGANISM (2) History of MRSA infection Code(s): Z86.14 - PERSONAL HISTORY OF METHICILLIN RESIS STAPH INFECTION (3) Renal transplant disorder Code(s): T86.10 - UNSPECIFIED COMPLICATION OF KIDNEY TRANSPLANT Assessment/Plan Microbiology 03/17/18 16:03 Blood - Peripheral Venous Blood Culture - Preliminary NO GROWTH OBTAINED AFTER 24 HOURS, INCUBATION TO CONTINUE FOR 4 DAYS. 03/17/18 16:03 Blood - Peripheral Venous Blood Culture - Preliminary NO GROWTH OBTAINED AFTER 24 HOURS, INCUBATION TO CONTINUE FOR 4 DAYS. Laboratory Tests 03/17/18 03/18/18 03/18/18 15:50 09:21 09:21 WBC 18.1 H D 10.3 H D Hgb 11.2 L D Hct 33.3 L Plt Count 185 BUN 35 H Creatinine 1.4 H Assessment Pneumonia better today Plan Can be discharge possibly tomorrow but would get swallowing evaluation ? of aspiration raised by nursing Erika SILVA
[2018-03-19] MEDS ORDERED: hydrALAZINE HCL 25 MG TABLET (FP) PO SCH (10:00)
[2018-03-19] MEDS: DULoxetine HCL 20 MG CAPSULE.DR (FP) PO SCH ×2 (10:43→23:20)
[2018-03-19] MEDS: HEPARIN NA (PORCINE) 5,000 UNITS/ML 1ML VIAL SQ SCH ×2 (10:43→23:19)
[2018-03-19] MEDS: MYCOPHENOLATE SODIUM 360 MG TABLET.DR PO SCH ×2 (10:43→23:20)
[2018-03-19] MEDS: TACROLIMUS ANHYDROUS 1 MG CAPSULE PO SCH ×2 (10:44→23:21)
[2018-03-19] MEDS: hydrALAZINE HCL 25 MG TABLET (FP) PO SCH ×2 (10:46→23:19)
[2018-03-19] MEDS: amLODIPine BESYLATE 5 MG TABLET (FP) PO SCH (10:46)
[2018-03-19] MEDS ORDERED: INSULIN (NOVOLOG) ASPART 100 UNITS/ML 10ML VIAL ONE (11:45)
--- NOTE | 2018-03-19 23:16 | CON.ENT ---
Consult Consult Specialty:: ENT Reason for Consultation:: Hoarse voice and choking on water - History of Present Illness Chief Complaint: Some throat discomfort and voice is hoarse. History of Present Illness: 78 year old male with history of hypertension, IDDM, PAD, CAD s/p [place] s/p CABG, s /p renal transplant on immunosuppressants, brought to the ED for complaints of right sided abdominal pain with nausea, vomiting, and subjective fever for 1 day. Per family at bedside, the patient seemed more confused and weak appearing yesterday and skipped meals and slept most of the day,woke up weak lethargic with nausea,vomiting and chills with elevated blood sugars despite not eating. He was previously intubated and self extubated on last hospital admission. Since then he is hoarse and occ coughs when drinking water. He had previous [employer]EL[employer] eval and MBS in past showing some silent aspiration. - History Source History Provided By: Patient, Medical Record Limitations to Obtaining History: No Limitations - Past Medical History Cardio/Vascular: Yes: CAD (CABG), HTN, [place], Other (PAD, heel osteo in 04/05) Renal/: Yes: Other (S/P Kidney tranplant 2008. 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) Endocrine: Yes: Diabetes Mellitus - Past Surgical History Past Surgical History: Yes: AV Fistula/Graft (right upper arm, non working), CABG, Kidney Transplant (right 2008) - Alcohol/Substance Use Hx Alcohol Use: No History of Substance Use: reports: None - Smoking History Smoking history: Never smoked Have you smoked in the past 12 months: No Aproximately how many cigarettes per day: 0 - Social History Usual Living Arrangement: Alone ADL: Support Services History of Recent Travel: No Home Medications - Allergies Allergies/Adverse Reactions: Allergies Allergy/AdvReac Type Severity Reaction Status Date / Time No Known Drug Allergies Allergy Verified 03/17/18 18:58 - Home Medications Home Medications: Ambulatory Orders Amlodipine Besylate [Norvasc -] 10 mg PO DAILY 05/17/17 Aspirin [Jena Chewable Aspirin] 81 mg PO HS 05/17/17 Atorvastatin Ca [Lipitor] 10 mg PO HS 05/17/17 Carvedilol [Coreg -] 25 mg PO BID 05/17/17 Duloxetine HCl [Cymbalta] 20 mg PO BID 05/17/17 Tamsulosin HCl [Flomax] 0.4 mg PO HS 05/17/17 predniSONE [Deltasone -] 5 mg PO DAILY 05/17/17 Acetaminophen [Tylenol .Regular Strength -] 650 mg PO Q4H PRN tablet 11/29/17 Tacrolimus 1 mg PO BID 11/29/17 Insulin (Levemir) [Levemir Vial] 8 units SQ HS ml 12/05/17 Insulin (Levemir) [Levemir Vial] 25 units SQ AM #0 ml 12/05/17 Docusate Sodium [Colace -] 100 mg PO BID PRN capsule 01/23/18 Insulin (Levemir) [Levemir Vial] 5 units SQ HS ml 01/23/18 Insulin (Levemir) [Levemir Vial] 26 units SQ DAILY@0900 ml 01/23/18 Insulin Sliding Scale [Novolog Vial Sliding Scale -] 1 vial SQ ACHS units 01/23 Mycophenolate Sodium [Mycophenolic Acid] 360 mg PO BID tablet. 01/23/18 hydrALAZINE HCL [Apresoline -] 25 mg PO BID tablet 01/23/18 Albuterol 2.5/Ipratropium 0.5 [Duoneb -] 1 amp NEB QID 02/08/18 Insulin Sliding Scale [Novolog Vial Sliding Scale -] 1 vial SQ ACHS units 02/15 Vancomycin Oral Solution 125 mg PO Q6HPO 14 Days ml 02/15/18 Physical Exam-ENT Vital Signs: Vital Signs Temperature 98.4 F 03/19/18 16:55 Pulse Rate 85 03/19/18 16:55 Respiratory Rate 24 03/19/18 16:55 Blood Pressure 144/46 03/19/18 16:55 O2 Sat by Pulse Oximetry (%) 95 03/19/18 09:00 Constitutional: Yes: Well Nourished, No Distress Head: Yes: WNL Face: Yes: WNL Eyes: Yes: WNL Nose: Yes: WNL Nasal Passage: Yes: WNL Oral/Pharynx: Yes: WNL Outer Ear: Yes: WNL Ear Canal: Yes: WNL Neck: Yes: WNL Problem List - Problems (1) Hoarseness Assessment/Plan: 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 Suggest LPR meds and GERD diet and reexam of larynx as outpatient in 1-2 weeks. Code(s): R49.0 - DYSPHONIA Procedure - Procedure and Findings -: Fiberoptic laryngoscopy , with topical lido/afrin spray. No masses or lesions. The arytenoids are erythematous and the right vocal cord does not move as well as the left side. 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 He should have a reexamination as an outpatient in 1-2 weeks.
[2018-03-19] MEDS: ATORVASTATIN CA 10 MG TABLET (FP) PO SCH (23:18)
[2018-03-19] MEDS: ASPIRIN 81 MG CHEWABLE TABLETS PO SCH (23:19)
--- NOTE | 2018-03-19 23:47 | PN ---
Progress Note, Physician Chief Complaint: raspy voice difficulty swallowing food since last self extubation episode History of Present Illness: diabetes mellitus hyperglycemia,cough,with difficulty swallowing food especially liquids - Current Medication List Current Medications: Active Medications Albuterol/Ipratropium (Duoneb -) 1 amp NEB RQID [facility] Last Admin: 03/19/18 20:25 Dose: 1 amp Amlodipine Besylate (Norvasc -) 5 mg PO DAILY [facility] Last Admin: 03/19/18 10:46 Dose: Not Given Aspirin (Asa -) 81 mg PO HS [facility] Last Admin: 03/19/18 23:19 Dose: 81 mg Atorvastatin Calcium (Lipitor -) 10 mg PO HS [facility] Last Admin: 03/19/18 23:18 Dose: 10 mg Docusate Sodium (Colace -) 100 mg PO Q12H PRN PRN Reason: CONSTIPATION Duloxetine HCl (Cymbalta -) 20 mg PO BID [facility] Last Admin: 03/19/18 23:20 Dose: 20 mg Heparin Sodium (Porcine) (Heparin -) 5,000 unit SQ BID [facility] Last Admin: 03/19/18 23:19 Dose: 5,000 unit Hydralazine HCl (Apresoline -) 25 mg PO BID [facility] Last Admin: 03/19/18 23:19 Dose: 25 mg Piperacillin Sod/Tazobactam (Sod 3.375 gm/ Dextrose) 50 mls @ 100 mls/hr IVPB Q8H-IV [facility] PRN Reason: Protocol Last Admin: 03/19/18 17:51 Dose: 100 mls/hr Insulin Aspart (Novolog Vial Sliding Scale -) 1 vial SQ ACHS [facility] PRN Reason: Protocol Last Admin: 03/19/18 23:23 Dose: 10 unit Insulin Detemir (Levemir Vial) 15 units SQ HS [facility] Last Admin: 03/19/18 23:24 Dose: 15 units Insulin Detemir (Levemir Vial) 40 units SQ AM [facility] Last Admin: 03/19/18 06:32 Dose: 40 unit Mycophenolate Sodium (Mycophenolic Acid) 360 mg PO BID [facility] Last Admin: 03/19/18 23:20 Dose: 360 mg Prednisone (Deltasone -) 20 mg PO DAILY [facility] Tacrolimus (Prograf) 1 mg PO BID [facility] Last Admin: 03/19/18 23:21 Dose: 1 mg Tamsulosin HCl (Flomax -) 0.4 mg PO 0830 [facility] Last Admin: 03/19/18 08:12 Dose: 0.4 mg - Objective Vital Signs: Vital Signs Temperature 97.6 F 03/19/18 22:00 Pulse Rate 65 03/19/18 22:00 Respiratory Rate 20 03/19/18 22:00 Blood Pressure 142/56 03/19/18 22:00 O2 Sat by Pulse Oximetry (%) 96 03/19/18 21:00 Constitutional: Yes: Calm Eyes: Yes: EOM Intact HENT: Yes: Normocephalic Neck: Yes: Trachea Midline Cardiovascular: Yes: Regular Rate and Rhythm Respiratory: Yes: CTA Bilaterally Gastrointestinal: Yes: Normal Bowel Sounds ...Rectal Exam: Yes: Deferred Genitourinary: Yes: WNL Breast(s): Yes: WNL Musculoskeletal: Yes: WNL, Muscle Weakness Extremities: Yes: WNL Neurological: Yes: Alert, Oriented Labs: CBC, BMP 03/18/18 09:21 03/18/18 09:21 INR, PTT INR 0.98 (0.82-1.09) 03/17/18 16:27 Problem List - Problems (1) Controlled diabetes mellitus type 2 with complications Code(s): E11.8 - TYPE 2 DIABETES MELLITUS WITH UNSPECIFIED COMPLICATIONS (2) Controlled diabetes mellitus with nephropathy Code(s): E11.21 - TYPE 2 DIABETES MELLITUS WITH DIABETIC NEPHROPATHY (3) HCAP (healthcare-associated pneumonia) Code(s): J18.9 - PNEUMONIA, UNSPECIFIED ORGANISM (4) PNA (pneumonia) Code(s): J18.9 - PNEUMONIA, UNSPECIFIED ORGANISM (5) Sepsis Code(s): A41.9 - SEPSIS, UNSPECIFIED ORGANISM (6) CHUCK (acute kidney injury) Code(s): N17.9 - ACUTE KIDNEY FAILURE, UNSPECIFIED (7) Bradycardia Code(s): R00.1 - BRADYCARDIA, UNSPECIFIED (8) C. difficile colitis Code(s): A04.72 - ENTEROCOLITIS D/T CLOSTRIDIUM DIFFICILE, NOT SPCF RECUR (9) Type 2 diabetes mellitus with other circulatory complications Code(s): E11.59 - TYPE 2 DIABETES MELLITUS WITH OTH CIRCULATORY COMPLICATIONS Assessment/Plan Current Active Problems Controlled diabetes mellitus type 2 with complications (Acute) Controlled diabetes mellitus with nephropathy (Acute) HCAP (healthcare-associated pneumonia) (Acute) Hoarseness (Acute) PNA (pneumonia) (Acute) Sepsis (Acute) diabetes mellitus hypothyroidism adrenal deficiency Laboratory Results - last 24 hr 03/18/18 03/18/18 03/19/18 09:21 21:04 06:30 POC Glucometer 422 305 Cortisol AM Sample 9.2 03/19/18 17:12 POC Glucometer 284 Cortisol AM Sample Laboratory Results - last 24 hr 03/18/18 03/18/18 03/19/18 09:21 21:04 06:30 POC Glucometer 422 305 Cortisol AM Sample 9.2 03/19/18 17:12 POC Glucometer 284 Cortisol AM Sample plan: levemir 40 units am dc iv solucortef resume prednisone 20mg dose ent eval noted and appreciated recheck tsh free t4
[2018-03-20] MEDS ORDERED: DEXTROSE 5%-WATER - 50 ML IVPB ONE ×2 (00:55→09:42)
[2018-03-20] MEDS ORDERED: PIPERACILLIN/TAZOBACTAM 3.375 GM VIAL IVPB ONE ×2 (00:55→09:42)
[2018-03-20] MEDS: PIPERACILLIN/TAZOB 3.375 GM 3.375 GM in DEXTROSE 5%-WATER - 50 ML IVPB SCH ×2 (01:08→10:34)
[2018-03-20] MEDS: INSULIN SLIDING SCALE (NOVOLOG) 1 VIAL SQ SCH ×4 (06:23→22:26)
[2018-03-20] MEDS: INSULIN (LEVEMIR) 100 UNITS/ML UNITS SQ SCH ×3 (06:23→22:29)
[2018-03-20] MEDS: ALBUTEROL SO4 2.5/IPRATROPIUM 0.5 INH SOL 3 ML VIAL.NEB. NEB SCH ×4 (07:17→19:49)
[2018-03-20] MEDS: TAMSULOSIN HCL 0.4 MG CAP.ER.24H (FP) PO SCH (09:30)
[2018-03-20] MEDS: HEPARIN NA (PORCINE) 5,000 UNITS/ML 1ML VIAL SQ SCH ×2 (10:34→22:23)
[2018-03-20] MEDS: hydrALAZINE HCL 25 MG TABLET (FP) PO SCH ×2 (10:36→22:22)
[2018-03-20] MEDS: predniSONE 20 MG TABLET (UD) PO SCH (10:36)
[2018-03-20] MEDS: amLODIPine BESYLATE 5 MG TABLET (FP) PO SCH (10:36)
[2018-03-20] MEDS: TACROLIMUS ANHYDROUS 1 MG CAPSULE PO SCH ×2 (10:37→22:24)
[2018-03-20] MEDS: DULoxetine HCL 20 MG CAPSULE.DR (FP) PO SCH ×2 (10:38→22:23)
[2018-03-20] MEDS: MYCOPHENOLATE SODIUM 360 MG TABLET.DR PO SCH ×2 (10:38→22:24)
[2018-03-20] MEDS ORDERED: INSULIN (NOVOLOG) ASPART 100 UNITS/ML 10ML VIAL ONE ×2 (10:53→17:22)
--- NOTE | 2018-03-20 13:26 | PN ---
Progress Note, Physician Chief Complaint: patient seen and examined awake alert awaiting swallow evaluation on po meds appreicate ENT consult partial right vocal cord paresis - Current Medication List Current Medications: Active Medications Albuterol/Ipratropium (Duoneb -) 1 amp NEB RQID [facility] Last Admin: 03/20/18 11:17 Dose: 1 amp Amlodipine Besylate (Norvasc -) 5 mg PO DAILY [facility] Last Admin: 03/20/18 10:36 Dose: 5 mg Amoxicillin/Clavulanate Potassium (Augmentin - 500mg Tablet) 1 tab PO BID@0800, 1730 [facility] Aspirin (Asa -) 81 mg PO HS [facility] Last Admin: 03/19/18 23:19 Dose: 81 mg Atorvastatin Calcium (Lipitor -) 10 mg PO HS [facility] Last Admin: 03/19/18 23:18 Dose: 10 mg Docusate Sodium (Colace -) 100 mg PO Q12H PRN PRN Reason: CONSTIPATION Duloxetine HCl (Cymbalta -) 20 mg PO BID [facility] Last Admin: 03/20/18 10:38 Dose: 20 mg Heparin Sodium (Porcine) (Heparin -) 5,000 unit SQ BID [facility] Last Admin: 03/20/18 10:34 Dose: 5,000 unit Hydralazine HCl (Apresoline -) 25 mg PO BID [facility] Last Admin: 03/20/18 10:36 Dose: 25 mg Insulin Aspart (Novolog Vial Sliding Scale -) 1 vial SQ [facility] PRN Reason: Protocol Last Admin: 03/20/18 11:44 Dose: 7 unit Insulin Detemir (Levemir Vial) 15 units SQ HS [facility] Last Admin: 03/19/18 23:24 Dose: 15 units Insulin Detemir (Levemir Vial) 40 units SQ AM [facility] Last Admin: 03/20/18 08:15 Dose: 40 unit Mycophenolate Sodium (Mycophenolic Acid) 360 mg PO BID [facility] Last Admin: 03/20/18 10:38 Dose: 360 mg Prednisone (Deltasone -) 20 mg PO DAILY [facility] Last Admin: 03/20/18 10:36 Dose: 20 mg Tacrolimus (Prograf) 1 mg PO BID [facility] Last Admin: 03/20/18 10:37 Dose: 1 mg Tamsulosin HCl (Flomax -) 0.4 mg PO 0830 [facility] Last Admin: 03/20/18 09:30 Dose: 0.4 mg - Objective Vital Signs: Vital Signs Temperature 98.5 F 03/20/18 13:18 Pulse Rate 75 03/20/18 13:18 Respiratory Rate 18 03/20/18 13:18 Blood Pressure 128/41 03/20/18 13:18 O2 Sat by Pulse Oximetry (%) 96 03/19/18 21:00 Constitutional: Yes: Calm Neck: Yes: Trachea Midline Cardiovascular: Yes: Regular Rate and Rhythm, Murmur, S1, S2 Respiratory: Yes: CTA Bilaterally Gastrointestinal: Yes: Normal Bowel Sounds, Soft Edema: No Neurological: Yes: Alert, Oriented Labs: CBC, BMP 03/18/18 09:21 03/18/18 09:21 INR, PTT INR 0.98 (0.82-1.09) 03/17/18 16:27 Problem List - Problems (1) PNA (pneumonia) Assessment/Plan: leidy cowan ENT saw patient augmentin Code(s): J18.9 - PNEUMONIA, UNSPECIFIED ORGANISM (2) Renal transplant disorder Assessment/Plan: mycophenolate and prednisone Code(s): T86.10 - UNSPECIFIED COMPLICATION OF KIDNEY TRANSPLANT (3) Uncontrolled diabetes mellitus Assessment/Plan: seen by endocrine uncontrolled DM hgba1c 10.5 levemir am dose increased to 40units on 15 units HS Code(s): E11.65 - TYPE 2 DIABETES MELLITUS WITH HYPERGLYCEMIA Qualifiers: Diabetes mellitus type: type 2 (4) Hx of CABG Assessment/Plan: asa and statin Code(s): Z95.1 - PRESENCE OF AORTOCORONARY BYPASS GRAFT
--- NOTE | 2018-03-20 13:41 | CONSULT ---
Admitting History and Physical - Primary Care Physician PCP: [facility] - Admission History of Present Illness: Per ENT: Fiberoptic laryngoscopy , with topical lido/afrin spray. No masses or lesions. The arytenoids are erythematous and the right vocal cord does not move as well as the left side. 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 He should have a reexamination as an outpatient in 1-2 weeks. Per ID Renal transplant pt basilar infiltrates and PNA History of MRSA skin osteo finger Nursing reported that pt was "coughing on liquids." On thickened liquids. MBS 02/14/18 Aspiration intermittently on thick and thin liquid, with impulsive intake with head extended. REC: Puree/nectar/sw tx at [facility]/ trial of free water protocol. Pt d/c'd home, where pt reports he ate everything. He reports doing well with reg diet but choked on liquids. Pt noted to cough at bedside without PO intake, which I suspect is on saliva, sec to 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 History Source: Patient, Medical Record - Past Medical History Cardiovascular: Yes: CAD (CABG), HTN, [place], Other (PAD, heel osteo in 04/05) Renal/: Yes: Other (S/P Kidney tranplant 2008. 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) Endocrine: Yes: Diabetes Mellitus - Past Surgical History Past Surgical History: Yes: AV Fistula/Graft (right upper arm, non working), CABG, Kidney Transplant (right 2008) - Smoking History Smoking history: Never smoked Have you smoked in the past 12 months: No Aproximately how many cigarettes per day: 0 - Alcohol/Substance Use Hx Alcohol Use: No History of Substance Use: reports: None - Social History ADL: Support Services History of Recent Travel: No History - Admission Reason For Visit: SEPSIS - Diagnostics X-ray: Report Reviewed CT Scan: Report Reviewed - General Mental Status: Alert and Oriented, Awake and Alert, Able to Follow Commands, Intermittently Confused (per nursing) Attention: Intact Ability to Follow Directions: Excellent Head/Neck Control: WFL - Hearing Hearing: Normal With Patient: No Speech Evaluation - Communication Primary Language: LATVIAN Communication: Yes: Within Normal Limits - Speech Production Able to Make Needs Known: Yes: WNL Intelligibility: Yes: WNL - Speech Characteristics Voice Loudness: Normal Voice Pitch: Yes: Normal Voice Phonatory-based Quality: Yes: Dysphonia (mild) Speech Clarity: < 100% Nasal Resonance: Normal Articulation: Yes: Precise - Language/Auditory Comprehension Observation: Comprehends Conversational Speech: Yes - Language/Verbal Expression Able to Respond to Simple Queries: Yes: WNL Able to Communicate Wants and Needs: Yes: WNL Functional Communication Status: Yes: WNL - Swallow Evaluation/Bedside Assessment Current Nutritional Intake: Regular, [place] Textured Liquids Oral Secretions: Yes: WFL (coughs on saliva) Dentition: Yes: Adequate Facial Symmetry at Rest: Symmetrical Facial Symmetry on Retraction: Symmetrical Against Resistance Opening: Normal Against Resistance Closing: Normal Pucker Lips: Normal Smile: Normal Lingual Movement: Normal, Symmetric Lingual Speed of Movement: Normal Lingual Movement Strgth Against Opposition: Normal Lingual Movement Characteristics: Normal Laryngeal Movement: Able to Palpate Rate of Intake: Impulsive Bolus Size: WFL Labial Seal: WFL Oral Prep Time: WFL A-P Transit: WFL Coughing/Throat Clear: Yes (intermittent) Recommendations - Speech Evaluation, Impression/Plan Impression: 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 Swallowing seems improved as compared to last session. Suspect intermittent aspiration. - Dysphagia Impressions/Plan Dysphagia Impressions: Ongoing Evaluation *Silent aspiration: cannot be R/O at bedside Dysphagia Treatment Plan: Small Bites, Chin Tuck/Down, Safe Rate, 1/2 tsp. at a time, Elevate HOB during feed, OOB for meals, OOB for 1 h. after meals Recommendations: Modified Barium Swallow - Recommendations Medication Administration: Crushed with applesauce Liquids: [place] Thick (single sips, chin tuck, no straws or continuous drinking)
--- NOTE | 2018-03-20 14:17 | CON.CARD ---
Consult Consult Specialty:: Cardiology Reason for Consultation:: Dyspnea - History of Present Illness History of Present Illness: 78 year old male with hypertension, IDDM, PAD, CAD s/p TN s/p PCI and CABG, s/p renal transplant admitted with complaints of right sided abdominal pain with nausea, vomiting, and subjective fever for [address] of abdomen suggesting pneumonia. Denies chest pain, palpitations, edema or syncope. - History Source History Provided By: Patient, Medical Record - Past Medical History Cardio/Vascular: Yes: CAD (CABG), HTN, TN, Other (PAD, heel osteo in 04/05) Renal/: Yes: Other (S/P Kidney tranplant 2008. 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) Endocrine: Yes: Diabetes Mellitus - Past Surgical History Past Surgical History: Yes: AV Fistula/Graft (right upper arm, non working), CABG, Kidney Transplant (right 2008) - Alcohol/Substance Use Hx Alcohol Use: No History of Substance Use: reports: None - Smoking History Smoking history: Never smoked Have you smoked in the past 12 months: No Aproximately how many cigarettes per day: 0 - Social History Usual Living Arrangement: Alone ADL: Support Services History of Recent Travel: No Home Medications - Allergies Allergies/Adverse Reactions: Allergies Allergy/AdvReac Type Severity Reaction Status Date / Time No Known Drug Allergies Allergy Verified 03/17/18 18:58 - Home Medications Home Medications: Ambulatory Orders Amlodipine Besylate [Norvasc -] 10 mg PO DAILY 05/17/17 Aspirin [Jena Chewable Aspirin] 81 mg PO HS 05/17/17 Atorvastatin Ca [Lipitor] 10 mg PO HS 05/17/17 Carvedilol [Coreg -] 25 mg PO BID 05/17/17 Duloxetine HCl [Cymbalta] 20 mg PO BID 05/17/17 Tamsulosin HCl [Flomax] 0.4 mg PO HS 05/17/17 predniSONE [Deltasone -] 5 mg PO DAILY 05/17/17 Acetaminophen [Tylenol .Regular Strength -] 650 mg PO Q4H PRN tablet 11/29/17 Tacrolimus 1 mg PO BID 11/29/17 Insulin (Levemir) [Levemir Vial] 8 units SQ HS ml 12/05/17 Insulin (Levemir) [Levemir Vial] 25 units SQ AM #0 ml 12/05/17 Docusate Sodium [Colace -] 100 mg PO BID PRN capsule 01/23/18 Insulin (Levemir) [Levemir Vial] 5 units SQ HS ml 01/23/18 Insulin (Levemir) [Levemir Vial] 26 units SQ DAILY@0900 ml 01/23/18 Insulin Sliding Scale [Novolog Vial Sliding Scale -] 1 vial SQ ACHS units 01/23 Mycophenolate Sodium [Mycophenolic Acid] 360 mg PO BID tablet. 01/23/18 hydrALAZINE HCL [Apresoline -] 25 mg PO BID tablet 01/23/18 Albuterol 2.5/Ipratropium 0.5 [Duoneb -] 1 amp NEB QID 02/08/18 Insulin Sliding Scale [Novolog Vial Sliding Scale -] 1 vial SQ ACHS units 02/15 Vancomycin Oral Solution 125 mg PO Q6HPO 14 Days ml 02/15/18 Review of Systems - Review of Systems Constitutional: reports: Chills, Fever Eyes: reports: No Symptoms HENT: reports: Throat Pain Cardiovascular: reports: No Symptoms. denies: Chest Pain, Edema, Palpitations Respiratory: reports: Cough, SOB Gastrointestinal: reports: No Symptoms Genitourinary: reports: No Symptoms Vital Signs: Vital Signs Temperature 98.5 F 03/20/18 13:18 Pulse Rate 75 03/20/18 13:18 Respiratory Rate 18 03/20/18 13:18 Blood Pressure 128/41 03/20/18 13:18 O2 Sat by Pulse Oximetry (%) 96 03/19/18 21:00 Constitutional: Yes: Well Nourished, No Distress Eyes: Yes: WNL, Conjunctiva Clear HENT: Yes: Atraumatic, Normocephalic Neck: Yes: Supple, Trachea Midline Respiratory: Yes: Cough, Rhonchi. No: Orthopnea, Rales Gastrointestinal: Yes: Normal Bowel Sounds, Soft Cardiovascular: Yes: Regular Rate and Rhythm. No: Gallop, Rub JVD: No Carotid Bruit: No PMI: Non-Displaced Heart Sounds: Yes: S1, S2 Murmur: No: Systolic Murmur, Diastolic Murmur Extremities: Yes: WNL Edema: No - Other Data Labs, Other Data: CBC, BMP 03/18/18 09:21 03/18/18 09:21 INR, PTT INR 0.98 (0.82-1.09) 03/17/18 16:27 NSR RBBB LAHB Echo: Report Reviewed (01/2018 Normal biventricular function without valvular pathology.) Ejection Fraction %: LVEF > or = 40 % Imaging - Results Chest X-ray: Report Reviewed X-ray: Report Reviewed Cat Scan: Report Reviewed EKG: Image Reviewed Problem List - Problems (1) Controlled diabetes mellitus type 2 with complications Code(s): E11.8 - TYPE 2 DIABETES MELLITUS WITH UNSPECIFIED COMPLICATIONS (2) HCAP (healthcare-associated pneumonia) Code(s): J18.9 - PNEUMONIA, UNSPECIFIED ORGANISM (3) Sepsis Code(s): A41.9 - SEPSIS, UNSPECIFIED ORGANISM (4) Hx of CABG Code(s): Z95.1 - PRESENCE OF AORTOCORONARY BYPASS GRAFT Assessment/Plan 78 yo M with DM, HTN , PVD, CAD post PCI and CABG with normal LV function, RBBB , LAHB, renal transplant. Admitted with abdominal discmfort and PNA. ECG shows unchanged bifassicular block without dynamic Changes. BP controlled.No signs of heart failure. COntinue management for PNA/infection.
[2018-03-20] MEDS: RANITIDINE HCL 150 MG TABLET (FP) PO SCH (14:30)
[2018-03-20] MEDS: AMOX TR/POT CLAV 500MG/125MG TABLETS (FP) PO SCH (17:07)
[2018-03-20] MEDS: ASPIRIN 81 MG CHEWABLE TABLETS PO SCH (22:23)
[2018-03-20] MEDS: ATORVASTATIN CA 10 MG TABLET (FP) PO SCH (22:24)
--- NOTE | 2018-03-20 23:16 | PN ---
Progress Note, Physician Chief Complaint: cough when eating,despite reminders to eat slowly and swallow using straw History of Present Illness: diabetes mellitus hyperglycemia,cough,with difficulty swallowing food especially liquids - Current Medication List Current Medications: Active Medications Albuterol/Ipratropium (Duoneb -) 1 amp NEB RQID [facility] Last Admin: 03/20/18 19:49 Dose: 1 amp Amlodipine Besylate (Norvasc -) 5 mg PO DAILY [facility] Last Admin: 03/20/18 10:36 Dose: 5 mg Amoxicillin/Clavulanate Potassium (Augmentin - 500mg Tablet) 1 tab PO BID@0800, 1730 [facility] Last Admin: 03/20/18 17:07 Dose: 1 tab Aspirin (Asa -) 81 mg PO HS [facility] Last Admin: 03/20/18 22:23 Dose: 81 mg Atorvastatin Calcium (Lipitor -) 10 mg PO HS [facility] Last Admin: 03/20/18 22:24 Dose: 10 mg Docusate Sodium (Colace -) 100 mg PO Q12H PRN PRN Reason: CONSTIPATION Duloxetine HCl (Cymbalta -) 20 mg PO BID [facility] Last Admin: 03/20/18 22:23 Dose: 20 mg Heparin Sodium (Porcine) (Heparin -) 5,000 unit SQ BID [facility] Last Admin: 03/20/18 22:23 Dose: 5,000 unit Hydralazine HCl (Apresoline -) 25 mg PO BID [facility] Last Admin: 03/20/18 22:22 Dose: Not Given Insulin Aspart (Novolog Vial Sliding Scale -) 1 vial SQ ACHS [facility] PRN Reason: Protocol Last Admin: 03/20/18 22:26 Dose: 7 unit Insulin Detemir (Levemir Vial) 15 units SQ HS [facility] Last Admin: 03/20/18 22:29 Dose: 15 units Insulin Detemir (Levemir Vial) 40 units SQ AM [facility] Last Admin: 03/20/18 08:15 Dose: 40 unit Mycophenolate Sodium (Mycophenolic Acid) 360 mg PO BID [facility] Last Admin: 03/20/18 22:24 Dose: 360 mg Prednisone (Deltasone -) 20 mg PO DAILY [facility] Last Admin: 03/20/18 10:36 Dose: 20 mg Ranitidine HCl (Zantac -) 150 mg PO DAILY [facility] Last Admin: 03/20/18 14:30 Dose: 150 mg Tacrolimus (Prograf) 1 mg PO BID [facility] Last Admin: 03/20/18 22:24 Dose: 1 mg Tamsulosin HCl (Flomax -) 0.4 mg PO 829 [facility] Last Admin: 03/20/18 09:30 Dose: 0.4 mg - Objective Vital Signs: Vital Signs Temperature 98.4 F 03/20/18 22:15 Pulse Rate 65 03/20/18 22:15 Respiratory Rate 18 03/20/18 22:15 Blood Pressure 132/44 03/20/18 22:15 O2 Sat by Pulse Oximetry (%) 95 03/20/18 21:00 Constitutional: Yes: Anxious Eyes: Yes: EOM Intact HENT: Yes: Normocephalic Neck: Yes: Trachea Midline Cardiovascular: Yes: Regular Rate and Rhythm Respiratory: Yes: CTA Bilaterally, Tachypnea Gastrointestinal: Yes: Normal Bowel Sounds ...Rectal Exam: Yes: Deferred Genitourinary: Yes: WNL Breast(s): Yes: WNL Musculoskeletal: Yes: Muscle Weakness Extremities: Yes: WNL Neurological: Yes: Alert, Oriented, Numbness, Tingling, Unsteady Gait, Weakness Labs: CBC, BMP 03/18/18 09:21 03/18/18 09:21 INR, PTT INR 0.98 (0.82-1.09) 03/17/18 16:27 Problem List - Problems (1) Controlled diabetes mellitus type 2 with complications Code(s): E11.8 - TYPE 2 DIABETES MELLITUS WITH UNSPECIFIED COMPLICATIONS (2) Controlled diabetes mellitus with nephropathy Code(s): E11.21 - TYPE 2 DIABETES MELLITUS WITH DIABETIC NEPHROPATHY (3) HCAP (healthcare-associated pneumonia) Code(s): J18.9 - PNEUMONIA, UNSPECIFIED ORGANISM (4) PNA (pneumonia) Code(s): J18.9 - PNEUMONIA, UNSPECIFIED ORGANISM (5) Sepsis Code(s): A41.9 - SEPSIS, UNSPECIFIED ORGANISM (6) CHUCK (acute kidney injury) Code(s): N17.9 - ACUTE KIDNEY FAILURE, UNSPECIFIED (7) Bradycardia Code(s): R00.1 - BRADYCARDIA, UNSPECIFIED (8) C. difficile colitis Code(s): A04.72 - ENTEROCOLITIS D/T CLOSTRIDIUM DIFFICILE, NOT SPCF RECUR (9) Type 2 diabetes mellitus with other circulatory complications Code(s): E11.59 - TYPE 2 DIABETES MELLITUS WITH OTH CIRCULATORY COMPLICATIONS Assessment/Plan Current Active Problems Controlled diabetes mellitus type 2 with complications (Acute) Controlled diabetes mellitus with nephropathy (Acute) HCAP (healthcare-associated pneumonia) (Acute) Hoarseness (Acute) PNA (pneumonia) (Acute) Sepsis (Acute) Uncontrolled diabetes mellitus (Acute) Laboratory Results - last 24 hr 03/19/18 03/20/18 03/20/18 23:23 05:59 06:31 POC Glucometer 358 64 103 03/20/18 03/20/18 03/20/18 11:34 17:04 22:20 POC Glucometer 239 270 220 plan: neurology consult r/o cva mr brain continue bgm qid
[2018-03-21] MEDS: INSULIN SLIDING SCALE (NOVOLOG) 1 VIAL SQ SCH ×4 (06:43→22:26)
[2018-03-21] MEDS: INSULIN (LEVEMIR) 100 UNITS/ML UNITS SQ SCH ×2 (07:26→22:26)
[2018-03-21] MEDS: ALBUTEROL SO4 2.5/IPRATROPIUM 0.5 INH SOL 3 ML VIAL.NEB. NEB SCH ×4 (07:30→21:25)
[2018-03-21] MEDS ORDERED: PT OWN MED DRAWER 7, Y5N ONE (09:15)
[2018-03-21] MEDS: hydrALAZINE HCL 25 MG TABLET (FP) PO SCH ×2 (09:36→23:32)
[2018-03-21] MEDS: RANITIDINE HCL 150 MG TABLET (FP) PO SCH (09:36)
[2018-03-21] MEDS: amLODIPine BESYLATE 5 MG TABLET (FP) PO SCH (09:36)
[2018-03-21] MEDS: predniSONE 20 MG TABLET (UD) PO SCH (09:36)
[2018-03-21] MEDS: DULoxetine HCL 20 MG CAPSULE.DR (FP) PO SCH ×2 (09:36→22:25)
[2018-03-21] MEDS: HEPARIN NA (PORCINE) 5,000 UNITS/ML 1ML VIAL SQ SCH ×2 (09:36→22:26)
[2018-03-21] MEDS: AMOX TR/POT CLAV 500MG/125MG TABLETS (FP) PO SCH ×2 (09:37→18:25)
[2018-03-21] MEDS: TAMSULOSIN HCL 0.4 MG CAP.ER.24H (FP) PO SCH (09:46)
[2018-03-21] MEDS: MYCOPHENOLATE SODIUM 360 MG TABLET.DR PO SCH ×2 (09:47→22:25)
[2018-03-21] MEDS: TACROLIMUS ANHYDROUS 1 MG CAPSULE PO SCH ×2 (09:48→22:27)
--- NOTE | 2018-03-21 12:09 | PN ---
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 Suggest: MBS to further assess swallowing function/ r/o silent aspiration.
--- NOTE | 2018-03-21 12:29 | PN ---
Progress Note, Physician Chief Complaint: patient sittiing in chair seen by leidy park - to get MRI to r/o new cva coughing while eating - Current Medication List Current Medications: Active Medications Albuterol/Ipratropium (Duoneb -) 1 amp NEB RQID [facility] Last Admin: 03/21/18 11:10 Dose: 1 amp Amlodipine Besylate (Norvasc -) 5 mg PO DAILY [facility] Last Admin: 03/21/18 09:36 Dose: 5 mg Amoxicillin/Clavulanate Potassium (Augmentin - 500mg Tablet) 1 tab PO BID@0800, 1730 [facility] Last Admin: 03/21/18 09:37 Dose: 1 tab Aspirin (Asa -) 81 mg PO HS [facility] Last Admin: 03/20/18 22:23 Dose: 81 mg Atorvastatin Calcium (Lipitor -) 10 mg PO HS [facility] Last Admin: 03/20/18 22:24 Dose: 10 mg Docusate Sodium (Colace -) 100 mg PO Q12H PRN PRN Reason: CONSTIPATION Duloxetine HCl (Cymbalta -) 20 mg PO BID [facility] Last Admin: 03/21/18 09:36 Dose: 20 mg Heparin Sodium (Porcine) (Heparin -) 5,000 unit SQ BID [facility] Last Admin: 03/21/18 09:36 Dose: 5,000 unit Hydralazine HCl (Apresoline -) 25 mg PO BID [facility] Last Admin: 03/21/18 09:36 Dose: 25 mg Insulin Aspart (Novolog Vial Sliding Scale -) 1 vial SQ [facility] PRN Reason: Protocol Last Admin: 03/21/18 06:43 Dose: 3 unit Insulin Detemir (Levemir Vial) 15 units SQ HS [facility] Last Admin: 03/20/18 22:29 Dose: 15 units Insulin Detemir (Levemir Vial) 40 units SQ AM [facility] Last Admin: 03/21/18 07:26 Dose: Not Given Mycophenolate Sodium (Mycophenolic Acid) 360 mg PO BID [facility] Last Admin: 03/21/18 09:47 Dose: 360 mg Prednisone (Deltasone -) 20 mg PO DAILY [facility] Last Admin: 03/21/18 09:36 Dose: 20 mg Ranitidine HCl (Zantac -) 150 mg PO DAILY [facility] Last Admin: 03/21/18 09:36 Dose: 150 mg Tacrolimus (Prograf) 1 mg PO BID [facility] Last Admin: 03/21/18 09:48 Dose: 1 mg Tamsulosin HCl (Flomax -) 0.4 mg PO 0830 [facility] Last Admin: 03/21/18 09:46 Dose: 0.4 mg - Objective Vital Signs: Vital Signs Temperature 97.8 F 03/21/18 06:27 Pulse Rate 71 03/21/18 06:27 Respiratory Rate 18 03/21/18 06:27 Blood Pressure 161/49 03/21/18 06:27 O2 Sat by Pulse Oximetry (%) 95 03/20/18 21:00 Constitutional: Yes: Calm Cardiovascular: Yes: Murmur, S1, S2 Respiratory: Yes: CTA Bilaterally, Diminished (at bases) Gastrointestinal: Yes: Normal Bowel Sounds, Soft Edema: No Neurological: Yes: Alert, Oriented (to name) Labs: CBC, BMP 03/18/18 09:21 03/18/18 09:21 INR, PTT INR 0.98 (0.82-1.09) 03/17/18 16:27 Problem List - Problems (1) PNA (pneumonia) Assessment/Plan: to get MBS, change diet to puree diet nectar thick liquids ENT saw patient- right vocal cord paresis will get neurology to get mRI to r/o new CVA and neurology consult augmentin for pna Code(s): J18.9 - PNEUMONIA, UNSPECIFIED ORGANISM (2) Renal transplant disorder Assessment/Plan: mycophenolate and prednisone Code(s): T86.10 - UNSPECIFIED COMPLICATION OF KIDNEY TRANSPLANT (3) Uncontrolled diabetes mellitus Assessment/Plan: seen by endocrine uncontrolled DM hgba1c 10.5 levemir am dose increased to 40units on 15 units HS Code(s): E11.65 - TYPE 2 DIABETES MELLITUS WITH HYPERGLYCEMIA Qualifiers: Diabetes mellitus type: type 2 (4) Hx of CABG Assessment/Plan: asa and statin Code(s): Z95.1 - PRESENCE OF AORTOCORONARY BYPASS GRAFT (5) Hoarseness Assessment/Plan: seen by ENT- right vocal cord paresis to get MBS and MRI brain to r/o new CVA PT eval noted - plan will be to go to [facility] Code(s): R49.0 - DYSPHONIA
--- NOTE | 2018-03-21 13:55 | CON.NEURO ---
Consult - Past Medical History Cardio/Vascular: Yes: CAD (CABG), HTN, MO, Other (PAD, heel osteo in 04/05) Renal/: Yes: Other (S/P Kidney tranplant 2008. 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) Endocrine: Yes: Diabetes Mellitus - Past Surgical History Past Surgical History: Yes: AV Fistula/Graft (right upper arm, non working), CABG, Kidney Transplant (right 2009) - Alcohol/Substance Use Hx Alcohol Use: No History of Substance Use: reports: None - Smoking History Smoking history: Never smoked Have you smoked in the past 12 months: No Aproximately how many cigarettes per day: 0 - Social History Usual Living Arrangement: Alone ADL: Support Services History of Recent Travel: No Home Medications - Allergies Allergies/Adverse Reactions: Allergies Allergy/AdvReac Type Severity Reaction Status Date / Time No Known Drug Allergies Allergy Verified 03/17/18 18:58 - Home Medications Home Medications: Ambulatory Orders Amlodipine Besylate [Norvasc -] 10 mg PO DAILY 05/17/17 Aspirin [Jena Chewable Aspirin] 81 mg PO HS 05/17/17 Atorvastatin Ca [Lipitor] 10 mg PO HS 05/17/17 Carvedilol [Coreg -] 25 mg PO BID 05/17/17 Duloxetine HCl [Cymbalta] 20 mg PO BID 05/17/17 Tamsulosin HCl [Flomax] 0.4 mg PO HS 05/17/17 predniSONE [Deltasone -] 5 mg PO DAILY 05/17/17 Acetaminophen [Tylenol .Regular Strength -] 650 mg PO Q4H PRN tablet 11/29/17 Tacrolimus 1 mg PO BID 11/29/17 Insulin (Levemir) [Levemir Vial] 8 units SQ HS ml 12/05/17 Insulin (Levemir) [Levemir Vial] 25 units SQ AM #0 ml 12/05/17 Docusate Sodium [Colace -] 100 mg PO BID PRN capsule 01/23/18 Insulin (Levemir) [Levemir Vial] 5 units SQ HS ml 01/23/18 Insulin (Levemir) [Levemir Vial] 26 units SQ DAILY@0900 ml 01/23/18 Insulin Sliding Scale [Novolog Vial Sliding Scale -] 1 vial SQ ACHS units 01/23 Mycophenolate Sodium [Mycophenolic Acid] 360 mg PO BID tablet. 01/23/18 hydrALAZINE HCL [Apresoline -] 25 mg PO BID tablet 01/23/18 Albuterol 2.5/Ipratropium 0.5 [Duoneb -] 1 amp NEB QID 02/08/18 Insulin Sliding Scale [Novolog Vial Sliding Scale -] 1 vial SQ ACHS units 02/15 Vancomycin Oral Solution 125 mg PO Q6HPO 14 Days ml 02/15/18 Physical Exam-Neuro Vital Signs: Vital Signs Temperature 97.8 F 03/21/18 06:27 Pulse Rate 71 03/21/18 06:27 Respiratory Rate 18 03/21/18 06:27 Blood Pressure 161/49 03/21/18 06:27 O2 Sat by Pulse Oximetry (%) 95 03/20/18 21:00 Labs: CBC, BMP 03/18/18 09:21 03/18/18 09:21 INR, PTT INR 0.98 (0.82-1.09) 03/17/18 16:27 Assessment/Plan cc 78 year old male hsitory of DM,HTN,CAD,ESRD s/p transplant, s/p cabg. He is known to me since last admission. He admitted for septicemia due to aspiriation penumonia. Patient has been having coughing and difficulty swallowing. He is schedule for mri of brain and speech is seeing him. Patient was admitted for unresponsiveness during last admission was given atrophine and intubated and hypothermic. Patient has recovered very well and now lives with her daughter. 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 He was more lethargic two days ago and now seesm to be more active and walkign around and asking for food. PMH as above SH,FH,ROS reviewed in chart Home Medications: Amlodipine Besylate [Norvasc -] 10 mg PO DAILY 05/17/17 Aspirin [Jena Chewable Aspirin] 81 mg PO HS 05/17/17 Atorvastatin Ca [Lipitor] 10 mg PO HS 05/17/17 Carvedilol [Coreg -] 25 mg PO BID 05/17/17 Duloxetine HCl [Cymbalta] 20 mg PO BID 05/17/17 Tamsulosin HCl [Flomax] 0.4 mg PO HS 05/17/17 predniSONE [Deltasone -] 5 mg PO DAILY 05/17/17 Acetaminophen [Tylenol .Regular Strength -] 650 mg PO Q4H PRN tablet 11/29/17 Tacrolimus 1 mg PO BID 11/29/17 Insulin (Levemir) [Levemir Vial] 8 units SQ HS ml 12/05/17 Insulin (Levemir) [Levemir Vial] 25 units SQ AM #0 ml 12/05/17 Docusate Sodium [Colace -] 100 mg PO BID PRN capsule 01/23/18 Insulin (Levemir) [Levemir Vial] 5 units SQ HS ml 01/23/18 Insulin (Levemir) [Levemir Vial] 26 units SQ DAILY@0900 ml 01/23/18 Insulin Sliding Scale [Novolog Vial Sliding Scale -] 1 vial SQ ACHS units 01/23 Mycophenolate Sodium [Mycophenolic Acid] 360 mg PO BID tablet. 01/23/18 hydrALAZINE HCL [Apresoline -] 25 mg PO BID tablet 01/23/18 Albuterol 2.5/Ipratropium 0.5 [Duoneb -] 1 amp NEB QID 02/08/18 Insulin Sliding Scale [Novolog Vial Sliding Scale -] 1 vial SQ ACHS units 02/15 Vancomycin Oral Solution 125 mg PO Q6HPO 14 Days ml 02/15/18 Neurological Examination He is alert and able to follow command, he knows he is at [facility] and today is march and 2017 He knows his name and why he is here Eomi he has anisocoria , which is old , pupils reactive , no double vision, no ptosis was seen able to move all extremity and no weakness and able to walk sensation is normal grossly Assessment- Dysphagia , concur with ENT likely to be from self extubation and local injury. Though possibility of stroke cant be ruled out, given he has new symptoms and I agree with MRI of brain PLAN: 1. Speech consult appreciated, schedule for MBS. 2. MRI of brain 3. Clinically unlikely to be myositis and Myasthenia gravis. At this time, no further work up needed except mri of brain Will continue to follow , Thanking you so much for consult Tanvir Garcia MD
[2018-03-21] MEDS ORDERED: INSULIN (NOVOLOG) ASPART 100 UNITS/ML 10ML VIAL ONE (21:20)
[2018-03-21] MEDS: ASPIRIN 81 MG CHEWABLE TABLETS PO SCH (22:25)
[2018-03-21] MEDS: ATORVASTATIN CA 10 MG TABLET (FP) PO SCH (22:25)
[2018-03-22] MEDS: INSULIN (LEVEMIR) 100 UNITS/ML UNITS SQ SCH ×2 (06:53→22:34)
[2018-03-22] MEDS: INSULIN SLIDING SCALE (NOVOLOG) 1 VIAL SQ SCH ×4 (06:53→22:35)
[2018-03-22] MEDS ORDERED: INSULIN (NOVOLOG) ASPART 100 UNITS/ML 10ML VIAL ONE ×2 (07:06→11:54)
[2018-03-22] MEDS: ALBUTEROL SO4 2.5/IPRATROPIUM 0.5 INH SOL 3 ML VIAL.NEB. NEB SCH ×4 (08:15→20:24)
--- NOTE | 2018-03-22 08:37 | PN ---
Progress Note (short form) - Note Progress Note: 78 year old male hsitory of DM,HTN,CAD,ESRD s/p transplant, s/p cabg. He is known to me since last admission. He admitted for septicemia due to aspiriation penumonia. Patient has been having coughing and difficulty swallowing. He is schedule for mri of brain and speech is seeing him. Patient was admitted for unresponsiveness during last admission was given atrophine and intubated and hypothermic. Patient has recovered very well and now lives with her daughter. 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 He was more lethargic two days ago and now seesm to be more active and walkign around and asking for food. 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 Mri findings seems to be asymptomatic, less likley to be contributing to dysphagia. I suggest to increase lipitor , and carotid ultrasound, continue aspirin at same dose ( as stroke seems to be asymptomatic) Thanking you so much Tanvir Garcia MD
[2018-03-22] MEDS ORDERED: PT OWN MED DRAWER 7, Y5N ONE ×2 (08:47→21:14)
[2018-03-22] MEDS: RANITIDINE HCL 150 MG TABLET (FP) PO SCH (09:03)
[2018-03-22] MEDS: hydrALAZINE HCL 25 MG TABLET (FP) PO SCH ×2 (09:03→22:33)
[2018-03-22] MEDS: predniSONE 20 MG TABLET (UD) PO SCH (09:03)
[2018-03-22] MEDS: TACROLIMUS ANHYDROUS 1 MG CAPSULE PO SCH ×2 (09:04→22:34)
[2018-03-22] MEDS: TAMSULOSIN HCL 0.4 MG CAP.ER.24H (FP) PO SCH (09:04)
[2018-03-22] MEDS: DULoxetine HCL 20 MG CAPSULE.DR (FP) PO SCH ×2 (09:04→22:33)
[2018-03-22] MEDS: amLODIPine BESYLATE 5 MG TABLET (FP) PO SCH (09:04)
[2018-03-22] MEDS: HEPARIN NA (PORCINE) 5,000 UNITS/ML 1ML VIAL SQ SCH ×2 (09:05→22:34)
[2018-03-22] MEDS: MYCOPHENOLATE SODIUM 360 MG TABLET.DR PO SCH ×2 (09:05→22:33)
[2018-03-22] MEDS: AMOX TR/POT CLAV 500MG/125MG TABLETS (FP) PO SCH ×2 (09:05→16:40)
--- NOTE | 2018-03-22 10:29 | PN ---
Progress Note, CUSTODIAL MANAGER - Note Progress Note: Appreciate neurology evaluation. Previous mbs x 3 with h/o dysphagia and silent aspiration. For mbs to further assess present swallowing function and r/o aspiration sec right vc paresis.
--- NOTE | 2018-03-22 12:03 | PN ---
Progress Note, Physician Chief Complaint: Abdominal pain, N/V Pneumonia History of Present Illness: NAD, polish speaking Had MRI last evening shows: - Current Medication List Current Medications: Active Medications Albuterol/Ipratropium (Duoneb -) 1 amp NEB RQID [facility] Last Admin: 03/22/18 11:29 Dose: 1 amp Amlodipine Besylate (Norvasc -) 5 mg PO DAILY [facility] Last Admin: 03/22/18 09:04 Dose: 5 mg Amoxicillin/Clavulanate Potassium (Augmentin - 500mg Tablet) 1 tab PO BID@0800, 1730 [facility] Last Admin: 03/22/18 09:05 Dose: 1 tab Aspirin (Asa -) 81 mg PO HS [facility] Last Admin: 03/21/18 22:25 Dose: 81 mg Atorvastatin Calcium (Lipitor -) 40 mg PO HS [facility] Docusate Sodium (Colace -) 100 mg PO Q12H PRN PRN Reason: CONSTIPATION Duloxetine HCl (Cymbalta -) 20 mg PO BID [facility] Last Admin: 03/22/18 09:04 Dose: 20 mg Heparin Sodium (Porcine) (Heparin -) 5,000 unit SQ BID [facility] Last Admin: 03/22/18 09:05 Dose: 5,000 unit Hydralazine HCl (Apresoline -) 25 mg PO BID [facility] Last Admin: 03/22/18 09:03 Dose: 25 mg Insulin Aspart (Novolog Vial Sliding Scale -) 1 vial SQ ACHS [facility] PRN Reason: Protocol Last Admin: 03/22/18 11:55 Dose: 7 unit Insulin Detemir (Levemir Vial) 15 units SQ HS [facility] Last Admin: 03/21/18 22:26 Dose: 15 units Insulin Detemir (Levemir Vial) 50 units SQ 0745 [facility] Last Admin: 03/22/18 06:53 Dose: 50 unit Mycophenolate Sodium (Mycophenolic Acid) 360 mg PO BID [facility] Last Admin: 03/22/18 09:05 Dose: 360 mg Prednisone (Deltasone -) 20 mg PO DAILY [facility] Last Admin: 03/22/18 09:03 Dose: 20 mg Ranitidine HCl (Zantac -) 150 mg PO DAILY [facility] Last Admin: 03/22/18 09:03 Dose: 150 mg Tacrolimus (Prograf) 1 mg PO BID [facility] Last Admin: 03/22/18 09:04 Dose: 1 mg Tamsulosin HCl (Flomax -) 0.4 mg PO 0830 [facility] Last Admin: 03/22/18 09:04 Dose: 0.4 mg - Objective Vital Signs: Vital Signs Temperature 97.9 F 03/22/18 09:23 Pulse Rate 80 03/22/18 09:23 Respiratory Rate 18 03/22/18 09:23 Blood Pressure 153/45 03/22/18 09:23 O2 Sat by Pulse Oximetry (%) 97 03/21/18 21:00 Constitutional: Yes: Well Nourished, No Distress, Calm Cardiovascular: Yes: Regular Rate and Rhythm Respiratory: Yes: Regular Gastrointestinal: Yes: Normal Bowel Sounds, Soft Musculoskeletal: Yes: WNL Extremities: Yes: WNL Edema: No Peripheral Pulses WNL: Yes Neurological: Yes: Alert Psychiatric: Yes: Alert Labs: CBC, BMP 03/18/18 09:21 03/18/18 09:21 INR, PTT INR 0.98 (0.82-1.09) 03/17/18 16:27 Problem List - Problems (1) PNA (pneumonia) Assessment/Plan: -PO abx -seen by ID -Nasal O2 as needed -broncodilators Code(s): J18.9 - PNEUMONIA, UNSPECIFIED ORGANISM (2) Uncontrolled diabetes mellitus Assessment/Plan: -BGM -Elevated due to prednisone and IV abx received in D5 -Seen by Endocrinology -Levemir adjusted -Insulin coverage -Diabetic diet Code(s): E11.65 - TYPE 2 DIABETES MELLITUS WITH HYPERGLYCEMIA Qualifiers: Diabetes mellitus type: type 2 (3) History of MRSA infection Assessment/Plan: -ID on board -No acute infection -Contact isolation Code(s): Z86.14 - PERSONAL HISTORY OF METHICILLIN RESIS STAPH INFECTION (4) Kidney transplant recipient Assessment/Plan: mycophenolate and prednisone Code(s): Z94.0 - KIDNEY TRANSPLANT STATUS Assessment/Plan see problem list
[2018-03-22] MEDS: ASPIRIN 81 MG CHEWABLE TABLETS PO SCH (22:33)
[2018-03-22] MEDS: ATORVASTATIN CA 40 MG TABLET (FP) PO SCH (22:33)
[2018-03-23] MEDS: INSULIN SLIDING SCALE (NOVOLOG) 1 VIAL SQ SCH ×4 (06:33→22:25)
[2018-03-23] MEDS ORDERED: PT OWN MED DRAWER 7, Y5N ONE (08:49)
[2018-03-23] MEDS: RANITIDINE HCL 150 MG TABLET (FP) PO SCH (09:09)
[2018-03-23] MEDS: predniSONE 20 MG TABLET (UD) PO SCH (09:09)
[2018-03-23] MEDS: amLODIPine BESYLATE 5 MG TABLET (FP) PO SCH (09:09)
[2018-03-23] MEDS: hydrALAZINE HCL 25 MG TABLET (FP) PO SCH ×2 (09:11→22:21)
[2018-03-23] MEDS: TAMSULOSIN HCL 0.4 MG CAP.ER.24H (FP) PO SCH (09:14)
[2018-03-23] MEDS: AMOX TR/POT CLAV 500MG/125MG TABLETS (FP) PO SCH ×2 (09:14→16:50)
[2018-03-23] MEDS: INSULIN (LEVEMIR) 100 UNITS/ML UNITS SQ SCH ×2 (09:15→22:23)
[2018-03-23] MEDS: DULoxetine HCL 20 MG CAPSULE.DR (FP) PO SCH ×2 (09:16→22:22)
[2018-03-23] MEDS: HEPARIN NA (PORCINE) 5,000 UNITS/ML 1ML VIAL SQ SCH ×2 (09:16→22:21)
[2018-03-23] MEDS: TACROLIMUS ANHYDROUS 1 MG CAPSULE PO SCH ×2 (09:16→22:22)
[2018-03-23] MEDS: MYCOPHENOLATE SODIUM 360 MG TABLET.DR PO SCH ×2 (09:17→22:21)
--- NOTE | 2018-03-23 11:03 | PN ---
Progress Note, Physician Chief Complaint: Abdominal pain, N/V Pneumonia History of Present Illness: NAD, lao speaking Had MRI last evening shows: - Current Medication List Current Medications: Active Medications Amlodipine Besylate (Norvasc -) 5 mg PO DAILY [facility] Last Admin: 03/23/18 09:09 Dose: 5 mg Amoxicillin/Clavulanate Potassium (Augmentin - 500mg Tablet) 1 tab PO BID@0800, 1730 [facility] Last Admin: 03/23/18 09:14 Dose: 1 tab Aspirin (Asa -) 81 mg PO HS [facility] Last Admin: 03/22/18 22:33 Dose: 81 mg Atorvastatin Calcium (Lipitor -) 40 mg PO HS [facility] Last Admin: 03/22/18 22:33 Dose: 40 mg Docusate Sodium (Colace -) 100 mg PO Q12H PRN PRN Reason: CONSTIPATION Duloxetine HCl (Cymbalta -) 20 mg PO BID [facility] Last Admin: 03/23/18 09:16 Dose: 20 mg Heparin Sodium (Porcine) (Heparin -) 5,000 unit SQ BID [facility] Last Admin: 03/23/18 09:16 Dose: 5,000 unit Hydralazine HCl (Apresoline -) 25 mg PO BID [facility] Last Admin: 03/23/18 09:11 Dose: 25 mg Insulin Aspart (Novolog Vial Sliding Scale -) 1 vial SQ [facility] PRN Reason: Protocol Last Admin: 03/23/18 06:33 Dose: Not Given Insulin Detemir (Levemir Vial) 15 units SQ HS [facility] Last Admin: 03/22/18 22:34 Dose: 15 units Insulin Detemir (Levemir Vial) 50 units SQ 0745 [facility] Last Admin: 03/23/18 09:15 Dose: 50 unit Mycophenolate Sodium (Mycophenolic Acid) 360 mg PO BID [facility] Last Admin: 03/23/18 09:17 Dose: 360 mg Prednisone (Deltasone -) 20 mg PO DAILY [facility] Last Admin: 03/23/18 09:09 Dose: 20 mg Ranitidine HCl (Zantac -) 150 mg PO DAILY [facility] Last Admin: 03/23/18 09:09 Dose: 150 mg Tacrolimus (Prograf) 1 mg PO BID [facility] Last Admin: 03/23/18 09:16 Dose: 1 mg Tamsulosin HCl (Flomax -) 0.4 mg PO 0830 [facility] Last Admin: 03/23/18 09:14 Dose: 0.4 mg - Objective Vital Signs: Vital Signs Temperature 97.7 F 03/23/18 09:51 Pulse Rate 81 03/23/18 09:51 Respiratory Rate 18 03/23/18 09:51 Blood Pressure 136/49 03/23/18 09:51 O2 Sat by Pulse Oximetry (%) 98 03/23/18 09:00 Constitutional: Yes: Well Nourished, No Distress, Calm Cardiovascular: Yes: Regular Rate and Rhythm Respiratory: Yes: Regular Labs: CBC, BMP 03/18/18 09:21 03/18/18 09:21 INR, PTT INR 0.98 (0.82-1.09) 03/17/18 16:27 Problem List - Problems (1) PNA (pneumonia) Assessment/Plan: -PO abx -seen by ID -Nasal O2 as needed -broncodilators Code(s): J18.9 - PNEUMONIA, UNSPECIFIED ORGANISM (2) Uncontrolled diabetes mellitus Assessment/Plan: -BGM -Elevated due to prednisone and IV abx received in D5 -Seen by Endocrinology -Levemir adjusted -Insulin coverage -Diabetic diet Code(s): E11.65 - TYPE 2 DIABETES MELLITUS WITH HYPERGLYCEMIA Qualifiers: Diabetes mellitus type: type 2 (3) History of MRSA infection Assessment/Plan: -ID on board -No acute infection -Contact isolation Code(s): Z86.14 - PERSONAL HISTORY OF METHICILLIN RESIS STAPH INFECTION (4) Kidney transplant recipient Assessment/Plan: mycophenolate and prednisone Code(s): Z94.0 - KIDNEY TRANSPLANT STATUS Assessment/Plan see problem list
--- NOTE | 2018-03-23 12:35 | DS ---
Physical Examination Vital Signs: Vital Signs Temperature 97.7 F 03/23/18 09:51 Pulse Rate 81 03/23/18 09:51 Respiratory Rate 18 03/23/18 09:51 Blood Pressure 136/49 03/23/18 09:51 O2 Sat by Pulse Oximetry (%) 98 03/23/18 09:00 Constitutional: Yes: Well Nourished, No Distress, Calm Cardiovascular: Yes: Regular Rate and Rhythm Respiratory: Yes: Regular Gastrointestinal: Yes: Normal Bowel Sounds, Soft Musculoskeletal: Yes: WNL Extremities: Yes: WNL Edema: No Peripheral Pulses WNL: Yes Neurological: Yes: Alert, Oriented Psychiatric: Yes: Alert, Oriented Labs: CBC, BMP 03/18/18 09:21 03/18/18 09:21 Discharge Summary Reason For Visit: SEPSIS Current Active Problems Controlled diabetes mellitus type 2 with complications (Acute) Controlled diabetes mellitus with nephropathy (Acute) HCAP (healthcare-associated pneumonia) (Acute) Hoarseness (Acute) PNA (pneumonia) (Acute) Sepsis (Acute) Uncontrolled diabetes mellitus (Acute) Hospital Course: 78 y/o man from home. Presents to the ED with diaphoresis, subjective fever, abdominal pain x today. Per ED records: The abdominal pain started at 5am this am, periumbilical and sharp, non radiating, initially 5/10. There was associated nausea and vomiting and subjective fevers. Pt was noted to have increased urinary frequency, no hematuria, no dysuria. No chest pain or palpitations, no cough, sore throat or nasal congestion. The pt was noticed to have increased somnolence yesterday, and skipped his last meal for the day. He woke up this morning, diaphoretic and sweating and was given sodas for presumed hypoglycemia. No seizures, no syncope, no leg swelling. He normally runs between 200-350s. Last BGM-183. Patient lives with his and walks using a cane for assistance. Since yesterday, he has been too weak to walk. He took all his medications today after the episode of vomiting and feels that the abdominal pain has resolved on presentation. Modified Barium Swallow: Impression Impulsive intake. Silent aspiration on thin liquid. Mild hang-up with solids, with improved clearance with repeat swallow or follow-up of liquid. RECOMMENDATIONS: No thin liquid. Soft, cohesive moist diet with nectar thick liquid. Remind patient to drink slowly, one sip at a time, without a straw. The study was reviewed at length with the patient and the spot film was reviewed. He was strongly advised to eliminate thin liquid from his diet. Patient may benefit from swallowing therapy to improve vocal cord adduction and airway protection. Bilateral Carotid U/S: Impression: No Doppler evidence of a high-grade carotid artery stenosis. At least moderate bilateral carotid artery atherosclerosis. MRI Brain without contrast: A small acute left frontal subcortical white matter infarct is noted. Small chronic left basal ganglia and left thalamic infarcts. Small chronic left frontal cortical/subcortical infarct. Moderate periventricular and subcortical chronic microvascular ischemic changes. Several supratentorial chronic microbleeds are seen. Abdomen Pelvis CT without contrast: IMPRESSION: No definite CT findings of acute pathology are identified within the abdomen/pelvis. In comparison to an abdomen/pelvis CT study of 10/10/2017 interval development of small bibasilar opacities is noted consistent with infiltrates and/or atelectasis. Development of trace bilateral pleural effusions is also seen. Interval development of several subacute/chronic right rib fractures is noted. There is mild dilatation of the collecting system and ureter of a transplanted kidney within the right pelvis. The degree of dilatation appears improved since the previous study. The remainder of the exam demonstrates no obvious interval change. Status post right nephrectomy. Marked left renal atrophy. The current urinary bladder volume is approximately 400 mL - ? physiologic distention versus mild early retention. Correlate clinically. A similar degree of distention was seen on the previous exam. Very extensive atherosclerotic abdominal and coronary artery calcifications. Stable 2.4 cm left adrenal adenoma. Inferior vena cava filter in place. Colonic fecal retention which is probably moderate. Condition: Stable - Instructions Diet, Activity, Other Instructions: Soft cohesive moist diet with nectar thick liquids Referrals: Mino Abel MD [Staff Physician] - Gt Villela MD [Primary Care Provider] - Disposition: [facility] - Home Medications Comprehensive Discharge Medication List: Ambulatory Orders Amlodipine Besylate [Norvasc -] 10 mg PO DAILY 05/17/17 Aspirin [Jena Chewable Aspirin] 81 mg PO HS 05/17/17 Atorvastatin Ca [Lipitor] 10 mg PO HS 05/17/17 Carvedilol [Coreg -] 25 mg PO BID 05/17/17 Duloxetine HCl [Cymbalta] 20 mg PO BID 05/17/17 Tamsulosin HCl [Flomax] 0.4 mg PO HS 05/17/17 predniSONE [Deltasone -] 5 mg PO DAILY 05/17/17 Acetaminophen [Tylenol .Regular Strength -] 650 mg PO Q4H PRN tablet 11/29/17 Tacrolimus 1 mg PO BID 11/29/17 Insulin (Levemir) [Levemir Vial] 8 units SQ HS ml 12/05/17 Insulin (Levemir) [Levemir Vial] 25 units SQ AM #0 ml 12/05/17 Docusate Sodium [Colace -] 100 mg PO BID PRN capsule 01/23/18 Insulin (Levemir) [Levemir Vial] 5 units SQ HS ml 01/23/18 Insulin (Levemir) [Levemir Vial] 26 units SQ DAILY@0900 ml 01/23/18 Insulin Sliding Scale [Novolog Vial Sliding Scale -] 1 vial SQ ACHS units 01/23 Mycophenolate Sodium [Mycophenolic Acid] 360 mg PO BID tablet. 01/23/18 hydrALAZINE HCL [Apresoline -] 25 mg PO BID tablet 01/23/18 Albuterol 2.5/Ipratropium 0.5 [Duoneb -] 1 amp NEB QID 02/08/18 Insulin Sliding Scale [Novolog Vial Sliding Scale -] 1 vial SQ ACHS units 02/15 Vancomycin Oral Solution 125 mg PO Q6HPO 14 Days ml 02/15/18
[2018-03-23] MEDS: ATORVASTATIN CA 40 MG TABLET (FP) PO SCH (22:21)
[2018-03-23] MEDS: ASPIRIN 81 MG CHEWABLE TABLETS PO SCH (22:21)
[2018-03-24] MEDS: INSULIN SLIDING SCALE (NOVOLOG) 1 VIAL SQ SCH ×2 (06:17→12:30)
[2018-03-24] MEDS ORDERED: PT OWN MED DRAWER 7, Y5N ONE (09:14)
[2018-03-24] MEDS: RANITIDINE HCL 150 MG TABLET (FP) PO SCH (10:00)
[2018-03-24] MEDS: amLODIPine BESYLATE 5 MG TABLET (FP) PO SCH (10:00)
[2018-03-24] MEDS: hydrALAZINE HCL 25 MG TABLET (FP) PO SCH (10:00)
[2018-03-24] MEDS: MYCOPHENOLATE SODIUM 360 MG TABLET.DR PO SCH (10:00)
[2018-03-24] MEDS: TACROLIMUS ANHYDROUS 1 MG CAPSULE PO SCH (10:00)
[2018-03-24] MEDS: predniSONE 20 MG TABLET (UD) PO SCH (10:00)
[2018-03-24] MEDS: HEPARIN NA (PORCINE) 5,000 UNITS/ML 1ML VIAL SQ SCH (10:01)
[2018-03-24] MEDS: DULoxetine HCL 20 MG CAPSULE.DR (FP) PO SCH (10:01)
[2018-03-24] MEDS: INSULIN (LEVEMIR) 100 UNITS/ML UNITS SQ SCH (10:02)
[2018-03-24] MEDS: AMOX TR/POT CLAV 500MG/125MG TABLETS (FP) PO SCH (10:02)
[2018-03-24] MEDS: TAMSULOSIN HCL 0.4 MG CAP.ER.24H (FP) PO SCH (10:06)
--- NOTE | 2018-03-24 10:45 | PN ---
Progress Note, Physician Chief Complaint: patient seen and examined ready to go home - Current Medication List Current Medications: Active Medications Amlodipine Besylate (Norvasc -) 5 mg PO DAILY [facility] Last Admin: 03/24/18 10:00 Dose: 5 mg Amoxicillin/Clavulanate Potassium (Augmentin - 500mg Tablet) 1 tab PO BID@0800, 1730 [facility] Last Admin: 03/24/18 10:02 Dose: 1 tab Aspirin (Asa -) 81 mg PO HS [facility] Last Admin: 03/23/18 22:21 Dose: 81 mg Atorvastatin Calcium (Lipitor -) 40 mg PO HS [facility] Last Admin: 03/23/18 22:21 Dose: 40 mg Docusate Sodium (Colace -) 100 mg PO Q12H PRN PRN Reason: CONSTIPATION Duloxetine HCl (Cymbalta -) 20 mg PO BID [facility] Last Admin: 03/24/18 10:01 Dose: 20 mg Heparin Sodium (Porcine) (Heparin -) 5,000 unit SQ BID [facility] Last Admin: 03/24/18 10:01 Dose: 5,000 unit Hydralazine HCl (Apresoline -) 25 mg PO BID [facility] Last Admin: 03/24/18 10:00 Dose: 25 mg Insulin Aspart (Novolog Vial Sliding Scale -) 1 vial SQ [facility] PRN Reason: Protocol Last Admin: 03/24/18 06:17 Dose: Not Given Insulin Detemir (Levemir Vial) 15 units SQ HS [facility] Last Admin: 03/23/18 22:23 Dose: 15 units Insulin Detemir (Levemir Vial) 50 units SQ 0745 [facility] Last Admin: 03/24/18 10:02 Dose: 50 unit Mycophenolate Sodium (Mycophenolic Acid) 360 mg PO BID [facility] Last Admin: 03/24/18 10:00 Dose: 360 mg Prednisone (Deltasone -) 20 mg PO DAILY [facility] Last Admin: 03/24/18 10:00 Dose: 20 mg Ranitidine HCl (Zantac -) 150 mg PO DAILY [facility] Last Admin: 03/24/18 10:00 Dose: 150 mg Tacrolimus (Prograf) 1 mg PO BID [facility] Last Admin: 03/24/18 10:00 Dose: 1 mg Tamsulosin HCl (Flomax -) 0.4 mg PO 0830 [facility] Last Admin: 03/24/18 10:06 Dose: 0.4 mg - Objective Vital Signs: Vital Signs Temperature 98 F 03/24/18 10:20 Pulse Rate 81 03/24/18 10:20 Respiratory Rate 18 03/24/18 10:20 Blood Pressure 149/48 03/24/18 10:20 O2 Sat by Pulse Oximetry (%) 97 03/23/18 21:00 Constitutional: Yes: Calm Neck: Yes: Trachea Midline Cardiovascular: Yes: Regular Rate and Rhythm, S1, S2 Respiratory: Yes: CTA Bilaterally Gastrointestinal: Yes: Normal Bowel Sounds, Soft Extremities: Yes: Other (AVF with thrill) Neurological: Yes: Alert, Oriented Labs: CBC, BMP 03/18/18 09:21 03/18/18 09:21 INR, PTT INR 0.98 (0.82-1.09) 03/17/18 16:27 Problem List - Problems (1) PNA (pneumonia) Assessment/Plan: to get MBS, change diet to puree diet nectar thick liquids ENT saw patient- right vocal cord paresis augmetin Code(s): J18.9 - PNEUMONIA, UNSPECIFIED ORGANISM (2) Renal transplant disorder Assessment/Plan: mycophenolate and prednisone Code(s): T86.10 - UNSPECIFIED COMPLICATION OF KIDNEY TRANSPLANT (3) Uncontrolled diabetes mellitus Assessment/Plan: seen by endocrine uncontrolled DM hgba1c 10.5 levemir am dose increased to 40units on 15 units HS Code(s): E11.65 - TYPE 2 DIABETES MELLITUS WITH HYPERGLYCEMIA Qualifiers: Diabetes mellitus type: type 2 (4) Hx of CABG Assessment/Plan: asa and statin Code(s): Z95.1 - PRESENCE OF AORTOCORONARY BYPASS GRAFT (5) Hoarseness Assessment/Plan: seen by ENT- right vocal cord paresis to get MBS and MRI brain to r/o new CVA PT eval noted - plan will be to go [facility] Code(s): R49.0 - DYSPHONIA Assessment/Plan MRI done left frontal lobe infarct - asymptomatic-on statin and asprin seen by neurology dysphagia bc of vocal cord paresis to go home today
[2018-03-24 11:11] LABS: BASO % 0.6 % (0-2.0); EOS % 2.9 % (0-4.5); HEMATOCRIT 33.1 % (35.4-49); LYMPH % 28.6 % (8-40); MCH 29.2 pg (25.7-33.7); MCHC 33.3 g/dl (32.0-35.9); MEAN CELL VOLUME 87.7 fl (80-96); MEAN PLT VOLUME 7.9 fl (7.5-11.1); MONO % 8.7 % (3.8-10.2); NEUT % 59.2 % (42.8-82.8); PLATELET COUNT 239 K/MM3 (134-434); RBC 3.77 M/mm3 (4.00-5.60); RDW 16.1 % (11.9-15.9); WHITE BLOOD COUNT 7.5 K/mm3 (4.0-10.0)
[2018-03-24 11:32] LABS: ALBUMIN 2.8 g/dl (3.4-5.0); ANION GAP 5 (8-16); BILIRUBIN,TOTAL 0.3 mg/dL (0.2-1.0); BLOOD UREA NITROGEN 25 mg/dL (7-18); CALCIUM 8.5 mg/dL (8.5-10.1); CHLORIDE 101 mmol/L (98-107); CO2 31 mmol/L (21-32); CREATININE 1.1 mg/dL (0.7-1.3); GLUCOSE,RANDOM 252 mg/dL (74-106); POTASSIUM 4.7 mmol/L (3.5-5.1); SGOT/AST 9 U/L (15-37); SGPT/ALT 16 U/L (12-78); SODIUM 137 mmol/L (136-145); TOT PROT 5.3 g/dl (6.4-8.2)
[2018-03-24 11:33] LABS: ALK PHOS 60 U/L (45-117)
[2018-03-24 13:45] VITALS: BP 114/49; PULSE 93; TEMP 97.9
== END 2018-03-24 15:04 | disposition home health service (06) | DRG 871 ==
LOC: JER 14:49 → SUPCPDRO 14:49 → JERBED 22:24 → J7W 03-18 02:17
PROVIDERS: ADMIT Internal Medicine; ATTEND Internal Medicine Endocrinology, Diabetes & Metabolism
PROC: 0CJS8ZZ Inspection of Larynx, Via Natural or Artificial Opening Endoscopic (ICD-10-PCS; principal; 2018-03-19)
DX: A41.9 Sepsis, unspecified organism (principal); J69.0 Pneumonitis due to inhalation of food and vomit; I63.9 Cerebral infarction, unspecified; Z94.0 Kidney transplant status; I45.2 Bifascicular block; N17.9 Acute kidney failure, unspecified; I11.0 Hypertensive heart disease with heart failure; I50.9 Heart failure, unspecified; E11.21 Type 2 diabetes mellitus with diabetic nephropathy; J38.02 Paralysis of vocal cords and larynx, bilateral; Z79.4 Long term (current) use of insulin; I25.10 Atherosclerotic heart disease of native coronary artery without angina pectoris; Z95.1 Presence of aortocoronary bypass graft; I25.2 Old myocardial infarction; I73.9 Peripheral vascular disease, unspecified; Z86.74 Personal history of sudden cardiac arrest; K44.9 Diaphragmatic hernia without obstruction or gangrene; Z16.35 Resistance to multiple antimicrobial drugs; R00.1 Bradycardia, unspecified; E11.65 Type 2 diabetes mellitus with hyperglycemia; E03.9 Hypothyroidism, unspecified
CPT/HCPCS: 36415; 70551-TC; 71045-TC-FY; 74176-TC; 74230-TC-FY; 80048; 80053; 81003; 82533; 82803; 82962; 83605; 84484; 85025; 85610; 85730; 87040; 87081; 87086; 87899; 92611-GN; 93005; 93010; 93880-TC; 94640; 97116-GP; 97161-GP; 99285-25; J0131; J1644; J7030; J7620

== ENCOUNTER 2018-04-10 12:29 | Inpatient (IN) | payer OTHER ==
[2018-04-10] MEDS ORDERED: PIPERACILLIN/TAZOB 3.375 GM 3.375 GM in DEXTROSE 5%-WATER - 50 ML IVPB ONE (13:53)
[2018-04-10] MEDS ORDERED: ACETAMINOPHEN 325 MG TABLET (FP) PO ONE (13:53)
[2018-04-10] MEDS ORDERED: SODIUM CHLORIDE 1,000 ML IV STA (13:56)
--- NOTE | 2018-04-10 14:06 | PDOC ---
History of Present Illness - General History Source: Patient Exam Limitations: No Limitations - History of Present Illness Initial Comments: 04/10/18 14:11 The patient is a 78 year old male, with a significant past medical history of HTN, DM (on insulin), PAD, CAD s/p SD with CABG, s/p renal transplant 2009 on immunosuppressants (on anti rejection medication) who presents to the ED for persistent fever, nausea/vomiting today. Patient reports associated decreased PO intake. Patient denies any abdominal pain, diarrhea or constipation. Upon evaluation, patients vital signs significant for 101.1 oral temperature. Patient denies chest pain, palpitations, diaphoresis, headache or dizziness. Patient denies dysuria, frequency, urgency or hematuria. Patient denies sick contacts or recent travel. Allergies: NKA Past surgical history: renal transplant, CABG Social history: denies etoh, smoking, recreational drug use PCP: Dr. Villela <Alessandra Kenyon - Last Filed: 04/10/18 14:12> <Ligia Canchola - Last Filed: 04/10/18 16:25> - General History Source: Patient, Old Records Exam Limitations: No Limitations <Willam Mcdonald - Last Filed: 04/10/18 17:08> - General Chief Complaint: Pain Stated Complaint: WEAKNESS Time Seen by Provider: 04/10/18 13:15 Past History <Alessandra Kenyon - Last Filed: 04/10/18 14:12> <Ligia Canchola - Last Filed: 04/10/18 16:25> - Past Medical History Anemia: No Asthma: No Cancer: No Cardiac Disorders: Yes (cardiac arrest, CABG) CVA: No COPD: No CHF: Yes Dementia: No Diabetes: Yes (iddm) Dialysis: Yes (stopped 2008) GI Disorders: No Disorders: No HTN: Yes Hypercholesterolemia: Yes Liver Disease: No Seizures: No Thyroid Disease: No - Surgical History Abdominal Surgery: No Appendectomy: No Cardiac Surgery: Yes (open heart surgery) Cholecystectomy: No Lung Surgery: No Neurologic Surgery: No Orthopedic Surgery: No - Immunization History Immunization Up to Date: Yes - Suicide/Smoking/Psychosocial Hx Smoking Status: No Smoking History: Never smoked Have you smoked in the past 12 months: No Number of Cigarettes Smoked Daily: 0 Hx Alcohol Use: No Drug/Substance Use Hx: No Substance Use Type: None Hx Substance Use Treatment: No <Willam Mcdonald - Last Filed: 04/10/18 17:08> - Past Medical History Allergies/Adverse Reactions: Allergies Allergy/AdvReac Type Severity Reaction Status Date / Time No Known Drug Allergies Allergy Verified 04/10/18 13:13 Home Medications: Ambulatory Orders Amlodipine Besylate [Norvasc -] 10 mg PO DAILY 05/17/17 Aspirin [Jena Chewable Aspirin] 81 mg PO HS 05/17/17 Carvedilol [Coreg -] 25 mg PO BID 05/17/17 Duloxetine HCl [Cymbalta] 20 mg PO BID 05/17/17 Tamsulosin HCl [Flomax] 0.4 mg PO HS 05/17/17 predniSONE [Deltasone -] 5 mg PO DAILY 05/17/17 Acetaminophen [Tylenol .Regular Strength -] 650 mg PO Q4H PRN tablet 11/29/17 Tacrolimus 1 mg PO BID 11/29/17 Docusate Sodium [Colace -] 100 mg PO BID PRN capsule 01/23/18 Mycophenolate Sodium [Mycophenolic Acid] 360 mg PO BID tablet. 01/23/18 hydrALAZINE HCL [Apresoline -] 25 mg PO BID tablet 01/23/18 Albuterol 2.5/Ipratropium 0.5 [Duoneb -] 1 amp NEB QID 02/08/18 Atorvastatin Ca [Lipitor] 40 mg PO HS #30 tablet 03/23/18 Insulin Sliding Scale [Novolog Vial Sliding Scale -] 1 vial SQ ACHS #1 units 02/05 Review of Systems - Review of Systems Able to Perform ROS?: Yes Comments:: 04/10/18 14:11 GENERAL/CONSTITUTIONAL: + fever or chills. No weakness. HEAD, EYES, EARS, NOSE AND THROAT: No change in vision. No ear pain or discharge. No sore throat. CARDIOVASCULAR: No chest pain or shortness of breath. RESPIRATORY: No cough, wheezing, or hemoptysis. GASTROINTESTINAL: + nausea, vomiting. No diarrhea or constipation. GENITOURINARY: No dysuria, frequency, or change in urination. MUSCULOSKELETAL: No joint or muscle swelling or pain. No neck or back pain. SKIN: No rash NEUROLOGIC: No headache, vertigo, loss of consciousness, or change in strength/ sensation. ENDOCRINE: No increased thirst. No abnormal weight change. HEMATOLOGIC/LYMPHATIC: No anemia, easy bleeding, or history of blood clots. ALLERGIC/IMMUNOLOGIC: No hives or skin allergy. <Alessandra Kenyon - Last Filed: 04/10/18 14:12> *Physical Exam - Vital Signs Last Vital Signs Temp Pulse Resp BP Pulse Ox 101.1 F H 92 H 30 H 163/64 91 L 04/10/18 13:50 04/10/18 13:50 04/10/18 13:50 04/10/18 13:50 04/10/18 13:50 - Physical Exam Comments: 04/10/18 14:12 GENERAL: Awake, alert, and fully oriented, in no acute distress. +Warm to touch. HEAD: No signs of trauma EYES: PERRLA, EOMI, sclera anicteric, conjunctiva clear ENT: Auricles normal inspection, hearing grossly normal, nares patent, oropharynx clear without exudates. Moist mucosa NECK: Normal ROM, supple, no lymphadenopathy, JVD, or masses LUNGS: Breath sounds equal. No wheezes, and no crackles. +Coarse breath sounds at lower bases bilaterally. HEART: Regular rate and rhythm, normal S1 and S2, no murmurs, rubs or gallops ABDOMEN: Soft, nontender, normoactive bowel sounds. No guarding, no rebound. No masses EXTREMITIES: Normal range of motion, no edema. No clubbing or cyanosis. No cords, erythema, or tenderness NEUROLOGICAL: Cranial nerves II through XII grossly intact. Normal speech, normal gait SKIN: Warm, Dry, normal turgor, no rashes or lesions noted. <Alessandra Kenyon - Last Filed: 04/10/18 14:12> - Vital Signs Last Vital Signs Temp Pulse Resp BP Pulse Ox 100.2 F H 82 26 H 108/39 95 04/10/18 15:45 04/10/18 15:45 04/10/18 15:45 04/10/18 15:45 04/10/18 15:45 <Ligia Canchola - Last Filed: 04/10/18 16:25> - Vital Signs Last Vital Signs Temp Pulse Resp BP Pulse Ox 101.1 F H 92 H 30 H 163/64 91 L 04/10/18 13:50 04/10/18 13:50 04/10/18 13:50 04/10/18 13:50 04/10/18 13:50 <Willam Mcdonald - Last Filed: 04/10/18 17:08> Moderate Sedation - Procedure Monitoring Vital Signs: Vital Signs Temp Pulse Resp BP Pulse Ox 101.1 F H 92 H 30 H 163/64 91 L 04/10/18 13:50 04/10/18 13:50 04/10/18 13:50 04/10/18 13:50 04/10/18 13:50 <Alessandra Kenyon - Last Filed: 04/10/18 14:12> - Procedure Monitoring Vital Signs: Vital Signs Temp Pulse Resp BP Pulse Ox 100.2 F H 82 26 H 108/39 95 04/10/18 15:45 04/10/18 15:45 04/10/18 15:45 04/10/18 15:45 04/10/18 15:45 <Ligia Canchola - Last Filed: 04/10/18 16:25> - Procedure Monitoring Vital Signs: Vital Signs Temp Pulse Resp BP Pulse Ox 101.1 F H 92 H 30 H 163/64 91 L 04/10/18 13:50 04/10/18 13:50 04/10/18 13:50 04/10/18 13:50 04/10/18 13:50 <Willam Mcdonald - Last Filed: 04/10/18 17:08> Heart Score/ECG Review #1 ECG reviewed & interpreted by me at: 13:30 04/10/18 14:07 NSR 94, RBBB, LAFB, no std/pooja, QTC 460 msec <Willam Mcdonald - Last Filed: 04/10/18 17:08> ED Treatment Course - LABORATORY CBC & Chemistry Diagram: 04/10/18 14:21 04/10/18 14:16 - ADDITIONAL ORDERS Additional order review: Laboratory Results 04/10/18 04/10/18 04/10/18 14:16 14:16 14:16 PT with INR INR PTT (Actin FS) VBG pH 7.40 D POC VBG pCO2 41.3 D POC VBG pO2 60.8 H D Mixed VBG HCO3 24.8 Sodium 140 Potassium 4.0 Chloride 107 Carbon Dioxide 25 Anion Gap 8 BUN 40 H D Creatinine 1.3 Creat Clearance w eGFR 53.67 Random Glucose 63 L D Lactic Acid 1.6 Calcium 8.6 Phosphorus 2.2 L D Magnesium 1.7 L Total Bilirubin 0.3 AST 16 D ALT 16 Alkaline Phosphatase 73 D Total Protein 6.5 D Albumin 3.5 D 04/10/18 14:16 PT with INR 10.80 INR 0.96 PTT (Actin FS) 22.6 L VBG pH POC VBG pCO2 POC VBG pO2 Mixed VBG HCO3 Sodium Potassium Chloride Carbon Dioxide Anion Gap BUN Creatinine Creat Clearance w eGFR Random Glucose Lactic Acid Calcium Phosphorus Magnesium Total Bilirubin AST ALT Alkaline Phosphatase Total Protein Albumin 04/10/18 14:21 RBC 4.95 D MCV 88.5 MCHC 32.1 RDW 17.3 H MPV 8.3 Neutrophils % 78.6 D Lymphocytes % 9.6 D Monocytes % 10.9 H Eosinophils % 0.5 D Basophils % 0.4 - Medications Given in the ED: ED Medications Discontinued Medications Generic Name Dose Route Start Last Admin Trade Name Freq PRN Reason Stop Dose Admin Acetaminophen 650 mg 04/10/18 13:53 04/10/18 15:07 Tylenol - PO 04/10/18 13:54 Not Given ONCE ONE Acetaminophen 1,000 mg 04/10/18 14:12 04/10/18 14:25 Ofirmev Injection - IVPB 04/10/18 14:13 1,000 mg ONCE ONE Administration Piperacillin Sod/Tazobactam 50 mls @ 100 mls/hr 04/10/18 13:53 04/10/18 14:35 Sod 3.375 gm/ Dextrose IVPB 04/10/18 14:22 100 mls/hr ONCE ONE Administration Protocol Sodium Chloride 1,000 mls @ 1,000 mls/hr 04/10/18 13:56 04/10/18 14:35 Normal Saline - IV 04/10/18 14:55 1,000 mls/hr ASDIR STA Administration <Ligia Canchola - Last Filed: 04/10/18 16:25> - LABORATORY CBC & Chemistry Diagram: 04/10/18 14:21 04/10/18 14:16 - RADIOLOGY Radiology Studies Ordered: Category Date Time Status CHEST X-RAY PORTABLE* [RAD] Stat Radiology 04/10/18 13:48 Ordered <Willam Mcdonald - Last Filed: 04/10/18 17:08> Medical Decision Making - Medical Decision Making 04/10/18 16:[address] Palacios, who admits for patient's PCP, at [phone]. Awaiting callback. 04/10/18 16:[address] Cannon in the ICU who accepted the patient to ICU 04/10/18 16:[address] Palacios who requests [facility] admission tonight. <Ligia Canchola - Last Filed: 04/10/18 16:25> - Critical Care Time Total Critical Care Time (minutes): 45 Critical Care Statement: The care of this patient involved high complexity decision making to prevent further life threatening deterioration of the patient 's condition and/or to evaluate & treat vital organ system(s) failure or risk of failure. - Medical Decision Making 04/10/18 14:06 A portion of this note was documented by scribe services under my direction. I have reviewed the details of the note, within reason, and agree with the documentation with the following case summary and management plan written by me. Patient treated in the ED. Nursing notes are reviewed and incorporated into the medical decision-making. Vital signs reviewed. Peripheral IV access obtained by the nurse, laboratory studies are drawn and sent, reviewed and interpreted by myself. Vital Signs Temp Pulse Resp BP Pulse Ox 101.1 F H 92 H 30 H 163/64 91 L 04/10/18 13:50 04/10/18 13:50 04/10/18 13:50 04/10/18 13:50 04/10/18 13:50 78-year-old male with history of end-stage renal disease on dialysis on anti- rejection medications, diabetes, hypertension, coronary disease status post CABG presents with fever, nausea, vomiting. Patient reported since today of having the symptoms. Decreased appetite. Denies sick contacts or recent travels or bad foods. Denies abdominal pain. The patient is immunosupressed. Findings are concerning for sepsis, gastroenteritis or other GI pathology. Patient is noted to be somewhat hypoxic concerning for pneumonia. Sepsis protocol initiated including cultures. Empiric antibiotics, chest x-ray, labs and admission to the hospital. 04/10/18 17:05 CBC, BMP 04/10/18 14:21 04/10/18 14:16 CMP Sodium 140 mmol/L (136-145) 04/10/18 14:16 Potassium 4.0 mmol/L (3.5-5.1) 04/10/18 14:16 Chloride 107 mmol/L (98-107) 04/10/18 14:16 Carbon Dioxide 25 mmol/L (21-32) 04/10/18 14:16 Anion Gap 8 (8-16) 04/10/18 14:16 BUN 40 mg/dL (7-18) H D 04/10/18 14:16 Creatinine 1.3 mg/dL (0.7-1.3) 04/10/18 14:16 Creat Clearance w eGFR 53.67 (>60) 04/10/18 14:16 Random Glucose 63 mg/dL (74-106) L D 04/10/18 14:16 Lactic Acid 1.6 mmol/L (0.0-2.0) 04/10/18 14:16 Calcium 8.6 mg/dL (8.5-10.1) 04/10/18 14:16 Phosphorus 2.2 mg/dL (2.5-4.9) L D 04/10/18 14:16 Magnesium 1.7 mg/dL (1.8-2.4) L 04/10/18 14:16 Total Bilirubin 0.3 mg/dL (0.2-1.0) 04/10/18 14:16 AST 16 U/L (15-37) D 04/10/18 14:16 ALT 16 U/L (12-78) 04/10/18 14:16 Alkaline Phosphatase 73 U/L (45-117) D 04/10/18 14:16 Total Protein 6.5 g/dl (6.4-8.2) D 04/10/18 14:16 Albumin 3.5 g/dl (3.4-5.0) D 04/10/18 14:16 04/10/18 17:06 Chest xray reviewed. Left sided pneumonia. Pt here in ED also noting small amounts of hemoptysis. Given the persistent hypoxia (85% on 5L NC and small amounts of hemoptysis), case discussed with ICU and accepted (spoke to Dr. Patricia Cannon and accepted). Vanc and zosyn ordered. Case discussed with [facility] hospitalist who accepts patient Case discussed in detail with admitting physician including history, physical exam and ancillary studies. Admitting physician has assumed care for the patient, will follow all pending diagnostics and will complete the evaluation and treatment. <Willam Mcdonald - Last Filed: 04/10/18 17:08> *DC/Admit/Observation/Transfer - Attestations Scribe Attestion: 04/10/18 14:12 Documentation prepared by Alessandra Kenyon, acting as medical records assistant for Willam Mcdonald MD <Alessandra Kenyon - Last Filed: 04/10/18 14:12> <Ligia Canchola - Last Filed: 04/10/18 16:25> - Discharge Dispostion Decision to Admit order: Yes <Willam Mcdonald - Last Filed: 04/10/18 17:08> Diagnosis at time of Disposition: Hemoptysis Pneumonia Qualifiers: Pneumonia type: due to unspecified organism Laterality: unspecified laterality Lung location: unspecified part of lung Qualified Code(s): J18.9 - Pneumonia, unspecified organism - Discharge Dispostion Condition at time of disposition: Guarded - Referrals Referrals: Gt Villela MD [Primary Care Provider] - - Patient Instructions - Post Discharge Activity
[2018-04-10] MEDS ORDERED: ACETAMINOPHEN 1000 MG/100 ML VIAL (NON FORMULARY) IVPB ONE (14:12)
[2018-04-10] MEDS ORDERED: PIPERACILLIN/TAZOB 3.375 GM 3.375 GM/50 ML BAG IVPB ONE (14:12)
[2018-04-10] MEDS ORDERED: ACETAMINOPHEN INJECTION 100 ML IVPB ONE (14:12)
[2018-04-10 14:38] LABS: BASO % 0.4 % (0-2.0); EOS % 0.5 % (0-4.5); HEMATOCRIT 43.8 % (35.4-49); HEMOGLOBIN 14.1 GM/dL (11.7-16.9); LYMPH % 9.6 % (8-40); MCH 28.4 pg (25.7-33.7); MCHC 32.1 g/dl (32.0-35.9); MEAN CELL VOLUME 88.5 fl (80-96); MEAN PLT VOLUME 8.3 fl (7.5-11.1); MONO % 10.9 % (3.8-10.2); NEUT % 78.6 % (42.8-82.8); PLATELET COUNT 196 K/MM3 (134-434); RBC 4.95 M/mm3 (4.00-5.60); RDW 17.3 % (11.9-15.9); WHITE BLOOD COUNT 13.4 K/mm3 (4.0-10.0)
[2018-04-10 14:40] LABS: VENOUS PC02 41.3 mmHg (38-52); VENOUS PH 7.4 (7.32-7.42); VENOUS PO2 60.8 mmHg (28-48)
[2018-04-10 14:51] LABS: INR 0.96 (0.82-1.09); PROTHROMBIN TIME (PATIENT) 10.8 SEC (9.7-13.0)
[2018-04-10 14:54] LABS: ACTIVATED PTT 22.6 SECONDS (26.9-34.4)
[2018-04-10 15:05] LABS: ALBUMIN 3.5 g/dl (3.4-5.0); ALK PHOS 73 U/L (45-117); ANION GAP 8 (8-16); BILIRUBIN,TOTAL 0.3 mg/dL (0.2-1.0); BLOOD UREA NITROGEN 40 mg/dL (7-18); CALCIUM 8.6 mg/dL (8.5-10.1); CHLORIDE 107 mmol/L (98-107); CO2 25 mmol/L (21-32); CREATININE 1.3 mg/dL (0.7-1.3); GLUCOSE,RANDOM 63 mg/dL (74-106); PHOSPHOROUS 2.2 mg/dL (2.5-4.9); SGPT/ALT 16 U/L (12-78); SODIUM 140 mmol/L (136-145); TOT PROT 6.5 g/dl (6.4-8.2)
[2018-04-10 15:07] LABS: MAGNESIUM 1.7 mg/dL (1.8-2.4)
[2018-04-10 15:08] LABS: SGOT/AST 16 U/L (15-37)
[2018-04-10] MEDS ORDERED: VANCOMYCIN 1,000 MG in DEXTROSE 5%-WATER - 250 ML IVPB ONE (16:16)
[2018-04-10] MEDS ORDERED: DEXTROSE 50%-WATER - 25 GM/50 ML VIAL IVPUSH ONE (17:05)
[2018-04-10] MEDS ORDERED: VANCOMYCIN 1 GRAM (PRE-DOCKED) 1,000 MG/250 ML BAG IVPB ONE (17:09)
[2018-04-10] MEDS ORDERED: DEXTROSE 50%-WATER 25 GM/50 ML DISP.SYRIN ONE (17:09)
--- NOTE | 2018-04-10 18:04 | EKG ---
Test Reason : Blood Pressure : / mmHG Vent. Rate : 094 BPM Atrial Rate : 094 BPM P-R Int : 170 ms QRS Dur : 146 ms QT Int : 368 ms P-R-T Axes : 014 -62 032 degrees QTc Int : 460 ms NORMAL SINUS RHYTHM RIGHT BUNDLE BRANCH BLOCK LEFT ANTERIOR FASCICULAR BLOCK BIFASCICULAR BLOCK MODERATE VOLTAGE CRITERIA FOR LVH, MAY BE NORMAL VARIANT ABNORMAL ECG WHEN COMPARED WITH ECG OF 17-MAR-2018 15:34, NO SIGNIFICANT CHANGE WAS FOUND Confirmed by YUNIEL MCGOWAN MD ([id number]) on 04/10/2018 6:03:52 PM Referred By: Confirmed By:YUNIEL MCGOWAN MD
--- NOTE | 2018-04-10 18:17 | HP ---
CHIEF COMPLAINT: Shortness of breath, hemoptysis PCP: Dr. Villela HISTORY OF PRESENT ILLNESS: Patient is a 78 year old male with a significant past medical history of hypertension, diabetes mellitus, CA s/p stents, CABG, hyperlipidemia, IVC filter , DVT hx (left leg) and kidney transplant (2008) on immunosuppressive therapy. He presents to the ED today with c/o of subjective fevers, nausea and vomiting for about the past 3 days. Patient reports decreased appetite and poor PO intake. He denies any abdominal pain, diarrhea or constipation. States he is compliant with his home medications and has not missed any doses. He denies any chest pain, palpitations, headache or dizziness. Denies any CVAT tenderness. Patient denies dysuria, frequency, urgency or hematuria. Findings are concerning for possible rejection of his transplant kidney. Differential also includes sepsis, gastroenteritis and pneumonia. In the ED sepsis protocol was initiated, cultures pending. He was started on empiric broad spectrum antibiotics. A renal consult has been placed, he will be transferred to the ICU. ED reports patient had episodes of hemoptysis, will hold off on any anticoagulation or blood thinners. ER course was notable for: (1)Chest xray Left sided pneumonia. (2)hypoxia (85% on 5L NC and small amounts of hemoptysis), (3) Vanco and zosyn Recent Travel: none PAST MEDICAL HISTORY: PAST SURGICAL HISTORY: renal transplant, CABG Social History: Smoking: denies Alcohol: denies Drugs: denies Family History: Allergies No Known Drug Allergies Allergy (Verified 04/10/18 13:13) HOME MEDICATIONS: Home Medications Medication Instructions Recorded Amlodipine Besylate [Norvasc -] 10 mg PO DAILY 05/17/17 Aspirin [Jena Chewable Aspirin] 81 mg PO HS 05/17/17 Carvedilol [Coreg -] 25 mg PO BID 05/17/17 Duloxetine HCl [Cymbalta] 20 mg PO BID 05/17/17 Tamsulosin HCl [Flomax] 0.4 mg PO HS 05/17/17 predniSONE [Deltasone -] 5 mg PO DAILY 05/17/17 Acetaminophen [Tylenol .Regular 650 mg PO Q4H PRN tablet 11/29/17 Strength -] Tacrolimus 1 mg PO BID 11/29/17 Docusate Sodium [Colace -] 100 mg PO BID PRN capsule 01/23/18 Mycophenolate Sodium [Mycophenolic 360 mg PO BID tablet. 01/23/18 Acid] hydrALAZINE HCL [Apresoline -] 25 mg PO BID tablet 01/23/18 Albuterol 2.5/Ipratropium 0.5 1 amp NEB QID 02/08/18 [Duoneb -] Atorvastatin Ca [Lipitor] 40 mg PO HS #30 tablet 03/23/18 Insulin Sliding Scale [Novolog 1 vial SQ ACHS #1 units 03/23/18 Vial Sliding Scale -] PHYSICAL EXAMINATION Vital Signs - 24 hr 04/10/18 04/10/18 04/10/18 13:13 13:30 13:50 Temperature 101.1 F H Pulse Rate 108 H Pulse Rate [ 92 H Radial] Respiratory 26 H 30 H Rate Blood Pressure 122/107 Blood Pressure 163/64 [Left Arm] O2 Sat by Pulse 87 L 94 L 91 L Oximetry (%) 04/10/18 04/10/18 04/10/18 14:40 15:27 15:45 Temperature 100.2 F H Pulse Rate Pulse Rate [ 79 82 82 Radial] Respiratory 24 26 H 26 H Rate Blood Pressure Blood Pressure 147/41 134/33 108/39 [Left Arm] O2 Sat by Pulse 95 92 L 95 Oximetry (%) GENERAL: Awake, alert, and fully oriented, in mild respiratory distress. HEAD: Normal with no signs of trauma. EYES: Pupils equal, round and reactive to light, extraocular movements intact, sclera anicteric, conjunctiva clear. No lid lag. EARS, NOSE, THROAT: Ears normal, nares patent, oropharynx clear without exudates. Moist mucous membranes. NECK: Normal range of motion, supple without lymphadenopathy, JVD, or masses. LUNGS: diminished breath sounds bilaterally, not wheezing, on 5 liters of nasal cannula, sats 90s, patient states he is home oxygen dependent HEART: Regular rate and rhythm ABDOMEN: distended, bowel sounds present, not tender UPPER EXTREMITIES: No peripheral edema. LOWER EXTREMITIES: No peripheral edema. NEUROLOGICAL: Normal speech. PSYCHIATRIC: Cooperative. Good eye contact. Appropriate mood and affect. SKIN: Warm, dry, normal turgor, no rashes or lesions noted, normal capillary refill. Laboratory Results - last 24 hr 04/10/18 04/10/18 04/10/18 14:16 14:16 14:16 WBC RBC Hgb Hct MCV MCH MCHC RDW Plt Count MPV Neutrophils % Lymphocytes % Monocytes % Eosinophils % Basophils % Nucleated RBC % PT with INR 10.80 INR 0.96 PTT (Actin FS) 22.6 L VBG pH 7.40 D POC VBG pCO2 41.3 D POC VBG pO2 60.8 H D Mixed VBG HCO3 24.8 Sodium 140 Potassium 4.0 Chloride 107 Carbon Dioxide 25 Anion Gap 8 BUN 40 H D Creatinine 1.3 Creat Clearance w eGFR 53.67 Random Glucose 63 L D Lactic Acid Calcium 8.6 Phosphorus 2.2 L D Magnesium 1.7 L Total Bilirubin 0.3 AST 16 D ALT 16 Alkaline Phosphatase 73 D Total Protein 6.5 D Albumin 3.5 D 04/10/18 04/10/18 14:16 14:21 WBC 13.4 H D RBC 4.95 D Hgb 14.1 D Hct 43.8 D MCV 88.5 MCH 28.4 MCHC 32.1 RDW 17.3 H Plt Count 196 MPV 8.3 Neutrophils % 78.6 D Lymphocytes % 9.6 D Monocytes % 10.9 H Eosinophils % 0.5 D Basophils % 0.4 Nucleated RBC % 0 PT with INR INR PTT (Actin FS) VBG pH POC VBG pCO2 POC VBG pO2 Mixed VBG HCO3 Sodium Potassium Chloride Carbon Dioxide Anion Gap BUN Creatinine Creat Clearance w eGFR Random Glucose Lactic Acid 1.6 Calcium Phosphorus Magnesium Total Bilirubin AST ALT Alkaline Phosphatase Total Protein Albumin ASSESSMENT/PLAN: Patient is a 78 year old male with a significant past medical history of hypertension, diabetes mellitus, CA s/p stents, CABG, hyperlipidemia, IVC filter , DVT hx (left leg) and kidney transplant (2008) on immunosuppressive therapy. He presents to the ED today with c/o of subjective fevers, nausea and vomiting for about the past 3 days. Patient reports decreased appetite and poor PO intake. He denies any abdominal pain, diarrhea or constipation. States he is compliant with his home medications and has not missed any doses. He denies any chest pain, palpitations, headache or dizziness. Denies any CVAT tenderness. Patient denies dysuria, frequency, urgency or hematuria. Findings are concerning for possible rejection of his transplant kidney. Differential also includes sepsis, gastroenteritis and pneumonia. In the ED sepsis protocol was initiated, cultures pending. He was started on empiric broad spectrum antibiotics. A renal consult has been placed, he will be transferred to the ICU. ED reports patient had episodes of hemoptysis, will hold off on any anticoagulation or blood thinners. ID: Sepsis in the setting of immunocompromised patient Rule out pneumonia vs other source of sepsis Lactic acid within normal limits, febrile with elevated WBC Given Vanco and Zosyn in the ED, will give one dose of Zosyn tonight Blood cultures pending ID has been consulted GI: Nausea/vomiting, poor PO intake, with fevers Concern for kidney rejection CT abd and pelvis ordered Renal consulted Creat stable Avoid nephrotoxins Continue anti rejection meds: Prednisone 5mg, Prograf (tacrolimus) 1 mg BID, Mycophenolate 360mg BID Cardiology Rule out ACS Trend trops Echo Cardiac monitoring CABG hx with CA s/p stents Pulm: Hypoxia, acute Hx of DVT Consider CTA if kidney function stable and cleared by renal maintain oxygen saturations above 90% Duonebs Hemoptysis, acute CT chest pending Hold anticoagulation, blood thinning meds Pulm consulted Endocrine Diabetes, chronic BGMs, sliding scale F.E.N. Fluids: PO adequate Electrolytes: magnesium repleted Nutrion: trail of renal diet, consider clear liquids of nausea/vomiting not resolved. Prophy: DVT: hemoptysis today, hold anticoagulation GI: Protonix Disposition. full code Visit type - Emergency Visit Emergency Visit: Yes ED Registration Date: 04/10/18 Care time: The patient presented to the Emergency Department on the above date and was hospitalized for further evaluation of their emergent condition. - New Patient This patient is new to me today: Yes Date on this admission: 04/10/18 - Critical Care Critical Care patient: Yes Total Critical Care Time (in minutes): 60 Critical Care Statement: The care of this patient involved high complexity decision making to prevent further life threatening deterioration of the patient 's condition and/or to evaluate & treat vital organ system(s) failure or risk of failure. Hospitalist Screening - Colonoscopy Questionnaire Colonoscopy Questionnaire: Colonoscopy Questionnaire - Patient: 50 - 75 years old and never had a screening colonoscopy: Unknown History of colon or rectal polyps, or CA: Unknown History of IBD, Crohn's disease or UC: Unknown History of abdominal radiation therapy as a child: Unknown - Relative: 1 with colon or rectal CA, or polyps at age 60 or younger: Unknown Colon or rectal CA diagnosed at age 45 or younger: Unknown Multiple relatives with colon or rectal CA: Unknown - Outcome: Screening Result: Negative Screen
[2018-04-10] MEDS ORDERED: DOCUSATE SODIUM 100 MG CAPSULE (FP) PO PRN (18:20)
[2018-04-10] MEDS ORDERED: ACETAMINOPHEN 325 MG TABLET (FP) PO PRN (18:20)
[2018-04-10] MEDS ORDERED: MAGNESIUM SULF 50% (8.12 MEQ/2 ML-1 GM VIAL) IVPB ONE (18:32)
[2018-04-10] MEDS ORDERED: ALBUTEROL SO4 2.5/IPRATROPIUM 0.5 INH SOL 3 ML VIAL.NEB. NEB ONE (20:08)
[2018-04-10] MEDS: ALBUTEROL SO4 2.5/IPRATROPIUM 0.5 INH SOL 3 ML VIAL.NEB. NEB SCH (20:30)
[2018-04-10] MEDS ORDERED: PIPERACILLIN/TAZOB 2.25 GM 2.25 GM in DEXTROSE 5%-WATER - 50 ML IVPB ONE (22:00)
[2018-04-10] MEDS ORDERED: ASPIRIN 81 MG CHEWABLE TABLETS PO SCH (22:00)
[2018-04-11] MEDS: TACROLIMUS ANHYDROUS 1 MG CAPSULE PO SCH ×2 (00:15→11:47)
[2018-04-11] MEDS: hydrALAZINE HCL 25 MG TABLET (FP) PO SCH ×2 (00:15→11:46)
[2018-04-11] MEDS: ATORVASTATIN CA 40 MG TABLET (FP) PO SCH (00:15)
[2018-04-11] MEDS: DULoxetine HCL 20 MG CAPSULE.DR (FP) PO SCH ×2 (00:15→11:46)
[2018-04-11] MEDS: CARVEDILOL 25 MG TABLET (FP) PO SCH ×2 (00:15→11:46)
[2018-04-11] MEDS: MYCOPHENOLATE SODIUM 360 MG TABLET.DR PO SCH ×2 (00:15→11:46)
[2018-04-11 00:22] LABS: URINE APPEARANCE CLEAR; URINE BILIRUBIN NEGATIVE (<2.0 mg/dL); URINE COLOR LTYELLOW; URINE GLUCOSE (UA) NEGATIVE (NEGATIVE); URINE KETONE NEGATIVE (NEGATIVE); URINE LEUK ESTERASE NEGATIVE (NEGATIVE); URINE NITRITE NEGATIVE (NEGATIVE); URINE PROTEIN NEGATIVE (NEGATIVE); URINE UROBILINOGEN NEGATIVE mg/dL (0.2-1.0)
[2018-04-11] MEDS: INSULIN SLIDING SCALE (NOVOLOG) 1 VIAL SQ SCH ×4 (01:05→17:39)
[2018-04-11] MEDS: ALBUTEROL SO4 2.5/IPRATROPIUM 0.5 INH SOL 3 ML VIAL.NEB. NEB SCH ×4 (08:30→20:17)
--- NOTE | 2018-04-11 08:30 | PN ---
Progress Note, Physician History of Present Illness: Patient is a 78 year old male with a significant past medical history of hypertension, diabetes mellitus, [place] s/p stents, CABG, hyperlipidemia, IVC filter , DVT hx (left leg) and kidney transplant (2008) on immunosuppressive therapy. He presents to the ED today with c/o of subjective fevers, nausea and vomiting for about the past 3 days. Patient reports decreased appetite and poor PO intake. He denies any abdominal pain, diarrhea or constipation. States he is compliant with his home medications and has not missed any doses. He denies any chest pain, palpitations, headache or dizziness. Denies any CVAT tenderness. Patient denies dysuria, frequency, urgency or hematuria. Findings are concerning for possible rejection of his transplant kidney. Differential also includes sepsis, gastroenteritis and pneumonia. In the ED sepsis protocol was initiated, cultures pending. He was started on empiric broad spectrum antibiotics. A renal consult has been placed, he will be transferred to the ICU. ED reports patient had episodes of hemoptysis, will hold off on any anticoagulation or blood thinners. - Current Medication List Current Medications: Active Medications Acetaminophen (Tylenol -) 650 mg PO Q4H PRN PRN Reason: FEVER Albuterol/Ipratropium (Duoneb -) 1 amp NEB RQID [facility] Last Admin: 04/10/18 20:30 Dose: 1 amp Amlodipine Besylate (Norvasc -) 10 mg PO DAILY [facility] Atorvastatin Calcium (Lipitor -) 40 mg PO HS [facility] Last Admin: 04/11/18 00:15 Dose: 40 mg Carvedilol (Coreg -) 25 mg PO BID [facility] Last Admin: 04/11/18 00:15 Dose: 25 mg Chlorhexidine Gluconate (Hibiclens For Decolonization -) 1 applic TP [facility] Docusate Sodium (Colace -) 100 mg PO BID PRN PRN Reason: CONSTIPATION Duloxetine HCl (Cymbalta -) 20 mg PO BID [facility] Last Admin: 04/11/18 00:15 Dose: 20 mg Hydralazine HCl (Apresoline -) 25 mg PO BID [facility] Last Admin: 04/11/18 00:15 Dose: 25 mg Insulin Aspart (Novolog Vial Sliding Scale -) 1 vial SQ ACHS [facility] PRN Reason: Protocol Last Admin: 04/11/18 07:32 Dose: Not Given Mupirocin (Bactroban Ointment (For Decolonization) -) 1 applic NS BID [facility] Stop: 04/16/18 09:59 Mycophenolate Sodium (Mycophenolic Acid) 360 mg PO BID [facility] Last Admin: 04/11/18 00:15 Dose: 360 mg Prednisone (Deltasone -) 5 mg PO DAILY [facility] Tacrolimus (Prograf) 1 mg PO BID [facility] Last Admin: 04/11/18 00:15 Dose: 1 mg - Objective Vital Signs: Vital Signs Temperature 98.0 F 04/10/18 20:39 Pulse Rate 75 04/11/18 06:48 Respiratory Rate 16 04/11/18 06:48 Blood Pressure 134/45 04/11/18 06:48 O2 Sat by Pulse Oximetry (%) 94 L 04/11/18 06:48 Labs: INR, PTT INR 0.96 (0.82-1.09) 04/10/18 14:16 Problem List - Problems (1) Vomiting Assessment/Plan: GI: Nausea/vomiting, poor PO intake, with fevers Concern for kidney rejection CT abd and pelvis ordered Renal consulted Creat stable Avoid nephrotoxins Continue anti rejection meds: Prednisone 5mg, Prograf (tacrolimus) 1 mg BID, Mycophenolate 360mg BID -PPI Code(s): R11.10 - VOMITING, UNSPECIFIED (2) Hemoptysis Assessment/Plan: Hypoxia, acute Hx of DVT Consider CTA if kidney function stable and cleared by renal maintain oxygen saturations above 90% Duonebs CT chest pending Hold anticoagulation, blood thinning meds Pulm consulted Code(s): R04.2 - HEMOPTYSIS (3) PNA (pneumonia) Assessment/Plan: - Above Code(s): J18.9 - PNEUMONIA, UNSPECIFIED ORGANISM Qualifiers: Pneumonia type: due to unspecified organism Laterality: unspecified laterality Lung location: unspecified part of lung Qualified Code(s): J18.9 - Pneumonia, unspecified organism (4) DM2 (diabetes mellitus, type 2) Assessment/Plan: Diabetes, chronic BGMs, sliding scale Fluids: PO adequate Electrolytes: magnesium repleted Nutrion: trail of renal diet, consider clear liquids of nausea/vomiting not resolved. Code(s): E11.9 - TYPE 2 DIABETES MELLITUS WITHOUT COMPLICATIONS Qualifiers: Diabetes mellitus surgeon assistant insulin use: with surgeon assistant use (5) Renal transplant disorder Assessment/Plan: same meds Code(s): T86.10 - UNSPECIFIED COMPLICATION OF KIDNEY TRANSPLANT (6) Sepsis Assessment/Plan: Sepsis in the setting of immunocompromised patient Rule out pneumonia vs other source of sepsis Lactic acid within normal limits, febrile with elevated WBC Given Vanco and Zosyn in the ED, will give one dose of Zosyn tonight Blood cultures pending ID has been consulted Code(s): A41.9 - SEPSIS, UNSPECIFIED ORGANISM (7) Hx of CABG Assessment/Plan: Rule out ACS Trend trops Echo Cardiac monitoring CABG hx with VA s/p stents Code(s): Z95.1 - PRESENCE OF AORTOCORONARY BYPASS GRAFT
[2018-04-11 08:33] LABS: BASO % 0.3 % (0-2.0); EOS % 1.2 % (0-4.5); HEMATOCRIT 36.4 % (35.4-49); HEMOGLOBIN 11.8 GM/dL (11.7-16.9); LYMPH % 15.8 % (8-40); MCHC 32.6 g/dl (32.0-35.9); MEAN PLT VOLUME 8.2 fl (7.5-11.1); MONO % 7.4 % (3.8-10.2); NEUT % 75.3 % (42.8-82.8); PLATELET COUNT 138 K/MM3 (134-434); RBC 4.09 M/mm3 (4.00-5.60); WHITE BLOOD COUNT 14.2 K/mm3 (4.0-10.0)
[2018-04-11 09:03] LABS: CHLORIDE 107 mmol/L (98-107); SODIUM 138 mmol/L (136-145)
[2018-04-11 09:55] LABS: INR 1.1 (0.82-1.09); PROTHROMBIN TIME (PATIENT) 12.4 SEC (9.7-13.0)
[2018-04-11 10:15] LABS: CHOLESTEROL 116 mg/dL (50-200); HDL CHOLESTEROL 52 mg/dL (40-60); TRIGLYCERIDES 93 mg/dL (35-160)
[2018-04-11 10:24] LABS: ALBUMIN 2.9 g/dl (3.4-5.0); ALK PHOS 60 U/L (45-117); ANION GAP 7 (8-16); BILIRUBIN,TOTAL 0.5 mg/dL (0.2-1.0); BLOOD UREA NITROGEN 37 mg/dL (7-18); CALCIUM 8.2 mg/dL (8.5-10.1); CO2 24 mmol/L (21-32); CREATININE 1.2 mg/dL (0.7-1.3); GLUCOSE,RANDOM 119 mg/dL (74-106); MAGNESIUM 1.8 mg/dL (1.8-2.4); SGOT/AST 10 U/L (15-37); SGPT/ALT 13 U/L (12-78); TOT PROT 5.5 g/dl (6.4-8.2)
[2018-04-11] MEDS: predniSONE 5 MG TABLET (UD) PO SCH (11:47)
[2018-04-11] MEDS: amLODIPine BESYLATE 10 MG TABLET (FP) PO SCH (11:47)
[2018-04-11] MEDS: MUPIROCIN 2% TOPICAL OINTMENT FOR DECOLONIZATION NS SCH (11:47)
[2018-04-11] MEDS: PANTOPRAZOLE SODIUM 40 MG VIAL IVPUSH SCH (11:48)
[2018-04-11] MEDS ORDERED: amLODIPine BESYLATE 5 MG TABLET (FP) ONE (11:56)
--- NOTE | 2018-04-11 12:04 | CON.CARD ---
Consult Consult Specialty:: Cardiology Referred by:: Dr. 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 Patient reports associated decreased PO intake. Patient denies any abdominal pain, diarrhea or constipation. Upon evaluation, patients vital signs significant for 101.1 oral temperature. Pt seen and examined in the ER in nad. states he is feeling better since coming in. denies any dizziness, syncope, or near syncope. no chest pain, sob, palpitations, pnd, orthopnea, or LE edema. previous admission Echocardiogram shows normal LV systolic function. TP negative. - History Source History Provided By: Patient, Medical Record Limitations to Obtaining History: No Limitations - Past Medical History Cardio/Vascular: Yes: CAD, HTN, Hyperlipdemia, NM, Other Renal/: Yes: Other (S/P Kidney tranplant 2008. 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) Endocrine: Yes: Diabetes Mellitus - Past Surgical History Past Surgical History: Yes: AV Fistula/Graft (right upper arm, non working), CABG, Kidney Transplant (right 2008) - Alcohol/Substance Use Hx Alcohol Use: No History of Substance Use: reports: None - Smoking History Smoking history: Never smoked Have you smoked in the past 12 months: No Aproximately how many cigarettes per day: 0 - Social History Usual Living Arrangement: Alone ADL: Support Services History of Recent Travel: No Home Medications - Allergies Allergies/Adverse Reactions: Allergies Allergy/AdvReac Type Severity Reaction Status Date / Time No Known Drug Allergies Allergy Verified 04/10/18 13:13 - Home Medications Home Medications: Ambulatory Orders Amlodipine Besylate [Norvasc -] 10 mg PO DAILY 05/17/17 Aspirin [Jena Chewable Aspirin] 81 mg PO HS 05/17/17 Carvedilol [Coreg -] 25 mg PO BID 05/17/17 Duloxetine HCl [Cymbalta] 20 mg PO BID 05/17/17 Tamsulosin HCl [Flomax] 0.4 mg PO HS 05/17/17 predniSONE [Deltasone -] 5 mg PO DAILY 05/17/17 Acetaminophen [Tylenol .Regular Strength -] 650 mg PO Q4H PRN tablet 11/29/17 Tacrolimus 1 mg PO BID 11/29/17 Docusate Sodium [Colace -] 100 mg PO BID PRN capsule 01/23/18 Mycophenolate Sodium [Mycophenolic Acid] 360 mg PO BID tablet. 01/23/18 hydrALAZINE HCL [Apresoline -] 25 mg PO BID tablet 01/23/18 Albuterol 2.5/Ipratropium 0.5 [Duoneb -] 1 amp NEB QID 02/08/18 Atorvastatin Ca [Lipitor] 40 mg PO HS #30 tablet 03/23/18 Insulin Sliding Scale [Novolog Vial Sliding Scale -] 1 vial SQ ACHS #1 units 02/05 Family Disease History - Family Disease History Family History: Denies Review of Systems - Review of Systems Constitutional: reports: Chills, Fever. denies: No Symptoms, Diaphoresis, Lethargy, Loss of Appetite, Malaise, Night Sweats, Unintentional Wgt. Loss, Weakness, Other Eyes: denies: No Symptoms, Blind Spots, Blurred Vision, Double Vision, Eye Pain , Floaters, Photophobia, Recent Change in Vision, Other HENT: denies: No Symptoms, Difficult Swallowing, Ear Discharge, Ear Pain, Epistaxis, Gingival Bleeding, Hearing Loss, Mouth Swelling, Nasal Congestion, Ocular Prosthesis, Throat Pain, Toothache, Ringing in Ears, Other Neck: denies: No Symptoms, Decreased ROM, Lumps, Pain on Movement, Stiffness, Swollen Glands, Tenderness, Other Cardiovascular: denies: No Symptoms, Chest Pain, Edema, Palpitations, Shortness of Breath, Other Respiratory: reports: Cough. denies: No Symptoms, Exercise Intolerance, Hemoptysis, Orthopnea, PND, Snoring, SOB, SOB on Exertion, Wheezing, Other Gastrointestinal: denies: No Symptoms, Abdominal Pain, Bloating, Constipation, Diarrhea, Dysphagia, Indigestion, Melena, Nausea, Rectal Bleeding, Vomiting, Vomiting Blood, Other Genitourinary: denies: No Symptoms, Burning, Discharge, Dysuria, Flank Pain, Frequency, Hematuria, Incontinence, Lesions, Menses, Pain, Testicular Mass, Testicular Pain, Testicular Swelling, Urgency, Vaginal Bleeding, Other Breasts: denies: No Symptoms Reported, See HPI, Breast Implants, Discharge from Nipple, Lumps, Pain, Skin Changes, Other Musculoskeletal: denies: No Symptoms, Back Pain, Crepitus, Decreased ROM, Extremity Pain, Joint Pain, Joint Swelling, Muscle Pain, Muscle Cramps, Muscle Weakness, Other Integumentary: denies: No Symptoms, Blister, Bruising, Change in Color, Eczema, Erythema, Incision, Lesions, Lump, Pallor, Pruritis, Rash, Wound, Other Neurological: denies: No Symptoms, Change in LOC, Change in Speech, Confusion, Dizziness, Headache, Incoordination, Numbness, Parasthesia, Pre-Existing Deficit , Seizure, Syncope, Tremors, Unsteady Gait, Weakness, Other Endocrine: denies: No Symptoms, Excessive Sweating, Flushing, Increased Hunger, Increased Thirst, Intolerance to Cold, Intolerance to Heat, Unexplained Weight Gain, Unexplained Weight Loss, Other Hematology/Lymphatic: denies: No Symptoms, Easily Bruised, Excessive Bleeding, Swollen Glands, Other Psychiatric: denies: No Symptoms, Altered Sleep Pattern, Anxiety, Depression, Hallucinations, Panic, Paranoia, Suicidal, Other - Risk Factors Known Risk Factors: Yes: Age, Hypercholesterolemia, Hypertension, Prior NM /Emb Stroke Vital Signs: Vital Signs Temperature 98.0 F 04/10/18 20:39 Pulse Rate 75 04/11/18 06:48 Respiratory Rate 16 04/11/18 06:48 Blood Pressure 134/45 04/11/18 06:48 O2 Sat by Pulse Oximetry (%) 94 L 04/11/18 06:48 Constitutional: Yes: Well Nourished, No Distress, Calm Eyes: Yes: WNL, Conjunctiva Clear, EOM Intact HENT: Yes: WNL, Atraumatic, Normocephalic Neck: Yes: WNL, Supple, Trachea Midline Respiratory: Yes: WNL, Regular, CTA Bilaterally. No: Rales, Rhonchi, Wheezes Gastrointestinal: Yes: WNL, Normal Bowel Sounds, Soft. No: Distention, Tenderness Renal/: Yes: WNL Cardiovascular: Yes: WNL, Regular Rate and Rhythm. No: Bradycardia, Tachycardia , Pulse Irregular, Gallop, Rub, Varicosities JVD: No Carotid Bruit: No PMI: Non-Displaced Heart Sounds: Yes: S1, S2. No: Split S2, S3, S4, Clicks, Gallop, Rub, Bruit Murmur: No: Systolic Murmur, Diastolic Murmur Musculoskeletal: Yes: WNL Extremities: Yes: WNL Edema: No Peripheral Pulses WNL: Yes Peripheral Pulses: 2+ Left Doralis Pedis, 2+ Right Dorsalis Pedis Integumentary: Yes: WNL Neurological: Yes: WNL, Alert, Oriented ...Motor Strength: WNL Psychiatric: Yes: WNL, Alert, Oriented - Other Data Labs, Other Data: CBC, BMP 04/11/18 07:05 04/11/18 07:00 INR, PTT INR 1.10 (0.82-1.09) 04/11/18 07:05 Troponin, BNP 04/10/18 04/11/18 20:55 07:17 Troponin I 0.02 0.02 Troponin, BNP 04/10/18 04/11/18 20:55 07:17 Troponin I 0.02 0.02 ekg-NSR 94bpm, rbbb, lafb, mod LVH Echo: Report Reviewed Prior Cardiac Procedures: CABG, PTCA with Stent Imaging - Results Chest X-ray: Report Reviewed, Image Reviewed EKG: Report Reviewed, Image Reviewed Other: Report Reviewed, Image Reviewed Assessment/Plan 77 M history of CAD with stents and CABG with normal LV function, DVT sp IVC filter, 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 Patient reports associated decreased PO intake. Patient denies any abdominal pain, diarrhea or constipation. Upon evaluation, patients vital signs significant for 101.1 oral temperature. Pt seen and examined in the ER in nad. states he is feeling better since coming in. denies any dizziness, syncope, or near syncope. no chest pain, sob, palpitations, pnd, orthopnea, or LE edema. previous admission Echocardiogram shows normal LV systolic function. TP negative. SOB/cough/fever chills-unlikely ACS, possible PNA, sepsis -cardiac enzymes wnl -no sig change on EKG -recent echos were normal -no sign of decompensated CHF -no additional cardiac work up needed at this time. Please call with any additional questions.
[2018-04-11] MEDS: PIPERACILLIN/TAZOB 3.375 GM 3.375 GM in DEXTROSE 5%-WATER - 50 ML IVPB SCH ×2 (12:11→17:40)
--- NOTE | 2018-04-11 12:11 | CONSULT ---
Consult Consult Specialty:: PULMONARY/CCM Referred by:: Dr. Mcdonald Reason for Consultation:: ICU eval - History of Present Illness Chief Complaint: hemoptysis History of Present Illness: 78yo male with h/o HTN, DM, hyperlipidemia, CAD s/p CABG, h/o DVT s/p IVC filter , h/o renal transplant who presents with fevers, nausea and vomiting. Reports vomiting with some blood. No shortness of breath or chest pain. Was noted to have episode of hemoptysis and hypoxic to 85% in the ER. Left sided infiltrate seen on CXR confirmed by CT chest. - History Source History Provided By: Patient, Medical Record Limitations to Obtaining History: Language Barrier - Past Medical History Cardio/Vascular: Yes: CAD, HTN, [place], Other Renal/: Yes: Other (S/P Kidney tranplant 2008. 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) Endocrine: Yes: Diabetes Mellitus - Past Surgical History Past Surgical History: Yes: AV Fistula/Graft (right upper arm, non working), CABG, Kidney Transplant (right 2008) - Alcohol/Substance Use Hx Alcohol Use: No History of Substance Use: reports: None - Smoking History Smoking history: Never smoked Have you smoked in the past 12 months: No Aproximately how many cigarettes per day: 0 - Social History Usual Living Arrangement: Alone ADL: Support Services History of Recent Travel: No Home Medications - Allergies Allergies/Adverse Reactions: Allergies Allergy/AdvReac Type Severity Reaction Status Date / Time No Known Drug Allergies Allergy Verified 04/10/18 13:13 - Home Medications Home Medications: Ambulatory Orders Amlodipine Besylate [Norvasc -] 10 mg PO DAILY 05/17/17 Aspirin [Jena Chewable Aspirin] 81 mg PO HS 05/17/17 Carvedilol [Coreg -] 25 mg PO BID 05/17/17 Duloxetine HCl [Cymbalta] 20 mg PO BID 05/17/17 Tamsulosin HCl [Flomax] 0.4 mg PO HS 05/17/17 predniSONE [Deltasone -] 5 mg PO DAILY 05/17/17 Acetaminophen [Tylenol .Regular Strength -] 650 mg PO Q4H PRN tablet 11/29/17 Tacrolimus 1 mg PO BID 11/29/17 Docusate Sodium [Colace -] 100 mg PO BID PRN capsule 01/23/18 Mycophenolate Sodium [Mycophenolic Acid] 360 mg PO BID tablet. 01/23/18 hydrALAZINE HCL [Apresoline -] 25 mg PO BID tablet 01/23/18 Albuterol 2.5/Ipratropium 0.5 [Duoneb -] 1 amp NEB QID 02/08/18 Atorvastatin Ca [Lipitor] 40 mg PO HS #30 tablet 03/23/18 Insulin Sliding Scale [Novolog Vial Sliding Scale -] 1 vial SQ ACHS #1 units 02/05 Review of Systems - Review of Systems Constitutional: reports: Chills, Fever, Malaise, Weakness Eyes: denies: Recent Change in Vision HENT: denies: Nasal Congestion, Throat Pain Neck: denies: Stiffness, Tenderness Cardiovascular: denies: Chest Pain, Palpitations, Shortness of Breath Respiratory: reports: Cough, Hemoptysis. denies: SOB, SOB on Exertion Gastrointestinal: reports: Nausea, Vomiting. denies: Abdominal Pain Genitourinary: denies: Dysuria, Hematuria Neurological: denies: Dizziness, Headache Physical Exam Vital Signs: Vital Signs Temperature 98.0 F 04/10/18 20:39 Pulse Rate 75 04/11/18 06:48 Respiratory Rate 16 04/11/18 06:48 Blood Pressure 134/45 04/11/18 06:48 O2 Sat by Pulse Oximetry (%) 94 L 04/11/18 06:48 Constitutional: Yes: Calm Eyes: Yes: Conjunctiva Clear, EOM Intact HENT: Yes: Atraumatic, Normocephalic Neck: Yes: Supple, Trachea Midline Cardiovascular: Yes: Regular Rate and Rhythm Respiratory: Yes: Rales (left sided) Gastrointestinal: Yes: Normal Bowel Sounds, Soft. No: Tenderness Edema: No Neurological: Yes: Alert, Oriented Labs: CBC, BMP 04/11/18 07:05 04/11/18 07:00 Imaging - Results Chest X-ray: Report Reviewed, Image Reviewed Cat Scan: Report Reviewed, Image Reviewed Assessment/Plan Pneumonia Sepsis Hypoxia resolved r/o GI Bleed Anemia HTN DM CAD s/p CABG h/o DVT s/p IVC filter h/o renal transplant - IV antibiotics - f/u cultures - IVF - monitor urine output, creatinine - O2 to keep SpO2 >90% - continue immunosuppressants - check tacro level - GI eval - monitor H/H - protonix - appears to have clinically improved, does not require ICU monitoring at this time - please call if any clinical changes Thank you for this consult Deejay Fischer MD
[2018-04-11] MEDS ORDERED: PIPERACILLIN/TAZOB 3.375 GM 3.375 GM/50 ML BAG IVPB ONE ×2 (12:24→17:57)
[2018-04-11] MEDS ORDERED: INSULIN (NOVOLOG) ASPART 100 UNITS/ML 10ML VIAL ONE ×2 (12:26→17:56)
--- NOTE | 2018-04-11 13:40 | CON.ID ---
Consult Consult Specialty:: infectious disease Referred by:: shayna - History of Present Illness Chief Complaint: fevers, nausea vomiting History of Present Illness: 78 year old man PMH CAD, kidney transplant 2008, admitted with fevers, nausea and vomiting for 3 days from home apparently had hemoptysis received vanco/zosyn in ED currently alert, no complaints denies fevers or chills reports he feels great and all his symptoms ahve resolved chest ct with right sided infiltrate - History Source History Provided By: Patient, Medical Record Limitations to Obtaining History: Clinical Condition - Past Medical History Cardio/Vascular: Yes: CAD, HTN, [place], Other Renal/: Yes: Other (S/P Kidney tranplant 2008. 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, osteomyelitis of his finger) Endocrine: Yes: Diabetes Mellitus - Past Surgical History Past Surgical History: Yes: AV Fistula/Graft (right upper arm, non working), CABG, Kidney Transplant (right 2008) - Alcohol/Substance Use Hx Alcohol Use: No History of Substance Use: reports: None - Smoking History Smoking history: Never smoked Have you smoked in the past 12 months: No Aproximately how many cigarettes per day: 0 - Social History Usual Living Arrangement: Alone ADL: Support Services History of Recent Travel: No Home Medications - Allergies Allergies/Adverse Reactions: Allergies Allergy/AdvReac Type Severity Reaction Status Date / Time No Known Drug Allergies Allergy Verified 04/10/18 13:13 - Home Medications Home Medications: Ambulatory Orders Amlodipine Besylate [Norvasc -] 10 mg PO DAILY 05/17/17 Aspirin [Jena Chewable Aspirin] 81 mg PO HS 05/17/17 Carvedilol [Coreg -] 25 mg PO BID 05/17/17 Duloxetine HCl [Cymbalta] 20 mg PO BID 05/17/17 Tamsulosin HCl [Flomax] 0.4 mg PO HS 05/17/17 predniSONE [Deltasone -] 5 mg PO DAILY 05/17/17 Acetaminophen [Tylenol .Regular Strength -] 650 mg PO Q4H PRN tablet 11/29/17 Tacrolimus 1 mg PO BID 11/29/17 Docusate Sodium [Colace -] 100 mg PO BID PRN capsule 01/23/18 Mycophenolate Sodium [Mycophenolic Acid] 360 mg PO BID tablet. 01/23/18 hydrALAZINE HCL [Apresoline -] 25 mg PO BID tablet 01/23/18 Albuterol 2.5/Ipratropium 0.5 [Duoneb -] 1 amp NEB QID 02/08/18 Atorvastatin Ca [Lipitor] 40 mg PO HS #30 tablet 03/23/18 Insulin Sliding Scale [Novolog Vial Sliding Scale -] 1 vial SQ ACHS #1 units 02/05 Family Disease History - Family Disease History Family History: Denies Review of Systems - Review of Systems Constitutional: reports: No Symptoms Eyes: reports: No Symptoms HENT: reports: No Symptoms Neck: reports: No Symptoms Cardiovascular: reports: No Symptoms Respiratory: reports: No Symptoms Gastrointestinal: reports: No Symptoms Genitourinary: reports: No Symptoms Physical Exam Vital Signs: Vital Signs Temperature 98.0 F 04/10/18 20:39 Pulse Rate 75 04/11/18 06:48 Respiratory Rate 16 04/11/18 06:48 Blood Pressure 134/45 04/11/18 06:48 O2 Sat by Pulse Oximetry (%) 94 L 04/11/18 06:48 Constitutional: Yes: Well Nourished, No Distress, Calm Eyes: Yes: Conjunctiva Clear HENT: No: Thrush Neck: Yes: Supple, Trachea Midline Cardiovascular: Yes: Regular Rate and Rhythm Respiratory: Yes: Regular, Diminished (at the bases) Gastrointestinal: Yes: Normal Bowel Sounds, Soft. No: Tenderness, Epigastrium, Tenderness, Rebound Extremities: Yes: WNL Edema: No Psychiatric: Yes: Alert Labs: CBC, BMP 04/11/18 07:05 04/11/18 07:00 Imaging - Results Chest X-ray: Report Reviewed, Image Reviewed Cat Scan: Report Reviewed, Image Reviewed Problem List - Problems (1) PNA (pneumonia) Code(s): J18.9 - PNEUMONIA, UNSPECIFIED ORGANISM Qualifiers: Pneumonia type: due to unspecified organism Laterality: unspecified laterality Lung location: unspecified part of lung Qualified Code(s): J18.9 - Pneumonia, unspecified organism (2) Hemoptysis Code(s): R04.2 - HEMOPTYSIS (3) Renal transplant disorder Code(s): T86.10 - UNSPECIFIED COMPLICATION OF KIDNEY TRANSPLANT Assessment/Plan pneumonia- ?aspiration seen by ENT last admission and had right vocal cord paralysis! continue vancomycin and zosyn cultures, sputum, legionella urinary antigen ?hemoptysis or GI source??- agree with gi evaluation s/p renal transplant
[2018-04-11] MEDS ORDERED: ALBUTEROL SO4 2.5/IPRATROPIUM 0.5 INH SOL 3 ML VIAL.NEB. NEB ONE (14:00)
[2018-04-11] MEDS ORDERED: VANCOMYCIN 1 GM PREMIX - 1 GM/200 ML BAG IVPB SCH (17:00)
[2018-04-11] MEDS ORDERED: FUROSEMIDE 20 MG TABLET (FP) PO ONE (17:26)
--- NOTE | 2018-04-11 17:26 | CONSULT ---
Consult Consult Specialty:: Nephrology Reason for Consultation:: kidney transplant - History of Present Illness Chief Complaint: fever History of Present Illness: Pt is a 78 year old male with pmhx of kidney transplant, DM, HTN, and CAD who presents to the ER with fever. He complains of constipation. He also had an episode of vomiting. It is not clear if there was blood in it. He is a poor historian. His mental status has been deteriorating. He denies chills. He says he feels well today. - History Source History Provided By: Patient, Medical Record Limitations to Obtaining History: Dementia - Past Medical History Cardio/Vascular: Yes: CAD, HTN, [place], Other Renal/: Yes: Other (S/P Kidney tranplant 2008. 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, osteomyelitis of his finger) Endocrine: Yes: Diabetes Mellitus - Past Surgical History Past Surgical History: Yes: AV Fistula/Graft (right upper arm, non working), CABG, Kidney Transplant (right 2008) - Alcohol/Substance Use Hx Alcohol Use: No History of Substance Use: reports: None - Smoking History Smoking history: Never smoked Have you smoked in the past 12 months: No Aproximately how many cigarettes per day: 0 - Social History Usual Living Arrangement: Alone ADL: Support Services History of Recent Travel: No Home Medications - Allergies Allergies/Adverse Reactions: Allergies Allergy/AdvReac Type Severity Reaction Status Date / Time No Known Drug Allergies Allergy Verified 04/10/18 13:13 - Home Medications Home Medications: Ambulatory Orders Amlodipine Besylate [Norvasc -] 10 mg PO DAILY 05/17/17 Aspirin [Jena Chewable Aspirin] 81 mg PO HS 05/17/17 Carvedilol [Coreg -] 25 mg PO BID 05/17/17 Duloxetine HCl [Cymbalta] 20 mg PO BID 05/17/17 Tamsulosin HCl [Flomax] 0.4 mg PO HS 05/17/17 predniSONE [Deltasone -] 5 mg PO DAILY 05/17/17 Acetaminophen [Tylenol .Regular Strength -] 650 mg PO Q4H PRN tablet 11/29/17 Tacrolimus 1 mg PO BID 11/29/17 Docusate Sodium [Colace -] 100 mg PO BID PRN capsule 01/23/18 Mycophenolate Sodium [Mycophenolic Acid] 360 mg PO BID tablet. 01/23/18 hydrALAZINE HCL [Apresoline -] 25 mg PO BID tablet 01/23/18 Albuterol 2.5/Ipratropium 0.5 [Duoneb -] 1 amp NEB QID 02/08/18 Atorvastatin Ca [Lipitor] 40 mg PO HS #30 tablet 03/23/18 Insulin Sliding Scale [Novolog Vial Sliding Scale -] 1 vial SQ ACHS #1 units 02/05 Family Disease History - Family Disease History Family History: Denies Review of Systems - Review of Systems Constitutional: reports: Fever Eyes: reports: No Symptoms HENT: reports: No Symptoms Neck: reports: No Symptoms Cardiovascular: reports: No Symptoms Respiratory: reports: Cough Gastrointestinal: reports: Vomiting Genitourinary: reports: No Symptoms Musculoskeletal: reports: No Symptoms Integumentary: reports: No Symptoms Neurological: reports: No Symptoms Endocrine: reports: No Symptoms Hematology/Lymphatic: reports: No Symptoms Psychiatric: reports: No Symptoms Physical Exam Vital Signs: Vital Signs Temperature 98.4 F 04/11/18 14:31 Pulse Rate 85 04/11/18 14:31 Respiratory Rate 20 04/11/18 14:31 Blood Pressure 110/72 04/11/18 14:31 O2 Sat by Pulse Oximetry (%) 95 04/11/18 14:31 Constitutional: Yes: Calm Eyes: Yes: Conjunctiva Clear HENT: Yes: Atraumatic Neck: Yes: Supple Cardiovascular: Yes: S1, S2 Respiratory: Yes: CTA Bilaterally Gastrointestinal: Yes: Normal Bowel Sounds, Soft Renal/: Yes: Other (graft is soft and non tender) Musculoskeletal: Yes: WNL Edema: No Neurological: Yes: Oriented Psychiatric: Yes: Oriented Labs: CBC, BMP 04/11/18 07:05 04/11/18 07:00 Laboratory Tests 04/10/18 04/10/18 04/11/18 14:00 14:21 00:07 WBC 13.4 H D BUN Creatinine Urine Protein Negative Urine Blood Negative Tacrolimus Pending 04/11/18 04/11/18 07:00 07:05 WBC 14.2 H BUN 37 H Creatinine 1.2 Urine Protein Urine Blood Tacrolimus Imaging - Results Cat Scan: Report Reviewed Problem List - Problems (1) Hemoptysis Code(s): R04.2 - HEMOPTYSIS (2) PNA (pneumonia) Code(s): J18.9 - PNEUMONIA, UNSPECIFIED ORGANISM Qualifiers: Pneumonia type: due to unspecified organism Laterality: unspecified laterality Lung location: unspecified part of lung Qualified Code(s): J18.9 - Pneumonia, unspecified organism (3) Vomiting Code(s): R11.10 - VOMITING, UNSPECIFIED Assessment/Plan Current Medications Generic Name Dose Route Start Last Admin Trade Name Freq PRN Reason Stop Dose Admin Acetaminophen 650 mg 04/10/18 18:20 Tylenol - PO Q4H PRN FEVER Albuterol/Ipratropium 1 amp 04/10/18 20:00 04/11/18 12:09 Duoneb - NEB 1 amp RQID [facility] Administration Amlodipine Besylate 10 mg 04/11/18 10:00 04/11/18 11:47 Norvasc - PO 10 mg DAILY [facility] Administration Atorvastatin Calcium 40 mg 04/10/18 22:00 04/11/18 00:15 Lipitor - PO 40 mg HS [facility] Administration Carvedilol 25 mg 04/10/18 22:00 04/11/18 11:46 Coreg - PO 25 mg BID [facility] Administration Chlorhexidine Gluconate 1 applic 04/11/18 22:00 Hibiclens For Decolonization - TP HS [facility] Docusate Sodium 100 mg 04/10/18 18:20 Colace - PO BID PRN CONSTIPATION Duloxetine HCl 20 mg 04/10/18 22:00 04/11/18 11:46 Cymbalta - PO 20 mg BID [facility] Administration Hydralazine HCl 25 mg 04/10/18 22:00 04/11/18 11:46 Apresoline - PO 25 mg BID [facility] Administration Piperacillin Sod/Tazobactam 50 mls @ 100 mls/hr 04/11/18 11:30 04/11/18 12:11 Sod 3.375 gm/ Dextrose IVPB 100 mls/hr Q8H-IV [facility] Administration Protocol Vancomycin HCl 1 gm in 200 mls @ 200 mls/hr 04/11/18 17:00 Vancomycin 1 Gm Premix - IVPB DAILY@1700 [facility] Protocol Insulin Aspart 1 vial 04/10/18 22:00 04/11/18 12:10 Novolog Vial Sliding Scale - SQ 4 units ACHS [facility] Administration Protocol Mupirocin 1 applic 04/11/18 10:00 04/11/18 11:47 Bactroban Ointment (For Decolonization) - NS 04/16/18 09:59 1 dose BID [facility] Administration Mycophenolate Sodium 360 mg 04/10/18 22:00 04/11/18 11:46 Mycophenolic Acid PO 360 mg BID [facility] Administration Pantoprazole Sodium 40 mg 04/11/18 10:00 04/11/18 11:48 Protonix Iv IVPUSH 40 mg BID [facility] Administration Prednisone 5 mg 04/11/18 10:00 04/11/18 11:47 Deltasone - PO 5 mg DAILY [facility] Administration Tacrolimus 1 mg 04/10/18 22:00 04/11/18 11:47 Prograf PO 1 mg BID [facility] Administration Impression 1. CKD 2. kidney transplant 3. DM 4. hx of syncope 5. HTN 6. hyperlipidemia 7. CHF 8. fever 9. hemoptysis Plan - will give a dose of lasix PO - repeat labs in am - echo reviewed - follow prograf level - cont current meds - transplant meds reviewed Dr Perez
--- NOTE | 2018-04-11 17:40 | CON.GI ---
Consult Consult Specialty:: GI Reason for Consultation:: nausea, vomiting, fever - History of Present Illness History of Present Illness: Chart reviewed. H&P and consults noted. As per initial intake: Patient is a 78 year old male with a significant past medical history of hypertension, diabetes mellitus, [place] s/p stents, CABG, hyperlipidemia, IVC filter, DVT hx ( left leg) and kidney transplant (2008) on immunosuppressive therapy. Presents to the ED today with c/o of subjective fevers, nausea and vomiting for 3 days. At the time of this and contacted the patient appears comfortable, not in distress, or pain. Appears to be includes. Corroborates the above GI symptoms however states everything is okay now. No nausea, vomiting. Never had diarrhea. Denies melena, hematochezia, jaundice, dysphagia, odynophagia, hematemesis, coffee-ground emesis. ID consult mentions hemoptysis/possible hematemesis. The patient was served regular food while in EGD (vegetables and chicken breast), which she tolerated with no issues. Admission labs significant for Mild leukocytosis, hypomagnesemia, normal hemoglobin and liver chemistry. CT chest, abdomen, pelvis reveals lung field abnormalities however no acute gastrointestinal findings - History Source History Provided By: Patient, Medical Record - Past Medical History Cardio/Vascular: Yes: CAD, HTN, [place], Other Renal/: Yes: Other (S/P Kidney tranplant 2008. 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, osteomyelitis of his finger) Endocrine: Yes: Diabetes Mellitus - Past Surgical History Past Surgical History: Yes: AV Fistula/Graft (right upper arm, non working), CABG, Kidney Transplant (right 2008) - Alcohol/Substance Use Hx Alcohol Use: No History of Substance Use: reports: None - Smoking History Smoking history: Never smoked Have you smoked in the past 12 months: No Aproximately how many cigarettes per day: 0 - Social History Usual Living Arrangement: Alone ADL: Support Services History of Recent Travel: No Home Medications - Allergies Allergies/Adverse Reactions: Allergies Allergy/AdvReac Type Severity Reaction Status Date / Time No Known Drug Allergies Allergy Verified 04/10/18 13:13 - Home Medications Home Medications: Ambulatory Orders Amlodipine Besylate [Norvasc -] 10 mg PO DAILY 05/17/17 Aspirin [Jena Chewable Aspirin] 81 mg PO HS 05/17/17 Carvedilol [Coreg -] 25 mg PO BID 05/17/17 Duloxetine HCl [Cymbalta] 20 mg PO BID 05/17/17 Tamsulosin HCl [Flomax] 0.4 mg PO HS 05/17/17 predniSONE [Deltasone -] 5 mg PO DAILY 05/17/17 Acetaminophen [Tylenol .Regular Strength -] 650 mg PO Q4H PRN tablet 11/29/17 Tacrolimus 1 mg PO BID 11/29/17 Docusate Sodium [Colace -] 100 mg PO BID PRN capsule 01/23/18 Mycophenolate Sodium [Mycophenolic Acid] 360 mg PO BID tablet. 01/23/18 hydrALAZINE HCL [Apresoline -] 25 mg PO BID tablet 01/23/18 Albuterol 2.5/Ipratropium 0.5 [Duoneb -] 1 amp NEB QID 02/08/18 Atorvastatin Ca [Lipitor] 40 mg PO HS #30 tablet 03/23/18 Insulin Sliding Scale [Novolog Vial Sliding Scale -] 1 vial SQ ACHS #1 units 02/05 Family Disease History - Family Disease History Family History: Unremarkable (Noncontributory) Review of Systems Findings/Remarks: as per H&P and HPI Physical Exam-GI Vital Signs: Vital Signs Temperature 98.4 F 04/11/18 14:31 Pulse Rate 85 04/11/18 14:31 Respiratory Rate 20 04/11/18 14:31 Blood Pressure 110/72 04/11/18 14:31 O2 Sat by Pulse Oximetry (%) 95 04/11/18 14:31 Constitutional: Yes: No Distress, Calm Eyes: Yes: Conjunctiva Clear HENT: Yes: Atraumatic Neck: Yes: Supple Cardiovascular: Yes: Regular Rate and Rhythm Respiratory: Yes: Regular Gastrointestinal Inspection: No: Ascites, Distention ...Auscultate: Yes: Normoactive Bowel Sounds ...Palpate: Yes: Soft. No: Firm/Rigid, Guarding, Mass, Tenderness, Tenderness, Rebound Edema: No Neurological: Yes: Alert Labs: CBC, BMP 04/11/18 07:05 04/11/18 07:00 INR, PTT INR 1.10 (0.82-1.09) 04/11/18 07:05 Laboratory Last Values WBC 14.2 K/mm3 (4.0-10.0) H 04/11/18 07:05 RBC 4.09 M/mm3 (4.00-5.60) 04/11/18 07:05 Hgb 11.8 GM/dL (11.7-16.9) D 04/11/18 07:05 Hct 36.4 % (35.4-49) D 04/11/18 07:05 MCV 89.0 fl (80-96) 04/11/18 07:05 MCH 29.0 pg (25.7-33.7) 04/11/18 07:05 MCHC 32.6 g/dl (32.0-35.9) 04/11/18 07:05 RDW 17.0 % (11.9-15.9) H 04/11/18 07:05 Plt Count 138 K/MM3 (134-434) D 04/11/18 07:05 MPV 8.2 fl (7.5-11.1) 04/11/18 07:05 Neutrophils % 75.3 % (42.8-82.8) 04/11/18 07:05 Lymphocytes % 15.8 % (8-40) D 04/11/18 07:05 Monocytes % 7.4 % (3.8-10.2) 04/11/18 07:05 Eosinophils % 1.2 % (0-4.5) D 04/11/18 07:05 Basophils % 0.3 % (0-2.0) 04/11/18 07:05 Nucleated RBC % 0 % (0-0) 04/11/18 07:05 PT with INR 12.40 SEC (9.7-13.0) 04/11/18 07:05 INR 1.10 (0.82-1.09) 04/11/18 07:05 PTT (Actin FS) 22.6 SECONDS (26.9-34.4) L 04/10/18 14:16 VBG pH 7.40 (7.32-7.42) D 04/10/18 14:16 POC VBG pCO2 41.3 mmHg (38-52) D 04/10/18 14:16 POC VBG pO2 60.8 mmHg (28-48) H D 04/10/18 14:16 Mixed VBG HCO3 24.8 meq/L (19-25) 04/10/18 14:16 Sodium 138 mmol/L (136-145) 04/11/18 07:00 Potassium 4.0 mmol/L (3.5-5.1) 04/11/18 07:00 Chloride 107 mmol/L (98-107) 04/11/18 07:00 Carbon Dioxide 24 mmol/L (21-32) 04/11/18 07:00 Anion Gap 7 (8-16) L 04/11/18 07:00 BUN 37 mg/dL (7-18) H 04/11/18 07:00 Creatinine 1.2 mg/dL (0.7-1.3) 04/11/18 07:00 Creat Clearance w eGFR 58.86 (>60) 04/11/18 07:00 POC Glucometer 231.80275 UNITS (80-120) 04/11/18 12:02 Random Glucose 119 mg/dL (74-106) H D 04/11/18 07:00 Hemoglobin A1c % 9.2 % (4.8-6.0) H D 04/11/18 07:52 Lactic Acid 1.6 mmol/L (0.0-2.0) 04/10/18 14:16 Calcium 8.2 mg/dL (8.5-10.1) L 04/11/18 07:00 Phosphorus 2.2 mg/dL (2.5-4.9) L D 04/10/18 14:16 Magnesium 1.8 mg/dL (1.8-2.4) 04/11/18 07:00 Total Bilirubin 0.5 mg/dL (0.2-1.0) D 04/11/18 07:00 AST 10 U/L (15-37) L D 04/11/18 07:00 ALT 13 U/L (12-78) 04/11/18 07:00 Alkaline Phosphatase 60 U/L (45-117) 04/11/18 07:00 Troponin I 0.02 ng/ml (0.00-0.05) 04/11/18 07:17 Total Protein 5.5 g/dl (6.4-8.2) L 04/11/18 07:00 Albumin 2.9 g/dl (3.4-5.0) L 04/11/18 07:00 Triglycerides 93 mg/dL (35-160) D 04/11/18 07:55 Cholesterol 116 mg/dL (50-200) D 04/11/18 07:55 Total LDL Cholesterol 55 mg/dL (5-100) D 04/11/18 07:55 HDL Cholesterol 52 mg/dL (40-60) 04/11/18 07:55 Urine Color Ltyellow 04/11/18 00:07 Urine Appearance Clear 04/11/18 00:07 Urine pH 5.0 (5.0-8.0) 04/11/18 00:07 Ur Specific Hubbell 1.014 (1.001-1.035) 04/11/18 00:07 Urine Protein Negative (NEGATIVE) 04/11/18 00:07 Urine Glucose (UA) Negative (NEGATIVE) 04/11/18 00:07 Urine Ketones Negative (NEGATIVE) 04/11/18 00:07 Urine Blood Negative (NEGATIVE) 04/11/18 00:07 Urine Nitrite Negative (NEGATIVE) 04/11/18 00:07 Urine Bilirubin Negative (<2.0 mg/dL) 04/11/18 00:07 Urine Urobilinogen Negative mg/dL (0.2-1.0) 04/11/18 00:07 Ur Leukocyte Esterase Negative (NEGATIVE) 04/11/18 00:07 Imaging - Results Cat Scan: Report Reviewed ( chest findings, no significant, acute gastrointestinal findings) Problem List - Problems (1) Immunocompromised patient Code(s): D84.9 - IMMUNODEFICIENCY, UNSPECIFIED (2) Nausea & vomiting Code(s): R11.2 - NAUSEA WITH VOMITING, UNSPECIFIED Assessment/Plan a 78-year-old, immunocompromised patient with nausea, vomiting, abnormal chest CT and possible hemoptysis/hematemesis. No obvious stigmata of recent, or ongoing gastrointestinal bleeding, however the patient is high risk for that due to chronic steroid and NSAID use. Will monitor patient closely while renal and pulmonary workups in progress. Agree with PPI however okay to change to oral once daily. Continue current diet. Daily CBC.
[2018-04-11] MEDS ORDERED: INSULIN REGULAR HUMAN 100 UNITS/ML *VIAL ONE (17:56)
[2018-04-11] MEDS ORDERED: VANCOMYCIN 1 GRAM (PRE-DOCKED) 1,000 MG/250 ML BAG IVPB ONE (17:57)
[2018-04-11] MEDS ORDERED: FUROSEMIDE 40 MG TABLET (FP) ONE (17:59)
[2018-04-12] MEDS: CHLORHEXIDINE GLUCONATE 4% CLEANSER FOR DECOLONIZATION TP SCH ×2 (03:35→21:54)
[2018-04-12] MEDS: INSULIN SLIDING SCALE (NOVOLOG) 1 VIAL SQ SCH ×5 (03:36→22:01)
[2018-04-12] MEDS: MUPIROCIN 2% TOPICAL OINTMENT FOR DECOLONIZATION NS SCH ×3 (03:36→21:54)
[2018-04-12] MEDS: PIPERACILLIN/TAZOB 3.375 GM 3.375 GM in DEXTROSE 5%-WATER - 50 ML IVPB SCH ×2 (03:37→13:34)
[2018-04-12] MEDS ORDERED: PIPERACILLIN/TAZOB 3.375 GM 3.375 GM/50 ML BAG IVPB ONE (03:54)
[2018-04-12] MEDS: PANTOPRAZOLE SODIUM 40 MG VIAL IVPUSH SCH ×2 (03:58→13:33)
[2018-04-12] MEDS: ATORVASTATIN CA 40 MG TABLET (FP) PO SCH ×2 (03:58→21:51)
[2018-04-12] MEDS: DULoxetine HCL 20 MG CAPSULE.DR (FP) PO SCH ×3 (03:58→21:53)
[2018-04-12] MEDS: hydrALAZINE HCL 25 MG TABLET (FP) PO SCH ×3 (03:58→21:51)
[2018-04-12] MEDS: TACROLIMUS ANHYDROUS 1 MG CAPSULE PO SCH ×3 (03:58→21:54)
[2018-04-12] MEDS: CARVEDILOL 25 MG TABLET (FP) PO SCH ×3 (03:58→21:51)
[2018-04-12] MEDS: MYCOPHENOLATE SODIUM 360 MG TABLET.DR PO SCH ×3 (03:58→21:53)
[2018-04-12] MEDS ORDERED: PANTOPRAZOLE SODIUM 40 MG VIAL ONE (04:05)
--- NOTE | 2018-04-12 10:05 | PN ---
Progress Note, Physician History of Present Illness: Clinically the same. Tolerating regular diet. Has no specific complaints. No acute events overnight. - Current Medication List Current Medications: Active Medications Acetaminophen (Tylenol -) 650 mg PO Q4H PRN PRN Reason: FEVER Albuterol/Ipratropium (Duoneb -) 1 amp NEB RQID [facility] Last Admin: 04/11/18 20:17 Dose: 1 amp Amlodipine Besylate (Norvasc -) 10 mg PO DAILY [facility] Last Admin: 04/11/18 11:47 Dose: 10 mg Atorvastatin Calcium (Lipitor -) 40 mg PO HS [facility] Last Admin: 04/12/18 03:58 Dose: 40 mg Carvedilol (Coreg -) 25 mg PO BID [facility] Last Admin: 04/12/18 03:58 Dose: 25 mg Chlorhexidine Gluconate (Hibiclens For Decolonization -) 1 applic TP [facility] Last Admin: 04/12/18 03:35 Dose: 1 applic Docusate Sodium (Colace -) 100 mg PO BID PRN PRN Reason: CONSTIPATION Duloxetine HCl (Cymbalta -) 20 mg PO BID [facility] Last Admin: 04/12/18 03:58 Dose: 20 mg Hydralazine HCl (Apresoline -) 25 mg PO BID [facility] Last Admin: 04/12/18 03:58 Dose: 25 mg Piperacillin Sod/Tazobactam (Sod 3.375 gm/ Dextrose) 50 mls @ 100 mls/hr IVPB Q8H-IV [facility]; Protocol Last Admin: 04/12/18 03:37 Dose: 100 mls/hr Vancomycin HCl (Vancomycin 1 Gm Premix -) 1 gm in 200 mls @ 200 mls/hr IVPB DAILY@1700 [facility]; Protocol Last Admin: 04/11/18 17:41 Dose: 200 mls/hr Insulin Aspart (Novolog Vial Sliding Scale -) 1 vial SQ ACHS [facility]; Protocol Last Admin: 04/12/18 06:42 Dose: 6 units Mupirocin (Bactroban Ointment (For Decolonization) -) 1 applic NS BID [facility] Stop: 04/16/18 09:59 Last Admin: 04/12/18 03:36 Dose: Not Given Mycophenolate Sodium (Mycophenolic Acid) 360 mg PO BID [facility] Last Admin: 04/12/18 03:58 Dose: 360 mg Pantoprazole Sodium (Protonix Iv) 40 mg IVPUSH BID [facility] Last Admin: 04/12/18 03:58 Dose: 40 mg Prednisone (Deltasone -) 5 mg PO DAILY [facility] Last Admin: 04/11/18 11:47 Dose: 5 mg Tacrolimus (Prograf) 1 mg PO BID [facility] Last Admin: 04/12/18 03:58 Dose: 1 mg - Objective Vital Signs: Vital Signs Temperature 97.8 F 04/12/18 04:20 Pulse Rate 70 04/12/18 04:20 Respiratory Rate 18 04/12/18 04:20 Blood Pressure 125/60 04/12/18 04:20 O2 Sat by Pulse Oximetry (%) 99 04/11/18 18:30 Constitutional: Yes: Well Nourished, No Distress, Calm Gastrointestinal: Yes: Soft. No: Melena, Rectal Bleeding, Tenderness, Vomiting Neurological: Yes: Alert Labs: CBC, BMP 04/11/18 07:05 04/11/18 07:00 INR, PTT INR 1.10 (0.82-1.09) 04/11/18 07:05 Laboratory Last Values WBC 14.2 K/mm3 (4.0-10.0) H 04/11/18 07:05 RBC 4.09 M/mm3 (4.00-5.60) 04/11/18 07:05 Hgb 11.8 GM/dL (11.7-16.9) D 04/11/18 07:05 Hct 36.4 % (35.4-49) D 04/11/18 07:05 MCV 89.0 fl (80-96) 04/11/18 07:05 MCH 29.0 pg (25.7-33.7) 04/11/18 07:05 MCHC 32.6 g/dl (32.0-35.9) 04/11/18 07:05 RDW 17.0 % (11.9-15.9) H 04/11/18 07:05 Plt Count 138 K/MM3 (134-434) D 04/11/18 07:05 MPV 8.2 fl (7.5-11.1) 04/11/18 07:05 Neutrophils % 75.3 % (42.8-82.8) 04/11/18 07:05 Lymphocytes % 15.8 % (8-40) D 04/11/18 07:05 Monocytes % 7.4 % (3.8-10.2) 04/11/18 07:05 Eosinophils % 1.2 % (0-4.5) D 04/11/18 07:05 Basophils % 0.3 % (0-2.0) 04/11/18 07:05 Nucleated RBC % 0 % (0-0) 04/11/18 07:05 PT with INR 12.40 SEC (9.7-13.0) 04/11/18 07:05 INR 1.10 (0.82-1.09) 04/11/18 07:05 PTT (Actin FS) 22.6 SECONDS (26.9-34.4) L 04/10/18 14:16 VBG pH 7.40 (7.32-7.42) D 04/10/18 14:16 POC VBG pCO2 41.3 mmHg (38-52) D 04/10/18 14:16 POC VBG pO2 60.8 mmHg (28-48) H D 04/10/18 14:16 Mixed VBG HCO3 24.8 meq/L (19-25) 04/10/18 14:16 Sodium 138 mmol/L (136-145) 04/11/18 07:00 Potassium 4.0 mmol/L (3.5-5.1) 04/11/18 07:00 Chloride 107 mmol/L (98-107) 04/11/18 07:00 Carbon Dioxide 24 mmol/L (21-32) 04/11/18 07:00 Anion Gap 7 (8-16) L 04/11/18 07:00 BUN 37 mg/dL (7-18) H 04/11/18 07:00 Creatinine 1.2 mg/dL (0.7-1.3) 04/11/18 07:00 Creat Clearance w eGFR 58.86 (>60) 04/11/18 07:00 POC Glucometer 222.77710 UNITS (80-120) 04/11/18 17:27 Random Glucose 119 mg/dL (74-106) H D 04/11/18 07:00 Hemoglobin A1c % 9.2 % (4.8-6.0) H D 04/11/18 07:52 Lactic Acid 1.6 mmol/L (0.0-2.0) 04/10/18 14:16 Calcium 8.2 mg/dL (8.5-10.1) L 04/11/18 07:00 Phosphorus 2.2 mg/dL (2.5-4.9) L D 04/10/18 14:16 Magnesium 1.8 mg/dL (1.8-2.4) 04/11/18 07:00 Total Bilirubin 0.5 mg/dL (0.2-1.0) D 04/11/18 07:00 AST 10 U/L (15-37) L D 04/11/18 07:00 ALT 13 U/L (12-78) 04/11/18 07:00 Alkaline Phosphatase 60 U/L (45-117) 04/11/18 07:00 Troponin I 0.02 ng/ml (0.00-0.05) 04/11/18 07:17 Total Protein 5.5 g/dl (6.4-8.2) L 04/11/18 07:00 Albumin 2.9 g/dl (3.4-5.0) L 04/11/18 07:00 Triglycerides 93 mg/dL (35-160) D 04/11/18 07:55 Cholesterol 116 mg/dL (50-200) D 04/11/18 07:55 Total LDL Cholesterol 55 mg/dL (5-100) D 04/11/18 07:55 HDL Cholesterol 52 mg/dL (40-60) 04/11/18 07:55 Urine Color Ltyellow 04/11/18 00:07 Urine Appearance Clear 04/11/18 00:07 Urine pH 5.0 (5.0-8.0) 04/11/18 00:07 Ur Specific [place] 1.014 (1.001-1.035) 04/11/18 00:07 Urine Protein Negative (NEGATIVE) 04/11/18 00:07 Urine Glucose (UA) Negative (NEGATIVE) 04/11/18 00:07 Urine Ketones Negative (NEGATIVE) 04/11/18 00:07 Urine Blood Negative (NEGATIVE) 04/11/18 00:07 Urine Nitrite Negative (NEGATIVE) 04/11/18 00:07 Urine Bilirubin Negative (<2.0 mg/dL) 04/11/18 00:07 Urine Urobilinogen Negative mg/dL (0.2-1.0) 04/11/18 00:07 Ur Leukocyte Esterase Negative (NEGATIVE) 04/11/18 00:07 Problem List - Problems (1) Immunocompromised patient Code(s): D84.9 - IMMUNODEFICIENCY, UNSPECIFIED (2) Nausea & vomiting Code(s): R11.2 - NAUSEA WITH VOMITING, UNSPECIFIED Assessment/Plan Continue current management. CBC today.
[2018-04-12] MEDS ORDERED: PIPERACILLIN/TAZOBACTAM 3.375 GM VIAL IVPB ONE ×2 (10:18→16:09)
[2018-04-12] MEDS ORDERED: DEXTROSE 5%-WATER - 50 ML IVPB ONE ×2 (10:18→16:10)
[2018-04-12] MEDS: ALBUTEROL SO4 2.5/IPRATROPIUM 0.5 INH SOL 3 ML VIAL.NEB. NEB SCH ×4 (11:20→21:17)
[2018-04-12] MEDS ORDERED: PIPERACILLIN/TAZOB 3.375 GM 3.375 GM in DEXTROSE 5%-WATER - 50 ML IVPB SCH (11:36)
[2018-04-12] MEDS ORDERED: VANCOMYCIN 1 GM PREMIX - 1 GM/200 ML BAG IVPB SCH (11:36)
--- NOTE | 2018-04-12 11:38 | PN ---
Progress Note, Physician Chief Complaint: NAUSEA/VOMITING/ PNE History of Present Illness: NAD Refusing all the meds and vitals this AM Feels better seen by ID, GI and Nephrology CT chest showed GUCCI pne on IV abx on IV protonix, change to po daily as per GI - Current Medication List Current Medications: Active Medications Acetaminophen (Tylenol -) 650 mg PO Q4H PRN PRN Reason: FEVER Albuterol/Ipratropium (Duoneb -) 1 amp NEB RQID [facility] Last Admin: 04/12/18 11:20 Dose: Not Given Amlodipine Besylate (Norvasc -) 10 mg PO DAILY [facility] Last Admin: 04/11/18 11:47 Dose: 10 mg Atorvastatin Calcium (Lipitor -) 40 mg PO [facility] Last Admin: 04/12/18 03:58 Dose: 40 mg Carvedilol (Coreg -) 25 mg PO BID [facility] Last Admin: 04/12/18 03:58 Dose: 25 mg Chlorhexidine Gluconate (Hibiclens For Decolonization -) 1 applic TP [facility] Last Admin: 04/12/18 03:35 Dose: 1 applic Docusate Sodium (Colace -) 100 mg PO BID PRN PRN Reason: CONSTIPATION Duloxetine HCl (Cymbalta -) 20 mg PO BID [facility] Last Admin: 04/12/18 03:58 Dose: 20 mg Hydralazine HCl (Apresoline -) 25 mg PO BID [facility] Last Admin: 04/12/18 03:58 Dose: 25 mg Vancomycin HCl (Vancomycin 1 Gm Premix -) 1 gm in 200 mls @ 200 mls/hr IVPB DAILY@1700 [facility]; Protocol Piperacillin Sod/Tazobactam (Sod 3.375 gm/ Dextrose) 50 mls @ 100 mls/hr IVPB Q8H-IV [facility]; Protocol Insulin Aspart (Novolog Vial Sliding Scale -) 1 vial SQ ACHS [facility]; Protocol Last Admin: 04/12/18 06:42 Dose: 6 units Mupirocin (Bactroban Ointment (For Decolonization) -) 1 applic NS BID [facility] Stop: 04/16/18 09:59 Last Admin: 04/12/18 03:36 Dose: Not Given Mycophenolate Sodium (Mycophenolic Acid) 360 mg PO BID [facility] Last Admin: 04/12/18 03:58 Dose: 360 mg Pantoprazole Sodium (Protonix Iv) 40 mg IVPUSH BID [facility] Last Admin: 04/12/18 03:58 Dose: 40 mg Prednisone (Deltasone -) 5 mg PO DAILY [facility] Last Admin: 04/11/18 11:47 Dose: 5 mg Tacrolimus (Prograf) 1 mg PO BID [facility] Last Admin: 04/12/18 03:58 Dose: 1 mg - Objective Vital Signs: Vital Signs Temperature 97.8 F 04/12/18 04:20 Pulse Rate 70 04/12/18 04:20 Respiratory Rate 18 04/12/18 04:20 Blood Pressure 125/60 04/12/18 04:20 O2 Sat by Pulse Oximetry (%) 99 04/11/18 18:30 Constitutional: Yes: Well Nourished, No Distress, Calm Cardiovascular: Yes: Regular Rate and Rhythm Respiratory: Yes: Regular Gastrointestinal: Yes: Soft, Hyperactive Bowel Sounds Genitourinary: Yes: Incontinence Musculoskeletal: Yes: WNL Extremities: Yes: WNL Edema: No Peripheral Pulses WNL: Yes Neurological: Yes: Alert, Oriented Psychiatric: Yes: Alert, Oriented Labs: CBC, BMP 04/11/18 07:05 04/11/18 07:00 INR, PTT INR 1.10 (0.82-1.09) 04/11/18 07:05 Problem List - Problems (1) Nausea & vomiting Assessment/Plan: -resolved -seen by GI -on PPI Code(s): R11.2 - NAUSEA WITH VOMITING, UNSPECIFIED (2) PNA (pneumonia) Assessment/Plan: -GUCCI -Seen by Pulmonary and ID -On IV abx -Nasal o2 as needed, keep Spo2 >90% -Bronchodilators as needed Code(s): J18.9 - PNEUMONIA, UNSPECIFIED ORGANISM Qualifiers: Pneumonia type: due to unspecified organism Laterality: unspecified laterality Lung location: unspecified part of lung Qualified Code(s): J18.9 - Pneumonia, unspecified organism (3) DM2 (diabetes mellitus, type 2) Assessment/Plan: -A1C at 9.2 -started on Levemir -Endocrinology consult -BGM ACHS -Insulin Novolog sliding scale -diabetic diet -Please administer all IV abx with NS instead of D5W Code(s): E11.9 - TYPE 2 DIABETES MELLITUS WITHOUT COMPLICATIONS Qualifiers: Diabetes mellitus residential insulin use: with residential use (4) History of MRSA infection Assessment/Plan: -Maintain Contact isolation -ID on board Code(s): Z86.14 - PERSONAL HISTORY OF METHICILLIN RESIS STAPH INFECTION
--- NOTE | 2018-04-12 11:56 | PN ---
Progress Note (short form) - Note Progress Note: he feels well no complaints hemoptysis has resolved no abdominal pain Vital Signs Period Temp Pulse Resp BP Sys/Mendoza Pulse Ox Last 24 Hr 97.8 F-98.7 F 70-85 18-20 110-125/60-78 95-99 cor-rrr lungs clear abd soft,nt ext no edema CBC, BMP 04/11/18 07:05 04/11/18 07:00 Microbiology 04/11/18 00:07 Urine - Urine Clean Catch Urine Culture - Final NO GROWTH OBTAINED 04/10/18 14:18 Blood - Peripheral Venous Blood Culture - Preliminary NO GROWTH OBTAINED AFTER 24 HOURS, INCUBATION TO CONTINUE FOR 4 DAYS. 04/10/18 14:16 Blood - Peripheral Venous Blood Culture - Preliminary NO GROWTH OBTAINED AFTER 24 HOURS, INCUBATION TO CONTINUE FOR 4 DAYS. Current Medications Acetaminophen (Tylenol -) 650 mg PO Q4H PRN PRN Reason: FEVER Albuterol/Ipratropium (Duoneb -) 1 amp NEB RQID [facility] Last Admin: 04/12/18 11:20 Dose: Not Given Amlodipine Besylate (Norvasc -) 10 mg PO DAILY [facility] Last Admin: 04/11/18 11:47 Dose: 10 mg Atorvastatin Calcium (Lipitor -) 40 mg PO HS [facility] Last Admin: 04/12/18 03:58 Dose: 40 mg Carvedilol (Coreg -) 25 mg PO BID [facility] Last Admin: 04/12/18 03:58 Dose: 25 mg Chlorhexidine Gluconate (Hibiclens For Decolonization -) 1 applic TP [facility] Last Admin: 04/12/18 03:35 Dose: 1 applic Docusate Sodium (Colace -) 100 mg PO BID PRN PRN Reason: CONSTIPATION Duloxetine HCl (Cymbalta -) 20 mg PO BID [facility] Last Admin: 04/12/18 03:58 Dose: 20 mg Hydralazine HCl (Apresoline -) 25 mg PO BID [facility] Last Admin: 04/12/18 03:58 Dose: 25 mg Vancomycin HCl (Vancomycin 1 Gm Premix -) 1 gm in 200 mls @ 200 mls/hr IVPB DAILY@1700 [facility]; Protocol Piperacillin Sod/Tazobactam (Sod 3.375 gm/ Dextrose) 50 mls @ 100 mls/hr IVPB Q8H-IV [facility]; Protocol Insulin Aspart (Novolog Vial Sliding Scale -) 1 vial SQ ACHS [facility]; Protocol Last Admin: 04/12/18 06:42 Dose: 6 units Mupirocin (Bactroban Ointment (For Decolonization) -) 1 applic NS BID [facility] Stop: 04/16/18 09:59 Last Admin: 04/12/18 03:36 Dose: Not Given Mycophenolate Sodium (Mycophenolic Acid) 360 mg PO BID [facility] Last Admin: 04/12/18 03:58 Dose: 360 mg Pantoprazole Sodium (Protonix -) 40 mg PO DAILY [facility] Prednisone (Deltasone -) 5 mg PO DAILY [facility] Last Admin: 04/11/18 11:47 Dose: 5 mg Tacrolimus (Prograf) 1 mg PO BID [facility] Last Admin: 04/12/18 03:58 Dose: 1 mg a/p pneumonia ?aspiration doing well vanco/zosyn to continue sputum culture legionella urine antigen mrsa contact isolation renal transplant /immunocompromised host due to transplant meds diabetes Problem List - Problems (1) PNA (pneumonia) Code(s): J18.9 - PNEUMONIA, UNSPECIFIED ORGANISM Qualifiers: Pneumonia type: due to unspecified organism Laterality: unspecified laterality Lung location: unspecified part of lung Qualified Code(s): J18.9 - Pneumonia, unspecified organism (2) Hemoptysis Code(s): R04.2 - HEMOPTYSIS (3) Renal transplant disorder Code(s): T86.10 - UNSPECIFIED COMPLICATION OF KIDNEY TRANSPLANT
--- NOTE | 2018-04-12 12:10 | CONSULT ---
Consult Consult Specialty:: endocrine Referred by:: anthony villalobos np Reason for Consultation:: diabetes mellitus kidney transplant patient - History of Present Illness Chief Complaint: weakness and high sugars History of Present Illness: 78 year old male with a significant past medical history of hypertension, diabetes mellitus, UT s/p stents, CABG, hyperlipidemia, IVC filter, DVT hx ( left leg) and kidney transplant (2008) on immunosuppressive therapy. He presented to the ED today with c/o of subjective fevers, nausea and vomiting for about 3 days. Patient has\ had decreased appetite and poor PO intake. He denies any abdominal pain, diarrhea or constipation. - Past Medical History Cardio/Vascular: Yes: CAD, HTN, UT, Other Renal/: Yes: Other (S/P Kidney tranplant 2008. 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, osteomyelitis of his finger) Endocrine: Yes: Diabetes Mellitus - Past Surgical History Past Surgical History: Yes: AV Fistula/Graft (right upper arm, non working), CABG, Kidney Transplant (right 2008) - Alcohol/Substance Use Hx Alcohol Use: No History of Substance Use: reports: None - Smoking History Smoking history: Never smoked Have you smoked in the past 12 months: No Aproximately how many cigarettes per day: 0 - Social History Usual Living Arrangement: Alone ADL: Support Services History of Recent Travel: No Home Medications - Allergies Allergies/Adverse Reactions: Allergies Allergy/AdvReac Type Severity Reaction Status Date / Time No Known Drug Allergies Allergy Verified 04/10/18 13:13 - Home Medications Home Medications: Ambulatory Orders Amlodipine Besylate [Norvasc -] 10 mg PO DAILY 05/17/17 Aspirin [Jena Chewable Aspirin] 81 mg PO HS 05/17/17 Carvedilol [Coreg -] 25 mg PO BID 05/17/17 Duloxetine HCl [Cymbalta] 20 mg PO BID 05/17/17 Tamsulosin HCl [Flomax] 0.4 mg PO HS 05/17/17 predniSONE [Deltasone -] 5 mg PO DAILY 05/17/17 Acetaminophen [Tylenol .Regular Strength -] 650 mg PO Q4H PRN tablet 11/29/17 Tacrolimus 1 mg PO BID 11/29/17 Docusate Sodium [Colace -] 100 mg PO BID PRN capsule 01/23/18 Mycophenolate Sodium [Mycophenolic Acid] 360 mg PO BID tablet. 01/23/18 hydrALAZINE HCL [Apresoline -] 25 mg PO BID tablet 01/23/18 Albuterol 2.5/Ipratropium 0.5 [Duoneb -] 1 amp NEB QID 02/08/18 Atorvastatin Ca [Lipitor] 40 mg PO HS #30 tablet 03/23/18 Insulin Sliding Scale [Novolog Vial Sliding Scale -] 1 vial SQ ACHS #1 units 02/05 Review of Systems - Review of Systems Constitutional: reports: Lethargy, Weakness Eyes: reports: Blurred Vision HENT: reports: Nasal Congestion, Throat Pain Neck: reports: No Symptoms Cardiovascular: reports: Shortness of Breath Respiratory: reports: Exercise Intolerance, SOB on Exertion Gastrointestinal: reports: Bloating Genitourinary: reports: No Symptoms Breasts: reports: No Symptoms Reported Musculoskeletal: reports: Muscle Pain, Muscle Cramps, Muscle Weakness Integumentary: reports: No Symptoms Neurological: reports: Weakness Endocrine: reports: Unexplained Weight Loss Physical Exam Vital Signs: Vital Signs Temperature 97.8 F 04/12/18 04:20 Pulse Rate 70 04/12/18 04:20 Respiratory Rate 18 04/12/18 04:20 Blood Pressure 125/60 04/12/18 04:20 O2 Sat by Pulse Oximetry (%) 99 04/11/18 18:30 Constitutional: Yes: Anxious Eyes: Yes: EOM Intact HENT: Yes: Normocephalic Neck: Yes: Trachea Midline Cardiovascular: Yes: Regular Rate and Rhythm Respiratory: Yes: CTA Bilaterally Gastrointestinal: Yes: Normal Bowel Sounds, Abdomen, Obese ...Rectal Exam: Yes: Deferred Renal/: Yes: WNL Peripheral Pulses WNL: Yes Neurological: Yes: Alert, Oriented Labs: CBC, BMP 04/11/18 07:05 04/11/18 07:00 Problem List - Problems (1) Acute type 2 diabetes mellitus with manifestations Code(s): E11.8 - TYPE 2 DIABETES MELLITUS WITH UNSPECIFIED COMPLICATIONS (2) Immunocompromised patient Code(s): D84.9 - IMMUNODEFICIENCY, UNSPECIFIED (3) Nausea & vomiting Code(s): R11.2 - NAUSEA WITH VOMITING, UNSPECIFIED (4) PNA (pneumonia) Code(s): J18.9 - PNEUMONIA, UNSPECIFIED ORGANISM Qualifiers: Pneumonia type: due to unspecified organism Laterality: unspecified laterality Lung location: unspecified part of lung Qualified Code(s): J18.9 - Pneumonia, unspecified organism (5) Vomiting Code(s): R11.10 - VOMITING, UNSPECIFIED (6) CHUCK (acute kidney injury) Code(s): N17.9 - ACUTE KIDNEY FAILURE, UNSPECIFIED Assessment/Plan Current Active Problems Hemoptysis (Acute) Immunocompromised patient (Acute) Nausea & vomiting (Acute) PNA (pneumonia) (Acute) Vomiting (Acute) diabetes mellitus neuropathy htn ashd Laboratory Results - last 24 hr 04/11/18 04/11/18 04/11/18 07:20 12:02 17:27 POC Glucometer 152.69510 231.21550 222.01371 04/12/18 05:38 POC Glucometer 273 Laboratory Tests 02/11/18 02/11/18 02/12/18 05:10 05:10 16:22 Sodium 142 Potassium 3.8 Chloride 109 H Carbon Dioxide 23 Anion Gap 10 BUN 15 D Creatinine 0.8 D Creat Clearance w eGFR > 60 POC Glucometer 184 Random Glucose 158 H D Hemoglobin A1c % 10.2 H D Calcium Cholesterol 02/12/18 02/13/18 02/13/18 22:51 06:43 11:58 Sodium Potassium Chloride Carbon Dioxide Anion Gap BUN Creatinine Creat Clearance w eGFR POC Glucometer 262 94 157 Random Glucose Hemoglobin A1c % Calcium Cholesterol 02/13/18 02/13/18 03/18/18 17:35 22:38 05:36 Sodium Potassium Chloride Carbon Dioxide Anion Gap BUN Creatinine Creat Clearance w eGFR POC Glucometer 246 249 178 Random Glucose Hemoglobin A1c % Calcium Cholesterol 03/18/18 03/18/18 03/18/18 09:21 12:05 17:20 Sodium 138 Potassium 4.4 Chloride 104 Carbon Dioxide 28 Anion Gap 6 L BUN 35 H Creatinine 1.4 H Creat Clearance w eGFR POC Glucometer 333 295 Random Glucose 204 H D Hemoglobin A1c % Calcium 8.0 L Cholesterol 03/20/18 03/20/18 03/20/18 11:34 17:04 22:20 Sodium Potassium Chloride Carbon Dioxide Anion Gap BUN Creatinine Creat Clearance w eGFR POC Glucometer 239 270 220 Random Glucose Hemoglobin A1c % Calcium Cholesterol 04/11/18 04/11/18 04/11/18 07:00 07:20 07:52 Sodium 138 Potassium 4.0 Chloride 107 Carbon Dioxide 24 Anion Gap 7 L BUN 37 H Creatinine 1.2 Creat Clearance w eGFR 58.86 POC Glucometer 152.84042 Random Glucose 119 H D Hemoglobin A1c % 9.2 H D Calcium Cholesterol 04/11/18 07:55 Sodium Potassium Chloride Carbon Dioxide Anion Gap BUN Creatinine Creat Clearance w eGFR POC Glucometer Random Glucose Hemoglobin A1c % Calcium Cholesterol 116 D plan: bgm qid novolog insulin doses levemir 20 units am low dose hs coverage given am hypglycemia
[2018-04-12] MEDS: amLODIPine BESYLATE 10 MG TABLET (FP) PO SCH (12:12)
[2018-04-12] MEDS: predniSONE 5 MG TABLET (UD) PO SCH (12:12)
[2018-04-12 12:48] LABS: BASO % 0.5 % (0-2.0); EOS % 3.2 % (0-4.5); HEMATOCRIT 34.8 % (35.4-49); HEMOGLOBIN 11.6 GM/dL (11.7-16.9); LYMPH % 19.4 % (8-40); MCH 29.7 pg (25.7-33.7); MCHC 33.3 g/dl (32.0-35.9); MEAN CELL VOLUME 89.1 fl (80-96); MEAN PLT VOLUME 8.2 fl (7.5-11.1); MONO % 9.2 % (3.8-10.2); NEUT % 67.7 % (42.8-82.8); PLATELET COUNT 148 K/MM3 (134-434); RDW 16.4 % (11.9-15.9); WHITE BLOOD COUNT 8.8 K/mm3 (4.0-10.0)
--- NOTE | 2018-04-12 13:23 | PN ---
Progress Note, Physician History of Present Illness: Pt seen and examined at bedside. He is awake and appears comfortable. - Current Medication List Current Medications: Active Medications Acetaminophen (Tylenol -) 650 mg PO Q4H PRN PRN Reason: FEVER Albuterol/Ipratropium (Duoneb -) 1 amp NEB RQID [facility] Last Admin: 04/12/18 11:20 Dose: Not Given Amlodipine Besylate (Norvasc -) 10 mg PO DAILY [facility] Last Admin: 04/12/18 12:12 Dose: 10 mg Atorvastatin Calcium (Lipitor -) 40 mg PO HS [facility] Last Admin: 04/12/18 03:58 Dose: 40 mg Carvedilol (Coreg -) 25 mg PO BID [facility] Last Admin: 04/12/18 12:12 Dose: 25 mg Chlorhexidine Gluconate (Hibiclens For Decolonization -) 1 applic TP [facility] Last Admin: 04/12/18 03:35 Dose: 1 applic Docusate Sodium (Colace -) 100 mg PO BID PRN PRN Reason: CONSTIPATION Last Admin: 04/12/18 12:16 Dose: 100 mg Duloxetine HCl (Cymbalta -) 20 mg PO BID [facility] Last Admin: 04/12/18 12:17 Dose: 20 mg Hydralazine HCl (Apresoline -) 25 mg PO BID [facility] Last Admin: 04/12/18 12:12 Dose: 25 mg Vancomycin HCl (Vancomycin 1 Gm Premix -) 1 gm in 200 mls @ 200 mls/hr IVPB DAILY@1700 [facility]; Protocol Piperacillin Sod/Tazobactam (Sod 3.375 gm/ Dextrose) 50 mls @ 100 mls/hr IVPB Q8H-IV [facility]; Protocol Insulin Aspart (Novolog Vial Sliding Scale -) 1 vial SQ ACHS [facility]; Protocol Insulin Detemir (Levemir Vial) 18 units SQ AM [facility] Mupirocin (Bactroban Ointment (For Decolonization) -) 1 applic NS BID [facility] Stop: 04/16/18 09:59 Last Admin: 04/12/18 12:17 Dose: Not Given Mycophenolate Sodium (Mycophenolic Acid) 360 mg PO BID [facility] Last Admin: 04/12/18 12:17 Dose: 360 mg Pantoprazole Sodium (Protonix -) 40 mg PO DAILY [facility] Prednisone (Deltasone -) 5 mg PO DAILY [facility] Last Admin: 04/12/18 12:12 Dose: 5 mg Tacrolimus (Prograf) 1 mg PO BID [facility] Last Admin: 04/12/18 12:17 Dose: 1 mg - Objective Vital Signs: Vital Signs Temperature 97.8 F 04/12/18 04:20 Pulse Rate 70 04/12/18 04:20 Respiratory Rate 18 04/12/18 04:20 Blood Pressure 125/60 04/12/18 04:20 O2 Sat by Pulse Oximetry (%) 99 04/11/18 18:30 Constitutional: Yes: Calm Eyes: Yes: Conjunctiva Clear HENT: Yes: Atraumatic Neck: Yes: Supple Cardiovascular: Yes: S1, S2 Respiratory: Yes: CTA Bilaterally Gastrointestinal: Yes: Soft Genitourinary: Yes: Other (graft soft and non tender) Musculoskeletal: Yes: WNL Edema: No Neurological: Yes: Oriented Psychiatric: Yes: Oriented Labs: CBC, BMP 04/12/18 12:15 INR, PTT INR 1.10 (0.82-1.09) 04/11/18 07:05 Problem List - Problems (1) Hemoptysis Code(s): R04.2 - HEMOPTYSIS (2) PNA (pneumonia) Code(s): J18.9 - PNEUMONIA, UNSPECIFIED ORGANISM Qualifiers: Pneumonia type: due to unspecified organism Laterality: unspecified laterality Lung location: unspecified part of lung Qualified Code(s): J18.9 - Pneumonia, unspecified organism (3) Vomiting Code(s): R11.10 - VOMITING, UNSPECIFIED Assessment/Plan Current Medications Generic Name Dose Route Start Last Admin Trade Name [place]field PRN Reason Stop Dose Admin Acetaminophen 650 mg 04/10/18 18:20 Tylenol - PO Q4H PRN FEVER Albuterol/Ipratropium 1 amp 04/10/18 20:00 04/12/18 11:20 Duoneb - NEB Not Given RQID [facility] Amlodipine Besylate 10 mg 04/11/18 10:00 04/12/18 12:12 Norvasc - PO 10 mg DAILY [facility] Administration Atorvastatin Calcium 40 mg 04/10/18 22:00 04/12/18 03:58 Lipitor - PO 40 mg HS [facility] Administration Carvedilol 25 mg 04/10/18 22:00 04/12/18 12:12 Coreg - PO 25 mg BID [facility] Administration Chlorhexidine Gluconate 1 applic 04/11/18 22:00 04/12/18 03:35 Hibiclens For Decolonization - TP 1 applic HS [facility] Administration Docusate Sodium 100 mg 04/10/18 18:20 04/12/18 12:16 Colace - PO 100 mg BID PRN Administration CONSTIPATION Duloxetine HCl 20 mg 04/10/18 22:00 04/12/18 12:17 Cymbalta - PO 20 mg BID [facility] Administration Hydralazine HCl 25 mg 04/10/18 22:00 04/12/18 12:12 Apresoline - PO 25 mg BID [facility] Administration Vancomycin HCl 1 gm in 200 mls @ 200 mls/hr 04/12/18 11:36 Vancomycin 1 Gm Premix - IVPB DAILY@1700 [facility] Protocol Piperacillin Sod/Tazobactam 50 mls @ 100 mls/hr 04/12/18 11:36 Sod 3.375 gm/ Dextrose IVPB Q8H-IV [facility] Protocol Insulin Aspart 1 vial 04/12/18 12:13 Novolog Vial Sliding Scale - SQ ACHS [facility] Protocol Insulin Detemir 18 units 04/13/18 07:00 Levemir Vial SQ AM [facility] Mupirocin 1 applic 04/11/18 10:00 04/12/18 12:17 Bactroban Ointment (For Decolonization) - NS 04/16/18 09:59 Not Given BID [facility] Mycophenolate Sodium 360 mg 04/10/18 22:00 04/12/18 12:17 Mycophenolic Acid PO 360 mg BID [facility] Administration Pantoprazole Sodium 40 mg 04/13/18 10:00 Protonix - PO DAILY [facility] Prednisone 5 mg 04/11/18 10:00 04/12/18 12:12 Deltasone - PO 5 mg DAILY [facility] Administration Tacrolimus 1 mg 04/10/18 22:00 04/12/18 12:17 Prograf PO 1 mg BID [facility] Administration Impression 1. CKD 2. kidney transplant 3. DM 4. hx of syncope 5. HTN 6. hyperlipidemia 7. CHF 8. fever 9. hemoptysis Plan - follow up labs - pt did get a dose of lasix yesterday - follow prograf level - cont current meds - will follow Dr Perez
[2018-04-12 13:24] LABS: ALBUMIN 2.8 g/dl (3.4-5.0); ALK PHOS 68 U/L (45-117); ANION GAP 8 (8-16); BILIRUBIN,TOTAL 0.4 mg/dL (0.2-1.0); BLOOD UREA NITROGEN 36 mg/dL (7-18); CHLORIDE 103 mmol/L (98-107); CO2 25 mmol/L (21-32); CREATININE 1.3 mg/dL (0.7-1.3); GLUCOSE,RANDOM 253 mg/dL (74-106); POTASSIUM 4.4 mmol/L (3.5-5.1); SGOT/AST 9 U/L (15-37); SGPT/ALT 14 U/L (12-78); SODIUM 136 mmol/L (136-145); TOT PROT 5.7 g/dl (6.4-8.2)
--- NOTE | 2018-04-12 14:30 | PN ---
Progress Note, Physician History of Present Illness: PULMONARY ALERT,COMFORTABLE,-RESP DISTRESS - Current Medication List Current Medications: Active Medications Acetaminophen (Tylenol -) 650 mg PO Q4H PRN PRN Reason: FEVER Albuterol/Ipratropium (Duoneb -) 1 amp NEB RQID [facility] Last Admin: 04/12/18 13:33 Dose: Not Given Amlodipine Besylate (Norvasc -) 10 mg PO DAILY [facility] Last Admin: 04/12/18 12:12 Dose: 10 mg Atorvastatin Calcium (Lipitor -) 40 mg PO HS [facility] Last Admin: 04/12/18 03:58 Dose: 40 mg Carvedilol (Coreg -) 25 mg PO BID [facility] Last Admin: 04/12/18 12:12 Dose: 25 mg Chlorhexidine Gluconate (Hibiclens For Decolonization -) 1 applic TP [facility] Last Admin: 04/12/18 03:35 Dose: 1 applic Docusate Sodium (Colace -) 100 mg PO BID PRN PRN Reason: CONSTIPATION Last Admin: 04/12/18 12:16 Dose: 100 mg Duloxetine HCl (Cymbalta -) 20 mg PO BID [facility] Last Admin: 04/12/18 12:17 Dose: 20 mg Hydralazine HCl (Apresoline -) 25 mg PO BID [facility] Last Admin: 04/12/18 12:12 Dose: 25 mg Vancomycin HCl (Vancomycin 1 Gm Premix -) 1 gm in 200 mls @ 200 mls/hr IVPB DAILY@1700 [facility]; Protocol Piperacillin Sod/Tazobactam (Sod 3.375 gm/ Dextrose) 50 mls @ 100 mls/hr IVPB Q8H-IV [facility]; Protocol Insulin Aspart (Novolog Vial Sliding Scale -) 1 vial SQ ACHS [facility]; Protocol Insulin Detemir (Levemir Vial) 18 units SQ AM [facility] Mupirocin (Bactroban Ointment (For Decolonization) -) 1 applic NS BID [facility] Stop: 04/16/18 09:59 Last Admin: 04/12/18 12:17 Dose: Not Given Mycophenolate Sodium (Mycophenolic Acid) 360 mg PO BID [facility] Last Admin: 04/12/18 12:17 Dose: 360 mg Pantoprazole Sodium (Protonix -) 40 mg PO DAILY [facility] Prednisone (Deltasone -) 5 mg PO DAILY [facility] Last Admin: 04/12/18 12:12 Dose: 5 mg Tacrolimus (Prograf) 1 mg PO BID [facility] Last Admin: 04/12/18 12:17 Dose: 1 mg - Objective Vital Signs: Vital Signs Temperature 97.8 F 04/12/18 04:20 Pulse Rate 70 04/12/18 04:20 Respiratory Rate 18 04/12/18 04:20 Blood Pressure 125/60 04/12/18 04:20 O2 Sat by Pulse Oximetry (%) 99 04/11/18 18:30 Constitutional: Yes: Well Nourished, Calm Eyes: Yes: WNL HENT: Yes: WNL Neck: Yes: WNL Cardiovascular: Yes: Regular Rate and Rhythm, S1, S2 Respiratory: Yes: Rales (RALES THROUGHOUT LEFT LUNG) Gastrointestinal: Yes: Normal Bowel Sounds, Soft Extremities: Yes: WNL Edema: No Labs: CBC, BMP 04/12/18 12:15 04/12/18 12:15 INR, PTT INR 1.10 (0.82-1.09) 04/11/18 07:05 - ....Imaging Cat Scan: Report Reviewed, Image Reviewed Problem List - Problems (1) Immunocompromised patient Code(s): D84.9 - IMMUNODEFICIENCY, UNSPECIFIED (2) PNA (pneumonia) Code(s): J18.9 - PNEUMONIA, UNSPECIFIED ORGANISM Qualifiers: Pneumonia type: due to unspecified organism Laterality: unspecified laterality Lung location: unspecified part of lung Qualified Code(s): J18.9 - Pneumonia, unspecified organism (3) Controlled diabetes mellitus with nephropathy Code(s): E11.21 - TYPE 2 DIABETES MELLITUS WITH DIABETIC NEPHROPATHY (4) H/O kidney transplant Code(s): Z94.0 - KIDNEY TRANSPLANT STATUS (5) HTN (hypertension) Code(s): I10 - ESSENTIAL (PRIMARY) HYPERTENSION Qualifiers: (6) Hx of CABG Code(s): Z95.1 - PRESENCE OF AORTOCORONARY BYPASS GRAFT (7) Kidney transplant recipient Code(s): Z94.0 - KIDNEY TRANSPLANT STATUS (8) IDDM (insulin dependent diabetes mellitus) Code(s): E11.9 - TYPE 2 DIABETES MELLITUS WITHOUT COMPLICATIONS; Z79.4 - [employer] (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 OF INSULIN (9) Immunocompromised patient Code(s): D84.9 - IMMUNODEFICIENCY, UNSPECIFIED Assessment/Plan Assessment/Plan Pneumonia Sepsis Hypoxia resolved r/o GI Bleed Anemia HTN DM CAD s/p CABG h/o DVT s/p IVC filter h/o renal transplant - IV antibiotics - IVF - monitor urine output, creatinine - O2 to keep SpO2 >90% - continue immunosuppressants - check tacro level - GI eval - monitor H/H - protonix DR PALOMO
[2018-04-12] MEDS ORDERED: PT OWN MED DRAWER 7, Y5N ONE (21:32)
[2018-04-13] MEDS ORDERED: PT OWN MED DRAWER 7, Y5N ONE ×5 (00:41→20:34)
[2018-04-13] MEDS: PIPERACILLIN/TAZOB 3.375 GM 3.375 GM in SODIUM CHLORIDE 50 ML IVPB SCH ×3 (01:14→17:26)
[2018-04-13] MEDS: INSULIN SLIDING SCALE (NOVOLOG) 1 VIAL SQ SCH ×4 (06:21→21:39)
[2018-04-13] MEDS ORDERED: INSULIN (LEVEMIR) 100 UNITS/ML UNITS SQ SCH ×2 (07:00→21:57)
[2018-04-13] MEDS: ALBUTEROL SO4 2.5/IPRATROPIUM 0.5 INH SOL 3 ML VIAL.NEB. NEB SCH ×4 (07:44→21:25)
[2018-04-13] MEDS: amLODIPine BESYLATE 10 MG TABLET (FP) PO SCH (09:57)
[2018-04-13] MEDS: hydrALAZINE HCL 25 MG TABLET (FP) PO SCH ×2 (09:57→21:41)
[2018-04-13] MEDS: CARVEDILOL 25 MG TABLET (FP) PO SCH ×2 (09:57→21:41)
[2018-04-13] MEDS: PANTOPRAZOLE 40 MG TABLET (FP) PO SCH (09:58)
[2018-04-13] MEDS: predniSONE 5 MG TABLET (UD) PO SCH (09:58)
[2018-04-13] MEDS: DULoxetine HCL 20 MG CAPSULE.DR (FP) PO SCH ×2 (10:01→21:41)
[2018-04-13] MEDS: MYCOPHENOLATE SODIUM 360 MG TABLET.DR PO SCH ×2 (10:02→21:41)
[2018-04-13] MEDS: TACROLIMUS ANHYDROUS 1 MG CAPSULE PO SCH ×2 (10:02→21:41)
--- NOTE | 2018-04-13 10:48 | PN ---
Progress Note (short form) - Note Progress Note: PULMONARY Denies shortness of breath or chest pain. No fevers or chills. No cough. Last Vital Signs Temp Pulse Resp BP Pulse Ox 98.0 F 72 18 132/46 99 04/13/18 09:51 04/13/18 09:51 04/13/18 09:51 04/13/18 09:51 04/12/18 20:22 Gen: NAD at rest Heart: RRR Lung: decreased breath sounds at the bases Abd: soft, nontender EXt: no edema CBC, BMP 04/12/18 12:15 04/12/18 12:15 Active Medications Acetaminophen (Tylenol -) 650 mg PO Q4H PRN PRN Reason: FEVER Albuterol/Ipratropium (Duoneb -) 1 amp NEB RQID [facility] Last Admin: 04/13/18 07:44 Dose: Not Given Amlodipine Besylate (Norvasc -) 10 mg PO DAILY [facility] Last Admin: 04/13/18 09:57 Dose: Not Given Atorvastatin Calcium (Lipitor -) 40 mg PO HS [facility] Last Admin: 04/12/18 21:51 Dose: 40 mg Carvedilol (Coreg -) 25 mg PO BID [facility] Last Admin: 04/13/18 09:57 Dose: Not Given Docusate Sodium (Colace -) 100 mg PO BID PRN PRN Reason: CONSTIPATION Last Admin: 04/12/18 12:16 Dose: 100 mg Duloxetine HCl (Cymbalta -) 20 mg PO BID [facility] Last Admin: 04/13/18 10:01 Dose: 20 mg Hydralazine HCl (Apresoline -) 25 mg PO BID [facility] Last Admin: 04/13/18 09:57 Dose: Not Given Piperacillin Sod/Tazobactam (Sod 3.375 gm/ Sodium Chloride) 50 mls @ 100 mls/ hr IVPB Q8H-IV [facility]; Protocol Last Admin: 04/13/18 09:59 Dose: 100 mls/hr Vancomycin HCl 1,000 mg/ (Sodium Chloride) 250 mls @ 166.667 mls/hr IVPB DAILY@ 1700 [facility]; Protocol Insulin Aspart (Novolog Vial Sliding Scale -) 1 vial SQ ACHS [facility]; Protocol Last Admin: 04/13/18 06:21 Dose: 4 units Insulin Detemir (Levemir Vial) 18 units SQ AM [facility] Last Admin: 04/13/18 06:23 Dose: 18 units Mycophenolate Sodium (Mycophenolic Acid) 360 mg PO BID [facility] Last Admin: 04/13/18 10:02 Dose: 360 mg Pantoprazole Sodium (Protonix -) 40 mg PO DAILY [facility] Last Admin: 04/13/18 09:58 Dose: 40 mg Prednisone (Deltasone -) 5 mg PO DAILY [facility] Last Admin: 04/13/18 09:58 Dose: 5 mg Tacrolimus (Prograf) 1 mg PO BID [facility] Last Admin: 04/13/18 10:02 Dose: 1 mg A/P Pneumonia improving Sepsis improved Hypoxia resolved r/o GI Bleed Anemia HTN DM CAD s/p CABG h/o DVT s/p IVC filter h/o renal transplant - antibiotics per ID - O2 to keep SpO2 >90% - continue immunosuppressants - DVT prophylaxis
--- NOTE | 2018-04-13 10:57 | PN ---
Progress Note (short form) - Note Progress Note: ID Vancomycin Zosyn day 1 therapy No further fever Selected Entries 04/13/18 09:51 Temperature 98.0 F Pulse Rate 72 Respiratory 18 Rate Blood Pressure 132/46 Microbiology 04/11/18 00:07 Urine - Urine Clean Catch Urine Culture - Final NO GROWTH OBTAINED 04/10/18 14:18 Blood - Peripheral Venous Blood Culture - Preliminary NO GROWTH OBTAINED AFTER 48 HOURS, INCUBATION TO CONTINUE FOR 3 DAYS. 04/10/18 14:16 Blood - Peripheral Venous Blood Culture - Preliminary NO GROWTH OBTAINED AFTER 48 HOURS, INCUBATION TO CONTINUE FOR 3 DAYS. Laboratory Tests 04/12/18 04/12/18 12:15 12:15 WBC 8.8 D Hgb 11.6 L Hct 34.8 L Plt Count 148 BUN 36 H Creatinine 1.3 Creat Clearance w eGFR 53.67 Assessment Renal transplant patient in and out of the hospital admitted with fever and PNA EMPIRIC BLood cultures no growth Plan NARES screening MRSA if neg stop contact isolation Continue Zosyn Discussed with primary care Sharri Xiong
--- NOTE | 2018-04-13 14:54 | PN ---
Progress Note, Physician History of Present Illness: Denies nausea, vomiting, abdominal pain, diarrhea. Tolerating regular diet. Has no specific complaints. No acute events overnight. - Current Medication List Current Medications: Active Medications Acetaminophen (Tylenol -) 650 mg PO Q4H PRN PRN Reason: FEVER Albuterol/Ipratropium (Duoneb -) 1 amp NEB RQID [facility] Last Admin: 04/13/18 11:08 Dose: 1 amp Amlodipine Besylate (Norvasc -) 10 mg PO DAILY [facility] Last Admin: 04/13/18 09:57 Dose: Not Given Atorvastatin Calcium (Lipitor -) 40 mg PO HS [facility] Last Admin: 04/12/18 21:51 Dose: 40 mg Carvedilol (Coreg -) 25 mg PO BID [facility] Last Admin: 04/13/18 09:57 Dose: Not Given Docusate Sodium (Colace -) 100 mg PO BID PRN PRN Reason: CONSTIPATION Last Admin: 04/12/18 12:16 Dose: 100 mg Duloxetine HCl (Cymbalta -) 20 mg PO BID [facility] Last Admin: 04/13/18 10:01 Dose: 20 mg Hydralazine HCl (Apresoline -) 25 mg PO BID [facility] Last Admin: 04/13/18 09:57 Dose: Not Given Piperacillin Sod/Tazobactam (Sod 3.375 gm/ Sodium Chloride) 50 mls @ 100 mls/ hr IVPB Q8H-IV [facility]; Protocol Last Admin: 04/13/18 09:59 Dose: 100 mls/hr Insulin Aspart (Novolog Vial Sliding Scale -) 1 vial SQ ACHS [facility]; Protocol Last Admin: 04/13/18 11:58 Dose: 2 units Insulin Detemir (Levemir Vial) 18 units SQ AM [facility] Last Admin: 04/13/18 06:23 Dose: 18 units Mycophenolate Sodium (Mycophenolic Acid) 360 mg PO BID [facility] Last Admin: 04/13/18 10:02 Dose: 360 mg Pantoprazole Sodium (Protonix -) 40 mg PO DAILY [facility] Last Admin: 04/13/18 09:58 Dose: 40 mg Prednisone (Deltasone -) 5 mg PO DAILY [facility] Last Admin: 04/13/18 09:58 Dose: 5 mg Tacrolimus (Prograf) 1 mg PO BID [facility] Last Admin: 04/13/18 10:02 Dose: 1 mg - Objective Vital Signs: Vital Signs Temperature 97.7 F 04/13/18 13:34 Pulse Rate 72 04/13/18 09:51 Respiratory Rate 20 04/13/18 13:34 Blood Pressure 108/40 04/13/18 13:34 O2 Sat by Pulse Oximetry (%) 95 04/13/18 09:00 Constitutional: Yes: No Distress, Calm, Pallor Eyes: Yes: Conjunctiva Clear HENT: Yes: Atraumatic Neck: Yes: Supple Gastrointestinal: Yes: Soft. No: Distention, Tenderness Neurological: Yes: Alert Labs: CBC, BMP 04/12/18 12:15 04/12/18 12:15 INR, PTT INR 1.10 (0.82-1.09) 04/11/18 07:05 Laboratory Last Values WBC 8.8 K/mm3 (4.0-10.0) D 04/12/18 12:15 RBC 3.90 M/mm3 (4.00-5.60) L 04/12/18 12:15 Hgb 11.6 GM/dL (11.7-16.9) L 04/12/18 12:15 Hct 34.8 % (35.4-49) L 04/12/18 12:15 MCV 89.1 fl (80-96) 04/12/18 12:15 MCH 29.7 pg (25.7-33.7) 04/12/18 12:15 MCHC 33.3 g/dl (32.0-35.9) 04/12/18 12:15 RDW 16.4 % (11.9-15.9) H 04/12/18 12:15 Plt Count 148 K/MM3 (134-434) 04/12/18 12:15 MPV 8.2 fl (7.5-11.1) 04/12/18 12:15 Neutrophils % 67.7 % (42.8-82.8) 04/12/18 12:15 Lymphocytes % 19.4 % (8-40) D 04/12/18 12:15 Monocytes % 9.2 % (3.8-10.2) 04/12/18 12:15 Eosinophils % 3.2 % (0-4.5) D 04/12/18 12:15 Basophils % 0.5 % (0-2.0) 04/12/18 12:15 Nucleated RBC % 0 % (0-0) 04/12/18 12:15 PT with INR 12.40 SEC (9.7-13.0) 04/11/18 07:05 INR 1.10 (0.82-1.09) 04/11/18 07:05 PTT (Actin FS) 22.6 SECONDS (26.9-34.4) L 04/10/18 14:16 VBG pH 7.40 (7.32-7.42) D 04/10/18 14:16 POC VBG pCO2 41.3 mmHg (38-52) D 04/10/18 14:16 POC VBG pO2 60.8 mmHg (28-48) H D 04/10/18 14:16 Mixed VBG HCO3 24.8 meq/L (19-25) 04/10/18 14:16 Sodium 136 mmol/L (136-145) 04/12/18 12:15 Potassium 4.4 mmol/L (3.5-5.1) 04/12/18 12:15 Chloride 103 mmol/L (98-107) 04/12/18 12:15 Carbon Dioxide 25 mmol/L (21-32) 04/12/18 12:15 Anion Gap 8 (8-16) 04/12/18 12:15 BUN 36 mg/dL (7-18) H 04/12/18 12:15 Creatinine 1.3 mg/dL (0.7-1.3) 04/12/18 12:15 Creat Clearance w eGFR 53.67 (>60) 04/12/18 12:15 POC Glucometer 243 UNITS (80-120) 04/13/18 11:32 Random Glucose 253 mg/dL (74-106) H D 04/12/18 12:15 Hemoglobin A1c % 9.2 % (4.8-6.0) H D 04/11/18 07:52 Lactic Acid 1.6 mmol/L (0.0-2.0) 04/10/18 14:16 Calcium 8.0 mg/dL (8.5-10.1) L 04/12/18 12:15 Phosphorus 2.2 mg/dL (2.5-4.9) L D 04/10/18 14:16 Magnesium 1.8 mg/dL (1.8-2.4) 04/11/18 07:00 Total Bilirubin 0.4 mg/dL (0.2-1.0) 04/12/18 12:15 AST 9 U/L (15-37) L 04/12/18 12:15 ALT 14 U/L (12-78) 04/12/18 12:15 Alkaline Phosphatase 68 U/L (45-117) 04/12/18 12:15 Troponin I 0.02 ng/ml (0.00-0.05) 04/11/18 07:17 Total Protein 5.7 g/dl (6.4-8.2) L 04/12/18 12:15 Albumin 2.8 g/dl (3.4-5.0) L 04/12/18 12:15 Triglycerides 93 mg/dL (35-160) D 04/11/18 07:55 Cholesterol 116 mg/dL (50-200) D 04/11/18 07:55 Total LDL Cholesterol 55 mg/dL (5-100) D 04/11/18 07:55 HDL Cholesterol 52 mg/dL (40-60) 04/11/18 07:55 Urine Color Ltyellow 04/11/18 00:07 Urine Appearance Clear 04/11/18 00:07 Urine pH 5.0 (5.0-8.0) 04/11/18 00:07 Ur Specific Bison 1.014 (1.001-1.035) 04/11/18 00:07 Urine Protein Negative (NEGATIVE) 04/11/18 00:07 Urine Glucose (UA) Negative (NEGATIVE) 04/11/18 00:07 Urine Ketones Negative (NEGATIVE) 04/11/18 00:07 Urine Blood Negative (NEGATIVE) 04/11/18 00:07 Urine Nitrite Negative (NEGATIVE) 04/11/18 00:07 Urine Bilirubin Negative (<2.0 mg/dL) 04/11/18 00:07 Urine Urobilinogen Negative mg/dL (0.2-1.0) 04/11/18 00:07 Ur Leukocyte Esterase Negative (NEGATIVE) 04/11/18 00:07 Tacrolimus 5.2 ng/mL (2.0-20.0) 04/10/18 14:00 Problem List - Problems (1) Immunocompromised patient Code(s): D84.9 - IMMUNODEFICIENCY, UNSPECIFIED (2) Nausea & vomiting Code(s): R11.2 - NAUSEA WITH VOMITING, UNSPECIFIED Assessment/Plan Continue current management. Will follow peripherally.
--- NOTE | 2018-04-13 15:25 | PN ---
Progress Note, Physician History of Present Illness: Pt seen and examined at bedside. He is awake and alert. He denies shortness of breath. - Current Medication List Current Medications: Active Medications Acetaminophen (Tylenol -) 650 mg PO Q4H PRN PRN Reason: FEVER Albuterol/Ipratropium (Duoneb -) 1 amp NEB RQID [facility] Last Admin: 04/13/18 15:12 Dose: Not Given Amlodipine Besylate (Norvasc -) 10 mg PO DAILY [facility] Last Admin: 04/13/18 09:57 Dose: Not Given Atorvastatin Calcium (Lipitor -) 40 mg PO HS [facility] Last Admin: 04/12/18 21:51 Dose: 40 mg Carvedilol (Coreg -) 25 mg PO BID [facility] Last Admin: 04/13/18 09:57 Dose: Not Given Docusate Sodium (Colace -) 100 mg PO BID PRN PRN Reason: CONSTIPATION Last Admin: 04/12/18 12:16 Dose: 100 mg Duloxetine HCl (Cymbalta -) 20 mg PO BID [facility] Last Admin: 04/13/18 10:01 Dose: 20 mg Hydralazine HCl (Apresoline -) 25 mg PO BID [facility] Last Admin: 04/13/18 09:57 Dose: Not Given Piperacillin Sod/Tazobactam (Sod 3.375 gm/ Sodium Chloride) 50 mls @ 100 mls/ hr IVPB Q8H-IV [facility]; Protocol Last Admin: 04/13/18 09:59 Dose: 100 mls/hr Insulin Aspart (Novolog Vial Sliding Scale -) 1 vial SQ ACHS [facility]; Protocol Last Admin: 04/13/18 11:58 Dose: 2 units Insulin Detemir (Levemir Vial) 18 units SQ AM [facility] Last Admin: 04/13/18 06:23 Dose: 18 units Mycophenolate Sodium (Mycophenolic Acid) 360 mg PO BID [facility] Last Admin: 04/13/18 10:02 Dose: 360 mg Pantoprazole Sodium (Protonix -) 40 mg PO DAILY [facility] Last Admin: 04/13/18 09:58 Dose: 40 mg Prednisone (Deltasone -) 5 mg PO DAILY [facility] Last Admin: 04/13/18 09:58 Dose: 5 mg Tacrolimus (Prograf) 1 mg PO BID [facility] Last Admin: 04/13/18 10:02 Dose: 1 mg - Objective Vital Signs: Vital Signs Temperature 97.7 F 04/13/18 13:34 Pulse Rate 72 04/13/18 09:51 Respiratory Rate 20 04/13/18 13:34 Blood Pressure 108/40 04/13/18 13:34 O2 Sat by Pulse Oximetry (%) 95 04/13/18 09:00 Constitutional: Yes: Calm Eyes: Yes: Conjunctiva Clear HENT: Yes: Atraumatic Cardiovascular: Yes: S1, S2 Respiratory: Yes: CTA Bilaterally Gastrointestinal: Yes: Soft Genitourinary: Yes: Other (graft is soft) Musculoskeletal: Yes: WNL Edema: No Neurological: Yes: Confusion Labs: CBC, BMP 04/12/18 12:15 04/12/18 12:15 INR, PTT INR 1.10 (0.82-1.09) 04/11/18 07:05 Problem List - Problems (1) Hemoptysis Code(s): R04.2 - HEMOPTYSIS (2) PNA (pneumonia) Code(s): J18.9 - PNEUMONIA, UNSPECIFIED ORGANISM Qualifiers: Pneumonia type: due to unspecified organism Laterality: unspecified laterality Lung location: unspecified part of lung Qualified Code(s): J18.9 - Pneumonia, unspecified organism (3) Vomiting Code(s): R11.10 - VOMITING, UNSPECIFIED Assessment/Plan Current Medications Generic Name Dose Route Start Last Admin Trade Name Freq PRN Reason Stop Dose Admin Acetaminophen 650 mg 04/10/18 18:20 Tylenol - PO Q4H PRN FEVER Albuterol/Ipratropium 1 amp 04/10/18 20:00 04/13/18 15:12 Duoneb - NEB Not Given RQID HUGO Amlodipine Besylate 10 mg 04/11/18 10:00 04/13/18 09:57 Norvasc - PO Not Given DAILY HUGO Atorvastatin Calcium 40 mg 04/10/18 22:00 04/12/18 21:51 Lipitor - PO 40 mg HS HUGO Administration Carvedilol 25 mg 04/10/18 22:00 04/13/18 09:57 Coreg - PO Not Given BID HUGO Docusate Sodium 100 mg 04/10/18 18:20 04/12/18 12:16 Colace - PO 100 mg BID PRN Administration CONSTIPATION Duloxetine HCl 20 mg 04/10/18 22:00 04/13/18 10:01 Cymbalta - PO 20 mg BID HUGO Administration Hydralazine HCl 25 mg 04/10/18 22:00 04/13/18 09:57 Apresoline - PO Not Given BID HUGO Piperacillin Sod/Tazobactam 50 mls @ 100 mls/hr 04/13/18 02:00 04/13/18 09:59 Sod 3.375 gm/ Sodium Chloride IVPB 100 mls/hr Q8H-IV HUGO Administration Protocol Insulin Aspart 1 vial 04/12/18 12:13 04/13/18 11:58 Novolog Vial Sliding Scale - SQ 2 units ACHS HUGO Administration Protocol Insulin Detemir 18 units 04/13/18 07:00 04/13/18 06:23 Levemir Vial SQ 18 units AM HUGO Administration Mycophenolate Sodium 360 mg 04/10/18 22:00 04/13/18 10:02 Mycophenolic Acid PO 360 mg BID HUGO Administration Pantoprazole Sodium 40 mg 04/13/18 10:00 04/13/18 09:58 Protonix - PO 40 mg DAILY HUGO Administration Prednisone 5 mg 04/11/18 10:00 04/13/18 09:58 Deltasone - PO 5 mg DAILY HUGO Administration Tacrolimus 1 mg 04/10/18 22:00 04/13/18 10:02 Prograf PO 1 mg BID HUGO Administration Impression 1. CKD 2. kidney transplant 3. DM 4. hx of syncope 5. HTN 6. hyperlipidemia 7. CHF 8. fever 9. hemoptysis Plan - repeat bmp in am - cont transplant meds - prograf level reviewed - ID input appreciated - will follow Dr Perez
[2018-04-13] MEDS ORDERED: VANCOMYCIN 1,000 MG in SODIUM CHLORIDE 250 ML IVPB SCH (17:00)
[2018-04-13] MEDS: ATORVASTATIN CA 40 MG TABLET (FP) PO SCH (21:41)
--- NOTE | 2018-04-13 22:00 | PN ---
Progress Note, Physician Chief Complaint: NAUSEA/VOMITING/ PNE History of Present Illness: NAD Feels better seen by ID, GI and Nephrology CT chest showed GUCCI pne on IV abx on protonix - Current Medication List Current Medications: Active Medications Acetaminophen (Tylenol -) 650 mg PO Q4H PRN PRN Reason: FEVER Albuterol/Ipratropium (Duoneb -) 1 amp NEB RQID [facility] Last Admin: 04/13/18 15:12 Dose: Not Given Amlodipine Besylate (Norvasc -) 10 mg PO DAILY [facility] Last Admin: 04/13/18 09:57 Dose: Not Given Atorvastatin Calcium (Lipitor -) 40 mg PO HS [facility] Last Admin: 04/13/18 21:41 Dose: 40 mg Carvedilol (Coreg -) 25 mg PO BID [facility] Last Admin: 04/13/18 21:41 Dose: 25 mg Docusate Sodium (Colace -) 100 mg PO BID PRN PRN Reason: CONSTIPATION Last Admin: 04/12/18 12:16 Dose: 100 mg Duloxetine HCl (Cymbalta -) 20 mg PO BID [facility] Last Admin: 04/13/18 21:41 Dose: 20 mg Hydralazine HCl (Apresoline -) 25 mg PO BID [facility] Last Admin: 04/13/18 21:41 Dose: 25 mg Piperacillin Sod/Tazobactam (Sod 3.375 gm/ Sodium Chloride) 50 mls @ 100 mls/ hr IVPB Q8H-IV [facility]; Protocol Last Admin: 04/13/18 17:26 Dose: 100 mls/hr Insulin Aspart (Novolog Vial Sliding Scale -) 1 vial SQ ACHS [facility]; Protocol Last Admin: 04/13/18 21:39 Dose: 5 units Insulin Detemir (Levemir Vial) 20 units SQ AM [facility] Mycophenolate Sodium (Mycophenolic Acid) 360 mg PO BID [facility] Last Admin: 04/13/18 21:41 Dose: 360 mg Pantoprazole Sodium (Protonix -) 40 mg PO DAILY [facility] Last Admin: 04/13/18 09:58 Dose: 40 mg Prednisone (Deltasone -) 5 mg PO DAILY [facility] Last Admin: 04/13/18 09:58 Dose: 5 mg Tacrolimus (Prograf) 1 mg PO BID [facility] Last Admin: 04/13/18 21:41 Dose: 1 mg - Objective Vital Signs: Vital Signs Temperature 98.0 F 04/13/18 16:57 Pulse Rate 75 04/13/18 16:57 Respiratory Rate 18 04/13/18 16:57 Blood Pressure 122/50 04/13/18 16:57 O2 Sat by Pulse Oximetry (%) 95 04/13/18 09:00 Constitutional: Yes: Well Nourished, No Distress, Calm Cardiovascular: Yes: Regular Rate and Rhythm Respiratory: Yes: Rhonchi (diffuse) Gastrointestinal: Yes: Normal Bowel Sounds, Soft Musculoskeletal: Yes: WNL Extremities: Yes: WNL Edema: No Peripheral Pulses WNL: Yes Neurological: Yes: Alert, Oriented Psychiatric: Yes: Alert, Oriented Labs: CBC, BMP 04/12/18 12:15 04/12/18 12:15 INR, PTT INR 1.10 (0.82-1.09) 04/11/18 07:05 Problem List - Problems (1) Nausea & vomiting Assessment/Plan: -resolved -seen by GI -on PPI Code(s): R11.2 - NAUSEA WITH VOMITING, UNSPECIFIED (2) PNA (pneumonia) Assessment/Plan: -GUCCI -Seen by Pulmonary and ID -On IV abx -Nasal o2 as needed, keep Spo2 >90% -Bronchodilators as needed Code(s): J18.9 - PNEUMONIA, UNSPECIFIED ORGANISM Qualifiers: Pneumonia type: due to unspecified organism Laterality: unspecified laterality Lung location: unspecified part of lung Qualified Code(s): J18.9 - Pneumonia, unspecified organism (3) DM2 (diabetes mellitus, type 2) Assessment/Plan: -A1C at 9.2 -started on Levemir -Endocrinology consult -BGM ACHS -Insulin Novolog sliding scale -diabetic diet -Please administer all IV abx with NS instead of D5W Code(s): E11.9 - TYPE 2 DIABETES MELLITUS WITHOUT COMPLICATIONS Qualifiers: Diabetes mellitus ferry terminal agent insulin use: with skilled nursing use (4) History of MRSA infection Assessment/Plan: -Maintain Contact isolation -ID on board Code(s): Z86.14 - PERSONAL HISTORY OF METHICILLIN RESIS STAPH INFECTION Assessment/Plan see problem list
[2018-04-14] MEDS ORDERED: PT OWN MED DRAWER 7, Y5N ONE (02:57)
[2018-04-14] MEDS: PIPERACILLIN/TAZOB 3.375 GM 3.375 GM in SODIUM CHLORIDE 50 ML IVPB SCH ×2 (03:09→09:36)
[2018-04-14] MEDS: INSULIN SLIDING SCALE (NOVOLOG) 1 VIAL SQ SCH ×3 (06:20→17:31)
[2018-04-14] MEDS: ALBUTEROL SO4 2.5/IPRATROPIUM 0.5 INH SOL 3 ML VIAL.NEB. NEB SCH ×3 (08:02→15:28)
--- NOTE | 2018-04-14 08:02 | PN ---
Progress Note, Physician Chief Complaint: ID Some couph but no SOB Says he is back to baseline Ambulates eating well Still on IV antibiotics Zosyn Day 4 antibiotics - Current Medication List Current Medications: Active Medications Acetaminophen (Tylenol -) 650 mg PO Q4H PRN PRN Reason: FEVER Albuterol/Ipratropium (Duoneb -) 1 amp NEB RQID [facility] Last Admin: 04/13/18 21:25 Dose: 1 amp Amlodipine Besylate (Norvasc -) 10 mg PO DAILY [facility] Last Admin: 04/13/18 09:57 Dose: Not Given Atorvastatin Calcium (Lipitor -) 40 mg PO HS [facility] Last Admin: 04/13/18 21:41 Dose: 40 mg Carvedilol (Coreg -) 25 mg PO BID [facility] Last Admin: 04/13/18 21:41 Dose: 25 mg Docusate Sodium (Colace -) 100 mg PO BID PRN PRN Reason: CONSTIPATION Last Admin: 04/12/18 12:16 Dose: 100 mg Duloxetine HCl (Cymbalta -) 20 mg PO BID [facility] Last Admin: 04/13/18 21:41 Dose: 20 mg Hydralazine HCl (Apresoline -) 25 mg PO BID [facility] Last Admin: 04/13/18 21:41 Dose: 25 mg Piperacillin Sod/Tazobactam (Sod 3.375 gm/ Sodium Chloride) 50 mls @ 100 mls/ hr IVPB Q8H-IV [facility]; Protocol Last Admin: 04/14/18 03:09 Dose: 100 mls/hr Insulin Aspart (Novolog Vial Sliding Scale -) 1 vial SQ ACHS [facility]; Protocol Last Admin: 04/14/18 06:20 Dose: 2 units Insulin Detemir (Levemir Vial) 20 units SQ AM [facility] Last Admin: 04/14/18 06:20 Dose: 20 unit Mycophenolate Sodium (Mycophenolic Acid) 360 mg PO BID [facility] Last Admin: 04/13/18 21:41 Dose: 360 mg Pantoprazole Sodium (Protonix -) 40 mg PO DAILY [facility] Last Admin: 04/13/18 09:58 Dose: 40 mg Prednisone (Deltasone -) 5 mg PO DAILY [facility] Last Admin: 04/13/18 09:58 Dose: 5 mg Tacrolimus (Prograf) 1 mg PO BID [facility] Last Admin: 05/24/18 21:41 Dose: 1 mg - Objective Vital Signs: Vital Signs Temperature 98.6 F 04/14/18 05:43 Pulse Rate 75 04/14/18 05:43 Respiratory Rate 20 04/14/18 05:43 Blood Pressure 141/43 04/14/18 05:43 O2 Sat by Pulse Oximetry (%) 95 04/13/18 21:00 Constitutional: Yes: No Distress HENT: Yes: WNL, Atraumatic Neck: Yes: WNL, Supple Cardiovascular: Yes: S1, S2 Respiratory: Yes: Regular, CTA Bilaterally Gastrointestinal: Yes: Soft. No: Tenderness, Tenderness, Epigastrium Edema: No Labs: CBC, BMP 04/12/18 12:15 04/12/18 12:15 INR, PTT INR 1.10 (0.82-1.09) 04/11/18 07:05 Assessment/Plan Microbiology 04/12/18 19:20 Urine For Antigen Detection Legionella Antigen - Final 04/12/18 19:20 Urine For Antigen Detection Streptococcus pneumoniae Antigen (M - Final 04/11/18 00:07 Urine - Urine Clean Catch Urine Culture - Final NO GROWTH OBTAINED 04/10/18 14:18 Blood - Peripheral Venous Blood Culture - Preliminary NO GROWTH OBTAINED AFTER 72 HOURS, INCUBATION TO CONTINUE FOR 2 DAYS. 04/10/18 14:16 Blood - Peripheral Venous Blood Culture - Preliminary NO GROWTH OBTAINED AFTER 72 HOURS, INCUBATION TO CONTINUE FOR 2 DAYS. Laboratory Tests 04/10/18 04/10/18 04/11/18 14:00 14:21 07:05 WBC 13.4 H D 14.2 H Hgb Hct Plt Count BUN Creatinine Tacrolimus 5.2 04/12/18 04/12/18 12:15 12:15 WBC 8.8 D Hgb 11.6 L Hct 34.8 L Plt Count 148 BUN 36 H Creatinine 1.3 Tacrolimus Assessment PNA unspecified Hypoxemia resolved Seems to be doing well. Swallowing study planned Plan Consideration to an oral quinolone for home and discharge plan IF MRSA screen neg can stop isolation Erika SILVA
[2018-04-14] MEDS: predniSONE 5 MG TABLET (UD) PO SCH (09:36)
[2018-04-14] MEDS: hydrALAZINE HCL 25 MG TABLET (FP) PO SCH (09:36)
[2018-04-14] MEDS: CARVEDILOL 25 MG TABLET (FP) PO SCH (09:36)
[2018-04-14] MEDS: amLODIPine BESYLATE 10 MG TABLET (FP) PO SCH (09:36)
[2018-04-14] MEDS: PANTOPRAZOLE 40 MG TABLET (FP) PO SCH (09:36)
[2018-04-14] MEDS: MYCOPHENOLATE SODIUM 360 MG TABLET.DR PO SCH (09:37)
[2018-04-14] MEDS: DULoxetine HCL 20 MG CAPSULE.DR (FP) PO SCH (09:37)
[2018-04-14] MEDS: TACROLIMUS ANHYDROUS 1 MG CAPSULE PO SCH (09:37)
--- NOTE | 2018-04-14 10:09 | CONSULT ---
Admitting History and Physical - Primary Care Physician PCP: Nury Eid - Admission History of Present Illness: 78-year-old, immunocompromised patient with nausea, vomiting, abnormal chest CT and possible hemoptysis/hematemesis. ID:pneumonia- ?aspiration right vocal cord paralysis Pt with LT h/o dysphagia/aspiration documented during 4 MBS since 2017. Last MBS 03/22/2018 Silent aspiration again on thin liquid. Impulsive intake . REC: Soft moist cohesive food. nectar thick liquid. Pt counseled on eliminating thin liquid from diet and speech/swallowing tx was rec to improve vocal cord function and airway protection. Upon review with pt, he insisted that he was on thick liquids at home. I called pt's daughter who stated that pt is on reg diet and reg liquids at home and does well. She said he did not receive swallowing tx, as I recommended, upon d/ c. . I educated her on results of previous 4 mbs, silent aspiration, and need for nectar thick liquid. I provided her with info on ordering Simply thick thickener. Reviewed with PNP and CCC. History Source: Patient Limitations to Obtaining History: No Limitations - Past Medical History Cardiovascular: Yes: CAD, HTN, [place], Other Renal/: Yes: Other (S/P Kidney tranplant 2008. 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, osteomyelitis of his finger) Endocrine: Yes: Diabetes Mellitus - Past Surgical History Past Surgical History: Yes: AV Fistula/Graft (right upper arm, non working), CABG, Kidney Transplant (right 2008) - Smoking History Smoking history: Never smoked Have you smoked in the past 12 months: No Aproximately how many cigarettes per day: 0 - Alcohol/Substance Use Hx Alcohol Use: No History of Substance Use: reports: None - Social History ADL: Support Services History of Recent Travel: No History - Admission Reason For Visit: HEMOPTYSIS/PNEUMONIA - Diagnostics X-ray: Report Reviewed Modified Barium Swallow: Report Reviewed (x 4) - General Mental Status: Alert and Oriented, Awake and Alert, Able to Follow Commands Attention: Intact Ability to Follow Directions: Excellent Head/Neck Control: WFL - Hearing Hearing: Normal Hearing Aide: No Speech Evaluation - Communication Primary Language: WOLOF Secondary Language: SPANISH (fluent) Communication: Yes: Within Normal Limits Oral Expression Ability: Yes: No Impairment - Speech Production Able to Make Needs Known: Yes: WNL Intelligibility: Yes: WNL - Speech Characteristics Voice Loudness: Normal Voice Pitch: Yes: Normal Voice Phonatory-based Quality: Yes: Normal (improved vocal quality as compared to last admission) Speech Pattern: Normal Speech Clarity: < 100% Nasal Resonance: Normal Articulation: Yes: Precise Rate of Speech: Intact - Language/Auditory Comprehension Follows: Yes: 2 Stage Simple Commands Observation: Comprehends Conversational Speech: Yes - Language/Verbal Expression Able to Respond to Simple Queries: Yes: WNL Able to Communicate Wants and Needs: Yes: WNL Functional Communication Status: Yes: WNL - Swallow Evaluation/Bedside Assessment Current Nutritional Intake: Regular, Thin Liquids Oral Secretions: Yes: WFL Dentition: Yes: Adequate Facial Symmetry at Rest: Symmetrical Facial Symmetry on Retraction: Symmetrical Facial Movement: Controlled Against Resistance Opening: Normal Against Resistance Closing: Normal Pucker Lips: Normal Smile: Normal Lingual Movement: Normal, Symmetric Lingual Speed of Movement: Normal Lingual Movement Strgth Against Opposition: Normal Lingual Movement Characteristics: Normal Laryngeal Elevation: WFL Rate of Intake: WFL Labial Seal: WFL Chewing: WFL Oral Prep Time: WFL A-P Transit: WFL Pocketing: None Timing of Swallow: WFL Coughing/Throat Clear: Yes (thin liquid intermittently) Recommendations - Speech Evaluation, Impression/Plan Impression: Suspect recurrent silent aspiration with poor compliance for thickened liquids. Re-educated pt and daughter regarding results of previous 4 mbs, silent aspiration, and need for nectar thick liquid. I provided her with info on ordering Simply thick thickener. I suggested they bring pt in for an out pt MBS, and observe the exam. She said she is aware and that her father does not comply. PNP/CCC aware. Suggest homecare swallowing tx. - Disposition Discharge to: Home with Assist - Dysphagia Impressions/Plan Swallowing Skills: Impaired *Silent aspiration: cannot be R/O at bedside Dysphagia Treatment Plan: Chin Tuck/Down, Safe Rate, Other (no straws) Recommendations: Modified Barium Swallow (opd to educate family and upgrade diet , if possible.) - Recommendations Liquids: [place] Thick
--- NOTE | 2018-04-14 11:31 | PN ---
Progress Note, Physician History of Present Illness: Has no specific complaints. No acute events overnight. - Current Medication List Current Medications: Active Medications Acetaminophen (Tylenol -) 650 mg PO Q4H PRN PRN Reason: FEVER Albuterol/Ipratropium (Duoneb -) 1 amp NEB RQID [facility] Last Admin: 04/14/18 11:14 Dose: 1 amp Amlodipine Besylate (Norvasc -) 10 mg PO DAILY [facility] Last Admin: 04/14/18 09:36 Dose: 10 mg Atorvastatin Calcium (Lipitor -) 40 mg PO HS [facility] Last Admin: 04/13/18 21:41 Dose: 40 mg Carvedilol (Coreg -) 25 mg PO BID [facility] Last Admin: 04/14/18 09:36 Dose: 25 mg Docusate Sodium (Colace -) 100 mg PO BID PRN PRN Reason: CONSTIPATION Last Admin: 04/12/18 12:16 Dose: 100 mg Duloxetine HCl (Cymbalta -) 20 mg PO BID [facility] Last Admin: 04/14/18 09:37 Dose: 20 mg Hydralazine HCl (Apresoline -) 25 mg PO BID [facility] Last Admin: 04/14/18 09:36 Dose: 25 mg Piperacillin Sod/Tazobactam (Sod 3.375 gm/ Sodium Chloride) 50 mls @ 100 mls/ hr IVPB Q8H-IV [facility]; Protocol Last Admin: 04/14/18 09:36 Dose: 100 mls/hr Insulin Aspart (Novolog Vial Sliding Scale -) 1 vial SQ ACHS [facility]; Protocol Last Admin: 04/14/18 06:20 Dose: 2 units Insulin Detemir (Levemir Vial) 20 units SQ AM [facility] Last Admin: 04/14/18 06:20 Dose: 20 unit Mycophenolate Sodium (Mycophenolic Acid) 360 mg PO BID [facility] Last Admin: 04/14/18 09:37 Dose: 360 mg Pantoprazole Sodium (Protonix -) 40 mg PO DAILY [facility] Last Admin: 04/14/18 09:36 Dose: 40 mg Prednisone (Deltasone -) 5 mg PO DAILY [facility] Last Admin: 04/14/18 09:36 Dose: 5 mg Tacrolimus (Prograf) 1 mg PO BID [facility] Last Admin: 04/14/18 09:37 Dose: 1 mg - Objective Vital Signs: Vital Signs Temperature 98.1 F 04/14/18 09:39 Pulse Rate 80 04/14/18 09:39 Respiratory Rate 20 04/14/18 09:39 Blood Pressure 159/64 04/14/18 09:39 O2 Sat by Pulse Oximetry (%) 98 04/14/18 09:00 Constitutional: Yes: No Distress, Calm, Pallor Gastrointestinal: Yes: Normal Bowel Sounds, Soft, Vomiting. No: Tenderness, Tenderness, Epigastrium, Tenderness, Rebound Labs: CBC, BMP 04/12/18 12:15 04/12/18 12:15 INR, PTT INR 1.10 (0.82-1.09) 04/11/18 07:05 Laboratory Last Values WBC 8.8 K/mm3 (4.0-10.0) D 04/12/18 12:15 RBC 3.90 M/mm3 (4.00-5.60) L 04/12/18 12:15 Hgb 11.6 GM/dL (11.7-16.9) L 04/12/18 12:15 Hct 34.8 % (35.4-49) L 04/12/18 12:15 MCV 89.1 fl (80-96) 04/12/18 12:15 MCH 29.7 pg (25.7-33.7) 04/12/18 12:15 MCHC 33.3 g/dl (32.0-35.9) 04/12/18 12:15 RDW 16.4 % (11.9-15.9) H 04/12/18 12:15 Plt Count 148 K/MM3 (134-434) 04/12/18 12:15 MPV 8.2 fl (7.5-11.1) 04/12/18 12:15 Neutrophils % 67.7 % (42.8-82.8) 04/12/18 12:15 Lymphocytes % 19.4 % (8-40) D 04/12/18 12:15 Monocytes % 9.2 % (3.8-10.2) 04/12/18 12:15 Eosinophils % 3.2 % (0-4.5) D 04/12/18 12:15 Basophils % 0.5 % (0-2.0) 04/12/18 12:15 Nucleated RBC % 0 % (0-0) 04/12/18 12:15 PT with INR 12.40 SEC (9.7-13.0) 04/11/18 07:05 INR 1.10 (0.82-1.09) 04/11/18 07:05 PTT (Actin FS) 22.6 SECONDS (26.9-34.4) L 04/10/18 14:16 VBG pH 7.40 (7.32-7.42) D 04/10/18 14:16 POC VBG pCO2 41.3 mmHg (38-52) D 04/10/18 14:16 POC VBG pO2 60.8 mmHg (28-48) H D 04/10/18 14:16 Mixed VBG HCO3 24.8 meq/L (19-25) 04/10/18 14:16 Sodium 136 mmol/L (136-145) 04/12/18 12:15 Potassium 4.4 mmol/L (3.5-5.1) 04/12/18 12:15 Chloride 103 mmol/L (98-107) 04/12/18 12:15 Carbon Dioxide 25 mmol/L (21-32) 04/12/18 12:15 Anion Gap 8 (8-16) 04/12/18 12:15 BUN 36 mg/dL (7-18) H 04/12/18 12:15 Creatinine 1.3 mg/dL (0.7-1.3) 04/12/18 12:15 Creat Clearance w eGFR 53.67 (>60) 04/12/18 12:15 POC Glucometer 204 UNITS (80-120) 04/14/18 06:18 Random Glucose 253 mg/dL (74-106) H D 04/12/18 12:15 Hemoglobin A1c % 9.2 % (4.8-6.0) H D 04/11/18 07:52 Lactic Acid 1.6 mmol/L (0.0-2.0) 04/10/18 14:16 Calcium 8.0 mg/dL (8.5-10.1) L 04/12/18 12:15 Phosphorus 2.2 mg/dL (2.5-4.9) L D 04/10/18 14:16 Magnesium 1.8 mg/dL (1.8-2.4) 04/11/18 07:00 Total Bilirubin 0.4 mg/dL (0.2-1.0) 04/12/18 12:15 AST 9 U/L (15-37) L 04/12/18 12:15 ALT 14 U/L (12-78) 04/12/18 12:15 Alkaline Phosphatase 68 U/L (45-117) 04/12/18 12:15 Troponin I 0.02 ng/ml (0.00-0.05) 04/11/18 07:17 Total Protein 5.7 g/dl (6.4-8.2) L 04/12/18 12:15 Albumin 2.8 g/dl (3.4-5.0) L 04/12/18 12:15 Triglycerides 93 mg/dL (35-160) D 04/11/18 07:55 Cholesterol 116 mg/dL (50-200) D 04/11/18 07:55 Total LDL Cholesterol 55 mg/dL (5-100) D 04/11/18 07:55 HDL Cholesterol 52 mg/dL (40-60) 04/11/18 07:55 Urine Color Ltyellow 04/11/18 00:07 Urine Appearance Clear 04/11/18 00:07 Urine pH 5.0 (5.0-8.0) 04/11/18 00:07 Ur Specific [place] 1.014 (1.001-1.035) 04/11/18 00:07 Urine Protein Negative (NEGATIVE) 04/11/18 00:07 Urine Glucose (UA) Negative (NEGATIVE) 04/11/18 00:07 Urine Ketones Negative (NEGATIVE) 04/11/18 00:07 Urine Blood Negative (NEGATIVE) 04/11/18 00:07 Urine Nitrite Negative (NEGATIVE) 04/11/18 00:07 Urine Bilirubin Negative (<2.0 mg/dL) 04/11/18 00:07 Urine Urobilinogen Negative mg/dL (0.2-1.0) 04/11/18 00:07 Ur Leukocyte Esterase Negative (NEGATIVE) 04/11/18 00:07 Tacrolimus 5.2 ng/mL (2.0-20.0) 04/10/18 14:00 Problem List - Problems (1) Immunocompromised patient Code(s): D84.9 - IMMUNODEFICIENCY, UNSPECIFIED (2) Nausea & vomiting Code(s): R11.2 - NAUSEA WITH VOMITING, UNSPECIFIED Assessment/Plan Continue current management. Will follow peripherally.
--- NOTE | 2018-04-14 12:01 | DS ---
Physical Examination Vital Signs: Vital Signs Temperature 98.1 F 04/14/18 09:39 Pulse Rate 80 04/14/18 09:39 Respiratory Rate 20 04/14/18 09:39 Blood Pressure 159/64 04/14/18 09:39 O2 Sat by Pulse Oximetry (%) 98 04/14/18 09:00 Constitutional: Yes: Well Nourished, No Distress, Calm Cardiovascular: Yes: Regular Rate and Rhythm Respiratory: Yes: Regular Gastrointestinal: Yes: Normal Bowel Sounds, Soft Musculoskeletal: Yes: WNL Extremities: Yes: WNL Edema: No Peripheral Pulses WNL: Yes Neurological: Yes: Alert, Oriented Psychiatric: Yes: Alert, Oriented Labs: CBC, BMP 04/12/18 12:15 04/12/18 12:15 Discharge Summary Reason For Visit: HEMOPTYSIS/PNEUMONIA Current Active Problems Acute type 2 diabetes mellitus with manifestations (Acute) Hemoptysis (Acute) Immunocompromised patient (Acute) Nausea & vomiting (Acute) PNA (pneumonia) (Acute) Vomiting (Acute) Hospital Course: Patient is a 78 year old male with a significant past medical history of hypertension, diabetes mellitus, ME s/p stents, CABG, hyperlipidemia, IVC filter , DVT hx (left leg) and kidney transplant (2008) on immunosuppressive therapy. He presents to the ED today with c/o of subjective fevers, nausea and vomiting for about the past 3 days. Patient reports decreased appetite and poor PO intake. He denies any abdominal pain, diarrhea or constipation. States he is compliant with his home medications and has not missed any doses. He denies any chest pain, palpitations, headache or dizziness. Denies any CVAT tenderness. Patient denies dysuria, frequency, urgency or hematuria. Findings are concerning for possible rejection of his transplant kidney. Differential also includes sepsis, gastroenteritis and pneumonia. In the ED sepsis protocol was initiated, cultures pending. He was started on empiric broad spectrum antibiotics. A renal consult has been placed, he will be transferred to the ICU. ED reports patient had episodes of hemoptysis, will hold off on any anticoagulation or blood thinners. Upon evaluation: CT abd/pelvis/chest showed: 1. Upper lobe predominant interlobular septal thickening with surrounding groundglass is most likely attributed to interstitial pulmonary edema. Trace layering bilateral pleural effusions. 2. Left upper lobe consolidative opacity is compatible with pneumonia in the appropriate clinical setting. Asymmetric alveolar edema is felt to be less likely, but not entirely excluded. 3. Lower lobe predominant bronchial wall thickening with impacted distal airways. 4. Bilateral lower lobe pleural-based solid opacities (left more than right) with parenchymal calcification and pleural thickening, similar to 03/17/2018. These findings may be attributed to rounded atelectasis, although underlying neoplasia cannot be entirely excluded. Please correlate for history of aspiration and continued follow-up is recommended. 5. Multichamber cardiomegaly. Aortic and mitral valve calcifications. Please correlate for valvular stenosis. 6. No evidence of bowel obstruction. No definite bowel wall thickening to suggest enterocolitis. 7. Unchanged size of an approximately 2 cm indeterminant left adrenal gland nodule, likely an adenoma. 8. Mildly prominent urinary bladder wall may be secondary to underdistention. Please correlate with urinalysis for cystitis. 9. Transplant right pelvic kidney. No hydronephrosis. He was evaluated again by speech therapy who recommended THICKENED LIQUIDS. Pt also needs Speech therapy outpatient and repeat Modified Barium swallow after few weeks of speech therapy. Condition: Stable - Instructions Diet, Activity, Other Instructions: Renal diet with thickened liquids Speech therapy Referrals: Gt Villela MD [Primary Care Provider] - Disposition: [facility]NS/HOME HEALTH CARE - Home Medications Comprehensive Discharge Medication List: Ambulatory Orders Amlodipine Besylate [Norvasc -] 10 mg PO DAILY 05/17/17 Aspirin [Jena Chewable Aspirin] 81 mg PO HS 05/17/17 Carvedilol [Coreg -] 25 mg PO BID 05/17/17 Duloxetine HCl [Cymbalta] 20 mg PO BID 05/17/17 Tamsulosin HCl [Flomax] 0.4 mg PO HS 05/17/17 predniSONE [Deltasone -] 5 mg PO DAILY 05/17/17 Acetaminophen [Tylenol .Regular Strength -] 650 mg PO Q4H PRN tablet 11/29/17 Tacrolimus 1 mg PO BID 11/29/17 Docusate Sodium [Colace -] 100 mg PO BID PRN capsule 01/23/18 Mycophenolate Sodium [Mycophenolic Acid] 360 mg PO BID tablet. 01/23/18 hydrALAZINE HCL [Apresoline -] 25 mg PO BID tablet 01/23/18 Albuterol 2.5/Ipratropium 0.5 [Duoneb -] 1 amp NEB QID 02/08/18 Atorvastatin Ca [Lipitor] 40 mg PO HS #30 tablet 03/23/18 Insulin Sliding Scale [Novolog Vial Sliding Scale -] 1 vial SQ ACHS #1 units 02/05 Insulin Detemir [Levemir Flextouch] 20 unit SQ AM #1 insuln.pen 04/14/18 Levofloxacin [Levaquin] 500 mg PO DAILY #7 tablet 04/14/18 Pen Needle, Diabetic [Bd Ultra-Fine Pen Needle] 1 each MC DAILY #30 dis.needle 04/14/18
[2018-04-14 14:38] VITALS: BP 123/55; PULSE 72; TEMP 97.9
--- NOTE | 2018-04-14 16:05 | PN ---
Progress Note, Physician History of Present Illness: Pt seen and examined at bedside. He is awake and alert. He denies shortness of breath. - Current Medication List Current Medications: Active Medications Acetaminophen (Tylenol -) 650 mg PO Q4H PRN PRN Reason: FEVER Albuterol/Ipratropium (Duoneb -) 1 amp NEB RQID [facility] Last Admin: 04/14/18 15:28 Dose: 1 amp Amlodipine Besylate (Norvasc -) 10 mg PO DAILY [facility] Last Admin: 04/14/18 09:36 Dose: 10 mg Atorvastatin Calcium (Lipitor -) 40 mg PO HS [facility] Last Admin: 04/13/18 21:41 Dose: 40 mg Carvedilol (Coreg -) 25 mg PO BID [facility] Last Admin: 04/14/18 09:36 Dose: 25 mg Docusate Sodium (Colace -) 100 mg PO BID PRN PRN Reason: CONSTIPATION Last Admin: 04/12/18 12:16 Dose: 100 mg Duloxetine HCl (Cymbalta -) 20 mg PO BID [facility] Last Admin: 04/14/18 09:37 Dose: 20 mg Hydralazine HCl (Apresoline -) 25 mg PO BID [facility] Last Admin: 04/14/18 09:36 Dose: 25 mg Piperacillin Sod/Tazobactam (Sod 3.375 gm/ Sodium Chloride) 50 mls @ 100 mls/ hr IVPB Q8H-IV [facility]; Protocol Last Admin: 04/14/18 09:36 Dose: 100 mls/hr Insulin Aspart (Novolog Vial Sliding Scale -) 1 vial SQ ACHS [facility]; Protocol Last Admin: 04/14/18 12:04 Dose: 2 units Insulin Detemir (Levemir Vial) 20 units SQ AM [facility] Last Admin: 04/14/18 06:20 Dose: 20 unit Mycophenolate Sodium (Mycophenolic Acid) 360 mg PO BID [facility] Last Admin: 04/14/18 09:37 Dose: 360 mg Pantoprazole Sodium (Protonix -) 40 mg PO DAILY [facility] Last Admin: 04/14/18 09:36 Dose: 40 mg Prednisone (Deltasone -) 5 mg PO DAILY [facility] Last Admin: 04/14/18 09:36 Dose: 5 mg Tacrolimus (Prograf) 1 mg PO BID [facility] Last Admin: 04/14/18 09:37 Dose: 1 mg - Objective Vital Signs: Vital Signs Temperature 97.9 F 04/14/18 14:36 Pulse Rate 72 04/14/18 14:36 Respiratory Rate 20 04/14/18 14:36 Blood Pressure 123/55 04/14/18 14:36 O2 Sat by Pulse Oximetry (%) 98 04/14/18 09:00 Constitutional: Yes: Calm Eyes: Yes: Conjunctiva Clear HENT: Yes: Atraumatic Neck: Yes: Supple Cardiovascular: Yes: S1, S2 Respiratory: Yes: CTA Bilaterally Gastrointestinal: Yes: Normal Bowel Sounds, Soft Genitourinary: Yes: WNL, Other (graft soft and non tender) Musculoskeletal: Yes: WNL Edema: No Neurological: Yes: Oriented Psychiatric: Yes: Oriented Labs: CBC, BMP 04/12/18 12:15 04/12/18 12:15 INR, PTT INR 1.10 (0.82-1.09) 04/11/18 07:05 Problem List - Problems (1) Hemoptysis Code(s): R04.2 - HEMOPTYSIS (2) PNA (pneumonia) Code(s): J18.9 - PNEUMONIA, UNSPECIFIED ORGANISM Qualifiers: Pneumonia type: due to unspecified organism Laterality: unspecified laterality Lung location: unspecified part of lung Qualified Code(s): J18.9 - Pneumonia, unspecified organism (3) Vomiting Code(s): R11.10 - VOMITING, UNSPECIFIED Assessment/Plan Current Medications Generic Name Dose Route Start Last Admin Trade Name Freq PRN Reason Stop Dose Admin Acetaminophen 650 mg 04/10/18 18:20 Tylenol - PO Q4H PRN FEVER Albuterol/Ipratropium 1 amp 04/10/18 20:00 04/14/18 15:28 Duoneb - NEB 1 amp RQID [facility] Administration Amlodipine Besylate 10 mg 04/11/18 10:00 04/14/18 09:36 Norvasc - PO 10 mg DAILY [facility] Administration Atorvastatin Calcium 40 mg 04/10/18 22:00 04/13/18 21:41 Lipitor - PO 40 mg HS [facility] Administration Carvedilol 25 mg 04/10/18 22:00 04/14/18 09:36 Coreg - PO 25 mg BID [facility] Administration Docusate Sodium 100 mg 04/10/18 18:20 04/12/18 12:16 Colace - PO 100 mg BID PRN Administration CONSTIPATION Duloxetine HCl 20 mg 04/10/18 22:00 04/14/18 09:37 Cymbalta - PO 20 mg BID [facility] Administration Hydralazine HCl 25 mg 04/10/18 22:00 04/14/18 09:36 Apresoline - PO 25 mg BID [facility] Administration Piperacillin Sod/Tazobactam 50 mls @ 100 mls/hr 04/13/18 02:00 04/14/18 09:36 Sod 3.375 gm/ Sodium Chloride IVPB 100 mls/hr Q8H-IV [facility] Administration Protocol Insulin Aspart 1 vial 04/12/18 12:13 04/14/18 12:04 Novolog Vial Sliding Scale - SQ 2 units ACHS [facility] Administration Protocol Insulin Detemir 20 units 04/13/18 21:57 04/14/18 06:20 Levemir Vial SQ 20 unit AM [facility] Administration Mycophenolate Sodium 360 mg 04/10/18 22:00 04/14/18 09:37 Mycophenolic Acid PO 360 mg BID [facility] Administration Pantoprazole Sodium 40 mg 04/13/18 10:00 04/14/18 09:36 Protonix - PO 40 mg DAILY [facility] Administration Prednisone 5 mg 04/11/18 10:00 04/14/18 09:36 Deltasone - PO 5 mg DAILY [facility] Administration Tacrolimus 1 mg 04/10/18 22:00 04/14/18 09:37 Prograf PO 1 mg BID [facility] Administration Impression 1. CKD 2. kidney transplant 3. DM 4. hx of syncope 5. HTN 6. hyperlipidemia 7. CHF 8. fever 9. hemoptysis Plan - check bmp - cont transplant meds - can see in office if discharged - will follow Dr Perez
== END 2018-04-14 18:45 | disposition home health service (06) | DRG 871 ==
LOC: JER 12:29 → JERBED 17:09 → J7W 04-12 07:51
PROVIDERS: ADMIT Internal Medicine; ATTEND Family Medicine
DX: A41.9 Sepsis, unspecified organism (principal); J18.9 Pneumonia, unspecified organism; R04.2 Hemoptysis; Z94.0 Kidney transplant status; I45.2 Bifascicular block; J90 Pleural effusion, not elsewhere classified; R11.10 Vomiting, unspecified; E11.22 Type 2 diabetes mellitus with diabetic chronic kidney disease; N18.9 Chronic kidney disease, unspecified; E78.5 Hyperlipidemia, unspecified; I25.10 Atherosclerotic heart disease of native coronary artery without angina pectoris; Z98.61 Coronary angioplasty status; Z95.1 Presence of aortocoronary bypass graft; D64.9 Anemia, unspecified; E11.21 Type 2 diabetes mellitus with diabetic nephropathy; R09.02 Hypoxemia; I12.9 Hypertensive chronic kidney disease with stage 1 through stage 4 chronic kidney disease, or unspecified chronic kidney disease
CPT/HCPCS: 36415; 71045-TC-FY; 71250-TC; 74176-TC; 80053; 80061; 80197; 81003; 82803; 82962; 83036; 83605; 83721; 83735; 84100; 84484; 85025; 85610; 85730; 87040; 87081; 87086; 87899; 93005; 93010; 93306-TC; 94640; 97116-GP; 97161-GP; 99285-25; J0131; J7030; J7620

== ENCOUNTER 2018-04-22 09:38 | Emergency (ER) | payer OTHER ==
[2018-04-22 09:59] VITALS: BMI 25.0
--- NOTE | 2018-04-22 10:03 | PDOC ---
History of Present Illness - General Chief Complaint: Injury Stated Complaint: FALL Time Seen by Provider: 04/22/18 09:57 - History of Present Illness Initial Comments: 78 year old male with PMH of HTN, DM, MA s/p stents, CABG, HLD, IVC filter, DVT hx (left leg) and kidney transplant (2008) on immunosuppressive therapy presenting after an episode of leg weakness while walking down the street without his walker. States he was walking down the street to get in his daily exercise but decided to go without his walker because he "forgot". He felt weakness in his right leg and says he sat down on the sidewalk at which point a human resource officer called EMS after speaking to him. After further interview, he states he has also had diarrhea for three days in a row. Denies fevers, chills, nausea, vomiting, recent travel, sick contacts, or other symptoms. In the ED he was very well appearing, cooperative, and AOx3. 04/22/18 10:39 Past History - Past Medical History Allergies/Adverse Reactions: Allergies Allergy/AdvReac Type Severity Reaction Status Date / Time No Known Drug Allergies Allergy Verified 04/22/18 10:00 Home Medications: Ambulatory Orders Amlodipine Besylate [Norvasc -] 10 mg PO DAILY 05/17/17 Aspirin [Jena Chewable Aspirin] 81 mg PO HS 05/17/17 Carvedilol [Coreg -] 25 mg PO BID 05/17/17 Duloxetine HCl [Cymbalta] 20 mg PO BID 05/17/17 Tamsulosin HCl [Flomax] 0.4 mg PO HS 05/17/17 predniSONE [Deltasone -] 5 mg PO DAILY 05/17/17 Acetaminophen [Tylenol .Regular Strength -] 650 mg PO Q4H PRN tablet 11/29/17 Tacrolimus 1 mg PO BID 11/29/17 Docusate Sodium [Colace -] 100 mg PO BID PRN capsule 01/23/18 Mycophenolate Sodium [Mycophenolic Acid] 360 mg PO BID tablet. 01/23/18 hydrALAZINE HCL [Apresoline -] 25 mg PO BID tablet 01/23/18 Albuterol 2.5/Ipratropium 0.5 [Duoneb -] 1 amp NEB QID 02/08/18 Atorvastatin Ca [Lipitor] 40 mg PO HS #30 tablet 03/23/18 Insulin Sliding Scale [Novolog Vial Sliding Scale -] 1 vial SQ ACHS #1 units 02/05 Insulin Detemir [Levemir Flextouch] 20 unit SQ AM #1 insuln.pen 04/14/18 Levofloxacin [Levaquin] 500 mg PO DAILY #7 tablet 04/14/18 Pen Needle, Diabetic [Bd Ultra-Fine Pen Needle] 1 each MC DAILY #30 dis.needle 04/14/18 Anemia: No Asthma: No Cancer: No Cardiac Disorders: Yes (cardiac arrest, CABG) CVA: No COPD: No CHF: Yes Dementia: No Diabetes: Yes (iddm) Dialysis: Yes (stopped 2008) GI Disorders: No Disorders: No HTN: Yes Hypercholesterolemia: Yes Liver Disease: No Seizures: No Thyroid Disease: No - Surgical History Abdominal Surgery: No Appendectomy: No Cardiac Surgery: Yes (open heart surgery) Cholecystectomy: No Lung Surgery: No Neurologic Surgery: No Orthopedic Surgery: No - Immunization History Immunization Up to Date: Yes - Suicide/Smoking/Psychosocial Hx Smoking Status: No Smoking History: Never smoked Have you smoked in the past 12 months: No Number of Cigarettes Smoked Daily: 0 Information on smoking cessation initiated: No Hx Alcohol Use: No Drug/Substance Use Hx: No Substance Use Type: None Hx Substance Use Treatment: No Review of Systems - Review of Systems Constitutional: No: Chills, Diaphoresis, Fever HEENTM: No: Eye Pain, Blurred Vision, Tearing Respiratory: No: Cough, Orthopnea, Shortness of Breath Cardiac (ROS): No: Chest Pain, Edema, Irregular Heart Rate ABD/GI: Yes: Diarrhea. No: Nausea, Vomiting : No: Burning, Dysuria, Discharge Musculoskeletal: Yes: Muscle Weakness. No: Back Pain, Gout, Joint Pain, Muscle Pain, Joint Stiffness Integumentary: No: Bruising, Lesions, Lumps Neurological: Yes: Headache, Weakness, Ataxia (baseline ataxia). No: Numbness, Paresthesia Psychiatric: No: Anxiety, Depression *Physical Exam - Vital Signs Last Vital Signs Temp Pulse Resp BP Pulse Ox 97.8 F 83 18 119/54 100 04/22/18 09:40 04/22/18 09:40 04/22/18 09:40 04/22/18 09:40 04/22/18 09:40 - Physical Exam General Appearance: Yes: Nourished, Appropriately Dressed. No: Apparent Distress HEENT: positive: EOMI, SEEMA, Normal ENT Inspection, Normal Voice, Other ( slightly dysconjugate gaze) Neck: positive: Trachea midline, Normal Thyroid, Supple. negative: Tender, Rigid Respiratory/Chest: positive: Lungs Clear, Normal Breath Sounds. negative: Chest Tender, Respiratory Distress, Accessory Muscle Use Cardiovascular: positive: Regular Rhythm, Regular Rate Gastrointestinal/Abdominal: positive: Normal Bowel Sounds, Flat, Soft. negative : Tender Lymphatic: negative: Adenopathy, Tenderness Musculoskeletal: negative: Normal Inspection (ataxic ), Decreased Range of Motion, Vertebral Tenderness Extremity: positive: Normal Capillary Refill, Normal Inspection, Normal Range of Motion. negative: Tender Integumentary: positive: Normal Color, Dry, Warm Neurologic: positive: Fully Oriented, Alert, Normal Mood/Affect, Normal Response , Other (Can walk without assitance but has an ataxic gait. ). negative: Motor Strength 5/5 (4/5 in bl LEs), Facial Droop, Numbness ED Treatment Course - LABORATORY CBC & Chemistry Diagram: 04/22/18 11:20 04/22/18 11:20 Medical Decision Making - Medical Decision Making 78 year old male with multiple comorbidities presenting with weakness after an unsupervised walk without his walker and prior to taking his insulin. His labs are roughly WNL without GAP or acidemia but demonstrating dehydration witjh hyperglycemia. Patient given 500 NS and 20 units insulin. This is likely 2/2 to dehydration. VSS. Patient was able to walk unassisted with slight gait deviated to the left that he says his per his baseline and the main reason he uses a walker. This Spoke to his daughter who is OK with taking the patient back home and will arrive in 30-45 minutes. Will DC with instructions to use walker and ensure he takes his medication. 04/22/18 12:28 *DC/Admit/Observation/Transfer Diagnosis at time of Disposition: Hyperglycemia, Weakness - Discharge Dispostion Disposition: HOME Condition at time of disposition: Improved Decision to Admit order: No - Referrals Referrals: Gt Villela MD [Primary Care Provider] - - Patient Instructions Printed Discharge Instructions: How to Prevent Falls Additional Instructions: Please take your insulin daily!! Please use your walker at ALL times!!!!! Please follow up with your PCP next week. Please return to the ED if you have new or worsening symptoms. - Post Discharge Activity
--- NOTE | 2018-04-22 10:06 | PDOC ---
Attending Attestation - Resident Resident Name: TimGena - ED Attending Attestation I have performed the following: I have examined & evaluated the patient, The case was reviewed & discussed with the resident, I agree w/resident's findings & plan, Exceptions are as noted - HPI HPI: 78 yo M HL, DM, CAD presents with weakness. He states he has had diarrhea recently. Today he was ambulating outside, suddenly felt weak and sat down. He was picked up by police, who called EMS. Patient did not have his walker with him. His daughter called the ED for an update, stating that he is not supposed to be out by himself and should not walk without a walker. - Physicial Exam PE: GENERAL: Awake, alert, and fully oriented, in no acute distress HEAD: No signs of trauma EYES: PERRLA, EOMI, sclera anicteric, conjunctiva clear ENT: Auricles normal inspection, hearing grossly normal, nares patent, oropharynx clear without exudates. Moist mucosa NECK: Normal ROM, supple, no lymphadenopathy, JVD, or masses LUNGS: Breath sounds equal, clear to auscultation bilaterally. No wheezes, and no crackles HEART: Regular rate and rhythm, normal S1 and S2, no murmurs, rubs or gallops ABDOMEN: Soft, nontender, normoactive bowel sounds. No guarding, no rebound. No masses EXTREMITIES: Normal range of motion, no edema. No clubbing or cyanosis. No cords, erythema, or tenderness NEUROLOGICAL: Cranial nerves II through XII grossly intact. Normal speech. Motor and sensation grossly intact. Patient drifts to the left as he ambulates ( usually uses a walker). SKIN: Warm, Dry, normal turgor, no rashes or lesions noted. - Medical Decision Making 04/22/18 10:50 Pt with weakness this morning, recent diarrhea. Denies any other symptoms. No signs of recent trauma on exam. Will obtain labs including cardiacs, UA, and EKG. D/w daughter, Gee, via phone. She will come to take him home if results are normal.
[2018-04-22] MEDS ORDERED: SODIUM CHLORIDE 0.9% 500 ML INFUS.BAG IV ONE (10:33)
[2018-04-22 11:38] LABS: BASO % 0.5 % (0-2.0); EOS % 0.1 % (0-4.5); HEMATOCRIT 38.7 % (35.4-49); HEMOGLOBIN 12.5 GM/dL (11.7-16.9); LYMPH % 6.7 % (8-40); MCH 28.5 pg (25.7-33.7); MCHC 32.3 g/dl (32.0-35.9); MEAN CELL VOLUME 88.3 fl (80-96); MONO % 2.7 % (3.8-10.2); PLATELET COUNT 242 K/MM3 (134-434); RBC 4.38 M/mm3 (4.00-5.60); RDW 16.1 % (11.9-15.9); WHITE BLOOD COUNT 12.2 K/mm3 (4.0-10.0)
[2018-04-22 11:53] LABS: URINE APPEARANCE CLEAR; URINE BILIRUBIN NEGATIVE (<2.0 mg/dL); URINE BLOOD NEGATIVE (NEGATIVE); URINE COLOR LTYELLOW; URINE GLUCOSE (UA) 3+ (NEGATIVE); URINE KETONE NEGATIVE (NEGATIVE); URINE LEUK ESTERASE NEGATIVE (NEGATIVE); URINE NITRITE NEGATIVE (NEGATIVE); URINE PROTEIN NEGATIVE (NEGATIVE); URINE UROBILINOGEN NEGATIVE mg/dL (0.2-1.0)
[2018-04-22 12:02] LABS: ALBUMIN 3.3 g/dl (3.4-5.0); ANION GAP 11 (8-16); BILIRUBIN,TOTAL 0.2 mg/dL (0.2-1.0); BLOOD UREA NITROGEN 45 mg/dL (7-18); CALCIUM 8.6 mg/dL (8.5-10.1); CHLORIDE 102 mmol/L (98-107); CO2 22 mmol/L (21-32); CREATININE 1.9 mg/dL (0.7-1.3); POTASSIUM 4.6 mmol/L (3.5-5.1); SGOT/AST 7 U/L (15-37); SGPT/ALT 16 U/L (12-78); SODIUM 135 mmol/L (136-145); TOT PROT 6.2 g/dl (6.4-8.2)
[2018-04-22 12:05] LABS: ALK PHOS 105 U/L (45-117)
[2018-04-22 12:12] LABS: GLUCOSE,RANDOM 353 mg/dL (74-106)
[2018-04-22] MEDS ORDERED: INSULIN (LEVEMIR) 100 UNITS/ML UNITS SQ ONE ×2 (12:20→12:29)
[2018-04-22 13:57] VITALS: BP 130/75; PULSE 77; TEMP 98.2
--- NOTE | 2018-04-23 22:17 | EKG ---
Test Reason : Blood Pressure : / mmHG Vent. Rate : 079 BPM Atrial Rate : 079 BPM P-R Int : 160 ms QRS Dur : 168 ms QT Int : 404 ms P-R-T Axes : 018 -52 059 degrees QTc Int : 463 ms NORMAL SINUS RHYTHM RIGHT BUNDLE BRANCH BLOCK LEFT ANTERIOR FASCICULAR BLOCK BIFASCICULAR BLOCK VOLTAGE CRITERIA FOR LEFT VENTRICULAR HYPERTROPHY ABNORMAL ECG WHEN COMPARED WITH ECG OF 10-APR-2018 13:27, QRS DURATION HAS INCREASED Confirmed by CARINA MCDONALD MD ([id number]) on 04/23/2018 10:17:13 PM Referred By: Confirmed By:CARINA MCDONALD MD
== END 2018-04-22 13:57 | disposition home or self-care (01) ==
LOC: JER 09:38
PROC: 3E013VG Introduction of Insulin into Subcutaneous Tissue, Percutaneous Approach (ICD-10-PCS; principal; 2018-04-22)
DX: E11.65 Type 2 diabetes mellitus with hyperglycemia (principal); E86.0 Dehydration; Z79.4 Long term (current) use of insulin; I25.10 Atherosclerotic heart disease of native coronary artery without angina pectoris; I11.0 Hypertensive heart disease with heart failure; Z95.1 Presence of aortocoronary bypass graft; Z95.5 Presence of coronary angioplasty implant and graft; Z87.898 Personal history of other specified conditions; Z86.718 Personal history of other venous thrombosis and embolism; Z86.74 Personal history of sudden cardiac arrest; Z94.0 Kidney transplant status; Z95.828 Presence of other vascular implants and grafts
CPT/HCPCS: 36415; 80053; 81003; 82550; 84484; 85025; 93005; 93010; 96372; 99284-25

== ENCOUNTER 2018-05-20 18:23 | Inpatient (IN) | payer OTHER ==
[2018-05-20] MEDS ORDERED: VANCOMYCIN 1,000 MG in DEXTROSE 5%-WATER - 250 ML IVPB ONE (18:39)
[2018-05-20] MEDS ORDERED: PIPERACILLIN/TAZOB 3.375 GM 3.375 GM in DEXTROSE 5%-WATER - 50 ML IVPB ONE (18:39)
[2018-05-20] MEDS ORDERED: SODIUM CHLORIDE 2,000 ML IV ONE (18:40)
[2018-05-20] MEDS ORDERED: PIPERACILLIN/TAZOB 3.375 GM 3.375 GM/50 ML BAG IVPB ONE (18:44)
[2018-05-20] MEDS ORDERED: LORazepam 2 MG/ML SDV VIAL ONE (18:44)
[2018-05-20] MEDS ORDERED: RAPID SEQUENCE INTUBATION KIT NR ONE (18:44)
[2018-05-20] MEDS: DOPAMINE 400 MG/D5W - 400,000 MCG/250 ML INFUS.BAG IVPB SCH (18:45)
[2018-05-20 18:48] LABS: BASO % 0.5 % (0-2.0); EOS % 0.9 % (0-4.5); HEMATOCRIT 35.6 % (35.4-49); HEMOGLOBIN 11.3 GM/dL (11.7-16.9); LYMPH % 20.7 % (8-40); MCH 28.6 pg (25.7-33.7); MCHC 31.7 g/dl (32.0-35.9); MEAN CELL VOLUME 90.1 fl (80-96); MEAN PLT VOLUME 7.5 fl (7.5-11.1); MONO % 7.4 % (3.8-10.2); NEUT % 70.5 % (42.8-82.8); PLATELET COUNT 244 K/MM3 (134-434); RBC 3.95 M/mm3 (4.00-5.60); RDW 16.4 % (11.9-15.9); WHITE BLOOD COUNT 9.4 K/mm3 (4.0-10.0)
[2018-05-20] MEDS ORDERED: NOREPINEPHRINE BITARTRATE 4 MG/4 ML ML IV ONE (18:59)
[2018-05-20] MEDS ORDERED: VANCOMYCIN 1 GRAM (PRE-DOCKED) 1,000 MG/250 ML BAG IVPB ONE (19:01)
[2018-05-20 19:02] LABS: INR 1.17 (0.82-1.09); PROTHROMBIN TIME (PATIENT) 13.2 SEC (9.7-13.0)
[2018-05-20 19:10] LABS: ALBUMIN 2.6 g/dl (3.4-5.0); ANION GAP 7 (8-16); BILIRUBIN,TOTAL 0.4 mg/dL (0.2-1.0); BLOOD UREA NITROGEN 22 mg/dL (7-18); CALCIUM 8.1 mg/dL (8.5-10.1); CHLORIDE 107 mmol/L (98-107); CO2 28 mmol/L (21-32); CREATININE 1.2 mg/dL (0.7-1.3); GLUCOSE,RANDOM 77 mg/dL (74-106); SGPT/ALT 22 U/L (12-78); SODIUM 142 mmol/L (136-145); TOT PROT 4.9 g/dl (6.4-8.2)
[2018-05-20] MEDS: NOREPINEPHRINE BITARTRATE 8,000 MCG in SODIUM CHLORIDE 0.45% 992 ML IV SCH (19:10)
[2018-05-20 19:13] LABS: ALK PHOS 74 U/L (45-117)
[2018-05-20 19:16] LABS: POTASSIUM 4.5 mmol/L (3.5-5.1); SGOT/AST 21 U/L (15-37)
[2018-05-20] MEDS ORDERED: HEMOQUE TEST 1 EACH EACH ONE (19:27)
--- NOTE | 2018-05-20 19:40 | PDOC ---
History of Present Illness - General History Source: Patient Exam Limitations: No Limitations - History of Present Illness Initial Comments: 05/20/18 19:47 This is a 78 y/o man PMH of IDDM, HTN, PAD, CAD s/p [place], s/p CABG, CHF, s/p Renal Transplant (on immunosuppressants), Dialysis (stopped 2008, non working RUE) brought in by EMS unresponsive. The patient was admitted to the hospital 5 days ago for c-diff, AMS, and LLE DVT. Patient was discharged home today. The patient was at home today with family with no reported complaints. He was found unresponsive and family activated EMS. Per EMS, the patient was found with blood glucose in the low 20s. He was given D50 with no apparent improvement. In the field, patient was intubated with a 7.0 tube (20 Etom, 30 Rocc). Patient is unable to provide remainder of history secondary to clinical condition. <Ligia Canchola - Last Filed: 05/20/18 19:48> <Jessy Hong - Last Filed: 05/20/18 19:52> <Chema Enamorado - Last Filed: 05/21/18 07:24> - General Chief Complaint: Respiratory Arrest Stated Complaint: DIABETIC/PASSED OUT Time Seen by Provider: 05/20/18 18:41 Past History <Ligia Canchola - Last Filed: 05/20/18 19:48> <Jessy Hong - Last Filed: 05/20/18 19:52> - Past Medical History Anemia: No Asthma: No Cancer: No Cardiac Disorders: Yes (cardiac arrest, CABG) CVA: No COPD: Yes CHF: Yes Dementia: No Diabetes: Yes (IDDM) Dialysis: Yes (stopped 2008) GI Disorders: No Disorders: No HTN: Yes Hypercholesterolemia: Yes Liver Disease: No Seizures: No Thyroid Disease: No - Surgical History Abdominal Surgery: No Appendectomy: No Cardiac Surgery: Yes (open heart surgery) Cholecystectomy: No Lung Surgery: No Neurologic Surgery: No Orthopedic Surgery: No - Immunization History Immunization Up to Date: Yes - Suicide/Smoking/Psychosocial Hx Smoking Status: No Smoking History: Never smoked Have you smoked in the past 12 months: No Number of Cigarettes Smoked Daily: 0 'Breaking Loose' booklet given: 04/22/18 Hx Alcohol Use: No Drug/Substance Use Hx: No Substance Use Type: None Hx Substance Use Treatment: No <Chema Enamorado - Last Filed: 05/21/18 07:24> - Past Medical History Allergies/Adverse Reactions: Allergies Allergy/AdvReac Type Severity Reaction Status Date / Time No Known Drug Allergies Allergy Verified 05/20/18 18:32 Home Medications: Ambulatory Orders Acetaminophen [Tylenol .Regular Strength -] 650 mg PO Q4H PRN tablet 11/29/17 Albuterol 2.5/Ipratropium 0.5 [Duoneb -] 1 amp NEB QID 02/08/18 Amlodipine Besylate [Norvasc -] 10 mg PO DAILY #30 tablet 05/19/18 Apixaban [Eliquis] 5 mg PO BID #60 tablet 05/19/18 Aspirin [Jena Chewable Aspirin] 81 mg PO HS #30 tab.chew 05/19/18 Atorvastatin Ca [Lipitor] 80 mg PO HS #60 tablet 05/19/18 Carvedilol [Coreg -] 25 mg PO BID #60 tablet 05/19/18 Duloxetine HCl [Cymbalta] 20 mg PO BID #60 capsule. 05/19/18 Insulin Aspart [Novolog Flexpen] 100 unit SQ AC #1 insuln.pen 05/19/18 Insulin Detemir [Levemir Flextouch] 18 unit SQ AM #1 insuln.pen 05/19/18 Magnesium Oxide [Mag-Ox -] 400 mg PO BID tablet 05/19/18 Mycophenolate Sodium [Mycophenolic Acid] 360 mg PO BID #60 tablet. 05/19/18 Pen Needle, Diabetic [Pen Needle] 1 each ACHS #100 dis.needle 05/19/18 Tacrolimus 1 mg PO BID #60 capsule 05/19/18 Tamsulosin HCl [Flomax] 0.4 mg PO HS #30 cap.er.24h 05/19/18 hydrALAZINE HCL [Apresoline -] 25 mg PO BID #60 tablet 05/19/18 predniSONE [Deltasone -] 5 mg PO DAILY #30 tablet 05/19/18 Review of Systems - Review of Systems Able to Perform ROS?: Yes Comments:: 05/20/18 19:47 Unable to provide ROS secondary to clinical condition. <Ligia Canchola - Last Filed: 05/20/18 19:48> *Physical Exam - Vital Signs Last Vital Signs Temp Pulse Resp BP Pulse Ox 99 H 14 98 05/20/18 19:37 05/20/18 18:35 05/20/18 19:37 05/20/18 18:35 - Physical Exam Comments: 05/20/18 19:47 General Physical Exam: Unresponsive, Intubated, SEEMA MMM, OP WNL NCAT RRR, nl s1/s2, no m/r/g CTABL, no w/r/r Soft, NT No edema, WWP, no rash neuro unable to assess psych unable to assess <Ligia Canchola - Last Filed: 05/20/18 19:48> - Vital Signs Last Vital Signs Temp Pulse Resp BP Pulse Ox 99 H 14 98 05/20/18 19:37 05/20/18 18:35 05/20/18 19:37 05/20/18 18:35 <Jessy Hong - Last Filed: 05/20/18 19:52> - Vital Signs Last Vital Signs Temp Pulse Resp BP Pulse Ox 99 H 98 05/20/18 19:37 05/20/18 18:35 05/20/18 19:37 05/20/18 18:35 <Chema Enamorado - Last Filed: 05/21/18 07:24> Procedures - Central Line Central Line Lumen: triple Central Line Position: femoral (R) Complications: none Post Central Line Insertion: sutured, good blood return <Chema Enamorado - Last Filed: 05/21/18 07:24> Heart Score/ECG Review - ECG Intrepretation Comment:: 05/20/18 19:55 NSR, normal axis, bifacicular block, long QTc, no ischemia, no arrhythmia, no peaked Twaves. <Jessy Hong - Last Filed: 05/20/18 19:52> ED Treatment Course - LABORATORY CBC & Chemistry Diagram: 05/20/18 18:32 05/20/18 18:34 - ADDITIONAL ORDERS Additional order review: Laboratory Results 05/20/18 05/20/18 05/20/18 18:34 18:34 18:34 PT with INR 13.20 H INR 1.17 H Sodium 142 Potassium 4.5 Chloride 107 Carbon Dioxide 28 Anion Gap 7 L BUN 22 H Creatinine 1.2 Creat Clearance w eGFR 58.86 Random Glucose 77 D Lactic Acid 1.5 Calcium 8.1 L Total Bilirubin 0.4 AST 21 D ALT 22 Alkaline Phosphatase 74 D Creatine Kinase 40 Troponin I 0.02 Total Protein 4.9 L Albumin 2.6 L 05/20/18 18:32 RBC 3.95 L MCV 90.1 MCHC 31.7 L RDW 16.4 H MPV 7.5 Neutrophils % 70.5 D Lymphocytes % 20.7 D Monocytes % 7.4 Eosinophils % 0.9 Basophils % 0.5 - Medications Given in the ED: ED Medications Discontinued Medications Generic Name Dose Route Start Last Admin Trade Name Freq PRN Reason Stop Dose Admin Fentanyl 50 mcg 05/20/18 18:39 05/20/18 18:56 Sublimaze Injection - IVPUSH 05/20/18 18:40 50 mcg ONCE ONE Administration Piperacillin Sod/Tazobactam 50 mls @ 100 mls/hr 05/20/18 18:39 05/20/18 18:56 Sod 3.375 gm/ Dextrose IVPB 05/20/18 19:08 100 mls/hr ONCE ONE Administration Protocol Lorazepam 1 mg 05/20/18 18:39 05/20/18 18:56 Ativan Injection - IVPUSH 05/20/18 18:40 1 mg ONCE ONE Administration <Ligia Canchola - Last Filed: 05/20/18 19:48> - LABORATORY CBC & Chemistry Diagram: 05/20/18 18:32 05/20/18 18:34 - ADDITIONAL ORDERS Additional order review: Laboratory Results 05/20/18 05/20/18 05/20/18 18:34 18:34 18:34 PT with INR 13.20 H INR 1.17 H Sodium 142 Potassium 4.5 Chloride 107 Carbon Dioxide 28 Anion Gap 7 L BUN 22 H Creatinine 1.2 Creat Clearance w eGFR 58.86 Random Glucose 77 D Lactic Acid 1.5 Calcium 8.1 L Total Bilirubin 0.4 AST 21 D ALT 22 Alkaline Phosphatase 74 D Creatine Kinase 40 Troponin I 0.02 Total Protein 4.9 L Albumin 2.6 L Blood Type Antibody Screen 05/20/18 18:30 PT with INR INR Sodium Potassium Chloride Carbon Dioxide Anion Gap BUN Creatinine Creat Clearance w eGFR Random Glucose Lactic Acid Calcium Total Bilirubin AST ALT Alkaline Phosphatase Creatine Kinase Troponin I Total Protein Albumin Blood Type O POSITIVE Antibody Screen Negative 05/20/18 18:32 RBC 3.95 L MCV 90.1 MCHC 31.7 L RDW 16.4 H MPV 7.5 Neutrophils % 70.5 D Lymphocytes % 20.7 D Monocytes % 7.4 Eosinophils % 0.9 Basophils % 0.5 - RADIOLOGY Radiology Studies Ordered: Category Date Time Status CHEST X-RAY PORTABLE* [RAD] Stat Radiology 05/20/18 18:32 Taken - Medications Given in the ED: ED Medications Discontinued Medications Generic Name Dose Route Start Last Admin Trade Name Freq PRN Reason Stop Dose Admin Fentanyl 50 mcg 05/20/18 18:39 05/20/18 18:56 Sublimaze Injection - IVPUSH 05/20/18 18:40 50 mcg ONCE ONE Administration Fentanyl 50 mcg 05/20/18 19:37 05/20/18 19:30 Sublimaze Injection - IVPUSH 05/20/18 19:38 50 mcg ONCE ONE Administration Piperacillin Sod/Tazobactam 50 mls @ 100 mls/hr 05/20/18 18:39 05/20/18 18:56 Sod 3.375 gm/ Dextrose IVPB 05/20/18 19:08 100 mls/hr ONCE ONE Administration Protocol Lorazepam 1 mg 05/20/18 18:39 05/20/18 18:56 Ativan Injection - IVPUSH 05/20/18 18:40 1 mg ONCE ONE Administration <Jessy Hong - Last Filed: 05/20/18 19:52> - LABORATORY CBC & Chemistry Diagram: 05/21/18 05:40 05/21/18 05:40 - ADDITIONAL ORDERS Additional order review: Laboratory Results 05/20/18 05/20/18 05/20/18 18:34 18:34 18:34 PT with INR 13.20 H INR 1.17 H Sodium 142 Potassium 4.5 Chloride 107 Carbon Dioxide 28 Anion Gap 7 L BUN 22 H Creatinine 1.2 Creat Clearance w eGFR 58.86 Random Glucose 77 D Lactic Acid 1.5 Calcium 8.1 L Total Bilirubin 0.4 AST 21 D ALT 22 Alkaline Phosphatase 74 D Creatine Kinase 40 Troponin I 0.02 Total Protein 4.9 L Albumin 2.6 L 05/20/18 18:32 RBC 3.95 L MCV 90.1 MCHC 31.7 L RDW 16.4 H MPV 7.5 Neutrophils % 70.5 D Lymphocytes % 20.7 D Monocytes % 7.4 Eosinophils % 0.9 Basophils % 0.5 - RADIOLOGY Radiology Studies Ordered: Category Date Time Status HEAD CT WITHOUT CONTRAST [CT] Stat CT Scan 05/20/18 19:29 Ordered - Medications Given in the ED: ED Medications Discontinued Medications Generic Name Dose Route Start Last Admin Trade Name Garfield PRN Reason Stop Dose Admin Fentanyl 50 mcg 05/20/18 18:39 05/20/18 18:56 Sublimaze Injection - IVPUSH 05/20/18 18:40 50 mcg ONCE ONE Administration Piperacillin Sod/Tazobactam 50 mls @ 100 mls/hr 05/20/18 18:39 05/20/18 18:56 Sod 3.375 gm/ Dextrose IVPB 05/20/18 19:08 100 mls/hr ONCE ONE Administration Protocol Lorazepam 1 mg 05/20/18 18:39 05/20/18 18:56 Ativan Injection - IVPUSH 05/20/18 18:40 1 mg ONCE ONE Administration <Chema Enamorado - Last Filed: 05/21/18 07:24> Medical Decision Making - Critical Care Time Total Critical Care Time (minutes): 60 Critical Care Statement: The care of this patient involved high complexity decision making to prevent further life threatening deterioration of the patient 's condition and/or to evaluate & treat vital organ system(s) failure or risk of failure. - Medical Decision Making 05/20/18 19:52 78yoM w/ renal transplant, DM, prior cardiac arrest presents w/ hypoglycemia, apnea and shock requiring pressors and extensive critical care. Pt DC'ed yesterday after admission for c.diff colitis and LLE DVT newly started on AC. - crit care time 60 min - labs - ekg - cxr - fs - bolus nS x 2L, D5NS x 1L - dextrose PRN hypoglycemia - vanco/zosyn - pressor support for hypotension refractory to fluid resuscitation 30cc/kg administered. - CTH for persistent AMS - post-intubation sensation w/ fentanyl/ativan - admit ICU. <Jessy Hong - Last Filed: 05/20/18 19:52> *DC/Admit/Observation/Transfer - Attestations Scribe Attestion: 05/20/18 19:48 Documentation prepared by Ligia Canchola, acting as medical record transcriber for Jessy Hong MD. <Ligia Canchola - Last Filed: 05/20/18 19:48> <Jessy Hong - Last Filed: 05/20/18 19:52> - Discharge Dispostion Decision to Admit order: Yes <Chema Enamorado - Last Filed: 05/21/18 07:24> Diagnosis at time of Disposition: Hypoglycemia, IDDM (insulin dependent diabetes mellitus), Shock, Collapse Hypotension Qualifiers: Hypotension type: unspecified hypotension type Qualified Code(s): I95.9 - Hypotension, unspecified
[2018-05-20] MEDS ORDERED: PHENYLEPHRINE HCL 10 MG/1 ML SINGLE DOSE VIAL IVPB ONE (19:49)
[2018-05-20] MEDS ORDERED: DEXTROSE 5%-NORMAL SALINE 1,000 ML IV ONE (19:50)
[2018-05-20 20:00] LABS: ARTERIAL BLD GAS O2 SATURATION 95.8 % (90-98.9); ARTERIAL BLOOD GAS BASE EXCESS -1.8 meq/l (-2-2); ARTERIAL BLOOD GAS PCO2 49.6 mmHg (35-45); ARTERIAL BLOOD GAS PO2 87.1 mmHg (70-100); ARTERIAL BLOOD GAS pH 7.31 (7.35-7.45); CARBOXYHEMOGLOBIN 1.8 gm% (0.5-2.0)
[2018-05-20 20:03] LABS: ALLENS TEST POSITIVE
--- NOTE | 2018-05-20 20:11 | PDOC ---
*Physical Exam - Vital Signs Last Vital Signs Temp Pulse Resp BP Pulse Ox 99 H 14 79/31 98 05/20/18 19:37 05/20/18 18:35 05/20/18 19:37 05/20/18 18:35 ED Treatment Course - LABORATORY CBC & Chemistry Diagram: 05/21/18 05:40 05/21/18 05:40 - ADDITIONAL ORDERS Additional order review: Laboratory Results 05/20/18 05/20/18 05/20/18 19:50 18:34 18:34 PT with INR INR Anticoagulation Therapy No Result Required. Puncture Site Left brachial ABG pH 7.31 L ABG pCO2 at Pt Temp 49.6 H ABG pO2 at Pt Temp 87.1 D ABG HCO3 24.3 ABG O2 Sat (Measured) 95.8 ABG O2 Content 16.1 ABG Base Excess -1.8 Patrice Test Positive Carboxyhemoglobin 1.8 Methemoglobin 1.3 O2 Delivery Device Vent Oxygen Flow Rate 50 Vent Mode No Result Required. Vent Rate 14 Mechanical Rate No Result Required. PEEP 5.0 Pressure Support Vent 450 Sodium 142 Potassium 4.5 Chloride 107 Carbon Dioxide 28 Anion Gap 7 L BUN 22 H Creatinine 1.2 Creat Clearance w eGFR 58.86 Random Glucose 77 D Lactic Acid 1.5 Calcium 8.1 L Total Bilirubin 0.4 AST 21 D ALT 22 Alkaline Phosphatase 74 D Creatine Kinase 40 Troponin I 0.02 Total Protein 4.9 L Albumin 2.6 L Blood Type Antibody Screen 05/20/18 05/20/18 18:34 18:30 PT with INR 13.20 H INR 1.17 H Anticoagulation Therapy Puncture Site ABG pH ABG pCO2 at Pt Temp ABG pO2 at Pt Temp ABG HCO3 ABG O2 Sat (Measured) ABG O2 Content ABG Base Excess Patrice Test Carboxyhemoglobin Methemoglobin O2 Delivery Device Oxygen Flow Rate Vent Mode Vent Rate Mechanical Rate PEEP Pressure Support Vent Sodium Potassium Chloride Carbon Dioxide Anion Gap BUN Creatinine Creat Clearance w eGFR Random Glucose Lactic Acid Calcium Total Bilirubin AST ALT Alkaline Phosphatase Creatine Kinase Troponin I Total Protein Albumin Blood Type O POSITIVE Antibody Screen Negative 05/20/18 18:32 RBC 3.95 L MCV 90.1 MCHC 31.7 L RDW 16.4 H MPV 7.5 Neutrophils % 70.5 D Lymphocytes % 20.7 D Monocytes % 7.4 Eosinophils % 0.9 Basophils % 0.5 - Medications Given in the ED: ED Medications Discontinued Medications Generic Name Dose Route Start Last Admin Trade Name Garfield PRN Reason Stop Dose Admin Fentanyl 50 mcg 05/20/18 18:39 05/20/18 18:56 Sublimaze Injection - IVPUSH 05/20/18 18:40 50 mcg ONCE ONE Administration Fentanyl 50 mcg 05/20/18 19:37 05/20/18 19:30 Sublimaze Injection - IVPUSH 05/20/18 19:38 50 mcg ONCE ONE Administration Piperacillin Sod/Tazobactam 50 mls @ 100 mls/hr 05/20/18 18:39 05/20/18 18:56 Sod 3.375 gm/ Dextrose IVPB 05/20/18 19:08 100 mls/hr ONCE ONE Administration Protocol Lorazepam 1 mg 05/20/18 18:39 05/20/18 18:56 Ativan Injection - IVPUSH 05/20/18 18:40 1 mg ONCE ONE Administration Medical Decision Making - Medical Decision Making 78 year old with C. Diff presenting with hypotensive with central line in place. Labs pending, Levophed running, Dr. Tovar called in and expressed concern that this patient needs to be placed in a NH after his admission here is complete. 05/20/18 20:07 Signed out patient to Dr. Sellers from IM admitting service and Anthony Mora of the ICU. Both will evaluate the patient. Maintain of 60 on 20 of Levo and 20 of Dopamine. 05/20/18 20:57 *DC/Admit/Observation/Transfer Diagnosis at time of Disposition: Hypoglycemia, IDDM (insulin dependent diabetes mellitus), Shock, Collapse Hypotension Qualifiers: Hypotension type: unspecified hypotension type Qualified Code(s): I95.9 - Hypotension, unspecified - Discharge Dispostion Condition at time of disposition: Stable Decision to Admit order: Yes - Referrals - Patient Instructions - Post Discharge Activity
--- NOTE | 2018-05-20 21:21 | HP ---
CHIEF COMPLAINT: Hypoglycemia/Respiratory distress PCP: Dr. Eid HISTORY OF PRESENT ILLNESS: 78yo M with history of Renal transplant (on immunosuppression; '09), DM, and prior arrests noted with hypoglycemia and resp failure, and recent admission with DVT found in LLE (started on elqiuis) who comes in today for hypoglycemia and respiratory failure. Pt is currently intubated with minimal arousal and HPI provided by chart. Earlier today pt was found to be hypoglycemic to 20 and upon ambulance arrival gave an ampule of D50, however his hypoglycemia was not responsive. At this time he developed respiratory distress and eventually failure so he was intubated in the field under rapid sequence intubation. Pt was brought here for further evaluation. In the ED, pt was given Fentanyl 100mcg and Ativan 2mg x1, however there is no report as to why this occurred and only speculation to agitation of some type. Pt was also found to be hypotensive and pt was started on Dopamine peripherally while a femoral line was placed so that Levophed could be started as well. Upon my evaluation, pt is intubated without sedation and arousable to voice appropriately. (1) Intubation (2) Femoral line placement (3) Vancomycin and Zosyn x1 dose each (4) ABG 7.31/49.6/87.1 (5) Fentanyl 100mcg, Ativan 2mg x1 each PAST MEDICAL HISTORY: Renal transplant IDDM HTN PAD CAD s/p VT and CABG CHF Previous admission for C. Diff Previous admission for DVT (2 days ago; started eliquis) PAST SURGICAL HISTORY: AVF R upper arm (supposedly non-working per chart?) CABG s/p Kidney Transplant (2008) Social History: Smoking: None recorded Alcohol: None recorded Drugs: None recorded Family History: Unable to obtain at this point; none recorded Allergies No Known Drug Allergies Allergy (Verified 05/20/18 18:32) HOME MEDICATIONS: Home Medications Medication Instructions Recorded Acetaminophen [Tylenol .Regular 650 mg PO Q4H PRN tablet 11/29/17 Strength -] Albuterol 2.5/Ipratropium 0.5 1 amp NEB QID 02/08/18 [Duoneb -] Amlodipine Besylate [Norvasc -] 10 mg PO DAILY #30 tablet 05/19/18 Apixaban [Eliquis -] 5 mg PO BID tablet 05/19/18 Apixaban [Eliquis] 5 mg PO BID #60 tablet 05/19/18 Aspirin [Jena Chewable Aspirin] 81 mg PO HS #30 tab.chew 05/19/18 Atorvastatin Ca [Lipitor] 80 mg PO HS #60 tablet 05/19/18 Carvedilol [Coreg -] 25 mg PO BID #60 tablet 05/19/18 Duloxetine HCl [Cymbalta] 20 mg PO BID #60 capsule. 05/19/18 Insulin Aspart [Novolog Flexpen] 100 unit SQ AC #1 insuln.pen 05/19/18 Insulin Detemir [Levemir Flextouch] 18 unit SQ AM #1 insuln.pen 05/19/18 Magnesium Oxide [Mag-Ox -] 400 mg PO BID tablet 05/19/18 Mycophenolate Sodium [Mycophenolic 360 mg PO BID #60 tablet. 05/19/18 Acid] Pen Needle, Diabetic [Pen Needle] 1 each ACHS #100 dis.needle 05/19/18 Tacrolimus 1 mg PO BID #60 capsule 05/19/18 Tamsulosin HCl [Flomax] 0.4 mg PO HS #30 cap.er.24h 05/19/18 hydrALAZINE HCL [Apresoline -] 25 mg PO BID #60 tablet 05/19/18 predniSONE [Deltasone -] 5 mg PO DAILY #30 tablet 05/19/18 REVIEW OF SYSTEMS Unable to obtain due to clinical condition. Please see HPI. PHYSICAL EXAMINATION Vital Signs - 24 hr 05/20/18 05/20/18 05/20/18 18:34 18:35 18:45 Pulse Rate 70 70 Pulse Rate [ Apical] Respiratory 18 14 Rate Blood Pressure 80/50 58/28 Blood Pressure [Left Arm] O2 Sat by Pulse 100 98 Oximetry (%) 05/20/18 05/20/18 05/20/18 19:10 19:30 19:37 Pulse Rate 93 H 98 H 99 H Pulse Rate [ Apical] Respiratory Rate Blood Pressure 58/28 79/31 Blood Pressure [Left Arm] O2 Sat by Pulse 95 Oximetry (%) 05/20/18 05/20/18 05/20/18 19:55 20:10 20:56 Pulse Rate Pulse Rate [ 97 H 100 H 93 H Apical] Respiratory 14 14 20 Rate Blood Pressure Blood Pressure 98/44 111/41 119/42 [Left Arm] O2 Sat by Pulse 95 95 95 Oximetry (%) GENERAL: NAD, arousable to voice, intubated, not sedated HEENT: NC/AT, EOMI, JOHNNY with 4mm pupils, MMM, no overt secretions when ETT suctioned. No JVD currently LUNGS: Diminished breath sounds with crackles at the bases bilaterally. No wheezes. No accessory muscle use. AC mode of vent currently HEART: Slightly tachycardic (95bpm on monitor) with regular rhythm, normal S1 and S2 without murmur ABDOMEN: Soft, NT/ND, normoactive bowel sounds, no guarding, no rebound, no masses. No hepatomegaly or splenomegaly. EXTREMITIES: R palpable thrill noted on AVF site of upper arm, 1+ DP pulses, warm, well-perfused. L 2+ pitting edema to knee with R 1+ edema to ankle GROIN: R femoral catheter in place with biopatch noted and overlying sterile bandage; pressors infusing through, Rodriguez intact with clear-yellow fluid minimally coming to collection bag SKIN: Warm, dry, no rashes or lesions noted, normal capillary refill. Laboratory Results - last 24 hr 05/20/18 05/20/18 05/20/18 18:30 18:32 18:34 WBC 9.4 RBC 3.95 L Hgb 11.3 L Hct 35.6 MCV 90.1 MCH 28.6 MCHC 31.7 L RDW 16.4 H Plt Count 244 MPV 7.5 Absolute Neuts (auto) 6.7 Neutrophils % 70.5 D Lymphocytes % 20.7 D Monocytes % 7.4 Eosinophils % 0.9 Basophils % 0.5 Nucleated RBC % 0 PT with INR 13.20 H INR 1.17 H Anticoagulation Therapy Puncture Site ABG pH ABG pCO2 at Pt Temp ABG pO2 at Pt Temp ABG HCO3 ABG O2 Sat (Measured) ABG O2 Content ABG Base Excess Patrice Test Carboxyhemoglobin Methemoglobin O2 Delivery Device Oxygen Flow Rate Vent Mode Vent Rate Mechanical Rate PEEP Pressure Support Vent Sodium Potassium Chloride Carbon Dioxide Anion Gap BUN Creatinine Creat Clearance w eGFR Random Glucose Lactic Acid Calcium Total Bilirubin AST ALT Alkaline Phosphatase Creatine Kinase Troponin I Total Protein Albumin Blood Type O POSITIVE Antibody Screen Negative 05/20/18 05/20/18 05/20/18 18:34 18:34 19:50 WBC RBC Hgb Hct MCV MCH MCHC RDW Plt Count MPV Absolute Neuts (auto) Neutrophils % Lymphocytes % Monocytes % Eosinophils % Basophils % Nucleated RBC % PT with INR INR Anticoagulation Therapy No Result Required. Puncture Site Left brachial ABG pH 7.31 L ABG pCO2 at Pt Temp 49.6 H ABG pO2 at Pt Temp 87.1 D ABG HCO3 24.3 ABG O2 Sat (Measured) 95.8 ABG O2 Content 16.1 ABG Base Excess -1.8 Patrice Test Positive Carboxyhemoglobin 1.8 Methemoglobin 1.3 O2 Delivery Device Vent Oxygen Flow Rate 50 Vent Mode No Result Required. Vent Rate 14 Mechanical Rate No Result Required. PEEP 5.0 Pressure Support Vent 450 Sodium 142 Potassium 4.5 Chloride 107 Carbon Dioxide 28 Anion Gap 7 L BUN 22 H Creatinine 1.2 Creat Clearance w eGFR 58.86 Random Glucose 77 D Lactic Acid 1.5 Calcium 8.1 L Total Bilirubin 0.4 AST 21 D ALT 22 Alkaline Phosphatase 74 D Creatine Kinase 40 Troponin I 0.02 Total Protein 4.9 L Albumin 2.6 L Blood Type Antibody Screen ASSESSMENT/PLAN: Neuro: Pt not sedated currently with resolving unresponsiveness Pt now is moving slightly in four extremities and arousable --Can start Fentanyl 50mcg/hr if pt becomes agitated and fully awake later Respiratory: Acute Hypoxic Respiratory Failure: Intubated and sedated currently Continue to wean requirements as needed Maintain SpO2 >90% Aspiration preacautions: HOB 35* Unknown cause of sudden decline --Doubt infection --Possibility of PE due to DVT hx --Possibility of hypoglycemic shock CXR reviewed ABG noted: 7.31 pH Cardiac: Shock syndrome: --Unsure of specific shock, but obstructive vs. distributive shock are top --PE would explain both this and acute hypoxic resp failure --CTA stat ordered, in meantime thought of getting doppler of LExt to r /o partial DVT as evidence of embolization --Monitor Cr with transplant in mind --Wean off dopamine (initial wean from 10 to 20 showing MAP maintained at 63) --Continue Levophed as needed (currently 20mcg) --Hold home antihypertensives for now (Hydralazine, Norvasc, Coreg) Recent history of LLE DVT --Continue Eliquis 5mg PO BID Renal: History of renal transplant --Cr at baseline --Rodriguez showing clear-yellow urine --Continue Tacrolimus --Continue Prednisone 5mg Continue rodriguez mgmt --0.5cc/kg/hr goal for urine output ID: Doubt any active infection with sudden onset, afebrile, no leukocytosis s/p Zosyn 3.35 and Vancomycin in ED FEN: Fluids: Bolus 1LNS Electrolyte abnormalities: None currently Nutrition: NPO PPX: DVT - Already on Eliquis 5mg BID GI - Not indicated right now Dispo: Admit ICU Case discussed with Dr. Slim Sellers, DO - IM PGY-1 Visit type - Emergency Visit Emergency Visit: Yes ED Registration Date: 05/20/18 Care time: The patient presented to the Emergency Department on the above date and was hospitalized for further evaluation of their emergent condition. - New Patient This patient is new to me today: Yes Date on this admission: 05/21/18 - Critical Care Critical Care patient: Yes Total Critical Care Time (in minutes): 40 Critical Care Statement: The care of this patient involved high complexity decision making to prevent further life threatening deterioration of the patient 's condition and/or to evaluate & treat vital organ system(s) failure or risk of failure. Hospitalist Screening - Colonoscopy Questionnaire Colonoscopy Questionnaire: Colonoscopy Questionnaire - Patient: 50 - 75 years old and never had a screening colonoscopy: Unknown History of colon or rectal polyps, or CA: Unknown History of IBD, Crohn's disease or UC: Unknown History of abdominal radiation therapy as a child: Unknown - Relative: 1 with colon or rectal CA, or polyps at age 60 or younger: Unknown Colon or rectal CA diagnosed at age 45 or younger: Unknown Multiple relatives with colon or rectal CA: Unknown - Outcome: Screening Result: Negative Screen
[2018-05-20 21:46] LABS: URINE APPEARANCE CLEAR; URINE BILIRUBIN NEGATIVE (<2.0 mg/dL); URINE COLOR LTYELLOW; URINE GLUCOSE (UA) 3+ (NEGATIVE); URINE KETONE NEGATIVE (NEGATIVE); URINE LEUK ESTERASE NEGATIVE (NEGATIVE); URINE NITRITE NEGATIVE (NEGATIVE); URINE PROTEIN 1+ (NEGATIVE); URINE UROBILINOGEN NEGATIVE mg/dL (0.2-1.0)
[2018-05-20 21:48] LABS: EPI CELLS RARE /HPF (FEW); URINE MUCUS RARE
[2018-05-20] MEDS ORDERED: SODIUM CHLORIDE 500 ML IV STA (21:58)
[2018-05-20] MEDS ORDERED: HEPARIN NA (PORCINE) 5,000 UNITS/ML 1ML VIAL SQ SCH (22:00)
[2018-05-20] MEDS ORDERED: APIXABAN 5 MG TABLET PO SCH (22:00)
[2018-05-20] MEDS: MUPIROCIN 2% TOPICAL OINTMENT FOR DECOLONIZATION NS SCH (23:25)
[2018-05-20] MEDS: CHLORHEXIDINE GLUCONATE 4% CLEANSER FOR DECOLONIZATION TP SCH (23:26)
[2018-05-20] MEDS: TACROLIMUS ANHYDROUS 1 MG CAPSULE PO SCH (23:30)
--- NOTE | 2018-05-21 03:58 | PN ---
Teaching Attending Note Name of Resident: Parvez Sellers ATTENDING PHYSICIAN STATEMENT I saw and evaluated the patient. I reviewed the resident's note and discussed the case with the resident. I agree with the resident's findings and plan as documented. SUBJECTIVE: 78M IDDM, HTN, CAD, CABG, renal transplant presented with unresponsiveness at home after being discharged day prior. Was found by ems to be hypoglycemic to 20 and did not respond to treatment, leading to intubation. tmax 100 BP 100/90 intubated on pressors suspect DVT may have now become PE , vs recurrent septic shock elevated BNP may be in the setting of a large PE with Rt sided failure versus chronic heart failure CTA to evalaute for PE, cautious due to his kidney transplant.however if he is havving a massive PE then thrombectomy may need to be considered. Zosyn - unclear if sepsis and doubtful that he would develop shockwithin 24 hours of discharge titrate off dopamine, continue levophed for pressor support IVF
[2018-05-21 04:18] LABS: ANION GAP 8 (8-16); BLOOD UREA NITROGEN 21 mg/dL (7-18); CALCIUM 7.6 mg/dL (8.5-10.1); CHLORIDE 100 mmol/L (98-107); CO2 25 mmol/L (21-32); CREATININE 1.4 mg/dL (0.7-1.3); GLUCOSE,RANDOM 285 mg/dL (74-106); POTASSIUM 4.6 mmol/L (3.5-5.1); SODIUM 133 mmol/L (136-145)
[2018-05-21] MEDS ORDERED: ACETAMINOPHEN 1000 MG/100 ML VIAL (NON FORMULARY) IVPB PRN (05:09)
[2018-05-21 06:24] LABS: HEMATOCRIT 34.6 % (35.4-49); HEMOGLOBIN 11.4 GM/dL (11.7-16.9); MCH 28.9 pg (25.7-33.7); MCHC 32.9 g/dl (32.0-35.9); MEAN CELL VOLUME 87.9 fl (80-96); MEAN PLT VOLUME 7.5 fl (7.5-11.1); PLATELET COUNT 265 K/MM3 (134-434); RBC 3.94 M/mm3 (4.00-5.60); WHITE BLOOD COUNT 15.4 K/mm3 (4.0-10.0)
[2018-05-21 06:26] LABS: ALBUMIN 2.7 g/dl (3.4-5.0); ALK PHOS 72 U/L (45-117); ANION GAP 8 (8-16); BILIRUBIN,TOTAL 0.5 mg/dL (0.2-1.0); BLOOD UREA NITROGEN 20 mg/dL (7-18); CALCIUM 7.7 mg/dL (8.5-10.1); CHLORIDE 103 mmol/L (98-107); CO2 23 mmol/L (21-32); CREATININE 1.4 mg/dL (0.7-1.3); GLUCOSE,RANDOM 258 mg/dL (74-106); MAGNESIUM 1.4 mg/dL (1.8-2.4); PHOSPHOROUS 2.4 mg/dL (2.5-4.9); POTASSIUM 4.7 mmol/L (3.5-5.1); SGOT/AST 15 U/L (15-37); SGPT/ALT 22 U/L (12-78); SODIUM 134 mmol/L (136-145); TOT PROT 4.9 g/dl (6.4-8.2)
[2018-05-21] MEDS ORDERED: MAGNESIUM 1GM/D5W 100ML - 100 ML IVPB IVPB ONE (06:45)
[2018-05-21] MEDS ORDERED: SODIUM PHOSPHATE - 30 MM in DEXTROSE 5%-WATER - 250 ML IVPB ONE (06:45)
[2018-05-21] MEDS: INSULIN SLIDING SCALE (NOVOLOG) 1 VIAL SQ SCH ×3 (07:44→16:25)
[2018-05-21] MEDS ORDERED: INSULIN (NOVOLOG) ASPART 100 UNITS/ML 10ML VIAL ONE ×2 (07:47→12:05)
[2018-05-21] MEDS ORDERED: MAGNESIUM 1GM/D5W - 1 GM/100 ML IVPB IVPB ONE (09:22)
--- NOTE | 2018-05-21 09:27 | EKG ---
Test Reason : Blood Pressure : / mmHG Vent. Rate : 069 BPM Atrial Rate : 069 BPM P-R Int : 162 ms QRS Dur : 170 ms QT Int : 484 ms P-R-T Axes : 028 -53 024 degrees QTc Int : 518 ms NORMAL SINUS RHYTHM RIGHT BUNDLE BRANCH BLOCK LEFT ANTERIOR FASCICULAR BLOCK BIFASCICULAR BLOCK ABNORMAL ECG WHEN COMPARED WITH ECG OF 15-MAY-2018 19:24, NONSPECIFIC T WAVE ABNORMALITY HAS REPLACED INVERTED T WAVES IN ANTERIOR LEADS QT HAS LENGTHENED Confirmed by EDGAR DE LA TORRE MD ([id number]) on 05/21/2018 9:27:20 AM Referred By: Confirmed By:EDGAR DE LA TORRE MD
[2018-05-21] MEDS ORDERED: LORazepam 2 MG/ML SDV VIAL ONE (09:28)
--- NOTE | 2018-05-21 09:36 | HP ---
Admitting History and Physical - Admission History of Present Illness: 78yo M with history of Renal transplant (on immunosuppression; '09), DM, and prior arrests noted with hypoglycemia and resp failure, and recent admission with DVT found in LLE (started on elqiuis) who comes in for hypoglycemia and respiratory failure. Pt is currently intubated with minimal arousal and HPI provided by chart. Earlier today pt was found to be hypoglycemic to 20 and upon ambulance arrival gave an ampule of D50, however his hypoglycemia was not responsive. At this time he developed respiratory distress and eventually failure so he was intubated in the field under rapid sequence intubation. Pt was brought here for further evaluation. Pt was also found to be hypotensive and pt was started on Dopamine peripherally while a femoral line was placed so that Levophed could be started as well. This am pt on vent awake and responsive - Past Medical History Cardiovascular: Yes: CAD, CHF, HTN, [place], Other Renal/: Yes: Other (S/P Kidney tranplant 2008. 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 coli in past, osteomyelitis of his finger) Endocrine: Yes: Diabetes Mellitus - Past Surgical History Past Surgical History: Yes: AV Fistula/Graft (right upper arm, non working), CABG, Kidney Transplant (right 2008) - Smoking History Smoking history: Never smoked Have you smoked in the past 12 months: No Aproximately how many cigarettes per day: 0 - Alcohol/Substance Use Hx Alcohol Use: No History of Substance Use: reports: None - Social History ADL: Support Services History of Recent Travel: No Home Medications - Allergies Allergies/Adverse Reactions: Allergies Allergy/AdvReac Type Severity Reaction Status Date / Time No Known Drug Allergies Allergy Verified 05/20/18 18:32 - Home Medications Home Medications: Ambulatory Orders Acetaminophen [Tylenol .Regular Strength -] 650 mg PO Q4H PRN tablet 11/29/17 Albuterol 2.5/Ipratropium 0.5 [Duoneb -] 1 amp NEB QID 02/08/18 Amlodipine Besylate [Norvasc -] 10 mg PO DAILY #30 tablet 05/19/18 Apixaban [Eliquis] 5 mg PO BID #60 tablet 05/19/18 Aspirin [Jena Chewable Aspirin] 81 mg PO HS #30 tab.chew 05/19/18 Atorvastatin Ca [Lipitor] 80 mg PO HS #60 tablet 05/19/18 Carvedilol [Coreg -] 25 mg PO BID #60 tablet 05/19/18 Duloxetine HCl [Cymbalta] 20 mg PO BID #60 capsule. 05/19/18 Insulin Aspart [Novolog Flexpen] 100 unit SQ AC #1 insuln.pen 05/19/18 Insulin Detemir [Levemir Flextouch] 18 unit SQ AM #1 insuln.pen 05/19/18 Magnesium Oxide [Mag-Ox -] 400 mg PO BID tablet 05/19/18 Mycophenolate Sodium [Mycophenolic Acid] 360 mg PO BID #60 tablet. 05/19/18 Pen Needle, Diabetic [Pen Needle] 1 each ACHS #100 dis.needle 05/19/18 Tacrolimus 1 mg PO BID #60 capsule 05/19/18 Tamsulosin HCl [Flomax] 0.4 mg PO HS #30 cap.er.24h 05/19/18 hydrALAZINE HCL [Apresoline -] 25 mg PO BID #60 tablet 05/19/18 predniSONE [Deltasone -] 5 mg PO DAILY #30 tablet 05/19/18 Physical Examination Vital Signs: Vital Signs Temperature 102.0 F H 05/21/18 06:20 Pulse Rate 73 05/21/18 08:51 Respiratory Rate 15 05/21/18 08:34 Blood Pressure 153/48 05/21/18 08:51 O2 Sat by Pulse Oximetry (%) 100 05/21/18 08:34 Cardiovascular: Yes: S1, S2 Respiratory: Yes: Mechanically Ventilated Gastrointestinal: Yes: Normal Bowel Sounds, Soft Edema: No Neurological: Yes: Alert Labs: CBC, BMP 05/21/18 05:40 05/21/18 05:40 Imaging - Results X-ray: Report Reviewed Problem List - Problems (1) Acute respiratory failure Assessment/Plan: -May have been due to hypoglycemia -monitor in icu -must rule out other etiologies -follow labs -pulm/cardio Code(s): J96.00 - ACUTE RESPIRATORY FAILURE, UNSP W HYPOXIA OR HYPERCAPNIA (2) Hypoglycemia Assessment/Plan: -Hold insulin -bgm -endo Code(s): E16.2 - HYPOGLYCEMIA, UNSPECIFIED (3) Hypotension Assessment/Plan: -pressers -icu monitoring Code(s): I95.9 - HYPOTENSION, UNSPECIFIED Qualifiers: Hypotension type: unspecified hypotension type Qualified Code(s): I95.9 - Hypotension, unspecified (4) IDDM (insulin dependent diabetes mellitus) Assessment/Plan: -insulin Code(s): E11.9 - TYPE 2 DIABETES MELLITUS WITHOUT COMPLICATIONS; Z79.4 - INTERMEDIATE (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 OF INSULIN (5) Sepsis Assessment/Plan: -Cultures -Iv abx -ID consult -IV Steroids Code(s): A41.9 - SEPSIS, UNSPECIFIED ORGANISM
[2018-05-21] MEDS: TACROLIMUS ANHYDROUS 1 MG CAPSULE PO SCH (10:00)
[2018-05-21] MEDS ORDERED: predniSONE 5 MG TABLET (UD) PO SCH (10:00)
[2018-05-21] MEDS ORDERED: PIPERACILLIN/TAZOB 3.375 GM 3.375 GM in DEXTROSE 5%-WATER - 50 ML IVPB SCH (13:00)
--- NOTE | 2018-05-21 13:03 | CON.NEP ---
Consult Consult Specialty:: Nephrology - History of Present Illness Chief Complaint: hypoglycemia History of Present Illness: 8yo M with history of Renal transplant (on immunosuppression; '09), DM, and prior arrests noted with hypoglycemia and resp failure, and recent admission with DVT found in LLE (started on elqiuis) who comes in today for hypoglycemia and respiratory failure. Pt is currently intubated with minimal arousal. He was just discharged 2 days ago from this hospital after being treated for a pneumonia. He is unable to give any history as he is intubated - History Source History Provided By: Medical Record Limitations to Obtaining History: Intubated - Past Medical History Cardio/Vascular: Yes: CAD, CHF, HTN, [place], Other Renal/: Yes: Other (S/P Kidney tranplant 2008. 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 coli in past, osteomyelitis of his finger) Endocrine: Yes: Diabetes Mellitus - Past Surgical History Past Surgical History: Yes: AV Fistula/Graft (right upper arm, non working), CABG, Kidney Transplant (right 2008) - Alcohol/Substance Use Hx Alcohol Use: No History of Substance Use: reports: None - Smoking History Smoking history: Never smoked Have you smoked in the past 12 months: No Aproximately how many cigarettes per day: 0 - Social History Usual Living Arrangement: Alone ADL: Support Services History of Recent Travel: No Home Medications - Allergies Allergies/Adverse Reactions: Allergies Allergy/AdvReac Type Severity Reaction Status Date / Time No Known Drug Allergies Allergy Verified 05/20/18 18:32 - Home Medications Home Medications: Ambulatory Orders Acetaminophen [Tylenol .Regular Strength -] 650 mg PO Q4H PRN tablet 11/29/17 Albuterol 2.5/Ipratropium 0.5 [Duoneb -] 1 amp NEB QID 02/08/18 Amlodipine Besylate [Norvasc -] 10 mg PO DAILY #30 tablet 05/19/18 Apixaban [Eliquis] 5 mg PO BID #60 tablet 05/19/18 Aspirin [Jena Chewable Aspirin] 81 mg PO HS #30 tab.chew 05/19/18 Atorvastatin Ca [Lipitor] 80 mg PO HS #60 tablet 05/19/18 Carvedilol [Coreg -] 25 mg PO BID #60 tablet 05/19/18 Duloxetine HCl [Cymbalta] 20 mg PO BID #60 capsule. 05/19/18 Insulin Aspart [Novolog Flexpen] 100 unit SQ AC #1 insuln.pen 05/19/18 Insulin Detemir [Levemir Flextouch] 18 unit SQ AM #1 insuln.pen 05/19/18 Magnesium Oxide [Mag-Ox -] 400 mg PO BID tablet 05/19/18 Mycophenolate Sodium [Mycophenolic Acid] 360 mg PO BID #60 tablet. 05/19/18 Pen Needle, Diabetic [Pen Needle] 1 each ACHS #100 dis.needle 05/19/18 Tacrolimus 1 mg PO BID #60 capsule 05/19/18 Tamsulosin HCl [Flomax] 0.4 mg PO HS #30 cap.er.24h 05/19/18 hydrALAZINE HCL [Apresoline -] 25 mg PO BID #60 tablet 05/19/18 predniSONE [Deltasone -] 5 mg PO DAILY #30 tablet 05/19/18 Review of Systems Unable to obtain ROS, reason: intubated Nephrology Consult - Height Height: 5 ft 7 in - Weight Weight: 115 lb - BMI Body Mass Index (BMI): 18.0 - Lab Results CBC,BMP: CBC, BMP 05/21/18 05:40 05/21/18 05:40 Anion Gap: Anion Gap Anion Gap 8 (8-16) 05/21/18 05:40 - Imaging Chest X-ray: Report Reviewed (congestive changes) - Physical Examination Vital Signs: Vital Signs Temperature 102.0 F H 05/21/18 06:20 Pulse Rate 80 05/21/18 12:44 Respiratory Rate 15 05/21/18 12:44 Blood Pressure 119/35 05/21/18 12:44 O2 Sat by Pulse Oximetry (%) 100 05/21/18 12:44 Constitutional: Yes: Well Nourished, No Distress, Other (intubated) Eyes: Yes: Conjunctiva Clear HENT: Yes: Atraumatic, Normocephalic Neck: Yes: Supple, Trachea Midline Cardiovascular: Yes: Regular Rate and Rhythm, Murmur Respiratory: Yes: Regular, Other (clear anteriorly) Gastrointestinal: Yes: Normal Bowel Sounds, Soft Renal/: Yes: Rodriguez Present Access for Hemodialysis: AV Fistula Musculoskeletal: Yes: WNL Edema: No Integumentary: Yes: WNL Neurological: Yes: Other (intubated, withdraws, resists eye opening) Assessment/Plan IMPRESSION Shock is unclear if its septic or hypovolemic hypoglycemia may suggest adrenal insufficiency- note he is on prednisone h/o renal transplant hypotension may cause renal function to worsen PLAN when stable would scan head would give stress doses of steroids continue tacrolimus and check level if not done recently monitor kidney function would dc rodriguez as soon as possible follow cultures MV
[2018-05-21] MEDS ORDERED: PIPERACILLIN/TAZOB 3.375 GM 3.375 GM/50 ML BAG IVPB ONE (13:22)
--- NOTE | 2018-05-21 13:33 | CONSULT ---
Consult - text type - Consultation Consultation Note: PULM/CCM Pt seen and examined in ED CC: resp failure, hypoglycemia, vasodilatory shock HPI: 78 yo M well know to this institution with history of Renal transplant (on immunosuppression; '09), DM, and prior cardio/pulm arrests 2/2 hypoglycemia and resp failure, and recent admission with DVT found in LLE (started on elqiuis) who presented to ED via EMS for hypoglycemia and respiratory failure. Pt found at home to be have BGL of 20 and was obtunded. EMS arrived, pt with pulse, in resp distress, gave IV d50 but without good response, RSI performed at pt intubated. In ED pt required vasopressor, Sterile TLC place in R fem, levo at 20. Started on Broad spectrum abx by ID, knows him well. Now being transferred to ICU for further care. Past Medical History Cardio/Vascular CAD,CHF,HTN,[place],Other Renal/ Other (S/P Kidney tranplant 2008. 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 coli in past, osteomyelitis of his finger),MRSA,Other Endocrine Diabetes Mellitus Past Surgical History Past Surgical History AV Fistula/Graft (right upper arm, non working) , CABG (right 2008),Kidney Transplant Smoking History Smoking history Never smoked Aproximately how many 0 cigarettes per day Alcohol/Substance Use Hx Alcohol Use No History of Substance Use None Social History Usual Living Arrangement Alone ADL Support Services History of Recent Travel No Ambulatory Orders Acetaminophen [Tylenol .Regular Strength -] 650 mg PO Q4H PRN tablet 11/29/17 Albuterol 2.5/Ipratropium 0.5 [Duoneb -] 1 amp NEB QID 02/08/18 Amlodipine Besylate [Norvasc -] 10 mg PO DAILY #30 tablet 05/19/18 Apixaban [Eliquis] 5 mg PO BID #60 tablet 05/19/18 Aspirin [Jena Chewable Aspirin] 81 mg PO HS #30 tab.chew 05/19/18 Atorvastatin Ca [Lipitor] 80 mg PO HS #60 tablet 05/19/18 Carvedilol [Coreg -] 25 mg PO BID #60 tablet 05/19/18 Duloxetine HCl [Cymbalta] 20 mg PO BID #60 capsule. 05/19/18 Insulin Aspart [Novolog Flexpen] 100 unit SQ AC #1 insuln.pen 05/19/18 Insulin Detemir [Levemir Flextouch] 18 unit SQ AM #1 insuln.pen 05/19/18 Magnesium Oxide [Mag-Ox -] 400 mg PO BID tablet 05/19/18 Mycophenolate Sodium [Mycophenolic Acid] 360 mg PO BID #60 tablet. 05/19/18 Pen Needle, Diabetic [Pen Needle] 1 each [facility] #100 dis.needle 05/19/18 Tacrolimus 1 mg PO BID #60 capsule 05/19/18 Tamsulosin HCl [Flomax] 0.4 mg PO HS #30 cap.er.24h 05/19/18 hydrALAZINE HCL [Apresoline -] 25 mg PO BID #60 tablet 05/19/18 predniSONE [Deltasone -] 5 mg PO DAILY #30 tablet 05/19/18 Active Medications Acetaminophen (Ofirmev Injection -) 1,000 mg IVPB Q6H PRN PRN Reason: FEVER Chlorhexidine Gluconate (Hibiclens For Decolonization -) 1 applic TP HS [facility] Last Admin: 05/20/18 23:26 Dose: Not Given Enoxaparin Sodium (Lovenox -) 70 mg SQ Q12H [facility] Norepinephrine Bitartrate 8, (000 mcg/ Sodium Chloride) 1,000 mls @ 37.5 mls/ hr IV TITR [facility]; Protocol Last Titration: 05/21/18 11:51 Dose: 10 mcg/min, 75 mls/hr Dopamine HCl/Dextrose (Dopamine 400 Mg/D5w -) 400,000 mcg in 250 mls @ 39.122 mls/hr IVPB TITR [facility]; Protocol Last Titration: 05/20/18 22:40 Dose: 10 mcg/kg/min, 19.561 mls/hr Piperacillin Sod/Tazobactam (Sod 3.375 gm/ Dextrose) 50 mls @ 100 mls/hr IVPB Q8H-IV [facility]; Protocol Insulin Aspart (Novolog Vial Sliding Scale -) 1 vial SQ ACHS [facility]; Protocol Last Admin: 05/21/18 12:01 Dose: 2 units Mupirocin (Bactroban Ointment (For Decolonization) -) 1 applic NS BID [facility] Stop: 05/25/18 21:59 Last Admin: 05/20/18 23:25 Dose: Not Given Prednisone (Deltasone -) 5 mg PO DAILY [facility] Last Admin: 05/21/18 10:00 Dose: Not Given Tacrolimus (Prograf) 1 mg PO BID [facility] Last Admin: 05/21/18 10:00 Dose: Not Given Vancomycin HCl (Vancomycin Oral Solution) 125 mg PO Q6HPO [facility] Vital Signs Temp 102.0 F H 05/21/18 06:20 Pulse 80 05/21/18 12:44 Resp 15 05/21/18 12:44 BP 119/35 05/21/18 12:44 Pulse Ox 100 05/21/18 12:44 Intake & Output 05/20/18 05/21/18 05/21/18 23:59 11:59 23:59 Intake Total 3350 Output Total 1000 Balance 3350 -1000 Weight 52.163 kg 52.163 kg Intake: IV 3000 D5-Ns - 1,000 ml @ 1000 1000 mls/hr IV ONCE ONE Rx#: [id number] Normal Saline - 2,000 ml 2000 @ 1000 mls/hr IV ASDIR ONE Rx#:[id number] IVPB 350 Output: Urine 1000 [place]ahan 1000 Other: Height 5 ft 7 in 5 ft 7 in Body Mass Index (BMI) 18.0 18.0 EKG reviewed, non ischemic CXR; ETT in position, no dense infiltrate PE: Gen: intubated sedated, otherwise non toxic appearing HEENT: PERRL, R sclera injected, orally intubated PULM; Clear anterior, no wheezes, no secretions on my suction CV: Hr 78, rrr, no murmur appreciated ABD; distended, typanic, + BS EXT: Asymetrical edema Neuro: withdrawals / 78 y/o immunocompromised pt with resp failure , shock P/ -Vent support -broad spectrum abx as per ID -stress dose steroids unless quickly weaned off pressors -cont tacro, low threshold to hold if worsening shock state -glycemic control, would shoot for higher goal given repeated hypoglyecemic events -transition to IV hep gtt while critically ill Abby ACNP [id number]
--- NOTE | 2018-05-21 14:19 | PN ---
Progress Note (short form) - Note Progress Note: ID consult dictated Just discharged was well at home found by family unresponsive-bs 20s ems-hypoglycemia, intubated in the field afebrile on admission now febrile and hypotensive sepsis with hypoglycemia respiratory failure immunocompromised host-renal transplant recent DVT recent cdiff ?aspiration vanco/meropenem (multiple recent admits) po vancomycin isolation (recent cdiff) history of MRSA/esbl ecoli in the distant past no clear infiltrate on xray UA negative over 45 minutes spent in the care of this critically ill ICU patient Problem List - Problems (1) Sepsis Code(s): A41.9 - SEPSIS, UNSPECIFIED ORGANISM (2) H/O kidney transplant Code(s): Z94.0 - KIDNEY TRANSPLANT STATUS (3) Immunocompromised patient Code(s): D84.9 - IMMUNODEFICIENCY, UNSPECIFIED (4) IDDM (insulin dependent diabetes mellitus) Code(s): E11.9 - TYPE 2 DIABETES MELLITUS WITHOUT COMPLICATIONS; Z79.4 - GROUP HOME (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 OF INSULIN
--- NOTE | 2018-05-21 15:24 | CONS ---
DATE OF CONSULTATION: DATE OF DICTATION: 05/21/2018 REQUESTED BY: Nury Eid MD The patient was seen in the emergency room. This is a 78-year-old man who was just discharged on the 19 of May. He had an admission from the to the for worsening lower extremity edema. He has a past medical history of diabetes, coronary artery disease, renal transplant, recent Clostridium difficile colitis, and left lower extremity DVT. He was originally hospitalized April 29 to May 04 for colitis had improved. He was discharged on oral vancomycin. He then went to a SNF and went home. He was re-admitted on the with lower extremity edema and reports a diarrhea which was not substantiated on the admission. I saw him that admission and he did not have any diarrhea in the hospital. He had a repeat C difficile that was toxin negative but antigen positive. He was discharged home on the and he was brought back to the emergency room on the , after he was found unresponsive at home. EMS was called. He was found to have a blood sugar of 20. Apparently prior to this, he was fine, he had no reported complaints. Per EMS, the patient was found with a blood glucose in the low 20s. He was given D50, with no apparent improvement. They felt he was in respiratory distress and he was intubated in the field. After coming to the emergency room, he was noted to be hypotensive and he was started on Levophed. He received vancomycin and Zosyn. I am asked to see him for further evaluation. He is currently sedated on the vent. His chest x-ray shows possibly some bibasilar atelectasis but otherwise no gross infiltrates. His past medical history is notable for coronary artery disease. He has a history of diabetes, congestive heart failure, hypertension, [place], history of C difficile, MRSA. He has had osteomyelitis of his finger. Surgical history is notable for AV graft of right upper arm. He has had a CABG and a kidney transplant. As well, he had a prior cardiopulmonary arrest due to hypoglycemia and he had respiratory failure, requiring intubation in the past. He had a DVT in his left lower extremity and is on Eliquis. SOCIAL HISTORY: He lives with his family. He does not smoke. There is no history of any substance use. His medications at home include acetaminophen, albuterol, amlodipine, Eliquis, aspirin, atorvastatin, Coreg, Cymbalta, insulin, magnesium oxide, mycophenolate, tacrolimus, tamsulosin, hydralazine, prednisone. PHYSICAL EXAMINATION: GENERAL: He is currently intubated and sedated. VITAL SIGNS: He spiked a fever of 102 this morning. On arrival to the emergency room, he had no fever, temperature was 95.5. Currently his pulse is 80, blood pressure 119/35, respiratory rate 15, he is being mechanically ventilated. His FiO2 is 50% and he is saturating 100%. HEENT: He is normocephalic. His eyes are anicteric. Neck: Supple. Lungs: Diminished breath sounds at the bases. Heart: Regular rate and rhythm. Abdomen: Soft, nontender. Extremities: He has bilateral edema of both his legs. His right leg is larger than his left. White count on admission was 9.4, this morning is 15.4, hemoglobin 11.4, platelets 264. BUN 20, creatinine 1.4. LFTs are normal. CK is 29, troponin is 0.09. Urinalysis has 1 white cell. Blood cultures and urine cultures are pending. Chest x-ray, as stated, is unrevealing. In summary, this is a 78-year-old man admitted with respiratory failure, hypoglycemia, unclear source. Immunocompormised host due to renal transplant and transplant meds but given acuity of illness most likely bacterial if infection or secondary to hypoglycemia- ?iatrogenic He remains intubated on Levophed. He was started on vancomycin and Zosyn. I would escalate to meropenem and vancomycin- multiple recent admissions at risk for MDRO-. Would also continue oral vancomycin, as his C difficile treatment was very recent. Further recommendations to follow based on his clinical course. over 45 minutes spent on the care of this critically ill ICU patient LOIS NAIK M.D. [id number] YOLANDA
--- NOTE | 2018-05-21 15:40 | CON.CARD ---
Consult Consult Specialty:: Cardiology - History of Present Illness Chief Complaint: Found unresponsive History of Present Illness: This is a 78 year old male with a PMH of IDDM, HTN, HLD, PAD, CAD s/p AL, s/p CABG, CHF, s/p Renal Transplant in 2008 (on immunosuppressants), and mild aortic stenosis. The patient was admitted for the past 5 days for c-diff, AMS, and LLE DVTand discharged home . He was found unresponsive and family activated EMS. Per EMS, the patient was found with blood glucose in the low 20s. He was given D50 with no apparent improvement. In the field, patient was intubated. In the ED he was placed on LEVOPHED 10 mics. Now in the ICU he is down to 2 mics of LEVOPHED. He is sleepy but responsive to verbal commands at this time. - Past Medical History Cardio/Vascular: Yes: CAD, CHF, HTN, AL, Other Renal/: Yes: Other (S/P Kidney tranplant 2008. 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 coli in past, osteomyelitis of his finger) Endocrine: Yes: Diabetes Mellitus - Past Surgical History Past Surgical History: Yes: AV Fistula/Graft (right upper arm, non working), CABG, Kidney Transplant (right 2008) - Alcohol/Substance Use Hx Alcohol Use: No History of Substance Use: reports: None - Smoking History Smoking history: Never smoked Have you smoked in the past 12 months: No Aproximately how many cigarettes per day: 0 - Social History Usual Living Arrangement: Alone ADL: Support Services History of Recent Travel: No Home Medications - Allergies Allergies/Adverse Reactions: Allergies Allergy/AdvReac Type Severity Reaction Status Date / Time No Known Drug Allergies Allergy Verified 05/20/18 18:32 - Home Medications Home Medications: Ambulatory Orders Acetaminophen [Tylenol .Regular Strength -] 650 mg PO Q4H PRN tablet 11/29/17 Albuterol 2.5/Ipratropium 0.5 [Duoneb -] 1 amp NEB QID 02/08/18 Amlodipine Besylate [Norvasc -] 10 mg PO DAILY #30 tablet 05/19/18 Apixaban [Eliquis] 5 mg PO BID #60 tablet 05/19/18 Aspirin [Jena Chewable Aspirin] 81 mg PO HS #30 tab.chew 05/19/18 Atorvastatin Ca [Lipitor] 80 mg PO HS #60 tablet 05/19/18 Carvedilol [Coreg -] 25 mg PO BID #60 tablet 05/19/18 Duloxetine HCl [Cymbalta] 20 mg PO BID #60 capsule. 05/19/18 Insulin Aspart [Novolog Flexpen] 100 unit SQ AC #1 insuln.pen 05/19/18 Insulin Detemir [Levemir Flextouch] 18 unit SQ AM #1 insuln.pen 05/19/18 Magnesium Oxide [Mag-Ox -] 400 mg PO BID tablet 05/19/18 Mycophenolate Sodium [Mycophenolic Acid] 360 mg PO BID #60 tablet. 05/19/18 Pen Needle, Diabetic [Pen Needle] 1 each ACHS #100 dis.needle 05/19/18 Tacrolimus 1 mg PO BID #60 capsule 05/19/18 Tamsulosin HCl [Flomax] 0.4 mg PO HS #30 cap.er.24h 05/19/18 hydrALAZINE HCL [Apresoline -] 25 mg PO BID #60 tablet 05/19/18 predniSONE [Deltasone -] 5 mg PO DAILY #30 tablet 05/19/18 Review of Systems Findings/Remarks: Ass per HPI Vital Signs: Vital Signs Temperature 98.5 F 05/21/18 15:23 Pulse Rate 80 05/21/18 15:23 Respiratory Rate 16 05/21/18 15:23 Blood Pressure 114/55 05/21/18 15:23 O2 Sat by Pulse Oximetry (%) 100 05/21/18 12:44 Constitutional: Yes: No Distress (Intubated, sedated but follow verbal commands) HENT: Yes: WNL Neck: Yes: WNL Respiratory: Yes: CTA Bilaterally Gastrointestinal: Yes: Normal Bowel Sounds Cardiovascular: Yes: Regular Rate and Rhythm (S1S2 no MRHG) JVD: No Extremities: Yes: WNL Edema: LLE: Trace, RLE: Trace Neurological: Yes: Other (Sedated but moves extremities on command) - Other Data Labs, Other Data: CBC, BMP 05/21/18 05:40 05/21/18 05:40 INR, PTT INR 1.17 (0.82-1.09) H 05/20/18 18:34 Troponin, BNP 05/20/18 05/20/18 05/21/18 18:34 23:10 11:00 Troponin I 0.02 0.09 H D B-Natriuretic Peptide 2479.63 H Troponin, BNP 05/20/18 05/20/18 05/21/18 18:34 23:10 11:00 Troponin I 0.02 0.09 H D B-Natriuretic Peptide 2479.63 H Assessment/Plan 78 year old male with a PMH of IDDM, HTN, HLD, PAD, CAD s/p AL, s/p CABG, CHF, s /p Renal Transplant in 2008 (on immunosuppressants), and mild aortic stenosis. The patient was admitted for the past 5 days for c-diff, AMS, and LLE DVTand discharged home . He was found unresponsive and family activated EMS. Per EMS, the patient was found with blood glucose in the low 20s. He was given D50 with no apparent improvement. In the field, patient was intubated. In the ED he was placed on LEVOPHED 10 mics. Now in the ICU he is down to 2 mics of LEVOPHED. He is sleepy but responsive to verbal commands at this time. Continue to wean off LEVOPHED as tolerated Continue Apixaban 5 mg PO BID and ASA Consider ruling out a PE (unlikely on AC but possible) Hold Norvasc When off LEVOPHED, restart Carvedilol [Coreg -] 25 mg PO BID
[2018-05-21] MEDS: HYDROCORTISONE SOD SUCCINATE 100 MG/2 ML VIAL IVPB SCH ×2 (15:55→16:13)
[2018-05-21] MEDS: VANCOMYCIN 1 GM PREMIX - 1 GM/200 ML BAG IVPB SCH (16:06)
[2018-05-21] MEDS: MEROPENEM 1 GM in DEXTROSE 5%-WATER 100 ML IVPB SCH ×2 (16:19→18:01)
[2018-05-21] MEDS: VANCOMYCIN 250 MG/5 ML ORAL SOLUTION PO SCH (18:01)
[2018-05-21] MEDS: MUPIROCIN 2% TOPICAL OINTMENT FOR DECOLONIZATION NS SCH ×2 (18:02→23:44)
[2018-05-21] MEDS: NOREPINEPHRINE BITARTRATE 8,000 MCG in SODIUM CHLORIDE 0.45% 992 ML IV SCH (19:08)
[2018-05-21] MEDS ORDERED: PT OWN MED DRAWER 7, Y5N ONE (20:30)
[2018-05-21] MEDS ORDERED: PROPOFOL 1,000,000 MCG/100 ML VIAL IVPB SCH (21:30)
[2018-05-21] MEDS ORDERED: AMINO ACIDS 4.25%/D5W 1,000 ML IV SCH (21:45)
[2018-05-21] MEDS: CHLORHEXIDINE GLUCONATE 4% CLEANSER FOR DECOLONIZATION TP SCH (23:44)
[2018-05-21] MEDS: ENOXAPARIN NA (PORCINE) 80 MG/0.8 ML DISP.SYRIN SQ SCH (23:52)
[2018-05-22] MEDS: VANCOMYCIN 250 MG/5 ML ORAL SOLUTION PO SCH ×5 (00:01→17:06)
[2018-05-22] MEDS: INSULIN SLIDING SCALE (NOVOLOG) 1 VIAL SQ SCH ×5 (00:06→22:44)
--- NOTE | 2018-05-22 00:18 | CONSULT ---
Consult Consult Specialty:: endocrine Referred by:: dr.[email or web address] jackson Reason for Consultation:: diabetes mellitus - History of Present Illness Chief Complaint: intubated sp respiratory failure History of Present Illness: 78 y/o man PMH of IDDM, HTN, PAD, CAD s/p [place], s/p CABG, CHF, s/p Renal Transplant (on immunosuppressants), Dialysis (stopped 2008, non working RUE) brought in by EMS unresponsive. The patient was admitted to the hospital 5 days ago for c-diff, AMS, and LLE DVT. Patient was discharged home yesterday. He was found unresponsive and family activated EMS. Per EMS, the patient was found with blood glucose 20mg/dl,intubated and iv fluids given for hypotension and hypoglycemia persistant. - Past Medical History Cardio/Vascular: Yes: CAD, CHF, HTN, RI, Other Renal/: Yes: Other (S/P Kidney tranplant 2008. 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 coli in past, osteomyelitis of his finger) Endocrine: Yes: Diabetes Mellitus - Past Surgical History Past Surgical History: Yes: AV Fistula/Graft (right upper arm, non working), CABG, Kidney Transplant (right 2008) - Alcohol/Substance Use Hx Alcohol Use: No History of Substance Use: reports: None - Smoking History Smoking history: Never smoked Have you smoked in the past 12 months: No Aproximately how many cigarettes per day: 0 - Social History Usual Living Arrangement: Alone ADL: Support Services History of Recent Travel: No Home Medications - Allergies Allergies/Adverse Reactions: Allergies Allergy/AdvReac Type Severity Reaction Status Date / Time No Known Drug Allergies Allergy Verified 05/20/18 18:32 - Home Medications Home Medications: Ambulatory Orders Acetaminophen [Tylenol .Regular Strength -] 650 mg PO Q4H PRN tablet 11/29/17 Albuterol 2.5/Ipratropium 0.5 [Duoneb -] 1 amp NEB QID 02/08/18 Amlodipine Besylate [Norvasc -] 10 mg PO DAILY #30 tablet 05/19/18 Apixaban [Eliquis] 5 mg PO BID #60 tablet 05/19/18 Aspirin [Jena Chewable Aspirin] 81 mg PO HS #30 tab.chew 05/19/18 Atorvastatin Ca [Lipitor] 80 mg PO HS #60 tablet 05/19/18 Carvedilol [Coreg -] 25 mg PO BID #60 tablet 05/19/18 Duloxetine HCl [Cymbalta] 20 mg PO BID #60 capsule. 05/19/18 Insulin Aspart [Novolog Flexpen] 100 unit SQ AC #1 insuln.pen 05/19/18 Insulin Detemir [Levemir Flextouch] 18 unit SQ AM #1 insuln.pen 05/19/18 Magnesium Oxide [Mag-Ox -] 400 mg PO BID tablet 05/19/18 Mycophenolate Sodium [Mycophenolic Acid] 360 mg PO BID #60 tablet. 05/19/18 Pen Needle, Diabetic [Pen Needle] 1 each ACHS #100 dis.needle 05/19/18 Tacrolimus 1 mg PO BID #60 capsule 05/19/18 Tamsulosin HCl [Flomax] 0.4 mg PO HS #30 cap.er.24h 05/19/18 hydrALAZINE HCL [Apresoline -] 25 mg PO BID #60 tablet 05/19/18 predniSONE [Deltasone -] 5 mg PO DAILY #30 tablet 05/19/18 Physical Exam Vital Signs: Vital Signs Temperature 98.4 F 05/21/18 17:00 Pulse Rate 82 05/21/18 21:00 Respiratory Rate 16 05/21/18 23:19 Blood Pressure 95/35 05/21/18 21:00 O2 Sat by Pulse Oximetry (%) 100 05/21/18 12:44 Constitutional: Yes: Calm Eyes: Yes: EOM Intact HENT: Yes: Normocephalic Neck: Yes: Trachea Midline Cardiovascular: Yes: Regular Rate and Rhythm Respiratory: Yes: Rales Gastrointestinal: Yes: Soft ...Rectal Exam: Yes: Deferred Renal/: Yes: WNL Edema: Yes Edema: LLE: Trace, RLE: Trace Neurological: Yes: Alert, Weakness Labs: CBC, BMP 05/21/18 05:40 05/21/18 05:40 Problem List - Problems (1) Collapse Code(s): R55 - SYNCOPE AND COLLAPSE (2) Hypoglycemia Code(s): E16.2 - HYPOGLYCEMIA, UNSPECIFIED (3) Hypotension Code(s): I95.9 - HYPOTENSION, UNSPECIFIED Qualifiers: Hypotension type: unspecified hypotension type Qualified Code(s): I95.9 - Hypotension, unspecified (4) Shock Code(s): R57.9 - SHOCK, UNSPECIFIED (5) IDDM (insulin dependent diabetes mellitus) Code(s): E11.9 - TYPE 2 DIABETES MELLITUS WITHOUT COMPLICATIONS; Z79.4 - MCFP (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 OF INSULIN (6) CHUCK (acute kidney injury) Code(s): N17.9 - ACUTE KIDNEY FAILURE, UNSPECIFIED (7) Acute respiratory failure Code(s): J96.00 - ACUTE RESPIRATORY FAILURE, UNSP W HYPOXIA OR HYPERCAPNIA Assessment/Plan Current Active Problems Collapse (Acute) Hypoglycemia (Acute) Hypotension (Acute) Sepsis (Acute) Shock (Acute) IDDM (insulin dependent diabetes mellitus) (Chronic) Abnormal Lab Results 05/21/18 05/21/18 05/21/18 03:49 05:40 05:40 WBC 15.4 H RBC 3.94 L Hgb 11.4 L Hct 34.6 L RDW 16.0 H Sodium 133 L 134 L BUN 21 H 20 H Creatinine 1.4 H 1.4 H Random Glucose 285 H D 258 H Calcium 7.6 L 7.7 L Phosphorus 2.4 L Magnesium 1.4 L Creatine Kinase Troponin I Total Protein 4.9 L Albumin 2.7 L 05/21/18 11:00 WBC RBC Hgb Hct RDW Sodium BUN Creatinine Random Glucose Calcium Phosphorus Magnesium Creatine Kinase 29 L Troponin I 0.09 H D Total Protein Albumin Laboratory Results - last 24 hr 05/20/18 05/21/18 05/21/18 19:33 03:49 05:40 WBC 15.4 H RBC 3.94 L Hgb 11.4 L Hct 34.6 L MCV 87.9 MCH 28.9 MCHC 32.9 RDW 16.0 H Plt Count 265 MPV 7.5 Sodium 133 L Potassium 4.6 Chloride 100 Carbon Dioxide 25 Anion Gap 8 BUN 21 H Creatinine 1.4 H Creat Clearance w eGFR 49.27 POC Glucometer 325.25191 Random Glucose 285 H D Calcium 7.6 L Phosphorus Magnesium Total Bilirubin AST ALT Alkaline Phosphatase Creatine Kinase Troponin I Total Protein Albumin 05/21/18 05/21/18 05:40 11:00 WBC RBC Hgb Hct MCV MCH MCHC RDW Plt Count MPV Sodium 134 L Potassium 4.7 Chloride 103 Carbon Dioxide 23 Anion Gap 8 BUN 20 H Creatinine 1.4 H Creat Clearance w eGFR 49.27 POC Glucometer Random Glucose 258 H Calcium 7.7 L Phosphorus 2.4 L Magnesium 1.4 L Total Bilirubin 0.5 AST 15 D ALT 22 Alkaline Phosphatase 72 Creatine Kinase 29 L Troponin I 0.09 H D Total Protein 4.9 L Albumin 2.7 L plan: iv [id number] insulin bgm qid novolog doses respiratory support iv antibiotic iv pressors
[2018-05-22] MEDS: DOPAMINE 400 MG/D5W - 400,000 MCG/250 ML INFUS.BAG IVPB SCH (03:41)
[2018-05-22] MEDS: TACROLIMUS ANHYDROUS 1 MG CAPSULE PO SCH ×3 (03:42→22:43)
[2018-05-22] MEDS ORDERED: PT OWN MED DRAWER 7, Y5N ONE ×5 (03:45→22:21)
[2018-05-22] MEDS: MEROPENEM 1 GM in DEXTROSE 5%-WATER 100 ML IVPB SCH ×3 (03:49→17:05)
[2018-05-22] MEDS: HYDROCORTISONE SOD SUCCINATE 100 MG/2 ML VIAL IVPB SCH ×4 (06:00→22:43)
--- NOTE | 2018-05-22 07:30 | PN ---
Progress Note, Physician Chief Complaint: ID Vancomycin and Meropenem & oral vancomycin Intubated Microbiology 05/20/18 21:39 Blood - Peripheral Venous Blood Culture - Preliminary NO GROWTH OBTAINED AFTER 24 HOURS, INCUBATION TO CONTINUE FOR 4 DAYS. 05/20/18 21:39 Blood - Peripheral Venous Blood Culture - Preliminary NO GROWTH OBTAINED AFTER 24 HOURS, INCUBATION TO CONTINUE FOR 4 DAYS. Laboratory Tests 05/21/18 05/21/18 05:40 05:40 WBC 15.4 H Hgb 11.4 L Plt Count 265 BUN 20 H Creatinine 1.4 H Creat Clearance w eGFR 49.27 - Current Medication List Current Medications: Active Medications Acetaminophen (Ofirmev Injection -) 1,000 mg IVPB Q6H PRN PRN Reason: FEVER Chlorhexidine Gluconate (Hibiclens For Decolonization -) 1 applic TP HS [facility] Last Admin: 05/21/18 23:44 Dose: 1 applic Enoxaparin Sodium (Lovenox -) 70 mg SQ BID [facility] Last Admin: 05/21/18 23:52 Dose: 70 mg Hydrocortisone Sodium Succinate (Solu-Cortef -) 100 mg IVPB TID [facility] Last Admin: 05/22/18 06:00 Dose: 100 mg Norepinephrine Bitartrate 8, (000 mcg/ Sodium Chloride) 1,000 mls @ 37.5 mls/ hr IV TITR [facility]; Protocol Last Admin: 05/21/18 19:08 Dose: Not Given Dopamine HCl/Dextrose (Dopamine 400 Mg/D5w -) 400,000 mcg in 250 mls @ 39.122 mls/hr IVPB TITR [facility]; Protocol Last Admin: 05/22/18 03:41 Dose: Not Given Vancomycin HCl (Vancomycin 1 Gm Premix -) 1 gm in 200 mls @ 200 mls/hr IVPB Q24H [facility]; Protocol Last Admin: 05/21/18 16:06 Dose: 200 mls/hr Meropenem 1 gm/ Dextrose 100 mls @ 200 mls/hr IVPB Q8H-IV [facility] Last Admin: 05/22/18 03:49 Dose: 200 mls/hr Propofol (Diprivan -) 1,000,000 mcg in 100 mls @ 2.331 mls/hr IVPB TITR [facility]; Protocol Last Admin: 05/21/18 23:41 Dose: 5 mcg/kg/min, 2.331 mls/hr Amino Acids (Clinimix -) 1,000 mls @ 42 mls/hr IV Q24H [facility] Last Admin: 05/21/18 23:42 Dose: 42 mls/hr Insulin Aspart (Novolog Vial Sliding Scale -) 1 vial SQ ACHS [facility]; Protocol Last Admin: 05/22/18 06:01 Dose: 4 units Mupirocin (Bactroban Ointment (For Decolonization) -) 1 applic NS BID [facility] Stop: 05/25/18 21:59 Last Admin: 05/21/18 23:44 Dose: 1 applic Tacrolimus (Prograf) 1 mg PO BID [facility] Last Admin: 05/22/18 03:42 Dose: Not Given Vancomycin HCl (Vancomycin Oral Solution) 125 mg PO Q6HPO [facility] Last Admin: 05/22/18 06:01 Dose: Not Given - Objective Vital Signs: Vital Signs Temperature 98.2 F 05/22/18 02:00 Pulse Rate 72 05/22/18 06:00 Respiratory Rate 14 05/22/18 06:00 Blood Pressure 118/40 05/22/18 06:00 O2 Sat by Pulse Oximetry (%) 99 05/22/18 04:44 Labs: CBC, BMP 05/21/18 05:40 05/21/18 05:40 INR, PTT INR 1.17 (0.82-1.09) H 05/20/18 18:34 Assessment/Plan Assessment Respiratory failure Hypotension on pressors Hypoglycemia History of renal transplant/ Immunocompromised host Recent C diff infection Plan MRSA screening nares Continue empiric antibiotics for now pending final cultures Erika SILVA
--- NOTE | 2018-05-22 08:02 | PN ---
Progress Note, Physician - Current Medication List Current Medications: Active Medications Acetaminophen (Ofirmev Injection -) 1,000 mg IVPB Q6H PRN PRN Reason: FEVER Chlorhexidine Gluconate (Hibiclens For Decolonization -) 1 applic TP HS [facility] Last Admin: 05/21/18 23:44 Dose: 1 applic Enoxaparin Sodium (Lovenox -) 70 mg SQ BID [facility] Last Admin: 05/21/18 23:52 Dose: 70 mg Hydrocortisone Sodium Succinate (Solu-Cortef -) 100 mg IVPB TID [facility] Last Admin: 05/22/18 06:00 Dose: 100 mg Norepinephrine Bitartrate 8, (000 mcg/ Sodium Chloride) 1,000 mls @ 37.5 mls/ hr IV TITR [facility]; Protocol Last Admin: 05/21/18 19:08 Dose: Not Given Dopamine HCl/Dextrose (Dopamine 400 Mg/D5w -) 400,000 mcg in 250 mls @ 39.122 mls/hr IVPB TITR [facility]; Protocol Last Admin: 05/22/18 03:41 Dose: Not Given Vancomycin HCl (Vancomycin 1 Gm Premix -) 1 gm in 200 mls @ 200 mls/hr IVPB Q24H [facility]; Protocol Last Admin: 05/21/18 16:06 Dose: 200 mls/hr Meropenem 1 gm/ Dextrose 100 mls @ 200 mls/hr IVPB Q8H-IV [facility] Last Admin: 05/22/18 03:49 Dose: 200 mls/hr Propofol (Diprivan -) 1,000,000 mcg in 100 mls @ 2.331 mls/hr IVPB TITR [facility]; Protocol Last Admin: 05/21/18 23:41 Dose: 5 mcg/kg/min, 2.331 mls/hr Amino Acids (Clinimix -) 1,000 mls @ 42 mls/hr IV Q24H [facility] Last Admin: 05/21/18 23:42 Dose: 42 mls/hr Insulin Aspart (Novolog Vial Sliding Scale -) 1 vial SQ ACHS [facility]; Protocol Last Admin: 05/22/18 06:01 Dose: 4 units Mupirocin (Bactroban Ointment (For Decolonization) -) 1 applic NS BID [facility] Stop: 05/25/18 21:59 Last Admin: 05/21/18 23:44 Dose: 1 applic Tacrolimus (Prograf) 1 mg PO BID [facility] Last Admin: 05/22/18 03:42 Dose: Not Given Vancomycin HCl (Vancomycin Oral Solution) 125 mg PO Q6HPO [facility] Last Admin: 05/22/18 06:01 Dose: Not Given - Objective Vital Signs: Vital Signs Temperature 98.2 F 05/22/18 02:00 Pulse Rate 72 05/22/18 06:00 Respiratory Rate 14 05/22/18 07:29 Blood Pressure 118/40 05/22/18 06:00 O2 Sat by Pulse Oximetry (%) 99 05/22/18 04:44 Cardiovascular: Yes: S1, S2 Respiratory: Yes: Diminished, Mechanically Ventilated, Rhonchi Gastrointestinal: Yes: Normal Bowel Sounds, Soft Labs: CBC, BMP 05/21/18 05:40 05/21/18 05:40 INR, PTT INR 1.17 (0.82-1.09) H 05/20/18 18:34 Problem List - Problems (1) Acute respiratory failure Assessment/Plan: -May have been due to hypoglycemia-aspiration--pna -monitor in icu -must rule out other etiologies -follow labs -pulm/cardio Code(s): J96.00 - ACUTE RESPIRATORY FAILURE, UNSP W HYPOXIA OR HYPERCAPNIA (2) Hypoglycemia Assessment/Plan: -Hold insulin -bgm -endo noted--clinimex Code(s): E16.2 - HYPOGLYCEMIA, UNSPECIFIED (3) Hypotension Assessment/Plan: -pressers -icu monitoring Code(s): I95.9 - HYPOTENSION, UNSPECIFIED Qualifiers: Hypotension type: unspecified hypotension type Qualified Code(s): I95.9 - Hypotension, unspecified (4) IDDM (insulin dependent diabetes mellitus) Assessment/Plan: -insulin Code(s): E11.9 - TYPE 2 DIABETES MELLITUS WITHOUT COMPLICATIONS; Z79.4 - EGG CASER (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 OF INSULIN (5) Sepsis Assessment/Plan: -Cultures -Iv abx -ID consult -IV Steroids Code(s): A41.9 - SEPSIS, UNSPECIFIED ORGANISM (6) Transplant recipient Assessment/Plan: steroid stress dosing since he has been on steroids prograf Code(s): Z94.89 - OTHER TRANSPLANTED ORGAN AND TISSUE STATUS
[2018-05-22] MEDS ORDERED: MAGNESIUM 2GM/50ML STERILE WATER IVPB IVPB ONE (08:21)
[2018-05-22] MEDS: ENOXAPARIN NA (PORCINE) 80 MG/0.8 ML DISP.SYRIN SQ SCH ×2 (10:37→22:39)
[2018-05-22] MEDS: MUPIROCIN 2% TOPICAL OINTMENT FOR DECOLONIZATION NS SCH ×2 (11:38→23:16)
--- NOTE | 2018-05-22 13:33 | PN ---
Progress Note, Physician Chief Complaint: Episode of unresponsiveness History of Present Illness: This is a 78 year old male with a PMH of IDDM, HTN, HLD, PAD, CAD s/p [place], s/p CABG, CHF, s/p Renal Transplant in 2008 (on immunosuppressants), and mild aortic stenosis. The patient was admitted for the past 5 days for c-diff, AMS, and LLE DVTand discharged home . He was found unresponsive and family activated EMS. Per EMS, the patient was found with blood glucose in the low 20s. He was given D50 with no apparent improvement. In the field, patient was intubated. In the ED he was placed on LEVOPHED 10 mics. 05/22/18 Now extubated. - Current Medication List Current Medications: Active Medications Acetaminophen (Ofirmev Injection -) 1,000 mg IVPB Q6H PRN PRN Reason: FEVER Chlorhexidine Gluconate (Hibiclens For Decolonization -) 1 applic TP HS [facility] Last Admin: 05/21/18 23:44 Dose: 1 applic Enoxaparin Sodium (Lovenox -) 70 mg SQ BID [facility] Last Admin: 05/22/18 10:37 Dose: 70 mg Hydrocortisone Sodium Succinate (Solu-Cortef -) 100 mg IVPB TID [facility] Last Admin: 05/22/18 06:00 Dose: 100 mg Norepinephrine Bitartrate 8, (000 mcg/ Sodium Chloride) 1,000 mls @ 37.5 mls/ hr IV TITR [facility]; Protocol Last Admin: 05/21/18 19:08 Dose: Not Given Vancomycin HCl (Vancomycin 1 Gm Premix -) 1 gm in 200 mls @ 200 mls/hr IVPB Q24H [facility]; Protocol Last Admin: 05/21/18 16:06 Dose: 200 mls/hr Meropenem 1 gm/ Dextrose 100 mls @ 200 mls/hr IVPB Q8H-IV [facility] Last Admin: 05/22/18 11:39 Dose: 200 mls/hr Propofol (Diprivan -) 1,000,000 mcg in 100 mls @ 2.331 mls/hr IVPB TITR [facility]; Protocol Last Titration: 05/22/18 08:31 Dose: 0 mcg/kg/min, 0 mls/hr Amino Acids (Clinimix -) 1,000 mls @ 42 mls/hr IV Q24H [facility] Last Admin: 05/21/18 23:42 Dose: 42 mls/hr Insulin Aspart (Novolog Vial Sliding Scale -) 1 vial SQ ACHS [facility]; Protocol Last Admin: 05/22/18 12:16 Dose: 4 units Mupirocin (Bactroban Ointment (For Decolonization) -) 1 applic NS BID [facility] Stop: 05/25/18 21:59 Last Admin: 05/22/18 11:38 Dose: 1 applic Tacrolimus (Prograf) 1 mg PO BID [facility] Last Admin: 05/22/18 12:23 Dose: 1 mg Vancomycin HCl (Vancomycin Oral Solution) 125 mg PO Q6HPO [facility] Last Admin: 05/22/18 12:16 Dose: 125 mg - Objective Vital Signs: Vital Signs Temperature 98.2 F 05/22/18 02:00 Pulse Rate 82 05/22/18 12:00 Respiratory Rate 78 H 05/22/18 12:00 Blood Pressure 121/45 05/22/18 12:00 O2 Sat by Pulse Oximetry (%) 99 05/22/18 04:44 Constitutional: Yes: No Distress HENT: Yes: WNL Neck: Yes: WNL Cardiovascular: Yes: Regular Rate and Rhythm (NL S1S2 No MRHG) Respiratory: Yes: CTA Bilaterally Gastrointestinal: Yes: Normal Bowel Sounds Edema: LLE: Trace, RLE: Trace Neurological: Yes: Other (Now extubated Sleepy) Labs: CBC, BMP 05/21/18 05:40 05/21/18 05:40 INR, PTT INR 1.17 (0.82-1.09) H 05/20/18 18:34 Assessment/Plan 78 year old male with a PMH of IDDM, HTN, HLD, PAD, CAD s/p [place], s/p CABG, CHF, s /p Renal Transplant in 2008 (on immunosuppressants), and mild aortic stenosis. The patient was admitted for the past 5 days for c-diff, AMS, and LLE DVTand discharged home . He was found unresponsive and family activated EMS. Per EMS, the patient was found with blood glucose in the low 20s. He was given D50 with no apparent improvement. In the field, patient was intubated. In the ED he was placed on LEVOPHED 10 mics. Now Extubated, Resting comfortably. Wean off pressors when able Hold off on medications Lovenox for AC for now Hold Norvasc When off pressors, restart Carvedilol Will follow with you
--- NOTE | 2018-05-22 13:58 | PN ---
Physical Exam: SUBJECTIVE: Patient seen and examined in icu. Pt was self extubated himself today. Pt was transitioned to nasal cannula and tolerated well. Pt was aaox3 and resting in bed comfortably when I observed him. Offered no complaints at time. OBJECTIVE: Vital Signs Temperature 98.2 F 05/22/18 02:00 Pulse Rate 82 05/22/18 12:00 Respiratory Rate 78 H 05/22/18 12:00 Blood Pressure 121/45 05/22/18 12:00 O2 Sat by Pulse Oximetry (%) 99 05/22/18 04:44 GENERAL: The patient is awake, alert, and fully oriented, in no acute distress. HEAD: Normal with no signs of trauma. EYES: extraocular movements intact, sclera anicteric, conjunctiva clear. No ptosis. ENT: Ears normal, nares patent, oropharynx clear without exudates, moist mucous membranes. NECK: Trachea midline, full range of motion, supple. LUNGS: Breath sounds equal, clear to auscultation bilaterally, no wheezes, no crackles, no accessory muscle use. HEART: Regular rate and rhythm, S1, S2 without murmur, rub or gallop. ABDOMEN: Soft, nontender, nondistended, normoactive bowel sounds, no guarding, no rebound, no hepatosplenomegaly, no masses. EXTREMITIES: 2+ pulses, warm, well-perfused, no edema. NEUROLOGICAL: Normal speech, gait not observed. PSYCH: Normal mood, normal affect. SKIN: Warm, dry, normal turgor, no rashes or lesions noted Laboratory Results - last 24 hr 05/21/18 11:58 POC Glucometer [id number] Active Medications Generic Name Dose Route Start Last Admin Trade Name Freq PRN Reason Stop Dose Admin Acetaminophen 1,000 mg 05/21/18 05:09 Ofirmev Injection - IVPB Q6H PRN FEVER Chlorhexidine Gluconate 1 applic 05/20/18 22:00 05/21/18 23:44 Hibiclens For Decolonization - TP 1 applic HS [facility]GO Administration Enoxaparin Sodium 70 mg 05/21/18 22:00 05/22/18 10:37 Lovenox - SQ 70 mg BID [facility] Administration Hydrocortisone Sodium Succinate 100 mg 05/21/18 14:00 05/22/18 06:00 Solu-Cortef - IVPB 100 mg TID [facility] Administration Norepinephrine Bitartrate 8, 1,000 mls @ 37.5 mls/hr 05/20/18 18:45 05/21/18 19:08 000 mcg/ Sodium Chloride IV Not Given TITR [facility] Protocol 5 MCG/MIN Vancomycin HCl 1 gm in 200 mls @ 200 mls/hr 05/21/18 15:00 05/21/18 16:06 Vancomycin 1 Gm Premix - IVPB 200 mls/hr Q24H [facility] Administration Protocol Meropenem 1 gm/ Dextrose 100 mls @ 200 mls/hr 05/21/18 14:15 05/22/18 11:39 IVPB 200 mls/hr Q8H-IV [facility] Administration Propofol 1,000,000 mcg in 100 mls @ 2.331 mls/hr 05/21/18 21:30 05/22/18 08: 31 Diprivan - IVPB 0 mcg/kg/min TITR [facility] 0 mls/hr Titration Protocol 5 MCG/KG/MIN Amino Acids 1,000 mls @ 42 mls/hr 05/21/18 21:45 05/21/18 23:42 Clinimix - IV 42 mls/hr Q24H [facility] Administration Insulin Aspart 1 vial 05/21/18 22:00 05/22/18 12:16 Novolog Vial Sliding Scale - SQ 4 units ACHS [facility] Administration Protocol Mupirocin 1 applic 05/20/18 22:00 05/22/18 11:38 Bactroban Ointment (For Decolonization) - NS 05/25/18 21:59 1 applic BID [facility] Administration Mycophenolate Sodium 360 mg 05/22/18 22:00 Mycophenolic Acid PO BID [facility] Tacrolimus 1 mg 05/20/18 22:00 05/22/18 12:23 Prograf PO 1 mg BID [facility] Administration Vancomycin HCl 125 mg 05/21/18 18:00 05/22/18 12:16 Vancomycin Oral Solution PO 125 mg Q6HPO [facility] Administration ASSESSMENT/PLAN: 78yo M with history of Renal transplant (on immunosuppression; '09), DM, and prior arrests noted with hypoglycemia and resp failure and DVT LLE. 1. Acute Hypoxic Resp Failure Pt self extubated today. Breathing on his own, no acute respiratory distress. Currently on 3 liters nasal cannula, maintain spO2 > 90. 2. Altered Mental Status 2/2 hypoglycemia. Resolved, currently aaox3. Glucose has not been in hypoglycemia range while in hospital. 3. H/o Renal Transplant Will monitor [facility] Nephrology on board Restarted mycophenolate C/w tacrolimus 1 mg po bid 4. Leukocytosis Recent h/o c diff, currently on vanco po 125 mg q6. ID on board, will c/w vanco and meropenem for empiric coverage. 5. H/o DVT Lovenox 70 mg po bid. 6. DM Insulin sliding scale ACHS bgm 7. FEN No fluids, monitor electrolytes, puree diet w/ nectar thick liquids. Dispo- continue to monitor in icu Visit type - Emergency Visit Emergency Visit: Yes ED Registration Date: 05/20/18 Care time: The patient presented to the Emergency Department on the above date and was hospitalized for further evaluation of their emergent condition. - New Patient This patient is new to me today: Yes Date on this admission: 05/22/18 - Critical Care Critical Care patient: Yes Total Critical Care Time (in minutes): 35 Critical Care Statement: The care of this patient involved high complexity decision making to prevent further life threatening deterioration of the patient 's condition and/or to evaluate & treat vital organ system(s) failure or risk of failure.
--- NOTE | 2018-05-22 15:37 | PN ---
Progress Note, Physician History of Present Illness: Pt seen and examined at bedside. He self extubated. He is awake and mental status seems to be at baseline. - Current Medication List Current Medications: Active Medications Acetaminophen (Ofirmev Injection -) 1,000 mg IVPB Q6H PRN PRN Reason: FEVER Chlorhexidine Gluconate (Hibiclens For Decolonization -) 1 applic TP HS [facility] Last Admin: 05/21/18 23:44 Dose: 1 applic Enoxaparin Sodium (Lovenox -) 70 mg SQ BID [facility] Last Admin: 05/22/18 10:37 Dose: 70 mg Hydrocortisone Sodium Succinate (Solu-Cortef -) 100 mg IVPB TID [facility] Last Admin: 05/22/18 15:01 Dose: 100 mg Vancomycin HCl (Vancomycin 1 Gm Premix -) 1 gm in 200 mls @ 200 mls/hr IVPB Q24H [facility]; Protocol Last Admin: 05/21/18 16:06 Dose: 200 mls/hr Meropenem 1 gm/ Dextrose 100 mls @ 200 mls/hr IVPB Q8H-IV [facility] Last Admin: 05/22/18 11:39 Dose: 200 mls/hr Amino Acids (Clinimix -) 1,000 mls @ 42 mls/hr IV Q24H [facility] Last Admin: 05/21/18 23:42 Dose: 42 mls/hr Insulin Aspart (Novolog Vial Sliding Scale -) 1 vial SQ ACHS [facility]; Protocol Last Admin: 05/22/18 12:16 Dose: 4 units Mupirocin (Bactroban Ointment (For Decolonization) -) 1 applic NS BID [facility] Stop: 05/25/18 21:59 Last Admin: 05/22/18 11:38 Dose: 1 applic Mycophenolate Sodium (Mycophenolic Acid) 360 mg PO BID [facility] Tacrolimus (Prograf) 1 mg PO BID [facility] Last Admin: 05/22/18 12:23 Dose: 1 mg Vancomycin HCl (Vancomycin Oral Solution) 125 mg PO Q6HPO [facility] Last Admin: 05/22/18 12:16 Dose: 125 mg - Objective Vital Signs: Vital Signs Temperature 98.6 F 05/22/18 14:00 Pulse Rate 84 05/22/18 14:00 Respiratory Rate 76 H 05/22/18 14:00 Blood Pressure 111/50 05/22/18 14:00 O2 Sat by Pulse Oximetry (%) 99 05/22/18 04:44 Constitutional: Yes: Calm Eyes: Yes: Conjunctiva Clear HENT: Yes: Atraumatic Neck: Yes: Supple Cardiovascular: Yes: S1, S2 Respiratory: Yes: CTA Bilaterally, On Nasal O2 Gastrointestinal: Yes: Soft Genitourinary: Yes: Other (graft soft and non tender) Musculoskeletal: Yes: WNL Edema: No Neurological: Yes: Confusion Labs: CBC, BMP 05/21/18 05:40 05/21/18 05:40 INR, PTT INR 1.17 (0.82-1.09) H 05/20/18 18:34 - ....Imaging Chest X-ray: Report Reviewed Problem List - Problems (1) Sepsis Code(s): A41.9 - SEPSIS, UNSPECIFIED ORGANISM (2) Transplant recipient Code(s): Z94.89 - OTHER TRANSPLANTED ORGAN AND TISSUE STATUS (3) IDDM (insulin dependent diabetes mellitus) Code(s): E11.9 - TYPE 2 DIABETES MELLITUS WITHOUT COMPLICATIONS; Z79.4 - [employer] (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 OF INSULIN Assessment/Plan Current Medications Generic Name Dose Route Start Last Admin Trade Name Freq PRN Reason Stop Dose Admin Acetaminophen 1,000 mg 05/21/18 05:09 Ofirmev Injection - IVPB Q6H PRN FEVER Chlorhexidine Gluconate 1 applic 05/20/18 22:00 05/21/18 23:44 Hibiclens For Decolonization - TP 1 applic HS [facility] Administration Enoxaparin Sodium 70 mg 05/21/18 22:00 05/22/18 10:37 Lovenox - SQ 70 mg BID [facility] Administration Hydrocortisone Sodium Succinate 100 mg 05/21/18 14:00 05/22/18 15:01 Solu-Cortef - IVPB 100 mg TID [facility] Administration Vancomycin HCl 1 gm in 200 mls @ 200 mls/hr 05/21/18 15:00 05/21/18 16:06 Vancomycin 1 Gm Premix - IVPB 200 mls/hr Q24H [facility] Administration Protocol Meropenem 1 gm/ Dextrose 100 mls @ 200 mls/hr 05/21/18 14:15 05/22/18 11:39 IVPB 200 mls/hr Q8H-IV [facility] Administration Amino Acids 1,000 mls @ 42 mls/hr 05/21/18 21:45 05/21/18 23:42 Clinimix - IV 42 mls/hr Q24H [facility] Administration Insulin Aspart 1 vial 05/21/18 22:00 05/22/18 12:16 Novolog Vial Sliding Scale - SQ 4 units ACHS [facility] Administration Protocol Mupirocin 1 applic 05/20/18 22:00 05/22/18 11:38 Bactroban Ointment (For Decolonization) - NS 05/25/18 21:59 1 applic BID [facility] Administration Mycophenolate Sodium 360 mg 05/22/18 22:00 Mycophenolic Acid PO BID [facility] Tacrolimus 1 mg 05/20/18 22:00 05/22/18 12:23 Prograf PO 1 mg BID [facility] Administration Vancomycin HCl 125 mg 05/21/18 18:00 05/22/18 12:16 Vancomycin Oral Solution PO 125 mg Q6HPO [facility] Administration Impression 1. CKD 2. kidney transplant 3. DM 4. hx of syncope 5. HTN 6. hyperlipidemia 7. CHF 8. acute resp failure Plan - monitor renal function - check prograf level - repeat director of marketing analytics in am - restart mycophenylate, unclear why stopped - abx per ID - follow cultures - trend WBC Dr Perez
[2018-05-22] MEDS: VANCOMYCIN 1 GM PREMIX - 1 GM/200 ML BAG IVPB SCH (16:11)
--- NOTE | 2018-05-22 16:27 | PN ---
Teaching Attending Note Name of Resident: Piter Hernandez ATTENDING PHYSICIAN STATEMENT I saw and evaluated the patient. I reviewed the resident's note and discussed the case with the resident. I agree with the resident's findings and plan as documented. SUBJECTIVE: Patient seen and examined in the ICU. Self extubated this AM. Now awake and alert. Denies CP or SOB. Some dry cough. Intake & Output 05/19/18 05/20/18 05/21/18 05/22/18 23:59 23:59 23:59 23:59 Intake Total 3350 610 468 Output Total 1550 1350 Balance 3350 -940 -882 Weight 115 lb 171 lb 4.787 oz 168 lb Last Vital Signs Temp Pulse Resp BP Pulse Ox 98.6 F 84 76 H 111/50 99 05/22/18 14:00 05/22/18 14:00 05/22/18 14:00 05/22/18 14:00 05/22/18 04:44 Active Medications Acetaminophen (Ofirmev Injection -) 1,000 mg IVPB Q6H PRN PRN Reason: FEVER Chlorhexidine Gluconate (Hibiclens For Decolonization -) 1 applic TP HS [facility] Last Admin: 05/21/18 23:44 Dose: 1 applic Enoxaparin Sodium (Lovenox -) 70 mg SQ BID [facility] Last Admin: 05/22/18 10:37 Dose: 70 mg Hydrocortisone Sodium Succinate (Solu-Cortef -) 100 mg IVPB TID [facility] Last Admin: 05/22/18 15:01 Dose: 100 mg Vancomycin HCl (Vancomycin 1 Gm Premix -) 1 gm in 200 mls @ 200 mls/hr IVPB Q24H [facility]; Protocol Last Admin: 05/22/18 16:11 Dose: 200 mls/hr Meropenem 1 gm/ Dextrose 100 mls @ 200 mls/hr IVPB Q8H-IV [facility] Last Admin: 05/22/18 11:39 Dose: 200 mls/hr Amino Acids (Clinimix -) 1,000 mls @ 42 mls/hr IV Q24H [facility] Last Admin: 05/21/18 23:42 Dose: 42 mls/hr Insulin Aspart (Novolog Vial Sliding Scale -) 1 vial SQ ACHS [facility]; Protocol Last Admin: 05/22/18 12:16 Dose: 4 units Mupirocin (Bactroban Ointment (For Decolonization) -) 1 applic NS BID [facility]S [facility]CLUDE 234 BEDS AT THE [facility] Stop: 05/25/18 21:59 Last Admin: 05/22/18 11:38 Dose: 1 applic Mycophenolate Sodium (Mycophenolic Acid) 360 mg PO BID [facility]S INCLUDE 234 BEDS AT THE [facility] Tacrolimus (Prograf) 1 mg PO BID COUNTS INCLUDE 234 BEDS AT THE [facility] Last Admin: 05/22/18 12:23 Dose: 1 mg Vancomycin HCl (Vancomycin Oral Solution) 125 mg PO Q6HPO COUNTS INCLUDE 234 BEDS AT THE [facility] Last Admin: 05/22/18 12:16 Dose: 125 mg PE: Gen: Extubated, awake and able to follow commands HEENT: (-) Pallor, scleral injected PULM; Scattered rhonchi CV: S1S2, regular ABD; Softly distended, (+) BS EXT: Asymetrical edema Neuro: nonfocal Laboratory Results - last 24 hr 05/21/18 11:58 POC Glucometer [id number] Problem List (1) Sepsis Code(s): A41.9 - SEPSIS, UNSPECIFIED ORGANISM (2) Transplant recipient Code(s): Z94.89 - OTHER TRANSPLANTED ORGAN AND TISSUE STATUS (3) IDDM (insulin dependent diabetes mellitus) Code(s): E11.9 - TYPE 2 DIABETES MELLITUS WITHOUT COMPLICATIONS; Z79.4 - [employer] (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 OF INSULIN (4) Acute Respiratory Failure Assessment/Plan CKD Kidney transplant DM Syncope HTN Hyperlipidemia CHF PLAN: Prograf Follow CMP O2 as needed to maintain saturation ABX per ID Follow cultures Rapid Steroid wean D/C Clinimix AC Dr Melgar Critical care time spent in reviewing chart, evaluating patient and formulating plan - 36 minutes.
[2018-05-22] MEDS ORDERED: INSULIN (NOVOLOG) ASPART 100 UNITS/ML 10ML VIAL SQ ONE ×2 (17:14→19:45)
[2018-05-22 18:50] LABS: ANION GAP 6 (8-16); BLOOD UREA NITROGEN 20 mg/dL (7-18); CALCIUM 7.5 mg/dL (8.5-10.1); CHLORIDE 100 mmol/L (98-107); CO2 26 mmol/L (21-32); CREATININE 1.1 mg/dL (0.7-1.3); POTASSIUM 4.7 mmol/L (3.5-5.1); SODIUM 132 mmol/L (136-145)
[2018-05-22 18:58] LABS: GLUCOSE,RANDOM 435 mg/dL (74-106)
[2018-05-22] MEDS ORDERED: SODIUM CHLORIDE 1,000 ML IV SCH (21:00)
[2018-05-22] MEDS ORDERED: MORPHINE SULFATE 2 MG/ML VIAL IVPUSH PRN (21:18)
[2018-05-22] MEDS: CHLORHEXIDINE GLUCONATE 4% CLEANSER FOR DECOLONIZATION TP SCH (22:43)
[2018-05-22] MEDS: MYCOPHENOLATE SODIUM 360 MG TABLET.DR PO SCH (22:44)
[2018-05-22 22:56] LABS: ANION GAP 8 (8-16); BLOOD UREA NITROGEN 20 mg/dL (7-18); CHLORIDE 104 mmol/L (98-107); CO2 25 mmol/L (21-32); CREATININE 1.2 mg/dL (0.7-1.3); GLUCOSE,RANDOM 266 mg/dL (74-106); POTASSIUM 4.3 mmol/L (3.5-5.1); SODIUM 137 mmol/L (136-145)
[2018-05-23] MEDS: MEROPENEM 1 GM in DEXTROSE 5%-WATER 100 ML IVPB SCH ×3 (02:00→19:58)
[2018-05-23] MEDS ORDERED: PT OWN MED DRAWER 7, Y5N ONE ×5 (04:26→18:33)
[2018-05-23] MEDS ORDERED: HEMOQUE TEST 1 EACH EACH ONE ×2 (05:47→21:40)
[2018-05-23] MEDS: INSULIN SLIDING SCALE (NOVOLOG) 1 VIAL SQ SCH ×4 (06:06→22:07)
[2018-05-23] MEDS: VANCOMYCIN 250 MG/5 ML ORAL SOLUTION PO SCH ×3 (06:08→18:27)
[2018-05-23] MEDS: HYDROCORTISONE SOD SUCCINATE 100 MG/2 ML VIAL IVPB SCH ×3 (06:09→21:12)
[2018-05-23 06:21] LABS: BASO % 0.1 % (0-2.0); HEMATOCRIT 32.8 % (35.4-49); HEMOGLOBIN 10.9 GM/dL (11.7-16.9); LYMPH % 11.2 % (8-40); MCHC 33.1 g/dl (32.0-35.9); MEAN CELL VOLUME 87.5 fl (80-96); MEAN PLT VOLUME 7.6 fl (7.5-11.1); MONO % 4.8 % (3.8-10.2); NEUT % 83.9 % (42.8-82.8); PLATELET COUNT 272 K/MM3 (134-434); RBC 3.75 M/mm3 (4.00-5.60); RDW 16.1 % (11.9-15.9); WHITE BLOOD COUNT 11.3 K/mm3 (4.0-10.0)
[2018-05-23 06:50] LABS: CHLORIDE 103 mmol/L (98-107); POTASSIUM 4.5 mmol/L (3.5-5.1); SODIUM 136 mmol/L (136-145)
[2018-05-23 07:11] LABS: ALBUMIN 2.6 g/dl (3.4-5.0); ALK PHOS 65 U/L (45-117); ANION GAP 11 (8-16); BILIRUBIN,TOTAL 0.4 mg/dL (0.2-1.0); BLOOD UREA NITROGEN 18 mg/dL (7-18); CALCIUM 7.1 mg/dL (8.5-10.1); CO2 22 mmol/L (21-32); CREATININE 0.9 mg/dL (0.7-1.3); GLUCOSE,RANDOM 276 mg/dL (74-106); PHOSPHOROUS 2.9 mg/dL (2.5-4.9); SGOT/AST 12 U/L (15-37); SGPT/ALT 20 U/L (12-78); TOT PROT 5.3 g/dl (6.4-8.2)
--- NOTE | 2018-05-23 07:12 | PN ---
Progress Note, Physician History of Present Illness: self extubated -doing better -comfortable in bed -confused - Current Medication List Current Medications: Active Medications Acetaminophen (Ofirmev Injection -) 1,000 mg IVPB Q6H PRN PRN Reason: FEVER Last Admin: 05/22/18 23:15 Dose: 1,000 mg Chlorhexidine Gluconate (Hibiclens For Decolonization -) 1 applic TP HS [facility] Last Admin: 05/22/18 22:43 Dose: 1 applic Enoxaparin Sodium (Lovenox -) 70 mg SQ BID [facility] Last Admin: 05/22/18 22:39 Dose: 70 mg Hydrocortisone Sodium Succinate (Solu-Cortef -) 100 mg IVPB TID [facility] Last Admin: 05/23/18 06:09 Dose: 100 mg Vancomycin HCl (Vancomycin 1 Gm Premix -) 1 gm in 200 mls @ 200 mls/hr IVPB Q24H [facility]; Protocol Last Admin: 05/22/18 16:11 Dose: 200 mls/hr Meropenem 1 gm/ Dextrose 100 mls @ 200 mls/hr IVPB Q8H-IV [facility] Last Admin: 05/23/18 02:00 Dose: 200 mls/hr Sodium Chloride (Normal Saline -) 1,000 mls @ 50 mls/hr IV ASDIR [facility] Stop: 05/23/18 20:57 Last Admin: 05/23/18 04:32 Dose: 50 mls/hr Insulin Aspart (Novolog Vial Sliding Scale -) 1 vial SQ ACHS [facility]; Protocol Last Admin: 05/23/18 06:06 Dose: 6 units Morphine Sulfate (Morphine Sulfate) 1 mg IVPUSH Q4H PRN PRN Reason: PAIN LEVEL 6-10 Last Admin: 05/22/18 22:51 Dose: 1 mg Mupirocin (Bactroban Ointment (For Decolonization) -) 1 applic NS BID [facility] Stop: 05/25/18 21:59 Last Admin: 05/22/18 23:16 Dose: 1 applic Mycophenolate Sodium (Mycophenolic Acid) 360 mg PO BID [facility] Last Admin: 05/22/18 22:44 Dose: 360 mg Tacrolimus (Prograf) 1 mg PO BID [facility] Last Admin: 05/22/18 22:43 Dose: 1 mg Vancomycin HCl (Vancomycin Oral Solution) 125 mg PO Q6HPO [facility] Last Admin: 05/23/18 06:08 Dose: 125 mg - Objective Vital Signs: Vital Signs Temperature 99 F 05/23/18 02:00 Pulse Rate 88 05/23/18 04:00 Respiratory Rate 20 05/23/18 04:00 Blood Pressure 170/149 05/23/18 04:00 O2 Sat by Pulse Oximetry (%) 99 05/22/18 04:44 Cardiovascular: Yes: S1, S2 Respiratory: Yes: On Nasal O2, Rhonchi Gastrointestinal: Yes: Normal Bowel Sounds, Soft Labs: CBC, BMP 05/23/18 05:30 INR, PTT INR 1.17 (0.82-1.09) H 05/20/18 18:34 Problem List - Problems (1) Acute respiratory failure Assessment/Plan: -May have been due to hypoglycemia-aspiration--pna -monitor in icu -Extubated -follow labs -pulm/cardio noted Code(s): J96.00 - ACUTE RESPIRATORY FAILURE, UNSP W HYPOXIA OR HYPERCAPNIA (2) Hypoglycemia Assessment/Plan: -Hold insulin -bgm -endo noted--clinimex Code(s): E16.2 - HYPOGLYCEMIA, UNSPECIFIED (3) Hypotension Assessment/Plan: -pressers -icu monitoring Code(s): I95.9 - HYPOTENSION, UNSPECIFIED Qualifiers: Hypotension type: unspecified hypotension type Qualified Code(s): I95.9 - Hypotension, unspecified (4) IDDM (insulin dependent diabetes mellitus) Assessment/Plan: -insulin per endo -monitor closely Code(s): E11.9 - TYPE 2 DIABETES MELLITUS WITHOUT COMPLICATIONS; Z79.4 - [employer] (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 OF INSULIN (5) Sepsis Code(s): A41.9 - SEPSIS, UNSPECIFIED ORGANISM (6) Transplant recipient Assessment/Plan: steroid stress dosing since he has been on steroids--decrease cortef 40 q 8 then po in am prograf Code(s): Z94.89 - OTHER TRANSPLANTED ORGAN AND TISSUE STATUS
--- NOTE | 2018-05-23 09:09 | PN ---
Progress Note (short form) - Note Progress Note: awake and alert self extubated yesterday nurse reports no diarrhea [facility] tomorrow! Vital Signs Period Temp Pulse Resp BP Sys/Mendoza Pulse Ox Last 24 Hr 98.4 F-99 F 80-88 18-78 106-170/34-149 cor-rrr lungs bibasilar crackles abd soft,nt ext +edema CBC, BMP 05/23/18 05:30 05/23/18 05:30 Microbiology 05/20/18 21:39 Blood - Peripheral Venous Blood Culture - Preliminary NO GROWTH OBTAINED AFTER 48 HOURS, INCUBATION TO CONTINUE FOR 3 DAYS. 05/20/18 21:39 Blood - Peripheral Venous Blood Culture - Preliminary NO GROWTH OBTAINED AFTER 48 HOURS, INCUBATION TO CONTINUE FOR 3 DAYS. 05/21/18 17:30 Sputum - Endotrachea Suction/Ventilator Gram Stain - Final 05/21/18 17:30 Urine For Antigen Detection Legionella Antigen - Final 05/21/18 17:30 Urine For Antigen Detection Streptococcus pneumoniae Antigen (M - Final 05/20/18 21:39 Urine - Urine - Catheterized Urine Culture - Final NO GROWTH OBTAINED Current Medications Acetaminophen (Ofirmev Injection -) 1,000 mg IVPB Q6H PRN PRN Reason: FEVER Last Admin: 05/22/18 23:15 Dose: 1,000 mg Chlorhexidine Gluconate (Hibiclens For Decolonization -) 1 applic TP HS [facility] Last Admin: 05/22/18 22:43 Dose: 1 applic Enoxaparin Sodium (Lovenox -) 70 mg SQ BID [facility] Last Admin: 05/22/18 22:39 Dose: 70 mg Hydrocortisone Sodium Succinate (Solu-Cortef -) 40 mg IVPB TID [facility] Vancomycin HCl (Vancomycin 1 Gm Premix -) 1 gm in 200 mls @ 200 mls/hr IVPB Q24H [facility]; Protocol Last Admin: 05/22/18 16:11 Dose: 200 mls/hr Meropenem 1 gm/ Dextrose 100 mls @ 200 mls/hr IVPB Q8H-IV [facility] Last Admin: 05/23/18 02:00 Dose: 200 mls/hr Sodium Chloride (Normal Saline -) 1,000 mls @ 50 mls/hr IV ASDIR [facility] Stop: 05/23/18 20:57 Last Admin: 05/23/18 04:32 Dose: 50 mls/hr Insulin Aspart (Novolog Vial Sliding Scale -) 1 vial SQ ACHS [facility]; Protocol Last Admin: 05/23/18 06:06 Dose: 6 units Morphine Sulfate (Morphine Sulfate) 1 mg IVPUSH Q4H PRN PRN Reason: PAIN LEVEL 6-10 Last Admin: 05/22/18 22:51 Dose: 1 mg Mupirocin (Bactroban Ointment (For Decolonization) -) 1 applic NS BID [facility] Stop: 05/25/18 21:59 Last Admin: 05/22/18 23:16 Dose: 1 applic Mycophenolate Sodium (Mycophenolic Acid) 360 mg PO BID [facility] Last Admin: 05/22/18 22:44 Dose: 360 mg Tacrolimus (Prograf) 1 mg PO BID [facility] Last Admin: 05/22/18 22:43 Dose: 1 mg Vancomycin HCl (Vancomycin Oral Solution) 125 mg PO Q6HPO [facility] Last Admin: 05/23/18 06:08 Dose: 125 mg a/p sepsis with hypoglycemia respiratory failure immunocompromised host-renal transplant recent DVT recent cdiff ?aspiration isolation (recent cdiff) 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
--- NOTE | 2018-05-23 10:08 | PN ---
Progress Note, Physician History of Present Illness: seen and examined today in nad. awake and alert, mildly confused at times, at times mildly agitated. no overnight events. no new complaints. - Current Medication List Current Medications: Active Medications Acetaminophen (Ofirmev Injection -) 1,000 mg IVPB Q6H PRN PRN Reason: FEVER Last Admin: 05/22/18 23:15 Dose: 1,000 mg Chlorhexidine Gluconate (Hibiclens For Decolonization -) 1 applic TP HS [facility] Last Admin: 05/22/18 22:43 Dose: 1 applic Enoxaparin Sodium (Lovenox -) 70 mg SQ BID [facility] Last Admin: 05/22/18 22:39 Dose: 70 mg Hydrocortisone Sodium Succinate (Solu-Cortef -) 40 mg IVPB TID [facility] Vancomycin HCl (Vancomycin 1 Gm Premix -) 1 gm in 200 mls @ 200 mls/hr IVPB Q24H [facility]; Protocol Last Admin: 05/22/18 16:11 Dose: 200 mls/hr Meropenem 1 gm/ Dextrose 100 mls @ 200 mls/hr IVPB Q8H-IV [facility] Last Admin: 05/23/18 02:00 Dose: 200 mls/hr Sodium Chloride (Normal Saline -) 1,000 mls @ 50 mls/hr IV ASDIR [facility] Stop: 05/23/18 20:57 Last Admin: 05/23/18 04:32 Dose: 50 mls/hr Insulin Aspart (Novolog Vial Sliding Scale -) 1 vial SQ ACHS [facility]; Protocol Last Admin: 05/23/18 06:06 Dose: 6 units Morphine Sulfate (Morphine Sulfate) 1 mg IVPUSH Q4H PRN PRN Reason: PAIN LEVEL 6-10 Last Admin: 05/22/18 22:51 Dose: 1 mg Mupirocin (Bactroban Ointment (For Decolonization) -) 1 applic NS BID [facility] Stop: 05/25/18 21:59 Last Admin: 05/22/18 23:16 Dose: 1 applic Mycophenolate Sodium (Mycophenolic Acid) 360 mg PO BID [facility] Last Admin: 05/22/18 22:44 Dose: 360 mg Tacrolimus (Prograf) 1 mg PO BID [facility] Last Admin: 05/22/18 22:43 Dose: 1 mg Vancomycin HCl (Vancomycin Oral Solution) 125 mg PO Q6HPO [facility] Last Admin: 05/23/18 06:08 Dose: 125 mg - Objective Vital Signs: Vital Signs Temperature 99 F 05/23/18 02:00 Pulse Rate 90 05/23/18 08:00 Respiratory Rate 20 05/23/18 09:00 Blood Pressure 112/42 05/23/18 08:00 O2 Sat by Pulse Oximetry (%) 99 05/22/18 04:44 Constitutional: Yes: No Distress, Calm Eyes: Yes: Conjunctiva Clear, EOM Intact HENT: Yes: Atraumatic, Normocephalic Neck: Yes: Supple, Trachea Midline Cardiovascular: Yes: Regular Rate and Rhythm, S1, S2. No: Bradycardia, Tachycardia, Pulse Irregular, Bruit, JVD, Gallop, Murmur, Rub, S3, S4, Varicosities Respiratory: Yes: Regular, Diminished. No: Rales, Rhonchi, SOB, Wheezes Gastrointestinal: Yes: Normal Bowel Sounds, Soft Extremities: Yes: WNL Edema: Yes Edema: LLE: Trace, RLE: Trace Peripheral Pulses WNL: Yes Peripheral Pulses: Left Doralis Pedis: 2+, Right Dorsalis Pedis: 2+ Neurological: Yes: Alert, Oriented Psychiatric: Yes: Alert, Oriented Labs: CBC, BMP 05/23/18 05:30 05/23/18 05:30 INR, PTT INR 1.17 (0.82-1.09) H 05/20/18 18:34 - ....Imaging Chest X-ray: Report Reviewed, Image Reviewed EKG: Report Reviewed, Image Reviewed Other: Report Reviewed, Image Reviewed (tele-nsr, no sig events recorded) Assessment/Plan 78 year old male with a PMH of IDDM, HTN, HLD, PAD, CAD s/p NE, s/p CABG, CHF, s /p Renal Transplant in 2008 (on immunosuppressants), and mild aortic stenosis. The patient was admitted for c-diff, AMS, and LLE DVT and discharged home . He was found unresponsive and family activated EMS. Per EMS, the patient was found with blood glucose in the low 20s. He was given D50 with no apparent improvement. In the field, patient was intubated. In the ED he was placed on LEVOPHED. now Extubated. Improving, off pressors Receiving IV Abx and IV steroids for presumed septic shock On Lovenox for DVT for now No sign of significant acute on chronic CHF at this time, hold off on standing diuresis and can use Lasix prn for now resume home Carvedilol when BP tolerates No additional inpatient cardiac work up needed at this time Please call with any additional questions.
[2018-05-23] MEDS: MYCOPHENOLATE SODIUM 360 MG TABLET.DR PO SCH ×2 (10:13→21:13)
[2018-05-23] MEDS: MUPIROCIN 2% TOPICAL OINTMENT FOR DECOLONIZATION NS SCH (10:14)
[2018-05-23] MEDS: ENOXAPARIN NA (PORCINE) 80 MG/0.8 ML DISP.SYRIN SQ SCH ×2 (10:15→21:11)
[2018-05-23] MEDS: TACROLIMUS ANHYDROUS 1 MG CAPSULE PO SCH ×2 (10:19→21:13)
[2018-05-23] MEDS ORDERED: INSULIN (NOVOLOG) ASPART 100 UNITS/ML 10ML VIAL SQ ONE ×2 (11:07→12:30)
[2018-05-23] MEDS ORDERED: INSULIN (LEVEMIR) 100 UNITS/ML UNITS SQ ONE (12:43)
--- NOTE | 2018-05-23 13:18 | PN ---
Teaching Attending Note Name of Resident: Piter Hernandez ATTENDING PHYSICIAN STATEMENT I saw and evaluated the patient. I reviewed the resident's note and discussed the case with the resident. I agree with the resident's findings and plan as documented. SUBJECTIVE: Patient seen and examined in the ICU. Remains extubated. Awake and alert and responsive. (seems mildly confused) Denies CP or SOB. Some dry cough. Intake & Output 05/20/18 05/21/18 05/22/18 05/23/18 23:59 23:59 23:59 23:59 Intake Total 3350 610 1363 400 Output Total 1550 1550 1000 Balance 3350 -940 -187 -600 Weight 115 lb 171 lb 4.787 oz 168 lb 168 lb 6.4 oz Last Vital Signs Temp Pulse Resp BP Pulse Ox 98.8 F 87 20 124/57 99 05/23/18 10:00 05/23/18 12:00 05/23/18 12:00 05/23/18 12:00 05/22/18 04:44 Active Medications Acetaminophen (Ofirmev Injection -) 1,000 mg IVPB Q6H PRN PRN Reason: FEVER Last Admin: 05/22/18 23:15 Dose: 1,000 mg Carvedilol (Coreg -) 3.125 mg PO BID [facility] Chlorhexidine Gluconate (Hibiclens For Decolonization -) 1 applic TP HS [facility] Last Admin: 05/22/18 22:43 Dose: 1 applic Enoxaparin Sodium (Lovenox -) 70 mg SQ BID [facility] Last Admin: 05/23/18 10:15 Dose: 70 mg Hydrocortisone Sodium Succinate (Solu-Cortef -) 40 mg IVPB TID [facility] Vancomycin HCl (Vancomycin 1 Gm Premix -) 1 gm in 200 mls @ 200 mls/hr IVPB Q24H [facility]; Protocol Last Admin: 05/22/18 16:11 Dose: 200 mls/hr Meropenem 1 gm/ Dextrose 100 mls @ 200 mls/hr IVPB Q8H-IV [facility] Last Admin: 05/23/18 11:34 Dose: Not Given Sodium Chloride (Normal Saline -) 1,000 mls @ 50 mls/hr IV ASDIR [facility] Stop: 05/23/18 20:57 Last Admin: 05/23/18 04:32 Dose: 50 mls/hr Insulin Aspart (Novolog Vial Sliding Scale -) 1 vial SQ ACHS [facility]; Protocol Last Admin: 05/23/18 12:47 Dose: 5 units Insulin Detemir (Levemir Vial) 10 units SQ ONCE ONE Stop: 05/23/18 12:44 Last Admin: 05/23/18 12:50 Dose: 10 units Insulin Detemir (Levemir Vial) 18 units SQ AM [facility] Morphine Sulfate (Morphine Sulfate) 1 mg IVPUSH Q4H PRN PRN Reason: PAIN LEVEL 6-10 Last Admin: 05/22/18 22:51 Dose: 1 mg Mupirocin (Bactroban Ointment (For Decolonization) -) 1 applic NS BID [facility] Stop: 05/25/18 21:59 Last Admin: 05/23/18 10:14 Dose: 1 applic Mycophenolate Sodium (Mycophenolic Acid) 360 mg PO BID [facility] Last Admin: 05/23/18 10:13 Dose: 360 mg Tacrolimus (Prograf) 1 mg PO BID [facility] Last Admin: 05/23/18 10:19 Dose: 1 mg Vancomycin HCl (Vancomycin Oral Solution) 125 mg PO Q6HPO [facility] Last Admin: 05/23/18 11:49 Dose: 125 mg PE: Gen: Extubated, awake and able to follow commands HEENT: (-) Pallor, scleral injected PULM; Scattered rhonchi CV: S1S2, regular ABD; Softly distended, (+) BS EXT: less edema Neuro: nonfocal Laboratory Results - last 24 hr 05/21/18 05/22/18 05/22/18 11:58 18:00 22:00 WBC RBC Hgb Hct MCV MCH MCHC RDW Plt Count MPV Absolute Neuts (auto) Neutrophils % Lymphocytes % Monocytes % Eosinophils % Basophils % Nucleated RBC % Sodium 132 L 137 Potassium 4.7 4.3 Chloride 100 104 Carbon Dioxide 26 25 Anion Gap 6 L 8 BUN 20 H 20 H Creatinine 1.1 1.2 Creat Clearance w eGFR > 60 58.86 POC Glucometer [phone] Random Glucose 435 H* D 266 H D Calcium 7.5 L 8.0 L Phosphorus Magnesium Total Bilirubin AST ALT Alkaline Phosphatase Total Protein Albumin 05/23/18 05/23/18 05:30 05:30 WBC 11.3 H RBC 3.75 L Hgb 10.9 L Hct 32.8 L MCV 87.5 MCH 29.0 MCHC 33.1 RDW 16.1 H Plt Count 272 MPV 7.6 Absolute Neuts (auto) 9.4 Neutrophils % 83.9 H Lymphocytes % 11.2 D Monocytes % 4.8 Eosinophils % 0.0 D Basophils % 0.1 Nucleated RBC % 0 Sodium 136 Potassium 4.5 Chloride 103 Carbon Dioxide 22 Anion Gap 11 BUN 18 Creatinine 0.9 Creat Clearance w eGFR > 60 POC Glucometer Random Glucose 276 H Calcium 7.1 L Phosphorus 2.9 D Magnesium 2.0 D Total Bilirubin 0.4 AST 12 L ALT 20 Alkaline Phosphatase 65 Total Protein 5.3 L Albumin 2.6 L Problem List (1) Sepsis Code(s): A41.9 - SEPSIS, UNSPECIFIED ORGANISM (2) Transplant recipient Code(s): Z94.89 - OTHER TRANSPLANTED ORGAN AND TISSUE STATUS (3) IDDM (insulin dependent diabetes mellitus) Code(s): E11.9 - TYPE 2 DIABETES MELLITUS WITHOUT COMPLICATIONS; 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
--- NOTE | 2018-05-23 13:26 | CONSULT ---
Admitting History and Physical - Primary Care Physician PCP: Nury Eid - Admission History of Present Illness: 78yo M with history of Renal transplant (on immunosuppression; '09), DM, and prior arrests noted with hypoglycemia and resp failure and DVT LLE. Acute Hypoxic Resp Failure Self extubated yesterday Selected Entries 04/14/18 04/14/18 04/14/18 02:01 05:43 09:39 Breakfast Lunch Temperature 98.3 F 98.6 F 98.1 F 04/14/18 05/22/18 05/22/18 09:55 02:00 04:41 Breakfast 100% Lunch NPO Temperature 98.2 F 05/22/18 05/22/18 05/22/18 09:21 14:00 20:06 Breakfast Lunch 75% 75% Temperature 98.6 F 05/22/18 05/23/18 05/23/18 22:00 02:00 09:13 Breakfast 100% Lunch Temperature 98.4 F 99 F 05/23/18 10:00 Breakfast Lunch Temperature 98.8 F Laboratory Tests 05/20/18 05/21/18 05/23/18 18:32 05:40 05:30 WBC 9.4 15.4 H 11.3 H . On pureed diet/nectar thick liquids since yesterday. Reported to enough during dinner but not lunch, likely due to impaired sensation/edema after self extubated. Repeated silent aspiration on thin liquids on previous MBS, last done March 2018. Soft cohesive moist diet and nectar thick liquids recommended. Pt does not comply with thickened liquids. History Source: Medical Record Limitations to Obtaining History: Clinical Condition - Past Medical History Cardiovascular: Yes: CAD, CHF, HTN, SD, Other Renal/: Yes: Other (S/P Kidney tranplant 2008. 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 coli in past, osteomyelitis of his finger) Endocrine: Yes: Diabetes Mellitus - Past Surgical History Past Surgical History: Yes: AV Fistula/Graft (right upper arm, non working), CABG, Kidney Transplant (right 2008) - Advance Directives Advance Directives: Yes: Health Care Proxy - Smoking History Smoking history: Never smoked Have you smoked in the past 12 months: No Aproximately how many cigarettes per day: 0 - Alcohol/Substance Use Hx Alcohol Use: No History of Substance Use: reports: None - Social History ADL: Support Services History of Recent Travel: No History - Admission Reason For Visit: HYPOGLYCEMIA,HYPOTENSION - General Mental Status: Awake and Alert, Able to Follow Commands, Vague (speaking in Malay and Andorran. Oriented to [facility].), Intermittently Confused Attention: Intact Ability to Follow Directions: Fair Head/Neck Control: Fair - Hearing Hearing: Normal Speech Evaluation - Communication Primary Language: TAMAZIGHT Secondary Language: HAITIAN Communication: Yes: Within Normal Limits - Speech Production Able to Make Needs Known: Yes: WNL Intelligibility: Yes: WNL - Speech Characteristics Voice Loudness: Mildly Soft/Quiet Voice Pitch: Yes: Normal Voice Phonatory-based Quality: Yes: Hoarse (mild) Nasal Resonance: Normal Articulation: Yes: Precise Rate of Speech: Intact - Language/Auditory Comprehension Follows: Yes: 1 Stage Simple Commands Observation: Comprehends Conversational Speech: Yes - Language/Verbal Expression Able to Communicate Wants and Needs: Yes: WNL Functional Communication Status: Yes: WNL - Swallow Evaluation/Bedside Assessment Current Nutritional Intake: Dysphagia Pureed, [place] Textured Liquids Oral Secretions: Yes: WFL Dentition: Yes: Adequate Facial Symmetry at Rest: Symmetrical Facial Symmetry on Retraction: Symmetrical Sensation: Normal Against Resistance Opening: Normal Against Resistance Closing: Normal Pucker Lips: Normal Smile: Normal Lingual Movement: Normal, Symmetric Lingual Speed of Movement: Normal Lingual Movement Strgth Against Opposition: Normal Lingual Movement Characteristics: Normal Velopharyngeal Movement: Normal Laryngeal Movement: Able to Palpate, Labored,delay initiation Rate of Intake: Impulsive Labial Seal: WFL A-P Transit: WFL Timing of Swallow: Delayed Coughing/Throat Clear: No Change in Voice: No Recommendations - Speech Evaluation, Impression/Plan Impression: Reported to overtly tolerate puree, but coughs on soup with impulsive intake. Self extubated. Voice mildly dysphonic. Repeated silent aspiration on thin liquids on previous MBS, last done March 2018. Pt does not comply with thickened liquids. - Dysphagia Impressions/Plan Swallowing Skills: Impaired Dysphagia Impressions: Mild Impairment, Suspect Aspiration (suspected SILENT, as noted before during MBS.) *Silent aspiration: cannot be R/O at bedside Dysphagia Treatment Plan: Swallowing Exercises, Chin Tuck/Down, Safe Rate, 1/2 tsp. at a time, OOB for meals, OOB for 1 h. after meals, Other (Supervision with meals.) - Recommendations Diet Consistency: Dysphagia Pureed Medication Administration: Crushed with applesauce Liquids: [place] Thick (single sips. If cough persists, honey thick.) Supplement: Magic Cup, Ensure Pudding
[2018-05-23] MEDS: VANCOMYCIN 1 GM PREMIX - 1 GM/200 ML BAG IVPB SCH (16:00)
--- NOTE | 2018-05-23 16:19 | PN ---
Progress Note, Physician History of Present Illness: Pt seen and examined at bedside. He is awake and appears comfortable. He denies dysuria. - Current Medication List Current Medications: Active Medications Acetaminophen (Ofirmev Injection -) 1,000 mg IVPB Q6H PRN PRN Reason: FEVER Last Admin: 05/22/18 23:15 Dose: 1,000 mg Carvedilol (Coreg -) 3.125 mg PO BID [facility] Chlorhexidine Gluconate (Hibiclens For Decolonization -) 1 applic TP HS [facility] Last Admin: 05/22/18 22:43 Dose: 1 applic Enoxaparin Sodium (Lovenox -) 70 mg SQ BID [facility] Last Admin: 05/23/18 10:15 Dose: 70 mg Hydrocortisone Sodium Succinate (Solu-Cortef -) 40 mg IVPB TID [facility] Last Admin: 05/23/18 13:39 Dose: 40 mg Vancomycin HCl (Vancomycin 1 Gm Premix -) 1 gm in 200 mls @ 200 mls/hr IVPB Q24H [facility]; Protocol Last Admin: 05/22/18 16:11 Dose: 200 mls/hr Meropenem 1 gm/ Dextrose 100 mls @ 200 mls/hr IVPB Q8H-IV [facility] Last Admin: 05/23/18 11:34 Dose: Not Given Sodium Chloride (Normal Saline -) 1,000 mls @ 50 mls/hr IV ASDIR [facility] Stop: 05/23/18 20:57 Last Admin: 05/23/18 04:32 Dose: 50 mls/hr Insulin Aspart (Novolog Vial Sliding Scale -) 1 vial SQ ACHS [facility]; Protocol Last Admin: 05/23/18 12:47 Dose: 5 units Insulin Detemir (Levemir Vial) 18 units SQ AM [facility] Morphine Sulfate (Morphine Sulfate) 1 mg IVPUSH Q4H PRN PRN Reason: PAIN LEVEL 6-10 Last Admin: 05/22/18 22:51 Dose: 1 mg Mupirocin (Bactroban Ointment (For Decolonization) -) 1 applic NS BID [facility] Stop: 05/25/18 21:59 Last Admin: 05/23/18 10:14 Dose: 1 applic Mycophenolate Sodium (Mycophenolic Acid) 360 mg PO BID [facility] Last Admin: 05/23/18 10:13 Dose: 360 mg Tacrolimus (Prograf) 1 mg PO BID [facility] Last Admin: 05/23/18 10:19 Dose: 1 mg Vancomycin HCl (Vancomycin Oral Solution) 125 mg PO Q6HPO [facility] Last Admin: 05/23/18 11:49 Dose: 125 mg - Objective Vital Signs: Vital Signs Temperature 98.8 F 05/23/18 10:00 Pulse Rate 87 05/23/18 12:00 Respiratory Rate 20 05/23/18 12:00 Blood Pressure 124/57 05/23/18 12:00 O2 Sat by Pulse Oximetry (%) 99 05/22/18 04:44 Constitutional: Yes: Calm Eyes: Yes: Conjunctiva Clear HENT: Yes: Atraumatic Neck: Yes: Supple Cardiovascular: Yes: S1, S2 Respiratory: Yes: CTA Bilaterally Gastrointestinal: Yes: Soft Genitourinary: Yes: Other (graft soft and non tender) Musculoskeletal: Yes: WNL Edema: No Neurological: Yes: Confusion Psychiatric: Yes: Oriented Labs: CBC, BMP 05/23/18 05:30 05/23/18 05:30 INR, PTT INR 1.17 (0.82-1.09) H 05/20/18 18:34 Problem List - Problems (1) Sepsis Code(s): A41.9 - SEPSIS, UNSPECIFIED ORGANISM (2) Transplant recipient Code(s): Z94.89 - OTHER TRANSPLANTED ORGAN AND TISSUE STATUS (3) IDDM (insulin dependent diabetes mellitus) Code(s): E11.9 - TYPE 2 DIABETES MELLITUS WITHOUT COMPLICATIONS; 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 Assessment/Plan Current Medications Generic Name Dose Route Start Last Admin Trade Name Garfield PRN Reason Stop Dose Admin Acetaminophen 1,000 mg 05/21/18 05:09 05/22/18 23:15 Ofirmev Injection - IVPB 1,000 mg Q6H PRN Administration FEVER Carvedilol 3.125 mg 05/23/18 22:00 Coreg - PO BID [facility] Chlorhexidine Gluconate 1 applic 05/20/18 22:00 05/22/18 22:43 Hibiclens For Decolonization - TP 1 applic HS [facility] Administration Enoxaparin Sodium 70 mg 05/21/18 22:00 05/23/18 10:15 Lovenox - SQ 70 mg BID [facility] Administration Hydrocortisone Sodium Succinate 40 mg 05/23/18 07:29 05/23/18 13:39 Solu-Cortef - IVPB 40 mg TID [facility] Administration Vancomycin HCl 1 gm in 200 mls @ 200 mls/hr 05/21/18 15:00 05/22/18 16:11 Vancomycin 1 Gm Premix - IVPB 200 mls/hr Q24H [facility] Administration Protocol Meropenem 1 gm/ Dextrose 100 mls @ 200 mls/hr 05/21/18 14:15 05/23/18 11:34 IVPB Not Given Q8H-IV [facility] Sodium Chloride 1,000 mls @ 50 mls/hr 05/22/18 21:00 05/23/18 04:32 Normal Saline - IV 05/23/18 20:57 50 mls/hr ASDIR [facility] Administration Insulin Aspart 1 vial 05/21/18 22:00 05/23/18 12:47 Novolog Vial Sliding Scale - SQ 5 units ACHS [facility] Administration Protocol Insulin Detemir 18 units 05/24/18 07:00 Levemir Vial SQ AM [facility] Morphine Sulfate 1 mg 05/22/18 21:18 05/22/18 22:51 Morphine Sulfate IVPUSH 1 mg Q4H PRN Administration PAIN LEVEL 6-10 Mupirocin 1 applic 05/20/18 22:00 05/23/18 10:14 Bactroban Ointment (For Decolonization) - NS 05/25/18 21:59 1 applic BID [facility] Administration Mycophenolate Sodium 360 mg 05/22/18 22:00 05/23/18 10:13 Mycophenolic Acid PO 360 mg BID [facility] Administration Tacrolimus 1 mg 05/20/18 22:00 05/23/18 10:19 Prograf PO 1 mg BID [facility] Administration Vancomycin HCl 125 mg 05/21/18 18:00 05/23/18 11:49 Vancomycin Oral Solution PO 125 mg Q6HPO [facility] Administration Impression 1. CKD 2. kidney transplant 3. DM 4. hx of syncope 5. HTN 6. hyperlipidemia 7. CHF 8. acute resp failure Plan - renal function is improved - cont transplant meds - restart prednisone once off of IV steroids - monitor renal function - discussed with ICU team Dr Perez
--- NOTE | 2018-05-23 19:13 | PN ---
Physical Exam: SUBJECTIVE: Patient seen and examined today in icu. Monahan catheter and femoral line removed. Pt being transferred to [facility]. OBJECTIVE: Vital Signs Temperature 98.8 F 05/23/18 10:00 Pulse Rate 90 05/23/18 16:21 Respiratory Rate 20 05/23/18 16:21 Blood Pressure 128/90 05/23/18 16:21 O2 Sat by Pulse Oximetry (%) 99 05/22/18 04:44 GENERAL: The patient is awake, alert, and fully oriented, in no acute distress. HEAD: Normal with no signs of trauma. EYES: PERRL, extraocular movements intact, sclera anicteric, conjunctiva clear. No ptosis. ENT: Ears normal, nares patent, oropharynx clear without exudates, moist mucous membranes. NECK: Trachea midline, full range of motion, supple. LUNGS: Breath sounds equal, clear to auscultation bilaterally, no wheezes, no crackles, no accessory muscle use. HEART: Regular rate and rhythm, S1, S2 without murmur, rub or gallop. ABDOMEN: Soft, nontender, nondistended, normoactive bowel sounds, no guarding, no rebound, no hepatosplenomegaly, no masses. EXTREMITIES: 2+ pulses, warm, well-perfused, no edema. NEUROLOGICAL: Cranial nerves II through XII grossly intact. Normal speech, gait not observed. PSYCH: Normal mood, normal affect. SKIN: Warm, dry, normal turgor, no rashes or lesions noted Laboratory Results - last 24 hr 05/21/18 05/22/18 05/22/18 16:21 00:04 05:48 WBC RBC Hgb Hct MCV MCH MCHC RDW Plt Count MPV Absolute Neuts (auto) Neutrophils % Lymphocytes % Monocytes % Eosinophils % Basophils % Nucleated RBC % Sodium Potassium Chloride Carbon Dioxide Anion Gap BUN Creatinine Creat Clearance w eGFR POC Glucometer 199.06281 268.37379 221.63802 Random Glucose Calcium Phosphorus Magnesium Total Bilirubin AST ALT Alkaline Phosphatase Total Protein Albumin 05/22/18 05/22/18 05/22/18 11:33 18:00 22:00 WBC RBC Hgb Hct MCV MCH MCHC RDW Plt Count MPV Absolute Neuts (auto) Neutrophils % Lymphocytes % Monocytes % Eosinophils % Basophils % Nucleated RBC % Sodium 132 L 137 Potassium 4.7 4.3 Chloride 100 104 Carbon Dioxide 26 25 Anion Gap 6 L 8 BUN 20 H 20 H Creatinine 1.1 1.2 Creat Clearance w eGFR > 60 58.86 POC Glucometer 228.61290 Random Glucose 435 H* D 266 H D Calcium 7.5 L 8.0 L Phosphorus Magnesium Total Bilirubin AST ALT Alkaline Phosphatase Total Protein Albumin 05/23/18 05/23/18 05/23/18 05:30 05:30 12:35 WBC 11.3 H RBC 3.75 L Hgb 10.9 L Hct 32.8 L MCV 87.5 MCH 29.0 MCHC 33.1 RDW 16.1 H Plt Count 272 MPV 7.6 Absolute Neuts (auto) 9.4 Neutrophils % 83.9 H Lymphocytes % 11.2 D Monocytes % 4.8 Eosinophils % 0.0 D Basophils % 0.1 Nucleated RBC % 0 Sodium 136 Potassium 4.5 Chloride 103 Carbon Dioxide 22 Anion Gap 11 BUN 18 Creatinine 0.9 Creat Clearance w eGFR > 60 POC Glucometer > 400 Random Glucose 276 H Calcium 7.1 L Phosphorus 2.9 D Magnesium 2.0 D Total Bilirubin 0.4 AST 12 L ALT 20 Alkaline Phosphatase 65 Total Protein 5.3 L Albumin 2.6 L Active Medications Generic Name Dose Route Start Last Admin Trade Name Freq PRN Reason Stop Dose Admin Acetaminophen 1,000 mg 05/21/18 05:09 05/22/18 23:15 Ofirmev Injection - IVPB 1,000 mg Q6H PRN Administration FEVER Carvedilol 3.125 mg 05/23/18 22:00 Coreg - PO BID [facility] Chlorhexidine Gluconate 1 applic 05/20/18 22:00 05/22/18 22:43 Hibiclens For Decolonization - TP 1 applic HS [facility] Administration Enoxaparin Sodium 70 mg 05/21/18 22:00 05/23/18 10:15 Lovenox - SQ 70 mg BID [facility] Administration Hydrocortisone Sodium Succinate 40 mg 05/23/18 07:29 05/23/18 13:39 Solu-Cortef - IVPB 40 mg TID [facility] Administration Vancomycin HCl 1 gm in 200 mls @ 200 mls/hr 05/21/18 15:00 05/23/18 16:00 Vancomycin 1 Gm Premix - IVPB 200 mls/hr Q24H [facility] Administration Protocol Meropenem 1 gm/ Dextrose 100 mls @ 200 mls/hr 05/21/18 14:15 05/23/18 11:34 IVPB Not Given Q8H-IV [facility] Sodium Chloride 1,000 mls @ 50 mls/hr 05/22/18 21:00 05/23/18 04:32 Normal Saline - IV 05/23/18 20:57 50 mls/hr ASDIR [facility] Administration Insulin Aspart 1 vial 05/21/18 22:00 05/23/18 18:26 Novolog Vial Sliding Scale - SQ 7 units ACHS [facility] Administration Protocol Insulin Detemir 18 units 05/24/18 07:00 Levemir Vial SQ AM [facility] Morphine Sulfate 1 mg 05/22/18 21:18 05/22/18 22:51 Morphine Sulfate IVPUSH 1 mg Q4H PRN Administration PAIN LEVEL 6-10 Mupirocin 1 applic 05/20/18 22:00 05/23/18 10:14 Bactroban Ointment (For Decolonization) - NS 05/25/18 21:59 1 applic BID [facility] Administration Mycophenolate Sodium 360 mg 05/22/18 22:00 05/23/18 10:13 Mycophenolic Acid PO 360 mg BID [facility] Administration Tacrolimus 1 mg 05/20/18 22:00 05/23/18 10:19 Prograf PO 1 mg BID [facility] Administration Vancomycin HCl 125 mg 05/21/18 18:00 05/23/18 18:27 Vancomycin Oral Solution PO 125 mg Q6HPO [facility] Administration ASSESSMENT/PLAN: 78yo M with history of Renal transplant (on immunosuppression; '09), DM, and prior arrests noted with hypoglycemia and resp failure and DVT LLE. 1. Acute Hypoxic Resp Failure Breathing on his own, no acute respiratory distress. Currently on 3 liters nasal cannula, maintain spO2 > 90. 2. Renal H/o Renal Transplant Will monitor Cr- down to 0.9 from 1.2 yesterday Nephrology on board mycophenolate 360 mg po bid tacrolimus 1 mg po bid 3. Altered Mental Status 2/2 hypoglycemia. Resolved, currently aaox3. Glucose has not been in hypoglycemia range while in hospital. 4. DM c/w Insulin sliding scale. Continue w/ bgm 5. Leukocytosis Recent h/o c diff, currently on vanco po 125 mg q6 and merrem 1 gm/dextrose Q8H ID on board, will c/w vanco and meropenem for empiric coverage. FEN NS 1,000ml IV continue to monitor electrolytes Diabetic sodium diet DVT ppx lovenox 70 mg po qid Dispo- Pt being transferred to med-surg Visit type - Emergency Visit Emergency Visit: Yes ED Registration Date: 05/20/18 Care time: The patient presented to the Emergency Department on the above date and was hospitalized for further evaluation of their emergent condition. - New Patient This patient is new to me today: No - Critical Care Critical Care patient: Yes Total Critical Care Time (in minutes): 35 Critical Care Statement: The care of this patient involved high complexity decision making to prevent further life threatening deterioration of the patient 's condition and/or to evaluate & treat vital organ system(s) failure or risk of failure.
[2018-05-23] MEDS: CARVEDILOL 3.125 MG TABLET (FP) PO SCH (21:13)
[2018-05-23] MEDS ORDERED: INSULIN SLIDING SCALE (NOVOLOG) 1 VIAL SQ SCH (22:00)
[2018-05-24] MEDS ORDERED: PT OWN MED DRAWER 7, Y5N ONE ×2 (03:37→11:38)
[2018-05-24] MEDS: MUPIROCIN 2% TOPICAL OINTMENT FOR DECOLONIZATION NS SCH ×2 (03:39→10:15)
[2018-05-24] MEDS: MEROPENEM 1 GM in DEXTROSE 5%-WATER 100 ML IVPB SCH (03:39)
[2018-05-24] MEDS: CHLORHEXIDINE GLUCONATE 4% CLEANSER FOR DECOLONIZATION TP SCH (03:39)
[2018-05-24] MEDS: VANCOMYCIN 250 MG/5 ML ORAL SOLUTION PO SCH ×2 (03:39→06:42)
[2018-05-24 06:12] LABS: BASO % 0.3 % (0-2.0); HEMATOCRIT 33.8 % (35.4-49); HEMOGLOBIN 11.2 GM/dL (11.7-16.9); LYMPH % 16.4 % (8-40); MCH 29.1 pg (25.7-33.7); MCHC 33.3 g/dl (32.0-35.9); MEAN CELL VOLUME 87.3 fl (80-96); MEAN PLT VOLUME 7.4 fl (7.5-11.1); MONO % 7.9 % (3.8-10.2); NEUT % 75.4 % (42.8-82.8); PLATELET COUNT 299 K/MM3 (134-434); RBC 3.87 M/mm3 (4.00-5.60); WHITE BLOOD COUNT 10.3 K/mm3 (4.0-10.0)
[2018-05-24 06:32] LABS: ALBUMIN 2.6 g/dl (3.4-5.0); ALK PHOS 61 U/L (45-117); ANION GAP 8 (8-16); BILIRUBIN,TOTAL 0.3 mg/dL (0.2-1.0); BLOOD UREA NITROGEN 17 mg/dL (7-18); CALCIUM 8.2 mg/dL (8.5-10.1); CHLORIDE 105 mmol/L (98-107); CO2 27 mmol/L (21-32); CREATININE 0.9 mg/dL (0.7-1.3); GLUCOSE,RANDOM 119 mg/dL (74-106); MAGNESIUM 2.1 mg/dL (1.8-2.4); PHOSPHOROUS 2.6 mg/dL (2.5-4.9); POTASSIUM 4.8 mmol/L (3.5-5.1); SGOT/AST 10 U/L (15-37); SGPT/ALT 18 U/L (12-78); SODIUM 140 mmol/L (136-145); TOT PROT 5.2 g/dl (6.4-8.2)
[2018-05-24] MEDS ORDERED: INSULIN (LEVEMIR) 100 UNITS/ML UNITS SQ ONE (06:34)
[2018-05-24] MEDS: HYDROCORTISONE SOD SUCCINATE 100 MG/2 ML VIAL IVPB SCH (06:42)
[2018-05-24] MEDS: INSULIN (LEVEMIR) 100 UNITS/ML UNITS SQ SCH (06:55)
[2018-05-24] MEDS: INSULIN SLIDING SCALE (NOVOLOG) 1 VIAL SQ SCH ×5 (06:55→22:13)
[2018-05-24] MEDS ORDERED: INSULIN (LEVEMIR) 100 UNITS/ML UNITS SQ SCH (07:00)
--- NOTE | 2018-05-24 07:04 | PN ---
Progress Note, Physician Chief Complaint: ID Extubated Alert off pressors Still getting Meropenem & Vancomycin - Current Medication List Current Medications: Active Medications Acetaminophen (Ofirmev Injection -) 1,000 mg IVPB Q6H PRN PRN Reason: FEVER Last Admin: 05/22/18 23:15 Dose: 1,000 mg Carvedilol (Coreg -) 3.125 mg PO BID [facility] Last Admin: 05/23/18 21:13 Dose: 3.125 mg Chlorhexidine Gluconate (Hibiclens For Decolonization -) 1 applic TP HS [facility] Last Admin: 05/24/18 03:39 Dose: 1 applic Enoxaparin Sodium (Lovenox -) 70 mg SQ BID [facility] Last Admin: 05/23/18 21:11 Dose: 70 mg Hydrocortisone Sodium Succinate (Solu-Cortef -) 40 mg IVPB TID [facility] Last Admin: 05/24/18 06:42 Dose: 40 mg Vancomycin HCl (Vancomycin 1 Gm Premix -) 1 gm in 200 mls @ 200 mls/hr IVPB Q24H [facility]; Protocol Last Admin: 05/23/18 16:00 Dose: 200 mls/hr Meropenem 1 gm/ Dextrose 100 mls @ 200 mls/hr IVPB Q8H-IV [facility] Last Admin: 05/24/18 03:39 Dose: 200 mls/hr Insulin Aspart (Novolog Vial Sliding Scale -) 1 vial SQ Q4HPO [facility]; Protocol Last Admin: 05/24/18 06:55 Dose: Not Given Insulin Detemir (Levemir Vial) 20 units SQ AM [facility] Last Admin: 05/24/18 06:55 Dose: Not Given Morphine Sulfate (Morphine Sulfate) 1 mg IVPUSH Q4H PRN PRN Reason: PAIN LEVEL 6-10 Last Admin: 05/22/18 22:51 Dose: 1 mg Mupirocin (Bactroban Ointment (For Decolonization) -) 1 applic NS BID [facility] Stop: 05/25/18 21:59 Last Admin: 05/24/18 03:39 Dose: 1 applic Mycophenolate Sodium (Mycophenolic Acid) 360 mg PO BID [facility] Last Admin: 05/23/18 21:13 Dose: 360 mg Tacrolimus (Prograf) 1 mg PO BID [facility] Last Admin: 05/23/18 21:13 Dose: 1 mg Vancomycin HCl (Vancomycin Oral Solution) 125 mg PO Q6HPO [facility] Last Admin: 05/24/18 06:42 Dose: 125 mg - Objective Vital Signs: Vital Signs Temperature 98.4 F 05/23/18 22:00 Pulse Rate 77 05/24/18 02:00 Respiratory Rate 18 05/24/18 02:00 Blood Pressure 115/41 05/24/18 02:00 O2 Sat by Pulse Oximetry (%) 99 05/22/18 04:44 Constitutional: Yes: No Distress Cardiovascular: Yes: Regular Rate and Rhythm, S1, S2 Respiratory: Yes: WNL, Regular, CTA Bilaterally Gastrointestinal: Yes: Soft. No: Tenderness, Tenderness, Rebound Edema: No Labs: CBC, BMP 05/24/18 05:30 05/24/18 05:30 INR, PTT INR 1.17 (0.82-1.09) H 05/20/18 18:34 Assessment/Plan Microbiology 05/22/18 11:30 Nares - Mrsa Screen - Right MRSA Screen - Final Mr S Aureus 05/22/18 11:30 Nares - Left Nares MRSA Screen - Final Mr S Aureus 05/20/18 21:39 Blood - Peripheral Venous Blood Culture - Preliminary NO GROWTH OBTAINED AFTER 72 HOURS, INCUBATION TO CONTINUE FOR 2 DAYS. 05/20/18 21:39 Blood - Peripheral Venous Blood Culture - Preliminary NO GROWTH OBTAINED AFTER 72 HOURS, INCUBATION TO CONTINUE FOR 2 DAYS. Laboratory Tests 05/20/18 05/24/18 05/24/18 21:39 05:30 05:30 WBC 10.3 H RBC 3.87 L Plt Count 299 BUN 17 Creatinine 0.9 Creat Clearance w eGFR > 60 Urine WBC (Auto) 1 Assessment Episode hypotension hypoglycemia unresponsive initially resulting in respirator failure with pressor requirement Empirically treated for sepsis but now unclear any infection present Cultures positive for MRSA screen noted Plan Will stop all antibiotics especially in view of recent episode C diff infection Discussed with resident Erika SILVA
--- NOTE | 2018-05-24 08:47 | DS ---
Physical Examination Vital Signs: Vital Signs Temperature 98.4 F 05/23/18 22:00 Pulse Rate 90 05/24/18 08:41 Respiratory Rate 18 05/24/18 08:41 Blood Pressure 126/71 05/24/18 08:41 O2 Sat by Pulse Oximetry (%) 99 05/22/18 04:44 Findings/Remarks: 78yo M with history of Renal transplant (on immunosuppression; '09), DM, and prior arrests noted with hypoglycemia and resp failure, and recent admission with DVT found in LLE (started on elqiuis) who comes in for hypoglycemia and respiratory failure. Pt is currently intubated with minimal arousal and HPI provided by chart. Earlier today pt was found to be hypoglycemic to 20 and upon ambulance arrival gave an ampule of D50, however his hypoglycemia was not responsive. At this time he developed respiratory distress and eventually failure so he was intubated in the field under rapid sequence intubation. Pt was brought here for further evaluation. Pt was also found to be hypotensive and pt was started on Dopamine peripherally while a femoral line was placed so that Levophed could be started as well. This am pt on vent awake and responsive - Past Medical History Cardiovascular: Yes: CAD, CHF, HTN, HI, Other Renal/: Yes: Other (S/P Kidney tranplant 2008. 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 coli in past, osteomyelitis of his finger) Endocrine: Yes: Diabetes Mellitus - Past Surgical History Past Surgical History: Yes: AV Fistula/Graft (right upper arm, non working), CABG, Kidney Transplant (right 2008) Cardiovascular: Yes: S1, S2 Respiratory: Yes: Regular, CTA Bilaterally Gastrointestinal: Yes: Normal Bowel Sounds, Soft Neurological: Yes: Alert, Oriented Labs: CBC, BMP 05/24/18 05:30 05/24/18 05:30 Discharge Summary Reason For Visit: HYPOGLYCEMIA,HYPOTENSION Current Active Problems Collapse (Acute) Hypoglycemia (Acute) Hypotension (Acute) Sepsis (Acute) Shock (Acute) Transplant recipient (Acute) IDDM (insulin dependent diabetes mellitus) (Chronic) Hospital Course: - Problems (1) Acute respiratory failure Assessment/Plan: -May have been due to hypoglycemia-aspiration--pna -resolved -transfer out of icu -Extubated -follow labs -pulm/cardio noted Code(s): Blaine96.00 - ACUTE RESPIRATORY FAILURE, UNSP W HYPOXIA OR HYPERCAPNIA (2) Hypoglycemia Assessment/Plan: -on insulin -bgm -endo noted-- -off clinimex--eating Code(s): E16.2 - HYPOGLYCEMIA, UNSPECIFIED (3) Hypotension Assessment/Plan: -off pressers Code(s): I95.9 - HYPOTENSION, UNSPECIFIED Qualifiers: Hypotension type: unspecified hypotension type Qualified Code(s): I95.9 - Hypotension, unspecified (4) IDDM (insulin dependent diabetes mellitus) Assessment/Plan: -insulin per endo -monitor closely Code(s): E11.9 - TYPE 2 DIABETES MELLITUS WITHOUT COMPLICATIONS; Z79.4 - CUSTODIAL (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 OF INSULIN (5) Sepsis -off abx per id Code(s): A41.9 - SEPSIS, UNSPECIFIED ORGANISM (6) Transplant recipient Assessment/Plan: steroid stress dosing since he has been on steroids--decrease cortef 40 q 8 - now on po--taper as outpatient prograf Code(s): Z94.89 - OTHER TRANSPLANTED ORGAN AND TISSUE STATUS Condition: Stable - Instructions Referrals: Gt Villela MD [Primary Care Provider] - 1 Week - Home Medications Comprehensive Discharge Medication List: Ambulatory Orders Acetaminophen [Tylenol .Regular Strength -] 650 mg PO Q4H PRN tablet 11/29/17 Albuterol 2.5/Ipratropium 0.5 [Duoneb -] 1 amp NEB QID 02/08/18 Amlodipine Besylate [Norvasc -] 10 mg PO DAILY #30 tablet 05/19/18 Apixaban [Eliquis] 5 mg PO BID #60 tablet 05/19/18 Aspirin [Jena Chewable Aspirin] 81 mg PO HS #30 tab.chew 05/19/18 Atorvastatin Ca [Lipitor] 80 mg PO HS #60 tablet 05/19/18 Carvedilol [Coreg -] 25 mg PO BID #60 tablet 05/19/18 Duloxetine HCl [Cymbalta] 20 mg PO BID #60 capsule. 05/19/18 Magnesium Oxide [Mag-Ox -] 400 mg PO BID tablet 05/19/18 Mycophenolate Sodium [Mycophenolic Acid] 360 mg PO BID #60 tablet. 05/19/18 Tacrolimus 1 mg PO BID #60 capsule 05/19/18 Tamsulosin HCl [Flomax] 0.4 mg PO HS #30 cap.er.24h 05/19/18 hydrALAZINE HCL [Apresoline -] 25 mg PO BID #60 tablet 05/19/18 Insulin (Levemir) [Levemir Vial] 20 units SQ AM units 05/24/18 predniSONE [Deltasone -] 20 mg PO DAILY #30 tablet 05/24/18
[2018-05-24] MEDS: APIXABAN 5 MG TABLET PO SCH ×2 (10:13→21:18)
[2018-05-24] MEDS: CARVEDILOL 3.125 MG TABLET (FP) PO SCH ×2 (10:13→21:18)
[2018-05-24] MEDS: predniSONE 20 MG TABLET (UD) PO SCH (10:13)
[2018-05-24] MEDS: MYCOPHENOLATE SODIUM 360 MG TABLET.DR PO SCH ×2 (10:14→21:18)
[2018-05-24] MEDS: TACROLIMUS ANHYDROUS 1 MG CAPSULE PO SCH ×2 (10:14→22:14)
--- NOTE | 2018-05-24 10:32 | PN ---
Progress Note (short form) - Note Progress Note: RENAL Pt seen and examined while on wheelchair appears comfortable denies complaints Last Vital Signs Temp Pulse Resp BP Pulse Ox 98.4 F 90 18 126/71 94 L 05/23/18 22:00 05/24/18 08:41 05/24/18 08:41 05/24/18 08:41 05/24/18 08:58 lungs clear cvs s1s2 rr +YISSEL abd soft ext +edema neuro a+ox3 CBC, BMP 05/24/18 05:30 05/24/18 05:30 Current Medications Generic Name Dose Route Start Last Admin Trade Name Freq PRN Reason Stop Dose Admin Acetaminophen 1,000 mg 05/21/18 05:09 05/22/18 23:15 Ofirmev Injection - IVPB 1,000 mg Q6H PRN Administration FEVER Apixaban 5 mg 05/24/18 10:00 05/24/18 10:13 Eliquis - PO 5 mg BID [facility] Administration Carvedilol 3.125 mg 05/23/18 22:00 05/24/18 10:13 Coreg - PO 3.125 mg BID [facility] Administration Chlorhexidine Gluconate 1 applic 05/20/18 22:00 05/24/18 03:39 Hibiclens For Decolonization - TP 1 applic HS [facility] Administration Insulin Aspart 1 vial 05/23/18 21:15 05/24/18 06:55 Novolog Vial Sliding Scale - SQ Not Given Q4HPO [facility] Protocol Insulin Detemir 20 units 05/24/18 07:00 05/24/18 06:55 Levemir Vial SQ Not Given AM [facility] Mupirocin 1 applic 05/20/18 22:00 05/24/18 10:15 Bactroban Ointment (For Decolonization) - NS 05/25/18 21:59 Not Given BID [facility] Mycophenolate Sodium 360 mg 05/22/18 22:00 05/24/18 10:14 Mycophenolic Acid PO 360 mg BID [facility] Administration Prednisone 20 mg 05/24/18 10:00 05/24/18 10:13 Deltasone - PO 20 mg DAILY [facility] Administration Tacrolimus 1 mg 05/20/18 22:00 05/24/18 10:14 Prograf PO 1 mg BID [facility] Administration IMPRESSION s/p shock of unclear etiology. Seems to have responded to steroids however since his BP improved after initiation of stress steroids s/p kidney transplant which seems stable cultures of urine and blood neg mrsa in nares PLAN agree with holding antibiotics steroid taper but would probably not go below 10 mg continue tacro and mycophenolate MV
[2018-05-24] MEDS ORDERED: INSULIN (NOVOLOG) ASPART 100 UNITS/ML 10ML VIAL ONE (11:33)
[2018-05-24 14:08] LABS: ANISOCYTOSIS 0; MACROCYTOSIS 0; PLATELET ESTIMATE NORMAL
[2018-05-24] MEDS ORDERED: ACETAMINOPHEN 325 MG TABLET (FP) PO PRN (19:43)
[2018-05-24] MEDS ORDERED: ALBUTEROL SO4 2.5/IPRATROPIUM 0.5 INH SOL 3 ML VIAL.NEB. NEB SCH (20:00)
[2018-05-24] MEDS ORDERED: CARVEDILOL 25 MG TABLET (FP) PO SCH (22:00)
[2018-05-24] MEDS ORDERED: ATORVASTATIN CA 80 MG TABLET (FP) PO SCH (22:00)
[2018-05-24] MEDS ORDERED: MAGNESIUM OXIDE 400 MG TABLET (FP) PO SCH (22:00)
[2018-05-24] MEDS ORDERED: MYCOPHENOLATE SODIUM 360 MG TABLET.DR PO SCH (22:00)
[2018-05-24] MEDS ORDERED: hydrALAZINE HCL 25 MG TABLET (FP) PO SCH (22:00)
[2018-05-24] MEDS ORDERED: DULoxetine HCL 20 MG CAPSULE.DR (FP) PO SCH (22:00)
[2018-05-25] MEDS: INSULIN SLIDING SCALE (NOVOLOG) 1 VIAL SQ SCH ×6 (01:24→22:22)
[2018-05-25] MEDS: INSULIN (LEVEMIR) 100 UNITS/ML UNITS SQ SCH (06:06)
[2018-05-25] MEDS ORDERED: amLODIPine BESYLATE 10 MG TABLET (FP) PO SCH (10:00)
--- NOTE | 2018-05-25 10:26 | PN ---
Progress Note, Physician Chief Complaint: Respiratory distress Hypoglycemia History of Present Illness: NAD Alert, able to tell me the year, but not the day or date. Knows he's in the hospital Spoke to daughter Pt lives with , who is also sick. Doesn't have any other help at home. Daughters try to help but they live far. Pt is a high risk for fall, Hypoglycemia and hypotension - Current Medication List Current Medications: Active Medications Acetaminophen (Ofirmev Injection -) 1,000 mg IVPB Q6H PRN PRN Reason: FEVER Last Admin: 05/22/18 23:15 Dose: 1,000 mg Apixaban (Eliquis -) 5 mg PO BID [facility] Last Admin: 05/24/18 21:18 Dose: 5 mg Carvedilol (Coreg -) 3.125 mg PO BID [facility] Last Admin: 05/24/18 21:18 Dose: 3.125 mg Insulin Aspart (Novolog Vial Sliding Scale -) 1 vial SQ Q4HPO [facility]; Protocol Last Admin: 05/25/18 06:06 Dose: Not Given Insulin Detemir (Levemir Vial) 20 units SQ AM [facility] Last Admin: 05/25/18 06:06 Dose: 20 units Mycophenolate Sodium (Mycophenolic Acid) 360 mg PO BID [facility] Last Admin: 05/24/18 21:18 Dose: 360 mg Prednisone (Deltasone -) 20 mg PO DAILY [facility] Last Admin: 05/24/18 10:13 Dose: 20 mg Tacrolimus (Prograf) 1 mg PO BID [facility] Last Admin: 05/24/18 22:14 Dose: 1 mg - Objective Vital Signs: Vital Signs Temperature 98.4 F 05/25/18 09:28 Pulse Rate 91 H 05/25/18 09:28 Respiratory Rate 18 05/25/18 09:28 Blood Pressure 180/76 05/25/18 09:28 O2 Sat by Pulse Oximetry (%) 96 05/24/18 21:00 Constitutional: Yes: Well Nourished, No Distress, Calm Cardiovascular: Yes: Regular Rate and Rhythm Respiratory: Yes: Regular Gastrointestinal: Yes: Normal Bowel Sounds, Soft Musculoskeletal: Yes: Muscle Weakness Edema: Yes (LLE 2/2 Chronic DVT) Peripheral Pulses WNL: Yes Neurological: Yes: Alert Psychiatric: Yes: Alert Labs: CBC, BMP 05/24/18 05:30 05/24/18 05:30 INR, PTT INR 1.17 (0.82-1.09) H 05/20/18 18:34 Problem List - Problems (1) Hypoglycemia Assessment/Plan: -Endocrinology on board -[facility] ACHS -diabetic diet Code(s): E16.2 - HYPOGLYCEMIA, UNSPECIFIED (2) CHUCK (acute kidney injury) Code(s): N17.9 - ACUTE KIDNEY FAILURE, UNSPECIFIED (3) Acute respiratory failure Assessment/Plan: -On room air -Breathing comfortably Code(s): J96.00 - ACUTE RESPIRATORY FAILURE, UNSP W HYPOXIA OR HYPERCAPNIA (4) Left leg DVT Assessment/Plan: Chronic -On Eliquis -Has IVC filter Code(s): I82.402 - ACUTE EMBOLISM AND THOMBOS UNSP DEEP VEINS OF L LOW EXTREM Qualifiers: Affected thrombotic vein of extremity: other lower extremity vein Chronicity: acute Qualified Code(s): I82.492 - Acute embolism and thrombosis of other specified deep vein of left lower extremity Assessment/Plan see problem list Gait Unsteady, has stairs at home, last discharge,as per daughter, almost fell on the stairs, at home going up the stairs Physical therapy evaluation
[2018-05-25] MEDS: APIXABAN 5 MG TABLET PO SCH ×2 (11:37→22:21)
[2018-05-25] MEDS: predniSONE 20 MG TABLET (UD) PO SCH (11:37)
[2018-05-25] MEDS: TACROLIMUS ANHYDROUS 1 MG CAPSULE PO SCH ×2 (11:37→22:21)
[2018-05-25] MEDS: CARVEDILOL 3.125 MG TABLET (FP) PO SCH ×2 (11:37→22:21)
[2018-05-25] MEDS: MYCOPHENOLATE SODIUM 360 MG TABLET.DR PO SCH ×2 (11:38→22:21)
[2018-05-25] MEDS ORDERED: FUROSEMIDE 20 MG TABLET (FP) PO ONE (12:57)
--- NOTE | 2018-05-25 12:57 | PN ---
Progress Note, Physician History of Present Illness: Pt seen and examined at bedside. He is awake and appears comfortable. Pt remains confused. - Current Medication List Current Medications: Active Medications Acetaminophen (Ofirmev Injection -) 1,000 mg IVPB Q6H PRN PRN Reason: FEVER Last Admin: 05/22/18 23:15 Dose: 1,000 mg Apixaban (Eliquis -) 5 mg PO BID [facility] Last Admin: 05/25/18 11:37 Dose: 5 mg Carvedilol (Coreg -) 3.125 mg PO BID [facility] Last Admin: 05/25/18 11:37 Dose: 3.125 mg Insulin Aspart (Novolog Vial Sliding Scale -) 1 vial SQ Q4HPO [facility]; Protocol Last Admin: 05/25/18 06:06 Dose: Not Given Insulin Detemir (Levemir Vial) 20 units SQ AM [facility] Last Admin: 05/25/18 06:06 Dose: 20 units Mycophenolate Sodium (Mycophenolic Acid) 360 mg PO BID [facility] Last Admin: 05/25/18 11:38 Dose: 360 mg Prednisone (Deltasone -) 20 mg PO DAILY [facility] Last Admin: 05/25/18 11:37 Dose: 20 mg Tacrolimus (Prograf) 1 mg PO BID [facility] Last Admin: 05/25/18 11:37 Dose: 1 mg - Objective Vital Signs: Vital Signs Temperature 98.4 F 05/25/18 09:28 Pulse Rate 91 H 05/25/18 09:28 Respiratory Rate 18 05/25/18 09:28 Blood Pressure 180/76 05/25/18 09:28 O2 Sat by Pulse Oximetry (%) 96 05/24/18 21:00 Constitutional: Yes: Calm Eyes: Yes: Conjunctiva Clear HENT: Yes: Atraumatic Neck: Yes: Supple Cardiovascular: Yes: S1, S2 Gastrointestinal: Yes: WNL Genitourinary: Yes: WNL, Other (graft soft and non tender) Musculoskeletal: Yes: WNL Edema: Yes Edema: LLE: 1+, RLE: Trace Neurological: Yes: Confusion Labs: CBC, BMP 05/24/18 05:30 05/24/18 05:30 INR, PTT INR 1.17 (0.82-1.09) H 05/20/18 18:34 Problem List - Problems (1) Sepsis Code(s): A41.9 - SEPSIS, UNSPECIFIED ORGANISM (2) Transplant recipient Code(s): Z94.89 - OTHER TRANSPLANTED ORGAN AND TISSUE STATUS (3) IDDM (insulin dependent diabetes mellitus) Code(s): E11.9 - TYPE 2 DIABETES MELLITUS WITHOUT COMPLICATIONS; Z79.4 - DETENTION (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 OF INSULIN Assessment/Plan Current Medications Generic Name Dose Route Start Last Admin Trade Name [place]field PRN Reason Stop Dose Admin Acetaminophen 1,000 mg 05/21/18 05:09 05/22/18 23:15 Ofirmev Injection - IVPB 1,000 mg Q6H PRN Administration FEVER Apixaban 5 mg 05/24/18 10:00 05/25/18 11:37 Eliquis - PO 5 mg BID [facility] Administration Carvedilol 3.125 mg 05/23/18 22:00 05/25/18 11:37 Coreg - PO 3.125 mg BID [facility] Administration Insulin Aspart 1 vial 05/23/18 21:15 05/25/18 06:06 Novolog Vial Sliding Scale - SQ Not Given Q4HPO [facility] Protocol Insulin Detemir 20 units 05/24/18 07:00 05/25/18 06:06 Levemir Vial SQ 20 units AM [facility] Administration Mycophenolate Sodium 360 mg 05/22/18 22:00 05/25/18 11:38 Mycophenolic Acid PO 360 mg BID [facility] Administration Prednisone 20 mg 05/24/18 10:00 05/25/18 11:37 Deltasone - PO 20 mg DAILY [facility] Administration Tacrolimus 1 mg 05/20/18 22:00 05/25/18 11:37 Prograf PO 1 mg BID [facility] Administration Impression 1. CKD 2. kidney transplant 3. DM 4. hx of syncope 5. HTN 6. hyperlipidemia 7. CHF 8. acute resp failure 9. Hx DVT - pt has IVC filter Plan - renal function is stable - will give 20 mg of lasix - repeat labs in am - cont prograf - cont mycophenolate - pt on steroids, taper down to [address] Perez
[2018-05-25] MEDS ORDERED: PT OWN MED DRAWER 7, Y5N ONE ×3 (14:03→21:34)
[2018-05-25 15:45] VITALS: BMI 28.0
[2018-05-26] MEDS: INSULIN SLIDING SCALE (NOVOLOG) 1 VIAL SQ SCH ×4 (03:02→17:12)
[2018-05-26] MEDS: INSULIN (LEVEMIR) 100 UNITS/ML UNITS SQ SCH (06:13)
[2018-05-26 07:26] LABS: CHLORIDE 102 mmol/L (98-107); POTASSIUM 4.5 mmol/L (3.5-5.1); SODIUM 139 mmol/L (136-145)
[2018-05-26 07:41] LABS: ANION GAP 8 (8-16); BLOOD UREA NITROGEN 20 mg/dL (7-18); CALCIUM 8.2 mg/dL (8.5-10.1); CO2 29 mmol/L (21-32); CREATININE 0.9 mg/dL (0.7-1.3); GLUCOSE,RANDOM 114 mg/dL (74-106)
[2018-05-26] MEDS ORDERED: PT OWN MED DRAWER 7, Y5N ONE (08:45)
[2018-05-26] MEDS: MYCOPHENOLATE SODIUM 360 MG TABLET.DR PO SCH (09:32)
[2018-05-26] MEDS: APIXABAN 5 MG TABLET PO SCH (09:32)
[2018-05-26] MEDS: CARVEDILOL 3.125 MG TABLET (FP) PO SCH (09:32)
[2018-05-26] MEDS: predniSONE 20 MG TABLET (UD) PO SCH (09:32)
[2018-05-26] MEDS: TACROLIMUS ANHYDROUS 1 MG CAPSULE PO SCH (09:33)
--- NOTE | 2018-05-26 11:18 | PN ---
Progress Note, Physician Chief Complaint: Respiratory distress Hypoglycemia History of Present Illness: NAD Alert, able to tell me the year, but not the day or date. Knows he's in the hospital Spoke to daughter Pt lives with , who is also sick. Doesn't have any other help at home. Daughters try to help but they live far. Pt is a high risk for fall, Hypoglycemia and hypotension - Current Medication List Current Medications: Active Medications Acetaminophen (Ofirmev Injection -) 1,000 mg IVPB Q6H PRN PRN Reason: FEVER Last Admin: 05/22/18 23:15 Dose: 1,000 mg Apixaban (Eliquis -) 5 mg PO BID [facility] Last Admin: 05/26/18 09:32 Dose: 5 mg Carvedilol (Coreg -) 3.125 mg PO BID [facility] Last Admin: 05/26/18 09:32 Dose: 3.125 mg Insulin Aspart (Novolog Vial Sliding Scale -) 1 vial SQ Q4HPO [facility]; Protocol Last Admin: 05/26/18 06:14 Dose: Not Given Insulin Detemir (Levemir Vial) 20 units SQ AM [facility] Last Admin: 05/26/18 06:13 Dose: 20 units Mycophenolate Sodium (Mycophenolic Acid) 360 mg PO BID [facility] Last Admin: 05/26/18 09:32 Dose: 360 mg Prednisone (Deltasone -) 20 mg PO DAILY [facility] Last Admin: 05/26/18 09:32 Dose: 20 mg Tacrolimus (Prograf) 1 mg PO BID [facility] Last Admin: 05/26/18 09:33 Dose: 1 mg - Objective Vital Signs: Vital Signs Temperature 98.4 F 05/26/18 09:30 Pulse Rate 81 05/26/18 09:30 Respiratory Rate 18 05/26/18 09:30 Blood Pressure 165/74 05/26/18 09:30 O2 Sat by Pulse Oximetry (%) 97 05/25/18 21:00 Constitutional: Yes: Well Nourished, No Distress, Calm Cardiovascular: Yes: Regular Rate and Rhythm Respiratory: Yes: Regular Gastrointestinal: Yes: Normal Bowel Sounds, Soft Musculoskeletal: Yes: WNL Extremities: Yes: WNL Edema: No Peripheral Pulses WNL: Yes Neurological: Yes: Alert Psychiatric: Yes: Alert Labs: CBC, BMP 05/24/18 05:30 05/26/18 06:30 INR, PTT INR 1.17 (0.82-1.09) H 05/20/18 18:34 Problem List - Problems (1) Hypoglycemia Assessment/Plan: -Endocrinology on board -[facility] ACHS -diabetic diet Code(s): E16.2 - HYPOGLYCEMIA, UNSPECIFIED (2) CHUCK (acute kidney injury) Code(s): N17.9 - ACUTE KIDNEY FAILURE, UNSPECIFIED (3) Acute respiratory failure Assessment/Plan: -On room air -Breathing comfortably Code(s): J96.00 - ACUTE RESPIRATORY FAILURE, UNSP W HYPOXIA OR HYPERCAPNIA (4) Left leg DVT Assessment/Plan: Chronic -On Eliquis -Has IVC filter Code(s): I82.402 - ACUTE EMBOLISM AND THOMBOS UNSP DEEP VEINS OF L LOW EXTREM Qualifiers: Affected thrombotic vein of extremity: other lower extremity vein Chronicity: acute Qualified Code(s): I82.492 - Acute embolism and thrombosis of other specified deep vein of left lower extremity
[2018-05-26] MEDS ORDERED: INSULIN (LEVEMIR) 100 UNITS/ML UNITS SQ SCH (13:29)
[2018-05-26 15:42] VITALS: BP 138/76; PULSE 86; TEMP 98.7
--- NOTE | 2018-05-26 16:08 | PN ---
Progress Note, Physician History of Present Illness: Pt seen and examined at bedside. He denies fevers or chills. He is awake and appears comfortable. - Current Medication List Current Medications: Active Medications Acetaminophen (Ofirmev Injection -) 1,000 mg IVPB Q6H PRN PRN Reason: FEVER Last Admin: 05/22/18 23:15 Dose: 1,000 mg Apixaban (Eliquis -) 5 mg PO BID [facility] Last Admin: 05/26/18 09:32 Dose: 5 mg Carvedilol (Coreg -) 3.125 mg PO BID [facility] Last Admin: 05/26/18 09:32 Dose: 3.125 mg Insulin Aspart (Novolog Vial Sliding Scale -) 1 vial SQ Q4HPO [facility]; Protocol Last Admin: 05/26/18 15:03 Dose: Not Given Insulin Detemir (Levemir Vial) 16 units SQ AM [facility] Mycophenolate Sodium (Mycophenolic Acid) 360 mg PO BID [facility] Last Admin: 05/26/18 09:32 Dose: 360 mg Prednisone (Deltasone -) 20 mg PO DAILY [facility] Last Admin: 05/26/18 09:32 Dose: 20 mg Tacrolimus (Prograf) 1 mg PO BID [facility] Last Admin: 05/26/18 09:33 Dose: 1 mg - Objective Vital Signs: Vital Signs Temperature 98.7 F 05/26/18 15:38 Pulse Rate 86 05/26/18 15:38 Respiratory Rate 20 05/26/18 15:38 Blood Pressure 138/76 05/26/18 15:38 O2 Sat by Pulse Oximetry (%) 97 05/25/18 21:00 Constitutional: Yes: Calm Eyes: Yes: Conjunctiva Clear HENT: Yes: Atraumatic Neck: Yes: Supple Cardiovascular: Yes: S1, S2 Respiratory: Yes: CTA Bilaterally Gastrointestinal: Yes: Normal Bowel Sounds, Soft Genitourinary: Yes: WNL, Other (graft soft) Musculoskeletal: Yes: WNL Edema: Yes Neurological: Yes: Confusion Labs: CBC, BMP 05/24/18 05:30 05/26/18 06:30 INR, PTT INR 1.17 (0.82-1.09) H 05/20/18 18:34 Problem List - Problems (1) Sepsis Code(s): A41.9 - SEPSIS, UNSPECIFIED ORGANISM (2) Transplant recipient Code(s): Z94.89 - OTHER TRANSPLANTED ORGAN AND TISSUE STATUS (3) IDDM (insulin dependent diabetes mellitus) Code(s): E11.9 - TYPE 2 DIABETES MELLITUS WITHOUT COMPLICATIONS; Z79.4 - CORRECTION (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 OF INSULIN Assessment/Plan Current Medications Generic Name Dose Route Start Last Admin Trade Name Freq PRN Reason Stop Dose Admin Acetaminophen 1,000 mg 05/21/18 05:09 05/22/18 23:15 Ofirmev Injection - IVPB 1,000 mg Q6H PRN Administration FEVER Apixaban 5 mg 05/24/18 10:00 05/26/18 09:32 Eliquis - PO 5 mg BID [facility] Administration Carvedilol 3.125 mg 05/23/18 22:00 05/26/18 09:32 Coreg - PO 3.125 mg BID [facility] Administration Insulin Aspart 1 vial 05/23/18 21:15 05/26/18 15:03 Novolog Vial Sliding Scale - SQ Not Given Q4HPO [facility] Protocol Insulin Detemir 16 units 05/26/18 13:29 Levemir Vial SQ AM [facility] Mycophenolate Sodium 360 mg 05/22/18 22:00 05/26/18 09:32 Mycophenolic Acid PO 360 mg BID [facility] Administration Prednisone 20 mg 05/24/18 10:00 05/26/18 09:32 Deltasone - PO 20 mg DAILY [facility] Administration Tacrolimus 1 mg 05/20/18 22:00 05/26/18 09:33 Prograf PO 1 mg BID [facility] Administration Impression 1. CKD 2. kidney transplant 3. DM 4. hx of syncope 5. HTN 6. hyperlipidemia 7. CHF 8. acute resp failure 9. Hx DVT - pt has IVC filter Plan - cont prograf, mycophenylate and prednisone for transplant - renal function stable - can see in office - if steroids tapered further do not taper to less than [address] Perez
--- NOTE | 2018-05-26 17:58 | PN ---
Progress Note, [employer] - Note Progress Note: Pt seen as a follow to dysphagia eval with OB[employer]S CONSERVATOR Javan Weir. Recommendations: pureed / nectar thicken liquids. Chart review indicates pt is consuming 100% of meals over past 24 hours. Continue current diet of puree and nectar thicken liquids at this time. Results given to lost charge card clerk and to pcp via chart.
== END 2018-05-26 18:19 | disposition home health service (06) | DRG 637 ==
LOC: JER 18:23 → JERBED 20:55 → JICU 05-21 14:44 → J8W 05-24 09:13
PROVIDERS: ADMIT Internal Medicine; ATTEND Family Medicine
PROC: 0BH17EZ Insertion of Endotracheal Airway into Trachea, Via Natural or Artificial Opening (ICD-10-PCS; principal; 2018-05-20)
PROC: 5A1945Z Respiratory Ventilation, 24-96 Consecutive Hours (ICD-10-PCS; 2018-05-20)
PROC: 06HM33Z Insertion of Infusion Device into Right Femoral Vein, Percutaneous Approach (ICD-10-PCS; 2018-05-20)
PROC: B51 Imaging, Veins, Fluoroscopy (ICD-10-PCS; 2018-05-20)
DX: E11.649 Type 2 diabetes mellitus with hypoglycemia without coma (principal); J96.01 Acute respiratory failure with hypoxia; R57.0 Cardiogenic shock; Z94.0 Kidney transplant status; I45.2 Bifascicular block; I25.10 Atherosclerotic heart disease of native coronary artery without angina pectoris; I82.502 Chronic embolism and thrombosis of unspecified deep veins of left lower extremity; I95.9 Hypotension, unspecified; I45.81 Long QT syndrome; Z79.4 Long term (current) use of insulin; Z79.01 Long term (current) use of anticoagulants; Z95.1 Presence of aortocoronary bypass graft; I25.2 Old myocardial infarction; I73.9 Peripheral vascular disease, unspecified; I11.0 Hypertensive heart disease with heart failure; I50.9 Heart failure, unspecified; Z86.74 Personal history of sudden cardiac arrest; J44.9 Chronic obstructive pulmonary disease, unspecified; E78.5 Hyperlipidemia, unspecified
CPT/HCPCS: 36415; 36600; 71045-TC-FY; 80048; 80053; 80197; 81003; 81015; 82375; 82550; 82803; 82962; 83050; 83605; 83735; 83880; 84100; 84484; 85025; 85027; 85610; 86850; 86900; 86901; 87040; 87070; 87077; 87081; 87086; 87205; 87899; 93005; 93010; 94002; 94640; 97116-GP; 97161-GP; 99285-25; J0131; J7030; J7620

== ENCOUNTER 2018-09-04 16:16 | Inpatient (IN) | payer OTHER ==
[2018-09-04] MEDS ORDERED: RAPID SEQUENCE INTUBATION KIT NR ONE (16:33)
[2018-09-04] MEDS ORDERED: PROPOFOL 1,000,000 MCG/100 ML VIAL ONE (17:02)
[2018-09-04 17:07] LABS: BASO % 1.4 % (0-2.0); EOS % 1.6 % (0-4.5); LYMPH % 31.5 % (8-40); MCH 28.4 pg (25.7-33.7); MCHC 31.8 g/dl (32.0-35.9); MEAN CELL VOLUME 89.1 fl (80-96); MEAN PLT VOLUME 9.1 fl (7.5-11.1); MONO % 6.1 % (3.8-10.2); NEUT % 59.4 % (42.8-82.8); PLATELET COUNT 191 K/MM3 (134-434); RBC 4.94 M/mm3 (4.00-5.60); RDW 17.2 % (11.9-15.9); WHITE BLOOD COUNT 12.9 K/mm3 (4.0-10.0)
--- NOTE | 2018-09-04 17:09 | PDOC ---
Attending Attestation - Physicial Exam PE: 09/04/18 18:06 agree with resident exam. patient is writhing on the stretcher, non verbal, not following commands. Moving all extremites with good strength. R pupil pinpoint, L pupil 3 mm and reactive to light. + gurgling respirations and diffuse wheezing. + fistula in R arm, sternotomy scar. 09/04/18 18:12 - Critical Care Time Total Critical Care Time: 45 Critical Care Statement: The care of this patient involved high complexity decision making to prevent further life threatening deterioration of the patient 's condition and/or to evaluate & treat vital organ system(s) failure or risk of failure. - Medical Decision Making 09/04/18 18:14 Pt presents to the ED with altered mental status, and gurgling respirations. Intubated on arrival to the ED for airway protection. Hypothermic and diaphoretic. Differential includes sepsis, electrolyte disturbance, intracranial bleed or other space occupying lesion. Will check labs and CXR, emergent CT head, start broad spectrum antibiotics and admit to ICU. <Ermelinda Lynch - Last Filed: 09/04/18 18:17> - Resident Resident Name: Gena Dumont - ED Attending Attestation I have performed the following: I have examined & evaluated the patient, The case was reviewed & discussed with the resident, I agree w/resident's findings & plan, Exceptions are as noted - HPI HPI: 09/04/18 17:54 The patient is a 78 year old male, with a significant past medical history of IDDM, HTN, PAD, CAD s/p SC (s/p CABG), CHF, s/p Renal Transplant (on immunosuppressants), Dialysis (stopped 2008, non working RUE), and multiple intubations who presents to the emergency department unresponsive. As per EMS, his last known well was 2:30pm when they left him at home to run errands. Upon their arrival, he was diaphoretic and incontinent. They tested his blood glucose level using an at home machine and it read low. Upon EMSs arrival, they tested his blood glucose and it was 27. He was given D10 on recheck his level was 31. He was then given another bag of D10 and his blood glucose level was raised to 400. While en route, the patient was given 2 of Narcan and remained unresponsive. Upon his arrival to the ER, the patient was not alert and oriented, unable to answer questions. His blood glucose level in the ER was 200. Patient was given 20 of Etomidate at 4:32 pm and 100 of Rocuronium at 4:34 pm. The patient was intubated at 4:48 pm. Allergies: NKDA Primary Care Physician: Dr. Villela <Steffany Do - Last Filed: 09/04/18 18:18> Attestations - Attestations 09/04/18 17:56 Documentation prepared by Steffany Do, acting as medical staff coordinator for Ermelinda Lynch MD. <Steffany Do - Last Filed: 09/04/18 18:18>
[2018-09-04 17:10] LABS: VENOUS PC02 51.7 mmHg (38-52); VENOUS PH 7.28 (7.32-7.42)
[2018-09-04] MEDS: PROPOFOL 1,000,000 MCG/100 ML VIAL IVPB SCH (17:10)
[2018-09-04 17:28] LABS: INR 1.01 (0.83-1.09); PROTHROMBIN TIME (PATIENT) 11.9 SEC (9.7-13.0)
[2018-09-04 17:30] LABS: ACTIVATED PTT 18.6 SECONDS (25.2-36.5)
--- NOTE | 2018-09-04 17:31 | PDOC ---
History of Present Illness - General Chief Complaint: Altered Mental Status Stated Complaint: Altered Mental Status Time Seen by Provider: 09/04/18 17:08 - History of Present Illness Initial Comments: 78 year old male with PMH of Renal transplant (on immunosuppression; '09), DM, and prior arrests noted with hypoglycemia and resp failure, recent DVT (LLE on elqiuis) who comes in for hypoglycemia and agitation. Per EMS they arrived on the scene and he had a FS of 21 which came up to 421 after some D50, however he was still agitated and uncooperative. Patient presented to our ED slightly agitated, incoherent, and uncooperative. 09/04/18 18:30 Past History - Past Medical History Allergies/Adverse Reactions: Allergies Allergy/AdvReac Type Severity Reaction Status Date / Time No Known Drug Allergies Allergy Verified 05/20/18 18:32 Home Medications: Ambulatory Orders Acetaminophen [Tylenol .Regular Strength -] 650 mg PO Q4H PRN tablet 11/29/17 Albuterol 2.5/Ipratropium 0.5 [Duoneb -] 1 amp NEB QID 02/08/18 Amlodipine Besylate [Norvasc -] 10 mg PO DAILY #30 tablet 05/19/18 Apixaban [Eliquis] 5 mg PO BID #60 tablet 05/19/18 Aspirin [Jena Chewable Aspirin] 81 mg PO HS #30 tab.chew 05/19/18 Atorvastatin Ca [Lipitor] 80 mg PO HS #60 tablet 05/19/18 Carvedilol [Coreg -] 25 mg PO BID #60 tablet 05/19/18 Duloxetine HCl [Cymbalta] 20 mg PO BID #60 capsule. 05/19/18 Magnesium Oxide [Mag-Ox -] 400 mg PO BID tablet 05/19/18 Mycophenolate Sodium [Mycophenolic Acid] 360 mg PO BID #60 tablet. 05/19/18 Tacrolimus 1 mg PO BID #60 capsule 05/19/18 Tamsulosin HCl [Flomax] 0.4 mg PO HS #30 cap.er.24h 05/19/18 hydrALAZINE HCL [Apresoline -] 25 mg PO BID #60 tablet 05/19/18 predniSONE [Deltasone -] 20 mg PO DAILY #30 tablet 05/24/18 Apixaban [Eliquis -] 5 mg PO BID #60 tablet 05/26/18 Insulin Detemir [Levemir Flextouch] 16 unit SQ DAILY #1 insuln.pen 05/26/18 Anemia: No Asthma: No Cancer: No Cardiac Disorders: Yes (cardiac arrest, CABG) COPD: Yes CHF: Yes Diabetes: Yes (IDDM) Dialysis: Yes (stopped 2008) HTN: Yes Hypercholesterolemia: Yes Thyroid Disease: No - Surgical History Cardiac Surgery: Yes (open heart surgery) Neurologic Surgery: No - Immunization History Immunization Up to Date: Yes - Suicide/Smoking/Psychosocial Hx Smoking Status: No Smoking History: Unknown if ever smoked Have you smoked in the past 12 months: No Number of Cigarettes Smoked Daily: 0 'Breaking Loose' booklet given: 04/22/18 Hx Alcohol Use: No Drug/Substance Use Hx: No Substance Use Type: None Hx Substance Use Treatment: No Review of Systems - Review of Systems Able to Perform ROS?: No (delerius) *Physical Exam - Vital Signs Last Vital Signs Temp Pulse Resp BP Pulse Ox 84 28 H 96/84 100 09/04/18 16:20 09/04/18 16:20 09/04/18 16:20 09/04/18 16:20 - Physical Exam General Appearance: Yes: Nourished, Appropriately Dressed, Apparent Distress, Mild Distress HEENT: positive: EOMI, SEEMA. negative: Normal ENT Inspection (flaccid soft palate) Neck: positive: Trachea midline, Normal Thyroid, Supple. negative: Tender, Rigid Respiratory/Chest: positive: Lungs Clear, Normal Breath Sounds. negative: Chest Tender, Respiratory Distress, Accessory Muscle Use Cardiovascular: positive: Regular Rhythm, Regular Rate Gastrointestinal/Abdominal: positive: Normal Bowel Sounds, Flat. negative: Tender Lymphatic: negative: Adenopathy, Tenderness Musculoskeletal: positive: Normal Inspection. negative: Decreased Range of Motion Extremity: positive: Normal Range of Motion, Coldness (cold dextremiteis and core temp). negative: Normal Capillary Refill (delayed cap refill), Normal Inspection, Tender Integumentary: positive: Dry, Warm, Cold, Clammy Neurologic: positive: Alert, Motor Strength 5/5. negative: Fully Oriented, Normal Mood/Affect, Normal Response ED Treatment Course - LABORATORY CBC & Chemistry Diagram: 09/04/18 16:15 09/04/18 17:24 - ADDITIONAL ORDERS Additional order review: Laboratory Results 09/04/18 09/04/18 09/04/18 16:15 16:15 16:15 PT with INR 11.90 INR 1.01 VBG pH 7.28 L POC VBG pCO2 51.7 D POC VBG pO2 50.0 H D Mixed VBG HCO3 23.3 Sodium Cancelled Potassium Cancelled Chloride Cancelled Carbon Dioxide Cancelled Anion Gap Cancelled BUN Cancelled Creatinine Cancelled Creat Clearance w eGFR Cancelled Random Glucose Cancelled Calcium Cancelled Total Bilirubin Cancelled AST Cancelled ALT Cancelled Alkaline Phosphatase Cancelled Total Protein Cancelled Albumin Cancelled 09/04/18 16:15 RBC 4.94 MCV 89.1 MCHC 31.8 L RDW 17.2 H MPV 9.1 D Neutrophils % 59.4 D Lymphocytes % 31.5 D Monocytes % 6.1 Eosinophils % 1.6 D Basophils % 1.4 D Medical Decision Making - Medical Decision Making 78 year old with multiple comorbidities including immunosuppression from renal transplant meds presenting delirious, hypoglycemic and needed intubation ( difficult requiring multiple attempts by three providers) for airway protection. Patient's labs returned roughly WNL and CXR/ Head CT were non- acute. Patient's pressures began to drop so Central access was eventually obtained in the right femoral vein after a failed right IJ attempt due to some altered anatomy from previous central access placement. Patient given Vanc, Zosyn, and started on dopamine peripherally while central line was placed. Maps were in the mid 60s so patient was transferred to the ICU. EKG demonstrating rate 78, AK 160, QRS 154, QTc 506, and normal axis with RBBB 09/04/18 23:35 *DC/Admit/Observation/Transfer Diagnosis at time of Disposition: Kidney transplant recipient, Hypoglycemia Altered mental status Qualifiers: Altered mental status type: delirium Qualified Code(s): R41.0 - Disorientation , unspecified - Discharge Dispostion Condition at time of disposition: Guarded Decision to Admit order: Yes - Referrals Referrals: Gt Villela MD [Primary Care Provider] - - Patient Instructions - Post Discharge Activity
[2018-09-04 17:49] LABS: PLATELET ESTIMATE ADEQUATE
[2018-09-04] MEDS ORDERED: PIPERACILLIN/TAZOB 3.375 GM 3.375 GM in DEXTROSE 5%-WATER - 50 ML IVPB ONE (17:56)
[2018-09-04] MEDS ORDERED: VANCOMYCIN 1,000 MG in DEXTROSE 5%-WATER - 250 ML IVPB ONE (17:58)
[2018-09-04] MEDS ORDERED: ROCURONIUM BROMIDE 50 MG/5 ML VIAL IVPUSH ONE (18:26)
[2018-09-04 18:28] LABS: ALBUMIN 3.6 g/dl (3.4-5.0); ALK PHOS 78 U/L (45-117); ANION GAP 8 MMOL/L (8-16); BILIRUBIN,TOTAL 0.7 mg/dL (0.2-1); BLOOD UREA NITROGEN 38 mg/dL (7-18); CALCIUM 8.3 mg/dL (8.5-10.1); CHLORIDE 110 mmol/L (98-107); CO2 21 mmol/L (21-32); CREATININE 1.2 mg/dL (0.55-1.3); GLUCOSE,RANDOM 61 mg/dL (74-106); N-TERMINAL BNP 1898.4 pg/ml (5-450); POTASSIUM 4.3 mmol/L (3.5-5.1); SGOT/AST 48 U/L (15-37); SGPT/ALT 48 U/L (13-61); SODIUM 139 mmol/L (136-145); TOT PROT 6.7 g/dl (6.4-8.2)
[2018-09-04] MEDS ORDERED: ETOMIDATE 40 MG/20 ML VIAL IVPUSH ONE (18:36)
[2018-09-04 18:44] LABS: URINE APPEARANCE CLEAR; URINE BILIRUBIN NEGATIVE (<2.0 mg/dL); URINE COLOR STRAW; URINE GLUCOSE (UA) 3+ (NEGATIVE); URINE KETONE NEGATIVE (NEGATIVE); URINE LEUK ESTERASE NEGATIVE (NEGATIVE); URINE NITRITE NEGATIVE (NEGATIVE); URINE PROTEIN 2+ (NEGATIVE); URINE UROBILINOGEN NEGATIVE mg/dL (0.2-1.0)
[2018-09-04] MEDS ORDERED: PIPERACILLIN/TAZOB 3.375 GM 3.375 GM/50 ML BAG IVPB ONE (18:45)
[2018-09-04] MEDS ORDERED: VANCOMYCIN 1 GRAM (PRE-DOCKED) 1,000 MG/250 ML BAG IVPB ONE (18:45)
[2018-09-04 18:55] LABS: ARTERIAL BLD GAS O2 SATURATION 99.3 % (90-98.9); ARTERIAL BLOOD GAS BASE EXCESS -1.5 meq/l (-2-2); ARTERIAL BLOOD GAS PCO2 42.6 mmHg (35-45); ARTERIAL BLOOD GAS pH 7.36 (7.35-7.45)
[2018-09-04 19:09] LABS: ALLENS TEST POSITIVE
--- NOTE | 2018-09-04 20:01 | CONSULT ---
Consultation: REQUESTING PROVIDER: CONSULT REQUEST: We have been asked to medically evaluate this patient for ( specify). HISTORY OF PRESENT ILLNESS: This is a 78 yo m with PMH of IDDM, multiple intubations due to hypoglycemic episodes, HTN, PAD, CAD s/p CABG, NH, CHF, s/p Renal Transplant on immunosuppressants, BIBEMS unresponsive, with hypoglycemia initially noted to be 21 by EMS, s/p D10 x 2 bags and 2 narcans with improvement in BGM 200 but remained unresponsive. Intubated in ED and started on propofol gtt. after being on propofol, patient became hypotensive MAP 58; pressure did not improve after propofol was turned off for an hour and a central line was placed. No ivf was given due to CHF history. On exam patient now opens eyes spontaneously but does not make eye contact or respond to commands. REVIEW OF SYSTEMS: Unable to obtain. PHYSICAL EXAMINATION Vital Signs - 24 hr 09/04/18 09/04/18 09/04/18 16:20 17:20 18:00 Temperature 97.1 F L Pulse Rate 84 Pulse Rate [ 86 Apical] Respiratory 28 H 16 Rate Blood Pressure 96/84 Blood Pressure 156/54 L [Left Arm] O2 Sat by Pulse 100 100 Oximetry (%) 09/04/18 09/04/18 09/04/18 18:30 19:08 19:54 Temperature 91.7 F L Pulse Rate Pulse Rate [ Apical] Respiratory 12 Rate Blood Pressure Blood Pressure [Left Arm] O2 Sat by Pulse 100 Oximetry (%) GENERAL: unresponsive, opens eyes HEAD: Normal with no signs of trauma. EYES: Pupils equal, round and reactive to light 2 mm, sclera anicteric, conjunctiva clear. EARS, NOSE, THROAT: Moist mucous membranes. NECK: supple without JVD LUNGS: Breath sounds equal, clear to auscultation bilaterally. HEART: Regular rate and rhythm, normal S1 and S2 ABDOMEN: Soft, nontender, not distended, globally reduced bowel sounds, no guarding, no rebound, no masses. MUSCULOSKELETAL: No bony deformities UPPER EXTREMITIES: 2+ pulses, warm, well-perfused. No peripheral edema. LOWER EXTREMITIES: 1+ pulses, warm, well-perfused. trace b/l pedal edema. NEUROLOGICAL: unable to assess PSYCHIATRIC: unable to assess SKIN: Warm, dry Laboratory Results - last 24 hr 09/04/18 09/04/18 09/04/18 16:15 16:15 16:15 WBC 12.9 H RBC 4.94 Hgb 14.0 Hct 44.0 D MCV 89.1 MCH 28.4 MCHC 31.8 L RDW 17.2 H Plt Count 191 D MPV 9.1 D Absolute Neuts (auto) 7.7 Neutrophils % 59.4 D Neutrophils % (Manual) 50.0 D Band Neutrophils % 5.0 Lymphocytes % 31.5 D Lymphocytes % (Manual) 38.0 D Monocytes % 6.1 Monocytes % (Manual) 1 L Eosinophils % 1.6 D Eosinophils % (Manual) 2.0 D Basophils % 1.4 D Basophils % (Manual) 0.0 Nucleated RBC % 0 Platelet Estimate Adequate PT with INR 11.90 INR 1.01 PTT (Actin FS) 18.6 L Anticoagulation Therapy Puncture Site ABG pH ABG pCO2 at Pt Temp ABG pO2 at Pt Temp ABG HCO3 ABG O2 Sat (Measured) ABG O2 Content ABG Base Excess Patrice Test VBG pH 7.28 L POC VBG pCO2 51.7 D POC VBG pO2 50.0 H D Mixed VBG HCO3 23.3 O2 Delivery Device Oxygen Flow Rate Vent Mode Vent Rate Mechanical Rate Pressure Support Vent Sodium Potassium Chloride Carbon Dioxide Anion Gap BUN Creatinine Creat Clearance w eGFR Random Glucose Lactic Acid Calcium Total Bilirubin AST ALT Alkaline Phosphatase Creatine Kinase Troponin I B-Natriuretic Peptide Total Protein Albumin Urine Color Urine Appearance Urine pH Ur Specific [place] Urine Protein Urine Glucose (UA) Urine Ketones Urine Blood Urine Nitrite Urine Bilirubin Urine Urobilinogen Ur Leukocyte Esterase Urine WBC (Auto) Urine RBC (Auto) 09/04/18 09/04/18 09/04/18 16:15 16:15 17:24 WBC RBC Hgb Hct MCV MCH MCHC RDW Plt Count MPV Absolute Neuts (auto) Neutrophils % Neutrophils % (Manual) Band Neutrophils % Lymphocytes % Lymphocytes % (Manual) Monocytes % Monocytes % (Manual) Eosinophils % Eosinophils % (Manual) Basophils % Basophils % (Manual) Nucleated RBC % Platelet Estimate PT with INR INR PTT (Actin FS) Anticoagulation Therapy Puncture Site ABG pH ABG pCO2 at Pt Temp ABG pO2 at Pt Temp ABG HCO3 ABG O2 Sat (Measured) ABG O2 Content ABG Base Excess Patrice Test VBG pH POC VBG pCO2 POC VBG pO2 Mixed VBG HCO3 O2 Delivery Device Oxygen Flow Rate Vent Mode Vent Rate Mechanical Rate Pressure Support Vent Sodium Cancelled 139 Potassium Cancelled 4.3 Chloride Cancelled 110 H Carbon Dioxide Cancelled 21 Anion Gap Cancelled 8 BUN Cancelled 38 H Creatinine Cancelled 1.2 Creat Clearance w eGFR Cancelled 58.86 Random Glucose Cancelled 61 L Lactic Acid 2.2 H* Calcium Cancelled 8.3 L Total Bilirubin Cancelled 0.7 AST Cancelled 48 H ALT Cancelled 48 Alkaline Phosphatase Cancelled 78 Creatine Kinase 311 H Troponin I < 0.02 B-Natriuretic Peptide 1898.4 H Total Protein Cancelled 6.7 Albumin Cancelled 3.6 Urine Color Urine Appearance Urine pH Ur Specific [place] Urine Protein Urine Glucose (UA) Urine Ketones Urine Blood Urine Nitrite Urine Bilirubin Urine Urobilinogen Ur Leukocyte Esterase Urine WBC (Auto) Urine RBC (Auto) 09/04/18 09/04/18 18:32 18:35 WBC RBC Hgb Hct MCV MCH MCHC RDW Plt Count MPV Absolute Neuts (auto) Neutrophils % Neutrophils % (Manual) Band Neutrophils % Lymphocytes % Lymphocytes % (Manual) Monocytes % Monocytes % (Manual) Eosinophils % Eosinophils % (Manual) Basophils % Basophils % (Manual) Nucleated RBC % Platelet Estimate PT with INR INR PTT (Actin FS) Anticoagulation Therapy No Result Required. Puncture Site Left radial ABG pH 7.36 ABG pCO2 at Pt Temp 42.6 ABG pO2 at Pt Temp 232.0 H* D ABG HCO3 23.4 ABG O2 Sat (Measured) 99.3 H ABG O2 Content 19.3 ABG Base Excess -1.5 Patrice Test Positive VBG pH POC VBG pCO2 POC VBG pO2 Mixed VBG HCO3 O2 Delivery Device Mech vent Oxygen Flow Rate 100% Vent Mode No Result Required. Vent Rate No Result Required. Mechanical Rate No Result Required. Pressure Support Vent No Result Required. Sodium Potassium Chloride Carbon Dioxide Anion Gap BUN Creatinine Creat Clearance w eGFR Random Glucose Lactic Acid Calcium Total Bilirubin AST ALT Alkaline Phosphatase Creatine Kinase Troponin I B-Natriuretic Peptide Total Protein Albumin Urine Color Straw Urine Appearance Clear Urine pH 5.0 Ur Specific [place] 1.009 L Urine Protein 2+ H Urine Glucose (UA) 3+ H Urine Ketones Negative Urine Blood 1+ H Urine Nitrite Negative Urine Bilirubin Negative Urine Urobilinogen Negative Ur Leukocyte Esterase Negative Urine WBC (Auto) <1 Urine RBC (Auto) 1 Active Medications Generic Name Dose Route Start Last Admin Trade Name Freq PRN Reason Stop Dose Admin Propofol 1,000,000 mcg in 100 mls @ 2.1 mls/hr 09/04/18 18:45 09/04/18 18:50 Diprivan - IVPB 0 mcg/kg/min TITR HUGO 0 mls/hr Titration Protocol 5 MCG/KG/MIN ASSESSMENT/PLAN: This is a 78 yo m with PMH of IDDM, multiple intubations due to hypoglycemic episodes, HTN, PAD, CAD s/p CABG, NH, CHF, s/p Renal Transplant on immunosuppressants, BIBEMS unresponsive, with hypoglycemia, intubated in ED for airwar protection Acute Hypoglycemia in setting of IDDM AMS due to hypoglucemia Lactic acidosis due to hypoglycemia Hypotension likely propofol induced Leukocytosis, possible sepsis, no source determined PAD CAD CHF HTN Renal transplant on immunosuppression -adjust vent setting per abg, expect possible extubation tomorrow morning -lungs appear at basline on cxr, BNP elevated but below previous levels and likely patients baseline; not clinically overloaded -wbc 12.9 w/o left shift, on Prednisone at home but was covered with vanco/ zosyn in ER as a precaution due to immunosupressed status. UA clean. will hold off on further abx. cultures p/d. -BP improving in ED. would consider giving patient a 250 cc bolus of NS -ISS, BGM q4h -insert NGT and continue asa, eliquis, tacrolimus, prednisone -hold coreg, hydralazine, norvasc while hypotensive. Restart coreg first. -hold sedation for neuro status assessment. head ct was unremarkable. EKG no evidence of arrythmia or acs. Dispo: We will continue to follow the patient. Thank you for this consultative opportunity. Visit type - Emergency Visit Emergency Visit: Yes Care time: The patient presented to the Emergency Department on the above date and was hospitalized for further evaluation of their emergent condition. - New Patient This patient is new to me today: Yes Date on this admission: 09/04/18 - Critical Care Critical Care patient: Yes Total Critical Care Time (in minutes): 35 Critical Care Statement: The care of this patient involved high complexity decision making to prevent further life threatening deterioration of the patient 's condition and/or to evaluate & treat vital organ system(s) failure or risk of failure.
--- NOTE | 2018-09-04 20:49 | HP ---
Admitting History and Physical - Primary Care Physician PCP: G[place] - Admission Chief Complaint: Altered Mental Status, Hypoglycemia History of Present Illness: This is a 78y/o man from home with a significant medical history of Renal Transplant (on immunosuppressants),HTN, [place], CAD, CHF, DM, DVT (on Eliquis). Who was BIBA to the ED for AMS. EMS noted FS 21 in the field was given D50. On arrival FS 421 patient was still altered and appeared to be in respiratory distress, patient was intubated in the ED for airway protection. Head CT was done- no ICH. WBC-12.9, Lactic Acid 2.2, BP 96/84 now systolic 70's. Patient will be admitted to ICU for Acute Respiratory failure, Sepsis, Acute Metabolic Encephalopathy History Source: Medical Record Limitations to Obtaining History: Clinical Condition, Intubated - Past Medical History Cardiovascular: Yes: CAD, CHF, HTN, [place], Other Renal/: Yes: Other (S/P Kidney tranplant 2008. 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 coli in past, osteomyelitis of his finger) Endocrine: Yes: Diabetes Mellitus - Past Surgical History Past Surgical History: Yes: AV Fistula/Graft (right upper arm, non working), CABG, Kidney Transplant (right 2008) - Smoking History Smoking history: Unknown if ever smoked Have you smoked in the past 12 months: No Aproximately how many cigarettes per day: 0 - Alcohol/Substance Use Hx Alcohol Use: No History of Substance Use: reports: None - Social History ADL: Support Services History of Recent Travel: No Home Medications - Allergies Allergies/Adverse Reactions: Allergies Allergy/AdvReac Type Severity Reaction Status Date / Time No Known Drug Allergies Allergy Verified 05/20/18 18:32 - Home Medications Home Medications: Ambulatory Orders Acetaminophen [Tylenol .Regular Strength -] 650 mg PO Q4H PRN tablet 11/29/17 Albuterol 2.5/Ipratropium 0.5 [Duoneb -] 1 amp NEB QID 02/08/18 Amlodipine Besylate [Norvasc -] 10 mg PO DAILY #30 tablet 05/19/18 Apixaban [Eliquis] 5 mg PO BID #60 tablet 05/19/18 Aspirin [Jena Chewable Aspirin] 81 mg PO HS #30 tab.chew 05/19/18 Atorvastatin Ca [Lipitor] 80 mg PO HS #60 tablet 05/19/18 Carvedilol [Coreg -] 25 mg PO BID #60 tablet 05/19/18 Duloxetine HCl [Cymbalta] 20 mg PO BID #60 capsule. 05/19/18 Magnesium Oxide [Mag-Ox -] 400 mg PO BID tablet 05/19/18 Mycophenolate Sodium [Mycophenolic Acid] 360 mg PO BID #60 tablet. 05/19/18 Tacrolimus 1 mg PO BID #60 capsule 05/19/18 Tamsulosin HCl [Flomax] 0.4 mg PO HS #30 cap.er.24h 05/19/18 hydrALAZINE HCL [Apresoline -] 25 mg PO BID #60 tablet 05/19/18 predniSONE [Deltasone -] 20 mg PO DAILY #30 tablet 05/24/18 Apixaban [Eliquis -] 5 mg PO BID #60 tablet 05/26/18 Insulin Detemir [Levemir Flextouch] 16 unit SQ DAILY #1 insuln.pen 05/26/18 Family Disease History - Family Disease History Family History: Unable to Obtain Review of Systems Unable to obtain ROS, reason: Intubated Physical Examination Vital Signs: Vital Signs Temperature 91.7 F L 09/04/18 19:08 Pulse Rate 64 09/04/18 20:11 Respiratory Rate 14 09/04/18 20:11 Blood Pressure 89/43 L 09/04/18 20:11 O2 Sat by Pulse Oximetry (%) 100 09/04/18 18:30 Constitutional: Yes: Other (unresponsive, mechanically ventilated) Eyes: Yes: Conjunctiva Clear, Other (pupils are sluggish) HENT: Yes: Atraumatic, Normocephalic Neck: Yes: Supple, Trachea Midline Cardiovascular: Yes: Regular Rate and Rhythm, S1, S2 Respiratory: Yes: Diminished, Intubated, Mechanically Ventilated, Rales Gastrointestinal: Yes: Normal Bowel Sounds, Soft Renal/: Yes: [place] Present (yellow urine in drinage bag) Breast(s): Yes: WNL Musculoskeletal: Yes: WNL Extremities: Yes: WNL Edema: No Peripheral Pulses WNL: Yes Neurological: Yes: Unresponsive, Other (GCS 3 (intubated)) Labs: CBC, BMP 09/04/18:15 09/04/18 17:24 Laboratory Results - last 24 hr 09/04/18 09/04/18 09/04/18 16:15 16:15 16:15 WBC 12.9 H RBC 4.94 Hgb 14.0 Hct 44.0 D MCV 89.1 MCH 28.4 MCHC 31.8 L RDW 17.2 H Plt Count 191 D MPV 9.1 D Absolute Neuts (auto) 7.7 Neutrophils % 59.4 D Neutrophils % (Manual) 50.0 D Band Neutrophils % 5.0 Lymphocytes % 31.5 D Lymphocytes % (Manual) 38.0 D Monocytes % 6.1 Monocytes % (Manual) 1 L Eosinophils % 1.6 D Eosinophils % (Manual) 2.0 D Basophils % 1.4 D Basophils % (Manual) 0.0 Nucleated RBC % 0 Platelet Estimate Adequate PT with INR 11.90 INR 1.01 PTT (Actin FS) 18.6 L Anticoagulation Therapy Puncture Site ABG pH ABG pCO2 at Pt Temp ABG pO2 at Pt Temp ABG HCO3 ABG O2 Sat (Measured) ABG O2 Content ABG Base Excess Patrice Test VBG pH 7.28 L POC VBG pCO2 51.7 D POC VBG pO2 50.0 H D Mixed VBG HCO3 23.3 Carboxyhemoglobin Methemoglobin O2 Delivery Device Oxygen Flow Rate Vent Mode Vent Rate Mechanical Rate Pressure Support Vent Sodium Potassium Chloride Carbon Dioxide Anion Gap BUN Creatinine Creat Clearance w eGFR Random Glucose Lactic Acid Calcium Total Bilirubin AST ALT Alkaline Phosphatase Creatine Kinase Creatine Kinase Index CK-MB (CK-2) Troponin I B-Natriuretic Peptide Total Protein Albumin Urine Color Urine Appearance Urine pH Ur Specific [place] Urine Protein Urine Glucose (UA) Urine Ketones Urine Blood Urine Nitrite Urine Bilirubin Urine Urobilinogen Ur Leukocyte Esterase Urine WBC (Auto) Urine RBC (Auto) 09/04/18 09/04/18 09/04/18 16:15 16:15 17:24 WBC RBC Hgb Hct MCV MCH MCHC RDW Plt Count MPV Absolute Neuts (auto) Neutrophils % Neutrophils % (Manual) Band Neutrophils % Lymphocytes % Lymphocytes % (Manual) Monocytes % Monocytes % (Manual) Eosinophils % Eosinophils % (Manual) Basophils % Basophils % (Manual) Nucleated RBC % Platelet Estimate PT with INR INR PTT (Actin FS) Anticoagulation Therapy Puncture Site ABG pH ABG pCO2 at Pt Temp ABG pO2 at Pt Temp ABG HCO3 ABG O2 Sat (Measured) ABG O2 Content ABG Base Excess Patrice Test VBG pH POC VBG pCO2 POC VBG pO2 Mixed VBG HCO3 Carboxyhemoglobin Methemoglobin O2 Delivery Device Oxygen Flow Rate Vent Mode Vent Rate Mechanical Rate Pressure Support Vent Sodium Cancelled 139 Potassium Cancelled 4.3 Chloride Cancelled 110 H Carbon Dioxide Cancelled 21 Anion Gap Cancelled 8 BUN Cancelled 38 H Creatinine Cancelled 1.2 Creat Clearance w eGFR Cancelled 58.86 Random Glucose Cancelled 61 L Lactic Acid 2.2 H* Calcium Cancelled 8.3 L Total Bilirubin Cancelled 0.7 AST Cancelled 48 H ALT Cancelled 48 Alkaline Phosphatase Cancelled 78 Creatine Kinase 311 H Creatine Kinase Index 1.6 CK-MB (CK-2) 5.0 H Troponin I < 0.02 B-Natriuretic Peptide 1898.4 H Total Protein Cancelled 6.7 Albumin Cancelled 3.6 Urine Color Urine Appearance Urine pH Ur Specific [place] Urine Protein Urine Glucose (UA) Urine Ketones Urine Blood Urine Nitrite Urine Bilirubin Urine Urobilinogen Ur Leukocyte Esterase Urine WBC (Auto) Urine RBC (Auto) 09/04/18 09/04/18 09/04/18 18:32 18:35 18:45 WBC RBC Hgb Hct MCV MCH MCHC RDW Plt Count MPV Absolute Neuts (auto) Neutrophils % Neutrophils % (Manual) Band Neutrophils % Lymphocytes % Lymphocytes % (Manual) Monocytes % Monocytes % (Manual) Eosinophils % Eosinophils % (Manual) Basophils % Basophils % (Manual) Nucleated RBC % Platelet Estimate PT with INR INR PTT (Actin FS) Anticoagulation Therapy No Result Required. Puncture Site Left radial ABG pH 7.36 ABG pCO2 at Pt Temp 42.6 ABG pO2 at Pt Temp 232.0 H* D ABG HCO3 23.4 ABG O2 Sat (Measured) 99.3 H ABG O2 Content 19.3 ABG Base Excess -1.5 Patrice Test Positive VBG pH POC VBG pCO2 POC VBG pO2 Mixed VBG HCO3 Carboxyhemoglobin 1.1 Methemoglobin 0.8 O2 Delivery Device Mech vent Oxygen Flow Rate 100% Vent Mode No Result Required. Vent Rate No Result Required. Mechanical Rate No Result Required. Pressure Support Vent No Result Required. Sodium Potassium Chloride Carbon Dioxide Anion Gap BUN Creatinine Creat Clearance w eGFR Random Glucose Lactic Acid Calcium Total Bilirubin AST ALT Alkaline Phosphatase Creatine Kinase Creatine Kinase Index CK-MB (CK-2) Troponin I B-Natriuretic Peptide Total Protein Albumin Urine Color Straw Urine Appearance Clear Urine pH 5.0 Ur Specific [place] 1.009 L Urine Protein 2+ H Urine Glucose (UA) 3+ H Urine Ketones Negative Urine Blood 1+ H Urine Nitrite Negative Urine Bilirubin Negative Urine Urobilinogen Negative Ur Leukocyte Esterase Negative Urine WBC (Auto) <1 Urine RBC (Auto) 1 09/04/18 22:05 WBC RBC Hgb Hct MCV MCH MCHC RDW Plt Count MPV Absolute Neuts (auto) Neutrophils % Neutrophils % (Manual) Band Neutrophils % Lymphocytes % Lymphocytes % (Manual) Monocytes % Monocytes % (Manual) Eosinophils % Eosinophils % (Manual) Basophils % Basophils % (Manual) Nucleated RBC % Platelet Estimate PT with INR INR PTT (Actin FS) Anticoagulation Therapy Puncture Site ABG pH ABG pCO2 at Pt Temp ABG pO2 at Pt Temp ABG HCO3 ABG O2 Sat (Measured) ABG O2 Content ABG Base Excess Patrice Test VBG pH POC VBG pCO2 POC VBG pO2 Mixed VBG HCO3 Carboxyhemoglobin Methemoglobin O2 Delivery Device Oxygen Flow Rate Vent Mode Vent Rate Mechanical Rate Pressure Support Vent Sodium Potassium Chloride Carbon Dioxide Anion Gap BUN Creatinine Creat Clearance w eGFR Random Glucose Lactic Acid 2.1 H Calcium Total Bilirubin AST ALT Alkaline Phosphatase Creatine Kinase Creatine Kinase Index CK-MB (CK-2) Troponin I B-Natriuretic Peptide Total Protein Albumin Urine Color Urine Appearance Urine pH Ur Specific [place] Urine Protein Urine Glucose (UA) Urine Ketones Urine Blood Urine Nitrite Urine Bilirubin Urine Urobilinogen Ur Leukocyte Esterase Urine WBC (Auto) Urine RBC (Auto) Current Medications Generic Name Dose Route Start Last Admin Trade Name Freq PRN Reason Stop Dose Admin Acetaminophen 650 mg 09/04/18 20:56 Tylenol - PO Q4H PRN FEVER Albuterol/Ipratropium 1 amp 09/05/18 08:00 Duoneb - NEB RQID HUGO Apixaban 5 mg 09/04/18 22:00 Eliquis - PO BID HUGO Aspirin 81 mg 09/04/18 22:00 Asa - PO HS HUGO Atorvastatin Calcium 80 mg 09/04/18 22:00 Lipitor - PO HS HUGO Chlorhexidine Gluconate 1 applic 09/05/18 00:45 Hibiclens For Decolonization - TP HS HUGO Duloxetine HCl 20 mg 09/04/18 22:00 Cymbalta - PO BID HUGO Propofol 1,000,000 mcg in 100 mls @ 2.1 mls/hr 09/04/18 18:45 09/04/18 23:55 Diprivan - IVPB 20 mcg/kg/min TITR HUGO 8.4 mls/hr Titration Protocol 5 MCG/KG/MIN Dopamine HCl/Dextrose 400,000 mcg in 250 mls @ 13.125 mls/hr 09/04/18 22:30 09/05/18 05:45 Dopamine 400 Mg/D5w - IVPB 20 mcg/kg/min TITR HUGO 52.5 mls/hr Titration Protocol 5 MCG/KG/MIN Dextrose/Sodium Chloride 1,000 mls @ 42 mls/hr 09/05/18 01:00 09/05/18 01:30 D5-Ns - IV 42 mls/hr ASDIR HUGO Administration Vancomycin HCl 1,000 mg/ 250 mls @ 200 mls/hr 09/05/18 10:00 Dextrose IVPB Q24H HUGO Protocol Piperacillin Sod/Tazobactam 50 mls @ 100 mls/hr 09/05/18 06:00 Sod 3.375 gm/ Dextrose IVPB Q8H-IV HUGO Protocol Piperacillin Sod/Tazobactam 50 mls @ 100 mls/hr 09/05/18 06:00 Sod 3.375 gm/ Dextrose IVPB 09/05/18 06:29 ONCE ONE Insulin Aspart 1 vial 09/04/18 21:00 Novolog Vial Sliding Scale - SQ Q4H [facility] Protocol Mupirocin 1 applic 09/05/18 00:45 Bactroban Ointment (For Decolonization) - NS 09/10/18 00:44 BID HUGO Mycophenolate Sodium 360 mg 09/04/18 22:00 Mycophenolic Acid PO BID HUGO Prednisone 20 mg 09/05/18 10:00 Deltasone - PO DAILY HUGO Tacrolimus 1 mg 09/04/18 22:00 Prograf PO BID [facility] Intake & Output 09/02/18 09/03/18 09/04/18 09/05/18 23:59 23:59 23:59 23:59 Weight 74.3 kg Imaging - Results Chest X-ray: Report Reviewed, Image Reviewed Cat Scan: Report Reviewed, Image Reviewed Problem List - Problems (1) Acute respiratory failure Code(s): J96.00 - ACUTE RESPIRATORY FAILURE, UNSP W HYPOXIA OR HYPERCAPNIA (2) Acute metabolic encephalopathy Code(s): G93.41 - METABOLIC ENCEPHALOPATHY (3) Sepsis Code(s): A41.9 - SEPSIS, UNSPECIFIED ORGANISM (4) Hypoglycemia Code(s): E16.2 - HYPOGLYCEMIA, UNSPECIFIED (5) Hypotension Code(s): I95.9 - HYPOTENSION, UNSPECIFIED Qualifiers: Hypotension type: unspecified hypotension type Qualified Code(s): I95.9 - Hypotension, unspecified (6) Leukocytosis Code(s): D72.829 - ELEVATED WHITE BLOOD CELL COUNT, UNSPECIFIED (7) H/O kidney transplant Code(s): Z94.0 - KIDNEY TRANSPLANT STATUS (8) Hx of CABG Code(s): Z95.1 - PRESENCE OF AORTOCORONARY BYPASS GRAFT Assessment/Plan This is a 78 y/o man Admitted to ICU for Acute Respiratory Failure,Severe Sepsis , Acute Metabolic Encephalopathy, Hypoglycemia for further evaluation of their emergent condition. Plan: 1. Pulm: Acute Respiratory Failure ? PNA vs CHF Exacerbation vs Sepsis Admit to ICU [id number] Score 3 qSOFA 3 On Mechanical Ventilator titrate per ABG ABG- 7.36/42.6/232/23.4/99.3 Maintain MAP >65 NGT Appreciate Pulm Consult Appreciate Slp Teacher Consult Appreciate ID Consult Vancomycin and Zosyn given in ED, will continue Blood Cultures-pending Sputum Culture Monitor CBC, BMP 2. ID: Severe Sepsis ?PNA WBC 12.9 Lactic Acid 2.2 Patient is hypothermic with a core temp 97.1, Jevon Hugger initiated Sepsis Criteria Met : T Max 97.1, BP 89/43, R 28, WBC 12.9, LA 2.2, BUN 38 [id number] Score 3 qSOFA 3 Blood Cultures-pending Urine Culture-pending Urine Legionella Sputum Culture Appreciate ID Consult Continue Vancomycin, Zosyn Monitor CBC. BMP, Lactate Maintain MAP >65 3. Card: Hypertension CAD CHF Continue Cardiac Monitoring Will hold BP meds secondary to hypotensive state, will require Pressors Central Line pending placement by ED Resident BNP [id number] Hold meds tonight will have Primary reassess in am 4. Neuro: Acute Metabolic Encephalopathy Possible due to Hypoglycemia vs Acute Respiratory Failure vs Hypoglycemia Head CT- neg ICH Patient is currently intubated and unresponsive Neurochecks Aspiration Precautions Seizure Precautions Appreciate Neurology Consult Monitor CBC, BMP Monitor vitals 5. Nephro: Renal Transplant ESRD Continue Mycophenolate, Tacrolimus FEN Replete lytes prn NPO DVT ppx SCDs Continue Eliquis Code Status: Full Code Dispo: Requires Inpatient Care Visit type - Emergency Visit Emergency Visit: Yes ED Registration Date: 09/04/18 Care time: The patient presented to the Emergency Department on the above date and was hospitalized for further evaluation of their emergent condition. - New Patient This patient is new to me today: Yes Date on this admission: 09/04/18 - Critical Care Critical Care patient: Yes Total Critical Care Time (in minutes): 45 Critical Care Statement: The care of this patient involved high complexity decision making to prevent further life threatening deterioration of the patient 's condition and/or to evaluate & treat vital organ system(s) failure or risk of failure.
[2018-09-04] MEDS ORDERED: ACETAMINOPHEN 325 MG TABLET (FP) PO PRN (20:56)
[2018-09-04] MEDS: INSULIN SLIDING SCALE (NOVOLOG) 1 VIAL SQ SCH (21:00)
[2018-09-04 21:02] LABS: CARBOXYHEMOGLOBIN 1.1 gm% (0.5-2.0)
[2018-09-04] MEDS ORDERED: DOPAMINE 400 MG/D5W - 400,000 MCG/250 ML INFUS.BAG IVPB ONE (22:17)
[2018-09-04] MEDS: DOPAMINE 400 MG/D5W - 400,000 MCG/250 ML INFUS.BAG IVPB SCH (22:24)
--- NOTE | 2018-09-04 23:23 | PROC ---
Central Line Insertion Indication: Vasopressor Consent on Chart: Yes (2 pc consent) Central Line: Triple Lumen Catheter Sterile Technique: Yes Ultrasound Guided Assistance: Yes Position: Right Femoral Sterile Dressing Applied: Yes Remarks: right femoral line placed under sterile conditions using ultrasound guidance. Guide wire and catheter placed using modified solinger technique guide wire removed after catheter insertion Line placed with guidance of Dr. Dumont
[2018-09-04] MEDS: TACROLIMUS ANHYDROUS 1 MG CAPSULE PO SCH (23:55)
[2018-09-04] MEDS: ASPIRIN 81 MG CHEWABLE TABLETS PO SCH (23:55)
[2018-09-04] MEDS: APIXABAN 5 MG TABLET PO SCH (23:55)
[2018-09-04] MEDS: ATORVASTATIN CA 40 MG TABLET (FP) PO SCH (23:55)
[2018-09-04] MEDS: DULoxetine HCL 20 MG CAPSULE.DR (FP) PO SCH (23:55)
[2018-09-04] MEDS: MYCOPHENOLATE SODIUM 360 MG TABLET.DR PO SCH (23:55)
[2018-09-05] MEDS ORDERED: DEXTROSE 50%-WATER 25 GM/50 ML DISP.SYRIN ONE ×2 (00:18→03:23)
[2018-09-05] MEDS ORDERED: DEXTROSE 50%-WATER - 25 GM/50 ML VIAL IVPUSH PRN (00:24)
[2018-09-05] MEDS: CHLORHEXIDINE GLUCONATE 4% CLEANSER FOR DECOLONIZATION TP SCH ×2 (00:50→21:50)
[2018-09-05] MEDS: INSULIN SLIDING SCALE (NOVOLOG) 1 VIAL SQ SCH ×6 (01:00→23:04)
[2018-09-05] MEDS: DEXTROSE 5%-NORMAL SALINE 1,000 ML IV SCH (01:30)
[2018-09-05] MEDS ORDERED: PIPERACILLIN/TAZOB 3.375 GM 3.375 GM in DEXTROSE 5%-WATER - 50 ML IVPB ONE (06:00)
[2018-09-05] MEDS ORDERED: PIPERACILLIN/TAZOB 3.375 GM 3.375 GM in DEXTROSE 5%-WATER - 50 ML IVPB SCH (06:00)
[2018-09-05 06:26] LABS: ARTERIAL BLD GAS O2 SATURATION 99.1 % (90-98.9); ARTERIAL BLOOD GAS BASE EXCESS -0.4 meq/l (-2-2); ARTERIAL BLOOD GAS PCO2 34.7 mmHg (35-45); ARTERIAL BLOOD GAS pH 7.43 (7.35-7.45)
[2018-09-05 06:27] LABS: ALLENS TEST POSITIVE
[2018-09-05] MEDS ORDERED: PT OWN MED DRAWER 7, Y5N ONE ×3 (06:45→11:24)
[2018-09-05] MEDS: MUPIROCIN 2% TOPICAL OINTMENT FOR DECOLONIZATION NS SCH ×3 (07:29→22:00)
[2018-09-05] MEDS ORDERED: ACETAMINOPHEN 1000 MG/100 ML VIAL (NON FORMULARY) IVPB PRN (08:06)
[2018-09-05] MEDS ORDERED: NOREPINEPHRINE BITARTRATE 4 MG/4 ML ML IV ONE ×2 (08:08→16:51)
[2018-09-05] MEDS ORDERED: DEXTROSE 5%-WATER - 50 ML IVPB ONE (09:03)
[2018-09-05] MEDS ORDERED: PIPERACILLIN/TAZOBACTAM 3.375 GM VIAL IVPB ONE (09:03)
[2018-09-05] MEDS: NOREPINEPHRINE BITARTRATE 8,000 MCG in DEXTROSE 5%-WATER - 492 ML IV SCH (09:15)
[2018-09-05 09:56] LABS: BASO % 0.5 % (0-2.0); EOS % 0.7 % (0-4.5); HEMATOCRIT 38.6 % (35.4-49); LYMPH % 12.2 % (8-40); MCH 29.4 pg (25.7-33.7); MCHC 33.7 g/dl (32.0-35.9); MEAN CELL VOLUME 87.4 fl (80-96); MEAN PLT VOLUME 8.6 fl (7.5-11.1); MONO % 10.9 % (3.8-10.2); NEUT % 75.7 % (42.8-82.8); PLATELET COUNT 172 K/MM3 (134-434); RBC 4.42 M/mm3 (4.00-5.60); RDW 16.7 % (11.9-15.9); WHITE BLOOD COUNT 13.7 K/mm3 (4.0-10.0)
[2018-09-05] MEDS ORDERED: VANCOMYCIN 1,000 MG in DEXTROSE 5%-WATER - 250 ML IVPB SCH (10:00)
[2018-09-05] MEDS ORDERED: predniSONE 5 MG TABLET (UD) PO SCH (10:00)
[2018-09-05] MEDS ORDERED: VANCOMYCIN 1,000 MG in DEXTROSE 5%-WATER - 250 ML IVPB ONE (10:00)
--- NOTE | 2018-09-05 10:15 | CONSULT ---
Consult Consult Specialty:: Nephrology Reason for Consultation:: kidney transplant - History of Present Illness Chief Complaint: hypoglycemia and aggitation History of Present Illness: Pt is a 78 year old male with pmhx of kidney transplant in 2008, CKD, DM, and DVT who presented with agitation and hypoglycemia. He was intubated for airway protection. His blood sugar has been very labile, it was 21 and darvin to about 421 after an amp of d50. Pt is intubated and unable to give history. His mental status has been deteriorating over the last few years. He is now in the ICU intubated and on pressors. His bp has been improving. He has a rodriguez and is making urine. I was called to evaluate him as he has a transplant and is on rejection meds. - History Source History Provided By: Medical Record - Past Medical History Cardio/Vascular: Yes: CAD, CHF, HTN, [place], Other Renal/: Yes: Renal Inusuff, Other (S/P Kidney tranplant 2008) Infectious Disease: Yes: C-Diff, MRSA, Other (resistant E. coli in past, osteomyelitis of his finger) Endocrine: Yes: Diabetes Mellitus - Past Surgical History Past Surgical History: Yes: AV Fistula/Graft (right upper arm, non working), CABG, Kidney Transplant (right 2008) - Alcohol/Substance Use Hx Alcohol Use: No History of Substance Use: reports: None - Smoking History Smoking history: Unknown if ever smoked Have you smoked in the past 12 months: No Aproximately how many cigarettes per day: 0 - Social History Usual Living Arrangement: Alone ADL: Support Services History of Recent Travel: No Home Medications - Allergies Allergies/Adverse Reactions: Allergies Allergy/AdvReac Type Severity Reaction Status Date / Time No Known Drug Allergies Allergy Verified 05/20/18 18:32 - Home Medications Home Medications: Ambulatory Orders Acetaminophen [Tylenol .Regular Strength -] 650 mg PO Q4H PRN tablet 11/29/17 Albuterol 2.5/Ipratropium 0.5 [Duoneb -] 1 amp NEB QID 02/08/18 Amlodipine Besylate [Norvasc -] 10 mg PO DAILY #30 tablet 05/19/18 Apixaban [Eliquis] 5 mg PO BID #60 tablet 05/19/18 Aspirin [Jena Chewable Aspirin] 81 mg PO HS #30 tab.chew 05/19/18 Atorvastatin Ca [Lipitor] 80 mg PO HS #60 tablet 05/19/18 Carvedilol [Coreg -] 25 mg PO BID #60 tablet 05/19/18 Duloxetine HCl [Cymbalta] 20 mg PO BID #60 capsule. 05/19/18 Magnesium Oxide [Mag-Ox -] 400 mg PO BID tablet 05/19/18 Mycophenolate Sodium [Mycophenolic Acid] 360 mg PO BID #60 tablet. 05/19/18 Tacrolimus 1 mg PO BID #60 capsule 05/19/18 Tamsulosin HCl [Flomax] 0.4 mg PO HS #30 cap.er.24h 05/19/18 hydrALAZINE HCL [Apresoline -] 25 mg PO BID #60 tablet 05/19/18 predniSONE [Deltasone -] 20 mg PO DAILY #30 tablet 05/24/18 Apixaban [Eliquis -] 5 mg PO BID #60 tablet 05/26/18 Insulin Detemir [Levemir Flextouch] 16 unit SQ DAILY #1 insuln.pen 05/26/18 Family Disease History - Family Disease History Family History: Unable to Obtain Review of Systems Unable to obtain ROS, reason: pt intubated Physical Exam Vital Signs: Vital Signs Temperature 100 F H 09/05/18 04:00 Pulse Rate 96 H 09/05/18 09:30 Respiratory Rate 20 09/05/18 08:47 Blood Pressure 154/41 L 09/05/18 09:30 O2 Sat by Pulse Oximetry (%) 100 09/05/18 01:36 Constitutional: Yes: Calm Eyes: Yes: Conjunctiva Clear HENT: Yes: Atraumatic Cardiovascular: Yes: S1, S2 Respiratory: Yes: Mechanically Ventilated Gastrointestinal: Yes: Soft Renal/: Yes: Other (transplant is soft, neg bruit) Musculoskeletal: Yes: Muscle Weakness Edema: No Neurological: Yes: Lethargy Labs: CBC, BMP 09/05/18 09:30 Laboratory Tests 05/22/18 09/04/18 09/04/18 10:00 16:15 16:15 WBC 12.9 H ABG pH Sodium Potassium Chloride Creatinine Creat Clearance w eGFR Lactic Acid 2.2 H* Urine Protein Urine Blood Tacrolimus Pending 09/04/18 09/04/18 09/04/18 17:24 18:32 18:35 WBC ABG pH 7.36 Sodium Potassium Chloride Creatinine 1.2 Creat Clearance w eGFR Lactic Acid Urine Protein 2+ H Urine Blood 1+ H Tacrolimus 09/04/18 09/05/18 09/05/18 22:05 07:00 09:30 WBC 13.7 H ABG pH 7.43 Sodium Potassium Chloride Creatinine Creat Clearance w eGFR Lactic Acid 2.1 H Urine Protein Urine Blood Tacrolimus 09/05/18 09:30 WBC ABG pH Sodium Pending Potassium Pending Chloride Pending Creatinine Pending Creat Clearance w eGFR Pending Lactic Acid Urine Protein Urine Blood Tacrolimus Imaging - Results Chest X-ray: Report Reviewed Cat Scan: Report Reviewed Problem List - Problems (1) Change in mental status Code(s): R41.82 - ALTERED MENTAL STATUS, UNSPECIFIED Qualifiers: Altered mental status type: delirium Qualified Code(s): R41.0 - Disorientation, unspecified (2) Hypoglycemia Code(s): E16.2 - HYPOGLYCEMIA, UNSPECIFIED (3) Kidney transplant recipient Code(s): Z94.0 - KIDNEY TRANSPLANT STATUS Assessment/Plan Current Medications Generic Name Dose Route Start Last Admin Trade Name Freq PRN Reason Stop Dose Admin Acetaminophen 650 mg 09/04/18 20:56 Tylenol - PO Q4H PRN FEVER Acetaminophen 1,000 mg 09/05/18 08:06 Ofirmev Injection - IVPB Q6H PRN FEVER Albuterol/Ipratropium 1 amp 09/05/18 08:00 Duoneb - NEB RQID HUGO Apixaban 5 mg 09/04/18 22:00 09/04/18 23:55 Eliquis - PO Not Given BID [facility] Aspirin 81 mg 09/04/18 22:00 09/04/18 23:55 Asa - PO Not Given HS [facility] Atorvastatin Calcium 80 mg 09/04/18 22:00 09/04/18 23:55 Lipitor - PO Not Given HS [facility] Chlorhexidine Gluconate 1 applic 09/05/18 00:45 09/05/18 00:50 Hibiclens For Decolonization - TP 1 applic HS HUGO Administration Duloxetine HCl 20 mg 09/04/18 22:00 09/04/18 23:55 Cymbalta - PO Not Given BID [facility] Propofol 1,000,000 mcg in 100 mls @ 2.1 mls/hr 09/04/18 18:45 09/05/18 08:00 Diprivan - IVPB 15 mcg/kg/min TITR HUGO 6.3 mls/hr Titration Protocol 5 MCG/KG/MIN Dopamine HCl/Dextrose 400,000 mcg in 250 mls @ 13.125 mls/hr 09/04/18 22:30 09/05/18 09:30 Dopamine 400 Mg/D5w - IVPB 5 mcg/kg/min TITR HUGO 13.125 mls/hr Titration Protocol 5 MCG/KG/MIN Dextrose/Sodium Chloride 1,000 mls @ 42 mls/hr 09/05/18 01:00 09/05/18 01:30 D5-Ns - IV 42 mls/hr ASDIR HUGO Administration Vancomycin HCl 1,000 mg/ 250 mls @ 200 mls/hr 09/05/18 10:00 Dextrose IVPB Q24H [facility] Protocol Piperacillin Sod/Tazobactam 50 mls @ 100 mls/hr 09/05/18 06:00 Sod 3.375 gm/ Dextrose IVPB Q8H-IV [facility] Protocol Vancomycin HCl 1,000 mg/ 250 mls @ 166.667 mls/hr 09/05/18 10:00 09/05/18 09: 36 Dextrose IVPB 09/05/18 11:29 166.667 mls/hr ONCE ONE Administration Norepinephrine Bitartrate 8, 500 mls @ 8.35 mls/hr 09/05/18 08:00 09/05/18 09 :15 000 mcg/ Dextrose IV 10 mcg/kg/min ASDIR HUGO 2,786.25 mls/hr Administration Protocol 0.03 MCG/KG/MIN Insulin Aspart 1 vial 09/04/18 21:00 09/05/18 09:41 Novolog Vial Sliding Scale - SQ Not Given Q4H [facility] Protocol Mupirocin 1 applic 09/05/18 00:45 09/05/18 07:29 Bactroban Ointment (For Decolonization) - NS 09/10/18 00:44 1 applic BID [facility] Administration Mycophenolate Sodium 360 mg 09/04/18 22:00 09/04/18 23:55 Mycophenolic Acid PO Not Given BID [facility] Prednisone 20 mg 09/05/18 10:00 Deltasone - PO DAILY [facility] Tacrolimus 1 mg 09/04/18 22:00 09/04/18 23:55 Prograf PO Not Given BID HUGO Impression 1. CKD 2. kidney transplant 3. DM with labile blood pressure 4. hx of syncope 5. HTN 6. hyperlipidemia 7. CHF 8. acute resp failure s/p intubation 9. Hx DVT - pt has IVC filter Plan - place NG tube and give transplant meds - will need to check a prograf level - monitor renal function - no labs from today, check bmp and repeat lactic acid level - bp is improving, titrate down pressors to a map of 65 - transplant ultrasound - monitor urine output - check repeat cxr - consider endocrine evaluation - prograf level will likely be low - will follow - cont ICU care - vent support - monitor input and output Dr Perez
[2018-09-05 10:44] LABS: ALBUMIN 2.6 g/dl (3.4-5.0); ALK PHOS 51 U/L (45-117); ANION GAP 6 MMOL/L (8-16); BILIRUBIN,TOTAL 0.6 mg/dL (0.2-1); BLOOD UREA NITROGEN 33 mg/dL (7-18); CALCIUM 7.8 mg/dL (8.5-10.1); CHLORIDE 108 mmol/L (98-107); CO2 23 mmol/L (21-32); CREATININE 0.8 mg/dL (0.55-1.3); GLUCOSE,RANDOM 69 mg/dL (74-106); MAGNESIUM 1.5 mg/dL (1.8-2.4); PHOSPHOROUS 3.2 mg/dL (2.5-4.9); POTASSIUM 4.1 mmol/L (3.5-5.1); SGOT/AST 31 U/L (15-37); SGPT/ALT 37 U/L (13-61); SODIUM 137 mmol/L (136-145); TOT PROT 4.9 g/dl (6.4-8.2)
[2018-09-05] MEDS: DULoxetine HCL 20 MG CAPSULE.DR (FP) PO SCH ×2 (11:14→22:00)
[2018-09-05] MEDS: APIXABAN 5 MG TABLET PO SCH ×2 (11:14→22:00)
--- NOTE | 2018-09-05 11:16 | PN ---
Progress Note, Physician Chief Complaint: [patient was brought in for change in mental status and hypoglycemia intubated for airway protection in icu on vent WBC 13 and lactic 2.2 now 0.9 - Current Medication List Current Medications: Active Medications Acetaminophen (Tylenol -) 650 mg PO Q4H PRN PRN Reason: FEVER Acetaminophen (Ofirmev Injection -) 1,000 mg IVPB Q6H PRN PRN Reason: FEVER Albuterol/Ipratropium (Duoneb -) 1 amp NEB RQID [facility] Apixaban (Eliquis -) 5 mg PO BID [facility] Last Admin: 09/04/18 23:55 Dose: Not Given Aspirin (Asa -) 81 mg PO HS [facility] Last Admin: 09/04/18 23:55 Dose: Not Given Atorvastatin Calcium (Lipitor -) 80 mg PO HS [facility] Last Admin: 09/04/18 23:55 Dose: Not Given Chlorhexidine Gluconate (Hibiclens For Decolonization -) 1 applic TP HS [facility] Last Admin: 09/05/18 00:50 Dose: 1 applic Duloxetine HCl (Cymbalta -) 20 mg PO BID [facility] Last Admin: 09/04/18 23:55 Dose: Not Given Propofol (Diprivan -) 1,000,000 mcg in 100 mls @ 2.1 mls/hr IVPB TITR [facility]; Protocol Last Titration: 09/05/18 08:00 Dose: 15 mcg/kg/min, 6.3 mls/hr Dopamine HCl/Dextrose (Dopamine 400 Mg/D5w -) 400,000 mcg in 250 mls @ 13.125 mls/hr IVPB TITR [facility]; Protocol Last Titration: 09/05/18 09:30 Dose: 5 mcg/kg/min, 13.125 mls/hr Dextrose/Sodium Chloride (D5-Ns -) 1,000 mls @ 42 mls/hr IV [facility]IR [facility] Last Admin: 09/05/18 01:30 Dose: 42 mls/hr Vancomycin HCl 1,000 mg/ (Dextrose) 250 mls @ 200 mls/hr IVPB Q24H [facility]; Protocol Piperacillin Sod/Tazobactam (Sod 3.375 gm/ Dextrose) 50 mls @ 100 mls/hr IVPB Q8H-IV [facility]; Protocol Vancomycin HCl 1,000 mg/ (Dextrose) 250 mls @ 166.667 mls/hr IVPB ONCE ONE Stop: 09/05/18 11:29 Last Admin: 09/05/18 09:36 Dose: 166.667 mls/hr Norepinephrine Bitartrate 8, (000 mcg/ Dextrose) 500 mls @ 8.35 mls/hr IV ASDIR [facility]; Protocol Last Admin: 09/05/18 09:15 Dose: 10 mcg/kg/min, 2,786.25 mls/hr Insulin Aspart (Novolog Vial Sliding Scale -) 1 vial SQ Q4H [facility]; Protocol Last Admin: 09/05/18 09:41 Dose: Not Given Mupirocin (Bactroban Ointment (For Decolonization) -) 1 applic NS BID [facility] Stop: 09/10/18 00:44 Last Admin: 09/05/18 07:29 Dose: 1 applic Mycophenolate Sodium (Mycophenolic Acid) 360 mg PO BID [facility] Last Admin: 09/04/18 23:55 Dose: Not Given Prednisone (Deltasone -) 20 mg PO DAILY [facility] Tacrolimus (Prograf) 1 mg PO BID [facility] Last Admin: 09/04/18 23:55 Dose: Not Given - Objective Vital Signs: Vital Signs Temperature 101.6 F H 09/05/18 10:16 Pulse Rate 97 H 09/05/18 10:16 Respiratory Rate 19 09/05/18 10:16 Blood Pressure 126/32 L 09/05/18 10:16 O2 Sat by Pulse Oximetry (%) 100 09/05/18 01:36 Constitutional: Yes: Calm Cardiovascular: Yes: Regular Rate and Rhythm, S1, S2 Respiratory: Yes: Mechanically Ventilated Gastrointestinal: Yes: Normal Bowel Sounds, Soft Edema: No Labs: CBC, BMP 09/05/18 09:30 09/05/18 09:30 INR, PTT INR 1.01 (0.83-1.09) 09/04/18 16:15 Problem List - Problems (1) Change in mental status Assessment/Plan: intubated/ sedated- toxic metabolic encephalopathy icu support NG tube for meds shrestha cultured-pending zosyn/ vanco for broad coverage pressor temp 101. Code(s): R41.82 - ALTERED MENTAL STATUS, UNSPECIFIED Qualifiers: Altered mental status type: delirium Qualified Code(s): R41.0 - Disorientation, unspecified (2) Hypoglycemia Assessment/Plan: endocrine consult dextrose given Code(s): E16.2 - HYPOGLYCEMIA, UNSPECIFIED (3) Kidney transplant recipient Assessment/Plan: prgraf,mycophenolic acid and prednisone via NG tube Code(s): Z94.0 - KIDNEY TRANSPLANT STATUS (4) Left leg DVT Assessment/Plan: ivc ramy jerome Code(s): I82.402 - ACUTE EMBOLISM AND THOMBOS UNSP DEEP VEINS OF L LOW EXTREM Qualifiers: Affected thrombotic vein of extremity: other lower extremity vein Chronicity: acute Qualified Code(s): I82.492 - Acute embolism and thrombosis of other specified deep vein of left lower extremity
[2018-09-05] MEDS ORDERED: SODIUM CHLORIDE 0.9% 500 ML INFUS.BAG IV ONE (11:36)
[2018-09-05 11:50] LABS: ACANTHOCYTES 0; ANISOCYTOSIS 0; HELMET CELLS 0; HOWELL-JOLLY BODIES 0; MACROCYTOSIS 0; OVALOCYTE 0; PLATELET ESTIMATE NORMAL; ROULEAU 0; SICKELED CELLS 0; TARGET CELLS 0; TEAR DROP CELLS 0; TOXIC GRANULATION 0
[2018-09-05] MEDS: MYCOPHENOLATE SODIUM 360 MG TABLET.DR PO SCH ×2 (12:07→22:00)
[2018-09-05] MEDS: TACROLIMUS ANHYDROUS 1 MG CAPSULE PO SCH ×2 (12:07→22:00)
[2018-09-05] MEDS: ALBUTEROL SO4 2.5/IPRATROPIUM 0.5 INH SOL 3 ML VIAL.NEB. NEB SCH ×3 (12:14→21:00)
[2018-09-05] MEDS ORDERED: MAGNESIUM SULF 50% (8.12 MEQ/2 ML-1 GM VIAL) IVPB ONE (12:15)
--- NOTE | 2018-09-05 12:55 | PN ---
Teaching Attending Note Name of Resident: Gwendolyn Kimbrough ATTENDING PHYSICIAN STATEMENT I saw and evaluated the patient. I reviewed the resident's note and discussed the case with the resident. I agree with the resident's findings and plan as documented. SUBJECTIVE: Pt seen and examined in the ICU. Remains intubated, sedated on levophed and dopamine gtts. Febrile this AM. OBJECTIVE: Vital Signs Period Temp Pulse Resp BP Sys/Mendoza Pulse Ox Last 24 Hr 91.7 F-101.6 F 63-102 12-28 77-160/29-121 96-100 Intake & Output 09/02/18 09/03/18 09/04/18 09/05/18 23:59 23:59 23:59 23:59 Weight 74.3 kg 74.3 kg Gen: intubated, sedated Heart: RRR Lung: decreased breath sounds at the bases Abd: soft, nontender Ext: distal edema CBC, BMP 09/05/18 09:30 09/05/18 09:30 Active Medications Acetaminophen (Tylenol -) 650 mg PO Q4H PRN PRN Reason: FEVER Acetaminophen (Ofirmev Injection -) 1,000 mg IVPB Q6H PRN PRN Reason: FEVER Last Admin: 09/05/18 11:13 Dose: 1,000 mg Albuterol/Ipratropium (Duoneb -) 1 amp NEB RQID [facility] Last Admin: 09/05/18 12:14 Dose: 1 amp Apixaban (Eliquis -) 5 mg PO BID [facility] Last Admin: 09/05/18 11:14 Dose: 5 mg Aspirin (Asa -) 81 mg PO HS [facility] Last Admin: 09/04/18 23:55 Dose: Not Given Atorvastatin Calcium (Lipitor -) 80 mg PO HS [facility] Last Admin: 09/04/18 23:55 Dose: Not Given Chlorhexidine Gluconate (Hibiclens For Decolonization -) 1 applic TP HS [facility] Last Admin: 09/05/18 00:50 Dose: 1 applic Duloxetine HCl (Cymbalta -) 20 mg PO BID [facility] Last Admin: 09/05/18 11:14 Dose: 20 mg Hydrocortisone Sodium Succinate (Solu-Cortef -) 100 mg IVPB Q8H [facility] Propofol (Diprivan -) 1,000,000 mcg in 100 mls @ 2.1 mls/hr IVPB TITR [facility]; Protocol Last Titration: 09/05/18 08:00 Dose: 15 mcg/kg/min, 6.3 mls/hr Dopamine HCl/Dextrose (Dopamine 400 Mg/D5w -) 400,000 mcg in 250 mls @ 13.125 mls/hr IVPB TITR [facility]; Protocol Last Titration: 09/05/18 09:30 Dose: 5 mcg/kg/min, 13.125 mls/hr Dextrose/Sodium Chloride (D5-Ns -) 1,000 mls @ 42 mls/hr IV [facility] Last Admin: 09/05/18 01:30 Dose: 42 mls/hr Vancomycin HCl 1,000 mg/ (Dextrose) 250 mls @ 200 mls/hr IVPB Q24H [facility]; Protocol Piperacillin Sod/Tazobactam (Sod 3.375 gm/ Dextrose) 50 mls @ 100 mls/hr IVPB Q8H-IV [facility]; Protocol Norepinephrine Bitartrate 8, (000 mcg/ Dextrose) 500 mls @ 8.35 mls/hr IV [facility]; Protocol Last Titration: 09/05/18 10:05 Dose: 20 mcg/kg/min, 5,572.5 mls/hr Insulin Aspart (Novolog Vial Sliding Scale -) 1 vial SQ Q4H [facility]; Protocol Last Admin: 09/05/18 09:41 Dose: Not Given Mupirocin (Bactroban Ointment (For Decolonization) -) 1 applic NS BID [facility] Stop: 09/10/18 00:44 Last Admin: 09/05/18 12:07 Dose: 1 applic Mycophenolate Sodium (Mycophenolic Acid) 360 mg PO BID [facility] Last Admin: 09/05/18 12:07 Dose: 360 mg Ranitidine HCl (Zantac Oral Solution -) 150 mg GT BID [facility] Tacrolimus (Prograf) 1 mg PO BID [facility] Last Admin: 09/05/18 12:07 Dose: 1 mg ASSESSMENT AND PLAN: Acute Hypoxic Respiratory failure Pneumonia Septic Shock Lactic Acidosis Acute Kidney Injury s/p Renal Transplant on immunosuppressants Hypoglycemia LV Diastolic Dysfunction HTN Hyperlipidemia h/o DVT - continue antibiotics - f/u cultures - IVF resuscitation - titrate pressors to maintain MAP >65 - taper FiO2 to keep SpO2 >90% - monitor urine output, creatinine - start empiric stress dose steroids as pt on chronic prednisone - check prograf level - continue anticoagulation - sedate for vent synchrony - hold sedation and start spontaneous breathing trials when on lower pressor requirements - DVT/GI prophylaxis - continue ICU monitoring critical care time spent in reviewing chart, evaluating patient and formulating plan 35min
--- NOTE | 2018-09-05 13:09 | EKG ---
Test Reason : Blood Pressure : / mmHG Vent. Rate : 078 BPM Atrial Rate : 078 BPM P-R Int : 160 ms QRS Dur : 154 ms QT Int : 444 ms P-R-T Axes : 046 -41 072 degrees QTc Int : 506 ms NORMAL SINUS RHYTHM WITH SINUS ARRHYTHMIA LEFT AXIS DEVIATION RIGHT BUNDLE BRANCH BLOCK MODERATE VOLTAGE CRITERIA FOR LVH, MAY BE NORMAL VARIANT ABNORMAL ECG WHEN COMPARED WITH ECG OF 20-MAY-2018 18:31, NO SIGNIFICANT CHANGE WAS FOUND Confirmed by MD VIVI, SARAH ([id number]) on 09/05/2018 1:08:58 PM Referred By: Confirmed By:SARAH TRINIDAD MD
[2018-09-05] MEDS: HYDROCORTISONE SOD SUCCINATE 100 MG/2 ML VIAL IVPB SCH ×2 (13:13→20:27)
[2018-09-05] MEDS: RANITIDINE HCL 150 MG/10 ML UNIT-DOSE GT SCH ×2 (13:14→22:00)
--- NOTE | 2018-09-05 13:24 | CONSULT ---
Consultation: REQUESTING PROVIDER: CONSULT REQUEST: We have been asked to medically evaluate this patient for ( specify). HISTORY OF PRESENT ILLNESS: REVIEW OF SYSTEMS: CONSTITUTIONAL: Absent: fever, chills, diaphoresis, generalized weakness, malaise, loss of appetite, weight change HEENT: Absent: rhinorrhea, nasal congestion, throat pain, throat swelling, difficulty swallowing, mouth swelling, ear pain, eye pain, visual changes CARDIOVASCULAR: Absent: chest pain, syncope, palpitations, irregular heart rate, lightheadedness , peripheral edema RESPIRATORY: Absent: cough, shortness of breath, dyspnea with exertion, orthopnea, wheezing, stridor, hemoptysis GASTROINTESTINAL: Absent: abdominal pain, abdominal distension, nausea, vomiting, diarrhea, constipation, melena, hematochezia GENITOURINARY: Absent: dysuria, frequency, urgency, hesitancy, hematuria, flank pain, genital pain MUSCULOSKELETAL: Absent: myalgia, arthralgia, joint swelling, back pain, neck pain SKIN: Absent: rash, itching, pallor HEMATOLOGIC/IMMUNOLOGIC: Absent: easy bleeding, easy bruising, lymphadenopathy, frequent infections ENDOCRINE: Absent: unexplained weight gain, unexplained weight loss, heat intolerance, cold intolerance NEUROLOGIC: Absent: headache, focal weakness or paresthesias, dizziness, unsteady gait, seizure, mental status changes, bladder or bowel incontinence PSYCHIATRIC: Absent: anxiety, depression, suicidal or homicidal ideation, hallucinations. PHYSICAL EXAMINATION Vital Signs - 24 hr 09/04/18 09/04/18 09/04/18 16:20 17:20 18:00 Temperature 97.1 F L Pulse Rate 84 Pulse Rate [ 86 Apical] Respiratory 28 H 16 Rate Blood Pressure 96/84 Blood Pressure 156/54 L [Left Arm] O2 Sat by Pulse 100 100 Oximetry (%) 09/04/18 09/04/18 09/04/18 18:30 19:08 19:31 Temperature 91.7 F L 96.7 F L Pulse Rate 101 H Pulse Rate [ Apical] Respiratory 25 H Rate Blood Pressure 160/83 Blood Pressure [Left Arm] O2 Sat by Pulse 100 100 Oximetry (%) 09/04/18 09/04/18 09/04/18 19:54 20:11 20:45 Temperature Pulse Rate Pulse Rate [ 64 63 Apical] Respiratory 12 14 14 Rate Blood Pressure Blood Pressure 89/43 L 96/52 L [Left Arm] O2 Sat by Pulse 100 Oximetry (%) 09/04/18 09/04/18 09/04/18 21:07 21:56 22:24 Temperature Pulse Rate 73 Pulse Rate [ 67 Apical] Respiratory 14 18 Rate Blood Pressure 77/51 L Blood Pressure 110/48 L [Left Arm] O2 Sat by Pulse 96 Oximetry (%) 09/04/18 09/04/18 09/05/18 22:25 22:57 00:00 Temperature 96.7 F L Pulse Rate 102 H Pulse Rate [ 73 72 Apical] Respiratory 22 H 18 Rate Blood Pressure 89/52 L Blood Pressure 77/51 L 108/30 L [Left Arm] O2 Sat by Pulse 99 Oximetry (%) 09/05/18 09/05/18 09/05/18 00:25 01:36 02:00 Temperature 96.5 F L Pulse Rate 88 Pulse Rate [ Apical] Respiratory 23 H 18 18 Rate Blood Pressure 103/53 L Blood Pressure [Left Arm] O2 Sat by Pulse 100 Oximetry (%) 09/05/18 09/05/18 09/05/18 03:17 04:00 05:45 Temperature 100 F H Pulse Rate 86 92 H Pulse Rate [ Apical] Respiratory 15 18 Rate Blood Pressure 141/121 H 111/44 L Blood Pressure [Left Arm] O2 Sat by Pulse Oximetry (%) 09/05/18 09/05/18 09/05/18 06:00 06:21 06:41 Temperature Pulse Rate 94 H 102 H Pulse Rate [ Apical] Respiratory 19 22 H Rate Blood Pressure 115/76 115/76 Blood Pressure [Left Arm] O2 Sat by Pulse Oximetry (%) 09/05/18 09/05/18 09/05/18 08:01 08:38 08:47 Temperature Pulse Rate 97 H 96 H Pulse Rate [ Apical] Respiratory 19 20 Rate Blood Pressure 108/44 L 101/70 Blood Pressure [Left Arm] O2 Sat by Pulse Oximetry (%) 09/05/18 09/05/18 09/05/18 09:15 09:30 10:05 Temperature Pulse Rate 94 H 96 H 91 H Pulse Rate [ Apical] Respiratory Rate Blood Pressure 105/29 L 154/41 L 118/32 L Blood Pressure [Left Arm] O2 Sat by Pulse Oximetry (%) 09/05/18 09/05/18 09/05/18 10:16 11:29 12:11 Temperature 101.6 F H Pulse Rate 97 H 98 H Pulse Rate [ Apical] Respiratory 19 21 H 19 Rate Blood Pressure 126/32 L 126/38 L Blood Pressure [Left Arm] O2 Sat by Pulse Oximetry (%) GENERAL: Awake, alert, and fully oriented, in no acute distress. HEAD: Normal with no signs of trauma. EYES: Pupils equal, round and reactive to light, extraocular movements intact, sclera anicteric, conjunctiva clear. No lid lag. EARS, NOSE, THROAT: Ears normal, nares patent, oropharynx clear without exudates. Moist mucous membranes. NECK: Normal range of motion, supple without lymphadenopathy, JVD, or masses. LUNGS: Breath sounds equal, clear to auscultation bilaterally. No wheezes, and no crackles. No accessory muscle use. HEART: Regular rate and rhythm, normal S1 and S2 without murmur, rub or gallop. ABDOMEN: Soft, nontender, not distended, normoactive bowel sounds, no guarding, no rebound, no masses. No hepatomegaly or splenomegaly. MUSCULOSKELETAL: Normal range of motion at all joints. No bony deformities or tenderness. No CVA tenderness. UPPER EXTREMITIES: 2+ pulses, warm, well-perfused. No cyanosis. No clubbing. Cap refill <2 seconds. No peripheral edema. LOWER EXTREMITIES: 2+ pulses, warm, well-perfused. No calf tenderness. No peripheral edema. NEUROLOGICAL: Cranial nerves II-XII intact. Normal speech. Normal gait. PSYCHIATRIC: Cooperative. Good eye contact. Appropriate mood and affect. SKIN: Warm, dry, normal turgor, no rashes or lesions noted. Laboratory Results - last 24 hr 09/04/18 09/04/18 09/04/18 16:15 16:15 16:15 WBC 12.9 H RBC 4.94 Hgb 14.0 Hct 44.0 D MCV 89.1 MCH 28.4 MCHC 31.8 L RDW 17.2 H Plt Count 191 D MPV 9.1 D Absolute Neuts (auto) 7.7 Neutrophils % 59.4 D Neutrophils % (Manual) 50.0 D Band Neutrophils % 5.0 Lymphocytes % 31.5 D Lymphocytes % (Manual) 38.0 D Monocytes % 6.1 Monocytes % (Manual) 1 L Eosinophils % 1.6 D Eosinophils % (Manual) 2.0 D Basophils % 1.4 D Basophils % (Manual) 0.0 Myelocytes % (Man) Promyelocytes % (Man) Blast Cells % (Manual) Nucleated RBC % 0 Metamyelocytes Hypochromia Toxic Granulation Dohle Bodies Platelet Estimate Adequate Polychromasia Poikilocytosis Basophilic Stippling Anisocytosis Microcytosis Macrocytosis Spherocytes Sickle Cells Target Cells Tear Drop Cells Ovalocytes Stomatocytes Helmet Cells [place] Bodies [place] Rings Hany Cells Acanthocytes (Spur) Rouleaux Fragmented RBCs Schistocytes PT with INR 11.90 INR 1.01 PTT (Actin FS) 18.6 L Anticoagulation Therapy Puncture Site ABG pH ABG pCO2 at Pt Temp ABG pO2 at Pt Temp ABG HCO3 ABG O2 Sat (Measured) ABG O2 Content ABG Base Excess Patrice Test VBG pH 7.28 L POC VBG pCO2 51.7 D POC VBG pO2 50.0 H D Mixed VBG HCO3 23.3 Carboxyhemoglobin Methemoglobin O2 Delivery Device Oxygen Flow Rate Vent Mode Vent Rate Mechanical Rate PEEP Pressure Support Vent Sodium Potassium Chloride Carbon Dioxide Anion Gap BUN Creatinine Creat Clearance w eGFR POC Glucometer Random Glucose Lactic Acid Calcium Phosphorus Magnesium Total Bilirubin AST ALT Alkaline Phosphatase Creatine Kinase Creatine Kinase Index CK-MB (CK-2) Troponin I B-Natriuretic Peptide Total Protein Albumin Urine Color Urine Appearance Urine pH Ur Specific [place] Urine Protein Urine Glucose (UA) Urine Ketones Urine Blood Urine Nitrite Urine Bilirubin Urine Urobilinogen Ur Leukocyte Esterase Urine WBC (Auto) Urine RBC (Auto) 09/04/18 09/04/18 09/04/18 16:15 16:15 17:24 WBC RBC Hgb Hct MCV MCH MCHC RDW Plt Count MPV Absolute Neuts (auto) Neutrophils % Neutrophils % (Manual) Band Neutrophils % Lymphocytes % Lymphocytes % (Manual) Monocytes % Monocytes % (Manual) Eosinophils % Eosinophils % (Manual) Basophils % Basophils % (Manual) Myelocytes % (Man) Promyelocytes % (Man) Blast Cells % (Manual) Nucleated RBC % Metamyelocytes Hypochromia Toxic Granulation Dohle Bodies Platelet Estimate Polychromasia Poikilocytosis Basophilic Stippling Anisocytosis Microcytosis Macrocytosis Spherocytes Sickle Cells Target Cells Tear Drop Cells Ovalocytes Stomatocytes Helmet Cells [place] Bodies [place] Rings Hany Cells Acanthocytes (Spur) Rouleaux Fragmented RBCs Schistocytes PT with INR INR PTT (Actin FS) Anticoagulation Therapy Puncture Site ABG pH ABG pCO2 at Pt Temp ABG pO2 at Pt Temp ABG HCO3 ABG O2 Sat (Measured) ABG O2 Content ABG Base Excess Patrice Test VBG pH POC VBG pCO2 POC VBG pO2 Mixed VBG HCO3 Carboxyhemoglobin Methemoglobin O2 Delivery Device Oxygen Flow Rate Vent Mode Vent Rate Mechanical Rate PEEP Pressure Support Vent Sodium Cancelled 139 Potassium Cancelled 4.3 Chloride Cancelled 110 H Carbon Dioxide Cancelled 21 Anion Gap Cancelled 8 BUN Cancelled 38 H Creatinine Cancelled 1.2 Creat Clearance w eGFR Cancelled 58.86 POC Glucometer Random Glucose Cancelled 61 L Lactic Acid 2.2 H* Calcium Cancelled 8.3 L Phosphorus Magnesium Total Bilirubin Cancelled 0.7 AST Cancelled 48 H ALT Cancelled 48 Alkaline Phosphatase Cancelled 78 Creatine Kinase 311 H Creatine Kinase Index 1.6 CK-MB (CK-2) 5.0 H Troponin I < 0.02 B-Natriuretic Peptide 1898.4 H Total Protein Cancelled 6.7 Albumin Cancelled 3.6 Urine Color Urine Appearance Urine pH Ur Specific [place] Urine Protein Urine Glucose (UA) Urine Ketones Urine Blood Urine Nitrite Urine Bilirubin Urine Urobilinogen Ur Leukocyte Esterase Urine WBC (Auto) Urine RBC (Auto) 09/04/18 09/04/18 09/04/18 18:32 18:35 18:45 WBC RBC Hgb Hct MCV MCH MCHC RDW Plt Count MPV Absolute Neuts (auto) Neutrophils % Neutrophils % (Manual) Band Neutrophils % Lymphocytes % Lymphocytes % (Manual) Monocytes % Monocytes % (Manual) Eosinophils % Eosinophils % (Manual) Basophils % Basophils % (Manual) Myelocytes % (Man) Promyelocytes % (Man) Blast Cells % (Manual) Nucleated RBC % Metamyelocytes Hypochromia Toxic Granulation Dohle Bodies Platelet Estimate Polychromasia Poikilocytosis Basophilic Stippling Anisocytosis Microcytosis Macrocytosis Spherocytes Sickle Cells Target Cells Tear Drop Cells Ovalocytes Stomatocytes Helmet Cells [place] Bodies [place] Rings Hany Cells Acanthocytes (Spur) Rouleaux Fragmented RBCs Schistocytes PT with INR INR PTT (Actin FS) Anticoagulation Therapy No Result Required. Puncture Site Left radial ABG pH 7.36 ABG pCO2 at Pt Temp 42.6 ABG pO2 at Pt Temp 232.0 H* D ABG HCO3 23.4 ABG O2 Sat (Measured) 99.3 H ABG O2 Content 19.3 ABG Base Excess -1.5 Patrice Test Positive VBG pH POC VBG pCO2 POC VBG pO2 Mixed VBG HCO3 Carboxyhemoglobin 1.1 Methemoglobin 0.8 O2 Delivery Device Mech vent Oxygen Flow Rate 100% Vent Mode No Result Required. Vent Rate No Result Required. Mechanical Rate No Result Required. PEEP Pressure Support Vent No Result Required. Sodium Potassium Chloride Carbon Dioxide Anion Gap BUN Creatinine Creat Clearance w eGFR POC Glucometer Random Glucose Lactic Acid Calcium Phosphorus Magnesium Total Bilirubin AST ALT Alkaline Phosphatase Creatine Kinase Creatine Kinase Index CK-MB (CK-2) Troponin I B-Natriuretic Peptide Total Protein Albumin Urine Color Straw Urine Appearance Clear Urine pH 5.0 Ur Specific [place] 1.009 L Urine Protein 2+ H Urine Glucose (UA) 3+ H Urine Ketones Negative Urine Blood 1+ H Urine Nitrite Negative Urine Bilirubin Negative Urine Urobilinogen Negative Ur Leukocyte Esterase Negative Urine WBC (Auto) <1 Urine RBC (Auto) 1 09/04/18 09/05/18 09/05/18 22:05 00:16 01:47 WBC RBC Hgb Hct MCV MCH MCHC RDW Plt Count MPV Absolute Neuts (auto) Neutrophils % Neutrophils % (Manual) Band Neutrophils % Lymphocytes % Lymphocytes % (Manual) Monocytes % Monocytes % (Manual) Eosinophils % Eosinophils % (Manual) Basophils % Basophils % (Manual) Myelocytes % (Man) Promyelocytes % (Man) Blast Cells % (Manual) Nucleated RBC % Metamyelocytes Hypochromia Toxic Granulation Dohle Bodies Platelet Estimate Polychromasia Poikilocytosis Basophilic Stippling Anisocytosis Microcytosis Macrocytosis Spherocytes Sickle Cells Target Cells Tear Drop Cells Ovalocytes Stomatocytes Helmet Cells [place] Bodies [place] Rings [place] Cells Acanthocytes (Spur) Rouleaux Fragmented RBCs Schistocytes PT with INR INR PTT (Actin FS) Anticoagulation Therapy Puncture Site ABG pH ABG pCO2 at Pt Temp ABG pO2 at Pt Temp ABG HCO3 ABG O2 Sat (Measured) ABG O2 Content ABG Base Excess Patrice Test VBG pH POC VBG pCO2 POC VBG pO2 Mixed VBG HCO3 Carboxyhemoglobin Methemoglobin O2 Delivery Device Oxygen Flow Rate Vent Mode Vent Rate Mechanical Rate PEEP Pressure Support Vent Sodium Potassium Chloride Carbon Dioxide Anion Gap BUN Creatinine Creat Clearance w eGFR POC Glucometer < 50 78.21122 Random Glucose Lactic Acid 2.1 H Calcium Phosphorus Magnesium Total Bilirubin AST ALT Alkaline Phosphatase Creatine Kinase Creatine Kinase Index CK-MB (CK-2) Troponin I B-Natriuretic Peptide Total Protein Albumin Urine Color Urine Appearance Urine pH Ur Specific [place] Urine Protein Urine Glucose (UA) Urine Ketones Urine Blood Urine Nitrite Urine Bilirubin Urine Urobilinogen Ur Leukocyte Esterase Urine WBC (Auto) Urine RBC (Auto) 09/05/18 09/05/18 09/05/18 03:09 05:09 07:00 WBC RBC Hgb Hct MCV MCH MCHC RDW Plt Count MPV Absolute Neuts (auto) Neutrophils % Neutrophils % (Manual) Band Neutrophils % Lymphocytes % Lymphocytes % (Manual) Monocytes % Monocytes % (Manual) Eosinophils % Eosinophils % (Manual) Basophils % Basophils % (Manual) Myelocytes % (Man) Promyelocytes % (Man) Blast Cells % (Manual) Nucleated RBC % Metamyelocytes Hypochromia Toxic Granulation Dohle Bodies Platelet Estimate Polychromasia Poikilocytosis Basophilic Stippling Anisocytosis Microcytosis Macrocytosis Spherocytes Sickle Cells Target Cells Tear Drop Cells Ovalocytes Stomatocytes Helmet Cells [place] Bodies [place] Rings [place] Cells Acanthocytes (Spur) Rouleaux Fragmented RBCs Schistocytes PT with INR INR PTT (Actin FS) Anticoagulation Therapy Puncture Site Right radial ABG pH 7.43 ABG pCO2 at Pt Temp 34.7 L ABG pO2 at Pt Temp 209.0 H* D ABG HCO3 22.8 ABG O2 Sat (Measured) 99.1 H ABG O2 Content 19.5 ABG Base Excess -0.4 Patrice Test Positive VBG pH POC VBG pCO2 POC VBG pO2 Mixed VBG HCO3 Carboxyhemoglobin Methemoglobin O2 Delivery Device Mech vent Oxygen Flow Rate 100% Vent Mode A/c Vent Rate 12 Mechanical Rate Yes PEEP 5.0 Pressure Support Vent 400 Sodium Potassium Chloride Carbon Dioxide Anion Gap BUN Creatinine Creat Clearance w eGFR POC Glucometer 54.34816 103.25332 Random Glucose Lactic Acid Calcium Phosphorus Magnesium Total Bilirubin AST ALT Alkaline Phosphatase Creatine Kinase Creatine Kinase Index CK-MB (CK-2) Troponin I B-Natriuretic Peptide Total Protein Albumin Urine Color Urine Appearance Urine pH Ur Specific [place] Urine Protein Urine Glucose (UA) Urine Ketones Urine Blood Urine Nitrite Urine Bilirubin Urine Urobilinogen Ur Leukocyte Esterase Urine WBC (Auto) Urine RBC (Auto) 09/05/18 09/05/18 09/05/18 07:53 09:30 09:30 WBC 13.7 H RBC 4.42 Hgb 13.0 Hct 38.6 MCV 87.4 MCH 29.4 MCHC 33.7 RDW 16.7 H Plt Count 172 MPV 8.6 Absolute Neuts (auto) 10.4 H Neutrophils % 75.7 D Neutrophils % (Manual) 78.0 D Band Neutrophils % 4.0 Lymphocytes % 12.2 D Lymphocytes % (Manual) 8.0 D Monocytes % 10.9 H Monocytes % (Manual) 5 D Eosinophils % 0.7 Eosinophils % (Manual) 0.0 D Basophils % 0.5 Basophils % (Manual) 0.0 Myelocytes % (Man) 0 D Promyelocytes % (Man) 0 Blast Cells % (Manual) 0 Nucleated RBC % 0 Metamyelocytes 0 Hypochromia 0 Toxic Granulation 0 Dohle Bodies 0 Platelet Estimate Normal Polychromasia 0 Poikilocytosis 0 Basophilic Stippling 0 Anisocytosis 0 Microcytosis 0 Macrocytosis 0 Spherocytes 0 Sickle Cells 0 Target Cells 0 Tear Drop Cells 0 Ovalocytes 0 Stomatocytes 0 Helmet Cells 0 [place] Bodies 0 [place] Rings 0 [place] Cells 0 Acanthocytes (Spur) 0 Rouleaux 0 Fragmented RBCs 0 Schistocytes 0 PT with INR INR PTT (Actin FS) Anticoagulation Therapy Puncture Site ABG pH ABG pCO2 at Pt Temp ABG pO2 at Pt Temp ABG HCO3 ABG O2 Sat (Measured) ABG O2 Content ABG Base Excess Patrice Test VBG pH POC VBG pCO2 POC VBG pO2 Mixed VBG HCO3 Carboxyhemoglobin Methemoglobin O2 Delivery Device Oxygen Flow Rate Vent Mode Vent Rate Mechanical Rate PEEP Pressure Support Vent Sodium 137 Potassium 4.1 Chloride 108 H Carbon Dioxide 23 Anion Gap 6 L BUN 33 H Creatinine 0.8 Creat Clearance w eGFR > 60 POC Glucometer 85.04401 Random Glucose 69 L Lactic Acid Calcium 7.8 L Phosphorus 3.2 Magnesium 1.5 L Total Bilirubin 0.6 AST 31 ALT 37 Alkaline Phosphatase 51 Creatine Kinase Creatine Kinase Index CK-MB (CK-2) Troponin I B-Natriuretic Peptide Total Protein 4.9 L Albumin 2.6 L Urine Color Urine Appearance Urine pH Ur Specific [place] Urine Protein Urine Glucose (UA) Urine Ketones Urine Blood Urine Nitrite Urine Bilirubin Urine Urobilinogen Ur Leukocyte Esterase Urine WBC (Auto) Urine RBC (Auto) 09/05/18 09/05/18 09:30 11:18 WBC RBC Hgb Hct MCV MCH MCHC RDW Plt Count MPV Absolute Neuts (auto) Neutrophils % Neutrophils % (Manual) Band Neutrophils % Lymphocytes % Lymphocytes % (Manual) Monocytes % Monocytes % (Manual) Eosinophils % Eosinophils % (Manual) Basophils % Basophils % (Manual) Myelocytes % (Man) Promyelocytes % (Man) Blast Cells % (Manual) Nucleated RBC % Metamyelocytes Hypochromia Toxic Granulation Dohle Bodies Platelet Estimate Polychromasia Poikilocytosis Basophilic Stippling Anisocytosis Microcytosis Macrocytosis Spherocytes Sickle Cells Target Cells Tear Drop Cells Ovalocytes Stomatocytes Helmet Cells [place] Bodies [place] Rings [place] Cells Acanthocytes (Spur) Rouleaux Fragmented RBCs Schistocytes PT with INR INR PTT (Actin FS) Anticoagulation Therapy Puncture Site ABG pH ABG pCO2 at Pt Temp ABG pO2 at Pt Temp ABG HCO3 ABG O2 Sat (Measured) ABG O2 Content ABG Base Excess Patrice Test VBG pH POC VBG pCO2 POC VBG pO2 Mixed VBG HCO3 Carboxyhemoglobin Methemoglobin O2 Delivery Device Oxygen Flow Rate Vent Mode Vent Rate Mechanical Rate PEEP Pressure Support Vent Sodium Potassium Chloride Carbon Dioxide Anion Gap BUN Creatinine Creat Clearance w eGFR POC Glucometer 72.91673 Random Glucose Lactic Acid 0.9 Calcium Phosphorus Magnesium Total Bilirubin AST ALT Alkaline Phosphatase Creatine Kinase Creatine Kinase Index CK-MB (CK-2) Troponin I B-Natriuretic Peptide Total Protein Albumin Urine Color Urine Appearance Urine pH Ur Specific [place] Urine Protein Urine Glucose (UA) Urine Ketones Urine Blood Urine Nitrite Urine Bilirubin Urine Urobilinogen Ur Leukocyte Esterase Urine WBC (Auto) Urine RBC (Auto) Active Medications Generic Name Dose Route Start Last Admin Trade Name Freq PRN Reason Stop Dose Admin Acetaminophen 650 mg 09/04/18 20:56 Tylenol - PO Q4H PRN FEVER Acetaminophen 1,000 mg 09/05/18 08:06 09/05/18 11:13 Ofirmev Injection - IVPB 1,000 mg Q6H PRN Administration FEVER Albuterol/Ipratropium 1 amp 09/05/18 08:00 09/05/18 12:14 Duoneb - NEB 1 amp RQID HUGO Administration Apixaban 5 mg 09/04/18 22:00 09/05/18 11:14 Eliquis - PO 5 mg BID HUGO Administration Aspirin 81 mg 09/04/18 22:00 09/04/18 23:55 Asa - PO Not Given HS HUGO Atorvastatin Calcium 80 mg 09/04/18 22:00 09/04/18 23:55 Lipitor - PO Not Given HS HUGO Chlorhexidine Gluconate 1 applic 09/05/18 00:45 09/05/18 00:50 Hibiclens For Decolonization - TP 1 applic HS HUGO Administration Duloxetine HCl 20 mg 09/04/18 22:00 09/05/18 11:14 Cymbalta - PO 20 mg BID HUGO Administration Hydrocortisone Sodium Succinate 100 mg 09/05/18 12:00 09/05/18 13:13 Solu-Cortef - IVPB 100 mg Q8H HUGO Administration Propofol 1,000,000 mcg in 100 mls @ 2.1 mls/hr 09/04/18 18:45 09/05/18 08:00 Diprivan - IVPB 15 mcg/kg/min TITR HUGO 6.3 mls/hr Titration Protocol 5 MCG/KG/MIN Dopamine HCl/Dextrose 400,000 mcg in 250 mls @ 13.125 mls/hr 09/04/18 22:30 09/05/18 09:30 Dopamine 400 Mg/D5w - IVPB 5 mcg/kg/min TITR HUGO 13.125 mls/hr Titration Protocol 5 MCG/KG/MIN Dextrose/Sodium Chloride 1,000 mls @ 42 mls/hr 09/05/18 01:00 09/05/18 01:30 D5-Ns - IV 42 mls/hr ASDIR HUGO Administration Vancomycin HCl 1,000 mg/ 250 mls @ 200 mls/hr 09/05/18 10:00 Dextrose IVPB Q24H HUGO Protocol Piperacillin Sod/Tazobactam 50 mls @ 100 mls/hr 09/05/18 06:00 Sod 3.375 gm/ Dextrose IVPB Q8H-IV HUGO Protocol Norepinephrine Bitartrate 8, 500 mls @ 8.35 mls/hr 09/05/18 08:00 09/05/18 10 :05 000 mcg/ Dextrose IV 20 mcg/kg/min ASDIR HUGO 5,572.5 mls/hr Titration Protocol 0.03 MCG/KG/MIN Insulin Aspart 1 vial 09/04/18 21:00 09/05/18 13:14 Novolog Vial Sliding Scale - SQ Not Given Q4H [facility] Protocol Mupirocin 1 applic 09/05/18 00:45 09/05/18 12:07 Bactroban Ointment (For Decolonization) - NS 09/10/18 00:44 1 applic BID HUGO Administration Mycophenolate Sodium 360 mg 09/04/18 22:00 09/05/18 12:07 Mycophenolic Acid PO 360 mg BID HUGO Administration Ranitidine HCl 150 mg 09/05/18 12:15 09/05/18 13:14 Zantac Oral Solution - GT 150 mg BID HUGO Administration Tacrolimus 1 mg 09/04/18 22:00 09/05/18 12:07 Prograf PO 1 mg BID HUGO Administration ASSESSMENT/PLAN: Dispo: We will continue to follow the patient. Thank you for this consultative opportunity.
--- NOTE | 2018-09-05 13:32 | PN ---
Physical Exam: SUBJECTIVE: - Admitted from ED yesterday for working dx septic shock secondary to pneumonia. Was found at home with AMS, hypoglycemia to 27. - ED course notable for intubation scondary to gurgling respirations, diffuse wheezing, AMS. CT head w/o acute pathology. Leukocytosis to 12.9, lactate 2.2, UA negative, CXR without focal consolidation noted on read. R femoral central line placed for pressors due to SBP in 70's in ED - Overnight, on dopamine 15 - This morning, dopamine to 10. Norepinephrine started - FiO2 decreased from 100% to 50% at around 7am; to 40% on rounds OBJECTIVE: Vital Signs Period Temp Pulse Resp BP Sys/Mendoza Pulse Ox Last 24 Hr 91.7 F-101.6 F 63-102 12-28 77-160/29-121 96-100 General: Sedated HEENT: Eyes closed. ETT and OGT in place Cards: RRR. Mid sternal scar Pulm: Mechanically ventilated; R lower lung crackles Abd: Soft, nontender, nondistended : Monahan in place, clear yellow urine draining Ext: LLE with 2+ pitting edema to knee, including foot. L hand with dry, scabbed wound to lateral middle finger; no surrounding erythema, edema, drainage Neuro: Sedated Laboratory Results - last 24 hr 09/04/18 09/04/18 09/04/18 16:15 16:15 16:15 WBC 12.9 H RBC 4.94 Hgb 14.0 Hct 44.0 D MCV 89.1 MCH 28.4 MCHC 31.8 L RDW 17.2 H Plt Count 191 D MPV 9.1 D Absolute Neuts (auto) 7.7 Neutrophils % 59.4 D Neutrophils % (Manual) 50.0 D Band Neutrophils % 5.0 Lymphocytes % 31.5 D Lymphocytes % (Manual) 38.0 D Monocytes % 6.1 Monocytes % (Manual) 1 L Eosinophils % 1.6 D Eosinophils % (Manual) 2.0 D Basophils % 1.4 D Basophils % (Manual) 0.0 Myelocytes % (Man) Promyelocytes % (Man) Blast Cells % (Manual) Nucleated RBC % 0 Metamyelocytes Hypochromia Toxic Granulation Dohle Bodies Platelet Estimate Adequate Polychromasia Poikilocytosis Basophilic Stippling Anisocytosis Microcytosis Macrocytosis Spherocytes Sickle Cells Target Cells Tear Drop Cells Ovalocytes Stomatocytes Helmet Cells [place] Bodies [place] Rings Celina Cells Acanthocytes (Spur) Rouleaux Fragmented RBCs Schistocytes PT with INR 11.90 INR 1.01 PTT (Actin FS) 18.6 L Anticoagulation Therapy Puncture Site ABG pH ABG pCO2 at Pt Temp ABG pO2 at Pt Temp ABG HCO3 ABG O2 Sat (Measured) ABG O2 Content ABG Base Excess Patrice Test VBG pH 7.28 L POC VBG pCO2 51.7 D POC VBG pO2 50.0 H D Mixed VBG HCO3 23.3 Carboxyhemoglobin Methemoglobin O2 Delivery Device Oxygen Flow Rate Vent Mode Vent Rate Mechanical Rate PEEP Pressure Support Vent Sodium Potassium Chloride Carbon Dioxide Anion Gap BUN Creatinine Creat Clearance w eGFR POC Glucometer Random Glucose Lactic Acid Calcium Phosphorus Magnesium Total Bilirubin AST ALT Alkaline Phosphatase Creatine Kinase Creatine Kinase Index CK-MB (CK-2) Troponin I B-Natriuretic Peptide Total Protein Albumin Urine Color Urine Appearance Urine pH Ur Specific [place] Urine Protein Urine Glucose (UA) Urine Ketones Urine Blood Urine Nitrite Urine Bilirubin Urine Urobilinogen Ur Leukocyte Esterase Urine WBC (Auto) Urine RBC (Auto) 09/04/18 09/04/18 09/04/18 16:15 16:15 17:24 WBC RBC Hgb Hct MCV MCH MCHC RDW Plt Count MPV Absolute Neuts (auto) Neutrophils % Neutrophils % (Manual) Band Neutrophils % Lymphocytes % Lymphocytes % (Manual) Monocytes % Monocytes % (Manual) Eosinophils % Eosinophils % (Manual) Basophils % Basophils % (Manual) Myelocytes % (Man) Promyelocytes % (Man) Blast Cells % (Manual) Nucleated RBC % Metamyelocytes Hypochromia Toxic Granulation Dohle Bodies Platelet Estimate Polychromasia Poikilocytosis Basophilic Stippling Anisocytosis Microcytosis Macrocytosis Spherocytes Sickle Cells Target Cells Tear Drop Cells Ovalocytes Stomatocytes Helmet Cells [place] Bodies [place] Rings Celina Cells Acanthocytes (Spur) Rouleaux Fragmented RBCs Schistocytes PT with INR INR PTT (Actin FS) Anticoagulation Therapy Puncture Site ABG pH ABG pCO2 at Pt Temp ABG pO2 at Pt Temp ABG HCO3 ABG O2 Sat (Measured) ABG O2 Content ABG Base Excess Patrice Test VBG pH POC VBG pCO2 POC VBG pO2 Mixed VBG HCO3 Carboxyhemoglobin Methemoglobin O2 Delivery Device Oxygen Flow Rate Vent Mode Vent Rate Mechanical Rate PEEP Pressure Support Vent Sodium Cancelled 139 Potassium Cancelled 4.3 Chloride Cancelled 110 H Carbon Dioxide Cancelled 21 Anion Gap Cancelled 8 BUN Cancelled 38 H Creatinine Cancelled 1.2 Creat Clearance w eGFR Cancelled 58.86 POC Glucometer Random Glucose Cancelled 61 L Lactic Acid 2.2 H* Calcium Cancelled 8.3 L Phosphorus Magnesium Total Bilirubin Cancelled 0.7 AST Cancelled 48 H ALT Cancelled 48 Alkaline Phosphatase Cancelled 78 Creatine Kinase 311 H Creatine Kinase Index 1.6 CK-MB (CK-2) 5.0 H Troponin I < 0.02 B-Natriuretic Peptide 1898.4 H Total Protein Cancelled 6.7 Albumin Cancelled 3.6 Urine Color Urine Appearance Urine pH Ur Specific [place] Urine Protein Urine Glucose (UA) Urine Ketones Urine Blood Urine Nitrite Urine Bilirubin Urine Urobilinogen Ur Leukocyte Esterase Urine WBC (Auto) Urine RBC (Auto) 09/04/18 09/04/18 09/04/18 18:32 18:35 18:45 WBC RBC Hgb Hct MCV MCH MCHC RDW Plt Count MPV Absolute Neuts (auto) Neutrophils % Neutrophils % (Manual) Band Neutrophils % Lymphocytes % Lymphocytes % (Manual) Monocytes % Monocytes % (Manual) Eosinophils % Eosinophils % (Manual) Basophils % Basophils % (Manual) Myelocytes % (Man) Promyelocytes % (Man) Blast Cells % (Manual) Nucleated RBC % Metamyelocytes Hypochromia Toxic Granulation Dohle Bodies Platelet Estimate Polychromasia Poikilocytosis Basophilic Stippling Anisocytosis Microcytosis Macrocytosis Spherocytes Sickle Cells Target Cells Tear Drop Cells Ovalocytes Stomatocytes Helmet Cells [place] Bodies [place] Rings Hany Cells Acanthocytes (Spur) Rouleaux Fragmented RBCs Schistocytes PT with INR INR PTT (Actin FS) Anticoagulation Therapy No Result Required. Puncture Site Left radial ABG pH 7.36 ABG pCO2 at Pt Temp 42.6 ABG pO2 at Pt Temp 232.0 H* D ABG HCO3 23.4 ABG O2 Sat (Measured) 99.3 H ABG O2 Content 19.3 ABG Base Excess -1.5 Patrice Test Positive VBG pH POC VBG pCO2 POC VBG pO2 Mixed VBG HCO3 Carboxyhemoglobin 1.1 Methemoglobin 0.8 O2 Delivery Device Mech vent Oxygen Flow Rate 100% Vent Mode No Result Required. Vent Rate No Result Required. Mechanical Rate No Result Required. PEEP Pressure Support Vent No Result Required. Sodium Potassium Chloride Carbon Dioxide Anion Gap BUN Creatinine Creat Clearance w eGFR POC Glucometer Random Glucose Lactic Acid Calcium Phosphorus Magnesium Total Bilirubin AST ALT Alkaline Phosphatase Creatine Kinase Creatine Kinase Index CK-MB (CK-2) Troponin I B-Natriuretic Peptide Total Protein Albumin Urine Color Straw Urine Appearance Clear Urine pH 5.0 Ur Specific [place] 1.009 L Urine Protein 2+ H Urine Glucose (UA) 3+ H Urine Ketones Negative Urine Blood 1+ H Urine Nitrite Negative Urine Bilirubin Negative Urine Urobilinogen Negative Ur Leukocyte Esterase Negative Urine WBC (Auto) <1 Urine RBC (Auto) 1 09/04/18 09/05/18 09/05/18 22:05 00:16 01:47 WBC RBC Hgb Hct MCV MCH MCHC RDW Plt Count MPV Absolute Neuts (auto) Neutrophils % Neutrophils % (Manual) Band Neutrophils % Lymphocytes % Lymphocytes % (Manual) Monocytes % Monocytes % (Manual) Eosinophils % Eosinophils % (Manual) Basophils % Basophils % (Manual) Myelocytes % (Man) Promyelocytes % (Man) Blast Cells % (Manual) Nucleated RBC % Metamyelocytes Hypochromia Toxic Granulation Dohle Bodies Platelet Estimate Polychromasia Poikilocytosis Basophilic Stippling Anisocytosis Microcytosis Macrocytosis Spherocytes Sickle Cells Target Cells Tear Drop Cells Ovalocytes Stomatocytes Helmet Cells [place] Bodies [place] Rings Hany Cells Acanthocytes (Spur) Rouleaux Fragmented RBCs Schistocytes PT with INR INR PTT (Actin FS) Anticoagulation Therapy Puncture Site ABG pH ABG pCO2 at Pt Temp ABG pO2 at Pt Temp ABG HCO3 ABG O2 Sat (Measured) ABG O2 Content ABG Base Excess Patrice Test VBG pH POC VBG pCO2 POC VBG pO2 Mixed VBG HCO3 Carboxyhemoglobin Methemoglobin O2 Delivery Device Oxygen Flow Rate Vent Mode Vent Rate Mechanical Rate PEEP Pressure Support Vent Sodium Potassium Chloride Carbon Dioxide Anion Gap BUN Creatinine Creat Clearance w eGFR POC Glucometer < 50 78.17011 Random Glucose Lactic Acid 2.1 H Calcium Phosphorus Magnesium Total Bilirubin AST ALT Alkaline Phosphatase Creatine Kinase Creatine Kinase Index CK-MB (CK-2) Troponin I B-Natriuretic Peptide Total Protein Albumin Urine Color Urine Appearance Urine pH Ur Specific [place] Urine Protein Urine Glucose (UA) Urine Ketones Urine Blood Urine Nitrite Urine Bilirubin Urine Urobilinogen Ur Leukocyte Esterase Urine WBC (Auto) Urine RBC (Auto) 09/05/18 09/05/18 09/05/18 03:09 05:09 07:00 WBC RBC Hgb Hct MCV MCH MCHC RDW Plt Count MPV Absolute Neuts (auto) Neutrophils % Neutrophils % (Manual) Band Neutrophils % Lymphocytes % Lymphocytes % (Manual) Monocytes % Monocytes % (Manual) Eosinophils % Eosinophils % (Manual) Basophils % Basophils % (Manual) Myelocytes % (Man) Promyelocytes % (Man) Blast Cells % (Manual) Nucleated RBC % Metamyelocytes Hypochromia Toxic Granulation Dohle Bodies Platelet Estimate Polychromasia Poikilocytosis Basophilic Stippling Anisocytosis Microcytosis Macrocytosis Spherocytes Sickle Cells Target Cells Tear Drop Cells Ovalocytes Stomatocytes Helmet Cells [place] Bodies [place] Rings Hany Cells Acanthocytes (Spur) Rouleaux Fragmented RBCs Schistocytes PT with INR INR PTT (Actin FS) Anticoagulation Therapy Puncture Site Right radial ABG pH 7.43 ABG pCO2 at Pt Temp 34.7 L ABG pO2 at Pt Temp 209.0 H* D ABG HCO3 22.8 ABG O2 Sat (Measured) 99.1 H ABG O2 Content 19.5 ABG Base Excess -0.4 Patrice Test Positive VBG pH POC VBG pCO2 POC VBG pO2 Mixed VBG HCO3 Carboxyhemoglobin Methemoglobin O2 Delivery Device Mech vent Oxygen Flow Rate 100% Vent Mode A/c Vent Rate 12 Mechanical Rate Yes PEEP 5.0 Pressure Support Vent 400 Sodium Potassium Chloride Carbon Dioxide Anion Gap BUN Creatinine Creat Clearance w eGFR POC Glucometer [phone] Random Glucose Lactic Acid Calcium Phosphorus Magnesium Total Bilirubin AST ALT Alkaline Phosphatase Creatine Kinase Creatine Kinase Index CK-MB (CK-2) Troponin I B-Natriuretic Peptide Total Protein Albumin Urine Color Urine Appearance Urine pH Ur Specific [place] Urine Protein Urine Glucose (UA) Urine Ketones Urine Blood Urine Nitrite Urine Bilirubin Urine Urobilinogen Ur Leukocyte Esterase Urine WBC (Auto) Urine RBC (Auto) 09/05/18 09/05/18 09/05/18 07:53 09:30 09:30 WBC 13.7 H RBC 4.42 Hgb 13.0 Hct 38.6 MCV 87.4 MCH 29.4 MCHC 33.7 RDW 16.7 H Plt Count 172 MPV 8.6 Absolute Neuts (auto) 10.4 H Neutrophils % 75.7 D Neutrophils % (Manual) 78.0 D Band Neutrophils % 4.0 Lymphocytes % 12.2 D Lymphocytes % (Manual) 8.0 D Monocytes % 10.9 H Monocytes % (Manual) 5 D Eosinophils % 0.7 Eosinophils % (Manual) 0.0 D Basophils % 0.5 Basophils % (Manual) 0.0 Myelocytes % (Man) 0 D Promyelocytes % (Man) 0 Blast Cells % (Manual) 0 Nucleated RBC % 0 Metamyelocytes 0 Hypochromia 0 Toxic Granulation 0 Dohle Bodies 0 Platelet Estimate Normal Polychromasia 0 Poikilocytosis 0 Basophilic Stippling 0 Anisocytosis 0 Microcytosis 0 Macrocytosis 0 Spherocytes 0 Sickle Cells 0 Target Cells 0 Tear Drop Cells 0 Ovalocytes 0 Stomatocytes 0 Helmet Cells 0 [place] Bodies 0 [place] Rings 0 Hany Cells 0 Acanthocytes (Spur) 0 Rouleaux 0 Fragmented RBCs 0 Schistocytes 0 PT with INR INR PTT (Actin FS) Anticoagulation Therapy Puncture Site ABG pH ABG pCO2 at Pt Temp ABG pO2 at Pt Temp ABG HCO3 ABG O2 Sat (Measured) ABG O2 Content ABG Base Excess Patrice Test VBG pH POC VBG pCO2 POC VBG pO2 Mixed VBG HCO3 Carboxyhemoglobin Methemoglobin O2 Delivery Device Oxygen Flow Rate Vent Mode Vent Rate Mechanical Rate PEEP Pressure Support Vent Sodium 137 Potassium 4.1 Chloride 108 H Carbon Dioxide 23 Anion Gap 6 L BUN 33 H Creatinine 0.8 Creat Clearance w eGFR > 60 POC Glucometer 85.57635 Random Glucose 69 L Lactic Acid Calcium 7.8 L Phosphorus 3.2 Magnesium 1.5 L Total Bilirubin 0.6 AST 31 ALT 37 Alkaline Phosphatase 51 Creatine Kinase Creatine Kinase Index CK-MB (CK-2) Troponin I B-Natriuretic Peptide Total Protein 4.9 L Albumin 2.6 L Urine Color Urine Appearance Urine pH Ur Specific [place] Urine Protein Urine Glucose (UA) Urine Ketones Urine Blood Urine Nitrite Urine Bilirubin Urine Urobilinogen Ur Leukocyte Esterase Urine WBC (Auto) Urine RBC (Auto) 09/05/18 09/05/18 09:30 11:18 WBC RBC Hgb Hct MCV MCH MCHC RDW Plt Count MPV Absolute Neuts (auto) Neutrophils % Neutrophils % (Manual) Band Neutrophils % Lymphocytes % Lymphocytes % (Manual) Monocytes % Monocytes % (Manual) Eosinophils % Eosinophils % (Manual) Basophils % Basophils % (Manual) Myelocytes % (Man) Promyelocytes % (Man) Blast Cells % (Manual) Nucleated RBC % Metamyelocytes Hypochromia Toxic Granulation Dohle Bodies Platelet Estimate Polychromasia Poikilocytosis Basophilic Stippling Anisocytosis Microcytosis Macrocytosis Spherocytes Sickle Cells Target Cells Tear Drop Cells Ovalocytes Stomatocytes Helmet Cells [place] Bodies [place] Rings Hany Cells Acanthocytes (Spur) Rouleaux Fragmented RBCs Schistocytes PT with INR INR PTT (Actin FS) Anticoagulation Therapy Puncture Site ABG pH ABG pCO2 at Pt Temp ABG pO2 at Pt Temp ABG HCO3 ABG O2 Sat (Measured) ABG O2 Content ABG Base Excess Patrice Test VBG pH POC VBG pCO2 POC VBG pO2 Mixed VBG HCO3 Carboxyhemoglobin Methemoglobin O2 Delivery Device Oxygen Flow Rate Vent Mode Vent Rate Mechanical Rate PEEP Pressure Support Vent Sodium Potassium Chloride Carbon Dioxide Anion Gap BUN Creatinine Creat Clearance w eGFR POC Glucometer 72.42265 Random Glucose Lactic Acid 0.9 Calcium Phosphorus Magnesium Total Bilirubin AST ALT Alkaline Phosphatase Creatine Kinase Creatine Kinase Index CK-MB (CK-2) Troponin I B-Natriuretic Peptide Total Protein Albumin Urine Color Urine Appearance Urine pH Ur Specific [place] Urine Protein Urine Glucose (UA) Urine Ketones Urine Blood Urine Nitrite Urine Bilirubin Urine Urobilinogen Ur Leukocyte Esterase Urine WBC (Auto) Urine RBC (Auto) Active Medications Generic Name Dose Route Start Last Admin Trade Name Freq PRN Reason Stop Dose Admin Acetaminophen 650 mg 09/04/18 20:56 Tylenol - PO Q4H PRN FEVER Acetaminophen 1,000 mg 09/05/18 08:06 09/05/18 11:13 Ofirmev Injection - IVPB 1,000 mg Q6H PRN Administration FEVER Albuterol/Ipratropium 1 amp 09/05/18 08:00 09/05/18 12:14 Duoneb - NEB 1 amp RQID HUGO Administration Apixaban 5 mg 09/04/18 22:00 09/05/18 11:14 Eliquis - PO 5 mg BID HUGO Administration Aspirin 81 mg 09/04/18 22:00 09/04/18 23:55 Asa - PO Not Given HS HUGO Atorvastatin Calcium 80 mg 09/04/18 22:00 09/04/18 23:55 Lipitor - PO Not Given HS HUGO Chlorhexidine Gluconate 1 applic 09/05/18 00:45 09/05/18 00:50 Hibiclens For Decolonization - TP 1 applic HS HUGO Administration Duloxetine HCl 20 mg 09/04/18 22:00 09/05/18 11:14 Cymbalta - PO 20 mg BID HUGO Administration Hydrocortisone Sodium Succinate 100 mg 09/05/18 12:00 09/05/18 13:13 Solu-Cortef - IVPB 100 mg Q8H HUGO Administration Propofol 1,000,000 mcg in 100 mls @ 2.1 mls/hr 09/04/18 18:45 09/05/18 08:00 Diprivan - IVPB 15 mcg/kg/min TITR HUGO 6.3 mls/hr Titration Protocol 5 MCG/KG/MIN Dopamine HCl/Dextrose 400,000 mcg in 250 mls @ 13.125 mls/hr 09/04/18 22:30 09/05/18 09:30 Dopamine 400 Mg/D5w - IVPB 5 mcg/kg/min TITR HUGO 13.125 mls/hr Titration Protocol 5 MCG/KG/MIN Dextrose/Sodium Chloride 1,000 mls @ 42 mls/hr 09/05/18 01:00 09/05/18 01:30 D5-Ns - IV 42 mls/hr ASDIR HUGO Administration Vancomycin HCl 1,000 mg/ 250 mls @ 200 mls/hr 09/05/18 10:00 Dextrose IVPB Q24H HUGO Protocol Piperacillin Sod/Tazobactam 50 mls @ 100 mls/hr 09/05/18 06:00 Sod 3.375 gm/ Dextrose IVPB Q8H-IV HUGO Protocol Norepinephrine Bitartrate 8, 500 mls @ 8.35 mls/hr 09/05/18 08:00 09/05/18 10 :05 000 mcg/ Dextrose IV 20 mcg/kg/min ASDIR HUGO 5,572.5 mls/hr Titration Protocol 0.03 MCG/KG/MIN Insulin Aspart 1 vial 09/04/18 21:00 09/05/18 13:14 Novolog Vial Sliding Scale - SQ Not Given Q4H HUGO Protocol Mupirocin 1 applic 09/05/18 00:45 09/05/18 12:07 Bactroban Ointment (For Decolonization) - NS 09/10/18 00:44 1 applic BID HUGO Administration Mycophenolate Sodium 360 mg 09/04/18 22:00 09/05/18 12:07 Mycophenolic Acid PO 360 mg BID HUGO Administration Ranitidine HCl 150 mg 09/05/18 12:15 09/05/18 13:14 Zantac Oral Solution - GT 150 mg BID HUGO Administration Tacrolimus 1 mg 09/04/18 22:00 09/05/18 12:07 Prograf PO 1 mg BID HUGO Administration ASSESSMENT/PLAN: Demond Abel is a 78yo man with a PMH of IDDM, HTN, CAD s/p NV s/p CABG, CHF, previously ESRD on HD now s/p kidney transplant (2008) on immunosuppresion, previous DVT on apixaban, multiple previous hospitalizations and intubations for hypoglycemic episodes. He presented to the ED yesterday with AMS/lethargy, hypoglycemia, and respiratory distress as well as hypotension to the 70's. He was admitted with a working diagnosis of septic shock secondary to presumed pneumonia. Neuro: - Sedation with propofol. Plan to keep sedation in place today - AMS, nearly unresponsive, on arrival. May be due to hypoglycemia vs toxic metabolic encephalopathy from infectious process - Per daughter, has been increasingly "confused" over the past few years. No evaluation has been completed - Will need soft wrist restraints when off sedation - per daughter, has self- extubated multiple times CV: - Hypotension requiring BP support - On dopamine overnight. Norepinephrine started in morning. Plan to wean off dopamine, titrate norepinephrine to MAP 65 - 2L NS bolus this morning for BP support - Significant cardiac history. Continue home ASA, atorvastatin Pulm: - Mechanical ventilation; FiO2 down to 40% - Presumed pneumonia; possible LLL infiltrate - No plans to wean today - Duonebs Q6hr Heme: - Continue home apixaban - Monitor daily CBC GI: - NPO, OGT in place for meds - No tube feeds while on pressors, will start diet vs TF once requirement decreases Renal: - h/o kidney transplant. BUN/Cr at baseline - Monahan in place. - Monitor I/O - UA negative, culture pending - Followed by Dr Perez - recommending checking tacrolimus level and transplant ultrasound ID: - Working diagnosis septic shock, presumed pneumonia with WBC to 13, fever to 101.8 - Empiric vanc/zosyn - Blood and urine cultures pending - Dr Ziegler following Endo: - Presented with hypoglycemia at home to 27. Per chart review, multiple hypoglycemic episodes previously - Has IDDM. Monitor BG closely - On prednisone at home, 5mg daily. Stress dose steroids started - hydrocortisone 100mg Q8hr - Endo consult placed - recs pending Psych: - Continue home duloxetine Musc: - Turn Q2hr PPx: - Apixaban - Pantoprazole daily FEN: - NPO - D5 NS @ 42. 2L NS bolus today - Replete lytes PRN Dispo: - Monitor in ICU Seen and discussed with Dr Fischer. Gwendolyn Kimbrough PGY1 Visit type - Emergency Visit Emergency Visit: No - New Patient This patient is new to me today: Yes Date on this admission: 09/05/18 - Critical Care Critical Care patient: Yes Total Critical Care Time (in minutes): 45 Critical Care Statement: The care of this patient involved high complexity decision making to prevent further life threatening deterioration of the patient 's condition and/or to evaluate & treat vital organ system(s) failure or risk of failure.
--- NOTE | 2018-09-05 14:12 | CON.ID ---
Consult Consult Specialty:: infectious disease Referred by:: shayna Reason for Consultation:: fever - History of Present Illness Chief Complaint: hypoglycemia History of Present Illness: 78 yo male with DM, history of renal transplant 2008, labile blood sugars brought to ED by EMS FS was 21 when EMS arrived at patients house he was given d50 he became agitated and was wheezing and COONEY in ED- intubated to protect airway became hypotensive and required pressors per ER note- difficult intubation 'was hypothermic requiring bairhugger now with fever to 101.6 no diarrhea lactic acid 2.2 - History Source History Provided By: Medical Record - Past Medical History Cardio/Vascular: Yes: CAD, CHF, Deep Vein Thrombosis, HTN, [place], Other Renal/: Yes: Renal Inusuff, Other (S/P Kidney tranplant 2008) Infectious Disease: Yes: C-Diff, MRSA, Other (resistant E. coli in past, osteomyelitis of his finger) Endocrine: Yes: Diabetes Mellitus - Past Surgical History Past Surgical History: Yes: AV Fistula/Graft (right upper arm, non working), CABG, Kidney Transplant (right 2009) - Alcohol/Substance Use Hx Alcohol Use: No History of Substance Use: reports: None - Smoking History Smoking history: Unknown if ever smoked Have you smoked in the past 12 months: No Aproximately how many cigarettes per day: 0 - Social History Usual Living Arrangement: Alone ADL: Support Services Place of : Other History of Recent Travel: No Home Medications - Allergies Allergies/Adverse Reactions: Allergies Allergy/AdvReac Type Severity Reaction Status Date / Time No Known Drug Allergies Allergy Verified 05/20/18 18:32 - Home Medications Home Medications: Ambulatory Orders Acetaminophen [Tylenol .Regular Strength -] 650 mg PO Q4H PRN tablet 11/29/17 Albuterol 2.5/Ipratropium 0.5 [Duoneb -] 1 amp NEB QID 02/08/18 Amlodipine Besylate [Norvasc -] 10 mg PO DAILY #30 tablet 05/19/18 Apixaban [Eliquis] 5 mg PO BID #60 tablet 05/19/18 Aspirin [Jena Chewable Aspirin] 81 mg PO HS #30 tab.chew 05/19/18 Atorvastatin Ca [Lipitor] 80 mg PO HS #60 tablet 05/19/18 Carvedilol [Coreg -] 25 mg PO BID #60 tablet 05/19/18 Duloxetine HCl [Cymbalta] 20 mg PO BID #60 capsule. 05/19/18 Magnesium Oxide [Mag-Ox -] 400 mg PO BID tablet 05/19/18 Mycophenolate Sodium [Mycophenolic Acid] 360 mg PO BID #60 tablet. 05/19/18 Tacrolimus 1 mg PO BID #60 capsule 05/19/18 Tamsulosin HCl [Flomax] 0.4 mg PO HS #30 cap.er.24h 05/19/18 hydrALAZINE HCL [Apresoline -] 25 mg PO BID #60 tablet 05/19/18 predniSONE [Deltasone -] 20 mg PO DAILY #30 tablet 05/24/18 Apixaban [Eliquis -] 5 mg PO BID #60 tablet 05/26/18 Insulin Detemir [Levemir Flextouch] 16 unit SQ DAILY #1 insuln.pen 05/26/18 Family Disease History - Family Disease History Family History: Unable to Obtain Physical Exam Vital Signs: Vital Signs Temperature 100.8 F H 09/05/18 13:30 Pulse Rate 75 09/05/18 13:30 Respiratory Rate 19 09/05/18 13:30 Blood Pressure 148/42 L 09/05/18 13:30 O2 Sat by Pulse Oximetry (%) 100 09/05/18 01:36 Constitutional: Yes: Other (intubated, sedated, on dopamine and levophed) Eyes: Yes: Conjunctiva Clear HENT: Yes: Atraumatic, Normocephalic, Other (orally intubated) Neck: Yes: Supple Cardiovascular: Yes: Regular Rate and Rhythm Respiratory: Yes: Regular, CTA Bilaterally Gastrointestinal: Yes: Normal Bowel Sounds, Soft ...Rectal Exam: Yes: Deferred Extremities: Yes: Other (suplrficial ulcer on lateral aspect of the right hand ring finger) Neurological: Yes: Other (sedated) Labs: CBC, BMP 09/05/18 09:30 09/05/18 09:30 Microbiology 09/04/18 16:40 Blood - Peripheral Venous Blood Culture - Preliminary Pending Organism Imaging - Results Chest X-ray: Report Reviewed, Image Reviewed (?RLL infiltrate, ?LLL infiltrate ( dense retrocardiac area)) Cat Scan: Report Reviewed Problem List - Problems (1) Sepsis Code(s): A41.9 - SEPSIS, UNSPECIFIED ORGANISM (2) Acute respiratory failure Code(s): J96.00 - ACUTE RESPIRATORY FAILURE, UNSP W HYPOXIA OR HYPERCAPNIA (3) PNA (pneumonia) Code(s): J18.9 - PNEUMONIA, UNSPECIFIED ORGANISM Qualifiers: Pneumonia type: due to unspecified organism Laterality: unspecified laterality Lung location: unspecified part of lung Qualified Code(s): J18.9 - Pneumonia, unspecified organism (4) Bacteremia Code(s): R78.81 - BACTEREMIA (5) History of MRSA infection Code(s): Z86.14 - PERSONAL HISTORY OF METHICILLIN RESIS STAPH INFECTION (6) H/O kidney transplant Code(s): Z94.0 - KIDNEY TRANSPLANT STATUS (7) DM2 (diabetes mellitus, type 2) Code(s): E11.9 - TYPE 2 DIABETES MELLITUS WITHOUT COMPLICATIONS Qualifiers: Diabetes mellitus residential insulin use: with residential use Assessment/Plan sepsis with fever and hypotension cultures one bottle GPC clusters-?MRSA history of MRSA nares colonization ?pneumonia- possible aspiration since difficult intubation and new RLL infiltrate after intubation prolonged qt interval immunocompromised host secondary to renal transplant meds continue vanco/zosyn sputum culture legionella urinary antigen contact isolation f/u cultures over 45 minutes spent in the care of this critically ill ICU patient
[2018-09-05] MEDS ORDERED: PIPERACILLIN/TAZOBACTAM 4.5 GM VIAL IVPB ONE (16:51)
[2018-09-05] MEDS ORDERED: DEXTROSE 5%-WATER 100 ML IVPB ONE (16:52)
[2018-09-05] MEDS: PIPERACILLIN/TAZOB 4.5 GM 4.5 GM in DEXTROSE 5%-WATER 100 ML IVPB SCH (17:45)
[2018-09-05] MEDS: PROPOFOL 1,000,000 MCG/100 ML VIAL IVPB SCH (18:45)
--- NOTE | 2018-09-05 21:05 | PN ---
Progress Note (short form) - Note Progress Note: Patient self extubated despite being sedated with propofol. subsequently placed on ventimask 50% Fio2 satting 97 %. sedation now off. Seen by respiratory. on exam has upper respiratory secretions but good b/l air movement. rrr s1s2. denies sb or cp. will keep on ventimask with frequent suctioning and head of bed elevation.
[2018-09-05] MEDS: VANCOMYCIN 1 GRAM (PRE-DOCKED) 1,000 MG/250 ML BAG IVPB SCH (21:48)
[2018-09-05] MEDS: ATORVASTATIN CA 40 MG TABLET (FP) PO SCH (22:00)
[2018-09-05] MEDS: ASPIRIN 81 MG CHEWABLE TABLETS PO SCH (23:05)
[2018-09-05] MEDS: DOPAMINE 400 MG/D5W - 400,000 MCG/250 ML INFUS.BAG IVPB SCH (23:10)
--- NOTE | 2018-09-05 23:56 | CONSULT ---
Consult Consult Specialty:: endocrine Referred by:: dr.annabi jackson Reason for Consultation:: diabetes mellitus / hypoglycemia unawareness - History of Present Illness Chief Complaint: hypoglycemia History of Present Illness: 78 year old male with PMH of Renal transplant (on immunosuppression; '09), DM, and prior arrests noted with hypoglycemia and resp failure, recent DVT (LLE on elqiuis) who comes in for hypoglycemia and agitation. Per EMS they arrived on the scene and he had a FS of 21 which came up to 421 after some D50,intubated for respiratory failure,has labile blood sugars,non compliant with diet often insulin doses. family found patient at home unarouseble and called ems for help, and was brought to hospital. - Past Medical History Cardio/Vascular: Yes: CAD, CHF, Deep Vein Thrombosis, HTN, PR, Other Renal/: Yes: Renal Inusuff, Other (S/P Kidney tranplant 2008) Infectious Disease: Yes: C-Diff, MRSA, Other (resistant E. coli in past, osteomyelitis of his finger) Endocrine: Yes: Diabetes Mellitus - Past Surgical History Past Surgical History: Yes: AV Fistula/Graft (right upper arm, non working), CABG, Kidney Transplant (right 2008) - Alcohol/Substance Use Hx Alcohol Use: No History of Substance Use: reports: None - Smoking History Smoking history: Unknown if ever smoked Have you smoked in the past 12 months: No Aproximately how many cigarettes per day: 0 - Social History Usual Living Arrangement: Alone ADL: Support Services History of Recent Travel: No Home Medications - Allergies Allergies/Adverse Reactions: Allergies Allergy/AdvReac Type Severity Reaction Status Date / Time No Known Drug Allergies Allergy Verified 05/20/18 18:32 - Home Medications Home Medications: Ambulatory Orders Acetaminophen [Tylenol .Regular Strength -] 650 mg PO Q4H PRN tablet 11/29/17 Albuterol 2.5/Ipratropium 0.5 [Duoneb -] 1 amp NEB QID 02/08/18 Amlodipine Besylate [Norvasc -] 10 mg PO DAILY #30 tablet 05/19/18 Apixaban [Eliquis] 5 mg PO BID #60 tablet 05/19/18 Aspirin [Jena Chewable Aspirin] 81 mg PO HS #30 tab.chew 05/19/18 Atorvastatin Ca [Lipitor] 80 mg PO HS #60 tablet 05/19/18 Carvedilol [Coreg -] 25 mg PO BID #60 tablet 05/19/18 Duloxetine HCl [Cymbalta] 20 mg PO BID #60 capsule. 05/19/18 Magnesium Oxide [Mag-Ox -] 400 mg PO BID tablet 05/19/18 Mycophenolate Sodium [Mycophenolic Acid] 360 mg PO BID #60 tablet. 05/19/18 Tacrolimus 1 mg PO BID #60 capsule 05/19/18 Tamsulosin HCl [Flomax] 0.4 mg PO HS #30 cap.er.24h 05/19/18 hydrALAZINE HCL [Apresoline -] 25 mg PO BID #60 tablet 05/19/18 predniSONE [Deltasone -] 20 mg PO DAILY #30 tablet 05/24/18 Apixaban [Eliquis -] 5 mg PO BID #60 tablet 05/26/18 Insulin Detemir [Levemir Flextouch] 16 unit SQ DAILY #1 insuln.pen 05/26/18 Review of Systems Unable to obtain ROS, reason: intubated Physical Exam Vital Signs: Vital Signs Temperature 99.4 F 09/05/18 22:00 Pulse Rate 70 09/05/18 22:00 Respiratory Rate 17 09/05/18 22:00 Blood Pressure 112/75 09/05/18 22:00 O2 Sat by Pulse Oximetry (%) 97 09/05/18 21:30 Constitutional: Yes: Calm Eyes: Yes: EOM Intact HENT: Yes: Normocephalic Neck: Yes: Trachea Midline Cardiovascular: Yes: Tachycardia Respiratory: Yes: Intubated, Rales, Rhonchi Gastrointestinal: Yes: WNL ...Rectal Exam: Yes: Deferred Renal/: Yes: WNL Breast(s): Yes: WNL Musculoskeletal: Yes: WNL Extremities: Yes: WNL Edema: Yes Edema: LLE: 1+, RLE: 1+ Neurological: Yes: Lethargy, Other (sedated) Labs: CBC, BMP 09/05/18 09:30 09/05/18 09:30 Problem List - Problems (1) Acute metabolic encephalopathy Code(s): G93.41 - METABOLIC ENCEPHALOPATHY (2) Bacteremia Code(s): R78.81 - BACTEREMIA (3) Change in mental status Code(s): R41.82 - ALTERED MENTAL STATUS, UNSPECIFIED Qualifiers: Altered mental status type: delirium Qualified Code(s): R41.0 - Disorientation, unspecified (4) Hypoglycemia Code(s): E16.2 - HYPOGLYCEMIA, UNSPECIFIED (5) Kidney transplant recipient Code(s): Z94.0 - KIDNEY TRANSPLANT STATUS (6) CHUCK (acute kidney injury) Code(s): N17.9 - ACUTE KIDNEY FAILURE, UNSPECIFIED (7) Acute respiratory failure Code(s): J96.00 - ACUTE RESPIRATORY FAILURE, UNSP W HYPOXIA OR HYPERCAPNIA (8) Acute type 2 diabetes mellitus with manifestations Code(s): E11.8 - TYPE 2 DIABETES MELLITUS WITH UNSPECIFIED COMPLICATIONS Assessment/Plan Current Active Problems Acute metabolic encephalopathy (Acute) Bacteremia (Acute) Change in mental status (Acute) Hypoglycemia (Acute) Kidney transplant recipient (Chronic) diabetes mellitus 2 neurohypoglycemia unawareness Abnormal Lab Results 09/05/18 09/05/18 09/05/18 07:00 09:30 09:30 WBC 13.7 H RDW 16.7 H Absolute Neuts (auto) 10.4 H Monocytes % 10.9 H ABG pCO2 at Pt Temp 34.7 L ABG pO2 at Pt Temp 209.0 H* D ABG O2 Sat (Measured) 99.1 H Chloride 108 H Anion Gap 6 L BUN 33 H Random Glucose 69 L Calcium 7.8 L Magnesium 1.5 L Total Protein 4.9 L Albumin 2.6 L Laboratory Results - last 24 hr 09/05/18 09/05/18 09/05/18 00:16 01:47 03:09 WBC RBC Hgb Hct MCV MCH MCHC RDW Plt Count MPV Absolute Neuts (auto) Neutrophils % Neutrophils % (Manual) Band Neutrophils % Lymphocytes % Lymphocytes % (Manual) Monocytes % Monocytes % (Manual) Eosinophils % Eosinophils % (Manual) Basophils % Basophils % (Manual) Myelocytes % (Man) Promyelocytes % (Man) Blast Cells % (Manual) Nucleated RBC % Metamyelocytes Hypochromia Toxic Granulation Dohle Bodies Platelet Estimate Polychromasia Poikilocytosis Basophilic Stippling Anisocytosis Microcytosis Macrocytosis Spherocytes Sickle Cells Target Cells Tear Drop Cells Ovalocytes Stomatocytes Helmet Cells [place] Bodies [place] Rings [place]any Cells Acanthocytes (Spur) Rouleaux Fragmented RBCs Schistocytes Puncture Site ABG pH ABG pCO2 at Pt Temp ABG pO2 at Pt Temp ABG HCO3 ABG O2 Sat (Measured) ABG O2 Content ABG Base Excess Patrice Test O2 Delivery Device Oxygen Flow Rate Vent Mode Vent Rate Mechanical Rate PEEP Pressure Support Vent Sodium Potassium Chloride Carbon Dioxide Anion Gap BUN Creatinine Creat Clearance w eGFR POC Glucometer < 50 78.03533 54.30791 Random Glucose Lactic Acid Calcium Phosphorus Magnesium Total Bilirubin AST ALT Alkaline Phosphatase Total Protein Albumin 09/05/18 09/05/18 09/05/18 05:09 07:00 07:53 WBC RBC Hgb Hct MCV MCH MCHC RDW Plt Count MPV Absolute Neuts (auto) Neutrophils % Neutrophils % (Manual) Band Neutrophils % Lymphocytes % Lymphocytes % (Manual) Monocytes % Monocytes % (Manual) Eosinophils % Eosinophils % (Manual) Basophils % Basophils % (Manual) Myelocytes % (Man) Promyelocytes % (Man) Blast Cells % (Manual) Nucleated RBC % Metamyelocytes Hypochromia Toxic Granulation Dohle Bodies Platelet Estimate Polychromasia Poikilocytosis Basophilic Stippling Anisocytosis Microcytosis Macrocytosis Spherocytes Sickle Cells Target Cells Tear Drop Cells Ovalocytes Stomatocytes Helmet Cells [place] Bodies [place] Rings [place] Cells Acanthocytes (Spur) Rouleaux Fragmented RBCs Schistocytes Puncture Site Right radial ABG pH 7.43 ABG pCO2 at Pt Temp 34.7 L ABG pO2 at Pt Temp 209.0 H* D ABG HCO3 22.8 ABG O2 Sat (Measured) 99.1 H ABG O2 Content 19.5 ABG Base Excess -0.4 Patrice Test Positive O2 Delivery Device Mech vent Oxygen Flow Rate 100% Vent Mode A/c Vent Rate 12 Mechanical Rate Yes PEEP 5.0 Pressure Support Vent 400 Sodium Potassium Chloride Carbon Dioxide Anion Gap BUN Creatinine Creat Clearance w eGFR POC Glucometer 103.28521 85.34710 Random Glucose Lactic Acid Calcium Phosphorus Magnesium Total Bilirubin AST ALT Alkaline Phosphatase Total Protein Albumin 09/05/18 09/05/18 09/05/18 09:30 09:30 09:30 WBC 13.7 H RBC 4.42 Hgb 13.0 Hct 38.6 MCV 87.4 MCH 29.4 MCHC 33.7 RDW 16.7 H Plt Count 172 MPV 8.6 Absolute Neuts (auto) 10.4 H Neutrophils % 75.7 D Neutrophils % (Manual) 78.0 D Band Neutrophils % 4.0 Lymphocytes % 12.2 D Lymphocytes % (Manual) 8.0 D Monocytes % 10.9 H Monocytes % (Manual) 5 D Eosinophils % 0.7 Eosinophils % (Manual) 0.0 D Basophils % 0.5 Basophils % (Manual) 0.0 Myelocytes % (Man) 0 D Promyelocytes % (Man) 0 Blast Cells % (Manual) 0 Nucleated RBC % 0 Metamyelocytes 0 Hypochromia 0 Toxic Granulation 0 Dohle Bodies 0 Platelet Estimate Normal Polychromasia 0 Poikilocytosis 0 Basophilic Stippling 0 Anisocytosis 0 Microcytosis 0 Macrocytosis 0 Spherocytes 0 Sickle Cells 0 Target Cells 0 Tear Drop Cells 0 Ovalocytes 0 Stomatocytes 0 Helmet Cells 0 [place] Bodies 0 [place] Rings 0 Hany Cells 0 Acanthocytes (Spur) 0 Rouleaux 0 Fragmented RBCs 0 Schistocytes 0 Puncture Site ABG pH ABG pCO2 at Pt Temp ABG pO2 at Pt Temp ABG HCO3 ABG O2 Sat (Measured) ABG O2 Content ABG Base Excess Patrice Test O2 Delivery Device Oxygen Flow Rate Vent Mode Vent Rate Mechanical Rate PEEP Pressure Support Vent Sodium 137 Potassium 4.1 Chloride 108 H Carbon Dioxide 23 Anion Gap 6 L BUN 33 H Creatinine 0.8 Creat Clearance w eGFR > 60 POC Glucometer Random Glucose 69 L Lactic Acid 0.9 Calcium 7.8 L Phosphorus 3.2 Magnesium 1.5 L Total Bilirubin 0.6 AST 31 ALT 37 Alkaline Phosphatase 51 Total Protein 4.9 L Albumin 2.6 L 09/05/18 09/05/18 09/05/18 11:18 13:11 17:02 WBC RBC Hgb Hct MCV MCH MCHC RDW Plt Count MPV Absolute Neuts (auto) Neutrophils % Neutrophils % (Manual) Band Neutrophils % Lymphocytes % Lymphocytes % (Manual) Monocytes % Monocytes % (Manual) Eosinophils % Eosinophils % (Manual) Basophils % Basophils % (Manual) Myelocytes % (Man) Promyelocytes % (Man) Blast Cells % (Manual) Nucleated RBC % Metamyelocytes Hypochromia Toxic Granulation Dohle Bodies Platelet Estimate Polychromasia Poikilocytosis Basophilic Stippling Anisocytosis Microcytosis Macrocytosis Spherocytes Sickle Cells Target Cells Tear Drop Cells Ovalocytes Stomatocytes Helmet Cells [place] Bodies [place] Rings [place]any Cells Acanthocytes (Spur) Rouleaux Fragmented RBCs Schistocytes Puncture Site ABG pH ABG pCO2 at Pt Temp ABG pO2 at Pt Temp ABG HCO3 ABG O2 Sat (Measured) ABG O2 Content ABG Base Excess Patrice Test O2 Delivery Device Oxygen Flow Rate Vent Mode Vent Rate Mechanical Rate PEEP Pressure Support Vent Sodium Potassium Chloride Carbon Dioxide Anion Gap BUN Creatinine Creat Clearance w eGFR POC Glucometer 72.27417 88.86744 140.07446 Random Glucose Lactic Acid Calcium Phosphorus Magnesium Total Bilirubin AST ALT Alkaline Phosphatase Total Protein Albumin 09/05/18 21:24 WBC RBC Hgb Hct MCV MCH MCHC RDW Plt Count MPV Absolute Neuts (auto) Neutrophils % Neutrophils % (Manual) Band Neutrophils % Lymphocytes % Lymphocytes % (Manual) Monocytes % Monocytes % (Manual) Eosinophils % Eosinophils % (Manual) Basophils % Basophils % (Manual) Myelocytes % (Man) Promyelocytes % (Man) Blast Cells % (Manual) Nucleated RBC % Metamyelocytes Hypochromia Toxic Granulation Dohle Bodies Platelet Estimate Polychromasia Poikilocytosis Basophilic Stippling Anisocytosis Microcytosis Macrocytosis Spherocytes Sickle Cells Target Cells Tear Drop Cells Ovalocytes Stomatocytes Helmet Cells [place] Bodies [place] Rings [place] Cells Acanthocytes (Spur) Rouleaux Fragmented RBCs Schistocytes Puncture Site ABG pH ABG pCO2 at Pt Temp ABG pO2 at Pt Temp ABG HCO3 ABG O2 Sat (Measured) ABG O2 Content ABG Base Excess Patrice Test O2 Delivery Device Oxygen Flow Rate Vent Mode Vent Rate Mechanical Rate PEEP Pressure Support Vent Sodium Potassium Chloride Carbon Dioxide Anion Gap BUN Creatinine Creat Clearance w eGFR POC Glucometer 254.49124 Random Glucose Lactic Acid Calcium Phosphorus Magnesium Total Bilirubin AST ALT Alkaline Phosphatase Total Protein Albumin plan: iv solucortef adrenal dependent/stress doses bgm q4hrs novolog insulin doses iv fluid iv antibiotic respiratory support
--- NOTE | 2018-09-06 00:25 | CONSULT ---
Consult - text type - Consultation Consultation Note: NEUROLOGY CONSULTATION is greatly appreciated: This 78 yo RH man lives with his family. PMH sig for IDDM, HTN, PAD, CAD s/p CT (s/p CABG), CHF, ESRD- on HD until 2008. Now s/p Renal Transplant (on immunosuppressants). Found unresponsive when family returned from shopping with severe hypoglycemia. Intubated and ventilated. Self-extubated this evening. GILBERT: Neck supple. No bruits. Cor reg. Pressure necrosis right digit IV AV fistula right arm. NEURO: Awake, alert. Follows commands. Sparse, hoarse speech. Ox [place]. Trump but insists it is June. Full feng and EOMs. Right grasp is weak but no drift. B/L ankle dorsiflexion weakness (4-/5) Areflexic in legs IMP: Probably a non-focal exam. Right hand weakness more likely of peripheral than central etiology (and appears to be chronic)> Diabetic peripheral Neuropathy (severe). Probably has a moderate, underlying OMS. Now worsened by toxic-metabolic encephalpathy. SUGGEST: Continue current management Check B12, TSH, RPR Review prior neuro evals for chronic features CT of head when stable. Thank you very much, Huy George MD
[2018-09-06] MEDS ORDERED: PIPERACILLIN/TAZOBACTAM 4.5 GM VIAL IVPB ONE (01:21)
[2018-09-06] MEDS ORDERED: DEXTROSE 5%-WATER 100 ML IVPB ONE (01:21)
[2018-09-06] MEDS: PIPERACILLIN/TAZOB 4.5 GM 4.5 GM in DEXTROSE 5%-WATER 100 ML IVPB SCH (01:34)
[2018-09-06] MEDS: DEXTROSE 5%-NORMAL SALINE 1,000 ML IV SCH (01:35)
[2018-09-06] MEDS: INSULIN SLIDING SCALE (NOVOLOG) 1 VIAL SQ SCH ×6 (01:52→22:45)
[2018-09-06] MEDS ORDERED: NOREPINEPHRINE BITARTRATE 4 MG/4 ML ML IV ONE (02:25)
[2018-09-06] MEDS: HYDROCORTISONE SOD SUCCINATE 100 MG/2 ML VIAL IVPB SCH ×3 (04:10→20:22)
--- NOTE | 2018-09-06 07:55 | PN ---
Progress Note, Physician - Current Medication List Current Medications: Active Medications Acetaminophen (Tylenol -) 650 mg PO Q4H PRN PRN Reason: FEVER Acetaminophen (Ofirmev Injection -) 1,000 mg IVPB Q6H PRN PRN Reason: FEVER Last Admin: 09/05/18 11:13 Dose: 1,000 mg Albuterol/Ipratropium (Duoneb -) 1 amp NEB RQID [facility]GO Last Admin: 09/05/18 21:00 Dose: 1 amp Apixaban (Eliquis -) 5 mg PO BID HUGO Last Admin: 09/05/18 22:00 Dose: Not Given Aspirin (Asa -) 81 mg PO HS HUGO Last Admin: 09/05/18 23:05 Dose: Not Given Atorvastatin Calcium (Lipitor -) 80 mg PO HS HUGO Last Admin: 09/05/18 22:00 Dose: Not Given Chlorhexidine Gluconate (Hibiclens For Decolonization -) 1 applic TP HS HUGO Last Admin: 09/05/18 21:50 Dose: 1 applic Duloxetine HCl (Cymbalta -) 20 mg PO BID HUGO Last Admin: 09/05/18 22:00 Dose: Not Given Hydrocortisone Sodium Succinate (Solu-Cortef -) 100 mg IVPB Q8H HUGO Last Admin: 09/06/18 04:10 Dose: 100 mg Propofol (Diprivan -) 1,000,000 mcg in 100 mls @ 2.1 mls/hr IVPB TITR [facility]; Protocol Last Titration: 09/05/18 21:05 Dose: 0 mcg/kg/min, 0 mls/hr Dopamine HCl/Dextrose (Dopamine 400 Mg/D5w -) 400,000 mcg in 250 mls @ 13.125 mls/hr IVPB TITR [facility]; Protocol Last Admin: 09/05/18 23:10 Dose: Not Given Dextrose/Sodium Chloride (D5-Ns -) 1,000 mls @ 42 mls/hr IV ASDIR HUGO Last Admin: 09/06/18 01:35 Dose: 42 mls/hr Norepinephrine Bitartrate 8, (000 mcg/ Dextrose) 500 mls @ 8.35 mls/hr IV ASDIR [facility]GO; Protocol Last Titration: 09/06/18 01:00 Dose: 10 mcg/kg/min, 2,786.25 mls/hr Vancomycin HCl (Vancomycin (Pre-Docked)) 1,000 mg in 250 mls @ 166.667 mls/hr IVPB Q12H [facility]; Protocol Last Admin: 09/05/18 21:48 Dose: 166.667 mls/hr Piperacillin Sod/Tazobactam (Sod 4.5 gm/ Dextrose) 100 mls @ 200 mls/hr IVPB Q8H-IV [facility]; Protocol Last Admin: 09/06/18 01:34 Dose: 200 mls/hr Insulin Aspart (Novolog Vial Sliding Scale -) 1 vial SQ Q4HPO [facility]; Protocol Last Admin: 09/06/18 06:36 Dose: 3 units Mupirocin (Bactroban Ointment (For Decolonization) -) 1 applic NS BID [facility] Stop: 09/10/18 00:44 Last Admin: 09/05/18 22:00 Dose: 1 applic Mycophenolate Sodium (Mycophenolic Acid) 360 mg PO BID [facility] Last Admin: 09/05/18 22:00 Dose: Not Given Ranitidine HCl (Zantac Oral Solution -) 150 mg GT BID [facility] Last Admin: 09/05/18 22:00 Dose: Not Given Tacrolimus (Prograf) 1 mg PO BID [facility] Last Admin: 09/05/18 22:00 Dose: Not Given - Objective Vital Signs: Vital Signs Temperature 98.9 F 09/06/18 06:00 Pulse Rate 64 09/06/18 06:00 Respiratory Rate 19 09/06/18 06:00 Blood Pressure 149/55 L 09/06/18 06:00 O2 Sat by Pulse Oximetry (%) 98 09/06/18 03:45 Labs: CBC, BMP 09/05/18 09:30 09/05/18 09:30 INR, PTT INR 1.01 (0.83-1.09) 09/04/18 16:15 Problem List - Problems (1) Acute metabolic encephalopathy Assessment/Plan: extubated icu support shrestha cultured-positive bc zosyn/ vanco for broad coverage pressor Code(s): R41.82 - ALTERED MENTAL STATUS, UNSPECIFIED Qualifiers: Altered mental status type: delirium Qualified Code(s): R41.0 - Disorientation, unspecified Code(s): G93.41 - METABOLIC ENCEPHALOPATHY (2) Change in mental status Assessment/Plan: extubted toxic-metabolic monitor still with confusion Code(s): R41.82 - ALTERED MENTAL STATUS, UNSPECIFIED Qualifiers: Altered mental status type: delirium Qualified Code(s): R41.0 - Disorientation, unspecified (3) Adrenal insufficiency Assessment/Plan: Steroids per ID Code(s): E27.40 - UNSPECIFIED ADRENOCORTICAL INSUFFICIENCY (4) Bacteremia Assessment/Plan: Iv abx per ID Microbiology 09/04/18 16:15 Blood Culture - Preliminary Blood - Peripheral Venous Staphylococcus Coagulase Neg 09/04/18 16:40 Blood Culture - Preliminary Blood - Peripheral Venous Presumptive Mrsa (Pbp2a Pos) Code(s): R78.81 - BACTEREMIA (5) Kidney transplant recipient Assessment/Plan: prgraf,mycophenolic acid and prednisone Code(s): Z94.0 - KIDNEY TRANSPLANT STATUS (6) DM2 (diabetes mellitus, type 2) Assessment/Plan: With Hypoglycemia--may have shireen due to sepsis endocrine consult dextrose given in sliding scale Code(s): E11.9 - TYPE 2 DIABETES MELLITUS WITHOUT COMPLICATIONS Qualifiers: Diabetes mellitus terminal gauger supervisor insulin use: with terminal gauger supervisor use (7) Left leg DVT Assessment/Plan: ivc filtre eliquis Code(s): I82.402 - ACUTE EMBOLISM AND THOMBOS UNSP DEEP VEINS OF L LOW EXTREM Qualifiers: Affected thrombotic vein of extremity: other lower extremity vein Chronicity: acute Qualified Code(s): I82.492 - Acute embolism and thrombosis of other specified deep vein of left lower extremity
[2018-09-06 08:06] LABS: BASO % 0.5 % (0-2.0); HEMATOCRIT 36.4 % (35.4-49); HEMOGLOBIN 11.6 GM/dL (11.7-16.9); LYMPH % 8.1 % (8-40); MCH 28.5 pg (25.7-33.7); MEAN CELL VOLUME 89.1 fl (80-96); MEAN PLT VOLUME 8.5 fl (7.5-11.1); MONO % 5.5 % (3.8-10.2); NEUT % 85.9 % (42.8-82.8); PLATELET COUNT 188 K/MM3 (134-434); RBC 4.08 M/mm3 (4.00-5.60); RDW 16.9 % (11.9-15.9); WHITE BLOOD COUNT 16.2 K/mm3 (4.0-10.0)
[2018-09-06 08:17] LABS: ALBUMIN 2.6 g/dl (3.4-5.0); ALK PHOS 55 U/L (45-117); ANION GAP 7 MMOL/L (8-16); BILIRUBIN,TOTAL 0.5 mg/dL (0.2-1); BLOOD UREA NITROGEN 34 mg/dL (7-18); CALCIUM 7.8 mg/dL (8.5-10.1); CHLORIDE 107 mmol/L (98-107); CO2 21 mmol/L (21-32); CREATININE 1.4 mg/dL (0.55-1.3); GLUCOSE,RANDOM 196 mg/dL (74-106); MAGNESIUM 2.2 mg/dL (1.8-2.4); POTASSIUM 4.3 mmol/L (3.5-5.1); SGOT/AST 28 U/L (15-37); SGPT/ALT 32 U/L (13-61); SODIUM 135 mmol/L (136-145)
[2018-09-06] MEDS: NOREPINEPHRINE BITARTRATE 8,000 MCG in DEXTROSE 5%-WATER - 492 ML IV SCH (08:30)
[2018-09-06] MEDS: ALBUTEROL SO4 2.5/IPRATROPIUM 0.5 INH SOL 3 ML VIAL.NEB. NEB SCH ×4 (08:50→21:30)
[2018-09-06] MEDS ORDERED: PIPERACILLIN/TAZOB 4.5 GM 3.375 GM in DEXTROSE 5%-WATER 100 ML IVPB SCH (09:08)
--- NOTE | 2018-09-06 09:13 | PN ---
Progress Note (short form) - Note Progress Note: alert following commands self extubated last night pressors being tapered Vital Signs Period Temp Pulse Resp BP Sys/Mendoza Pulse Ox Last 24 Hr 98.4 F-101.6 F 63-98 12-21 105-154/29-75 97-98 cor-rrr lungs decreased bs at bases abd soft,nt +right femoral cvp ext no edema dry abrasion left hand fourth finger CBC, BMP 09/06/18 05:30 09/06/18 05:30 Microbiology 09/04/18 16:40 Blood - Peripheral Venous Blood Culture - Preliminary Presumptive Mrsa (Pbp2a Pos) 09/04/18 16:15 Blood - Peripheral Venous Blood Culture - Preliminary Staphylococcus Coagulase Neg cxray pending a/p sepsis-pressors being tapered gram positive bacteremia by timing looks like blood cultures were drawn before central line was placed repeat blood cultures/echo ordered vancomycin trough ordered resp failure- self extubated renal transplant elevated creatinine- antibiotics adjusted f/kim labs, cultures, CXRAY continue vanco/zosyn Problem List - Problems (1) Sepsis Code(s): A41.9 - SEPSIS, UNSPECIFIED ORGANISM (2) Acute respiratory failure Code(s): J96.00 - ACUTE RESPIRATORY FAILURE, UNSP W HYPOXIA OR HYPERCAPNIA (3) PNA (pneumonia) Code(s): J18.9 - PNEUMONIA, UNSPECIFIED ORGANISM Qualifiers: Pneumonia type: due to unspecified organism Laterality: unspecified laterality Lung location: unspecified part of lung Qualified Code(s): J18.9 - Pneumonia, unspecified organism (4) Bacteremia Code(s): R78.81 - BACTEREMIA (5) History of MRSA infection Code(s): Z86.14 - PERSONAL HISTORY OF METHICILLIN RESIS STAPH INFECTION (6) H/O kidney transplant Code(s): Z94.0 - KIDNEY TRANSPLANT STATUS (7) DM2 (diabetes mellitus, type 2) Code(s): E11.9 - TYPE 2 DIABETES MELLITUS WITHOUT COMPLICATIONS Qualifiers: Diabetes mellitus correction insulin use: with terminal clerk use
[2018-09-06] MEDS ORDERED: PT OWN MED DRAWER 7, Y5N ONE (09:23)
[2018-09-06] MEDS: MUPIROCIN 2% TOPICAL OINTMENT FOR DECOLONIZATION NS SCH ×2 (09:41→21:48)
[2018-09-06] MEDS: MYCOPHENOLATE SODIUM 360 MG TABLET.DR PO SCH ×2 (09:42→22:35)
[2018-09-06] MEDS: APIXABAN 5 MG TABLET PO SCH ×2 (09:43→21:46)
[2018-09-06] MEDS: RANITIDINE HCL 150 MG/10 ML UNIT-DOSE GT SCH ×2 (09:43→21:46)
[2018-09-06] MEDS: DULoxetine HCL 20 MG CAPSULE.DR (FP) PO SCH ×2 (09:49→21:46)
[2018-09-06] MEDS: TACROLIMUS ANHYDROUS 1 MG CAPSULE PO SCH ×2 (09:49→22:40)
[2018-09-06 10:08] LABS: ARTERIAL BLD GAS O2 SATURATION 97.9 % (90-98.9); ARTERIAL BLOOD GAS BASE EXCESS -3.4 meq/l (-2-2); ARTERIAL BLOOD GAS PCO2 34.1 mmHg (35-45); ARTERIAL BLOOD GAS pH 7.39 (7.35-7.45)
[2018-09-06 10:11] LABS: ALLENS TEST POSITIVE
[2018-09-06] MEDS ORDERED: PIPERACILLIN/TAZOB 4.5 GM 4.5 GM in DEXTROSE 5%-WATER 100 ML IVPB SCH (11:15)
[2018-09-06] MEDS: VANCOMYCIN 1 GRAM (PRE-DOCKED) 1,000 MG/250 ML BAG IVPB SCH ×2 (11:24→21:46)
[2018-09-06] MEDS ORDERED: FUROSEMIDE 40 MG/4 ML INJECTABLE VIAL IVPUSH ONE (11:54)
--- NOTE | 2018-09-06 11:54 | PN ---
Teaching Attending Note Name of Resident: Gwendolyn Kimbrough ATTENDING PHYSICIAN STATEMENT I saw and evaluated the patient. I reviewed the resident's note and discussed the case with the resident. I agree with the resident's findings and plan as documented. SUBJECTIVE: Pt seen and examined in the ICU. Self-extubated overnight. Currently on ventimask. On lower dose pressor support. Blood cultures growing presumptive MRSA. OBJECTIVE: Vital Signs Period Temp Pulse Resp BP Sys/Mendoza Pulse Ox Last 24 Hr 98.4 F-100.8 F 63-98 12-20 112-154/34-75 97-100 Intake & Output 09/03/18 09/04/18 09/05/18 09/06/18 23:59 23:59 23:59 23:59 Intake Total 4379.1 744 Output Total 1000 500 Balance 3379.1 244 Weight 74.3 kg 74.3 kg 79.061 kg Gen: extubated, mildly tachypneic Heart: RRR Lung: scattered rhonchi Abd: soft, nontender Ext: no edema, left finger wound CBC, BMP 09/06/18 05:30 09/06/18 05:30 Active Medications Acetaminophen (Tylenol -) 650 mg PO Q4H PRN PRN Reason: FEVER Acetaminophen (Ofirmev Injection -) 1,000 mg IVPB Q6H PRN PRN Reason: FEVER Last Admin: 09/05/18 11:13 Dose: 1,000 mg Albuterol/Ipratropium (Duoneb -) 1 amp NEB RQID [facility] Last Admin: 09/06/18 11:48 Dose: 1 amp Apixaban (Eliquis -) 5 mg PO BID [facility] Last Admin: 09/06/18 09:43 Dose: 5 mg Aspirin (Asa -) 81 mg PO [facility] Last Admin: 09/05/18 23:05 Dose: Not Given Atorvastatin Calcium (Lipitor -) 80 mg PO [facility] Last Admin: 09/05/18 22:00 Dose: Not Given Chlorhexidine Gluconate (Hibiclens For Decolonization -) 1 applic TP [facility] Last Admin: 09/05/18 21:50 Dose: 1 applic Duloxetine HCl (Cymbalta -) 20 mg PO BID [facility] Last Admin: 09/06/18 09:49 Dose: 20 mg Hydrocortisone Sodium Succinate (Solu-Cortef -) 100 mg IVPB Q8H [facility] Last Admin: 09/06/18 11:24 Dose: 100 mg Dopamine HCl/Dextrose (Dopamine 400 Mg/D5w -) 400,000 mcg in 250 mls @ 13.125 mls/hr IVPB TITR [facility]; Protocol Last Titration: 09/06/18 07:00 Dose: 2 mcg/kg/min, 5.25 mls/hr Dextrose/Sodium Chloride (D5-Ns -) 1,000 mls @ 42 mls/hr IV ASDIR [facility] Last Admin: 09/06/18 01:35 Dose: 42 mls/hr Norepinephrine Bitartrate 8, (000 mcg/ Dextrose) 500 mls @ 8.35 mls/hr IV ASDIR [facility]; Protocol Last Titration: 09/06/18 10:29 Dose: 0 mcg/kg/min, 0 mls/hr Vancomycin HCl (Vancomycin (Pre-Docked)) 1,000 mg in 250 mls @ 166.667 mls/hr IVPB Q12H [facility]; Protocol Last Admin: 09/06/18 11:24 Dose: 166.667 mls/hr Piperacillin Sod/Tazobactam (Sod 3.375 gm/ Dextrose) 50 mls @ 200 mls/hr IVPB Q8H-IV [facility]; Protocol Insulin Aspart (Novolog Vial Sliding Scale -) 1 vial SQ Q4HPO [facility]; Protocol Last Admin: 09/06/18 11:45 Dose: 3 units Mupirocin (Bactroban Ointment (For Decolonization) -) 1 applic NS BID [facility] Stop: 09/10/18 00:44 Last Admin: 09/06/18 09:41 Dose: 1 applic Mycophenolate Sodium (Mycophenolic Acid) 360 mg PO BID [facility] Last Admin: 09/06/18 09:42 Dose: 360 mg Ranitidine HCl (Zantac Oral Solution -) 150 mg GT BID [facility] Last Admin: 09/06/18 09:43 Dose: 150 mg Tacrolimus (Prograf) 1 mg PO BID [facility] Last Admin: 09/06/18 09:49 Dose: 1 mg ASSESSMENT AND PLAN: Acute Hypoxic Respiratory failure MRSA Bacteremia Finger Abscess r/o Pneumonia Septic Shock Lactic Acidosis Acute Kidney Injury s/p Renal Transplant on immunosuppressants Hypoglycemia LV Diastolic Dysfunction HTN Hyperlipidemia h/o DVT - continue antibiotics - f/u cultures - IVF - taper pressors to maintain MAP >65 - d/c femoral line when off dopamine gtt - taper FiO2 to keep SpO2 >90% - monitor urine output, creatinine - continue empiric stress dose steroids as pt on chronic prednisone - check prograf level - continue anticoagulation - aspiration precautions - DVT/GI prophylaxis - continue ICU monitoring critical care time spent in reviewing chart, evaluating patient and formulating plan 35min
--- NOTE | 2018-09-06 13:16 | PN ---
Progress Note, Physician History of Present Illness: Pt seen and examined at bedside. He self extubated. He is awake. Mental status is at his baseline. - Current Medication List Current Medications: Active Medications Acetaminophen (Tylenol -) 650 mg PO Q4H PRN PRN Reason: FEVER Acetaminophen (Ofirmev Injection -) 1,000 mg IVPB Q6H PRN PRN Reason: FEVER Last Admin: 09/05/18 11:13 Dose: 1,000 mg Albuterol/Ipratropium (Duoneb -) 1 amp NEB RQID [facility] Last Admin: 09/06/18 11:48 Dose: 1 amp Apixaban (Eliquis -) 5 mg PO BID [facility] Last Admin: 09/06/18 09:43 Dose: 5 mg Aspirin (Asa -) 81 mg PO HS [facility] Last Admin: 09/05/18 23:05 Dose: Not Given Atorvastatin Calcium (Lipitor -) 80 mg PO HS [facility] Last Admin: 09/05/18 22:00 Dose: Not Given Chlorhexidine Gluconate (Hibiclens For Decolonization -) 1 applic TP HS [facility] Last Admin: 09/05/18 21:50 Dose: 1 applic Duloxetine HCl (Cymbalta -) 20 mg PO BID [facility] Last Admin: 09/06/18 09:49 Dose: 20 mg Hydrocortisone Sodium Succinate (Solu-Cortef -) 100 mg IVPB Q8H [facility] Last Admin: 09/06/18 11:24 Dose: 100 mg Dopamine HCl/Dextrose (Dopamine 400 Mg/D5w -) 400,000 mcg in 250 mls @ 13.125 mls/hr IVPB TITR [facility]; Protocol Last Titration: 09/06/18 07:00 Dose: 2 mcg/kg/min, 5.25 mls/hr Dextrose/Sodium Chloride (D5-Ns -) 1,000 mls @ 42 mls/hr IV ASDIR [facility] Last Admin: 09/06/18 01:35 Dose: 42 mls/hr Norepinephrine Bitartrate 8, (000 mcg/ Dextrose) 500 mls @ 8.35 mls/hr IV ASDIR [facility]; Protocol Last Titration: 09/06/18 10:29 Dose: 0 mcg/kg/min, 0 mls/hr Vancomycin HCl (Vancomycin (Pre-Docked)) 1,000 mg in 250 mls @ 166.667 mls/hr IVPB Q12H [facility]; Protocol Last Admin: 09/06/18 11:24 Dose: 166.667 mls/hr Piperacillin Sod/Tazobactam (Sod 3.375 gm/ Dextrose) 50 mls @ 200 mls/hr IVPB Q8H-IV [facility]; Protocol Insulin Aspart (Novolog Vial Sliding Scale -) 1 vial SQ Q4HPO [facility]; Protocol Last Admin: 09/06/18 11:45 Dose: 3 units Mupirocin (Bactroban Ointment (For Decolonization) -) 1 applic NS BID [facility] Stop: 09/10/18 00:44 Last Admin: 09/06/18 09:41 Dose: 1 applic Mycophenolate Sodium (Mycophenolic Acid) 360 mg PO BID [facility] Last Admin: 09/06/18 09:42 Dose: 360 mg Ranitidine HCl (Zantac Oral Solution -) 150 mg GT BID [facility] Last Admin: 09/06/18 09:43 Dose: 150 mg Tacrolimus (Prograf) 1 mg PO BID [facility] Last Admin: 09/06/18 09:49 Dose: 1 mg - Objective Vital Signs: Vital Signs Temperature 98.8 F 09/06/18 10:00 Pulse Rate 68 09/06/18 12:00 Respiratory Rate 16 09/06/18 12:00 Blood Pressure 123/57 L 09/06/18 12:00 O2 Sat by Pulse Oximetry (%) 100 09/06/18 09:00 Constitutional: Yes: Calm Eyes: Yes: Conjunctiva Clear Cardiovascular: Yes: S1, S2 Respiratory: Yes: On Venti-Mask, Rhonchi Gastrointestinal: Yes: Soft Genitourinary: Yes: Rodriguez Present, Other (graft is soft and non tender) Musculoskeletal: Yes: WNL Edema: Yes Edema: LLE: Trace, RLE: Trace Neurological: Yes: Confusion, Other (orietned to place) Labs: CBC, BMP 09/06/18 05:30 09/06/18 05:30 INR, PTT INR 1.01 (0.83-1.09) 09/04/18 16:15 Problem List - Problems (1) Change in mental status Code(s): R41.82 - ALTERED MENTAL STATUS, UNSPECIFIED Qualifiers: Altered mental status type: delirium Qualified Code(s): R41.0 - Disorientation, unspecified (2) Hypoglycemia Code(s): E16.2 - HYPOGLYCEMIA, UNSPECIFIED (3) Kidney transplant recipient Code(s): Z94.0 - KIDNEY TRANSPLANT STATUS Assessment/Plan Current Medications Generic Name Dose Route Start Last Admin Trade Name Freq PRN Reason Stop Dose Admin Acetaminophen 650 mg 09/04/18 20:56 Tylenol - PO Q4H PRN FEVER Acetaminophen 1,000 mg 09/05/18 08:06 09/05/18 11:13 Ofirmev Injection - IVPB 1,000 mg Q6H PRN Administration FEVER Albuterol/Ipratropium 1 amp 09/05/18 08:00 09/06/18 11:48 Duoneb - NEB 1 amp RQID [facility] Administration Apixaban 5 mg 09/04/18 22:00 09/06/18 09:43 Eliquis - PO 5 mg BID [facility] Administration Aspirin 81 mg 09/04/18 22:00 09/05/18 23:05 Asa - PO Not Given HS [facility] Atorvastatin Calcium 80 mg 09/04/18 22:00 09/05/18 22:00 Lipitor - PO Not Given HS [facility] Chlorhexidine Gluconate 1 applic 09/05/18 00:45 09/05/18 21:50 Hibiclens For Decolonization - TP 1 applic HS [facility] Administration Duloxetine HCl 20 mg 09/04/18 22:00 09/06/18 09:49 Cymbalta - PO 20 mg BID [facility] Administration Hydrocortisone Sodium Succinate 100 mg 09/05/18 12:00 09/06/18 11:24 Solu-Cortef - IVPB 100 mg Q8H [facility] Administration Dopamine HCl/Dextrose 400,000 mcg in 250 mls @ 13.125 mls/hr 09/04/18 22:30 09/06/18 07:00 Dopamine 400 Mg/D5w - IVPB 2 mcg/kg/min TITR [facility] 5.25 mls/hr Titration Protocol 5 MCG/KG/MIN Dextrose/Sodium Chloride 1,000 mls @ 42 mls/hr 09/05/18 01:00 09/06/18 01:35 D5-Ns - IV 42 mls/hr ASDIR [facility] Administration Norepinephrine Bitartrate 8, 500 mls @ 8.35 mls/hr 09/05/18 08:00 09/06/18 10 :29 000 mcg/ Dextrose IV 0 mcg/kg/min ASDIR [facility] 0 mls/hr Titration Protocol 0.03 MCG/KG/MIN Vancomycin HCl 1,000 mg in 250 mls @ 166.667 mls/hr 09/05/18 22:00 09/06/18 11:24 Vancomycin (Pre-Docked) IVPB 166.667 mls/hr Q12H [facility] Administration Protocol Piperacillin Sod/Tazobactam 50 mls @ 200 mls/hr 09/06/18 11:28 Sod 3.375 gm/ Dextrose IVPB Q8H-IV [facility] Protocol Insulin Aspart 1 vial 09/06/18 02:00 09/06/18 11:45 Novolog Vial Sliding Scale - SQ 3 units Q4HPO [facility] Administration Protocol Mupirocin 1 applic 09/05/18 00:45 09/06/18 09:41 Bactroban Ointment (For Decolonization) - NS 09/10/18 00:44 1 applic BID [facility] Administration Mycophenolate Sodium 360 mg 09/04/18 22:00 09/06/18 09:42 Mycophenolic Acid PO 360 mg BID [facility] Administration Ranitidine HCl 150 mg 09/05/18 12:15 09/06/18 09:43 Zantac Oral Solution - GT 150 mg BID [facility] Administration Tacrolimus 1 mg 09/04/18 22:00 09/06/18 09:49 Prograf PO 1 mg BID [facility] Administration Impression 1. CKD 2. kidney transplant 3. DM with labile blood pressure 4. hx of syncope 5. HTN 6. hyperlipidemia 7. CHF 8. acute resp failure s/p intubation 9. Hx DVT - pt has IVC filter Plan - cont to monitor renal function - can hold off fluids as he sounds congested - swallow eval - renal ultrasound reviewed - bp is improving - d/f rodriguez - follow up echo - follow prograf level - cont ICU care - monitor pulse ox - monitor input and output Dr Perez
--- NOTE | 2018-09-06 13:28 | ECHO ---
Version: 1 Name: SOHA BERNAL Exam: Adult Echocardiogram Study Date: 09/06/2018, 10:32 AM Age: 78 Years MMode/2D Measurements & Calculations IVSd: 1.08 cm LVIDs: 3.4 cm LVIDd: 5.3 cm LVPWd: 1.01 cm LVOT diam: 1.95 cm Ao root diam: 2.9 cm LA dimension: 4.2 cm Doppler Measurements & Calculations MV E max rudi: 93.2 cm/sec Med E/e': 34.8 MV A max rudi: 86.4 cm/sec Med Peak E' Rudi: 2.7 cm/sec MV E/A: 1.08 Lat E/e': 14.6 Lat Peak E' Rudi: 6.4 cm/sec MR max P.2 mmHg Ao max P.1 mmHg LV V1 mean: 55.2 cm/sec Ao V2 max: 223.8 cm/sec LV V1 mean P.37 mmHg TR max rudi: 225.3 cm/sec TR max P.3 mmHg Procedure A two-dimensional transthoracic echocardiogram with color flow and Doppler was performed. Left Ventricle There is moderate concentric left ventricular hypertrophy. The left ventricular ejection fraction is normal. E/A reversal consistent with but not diagnostic of poor LV compliance. The left ventricular wall mot ion is normal. Right Ventricle The right ventricle is normal in size and function. Atria The left atrium is mildly dilated. The right atrium is mildly dilated. Mitral Valve The mitral valve is not well visualized. There is mild mitral valve thickening. There is no mitral v alve stenosis. There is moderate to severe mitral regurgitation. Tricuspid Valve There is mild tricuspid valve thickening. The tricuspid valve is not well visualized. There is no tr icuspid stenosis. There is mild to moderate tricuspid regurgitation. Right ventricular systolic pressure is normal. Aortic Valve The aortic valve is not well visualized. There is mild aortic valve thickening. There is mild aortic sclerosis.;. Pulmonic Valve The pulmonic valve is not well visualized. There is no pulmonic valvular stenosis. There is no pulmo levi valvular regurgitation. Summary Statements Clinical correlation is recommended. There is moderate concentric left ventricular hypertrophy. The left ventricular ejection fraction is normal. The left ventricular wall motion is normal. The left atrium is mildly dilated. The right atrium is mildly dilated. There is mild aortic sclerosis.; There is mild aortic valve thickening. There is mild to moderate tricuspid regurgitation. Right ventricular systolic pressure is normal. There is moderate to severe mitral regurgitation. The mitral valve is not well visualized. There is mild mitral valve thickening. E/A reversal consistent with but not diagnostic of poor LV compliance The tricuspid valve is not well visualized. Clinical correlation is recommended. MD Lazaro Khanna 09/06/2018, 1:28 PM Ordering Physician: Judy Ziegler Referring Physician: MARINA CESAR Performed By: Carley Wyman
[2018-09-06] MEDS ORDERED: DEXTROSE 5%-NORMAL SALINE 1,000 ML IV SCH ×2 (14:58→22:45)
--- NOTE | 2018-09-06 16:12 | PN ---
Physical Exam: SUBJECTIVE: - Self-extubated yesterday evening. - Echo completed today, no acute abnormalities - Off pressors. Transitioned to supplemental O2 by NC - Able to take PO medications today OBJECTIVE: Vital Signs Period Temp Pulse Resp BP Sys/Mendoza Pulse Ox Last 24 Hr 98.4 F-99.4 F 63-84 12-20 111-154/34-86 97-100 General: Awake, alert. HEENT: PERRL, EOMI, MMM Cards: RRR. Mid sternal scar Pulm: Comfortable with NC. Crackles bilaterally Abd: Soft, nontender, nondistended : Monahan in place, clear yellow urine draining Ext: LLE with 2+ pitting edema to knee, including foot. L hand with dry, scabbed wound to lateral middle finger; no surrounding erythema, edema, drainage Neuro: Awake, appears confused. Laboratory Results - last 24 hr 09/05/18 09/05/18 09/06/18 17:02 21:24 01:45 WBC RBC Hgb Hct MCV MCH MCHC RDW Plt Count MPV Absolute Neuts (auto) Neutrophils % Lymphocytes % Monocytes % Eosinophils % Basophils % Nucleated RBC % Puncture Site ABG pH ABG pCO2 at Pt Temp ABG pO2 at Pt Temp ABG HCO3 ABG O2 Sat (Measured) ABG O2 Content ABG Base Excess Patrice Test Oxygen Flow Rate Mechanical Rate Sodium Potassium Chloride Carbon Dioxide Anion Gap BUN Creatinine Creat Clearance w eGFR POC Glucometer 140.13357 254.93794 344.48234 Random Glucose Calcium Phosphorus Magnesium Total Bilirubin AST ALT Alkaline Phosphatase Total Protein Albumin Vancomycin Pre-Dose 09/06/18 09/06/18 09/06/18 05:30 05:30 06:26 WBC 16.2 H RBC 4.08 Hgb 11.6 L Hct 36.4 MCV 89.1 MCH 28.5 MCHC 32.0 RDW 16.9 H Plt Count 188 MPV 8.5 Absolute Neuts (auto) 13.9 H Neutrophils % 85.9 H Lymphocytes % 8.1 D Monocytes % 5.5 Eosinophils % 0.0 D Basophils % 0.5 Nucleated RBC % 0 Puncture Site ABG pH ABG pCO2 at Pt Temp ABG pO2 at Pt Temp ABG HCO3 ABG O2 Sat (Measured) ABG O2 Content ABG Base Excess Patrice Test Oxygen Flow Rate Mechanical Rate Sodium 135 L Potassium 4.3 Chloride 107 Carbon Dioxide 21 Anion Gap 7 L BUN 34 H Creatinine 1.4 H Creat Clearance w eGFR 49.27 POC Glucometer [phone] Random Glucose 196 H Calcium 7.8 L Phosphorus 4.0 Magnesium 2.2 Total Bilirubin 0.5 AST 28 ALT 32 Alkaline Phosphatase 55 Total Protein 5.0 L Albumin 2.6 L Vancomycin Pre-Dose 09/06/18 09/06/18 09/06/18 09:00 10:00 11:36 WBC RBC Hgb Hct MCV MCH MCHC RDW Plt Count MPV Absolute Neuts (auto) Neutrophils % Lymphocytes % Monocytes % Eosinophils % Basophils % Nucleated RBC % Puncture Site Left radial ABG pH 7.39 ABG pCO2 at Pt Temp 34.1 L ABG pO2 at Pt Temp 115.0 H D ABG HCO3 20.4 L ABG O2 Sat (Measured) 97.9 ABG O2 Content 15.0 ABG Base Excess -3.4 L Patrice Test Positive Oxygen Flow Rate 40 Mechanical Rate Vent Sodium Potassium Chloride Carbon Dioxide Anion Gap BUN Creatinine Creat Clearance w eGFR POC Glucometer [phone] Random Glucose Calcium Phosphorus Magnesium Total Bilirubin AST ALT Alkaline Phosphatase Total Protein Albumin Vancomycin Pre-Dose 16.1 L 09/06/18 15:13 WBC RBC Hgb Hct MCV MCH MCHC RDW Plt Count MPV Absolute Neuts (auto) Neutrophils % Lymphocytes % Monocytes % Eosinophils % Basophils % Nucleated RBC % Puncture Site ABG pH ABG pCO2 at Pt Temp ABG pO2 at Pt Temp ABG HCO3 ABG O2 Sat (Measured) ABG O2 Content ABG Base Excess Patrice Test Oxygen Flow Rate Mechanical Rate Sodium Potassium Chloride Carbon Dioxide Anion Gap BUN Creatinine Creat Clearance w eGFR POC Glucometer [phone] Random Glucose Calcium Phosphorus Magnesium Total Bilirubin AST ALT Alkaline Phosphatase Total Protein Albumin Vancomycin Pre-Dose Active Medications Generic Name Dose Route Start Last Admin Trade Name Freq PRN Reason Stop Dose Admin Acetaminophen 650 mg 09/04/18 20:56 Tylenol - PO Q4H PRN FEVER Acetaminophen 1,000 mg 09/05/18 08:06 09/05/18 11:13 Ofirmev Injection - IVPB 1,000 mg Q6H PRN Administration FEVER Albuterol/Ipratropium 1 amp 09/05/18 08:00 09/06/18 11:48 Duoneb - NEB 1 amp RQID [facility] Administration Apixaban 5 mg 09/04/18 22:00 09/06/18 09:43 Eliquis - PO 5 mg BID [facility] Administration Aspirin 81 mg 09/04/18 22:00 09/05/18 23:05 Asa - PO Not Given HS [facility] Atorvastatin Calcium 80 mg 09/04/18 22:00 09/05/18 22:00 Lipitor - PO Not Given HS [facility] Chlorhexidine Gluconate 1 applic 09/05/18 00:45 09/05/18 21:50 Hibiclens For Decolonization - TP 1 applic HS [facility] Administration Duloxetine HCl 20 mg 09/04/18 22:00 09/06/18 09:49 Cymbalta - PO 20 mg BID [facility] Administration Hydrocortisone Sodium Succinate 100 mg 09/05/18 12:00 09/06/18 11:24 Solu-Cortef - IVPB 100 mg Q8H [facility] Administration Dopamine HCl/Dextrose 400,000 mcg in 250 mls @ 13.125 mls/hr 09/04/18 22:30 09/06/18 15:15 Dopamine 400 Mg/D5w - IVPB 0 mcg/kg/min TITR [facility] 0 mls/hr Titration Protocol 5 MCG/KG/MIN Norepinephrine Bitartrate 8, 500 mls @ 8.35 mls/hr 09/05/18 08:00 09/06/18 10 :29 000 mcg/ Dextrose IV 0 mcg/kg/min ASDIR [facility] 0 mls/hr Titration Protocol 0.03 MCG/KG/MIN Vancomycin HCl 1,000 mg in 250 mls @ 166.667 mls/hr 09/05/18 22:00 09/06/18 11:24 Vancomycin (Pre-Docked) IVPB 166.667 mls/hr Q12H [facility] Administration Protocol Piperacillin Sod/Tazobactam 50 mls @ 200 mls/hr 09/06/18 11:28 Sod 3.375 gm/ Dextrose IVPB Q8H-IV [facility] Protocol Insulin Aspart 1 vial 09/06/18 02:00 09/06/18 15:14 Novolog Vial Sliding Scale - SQ Not Given Q4HPO [facility] Protocol Mupirocin 1 applic 09/05/18 00:45 09/06/18 09:41 Bactroban Ointment (For Decolonization) - NS 09/10/18 00:44 1 applic BID [facility] Administration Mycophenolate Sodium 360 mg 09/04/18 22:00 09/06/18 09:42 Mycophenolic Acid PO 360 mg BID [facility] Administration Ranitidine HCl 150 mg 09/05/18 12:15 09/06/18 09:43 Zantac Oral Solution - GT 150 mg BID [facility] Administration Tacrolimus 1 mg 09/04/18 22:00 09/06/18 09:49 Prograf PO 1 mg BID [facility] Administration ASSESSMENT/PLAN: Demond Abel is a 78yo man with a PMH of IDDM, HTN, CAD s/p MD s/p CABG, CHF, previously ESRD on HD now s/p kidney transplant (2008) on immunosuppresion, previous DVT on apixaban, multiple previous hospitalizations and intubations for hypoglycemic episodes. He presented to the ED on 09/04 with AMS/lethargy, hypoglycemia, and respiratory distress as well as hypotension to the 70's. He was admitted with a working diagnosis of septic shock secondary to presumed pneumonia. Neuro: - Sedation off after self-extubation. - Neurology following (Dr George) - recommends checking B12, TSH, RPR - Per daughter, has been increasingly "confused" over the past few years. - Mittens in place to avoid removing tubes/lines CV: - Hypotension improved - now off pressors - IVF stopped per nephrology recommendation. - Echo with normal EF - Significant cardiac history. Continue home ASA, atorvastatin Pulm: - Self-extubated - Transitioned from venturi mask to NC this afternoon, satting well - Duonebs Q6hr Heme: - Continue home apixaban - Monitor daily CBC GI: - Unable to participate with bedside swallow by ICU team - Official speech/swallow eval pending. To remain NPO except for meds until evaluation is completed Renal: - h/o kidney transplant. BUN/Cr at mildly elevated - Monahan in place. - Monitor I/O - UA negative, culture pending - Followed by Dr Perez - Recommends holding IVF. Tacrolimus level pending. Transplant US completed, no blood flow compromise or obvious abnormalities ID: - Working diagnosis septic shock, presumed pneumonia with WBC to 13, fever to 101.8 on admission - WBC increased to 16 today - Blood cultures from 09/04 with presumptive MRSA. New cultures sent today. - Suspected source of infection is the left middle finger wound, but will pull central line today if Mr Abel remains off pressors reduce unnecessary lines - Empiric vanc/zosyn - Dr Ziegler following Endo: - Presented with hypoglycemia at home to 27. Per chart review, multiple hypoglycemic episodes previously - Has IDDM. Monitor BG closely - Per endo, will increased BMG and ISS to Q4hrs - On prednisone at home, 5mg daily. Stress dose steroids started - hydrocortisone 100mg Q8hr - Endo consult placed - Rec Q4hr BGM and ISS Psych: - Continue home duloxetine Musc: - Turn Q2hr - Mittens to prevent pulling lines/tubes PPx: - Apixaban - Pantoprazole daily FEN: - NPO pending swallow eval - SLIV per Dr Perez - Ruiz humphreys PRN Dispo: - Monitor in ICU Discussed with ICU team. Gwendolyn Kimbrough PGY1 Visit type - Emergency Visit Emergency Visit: No - New Patient This patient is new to me today: No - Critical Care Critical Care patient: Yes Total Critical Care Time (in minutes): 45 Critical Care Statement: The care of this patient involved high complexity decision making to prevent further life threatening deterioration of the patient 's condition and/or to evaluate & treat vital organ system(s) failure or risk of failure.
[2018-09-06] MEDS ORDERED: PIPERACILLIN/TAZOBACTAM 3.375 GM VIAL IVPB ONE (17:20)
[2018-09-06] MEDS ORDERED: DEXTROSE 5%-WATER - 50 ML IVPB ONE (17:20)
[2018-09-06] MEDS: PIPERACILLIN/TAZOB 3.375 GM 3.375 GM in DEXTROSE 5%-WATER - 50 ML IVPB SCH (17:39)
[2018-09-06] MEDS: ASPIRIN 81 MG CHEWABLE TABLETS PO SCH (21:45)
[2018-09-06] MEDS: ATORVASTATIN CA 40 MG TABLET (FP) PO SCH (21:47)
[2018-09-06] MEDS: CHLORHEXIDINE GLUCONATE 4% CLEANSER FOR DECOLONIZATION TP SCH (21:47)
[2018-09-06] MEDS ORDERED: INSULIN SLIDING SCALE (NOVOLOG) 1 VIAL SQ SCH (22:57)
--- NOTE | 2018-09-06 23:06 | PN ---
Progress Note, Physician Chief Complaint: sp; extubation,awake restless History of Present Illness: dm,type 2,ashd,sp renal transplant,admitted hypoglyclemia,labile bs latest bs 50mg/dl - Current Medication List Current Medications: Active Medications Acetaminophen (Tylenol -) 650 mg PO Q4H PRN PRN Reason: FEVER Acetaminophen (Ofirmev Injection -) 1,000 mg IVPB Q6H PRN PRN Reason: FEVER Last Admin: 09/05/18 11:13 Dose: 1,000 mg Albuterol/Ipratropium (Duoneb -) 1 amp NEB RQID [facility] Last Admin: 09/06/18 21:30 Dose: 1 amp Apixaban (Eliquis -) 5 mg PO BID [facility] Last Admin: 09/06/18 21:46 Dose: 5 mg Aspirin (Asa -) 81 mg PO HS [facility] Last Admin: 09/06/18 21:45 Dose: 81 mg Atorvastatin Calcium (Lipitor -) 80 mg PO HS [facility] Last Admin: 09/06/18 21:47 Dose: 80 mg Chlorhexidine Gluconate (Hibiclens For Decolonization -) 1 applic TP HS [facility] Last Admin: 09/06/18 21:47 Dose: 1 applic Duloxetine HCl (Cymbalta -) 20 mg PO BID [facility] Last Admin: 09/06/18 21:46 Dose: 20 mg Hydrocortisone Sodium Succinate (Solu-Cortef -) 100 mg IVPB Q8H [facility] Last Admin: 09/06/18 20:22 Dose: 100 mg Dopamine HCl/Dextrose (Dopamine 400 Mg/D5w -) 400,000 mcg in 250 mls @ 13.125 mls/hr IVPB TITR [facility]; Protocol Last Titration: 09/06/18 15:15 Dose: 0 mcg/kg/min, 0 mls/hr Norepinephrine Bitartrate 8, (000 mcg/ Dextrose) 500 mls @ 8.35 mls/hr IV ASDIR [facility]; Protocol Last Titration: 09/06/18 10:29 Dose: 0 mcg/kg/min, 0 mls/hr Vancomycin HCl (Vancomycin (Pre-Docked)) 1,000 mg in 250 mls @ 166.667 mls/hr IVPB Q12H [facility]; Protocol Last Admin: 09/06/18 21:46 Dose: 166.667 mls/hr Piperacillin Sod/Tazobactam (Sod 3.375 gm/ Dextrose) 50 mls @ 200 mls/hr IVPB Q8H-IV [facility]; Protocol Last Admin: 09/06/18 17:39 Dose: 200 mls/hr Dextrose/Sodium Chloride (D5-Ns -) 1,000 mls @ 75 mls/hr IV [facility]IR [facility] Stop: 09/07/18 01:44 Last Admin: 09/06/18 22:55 Dose: 75 mls/hr Insulin Aspart (Novolog Vial Sliding Scale -) 1 vial SQ ACHS [facility]; Protocol Mupirocin (Bactroban Ointment (For Decolonization) -) 1 applic NS BID [facility] Stop: 09/10/18 00:44 Last Admin: 09/06/18 21:48 Dose: 1 applic Mycophenolate Sodium (Mycophenolic Acid) 360 mg PO BID [facility] Last Admin: 09/06/18 09:42 Dose: 360 mg Ranitidine HCl (Zantac Oral Solution -) 150 mg GT BID [facility] Last Admin: 09/06/18 21:46 Dose: 150 mg Tacrolimus (Prograf) 1 mg PO BID [facility] Last Admin: 09/06/18 09:49 Dose: 1 mg - Objective Vital Signs: Vital Signs Temperature 98.5 F 09/06/18 22:12 Pulse Rate 66 09/06/18 22:12 Respiratory Rate 17 09/06/18 22:12 Blood Pressure 119/37 L 09/06/18 22:12 O2 Sat by Pulse Oximetry (%) 100 09/06/18 09:00 Constitutional: Yes: Well Nourished Eyes: Yes: EOM Intact HENT: Yes: Normocephalic Neck: Yes: Trachea Midline Cardiovascular: Yes: Tachycardia, Murmur Respiratory: Yes: Rhonchi, SOB, Tachypnea Gastrointestinal: Yes: Normal Bowel Sounds ...Rectal Exam: Yes: Deferred Musculoskeletal: Yes: Back Pain, Joint Swelling, Muscle Pain, Muscle Weakness Extremities: Yes: WNL Edema: Yes Edema: LLE: 1+, RLE: 1+ Neurological: Yes: Alert, Confusion, Weakness Labs: CBC, BMP 09/06/18 05:30 09/06/18 05:30 INR, PTT INR 1.01 (0.83-1.09) 09/04/18 16:15 Problem List - Problems (1) Acute metabolic encephalopathy Code(s): G93.41 - METABOLIC ENCEPHALOPATHY (2) Bacteremia Code(s): R78.81 - BACTEREMIA (3) Change in mental status Code(s): R41.82 - ALTERED MENTAL STATUS, UNSPECIFIED Qualifiers: Altered mental status type: delirium Qualified Code(s): R41.0 - Disorientation, unspecified (4) Hypoglycemia Code(s): E16.2 - HYPOGLYCEMIA, UNSPECIFIED (5) Kidney transplant recipient Code(s): Z94.0 - KIDNEY TRANSPLANT STATUS (6) CHUCK (acute kidney injury) Code(s): N17.9 - ACUTE KIDNEY FAILURE, UNSPECIFIED (7) Acute respiratory failure Code(s): J96.00 - ACUTE RESPIRATORY FAILURE, UNSP W HYPOXIA OR HYPERCAPNIA (8) Acute type 2 diabetes mellitus with manifestations Code(s): E11.8 - TYPE 2 DIABETES MELLITUS WITH UNSPECIFIED COMPLICATIONS Assessment/Plan Current Active Problems Acute metabolic encephalopathy (Acute) Adrenal insufficiency (Acute) Bacteremia (Acute) Change in mental status (Acute) Hypoglycemia (Acute) Kidney transplant recipient (Chronic) diabetes mellitus type 2 uncontrolled Abnormal Lab Results 09/06/18 09/06/18 09/06/18 05:30 05:30 09:00 WBC 16.2 H Hgb 11.6 L RDW 16.9 H Absolute Neuts (auto) 13.9 H Neutrophils % 85.9 H ABG pCO2 at Pt Temp ABG pO2 at Pt Temp ABG HCO3 ABG Base Excess Sodium 135 L Anion Gap 7 L BUN 34 H Creatinine 1.4 H Random Glucose 196 H Calcium 7.8 L Total Protein 5.0 L Albumin 2.6 L Vancomycin Pre-Dose 16.1 L 09/06/18 10:00 WBC Hgb RDW Absolute Neuts (auto) Neutrophils % ABG pCO2 at Pt Temp 34.1 L ABG pO2 at Pt Temp 115.0 H D ABG HCO3 20.4 L ABG Base Excess -3.4 L Sodium Anion Gap BUN Creatinine Random Glucose Calcium Total Protein Albumin Vancomycin Pre-Dose Laboratory Results - last 24 hr 09/06/18 09/06/18 09/06/18 01:45 05:30 05:30 WBC 16.2 H RBC 4.08 Hgb 11.6 L Hct 36.4 MCV 89.1 MCH 28.5 MCHC 32.0 RDW 16.9 H Plt Count 188 MPV 8.5 Absolute Neuts (auto) 13.9 H Neutrophils % 85.9 H Lymphocytes % 8.1 D Monocytes % 5.5 Eosinophils % 0.0 D Basophils % 0.5 Nucleated RBC % 0 Puncture Site ABG pH ABG pCO2 at Pt Temp ABG pO2 at Pt Temp ABG HCO3 ABG O2 Sat (Measured) ABG O2 Content ABG Base Excess Patrice Test Oxygen Flow Rate Mechanical Rate Sodium 135 L Potassium 4.3 Chloride 107 Carbon Dioxide 21 Anion Gap 7 L BUN 34 H Creatinine 1.4 H Creat Clearance w eGFR 49.27 POC Glucometer [phone] Random Glucose 196 H Calcium 7.8 L Phosphorus 4.0 Magnesium 2.2 Total Bilirubin 0.5 AST 28 ALT 32 Alkaline Phosphatase 55 Total Protein 5.0 L Albumin 2.6 L Vancomycin Pre-Dose 09/06/18 09/06/18 09/06/18 06:26 09:00 10:00 WBC RBC Hgb Hct MCV MCH MCHC RDW Plt Count MPV Absolute Neuts (auto) Neutrophils % Lymphocytes % Monocytes % Eosinophils % Basophils % Nucleated RBC % Puncture Site Left radial ABG pH 7.39 ABG pCO2 at Pt Temp 34.1 L ABG pO2 at Pt Temp 115.0 H D ABG HCO3 20.4 L ABG O2 Sat (Measured) 97.9 ABG O2 Content 15.0 ABG Base Excess -3.4 L Patrice Test Positive Oxygen Flow Rate 40 Mechanical Rate Vent Sodium Potassium Chloride Carbon Dioxide Anion Gap BUN Creatinine Creat Clearance w eGFR POC Glucometer 215.20476 Random Glucose Calcium Phosphorus Magnesium Total Bilirubin AST ALT Alkaline Phosphatase Total Protein Albumin Vancomycin Pre-Dose 16.1 L 09/06/18 09/06/18 09/06/18 11:36 15:13 22:27 WBC RBC Hgb Hct MCV MCH MCHC RDW Plt Count MPV Absolute Neuts (auto) Neutrophils % Lymphocytes % Monocytes % Eosinophils % Basophils % Nucleated RBC % Puncture Site ABG pH ABG pCO2 at Pt Temp ABG pO2 at Pt Temp ABG HCO3 ABG O2 Sat (Measured) ABG O2 Content ABG Base Excess Patrice Test Oxygen Flow Rate Mechanical Rate Sodium Potassium Chloride Carbon Dioxide Anion Gap BUN Creatinine Creat Clearance w eGFR POC Glucometer 220.51740 193.72244 53.09826 Random Glucose Calcium Phosphorus Magnesium Total Bilirubin AST ALT Alkaline Phosphatase Total Protein Albumin Vancomycin Pre-Dose plan: bgm q4h then qid when diet improves will resume levemir 10 units am
[2018-09-07] MEDS ORDERED: PIPERACILLIN/TAZOBACTAM 3.375 GM VIAL IVPB ONE ×2 (01:24→09:40)
[2018-09-07] MEDS ORDERED: DEXTROSE 5%-WATER - 50 ML IVPB ONE ×2 (01:24→09:40)
[2018-09-07] MEDS: PIPERACILLIN/TAZOB 3.375 GM 3.375 GM in DEXTROSE 5%-WATER - 50 ML IVPB SCH ×2 (01:45→09:48)
[2018-09-07] MEDS: HYDROCORTISONE SOD SUCCINATE 100 MG/2 ML VIAL IVPB SCH ×3 (04:45→20:17)
[2018-09-07] MEDS: INSULIN SLIDING SCALE (NOVOLOG) 1 VIAL SQ SCH ×5 (06:58→22:33)
[2018-09-07] MEDS: NOREPINEPHRINE BITARTRATE 8,000 MCG in DEXTROSE 5%-WATER - 492 ML IV SCH (07:00)
[2018-09-07 07:07] LABS: BASO % 0.1 % (0-2.0); EOS % 0.1 % (0-4.5); HEMATOCRIT 32.9 % (35.4-49); HEMOGLOBIN 10.5 GM/dL (11.7-16.9); LYMPH % 10.4 % (8-40); MCH 28.2 pg (25.7-33.7); MEAN PLT VOLUME 8.3 fl (7.5-11.1); MONO % 4.8 % (3.8-10.2); NEUT % 84.6 % (42.8-82.8); PLATELET COUNT 137 K/MM3 (134-434); RBC 3.74 M/mm3 (4.00-5.60); RDW 16.7 % (11.9-15.9); WHITE BLOOD COUNT 8.4 K/mm3 (4.0-10.0)
[2018-09-07 07:30] LABS: ALBUMIN 2.5 g/dl (3.4-5.0); ALK PHOS 45 U/L (45-117); ANION GAP 8 MMOL/L (8-16); BILIRUBIN,TOTAL 0.6 mg/dL (0.2-1); BLOOD UREA NITROGEN 32 mg/dL (7-18); CALCIUM 8.2 mg/dL (8.5-10.1); CHLORIDE 109 mmol/L (98-107); CO2 21 mmol/L (21-32); CREATININE 1.3 mg/dL (0.55-1.3); GLUCOSE,RANDOM 166 mg/dL (74-106); PHOSPHOROUS 4.6 mg/dL (2.5-4.9); POTASSIUM 4.2 mmol/L (3.5-5.1); SGOT/AST 28 U/L (15-37); SGPT/ALT 31 U/L (13-61); SODIUM 139 mmol/L (136-145); TOT PROT 4.8 g/dl (6.4-8.2)
[2018-09-07] MEDS: ALBUTEROL SO4 2.5/IPRATROPIUM 0.5 INH SOL 3 ML VIAL.NEB. NEB SCH ×4 (08:33→20:50)
[2018-09-07] MEDS ORDERED: PT OWN MED DRAWER 7, Y5N ONE (09:40)
[2018-09-07] MEDS: MUPIROCIN 2% TOPICAL OINTMENT FOR DECOLONIZATION NS SCH ×2 (09:45→22:23)
[2018-09-07] MEDS: DULoxetine HCL 20 MG CAPSULE.DR (FP) PO SCH ×2 (09:46→22:22)
[2018-09-07] MEDS: MYCOPHENOLATE SODIUM 360 MG TABLET.DR PO SCH ×2 (09:46→22:23)
[2018-09-07] MEDS: APIXABAN 5 MG TABLET PO SCH ×2 (09:46→22:22)
[2018-09-07] MEDS: TACROLIMUS ANHYDROUS 1 MG CAPSULE PO SCH ×2 (09:46→22:23)
[2018-09-07] MEDS: RANITIDINE HCL 150 MG/10 ML UNIT-DOSE GT SCH ×2 (09:47→22:22)
[2018-09-07] MEDS: VANCOMYCIN 1 GRAM (PRE-DOCKED) 1,000 MG/250 ML BAG IVPB SCH (09:47)
--- NOTE | 2018-09-07 11:01 | PN ---
Progress Note, Physician Chief Complaint: AWAKE ALERT X 2 DENIES CHEST PAIN +SOB EVENTS AND NOTES REVIEWED - Current Medication List Current Medications: Active Medications Acetaminophen (Tylenol -) 650 mg PO Q4H PRN PRN Reason: FEVER Acetaminophen (Ofirmev Injection -) 1,000 mg IVPB Q6H PRN PRN Reason: FEVER Last Admin: 09/05/18 11:13 Dose: 1,000 mg Albuterol/Ipratropium (Duoneb -) 1 amp NEB RQID [facility] Last Admin: 09/07/18 08:33 Dose: 1 amp Apixaban (Eliquis -) 5 mg PO BID [facility] Last Admin: 09/07/18 09:46 Dose: 5 mg Aspirin (Asa -) 81 mg PO HS [facility] Last Admin: 09/06/18 21:45 Dose: 81 mg Atorvastatin Calcium (Lipitor -) 80 mg PO HS [facility] Last Admin: 09/06/18 21:47 Dose: 80 mg Chlorhexidine Gluconate (Hibiclens For Decolonization -) 1 applic TP HS [facility] Last Admin: 09/06/18 21:47 Dose: 1 applic Duloxetine HCl (Cymbalta -) 20 mg PO BID [facility] Last Admin: 09/07/18 09:46 Dose: 20 mg Hydrocortisone Sodium Succinate (Solu-Cortef -) 100 mg IVPB Q8H [facility] Last Admin: 09/07/18 04:45 Dose: 100 mg Dopamine HCl/Dextrose (Dopamine 400 Mg/D5w -) 400,000 mcg in 250 mls @ 13.125 mls/hr IVPB TITR [facility]; Protocol Last Titration: 09/06/18 15:15 Dose: 0 mcg/kg/min, 0 mls/hr Norepinephrine Bitartrate 8, (000 mcg/ Dextrose) 500 mls @ 8.35 mls/hr IV ASDIR [facility]; Protocol Last Titration: 09/06/18 10:29 Dose: 0 mcg/kg/min, 0 mls/hr Vancomycin HCl (Vancomycin (Pre-Docked)) 1,000 mg in 250 mls @ 166.667 mls/hr IVPB Q12H [facility]; Protocol Last Admin: 09/07/18 09:47 Dose: 166.667 mls/hr Piperacillin Sod/Tazobactam (Sod 3.375 gm/ Dextrose) 50 mls @ 200 mls/hr IVPB Q8H-IV [facility]; Protocol Last Admin: 09/07/18 09:48 Dose: 200 mls/hr Insulin Aspart (Novolog Vial Sliding Scale -) 1 vial SQ ACHS [facility]; Protocol Last Admin: 09/07/18 06:58 Dose: Not Given Mupirocin (Bactroban Ointment (For Decolonization) -) 1 applic NS BID [facility] Stop: 09/10/18 00:44 Last Admin: 09/07/18 09:45 Dose: 1 applic Mycophenolate Sodium (Mycophenolic Acid) 360 mg PO BID [facility] Last Admin: 09/07/18 09:46 Dose: 360 mg Ranitidine HCl (Zantac Oral Solution -) 150 mg GT BID [facility] Last Admin: 09/07/18 09:47 Dose: 150 mg Tacrolimus (Prograf) 1 mg PO BID [facility] Last Admin: 09/07/18 09:46 Dose: 1 mg - Objective Vital Signs: Vital Signs Temperature 98.7 F 09/07/18 10:00 Pulse Rate 66 09/07/18 10:00 Respiratory Rate 15 09/07/18 10:00 Blood Pressure 124/49 L 09/07/18 10:00 O2 Sat by Pulse Oximetry (%) 99 09/07/18 09:00 Constitutional: Yes: Mild Distress Eyes: Yes: WNL HENT: Yes: WNL Neck: Yes: WNL Cardiovascular: Yes: WNL Respiratory: Yes: Diminished, On Nasal O2 Gastrointestinal: Yes: WNL, Soft Genitourinary: Yes: WNL Musculoskeletal: Yes: Muscle Weakness Extremities: Yes: Erythema Edema: Yes Peripheral Pulses WNL: Yes Integumentary: Yes: Rash, Skin Tear, Venous Stasis Changes Wound/Incision: Yes: Open to air Neurological: Yes: Confusion ...Motor Strength: LLE, RLE Psychiatric: Yes: WNL Labs: CBC, BMP 09/07/18 05:30 09/07/18 05:30 INR, PTT INR 1.01 (0.83-1.09) 09/04/18 16:15 Problem List - Problems (1) Acute metabolic encephalopathy Code(s): G93.41 - METABOLIC ENCEPHALOPATHY (2) Adrenal insufficiency Code(s): E27.40 - UNSPECIFIED ADRENOCORTICAL INSUFFICIENCY (3) Bacteremia Code(s): R78.81 - BACTEREMIA (4) Change in mental status Code(s): R41.82 - ALTERED MENTAL STATUS, UNSPECIFIED Qualifiers: Altered mental status type: delirium Qualified Code(s): R41.0 - Disorientation, unspecified (5) Hypoglycemia Code(s): E16.2 - HYPOGLYCEMIA, UNSPECIFIED (6) Kidney transplant recipient Code(s): Z94.0 - KIDNEY TRANSPLANT STATUS (7) CHUCK (acute kidney injury) Code(s): N17.9 - ACUTE KIDNEY FAILURE, UNSPECIFIED (8) Acute respiratory failure Code(s): J96.00 - ACUTE RESPIRATORY FAILURE, UNSP W HYPOXIA OR HYPERCAPNIA (9) DM2 (diabetes mellitus, type 2) Code(s): E11.9 - TYPE 2 DIABETES MELLITUS WITHOUT COMPLICATIONS Qualifiers: Diabetes mellitus 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 ON CORTISOL
--- NOTE | 2018-09-07 11:07 | CONSULT ---
Admitting History and Physical - Primary Care Physician PCP: Cisco Palacios - Admission History of Present Illness: Pt with PMH of IDDM, HTN, PAD, CAD s/p GA (s/p CABG), CHF, ESRD- on HD until 2008,Renal Transplant (on immunosuppressants). Pt was found unresponsive when family returned from shopping with severe hypoglycemia. He became agitated and was wheezing and COONEY in ED- intubated to protect airway became hypotensive and required pressors. per ER note- difficult intubation 'was hypothermic requiring bairhugger Self-extubated Last seen by me in May 2018. Placed on puree/nectar thick following self extubation at that time. Repeated silent aspiration on thin liquids on previous MBS, last done March 2018. Soft cohesive moist diet and nectar thick liquids recommended. Pt does not comply with thickened liquids. Pt reported to be coughing on liquids trials. Pt seen bedside in ICU. Verbal, frequently speaking in Chinese. He is fluent in [place] Citizen. Needed to be reoriented. Thought he was home. Vocal quality similar to baseline,. History Source: Patient, Medical Record Limitations to Obtaining History: Clinical Condition - Past Medical History Cardiovascular: Yes: CAD, CHF, Deep Vein Thrombosis, HTN, GA, Other Renal/: Yes: Renal Inusuff, Other (S/P Kidney tranplant 2008) Infectious Disease: Yes: C-Diff, MRSA, Other (resistant E. coli in past, osteomyelitis of his finger) Endocrine: Yes: Diabetes Mellitus - Past Surgical History Past Surgical History: Yes: AV Fistula/Graft (right upper arm, non working), CABG, Kidney Transplant (right 2008) - Smoking History Smoking history: Unknown if ever smoked Have you smoked in the past 12 months: No Aproximately how many cigarettes per day: 0 - Alcohol/Substance Use Hx Alcohol Use: No History of Substance Use: reports: None - Social History ADL: Support Services History of Recent Travel: No History - Admission Reason For Visit: ACUTE RESPIATORY FAILURE - Diagnostics X-ray: Report Reviewed - General Mental Status: Awake and Alert, Able to Follow Commands, Vague, Intermittently Confused Attention: Distractible, Mild Impairment Ability to Follow Directions: Good Head/Neck Control: Good - Hearing Hearing: Normal Hearing Aide: No With Patient: No Speech Evaluation - Communication Primary Language: ROMANSH Secondary Language: AMERICAN (fluent ) Communication: Yes: Simple Responses - Speech Production Able to Make Needs Known: Yes: WNL Intelligibility: Yes: WNL - Speech Characteristics Voice Loudness: Normal Voice Pitch: Yes: Normal Voice Phonatory-based Quality: Yes: Harsh (similar to baseline) Speech Pattern: Normal Speech Clarity: < 100% Articulation: Yes: Precise - Language/Auditory Comprehension Observation: Able to respond to yes/no queries: Yes, Yes/No Confusion: No, Comprehends Conversational Speech: Yes - Language/Verbal Expression Able to Communicate Wants and Needs: Yes: WNL - Swallow Evaluation/Bedside Assessment Current Nutritional Intake: NPO Oral Secretions: Yes: WFL Dentition: Yes: Adequate Facial Symmetry at Rest: Symmetrical Facial Symmetry on Retraction: Symmetrical Against Resistance Opening: Normal Against Resistance Closing: Normal Pucker Lips: Normal Smile: Normal Lingual Movement: Normal, Symmetric Lingual Speed of Movement: Normal Lingual Movement Strgth Against Opposition: Normal Lingual Movement Characteristics: Normal Velopharyngeal Movement: Normal Laryngeal Movement: Able to Palpate, Labored,delay initiation Rate of Intake: WFL, Impulsive Labial Seal: WFL Chewing: WFL Oral Prep Time: WFL A-P Transit: WFL Pocketing: None Timing of Swallow: Delayed Coughing/Throat Clear: Yes (thin liquid) Recommendations - Speech Evaluation, Impression/Plan Impression: Baseline Dysphagia with h/o aspiration on thin liquids. Better tolerance on nectar thick liquids but does not comply. Pt admits to coughing at times on thin liquid and drinks it at home. Performance similar to previous swallowing evaluations. - Disposition Discharge to: To be Determined - Dysphagia Impressions/Plan Swallowing Skills: Impaired Dysphagia Impressions: Mild Impairment, Suspect Aspiration (on thin liquid) *Silent aspiration: cannot be R/O at bedside Recommendations: Modified Barium Swallow (If cough, congestion, fever) - Recommendations Diet Consistency: Dysphagia Minced, 1 - 2 Soft Items Medication Administration: Crushed with applesauce Liquids: [place] Thick Supplement: Magic Cup, Ensure Pudding
--- NOTE | 2018-09-07 11:56 | PN ---
Teaching Attending Note Name of Resident: Gwendolyn Kimbrough ATTENDING PHYSICIAN STATEMENT I saw and evaluated the patient. I reviewed the resident's note and discussed the case with the resident. I agree with the resident's findings and plan as documented. SUBJECTIVE: Pt seen and examined in the ICU. Remains extubated. Off pressors. No fevers recorded. Hungry. OBJECTIVE: Vital Signs Period Temp Pulse Resp BP Sys/Mendoza Pulse Ox Last 24 Hr 98.2 F-98.8 F 18-84 14-19 100-132/34-86 99-100 Intake & Output 09/04/18 09/05/18 09/06/18 09/07/18 23:59 23:59 23:59 23:59 Intake Total 4379.1 1854 200 Output Total 1000 2850 600 Balance 3379.1 -996 -400 Weight 74.3 kg 74.3 kg 78.925 kg 77.337 kg Gen: NAD at rest Heart: RRR Lung: decreased breath sounds at the bases Abd: soft, nontender Ext: no edema CBC, BMP 09/07/18 05:30 09/07/18 05:30 Active Medications Acetaminophen (Tylenol -) 650 mg PO Q4H PRN PRN Reason: FEVER Albuterol/Ipratropium (Duoneb -) 1 amp NEB RQID [facility] Last Admin: 09/07/18 11:45 Dose: Not Given Apixaban (Eliquis -) 5 mg PO BID [facility] Last Admin: 09/07/18 09:46 Dose: 5 mg Aspirin (Asa -) 81 mg PO [facility] Last Admin: 09/06/18 21:45 Dose: 81 mg Atorvastatin Calcium (Lipitor -) 80 mg PO [facility] Last Admin: 09/06/18 21:47 Dose: 80 mg Chlorhexidine Gluconate (Hibiclens For Decolonization -) 1 applic TP [facility] Last Admin: 09/06/18 21:47 Dose: 1 applic Duloxetine HCl (Cymbalta -) 20 mg PO BID [facility] Last Admin: 09/07/18 09:46 Dose: 20 mg Hydrocortisone Sodium Succinate (Solu-Cortef -) 100 mg IVPB Q8H [facility] Last Admin: 09/07/18 04:45 Dose: 100 mg Vancomycin HCl (Vancomycin (Pre-Docked)) 1,000 mg in 250 mls @ 166.667 mls/hr IVPB Q12H [facility]; Protocol Last Admin: 09/07/18 09:47 Dose: 166.667 mls/hr Piperacillin Sod/Tazobactam (Sod 3.375 gm/ Dextrose) 50 mls @ 200 mls/hr IVPB Q8H-IV [facility]; Protocol Last Admin: 09/07/18 09:48 Dose: 200 mls/hr Insulin Aspart (Novolog Vial Sliding Scale -) 1 vial SQ ACHS [facility]; Protocol Last Admin: 09/07/18 11:02 Dose: 4 units Mupirocin (Bactroban Ointment (For Decolonization) -) 1 applic NS BID [facility] Stop: 09/10/18 00:44 Last Admin: 09/07/18 09:45 Dose: 1 applic Mycophenolate Sodium (Mycophenolic Acid) 360 mg PO BID [facility] Last Admin: 09/07/18 09:46 Dose: 360 mg Ranitidine HCl (Zantac Oral Solution -) 150 mg GT BID [facility] Last Admin: 09/07/18 09:47 Dose: 150 mg Tacrolimus (Prograf) 1 mg PO BID [facility] Last Admin: 09/07/18 09:46 Dose: 1 mg ASSESSMENT AND PLAN: Acute Hypoxic Respiratory failure MRSA Bacteremia Finger Abscess r/o Pneumonia Septic Shock Lactic Acidosis Acute Kidney Injury s/p Renal Transplant on immunosuppressants Hypoglycemia LV Diastolic Dysfunction HTN Hyperlipidemia h/o DVT - continue antibiotics - f/u cultures - taper FiO2 to keep SpO2 >90% - continue IVF - monitor urine output, creatinine - can taper stress dose steroids - f/u prograf level - continue anticoagulation - aspiration precautions - DVT/GI prophylaxis
--- NOTE | 2018-09-07 12:31 | PN ---
Physical Exam: SUBJECTIVE: - Off pressors yesterday, central line removed - Transitioned to nasal cannula - Sugars to 53 overnight. Given 250cc bolus D5 NS OBJECTIVE: Vital Signs Period Temp Pulse Resp BP Sys/Mendoza Pulse Ox Last 24 Hr 98.2 F-98.8 F 18-84 14-19 100-130/34-86 99-100 General: Awake, alert. HEENT: PERRL, EOMI, MMM Cards: RRR. Mid sternal scar Pulm: Comfortable with NC. Slight crackles bilaterally Abd: Soft, nontender, nondistended : Monahan in place, clear yellow urine draining Ext: LLE with 2+ pitting edema to knee, including foot. L hand with dry, scabbed wound to lateral middle finger; no surrounding erythema, edema, drainage Neuro: Awake, alert, conversational. No focal deficits. Laboratory Results - last 24 hr 09/06/18 09/06/18 09/06/18 11:36 15:13 22:27 WBC RBC Hgb Hct MCV MCH MCHC RDW Plt Count MPV Absolute Neuts (auto) Neutrophils % Lymphocytes % Monocytes % Eosinophils % Basophils % Nucleated RBC % Sodium Potassium Chloride Carbon Dioxide Anion Gap BUN Creatinine Creat Clearance w eGFR POC Glucometer 220.62006 193.30612 [phone] Random Glucose Calcium Phosphorus Magnesium Total Bilirubin AST ALT Alkaline Phosphatase Total Protein Albumin Vitamin B12 TSH Vancomycin Pre-Dose 09/06/18 09/07/18 09/07/18 23:38 02:16 02:18 WBC RBC Hgb Hct MCV MCH MCHC RDW Plt Count MPV Absolute Neuts (auto) Neutrophils % Lymphocytes % Monocytes % Eosinophils % Basophils % Nucleated RBC % Sodium Potassium Chloride Carbon Dioxide Anion Gap BUN Creatinine Creat Clearance w eGFR POC Glucometer 80.48890 65.48905 [phone] Random Glucose Calcium Phosphorus Magnesium Total Bilirubin AST ALT Alkaline Phosphatase Total Protein Albumin Vitamin B12 TSH Vancomycin Pre-Dose 09/07/18 09/07/18 09/07/18 05:30 05:30 05:30 WBC 8.4 RBC 3.74 L Hgb 10.5 L Hct 32.9 L MCV 88.0 MCH 28.2 MCHC 32.0 RDW 16.7 H Plt Count 137 D MPV 8.3 Absolute Neuts (auto) 7.1 Neutrophils % 84.6 H Lymphocytes % 10.4 D Monocytes % 4.8 Eosinophils % 0.1 D Basophils % 0.1 Nucleated RBC % 0 Sodium 139 Potassium 4.2 Chloride 109 H Carbon Dioxide 21 Anion Gap 8 BUN 32 H Creatinine 1.3 Creat Clearance w eGFR 53.67 POC Glucometer Random Glucose 166 H Calcium 8.2 L Phosphorus 4.6 Magnesium 2.0 Total Bilirubin 0.6 AST 28 ALT 31 Alkaline Phosphatase 45 Total Protein 4.8 L Albumin 2.5 L Vitamin B12 682 TSH 0.35 L D Vancomycin Pre-Dose 28.6 H 09/07/18 06:39 WBC RBC Hgb Hct MCV MCH MCHC RDW Plt Count MPV Absolute Neuts (auto) Neutrophils % Lymphocytes % Monocytes % Eosinophils % Basophils % Nucleated RBC % Sodium Potassium Chloride Carbon Dioxide Anion Gap BUN Creatinine Creat Clearance w eGFR POC Glucometer 194.59154 Random Glucose Calcium Phosphorus Magnesium Total Bilirubin AST ALT Alkaline Phosphatase Total Protein Albumin Vitamin B12 TSH Vancomycin Pre-Dose Active Medications Generic Name Dose Route Start Last Admin Trade Name Freq PRN Reason Stop Dose Admin Acetaminophen 650 mg 09/04/18 20:56 Tylenol - PO Q4H PRN FEVER Albuterol/Ipratropium 1 amp 09/05/18 08:00 09/07/18 11:45 Duoneb - NEB Not Given RQID HUGO Apixaban 5 mg 09/04/18 22:00 09/07/18 09:46 Eliquis - PO 5 mg BID HUGO Administration Aspirin 81 mg 09/04/18 22:00 09/06/18 21:45 Asa - PO 81 mg HS HUGO Administration Atorvastatin Calcium 80 mg 09/04/18 22:00 09/06/18 21:47 Lipitor - PO 80 mg HS HUGO Administration Chlorhexidine Gluconate 1 applic 09/05/18 00:45 09/06/18 21:47 Hibiclens For Decolonization - TP 1 applic HS HUGO Administration Duloxetine HCl 20 mg 09/04/18 22:00 09/07/18 09:46 Cymbalta - PO 20 mg BID HUGO Administration Hydrocortisone Sodium Succinate 50 mg 09/07/18 12:00 Solu-Cortef - IVPB Q8H [facility] Vancomycin HCl 1,000 mg in 250 mls @ 166.667 mls/hr 09/05/18 22:00 09/07/18 09:47 Vancomycin (Pre-Docked) IVPB 166.667 mls/hr Q12H HUGO Administration Protocol Piperacillin Sod/Tazobactam 50 mls @ 200 mls/hr 09/06/18 11:28 09/07/18 09:48 Sod 3.375 gm/ Dextrose IVPB 200 mls/hr Q8H-IV HUGO Administration Protocol Insulin Aspart 1 vial 09/07/18 07:00 09/07/18 11:02 Novolog Vial Sliding Scale - SQ 4 units ACHS HUGO Administration Protocol Mupirocin 1 applic 09/05/18 00:45 09/07/18 09:45 Bactroban Ointment (For Decolonization) - NS 09/10/18 00:44 1 applic BID HUGO Administration Mycophenolate Sodium 360 mg 09/04/18 22:00 09/07/18 09:46 Mycophenolic Acid PO 360 mg BID HUGO Administration Ranitidine HCl 150 mg 09/05/18 12:15 09/07/18 09:47 Zantac Oral Solution - GT 150 mg BID HUGO Administration Tacrolimus 1 mg 09/04/18 22:00 09/07/18 09:46 Prograf PO 1 mg BID HUGO Administration ASSESSMENT/PLAN: Demond Abel is a 78yo man with a PMH of IDDM, HTN, CAD s/p CT s/p CABG, CHF, previously ESRD on HD now s/p kidney transplant (2008) on immunosuppresion, previous DVT on apixaban, multiple previous hospitalizations and intubations for hypoglycemic episodes. He presented to the ED on 09/04 with AMS/lethargy, hypoglycemia, and respiratory distress as well as hypotension to the 70's. He was admitted with a working diagnosis of septic shock secondary to presumed pneumonia. His condition has improved significantly, and his shock has resolved. He is stable for transfer to the floor today. Neuro: - Sedation off after self-extubation. - Mental status apparently at baseline - Neurology following (Dr George) - recommends checking B12, TSH, RPR - B12 682, TSH 0.35, RPR pending - Per daughter, has been increasingly "confused" over the past few years. CV: - Hypotension resolved, pressors d/c'd - IVF stopped per nephrology recommendation. - Echo with normal EF - Significant cardiac history. Continue home ASA, atorvastatin Pulm: - Self-extubated 2 days ago - Satting well on NC - Duonebs Q6hr Heme: - Continue home apixaban - Monitor daily CBC GI: - Speech/swallow eval completed - Started on dysphagia minced diet with nectar thick liquids - Barium swallow pending Renal: - h/o kidney transplant. BUN/Cr at mildly elevated - Monahan in place. - Monitor I/O - UA negative, culture pending - Followed by Dr Perez - Recommends holding IVF. Tacrolimus level sent. Transplant US completed, no blood flow compromise or obvious abnormalities ID: - Working diagnosis septic shock, presumed pneumonia with WBC to 13, fever to 101.8 on admission - WBC to 8.4 from 16 - Blood cultures from 09/04 with presumptive MRSA. New cultures sent 09/06 are pending - Suspected source left finger wound - Empiric vanc/zosyn - Dr Ziegler following Endo: - Presented with hypoglycemia at home to 27. Per chart review, multiple hypoglycemic episodes previously - Has IDDM. Monitor BG closely - On prednisone at home, 5mg daily. Stress dose steroids started - hydrocortisone 100mg Q8hr - Endo consult placed - Rec Q4hr BGM and ISS Psych: - Continue home duloxetine Musc: - Turn Q2hr - Mittens to prevent pulling lines/tubes as needed - PT ordered PPx: - Apixaban - Pantoprazole daily FEN: - Dysphagia minced - SLIV per Dr Perez. Rosman thick liquids - Replete lytes PRN Dispo: - Transfer to floor Seen and discussed with Dr Fischer. Gwendolyn Kimbrough PGY1 Visit type - Emergency Visit Emergency Visit: No - New Patient This patient is new to me today: No - Critical Care Critical Care patient: Yes Total Critical Care Time (in minutes): 40 Critical Care Statement: The care of this patient involved high complexity decision making to prevent further life threatening deterioration of the patient 's condition and/or to evaluate & treat vital organ system(s) failure or risk of failure.
--- NOTE | 2018-09-07 14:00 | PN ---
Progress Note (short form) - Note Progress Note: alert off pressors yesterday femoral line d/letitia yesterday Vital Signs Period Temp Pulse Resp BP Sys/Mendoza Pulse Ox Last 24 Hr 98.2 F-98.8 F 18-84 14-19 100-130/34-86 99-100 cor-rrr lungs clear abd soft,nt ext fourth finger right hand dry ulcer CBC, BMP 09/07/18 05:30 09/07/18 05:30 Laboratory Tests 09/07/18 05:30 Vancomycin Pre-Dose 28.6 H Microbiology 09/04/18 16:40 Blood - Peripheral Venous Blood Culture - Final S Aureus 09/06/18 09:00 Blood - Peripheral Venous Blood Culture - Preliminary NO GROWTH OBTAINED AFTER 24 HOURS, INCUBATION TO CONTINUE FOR 4 DAYS. 09/06/18 09:00 Blood - Peripheral Venous Blood Culture - Preliminary NO GROWTH OBTAINED AFTER 24 HOURS, INCUBATION TO CONTINUE FOR 4 DAYS. 09/04/18 16:15 Blood - Peripheral Venous Blood Culture - Preliminary Staphylococcus Coagulase Neg 09/05/18 18:30 Urine For Antigen Detection Legionella Antigen - Final 09/05/18 18:30 Urine For Antigen Detection Streptococcus pneumoniae Antigen (M - Final 09/06/18 06:00 Urine For Antigen Detection Legionella Antigen - Final 09/06/18 06:00 Urine For Antigen Detection Streptococcus pneumoniae Antigen (M - Final 09/04/18 18:32 Urine - Urine - Catheterized Urine Culture - Final NO GROWTH OBTAINED cxray cardiomegaly, congestion a/p sepsis-MRSA bacteremia clinically do not think he has pneumonia- rapid respiratory improvement d/c zosyn hold vancomycin , check vancomycin trough in am renal transplant elevated creatinine- antibiotics adjusted Problem List - Problems (1) Sepsis Code(s): A41.9 - SEPSIS, UNSPECIFIED ORGANISM (2) Acute respiratory failure Code(s): J96.00 - ACUTE RESPIRATORY FAILURE, UNSP W HYPOXIA OR HYPERCAPNIA (3) PNA (pneumonia) Code(s): J18.9 - PNEUMONIA, UNSPECIFIED ORGANISM Qualifiers: Pneumonia type: due to unspecified organism Laterality: unspecified laterality Lung location: unspecified part of lung Qualified Code(s): J18.9 - Pneumonia, unspecified organism (4) Bacteremia Code(s): R78.81 - BACTEREMIA (5) History of MRSA infection Code(s): Z86.14 - PERSONAL HISTORY OF METHICILLIN RESIS STAPH INFECTION (6) H/O kidney transplant Code(s): Z94.0 - KIDNEY TRANSPLANT STATUS (7) DM2 (diabetes mellitus, type 2) Code(s): E11.9 - TYPE 2 DIABETES MELLITUS WITHOUT COMPLICATIONS Qualifiers: Diabetes mellitus group home insulin use: with group home use
--- NOTE | 2018-09-07 15:56 | PN ---
Progress Note, Physician History of Present Illness: Pt seen and examined at bedside. He is awake but is confused. - Current Medication List Current Medications: Active Medications Acetaminophen (Tylenol -) 650 mg PO Q4H PRN PRN Reason: FEVER Albuterol/Ipratropium (Duoneb -) 1 amp NEB RQID [facility] Last Admin: 09/07/18 15:37 Dose: Not Given Apixaban (Eliquis -) 5 mg PO BID [facility] Last Admin: 09/07/18 09:46 Dose: 5 mg Aspirin (Asa -) 81 mg PO HS [facility] Last Admin: 09/06/18 21:45 Dose: 81 mg Atorvastatin Calcium (Lipitor -) 80 mg PO HS [facility] Last Admin: 09/06/18 21:47 Dose: 80 mg Chlorhexidine Gluconate (Hibiclens For Decolonization -) 1 applic TP HS [facility] Last Admin: 09/06/18 21:47 Dose: 1 applic Duloxetine HCl (Cymbalta -) 20 mg PO BID [facility] Last Admin: 09/07/18 09:46 Dose: 20 mg Hydrocortisone Sodium Succinate (Solu-Cortef -) 50 mg IVPB Q8H [facility] Last Admin: 09/07/18 12:56 Dose: 50 mg Insulin Aspart (Novolog Vial Sliding Scale -) 1 vial SQ ACHS [facility]; Protocol Last Admin: 09/07/18 11:02 Dose: 4 units Mupirocin (Bactroban Ointment (For Decolonization) -) 1 applic NS BID [facility] Stop: 09/10/18 00:44 Last Admin: 09/07/18 09:45 Dose: 1 applic Mycophenolate Sodium (Mycophenolic Acid) 360 mg PO BID [facility] Last Admin: 09/07/18 09:46 Dose: 360 mg Ranitidine HCl (Zantac Oral Solution -) 150 mg GT BID [facility] Last Admin: 09/07/18 09:47 Dose: 150 mg Tacrolimus (Prograf) 1 mg PO BID [facility] Last Admin: 09/07/18 09:46 Dose: 1 mg - Objective Vital Signs: Vital Signs Temperature 98.3 F 09/07/18 14:00 Pulse Rate 67 09/07/18 14:00 Respiratory Rate 15 09/07/18 14:00 Blood Pressure 106/65 09/07/18 14:00 O2 Sat by Pulse Oximetry (%) 99 09/07/18 09:00 Constitutional: Yes: Calm Eyes: Yes: Conjunctiva Clear HENT: Yes: Atraumatic Cardiovascular: Yes: S1, S2 Respiratory: Yes: On Nasal O2 Gastrointestinal: Yes: Soft Genitourinary: Yes: Rodriguez Present Edema: No Neurological: Yes: Confusion Labs: CBC, BMP 09/07/18 05:30 09/07/18 05:30 INR, PTT INR 1.01 (0.83-1.09) 09/04/18 16:15 Problem List - Problems (1) Change in mental status Code(s): R41.82 - ALTERED MENTAL STATUS, UNSPECIFIED Qualifiers: Altered mental status type: delirium Qualified Code(s): R41.0 - Disorientation, unspecified (2) Hypoglycemia Code(s): E16.2 - HYPOGLYCEMIA, UNSPECIFIED (3) Kidney transplant recipient Code(s): Z94.0 - KIDNEY TRANSPLANT STATUS Assessment/Plan Current Medications Generic Name Dose Route Start Last Admin Trade Name Freq PRN Reason Stop Dose Admin Acetaminophen 650 mg 09/04/18 20:56 Tylenol - PO Q4H PRN FEVER Albuterol/Ipratropium 1 amp 09/05/18 08:00 09/07/18 15:37 Duoneb - NEB Not Given RQID HUGO Apixaban 5 mg 09/04/18 22:00 09/07/18 09:46 Eliquis - PO 5 mg BID HUGO Administration Aspirin 81 mg 09/04/18 22:00 09/06/18 21:45 Asa - PO 81 mg HS HUGO Administration Atorvastatin Calcium 80 mg 09/04/18 22:00 09/06/18 21:47 Lipitor - PO 80 mg HS HUGO Administration Chlorhexidine Gluconate 1 applic 09/05/18 00:45 09/06/18 21:47 Hibiclens For Decolonization - TP 1 applic HS HUGO Administration Duloxetine HCl 20 mg 09/04/18 22:00 09/07/18 09:46 Cymbalta - PO 20 mg BID HUGO Administration Hydrocortisone Sodium Succinate 50 mg 09/07/18 12:00 09/07/18 12:56 Solu-Cortef - IVPB 50 mg Q8H HUGO Administration Insulin Aspart 1 vial 09/07/18 07:00 09/07/18 11:02 Novolog Vial Sliding Scale - SQ 4 units ACHS HUGO Administration Protocol Mupirocin 1 applic 09/05/18 00:45 09/07/18 09:45 Bactroban Ointment (For Decolonization) - NS 09/10/18 00:44 1 applic BID HUGO Administration Mycophenolate Sodium 360 mg 09/04/18 22:00 09/07/18 09:46 Mycophenolic Acid PO 360 mg BID HUGO Administration Ranitidine HCl 150 mg 09/05/18 12:15 09/07/18 09:47 Zantac Oral Solution - GT 150 mg BID HUGO Administration Tacrolimus 1 mg 09/04/18 22:00 09/07/18 09:46 Prograf PO 1 mg BID HUGO Administration Impression 1. CKD 2. kidney transplant 3. DM with labile blood pressure 4. hx of syncope 5. HTN 6. hyperlipidemia 7. CHF 8. acute resp failure s/p intubation 9. Hx DVT - pt has IVC filter Plan - renal function stabilizing - can d/c rodriguez - follow prograf level - repeat labs in am - d/c fluids once eating - follow up echo - monitor pulse ox Dr Perez
[2018-09-07] MEDS ORDERED: INSULIN (NOVOLOG) ASPART 100 UNITS/ML 10ML VIAL SQ ONE (18:40)
[2018-09-07] MEDS ORDERED: MYCOPHENOLATE SODIUM 360 MG TABLET.DR PO SCH (22:00)
[2018-09-07] MEDS ORDERED: APIXABAN 5 MG TABLET PO SCH (22:00)
[2018-09-07] MEDS: CHLORHEXIDINE GLUCONATE 4% CLEANSER FOR DECOLONIZATION TP SCH (22:20)
[2018-09-07] MEDS: ATORVASTATIN CA 40 MG TABLET (FP) PO SCH (22:22)
[2018-09-07] MEDS: TAMSULOSIN HCL 0.4 MG CAP PO SCH (22:22)
[2018-09-07] MEDS: ASPIRIN 81 MG CHEWABLE TABLETS PO SCH (22:22)
[2018-09-07] MEDS: INSULIN (LEVEMIR) 100 UNITS/ML UNITS SQ SCH (22:33)
[2018-09-08] MEDS: HYDROCORTISONE SOD SUCCINATE 100 MG/2 ML VIAL IVPB SCH ×3 (03:19→21:10)
[2018-09-08 06:09] LABS: EOS % 0.1 % (0-4.5); HEMATOCRIT 32.9 % (35.4-49); HEMOGLOBIN 10.5 GM/dL (11.7-16.9); LYMPH % 8.3 % (8-40); MCH 28.2 pg (25.7-33.7); MCHC 32.1 g/dl (32.0-35.9); MEAN CELL VOLUME 87.8 fl (80-96); MEAN PLT VOLUME 8.2 fl (7.5-11.1); NEUT % 85.6 % (42.8-82.8); PLATELET COUNT 137 K/MM3 (134-434); RBC 3.74 M/mm3 (4.00-5.60); RDW 16.3 % (11.9-15.9); WHITE BLOOD COUNT 7.9 K/mm3 (4.0-10.0)
[2018-09-08] MEDS: INSULIN SLIDING SCALE (NOVOLOG) 1 VIAL SQ SCH ×4 (06:58→21:37)
[2018-09-08 07:04] LABS: ANION GAP 7 MMOL/L (8-16); BLOOD UREA NITROGEN 41 mg/dL (7-18); CHLORIDE 110 mmol/L (98-107); CO2 24 mmol/L (21-32); CREATININE 1.4 mg/dL (0.55-1.3); GLUCOSE,RANDOM 136 mg/dL (74-106); MAGNESIUM 2.2 mg/dL (1.8-2.4); PHOSPHOROUS 3.8 mg/dL (2.5-4.9); POTASSIUM 3.7 mmol/L (3.5-5.1); SODIUM 141 mmol/L (136-145)
[2018-09-08] MEDS: ALBUTEROL SO4 2.5/IPRATROPIUM 0.5 INH SOL 3 ML VIAL.NEB. NEB SCH ×4 (07:50→20:26)
--- NOTE | 2018-09-08 08:41 | PN ---
Progress Note, Physician - Current Medication List Current Medications: Active Medications Acetaminophen (Tylenol -) 650 mg PO Q4H PRN PRN Reason: FEVER Albuterol/Ipratropium (Duoneb -) 1 amp NEB RQID [facility] Last Admin: 09/08/18 07:50 Dose: 1 amp Apixaban (Eliquis -) 5 mg PO BID [facility] Last Admin: 09/07/18 22:22 Dose: 5 mg Aspirin (Asa -) 81 mg PO [facility] Last Admin: 09/07/18 22:22 Dose: 81 mg Atorvastatin Calcium (Lipitor -) 80 mg PO [facility] Last Admin: 09/07/18 22:22 Dose: 80 mg Chlorhexidine Gluconate (Hibiclens For Decolonization -) 1 applic TP [facility] Last Admin: 09/07/18 22:20 Dose: 1 applic Duloxetine HCl (Cymbalta -) 20 mg PO BID [facility] Last Admin: 09/07/18 22:22 Dose: 20 mg Hydrocortisone Sodium Succinate (Solu-Cortef -) 50 mg IVPB Q8H [facility] Last Admin: 09/08/18 03:19 Dose: 50 mg Insulin Aspart (Novolog Vial Sliding Scale -) 1 vial SQ [facility]; Protocol Last Admin: 09/08/18 06:58 Dose: Not Given Insulin Detemir (Levemir Vial) 16 units SQ [facility] Last Admin: 09/07/18 22:33 Dose: 16 units Mupirocin (Bactroban Ointment (For Decolonization) -) 1 applic NS BID [facility] Stop: 09/10/18 00:44 Last Admin: 09/07/18 22:23 Dose: 1 applic Mycophenolate Sodium (Mycophenolic Acid) 360 mg PO BID [facility] Last Admin: 09/07/18 22:23 Dose: 360 mg Ranitidine HCl (Zantac Oral Solution -) 150 mg GT BID [facility] Last Admin: 09/07/18 22:22 Dose: 150 mg Tacrolimus (Prograf) 1 mg PO DAILY [facility] Tacrolimus (Prograf) 0.5 mg PO DAILY [facility] Tamsulosin HCl (Flomax -) 0.4 mg PO [facility] Last Admin: 09/07/18 22:22 Dose: 0.4 mg - Objective Vital Signs: Vital Signs Temperature 98.4 F 09/08/18 06:00 Pulse Rate 61 09/08/18 06:00 Respiratory Rate 20 09/08/18 06:00 Blood Pressure 124/42 L 09/08/18 06:00 O2 Sat by Pulse Oximetry (%) 99 09/07/18 21:00 Cardiovascular: Yes: S1, S2 Respiratory: Yes: Regular, CTA Bilaterally Gastrointestinal: Yes: Normal Bowel Sounds, Soft Labs: CBC, BMP 09/08/18 05:30 09/08/18 05:30 INR, PTT INR 1.01 (0.83-1.09) 09/04/18 16:15 Problem List - Problems (1) Change in mental status Assessment/Plan: Resolved--Back to baseline Code(s): R41.82 - ALTERED MENTAL STATUS, UNSPECIFIED Qualifiers: Altered mental status type: delirium Qualified Code(s): R41.0 - Disorientation, unspecified (2) Adrenal insufficiency Assessment/Plan: Steroids Taper Endo on case Code(s): E27.40 - UNSPECIFIED ADRENOCORTICAL INSUFFICIENCY (3) Bacteremia Assessment/Plan: Iv abx per ID--Will need retirement Picc line on Tuesday Microbiology 09/07/18 09:00 Sputum - Expectorated Gram Stain - Final 09/04/18 16:40 Blood - Peripheral Venous Blood Culture - Final S Aureus 09/06/18 09:00 Blood - Peripheral Venous Blood Culture - Preliminary NO GROWTH OBTAINED AFTER 24 HOURS, INCUBATION TO CONTINUE FOR 4 DAYS. 09/06/18 09:00 Blood - Peripheral Venous Blood Culture - Preliminary NO GROWTH OBTAINED AFTER 24 HOURS, INCUBATION TO CONTINUE FOR 4 DAYS. 09/04/18 16:15 Blood - Peripheral Venous Blood Culture - Preliminary Staphylococcus Coagulase Neg 09/05/18 18:30 Urine For Antigen Detection Legionella Antigen - Final 09/05/18 18:30 Urine For Antigen Detection Streptococcus pneumoniae Antigen (M - Final 09/06/18 06:00 Urine For Antigen Detection Legionella Antigen - Final 09/06/18 06:00 Urine For Antigen Detection Streptococcus pneumoniae Antigen (M - Final 09/04/18 18:32 Urine - Urine - Catheterized Urine Culture - Final NO GROWTH OBTAINED Code(s): R78.81 - BACTEREMIA (4) Kidney transplant recipient Assessment/Plan: prgraf,mycophenolic acid and prednisone Code(s): Z94.0 - KIDNEY TRANSPLANT STATUS (5) DM2 (diabetes mellitus, type 2) Assessment/Plan: With Hypoglycemia--may have shireen due to sepsis endocrine consult on insulin-levemir on sliding scale Code(s): E11.9 - TYPE 2 DIABETES MELLITUS WITHOUT COMPLICATIONS Qualifiers: Diabetes mellitus adjunct faculty for medical terminology insulin use: with adjunct faculty for medical terminology use (6) Left leg DVT Assessment/Plan: ivc ramy jerome Code(s): I82.402 - ACUTE EMBOLISM AND THOMBOS UNSP DEEP VEINS OF L LOW EXTREM Qualifiers: Affected thrombotic vein of extremity: other lower extremity vein Chronicity: acute Qualified Code(s): I82.492 - Acute embolism and thrombosis of other specified deep vein of left lower extremity
[2018-09-08] MEDS ORDERED: PT OWN MED DRAWER 7, Y5N ONE ×3 (09:09→21:14)
[2018-09-08] MEDS: RANITIDINE HCL 150 MG/10 ML UNIT-DOSE GT SCH ×2 (09:20→21:10)
[2018-09-08] MEDS: TACROLIMUS ANHYDROUS 1 MG CAPSULE PO SCH (09:20)
[2018-09-08] MEDS: MYCOPHENOLATE SODIUM 360 MG TABLET.DR PO SCH ×2 (09:20→21:10)
[2018-09-08] MEDS: APIXABAN 5 MG TABLET PO SCH ×2 (09:20→21:10)
[2018-09-08] MEDS: DULoxetine HCL 20 MG CAPSULE.DR (FP) PO SCH ×2 (09:20→21:25)
[2018-09-08] MEDS ORDERED: INSULIN DETEMIR 16 UNIT SQ SCH (10:00)
--- NOTE | 2018-09-08 10:12 | PN ---
Progress Note (short form) - Note Progress Note: doing well alert feels well Vital Signs Period Temp Pulse Resp BP Sys/Mendoza Pulse Ox Last 24 Hr 98.2 F-98.8 F 58-69 15-21 97-124/36-74 99 cor-rrr llungs clear abd soft,nt ext no edema CBC, BMP 09/08/18 05:30 09/08/18 05:30 Microbiology 09/06/18 09:00 Blood - Peripheral Venous Blood Culture - Preliminary NO GROWTH OBTAINED AFTER 48 HOURS, INCUBATION TO CONTINUE FOR 3 DAYS. 09/06/18 09:00 Blood - Peripheral Venous Blood Culture - Preliminary NO GROWTH OBTAINED AFTER 48 HOURS, INCUBATION TO CONTINUE FOR 3 DAYS. 09/07/18 09:00 Sputum - Expectorated Gram Stain - Final 09/07/18 09:00 Sputum - Expectorated Sputum Culture - Preliminary Staphylococcus Latex Coag Pos 09/04/18 16:40 Blood - Peripheral Venous Blood Culture - Final Mr S Aureus 09/04/18 16:15 Blood - Peripheral Venous Blood Culture - Preliminary Staphylococcus Coagulase Neg 09/05/18 18:30 Urine For Antigen Detection Legionella Antigen - Final 09/05/18 18:30 Urine For Antigen Detection Streptococcus pneumoniae Antigen (M - Final 09/06/18 06:00 Urine For Antigen Detection Legionella Antigen - Final 09/06/18 06:00 Urine For Antigen Detection Streptococcus pneumoniae Antigen (M - Final 09/04/18 18:32 Urine - Urine - Catheterized Urine Culture - Final NO GROWTH OBTAINED Laboratory Tests 09/07/18 09/08/18 05:30 05:30 Random Vancomycin 23.5 Vancomycin Pre-Dose 28.6 H cxray cardiomegaly, congestion a/p sepsis-MRSA bacteremia-?finger ulcer vanco level 23.5 repeat in am will require mcfp iv antibiotics d/w dr corral clinically do not think he has pneumonia- rapid respiratory improvement renal transplant elevated creatinine- antibiotics adjusted Problem List - Problems (1) Sepsis Code(s): A41.9 - SEPSIS, UNSPECIFIED ORGANISM (2) Acute respiratory failure Code(s): J96.00 - ACUTE RESPIRATORY FAILURE, UNSP W HYPOXIA OR HYPERCAPNIA (3) PNA (pneumonia) Code(s): J18.9 - PNEUMONIA, UNSPECIFIED ORGANISM Qualifiers: Pneumonia type: due to unspecified organism Laterality: unspecified laterality Lung location: unspecified part of lung Qualified Code(s): J18.9 - Pneumonia, unspecified organism (4) Bacteremia Code(s): R78.81 - BACTEREMIA (5) History of MRSA infection Code(s): Z86.14 - PERSONAL HISTORY OF METHICILLIN RESIS STAPH INFECTION (6) H/O kidney transplant Code(s): Z94.0 - KIDNEY TRANSPLANT STATUS (7) DM2 (diabetes mellitus, type 2) Code(s): E11.9 - TYPE 2 DIABETES MELLITUS WITHOUT COMPLICATIONS Qualifiers: Diabetes mellitus group home insulin use: with group home use
[2018-09-08] MEDS: MUPIROCIN 2% TOPICAL OINTMENT FOR DECOLONIZATION NS SCH ×2 (10:39→21:12)
--- NOTE | 2018-09-08 12:34 | PN ---
Teaching Attending Note Name of Resident: Gwendolyn Kimbrough ATTENDING PHYSICIAN STATEMENT I saw and evaluated the patient. I reviewed the resident's note and discussed the case with the resident. I agree with the resident's findings and plan as documented. SUBJECTIVE: Patient seen and examined in the ICU. Remains extubated. No pressors. No fevers recorded. Awake and responsive. Reports pain in finger. OBJECTIVE: Intake & Output 09/05/18 09/06/18 09/07/18 09/08/18 23:59 23:59 23:59 23:59 Intake Total 4379.1 1854 560 Output Total 1000 2850 1100 500 Balance 3379.1 -996 -540 -500 Weight 163 lb 12.855 oz 174 lb 170 lb 8 oz Last Vital Signs Temp Pulse Resp BP Pulse Ox 98.4 F 61 20 124/42 L 99 09/08/18 06:00 09/08/18 06:00 09/08/18 06:00 09/08/18 06:00 09/07/18 21:00 Active Medications Acetaminophen (Tylenol -) 650 mg PO Q4H PRN PRN Reason: FEVER Albuterol/Ipratropium (Duoneb -) 1 amp NEB RQID [facility] Last Admin: 09/08/18 11:11 Dose: 1 amp Apixaban (Eliquis -) 5 mg PO BID [facility] Last Admin: 09/08/18 09:20 Dose: 5 mg Aspirin (Asa -) 81 mg PO [facility] Last Admin: 09/07/18 22:22 Dose: 81 mg Atorvastatin Calcium (Lipitor -) 80 mg PO [facility] Last Admin: 09/07/18 22:22 Dose: 80 mg Chlorhexidine Gluconate (Hibiclens For Decolonization -) 1 applic TP [facility] Last Admin: 09/07/18 22:20 Dose: 1 applic Duloxetine HCl (Cymbalta -) 20 mg PO BID [facility] Last Admin: 09/08/18 09:20 Dose: 20 mg Hydrocortisone Sodium Succinate (Solu-Cortef -) 50 mg IVPB BID [facility] Last Admin: 09/08/18 09:20 Dose: 50 mg Insulin Aspart (Novolog Vial Sliding Scale -) 1 vial SQ [facility]; Protocol Last Admin: 09/08/18 06:58 Dose: Not Given Insulin Detemir (Levemir Vial) 16 units SQ [facility] Last Admin: 09/07/18 22:33 Dose: 16 units Mupirocin (Bactroban Ointment (For Decolonization) -) 1 applic NS BID [facility] Stop: 09/10/18 00:44 Last Admin: 09/08/18 10:39 Dose: 1 applic Mycophenolate Sodium (Mycophenolic Acid) 360 mg PO BID [facility] Last Admin: 09/08/18 09:20 Dose: 360 mg Ranitidine HCl (Zantac Oral Solution -) 150 mg GT BID [facility] Last Admin: 09/08/18 09:20 Dose: 150 mg Tacrolimus (Prograf) 1 mg PO DAILY [facility] Last Admin: 09/08/18 09:20 Dose: 1 mg Tacrolimus (Prograf) 0.5 mg PO [facility] Tamsulosin HCl (Flomax -) 0.4 mg PO [facility] Last Admin: 09/07/18 22:22 Dose: 0.4 mg Gen: NAD at rest Heart: RRR Lung: decreased breath sounds at the bases Abd: soft, nontender Ext: no edema Laboratory Results - last 24 hr 09/06/18 09/07/18 09/07/18 14:00 05:30 11:01 WBC RBC Hgb Hct MCV MCH MCHC RDW Plt Count MPV Absolute Neuts (auto) Neutrophils % Lymphocytes % Monocytes % Eosinophils % Basophils % Nucleated RBC % Sodium Potassium Chloride Carbon Dioxide Anion Gap BUN Creatinine Creat Clearance w eGFR POC Glucometer [phone] Random Glucose Calcium Phosphorus Magnesium Random Vancomycin Tacrolimus 8.2 RPR Titer Nonreactive 09/07/18 09/07/18 09/07/18 16:39 16:47 22:31 WBC RBC Hgb Hct MCV MCH MCHC RDW Plt Count MPV Absolute Neuts (auto) Neutrophils % Lymphocytes % Monocytes % Eosinophils % Basophils % Nucleated RBC % Sodium Potassium Chloride Carbon Dioxide Anion Gap BUN Creatinine Creat Clearance w eGFR POC Glucometer > 400 > [phone] Random Glucose Calcium Phosphorus Magnesium Random Vancomycin Tacrolimus RPR Titer 09/08/18 09/08/18 09/08/18 05:30 05:30 05:30 WBC 7.9 RBC 3.74 L Hgb 10.5 L Hct 32.9 L MCV 87.8 MCH 28.2 MCHC 32.1 RDW 16.3 H Plt Count 137 MPV 8.2 Absolute Neuts (auto) 6.8 Neutrophils % 85.6 H Lymphocytes % 8.3 D Monocytes % 6.0 Eosinophils % 0.1 Basophils % 0.0 Nucleated RBC % 0 Sodium 141 Potassium 3.7 Chloride 110 H Carbon Dioxide 24 Anion Gap 7 L BUN 41 H Creatinine 1.4 H Creat Clearance w eGFR 49.27 POC Glucometer Random Glucose 136 H Calcium 8.0 L Phosphorus 3.8 Magnesium 2.2 Random Vancomycin 23.5 Tacrolimus RPR Titer 09/08/18 05:45 WBC RBC Hgb Hct MCV MCH MCHC RDW Plt Count MPV Absolute Neuts (auto) Neutrophils % Lymphocytes % Monocytes % Eosinophils % Basophils % Nucleated RBC % Sodium Potassium Chloride Carbon Dioxide Anion Gap BUN Creatinine Creat Clearance w eGFR POC Glucometer [phone] Random Glucose Calcium Phosphorus Magnesium Random Vancomycin Tacrolimus RPR Titer ASSESSMENT AND PLAN: Acute Hypoxic Respiratory failure MRSA Bacteremia Finger Abscess r/o Pneumonia Septic Shock Lactic Acidosis Acute Kidney Injury s/p Renal Transplant on immunosuppressants Hypoglycemia LV Diastolic Dysfunction HTN Hyperlipidemia h/o DVT - continue antibiotics - FiO2 to keep SpO2 >90% - IVF - monitor urine output, creatinine - Taper stress dose steroids - Eliquis - Aspiration precautions - 4W / 4S monitoring Dr Melgar
--- NOTE | 2018-09-08 14:20 | PN ---
Physical Exam: SUBJECTIVE: - Hyperglycemic to 300's yesterday evening. Home levemir restarted - Xray Rt hand ordered for today to evaluate for osteomyelitis OBJECTIVE: Vital Signs Period Temp Pulse Resp BP Sys/Mendoza Pulse Ox Last 24 Hr 98.1 F-98.8 F 58-69 18-21 97-126/36-74 99-99 General: Awake, alert. HEENT: PERRL, EOMI, MMM Cards: RRR. Mid sternal scar Pulm: Comfortable with NC. Slight crackles bilaterally Abd: Soft, nontender, nondistended : Monahan in place, clear yellow urine draining Ext: LLE with 2+ pitting edema to knee, including foot. L hand with dry, scabbed wound to lateral middle finger; no surrounding erythema, edema, drainage Neuro: Awake, alert, conversational. No focal deficits. Laboratory Results - last 24 hr 09/06/18 09/07/18 09/07/18 14:00 11:01 16:39 WBC RBC Hgb Hct MCV MCH MCHC RDW Plt Count MPV Absolute Neuts (auto) Neutrophils % Lymphocytes % Monocytes % Eosinophils % Basophils % Nucleated RBC % Sodium Potassium Chloride Carbon Dioxide Anion Gap BUN Creatinine Creat Clearance w eGFR POC Glucometer [phone] > 400 Random Glucose Calcium Phosphorus Magnesium Random Vancomycin Tacrolimus 8.2 09/07/18 09/07/18 09/08/18 16:47 22:31 05:30 WBC RBC Hgb Hct MCV MCH MCHC RDW Plt Count MPV Absolute Neuts (auto) Neutrophils % Lymphocytes % Monocytes % Eosinophils % Basophils % Nucleated RBC % Sodium Potassium Chloride Carbon Dioxide Anion Gap BUN Creatinine Creat Clearance w eGFR POC Glucometer > [phone] Random Glucose Calcium Phosphorus Magnesium Random Vancomycin 23.5 Tacrolimus 09/08/18 09/08/18 09/08/18 05:30 05:30 05:45 WBC 7.9 RBC 3.74 L Hgb 10.5 L Hct 32.9 L MCV 87.8 MCH 28.2 MCHC 32.1 RDW 16.3 H Plt Count 137 MPV 8.2 Absolute Neuts (auto) 6.8 Neutrophils % 85.6 H Lymphocytes % 8.3 D Monocytes % 6.0 Eosinophils % 0.1 Basophils % 0.0 Nucleated RBC % 0 Sodium 141 Potassium 3.7 Chloride 110 H Carbon Dioxide 24 Anion Gap 7 L BUN 41 H Creatinine 1.4 H Creat Clearance w eGFR 49.27 POC Glucometer [phone] Random Glucose 136 H Calcium 8.0 L Phosphorus 3.8 Magnesium 2.2 Random Vancomycin Tacrolimus Active Medications Generic Name Dose Route Start Last Admin Trade Name Freq PRN Reason Stop Dose Admin Acetaminophen 650 mg 09/04/18 20:56 Tylenol - PO Q4H PRN FEVER Albuterol/Ipratropium 1 amp 09/05/18 08:00 09/08/18 11:11 Duoneb - NEB 1 amp RQID [facility] Administration Apixaban 5 mg 09/04/18 22:00 09/08/18 09:20 Eliquis - PO 5 mg BID [facility] Administration Aspirin 81 mg 09/04/18 22:00 09/07/18 22:22 Asa - PO 81 mg HS [facility] Administration Atorvastatin Calcium 80 mg 09/04/18 22:00 09/07/18 22:22 Lipitor - PO 80 mg HS [facility] Administration Chlorhexidine Gluconate 1 applic 09/05/18 00:45 09/07/18 22:20 Hibiclens For Decolonization - TP 1 applic HS [facility] Administration Duloxetine HCl 20 mg 09/04/18 22:00 09/08/18 09:20 Cymbalta - PO 20 mg BID [facility] Administration Hydrocortisone Sodium Succinate 50 mg 09/08/18 10:00 09/08/18 09:20 Solu-Cortef - IVPB 50 mg BID [facility] Administration Insulin Aspart 1 vial 09/07/18 07:00 09/08/18 12:39 Novolog Vial Sliding Scale - SQ 6 units ACHS [facility] Administration Protocol Insulin Detemir 16 units 09/07/18 22:00 09/07/18 22:33 Levemir Vial SQ 16 units HS [facility] Administration Mupirocin 1 applic 09/05/18 00:45 09/08/18 10:39 Bactroban Ointment (For Decolonization) - NS 09/10/18 00:44 1 applic BID [facility] Administration Mycophenolate Sodium 360 mg 09/04/18 22:00 09/08/18 09:20 Mycophenolic Acid PO 360 mg BID [facility] Administration Ranitidine HCl 150 mg 09/05/18 12:15 09/08/18 09:20 Zantac Oral Solution - GT 150 mg BID [facility] Administration Tacrolimus 1 mg 09/08/18 10:00 09/08/18 09:20 Prograf PO 1 mg DAILY [facility] Administration Tacrolimus 0.5 mg 09/08/18 22:00 Prograf PO HS [facility] Tamsulosin HCl 0.4 mg 09/07/18 22:00 09/07/18 22:22 Flomax - PO 0.4 mg HS [facility] Administration ASSESSMENT/PLAN: Demond Abel is a 78yo man with a PMH of IDDM, HTN, CAD s/p VT s/p CABG, CHF, previously ESRD on HD now s/p kidney transplant (2008) on immunosuppresion, previous DVT on apixaban, multiple previous hospitalizations and intubations for hypoglycemic episodes. He presented to the ED on 09/04 with AMS/lethargy, hypoglycemia, and respiratory distress as well as hypotension to the 70's. He was admitted with a working diagnosis of septic shock secondary to presumed pneumonia. His condition has improved significantly, and his shock has resolved. He is stable for transfer to the floor. Neuro: - Sedation off after self-extubation. - Mental status apparently at baseline - Neurology following (Dr George) - Per daughter, has been increasingly "confused" over the past few years. CV: - Hypotension resolved, off pressors for 2 days - IVF stopped per nephrology recommendation. - Echo with normal EF - Significant cardiac history. Continue home ASA, atorvastatin Pulm: - Self-extubated - Satting well on NC - Duonebs Q6hr Heme: - Continue home apixaban - Monitor daily CBC GI: - Speech/swallow eval completed - Tolerating dysphagia minced diet with nectar thick liquids - Barium swallow pending Renal: - h/o kidney transplant. BUN/Cr at mildly elevated - Monahan in place, will remove today. - Monitor I/O - UA negative, culture pending - Followed by Dr Perez - Recommends holding IVF. Tacrolimus level sent. Transplant US completed, no blood flow compromise or obvious abnormalities ID: - Initially presumed pneumonia with WBC to 13, fever to 101.8 on admission but respiratory status improved over 1-2 days without any sign of pulm infection at this point - Leukocytosis resolved - Blood cultures from 09/04 with MRSA. New cultures sent 09/06 are pending, NGTD - Suspected source left finger wound - Continue vanc. Zosyn D/C'd - Dr Toney following Endo: - Presented with hypoglycemia at home to 27. Per chart review, multiple hypoglycemic episodes previously - Has IDDM. Monitor BG closely - On prednisone at home, 5mg daily, continue stress dose steroids. Taper as tolerated. - Home levemir restarted - Endo consulted Psych: - Continue home duloxetine Musc: - OOB as tolerated - PT ordered PPx: - Apixaban - Pantoprazole daily FEN: - Dysphagia minced - SLIV per Dr Perez. Omega thick liquids - Replete lytes PRN Dispo: - Transfer to floor Seen and discussed with Dr Melgar. Gwendolyn Kimbrough PGY1 Visit type - Emergency Visit Emergency Visit: No - New Patient This patient is new to me today: No - Critical Care Critical Care patient: Yes Total Critical Care Time (in minutes): 35 Critical Care Statement: The care of this patient involved high complexity decision making to prevent further life threatening deterioration of the patient 's condition and/or to evaluate & treat vital organ system(s) failure or risk of failure.
--- NOTE | 2018-09-08 16:01 | PN ---
Progress Note, Physician History of Present Illness: Pt seen and examined at bedside. He is more awake and alert today. He denies shortness of breath. - Current Medication List Current Medications: Active Medications Acetaminophen (Tylenol -) 650 mg PO Q4H PRN PRN Reason: FEVER Albuterol/Ipratropium (Duoneb -) 1 amp NEB RQID [facility] Last Admin: 09/08/18 11:11 Dose: 1 amp Apixaban (Eliquis -) 5 mg PO BID [facility] Last Admin: 09/08/18 09:20 Dose: 5 mg Aspirin (Asa -) 81 mg PO [facility] Last Admin: 09/07/18 22:22 Dose: 81 mg Atorvastatin Calcium (Lipitor -) 80 mg PO [facility] Last Admin: 09/07/18 22:22 Dose: 80 mg Chlorhexidine Gluconate (Hibiclens For Decolonization -) 1 applic TP [facility] Last Admin: 09/07/18 22:20 Dose: 1 applic Duloxetine HCl (Cymbalta -) 20 mg PO BID [facility] Last Admin: 09/08/18 09:20 Dose: 20 mg Hydrocortisone Sodium Succinate (Solu-Cortef -) 50 mg IVPB BID [facility] Last Admin: 09/08/18 09:20 Dose: 50 mg Insulin Aspart (Novolog Vial Sliding Scale -) 1 vial SQ [facility]; Protocol Last Admin: 09/08/18 12:39 Dose: 6 units Insulin Detemir (Levemir Vial) 16 units SQ [facility] Last Admin: 09/07/18 22:33 Dose: 16 units Mupirocin (Bactroban Ointment (For Decolonization) -) 1 applic NS BID [facility] Stop: 09/10/18 00:44 Last Admin: 09/08/18 10:39 Dose: 1 applic Mycophenolate Sodium (Mycophenolic Acid) 360 mg PO BID [facility] Last Admin: 09/08/18 09:20 Dose: 360 mg Ranitidine HCl (Zantac Oral Solution -) 150 mg GT BID [facility] Last Admin: 09/08/18 09:20 Dose: 150 mg Tacrolimus (Prograf) 1 mg PO DAILY [facility] Last Admin: 09/08/18 09:20 Dose: 1 mg Tacrolimus (Prograf) 0.5 mg PO [facility] Tamsulosin HCl (Flomax -) 0.4 mg PO [facility] Last Admin: 09/07/18 22:22 Dose: 0.4 mg - Objective Vital Signs: Vital Signs Temperature 98.1 F 09/08/18 12:00 Pulse Rate 67 09/08/18 14:00 Respiratory Rate 20 09/08/18 14:00 Blood Pressure 133/46 L 09/08/18 14:00 O2 Sat by Pulse Oximetry (%) 99 09/08/18 09:00 Constitutional: Yes: Calm Eyes: Yes: Conjunctiva Clear Neck: Yes: Supple Cardiovascular: Yes: S1, S2 Respiratory: Yes: CTA Bilaterally Gastrointestinal: Yes: Soft Genitourinary: Yes: Rodriguez Present Musculoskeletal: Yes: WNL Edema: No Neurological: Yes: Confusion Labs: CBC, BMP 09/08/18 05:30 09/08/18 05:30 INR, PTT INR 1.01 (0.83-1.09) 09/04/18 16:15 Problem List - Problems (1) Change in mental status Code(s): R41.82 - ALTERED MENTAL STATUS, UNSPECIFIED Qualifiers: Altered mental status type: delirium Qualified Code(s): R41.0 - Disorientation, unspecified (2) Hypoglycemia Code(s): E16.2 - HYPOGLYCEMIA, UNSPECIFIED (3) Kidney transplant recipient Code(s): Z94.0 - KIDNEY TRANSPLANT STATUS Assessment/Plan Current Medications Generic Name Dose Route Start Last Admin Trade Name Frebulmaro PRN Reason Stop Dose Admin Acetaminophen 650 mg 09/04/18 20:56 Tylenol - PO Q4H PRN FEVER Albuterol/Ipratropium 1 amp 09/05/18 08:00 09/08/18 11:11 Duoneb - NEB 1 amp RQID [facility] Administration Apixaban 5 mg 09/04/18 22:00 09/08/18 09:20 Eliquis - PO 5 mg BID [facility] Administration Aspirin 81 mg 09/04/18 22:00 09/07/18 22:22 Asa - PO 81 mg HS [facility] Administration Atorvastatin Calcium 80 mg 09/04/18 22:00 09/07/18 22:22 Lipitor - PO 80 mg HS [facility] Administration Chlorhexidine Gluconate 1 applic 09/05/18 00:45 09/07/18 22:20 Hibiclens For Decolonization - TP 1 applic HS [facility] Administration Duloxetine HCl 20 mg 09/04/18 22:00 09/08/18 09:20 Cymbalta - PO 20 mg BID [facility] Administration Hydrocortisone Sodium Succinate 50 mg 09/08/18 10:00 09/08/18 09:20 Solu-Cortef - IVPB 50 mg BID [facility] Administration Insulin Aspart 1 vial 09/07/18 07:00 09/08/18 12:39 Novolog Vial Sliding Scale - SQ 6 units ACHS [facility] Administration Protocol Insulin Detemir 16 units 09/07/18 22:00 09/07/18 22:33 Levemir Vial SQ 16 units HS [facility] Administration Mupirocin 1 applic 09/05/18 00:45 09/08/18 10:39 Bactroban Ointment (For Decolonization) - NS 09/10/18 00:44 1 applic BID [facility] Administration Mycophenolate Sodium 360 mg 09/04/18 22:00 09/08/18 09:20 Mycophenolic Acid PO 360 mg BID [facility] Administration Ranitidine HCl 150 mg 09/05/18 12:15 09/08/18 09:20 Zantac Oral Solution - GT 150 mg BID [facility] Administration Tacrolimus 1 mg 09/08/18 10:00 09/08/18 09:20 Prograf PO 1 mg DAILY [facility] Administration Tacrolimus 0.5 mg 09/08/18 22:00 Prograf PO HS [facility] Tamsulosin HCl 0.4 mg 09/07/18 22:00 09/07/18 22:22 Flomax - PO 0.4 mg HS [facility] Administration Impression 1. CKD 2. kidney transplant 3. DM with labile blood pressure 4. hx of syncope 5. HTN 6. hyperlipidemia 7. CHF 8. acute resp failure s/p intubation 9. Hx DVT - pt has IVC filter Plan - repeat labs in am - repeat prograf level - decrease dose of prograf to 1 mg and 0.5 at night - d/c rodriguez catheter - monitor pulse ox Dr Perez
[2018-09-08] MEDS ORDERED: INSULIN (NOVOLOG) ASPART 100 UNITS/ML 10ML VIAL SQ ONE ×2 (19:26→23:45)
[2018-09-08] MEDS: TAMSULOSIN HCL 0.4 MG CAP PO SCH (21:10)
[2018-09-08] MEDS: ATORVASTATIN CA 40 MG TABLET (FP) PO SCH (21:10)
[2018-09-08] MEDS: ASPIRIN 81 MG CHEWABLE TABLETS PO SCH (21:10)
[2018-09-08] MEDS: CHLORHEXIDINE GLUCONATE 4% CLEANSER FOR DECOLONIZATION TP SCH (21:11)
[2018-09-08] MEDS: TACROLIMUS 0.5 MG CAPSULE PO SCH (21:15)
[2018-09-08] MEDS: INSULIN (LEVEMIR) 100 UNITS/ML UNITS SQ SCH (21:37)
--- NOTE | 2018-09-09 00:57 | PN ---
Progress Note, Physician Chief Complaint: awake eating no complaint History of Present Illness: sp extubation,respiratory failure,dm type 2,kidney transplant,labile blood sugars,now higher since iv steroid - Current Medication List Current Medications: Active Medications Acetaminophen (Tylenol -) 650 mg PO Q4H PRN PRN Reason: FEVER Albuterol/Ipratropium (Duoneb -) 1 amp NEB RQID [facility] Last Admin: 09/08/18 20:26 Dose: 1 amp Apixaban (Eliquis -) 5 mg PO BID [facility] Last Admin: 09/08/18 21:10 Dose: 5 mg Aspirin (Asa -) 81 mg PO HS [facility] Last Admin: 09/08/18 21:10 Dose: 81 mg Atorvastatin Calcium (Lipitor -) 80 mg PO HS [facility] Last Admin: 09/08/18 21:10 Dose: 80 mg Chlorhexidine Gluconate (Hibiclens For Decolonization -) 1 applic TP [facility] Last Admin: 09/08/18 21:11 Dose: 1 applic Duloxetine HCl (Cymbalta -) 20 mg PO BID [facility] Last Admin: 09/08/18 21:25 Dose: 20 mg Hydrocortisone Sodium Succinate (Solu-Cortef -) 50 mg IVPB BID [facility] Last Admin: 09/08/18 21:10 Dose: 50 mg Insulin Aspart (Novolog Vial Sliding Scale -) 1 vial SQ ACHS [facility]; Protocol Insulin Detemir (Levemir Vial) 20 units SQ AM [facility] Mupirocin (Bactroban Ointment (For Decolonization) -) 1 applic NS BID [facility] Stop: 09/10/18 00:44 Last Admin: 09/08/18 21:12 Dose: 1 applic Mycophenolate Sodium (Mycophenolic Acid) 360 mg PO BID [facility] Last Admin: 09/08/18 21:10 Dose: 360 mg Ranitidine HCl (Zantac Oral Solution -) 150 mg GT BID [facility] Last Admin: 09/08/18 21:10 Dose: 150 mg Tacrolimus (Prograf) 1 mg PO DAILY [facility] Last Admin: 09/08/18 09:20 Dose: 1 mg Tacrolimus (Prograf) 0.5 mg PO [facility] Last Admin: 09/08/18 21:15 Dose: 0.5 mg Tamsulosin HCl (Flomax -) 0.4 mg PO [facility] Last Admin: 09/08/18 21:10 Dose: 0.4 mg - Objective Vital Signs: Vital Signs Temperature 98.4 F 09/08/18 22:00 Pulse Rate 59 L 09/08/18 22:00 Respiratory Rate 20 09/08/18 22:00 Blood Pressure 130/44 L 09/08/18 22:00 O2 Sat by Pulse Oximetry (%) 97 09/08/18 21:00 Constitutional: Yes: Well Nourished Eyes: Yes: EOM Intact HENT: Yes: Normocephalic Neck: Yes: Trachea Midline Cardiovascular: Yes: Regular Rate and Rhythm Respiratory: Yes: Rales, SOB, Tachypnea Gastrointestinal: Yes: Normal Bowel Sounds ...Rectal Exam: Yes: Deferred Genitourinary: Yes: WNL Musculoskeletal: Yes: WNL Edema: No Neurological: Yes: Alert, Oriented Labs: CBC, BMP 09/08/18 05:30 09/08/18 23:49 INR, PTT INR 1.01 (0.83-1.09) 09/04/18 16:15 Problem List - Problems (1) Acute metabolic encephalopathy Code(s): G93.41 - METABOLIC ENCEPHALOPATHY (2) Bacteremia Code(s): R78.81 - BACTEREMIA (3) Change in mental status Code(s): R41.82 - ALTERED MENTAL STATUS, UNSPECIFIED Qualifiers: Altered mental status type: delirium Qualified Code(s): R41.0 - Disorientation, unspecified (4) Hypoglycemia Code(s): E16.2 - HYPOGLYCEMIA, UNSPECIFIED (5) Kidney transplant recipient Code(s): Z94.0 - KIDNEY TRANSPLANT STATUS (6) CHUCK (acute kidney injury) Code(s): N17.9 - ACUTE KIDNEY FAILURE, UNSPECIFIED (7) Acute respiratory failure Code(s): J96.00 - ACUTE RESPIRATORY FAILURE, UNSP W HYPOXIA OR HYPERCAPNIA (8) Acute type 2 diabetes mellitus with manifestations Code(s): E11.8 - TYPE 2 DIABETES MELLITUS WITH UNSPECIFIED COMPLICATIONS Assessment/Plan Current Active Problems Acute metabolic encephalopathy (Acute) Adrenal insufficiency (Acute) Bacteremia (Acute) Change in mental status (Acute) Hypoglycemia (Acute) Kidney transplant recipient (Chronic) diabetes mellitus hyperglycemia from steroid support Abnormal Lab Results 09/08/18 09/08/18 09/08/18 05:30 05:30 17:25 RBC 3.74 L Hgb 10.5 L Hct 32.9 L RDW 16.3 H Neutrophils % 85.6 H Chloride 110 H Anion Gap 7 L BUN 41 H Creatinine 1.4 H Random Glucose 136 H 423 H* Calcium 8.0 L 09/08/18 09/08/18 21:40 23:49 RBC Hgb Hct RDW Neutrophils % Chloride Anion Gap BUN Creatinine Random Glucose 483 H* 403 H* Calcium Laboratory Results - last 24 hr 09/07/18 09/07/18 09/08/18 16:39 16:47 05:30 WBC RBC Hgb Hct MCV MCH MCHC RDW Plt Count MPV Absolute Neuts (auto) Neutrophils % Lymphocytes % Monocytes % Eosinophils % Basophils % Nucleated RBC % Sodium Potassium Chloride Carbon Dioxide Anion Gap BUN Creatinine Creat Clearance w eGFR POC Glucometer > 400 > 400 Random Glucose Calcium Phosphorus Magnesium Random Vancomycin 23.5 09/08/18 09/08/18 09/08/18 05:30 05:30 05:45 WBC 7.9 RBC 3.74 L Hgb 10.5 L Hct 32.9 L MCV 87.8 MCH 28.2 MCHC 32.1 RDW 16.3 H Plt Count 137 MPV 8.2 Absolute Neuts (auto) 6.8 Neutrophils % 85.6 H Lymphocytes % 8.3 D Monocytes % 6.0 Eosinophils % 0.1 Basophils % 0.0 Nucleated RBC % 0 Sodium 141 Potassium 3.7 Chloride 110 H Carbon Dioxide 24 Anion Gap 7 L BUN 41 H Creatinine 1.4 H Creat Clearance w eGFR 49.27 POC Glucometer 157.42893 Random Glucose 136 H Calcium 8.0 L Phosphorus 3.8 Magnesium 2.2 Random Vancomycin 09/08/18 09/08/18 09/08/18 12:26 17:25 21:40 WBC RBC Hgb Hct MCV MCH MCHC RDW Plt Count MPV Absolute Neuts (auto) Neutrophils % Lymphocytes % Monocytes % Eosinophils % Basophils % Nucleated RBC % Sodium Potassium Chloride Carbon Dioxide Anion Gap BUN Creatinine Creat Clearance w eGFR POC Glucometer 332.49378 Random Glucose 423 H* 483 H* Calcium Phosphorus Magnesium Random Vancomycin 09/08/18 23:49 WBC RBC Hgb Hct MCV MCH MCHC RDW Plt Count MPV Absolute Neuts (auto) Neutrophils % Lymphocytes % Monocytes % Eosinophils % Basophils % Nucleated RBC % Sodium Potassium Chloride Carbon Dioxide Anion Gap BUN Creatinine Creat Clearance w eGFR POC Glucometer Random Glucose 403 H* Calcium Phosphorus Magnesium Random Vancomycin plan: bgm qid novolog insulin doses for steroid support levemir 25 units am
[2018-09-09 06:19] LABS: BASO % 0.1 % (0-2.0); EOS % 0.2 % (0-4.5); HEMATOCRIT 32.6 % (35.4-49); HEMOGLOBIN 10.4 GM/dL (11.7-16.9); LYMPH % 11.2 % (8-40); MCHC 31.9 g/dl (32.0-35.9); MEAN CELL VOLUME 87.8 fl (80-96); MEAN PLT VOLUME 8.1 fl (7.5-11.1); MONO % 9.7 % (3.8-10.2); NEUT % 78.8 % (42.8-82.8); PLATELET COUNT 141 K/MM3 (134-434); RBC 3.71 M/mm3 (4.00-5.60); RDW 16.1 % (11.9-15.9)
[2018-09-09] MEDS: INSULIN SLIDING SCALE (NOVOLOG) 1 VIAL SQ SCH ×4 (06:37→21:54)
[2018-09-09] MEDS ORDERED: INSULIN (LEVEMIR) 100 UNITS/ML UNITS SQ SCH ×3 (07:00)
[2018-09-09 07:12] LABS: ALBUMIN 2.5 g/dl (3.4-5.0); ALK PHOS 57 U/L (45-117); ANION GAP 3 MMOL/L (8-16); BILIRUBIN,TOTAL 0.4 mg/dL (0.2-1); BLOOD UREA NITROGEN 36 mg/dL (7-18); CALCIUM 8.3 mg/dL (8.5-10.1); CHLORIDE 114 mmol/L (98-107); CO2 25 mmol/L (21-32); CREATININE 1.2 mg/dL (0.55-1.3); GLUCOSE,RANDOM 64 mg/dL (74-106); MAGNESIUM 2.1 mg/dL (1.8-2.4); PHOSPHOROUS 2.6 mg/dL (2.5-4.9); POTASSIUM 3.8 mmol/L (3.5-5.1); SGOT/AST 15 U/L (15-37); SGPT/ALT 34 U/L (13-61); SODIUM 142 mmol/L (136-145); TOT PROT 4.7 g/dl (6.4-8.2)
[2018-09-09] MEDS: ALBUTEROL SO4 2.5/IPRATROPIUM 0.5 INH SOL 3 ML VIAL.NEB. NEB SCH ×4 (09:00→20:10)
--- NOTE | 2018-09-09 09:31 | PN ---
Progress Note (short form) - Note Progress Note: PULM/CCM Pt Seen & examined in the ICU. CA+OX3, NAD, No ETT, No pressors, doing well awaiting bed on floor. Active Medications Acetaminophen (Tylenol -) 650 mg PO Q4H PRN PRN Reason: FEVER Albuterol/Ipratropium (Duoneb -) 1 amp NEB RQID [facility] Last Admin: 09/09/18 16:35 Dose: 1 amp Apixaban (Eliquis -) 5 mg PO BID [facility] Last Admin: 09/09/18 09:53 Dose: 5 mg Aspirin (Asa -) 81 mg PO [facility] Last Admin: 09/08/18 21:10 Dose: 81 mg Atorvastatin Calcium (Lipitor -) 80 mg PO [facility] Last Admin: 09/08/18 21:10 Dose: 80 mg Chlorhexidine Gluconate (Hibiclens For Decolonization -) 1 applic TP [facility] Last Admin: 09/08/18 21:11 Dose: 1 applic Duloxetine HCl (Cymbalta -) 20 mg PO BID [facility] Last Admin: 09/09/18 09:53 Dose: 20 mg Hydrocortisone Sodium Succinate (Solu-Cortef -) 50 mg IVPB BID [facility] Last Admin: 09/09/18 09:53 Dose: 50 mg Vancomycin HCl (Vancomycin (Pre-Docked)) 1,000 mg in 250 mls @ 166.667 mls/hr IVPB DAILY@1400 [facility]; Protocol Last Admin: 09/09/18 14:34 Dose: 166.667 mls/hr Insulin Aspart (Novolog Vial Sliding Scale -) 1 vial SQ [facility]; Protocol Insulin Detemir (Levemir Vial) 30 units SQ [facility] Mupirocin (Bactroban Ointment (For Decolonization) -) 1 applic NS BID [facility] Stop: 09/10/18 00:44 Last Admin: 09/09/18 14:34 Dose: 1 applic Mycophenolate Sodium (Mycophenolic Acid) 360 mg PO BID [facility] Last Admin: 09/09/18 09:53 Dose: 360 mg Ranitidine HCl (Zantac Oral Solution -) 150 mg GT BID [facility] Last Admin: 09/09/18 09:54 Dose: 150 mg Tacrolimus (Prograf) 1 mg PO DAILY [facility] Last Admin: 09/09/18 09:53 Dose: 1 mg Tacrolimus (Prograf) 0.5 mg PO HS [facility] Last Admin: 09/08/18 21:15 Dose: 0.5 mg Tamsulosin HCl (Flomax -) 0.4 mg PO [facility] Last Admin: 09/08/18 21:10 Dose: 0.4 mg Vital Signs Period Temp Pulse Resp BP Sys/Mendoza Pulse Ox Last 24 Hr 97.1 F-98.4 F 59-83 15-20 130-143/40-64 97-98 Intake & Output 09/06/18 09/07/18 09/08/18 09/09/18 23:59 23:59 23:59 23:59 Intake Total 1854 560 660 540 Output Total 2850 1100 1600 900 Balance -996 -540 -940 -360 Weight 78.925 kg 77.337 kg Gen: NAD at rest Heart: RRR Lung: decreased breath sounds at the bases Abd: soft, nontender Ext: no edema CBC, BMP 09/09/18 05:30 09/09/18 18:01 Laboratory Results - last 24 hr 09/08/18 09/08/18 09/09/18 21:40 23:49 05:30 WBC RBC Hgb Hct MCV MCH MCHC RDW Plt Count MPV Absolute Neuts (auto) Neutrophils % Lymphocytes % Monocytes % Eosinophils % Basophils % Nucleated RBC % Sodium Potassium Chloride Carbon Dioxide Anion Gap BUN Creatinine Creat Clearance w eGFR POC Glucometer Random Glucose 483 H* 403 H* Calcium Phosphorus Magnesium Total Bilirubin AST ALT Alkaline Phosphatase Total Protein Albumin Random Vancomycin 16.0 L 09/09/18 09/09/18 09/09/18 05:30 05:30 05:39 WBC 7.0 RBC 3.71 L Hgb 10.4 L Hct 32.6 L MCV 87.8 MCH 28.0 MCHC 31.9 L RDW 16.1 H Plt Count 141 MPV 8.1 Absolute Neuts (auto) 5.5 Neutrophils % 78.8 Lymphocytes % 11.2 D Monocytes % 9.7 Eosinophils % 0.2 D Basophils % 0.1 D Nucleated RBC % 0 Sodium 142 Potassium 3.8 Chloride 114 H Carbon Dioxide 25 Anion Gap 3 L BUN 36 H Creatinine 1.2 Creat Clearance w eGFR 58.86 POC Glucometer 81.48643 Random Glucose 64 L Calcium 8.3 L Phosphorus 2.6 Magnesium 2.1 Total Bilirubin 0.4 AST 15 ALT 34 Alkaline Phosphatase 57 Total Protein 4.7 L Albumin 2.5 L Random Vancomycin 09/09/18 09/09/18 10:46 18:01 WBC RBC Hgb Hct MCV MCH MCHC RDW Plt Count MPV Absolute Neuts (auto) Neutrophils % Lymphocytes % Monocytes % Eosinophils % Basophils % Nucleated RBC % Sodium Potassium Chloride Carbon Dioxide Anion Gap BUN Creatinine Creat Clearance w eGFR POC Glucometer [phone] Random Glucose 483 H* Calcium Phosphorus Magnesium Total Bilirubin AST ALT Alkaline Phosphatase Total Protein Albumin Random Vancomycin Microbiology 09/07/18 09:00 Sputum - Expectorated Gram Stain - Final 09/07/18 09:00 Sputum - Expectorated Sputum Culture - Final S Aureus 09/06/18 09:00 Blood - Peripheral Venous Blood Culture - Preliminary NO GROWTH OBTAINED AFTER 72 HOURS, INCUBATION TO CONTINUE FOR 2 DAYS. 09/06/18 09:00 Blood - Peripheral Venous Blood Culture - Preliminary NO GROWTH OBTAINED AFTER 72 HOURS, INCUBATION TO CONTINUE FOR 2 DAYS. 09/04/18 16:15 Blood - Peripheral Venous Blood Culture - Final Staph Hominis Sub Sp Hominis 09/04/18 16:40 Blood - Peripheral Venous Blood Culture - Final S Aureus 09/05/18 18:30 Urine For Antigen Detection Legionella Antigen - Final 09/05/18 18:30 Urine For Antigen Detection Streptococcus pneumoniae Antigen (M - Final 09/06/18 06:00 Urine For Antigen Detection Legionella Antigen - Final 09/06/18 06:00 Urine For Antigen Detection Streptococcus pneumoniae Antigen (M - Final 09/04/18 18:32 Urine - Urine - Catheterized Urine Culture - Final NO GROWTH OBTAINED CXR 09/07: Since 09/06/2018, again noted is the prominent mediastinum with sternal sutures, clips and congestive changes. There is a metallic density projected over the left heart. Correlation recommended ASSESS: Acute Hypoxic Respiratory failure MRSA Bacteremia Finger Abscess r/o Pneumonia Septic Shock Lactic Acidosis Acute Kidney Injury s/p Renal Transplant on immunosuppressants Hypoglycemia LV Diastolic Dysfunction HTN Hyperlipidemia h/o DVT PLAN: - FiO2 to keep SpO2 >90% - continue antibiotics - Cont IS - IVF - monitor urine output, creatinine - Taper stress dose steroids - Eliquis - Aspiration precautions - 4W / 4S monitoring DGL, ACNP-[facility] PULM/[facility] 4436 Critical Care Total Critical Care Time (in minutes): 39 Critical Care Statement: The care of this patient involved high complexity decision making to prevent further life threatening deterioration of the patient 's condition and/or to evaluate & treat vital organ system(s) failure or risk of failure.
[2018-09-09] MEDS ORDERED: PT OWN MED DRAWER 7, Y5N ONE ×5 (09:46→21:36)
[2018-09-09] MEDS: MYCOPHENOLATE SODIUM 360 MG TABLET.DR PO SCH ×2 (09:53→21:41)
[2018-09-09] MEDS: TACROLIMUS ANHYDROUS 1 MG CAPSULE PO SCH (09:53)
[2018-09-09] MEDS: DULoxetine HCL 20 MG CAPSULE.DR (FP) PO SCH ×2 (09:53→22:50)
[2018-09-09] MEDS: APIXABAN 5 MG TABLET PO SCH ×2 (09:53→21:41)
[2018-09-09] MEDS: HYDROCORTISONE SOD SUCCINATE 100 MG/2 ML VIAL IVPB SCH ×2 (09:53→21:41)
[2018-09-09] MEDS: RANITIDINE HCL 150 MG/10 ML UNIT-DOSE GT SCH ×2 (09:54→21:41)
--- NOTE | 2018-09-09 12:35 | PN ---
Progress Note, Physician Chief Complaint: AWAKE MORE ALERT ATE ALL OF HIS MEALS TODAY DENIES CHEST PAIN OR SOB - Current Medication List Current Medications: Active Medications Acetaminophen (Tylenol -) 650 mg PO Q4H PRN PRN Reason: FEVER Albuterol/Ipratropium (Duoneb -) 1 amp NEB RQID [facility] Last Admin: 09/09/18 11:37 Dose: 1 amp Apixaban (Eliquis -) 5 mg PO BID [facility] Last Admin: 09/09/18 09:53 Dose: 5 mg Aspirin (Asa -) 81 mg PO [facility] Last Admin: 09/08/18 21:10 Dose: 81 mg Atorvastatin Calcium (Lipitor -) 80 mg PO [facility] Last Admin: 09/08/18 21:10 Dose: 80 mg Chlorhexidine Gluconate (Hibiclens For Decolonization -) 1 applic TP [facility] Last Admin: 09/08/18 21:11 Dose: 1 applic Duloxetine HCl (Cymbalta -) 20 mg PO BID [facility] Last Admin: 09/09/18 09:53 Dose: 20 mg Hydrocortisone Sodium Succinate (Solu-Cortef -) 50 mg IVPB BID [facility] Last Admin: 09/09/18 09:53 Dose: 50 mg Insulin Aspart (Novolog Vial Sliding Scale -) 1 vial SQ [facility]; Protocol Last Admin: 09/09/18 10:51 Dose: 8 units Insulin Detemir (Levemir Vial) 22 units SQ DAILY@0700 [facility] Last Admin: 09/09/18 07:00 Dose: Not Given Mupirocin (Bactroban Ointment (For Decolonization) -) 1 applic NS BID [facility] Stop: 09/10/18 00:44 Last Admin: 09/08/18 21:12 Dose: 1 applic Mycophenolate Sodium (Mycophenolic Acid) 360 mg PO BID [facility] Last Admin: 09/09/18 09:53 Dose: 360 mg Ranitidine HCl (Zantac Oral Solution -) 150 mg GT BID [facility] Last Admin: 09/09/18 09:54 Dose: 150 mg Tacrolimus (Prograf) 1 mg PO DAILY [facility] Last Admin: 09/09/18 09:53 Dose: 1 mg Tacrolimus (Prograf) 0.5 mg PO [facility] Last Admin: 09/08/18 21:15 Dose: 0.5 mg Tamsulosin HCl (Flomax -) 0.4 mg PO [facility] Last Admin: 09/08/18 21:10 Dose: 0.4 mg - Objective Vital Signs: Vital Signs Temperature 97.5 F L 09/09/18 12:00 Pulse Rate 60 09/09/18 12:00 Respiratory Rate 15 09/09/18 12:00 Blood Pressure 143/42 L 09/09/18 12:00 O2 Sat by Pulse Oximetry (%) 98 09/09/18 08:00 Constitutional: Yes: No Distress Eyes: Yes: WNL HENT: Yes: WNL Neck: Yes: WNL Cardiovascular: Yes: WNL Respiratory: Yes: WNL, On Nasal O2 Gastrointestinal: Yes: WNL, Soft Genitourinary: Yes: Incontinence Musculoskeletal: Yes: Muscle Weakness Extremities: Yes: WNL Edema: Yes Edema: LLE: Trace, RLE: Trace Integumentary: Yes: WNL Wound/Incision: Yes: Clean/Dry Neurological: Yes: Confusion ...Motor Strength: LLE, RLE Psychiatric: Yes: Other Labs: CBC, BMP 09/09/18 05:30 09/09/18 05:30 INR, PTT INR 1.01 (0.83-1.09) 09/04/18 16:15 Problem List - Problems (1) Acute metabolic encephalopathy Code(s): G93.41 - METABOLIC ENCEPHALOPATHY (2) Adrenal insufficiency Code(s): E27.40 - UNSPECIFIED ADRENOCORTICAL INSUFFICIENCY (3) Bacteremia Code(s): R78.81 - BACTEREMIA (4) Change in mental status Code(s): R41.82 - ALTERED MENTAL STATUS, UNSPECIFIED Qualifiers: Altered mental status type: delirium Qualified Code(s): R41.0 - Disorientation, unspecified (5) Hypoglycemia Code(s): E16.2 - HYPOGLYCEMIA, UNSPECIFIED (6) Kidney transplant recipient Code(s): Z94.0 - KIDNEY TRANSPLANT STATUS (7) CHUCK (acute kidney injury) Code(s): N17.9 - ACUTE KIDNEY FAILURE, UNSPECIFIED (8) Acute respiratory failure Code(s): J96.00 - ACUTE RESPIRATORY FAILURE, UNSP W HYPOXIA OR HYPERCAPNIA (9) DM2 (diabetes mellitus, type 2) Code(s): E11.9 - TYPE 2 DIABETES MELLITUS WITHOUT COMPLICATIONS Qualifiers: Diabetes mellitus half-way insulin use: with braze operator use Assessment/Plan IV ABX PER ID, ON VANCOMYCIN RESP SUPPORT PROGRAF FOR RENAL TRANSPLANT PT EVAL SWALLOW EVAL TOLERATING MEALS 02 SUPPORT OOB TO CHAIR DVT PROPHYLAXIS NEURO EVAL FOR AMS ENDOCRINE WORKUP FOR ADRENAL INSUFF. ON CORTISOL
--- NOTE | 2018-09-09 13:27 | PN ---
Progress Note (short form) - Note Progress Note: doing well alert feels well no complaints Vital Signs Period Temp Pulse Resp BP Sys/Mendoza Pulse Ox Last 24 Hr 97.1 F-98.4 F 59-73 15-20 115-143/40-64 97-98 cor-rrr lulngs few crackles at bases abd soft,nt ext no edema CBC, BMP 09/09/18 05:30 09/09/18 05:30 vanco trough 16 Microbiology 09/07/18 09:00 Sputum - Expectorated Gram Stain - Final 09/07/18 09:00 Sputum - Expectorated Sputum Culture - Final S Aureus 09/06/18 09:00 Blood - Peripheral Venous Blood Culture - Preliminary NO GROWTH OBTAINED AFTER 72 HOURS, INCUBATION TO CONTINUE FOR 2 DAYS. 09/06/18 09:00 Blood - Peripheral Venous Blood Culture - Preliminary NO GROWTH OBTAINED AFTER 72 HOURS, INCUBATION TO CONTINUE FOR 2 DAYS. 09/04/18 16:15 Blood - Peripheral Venous Blood Culture - Final Staph Hominis Sub Sp Hominis 09/04/18 16:40 Blood - Peripheral Venous Blood Culture - Final S Aureus 09/05/18 18:30 Urine For Antigen Detection Legionella Antigen - Final 09/05/18 18:30 Urine For Antigen Detection Streptococcus pneumoniae Antigen (M - Final 09/06/18 06:00 Urine For Antigen Detection Legionella Antigen - Final 09/06/18 06:00 Urine For Antigen Detection Streptococcus pneumoniae Antigen (M - Final 09/04/18 18:32 Urine - Urine - Catheterized Urine Culture - Final NO GROWTH OBTAINED Current Medications Acetaminophen (Tylenol -) 650 mg PO Q4H PRN PRN Reason: FEVER Albuterol/Ipratropium (Duoneb -) 1 amp NEB RQID [facility] Last Admin: 09/09/18 11:37 Dose: 1 amp Apixaban (Eliquis -) 5 mg PO BID [facility] Last Admin: 09/09/18 09:53 Dose: 5 mg Aspirin (Asa -) 81 mg PO [facility] Last Admin: 09/08/18 21:10 Dose: 81 mg Atorvastatin Calcium (Lipitor -) 80 mg PO [facility] Last Admin: 09/08/18 21:10 Dose: 80 mg Chlorhexidine Gluconate (Hibiclens For Decolonization -) 1 applic TP [facility] Last Admin: 09/08/18 21:11 Dose: 1 applic Duloxetine HCl (Cymbalta -) 20 mg PO BID [facility] Last Admin: 09/09/18 09:53 Dose: 20 mg Hydrocortisone Sodium Succinate (Solu-Cortef -) 50 mg IVPB BID [facility] Last Admin: 09/09/18 09:53 Dose: 50 mg Vancomycin HCl 1,000 mg/ (Dextrose) 250 mls @ 200 mls/hr IVPB Q24H [facility]; Protocol Insulin Aspart (Novolog Vial Sliding Scale -) 1 vial SQ ACHS [facility]; Protocol Last Admin: 09/09/18 10:51 Dose: 8 units Insulin Detemir (Levemir Vial) 22 units SQ DAILY@0700 [facility] Last Admin: 09/09/18 07:00 Dose: Not Given Mupirocin (Bactroban Ointment (For Decolonization) -) 1 applic NS BID [facility] Stop: 09/10/18 00:44 Last Admin: 09/08/18 21:12 Dose: 1 applic Mycophenolate Sodium (Mycophenolic Acid) 360 mg PO BID [facility] Last Admin: 09/09/18 09:53 Dose: 360 mg Ranitidine HCl (Zantac Oral Solution -) 150 mg GT BID [facility] Last Admin: 09/09/18 09:54 Dose: 150 mg Tacrolimus (Prograf) 1 mg PO DAILY [facility] Last Admin: 09/09/18 09:53 Dose: 1 mg Tacrolimus (Prograf) 0.5 mg PO [facility] Last Admin: 09/08/18 21:15 Dose: 0.5 mg Tamsulosin HCl (Flomax -) 0.4 mg PO [facility] Last Admin: 09/08/18 21:10 Dose: 0.4 mg cxray cardiomegaly, congestion a/p sepsis-MRSA bacteremia-?finger ulcer resume vancomycin 1 gram daily will require [facility] iv antibiotics-plan 4 weeks clinically do not think he has pneumonia- rapid respiratory improvement s/p renal transplant renal function improved poorly controlled DM Problem List - Problems (1) Sepsis Code(s): A41.9 - SEPSIS, UNSPECIFIED ORGANISM (2) Acute respiratory failure Code(s): J96.00 - ACUTE RESPIRATORY FAILURE, UNSP W HYPOXIA OR HYPERCAPNIA (3) PNA (pneumonia) Code(s): J18.9 - PNEUMONIA, UNSPECIFIED ORGANISM Qualifiers: Pneumonia type: due to unspecified organism Laterality: unspecified laterality Lung location: unspecified part of lung Qualified Code(s): J18.9 - Pneumonia, unspecified organism (4) Bacteremia Code(s): R78.81 - BACTEREMIA (5) History of MRSA infection Code(s): Z86.14 - PERSONAL HISTORY OF METHICILLIN RESIS STAPH INFECTION (6) H/O kidney transplant Code(s): Z94.0 - KIDNEY TRANSPLANT STATUS (7) DM2 (diabetes mellitus, type 2) Code(s): E11.9 - TYPE 2 DIABETES MELLITUS WITHOUT COMPLICATIONS Qualifiers: Diabetes mellitus longwall foreman insulin use: with longwall foreman use
[2018-09-09] MEDS: MUPIROCIN 2% TOPICAL OINTMENT FOR DECOLONIZATION NS SCH ×2 (14:34→21:42)
[2018-09-09] MEDS: VANCOMYCIN 1 GRAM (PRE-DOCKED) 1,000 MG/250 ML BAG IVPB SCH (14:34)
--- NOTE | 2018-09-09 15:00 | PN ---
Progress Note (short form) - Note Progress Note: covering dr taylor chart reviewed renal function improved after decline sepsis/mrsa/bacteremia on vanco adrenal insufficiency Current Medications Acetaminophen (Tylenol -) 650 mg PO Q4H PRN PRN Reason: FEVER Albuterol/Ipratropium (Duoneb -) 1 amp NEB RQID [facility] Last Admin: 09/09/18 11:37 Dose: 1 amp Apixaban (Eliquis -) 5 mg PO BID [facility] Last Admin: 09/09/18 09:53 Dose: 5 mg Aspirin (Asa -) 81 mg PO [facility] Last Admin: 09/08/18 21:10 Dose: 81 mg Atorvastatin Calcium (Lipitor -) 80 mg PO [facility] Last Admin: 09/08/18 21:10 Dose: 80 mg Chlorhexidine Gluconate (Hibiclens For Decolonization -) 1 applic TP [facility] Last Admin: 09/08/18 21:11 Dose: 1 applic Duloxetine HCl (Cymbalta -) 20 mg PO BID [facility] Last Admin: 09/09/18 09:53 Dose: 20 mg Hydrocortisone Sodium Succinate (Solu-Cortef -) 50 mg IVPB BID [facility] Last Admin: 09/09/18 09:53 Dose: 50 mg Vancomycin HCl (Vancomycin (Pre-Docked)) 1,000 mg in 250 mls @ 166.667 mls/hr IVPB DAILY@1400 [facility]; Protocol Last Admin: 09/09/18 14:34 Dose: 166.667 mls/hr Insulin Aspart (Novolog Vial Sliding Scale -) 1 vial SQ ACHS [facility]; Protocol Last Admin: 09/09/18 10:51 Dose: 8 units Insulin Detemir (Levemir Vial) 22 units SQ DAILY@0700 [facility] Last Admin: 09/09/18 07:00 Dose: Not Given Mupirocin (Bactroban Ointment (For Decolonization) -) 1 applic NS BID [facility] Stop: 09/10/18 00:44 Last Admin: 09/09/18 14:34 Dose: 1 applic Mycophenolate Sodium (Mycophenolic Acid) 360 mg PO BID [facility] Last Admin: 09/09/18 09:53 Dose: 360 mg Ranitidine HCl (Zantac Oral Solution -) 150 mg GT BID [facility] Last Admin: 09/09/18 09:54 Dose: 150 mg Tacrolimus (Prograf) 1 mg PO DAILY [facility] Last Admin: 09/09/18 09:53 Dose: 1 mg Tacrolimus (Prograf) 0.5 mg PO HS [facility] Last Admin: 09/08/18 21:15 Dose: 0.5 mg Tamsulosin HCl (Flomax -) 0.4 mg PO HS [facility] Last Admin: 09/08/18 21:10 Dose: 0.4 mg problems 1. CKD/kidney transplant 3. DM poorly controlled 4. hx of syncope 5. HTN 6. hyperlipidemia 7. CHF 8. acute resp failure s/p intubation 9. Hx DVT - pt has IVC filter Last Vital Signs Temp Pulse Resp BP Pulse Ox 97.9 F 60 15 134/49 L 98 09/09/18 14:00 09/09/18 14:00 09/09/18 14:00 09/09/18 14:00 09/09/18 08:00 CBC, BMP 09/09/18 05:30 09/09/18 05:30 IMP- sepsis s/p resp failure renal function is ok prograf level adjusted Plan -same IVF follow renal function here
[2018-09-09] MEDS ORDERED: INSULIN REGULAR 100 UNITS in SODIUM CHLORIDE 99 ML IVPB SCH (18:00)
[2018-09-09] MEDS ORDERED: INSULIN REGULAR HUMAN 100 UNITS/ML *VIAL ONE (18:49)
[2018-09-09 21:00] VITALS: BMI 24.3
[2018-09-09] MEDS: ASPIRIN 81 MG CHEWABLE TABLETS PO SCH (21:41)
[2018-09-09] MEDS: ATORVASTATIN CA 40 MG TABLET (FP) PO SCH (21:41)
[2018-09-09] MEDS: TAMSULOSIN HCL 0.4 MG CAP PO SCH (21:41)
[2018-09-09] MEDS: TACROLIMUS 0.5 MG CAPSULE PO SCH (21:42)
[2018-09-09] MEDS: CHLORHEXIDINE GLUCONATE 4% CLEANSER FOR DECOLONIZATION TP SCH (21:42)
[2018-09-09] MEDS: INSULIN (LEVEMIR) 100 UNITS/ML UNITS SQ SCH (21:54)
[2018-09-10] MEDS: INSULIN SLIDING SCALE (NOVOLOG) 1 VIAL SQ SCH ×4 (06:53→22:21)
--- NOTE | 2018-09-10 09:05 | PN ---
Progress Note (short form) - Note Progress Note: PULM/CCM PULM/CCM Pt Seen & examined in the ICU. CA+OX3, NAD, No ETT, No pressors, doing well awaiting bed on floor. Active Medications Acetaminophen (Tylenol -) 650 mg PO Q4H PRN PRN Reason: FEVER Apixaban (Eliquis -) 5 mg PO BID [facility] Last Admin: 09/10/18 09:10 Dose: 5 mg Aspirin (Asa -) 81 mg PO [facility] Last Admin: 09/09/18 21:41 Dose: 81 mg Atorvastatin Calcium (Lipitor -) 80 mg PO [facility] Last Admin: 09/09/18 21:41 Dose: 80 mg Chlorhexidine Gluconate (Hibiclens For Decolonization -) 1 applic TP [facility] Last Admin: 09/09/18 21:42 Dose: 1 applic Duloxetine HCl (Cymbalta -) 20 mg PO BID [facility] Last Admin: 09/10/18 09:10 Dose: 20 mg Hydrocortisone Sodium Succinate (Solu-Cortef -) 50 mg IVPB BID [facility] Last Admin: 09/10/18 09:11 Dose: 50 mg Vancomycin HCl (Vancomycin (Pre-Docked)) 1,000 mg in 250 mls @ 166.667 mls/hr IVPB DAILY@1400 [facility]; Protocol Last Admin: 09/09/18 14:34 Dose: 166.667 mls/hr Insulin Aspart (Novolog Vial Sliding Scale -) 1 vial SQ [facility]; Protocol Last Admin: 09/10/18 12:11 Dose: 10 units Insulin Detemir (Levemir Vial) 30 units SQ [facility] Last Admin: 09/09/18 21:54 Dose: 30 units Mycophenolate Sodium (Mycophenolic Acid) 360 mg PO BID [facility] Last Admin: 09/10/18 09:10 Dose: 360 mg Ranitidine HCl (Zantac Oral Solution -) 150 mg GT BID [facility] Last Admin: 09/10/18 09:18 Dose: 150 mg Tacrolimus (Prograf) 1 mg PO DAILY [facility] Last Admin: 09/10/18 09:10 Dose: 1 mg Tacrolimus (Prograf) 0.5 mg PO [facility] Last Admin: 09/09/18 21:42 Dose: 0.5 mg Tamsulosin HCl (Flomax -) 0.4 mg PO [facility] Last Admin: 09/09/18 21:41 Dose: 0.4 mg Vital Signs Period Temp Pulse Resp BP Sys/Mendoza Pulse Ox Last 24 Hr 98.0 F-98.7 F 59-91 15-85 115-157/44-57 94-96 Intake & Output 09/07/18 09/08/18 09/09/18 09/10/18 23:59 23:59 23:59 23:59 Intake Total 560 660 840 200 Output Total 1100 1600 1800 1400 Balance -540 -940 -960 -1200 Weight 77.337 kg Gen: NAD at rest Heart: RRR Lung: decreased breath sounds at the bases Abd: soft, nontender Ext: no edema CBC, BMP 09/09/18 05:30 Microbiology 09/06/18 09:00 Blood - Peripheral Venous Blood Culture - Preliminary NO GROWTH OBTAINED AFTER 96 HOURS, INCUBATION TO CONTINUE FOR 1 DAYS. 09/06/18 09:00 Blood - Peripheral Venous Blood Culture - Preliminary NO GROWTH OBTAINED AFTER 96 HOURS, INCUBATION TO CONTINUE FOR 1 DAYS. 09/07/18 09:00 Sputum - Expectorated Gram Stain - Final 09/07/18 09:00 Sputum - Expectorated Sputum Culture - Final Mr S Aureus 09/04/18 16:15 Blood - Peripheral Venous Blood Culture - Final Staph Hominis Sub Sp Hominis 09/04/18 16:40 Blood - Peripheral Venous Blood Culture - Final Mr S Aureus 09/05/18 18:30 Urine For Antigen Detection Legionella Antigen - Final 09/05/18 18:30 Urine For Antigen Detection Streptococcus pneumoniae Antigen (M - Final 09/06/18 06:00 Urine For Antigen Detection Legionella Antigen - Final 09/06/18 06:00 Urine For Antigen Detection Streptococcus pneumoniae Antigen (M - Final 09/04/18 18:32 Urine - Urine - Catheterized Urine Culture - Final NO GROWTH OBTAINED CXR 09/07: Since 09/06/2018, again noted is the prominent mediastinum with sternal sutures, clips and congestive changes. There is a metallic density projected over the left heart. Correlation recommended ASSESS: S/p Acute Hypoxic Respiratory failure MRSA Bacteremia Finger Abscess r/o Pneumonia Septic Shock Lactic Acidosis Acute Kidney Injury s/p Renal Transplant on immunosuppressants Hypoglycemia LV Diastolic Dysfunction HTN Hyperlipidemia h/o DVT PLAN: - FiO2 to keep SpO2 >90% - continue antibiotics - Cont IS - IVF - monitor urine output, creatinine - Taper stress dose steroids - Eliquis - Aspiration precautions - 4W / 4S monitoring DGL, ACNP-[facility] ICU PULM/CCM [id number] Critical Care Total Critical Care Time (in minutes): 38 Critical Care Statement: The care of this patient involved high complexity decision making to prevent further life threatening deterioration of the patient 's condition and/or to evaluate & treat vital organ system(s) failure or risk of failure.
[2018-09-10] MEDS ORDERED: PT OWN MED DRAWER 7, Y5N ONE (09:06)
[2018-09-10] MEDS: DULoxetine HCL 20 MG CAPSULE.DR (FP) PO SCH ×2 (09:10→22:06)
[2018-09-10] MEDS: MYCOPHENOLATE SODIUM 360 MG TABLET.DR PO SCH ×2 (09:10→22:08)
[2018-09-10] MEDS: TACROLIMUS ANHYDROUS 1 MG CAPSULE PO SCH (09:10)
[2018-09-10] MEDS: APIXABAN 5 MG TABLET PO SCH ×2 (09:10→22:06)
[2018-09-10] MEDS: HYDROCORTISONE SOD SUCCINATE 100 MG/2 ML VIAL IVPB SCH ×2 (09:11→22:06)
[2018-09-10] MEDS: RANITIDINE HCL 150 MG/10 ML UNIT-DOSE GT SCH ×2 (09:18→22:06)
--- NOTE | 2018-09-10 12:56 | PN ---
Progress Note (short form) - Note Progress Note: doing well alert feels well no complaints Vital Signs Period Temp Pulse Resp BP Sys/Mendoza Pulse Ox Last 24 Hr 97.9 F-98.7 F 59-91 15-85 134-157/44-57 94-96 cor-rrr ungs clear abd soft,nt ext dry eschar right hand fourth finger CBC, BMP 09/09/18 05:30 09/09/18 18:01 Microbiology 09/06/18 09:00 Blood - Peripheral Venous Blood Culture - Preliminary NO GROWTH OBTAINED AFTER 96 HOURS, INCUBATION TO CONTINUE FOR 1 DAYS. 09/06/18 09:00 Blood - Peripheral Venous Blood Culture - Preliminary NO GROWTH OBTAINED AFTER 96 HOURS, INCUBATION TO CONTINUE FOR 1 DAYS. 09/07/18 09:00 Sputum - Expectorated Gram Stain - Final 09/07/18 09:00 Sputum - Expectorated Sputum Culture - Final S Aureus 09/04/18 16:15 Blood - Peripheral Venous Blood Culture - Final Staph Hominis Sub Sp Hominis 09/04/18 16:40 Blood - Peripheral Venous Blood Culture - Final S Aureus 09/05/18 18:30 Urine For Antigen Detection Legionella Antigen - Final 09/05/18 18:30 Urine For Antigen Detection Streptococcus pneumoniae Antigen (M - Final 09/06/18 06:00 Urine For Antigen Detection Legionella Antigen - Final 09/06/18 06:00 Urine For Antigen Detection Streptococcus pneumoniae Antigen (M - Final 09/04/18 18:32 Urine - Urine - Catheterized Urine Culture - Final NO GROWTH OBTAINED Current Medications Acetaminophen (Tylenol -) 650 mg PO Q4H PRN PRN Reason: FEVER Apixaban (Eliquis -) 5 mg PO BID [facility] Last Admin: 09/10/18 09:10 Dose: 5 mg Aspirin (Asa -) 81 mg PO [facility] Last Admin: 09/09/18 21:41 Dose: 81 mg Atorvastatin Calcium (Lipitor -) 80 mg PO [facility] Last Admin: 09/09/18 21:41 Dose: 80 mg Chlorhexidine Gluconate (Hibiclens For Decolonization -) 1 applic TP [facility] Last Admin: 09/09/18 21:42 Dose: 1 applic Duloxetine HCl (Cymbalta -) 20 mg PO BID [facility] Last Admin: 09/10/18 09:10 Dose: 20 mg Hydrocortisone Sodium Succinate (Solu-Cortef -) 50 mg IVPB BID [facility] Last Admin: 09/10/18 09:11 Dose: 50 mg Vancomycin HCl (Vancomycin (Pre-Docked)) 1,000 mg in 250 mls @ 166.667 mls/hr IVPB DAILY@1400 [facility]; Protocol Last Admin: 09/09/18 14:34 Dose: 166.667 mls/hr Insulin Aspart (Novolog Vial Sliding Scale -) 1 vial SQ [facility]; Protocol Last Admin: 09/10/18 12:11 Dose: 10 units Insulin Detemir (Levemir Vial) 30 units SQ [facility] Last Admin: 09/09/18 21:54 Dose: 30 units Mycophenolate Sodium (Mycophenolic Acid) 360 mg PO BID [facility] Last Admin: 09/10/18 09:10 Dose: 360 mg Ranitidine HCl (Zantac Oral Solution -) 150 mg GT BID [facility] Last Admin: 09/10/18 09:18 Dose: 150 mg Tacrolimus (Prograf) 1 mg PO DAILY [facility] Last Admin: 09/10/18 09:10 Dose: 1 mg Tacrolimus (Prograf) 0.5 mg PO [facility] Last Admin: 09/09/18 21:42 Dose: 0.5 mg Tamsulosin HCl (Flomax -) 0.4 mg PO [facility] Last Admin: 09/09/18 21:41 Dose: 0.4 mg cxray cardiomegaly, congestion a/p sepsis-MRSA bacteremia-?finger ulcer resume vancomycin 1 gram daily will require alf iv antibiotics- will get mri of finger, if no osteo 4 weeks, if he has osteo then 6 weeks check vanco trough in am clinically do not think he has pneumonia- rapid respiratory improvement s/p renal transplant renal function improved poorly controlled DM Problem List - Problems (1) Sepsis Code(s): A41.9 - SEPSIS, UNSPECIFIED ORGANISM (2) Acute respiratory failure Code(s): J96.00 - ACUTE RESPIRATORY FAILURE, UNSP W HYPOXIA OR HYPERCAPNIA (3) PNA (pneumonia) Code(s): J18.9 - PNEUMONIA, UNSPECIFIED ORGANISM Qualifiers: Pneumonia type: due to unspecified organism Laterality: unspecified laterality Lung location: unspecified part of lung Qualified Code(s): J18.9 - Pneumonia, unspecified organism (4) Bacteremia Code(s): R78.81 - BACTEREMIA (5) History of MRSA infection Code(s): Z86.14 - PERSONAL HISTORY OF METHICILLIN RESIS STAPH INFECTION (6) H/O kidney transplant Code(s): Z94.0 - KIDNEY TRANSPLANT STATUS (7) DM2 (diabetes mellitus, type 2) Code(s): E11.9 - TYPE 2 DIABETES MELLITUS WITHOUT COMPLICATIONS Qualifiers: Diabetes mellitus mcc insulin use: with mcc use
[2018-09-10] MEDS: VANCOMYCIN 1 GRAM (PRE-DOCKED) 1,000 MG/250 ML BAG IVPB SCH (14:28)
--- NOTE | 2018-09-10 14:30 | PN ---
Progress Note, Physician Chief Complaint: AWAKE MUCH MORE ALERT EATING MEALS, PATIENT STATES HE IS HUNGRY - Current Medication List Current Medications: Active Medications Acetaminophen (Tylenol -) 650 mg PO Q4H PRN PRN Reason: FEVER Apixaban (Eliquis -) 5 mg PO BID [facility] Last Admin: 09/10/18 09:10 Dose: 5 mg Aspirin (Asa -) 81 mg PO [facility] Last Admin: 09/09/18 21:41 Dose: 81 mg Atorvastatin Calcium (Lipitor -) 80 mg PO [facility] Last Admin: 09/09/18 21:41 Dose: 80 mg Chlorhexidine Gluconate (Hibiclens For Decolonization -) 1 applic TP HS [facility] Last Admin: 09/09/18 21:42 Dose: 1 applic Duloxetine HCl (Cymbalta -) 20 mg PO BID [facility] Last Admin: 09/10/18 09:10 Dose: 20 mg Hydrocortisone Sodium Succinate (Solu-Cortef -) 50 mg IVPB BID [facility] Last Admin: 09/10/18 09:11 Dose: 50 mg Vancomycin HCl (Vancomycin (Pre-Docked)) 1,000 mg in 250 mls @ 166.667 mls/hr IVPB DAILY@1400 [facility]; Protocol Last Admin: 09/10/18 14:28 Dose: 166.667 mls/hr Insulin Aspart (Novolog Vial Sliding Scale -) 1 vial SQ [facility]; Protocol Last Admin: 09/10/18 12:11 Dose: 10 units Insulin Detemir (Levemir Vial) 30 units SQ [facility] Last Admin: 09/09/18 21:54 Dose: 30 units Mycophenolate Sodium (Mycophenolic Acid) 360 mg PO BID [facility] Last Admin: 09/10/18 09:10 Dose: 360 mg Ranitidine HCl (Zantac Oral Solution -) 150 mg GT BID [facility] Last Admin: 09/10/18 09:18 Dose: 150 mg Tacrolimus (Prograf) 1 mg PO DAILY [facility] Last Admin: 09/10/18 09:10 Dose: 1 mg Tacrolimus (Prograf) 0.5 mg PO [facility] Last Admin: 09/09/18 21:42 Dose: 0.5 mg Tamsulosin HCl (Flomax -) 0.4 mg PO [facility] Last Admin: 09/09/18 21:41 Dose: 0.4 mg - Objective Vital Signs: Vital Signs Temperature 98.6 F 09/10/18 14:00 Pulse Rate 77 09/10/18 14:00 Respiratory Rate 19 09/10/18 14:00 Blood Pressure 115/50 L 09/10/18 14:00 O2 Sat by Pulse Oximetry (%) 96 09/10/18 09:18 Constitutional: Yes: No Distress Eyes: Yes: WNL HENT: Yes: WNL Neck: Yes: WNL Cardiovascular: Yes: WNL Respiratory: Yes: On Nasal O2, Other Gastrointestinal: Yes: WNL, Soft Genitourinary: Yes: Incontinence Musculoskeletal: Yes: Muscle Weakness Extremities: Yes: Deformity Edema: Yes Integumentary: Yes: Venous Stasis Changes Wound/Incision: Yes: Dressing Dry and Intact Neurological: Yes: Pre-Existing Deficit ...Motor Strength: LLE, RLE Psychiatric: Yes: Other Labs: CBC, BMP 09/09/18 05:30 09/09/18 18:01 INR, PTT INR 1.01 (0.83-1.09) 09/04/18 16:15 Problem List - Problems (1) Acute metabolic encephalopathy Code(s): G93.41 - METABOLIC ENCEPHALOPATHY (2) Adrenal insufficiency Code(s): E27.40 - UNSPECIFIED ADRENOCORTICAL INSUFFICIENCY (3) Bacteremia Code(s): R78.81 - BACTEREMIA (4) Change in mental status Code(s): R41.82 - ALTERED MENTAL STATUS, UNSPECIFIED Qualifiers: Altered mental status type: delirium Qualified Code(s): R41.0 - Disorientation, unspecified (5) Hypoglycemia Code(s): E16.2 - HYPOGLYCEMIA, UNSPECIFIED (6) Kidney transplant recipient Code(s): Z94.0 - KIDNEY TRANSPLANT STATUS (7) CHUCK (acute kidney injury) Code(s): N17.9 - ACUTE KIDNEY FAILURE, UNSPECIFIED (8) Acute respiratory failure Code(s): J96.00 - ACUTE RESPIRATORY FAILURE, UNSP W HYPOXIA OR HYPERCAPNIA (9) DM2 (diabetes mellitus, type 2) Code(s): E11.9 - TYPE 2 DIABETES MELLITUS WITHOUT COMPLICATIONS Qualifiers: Diabetes mellitus assisted insulin use: with assisted use Assessment/Plan IV ABX PER ID, ON VANCOMYCIN RESP SUPPORT PROGRAF FOR RENAL TRANSPLANT PT EVAL SWALLOW EVAL TOLERATING MEALS 02 SUPPORT OOB TO CHAIR DVT PROPHYLAXIS NEURO EVAL FOR AMS ENDOCRINE WORKUP FOR ADRENAL INSUFF. ON CORTISOL SNF PLACEMENT
[2018-09-10] MEDS ORDERED: ACETAMINOPHEN 325 MG TABLET (FP) PO PRN (14:55)
--- NOTE | 2018-09-10 16:23 | PN ---
Progress Note (short form) - Note Progress Note: covering dr taylor chart reviewed renal function improved after decline sepsis/mrsa/bacteremia on vanco adrenal insufficiency problems 1. CKD/kidney transplant 3. DM poorly controlled 4. hx of syncope 5. HTN 6. hyperlipidemia 7. CHF 8. acute resp failure s/p intubation 9. Hx DVT - pt has IVC filter Current Medications Acetaminophen (Tylenol -) 650 mg PO Q4H PRN PRN Reason: FEVER Apixaban (Eliquis -) 5 mg PO BID [facility] Aspirin (Asa -) 81 mg PO HS [facility] Atorvastatin Calcium (Lipitor -) 80 mg PO HS [facility] Duloxetine HCl (Cymbalta -) 20 mg PO BID [facility] Hydrocortisone Sodium Succinate (Solu-Cortef -) 50 mg IVPB BID [facility] Last Admin: 09/10/18 09:11 Dose: 50 mg Vancomycin HCl (Vancomycin (Pre-Docked)) 1,000 mg in 250 mls @ 166.667 mls/hr IVPB DAILY@1400 [facility]; Protocol Last Admin: 09/10/18 14:28 Dose: 166.667 mls/hr Insulin Aspart (Novolog Vial Sliding Scale -) 1 vial SQ [facility]; Protocol Last Admin: 09/10/18 12:11 Dose: 10 units Insulin Detemir (Levemir Vial) 30 units SQ HS [facility] Last Admin: 09/09/18 21:54 Dose: 30 units Mycophenolate Sodium (Mycophenolic Acid) 360 mg PO BID [facility] Ranitidine HCl (Zantac Oral Solution -) 150 mg GT BID [facility] Tacrolimus (Prograf) 1 mg PO DAILY [facility] Last Admin: 09/10/18 09:10 Dose: 1 mg Tacrolimus (Prograf) 0.5 mg PO HS [facility] Last Admin: 09/09/18 21:42 Dose: 0.5 mg Tamsulosin HCl (Flomax -) 0.4 mg PO HS [facility] Last Admin: 09/09/18 21:41 Dose: 0.4 mg Last Vital Signs Temp Pulse Resp BP Pulse Ox 98.6 F 77 19 115/50 L 96 09/10/18 14:00 09/10/18 14:00 09/10/18 14:00 09/10/18 14:00 09/10/18 09:18 lungs clear heart reg abd soft ext no edema CBC, BMP 09/09/18 05:09/09/18 05:30 IMP- s/p sepsis s/p resp failure renal function is ok prograf level adjusted Plan -same IVF follow renal function here
[2018-09-10] MEDS ORDERED: ATORVASTATIN CA 80 MG TABLET (FP) PO SCH (22:00)
[2018-09-10] MEDS ORDERED: ASPIRIN 81 MG CHEWABLE TABLETS PO SCH (22:00)
[2018-09-10] MEDS: TAMSULOSIN HCL 0.4 MG CAP PO SCH (22:06)
[2018-09-10] MEDS: INSULIN (LEVEMIR) 100 UNITS/ML UNITS SQ SCH (22:22)
[2018-09-10] MEDS: TACROLIMUS 0.5 MG CAPSULE PO SCH (22:56)
[2018-09-11] MEDS: INSULIN SLIDING SCALE (NOVOLOG) 1 VIAL SQ SCH ×4 (06:49→21:37)
[2018-09-11 07:57] LABS: HEMATOCRIT 33.6 % (35.4-49); HEMOGLOBIN 11.3 GM/dL (11.7-16.9); MCH 29.4 pg (25.7-33.7); MCHC 33.7 g/dl (32.0-35.9); MEAN CELL VOLUME 87.2 fl (80-96); PLATELET COUNT 197 K/MM3 (134-434); RBC 3.85 M/mm3 (4.00-5.60); RDW 16.1 % (11.9-15.9); WHITE BLOOD COUNT 8.7 K/mm3 (4.0-10.0)
[2018-09-11 08:25] LABS: ALBUMIN 2.5 g/dl (3.4-5.0); ALK PHOS 92 U/L (45-117); ANION GAP 3 MMOL/L (8-16); BILIRUBIN,TOTAL 0.4 mg/dL (0.2-1); BLOOD UREA NITROGEN 26 mg/dL (7-18); CALCIUM 8.1 mg/dL (8.5-10.1); CHLORIDE 104 mmol/L (98-107); CO2 32 mmol/L (21-32); GLUCOSE,RANDOM 129 mg/dL (74-106); MAGNESIUM 2.1 mg/dL (1.8-2.4); POTASSIUM 4.6 mmol/L (3.5-5.1); SGOT/AST 42 U/L (15-37); SGPT/ALT 109 U/L (13-61); SODIUM 140 mmol/L (136-145); TOT PROT 4.8 g/dl (6.4-8.2)
--- NOTE | 2018-09-11 08:30 | PN ---
Progress Note, Physician - Current Medication List Current Medications: Active Medications Acetaminophen (Tylenol -) 650 mg PO Q4H PRN PRN Reason: FEVER Apixaban (Eliquis -) 5 mg PO BID [facility] Last Admin: 09/10/18 22:06 Dose: 5 mg Aspirin (Asa -) 81 mg PO [facility] Last Admin: 09/10/18 22:06 Dose: 81 mg Atorvastatin Calcium (Lipitor -) 80 mg PO [facility] Last Admin: 09/10/18 22:06 Dose: 80 mg Duloxetine HCl (Cymbalta -) 20 mg PO BID [facility] Last Admin: 09/10/18 22:06 Dose: 20 mg Hydrocortisone Sodium Succinate (Solu-Cortef -) 50 mg IVPB BID [facility] Last Admin: 09/10/18 22:06 Dose: 50 mg Vancomycin HCl (Vancomycin (Pre-Docked)) 1,000 mg in 250 mls @ 166.667 mls/hr IVPB DAILY@1400 [facility]; Protocol Last Admin: 09/10/18 14:28 Dose: 166.667 mls/hr Insulin Aspart (Novolog Vial Sliding Scale -) 1 vial SQ [facility]; Protocol Last Admin: 09/11/18 06:49 Dose: 2 units Insulin Detemir (Levemir Vial) 30 units SQ [facility] Last Admin: 09/10/18 22:22 Dose: 30 units Mycophenolate Sodium (Mycophenolic Acid) 360 mg PO BID [facility] Last Admin: 09/10/18 22:08 Dose: 360 mg Ranitidine HCl (Zantac Oral Solution -) 150 mg GT BID [facility] Last Admin: 09/10/18 22:06 Dose: 150 mg Tacrolimus (Prograf) 1 mg PO DAILY [facility] Last Admin: 09/10/18 09:10 Dose: 1 mg Tacrolimus (Prograf) 0.5 mg PO [facility] Last Admin: 09/10/18 22:56 Dose: 0.5 mg Tamsulosin HCl (Flomax -) 0.4 mg PO [facility] Last Admin: 09/10/18 22:06 Dose: 0.4 mg - Objective Vital Signs: Vital Signs Temperature 97.8 F 09/11/18 06:00 Pulse Rate 74 09/11/18 08:00 Respiratory Rate 21 H 09/11/18 08:00 Blood Pressure 113/99 09/11/18 08:00 O2 Sat by Pulse Oximetry (%) 96 10/21/18 20:21 Cardiovascular: Yes: S1, S2 Respiratory: Yes: Regular, CTA Bilaterally Gastrointestinal: Yes: Normal Bowel Sounds, Soft Labs: CBC, BMP 09/11/18 07:10 09/11/18 07:10 INR, PTT INR 1.01 (0.83-1.09) 09/04/18 16:15 Problem List - Problems (1) Change in mental status Assessment/Plan: Resolved--Back to baseline Code(s): R41.82 - ALTERED MENTAL STATUS, UNSPECIFIED Qualifiers: Altered mental status type: delirium Qualified Code(s): R41.0 - Disorientation, unspecified (2) Adrenal insufficiency Assessment/Plan: Steroids Taper Endo on case Code(s): E27.40 - UNSPECIFIED ADRENOCORTICAL INSUFFICIENCY (3) Bacteremia Assessment/Plan: Iv abx per ID--Will need ferry terminal agent Picc line on Tuesday Microbiology 09/07/18 09:00 Sputum - Expectorated Gram Stain - Final 09/04/18 16:40 Blood - Peripheral Venous Blood Culture - Final S Aureus 09/06/18 09:00 Blood - Peripheral Venous Blood Culture - Preliminary NO GROWTH OBTAINED AFTER 24 HOURS, INCUBATION TO CONTINUE FOR 4 DAYS. 09/06/18 09:00 Blood - Peripheral Venous Blood Culture - Preliminary NO GROWTH OBTAINED AFTER 24 HOURS, INCUBATION TO CONTINUE FOR 4 DAYS. 09/04/18 16:15 Blood - Peripheral Venous Blood Culture - Preliminary Staphylococcus Coagulase Neg 09/05/18 18:30 Urine For Antigen Detection Legionella Antigen - Final 09/05/18 18:30 Urine For Antigen Detection Streptococcus pneumoniae Antigen (M - Final 09/06/18 06:00 Urine For Antigen Detection Legionella Antigen - Final 09/06/18 06:00 Urine For Antigen Detection Streptococcus pneumoniae Antigen (M - Final 09/04/18 18:32 Urine - Urine - Catheterized Urine Culture - Final NO GROWTH OBTAINED Code(s): R78.81 - BACTEREMIA (4) Kidney transplant recipient Assessment/Plan: prgraf,mycophenolic acid and prednisone Code(s): Z94.0 - KIDNEY TRANSPLANT STATUS (5) DM2 (diabetes mellitus, type 2) Assessment/Plan: With Hypoglycemia--may have shireen due to sepsis endocrine consult on insulin-levemir on sliding scale Code(s): E11.9 - TYPE 2 DIABETES MELLITUS WITHOUT COMPLICATIONS Qualifiers: Diabetes mellitus retirement insulin use: with ferry terminal agent use (6) Left leg DVT Assessment/Plan: ivc ramy jerome Code(s): I82.402 - ACUTE EMBOLISM AND THOMBOS UNSP DEEP VEINS OF L LOW EXTREM Qualifiers: Affected thrombotic vein of extremity: other lower extremity vein Chronicity: acute Qualified Code(s): I82.492 - Acute embolism and thrombosis of other specified deep vein of left lower extremity
[2018-09-11] MEDS ORDERED: PICC LINE 8 ML FLUSH PROTOCOL IVPUSH PRN ×2 (09:50→11:21)
--- NOTE | 2018-09-11 10:11 | PN ---
Progress Note (short form) - Note Progress Note: alert NAD Vital Signs Period Temp Pulse Resp BP Sys/Mendoza Pulse Ox Last 24 Hr 97.2 F-98.6 F 66-85 16-27 113-147/44-99 96-96 cor-rrr lungs decreased bs at bases abd soft,nt ext +callous on fourth finger CBC, BMP 09/11/18 07:10 09/11/18 07:10 vanco trough 13.2 Microbiology 09/06/18 09:00 Blood - Peripheral Venous Blood Culture - Final NO GROWTH AFTER 5 DAYS INCUBATION 09/06/18 09:00 Blood - Peripheral Venous Blood Culture - Final NO GROWTH AFTER 5 DAYS INCUBATION 09/07/18 09:00 Sputum - Expectorated Gram Stain - Final 09/07/18 09:00 Sputum - Expectorated Sputum Culture - Final S Aureus 09/04/18 16:15 Blood - Peripheral Venous Blood Culture - Final Staph Hominis Sub Sp Hominis 09/04/18 16:40 Blood - Peripheral Venous Blood Culture - Final S Aureus 09/05/18 18:30 Urine For Antigen Detection Legionella Antigen - Final 09/05/18 18:30 Urine For Antigen Detection Streptococcus pneumoniae Antigen (M - Final 09/06/18 06:00 Urine For Antigen Detection Legionella Antigen - Final 09/06/18 06:00 Urine For Antigen Detection Streptococcus pneumoniae Antigen (M - Final 09/04/18 18:32 Urine - Urine - Catheterized Urine Culture - Final NO GROWTH OBTAINED cxray cardiomegaly, congestion a/p sepsis-MRSA bacteremia-?finger ulcer continue vancomycin 1 gram daily will require [facility]entiary iv antibiotics- will get mri of finger, if no osteo 4 weeks, if he has osteo then 6 weeks clinically do not think he has pneumonia- rapid respiratory improvement s/p renal transplant renal function improved poorly controlled DM Problem List - Problems (1) Sepsis Code(s): A41.9 - SEPSIS, UNSPECIFIED ORGANISM (2) Acute respiratory failure Code(s): J96.00 - ACUTE RESPIRATORY FAILURE, UNSP W HYPOXIA OR HYPERCAPNIA (3) PNA (pneumonia) Code(s): J18.9 - PNEUMONIA, UNSPECIFIED ORGANISM Qualifiers: Pneumonia type: due to unspecified organism Laterality: unspecified laterality Lung location: unspecified part of lung Qualified Code(s): J18.9 - Pneumonia, unspecified organism (4) Bacteremia Code(s): R78.81 - BACTEREMIA (5) History of MRSA infection Code(s): Z86.14 - PERSONAL HISTORY OF METHICILLIN RESIS STAPH INFECTION (6) H/O kidney transplant Code(s): Z94.0 - KIDNEY TRANSPLANT STATUS (7) DM2 (diabetes mellitus, type 2) Code(s): E11.9 - TYPE 2 DIABETES MELLITUS WITHOUT COMPLICATIONS Qualifiers: Diabetes mellitus long line teamster insulin use: with long line teamster use
[2018-09-11] MEDS: RANITIDINE HCL 150 MG/10 ML UNIT-DOSE GT SCH ×2 (10:20→21:27)
[2018-09-11] MEDS: MYCOPHENOLATE SODIUM 360 MG TABLET.DR PO SCH ×2 (10:20→21:28)
[2018-09-11] MEDS: DULoxetine HCL 20 MG CAPSULE.DR (FP) PO SCH ×2 (10:21→21:29)
[2018-09-11] MEDS: APIXABAN 5 MG TABLET PO SCH ×2 (10:21→21:28)
[2018-09-11] MEDS ORDERED: PT OWN MED DRAWER 7, Y5N ONE (10:23)
[2018-09-11] MEDS: HYDROCORTISONE SOD SUCCINATE 100 MG/2 ML VIAL IVPB SCH (10:25)
--- NOTE | 2018-09-11 11:04 | CONS ---
DATE OF CONSULTATION: 09/11/2018 REFERRING PHYSICIAN: Cisco Palacios MD HISTORY OF PRESENT ILLNESS: The patient is a 78-year-old male with a past medical history of diabetes as well as renal transplant on immunosuppressant medication who was admitted on September 04, 2018 with altered mental status. The patient was initially found to be hypoglycemic in the field with a sugar of 21. Was started on D5 in the field and presented to the emergency room with a blood sugar of 450. The patient also on admitting blood work had slight leukocytosis with WBCs 12.9, hemoglobin 14, platelet count 191, elevated BUN 38, creatinine 1.2, BNP was elevated at almost 1900. The patient underwent a CT of the head, which showed no acute intracranial pathology. Chest x-ray showed cardiomegaly with possible mild congestive changes. On September 05, hip x-ray showed degenerative changes in the pelvis, probable right inguinal pathology was also noted including calcifications. The patient was diagnosed with sepsis, acute renal failure, acute toxic metabolic encephalopathy, adrenal insufficiency, bacteremia. On September 06, his WBCs increased to 16.2, hemoglobin 11.6, platelet count 188, BUN slightly improved to 34 but creatinine increased to 1.4. The patient's blood work as of September 09 showed WBCs normalizing to 7, hemoglobin 10.4, platelet count 148. His chemistry showed elevated BUN 36 and creatinine 1.2. He did undergo an x-ray of the right hand, which showed degenerative changes, decreased bone density, vascular calcifications. He complains of numbness. He was evaluated by physical therapy and on September 08 was able to ambulate 12 feet with a rolling walker, contact guard of 2, transfers minimal assist of 2. The patient currently is feeling improved, although fatigued and does complain of numbness in the right hand. No shortness of breath or chest pain. No dizziness or lightheadedness. PAST MEDICAL HISTORY: As above. Hypertension, MS, congestive heart failure, DVT, diabetes, renal transplant. PAST SURGICAL HISTORY: As above. FAMILY HISTORY: Lives with family in a private house. He seems to indicate he has a lot of stairs to get into the 2nd level. Premorbidly used a cane. Again, it is uncertain how reliable a historian the patient is. REVIEW OF SYSTEMS: No headache, no lightheadedness, dizziness. No blurry vision, double vision, or change in vision. No nausea, vomiting, difficulty swallowing, difficulty chewing. No chest pain, shortness of breath, dyspnea on exertion, cough, or abdominal discomfort. No bowel or bladder complaints. He does have numbness and swelling in his right hand and also some swelling in the lower extremities and to the left upper extremity to a lesser degree. No other joint arthralgias. No fever or chills. No significant weight loss or weight gain. He denies any altered mental status. PHYSICAL EXAMINATION: General: The patient is seen lying supine in bed. He is awake, cooperative, and in no acute distress. HEENT: He is normocephalic and atraumatic. His extraocular muscles appear full. He has no obvious facial weakness. No oral ulcers. Neck: Supple. Extremities: Again, he does have some swelling of his right upper extremity more than the left upper extremity. Also some trace edema in the lower extremity. No calf tenderness. He has SCDs on. Neuromuscular: He is awake, alert. With some difficulty, he can come up with the month. [place] [facility] [place] does not recall the events that happened last week. He does not know the day of the week. His cranial nerves 2-12 are grossly intact. He does have some weakness in the right distal upper extremity. Intrinsics and thenar muscles with diminished sensation to pinprick. 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 He has good elbow flexion, elbow extension, and at least 4/5 shoulder girdle strength. He has antigravity strength in the lower extremities 3+/5 to 4-/5 in a supine position and hip flexion. Good knee flexion and extension. Good dorsiflexion and plantar flexion. Slightly diminished sensation to pinprick distally and depressed reflexes. Toes downgoing. Good joint stability. No gross arthritic changes in the lower extremities with some mild arthritic changes in the hands. OVERALL IMPRESSION: 1. Deficits in mobility, activities of daily living, multifactorial. 2. Deconditioning. 3. Status post hypoglycemia. 4. Sepsis. 5. Toxic metabolic encephalopathy, improving. 6. Acute renal insufficiency. 7. Status post renal transplant. 8. Anemia. 9. Status post leukocytosis. 10. History of deep vein thrombosis. 11. History of congestive heart failure, myocardial infarction, hypertension. 12. Diabetes and possible underlying diabetic peripheral neuropathy. 13. Right hand numbness, rule out carpal tunnel syndrome, ulnar neuropathy, or other etiology. PLAN/SUGGESTION: 1. Continue physical therapy at the bedside until out of the ICU. 2. Out of bed to chair with assistance. 3. The patient is on Eliquis. No further DVT prophylaxis needed. 4. Monitor BUN and creatinine closely. 5. Monitor hemoglobin. 6. Consider EMG, nerve conduction studies as an outpatient if numbness in the right hand persists. 7. Consider right cock-up splint. 8. Elevation of the right lower extremity. 9. Consider short-term rehabilitation in a [facility] facility versus home with home care based on his length of hospitalization and response to therapy. Thank you for this referral. MARGARET BANKS M.D. [id number]
[2018-09-11] MEDS ORDERED: ACETAMINOPHEN 325 MG TABLET (FP) PO PRN (11:21)
--- NOTE | 2018-09-11 12:08 | PN ---
Progress Note, [employer] - Note Progress Note: Selected Entries 09/10/18 09/10/18 09/10/18 06:00 08:00 08:56 Breakfast 100% Lunch Temperature 98.6 F 98.6 F 09/10/18 09/10/18 09/10/18 09:18 10:00 14:00 Breakfast 100% Lunch Temperature 98.7 F 98.6 F 09/10/18 09/10/18 09/10/18 15:49 18:00 22:00 Breakfast Lunch 100% Temperature 97.8 F 97.2 F L 09/11/18 09/11/18 09/11/18 02:00 06:00 08:00 Breakfast 100% Lunch Temperature 97.8 F 97.8 F 09/11/18 10:00 Breakfast Lunch Temperature 98.2 F Laboratory Tests 09/11/18 07:10 WBC 8.7 Pt tolerating diet well with good appetite. Chopped diet/nectar thick liquid provided. Consider: Diet Consistency: Dysphagia Minced, 1 - 2 Soft Items Medication Administration: Crushed with applesauce Liquids: [place] Thick Supplement: Magic Cup, Ensure Pudding
[2018-09-11] MEDS: TACROLIMUS ANHYDROUS 1 MG CAPSULE PO SCH (12:43)
--- NOTE | 2018-09-11 13:33 | PN ---
Progress Note, Physician History of Present Illness: Pt seen and examined at bedside. He is awake and alert. He denies shortness of breath. - Current Medication List Current Medications: Active Medications Acetaminophen (Tylenol -) 650 mg PO Q4H PRN PRN Reason: FEVER Apixaban (Eliquis -) 5 mg PO BID [facility] Aspirin (Asa -) 81 mg PO HS [facility] Atorvastatin Calcium (Lipitor -) 80 mg PO HS [facility] Duloxetine HCl (Cymbalta -) 20 mg PO BID [facility] Hydrocortisone Sodium Succinate (Solu-Cortef -) 50 mg IVPUSH BID [facility] IV Flush (Picc Line Flush) 8 ml IVPUSH PRN PRN PRN Reason: Protocol Vancomycin HCl (Vancomycin (Pre-Docked)) 1,000 mg in 250 mls @ 166.667 mls/hr IVPB DAILY@1400 [facility]; Protocol Insulin Aspart (Novolog Vial Sliding Scale -) 1 vial SQ ACHS [facility]; Protocol Insulin Detemir (Levemir Vial) 30 units SQ HS [facility] Mycophenolate Sodium (Mycophenolic Acid) 360 mg PO BID [facility] Ranitidine HCl (Zantac Oral Solution -) 150 mg GT BID [facility] Tacrolimus (Prograf) 1 mg PO DAILY [facility] Tacrolimus (Prograf) 0.5 mg PO HS [facility] Tamsulosin HCl (Flomax -) 0.4 mg PO HS [facility] - Objective Vital Signs: Vital Signs Temperature 98.2 F 09/11/18 10:00 Pulse Rate 66 09/11/18 12:00 Respiratory Rate 21 H 09/11/18 12:00 Blood Pressure 140/52 L 09/11/18 12:00 O2 Sat by Pulse Oximetry (%) 96 09/11/18 08:46 Constitutional: Yes: Calm Eyes: Yes: Conjunctiva Clear HENT: Yes: Atraumatic Cardiovascular: Yes: S1, S2 Respiratory: Yes: CTA Bilaterally Gastrointestinal: Yes: Soft Genitourinary: Yes: Other (graft soft and non tender) Edema: No Neurological: Yes: Confusion Labs: CBC, BMP 09/11/18 07:10 09/11/18 07:10 INR, PTT INR 1.01 (0.83-1.09) 09/04/18 16:15 Problem List - Problems (1) Change in mental status Code(s): R41.82 - ALTERED MENTAL STATUS, UNSPECIFIED Qualifiers: Altered mental status type: delirium Qualified Code(s): R41.0 - Disorientation, unspecified (2) Hypoglycemia Code(s): E16.2 - HYPOGLYCEMIA, UNSPECIFIED (3) Kidney transplant recipient Code(s): Z94.0 - KIDNEY TRANSPLANT STATUS Assessment/Plan Current Medications Generic Name Dose Route Start Last Admin Trade Name Freq PRN Reason Stop Dose Admin Acetaminophen 650 mg 09/11/18 11:21 Tylenol - PO Q4H PRN FEVER Apixaban 5 mg 09/11/18 22:00 Eliquis - PO BID [facility] Aspirin 81 mg 09/11/18 22:00 Asa - PO HS [facility] Atorvastatin Calcium 80 mg 09/11/18 22:00 Lipitor - PO HS [facility] Duloxetine HCl 20 mg 09/11/18 22:00 Cymbalta - PO BID [facility] Hydrocortisone Sodium Succinate 50 mg 09/11/18 22:00 Solu-Cortef - IVPUSH BID [facility] IV Flush 8 ml 09/11/18 11:21 Picc Line Flush IVPUSH PRN PRN Protocol Vancomycin HCl 1,000 mg in 250 mls @ 166.667 mls/hr 09/11/18 14:00 Vancomycin (Pre-Docked) IVPB DAILY@1400 [facility] Protocol Insulin Aspart 1 vial 09/11/18 16:30 Novolog Vial Sliding Scale - SQ ACHS [facility] Protocol Insulin Detemir 30 units 09/11/18 22:00 Levemir Vial SQ HS [facility] Mycophenolate Sodium 360 mg 09/11/18 22:00 Mycophenolic Acid PO BID [facility] Ranitidine HCl 150 mg 09/11/18 22:00 Zantac Oral Solution - GT BID [facility] Tacrolimus 1 mg 09/12/18 10:00 Prograf PO DAILY [facility] Tacrolimus 0.5 mg 09/11/18 22:00 Prograf PO HS [facility] Tamsulosin HCl 0.4 mg 09/11/18 22:00 Flomax - PO HS [facility] Impression 1. CKD 2. kidney transplant 3. DM with labile blood pressure 4. hx of syncope 5. HTN 6. hyperlipidemia 7. CHF 8. acute resp failure s/p intubation 9. Hx DVT - pt has IVC filter Plan - renal function is stable - follow prograf level - avoid nsaids and nephrotoxins - monitor pulse ox Dr Perez
--- NOTE | 2018-09-11 13:36 | PN ---
Teaching Attending Note Name of Resident: Mary Kellogg ATTENDING PHYSICIAN STATEMENT I saw and evaluated the patient. I reviewed the resident's note and discussed the case with the resident. I agree with the resident's findings and plan as documented. SUBJECTIVE: Patient seen and examined in the ICU. Awake and responsive. Still with pain in his finger. OBJECTIVE: Intake & Output 09/08/18 09/09/18 09/10/18 09/11/18 23:59 23:59 23:59 23:59 Intake Total 264 375 9404 60 Output Total 1600 1800 2000 300 Balance -940 -960 -660 -240 Weight 174 lb 8 oz Last Vital Signs Temp Pulse Resp BP Pulse Ox 98.2 F 66 21 H 140/52 L 96 09/11/18 10:00 09/11/18 12:00 09/11/18 12:00 09/11/18 12:00 09/11/18 08:46 Active Medications Acetaminophen (Tylenol -) 650 mg PO Q4H PRN PRN Reason: FEVER Apixaban (Eliquis -) 5 mg PO BID [facility] Aspirin (Asa -) 81 mg PO HS [facility] Atorvastatin Calcium (Lipitor -) 80 mg PO HS [facility] Duloxetine HCl (Cymbalta -) 20 mg PO BID [facility] Hydrocortisone Sodium Succinate (Solu-Cortef -) 50 mg IVPUSH BID [facility] IV Flush (Picc Line Flush) 8 ml IVPUSH PRN PRN PRN Reason: Protocol Vancomycin HCl (Vancomycin (Pre-Docked)) 1,000 mg in 250 mls @ 166.667 mls/hr IVPB DAILY@1400 [facility]; Protocol Insulin Aspart (Novolog Vial Sliding Scale -) 1 vial SQ ACHS [facility]; Protocol Insulin Detemir (Levemir Vial) 30 units SQ HS [facility] Mycophenolate Sodium (Mycophenolic Acid) 360 mg PO BID [facility] Ranitidine HCl (Zantac Oral Solution -) 150 mg GT BID [facility] Tacrolimus (Prograf) 1 mg PO DAILY [facility] Tacrolimus (Prograf) 0.5 mg PO HS [facility] Tamsulosin HCl (Flomax -) 0.4 mg PO HS [facility] Gen: NAD at rest Heart: RRR Lung: decreased breath sounds at the bases Abd: soft, nontender Ext: no edema Laboratory Results - last 24 hr 09/08/18 09/08/18 09/08/18 16:08 18:20 21:27 WBC RBC Hgb Hct MCV MCH MCHC RDW Plt Count MPV Sodium Potassium Chloride Carbon Dioxide Anion Gap BUN Creatinine Creat Clearance w eGFR POC Glucometer > 400 > 400 > 400 Random Glucose Calcium Phosphorus Magnesium Total Bilirubin AST ALT Alkaline Phosphatase Total Protein Albumin Vancomycin Pre-Dose 09/08/18 09/09/18 09/09/18 23:43 17:41 21:50 WBC RBC Hgb Hct MCV MCH MCHC RDW Plt Count MPV Sodium Potassium Chloride Carbon Dioxide Anion Gap BUN Creatinine Creat Clearance w eGFR POC Glucometer > 400 > 400 > 400 Random Glucose Calcium Phosphorus Magnesium Total Bilirubin AST ALT Alkaline Phosphatase Total Protein Albumin Vancomycin Pre-Dose 09/10/18 09/10/18 09/10/18 13:23 16:48 22:21 WBC RBC Hgb Hct MCV MCH MCHC RDW Plt Count MPV Sodium Potassium Chloride Carbon Dioxide Anion Gap BUN Creatinine Creat Clearance w eGFR POC Glucometer > [phone] Random Glucose Calcium Phosphorus Magnesium Total Bilirubin AST ALT Alkaline Phosphatase Total Protein Albumin Vancomycin Pre-Dose 13.2 L 09/11/18 09/11/18 09/11/18 06:47 07:10 07:10 WBC 8.7 RBC 3.85 L Hgb 11.3 L Hct 33.6 L MCV 87.2 MCH 29.4 MCHC 33.7 RDW 16.1 H Plt Count 197 D MPV 8.0 Sodium 140 Potassium 4.6 Chloride 104 Carbon Dioxide 32 Anion Gap 3 L BUN 26 H Creatinine 1.0 Creat Clearance w eGFR > 60 POC Glucometer [phone] Random Glucose 129 H Calcium 8.1 L Phosphorus 2.0 L Magnesium 2.1 Total Bilirubin 0.4 AST 42 H ALT 109 H Alkaline Phosphatase 92 Total Protein 4.8 L Albumin 2.5 L Vancomycin Pre-Dose ASSESSMENT AND PLAN: Acute Hypoxic Respiratory failure MRSA Bacteremia Finger Abscess Septic Shock Lactic Acidosis Acute Kidney Injury s/p Renal Transplant on immunosuppressants Hypoglycemia LV Diastolic Dysfunction HTN Hyperlipidemia h/o DVT - MRI of right hand - continue antibiotics per ID - FiO2 to keep SpO2 >90% - IVF - monitor urine output, creatinine - Eliquis - Aspiration precautions - 4W / 4S monitoring Dr Melgar
[2018-09-11] MEDS: VANCOMYCIN 1 GRAM (PRE-DOCKED) 1,000 MG/250 ML BAG IVPB SCH (15:10)
--- NOTE | 2018-09-11 16:57 | PN ---
Physical Exam: SUBJECTIVE: Patient seen and examined at bedside this morning. No acute events overnight. Patient reports feeling good today and has no complaints. OBJECTIVE: Vital Signs Period Temp Pulse Resp BP Sys/Mendoza Pulse Ox Last 24 Hr 97.2 F-98.6 F 66-87 16-27 113-140/44-99 96-96 GENERAL: The patient is awake, alert, and fully oriented, in no acute distress. HEAD: Normal with no signs of trauma. EYES: PERRLA, EOMI, sclera anicteric, conjunctiva clear. ENT: Ears normal, nares patent, moist mucous membranes. NECK: Trachea midline, full range of motion, supple. LUNGS: Breath sounds equal, clear to auscultation bilaterally. HEART: Regular rate and rhythm, S1, S2 without murmur, rub or gallop. ABDOMEN: Soft, nontender, nondistended, normoactive bowel sounds. EXTREMITIES: 2+ pulses, warm, well-perfused, no edema. SKIN: Warm, dry, normal turgor. Laboratory Results - last 24 hr 09/08/18 09/08/18 09/08/18 16:08 18:20 21:27 WBC RBC Hgb Hct MCV MCH MCHC RDW Plt Count MPV Sodium Potassium Chloride Carbon Dioxide Anion Gap BUN Creatinine Creat Clearance w eGFR POC Glucometer > 400 > 400 > 400 Random Glucose Calcium Phosphorus Magnesium Total Bilirubin AST ALT Alkaline Phosphatase Total Protein Albumin Tacrolimus 09/08/18 09/09/18 09/09/18 23:43 05:30 17:41 WBC RBC Hgb Hct MCV MCH MCHC RDW Plt Count MPV Sodium Potassium Chloride Carbon Dioxide Anion Gap BUN Creatinine Creat Clearance w eGFR POC Glucometer > 400 > 400 Random Glucose Calcium Phosphorus Magnesium Total Bilirubin AST ALT Alkaline Phosphatase Total Protein Albumin Tacrolimus 2.8 09/09/18 09/10/18 09/10/18 21:50 16:48 22:21 WBC RBC Hgb Hct MCV MCH MCHC RDW Plt Count MPV Sodium Potassium Chloride Carbon Dioxide Anion Gap BUN Creatinine Creat Clearance w eGFR POC Glucometer > 400 > [phone] Random Glucose Calcium Phosphorus Magnesium Total Bilirubin AST ALT Alkaline Phosphatase Total Protein Albumin Tacrolimus 09/11/18 09/11/18 09/11/18 06:47 07:10 07:10 WBC 8.7 RBC 3.85 L Hgb 11.3 L Hct 33.6 L MCV 87.2 MCH 29.4 MCHC 33.7 RDW 16.1 H Plt Count 197 D MPV 8.0 Sodium 140 Potassium 4.6 Chloride 104 Carbon Dioxide 32 Anion Gap 3 L BUN 26 H Creatinine 1.0 Creat Clearance w eGFR > 60 POC Glucometer 152.38848 Random Glucose 129 H Calcium 8.1 L Phosphorus 2.0 L Magnesium 2.1 Total Bilirubin 0.4 AST 42 H ALT 109 H Alkaline Phosphatase 92 Total Protein 4.8 L Albumin 2.5 L Tacrolimus Active Medications Generic Name Dose Route Start Last Admin Trade Name Freq PRN Reason Stop Dose Admin Acetaminophen 650 mg 09/11/18 11:21 Tylenol - PO Q4H PRN FEVER Apixaban 5 mg 09/11/18 22:00 Eliquis - PO BID [facility] Aspirin 81 mg 09/11/18 22:00 Asa - PO HS [facility] Atorvastatin Calcium 80 mg 09/11/18 22:00 Lipitor - PO HS [facility] Duloxetine HCl 20 mg 09/11/18 22:00 Cymbalta - PO BID [facility] Hydrocortisone Sodium Succinate 50 mg 09/11/18 22:00 Solu-Cortef - IVPUSH BID [facility] IV Flush 8 ml 09/11/18 11:21 Picc Line Flush IVPUSH PRN PRN Protocol Vancomycin HCl 1,000 mg in 250 mls @ 166.667 mls/hr 09/11/18 14:00 09/11/18 15:10 Vancomycin (Pre-Docked) IVPB 166.667 mls/hr DAILY@1400 [facility] Administration Protocol Insulin Aspart 1 vial 09/11/18 16:30 Novolog Vial Sliding Scale - SQ ACHS [facility] Protocol Insulin Detemir 30 units 09/11/18 22:00 Levemir Vial SQ HS [facility] Mycophenolate Sodium 360 mg 09/11/18 22:00 Mycophenolic Acid PO BID [facility] Ranitidine HCl 150 mg 09/11/18 22:00 Zantac Oral Solution - GT BID [facility] Tacrolimus 1 mg 09/12/18 10:00 Prograf PO DAILY [facility] Tacrolimus 0.5 mg 09/11/18 22:00 Prograf PO HS [facility] Tamsulosin HCl 0.4 mg 09/11/18 22:00 Flomax - PO HS [facility] ASSESSMENT/PLAN: Patient is a 78 year old male with past medical history of IDDM, HTN, CAD s/p RI s/p CABG, CHF, ESRD on HD previously now s/p kidney transplant (2008) on immunosuppression, previous DVT on apixaban, multiple previous hospitalizations and intubations for hypoglycemic episodes, presented to the ED with AMS/lethargy , hypoglycemia, and respiratory distress as well as hypotension. #Cardiovascular 1) Septic shock secondary to MRSA bacteremia -hypotension resolved, back to baseline mental status -Echo with normal EF -Continue ASA, Atorvastatin #Pulmonology -self-extubated -saturating well on room air -Duonebs q6h PRN #Infectious disease 1) Septic shock secondary to MRSA bacteremia likely 2/2 ?right finger wound -leukocytosis resolved, afebrile, lactic acidosis resolved -Blood cultures (09/04/18) - +MRSA -Repeat cultures (09/07/18) - +MRSA -suspected source right finger wound -ID (Dr. Ziegler) consulted. Recommendations appreciated. -Continue vancomycin 1gm daily -Will require mcc IV antibiotics -MRI of right finger to rule out osteomyelitis -if no osteo, 4 weeks IV vanco. If with osteo, 6 weeks -PICC line insertion prior to discharge. #Endocrinology 1)DM -BGM today >400, Novolog 12 units given -will continue to monitor -continue home Levemir 30 units -Endocrinology (Dr. Villela) consulted. #Gastroenterology -aspiration precautions -Speech/swallow evaluation. Recommendations appreciated. -Tolerating dysphagia minced diet with nectar thick liquids -Barium swallow pending #Nephrology 1)Acute kidney injury on CKD: resolved -history of renal transplant -BUN/Cr wnl today -monitor I/O -UA negative, Ucx negative -Nephrology (Dr. Perez) consulted. Recommendations appreciated. -hold IVF -Tacrolimus level -Transplant US completed - no blood flow compromise or obvious abnormalities. 2)s/p renal transplant, on immunosuppressived -Hydrocortisone 50mg IV push BID -Mycophenoloate 360mg BID -Tacrolimus 1 mg daily, 0.5mg HS #Neurology 1) Altered mental status -Sedation off after self-extubation. -Mental status apparently at baseline -Neurology following (Dr George) -Per daughter, has been increasingly "confused" over the past few years. #FEN -not on any standing fluids -electrolytes wnl, routine cmp monitoring -dysphagia minced diet with nectar thick liquids #Prophylaxis 1)DVT -Eliquis 5 mg BID 2)GI -Ranitidine 150mg GT BID #Disposition -stable for transfer to [facility]-surg -pending MRI read to rule out osteomyelitis, patient will be discharged on IV vancomycin -For PICC line insertion prior to discharge Visit type - Emergency Visit Emergency Visit: Yes ED Registration Date: 09/04/18 Care time: The patient presented to the Emergency Department on the above date and was hospitalized for further evaluation of their emergent condition. - New Patient This patient is new to me today: Yes Date on this admission: 09/11/18 - Critical Care Critical Care patient: Yes Total Critical Care Time (in minutes): 45 Critical Care Statement: The care of this patient involved high complexity decision making to prevent further life threatening deterioration of the patient 's condition and/or to evaluate & treat vital organ system(s) failure or risk of failure.
[2018-09-11] MEDS ORDERED: INSULIN (NOVOLOG) ASPART 100 UNITS/ML 10ML VIAL SQ ONE (20:12)
[2018-09-11] MEDS: ASPIRIN 81 MG CHEWABLE TABLETS PO SCH (21:27)
[2018-09-11] MEDS: TAMSULOSIN HCL 0.4 MG CAP PO SCH (21:28)
[2018-09-11] MEDS: ATORVASTATIN CA 80 MG TABLET (FP) PO SCH (21:28)
[2018-09-11] MEDS: INSULIN (LEVEMIR) 100 UNITS/ML UNITS SQ SCH (21:34)
[2018-09-11] MEDS ORDERED: HYDROCORTISONE SOD SUCCINATE 100 MG/2 ML VIAL IVPUSH SCH (22:00)
[2018-09-11] MEDS ORDERED: TACROLIMUS 0.5 MG CAPSULE PO SCH (22:00)
[2018-09-11 22:14] LABS: ANION GAP 8 MMOL/L (8-16); BLOOD UREA NITROGEN 33 mg/dL (7-18); CALCIUM 7.4 mg/dL (8.5-10.1); CHLORIDE 102 mmol/L (98-107); CO2 29 mmol/L (21-32); CREATININE 1.4 mg/dL (0.55-1.3); SODIUM 139 mmol/L (136-145)
[2018-09-11 22:40] LABS: GLUCOSE,RANDOM 432 mg/dL (74-106)
--- NOTE | 2018-09-11 23:41 | PN ---
Progress Note (short form) - Note Progress Note: Notified by RN that patient's glucose level >400, likely secondary to hydrocortison. Levemir 30 units given and insulin 5 units administered BMP ordered and glucose level was 453 and repeat 423. BUN/Cr elevated to 33/1.4 Will administer another 10 of Insulin Will begin IV 1/2NS @75mls/hr
[2018-09-11] MEDS ORDERED: SODIUM CHLORIDE 0.45% 1,000 ML IV SCH (23:45)
[2018-09-12] MEDS: INSULIN SLIDING SCALE (NOVOLOG) 1 VIAL SQ SCH ×3 (06:26→21:46)
[2018-09-12 06:40] LABS: BASO % 0.2 % (0-2.0); EOS % 1.7 % (0-4.5); HEMATOCRIT 34.2 % (35.4-49); LYMPH % 23.4 % (8-40); MCH 28.3 pg (25.7-33.7); MCHC 32.3 g/dl (32.0-35.9); MEAN CELL VOLUME 87.7 fl (80-96); MEAN PLT VOLUME 7.6 fl (7.5-11.1); NEUT % 67.7 % (42.8-82.8); PLATELET COUNT 198 K/MM3 (134-434); RDW 15.8 % (11.9-15.9); WHITE BLOOD COUNT 10.7 K/mm3 (4.0-10.0)
[2018-09-12 07:05] LABS: ANION GAP 4 MMOL/L (8-16); BLOOD UREA NITROGEN 27 mg/dL (7-18); CHLORIDE 103 mmol/L (98-107); CO2 33 mmol/L (21-32); CREATININE 0.9 mg/dL (0.55-1.3); GLUCOSE,RANDOM 54 mg/dL (74-106); POTASSIUM 4.3 mmol/L (3.5-5.1); SODIUM 140 mmol/L (136-145)
--- NOTE | 2018-09-12 07:50 | PN ---
Progress Note, Physician - Current Medication List Current Medications: Active Medications Acetaminophen (Tylenol -) 650 mg PO Q4H PRN PRN Reason: FEVER Apixaban (Eliquis -) 5 mg PO BID [facility] Last Admin: 09/11/18 21:28 Dose: 5 mg Aspirin (Asa -) 81 mg PO [facility] Last Admin: 09/11/18 21:27 Dose: 81 mg Atorvastatin Calcium (Lipitor -) 80 mg PO [facility] Last Admin: 09/11/18 21:28 Dose: 80 mg Duloxetine HCl (Cymbalta -) 20 mg PO BID [facility] Last Admin: 09/11/18 21:29 Dose: 20 mg Hydrocortisone (Cortef -) 20 mg PO BID [facility] IV Flush (Picc Line Flush) 8 ml IVPUSH PRN PRN PRN Reason: Protocol Vancomycin HCl (Vancomycin (Pre-Docked)) 1,000 mg in 250 mls @ 166.667 mls/hr IVPB DAILY@1400 [facility]; Protocol Last Admin: 09/11/18 15:10 Dose: 166.667 mls/hr Insulin Aspart (Novolog Vial Sliding Scale -) 1 vial SQ [facility]; Protocol Last Admin: 09/12/18 06:26 Dose: Not Given Insulin Detemir (Levemir Vial) 30 units SQ [facility] Last Admin: 09/11/18 21:34 Dose: 30 units Mycophenolate Sodium (Mycophenolic Acid) 360 mg PO BID [facility] Last Admin: 09/11/18 21:28 Dose: 360 mg Ranitidine HCl (Zantac Oral Solution -) 150 mg GT BID [facility] Last Admin: 09/11/18 21:27 Dose: 150 mg Tacrolimus (Prograf) 1 mg PO BID [facility] Tamsulosin HCl (Flomax -) 0.4 mg PO [facility] Last Admin: 09/11/18 21:28 Dose: 0.4 mg - Objective Vital Signs: Vital Signs Temperature 98 F 09/12/18 06:00 Pulse Rate 74 09/12/18 06:00 Respiratory Rate 22 H 09/12/18 06:00 Blood Pressure 131/65 09/12/18 06:00 O2 Sat by Pulse Oximetry (%) 96 09/11/18 21:00 Cardiovascular: Yes: S1, S2 Respiratory: Yes: Regular, CTA Bilaterally Gastrointestinal: Yes: Normal Bowel Sounds, Soft Labs: CBC, BMP 09/12/18 05:30 09/12/18 05:30 INR, PTT INR 1.01 (0.83-1.09) 09/04/18 16:15 Problem List - Problems (1) Change in mental status Assessment/Plan: Resolved--Back to baseline Code(s): R41.82 - ALTERED MENTAL STATUS, UNSPECIFIED Qualifiers: Altered mental status type: delirium Qualified Code(s): R41.0 - Disorientation, unspecified (2) Adrenal insufficiency Assessment/Plan: Steroids Taper--to po and further tapering per endo Endo on case Code(s): E27.40 - UNSPECIFIED ADRENOCORTICAL INSUFFICIENCY (3) Bacteremia Assessment/Plan: Iv abx per ID--Will need group home Picc line Microbiology 09/07/18 09:00 Sputum - Expectorated Gram Stain - Final 09/04/18 16:40 Blood - Peripheral Venous Blood Culture - Final S Aureus 09/06/18 09:00 Blood - Peripheral Venous Blood Culture - Preliminary NO GROWTH OBTAINED AFTER 24 HOURS, INCUBATION TO CONTINUE FOR 4 DAYS. 09/06/18 09:00 Blood - Peripheral Venous Blood Culture - Preliminary NO GROWTH OBTAINED AFTER 24 HOURS, INCUBATION TO CONTINUE FOR 4 DAYS. 09/04/18 16:15 Blood - Peripheral Venous Blood Culture - Preliminary Staphylococcus Coagulase Neg 09/05/18 18:30 Urine For Antigen Detection Legionella Antigen - Final 09/05/18 18:30 Urine For Antigen Detection Streptococcus pneumoniae Antigen (M - Final 09/06/18 06:00 Urine For Antigen Detection Legionella Antigen - Final 09/06/18 06:00 Urine For Antigen Detection Streptococcus pneumoniae Antigen (M - Final 09/04/18 18:32 Urine - Urine - Catheterized Urine Culture - Final NO GROWTH OBTAINED Code(s): R78.81 - BACTEREMIA (4) Kidney transplant recipient Assessment/Plan: prgraf,mycophenolic acid and prednisone Code(s): Z94.0 - KIDNEY TRANSPLANT STATUS (5) DM2 (diabetes mellitus, type 2) Assessment/Plan: bgm noted --high yesterday--monitor on steroid taper endocrine consult on insulin-levemir on sliding scale Code(s): E11.9 - TYPE 2 DIABETES MELLITUS WITHOUT COMPLICATIONS Qualifiers: Diabetes mellitus terminal operations manager insulin use: with terminal operations manager use (6) Left leg DVT Assessment/Plan: ivc filtre eliquis Code(s): I82.402 - ACUTE EMBOLISM AND THOMBOS UNSP DEEP VEINS OF L LOW EXTREM Qualifiers: Affected thrombotic vein of extremity: other lower extremity vein Chronicity: acute Qualified Code(s): I82.492 - Acute embolism and thrombosis of other specified deep vein of left lower extremity
[2018-09-12] MEDS: APIXABAN 5 MG TABLET PO SCH ×2 (09:43→21:40)
[2018-09-12] MEDS: HYDROCORTISONE 20 MG TABLET PO SCH ×2 (09:43→21:41)
[2018-09-12] MEDS: DULoxetine HCL 20 MG CAPSULE.DR (FP) PO SCH ×2 (09:43→21:40)
[2018-09-12] MEDS: RANITIDINE HCL 150 MG/10 ML UNIT-DOSE GT SCH ×2 (09:43→21:40)
[2018-09-12] MEDS: MYCOPHENOLATE SODIUM 360 MG TABLET.DR PO SCH ×2 (09:44→21:41)
[2018-09-12] MEDS: TACROLIMUS ANHYDROUS 1 MG CAPSULE PO SCH ×2 (09:44→21:47)
[2018-09-12] MEDS ORDERED: TACROLIMUS ANHYDROUS 1 MG CAPSULE PO SCH (10:00)
[2018-09-12 11:39] LABS: ANISOCYTOSIS 1+; MACROCYTOSIS 0; PLATELET ESTIMATE NORMAL
[2018-09-12] MEDS ORDERED: oxyCODONE HCL 5 MG TABLET PO PRN (12:42)
[2018-09-12] MEDS: VANCOMYCIN 1 GRAM (PRE-DOCKED) 1,000 MG/250 ML BAG IVPB SCH (13:10)
--- NOTE | 2018-09-12 13:17 | PN ---
Progress Note, [employer]MENT [employer] - Note Progress Note: Selected Entries 09/12/18 09/12/18 09/12/18 02:00 06:00 08:44 Breakfast 100% Temperature 98.1 F 98 F 09/12/18 10:05 Breakfast Temperature 98.2 F Laboratory Tests 09/12/18 05:30 WBC 10.7 H Tolerating diet. Good appetite. Maintain HOB elevated during and after meals for reduced aspiration risk. OOB when medically stable.
--- NOTE | 2018-09-12 14:11 | PN ---
Progress Note (short form) - Note Progress Note: alert NAD awiting MRI- this afternoon Vital Signs Period Temp Pulse Resp BP Sys/Mendoza Pulse Ox Last 24 Hr 98 F-98.6 F 64-81 20-24 109-151/34-81 96-96 cor-rrr lungs clear abd soft,nt ext callous/eschar fourth finger right hand CBC, BMP 09/12/18 05:30 09/12/18 05:30 Microbiology 09/06/18 09:00 Blood - Peripheral Venous Blood Culture - Final NO GROWTH AFTER 5 DAYS INCUBATION 09/06/18 09:00 Blood - Peripheral Venous Blood Culture - Final NO GROWTH AFTER 5 DAYS INCUBATION 09/07/18 09:00 Sputum - Expectorated Gram Stain - Final 09/07/18 09:00 Sputum - Expectorated Sputum Culture - Final S Aureus 09/04/18 16:15 Blood - Peripheral Venous Blood Culture - Final Staph Hominis Sub Sp Hominis 09/04/18 16:40 Blood - Peripheral Venous Blood Culture - Final S Aureus 09/05/18 18:30 Urine For Antigen Detection Legionella Antigen - Final 09/05/18 18:30 Urine For Antigen Detection Streptococcus pneumoniae Antigen (M - Final 09/06/18 06:00 Urine For Antigen Detection Legionella Antigen - Final 09/06/18 06:00 Urine For Antigen Detection Streptococcus pneumoniae Antigen (M - Final 09/04/18 18:32 Urine - Urine - Catheterized Urine Culture - Final NO GROWTH OBTAINED cxray cardiomegaly, congestion a/p sepsis-MRSA bacteremia-?finger ulcer continue vancomycin 1 gram daily will repeat vancomycin trough in am will require residential iv antibiotics- will get mri of finger, if no osteo 4 weeks, if he has osteo then 6 weeks clinically do not think he has pneumonia- rapid respiratory improvement s/p renal transplant renal function improved poorly controlled DM Problem List - Problems (1) Sepsis Code(s): A41.9 - SEPSIS, UNSPECIFIED ORGANISM (2) Acute respiratory failure Code(s): J96.00 - ACUTE RESPIRATORY FAILURE, UNSP W HYPOXIA OR HYPERCAPNIA (3) PNA (pneumonia) Code(s): J18.9 - PNEUMONIA, UNSPECIFIED ORGANISM Qualifiers: Pneumonia type: due to unspecified organism Laterality: unspecified laterality Lung location: unspecified part of lung Qualified Code(s): J18.9 - Pneumonia, unspecified organism (4) Bacteremia Code(s): R78.81 - BACTEREMIA (5) History of MRSA infection Code(s): Z86.14 - PERSONAL HISTORY OF METHICILLIN RESIS STAPH INFECTION (6) H/O kidney transplant Code(s): Z94.0 - KIDNEY TRANSPLANT STATUS (7) DM2 (diabetes mellitus, type 2) Code(s): E11.9 - TYPE 2 DIABETES MELLITUS WITHOUT COMPLICATIONS Qualifiers: Diabetes mellitus fci insulin use: with emt intermediate use
--- NOTE | 2018-09-12 15:13 | PN ---
Progress Note, Physician History of Present Illness: Pt seen and examined at bedside. He is awake and appears comfortable. His blood sugar has been labile. - Current Medication List Current Medications: Active Medications Acetaminophen (Tylenol -) 650 mg PO Q4H PRN PRN Reason: FEVER Apixaban (Eliquis -) 5 mg PO BID [facility] Last Admin: 09/12/18 09:43 Dose: 5 mg Aspirin (Asa -) 81 mg PO [facility] Last Admin: 09/11/18 21:27 Dose: 81 mg Atorvastatin Calcium (Lipitor -) 80 mg PO [facility] Last Admin: 09/11/18 21:28 Dose: 80 mg Duloxetine HCl (Cymbalta -) 20 mg PO BID [facility] Last Admin: 09/12/18 09:43 Dose: 20 mg Hydrocortisone (Cortef -) 20 mg PO BID [facility] Last Admin: 09/12/18 09:43 Dose: 20 mg IV Flush (Picc Line Flush) 8 ml IVPUSH PRN PRN PRN Reason: Protocol Vancomycin HCl (Vancomycin (Pre-Docked)) 1,000 mg in 250 mls @ 166.667 mls/hr IVPB DAILY@1400 [facility]; Protocol Last Admin: 09/12/18 13:10 Dose: 166.667 mls/hr Insulin Aspart (Novolog Vial Sliding Scale -) 1 vial SQ [facility]; Protocol Last Admin: 09/12/18 12:10 Dose: Not Given Insulin Detemir (Levemir Vial) 30 units SQ [facility] Last Admin: 09/11/18 21:34 Dose: 30 units Mycophenolate Sodium (Mycophenolic Acid) 360 mg PO BID [facility] Last Admin: 09/12/18 09:44 Dose: 360 mg Oxycodone HCl (Roxicodone -) 5 mg PO Q6H PRN PRN Reason: PAIN LEVEL 7 - 10 Ranitidine HCl (Zantac Oral Solution -) 150 mg GT BID [facility] Last Admin: 09/12/18 09:43 Dose: 150 mg Tacrolimus (Prograf) 1 mg PO BID [facility] Last Admin: 09/12/18 09:44 Dose: 1 mg Tamsulosin HCl (Flomax -) 0.4 mg PO [facility] Last Admin: 09/11/18 21:28 Dose: 0.4 mg - Objective Vital Signs: Vital Signs Temperature 98.6 F 09/12/18 13:15 Pulse Rate 74 09/12/18 13:15 Respiratory Rate 22 H 09/12/18 13:15 Blood Pressure 118/52 L 09/12/18 13:15 O2 Sat by Pulse Oximetry (%) 96 09/12/18 09:00 Constitutional: Yes: Calm Eyes: Yes: Conjunctiva Clear Cardiovascular: Yes: S1, S2 Respiratory: Yes: CTA Bilaterally Gastrointestinal: Yes: Soft Genitourinary: Yes: Incontinence, Other (graft is soft and non tender) Musculoskeletal: Yes: WNL Edema: No Neurological: Yes: Confusion Labs: CBC, BMP 09/12/18 05:30 09/12/18 05:30 INR, PTT INR 1.01 (0.83-1.09) 09/04/18 16:15 Problem List - Problems (1) Change in mental status Code(s): R41.82 - ALTERED MENTAL STATUS, UNSPECIFIED Qualifiers: Altered mental status type: delirium Qualified Code(s): R41.0 - Disorientation, unspecified (2) Hypoglycemia Code(s): E16.2 - HYPOGLYCEMIA, UNSPECIFIED (3) Kidney transplant recipient Code(s): Z94.0 - KIDNEY TRANSPLANT STATUS Assessment/Plan Current Medications Generic Name Dose Route Start Last Admin Trade Name Freq PRN Reason Stop Dose Admin Acetaminophen 650 mg 09/11/18 11:21 Tylenol - PO Q4H PRN FEVER Apixaban 5 mg 09/11/18 22:00 09/12/18 09:43 Eliquis - PO 5 mg BID [facility] Administration Aspirin 81 mg 09/11/18 22:00 09/11/18 21:27 Asa - PO 81 mg HS [facility] Administration Atorvastatin Calcium 80 mg 09/11/18 22:00 09/11/18 21:28 Lipitor - PO 80 mg HS [facility] Administration Duloxetine HCl 20 mg 09/11/18 22:00 09/12/18 09:43 Cymbalta - PO 20 mg BID [facility] Administration Hydrocortisone 20 mg 09/12/18 10:00 09/12/18 09:43 Cortef - PO 20 mg BID [facility] Administration IV Flush 8 ml 09/11/18 11:21 Picc Line Flush IVPUSH PRN PRN Protocol Vancomycin HCl 1,000 mg in 250 mls @ 166.667 mls/hr 09/11/18 14:00 09/12/18 13:10 Vancomycin (Pre-Docked) IVPB 166.667 mls/hr DAILY@1400 [facility] Administration Protocol Insulin Aspart 1 vial 09/11/18 16:30 09/12/18 12:10 Novolog Vial Sliding Scale - SQ Not Given ACHS [facility] Protocol Insulin Detemir 30 units 09/11/18 22:00 09/11/18 21:34 Levemir Vial SQ 30 units HS [facility] Administration Mycophenolate Sodium 360 mg 09/11/18 22:00 09/12/18 09:44 Mycophenolic Acid PO 360 mg BID [facility] Administration Oxycodone HCl 5 mg 09/12/18 12:42 Roxicodone - PO Q6H PRN PAIN LEVEL 7 - 10 Ranitidine HCl 150 mg 09/11/18 22:00 09/12/18 09:43 Zantac Oral Solution - GT 150 mg BID [facility] Administration Tacrolimus 1 mg 09/12/18 10:00 09/12/18 09:44 Prograf PO 1 mg BID [facility] Administration Tamsulosin HCl 0.4 mg 09/11/18 22:00 09/11/18 21:28 Flomax - PO 0.4 mg HS [facility] Administration Laboratory Tests 09/06/18 09/06/18 09/09/18 05:30 14:00 05:30 Tacrolimus Pending Pending 2.8 09/11/18 07:10 Tacrolimus Pending Impression 1. CKD 2. kidney transplant 3. DM with labile blood pressure 4. hx of syncope 5. HTN 6. hyperlipidemia 7. CHF 8. acute resp failure s/p intubation 9. Hx DVT - pt has IVC filter Plan - renal function is improved - will stop fluids - increase prograf back to 1mg q 12 hrs - follow repeat prograf level (will not reflect this change) - avoid nsaids and nephrotoxins - monitor pulse ox Dr Perez
--- NOTE | 2018-09-12 16:23 | PN ---
Teaching Attending Note Name of Resident: Mary Kellogg ATTENDING PHYSICIAN STATEMENT I saw and evaluated the patient. I reviewed the resident's note and discussed the case with the resident. I agree with the resident's findings and plan as documented. SUBJECTIVE: Patient seen and examined in the ICU. Awake and responsive. Still with pain in his finger. OBJECTIVE: Intake & Output 09/09/18 09/10/18 09/11/18 09/12/18 23:59 23:59 23:59 23:59 Intake Total 840 1340 1650 515 Output Total 1800 2000 300 Balance -960 -660 1350 515 Weight 174 lb 8 oz 172 lb 8 oz Last Vital Signs Temp Pulse Resp BP Pulse Ox 98.6 F 74 22 H 118/52 L 96 09/12/18 13:15 09/12/18 13:15 09/12/18 13:15 09/12/18 13:15 09/12/18 09:00 Active Medications Acetaminophen (Tylenol -) 650 mg PO Q4H PRN PRN Reason: FEVER Apixaban (Eliquis -) 5 mg PO BID [facility] Last Admin: 09/12/18 09:43 Dose: 5 mg Aspirin (Asa -) 81 mg PO [facility] Last Admin: 09/11/18 21:27 Dose: 81 mg Atorvastatin Calcium (Lipitor -) 80 mg PO [facility] Last Admin: 09/11/18 21:28 Dose: 80 mg Duloxetine HCl (Cymbalta -) 20 mg PO BID [facility] Last Admin: 09/12/18 09:43 Dose: 20 mg Hydrocortisone (Cortef -) 20 mg PO BID [facility] Last Admin: 09/12/18 09:43 Dose: 20 mg IV Flush (Picc Line Flush) 8 ml IVPUSH PRN PRN PRN Reason: Protocol Vancomycin HCl (Vancomycin (Pre-Docked)) 1,000 mg in 250 mls @ 166.667 mls/hr IVPB DAILY@1400 [facility]; Protocol Last Admin: 09/12/18 13:10 Dose: 166.667 mls/hr Insulin Aspart (Novolog Vial Sliding Scale -) 1 vial SQ [facility]; Protocol Last Admin: 09/12/18 12:10 Dose: Not Given Insulin Detemir (Levemir Vial) 30 units SQ [facility] Last Admin: 09/11/18 21:34 Dose: 30 units Mycophenolate Sodium (Mycophenolic Acid) 360 mg PO BID [facility] Last Admin: 09/12/18 09:44 Dose: 360 mg Oxycodone HCl (Roxicodone -) 5 mg PO Q6H PRN PRN Reason: PAIN LEVEL 7 - 10 Ranitidine HCl (Zantac Oral Solution -) 150 mg GT BID [facility] Last Admin: 09/12/18 09:43 Dose: 150 mg Tacrolimus (Prograf) 1 mg PO BID [facility] Last Admin: 09/12/18 09:44 Dose: 1 mg Tamsulosin HCl (Flomax -) 0.4 mg PO HS [facility] Last Admin: 09/11/18 21:28 Dose: 0.4 mg Gen: NAD at rest Heart: RRR Lung: decreased breath sounds at the bases Abd: soft, nontender Ext: no edema Laboratory Results - last 24 hr 09/11/18 09/11/18 09/11/18 11:08 16:58 17:45 WBC RBC Hgb Hct MCV MCH MCHC RDW Plt Count MPV Absolute Neuts (auto) Neutrophils % Neutrophils % (Manual) Band Neutrophils % Lymphocytes % Lymphocytes % (Manual) Monocytes % Monocytes % (Manual) Eosinophils % Eosinophils % (Manual) Basophils % Basophils % (Manual) Myelocytes % (Man) Promyelocytes % (Man) Blast Cells % (Manual) Nucleated RBC % Metamyelocytes Hypochromia Platelet Estimate Polychromasia Poikilocytosis Anisocytosis Microcytosis Macrocytosis Sodium Potassium Chloride Carbon Dioxide Anion Gap BUN Creatinine Creat Clearance w eGFR POC Glucometer 383.96799 > 400 Random Glucose 453 H* Calcium Phosphorus Magnesium 09/11/18 09/11/18 09/11/18 21:00 21:32 21:36 WBC RBC Hgb Hct MCV MCH MCHC RDW Plt Count MPV Absolute Neuts (auto) Neutrophils % Neutrophils % (Manual) Band Neutrophils % Lymphocytes % Lymphocytes % (Manual) Monocytes % Monocytes % (Manual) Eosinophils % Eosinophils % (Manual) Basophils % Basophils % (Manual) Myelocytes % (Man) Promyelocytes % (Man) Blast Cells % (Manual) Nucleated RBC % Metamyelocytes Hypochromia Platelet Estimate Polychromasia Poikilocytosis Anisocytosis Microcytosis Macrocytosis Sodium 139 Potassium 5.0 Chloride 102 Carbon Dioxide 29 Anion Gap 8 BUN 33 H Creatinine 1.4 H Creat Clearance w eGFR 49.27 POC Glucometer > 400 > 400 Random Glucose 432 H* Calcium 7.4 L Phosphorus Magnesium 09/12/18 09/12/18 09/12/18 03:50 05:30 05:30 WBC 10.7 H RBC 3.90 L Hgb 11.0 L Hct 34.2 L MCV 87.7 MCH 28.3 MCHC 32.3 RDW 15.8 Plt Count 198 MPV 7.6 Absolute Neuts (auto) 7.2 Neutrophils % 67.7 Neutrophils % (Manual) 65.3 Band Neutrophils % 1.0 Lymphocytes % 23.4 D Lymphocytes % (Manual) 24.7 D Monocytes % 7.0 Monocytes % (Manual) 3 L Eosinophils % 1.7 D Eosinophils % (Manual) 2.0 D Basophils % 0.2 Basophils % (Manual) 0.0 Myelocytes % (Man) 2 D Promyelocytes % (Man) 0 Blast Cells % (Manual) 0 Nucleated RBC % 0 Metamyelocytes 2 D Hypochromia 0 Platelet Estimate Normal Polychromasia 0 Poikilocytosis 0 Anisocytosis 1+ Microcytosis 1+ Macrocytosis 0 Sodium 140 Potassium 4.3 Chloride 103 Carbon Dioxide 33 H Anion Gap 4 L BUN 27 H Creatinine 0.9 Creat Clearance w eGFR > 60 POC Glucometer 117.62561 Random Glucose 54 L Calcium 8.0 L Phosphorus 2.0 L Magnesium 2.0 09/12/18 09/12/18 09/12/18 06:09 09:25 12:09 WBC RBC Hgb Hct MCV MCH MCHC RDW Plt Count MPV Absolute Neuts (auto) Neutrophils % Neutrophils % (Manual) Band Neutrophils % Lymphocytes % Lymphocytes % (Manual) Monocytes % Monocytes % (Manual) Eosinophils % Eosinophils % (Manual) Basophils % Basophils % (Manual) Myelocytes % (Man) Promyelocytes % (Man) Blast Cells % (Manual) Nucleated RBC % Metamyelocytes Hypochromia Platelet Estimate Polychromasia Poikilocytosis Anisocytosis Microcytosis Macrocytosis Sodium Potassium Chloride Carbon Dioxide Anion Gap BUN Creatinine Creat Clearance w eGFR POC Glucometer 69.45731 138.22448 90.77459 Random Glucose Calcium Phosphorus Magnesium ASSESSMENT AND PLAN: Acute Hypoxic Respiratory failure MRSA Bacteremia Finger Abscess Septic Shock Lactic Acidosis Acute Kidney Injury s/p Renal Transplant on immunosuppressants Hypoglycemia LV Diastolic Dysfunction HTN Hyperlipidemia h/o DVT - MRI of right hand - continue antibiotics per ID - FiO2 to keep SpO2 >90% - IVF - monitor urine output, creatinine - Eliquis - Aspiration precautions - 4W / 4S monitoring Dr Melgar
--- NOTE | 2018-09-12 17:58 | PN ---
Physical Exam: SUBJECTIVE: Patient seen and examined at bedside this morning. Patient was hyperglycemic overnight with BGM >400. As per night team, nephrology consulted and patient was given IV 1/2NS x1L. Glucose has been controlled all day at 90s- 130s. Patient still reports right finger pain. OBJECTIVE: Vital Signs Period Temp Pulse Resp BP Sys/Mendoza Pulse Ox Last 24 Hr 98 F-98.6 F 64-81 20-24 109-151/34-81 96-96 GENERAL: The patient is awake, alert, and fully oriented, in no acute distress. HEAD: Normal with no signs of trauma. EYES: PERRLA, EOMI, sclera anicteric, conjunctiva clear. ENT: Ears normal, nares patent, moist mucous membranes. NECK: Trachea midline, full range of motion, supple. LUNGS: Breath sounds equal, clear to auscultation bilaterally. HEART: Regular rate and rhythm, S1, S2 without murmur, rub or gallop. ABDOMEN: Soft, nontender, nondistended, normoactive bowel sounds. EXTREMITIES: 2+ pulses, warm, well-perfused, no edema. SKIN: Warm, dry, normal turgor. Laboratory Results - last 24 hr 09/11/18 09/11/18 09/11/18 11:08 16:58 17:45 WBC RBC Hgb Hct MCV MCH MCHC RDW Plt Count MPV Absolute Neuts (auto) Neutrophils % Neutrophils % (Manual) Band Neutrophils % Lymphocytes % Lymphocytes % (Manual) Monocytes % Monocytes % (Manual) Eosinophils % Eosinophils % (Manual) Basophils % Basophils % (Manual) Myelocytes % (Man) Promyelocytes % (Man) Blast Cells % (Manual) Nucleated RBC % Metamyelocytes Hypochromia Platelet Estimate Polychromasia Poikilocytosis Anisocytosis Microcytosis Macrocytosis Sodium Potassium Chloride Carbon Dioxide Anion Gap BUN Creatinine Creat Clearance w eGFR POC Glucometer 383.43325 > 400 Random Glucose 453 H* Calcium Phosphorus Magnesium 09/11/18 09/11/18 09/11/18 21:00 21:32 21:36 WBC RBC Hgb Hct MCV MCH MCHC RDW Plt Count MPV Absolute Neuts (auto) Neutrophils % Neutrophils % (Manual) Band Neutrophils % Lymphocytes % Lymphocytes % (Manual) Monocytes % Monocytes % (Manual) Eosinophils % Eosinophils % (Manual) Basophils % Basophils % (Manual) Myelocytes % (Man) Promyelocytes % (Man) Blast Cells % (Manual) Nucleated RBC % Metamyelocytes Hypochromia Platelet Estimate Polychromasia Poikilocytosis Anisocytosis Microcytosis Macrocytosis Sodium 139 Potassium 5.0 Chloride 102 Carbon Dioxide 29 Anion Gap 8 BUN 33 H Creatinine 1.4 H Creat Clearance w eGFR 49.27 POC Glucometer > 400 > 400 Random Glucose 432 H* Calcium 7.4 L Phosphorus Magnesium 09/12/18 09/12/18 09/12/18 03:50 05:30 05:30 WBC 10.7 H RBC 3.90 L Hgb 11.0 L Hct 34.2 L MCV 87.7 MCH 28.3 MCHC 32.3 RDW 15.8 Plt Count 198 MPV 7.6 Absolute Neuts (auto) 7.2 Neutrophils % 67.7 Neutrophils % (Manual) 65.3 Band Neutrophils % 1.0 Lymphocytes % 23.4 D Lymphocytes % (Manual) 24.7 D Monocytes % 7.0 Monocytes % (Manual) 3 L Eosinophils % 1.7 D Eosinophils % (Manual) 2.0 D Basophils % 0.2 Basophils % (Manual) 0.0 Myelocytes % (Man) 2 D Promyelocytes % (Man) 0 Blast Cells % (Manual) 0 Nucleated RBC % 0 Metamyelocytes 2 D Hypochromia 0 Platelet Estimate Normal Polychromasia 0 Poikilocytosis 0 Anisocytosis 1+ Microcytosis 1+ Macrocytosis 0 Sodium 140 Potassium 4.3 Chloride 103 Carbon Dioxide 33 H Anion Gap 4 L BUN 27 H Creatinine 0.9 Creat Clearance w eGFR > 60 POC Glucometer 117.52569 Random Glucose 54 L Calcium 8.0 L Phosphorus 2.0 L Magnesium 2.0 09/12/18 09/12/18 09/12/18 06:09 09:25 12:09 WBC RBC Hgb Hct MCV MCH MCHC RDW Plt Count MPV Absolute Neuts (auto) Neutrophils % Neutrophils % (Manual) Band Neutrophils % Lymphocytes % Lymphocytes % (Manual) Monocytes % Monocytes % (Manual) Eosinophils % Eosinophils % (Manual) Basophils % Basophils % (Manual) Myelocytes % (Man) Promyelocytes % (Man) Blast Cells % (Manual) Nucleated RBC % Metamyelocytes Hypochromia Platelet Estimate Polychromasia Poikilocytosis Anisocytosis Microcytosis Macrocytosis Sodium Potassium Chloride Carbon Dioxide Anion Gap BUN Creatinine Creat Clearance w eGFR POC Glucometer 69.26487 138.29531 90.31739 Random Glucose Calcium Phosphorus Magnesium Active Medications Generic Name Dose Route Start Last Admin Trade Name Freq PRN Reason Stop Dose Admin Acetaminophen 650 mg 09/11/18 11:21 Tylenol - PO Q4H PRN FEVER Apixaban 5 mg 09/11/18 22:00 09/12/18 09:43 Eliquis - PO 5 mg BID [facility] Administration Aspirin 81 mg 09/11/18 22:00 09/11/18 21:27 Asa - PO 81 mg HS [facility] Administration Atorvastatin Calcium 80 mg 09/11/18 22:00 09/11/18 21:28 Lipitor - PO 80 mg HS [facility] Administration Duloxetine HCl 20 mg 09/11/18 22:00 09/12/18 09:43 Cymbalta - PO 20 mg BID [facility] Administration Hydrocortisone 20 mg 09/12/18 10:00 09/12/18 09:43 Cortef - PO 20 mg BID [facility] Administration IV Flush 8 ml 09/11/18 11:21 Picc Line Flush IVPUSH PRN PRN Protocol Vancomycin HCl 1,000 mg in 250 mls @ 166.667 mls/hr 09/11/18 14:00 09/12/18 13:10 Vancomycin (Pre-Docked) IVPB 166.667 mls/hr DAILY@1400 [facility] Administration Protocol Insulin Aspart 1 vial 09/11/18 16:30 09/12/18 12:10 Novolog Vial Sliding Scale - SQ Not Given ACHS [facility] Protocol Insulin Detemir 30 units 09/11/18 22:00 09/11/18 21:34 Levemir Vial SQ 30 units HS [facility] Administration Mycophenolate Sodium 360 mg 09/11/18 22:00 09/12/18 09:44 Mycophenolic Acid PO 360 mg BID [facility] Administration Oxycodone HCl 5 mg 09/12/18 12:42 Roxicodone - PO Q6H PRN PAIN LEVEL 7 - 10 Ranitidine HCl 150 mg 09/11/18 22:00 09/12/18 09:43 Zantac Oral Solution - GT 150 mg BID [facility] Administration Tacrolimus 1 mg 09/12/18 10:00 09/12/18 09:44 Prograf PO 1 mg BID [facility] Administration Tamsulosin HCl 0.4 mg 09/11/18 22:00 09/11/18 21:28 Flomax - PO 0.4 mg HS [facility] Administration ASSESSMENT/PLAN: Patient is a 78 year old male with past medical history of IDDM, HTN, CAD s/p VA s/p CABG, CHF, ESRD on HD previously now s/p kidney transplant (2008) on immunosuppression, previous DVT on apixaban, multiple previous hospitalizations and intubations for hypoglycemic episodes, presented to the ED with AMS/lethargy , hypoglycemia, and respiratory distress as well as hypotension. #Cardiovascular 1) Septic shock secondary to MRSA bacteremia -hypotension resolved, back to baseline mental status -Echo with normal EF -Continue ASA, Atorvastatin #Pulmonology -self-extubated -saturating well on room air -Duonebs q6h PRN #Infectious disease 1) Septic shock secondary to MRSA bacteremia likely 2/2 ?right finger wound -leukocytosis resolved, afebrile, lactic acidosis resolved -Blood cultures (09/04/18) - +MRSA -Repeat cultures (09/07/18) - +MRSA -suspected source right finger wound -ID (Dr. Ziegler) consulted. Recommendations appreciated. -Continue vancomycin 1gm daily -Will require intermediate frame tender IV antibiotics -MRI of right finger to rule out osteomyelitis -if no osteo, 4 weeks IV vanco. If with osteo, 6 weeks -PICC line insertion prior to discharge. -Morphine PRN for pain #Endocrinology 1)DM -BGM today >400, Novolog 12 units given -will continue to monitor -continue home Levemir 30 units -Endocrinology (Dr. Villela) consulted. #Gastroenterology -aspiration precautions -Speech/swallow evaluation. Recommendations appreciated. -Tolerating dysphagia minced diet with nectar thick liquids -Barium swallow pending #Nephrology 1)Acute kidney injury on CKD: resolved -history of renal transplant -BUN/Cr wnl today -monitor I/O -UA negative, Ucx negative -Nephrology (Dr. Perez) consulted. Recommendations appreciated. -hold IVF -Tacrolimus level -Transplant US completed - no blood flow compromise or obvious abnormalities. 2)s/p renal transplant, on immunosuppressived -Hydrocortisone 50mg IV push BID -Mycophenoloate 360mg BID -Tacrolimus 1 mg daily, 0.5mg HS #Neurology 1) Altered mental status -Sedation off after self-extubation. -Mental status apparently at baseline -Neurology following (Dr George) -Per daughter, has been increasingly "confused" over the past few years. #FEN -not on any standing fluids -electrolytes wnl, routine cmp monitoring -dysphagia minced diet with nectar thick liquids #Prophylaxis 1)DVT -Eliquis 5 mg BID 2)GI -Ranitidine 150mg GT BID #[facility]pending MRI read to rule out osteomyelitis, patient will be discharged on IV vancomycin -For PICC line insertion prior to discharge Visit type - Emergency Visit Emergency Visit: Yes ED Registration Date: 09/04/18 Care time: The patient presented to the Emergency Department on the above date and was hospitalized for further evaluation of their emergent condition. - New Patient This patient is new to me today: Yes Date on this admission: 09/12/18 - Critical Care Critical Care patient: Yes Total Critical Care Time (in minutes): 40 Critical Care Statement: The care of this patient involved high complexity decision making to prevent further life threatening deterioration of the patient 's condition and/or to evaluate & treat vital organ system(s) failure or risk of failure.
[2018-09-12] MEDS ORDERED: PT OWN MED DRAWER 7, Y5N ONE (20:22)
[2018-09-12] MEDS: ATORVASTATIN CA 80 MG TABLET (FP) PO SCH (21:40)
[2018-09-12] MEDS: ASPIRIN 81 MG CHEWABLE TABLETS PO SCH (21:40)
[2018-09-12] MEDS: TAMSULOSIN HCL 0.4 MG CAP PO SCH (21:41)
[2018-09-12] MEDS: INSULIN (LEVEMIR) 100 UNITS/ML UNITS SQ SCH (21:45)
[2018-09-13 05:54] LABS: HEMATOCRIT 34.8 % (35.4-49); HEMOGLOBIN 11.3 GM/dL (11.7-16.9); MCH 28.5 pg (25.7-33.7); MCHC 32.4 g/dl (32.0-35.9); MEAN PLT VOLUME 7.5 fl (7.5-11.1); PLATELET COUNT 215 K/MM3 (134-434); RBC 3.95 M/mm3 (4.00-5.60); RDW 16.4 % (11.9-15.9); WHITE BLOOD COUNT 10.8 K/mm3 (4.0-10.0)
[2018-09-13 06:34] LABS: ANION GAP 6 MMOL/L (8-16); BLOOD UREA NITROGEN 24 mg/dL (7-18); CALCIUM 7.7 mg/dL (8.5-10.1); CHLORIDE 102 mmol/L (98-107); CO2 30 mmol/L (21-32); CREATININE 0.9 mg/dL (0.55-1.3); GLUCOSE,RANDOM 117 mg/dL (74-106); MAGNESIUM 1.9 mg/dL (1.8-2.4); PHOSPHOROUS 2.2 mg/dL (2.5-4.9); POTASSIUM 4.9 mmol/L (3.5-5.1); SODIUM 138 mmol/L (136-145)
[2018-09-13] MEDS: INSULIN SLIDING SCALE (NOVOLOG) 1 VIAL SQ SCH ×6 (06:34→22:43)
[2018-09-13] MEDS ORDERED: MAGNESIUM OXIDE 400 MG TABLET (FP) PO ONE (07:51)
[2018-09-13] MEDS ORDERED: NAPH,MB-DB/K PH,MBDB POWDER PACKET PO ONE (07:52)
--- NOTE | 2018-09-13 07:57 | PN ---
Progress Note, Physician - Current Medication List Current Medications: Active Medications Acetaminophen (Tylenol -) 650 mg PO Q4H PRN PRN Reason: FEVER Apixaban (Eliquis -) 5 mg PO BID [facility] Last Admin: 09/12/18 21:40 Dose: 5 mg Aspirin (Asa -) 81 mg PO [facility] Last Admin: 09/12/18 21:40 Dose: 81 mg Atorvastatin Calcium (Lipitor -) 80 mg PO [facility] Last Admin: 09/12/18 21:40 Dose: 80 mg Duloxetine HCl (Cymbalta -) 20 mg PO BID [facility] Last Admin: 09/12/18 21:40 Dose: 20 mg Hydrocortisone (Cortef -) 20 mg PO BID [facility] Last Admin: 09/12/18 21:41 Dose: 20 mg IV Flush (Picc Line Flush) 8 ml IVPUSH PRN PRN PRN Reason: Protocol Vancomycin HCl (Vancomycin (Pre-Docked)) 1,000 mg in 250 mls @ 166.667 mls/hr IVPB DAILY@1400 [facility]; Protocol Last Admin: 09/12/18 13:10 Dose: 166.667 mls/hr Insulin Aspart (Novolog Vial Sliding Scale -) 1 vial SQ [facility]; Protocol Last Admin: 09/13/18 06:34 Dose: Not Given Insulin Detemir (Levemir Vial) 30 units SQ [facility] Last Admin: 09/12/18 21:45 Dose: 30 units Mycophenolate Sodium (Mycophenolic Acid) 360 mg PO BID [facility] Last Admin: 09/12/18 21:41 Dose: 360 mg Oxycodone HCl (Roxicodone -) 5 mg PO Q6H PRN PRN Reason: PAIN LEVEL 7 - 10 Ranitidine HCl (Zantac Oral Solution -) 150 mg GT BID [facility] Last Admin: 09/12/18 21:40 Dose: 150 mg Tacrolimus (Prograf) 1 mg PO BID [facility] Last Admin: 09/12/18 21:47 Dose: 1 mg Tamsulosin HCl (Flomax -) 0.4 mg PO [facility] Last Admin: 09/12/18 21:41 Dose: 0.4 mg - Objective Vital Signs: Vital Signs Temperature 98.4 F 09/13/18 06:00 Pulse Rate 75 09/13/18 06:00 Respiratory Rate 18 09/13/18 06:00 Blood Pressure 123/83 09/13/18 06:00 O2 Sat by Pulse Oximetry (%) 95 09/12/18 21:00 Cardiovascular: Yes: S1, S2 Respiratory: Yes: Regular, CTA Bilaterally Gastrointestinal: Yes: Normal Bowel Sounds, Soft Labs: CBC, BMP 09/13/18 05:30 09/13/18 05:30 INR, PTT INR 1.01 (0.83-1.09) 09/04/18 16:15 Problem List - Problems (1) Change in mental status Assessment/Plan: Resolved--Back to baseline Code(s): R41.82 - ALTERED MENTAL STATUS, UNSPECIFIED Qualifiers: Altered mental status type: delirium Qualified Code(s): R41.0 - Disorientation, unspecified (2) Adrenal insufficiency Assessment/Plan: Steroids Taper--to po and further tapering per endo Endo on case Code(s): E27.40 - UNSPECIFIED ADRENOCORTICAL INSUFFICIENCY (3) Bacteremia Assessment/Plan: Iv abx per ID--Will need retirement Picc line Microbiology 09/07/18 09:00 Sputum - Expectorated Gram Stain - Final 09/04/18 16:40 Blood - Peripheral Venous Blood Culture - Final S Aureus 09/06/18 09:00 Blood - Peripheral Venous Blood Culture - Preliminary NO GROWTH OBTAINED AFTER 24 HOURS, INCUBATION TO CONTINUE FOR 4 DAYS. 09/06/18 09:00 Blood - Peripheral Venous Blood Culture - Preliminary NO GROWTH OBTAINED AFTER 24 HOURS, INCUBATION TO CONTINUE FOR 4 DAYS. 09/04/18 16:15 Blood - Peripheral Venous Blood Culture - Preliminary Staphylococcus Coagulase Neg 09/05/18 18:30 Urine For Antigen Detection Legionella Antigen - Final 09/05/18 18:30 Urine For Antigen Detection Streptococcus pneumoniae Antigen (M - Final 09/06/18 06:00 Urine For Antigen Detection Legionella Antigen - Final 09/06/18 06:00 Urine For Antigen Detection Streptococcus pneumoniae Antigen (M - Final 09/04/18 18:32 Urine - Urine - Catheterized Urine Culture - Final NO GROWTH OBTAINED Code(s): R78.81 - BACTEREMIA (4) Kidney transplant recipient Assessment/Plan: prgraf,mycophenolic acid and prednisone Code(s): Z94.0 - KIDNEY TRANSPLANT STATUS (5) DM2 (diabetes mellitus, type 2) Assessment/Plan: bgm noted --high yesterday--monitor on steroid taper endocrine consult on insulin-levemir on sliding scale Code(s): E11.9 - TYPE 2 DIABETES MELLITUS WITHOUT COMPLICATIONS Qualifiers: Diabetes mellitus terminal carman insulin use: with retirement use (6) Left leg DVT Assessment/Plan: ivc ramy jerome Code(s): I82.402 - ACUTE EMBOLISM AND THOMBOS UNSP DEEP VEINS OF L LOW EXTREM Qualifiers: Affected thrombotic vein of extremity: other lower extremity vein Chronicity: acute Qualified Code(s): I82.492 - Acute embolism and thrombosis of other specified deep vein of left lower extremity (7) Eschar of finger Assessment/Plan: -await mri Code(s): R23.4 - CHANGES IN SKIN TEXTURE
[2018-09-13] MEDS ORDERED: PT OWN MED DRAWER 7, Y5N ONE ×3 (09:45→22:31)
[2018-09-13] MEDS: APIXABAN 5 MG TABLET PO SCH ×2 (09:53→22:36)
[2018-09-13] MEDS: RANITIDINE HCL 150 MG/10 ML UNIT-DOSE GT SCH ×2 (09:53→22:36)
[2018-09-13] MEDS: HYDROCORTISONE 20 MG TABLET PO SCH ×2 (09:54→22:36)
[2018-09-13] MEDS: DULoxetine HCL 20 MG CAPSULE.DR (FP) PO SCH ×2 (09:55→22:36)
[2018-09-13] MEDS: MYCOPHENOLATE SODIUM 360 MG TABLET.DR PO SCH ×2 (09:55→22:36)
[2018-09-13] MEDS: TACROLIMUS ANHYDROUS 1 MG CAPSULE PO SCH ×2 (09:56→22:36)
--- NOTE | 2018-09-13 12:41 | PN ---
Progress Note, Physician History of Present Illness: Pt seen and examined at bedside. He is awake and appears comfortable. - Current Medication List Current Medications: Active Medications Acetaminophen (Tylenol -) 650 mg PO Q4H PRN PRN Reason: FEVER Apixaban (Eliquis -) 5 mg PO BID [facility] Last Admin: 09/13/18 09:53 Dose: 5 mg Aspirin (Asa -) 81 mg PO [facility] Last Admin: 09/12/18 21:40 Dose: 81 mg Atorvastatin Calcium (Lipitor -) 80 mg PO [facility] Last Admin: 09/12/18 21:40 Dose: 80 mg Duloxetine HCl (Cymbalta -) 20 mg PO BID [facility] Last Admin: 09/13/18 09:55 Dose: 20 mg Hydrocortisone (Cortef -) 20 mg PO BID [facility] Last Admin: 09/13/18 09:54 Dose: 20 mg IV Flush (Picc Line Flush) 8 ml IVPUSH PRN PRN PRN Reason: Protocol Vancomycin HCl (Vancomycin (Pre-Docked)) 1,000 mg in 250 mls @ 166.667 mls/hr IVPB DAILY@1400 [facility]; Protocol Last Admin: 09/12/18 13:10 Dose: 166.667 mls/hr Insulin Aspart (Novolog Vial Sliding Scale -) 1 vial SQ [facility]; Protocol Last Admin: 09/13/18 06:34 Dose: Not Given Insulin Detemir (Levemir Vial) 30 units SQ [facility] Last Admin: 09/12/18 21:45 Dose: 30 units Mycophenolate Sodium (Mycophenolic Acid) 360 mg PO BID [facility] Last Admin: 09/13/18 09:55 Dose: 360 mg Oxycodone HCl (Roxicodone -) 5 mg PO Q6H PRN PRN Reason: PAIN LEVEL 7 - 10 Ranitidine HCl (Zantac Oral Solution -) 150 mg GT BID [facility] Last Admin: 09/13/18 09:53 Dose: 150 mg Tacrolimus (Prograf) 1 mg PO BID [facility] Last Admin: 09/13/18 09:56 Dose: 1 mg Tamsulosin HCl (Flomax -) 0.4 mg PO [facility] Last Admin: 09/12/18 21:41 Dose: 0.4 mg - Objective Vital Signs: Vital Signs Temperature 98.2 F 09/13/18 10:00 Pulse Rate 80 09/13/18 12:00 Respiratory Rate 18 09/13/18 12:00 Blood Pressure 127/45 L 09/13/18 12:00 O2 Sat by Pulse Oximetry (%) 94 L 09/13/18 09:00 Constitutional: Yes: Calm Eyes: Yes: Conjunctiva Clear HENT: Yes: Atraumatic Neck: Yes: Supple Cardiovascular: Yes: S1, S2 Respiratory: Yes: CTA Bilaterally Gastrointestinal: Yes: Soft Genitourinary: Yes: Other (graft soft and non tender) Edema: Yes Edema: LLE: Trace, RLE: Trace Neurological: Yes: Confusion Labs: CBC, BMP 09/13/18 05:30 09/13/18 05:30 INR, PTT INR 1.01 (0.83-1.09) 09/04/18 16:15 Problem List - Problems (1) Change in mental status Code(s): R41.82 - ALTERED MENTAL STATUS, UNSPECIFIED Qualifiers: Altered mental status type: delirium Qualified Code(s): R41.0 - Disorientation, unspecified (2) Hypoglycemia Code(s): E16.2 - HYPOGLYCEMIA, UNSPECIFIED (3) Kidney transplant recipient Code(s): Z94.0 - KIDNEY TRANSPLANT STATUS Assessment/Plan Current Medications Generic Name Dose Route Start Last Admin Trade Name Freq PRN Reason Stop Dose Admin Acetaminophen 650 mg 09/11/18 11:21 Tylenol - PO Q4H PRN FEVER Apixaban 5 mg 09/11/18 22:00 09/13/18 09:53 Eliquis - PO 5 mg BID [facility] Administration Aspirin 81 mg 09/11/18 22:00 09/12/18 21:40 Asa - PO 81 mg HS [facility] Administration Atorvastatin Calcium 80 mg 09/11/18 22:00 09/12/18 21:40 Lipitor - PO 80 mg HS [facility] Administration Duloxetine HCl 20 mg 09/11/18 22:00 09/13/18 09:55 Cymbalta - PO 20 mg BID [facility] Administration Hydrocortisone 20 mg 09/12/18 10:00 09/13/18 09:54 Cortef - PO 20 mg BID [facility] Administration IV Flush 8 ml 09/11/18 11:21 Picc Line Flush IVPUSH PRN PRN Protocol Vancomycin HCl 1,000 mg in 250 mls @ 166.667 mls/hr 09/11/18 14:00 10/23/18 13:10 Vancomycin (Pre-Docked) IVPB 166.667 mls/hr DAILY@1400 [facility] Administration Protocol Insulin Aspart 1 vial 09/11/18 16:30 09/13/18 06:34 Novolog Vial Sliding Scale - SQ Not Given ACHS [facility] Protocol Insulin Detemir 30 units 09/11/18 22:00 09/12/18 21:45 Levemir Vial SQ 30 units HS [facility] Administration Mycophenolate Sodium 360 mg 09/11/18 22:00 09/13/18 09:55 Mycophenolic Acid PO 360 mg BID [facility] Administration Oxycodone HCl 5 mg 09/12/18 12:42 Roxicodone - PO Q6H PRN PAIN LEVEL 7 - 10 Ranitidine HCl 150 mg 09/11/18 22:00 09/13/18 09:53 Zantac Oral Solution - GT 150 mg BID [facility] Administration Tacrolimus 1 mg 09/12/18 10:00 09/13/18 09:56 Prograf PO 1 mg BID [facility] Administration Tamsulosin HCl 0.4 mg 09/11/18 22:00 09/12/18 21:41 Flomax - PO 0.4 mg HS [facility] Administration Laboratory Tests 09/06/18 09/09/18 09/11/18 14:00 05:30 07:10 Tacrolimus 8.2 2.8 1.9 L Impression 1. CKD 2. kidney transplant 3. DM with labile blood pressure 4. hx of syncope 5. HTN 6. hyperlipidemia 7. CHF 8. acute resp failure s/p intubation 9. Hx DVT - pt has IVC filter Plan - increased prograf dose (1.9 dies not reflect the change) - repeat prograf level - renal function is stable - will need better glucose control - avoid nsaids and nephrotoxins - monitor pulse ox Dr Perez
--- NOTE | 2018-09-13 12:45 | PN ---
Progress Note (short form) - Note Progress Note: alert NAD MRI no osteomyelitis Vital Signs Period Temp Pulse Resp BP Sys/Mendoza Pulse Ox Last 24 Hr 98.2 F-98.6 F 70-81 18-22 109-141/37-83 94-95 cor-rrr lungs clear abd soft,nt ext trace edema MRI no osteomyelitis CBC, BMP 09/13/18 05:30 09/13/18 05:30 Microbiology 09/06/18 09:00 Blood - Peripheral Venous Blood Culture - Final NO GROWTH AFTER 5 DAYS INCUBATION 09/06/18 09:00 Blood - Peripheral Venous Blood Culture - Final NO GROWTH AFTER 5 DAYS INCUBATION 09/07/18 09:00 Sputum - Expectorated Gram Stain - Final 09/07/18 09:00 Sputum - Expectorated Sputum Culture - Final S Aureus 09/04/18 16:15 Blood - Peripheral Venous Blood Culture - Final Staph Hominis Sub Sp Hominis 09/04/18 16:40 Blood - Peripheral Venous Blood Culture - Final S Aureus 09/05/18 18:30 Urine For Antigen Detection Legionella Antigen - Final 09/05/18 18:30 Urine For Antigen Detection Streptococcus pneumoniae Antigen (M - Final 09/06/18 06:00 Urine For Antigen Detection Legionella Antigen - Final 09/06/18 06:00 Urine For Antigen Detection Streptococcus pneumoniae Antigen (M - Final 09/04/18 18:32 Urine - Urine - Catheterized Urine Culture - Final NO GROWTH OBTAINED cxray cardiomegaly, congestion a/p sepsis-MRSA bacteremia-?finger ulcer continue vancomycin 1 gram daily- vancomycin trough today will require snf iv antibiotics-day #8 of 28 s/p renal transplant renal function improved poorly controlled DM Problem List - Problems (1) Sepsis Code(s): A41.9 - SEPSIS, UNSPECIFIED ORGANISM (2) Acute respiratory failure Code(s): J96.00 - ACUTE RESPIRATORY FAILURE, UNSP W HYPOXIA OR HYPERCAPNIA (3) PNA (pneumonia) Code(s): J18.9 - PNEUMONIA, UNSPECIFIED ORGANISM Qualifiers: Qualified Code(s): J18.9 - Pneumonia, unspecified organism (4) Bacteremia Code(s): R78.81 - BACTEREMIA (5) History of MRSA infection Code(s): Z86.14 - PERSONAL HISTORY OF METHICILLIN RESIS STAPH INFECTION (6) H/O kidney transplant Code(s): Z94.0 - KIDNEY TRANSPLANT STATUS (7) DM2 (diabetes mellitus, type 2) Code(s): E11.9 - TYPE 2 DIABETES MELLITUS WITHOUT COMPLICATIONS
--- NOTE | 2018-09-13 13:19 | PN ---
Teaching Attending Note Name of Resident: Mary Kellogg ATTENDING PHYSICIAN STATEMENT I saw and evaluated the patient. I reviewed the resident's note and discussed the case with the resident. I agree with the resident's findings and plan as documented. SUBJECTIVE: Pt seen and examined in the ICU. Denies shortness of breath or chest pain. No fevers recorded. OBJECTIVE: Vital Signs Period Temp Pulse Resp BP Sys/Mendoza Pulse Ox Last 24 Hr 98.2 F-98.5 F 70-81 18-22 109-141/37-83 94-95 Intake & Output 09/10/18 09/11/18 09/12/18 09/13/18 23:59 23:59 23:59 23:59 Intake Total 1340 1650 635 60 Output Total 2000 300 Balance -660 1350 635 60 Weight 79.152 kg 78.245 kg 78.109 kg Gen: NAD at rest Heart: RRR Lung: decreased breath sounds at the bases Abd: soft, nontender Ext: no edema CBC, BMP 09/13/18 05:30 09/13/18 05:30 Active Medications Acetaminophen (Tylenol -) 650 mg PO Q4H PRN PRN Reason: FEVER Apixaban (Eliquis -) 5 mg PO BID [facility] Last Admin: 09/13/18 09:53 Dose: 5 mg Aspirin (Asa -) 81 mg PO [facility] Last Admin: 09/12/18 21:40 Dose: 81 mg Atorvastatin Calcium (Lipitor -) 80 mg PO HS [facility] Last Admin: 09/12/18 21:40 Dose: 80 mg Duloxetine HCl (Cymbalta -) 20 mg PO BID [facility] Last Admin: 09/13/18 09:55 Dose: 20 mg Hydrocortisone (Cortef -) 20 mg PO BID [facility] Last Admin: 09/13/18 09:54 Dose: 20 mg IV Flush (Picc Line Flush) 8 ml IVPUSH PRN PRN PRN Reason: Protocol Vancomycin HCl (Vancomycin (Pre-Docked)) 1,000 mg in 250 mls @ 166.667 mls/hr IVPB DAILY@1400 [facility]; Protocol Last Admin: 09/12/18 13:10 Dose: 166.667 mls/hr Insulin Aspart (Novolog Vial Sliding Scale -) 1 vial SQ [facility]; Protocol Last Admin: 09/13/18 06:34 Dose: Not Given Insulin Detemir (Levemir Vial) 30 units SQ HS [facility] Last Admin: 09/12/18 21:45 Dose: 30 units Mycophenolate Sodium (Mycophenolic Acid) 360 mg PO BID [facility] Last Admin: 09/13/18 09:55 Dose: 360 mg Oxycodone HCl (Roxicodone -) 5 mg PO Q6H PRN PRN Reason: PAIN LEVEL 7 - 10 Ranitidine HCl (Zantac Oral Solution -) 150 mg GT BID [facility] Last Admin: 09/13/18 09:53 Dose: 150 mg Tacrolimus (Prograf) 1 mg PO BID [facility] Last Admin: 09/13/18 09:56 Dose: 1 mg Tamsulosin HCl (Flomax -) 0.4 mg PO HS [facility] Last Admin: 09/12/18 21:41 Dose: 0.4 mg ASSESSMENT AND PLAN: Acute Hypoxic Respiratory failure improved MRSA Bacteremia Finger Abscess Septic Shock improved Lactic Acidosis resolved Acute Kidney Injury improving s/p Renal Transplant on immunosuppressants Hypoglycemia LV Diastolic Dysfunction HTN Hyperlipidemia h/o DVT - continue antibiotics - monitor urine output, creatinine - taper off stress dose steroids - continue anticoagulation - aspiration precautions - DVT/GI prophylaxis - can monitor on floor
[2018-09-13] MEDS: VANCOMYCIN 1 GRAM (PRE-DOCKED) 1,000 MG/250 ML BAG IVPB SCH (14:50)
--- NOTE | 2018-09-13 14:50 | PN ---
Physical Exam: SUBJECTIVE: Patient seen and examined at bedside this morning. No acute events overnight. Patient reports right finger pain when asked. Advised patient to ask nurse for pain medications when he's in pain. OBJECTIVE: Vital Signs Period Temp Pulse Resp BP Sys/Mendoza Pulse Ox Last 24 Hr 98.2 F-98.5 F 70-81 18-22 109-141/37-83 94-95 GENERAL: The patient is awake, alert, and fully oriented, in no acute distress. HEAD: Normal with no signs of trauma. EYES: PERRLA, EOMI, sclera anicteric, conjunctiva clear. ENT: Ears normal, nares patent, moist mucous membranes. NECK: Trachea midline, full range of motion, supple. LUNGS: Breath sounds equal, clear to auscultation bilaterally. HEART: Regular rate and rhythm, S1, S2 without murmur, rub or gallop. ABDOMEN: Soft, nontender, nondistended, normoactive bowel sounds. EXTREMITIES: 2+ pulses, warm, well-perfused, no edema. SKIN: Warm, dry, normal turgor. +eschar of fourth finger, right hand Laboratory Results - last 24 hr 09/11/18 09/12/18 09/12/18 07:10 17:34 21:45 WBC RBC Hgb Hct MCV MCH MCHC RDW Plt Count MPV Sodium Potassium Chloride Carbon Dioxide Anion Gap BUN Creatinine Creat Clearance w eGFR POC Glucometer 173.18594 385.58267 Random Glucose Calcium Phosphorus Magnesium Vancomycin Pre-Dose Tacrolimus 1.9 L 09/13/18 09/13/18 09/13/18 05:30 05:30 06:25 WBC 10.8 H RBC 3.95 L Hgb 11.3 L Hct 34.8 L MCV 88.0 MCH 28.5 MCHC 32.4 RDW 16.4 H Plt Count 215 MPV 7.5 Sodium 138 Potassium 4.9 Chloride 102 Carbon Dioxide 30 Anion Gap 6 L BUN 24 H Creatinine 0.9 Creat Clearance w eGFR > 60 POC Glucometer 133.09785 Random Glucose 117 H Calcium 7.7 L Phosphorus 2.2 L Magnesium 1.9 Vancomycin Pre-Dose Tacrolimus 09/13/18 13:48 WBC RBC Hgb Hct MCV MCH MCHC RDW Plt Count MPV Sodium Potassium Chloride Carbon Dioxide Anion Gap BUN Creatinine Creat Clearance w eGFR POC Glucometer Random Glucose Calcium Phosphorus Magnesium Vancomycin Pre-Dose 11.7 L Tacrolimus Active Medications Generic Name Dose Route Start Last Admin Trade Name Freq PRN Reason Stop Dose Admin Acetaminophen 650 mg 09/11/18 11:21 Tylenol - PO Q4H PRN FEVER Apixaban 5 mg 09/11/18 22:00 09/13/18 09:53 Eliquis - PO 5 mg BID [facility] Administration Aspirin 81 mg 09/11/18 22:00 09/12/18 21:40 Asa - PO 81 mg HS [facility] Administration Atorvastatin Calcium 80 mg 09/11/18 22:00 09/12/18 21:40 Lipitor - PO 80 mg HS [facility] Administration Duloxetine HCl 20 mg 09/11/18 22:00 09/13/18 09:55 Cymbalta - PO 20 mg BID [facility] Administration Hydrocortisone 20 mg 09/12/18 10:00 09/13/18 09:54 Cortef - PO 20 mg BID [facility] Administration IV Flush 8 ml 09/11/18 11:21 Picc Line Flush IVPUSH PRN PRN Protocol Vancomycin HCl 1,000 mg in 250 mls @ 166.667 mls/hr 09/11/18 14:00 09/12/18 13:10 Vancomycin (Pre-Docked) IVPB 166.667 mls/hr DAILY@1400 [facility] Administration Protocol Insulin Aspart 1 vial 09/11/18 16:30 09/13/18 06:34 Novolog Vial Sliding Scale - SQ Not Given [facility] Protocol Insulin Detemir 30 units 09/11/18 22:00 09/12/18 21:45 Levemir Vial SQ 30 units HS [facility] Administration Mycophenolate Sodium 360 mg 09/11/18 22:00 09/13/18 09:55 Mycophenolic Acid PO 360 mg BID [facility] Administration Oxycodone HCl 5 mg 09/12/18 12:42 Roxicodone - PO Q6H PRN PAIN LEVEL 7 - 10 Ranitidine HCl 150 mg 09/11/18 22:00 09/13/18 09:53 Zantac Oral Solution - GT 150 mg BID [facility] Administration Tacrolimus 1 mg 09/12/18 10:00 09/13/18 09:56 Prograf PO 1 mg BID [facility] Administration Tamsulosin HCl 0.4 mg 09/11/18 22:00 09/12/18 21:41 Flomax - PO 0.4 mg HS [facility] Administration ASSESSMENT/PLAN: Patient is a 78 year old male with past medical history of IDDM, HTN, CAD s/p OH s/p CABG, CHF, ESRD on HD previously now s/p kidney transplant (2008) on immunosuppression, previous DVT on apixaban, multiple previous hospitalizations and intubations for hypoglycemic episodes, presented to the ED with AMS/lethargy , hypoglycemia, and respiratory distress as well as hypotension. #Cardiovascular 1) Septic shock secondary to MRSA bacteremia -hypotension resolved, back to baseline mental status -Echo with normal EF -Continue ASA, Atorvastatin #Pulmonology -self-extubated -saturating well on room air -Duonebs q6h PRN #Infectious disease 1) Septic shock secondary to MRSA bacteremia likely 2/2 ?right finger wound -leukocytosis resolved, afebrile, lactic acidosis resolved -Blood cultures (09/04/18) - +MRSA -Repeat cultures (09/07/18) - +MRSA -suspected source right finger wound -ID (Dr. Ziegler) consulted. Recommendations appreciated. -Continue vancomycin 1gm daily -Will require long-term IV antibiotics -MRI of right finger - no osteomyelitis -Will need long term care phlebotomist IV vancomycin day 07/18 -PICC line insertion prior to discharge. -Morphine PRN for pain #Endocrinology 1)DM -will continue to monitor -continue home Levemir 30 units -Insulin sliding scale implemented -BGM ACHS -Endocrinology (Dr. Villela) consulted. #Gastroenterology -aspiration precautions -Speech/swallow evaluation. Recommendations appreciated. -Tolerating dysphagia minced diet with nectar thick liquids -Barium swallow pending #Nephrology 1)Acute kidney injury on CKD: resolved -history of renal transplant -BUN/Cr wnl today -monitor I/O -UA negative, Ucx negative -Nephrology (Dr. Perez) consulted. Recommendations appreciated. -hold IVF -Tacrolimus level - 1.9 -increased prograf dose (1.9 does not reflect the change) -repeat prograf level -renal function is stable -will need better glucose control -avoid nsaids and nephrotoxins -monitor pulse ox -Transplant US completed - no blood flow compromise or obvious abnormalities. 2)s/p renal transplant, on immunosuppressived -Hydrocortisone 50mg IV push BID -Mycophenoloate 360mg BID -Tacrolimus 1 mg daily, 0.5mg HS #Neurology 1) Altered mental status -Sedation off after self-extubation. -Mental status apparently at baseline -Neurology following ( Doris) -Per daughter, has been increasingly "confused" over the past few years. #FEN -not on any standing fluids -electrolytes wnl, routine cmp monitoring -dysphagia minced diet with nectar thick liquids #Prophylaxis 1)DVT -Eliquis 5 mg BID 2)GI -Ranitidine 150mg GT BID #[facility] -For PICC line insertion prior to discharge Visit type - Emergency Visit Emergency Visit: Yes ED Registration Date: 09/04/18 Care time: The patient presented to the Emergency Department on the above date and was hospitalized for further evaluation of their emergent condition. - New Patient This patient is new to me today: Yes Date on this admission: 09/13/18 - Critical Care Critical Care patient: Yes Total Critical Care Time (in minutes): 45 Critical Care Statement: The care of this patient involved high complexity decision making to prevent further life threatening deterioration of the patient 's condition and/or to evaluate & treat vital organ system(s) failure or risk of failure.
[2018-09-13] MEDS ORDERED: INSULIN (NOVOLOG) ASPART 100 UNITS/ML 10ML VIAL ONE (20:58)
[2018-09-13] MEDS: TAMSULOSIN HCL 0.4 MG CAP PO SCH (22:36)
[2018-09-13] MEDS: INSULIN (LEVEMIR) 100 UNITS/ML UNITS SQ SCH ×2 (22:36→22:43)
[2018-09-13] MEDS: ATORVASTATIN CA 80 MG TABLET (FP) PO SCH (22:36)
[2018-09-13] MEDS: ASPIRIN 81 MG CHEWABLE TABLETS PO SCH (22:36)
--- NOTE | 2018-09-13 22:54 | PN ---
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 - Current Medication List Current Medications: Active Medications Acetaminophen (Tylenol -) 650 mg PO Q4H PRN PRN Reason: FEVER Apixaban (Eliquis -) 5 mg PO BID [facility] Last Admin: 09/13/18 22:36 Dose: 5 mg Aspirin (Asa -) 81 mg PO HS [facility] Last Admin: 09/13/18 22:36 Dose: 81 mg Atorvastatin Calcium (Lipitor -) 80 mg PO HS [facility] Last Admin: 09/13/18 22:36 Dose: 80 mg Duloxetine HCl (Cymbalta -) 20 mg PO BID [facility] Last Admin: 09/13/18 22:36 Dose: 20 mg Hydrocortisone (Cortef -) 20 mg PO BID [facility] Last Admin: 09/13/18 22:36 Dose: 20 mg IV Flush (Picc Line Flush) 8 ml IVPUSH PRN PRN PRN Reason: Protocol Vancomycin HCl (Vancomycin (Pre-Docked)) 1,000 mg in 250 mls @ 166.667 mls/hr IVPB DAILY@1400 [facility]; Protocol Last Admin: 09/13/18 14:50 Dose: 166.667 mls/hr Insulin Aspart (Novolog Vial Sliding Scale -) 1 vial SQ TIDAC [facility]; Protocol Insulin Detemir (Levemir Vial) 25 units SQ AM [facility] Mycophenolate Sodium (Mycophenolic Acid) 360 mg PO BID [facility] Last Admin: 09/13/18 22:36 Dose: 360 mg Oxycodone HCl (Roxicodone -) 5 mg PO Q6H PRN PRN Reason: PAIN LEVEL 7 - 10 Ranitidine HCl (Zantac Oral Solution -) 150 mg GT BID [facility] Last Admin: 09/13/18 22:36 Dose: 150 mg Tacrolimus (Prograf) 1 mg PO BID [facility] Last Admin: 09/13/18 22:36 Dose: 1 mg Tamsulosin HCl (Flomax -) 0.4 mg PO [facility] Last Admin: 09/13/18 22:36 Dose: 0.4 mg - Objective Vital Signs: Vital Signs Temperature 98.9 F 09/13/18 20:30 Pulse Rate 79 09/13/18 20:30 Respiratory Rate 20 09/13/18 20:30 Blood Pressure 130/41 L 09/13/18 20:30 O2 Sat by Pulse Oximetry (%) 94 L 09/13/18 09:00 Constitutional: Yes: Well Nourished, Moderate Distress Eyes: Yes: WNL HENT: Yes: WNL Neck: Yes: WNL Cardiovascular: Yes: Tachycardia Respiratory: Yes: Diminished, SOB, Tachypnea Musculoskeletal: Yes: Back Pain, Muscle Weakness Extremities: Yes: Delayed Capillary Refill, Pallor Edema: Yes Peripheral Pulses WNL: Yes Wound/Incision: Yes: Clean/Dry Neurological: Yes: Alert, Unsteady Gait, Weakness Labs: CBC, BMP 09/13/18 05:30 09/13/18 05:30 INR, PTT INR 1.01 (0.83-1.09) 09/04/18 16:15 Problem List - Problems (1) Acute metabolic encephalopathy Code(s): G93.41 - METABOLIC ENCEPHALOPATHY (2) Bacteremia Code(s): R78.81 - BACTEREMIA (3) Change in mental status Code(s): R41.82 - ALTERED MENTAL STATUS, UNSPECIFIED Qualifiers: Altered mental status type: delirium Qualified Code(s): R41.0 - Disorientation, unspecified (4) Hypoglycemia Code(s): E16.2 - HYPOGLYCEMIA, UNSPECIFIED (5) Kidney transplant recipient Code(s): Z94.0 - KIDNEY TRANSPLANT STATUS (6) CHUCK (acute kidney injury) Code(s): N17.9 - ACUTE KIDNEY FAILURE, UNSPECIFIED (7) Acute respiratory failure Code(s): J96.00 - ACUTE RESPIRATORY FAILURE, UNSP W HYPOXIA OR HYPERCAPNIA (8) Acute type 2 diabetes mellitus with manifestations Code(s): E11.8 - TYPE 2 DIABETES MELLITUS WITH UNSPECIFIED COMPLICATIONS Assessment/Plan Current Active Problems Acute metabolic encephalopathy (Acute) Adrenal insufficiency (Acute) Bacteremia (Acute) Change in mental status (Acute) Eschar of finger (Acute) Hypoglycemia (Acute) Kidney transplant recipient (Chronic) Current Active Problems Abnormal Lab Results 09/11/18 09/13/18 09/13/18 07:10 05:30 05:30 WBC 10.8 H RBC 3.95 L Hgb 11.3 L Hct 34.8 L RDW 16.4 H Anion Gap 6 L BUN 24 H Random Glucose 117 H Calcium 7.7 L Phosphorus 2.2 L Vancomycin Pre-Dose Tacrolimus 1.9 L 09/13/18 13:48 WBC RBC Hgb Hct RDW Anion Gap BUN Random Glucose Calcium Phosphorus Vancomycin Pre-Dose 11.7 L Tacrolimus Laboratory Results - last 24 hr 09/11/18 09/13/18 09/13/18 07:10 05:30 05:30 WBC 10.8 H RBC 3.95 L Hgb 11.3 L Hct 34.8 L MCV 88.0 MCH 28.5 MCHC 32.4 RDW 16.4 H Plt Count 215 MPV 7.5 Sodium 138 Potassium 4.9 Chloride 102 Carbon Dioxide 30 Anion Gap 6 L BUN 24 H Creatinine 0.9 Creat Clearance w eGFR > 60 POC Glucometer Random Glucose 117 H Calcium 7.7 L Phosphorus 2.2 L Magnesium 1.9 Vancomycin Pre-Dose Tacrolimus 1.9 L 09/13/18 09/13/18 09/13/18 06:25 13:48 17:08 WBC RBC Hgb Hct MCV MCH MCHC RDW Plt Count MPV Sodium Potassium Chloride Carbon Dioxide Anion Gap BUN Creatinine Creat Clearance w eGFR POC Glucometer [id number] 340.74339 Random Glucose Calcium Phosphorus Magnesium Vancomycin Pre-Dose 11.7 L Tacrolimus 09/13/18 20:25 WBC RBC Hgb Hct MCV MCH MCHC RDW Plt Count MPV Sodium Potassium Chloride Carbon Dioxide Anion Gap BUN Creatinine Creat Clearance w eGFR POC Glucometer 294 Random Glucose Calcium Phosphorus Magnesium Vancomycin Pre-Dose Tacrolimus plan; bgm qacmeal avoid night time doses for early,am hypoglycemia levemir 25 units am
[2018-09-14] MEDS: INSULIN SLIDING SCALE (NOVOLOG) 1 VIAL SQ SCH ×2 (06:26→12:07)
[2018-09-14] MEDS ORDERED: INSULIN (LEVEMIR) 100 UNITS/ML UNITS SQ SCH (07:00)
[2018-09-14 07:16] LABS: HEMATOCRIT 33.3 % (35.4-49); HEMOGLOBIN 10.7 GM/dL (11.7-16.9); MCH 28.3 pg (25.7-33.7); MCHC 32.1 g/dl (32.0-35.9); MEAN CELL VOLUME 88.2 fl (80-96); MEAN PLT VOLUME 7.4 fl (7.5-11.1); PLATELET COUNT 209 K/MM3 (134-434); RBC 3.78 M/mm3 (4.00-5.60); RDW 15.6 % (11.9-15.9); WHITE BLOOD COUNT 9.3 K/mm3 (4.0-10.0)
[2018-09-14 07:42] LABS: ALBUMIN 2.5 g/dl (3.4-5.0); ALK PHOS 132 U/L (45-117); ANION GAP 7 MMOL/L (8-16); BILIRUBIN,TOTAL 0.6 mg/dL (0.2-1); BLOOD UREA NITROGEN 29 mg/dL (7-18); CALCIUM 7.7 mg/dL (8.5-10.1); CHLORIDE 97 mmol/L (98-107); CO2 30 mmol/L (21-32); CREATININE 1.2 mg/dL (0.55-1.3); MAGNESIUM 2.1 mg/dL (1.8-2.4); PHOSPHOROUS 2.9 mg/dL (2.5-4.9); POTASSIUM 5.1 mmol/L (3.5-5.1); SGOT/AST 54 U/L (15-37); SGPT/ALT 126 U/L (13-61); SODIUM 134 mmol/L (136-145); TOT PROT 4.7 g/dl (6.4-8.2)
[2018-09-14 07:57] LABS: GLUCOSE,RANDOM 376 mg/dL (74-106)
[2018-09-14] MEDS ORDERED: PT OWN MED DRAWER 7, Y5N ONE (09:25)
[2018-09-14] MEDS: RANITIDINE HCL 150 MG/10 ML UNIT-DOSE GT SCH (09:27)
[2018-09-14] MEDS: APIXABAN 5 MG TABLET PO SCH (09:27)
[2018-09-14] MEDS: DULoxetine HCL 20 MG CAPSULE.DR (FP) PO SCH (09:28)
[2018-09-14] MEDS: HYDROCORTISONE 20 MG TABLET PO SCH (09:28)
[2018-09-14] MEDS: TACROLIMUS ANHYDROUS 1 MG CAPSULE PO SCH (09:28)
[2018-09-14] MEDS: MYCOPHENOLATE SODIUM 360 MG TABLET.DR PO SCH (09:28)
[2018-09-14] MEDS ORDERED: PICC LINE 8 ML FLUSH PROTOCOL IVPUSH PRN (10:07)
--- NOTE | 2018-09-14 10:19 | PN ---
Progress Note (short form) - Note Progress Note: PULMONARY No specific complaints. Denies shortness of breath or chest pain. No fevers recorded. Vital Signs Period Temp Pulse Resp BP Sys/Mendoza Pulse Ox Last 24 Hr 98.2 F-98.9 F 70-98 18-20 127-162/40-56 Gen: NAD at rest Heart: RRR Lung: decreased breath sounds at the bases Abd: soft, nontender Ext: no edema CBC, BMP 09/14/18 06:00 09/14/18 06:00 Active Medications Acetaminophen (Tylenol -) 650 mg PO Q4H PRN PRN Reason: FEVER Apixaban (Eliquis -) 5 mg PO BID [facility] Last Admin: 09/14/18 09:27 Dose: 5 mg Aspirin (Asa -) 81 mg PO [facility] Last Admin: 09/13/18 22:36 Dose: 81 mg Atorvastatin Calcium (Lipitor -) 80 mg PO HS [facility] Last Admin: 09/13/18 22:36 Dose: 80 mg Duloxetine HCl (Cymbalta -) 20 mg PO BID [facility] Last Admin: 09/14/18 09:28 Dose: 20 mg Hydrocortisone (Cortef -) 20 mg PO BID [facility] Last Admin: 09/14/18 09:28 Dose: 20 mg IV Flush (Picc Line Flush) 8 ml IVPUSH PRN PRN PRN Reason: Protocol IV Flush (Picc Line Flush) 8 ml IVPUSH PRN PRN PRN Reason: Protocol Vancomycin HCl (Vancomycin (Pre-Docked)) 1,000 mg in 250 mls @ 166.667 mls/hr IVPB DAILY@1400 [facility]; Protocol Last Admin: 09/13/18 14:50 Dose: 166.667 mls/hr Insulin Aspart (Novolog Vial Sliding Scale -) 1 vial SQ TIDAC [facility]; Protocol Last Admin: 09/14/18 06:26 Dose: 7 units Insulin Detemir (Levemir Vial) 25 units SQ AM [facility] Last Admin: 09/14/18 06:25 Dose: 25 units Mycophenolate Sodium (Mycophenolic Acid) 360 mg PO BID [facility] Last Admin: 09/14/18 09:28 Dose: 360 mg Oxycodone HCl (Roxicodone -) 5 mg PO Q6H PRN PRN Reason: PAIN LEVEL 7 - 10 Ranitidine HCl (Zantac Oral Solution -) 150 mg GT BID [facility] Last Admin: 09/14/18 09:27 Dose: 150 mg Tacrolimus (Prograf) 1 mg PO BID [facility] Last Admin: 09/14/18 09:28 Dose: 1 mg Tamsulosin HCl (Flomax -) 0.4 mg PO HS [facility] Last Admin: 09/13/18 22:36 Dose: 0.4 mg A/P Acute Hypoxic Respiratory failure improved MRSA Bacteremia Finger Abscess Septic Shock improved Lactic Acidosis resolved Acute Kidney Injury improving s/p Renal Transplant on immunosuppressants Hypoglycemia LV Diastolic Dysfunction HTN Hyperlipidemia h/o DVT - complete antibiotic course - monitor urine output, creatinine - taper off stress dose steroids - continue anticoagulation - aspiration precautions - DVT/GI prophylaxis
--- NOTE | 2018-09-14 10:28 | DS ---
Physical Examination Vital Signs: Vital Signs Temperature 98.2 F 09/14/18 06:00 Pulse Rate 70 09/14/18 06:00 Respiratory Rate 20 09/14/18 06:00 Blood Pressure 162/45 L 09/14/18 06:00 O2 Sat by Pulse Oximetry (%) 94 L 09/13/18 09:00 Findings/Remarks: READY FOR DC TO SNF Constitutional: Yes: No Distress Eyes: Yes: WNL HENT: Yes: WNL Neck: Yes: WNL Cardiovascular: Yes: WNL Respiratory: Yes: WNL Gastrointestinal: Yes: WNL Musculoskeletal: Yes: Muscle Weakness Extremities: Yes: Deformity, Erythema Edema: No Peripheral Pulses WNL: Yes Integumentary: Yes: Erythema, Pressure Ulcer, Skin Tear Wound/Incision: Yes: Dressing Removed Neurological: Yes: Confusion, Pre-Existing Deficit ...Motor Strength: LUE, LLE, RUE, RLE Psychiatric: Yes: Other Labs: CBC, BMP 09/14/18 06:00 09/14/18 06:00 Discharge Summary Reason For Visit: ACUTE RESPIATORY FAILURE Current Active Problems Acute metabolic encephalopathy (Acute) Adrenal insufficiency (Acute) Bacteremia (Acute) Change in mental status (Acute) Eschar of finger (Acute) Hypoglycemia (Acute) Kidney transplant recipient (Chronic) Procedures: Principal: MRI Hospital Course: TREATED FOR SEPSIS, URINE VS ESCHAR TO FINGER, ACUTE METABOLIC ENCEPHALOPATHY WITH DYSPHAGIA ON IV ABX, RENAL TREANSPLANT MEDS CONTINUED WILL NEED VANCO TROUGH LEVEL EVERY 2 DAYS Condition: Improved - Instructions Diet, Activity, Other Instructions: VANCOMYCIN FOR 20 DAYS 250MG IV VIA PICC LINE CHECK VANCO TROUGH EVERY 48HOURS WILL NEED CONSULT WITH DR GE INFECTIOUS DISEASE IN 1-[address] PYLE ENDOCRINE CONSULT IN 1 WEEK MONITOR BGM AC/HS COREG 25MG BID RESTARTED HOLD FOR SBP LESS THAN 110MMHH OR HR LESS THAN 60/MIN HYDRALAZINE IS ON HOLD FOR NOW, IG BP ELEVATES RESTART 10MG BID DYSPHAGIA DIET FOLLOW SPEECH AND SWALLOW RECOMMENDATIONS PT EVAL OOB TO CHAIR PREDNISONE AND PROGRAF RESTARTED AND MUST BE CONTINUED FOR RENAL TRANSPLANT Referrals: Gt Villela MD [Primary Care Provider] - Disposition: LONG TERM FACILITY - Home Medications Comprehensive Discharge Medication List: Ambulatory Orders Acetaminophen [Tylenol .Regular Strength -] 650 mg PO Q4H PRN tablet 11/29/17 Albuterol 2.5/Ipratropium 0.5 [Duoneb -] 1 amp NEB QID 02/08/18 Amlodipine Besylate [Norvasc -] 10 mg PO DAILY #30 tablet 05/19/18 Apixaban [Eliquis] 5 mg PO BID #60 tablet 05/19/18 Aspirin [Jena Chewable Aspirin] 81 mg PO HS #30 tab.chew 05/19/18 Atorvastatin Ca [Lipitor] 80 mg PO HS #60 tablet 05/19/18 Duloxetine HCl [Cymbalta] 20 mg PO BID #60 capsule. 05/19/18 Mycophenolate Sodium [Mycophenolic Acid] 360 mg PO BID #60 tablet. 05/19/18 Tacrolimus 1 mg PO BID #60 capsule 05/19/18 Tamsulosin HCl [Flomax] 0.4 mg PO HS #30 cap.er.24h 05/19/18 predniSONE [Deltasone -] 20 mg PO DAILY #30 tablet 05/24/18 Apixaban [Eliquis -] 5 mg PO BID #60 tablet 05/26/18 Carvedilol [Coreg -] 25 mg PO BID #60 tablet 09/14/18 Hydrocortisone [Cortef -] 20 mg PO BID tablet 09/14/18 Insulin (Levemir) [Levemir Vial] 25 units SQ AM units 09/14/18 Insulin (Levemir) [Levemir Vial] 30 units SQ HS units 09/14/18 Insulin Sliding Scale [Novolog Vial Sliding Scale -] 1 vial SQ TIDAC units Mycophenolate Sodium [Mycophenolic Acid] 360 mg PO BID tablet. 09/14/18 Picc Line Flush [Picc Line Flush -] 8 ml IVPUSH PRN PRN ml 09/14/18 Ranitidine Oral Solution [Zantac Oral Solution -] 150 mg GT BID cup 09/14/18 Tacrolimus Anhydrous [Prograf] 1 mg PO BID capsule 09/14/18 oxyCODONE HCL [Roxicodone -] 5 mg PO Q6H PRN tablet MDD 4 09/14/18
[2018-09-14 15:15] VITALS: BP 138/70; PULSE 84; TEMP 98.4
--- NOTE | 2018-09-14 16:26 | PN ---
Progress Note, Physician History of Present Illness: Pt seen and examined. He remains confused. - Current Medication List Current Medications: Active Medications Acetaminophen (Tylenol -) 650 mg PO Q4H PRN PRN Reason: FEVER Apixaban (Eliquis -) 5 mg PO BID [facility] Last Admin: 09/14/18 09:27 Dose: 5 mg Aspirin (Asa -) 81 mg PO [facility] Last Admin: 09/13/18 22:36 Dose: 81 mg Atorvastatin Calcium (Lipitor -) 80 mg PO [facility] Last Admin: 09/13/18 22:36 Dose: 80 mg Duloxetine HCl (Cymbalta -) 20 mg PO BID [facility] Last Admin: 09/14/18 09:28 Dose: 20 mg Hydrocortisone (Cortef -) 20 mg PO BID [facility] Last Admin: 09/14/18 09:28 Dose: 20 mg IV Flush (Picc Line Flush) 8 ml IVPUSH PRN PRN PRN Reason: Protocol IV Flush (Picc Line Flush) 8 ml IVPUSH PRN PRN PRN Reason: Protocol Vancomycin HCl (Vancomycin (Pre-Docked)) 1,000 mg in 250 mls @ 166.667 mls/hr IVPB DAILY@1400 [facility]; Protocol Last Admin: 09/13/18 14:50 Dose: 166.667 mls/hr Insulin Aspart (Novolog Vial Sliding Scale -) 1 vial SQ [facility]; Protocol Last Admin: 09/14/18 12:07 Dose: 7 units Insulin Detemir (Levemir Vial) 25 units SQ AM [facility] Last Admin: 09/14/18 06:25 Dose: 25 units Mycophenolate Sodium (Mycophenolic Acid) 360 mg PO BID [facility] Last Admin: 09/14/18 09:28 Dose: 360 mg Oxycodone HCl (Roxicodone -) 5 mg PO Q6H PRN PRN Reason: PAIN LEVEL 7 - 10 Ranitidine HCl (Zantac Oral Solution -) 150 mg GT BID [facility] Last Admin: 09/14/18 09:27 Dose: 150 mg Tacrolimus (Prograf) 1 mg PO BID [facility] Last Admin: 09/14/18 09:28 Dose: 1 mg Tamsulosin HCl (Flomax -) 0.4 mg PO [facility] Last Admin: 09/13/18 22:36 Dose: 0.4 mg - Objective Vital Signs: Vital Signs Temperature 98.4 F 09/14/18 15:13 Pulse Rate 84 09/14/18 15:13 Respiratory Rate 18 09/14/18 15:13 Blood Pressure 138/70 09/14/18 15:13 O2 Sat by Pulse Oximetry (%) 94 L 09/14/18 11:00 Constitutional: Yes: Calm Eyes: Yes: Conjunctiva Clear HENT: Yes: Atraumatic Cardiovascular: Yes: S1, S2 Respiratory: Yes: CTA Bilaterally Gastrointestinal: Yes: Normal Bowel Sounds, Soft Genitourinary: Yes: WNL Musculoskeletal: Yes: WNL Edema: No Neurological: Yes: Confusion Labs: CBC, BMP 09/14/18 06:00 09/14/18 06:00 INR, PTT INR 1.01 (0.83-1.09) 09/04/18 16:15 Problem List - Problems (1) Change in mental status Code(s): R41.82 - ALTERED MENTAL STATUS, UNSPECIFIED Qualifiers: Altered mental status type: delirium Qualified Code(s): R41.0 - Disorientation, unspecified (2) Hypoglycemia Code(s): E16.2 - HYPOGLYCEMIA, UNSPECIFIED (3) Kidney transplant recipient Code(s): Z94.0 - KIDNEY TRANSPLANT STATUS Assessment/Plan Current Medications Generic Name Dose Route Start Last Admin Trade Name Montyq PRN Reason Stop Dose Admin Acetaminophen 650 mg 09/11/18 11:21 Tylenol - PO Q4H PRN FEVER Apixaban 5 mg 09/11/18 22:00 09/14/18 09:27 Eliquis - PO 5 mg BID [facility] Administration Aspirin 81 mg 09/11/18 22:00 09/13/18 22:36 Asa - PO 81 mg HS [facility] Administration Atorvastatin Calcium 80 mg 09/11/18 22:00 09/13/18 22:36 Lipitor - PO 80 mg HS [facility] Administration Duloxetine HCl 20 mg 09/11/18 22:00 09/14/18 09:28 Cymbalta - PO 20 mg BID [facility] Administration Hydrocortisone 20 mg 09/12/18 10:00 09/14/18 09:28 Cortef - PO 20 mg BID [facility] Administration IV Flush 8 ml 09/11/18 11:21 Picc Line Flush IVPUSH PRN PRN Protocol IV Flush 8 ml 09/14/18 10:07 Picc Line Flush IVPUSH PRN PRN Protocol Vancomycin HCl 1,000 mg in 250 mls @ 166.667 mls/hr 09/11/18 14:00 09/13/18 14:50 Vancomycin (Pre-Docked) IVPB 166.667 mls/hr DAILY@1400 [facility] Administration Protocol Insulin Aspart 1 vial 09/14/18 07:00 09/14/18 12:07 Novolog Vial Sliding Scale - SQ 7 units TIDAC [facility] Administration Protocol Insulin Detemir 25 units 09/14/18 07:00 09/14/18 06:25 Levemir Vial SQ 25 units AM [facility] Administration Mycophenolate Sodium 360 mg 09/11/18 22:00 09/14/18 09:28 Mycophenolic Acid PO 360 mg BID [facility] Administration Oxycodone HCl 5 mg 09/12/18 12:42 Roxicodone - PO Q6H PRN PAIN LEVEL 7 - 10 Ranitidine HCl 150 mg 09/11/18 22:00 09/14/18 09:27 Zantac Oral Solution - GT 150 mg BID [facility] Administration Tacrolimus 1 mg 09/12/18 10:00 09/14/18 09:28 Prograf PO 1 mg BID [facility] Administration Tamsulosin HCl 0.4 mg 09/11/18 22:00 09/13/18 22:36 Flomax - PO 0.4 mg HS [facility] Administration Impression 1. CKD 2. kidney transplant 3. DM with labile blood pressure 4. hx of syncope 5. HTN 6. hyperlipidemia 7. CHF 8. acute resp failure s/p intubation 9. Hx DVT - pt has IVC filter Plan - cont prograf 1 mg BID - follow level - monitor renal function - will need better glucose control - avoid nsaids and nephrotoxins - monitor pulse ox Dr Perez
== END 2018-09-14 18:03 | DRG 871 ==
LOC: JER 16:16 → JICU 19:31 → J8W 09-13 18:11
PROVIDERS: ADMIT Family Medicine; ATTEND Family Medicine
PROC: 06HM33Z Insertion of Infusion Device into Right Femoral Vein, Percutaneous Approach (ICD-10-PCS; principal; 2018-09-04)
PROC: B54BZZA Ultrasonography of Right Lower Extremity Veins, Guidance (ICD-10-PCS; 2018-09-04)
PROC: 5A1945Z Respiratory Ventilation, 24-96 Consecutive Hours (ICD-10-PCS; 2018-09-04)
PROC: 0BH17EZ Insertion of Endotracheal Airway into Trachea, Via Natural or Artificial Opening (ICD-10-PCS; 2018-09-04)
PROC: 02HV33Z Insertion of Infusion Device into Superior Vena Cava, Percutaneous Approach (ICD-10-PCS; 2018-09-14)
DX: A41.02 Sepsis due to Methicillin resistant Staphylococcus aureus (principal); R65.21 Severe sepsis with septic shock; J96.01 Acute respiratory failure with hypoxia; J18.9 Pneumonia, unspecified organism; G93.41 Metabolic encephalopathy; N17.9 Acute kidney failure, unspecified; Z94.0 Kidney transplant status; E87.2 Acidosis; E27.40 Unspecified adrenocortical insufficiency; L02.519 Cutaneous abscess of unspecified hand; I13.0 Hypertensive heart and chronic kidney disease with heart failure and stage 1 through stage 4 chronic kidney disease, or unspecified chronic kidney disease; L98.498 Non-pressure chronic ulcer of skin of other sites with other specified severity; E11.622 Type 2 diabetes mellitus with other skin ulcer; E11.649 Type 2 diabetes mellitus with hypoglycemia without coma; E11.22 Type 2 diabetes mellitus with diabetic chronic kidney disease; N18.9 Chronic kidney disease, unspecified; J44.9 Chronic obstructive pulmonary disease, unspecified; R68.0 Hypothermia, not associated with low environmental temperature; E16.2 Hypoglycemia, unspecified; E78.5 Hyperlipidemia, unspecified; R23.4 Changes in skin texture; E11.51 Type 2 diabetes mellitus with diabetic peripheral angiopathy without gangrene; E11.65 Type 2 diabetes mellitus with hyperglycemia; I25.10 Atherosclerotic heart disease of native coronary artery without angina pectoris; E11.42 Type 2 diabetes mellitus with diabetic polyneuropathy; R13.10 Dysphagia, unspecified; I45.81 Long QT syndrome; I25.2 Old myocardial infarction; Z95.1 Presence of aortocoronary bypass graft; Z86.718 Personal history of other venous thrombosis and embolism
CPT/HCPCS: 36415; 36569; 36600; 70450-TC; 71045-TC-FY; 73130-TC-RT-FY; 73218-TC-RT; 73502-TC-RT; 76776-TC; 77001-TC-FY; 80048; 80053; 80197; 81003; 81015; 82375; 82550; 82553; 82607; 82803; 82947; 82962; 83050; 83605; 83735; 83880; 84100; 84443; 84484; 85025; 85027; 85610; 85730; 86593; 87040; 87070; 87086; 87186; 87205; 87899; 93005; 93010; 93306-TC; 94640; 97116-GP; 97161-GP; 99285-25; C1751; G0480; J0131

== ENCOUNTER 2018-10-10 14:30 | Inpatient (IN) | payer OTHER ==
--- NOTE | 2018-10-10 14:45 | PDOC ---
History of Present Illness - General Stated Complaint: BLOOD SUGAR PROBLEM Time Seen by Provider: 10/10/18 14:38 - History of Present Illness Initial Comments: 10/10/18 15:02 The patient is a 78 year old male with a history of a Renal Transplant on Immunosuppression, Cardiac Arrest, HTN, HLD, DM, CHF who presents for evaluation of confusion and elevated blood sugars. Per EMS, the patient's blood sugars have been in the 300s today despite taking his insulin. The patient's family noted the patient to be more confused than usual as well prompting his presentation to the ED for further evaluation. He otherwise denies fevers, chills, SOB, chest pain, nausea, vomiting, abdominal pain, or changes with urination or bowel movements. Past History - Past Medical History Allergies/Adverse Reactions: Allergies Allergy/AdvReac Type Severity Reaction Status Date / Time No Known Drug Allergies Allergy Verified 05/20/18 18:32 Home Medications: Ambulatory Orders Acetaminophen [Tylenol .Regular Strength -] 650 mg PO Q4H PRN tablet 11/29/17 Albuterol 2.5/Ipratropium 0.5 [Duoneb -] 1 amp NEB QID 02/08/18 Amlodipine Besylate [Norvasc -] 10 mg PO DAILY #30 tablet 05/19/18 Apixaban [Eliquis] 5 mg PO BID #60 tablet 05/19/18 Atorvastatin Ca [Lipitor] 80 mg PO HS #60 tablet 05/19/18 Duloxetine HCl [Cymbalta] 20 mg PO BID #60 capsule. 05/19/18 Tamsulosin HCl [Flomax] 0.4 mg PO HS #30 cap.er.24h 05/19/18 predniSONE [Deltasone -] 20 mg PO DAILY #30 tablet 05/24/18 Carvedilol [Coreg -] 25 mg PO BID #60 tablet 09/14/18 Hydrocortisone [Cortef -] 20 mg PO BID tablet 09/14/18 Insulin (Levemir) [Levemir Vial] 25 units SQ AM units 09/14/18 Insulin (Levemir) [Levemir Vial] 30 units SQ HS units 09/14/18 Insulin Sliding Scale [Novolog Vial Sliding Scale -] 1 vial SQ TIDAC units Mycophenolate Sodium [Mycophenolic Acid] 360 mg PO BID tablet. 09/14/18 Tacrolimus Anhydrous [Prograf] 1 mg PO BID capsule 09/14/18 oxyCODONE HCL [Roxicodone -] 5 mg PO Q6H PRN tablet MDD 4 09/14/18 Anemia: No Asthma: No Cancer: No Cardiac Disorders: Yes (cardiac arrest, CABG) COPD: Yes CHF: Yes Diabetes: Yes (IDDM) Dialysis: Yes (stopped 2008) HTN: Yes Hypercholesterolemia: Yes Thyroid Disease: No - Surgical History Cardiac Surgery: Yes (open heart surgery) Neurologic Surgery: No - Immunization History Immunization Up to Date: Yes - Suicide/Smoking/Psychosocial Hx Smoking Status: No Smoking History: Unknown if ever smoked Have you smoked in the past 12 months: No Number of Cigarettes Smoked Daily: 0 'Breaking Loose' booklet given: 04/22/18 Hx Alcohol Use: No Drug/Substance Use Hx: No Substance Use Type: None Hx Substance Use Treatment: No Review of Systems - Review of Systems Comments:: 10/10/18 15:04 Constitutional: No fevers, chills, fatigue, malaise HEENT: No Rhinorrhea, nasal congestion, visual changes Cardiovascular: No chest pain, syncope, palpitations, lightheadedness Respiratory: No Cough, SOB, Hemoptysis, Gastrointestinal: No Abdominal pain, Nausea, Vomiting, Constipation, Diarrhea, Melena Genitourinary: No Dysuria, Frequency, Urgency, Hesitancy, Hematuria, Flank pain Musculoskeletal: No Myalgia, arthralgia Skin: No rashes, itching, bruising, pallor Neurologic: No Headache, Dizziness, Numbness, Weakness, or Tingling Psychiatric: No Hallucinations. No SI or HI *Physical Exam - Physical Exam Comments: 10/10/18 15:05 General Appearance: Nourished. No Apparent Distress HEENT: EOMI, SEEMA. No Pharyngeal Erythema, Tonsillar Exudate, Tonsillar Erythema Neck: No Cervical Lymphadenopathy Respiratory/Chest: Lungs Clear, Normal Breath Sounds. No Crackles, Rales, Rhonchi, Wheezing Cardiovascular: Regular Rhythm, Regular Rate. No Murmur, Gallops, Rubs Gastrointestinal/Abdominal: Normal Bowel Sounds, Soft. No Guarding, Rebound, Tenderness Musculoskeletal: No CVA Tenderness Extremity: 3+ pitting edema in the lowerNormal Capillary Refill Integumentary: Normal Color, Dry, Warm Neurologic: metal machine setter II-XII NML intact, Fully Oriented, Alert, Normal Mood/Affect, Normal Response, Motor Strength 5/5. ED Treatment Course - LABORATORY CBC & Chemistry Diagram: 10/10/18 16:08 10/10/18 16:08 Medical Decision Making - Medical Decision Making 10/10/18 15:12 The patient is a 78 year old male with a history of a Renal Transplant on Immunosuppression, Cardiac Arrest, HTN, HLD, DM, CHF who presents for evaluation of confusion and elevated blood sugars. Differential includes but is not limited to: ACS, Intracranial process, Hyperglycemia, DKA, Infectious, Metabolic Derangement. Given the patient's history and physical exam, we will obtain a cbc, cmp, vbg, acetone, ua, urine culture, chest plain film, head ct, ekg to evaluate further. We will continue to monitor and reassess while here in the ED. 10/10/18 23:35 CBC is unremarkable. CMP is unremarkable. bnp is elevated to 7000s. Chest plain film demonstrates congestive changes. Head CT is unremarkable as read by our radiologist. Patient has continued to be altered on exam. We believe he requires observation admission for further management and monitoring. We discussed the case with the admitting team who accepted the patient for admission. *DC/Admit/Observation/Transfer Diagnosis at time of Disposition: Hyperglycemia CHF (congestive heart failure) Qualifiers: Heart failure type: unspecified Heart failure chronicity: unspecified Qualified Code(s): I50.9 - Heart failure, unspecified Altered mental status Qualifiers: Altered mental status type: unspecified Qualified Code(s): R41.82 - Altered mental status, unspecified - Discharge Dispostion Condition at time of disposition: Stable Decision to Admit order: Yes - Referrals - Patient Instructions - Post Discharge Activity
[2018-10-10] MEDS ORDERED: INSULIN REGULAR HUMAN 100 UNITS/ML *VIAL IVPUSH ONE (15:42)
[2018-10-10 16:30] LABS: BASO % 0.7 % (0-2.0); EOS % 0.1 % (0-4.5); HEMOGLOBIN 11.7 GM/dL (11.7-16.9); LYMPH % 6.5 % (8-40); MCH 30.2 pg (25.7-33.7); MCHC 33.4 g/dl (32.0-35.9); MEAN CELL VOLUME 90.2 fl (80-96); MEAN PLT VOLUME 7.8 fl (7.5-11.1); MONO % 1.8 % (3.8-10.2); NEUT % 90.9 % (42.8-82.8); PLATELET COUNT 230 K/MM3 (134-434); RBC 3.88 M/mm3 (4.00-5.60); WHITE BLOOD COUNT 7.6 K/mm3 (4.0-10.0)
[2018-10-10] MEDS ORDERED: INSULIN REGULAR HUMAN 100 UNITS/ML *VIAL ONE (16:33)
--- NOTE | 2018-10-10 16:42 | PDOC ---
Attending Attestation - Resident Resident Name: JelenaKostas - ED Attending Attestation I have performed the following: I have examined & evaluated the patient, The case was reviewed & discussed with the resident, I agree w/resident's findings & plan - HPI HPI: 10/10/18 17:37 Page 78 YOM with h/o CKD, DM, HTN, HLD, renal transplant on prograf and prednisone, CHF, acute respiratory failure with prior intubation, DVT on Eliquis s/p IVC filter, cardiac arrest, syncope, GERD p/w hyperglycemia in 300s , AMS. - Physicial Exam PE: 10/10/18 17:38 NAD, alert, oriented to person and place, well appearing, PERRL, EOMI, MMM, pale conjunctiva, anicteric; neck supple. lungs clear, regular rate, + holosystolic murmur abdomen soft nontender. COONEY x4, no focal neuro deficits. 3+ bilateral pitting peripheral edema. normal color for ethnicity, WWP. - Medical Decision Making 10/10/18 17:37 Page 78 YOM with h/o CKD, DM, HTN, HLD, renal transplant on prograf and prednisone, CHF, acute respiratory failure with prior intubation, DVT on Eliquis s/p IVC filter, cardiac arrest, syncope, GERD p/w hyperglycemia in 300s , AMS. DDx. DKA, HHS, electrolyte/metabolic derangements, infection, effusion, pulmonary edema. dehydration. CHF. Vital signs reviewed, wnl. borderline spo2 ~94%. Prior notes reviewed, including admissions, discharges and consultations. laboratory results and imaging reviewed, basic labs and lytes notable for + hyperglycemia in 400s on FS check tacro level pending, as on immunosuppressants. CXR_pulmonary edema/cardiomegaly Cardiac panel_neg x1, however, bnp significantly elevated, ?heart failure exacerbation. EKG normal sinus rhythm, no interval abnormalities, narrow QRS, ST and T wave segments and morphology normal. Nonspecific T wave abnormalities CT Head to eval for AMS cause, r/o stroke/bleed/lesion ED course: IV insulin, no fluids as LE swelling (prior echo with preserved EF). repeat FS improved, r/o DKA, no AG. lasix IV for edema. Dispo: admit for AMS workup, glycemic control, CHF. Pt and family made aware of impression and plan. 10/10/18 17:43
[2018-10-10 17:01] LABS: ALK PHOS 85 U/L (45-117); ANION GAP 7 MMOL/L (8-16); BILIRUBIN,TOTAL 0.5 mg/dL (0.2-1); BLOOD UREA NITROGEN 37 mg/dL (7-18); CALCIUM 8.1 mg/dL (8.5-10.1); CHLORIDE 102 mmol/L (98-107); CO2 29 mmol/L (21-32); CREATININE 1.4 mg/dL (0.55-1.3); N-TERMINAL BNP 7052.4 pg/ml (5-450); POTASSIUM 5.7 mmol/L (3.5-5.1); SGOT/AST 24 U/L (15-37); SGPT/ALT 27 U/L (13-61); SODIUM 138 mmol/L (136-145); TOT PROT 5.6 g/dl (6.4-8.2)
[2018-10-10 17:11] LABS: GLUCOSE,RANDOM 343 mg/dL (74-106)
[2018-10-10 17:42] LABS: ACETONE SERUM NEGATIVE (NEGATIVE)
[2018-10-10] MEDS ORDERED: FUROSEMIDE 40 MG/4 ML INJECTABLE VIAL IVPUSH ONE ×2 (17:42→18:09)
[2018-10-10] MEDS ORDERED: FUROSEMIDE 40 MG/4 ML INJECTABLE VIAL ONE (17:58)
[2018-10-10 18:07] LABS: VENOUS PC02 46.9 mmHg (38-52); VENOUS PH 7.37 (7.32-7.42); VENOUS PO2 62.3 mmHg (28-48)
--- NOTE | 2018-10-10 21:03 | HP ---
CHIEF COMPLAINT: AMS PCP: Lianne history obtained from EMR as patient has altered mental status HISTORY OF PRESENT ILLNESS: 78 year old male with a history of a Renal Transplant on Immunosuppression, cardiac Arrest, HTN, HLD, DM, CHF who presented for evaluation of confusion and elevated blood sugars. Per EMS, the patient's blood sugars have been in the 300s today despite taking his insulin. Patient's family noted the patient to be more confused than usual. ER course was notable for: (1) head CT (2) IV insulin (3) Recent Travel: unknown PAST MEDICAL HISTORY: Renal Transplant on Immunosuppression, Cardiac Arrest, HTN , HLD, DM, CHF PAST SURGICAL HISTORY: Social History: unknown Smoking: Alcohol: Drugs: Family History: unknown Allergies No Known Drug Allergies Allergy (Verified 05/20/18 18:32) HOME MEDICATIONS: Home Medications Medication Instructions Recorded Acetaminophen [Tylenol .Regular 650 mg PO Q4H PRN tablet 11/29/17 Strength -] Albuterol 2.5/Ipratropium 0.5 1 amp NEB QID 02/08/18 [Duoneb -] Amlodipine Besylate [Norvasc -] 10 mg PO DAILY #30 tablet 05/19/18 Apixaban [Eliquis] 5 mg PO BID #60 tablet 05/19/18 Atorvastatin Ca [Lipitor] 80 mg PO HS #60 tablet 05/19/18 Duloxetine HCl [Cymbalta] 20 mg PO BID #60 capsule. 05/19/18 Tamsulosin HCl [Flomax] 0.4 mg PO HS #30 cap.er.24h 05/19/18 predniSONE [Deltasone -] 20 mg PO DAILY #30 tablet 05/24/18 Carvedilol [Coreg -] 25 mg PO BID #60 tablet 09/14/18 Hydrocortisone [Cortef -] 20 mg PO BID tablet 09/14/18 Insulin (Levemir) [Levemir Vial] 25 units SQ AM units 09/14/18 Insulin (Levemir) [Levemir Vial] 30 units SQ HS units 09/14/18 Insulin Sliding Scale [Novolog 1 vial SQ TIDAC units 09/14/18 Vial Sliding Scale -] Mycophenolate Sodium [Mycophenolic 360 mg PO BID tablet. 09/14/18 Acid] Tacrolimus Anhydrous [Prograf] 1 mg PO BID capsule 09/14/18 oxyCODONE HCL [Roxicodone -] 5 mg PO Q6H PRN tablet MDD 4 09/14/18 REVIEW OF SYSTEMS- unable to obtain as patient has altered mental status PHYSICAL EXAMINATION Vital Signs - 24 hr 10/10/18 10/10/18 10/10/18 14:45 15:00 15:30 Temperature 97.3 F L Pulse Rate 72 Pulse Rate [ 93 H 93 H Radial] Respiratory 18 20 20 Rate Blood Pressure 118/55 L Blood Pressure 113/50 L 119/67 [Left Arm] O2 Sat by Pulse 94 L 95 95 Oximetry (%) 10/10/18 10/10/18 16:00 18:10 Temperature Pulse Rate Pulse Rate [ 93 H 73 Radial] Respiratory 20 18 Rate Blood Pressure Blood Pressure 119/47 L 105/60 [Left Arm] O2 Sat by Pulse 95 95 Oximetry (%) GENERAL: Awake, alert, disoriented, anasarca HEAD: Normal with no signs of trauma. EYES: Pupils equal, round and reactive to light, extraocular movements intact, sclera anicteric, conjunctiva clear. No lid lag. EARS, NOSE, THROAT: Ears normal, nares patent, oropharynx clear without exudates. Moist mucous membranes. NECK: Normal range of motion, supple without lymphadenopathy, JVD, or masses. LUNGS: Breath sounds equal, clear to auscultation bilaterally anteriorly HEART: Regular rate and rhythm, normal S1 and S2 without murmur, rub or gallop. ABDOMEN: Soft, nontender, not distended, normoactive bowel sounds, no guarding, no rebound, no masses. No hepatomegaly or splenomegaly. MUSCULOSKELETAL: Normal range of motion at all joints. No bony deformities or tenderness. No CVA tenderness. UPPER EXTREMITIES: 2+ pulses, warm, well-perfused. No cyanosis. No clubbing. 2+ pitting edema in arms b/l, right arm AVF, good bruit LOWER Ext- 2+ pitting edema up to thighs PSYCHIATRIC: uncooperative SKIN: no rashes Laboratory Results - last 24 hr 10/10/18 10/10/18 10/10/18 16:08 16:08 17:46 WBC 7.6 RBC 3.88 L Hgb 11.7 Hct 35.0 L MCV 90.2 MCH 30.2 MCHC 33.4 RDW 17.0 H Plt Count 230 MPV 7.8 Absolute Neuts (auto) 6.9 Neutrophils % 90.9 H Lymphocytes % 6.5 L D Monocytes % 1.8 L Eosinophils % 0.1 D Basophils % 0.7 D Nucleated RBC % 0 VBG pH 7.37 POC VBG pCO2 46.9 POC VBG pO2 62.3 H D Mixed VBG HCO3 26.2 H Sodium 138 Potassium 5.7 H Chloride 102 Carbon Dioxide 29 Anion Gap 7 L BUN 37 H Creatinine 1.4 H Creat Clearance w eGFR 49.27 Random Glucose 343 H* Calcium 8.1 L Total Bilirubin 0.5 AST 24 ALT 27 Alkaline Phosphatase 85 Creatine Kinase 76 Troponin I 0.02 B-Natriuretic Peptide 7052.4 H Total Protein 5.6 L Albumin 3.0 L Acetone, Qual Negative ASSESSMENT/PLAN: #Altered mental status- uncertain baseline, however patient is unable to cooperate with interview and does not follow commands. No focal neurological deficits noted on exam and no history of focal deficits. Head CT unremarkable for any acute intracranial insults. May be from uremia or hyperglycemia or narcotics (oxycodone in home med list). -neurology consult -tsh -vit b12 level -rpr -urine drug screen -avoid sedatives or narcotics -bed rest, fall precautions -ekg -control glucose #Fluid overload with anasarca, 2+ pitting edema in all extremities, high BNP. Possibly secondary to failing renal transplant? Possible CHF exacerbation. -Furosemide 40mg IVP stat and 40mg IVP daily -i/o -daily weights -avoid IV fluids -renal consult for possible dialysis -avoid nephrotoxins -transthoracic echo -carvedilol- home dose #Renal Transplant on Immunosuppression -c/w immunosuppresive meds as per med list - prednisone, hydrocortisone, mycophenolate, tacrolimus -tacrolimus level -commincate with patient's renal transplant MD during day #HTN -amlodipine -carvedilol #HLD -c/w #DM-uncontrolled -diabetic diet -insulin sliding scale -a1c #DVT ppx -on eliquis (uncertain why- for clarification in am) Visit type - Emergency Visit Emergency Visit: Yes ED Registration Date: 10/10/18 Care time: The patient presented to the Emergency Department on the above date and was hospitalized for further evaluation of their emergent condition. - New Patient This patient is new to me today: Yes Date on this admission: 10/10/18 - Critical Care Critical Care patient: No
[2018-10-10] MEDS ORDERED: SODIUM CHLORIDE 1,000 ML IV SCH (21:15)
[2018-10-10] MEDS ORDERED: SODIUM POLYSTYRENE SULFONATE 15 GM/60 ML BOTTLE PO ONE (21:24)
[2018-10-10] MEDS ORDERED: ATORVASTATIN CA 40 MG TABLET (FP) PO SCH (22:00)
[2018-10-10] MEDS: CARVEDILOL 25 MG TABLET (FP) PO SCH (23:12)
[2018-10-10] MEDS: HYDROCORTISONE 20 MG TABLET PO SCH (23:12)
[2018-10-10] MEDS: DULoxetine HCL 20 MG CAPSULE.DR (FP) PO SCH (23:12)
[2018-10-10] MEDS: ALBUTEROL SO4 2.5/IPRATROPIUM 0.5 INH SOL 3 ML VIAL.NEB. NEB SCH (23:12)
[2018-10-10] MEDS: APIXABAN 5 MG TABLET PO SCH (23:13)
[2018-10-10] MEDS: TAMSULOSIN HCL 0.4 MG CAP PO SCH (23:13)
[2018-10-10] MEDS: MYCOPHENOLATE SODIUM 360 MG TABLET.DR PO SCH (23:13)
[2018-10-10] MEDS: ATORVASTATIN CA 80 MG TABLET (FP) PO SCH (23:13)
[2018-10-10] MEDS: TACROLIMUS ANHYDROUS 1 MG CAPSULE PO SCH (23:13)
[2018-10-10] MEDS: INSULIN (LEVEMIR) 100 UNITS/ML UNITS SQ SCH (23:15)
[2018-10-11 03:22] VITALS: BMI 27.2
[2018-10-11] MEDS ORDERED: INSULIN (NOVOLOG) ASPART 100 UNITS/ML 10ML VIAL ONE (05:58)
[2018-10-11] MEDS ORDERED: HEPARIN NA (PORCINE) 5,000 UNITS/ML 1ML VIAL SQ SCH (06:00)
[2018-10-11] MEDS: INSULIN SLIDING SCALE (NOVOLOG) 1 VIAL SQ SCH ×3 (06:55→17:15)
[2018-10-11] MEDS: INSULIN (LEVEMIR) 100 UNITS/ML UNITS SQ SCH ×2 (06:56→22:03)
[2018-10-11] MEDS ORDERED: INSULIN SLIDING SCALE (NOVOLOG) 1 VIAL SQ SCH (07:00)
[2018-10-11 07:50] LABS: HEMATOCRIT 36.4 % (35.4-49); HEMOGLOBIN 11.4 GM/dL (11.7-16.9); MCH 28.3 pg (25.7-33.7); MCHC 31.3 g/dl (32.0-35.9); MEAN CELL VOLUME 90.3 fl (80-96); MEAN PLT VOLUME 7.3 fl (7.5-11.1); PLATELET COUNT 200 K/MM3 (134-434); RBC 4.03 M/mm3 (4.00-5.60); RDW 17.1 % (11.9-15.9); WHITE BLOOD COUNT 8.9 K/mm3 (4.0-10.0)
[2018-10-11] MEDS: ALBUTEROL SO4 2.5/IPRATROPIUM 0.5 INH SOL 3 ML VIAL.NEB. NEB SCH ×4 (08:00→20:17)
[2018-10-11 09:33] LABS: ALBUMIN 2.8 g/dl (3.4-5.0); ALK PHOS 62 U/L (45-117); ANION GAP 9 MMOL/L (8-16); BILIRUBIN,TOTAL 0.5 mg/dL (0.2-1); BLOOD UREA NITROGEN 33 mg/dL (7-18); CALCIUM 8.5 mg/dL (8.5-10.1); CHLORIDE 104 mmol/L (98-107); CO2 28 mmol/L (21-32); CREATININE 1.1 mg/dL (0.55-1.3); GLUCOSE,RANDOM 102 mg/dL (74-106); SGOT/AST 12 U/L (15-37); SGPT/ALT 24 U/L (13-61); SODIUM 142 mmol/L (136-145); TOT PROT 5.1 g/dl (6.4-8.2)
[2018-10-11] MEDS ORDERED: PT OWN MED DRAWER 7, Y5N ONE ×2 (11:29→21:25)
[2018-10-11] MEDS: FUROSEMIDE 40 MG/4 ML INJECTABLE VIAL IVPUSH SCH (11:33)
[2018-10-11] MEDS: predniSONE 20 MG TABLET (UD) PO SCH (11:34)
[2018-10-11] MEDS: DULoxetine HCL 20 MG CAPSULE.DR (FP) PO SCH ×2 (11:34→22:01)
[2018-10-11] MEDS: amLODIPine BESYLATE 10 MG TABLET (FP) PO SCH (11:34)
[2018-10-11] MEDS: CARVEDILOL 25 MG TABLET (FP) PO SCH ×2 (11:34→22:01)
[2018-10-11] MEDS: APIXABAN 5 MG TABLET PO SCH ×2 (11:34→22:01)
[2018-10-11] MEDS: MYCOPHENOLATE SODIUM 360 MG TABLET.DR PO SCH ×2 (11:35→22:01)
[2018-10-11] MEDS: TACROLIMUS ANHYDROUS 1 MG CAPSULE PO SCH ×2 (11:35→22:02)
[2018-10-11] MEDS: HYDROCORTISONE 20 MG TABLET PO SCH ×2 (11:35→22:01)
--- NOTE | 2018-10-11 12:31 | CONSULT ---
Consult Consult Specialty:: Nephrology Reason for Consultation:: kidney transplant - History of Present Illness Chief Complaint: confusion and hyperglycemia History of Present Illness: Pt is a 78 year old male with pmhx of kidney transplant, HTN, HLD, DM, CHF and DVT who presents with confusion and elevated blood sugar. His mental status is at baseline. He has had elevated blood sugar at home. He denies shortness of breath but is on oxygen and has edema of his legs. He denies nausea or vomiting. He denies fevers of chills. - History Source History Provided By: Patient - Past Medical History Cardio/Vascular: Yes: CAD, CHF, Deep Vein Thrombosis, HTN, [place], Other Renal/: Yes: Renal Inusuff, Other (S/P Kidney tranplant 2008) Infectious Disease: Yes: C-Diff, MRSA, Other (resistant E. coli in past, osteomyelitis of his finger) Endocrine: Yes: Diabetes Mellitus - Past Surgical History Past Surgical History: Yes: AV Fistula/Graft (right upper arm, non working), CABG, Kidney Transplant (right 2008) - Alcohol/Substance Use Hx Alcohol Use: No History of Substance Use: reports: None - Smoking History Smoking history: Unknown if ever smoked Have you smoked in the past 12 months: No Aproximately how many cigarettes per day: 0 - Social History Usual Living Arrangement: Alone ADL: Support Services History of Recent Travel: No Home Medications - Allergies Allergies/Adverse Reactions: Allergies Allergy/AdvReac Type Severity Reaction Status Date / Time No Known Drug Allergies Allergy Verified 05/20/18 18:32 - Home Medications Home Medications: Ambulatory Orders Acetaminophen [Tylenol .Regular Strength -] 650 mg PO Q4H PRN tablet 11/29/17 Albuterol 2.5/Ipratropium 0.5 [Duoneb -] 1 amp NEB QID 02/08/18 Amlodipine Besylate [Norvasc -] 10 mg PO DAILY #30 tablet 05/19/18 Apixaban [Eliquis] 5 mg PO BID #60 tablet 05/19/18 Atorvastatin Ca [Lipitor] 80 mg PO HS #60 tablet 05/19/18 Duloxetine HCl [Cymbalta] 20 mg PO BID #60 capsule.dr 05/19/18 Tamsulosin HCl [Flomax] 0.4 mg PO HS #30 cap.er.24h 05/19/18 predniSONE [Deltasone -] 20 mg PO DAILY #30 tablet 05/24/18 Carvedilol [Coreg -] 25 mg PO BID #60 tablet 09/14/18 Hydrocortisone [Cortef -] 20 mg PO BID tablet 09/14/18 Insulin (Levemir) [Levemir Vial] 25 units SQ AM units 09/14/18 Insulin (Levemir) [Levemir Vial] 30 units SQ HS units 09/14/18 Insulin Sliding Scale [Novolog Vial Sliding Scale -] 1 vial SQ TIDAC units Mycophenolate Sodium [Mycophenolic Acid] 360 mg PO BID tablet. 09/14/18 Tacrolimus Anhydrous [Prograf] 1 mg PO BID capsule 09/14/18 oxyCODONE HCL [Roxicodone -] 5 mg PO Q6H PRN tablet MDD 4 09/14/18 Family Disease History - Family Disease History Family History: Denies Review of Systems - Review of Systems Constitutional: reports: Malaise Eyes: reports: No Symptoms HENT: reports: No Symptoms Neck: reports: No Symptoms Cardiovascular: reports: Edema Respiratory: reports: No Symptoms Gastrointestinal: reports: No Symptoms Genitourinary: reports: No Symptoms Musculoskeletal: reports: No Symptoms Integumentary: reports: No Symptoms Endocrine: reports: No Symptoms Hematology/Lymphatic: reports: No Symptoms Psychiatric: reports: No Symptoms Physical Exam Vital Signs: Vital Signs Temperature 97.5 F L 10/11/18 06:00 Pulse Rate 78 10/11/18 06:00 Respiratory Rate 18 10/11/18 06:00 Blood Pressure 142/62 10/11/18 06:00 O2 Sat by Pulse Oximetry (%) 97 10/11/18 03:23 Constitutional: Yes: Calm Eyes: Yes: Conjunctiva Clear HENT: Yes: Atraumatic Cardiovascular: Yes: S1, S2 Respiratory: Yes: On Nasal O2 Gastrointestinal: Yes: Soft Renal/: Yes: Other (graft is soft and non tender) Edema: Yes Edema: LLE: 1+, RLE: 1+ Neurological: Yes: Confusion Labs: CBC, BMP 10/11/18 06:50 10/11/18 06:50 Laboratory Tests 09/14/18 10/10/18 10/10/18 06:00 16:08 16:08 WBC 7.6 Hgb 11.7 BUN 37 H Creatinine 1.4 H Random Glucose Tacrolimus Pending Acetone, Qual Negative RPR Titer 10/10/18 10/11/18 10/11/18 16:08 06:50 06:50 WBC Hgb 11.4 L BUN 33 H Creatinine 1.1 Random Glucose 102 Tacrolimus Pending Acetone, Qual RPR Titer 10/11/18 06:50 WBC Hgb BUN Creatinine Random Glucose Tacrolimus Acetone, Qual RPR Titer Nonreactive Imaging - Results Chest X-ray: Report Reviewed Problem List - Problems (1) CHF (congestive heart failure) Code(s): I50.9 - HEART FAILURE, UNSPECIFIED Qualifiers: Heart failure type: unspecified Heart failure chronicity: unspecified Qualified Code(s): I50.9 - Heart failure, unspecified (2) Change in mental status Code(s): R41.82 - ALTERED MENTAL STATUS, UNSPECIFIED Qualifiers: Altered mental status type: unspecified Qualified Code(s): R41.82 - Altered mental status, unspecified (3) Hyperglycemia Code(s): R73.9 - HYPERGLYCEMIA, UNSPECIFIED Assessment/Plan Current Medications Generic Name Dose Route Start Last Admin Trade Name Freq PRN Reason Stop Dose Admin Albuterol/Ipratropium 1 amp 10/10/18 22:00 10/10/18 23:12 Duoneb - NEB 1 amp RQID [facility] Administration Amlodipine Besylate 10 mg 10/11/18 10:00 10/11/18 11:34 Norvasc - PO 10 mg DAILY [facility] Administration Apixaban 5 mg 10/10/18 22:00 10/11/18 11:34 Eliquis - PO 5 mg BID [facility]GO Administration Atorvastatin Calcium 80 mg 10/10/18 22:45 10/10/18 23:13 Lipitor - PO 80 mg HS [facility] Administration Carvedilol 25 mg 10/10/18 22:00 10/11/18 11:34 Coreg - PO 25 mg BID [facility]GO Administration Duloxetine HCl 20 mg 10/10/18 22:00 10/11/18 11:34 Cymbalta - PO 20 mg BID [facility] Administration Furosemide 40 mg 10/11/18 10:00 10/11/18 11:33 Lasix Injection - IVPUSH 40 mg DAILY [facility] Administration Hydrocortisone 20 mg 10/10/18 22:00 10/11/18 11:35 Cortef - PO 20 mg BID [facility] Administration Insulin Aspart 1 vial 10/11/18 07:00 10/11/18 11:43 Novolog Vial Sliding Scale - SQ 2 units TIDAC [facility] Administration Protocol Insulin Detemir 25 units 10/11/18 07:00 10/11/18 06:56 Levemir Vial SQ Not Given AM [facility] Insulin Detemir 30 units 10/10/18 22:00 10/10/18 23:15 Levemir Vial SQ 30 units HS [facility] Administration Mycophenolate Sodium 360 mg 10/10/18 22:00 10/11/18 11:35 Mycophenolic Acid PO 360 mg BID [facility] Administration Prednisone 20 mg 10/11/18 10:00 10/11/18 11:34 Deltasone - PO 20 mg DAILY [facility] Administration Tacrolimus 1 mg 10/10/18 22:00 10/11/18 11:35 Prograf PO 1 mg BID [facility] Administration Tamsulosin HCl 0.4 mg 10/10/18 22:00 10/10/18 23:13 Flomax - PO 0.4 mg HS [facility] Administration Impression 1. CKD 2. kidney transplant 3. DM with labile blood pressure 4. hx of syncope 5. HTN 6. hyperlipidemia 7. CHF 8. acute resp failure s/p intubation 9. Hx DVT - pt has IVC filter Plan - cont with lasix - check prograf level for tomorrow - first level was drawn at the wrong time - monitor volume status - avoid nsaids and nephrotoxins - monitor pulse ox
--- NOTE | 2018-10-11 14:03 | ECHO ---
Name: SOHA BERNAL Exam:Adult Echocardiogram Study Date: 10/11/2018 09:40 AM Age: 78 yrs Reason For Study: CHF Height: 70 in Weight: 163 lb BSA: 1.9 m2 MMode/2D Measurements & Calculations IVSd: 0.99 cm Ao root diam: 3.0 cm LVIDd: 5.0 cm LA dimension: 4.2 cm LVIDs: 3.5 cm ACS: 1.7 cm LVPWd: 1.1 cm EDV(Teich): 116.9 ml LVOT diam: 2.0 cm ESV(Teich): 50.4 ml RV S Rudi: 8.8 cm/sec Doppler Measurements & Calculations MV E max rudi: 120.0 cm/sec Ao V2 max: 245.8 cm/sec MV A max rudi: 99.9 cm/sec Ao max P.6 mmHg MV E/A: 1.2 MV dec time: 0.20 sec CORNEL(V,D): 1.1 cm2 LV V1 max P.2 mmHg MR max rudi: 558.2 cm/sec LV V1 max: 88.3 cm/sec MR max P.6 mmHg TR max rudi: 368.5 cm/sec Med Peak E' Rudi: 3.6 cm/sec TR max P.3 mmHg Med E/e': 33.4 Lat Peak E' Rudi: 5.8 cm/sec Lat E/e': 20.8 Procedure A two-dimensional transthoracic echocardiogram with color flow and Doppler was performed. Left Ventricle The left ventricular size, thickness and function are normal. The left ventricular ejection fraction is normal. Left Ventricular Filling pattern is normal for age. The left ventricular wall motion is nathaniel l. Right Ventricle The right ventricle is normal in size and function. Atria The left atrium is mildly dilated. The right atrium is mildly dilated. Mitral Valve There is mild mitral valve thickening. There is no mitral valve stenosis. There is moderate mitral regurgitation. The mitral regurgitant jet is posteriorly directed, which is consistent with anterior leaflet pathology. Tricuspid Valve There is mild tricuspid valve thickening. There is no tricuspid stenosis. There is moderate to severe tricuspid regurgitation. Right ventricular systolic pressure is elevated at >60mmHg. Aortic Valve The aortic valve is not well visualized. There is moderate aortic valve thickening. There is mild aor tic sclerosis.;. Hemodynamically significant valvular aortic stenosis cannot be excluded. No aortic regur gitation is present. Pulmonic Valve The pulmonic valve is not well visualized. Great Vessels The aortic root is normal size. Interpretation Summary The left ventricular size, thickness and function are normal The left ventricular ejection fraction is normal. The left ventricular wall motion is normal. The left atrium is mildly dilated. The right atrium is mildly dilated. There is moderate mitral regurgitation. The mitral regurgitant jet is posteriorly directed, which is consistent with anterior leaflet patholo gy. Right ventricular systolic pressure is elevated at >60mmHg. There is moderate to severe tricuspid regurgitation. The aortic valve is not well visualized. There is moderate aortic valve thickening. There is mild aortic sclerosis.; Left Ventricular Filling pattern is normal for age. Hemodynamically significant valvular aortic stenosis cannot be excluded. MD Lazaro Khanna 10/11/2018 02:02 PM
--- NOTE | 2018-10-11 15:41 | EKG ---
Test Reason : Blood Pressure : / mmHG Vent. Rate : 070 BPM Atrial Rate : 070 BPM P-R Int : 166 ms QRS Dur : 144 ms QT Int : 428 ms P-R-T Axes : 020 -40 048 degrees QTc Int : 462 ms NORMAL SINUS RHYTHM LEFT AXIS DEVIATION RIGHT BUNDLE BRANCH BLOCK ABNORMAL ECG WHEN COMPARED WITH ECG OF 04-SEP-2018 17:16, T WAVE AMPLITUDE HAS DECREASED IN LATERAL LEADS Confirmed by MONICA SILVA, ROMAIN ([id number]) on 10/11/2018 3:40:56 PM Referred By: Confirmed By:ROMAIN ANDERSON MD
--- NOTE | 2018-10-11 16:05 | PN ---
Progress Note, Physician Chief Complaint: EVENTS AND NOTES REVIEWED CONFUSED NO FEVERS - Current Medication List Current Medications: Active Medications Albuterol/Ipratropium (Duoneb -) 1 amp NEB RQID [facility] Last Admin: 10/11/18 15:57 Dose: 1 amp Amlodipine Besylate (Norvasc -) 10 mg PO DAILY [facility] Last Admin: 10/11/18 11:34 Dose: 10 mg Apixaban (Eliquis -) 5 mg PO BID [facility] Last Admin: 10/11/18 11:34 Dose: 5 mg Atorvastatin Calcium (Lipitor -) 80 mg PO HS [facility] Last Admin: 10/10/18 23:13 Dose: 80 mg Carvedilol (Coreg -) 25 mg PO BID [facility] Last Admin: 10/11/18 11:34 Dose: 25 mg Duloxetine HCl (Cymbalta -) 20 mg PO BID [facility] Last Admin: 10/11/18 11:34 Dose: 20 mg Furosemide (Lasix Injection -) 40 mg IVPUSH DAILY [facility] Last Admin: 10/11/18 11:33 Dose: 40 mg Hydrocortisone (Cortef -) 20 mg PO BID [facility] Last Admin: 10/11/18 11:35 Dose: 20 mg Insulin Aspart (Novolog Vial Sliding Scale -) 1 vial SQ TIDAC [facility]; Protocol Last Admin: 10/11/18 11:43 Dose: 2 units Insulin Detemir (Levemir Vial) 25 units SQ AM [facility] Last Admin: 10/11/18 06:56 Dose: Not Given Insulin Detemir (Levemir Vial) 30 units SQ HS [facility] Last Admin: 10/10/18 23:15 Dose: 30 units Mycophenolate Sodium (Mycophenolic Acid) 360 mg PO BID [facility] Last Admin: 10/11/18 11:35 Dose: 360 mg Prednisone (Deltasone -) 20 mg PO DAILY [facility] Last Admin: 10/11/18 11:34 Dose: 20 mg Tacrolimus (Prograf) 1 mg PO BID [facility] Last Admin: 10/11/18 11:35 Dose: 1 mg Tamsulosin HCl (Flomax -) 0.4 mg PO HS [facility] Last Admin: 10/10/18 23:13 Dose: 0.4 mg - Objective Vital Signs: Vital Signs Temperature 97.5 F L 10/11/18 06:00 Pulse Rate 78 10/11/18 06:00 Respiratory Rate 18 10/11/18 06:00 Blood Pressure 142/62 10/11/18 06:00 O2 Sat by Pulse Oximetry (%) 97 10/11/18 03:23 Constitutional: Yes: Mild Distress Eyes: Yes: WNL HENT: Yes: WNL Neck: Yes: WNL Cardiovascular: Yes: WNL Respiratory: Yes: WNL Gastrointestinal: Yes: WNL Genitourinary: Yes: Incontinence Musculoskeletal: Yes: Muscle Weakness Extremities: Yes: Erythema Edema: Yes Edema: LLE: 2+, RLE: 2+ Integumentary: Yes: Erythema, Rash, Venous Stasis Changes Wound/Incision: Yes: Open to air Neurological: Yes: Confusion ...Motor Strength: LLE, RLE Psychiatric: Yes: Other Labs: CBC, BMP 10/11/18 06:50 10/11/18 06:50 Problem List - Problems (1) CHF (congestive heart failure) Code(s): I50.9 - HEART FAILURE, UNSPECIFIED Qualifiers: Heart failure type: unspecified Heart failure chronicity: unspecified Qualified Code(s): I50.9 - Heart failure, unspecified (2) Change in mental status Code(s): R41.82 - ALTERED MENTAL STATUS, UNSPECIFIED Qualifiers: Altered mental status type: unspecified Qualified Code(s): R41.82 - Altered mental status, unspecified (3) Hyperglycemia Code(s): R73.9 - HYPERGLYCEMIA, UNSPECIFIED (4) CHUCK (acute kidney injury) Code(s): N17.9 - ACUTE KIDNEY FAILURE, UNSPECIFIED (5) Acute metabolic encephalopathy Code(s): G93.41 - METABOLIC ENCEPHALOPATHY (6) Acute respiratory failure Code(s): J96.00 - ACUTE RESPIRATORY FAILURE, UNSP W HYPOXIA OR HYPERCAPNIA (7) Acute type 2 diabetes mellitus with manifestations Code(s): E11.8 - TYPE 2 DIABETES MELLITUS WITH UNSPECIFIED COMPLICATIONS (8) Adrenal insufficiency Code(s): E27.40 - UNSPECIFIED ADRENOCORTICAL INSUFFICIENCY (9) Controlled diabetes mellitus type 2 with complications Code(s): E11.8 - TYPE 2 DIABETES MELLITUS WITH UNSPECIFIED COMPLICATIONS (10) Transplant recipient Code(s): Z94.89 - OTHER TRANSPLANTED ORGAN AND TISSUE STATUS (11) UTI (urinary tract infection) Code(s): N39.0 - URINARY TRACT INFECTION, SITE NOT SPECIFIED Assessment/Plan IV ABX ID/RENAL EVAL DVT PROHYLAXIS IV LASIX TOLERATED CHECK ECHO CARDIOLOGY EVAL
[2018-10-11 17:57] LABS: COCAINE, UR NEGATIVE ng/ml (CUTOFF=300); METHADONE, UR NEGATIVE ng/ml (CUTOFF=300); OPIATES, URI NEGATIVE ng/ml (CUTOFF=300); PHENCYCLIDINE,URINE NEGATIVE ng/ml (CUTOFF=25); URINE AMPHETAMINES NEGATIVE ng/ml (CUTOFF=500); URINE BARBITURATES NEGATIVE ng/ml (CUTOFF=200); URINE BENZODIAZEPINES NEGATIVE ng/ml (CUTOFF=200)
[2018-10-11 17:59] LABS: URINE APPEARANCE CLEAR; URINE BILIRUBIN NEGATIVE (<2.0 mg/dL); URINE COLOR STRAW; URINE GLUCOSE (UA) NEGATIVE (NEGATIVE); URINE KETONE NEGATIVE (NEGATIVE); URINE LEUK ESTERASE NEGATIVE (NEGATIVE); URINE NITRITE NEGATIVE (NEGATIVE); URINE PROTEIN NEGATIVE (NEGATIVE); URINE UROBILINOGEN NEGATIVE mg/dL (0.2-1.0)
[2018-10-11] MEDS: TAMSULOSIN HCL 0.4 MG CAP PO SCH (22:01)
[2018-10-11] MEDS: ATORVASTATIN CA 80 MG TABLET (FP) PO SCH (22:01)
--- NOTE | 2018-10-12 03:07 | CONSULT ---
Consult Consult Specialty:: endocrine Referred by:: dr.ammir hidalgo Reason for Consultation:: diabetes mellitus hyperglycemia - History of Present Illness Chief Complaint: weakness and confused History of Present Illness: 78 year old male with a history of a Renal Transplant on Immunosuppression, cardiac Arrest, HTN, HLD, DM, CHF who presented for evaluation of confusion and elevated blood sugars. Per EMS, the patient's blood sugars have been in the 300s today despite taking his insulin.he has been more confused and weak unable to sit up without help. Patient's family noted the patient to be more lethargic and had high sugars even before meals. - History Source History Provided By: Patient, Family Member - Past Medical History Cardio/Vascular: Yes: CAD, CHF, Deep Vein Thrombosis, HTN, [place], Other Renal/: Yes: Renal Inusuff, Other (S/P Kidney tranplant 2008) Infectious Disease: Yes: C-Diff, MRSA, Other (resistant E. coli in past, osteomyelitis of his finger) Endocrine: Yes: Diabetes Mellitus - Past Surgical History Past Surgical History: Yes: AV Fistula/Graft (right upper arm, non working), CABG, Kidney Transplant (right 2008) - Alcohol/Substance Use Hx Alcohol Use: No History of Substance Use: reports: None - Smoking History Smoking history: Unknown if ever smoked Have you smoked in the past 12 months: No Aproximately how many cigarettes per day: 0 - Social History Usual Living Arrangement: Alone ADL: Support Services History of Recent Travel: No Home Medications - Allergies Allergies/Adverse Reactions: Allergies Allergy/AdvReac Type Severity Reaction Status Date / Time No Known Drug Allergies Allergy Verified 05/20/18 18:32 - Home Medications Home Medications: Ambulatory Orders Acetaminophen [Tylenol .Regular Strength -] 650 mg PO Q4H PRN tablet 11/29/17 Albuterol 2.5/Ipratropium 0.5 [Duoneb -] 1 amp NEB QID 02/08/18 Amlodipine Besylate [Norvasc -] 10 mg PO DAILY #30 tablet 05/19/18 Apixaban [Eliquis] 5 mg PO BID #60 tablet 05/19/18 Atorvastatin Ca [Lipitor] 80 mg PO HS #60 tablet 05/19/18 Duloxetine HCl [Cymbalta] 20 mg PO BID #60 capsule. 05/19/18 Tamsulosin HCl [Flomax] 0.4 mg PO HS #30 cap.er.24h 05/19/18 predniSONE [Deltasone -] 20 mg PO DAILY #30 tablet 05/24/18 Carvedilol [Coreg -] 25 mg PO BID #60 tablet 09/14/18 Hydrocortisone [Cortef -] 20 mg PO BID tablet 09/14/18 Insulin (Levemir) [Levemir Vial] 25 units SQ AM units 09/14/18 Insulin (Levemir) [Levemir Vial] 30 units SQ HS units 09/14/18 Insulin Sliding Scale [Novolog Vial Sliding Scale -] 1 vial SQ TIDAC units Mycophenolate Sodium [Mycophenolic Acid] 360 mg PO BID tablet. 09/14/18 Tacrolimus Anhydrous [Prograf] 1 mg PO BID capsule 09/14/18 oxyCODONE HCL [Roxicodone -] 5 mg PO Q6H PRN tablet MDD 4 09/14/18 Review of Systems - Review of Systems Constitutional: reports: Lethargy, Weakness Eyes: reports: No Symptoms HENT: reports: No Symptoms Neck: reports: No Symptoms Cardiovascular: reports: Shortness of Breath Respiratory: reports: Exercise Intolerance Gastrointestinal: reports: Bloating Musculoskeletal: reports: Joint Pain, Joint Swelling, Muscle Pain, Muscle Weakness Neurological: reports: Confusion, Unsteady Gait, Weakness Endocrine: reports: Unexplained Weight Gain Physical Exam Vital Signs: Vital Signs Temperature 98.1 F 10/11/18 22:00 Pulse Rate 79 10/11/18 22:00 Respiratory Rate 20 10/11/18 22:00 Blood Pressure 106/72 10/11/18 22:00 O2 Sat by Pulse Oximetry (%) 97 10/12/18 02:00 Constitutional: Yes: Anxious Eyes: Yes: EOM Intact HENT: Yes: Normocephalic Neck: Yes: Trachea Midline Cardiovascular: Yes: Regular Rate and Rhythm Respiratory: Yes: CTA Bilaterally Gastrointestinal: Yes: Normal Bowel Sounds ...Rectal Exam: Yes: Deferred Renal/: Yes: WNL Musculoskeletal: Yes: Back Pain, Muscle Weakness Extremities: Yes: WNL Edema: Yes Neurological: Yes: Alert, Oriented Labs: CBC, BMP 10/11/18 06:50 10/11/18 06:50 Problem List - Problems (1) CHF (congestive heart failure) Code(s): I50.9 - HEART FAILURE, UNSPECIFIED Qualifiers: Heart failure type: unspecified Heart failure chronicity: unspecified Qualified Code(s): I50.9 - Heart failure, unspecified (2) Change in mental status Code(s): R41.82 - ALTERED MENTAL STATUS, UNSPECIFIED Qualifiers: Altered mental status type: unspecified Qualified Code(s): R41.82 - Altered mental status, unspecified (3) Hyperglycemia Code(s): R73.9 - HYPERGLYCEMIA, UNSPECIFIED (4) CHUCK (acute kidney injury) Code(s): N17.9 - ACUTE KIDNEY FAILURE, UNSPECIFIED (5) Acute metabolic encephalopathy Code(s): G93.41 - METABOLIC ENCEPHALOPATHY (6) Acute type 2 diabetes mellitus with manifestations Code(s): E11.8 - TYPE 2 DIABETES MELLITUS WITH UNSPECIFIED COMPLICATIONS (7) Adrenal insufficiency Code(s): E27.40 - UNSPECIFIED ADRENOCORTICAL INSUFFICIENCY Assessment/Plan Current Active Problems CHF (congestive heart failure) (Acute) Change in mental status (Acute) Hyperglycemia (Acute) renal transplant /adrenal suppression diabetic neuropathy Abnormal Lab Results 10/11/18 10/11/18 06:50 06:50 Hgb 11.4 L MCHC 31.3 L RDW 17.1 H MPV 7.3 L BUN 33 H AST 12 L Total Protein 5.1 L Albumin 2.8 L Laboratory Results - last 24 hr 10/11/18 10/11/18 10/11/18 06:50 06:50 06:50 WBC 8.9 RBC 4.03 Hgb 11.4 L Hct 36.4 MCV 90.3 MCH 28.3 MCHC 31.3 L RDW 17.1 H Plt Count 200 MPV 7.3 L Sodium 142 Potassium 4.0 Chloride 104 Carbon Dioxide 28 Anion Gap 9 BUN 33 H Creatinine 1.1 Creat Clearance w eGFR > 60 POC Glucometer Random Glucose 102 Calcium 8.5 Total Bilirubin 0.5 AST 12 L ALT 24 Alkaline Phosphatase 62 Total Protein 5.1 L Albumin 2.8 L Vitamin B12 796 TSH 0.95 D Urine Color Urine Appearance Urine pH Ur Specific Rosalia Urine Protein Urine Glucose (UA) Urine Ketones Urine Blood Urine Nitrite Urine Bilirubin Urine Urobilinogen Ur Leukocyte Esterase Opiates Screen Methadone Screen Barbiturate Screen Phencyclidine Screen Ur Amphetamines Screen MDMA (Ecstasy) Screen Benzodiazepines Screen Cocaine Screen U Marijuana (THC) Screen RPR Titer 10/11/18 10/11/18 10/11/18 06:50 06:55 09:25 WBC RBC Hgb Hct MCV MCH MCHC RDW Plt Count MPV Sodium Potassium Chloride Carbon Dioxide Anion Gap BUN Creatinine Creat Clearance w eGFR POC Glucometer 125 Random Glucose Calcium Total Bilirubin AST ALT Alkaline Phosphatase Total Protein Albumin Vitamin B12 TSH Urine Color Urine Appearance Urine pH Ur Specific Rosalia Urine Protein Urine Glucose (UA) Urine Ketones Urine Blood Urine Nitrite Urine Bilirubin Urine Urobilinogen Ur Leukocyte Esterase Opiates Screen Negative Methadone Screen Negative Barbiturate Screen Negative Phencyclidine Screen Negative Ur Amphetamines Screen Negative MDMA (Ecstasy) Screen Negative Benzodiazepines Screen Negative Cocaine Screen Negative U Marijuana (THC) Screen Negative RPR Titer Nonreactive 10/11/18 10/11/18 10/11/18 09:25 11:43 17:14 WBC RBC Hgb Hct MCV MCH MCHC RDW Plt Count MPV Sodium Potassium Chloride Carbon Dioxide Anion Gap BUN Creatinine Creat Clearance w eGFR POC Glucometer 196 387 Random Glucose Calcium Total Bilirubin AST ALT Alkaline Phosphatase Total Protein Albumin Vitamin B12 TSH Urine Color Straw Urine Appearance Clear Urine pH 5.0 Ur Specific Rosalia 1.012 Urine Protein Negative Urine Glucose (UA) Negative Urine Ketones Negative Urine Blood Negative Urine Nitrite Negative Urine Bilirubin Negative Urine Urobilinogen Negative Ur Leukocyte Esterase Negative Opiates Screen Methadone Screen Barbiturate Screen Phencyclidine Screen Ur Amphetamines Screen MDMA (Ecstasy) Screen Benzodiazepines Screen Cocaine Screen U Marijuana (THC) Screen RPR Titer 10/11/18 21:59 WBC RBC Hgb Hct MCV MCH MCHC RDW Plt Count MPV Sodium Potassium Chloride Carbon Dioxide Anion Gap BUN Creatinine Creat Clearance w eGFR POC Glucometer 298 Random Glucose Calcium Total Bilirubin AST ALT Alkaline Phosphatase Total Protein Albumin Vitamin B12 TSH Urine Color Urine Appearance Urine pH Ur Specific Rosalia Urine Protein Urine Glucose (UA) Urine Ketones Urine Blood Urine Nitrite Urine Bilirubin Urine Urobilinogen Ur Leukocyte Esterase Opiates Screen Methadone Screen Barbiturate Screen Phencyclidine Screen Ur Amphetamines Screen MDMA (Ecstasy) Screen Benzodiazepines Screen Cocaine Screen U Marijuana (THC) Screen RPR Titer plan: bgm qac novolog insulin [id number] units am levemir 10 units hs dc cortef and use prednisone as both adrenal suppression and equivalent
[2018-10-12] MEDS: INSULIN (LEVEMIR) 100 UNITS/ML UNITS SQ SCH ×2 (06:36→21:40)
[2018-10-12] MEDS: INSULIN SLIDING SCALE (NOVOLOG) 1 VIAL SQ SCH ×3 (06:37→17:02)
[2018-10-12] MEDS: ALBUTEROL SO4 2.5/IPRATROPIUM 0.5 INH SOL 3 ML VIAL.NEB. NEB SCH ×4 (07:20→20:16)
[2018-10-12 08:24] LABS: HEMATOCRIT 35.1 % (35.4-49); HEMOGLOBIN 11.2 GM/dL (11.7-16.9); MCH 28.9 pg (25.7-33.7); MEAN CELL VOLUME 90.4 fl (80-96); MEAN PLT VOLUME 7.6 fl (7.5-11.1); PLATELET COUNT 180 K/MM3 (134-434); RBC 3.89 M/mm3 (4.00-5.60); RDW 16.9 % (11.9-15.9); WHITE BLOOD COUNT 10.5 K/mm3 (4.0-10.0)
[2018-10-12 08:51] LABS: ALBUMIN 2.7 g/dl (3.4-5.0); ALK PHOS 93 U/L (45-117); ANION GAP 9 MMOL/L (8-16); BILIRUBIN,TOTAL 0.4 mg/dL (0.2-1); BLOOD UREA NITROGEN 37 mg/dL (7-18); CALCIUM 7.9 mg/dL (8.5-10.1); CHLORIDE 104 mmol/L (98-107); CO2 30 mmol/L (21-32); CREATININE 1.3 mg/dL (0.55-1.3); GLUCOSE,RANDOM 245 mg/dL (74-106); MAGNESIUM 1.8 mg/dL (1.8-2.4); PHOSPHOROUS 3.9 mg/dL (2.5-4.9); POTASSIUM 3.9 mmol/L (3.5-5.1); SGOT/AST 12 U/L (15-37); SGPT/ALT 28 U/L (13-61); SODIUM 143 mmol/L (136-145); TOT PROT 5.1 g/dl (6.4-8.2)
--- NOTE | 2018-10-12 09:59 | CON.NEURO ---
Consult - Past Medical History Cardio/Vascular: Yes: CAD, CHF, Deep Vein Thrombosis, HTN, [place], Other Renal/: Yes: Renal Inusuff, Other (S/P Kidney tranplant 2008) Infectious Disease: Yes: C-Diff, MRSA, Other (resistant E. coli in past, osteomyelitis of his finger) Endocrine: Yes: Diabetes Mellitus - Past Surgical History Past Surgical History: Yes: AV Fistula/Graft (right upper arm, non working), CABG, Kidney Transplant (right 2009) - Alcohol/Substance Use Hx Alcohol Use: No History of Substance Use: reports: None - Smoking History Smoking history: Unknown if ever smoked Have you smoked in the past 12 months: No Aproximately how many cigarettes per day: 0 - Social History Usual Living Arrangement: Alone ADL: Support Services History of Recent Travel: No Home Medications - Allergies Allergies/Adverse Reactions: Allergies Allergy/AdvReac Type Severity Reaction Status Date / Time No Known Drug Allergies Allergy Verified 05/20/18 18:32 - Home Medications Home Medications: Ambulatory Orders Acetaminophen [Tylenol .Regular Strength -] 650 mg PO Q4H PRN tablet 11/29/17 Albuterol 2.5/Ipratropium 0.5 [Duoneb -] 1 amp NEB QID 02/08/18 Amlodipine Besylate [Norvasc -] 10 mg PO DAILY #30 tablet 05/19/18 Apixaban [Eliquis] 5 mg PO BID #60 tablet 05/19/18 Atorvastatin Ca [Lipitor] 80 mg PO HS #60 tablet 05/19/18 Duloxetine HCl [Cymbalta] 20 mg PO BID #60 capsule.dr 05/19/18 Tamsulosin HCl [Flomax] 0.4 mg PO HS #30 cap.er.24h 05/19/18 predniSONE [Deltasone -] 20 mg PO DAILY #30 tablet 05/24/18 Carvedilol [Coreg -] 25 mg PO BID #60 tablet 09/14/18 Hydrocortisone [Cortef -] 20 mg PO BID tablet 09/14/18 Insulin (Levemir) [Levemir Vial] 25 units SQ AM units 09/14/18 Insulin (Levemir) [Levemir Vial] 30 units SQ HS units 09/14/18 Insulin Sliding Scale [Novolog Vial Sliding Scale -] 1 vial SQ TIDAC units Mycophenolate Sodium [Mycophenolic Acid] 360 mg PO BID tablet. 09/14/18 Tacrolimus Anhydrous [Prograf] 1 mg PO BID capsule 09/14/18 oxyCODONE HCL [Roxicodone -] 5 mg PO Q6H PRN tablet MDD 4 09/14/18 Physical Exam-Neuro Vital Signs: Vital Signs Temperature 97.9 F 10/12/18 06:00 Pulse Rate 75 10/12/18 06:00 Respiratory Rate 20 10/12/18 06:00 Blood Pressure 157/72 10/12/18 06:00 O2 Sat by Pulse Oximetry (%) 97 10/12/18 02:00 Labs: CBC, BMP 10/12/18 06:00 10/12/18 06:00 Assessment/Plan cc Luis Carlos to hospital for COnfusion HPI 78 year old male history of Renal transplant , s/p cardiac arrest, HTN, HLD , DM. Patient presented with confusion and elevated sugar. Patient sugar was in 300s . Patient hs bene oriented x 3 and denies any headhace , seizure like activity. He denies any hemiparesis, headache, fever. Spoke to nursing and they feel he is back to baseline and this is how he always. 6 PAST MEDICAL HISTORY: Renal Transplant on Immunosuppression, Cardiac Arrest, HTN , HLD, DM, CHF No Known Drug Allergies Allergy (Verified 05/20/18 18:32) HOME MEDICATIONS: Home Medications Medication Instructions Recorded Acetaminophen [Tylenol .Regular 650 mg PO Q4H PRN tablet 11/29/17 Strength -] Albuterol 2.5/Ipratropium 0.5 1 amp NEB QID 02/08/18 [Duoneb -] Amlodipine Besylate [Norvasc -] 10 mg PO DAILY #30 tablet 05/19/18 Apixaban [Eliquis] 5 mg PO BID #60 tablet 05/19/18 Atorvastatin Ca [Lipitor] 80 mg PO HS #60 tablet 05/19/18 Duloxetine HCl [Cymbalta] 20 mg PO BID #60 capsule. 05/19/18 Tamsulosin HCl [Flomax] 0.4 mg PO HS #30 cap.er.24h 05/19/18 predniSONE [Deltasone -] 20 mg PO DAILY #30 tablet 05/24/18 Carvedilol [Coreg -] 25 mg PO BID #60 tablet 09/14/18 Hydrocortisone [Cortef -] 20 mg PO BID tablet 09/14/18 Insulin (Levemir) [Levemir Vial] 25 units SQ AM units 09/14/18 Insulin (Levemir) [Levemir Vial] 30 units SQ HS units 09/14/18 Insulin Sliding Scale [Novolog 1 vial SQ TIDAC units 09/14/18 Vial Sliding Scale -] Mycophenolate Sodium [Mycophenolic 360 mg PO BID tablet. 09/14/18 Acid] Tacrolimus Anhydrous [Prograf] 1 mg PO BID capsule 09/14/18 oxyCODONE HCL [Roxicodone -] 5 mg PO Q6H PRN tablet MDD 4 09/14/18 ROS, FH, reviewed in chart Neurological Examination He is alert and follow command oriented x 2 ,he knows he is at [facility], he sys it is august and today is tuesday as per nursing he is oriented x 3 at times eomi, pupils reactive, no face asymmetry, speech is normal moving all extremity ct head no acute findings b12 and tsh normal Assessment/Plan Fluctuating mental status, likely to be metabolic enecephalopathy vs early cognitive dysfunction Plan no need for furher testing - like to follow up outpatient for cognitive impairement - there is no agitation at this time, no need for sedative or antipsychotic medication - clinically unlikley to be stroke, meningitis Thnaking yo so much Tanvir Garcia MD
[2018-10-12] MEDS ORDERED: PT OWN MED DRAWER 7, Y5N ONE ×2 (10:03→21:11)
[2018-10-12] MEDS: amLODIPine BESYLATE 10 MG TABLET (FP) PO SCH (10:11)
[2018-10-12] MEDS: APIXABAN 5 MG TABLET PO SCH ×2 (10:11→21:40)
[2018-10-12] MEDS: predniSONE 20 MG TABLET (UD) PO SCH (10:11)
[2018-10-12] MEDS: MYCOPHENOLATE SODIUM 360 MG TABLET.DR PO SCH ×2 (10:11→21:41)
[2018-10-12] MEDS: FUROSEMIDE 40 MG/4 ML INJECTABLE VIAL IVPUSH SCH (10:11)
[2018-10-12] MEDS: DULoxetine HCL 20 MG CAPSULE.DR (FP) PO SCH ×2 (10:11→21:40)
[2018-10-12] MEDS: TACROLIMUS ANHYDROUS 1 MG CAPSULE PO SCH ×2 (10:11→21:42)
[2018-10-12] MEDS: CARVEDILOL 25 MG TABLET (FP) PO SCH ×2 (10:11→21:40)
--- NOTE | 2018-10-12 11:57 | PN ---
Progress Note (short form) - Note Progress Note: ID Consult dictated ? Toxic metabolic encephalopathy R/O RLL pneumonia Recent MRSA bacteremia ESRD Await c/s Empiric ceftriaxone + stat dose vancomycin
--- NOTE | 2018-10-12 12:47 | PN ---
Progress Note, Physician History of Present Illness: Pt seen and examined at bedside. He is wake and appears comfortable. - Current Medication List Current Medications: Active Medications Albuterol/Ipratropium (Duoneb -) 1 amp NEB RQID [facility] Last Admin: 10/12/18 11:15 Dose: 1 amp Amlodipine Besylate (Norvasc -) 10 mg PO DAILY [facility] Last Admin: 10/12/18 10:11 Dose: 10 mg Apixaban (Eliquis -) 5 mg PO BID [facility] Last Admin: 10/12/18 10:11 Dose: 5 mg Atorvastatin Calcium (Lipitor -) 80 mg PO HS [facility] Last Admin: 10/11/18 22:01 Dose: 80 mg Carvedilol (Coreg -) 25 mg PO BID [facility] Last Admin: 10/12/18 10:11 Dose: 25 mg Duloxetine HCl (Cymbalta -) 20 mg PO BID [facility] Last Admin: 10/12/18 10:11 Dose: 20 mg Furosemide (Lasix Injection -) 40 mg IVPUSH DAILY [facility] Last Admin: 10/12/18 10:11 Dose: 40 mg Vancomycin HCl 1,000 mg/ (Dextrose) 250 mls @ 166.667 mls/hr IVPB ONCE ONE; Protocol Stop: 10/12/18 13:28 Ceftriaxone Sodium 1 gm/ (Dextrose) 100 mls @ 200 mls/hr IVPB DAILY [facility]; Protocol Insulin Aspart (Novolog Vial Sliding Scale -) 1 vial SQ TIDAC [facility]; Protocol Last Admin: 10/12/18 11:53 Dose: 4 units Insulin Detemir (Levemir Vial) 25 units SQ AM [facility] Last Admin: 10/12/18 06:36 Dose: 25 unit Insulin Detemir (Levemir Vial) 10 units SQ HS [facility] Mycophenolate Sodium (Mycophenolic Acid) 360 mg PO BID [facility] Last Admin: 10/12/18 10:11 Dose: 360 mg Prednisone (Deltasone -) 20 mg PO DAILY [facility] Last Admin: 10/12/18 10:11 Dose: 20 mg Tacrolimus (Prograf) 1 mg PO BID [facility] Last Admin: 10/12/18 10:11 Dose: 1 mg Tamsulosin HCl (Flomax -) 0.4 mg PO HS [facility] Last Admin: 10/11/18 22:01 Dose: 0.4 mg - Objective Vital Signs: Vital Signs Temperature 97.9 F 10/12/18 06:00 Pulse Rate 75 10/12/18 06:00 Respiratory Rate 20 10/12/18 06:00 Blood Pressure 157/72 10/12/18 06:00 O2 Sat by Pulse Oximetry (%) 97 10/12/18 02:00 Constitutional: Yes: Calm Eyes: Yes: Conjunctiva Clear Cardiovascular: Yes: S1, S2 Respiratory: Yes: CTA Bilaterally Gastrointestinal: Yes: Soft Genitourinary: Yes: Other (graft soft and non tender) Edema: Yes Edema: LLE: Trace, RLE: Trace Neurological: Yes: Confusion Labs: CBC, BMP 10/12/18 06:00 10/12/18 06:00 Problem List - Problems (1) CHF (congestive heart failure) Code(s): I50.9 - HEART FAILURE, UNSPECIFIED Qualifiers: Heart failure type: unspecified Heart failure chronicity: unspecified Qualified Code(s): I50.9 - Heart failure, unspecified (2) Change in mental status Code(s): R41.82 - ALTERED MENTAL STATUS, UNSPECIFIED Qualifiers: Altered mental status type: unspecified Qualified Code(s): R41.82 - Altered mental status, unspecified (3) Hyperglycemia Code(s): R73.9 - HYPERGLYCEMIA, UNSPECIFIED Assessment/Plan Current Medications Generic Name Dose Route Start Last Admin Trade Name Montyq PRN Reason Stop Dose Admin Albuterol/Ipratropium 1 amp 10/10/18 22:00 10/12/18 11:15 Duoneb - NEB 1 amp RQID [facility] Administration Amlodipine Besylate 10 mg 10/11/18 10:00 10/12/18 10:11 Norvasc - PO 10 mg DAILY [facility] Administration Apixaban 5 mg 10/10/18 22:00 10/12/18 10:11 Eliquis - PO 5 mg BID [facility] Administration Atorvastatin Calcium 80 mg 10/10/18 22:45 10/11/18 22:01 Lipitor - PO 80 mg HS [facility] Administration Carvedilol 25 mg 10/10/18 22:00 10/12/18 10:11 Coreg - PO 25 mg BID [facility] Administration Duloxetine HCl 20 mg 10/10/18 22:00 10/12/18 10:11 Cymbalta - PO 20 mg BID [facility] Administration Furosemide 40 mg 10/11/18 10:00 10/12/18 10:11 Lasix Injection - IVPUSH 40 mg DAILY [facility] Administration Vancomycin HCl 1,000 mg/ 250 mls @ 166.667 mls/hr 10/12/18 11:59 Dextrose IVPB 10/12/18 13:28 ONCE ONE Protocol Ceftriaxone Sodium 1 gm/ 100 mls @ 200 mls/hr 10/12/18 12:00 Dextrose IVPB DAILY [facility] Protocol Insulin Aspart 1 vial 10/11/18 07:00 10/12/18 11:53 Novolog Vial Sliding Scale - SQ 4 units TIDAC [facility] Administration Protocol Insulin Detemir 25 units 10/11/18 07:00 10/12/18 06:36 Levemir Vial SQ 25 unit AM [facility] Administration Insulin Detemir 10 units 10/12/18 22:00 Levemir Vial SQ HS [facility] Mycophenolate Sodium 360 mg 10/10/18 22:00 10/12/18 10:11 Mycophenolic Acid PO 360 mg BID [facility] Administration Prednisone 20 mg 10/11/18 10:00 10/12/18 10:11 Deltasone - PO 20 mg DAILY [facility] Administration Tacrolimus 1 mg 10/10/18 22:00 10/12/18 10:11 Prograf PO 1 mg BID [facility] Administration Tamsulosin HCl 0.4 mg 10/10/18 22:00 10/11/18 22:01 Flomax - PO 0.4 mg HS [facility] Administration Impression 1. CKD 2. kidney transplant 3. DM with labile blood pressure 4. hx of syncope 5. HTN 6. hyperlipidemia 7. CHF 8. acute resp failure s/p intubation 9. Hx DVT - pt has IVC filter Plan - change lasix to PO for tomorrow - unclear why he is on 20 mg of prednisone, decrease to 15 and taper down - repeat labs in am - follow prograf level - will follow - avoid nsaids and nephrotoxins - monitor pulse ox
[2018-10-12] MEDS ORDERED: VANCOMYCIN 1 GRAM (PRE-DOCKED) 1,000 MG/250 ML BAG IVPB ONE (13:00)
[2018-10-12] MEDS ORDERED: DEXTROSE 5%-WATER - 50 ML IVPB ONE (13:20)
[2018-10-12] MEDS ORDERED: cefTRIAXone SODIUM 1 GM VIAL ONE (13:20)
--- NOTE | 2018-10-12 13:23 | PN ---
Progress Note, Physician - Current Medication List Current Medications: Active Medications Albuterol/Ipratropium (Duoneb -) 1 amp NEB RQID [facility] Last Admin: 10/12/18 11:15 Dose: 1 amp Amlodipine Besylate (Norvasc -) 10 mg PO DAILY [facility] Last Admin: 10/12/18 10:11 Dose: 10 mg Apixaban (Eliquis -) 5 mg PO BID [facility] Last Admin: 10/12/18 10:11 Dose: 5 mg Atorvastatin Calcium (Lipitor -) 80 mg PO HS [facility] Last Admin: 10/11/18 22:01 Dose: 80 mg Carvedilol (Coreg -) 25 mg PO BID [facility] Last Admin: 10/12/18 10:11 Dose: 25 mg Duloxetine HCl (Cymbalta -) 20 mg PO BID [facility] Last Admin: 10/12/18 10:11 Dose: 20 mg Furosemide (Lasix -) 40 mg PO DAILY [facility] Vancomycin HCl (Vancomycin (Pre-Docked)) 1,000 mg in 250 mls @ 166.667 mls/hr IVPB ONCE ONE; Protocol Stop: 10/12/18 14:29 Ceftriaxone Sodium 1 gm/ (Dextrose) 50 mls @ 100 mls/hr IVPB DAILY [facility]; Protocol Insulin Aspart (Novolog Vial Sliding Scale -) 1 vial SQ TIDAC [facility]; Protocol Last Admin: 10/12/18 11:53 Dose: 4 units Insulin Detemir (Levemir Vial) 25 units SQ AM [facility] Last Admin: 10/12/18 06:36 Dose: 25 unit Insulin Detemir (Levemir Vial) 10 units SQ HS [facility] Mycophenolate Sodium (Mycophenolic Acid) 360 mg PO BID [facility] Last Admin: 10/12/18 10:11 Dose: 360 mg Prednisone (Deltasone -) 15 mg PO DAILY [facility] Tacrolimus (Prograf) 1 mg PO BID [facility] Last Admin: 10/12/18 10:11 Dose: 1 mg Tamsulosin HCl (Flomax -) 0.4 mg PO HS [facility] Last Admin: 10/11/18 22:01 Dose: 0.4 mg - Objective Vital Signs: Vital Signs Temperature 97.9 F 10/12/18 06:00 Pulse Rate 75 10/12/18 06:00 Respiratory Rate 20 10/12/18 06:00 Blood Pressure 157/72 10/12/18 06:00 O2 Sat by Pulse Oximetry (%) 97 10/12/18 02:00 Labs: CBC, BMP 10/12/18 06:00 10/12/18 06:00 Problem List - Problems (1) Change in mental status Assessment/Plan: - uncertain baseline, however patient is unable to cooperate with interview and does not follow commands. No focal neurological deficits noted on exam and no history of focal deficits. Head CT unremarkable for any acute intracranial insults. May be from uremia or hyperglycemia or narcotics (oxycodone in home med list). -neurology consult -tsh -vit b12 level -rpr -urine drug screen -avoid sedatives or narcotics -bed rest, fall precautions -ekg -control glucose Code(s): R41.82 - ALTERED MENTAL STATUS, UNSPECIFIED Qualifiers: Altered mental status type: unspecified Qualified Code(s): R41.82 - Altered mental status, unspecified (2) CHF (congestive heart failure) Assessment/Plan: #Fluid overload with anasarca, 2+ pitting edema in all extremities, high BNP. Possibly secondary to failing renal transplant? Possible CHF exacerbation. -Furosemide 40mg IVP stat and 40mg IVP daily -i/o -daily weights -avoid IV fluids -renal consult for possible dialysis -avoid nephrotoxins -transthoracic echo -carvedilol- home dose Code(s): I50.9 - HEART FAILURE, UNSPECIFIED Qualifiers: Heart failure type: unspecified Heart failure chronicity: unspecified Qualified Code(s): I50.9 - Heart failure, unspecified (3) DM2 (diabetes mellitus, type 2) Code(s): E11.9 - TYPE 2 DIABETES MELLITUS WITHOUT COMPLICATIONS Qualifiers: Diabetes mellitus [facility] insulin use: with terminal computer operator use (4) Kidney transplant recipient Assessment/Plan: -c/w immunosuppresive meds as per med list - prednisone, hydrocortisone, mycophenolate, tacrolimus -tacrolimus level -commincate with patient's renal transplant MD during day Code(s): Z94.0 - KIDNEY TRANSPLANT STATUS
[2018-10-12] MEDS: CEFTRIAXONE 1 GM in DEXTROSE 5%-WATER - 50 ML IVPB SCH (13:41)
[2018-10-12] MEDS: ATORVASTATIN CA 80 MG TABLET (FP) PO SCH (21:39)
[2018-10-12] MEDS: TAMSULOSIN HCL 0.4 MG CAP PO SCH (21:40)
[2018-10-13] MEDS: INSULIN SLIDING SCALE (NOVOLOG) 1 VIAL SQ SCH ×3 (06:31→17:09)
[2018-10-13] MEDS: INSULIN (LEVEMIR) 100 UNITS/ML UNITS SQ SCH ×2 (06:31→21:13)
[2018-10-13] MEDS: ALBUTEROL SO4 2.5/IPRATROPIUM 0.5 INH SOL 3 ML VIAL.NEB. NEB SCH ×4 (07:25→20:15)
[2018-10-13 08:14] LABS: BASO % 0.1 % (0-2.0); EOS % 0.9 % (0-4.5); HEMATOCRIT 33.3 % (35.4-49); HEMOGLOBIN 11.7 GM/dL (11.7-16.9); LYMPH % 21.5 % (8-40); MCH 31.1 pg (25.7-33.7); MEAN PLT VOLUME 7.8 fl (7.5-11.1); MONO % 8.1 % (3.8-10.2); NEUT % 69.4 % (42.8-82.8); PLATELET COUNT 170 K/MM3 (134-434); RBC 3.75 M/mm3 (4.00-5.60); RDW 16.7 % (11.9-15.9); WHITE BLOOD COUNT 7.4 K/mm3 (4.0-10.0)
[2018-10-13 08:31] LABS: ALBUMIN 2.6 g/dl (3.4-5.0); ALK PHOS 82 U/L (45-117); ANION GAP 7 MMOL/L (8-16); BILIRUBIN,TOTAL 0.4 mg/dL (0.2-1); BLOOD UREA NITROGEN 35 mg/dL (7-18); CALCIUM 7.9 mg/dL (8.5-10.1); CHLORIDE 103 mmol/L (98-107); CO2 31 mmol/L (21-32); CREATININE 1.1 mg/dL (0.55-1.3); GLUCOSE,RANDOM 163 mg/dL (74-106); POTASSIUM 3.8 mmol/L (3.5-5.1); SGOT/AST 13 U/L (15-37); SGPT/ALT 27 U/L (13-61); SODIUM 141 mmol/L (136-145); TOT PROT 4.8 g/dl (6.4-8.2)
[2018-10-13] MEDS ORDERED: FUROSEMIDE 40 MG TABLET (FP) PO SCH (10:00)
--- NOTE | 2018-10-13 10:41 | CONS ---
DATE OF CONSULTATION: 10/12/2018 HISTORY OF PRESENT ILLNESS: The patient is a 78-year-old male status post renal transplant, on immunosuppressive therapy, evaluated for possible sepsis. He was admitted to the hospital on October 10, 2018, with altered mental status. According to the notes he had had confusion and uncontrolled blood sugars at home. He was brought to the emergency room where a CAT scan of the head was performed and was negative for acute infiltrate. He was admitted for possible sepsis with toxic metabolic encephalopathy. At the present time he is awake and responsive. He offers no focal complaint. He denies any high-grade fever, shaking chills, labored breathing, cough, sputum production, hemoptysis, vomiting, diarrhea or dysuria. Chest x-ray on admission showed possible right lower lobe pneumonia. Patient recently hospitalized with MRSA bacteremia felt secondary to skin infection, right 4th finger. Received 28-day course of vancomycin. PAST MEDICAL HISTORY: Positive for renal transplant in 2008, hypertension, hyperlipidemia, diabetes mellitus, congestive heart failure, DVT, history of cardiopulmonary arrest. PAST SURGICAL HISTORY: Status post IVC filter and right upper extremity AV fistula. ALLERGIES: No known allergies. MEDICATIONS: Include prednisone 15 mg daily; Flomax; Eliquis; Cymbalta; Coreg; Norvasc; Lipitor; mycophenolate; tacrolimus; Lasix. SOCIAL HISTORY: He resides at home in the community. He has had recent hospitalizations. Nonsmoker. Nondrinker. SYSTEMS REVIEW:Neurologic: Positive for altered mental status. No loss of consciousness, seizure activity or focal weakness. Cardiac: Negative chest pain or palpitations. Respiratory: Negative cough or sputum production. Gastrointestinal: Negative vomiting or diarrhea. Genitourinary: As per HPI. LABORATORY DATA: White blood cell count 10.5, hematocrit 35.1, platelet count 180. BUN 37, creatinine 1.3. Urinalysis: Negative leukocyte esterase. PHYSICAL EXAMINATION:General: The patient is awake and alert. He is not acutely toxic appearing. Appears to be answering questions appropriately. Vital Signs: Temperature 98.5, pulse 82, blood pressure 143/50, pulse 18 per minute. HEENT: Sclerae anicteric. Cardiac: Heart sounds S1, S2. Lungs: Clear bilaterally. Diminished breath sounds at the bases. Abdomen: Soft. No tenderness elicited. No mass, rebound or rigidity. Extremities: Negative for edema. There is an AV graft present in the right upper extremity. There is a dry eschar involving the right 4th finger. It does not appear to be infected. No erythema or purulent drainage. IMPRESSION: 1. Possible toxic metabolic encephalopathy. 2. Rule out right lower lobe pneumonia. 3. History of recent methicillin-resistant Staphylococcus aureus bacteremia, possibly secondary to finger infection. 4. Endstage renal disease, on hemodialysis. RECOMMENDATIONS: Await cultures. Empiric antibiotic coverage with ceftriaxone and stat dose vancomycin. Further recommendations pending sepsis workup. Will follow. Thank you for the kind referral. EDGAR GOINS M.D. [id number]
[2018-10-13] MEDS ORDERED: DEXTROSE 5%-WATER - 50 ML IVPB ONE (11:09)
[2018-10-13] MEDS ORDERED: PT OWN MED DRAWER 7, Y5N ONE (11:09)
[2018-10-13] MEDS ORDERED: cefTRIAXone SODIUM 1 GM VIAL ONE (11:09)
[2018-10-13] MEDS: predniSONE 5 MG TABLET (UD) PO SCH (11:13)
[2018-10-13] MEDS: amLODIPine BESYLATE 10 MG TABLET (FP) PO SCH (11:13)
[2018-10-13] MEDS: CARVEDILOL 25 MG TABLET (FP) PO SCH ×2 (11:13→21:13)
[2018-10-13] MEDS: APIXABAN 5 MG TABLET PO SCH ×2 (11:13→21:13)
[2018-10-13] MEDS: MYCOPHENOLATE SODIUM 360 MG TABLET.DR PO SCH ×2 (11:13→21:14)
[2018-10-13] MEDS: DULoxetine HCL 20 MG CAPSULE.DR (FP) PO SCH ×2 (11:14→21:13)
[2018-10-13] MEDS: CEFTRIAXONE 1 GM in DEXTROSE 5%-WATER - 50 ML IVPB SCH (11:15)
[2018-10-13] MEDS: TACROLIMUS ANHYDROUS 1 MG CAPSULE PO SCH ×2 (11:15→21:14)
--- NOTE | 2018-10-13 11:23 | PN ---
Progress Note, Physician - Current Medication List Current Medications: Active Medications Albuterol/Ipratropium (Duoneb -) 1 amp NEB RQID [facility] Last Admin: 10/13/18 07:25 Dose: 1 amp Amlodipine Besylate (Norvasc -) 10 mg PO DAILY [facility] Last Admin: 10/13/18 11:13 Dose: 10 mg Apixaban (Eliquis -) 5 mg PO BID [facility] Last Admin: 10/13/18 11:13 Dose: 5 mg Atorvastatin Calcium (Lipitor -) 80 mg PO HS [facility] Last Admin: 10/12/18 21:39 Dose: 80 mg Carvedilol (Coreg -) 25 mg PO BID [facility] Last Admin: 10/13/18 11:13 Dose: 25 mg Duloxetine HCl (Cymbalta -) 20 mg PO BID [facility] Last Admin: 10/13/18 11:14 Dose: 20 mg Furosemide (Lasix -) 40 mg PO DAILY [facility] Last Admin: 10/13/18 11:14 Dose: 40 mg Ceftriaxone Sodium 1 gm/ (Dextrose) 50 mls @ 100 mls/hr IVPB DAILY [facility]; Protocol Last Admin: 10/13/18 11:15 Dose: 100 mls/hr Insulin Aspart (Novolog Vial Sliding Scale -) 1 vial SQ TIDAC [facility]; Protocol Last Admin: 10/13/18 06:31 Dose: 2 units Insulin Detemir (Levemir Vial) 25 units SQ AM [facility] Last Admin: 10/13/18 06:31 Dose: 25 unit Insulin Detemir (Levemir Vial) 10 units SQ HS [facility] Last Admin: 10/12/18 21:40 Dose: 10 units Mycophenolate Sodium (Mycophenolic Acid) 360 mg PO BID [facility] Last Admin: 10/13/18 11:13 Dose: 360 mg Prednisone (Deltasone -) 15 mg PO DAILY [facility] Last Admin: 10/13/18 11:13 Dose: 15 mg Tacrolimus (Prograf) 1 mg PO BID [facility] Last Admin: 10/13/18 11:15 Dose: 1 mg Tamsulosin HCl (Flomax -) 0.4 mg PO HS [facility] Last Admin: 10/12/18 21:40 Dose: 0.4 mg - Objective Vital Signs: Vital Signs Temperature 97.8 F 10/13/18 09:04 Pulse Rate 88 10/13/18 09:04 Respiratory Rate 20 10/13/18 09:04 Blood Pressure 139/71 10/13/18 09:04 O2 Sat by Pulse Oximetry (%) 98 10/12/18 21:00 Cardiovascular: Yes: S1, S2 Respiratory: Yes: Regular, CTA Bilaterally Gastrointestinal: Yes: Normal Bowel Sounds, Soft. No: Tenderness Labs: CBC, BMP 10/13/18 07:00 10/13/18 07:00 Problem List - Problems (1) Change in mental status Assessment/Plan: - uncertain baseline, however patient is unable to cooperate with interview and does not follow commands. -No focal neurological deficits noted on exam and no history of focal deficits. -Head CT unremarkable for any acute intracranial insults. May be from uremia or hyperglycemia or narcotics (oxycodone in home med list). -neurology consult -tsh -vit b12 level -rpr -urine drug screen -avoid sedatives or narcotics -bed rest, fall precautions -ekg -control glucose Code(s): R41.82 - ALTERED MENTAL STATUS, UNSPECIFIED Qualifiers: Altered mental status type: unspecified Qualified Code(s): R41.82 - Altered mental status, unspecified (2) CHF (congestive heart failure) Assessment/Plan: #Fluid overload with anasarca, 2+ pitting edema in all extremities, high BNP. Possibly secondary to failing renal transplant? Possible CHF exacerbation. -Furosemide 40mg IVP stat and 40mg IVP daily -i/o -daily weights -avoid IV fluids -renal consult for possible dialysis -avoid nephrotoxins -transthoracic echo -carvedilol- home dose Code(s): I50.9 - HEART FAILURE, UNSPECIFIED Qualifiers: Heart failure type: unspecified Heart failure chronicity: unspecified Qualified Code(s): I50.9 - Heart failure, unspecified (3) DM2 (diabetes mellitus, type 2) Assessment/Plan: -bgm Code(s): E11.9 - TYPE 2 DIABETES MELLITUS WITHOUT COMPLICATIONS Qualifiers: Diabetes mellitus emt intermediate insulin use: with emt intermediate use (4) Kidney transplant recipient Assessment/Plan: -c/w immunosuppresive meds as per med list - prednisone, hydrocortisone, mycophenolate, tacrolimus -tacrolimus level -commincate with patient's renal transplant MD during day Code(s): Z94.0 - KIDNEY TRANSPLANT STATUS
--- NOTE | 2018-10-13 14:15 | PN ---
Progress Note, Physician History of Present Illness: Awake, alert Offers no complaints No c/o chest pain/ cough No c/o dysuria Afebrile BC (-) Urine c/s Proteus sp. - Current Medication List Current Medications: Active Medications Albuterol/Ipratropium (Duoneb -) 1 amp NEB RQID [facility] Last Admin: 10/13/18 11:25 Dose: 1 amp Amlodipine Besylate (Norvasc -) 10 mg PO DAILY [facility] Last Admin: 10/13/18 11:13 Dose: 10 mg Apixaban (Eliquis -) 5 mg PO BID [facility] Last Admin: 10/13/18 11:13 Dose: 5 mg Atorvastatin Calcium (Lipitor -) 80 mg PO HS [facility] Last Admin: 10/12/18 21:39 Dose: 80 mg Carvedilol (Coreg -) 25 mg PO BID [facility] Last Admin: 10/13/18 11:13 Dose: 25 mg Duloxetine HCl (Cymbalta -) 20 mg PO BID [facility] Last Admin: 10/13/18 11:14 Dose: 20 mg Furosemide (Lasix -) 40 mg PO DAILY [facility] Last Admin: 10/13/18 11:14 Dose: 40 mg Ceftriaxone Sodium 1 gm/ (Dextrose) 50 mls @ 100 mls/hr IVPB DAILY [facility]; Protocol Last Admin: 10/13/18 11:15 Dose: 100 mls/hr Insulin Aspart (Novolog Vial Sliding Scale -) 1 vial SQ TIDAC [facility]; Protocol Last Admin: 10/13/18 12:04 Dose: 2 units Insulin Detemir (Levemir Vial) 25 units SQ AM [facility] Last Admin: 10/13/18 06:31 Dose: 25 unit Insulin Detemir (Levemir Vial) 10 units SQ HS [facility] Last Admin: 10/12/18 21:40 Dose: 10 units Mycophenolate Sodium (Mycophenolic Acid) 360 mg PO BID [facility] Last Admin: 10/13/18 11:13 Dose: 360 mg Prednisone (Deltasone -) 15 mg PO DAILY [facility] Last Admin: 10/13/18 11:13 Dose: 15 mg Tacrolimus (Prograf) 1 mg PO BID [facility] Last Admin: 10/13/18 11:15 Dose: 1 mg Tamsulosin HCl (Flomax -) 0.4 mg PO HS [facility] Last Admin: 10/12/18 21:40 Dose: 0.4 mg - Objective Vital Signs: Vital Signs Temperature 97.8 F 10/13/18 09:04 Pulse Rate 88 10/13/18 09:04 Respiratory Rate 20 10/13/18 09:04 Blood Pressure 139/71 10/13/18 09:04 O2 Sat by Pulse Oximetry (%) 98 10/12/18 21:00 Constitutional: Yes: No Distress Eyes: Yes: Conjunctiva Clear Cardiovascular: Yes: Regular Rate and Rhythm, S1, S2 Respiratory: Yes: CTA Bilaterally Gastrointestinal: Yes: Normal Bowel Sounds, Soft. No: Tenderness Labs: CBC, BMP 10/13/18 07:00 10/13/18 07:00 Assessment/Plan R/O peumonia Toxic-metabolic encephalopathy improved ?UTI CKD S/P renal transplant on immunosuppressive tx Check BC Continue ceftriaxone
--- NOTE | 2018-10-13 15:55 | PN ---
Progress Note, Physician History of Present Illness: Pt seen and examined at bedside. He denies shortness of breath. He remains confused. - Current Medication List Current Medications: Active Medications Albuterol/Ipratropium (Duoneb -) 1 amp NEB RQID [facility] Last Admin: 10/13/18 11:25 Dose: 1 amp Amlodipine Besylate (Norvasc -) 10 mg PO DAILY [facility] Last Admin: 10/13/18 11:13 Dose: 10 mg Apixaban (Eliquis -) 5 mg PO BID [facility] Last Admin: 10/13/18 11:13 Dose: 5 mg Atorvastatin Calcium (Lipitor -) 80 mg PO HS [facility] Last Admin: 10/12/18 21:39 Dose: 80 mg Carvedilol (Coreg -) 25 mg PO BID [facility] Last Admin: 10/13/18 11:13 Dose: 25 mg Duloxetine HCl (Cymbalta -) 20 mg PO BID [facility] Last Admin: 10/13/18 11:14 Dose: 20 mg Furosemide (Lasix -) 40 mg PO DAILY [facility] Last Admin: 10/13/18 11:14 Dose: 40 mg Ceftriaxone Sodium 1 gm/ (Dextrose) 50 mls @ 100 mls/hr IVPB DAILY [facility]; Protocol Last Admin: 10/13/18 11:15 Dose: 100 mls/hr Insulin Aspart (Novolog Vial Sliding Scale -) 1 vial SQ TIDAC [facility]; Protocol Last Admin: 10/13/18 12:04 Dose: 2 units Insulin Detemir (Levemir Vial) 25 units SQ AM [facility] Last Admin: 10/13/18 06:31 Dose: 25 unit Insulin Detemir (Levemir Vial) 10 units SQ HS [facility] Last Admin: 10/12/18 21:40 Dose: 10 units Mycophenolate Sodium (Mycophenolic Acid) 360 mg PO BID [facility] Last Admin: 10/13/18 11:13 Dose: 360 mg Prednisone (Deltasone -) 15 mg PO DAILY [facility] Last Admin: 10/13/18 11:13 Dose: 15 mg Tacrolimus (Prograf) 1 mg PO BID [facility] Last Admin: 10/13/18 11:15 Dose: 1 mg Tamsulosin HCl (Flomax -) 0.4 mg PO HS [facility] Last Admin: 10/12/18 21:40 Dose: 0.4 mg - Objective Vital Signs: Vital Signs Temperature 97.8 F 10/13/18 09:04 Pulse Rate 88 10/13/18 09:04 Respiratory Rate 20 10/13/18 09:04 Blood Pressure 139/71 10/13/18 09:04 O2 Sat by Pulse Oximetry (%) 98 10/12/18 21:00 Constitutional: Yes: Calm Eyes: Yes: Conjunctiva Clear HENT: Yes: Atraumatic Cardiovascular: Yes: S1, S2 Respiratory: Yes: CTA Bilaterally Gastrointestinal: Yes: Soft Genitourinary: Yes: WNL Edema: Yes Edema: LLE: 1+, RLE: 1+ Neurological: Yes: Confusion Labs: CBC, BMP 10/13/18 07:00 10/13/18 07:00 Problem List - Problems (1) CHF (congestive heart failure) Code(s): I50.9 - HEART FAILURE, UNSPECIFIED Qualifiers: Heart failure type: unspecified Heart failure chronicity: unspecified Qualified Code(s): I50.9 - Heart failure, unspecified (2) Change in mental status Code(s): R41.82 - ALTERED MENTAL STATUS, UNSPECIFIED Qualifiers: Altered mental status type: unspecified Qualified Code(s): R41.82 - Altered mental status, unspecified (3) Hyperglycemia Code(s): R73.9 - HYPERGLYCEMIA, UNSPECIFIED Assessment/Plan Current Medications Generic Name Dose Route Start Last Admin Trade Name Freq PRN Reason Stop Dose Admin Albuterol/Ipratropium 1 amp 10/10/18 22:00 10/13/18 11:25 Duoneb - NEB 1 amp RQID [facility] Administration Amlodipine Besylate 10 mg 10/11/18 10:00 10/13/18 11:13 Norvasc - PO 10 mg DAILY [facility] Administration Apixaban 5 mg 10/10/18 22:00 10/13/18 11:13 Eliquis - PO 5 mg BID [facility] Administration Atorvastatin Calcium 80 mg 10/10/18 22:45 10/12/18 21:39 Lipitor - PO 80 mg HS [facility] Administration Carvedilol 25 mg 10/10/18 22:00 10/13/18 11:13 Coreg - PO 25 mg BID [facility] Administration Duloxetine HCl 20 mg 10/10/18 22:00 10/13/18 11:14 Cymbalta - PO 20 mg BID [facility] Administration Furosemide 40 mg 10/13/18 10:00 10/13/18 11:14 Lasix - PO 40 mg DAILY [facility] Administration Ceftriaxone Sodium 1 gm/ 50 mls @ 100 mls/hr 10/12/18 12:00 10/13/18 11:15 Dextrose IVPB 100 mls/hr DAILY [facility] Administration Protocol Insulin Aspart 1 vial 10/11/18 07:00 10/13/18 12:04 Novolog Vial Sliding Scale - SQ 2 units TIDAC [facility] Administration Protocol Insulin Detemir 25 units 10/11/18 07:00 10/13/18 06:31 Levemir Vial SQ 25 unit AM [facility] Administration Insulin Detemir 10 units 10/12/18 22:00 10/12/18 21:40 Levemir Vial SQ 10 units HS [facility] Administration Mycophenolate Sodium 360 mg 10/10/18 22:00 10/13/18 11:13 Mycophenolic Acid PO 360 mg BID [facility] Administration Prednisone 15 mg 10/12/18 12:48 10/13/18 11:13 Deltasone - PO 15 mg DAILY [facility] Administration Tacrolimus 1 mg 10/10/18 22:00 10/13/18 11:15 Prograf PO 1 mg BID [facility] Administration Tamsulosin HCl 0.4 mg 10/10/18 22:00 10/12/18 21:40 Flomax - PO 0.4 mg HS [facility] Administration Impression 1. CKD 2. kidney transplant 3. DM with labile blood pressure 4. hx of syncope 5. HTN 6. hyperlipidemia 7. CHF 8. acute resp failure s/p intubation 9. Hx DVT - pt has IVC filter Plan - pt has significant edema, will change lasix back to IV and give a dose now - repeat labs in am - follow prograf level, first level likely inaccurate - still unclear why he was on 20 mg of prednisone, dose decrease to 15, will taper to 5 mg. - repeat labs in am - follow prograf level - will follow - avoid nsaids and nephrotoxins - monitor pulse ox
[2018-10-13] MEDS: FUROSEMIDE 40 MG/4 ML INJECTABLE VIAL IVPUSH SCH (16:04)
[2018-10-13] MEDS: TAMSULOSIN HCL 0.4 MG CAP PO SCH (21:13)
[2018-10-13] MEDS: ATORVASTATIN CA 80 MG TABLET (FP) PO SCH (21:13)
[2018-10-14] MEDS: INSULIN SLIDING SCALE (NOVOLOG) 1 VIAL SQ SCH ×3 (06:18→17:24)
[2018-10-14] MEDS: INSULIN (LEVEMIR) 100 UNITS/ML UNITS SQ SCH ×2 (06:35→22:13)
[2018-10-14] MEDS: ALBUTEROL SO4 2.5/IPRATROPIUM 0.5 INH SOL 3 ML VIAL.NEB. NEB SCH ×4 (07:40→19:59)
[2018-10-14] MEDS ORDERED: cefTRIAXone SODIUM 1 GM VIAL ONE (09:37)
[2018-10-14] MEDS ORDERED: DEXTROSE 5%-WATER - 50 ML IVPB ONE (09:37)
[2018-10-14] MEDS: DULoxetine HCL 20 MG CAPSULE.DR (FP) PO SCH ×2 (10:22→22:09)
[2018-10-14] MEDS: CEFTRIAXONE 1 GM in DEXTROSE 5%-WATER - 50 ML IVPB SCH (10:22)
[2018-10-14] MEDS: MYCOPHENOLATE SODIUM 360 MG TABLET.DR PO SCH ×2 (10:23→22:39)
[2018-10-14] MEDS: CARVEDILOL 25 MG TABLET (FP) PO SCH ×2 (10:23→22:09)
[2018-10-14] MEDS: APIXABAN 5 MG TABLET PO SCH ×2 (10:23→22:09)
[2018-10-14] MEDS: amLODIPine BESYLATE 10 MG TABLET (FP) PO SCH (10:23)
[2018-10-14] MEDS: predniSONE 5 MG TABLET (UD) PO SCH (10:23)
[2018-10-14] MEDS: FUROSEMIDE 40 MG/4 ML INJECTABLE VIAL IVPUSH SCH (10:24)
[2018-10-14] MEDS: TACROLIMUS ANHYDROUS 1 MG CAPSULE PO SCH ×2 (10:24→22:39)
--- NOTE | 2018-10-14 12:25 | PN ---
Progress Note, Physician - Current Medication List Current Medications: Active Medications Albuterol/Ipratropium (Duoneb -) 1 amp NEB RQID [facility] Last Admin: 10/14/18 07:40 Dose: 1 amp Amlodipine Besylate (Norvasc -) 10 mg PO DAILY [facility] Last Admin: 10/14/18 10:23 Dose: 10 mg Apixaban (Eliquis -) 5 mg PO BID [facility] Last Admin: 10/14/18 10:23 Dose: 5 mg Atorvastatin Calcium (Lipitor -) 80 mg PO HS [facility] Last Admin: 10/13/18 21:13 Dose: 80 mg Carvedilol (Coreg -) 25 mg PO BID [facility] Last Admin: 10/14/18 10:23 Dose: 25 mg Duloxetine HCl (Cymbalta -) 20 mg PO BID [facility] Last Admin: 10/14/18 10:22 Dose: 20 mg Furosemide (Lasix Injection -) 40 mg IVPUSH DAILY [facility] Last Admin: 10/14/18 10:24 Dose: 40 mg Ceftriaxone Sodium 1 gm/ (Dextrose) 50 mls @ 100 mls/hr IVPB DAILY [facility]; Protocol Last Admin: 10/14/18 10:22 Dose: 100 mls/hr Insulin Aspart (Novolog Vial Sliding Scale -) 1 vial SQ TIDAC [facility]; Protocol Last Admin: 10/14/18 12:14 Dose: 4 units Insulin Detemir (Levemir Vial) 25 units SQ AM [facility] Last Admin: 10/14/18 06:35 Dose: 25 unit Insulin Detemir (Levemir Vial) 10 units SQ HS [facility] Last Admin: 10/13/18 21:13 Dose: 10 units Mycophenolate Sodium (Mycophenolic Acid) 360 mg PO BID [facility] Last Admin: 10/14/18 10:23 Dose: 360 mg Prednisone (Deltasone -) 15 mg PO DAILY [facility] Last Admin: 10/14/18 10:23 Dose: 15 mg Tacrolimus (Prograf) 1 mg PO BID [facility] Last Admin: 10/14/18 10:24 Dose: 1 mg Tamsulosin HCl (Flomax -) 0.4 mg PO HS [facility] Last Admin: 10/13/18 21:13 Dose: 0.4 mg - Objective Vital Signs: Vital Signs Temperature 98.5 F 10/14/18 05:55 Pulse Rate 72 10/14/18 05:55 Respiratory Rate 20 10/14/18 05:55 Blood Pressure 136/66 10/14/18 05:55 O2 Sat by Pulse Oximetry (%) 98 10/13/18 21:00 Cardiovascular: Yes: Regular Rate and Rhythm Respiratory: Yes: Regular, CTA Bilaterally Gastrointestinal: Yes: Normal Bowel Sounds, Soft Labs: CBC, BMP 10/13/18 07:00 10/13/18 07:00 Problem List - Problems (1) Change in mental status Assessment/Plan: - uncertain baseline, however patient is unable to cooperate with interview and does not follow commands. -No focal neurological deficits noted on exam and no history of focal deficits. -Head CT unremarkable for any acute intracranial insults. May be from uremia or hyperglycemia or narcotics (oxycodone in home med list). -neurology consult -tsh -vit b12 level -rpr -urine drug screen -avoid sedatives or narcotics -bed rest, fall precautions -ekg -control glucose Code(s): R41.82 - ALTERED MENTAL STATUS, UNSPECIFIED Qualifiers: Altered mental status type: unspecified Qualified Code(s): R41.82 - Altered mental status, unspecified (2) CHF (congestive heart failure) Assessment/Plan: #Fluid overload with anasarca, 2+ pitting edema in all extremities, high BNP. Possibly secondary to failing renal transplant? Possible CHF exacerbation. -Furosemide 40mg IVP stat and 40mg IVP daily -i/o -daily weights -avoid IV fluids -renal consult for possible dialysis -avoid nephrotoxins -transthoracic echo -carvedilol- home dose Code(s): I50.9 - HEART FAILURE, UNSPECIFIED Qualifiers: Heart failure type: unspecified Heart failure chronicity: unspecified Qualified Code(s): I50.9 - Heart failure, unspecified (3) DM2 (diabetes mellitus, type 2) Assessment/Plan: -bgm Code(s): E11.9 - TYPE 2 DIABETES MELLITUS WITHOUT COMPLICATIONS Qualifiers: Diabetes mellitus watermaster insulin use: with watermaster use (4) Kidney transplant recipient Assessment/Plan: -c/w immunosuppresive meds as per med list - prednisone, hydrocortisone, mycophenolate, tacrolimus -tacrolimus level -commincate with patient's renal transplant MD during day Code(s): Z94.0 - KIDNEY TRANSPLANT STATUS
--- NOTE | 2018-10-14 12:55 | PN ---
Progress Note, Physician History of Present Illness: Awake, alert Offers no complaints No c/o chest pain/ cough No c/o dysuria Afebrile BC (-) Urine c/s Proteus sp. - Current Medication List Current Medications: Active Medications Albuterol/Ipratropium (Duoneb -) 1 amp NEB RQID [facility] Last Admin: 10/14/18 07:40 Dose: 1 amp Amlodipine Besylate (Norvasc -) 10 mg PO DAILY [facility] Last Admin: 10/14/18 10:23 Dose: 10 mg Apixaban (Eliquis -) 5 mg PO BID [facility] Last Admin: 10/14/18 10:23 Dose: 5 mg Atorvastatin Calcium (Lipitor -) 80 mg PO HS [facility] Last Admin: 10/13/18 21:13 Dose: 80 mg Carvedilol (Coreg -) 25 mg PO BID [facility] Last Admin: 10/14/18 10:23 Dose: 25 mg Duloxetine HCl (Cymbalta -) 20 mg PO BID [facility] Last Admin: 10/14/18 10:22 Dose: 20 mg Furosemide (Lasix Injection -) 40 mg IVPUSH DAILY [facility] Last Admin: 10/14/18 10:24 Dose: 40 mg Ceftriaxone Sodium 1 gm/ (Dextrose) 50 mls @ 100 mls/hr IVPB DAILY [facility]; Protocol Last Admin: 10/14/18 10:22 Dose: 100 mls/hr Insulin Aspart (Novolog Vial Sliding Scale -) 1 vial SQ TIDAC [facility]; Protocol Last Admin: 10/14/18 12:14 Dose: 4 units Insulin Detemir (Levemir Vial) 25 units SQ AM [facility] Last Admin: 10/14/18 06:35 Dose: 25 unit Insulin Detemir (Levemir Vial) 10 units SQ HS [facility] Last Admin: 10/13/18 21:13 Dose: 10 units Mycophenolate Sodium (Mycophenolic Acid) 360 mg PO BID [facility] Last Admin: 10/14/18 10:23 Dose: 360 mg Prednisone (Deltasone -) 15 mg PO DAILY [facility] Last Admin: 10/14/18 10:23 Dose: 15 mg Tacrolimus (Prograf) 1 mg PO BID [facility] Last Admin: 10/14/18 10:24 Dose: 1 mg Tamsulosin HCl (Flomax -) 0.4 mg PO HS [facility] Last Admin: 10/13/18 21:13 Dose: 0.4 mg - Objective Vital Signs: Vital Signs Temperature 98.5 F 10/14/18 05:55 Pulse Rate 72 10/14/18 05:55 Respiratory Rate 20 10/14/18 05:55 Blood Pressure 136/66 10/14/18 05:55 O2 Sat by Pulse Oximetry (%) 98 10/13/18 21:00 Constitutional: Yes: No Distress Cardiovascular: Yes: Regular Rate and Rhythm, S1, S2 Respiratory: Yes: Diminished Gastrointestinal: Yes: Normal Bowel Sounds, Soft. No: Tenderness Edema: No Labs: CBC, BMP 10/13/18 07:00 10/13/18 07:00 Assessment/Plan R/O peumonia Toxic-metabolic encephalopathy improved ?UTI CKD S/P renal transplant on immunosuppressive tx Continue ceftriaxone
--- NOTE | 2018-10-14 16:04 | PN ---
Progress Note (short form) - Note Progress Note: RENAL no new complaints comfortable Last Vital Signs Temp Pulse Resp BP Pulse Ox 98.6 F 81 20 122/42 L 98 10/14/18 14:55 10/14/18 14:55 10/14/18 14:55 10/14/18 14:55 10/14/18 09:00 lungs clear cvs s1s2 rr abd soft ext +edema paulo has pain on right 4th digit with an ulceration neuro a+ox3 CBC, BMP 10/13/18 07:00 10/13/18 07:00 Current Medications Generic Name Dose Route Start Last Admin Trade Name Freq PRN Reason Stop Dose Admin Albuterol/Ipratropium 1 amp 10/10/18 22:00 10/14/18 11:45 Duoneb - NEB 1 amp RQID [facility] Administration Amlodipine Besylate 10 mg 10/11/18 10:00 10/14/18 10:23 Norvasc - PO 10 mg DAILY [facility] Administration Apixaban 5 mg 10/10/18 22:00 10/14/18 10:23 Eliquis - PO 5 mg BID [facility] Administration Atorvastatin Calcium 80 mg 10/10/18 22:45 10/13/18 21:13 Lipitor - PO 80 mg HS [facility] Administration Carvedilol 25 mg 10/10/18 22:00 10/14/18 10:23 Coreg - PO 25 mg BID [facility] Administration Duloxetine HCl 20 mg 10/10/18 22:00 10/14/18 10:22 Cymbalta - PO 20 mg BID [facility] Administration Furosemide 40 mg 10/13/18 16:00 10/14/18 10:24 Lasix Injection - IVPUSH 40 mg DAILY [facility] Administration Ceftriaxone Sodium 1 gm/ 50 mls @ 100 mls/hr 10/12/18 12:00 10/14/18 10:22 Dextrose IVPB 100 mls/hr DAILY [facility] Administration Protocol Insulin Aspart 1 vial 10/11/18 07:00 10/14/18 12:14 Novolog Vial Sliding Scale - SQ 4 units TIDAC [facility] Administration Protocol Insulin Detemir 25 units 10/11/18 07:00 10/14/18 06:35 Levemir Vial SQ 25 unit AM [facility] Administration Insulin Detemir 10 units 10/12/18 22:00 10/13/18 21:13 Levemir Vial SQ 10 units HS [facility] Administration Mycophenolate Sodium 360 mg 10/10/18 22:00 10/14/18 10:23 Mycophenolic Acid PO 360 mg BID [facility] Administration Prednisone 15 mg 10/12/18 12:48 10/14/18 10:23 Deltasone - PO 15 mg DAILY [facility] Administration Tacrolimus 1 mg 10/10/18 22:00 10/14/18 10:24 Prograf PO 1 mg BID [facility] Administration Tamsulosin HCl 0.4 mg 10/10/18 22:00 10/13/18 21:13 Flomax - PO 0.4 mg HS [facility] Administration Impression 1. CKD 2. kidney transplant 3. DM with labile blood pressure 4. hx of syncope 5. HTN 6. hyperlipidemia 7. CHF 8. acute resp failure s/p intubation 9. Hx DVT - pt has IVC filter Plan - continue lasix - repeat labs in am -unclear why he was on 20 mg of prednisone, dose decrease to 15, will taper to 5 mg. - repeat labs in am - follow prograf level - avoid nsaids and nephrotoxins - would ask vascular to evaluate fourth digit and consider closing fistula if this would help MV
[2018-10-14] MEDS ORDERED: PT OWN MED DRAWER 7, Y5N ONE (21:41)
[2018-10-14] MEDS: TAMSULOSIN HCL 0.4 MG CAP PO SCH (22:09)
[2018-10-14] MEDS: ATORVASTATIN CA 80 MG TABLET (FP) PO SCH (22:09)
[2018-10-15] MEDS: INSULIN (LEVEMIR) 100 UNITS/ML UNITS SQ SCH ×2 (06:29→21:58)
[2018-10-15] MEDS: INSULIN SLIDING SCALE (NOVOLOG) 1 VIAL SQ SCH ×3 (06:31→17:13)
[2018-10-15] MEDS: ALBUTEROL SO4 2.5/IPRATROPIUM 0.5 INH SOL 3 ML VIAL.NEB. NEB SCH ×4 (07:40→19:23)
[2018-10-15] MEDS ORDERED: DEXTROSE 5%-WATER - 50 ML IVPB ONE (09:27)
[2018-10-15] MEDS ORDERED: cefTRIAXone SODIUM 1 GM VIAL ONE (09:27)
[2018-10-15] MEDS: CEFTRIAXONE 1 GM in DEXTROSE 5%-WATER - 50 ML IVPB SCH (09:52)
[2018-10-15] MEDS: TACROLIMUS ANHYDROUS 1 MG CAPSULE PO SCH ×2 (09:52→21:48)
[2018-10-15] MEDS: MYCOPHENOLATE SODIUM 360 MG TABLET.DR PO SCH ×2 (09:53→21:48)
[2018-10-15] MEDS: DULoxetine HCL 20 MG CAPSULE.DR (FP) PO SCH ×2 (09:53→21:46)
[2018-10-15] MEDS: CARVEDILOL 25 MG TABLET (FP) PO SCH ×2 (09:53→21:46)
[2018-10-15] MEDS: APIXABAN 5 MG TABLET PO SCH ×2 (09:53→21:46)
[2018-10-15] MEDS: amLODIPine BESYLATE 10 MG TABLET (FP) PO SCH (09:53)
[2018-10-15] MEDS: FUROSEMIDE 40 MG/4 ML INJECTABLE VIAL IVPUSH SCH (09:54)
[2018-10-15] MEDS: predniSONE 5 MG TABLET (UD) PO SCH (09:54)
--- NOTE | 2018-10-15 11:43 | PN ---
Progress Note (short form) - Note Progress Note: RENAL no new complaints comfortable lying flat Last Vital Signs Temp Pulse Resp BP Pulse Ox 97.8 F 72 20 123/69 98 10/15/18 06:31 10/15/18 06:31 10/15/18 06:31 10/15/18 06:31 10/14/18 21:00 lungs clear cvs s1s2 rr abd soft ext +edema paulo has pain on right 4th digit with an ulceration neuro a+ox3 CBC, BMP 10/13/18 07:00 10/13/18 07:00 Current Medications Generic Name Dose Route Start Last Admin Trade Name Freq PRN Reason Stop Dose Admin Albuterol/Ipratropium 1 amp 10/10/18 22:00 10/15/18 07:40 Duoneb - NEB 1 amp RQID [facility] Administration Amlodipine Besylate 10 mg 10/11/18 10:00 10/15/18 09:53 Norvasc - PO 10 mg DAILY [facility] Administration Apixaban 5 mg 10/10/18 22:00 10/15/18 09:53 Eliquis - PO 5 mg BID [facility] Administration Atorvastatin Calcium 80 mg 10/10/18 22:45 10/14/18 22:09 Lipitor - PO 80 mg HS [facility] Administration Carvedilol 25 mg 10/10/18 22:00 10/15/18 09:53 Coreg - PO 25 mg BID [facility] Administration Duloxetine HCl 20 mg 10/10/18 22:00 10/15/18 09:53 Cymbalta - PO 20 mg BID [facility] Administration Furosemide 40 mg 10/13/18 16:00 10/15/18 09:54 Lasix Injection - IVPUSH 40 mg DAILY [facility] Administration Ceftriaxone Sodium 1 gm/ 50 mls @ 100 mls/hr 10/12/18 12:00 10/15/18 09:52 Dextrose IVPB 100 mls/hr DAILY [facility] Administration Protocol Insulin Aspart 1 vial 10/11/18 07:00 10/15/18 06:31 Novolog Vial Sliding Scale - SQ Not Given TIDAC [facility] Protocol Insulin Detemir 25 units 10/11/18 07:00 10/15/18 06:29 Levemir Vial SQ 25 unit AM [facility] Administration Insulin Detemir 10 units 10/12/18 22:00 10/14/18 22:13 Levemir Vial SQ 10 units HS [facility] Administration Mycophenolate Sodium 360 mg 10/10/18 22:00 10/15/18 09:53 Mycophenolic Acid PO 360 mg BID [facility] Administration Prednisone 15 mg 10/12/18 12:48 10/15/18 09:54 Deltasone - PO 15 mg DAILY [facility] Administration Tacrolimus 1 mg 10/10/18 22:00 10/15/18 09:52 Prograf PO 1 mg BID [facility] Administration Tamsulosin HCl 0.4 mg 10/10/18 22:00 10/14/18 22:09 Flomax - PO 0.4 mg HS [facility] Administration Impression 1. CKD 2. kidney transplant 3. DM with labile blood pressure 4. hx of syncope 5. HTN 6. hyperlipidemia 7. CHF 8. acute resp failure s/p intubation 9. Hx DVT - pt has IVC filter Plan - continue lasix - repeat labs in am - steroid taper. - follow prograf level- still pending - avoid nsaids and nephrotoxins - would ask vascular to evaluate fourth digit and consider closing fistula if this would help MV
--- NOTE | 2018-10-15 12:47 | PN ---
Progress Note, Physician - Current Medication List Current Medications: Active Medications Albuterol/Ipratropium (Duoneb -) 1 amp NEB RQID [facility] Last Admin: 10/15/18 11:35 Dose: 1 amp Amlodipine Besylate (Norvasc -) 10 mg PO DAILY [facility] Last Admin: 10/15/18 09:53 Dose: 10 mg Apixaban (Eliquis -) 5 mg PO BID [facility] Last Admin: 10/15/18 09:53 Dose: 5 mg Atorvastatin Calcium (Lipitor -) 80 mg PO HS [facility] Last Admin: 10/14/18 22:09 Dose: 80 mg Carvedilol (Coreg -) 25 mg PO BID [facility] Last Admin: 10/15/18 09:53 Dose: 25 mg Duloxetine HCl (Cymbalta -) 20 mg PO BID [facility] Last Admin: 10/15/18 09:53 Dose: 20 mg Furosemide (Lasix Injection -) 40 mg IVPUSH DAILY [facility] Last Admin: 10/15/18 09:54 Dose: 40 mg Ceftriaxone Sodium 1 gm/ (Dextrose) 50 mls @ 100 mls/hr IVPB DAILY [facility]; Protocol Last Admin: 10/15/18 09:52 Dose: 100 mls/hr Insulin Aspart (Novolog Vial Sliding Scale -) 1 vial SQ TIDAC [facility]; Protocol Last Admin: 10/15/18 12:36 Dose: 2 units Insulin Detemir (Levemir Vial) 25 units SQ AM [facility] Last Admin: 10/15/18 06:29 Dose: 25 unit Insulin Detemir (Levemir Vial) 10 units SQ HS [facility] Last Admin: 10/14/18 22:13 Dose: 10 units Mycophenolate Sodium (Mycophenolic Acid) 360 mg PO BID [facility] Last Admin: 10/15/18 09:53 Dose: 360 mg Prednisone (Deltasone -) 15 mg PO DAILY [facility] Last Admin: 10/15/18 09:54 Dose: 15 mg Tacrolimus (Prograf) 1 mg PO BID [facility] Last Admin: 10/15/18 09:52 Dose: 1 mg Tamsulosin HCl (Flomax -) 0.4 mg PO HS [facility] Last Admin: 10/14/18 22:09 Dose: 0.4 mg - Objective Vital Signs: Vital Signs Temperature 97.8 F 10/15/18 06:31 Pulse Rate 72 10/15/18 06:31 Respiratory Rate 20 10/15/18 06:31 Blood Pressure 123/69 10/15/18 06:31 O2 Sat by Pulse Oximetry (%) 98 10/14/18 21:00 Cardiovascular: Yes: S1, S2 Respiratory: Yes: Regular, CTA Bilaterally Gastrointestinal: Yes: Normal Bowel Sounds, Soft Labs: CBC, BMP 10/13/18 07:00 10/13/18 07:00 Problem List - Problems (1) Change in mental status Assessment/Plan: - uncertain baseline, however patient is unable to cooperate with interview and does not follow commands. -No focal neurological deficits noted on exam and no history of focal deficits. -Head CT unremarkable for any acute intracranial insults. May be from uremia or hyperglycemia or narcotics (oxycodone in home med list). -neurology consult -tsh -vit b12 level -rpr -urine drug screen -avoid sedatives or narcotics -bed rest, fall precautions -ekg -control glucose Code(s): R41.82 - ALTERED MENTAL STATUS, UNSPECIFIED Qualifiers: Altered mental status type: unspecified Qualified Code(s): R41.82 - Altered mental status, unspecified (2) CHF (congestive heart failure) Assessment/Plan: #Fluid overload with anasarca, 2+ pitting edema in all extremities, high BNP. Possibly secondary to failing renal transplant? Possible CHF exacerbation. -Furosemide 40mg IVP stat and 40mg IVP daily -i/o -daily weights -avoid IV fluids -renal consult for possible dialysis -avoid nephrotoxins -transthoracic echo -carvedilol- home dose Code(s): I50.9 - HEART FAILURE, UNSPECIFIED Qualifiers: Heart failure type: unspecified Heart failure chronicity: unspecified Qualified Code(s): I50.9 - Heart failure, unspecified (3) DM2 (diabetes mellitus, type 2) Assessment/Plan: -bgm Code(s): E11.9 - TYPE 2 DIABETES MELLITUS WITHOUT COMPLICATIONS Qualifiers: Diabetes mellitus assisted insulin use: with hearing examiner use (4) Kidney transplant recipient Assessment/Plan: -c/w immunosuppresive meds as per med list - prednisone, hydrocortisone, mycophenolate, tacrolimus -tacrolimus level -commincate with patient's renal transplant MD during day Code(s): Z94.0 - KIDNEY TRANSPLANT STATUS
[2018-10-15] MEDS ORDERED: PT OWN MED DRAWER 7, Y5N ONE (20:38)
[2018-10-15] MEDS: ATORVASTATIN CA 80 MG TABLET (FP) PO SCH (21:46)
[2018-10-15] MEDS: TAMSULOSIN HCL 0.4 MG CAP PO SCH (21:46)
[2018-10-16] MEDS: INSULIN SLIDING SCALE (NOVOLOG) 1 VIAL SQ SCH ×3 (06:20→16:46)
[2018-10-16 06:35] LABS: BASO % 0.5 % (0-2.0); EOS % 1.7 % (0-4.5); HEMATOCRIT 38.9 % (35.4-49); HEMOGLOBIN 12.4 GM/dL (11.7-16.9); MCH 28.6 pg (25.7-33.7); MEAN CELL VOLUME 89.4 fl (80-96); MEAN PLT VOLUME 7.8 fl (7.5-11.1); MONO % 10.5 % (3.8-10.2); NEUT % 64.3 % (42.8-82.8); PLATELET COUNT 164 K/MM3 (134-434); RBC 4.35 M/mm3 (4.00-5.60); WHITE BLOOD COUNT 8.6 K/mm3 (4.0-10.0)
[2018-10-16] MEDS: INSULIN (LEVEMIR) 100 UNITS/ML UNITS SQ SCH (06:37)
[2018-10-16] MEDS ORDERED: INSULIN (NOVOLOG) ASPART 100 UNITS/ML 10ML VIAL ONE (06:40)
[2018-10-16 07:09] LABS: ANION GAP 6 MMOL/L (8-16); BLOOD UREA NITROGEN 29 mg/dL (7-18); CALCIUM 8.3 mg/dL (8.5-10.1); CHLORIDE 99 mmol/L (98-107); CO2 32 mmol/L (21-32); CREATININE 0.9 mg/dL (0.55-1.3); GLUCOSE,RANDOM 112 mg/dL (74-106); POTASSIUM 3.8 mmol/L (3.5-5.1); SODIUM 138 mmol/L (136-145)
[2018-10-16] MEDS ORDERED: cefTRIAXone SODIUM 1 GM VIAL ONE (09:31)
[2018-10-16] MEDS ORDERED: DEXTROSE 5%-WATER - 50 ML IVPB ONE (09:31)
[2018-10-16] MEDS: CEFTRIAXONE 1 GM in DEXTROSE 5%-WATER - 50 ML IVPB SCH (09:32)
[2018-10-16] MEDS: MYCOPHENOLATE SODIUM 360 MG TABLET.DR PO SCH (09:33)
[2018-10-16] MEDS: DULoxetine HCL 20 MG CAPSULE.DR (FP) PO SCH (09:33)
[2018-10-16] MEDS: CARVEDILOL 25 MG TABLET (FP) PO SCH (09:33)
[2018-10-16] MEDS: APIXABAN 5 MG TABLET PO SCH (09:33)
[2018-10-16] MEDS: TACROLIMUS ANHYDROUS 1 MG CAPSULE PO SCH (09:33)
[2018-10-16] MEDS: predniSONE 5 MG TABLET (UD) PO SCH (09:33)
[2018-10-16] MEDS: amLODIPine BESYLATE 10 MG TABLET (FP) PO SCH (09:33)
[2018-10-16] MEDS: FUROSEMIDE 40 MG/4 ML INJECTABLE VIAL IVPUSH SCH (09:33)
--- NOTE | 2018-10-16 12:37 | DS ---
Physical Examination Vital Signs: Vital Signs Temperature 97.9 F 10/16/18 10:00 Pulse Rate 89 10/16/18 10:00 Respiratory Rate 18 10/16/18 10:00 Blood Pressure 123/52 L 10/16/18 10:00 O2 Sat by Pulse Oximetry (%) 95 10/16/18 10:00 Findings/Remarks: 78 year old male with a history of a Renal Transplant on Immunosuppression, cardiac Arrest, HTN, HLD, DM, CHF who presented for evaluation of confusion and elevated blood sugars. Per EMS, the patient's blood sugars have been in the 300s today despite taking his insulin. Patient's family noted the patient to be more confused than usual. Constitutional: Yes: Well Nourished, No Distress, Calm Cardiovascular: Yes: Regular Rate and Rhythm Respiratory: Yes: Regular Gastrointestinal: Yes: Normal Bowel Sounds Musculoskeletal: Yes: WNL Extremities: Yes: WNL Edema: No Peripheral Pulses WNL: Yes Neurological: Yes: Alert, Oriented Psychiatric: Yes: Alert, Oriented Labs: CBC, BMP 10/16/18 06:20 10/16/18 06:20 Discharge Summary Reason For Visit: HYPERCLYCEMIA/ALTERED MENTAL STATUS Current Active Problems CHF (congestive heart failure) (Acute) Change in mental status (Acute) Hyperglycemia (Acute) Hospital Course: Laboratory Last Values WBC 8.6 K/mm3 (4.0-10.0) 10/16/18 06:20 RBC 4.35 M/mm3 (4.00-5.60) 10/16/18 06:20 Hgb 12.4 GM/dL (11.7-16.9) 10/16/18 06:20 Hct 38.9 % (35.4-49) D 10/16/18 06:20 MCV 89.4 fl (80-96) 10/16/18 06:20 MCH 28.6 pg (25.7-33.7) 10/16/18 06:20 MCHC 32.0 g/dl (32.0-35.9) 10/16/18 06:20 RDW 17.0 % (11.9-15.9) H 10/16/18 06:20 Plt Count 164 K/MM3 (134-434) 10/16/18 06:20 MPV 7.8 fl (7.5-11.1) 10/16/18 06:20 Absolute Neuts (auto) 5.5 K/mm3 (1.5-8.0) 10/16/18 06:20 Neutrophils % 64.3 % (42.8-82.8) 10/16/18 06:20 Lymphocytes % 23.0 % (8-40) 10/16/18 06:20 Monocytes % 10.5 % (3.8-10.2) H 10/16/18 06:20 Eosinophils % 1.7 % (0-4.5) D 10/16/18 06:20 Basophils % 0.5 % (0-2.0) D 10/16/18 06:20 Nucleated RBC % 0 % (0-0) 10/16/18 06:20 VBG pH 7.37 (7.32-7.42) 10/10/18 17:46 POC VBG pCO2 46.9 mmHg (38-52) 10/10/18 17:46 POC VBG pO2 62.3 mmHg (28-48) H D 10/10/18 17:46 Mixed VBG HCO3 26.2 meq/L (19-25) H 10/10/18 17:46 Sodium 138 mmol/L (136-145) 10/16/18 06:20 Potassium 3.8 mmol/L (3.5-5.1) 10/16/18 06:20 Chloride 99 mmol/L (98-107) 10/16/18 06:20 Carbon Dioxide 32 mmol/L (21-32) 10/16/18 06:20 Anion Gap 6 MMOL/L (8-16) L 10/16/18 06:20 BUN 29 mg/dL (7-18) H 10/16/18 06:20 Creatinine 0.9 mg/dL (0.55-1.3) 10/16/18 06:20 Creat Clearance w eGFR > 60 (>60) 10/16/18 06:20 POC Glucometer 132 UNITS (80-120) 10/16/18 10:51 Random Glucose 112 mg/dL (74-106) H 10/16/18 06:20 Calcium 8.3 mg/dL (8.5-10.1) L 10/16/18 06:20 Phosphorus 3.9 mg/dL (2.5-4.9) 10/12/18 06:00 Magnesium 1.8 mg/dL (1.8-2.4) 10/12/18 06:00 Total Bilirubin 0.4 mg/dL (0.2-1) 10/13/18 07:00 AST 13 U/L (15-37) L 10/13/18 07:00 ALT 27 U/L (13-61) 10/13/18 07:00 Alkaline Phosphatase 82 U/L (45-117) 10/13/18 07:00 Creatine Kinase 76 IU/L (26-308) 10/10/18 16:08 Troponin I 0.02 ng/ml (0.00-0.05) 10/10/18 16:08 B-Natriuretic Peptide 7052.4 pg/ml (5-450) H 10/10/18 16:08 Total Protein 4.8 g/dl (6.4-8.2) L 10/13/18 07:00 Albumin 2.6 g/dl (3.4-5.0) L 10/13/18 07:00 Vitamin B12 796 pg/ml (193-986) 10/11/18 06:50 TSH 0.95 uIU/ml (0.358-3.74) D 10/11/18 06:50 Urine Color Straw 10/11/18 09:25 Urine Appearance Clear 10/11/18 09:25 Urine pH 5.0 (5.0-8.0) 10/11/18 09:25 Ur Specific Decker 1.012 (1.010-1.035) 10/11/18 09:25 Urine Protein Negative (NEGATIVE) 10/11/18 09:25 Urine Glucose (UA) Negative (NEGATIVE) 10/11/18 09:25 Urine Ketones Negative (NEGATIVE) 10/11/18 09:25 Urine Blood Negative (NEGATIVE) 10/11/18 09:25 Urine Nitrite Negative (NEGATIVE) 10/11/18 09:25 Urine Bilirubin Negative (<2.0 mg/dL) 10/11/18 09:25 Urine Urobilinogen Negative mg/dL (0.2-1.0) 10/11/18 09:25 Ur Leukocyte Esterase Negative (NEGATIVE) 10/11/18 09:25 Opiates Screen Negative ng/ml (TGZKQU=302) 10/11/18 09:25 Methadone Screen Negative ng/ml (DVUUAO=250) 10/11/18 09:25 Barbiturate Screen Negative ng/ml (GYFQNP=316) 10/11/18 09:25 Phencyclidine Screen Negative ng/ml (CUTOFF=25) 10/11/18 09:25 Ur Amphetamines Screen Negative ng/ml (ZDUOCY=785) 10/11/18 09:25 MDMA (Ecstasy) Screen Negative ng/ml (INWTST=378) 10/11/18 09:25 Benzodiazepines Screen Negative ng/ml (GNYRWF=122) 10/11/18 09:25 Cocaine Screen Negative ng/ml (AIQMXZ=063) 10/11/18 09:25 Tacrolimus 6.5 ng/mL (2.0-20.0) 10/12/18 06:00 U Marijuana (THC) Screen Negative ng/ml (CUTOFF=50) 10/11/18 09:25 Acetone, Qual Negative (NEGATIVE) 10/10/18 16:08 RPR Titer Nonreactive (NONREACTIVE) 10/11/18 06:50 Microbiology 10/12/18 12:40 Blood - Peripheral Venous Blood Culture - Preliminary NO GROWTH OBTAINED AFTER 72 HOURS, INCUBATION TO CONTINUE FOR 2 DAYS. 10/12/18 12:24 Blood - Peripheral Venous Blood Culture - Preliminary NO GROWTH OBTAINED AFTER 72 HOURS, INCUBATION TO CONTINUE FOR 2 DAYS. 10/11/18 09:25 Urine - Urine Clean Catch Urine Culture - Final Proteus Mirabilis Condition: Stable - Instructions Referrals: Mino Abel MD [Primary Care Provider] - Disposition: VNS/HOME HEALTH CARE - Home Medications Comprehensive Discharge Medication List: Ambulatory Orders Acetaminophen [Tylenol .Regular Strength -] 650 mg PO Q4H PRN tablet 11/29/17 Albuterol 2.5/Ipratropium 0.5 [Duoneb -] 1 amp NEB QID 02/08/18 Amlodipine Besylate [Norvasc -] 10 mg PO DAILY #30 tablet 05/19/18 Apixaban [Eliquis] 5 mg PO BID #60 tablet 05/19/18 Atorvastatin Ca [Lipitor] 80 mg PO HS #60 tablet 05/19/18 Duloxetine HCl [Cymbalta] 20 mg PO BID #60 capsule.dr 05/19/18 Tamsulosin HCl [Flomax] 0.4 mg PO HS #30 cap.er.24h 05/19/18 predniSONE [Deltasone -] 20 mg PO DAILY #30 tablet 05/24/18 Carvedilol [Coreg -] 25 mg PO BID #60 tablet 09/14/18 Hydrocortisone [Cortef -] 20 mg PO BID tablet 09/14/18 Insulin (Levemir) [Levemir Vial] 25 units SQ AM units 09/14/18 Insulin (Levemir) [Levemir Vial] 30 units SQ HS units 09/14/18 Insulin Sliding Scale [Novolog Vial Sliding Scale -] 1 vial SQ TIDAC units Mycophenolate Sodium [Mycophenolic Acid] 360 mg PO BID tablet. 09/14/18 Tacrolimus Anhydrous [Prograf] 1 mg PO BID capsule 09/14/18 oxyCODONE HCL [Roxicodone -] 5 mg PO Q6H PRN tablet MDD 4 09/14/18
[2018-10-16] MEDS ORDERED: predniSONE 10 MG TABLET (UD) PO SCH (13:56)
--- NOTE | 2018-10-16 13:56 | PN ---
Progress Note, Physician History of Present Illness: Pt seen and examined at bedside. He is awake and appears comfortable. He denies shortness of breath. - Current Medication List Current Medications: Active Medications Amlodipine Besylate (Norvasc -) 10 mg PO DAILY [facility] Last Admin: 10/16/18 09:33 Dose: 10 mg Apixaban (Eliquis -) 5 mg PO BID [facility] Last Admin: 10/16/18 09:33 Dose: 5 mg Atorvastatin Calcium (Lipitor -) 80 mg PO HS [facility] Last Admin: 10/15/18 21:46 Dose: 80 mg Carvedilol (Coreg -) 25 mg PO BID [facility] Last Admin: 10/16/18 09:33 Dose: 25 mg Duloxetine HCl (Cymbalta -) 20 mg PO BID [facility] Last Admin: 10/16/18 09:33 Dose: 20 mg Furosemide (Lasix Injection -) 40 mg IVPUSH DAILY [facility] Last Admin: 10/16/18 09:33 Dose: 40 mg Ceftriaxone Sodium 1 gm/ (Dextrose) 50 mls @ 100 mls/hr IVPB DAILY [facility]; Protocol Last Admin: 10/16/18 09:32 Dose: 100 mls/hr Insulin Aspart (Novolog Vial Sliding Scale -) 1 vial SQ TIDAC [facility]; Protocol Last Admin: 10/16/18 10:51 Dose: Not Given Insulin Detemir (Levemir Vial) 25 units SQ AM [facility] Last Admin: 10/16/18 06:37 Dose: 25 unit Insulin Detemir (Levemir Vial) 10 units SQ HS [facility] Last Admin: 10/15/18 21:58 Dose: 10 units Mycophenolate Sodium (Mycophenolic Acid) 360 mg PO BID [facility] Last Admin: 10/16/18 09:33 Dose: 360 mg Prednisone (Deltasone -) 15 mg PO DAILY [facility] Last Admin: 10/16/18 09:33 Dose: 15 mg Tacrolimus (Prograf) 1 mg PO BID [facility] Last Admin: 10/16/18 09:33 Dose: 1 mg Tamsulosin HCl (Flomax -) 0.4 mg PO HS [facility] Last Admin: 10/15/18 21:46 Dose: 0.4 mg - Objective Vital Signs: Vital Signs Temperature 97.9 F 10/16/18 10:00 Pulse Rate 89 10/16/18 10:00 Respiratory Rate 18 10/16/18 10:00 Blood Pressure 123/52 L 10/16/18 10:00 O2 Sat by Pulse Oximetry (%) 95 10/16/18 10:00 Constitutional: Yes: Calm Eyes: Yes: Conjunctiva Clear HENT: Yes: Atraumatic Cardiovascular: Yes: S1, S2 Respiratory: Yes: CTA Bilaterally Gastrointestinal: Yes: Soft Genitourinary: Yes: WNL Musculoskeletal: Yes: WNL Edema: Yes (markedly improved) Edema: LLE: Trace, RLE: Trace Neurological: Yes: Confusion Labs: CBC, BMP 10/16/18 06:20 10/16/18 06:20 Problem List - Problems (1) CHF (congestive heart failure) Code(s): I50.9 - HEART FAILURE, UNSPECIFIED Qualifiers: Heart failure type: unspecified Heart failure chronicity: unspecified Qualified Code(s): I50.9 - Heart failure, unspecified (2) Change in mental status Code(s): R41.82 - ALTERED MENTAL STATUS, UNSPECIFIED Qualifiers: Altered mental status type: unspecified Qualified Code(s): R41.82 - Altered mental status, unspecified (3) Hyperglycemia Code(s): R73.9 - HYPERGLYCEMIA, UNSPECIFIED Assessment/Plan Current Medications Generic Name Dose Route Start Last Admin Trade Name Montyq PRN Reason Stop Dose Admin Amlodipine Besylate 10 mg 10/11/18 10:00 10/16/18 09:33 Norvasc - PO 10 mg DAILY [facility] Administration Apixaban 5 mg 10/10/18 22:00 10/16/18 09:33 Eliquis - PO 5 mg BID [facility] Administration Atorvastatin Calcium 80 mg 10/10/18 22:45 10/15/18 21:46 Lipitor - PO 80 mg HS [facility] Administration Carvedilol 25 mg 10/10/18 22:00 10/16/18 09:33 Coreg - PO 25 mg BID [facility] Administration Duloxetine HCl 20 mg 10/10/18 22:00 10/16/18 09:33 Cymbalta - PO 20 mg BID [facility] Administration Furosemide 40 mg 10/13/18 16:00 10/16/18 09:33 Lasix Injection - IVPUSH 40 mg DAILY [facility] Administration Ceftriaxone Sodium 1 gm/ 50 mls @ 100 mls/hr 10/12/18 12:00 10/16/18 09:32 Dextrose IVPB 100 mls/hr DAILY [facility] Administration Protocol Insulin Aspart 1 vial 10/11/18 07:00 10/16/18 10:51 Novolog Vial Sliding Scale - SQ Not Given TIDAC [facility] Protocol Insulin Detemir 25 units 10/11/18 07:00 10/16/18 06:37 Levemir Vial SQ 25 unit AM [facility] Administration Insulin Detemir 10 units 10/12/18 22:00 10/15/18 21:58 Levemir Vial SQ 10 units HS [facility] Administration Mycophenolate Sodium 360 mg 10/10/18 22:00 10/16/18 09:33 Mycophenolic Acid PO 360 mg BID [facility] Administration Prednisone 15 mg 10/12/18 12:48 10/16/18 09:33 Deltasone - PO 15 mg DAILY [facility] Administration Tacrolimus 1 mg 10/10/18 22:00 10/16/18 09:33 Prograf PO 1 mg BID [facility] Administration Tamsulosin HCl 0.4 mg 10/10/18 22:00 10/15/18 21:46 Flomax - PO 0.4 mg HS [facility] Administration Impression 1. CKD 2. kidney transplant 3. DM with labile blood pressure 4. hx of syncope 5. HTN 6. hyperlipidemia 7. CHF 8. acute resp failure s/p intubation 9. Hx DVT - pt has IVC filter Plan - can change lasix to PO - repeat labs in am - follow prograf and will need to monitor as otupt - cont steroid taper, will decrease to 10 mg - will follow - avoid nsaids and nephrotoxins - monitor pulse ox
[2018-10-16 14:50] VITALS: BP 113/39; PULSE 82; TEMP 98.4
--- NOTE | 2018-10-16 15:36 | PN ---
Progress Note (short form) - Note Progress Note: alert no complaints Vital Signs Period Temp Pulse Resp BP Sys/Mendoza Pulse Ox Last 24 Hr 97.8 F-98.6 F 74-89 18-20 113-156/39-66 94-95 cor-rrr lungs bilateral rhonchi abd soft,nt ext trace edema finger right hand well healed CBC, BMP 10/16/18 06:20 10/16/18 06:20 Microbiology 10/12/18 12:24 Blood - Peripheral Venous Blood Culture - Preliminary NO GROWTH OBTAINED AFTER 96 HOURS, INCUBATION TO CONTINUE FOR 1 DAYS. 10/12/18 12:40 Blood - Peripheral Venous Blood Culture - Preliminary NO GROWTH OBTAINED AFTER 96 HOURS, INCUBATION TO CONTINUE FOR 1 DAYS. 10/11/18 09:25 Urine - Urine Clean Catch Urine Culture - Final Proteus Mirabilis xray- RLL infitrate a/p day #5 rocephin for RLL pneumonia history renal transplant history MRSA bacteremia diabetes can switch to po ceftin for 48 hours
[2018-10-16] MEDS ORDERED: CEFUROXIME AXETIL 500 MG TABLET PO SCH (22:00)
== END 2018-10-16 20:00 | disposition home health service (06) | DRG 193 ==
LOC: JER 14:30 → JERBED 19:41 → OBSVTOIN 21:34 → J6S 10-11 00:13
PROVIDERS: ADMIT Internal Medicine; ATTEND Family Medicine
DX: J18.9 Pneumonia, unspecified organism (principal); G92 Toxic encephalopathy; Z94.0 Kidney transplant status; I13.0 Hypertensive heart and chronic kidney disease with heart failure and stage 1 through stage 4 chronic kidney disease, or unspecified chronic kidney disease; E11.22 Type 2 diabetes mellitus with diabetic chronic kidney disease; E11.65 Type 2 diabetes mellitus with hyperglycemia; I50.9 Heart failure, unspecified; N18.9 Chronic kidney disease, unspecified; E11.621 Type 2 diabetes mellitus with foot ulcer; L97.519 Non-pressure chronic ulcer of other part of right foot with unspecified severity; E87.70 Fluid overload, unspecified; E78.5 Hyperlipidemia, unspecified; Z86.74 Personal history of sudden cardiac arrest; Z79.4 Long term (current) use of insulin; Z95.1 Presence of aortocoronary bypass graft; J44.9 Chronic obstructive pulmonary disease, unspecified; I25.10 Atherosclerotic heart disease of native coronary artery without angina pectoris; I25.2 Old myocardial infarction; E11.40 Type 2 diabetes mellitus with diabetic neuropathy, unspecified
CPT/HCPCS: 36415; 70450-TC; 71045-TC-FY; 80048; 80053; 80197; 80307; 81003; 82009; 82550; 82607; 82803; 82962; 83735; 83880; 84100; 84443; 84484; 85025; 85027; 86593; 87040; 87086; 87186; 93005; 93010; 93306-TC; 94640; 97116-GP; 97161-GP; 99283-25; G0378

== ENCOUNTER 2018-11-17 19:49 | Inpatient (IN) | payer OTHER ==
--- NOTE | 2018-11-17 20:28 | PDOC ---
History of Present Illness - General History Source: Patient Exam Limitations: No Limitations - History of Present Illness Initial Comments: 11/17/18 20:37 The patient is a 78 year old male with a significant past medical history of renal transplant on prograf (2008), CAD, [place], DM, HTN, HLD, CHF, mild aortic stenosis presenting with shortness of breath for the past 2 hours. Patient was given O2 en route to the ED by EMS. Patient's family is also complaining of leg swelling and puffiness in the face. Patient has leg swelling, but has noticed the left leg is more swollen than the right. Patient reports similar symptoms one month ago. Patient denies chest pain, fever, chills, nausea, vomiting, urinary symptoms, or changes in bowel movements. Allergies: NKDA Surgeries: None Social: No reported alcohol, drug or cigarette use <Kiya Phillips - Last Filed: 11/17/18 21:46> <Pili Dsouza - Last Filed: 11/19/18 23:07> - General Chief Complaint: Shortness of Breath Stated Complaint: DIFFICULTY BREATHING Time Seen by Provider: 11/17/18 20:06 Past History <Kiya Phillips - Last Filed: 11/17/18 21:46> - Past Medical History Anemia: No Asthma: No Cancer: No Cardiac Disorders: Yes (cardiac arrest, CABG) CVA: No COPD: Yes CHF: Yes Dementia: No Diabetes: Yes (IDDM) Dialysis: Yes (stopped 2008) GI Disorders: No Disorders: No HTN: Yes Hypercholesterolemia: Yes Liver Disease: No Seizures: No Thyroid Disease: No - Surgical History Abdominal Surgery: No Appendectomy: No Cardiac Surgery: Yes (open heart surgery) Cholecystectomy: No Lung Surgery: No Neurologic Surgery: No Orthopedic Surgery: No - Immunization History Immunization Up to Date: Yes - Suicide/Smoking/Psychosocial Hx Smoking Status: No Smoking History: Never smoked Have you smoked in the past 12 months: No Number of Cigarettes Smoked Daily: 0 Information on smoking cessation initiated: No 'Breaking Loose' booklet given: 04/22/18 Hx Alcohol Use: No Drug/Substance Use Hx: No Substance Use Type: None Hx Substance Use Treatment: No <Pili Dsouza - Last Filed: 11/19/18 23:07> - Past Medical History Allergies/Adverse Reactions: Allergies Allergy/AdvReac Type Severity Reaction Status Date / Time No Known Drug Allergies Allergy Verified 11/17/18 20:05 Home Medications: Ambulatory Orders Acetaminophen [Tylenol .Regular Strength -] 650 mg PO Q4H PRN tablet 11/29/17 Albuterol 2.5/Ipratropium 0.5 [Duoneb -] 1 amp NEB QID 02/08/18 Amlodipine Besylate [Norvasc -] 10 mg PO DAILY #30 tablet 05/19/18 Apixaban [Eliquis] 5 mg PO BID #60 tablet 05/19/18 Atorvastatin Ca [Lipitor] 80 mg PO HS #60 tablet 05/19/18 Duloxetine HCl [Cymbalta] 20 mg PO BID #60 capsule. 05/19/18 Tamsulosin HCl [Flomax] 0.4 mg PO HS #30 cap.er.24h 05/19/18 predniSONE [Deltasone -] 20 mg PO DAILY #30 tablet 05/24/18 Carvedilol [Coreg -] 25 mg PO BID #60 tablet 09/14/18 Hydrocortisone [Cortef -] 20 mg PO BID tablet 09/14/18 Insulin (Levemir) [Levemir Vial] 25 units SQ AM units 09/14/18 Insulin (Levemir) [Levemir Vial] 30 units SQ HS units 09/14/18 Insulin Sliding Scale [Novolog Vial Sliding Scale -] 1 vial SQ TIDAC units Mycophenolate Sodium [Mycophenolic Acid] 360 mg PO BID tablet. 09/14/18 Tacrolimus Anhydrous [Prograf] 1 mg PO BID capsule 09/14/18 oxyCODONE HCL [Roxicodone -] 5 mg PO Q6H PRN tablet MDD 4 09/14/18 Cefuroxime Axetil [Cefuroxime] 500 mg PO BID #10 tablet 10/16/18 Review of Systems - Review of Systems Able to Perform ROS?: Yes Comments:: 11/17/18 20:42 ADULT ROS GENERAL/CONSTITUTIONAL: No fever or chills. No weakness. HEAD, EYES, EARS, NOSE AND THROAT: No change in vision. No ear pain or discharge. No sore throat. CARDIOVASCULAR: No chest pain or shortness of breath. RESPIRATORY: No cough, wheezing, or hemoptysis. (+) shortness of breath. GASTROINTESTINAL: No nausea, vomiting, diarrhea or constipation. GENITOURINARY: No dysuria, frequency, or change in urination. MUSCULOSKELETAL: No joint or muscle pain. No neck or back pain. (+) leg swelling. SKIN: No rash NEUROLOGIC: No headache, vertigo, loss of consciousness, or change in strength/ sensation. ENDOCRINE: No increased thirst. No abnormal weight change. HEMATOLOGIC/LYMPHATIC: No anemia, easy bleeding, or history of blood clots. ALLERGIC/IMMUNOLOGIC: No hives or skin allergy. <Kiya Phillips - Last Filed: 11/17/18 21:46> *Physical Exam - Vital Signs Last Vital Signs Temp Pulse Resp BP Pulse Ox 98.9 F 62 16 124/72 95 11/17/18 20:05 11/17/18 20:05 11/17/18 20:05 11/17/18 20:05 11/17/18 20:05 - Physical Exam Comments: 11/17/18 20:51 ADULT EXAM GENERAL: Awake, alert, and fully oriented, in no acute distress HEAD: No signs of trauma EYES: PERRLA, EOMI, sclera anicteric, conjunctiva clear ENT: Auricles normal inspection, hearing grossly normal, nares patent, oropharynx clear without exudates. Moist mucosa NECK: Normal ROM, supple, no lymphadenopathy, JVD, or masses LUNGS: Breath sounds equal. (+) Expiratory wheezing. No crackles. HEART: Regular rate and rhythm, normal S1 and S2, no murmurs, rubs or gallops ABDOMEN: Soft, nontender, normoactive bowel sounds. No guarding, no rebound. No masses EXTREMITIES: Normal range of motion. No clubbing or cyanosis. No cords, erythema , or tenderness. (+) pitting edema; L>R. NEUROLOGICAL: Cranial nerves II through XII grossly intact. Normal speech, normal gait SKIN: Warm, Dry, normal turgor, no rashes or lesions noted. <Kiya Phillips - Last Filed: 11/17/18 21:46> - Vital Signs Last Vital Signs Temp Pulse Resp BP Pulse Ox 98.9 F 62 16 124/72 95 11/17/18 20:05 11/17/18 20:05 11/17/18 20:05 11/17/18 20:05 11/17/18 20:05 <Pili Dsouza - Last Filed: 11/19/18 23:07> Moderate Sedation - Procedure Monitoring Vital Signs: Procedure Monitoring Vital Signs Temperature 98.9 F 11/17/18 20:05 Pulse Rate 62 11/17/18 20:05 Respiratory Rate 16 11/17/18 20:05 Blood Pressure 124/72 11/17/18 20:05 O2 Sat by Pulse Oximetry (%) 95 11/17/18 20:05 <Kiya Phillips - Last Filed: 11/17/18 21:46> - Procedure Monitoring Vital Signs: Procedure Monitoring Vital Signs Temperature 98.9 F 11/17/18 20:05 Pulse Rate 62 11/17/18 20:05 Respiratory Rate 16 11/17/18 20:05 Blood Pressure 124/72 11/17/18 20:05 O2 Sat by Pulse Oximetry (%) 95 11/17/18 20:05 <Pili Dsouza - Last Filed: 11/19/18 23:07> ED Treatment Course - LABORATORY CBC & Chemistry Diagram: 11/19/18 07:30 11/19/18 07:30 <Pili Dsouza - Last Filed: 11/19/18 23:07> Medical Decision Making - Medical Decision Making 11/17/18 21:50 Pt's poratable CXR appears to have more fluid in the right upper lobe. Pt has expiratory wheezes. 11/17/18 23:06 Pt's BUN/Cr are WNL; BNP elevated at 9K Awaiting sono duplex of the right leg to r/o DVT 11/17/18 23:46 Pt is refusing EKG 11/17/18 23:48 Pt is refusing duplex sono of the leg 11/19/18 23:06 Pt finally acquesced and he was admitted to the hospital for SOB workup <Pili Dsouza - Last Filed: 11/19/18 23:07> *DC/Admit/Observation/Transfer - Attestations Scribe Attestion: 11/17/18 20:51 Documentation prepared by Kiya Phillips, acting as certified medical transcriptionist for Pili Dsouza MD. <Kiya Phillips - Last Filed: 11/17/18 21:46> - Discharge Dispostion Decision to Admit order: Yes <Pili Dsouza - Last Filed: 11/19/18 23:07> Diagnosis at time of Disposition: Renal transplant disorder, Dehydration CHF (congestive heart failure) Qualifiers: Heart failure type: unspecified Heart failure chronicity: unspecified Qualified Code(s): I50.9 - Heart failure, unspecified
[2018-11-17] MEDS ORDERED: FUROSEMIDE 40 MG/4 ML INJECTABLE VIAL IVPUSH ONE (21:46)
[2018-11-17] MEDS ORDERED: SODIUM CHLORIDE 0.9% 500 ML INFUS.BAG IV ONE (21:46)
[2018-11-17] MEDS ORDERED: FUROSEMIDE 40 MG/4 ML INJECTABLE VIAL ONE (21:47)
[2018-11-17 21:48] LABS: BASO % 0.8 % (0-2.0); EOS % 0.5 % (0-4.5); HEMATOCRIT 32.8 % (35.4-49); HEMOGLOBIN 11.3 GM/dL (11.7-16.9); MCH 30.6 pg (25.7-33.7); MCHC 34.6 g/dl (32.0-35.9); MEAN CELL VOLUME 88.6 fl (80-96); MEAN PLT VOLUME 8.1 fl (7.5-11.1); MONO % 11.3 % (3.8-10.2); NEUT % 74.4 % (42.8-82.8); PLATELET COUNT 192 K/MM3 (134-434); RBC 3.71 M/mm3 (4.00-5.60); RDW 16.5 % (11.9-15.9); WHITE BLOOD COUNT 10.7 K/mm3 (4.0-10.0)
[2018-11-17 22:27] LABS: ALBUMIN 3.2 g/dl (3.4-5.0); ALK PHOS 87 U/L (45-117); BILIRUBIN,TOTAL 0.4 mg/dL (0.2-1); BLOOD UREA NITROGEN 50 mg/dL (7-18); CALCIUM 8.2 mg/dL (8.5-10.1); CHLORIDE 105 mmol/L (98-107); CREATININE 1.3 mg/dL (0.55-1.3); GLUCOSE,RANDOM 297 mg/dL (74-106); POTASSIUM 4.2 mmol/L (3.5-5.1); SGOT/AST 10 U/L (15-37); SGPT/ALT 29 U/L (13-61); SODIUM 135 mmol/L (136-145); TOT PROT 5.8 g/dl (6.4-8.2)
[2018-11-17 22:28] LABS: ANION GAP 9 MMOL/L (8-16); CO2 21 mmol/L (21-32)
--- NOTE | 2018-11-18 | HP ---
CHIEF COMPLAINT: SOB, swelling HISTORY OF PRESENT ILLNESS: Please see resident note for further historical information; in brief this is a 78 y/o male with a complex PMH as documented who presents to the hospital with SOB and swelling; this is aparently similar to prior presentations. He is found to have elevated BNP higher than it has been in the past to 9000 as well as b/l infiltrates on CXR suspicious for CHF. He is a somewhat poor historian. Sx had been worsening over the past day. He was recently DCd from the hospital after being treated for PNA; Dr. Ziegler saw him and he completed a cours of Ceftin for his infection. Today he doesn't have any severe secretions. He is hemodynamically stable. In the ER he was given fluids and lasix. Medicine was called for admission. 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, Cardiac arrest, HTN, HLD, IDDM, CHF, MRSA bacteremia, Mild , CAD s/p CABG, DVT (IVC filter, eliquis), Cdif, Osteomyelitis of finger PAST SURGICAL HISTORY: per chart Social History: Reviewed; unchanged Family History: Asked and noncontributory Allergies No Known Drug Allergies Allergy (Verified 11/17/18 20:05) HOME MEDICATIONS: Home Medications Medication Instructions Recorded Acetaminophen [Tylenol .Regular 650 mg PO Q4H PRN tablet 11/29/17 Strength -] Albuterol 2.5/Ipratropium 0.5 1 amp NEB QID 02/08/18 [Duoneb -] Amlodipine Besylate [Norvasc -] 10 mg PO DAILY #30 tablet 05/19/18 Apixaban [Eliquis] 5 mg PO BID #60 tablet 05/19/18 Atorvastatin Ca [Lipitor] 80 mg PO HS #60 tablet 05/19/18 Duloxetine HCl [Cymbalta] 20 mg PO BID #60 capsule. 05/19/18 Tamsulosin HCl [Flomax] 0.4 mg PO HS #30 cap.er.24h 05/19/18 predniSONE [Deltasone -] 20 mg PO DAILY #30 tablet 05/24/18 Carvedilol [Coreg -] 25 mg PO BID #60 tablet 09/14/18 Hydrocortisone [Cortef -] 20 mg PO BID tablet 09/14/18 Insulin (Levemir) [Levemir Vial] 25 units SQ AM units 10/25/18 Insulin (Levemir) [Levemir Vial] 30 units SQ HS units 09/14/18 Insulin Sliding Scale [Novolog 1 vial SQ TIDAC units 09/14/18 Vial Sliding Scale -] Mycophenolate Sodium [Mycophenolic 360 mg PO BID tablet. 09/14/18 Acid] Tacrolimus Anhydrous [Prograf] 1 mg PO BID capsule 09/14/18 oxyCODONE HCL [Roxicodone -] 5 mg PO Q6H PRN tablet MDD 4 09/14/18 Cefuroxime Axetil [Cefuroxime] 500 mg PO BID #10 tablet 10/16/18 REVIEW OF SYSTEMS CONSTITUTIONAL: Absent: fever, chills, diaphoresis, generalized weakness, malaise, loss of appetite, weight change HEENT: Absent: rhinorrhea, nasal congestion, throat pain, throat swelling, difficulty swallowing, mouth swelling, ear pain, eye pain, visual changes CARDIOVASCULAR: Absent: chest pain, syncope, palpitations, irregular heart rate, lightheadedness , peripheral edema RESPIRATORY: Absent: cough, shortness of breath, dyspnea with exertion, orthopnea, wheezing, stridor, hemoptysis GASTROINTESTINAL: Absent: abdominal pain, abdominal distension, nausea, vomiting, diarrhea, constipation, melena, hematochezia GENITOURINARY: Absent: dysuria, frequency, urgency, hesitancy, hematuria, flank pain, genital pain MUSCULOSKELETAL: Absent: myalgia, arthralgia, joint swelling, back pain, neck pain SKIN: Absent: rash, itching, pallor HEMATOLOGIC/IMMUNOLOGIC: Absent: easy bleeding, easy bruising, lymphadenopathy, frequent infections ENDOCRINE: Absent: unexplained weight gain, unexplained weight loss, heat intolerance, cold intolerance NEUROLOGIC: Absent: headache, focal weakness or paresthesias, dizziness, unsteady gait, seizure, mental status changes, bladder or bowel incontinence PSYCHIATRIC: Absent: anxiety, depression, suicidal or homicidal ideation, hallucinations. PHYSICAL EXAMINATION Vital Signs - 24 hr 11/17/18 11/17/18 11/17/18 20:05 20:10 22:03 Temperature 98.9 F 98.9 F 98.7 F Pulse Rate 62 62 Pulse Rate [ 62 78 Left Radial] Respiratory 16 16 16 Rate Blood Pressure 124/72 Blood Pressure 124/72 144/65 [Left Arm] O2 Sat by Pulse 95 95 97 Oximetry (%) GENERAL: Awake, alert, and fully oriented, in no acute distress. HEAD: Normal with no signs of trauma. EYES: Pupils equal, round and reactive to light, extraocular movements intact EARS, NOSE, THROAT: Ears normal, nares patent, oropharynx clear without exudates. Moist mucous membranes. NECK: Normal range of motion, supple without lymphadenopathy, LUNGS: crackles and wheezes bilaterally HEART: Regular rate and rhythm, normal S1 and S2 without murmur, rub or gallop. ABDOMEN: Soft, nontender, not distended, normoactive bowel sounds MUSCULOSKELETAL: Normal range of motion at all joints. No bony deformities or tenderness. No CVA tenderness. UPPER EXTREMITIES: 2+ pulses, warm, well-perfused. No cyanosis. No clubbing. No peripheral edema. LOWER EXTREMITIES: 2+ pulses, warm, well-perfused. No calf tenderness. No peripheral edema. NEUROLOGICAL: Cranial nerves II-XII intact. Normal speech. Normal gait. SKIN: Warm, dry, normal turgor, no rashes or lesions noted, normal capillary refill. Laboratory Results - last 24 hr 11/17/18 11/17/18 11/17/18 21:40 21:40 21:40 WBC 10.7 H RBC 3.71 L Hgb 11.3 L Hct 32.8 L D MCV 88.6 MCH 30.6 MCHC 34.6 RDW 16.5 H Plt Count 192 MPV 8.1 Absolute Neuts (auto) 7.9 Neutrophils % 74.4 Lymphocytes % 13.0 D Monocytes % 11.3 H Eosinophils % 0.5 Basophils % 0.8 Nucleated RBC % 0 Sodium 135 L Potassium 4.2 Chloride 105 Carbon Dioxide 21 Anion Gap 9 BUN 50 H Creatinine 1.3 Creat Clearance w eGFR 53.67 Random Glucose 297 H Calcium 8.2 L Total Bilirubin 0.4 AST 10 L ALT 29 Alkaline Phosphatase 87 Creatine Kinase 33 Troponin I 0.02 B-Natriuretic Peptide 9166.6 H Total Protein 5.8 L Albumin 3.2 L EKG and telemetry reviewed 09/2018 echo with normal LVEF, LA/RA dilation, moderate MR, moderate to severe TR, elevated RVSP >60 CXR consistent with CHF; final result pending ASSESSMENT/PLAN: Mr. Abel presents to the hospital with SOB and swelling found to have elevated BNP and b/l pulmonary edema 1) Acute Hypoxic RF -Secondary likely to CHF exacerbation; no greatly elevated WBC, no fevers, non- smoker with no COPD hx (but is on duonebs) -Consulting cardiology; admit to inpatient and place on telemetry -Lasix 40 IV daily; consider adding lasix to home meds -Monitor QD weights, Is and Os, clinical exam -PRN O2; if additional respiratory support is needed consider BiPap -He has been seen by Dr. Fischer's group in the past; consider pulmonary consult -As echo 2018 likely do not need to repeat now but ultimately will defer to specialty service. 2) Renal XP -Continue home medications; verify home meds with transplant center; check tacro level -QD BMP, monitor renal function. If needed involve nephro. 3) History of CAD s/p CABG -Continue home meds; initial troponin negative. Can trend to look for strain but doubt that this presentation represents ACS. 4) Hx DVT -Documented IVC filter; on eliquis. No changes 5) HTN -Continue home meds; monitor 6) BPH -Continue home tamsulosin, monitor for retention 7) Hypoalbuminemia -Consider nutrition consult and checkin prealbumin 8) Early Cognitive Dysfunction -Seen by neurology on previous admission; they recommended OP workup FENA -PO fluids with 2L restriction -PRN replete; optimize K and Mg -Low salt, cardiac diet -As tolerated Code Status Unchanged Visit type - Emergency Visit Emergency Visit: No - New Patient This patient is new to me today: Yes Date on this admission: 11/30/18 - Critical Care Critical Care patient: No
[2018-11-18] MEDS ORDERED: FUROSEMIDE 40 MG/4 ML INJECTABLE VIAL IVPUSH ONE (02:47)
[2018-11-18] MEDS ORDERED: FUROSEMIDE 40 MG/4 ML INJECTABLE VIAL ONE (02:49)
[2018-11-18] MEDS ORDERED: oxyCODONE HCL 5 MG TABLET PO PRN (05:46)
--- NOTE | 2018-11-18 05:53 | HP ---
<Kriss Kim - Last Filed: 11/18/18 07:01> CHIEF COMPLAINT: SOB x 2 hrs PCP: HISTORY OF PRESENT ILLNESS: 78 y/o M with PMH renal transplant (on prograf), baseline dementia, CAD, [place], DM , HTN, HLD, CHF, mild , who presented to the ED c/o 2hr hx SOB. As per ED staff, EMS placed pt on NC 02. Amount was not specified. Pt had c/o 2 hr hx SOB , as well as complaint of facial swelling and lower extremity edema. Upon examination, pt states that he is still concerned about his lower extremity edema. Otherwise without complaint. Breathing appears labored. Denies [place], fever , chills, chest pain or pressure, or changes in urinary or bowel function. ER course was notable for: (1) lasix (2) IVF (3) Recent Travel: denies PAST MEDICAL HISTORY: as above PAST SURGICAL HISTORY: unable to describe Social History: unable to describe Smoking: Alcohol: Drugs: Family History: as above Allergies No Known Drug Allergies Allergy (Verified 11/17/18 20:05) HOME MEDICATIONS: Home Medications Medication Instructions Recorded Acetaminophen [Tylenol .Regular 650 mg PO Q4H PRN tablet 11/29/17 Strength -] Albuterol 2.5/Ipratropium 0.5 1 amp NEB QID 02/08/18 [Duoneb -] Amlodipine Besylate [Norvasc -] 10 mg PO DAILY #30 tablet 05/19/18 Apixaban [Eliquis] 5 mg PO BID #60 tablet 05/19/18 Atorvastatin Ca [Lipitor] 80 mg PO HS #60 tablet 05/19/18 Duloxetine HCl [Cymbalta] 20 mg PO BID #60 capsule. 05/19/18 Tamsulosin HCl [Flomax] 0.4 mg PO HS #30 cap.er.24h 05/19/18 predniSONE [Deltasone -] 20 mg PO DAILY #30 tablet 05/24/18 Carvedilol [Coreg -] 25 mg PO BID #60 tablet 09/14/18 Hydrocortisone [Cortef -] 20 mg PO BID tablet 09/14/18 Insulin (Levemir) [Levemir Vial] 25 units SQ AM units 09/14/18 Insulin (Levemir) [Levemir Vial] 30 units SQ HS units 09/14/18 Insulin Sliding Scale [Novolog 1 vial SQ TIDAC units 09/14/18 Vial Sliding Scale -] Mycophenolate Sodium [Mycophenolic 360 mg PO BID tablet. 09/14/18 Acid] Tacrolimus Anhydrous [Prograf] 1 mg PO BID capsule 09/14/18 oxyCODONE HCL [Roxicodone -] 5 mg PO Q6H PRN tablet MDD 4 09/14/18 Cefuroxime Axetil [Cefuroxime] 500 mg PO BID #10 tablet 10/16/18 Meds need to be verified. Pt not on lasix as of d/c summary on last admission. however prior notes mention lasix 40mg IVP. also question of prograf dose, mycophenolate. and whether pt to be on both prednisone and cortef. REVIEW OF SYSTEMS CONSTITUTIONAL: Absent: fever, chills, diaphoresis, generalized weakness, malaise, loss of appetite, weight change HEENT: Absent: rhinorrhea, nasal congestion, throat pain, throat swelling, difficulty swallowing, mouth swelling, ear pain, eye pain, visual changes CARDIOVASCULAR: Absent: chest pain, syncope, palpitations, irregular heart rate, lightheadedness , peripheral edema RESPIRATORY: +SOB Absent: shortness of breath, dyspnea with exertion, orthopnea, wheezing, stridor , hemoptysis GASTROINTESTINAL: Absent: abdominal pain, abdominal distension, nausea, vomiting, diarrhea, constipation, melena, hematochezia GENITOURINARY: Absent: dysuria, frequency, urgency, hesitancy, hematuria, flank pain, genital pain MUSCULOSKELETAL: Absent: myalgia, arthralgia, joint swelling, back pain, neck pain SKIN: Absent: rash, itching, pallor HEMATOLOGIC/IMMUNOLOGIC: Absent: easy bleeding, easy bruising, lymphadenopathy, frequent infections ENDOCRINE: Absent: unexplained weight gain, unexplained weight loss, heat intolerance, cold intolerance NEUROLOGIC: Absent: headache, focal weakness or paresthesias, dizziness, unsteady gait, seizure, mental status changes, bladder or bowel incontinence PSYCHIATRIC: Absent: anxiety, depression, suicidal or homicidal ideation, hallucinations. PHYSICAL EXAMINATION Vital Signs 11/18/18 11/18/18 11/18/18 02:41 04:21 05:31 Temperature 98.0 F 98.3 F 98.2 F Pulse Rate 88 Pulse Rate [ 97 H 90 Left Radial] Respiratory 19 19 24 H Rate Blood Pressure 137/54 L Blood Pressure 148/107 H 127/82 [Left Arm] O2 Sat by Pulse 95 95 94 L Oximetry (%) GENERAL: Resting in bed, labored shallow breathing. however sat well. in mild distress HEAD: Normal with no signs of trauma. EYES: Pupils equal, round and reactive to light, extraocular movements intact, sclera anicteric, conjunctiva clear. EARS, NOSE, THROAT: Ears normal, nares patent, oropharynx clear without exudates. Moist mucous membranes. NECK: Normal range of motion, supple. LUNGS: +expiratory wheezes. coarse breath sounds. HEART: Regular rate and rhythm, normal S1 and S2 without murmur, rub or gallop. ABDOMEN: Soft, obese, nontender, distended, normoactive bowel sounds, no guarding LOWER EXTREMITIES: 2+ pt pulses, warm, well-perfused. 2+ pitting edema NEUROLOGICAL: Cranial nerves II-XII intact. PSYCHIATRIC: Cooperative but confused Laboratory Results - last 24 hr 11/17/18 11/17/18 11/17/18 21:40 21:40 21:40 WBC 10.7 H RBC 3.71 L Hgb 11.3 L Hct 32.8 L D MCV 88.6 MCH 30.6 MCHC 34.6 RDW 16.5 H Plt Count 192 MPV 8.1 Absolute Neuts (auto) 7.9 Neutrophils % 74.4 Lymphocytes % 13.0 D Monocytes % 11.3 H Eosinophils % 0.5 Basophils % 0.8 Nucleated RBC % 0 Sodium 135 L Potassium 4.2 Chloride 105 Carbon Dioxide 21 Anion Gap 9 BUN 50 H Creatinine 1.3 Creat Clearance w eGFR 53.67 Random Glucose 297 H Calcium 8.2 L Total Bilirubin 0.4 AST 10 L ALT 29 Alkaline Phosphatase 87 Creatine Kinase 33 Troponin I 0.02 B-Natriuretic Peptide 9166.6 H Total Protein 5.8 L Albumin 3.2 L CXR: +sternotomy wires. cardiomegaly, blunting of R, L costophrenic angles. congestion. similar to previous sep 2018. my read; official pending ASSESSMENT/PLAN: 78 y/o M with PMH renal transplant (on prograf), baseline dementia, CAD, WI, DM , HTN, HLD, CHF, mild , who presented to the ED c/o 2hr hx SOB. #CHF exacerbation -started back on lasix 40mg IVP qd; was not d/c on during prior admission -strict i/o, daily wts, sodium control 2g. fluid restrict -tele monitoring -cardio consult; Dr. Khanna. had ECHO done 10/08 LV EF normal, severe MR, moderate TR, can't be excluded -monitor lytes during diuresis -NC 02 as needed #Hx renal transplant -for now, c/w tacrolimus, mycophenolate -will need to d/w transplant doc -f/u tacrolimus level #?steroid dependent -for now, cont prednisone, cortef. recommend d/w endocrine - in Sep 2018 rec d/c cortef #HTN -c/w coreg, amlodipine #HLD -c/w lipitor #DM -ISS -BGM -cont w/levemir 30 HS. can restart AM dose once check BG in AM #BPH -c/w flomax #hx DVT, IVC filter -c/w eliquis #F/E/N avoid IVF, as with CHF continue to follow lytes w diuresis sodium controlled 2g, diabetic diet #PPX on eliquis #Dispo tele obs Visit type - Emergency Visit Emergency Visit: Yes ED Registration Date: 11/18/18 Care time: The patient presented to the Emergency Department on the above date and was hospitalized for further evaluation of their emergent condition. - New Patient This patient is new to me today: Yes Date on this admission: 11/18/18 - Critical Care Critical Care patient: No <Rosendo Gilbert - Last Filed: 11/30/18 20:42> Was present for all vital parts of encounter; plan discussed with me. Agree with above as documented by the resident.
[2018-11-18] MEDS: INSULIN SLIDING SCALE (NOVOLOG) 1 VIAL SQ SCH ×4 (06:44→22:01)
[2018-11-18] MEDS: ALBUTEROL SO4 2.5/IPRATROPIUM 0.5 INH SOL 3 ML VIAL.NEB. NEB SCH ×4 (07:32→20:21)
[2018-11-18 09:20] LABS: ANION GAP 9 MMOL/L (8-16); BLOOD UREA NITROGEN 45 mg/dL (7-18); CALCIUM 8.4 mg/dL (8.5-10.1); CHLORIDE 106 mmol/L (98-107); CO2 24 mmol/L (21-32); CREATININE 1.2 mg/dL (0.55-1.3); GLUCOSE,RANDOM 172 mg/dL (74-106); MAGNESIUM 1.5 mg/dL (1.8-2.4); PHOSPHOROUS 3.8 mg/dL (2.5-4.9); SODIUM 139 mmol/L (136-145)
--- NOTE | 2018-11-18 10:07 | CON.CARD ---
Cardiology Consult (text) - Consultation Consultation Note: HPI: 78 year old male with a complex PMH significant for renal transplant on immunosuppresive therapy, dementia, coronary artery disease status post CABG ( last ischemic evalulation 09/06 nuclear stress negative for ischemia), DVT on apixaban admitted with shortness of breath found to have heart failure exacerbation (BNP 9000s, CXR with pulmonary edema)- cardiology consulted for further management. Of note, patient is a poor historian. Patient recently treated for PNA and completed a course of antibiotics. +BARTOLOME, orthopnea, cough. Denies any lh, dizziness, chest pain or palpitations. Last echocardiogram 2017 with normal systolic function, moderate MR, mod-severe TR with RVSP 60mmHg , AV not well seen. Past Medical History Cardio/Vascular CAD,CHF,Deep Vein Thrombosis,HTN,IN,Other Renal/ Renal Inusuff,Other Infectious Disease C-Diff,MRSA,Other Endocrine Diabetes Mellitus Past Surgical History AV Fistula/Graft,CABG,Kidney Transplant Family Hx: NC Social Hx: denies alcohol, drugs or tobacco. Physical Exam Vital Signs - 24 hr 11/17/18 11/17/18 11/17/18 20:05 20:10 22:03 Temperature 98.9 F 98.9 F 98.7 F Pulse Rate 62 62 Pulse Rate [ 62 78 Left Radial] Respiratory 16 16 16 Rate Blood Pressure 124/72 Blood Pressure 124/72 144/65 [Left Arm] O2 Sat by Pulse 95 95 97 Oximetry (%) 11/18/18 11/18/18 11/18/18 02:41 04:21 05:31 Temperature 98.0 F 98.3 F 98.2 F Pulse Rate 88 Pulse Rate [ 97 H 90 Left Radial] Respiratory 19 19 24 H Rate Blood Pressure 137/54 L Blood Pressure 148/107 H 127/82 [Left Arm] O2 Sat by Pulse 95 95 94 L Oximetry (%) Gen: elderly male sitting upright in NAD HEENT: NC/AT Cardiac: S1/S2, 3/6 holosystolic murmur loudest at LSB. JVP to jaw Pulm: bibasilar rales Ext: 1+ BARTOLOME Abnormal Lab Results 11/17/18 11/17/18 11/17/18 21:40 21:40 21:40 WBC 10.7 H RBC 3.71 L Hgb 11.3 L Hct 32.8 L D RDW 16.5 H Monocytes % 11.3 H Sodium 135 L BUN 50 H Random Glucose 297 H Calcium 8.2 L Magnesium AST 10 L B-Natriuretic Peptide 9166.6 H Total Protein 5.8 L Albumin 3.2 L 11/18/18 07:40 WBC RBC Hgb Hct RDW Monocytes % Sodium BUN 45 H Random Glucose 172 H Calcium 8.4 L Magnesium 1.5 L AST B-Natriuretic Peptide Total Protein Albumin ECG: NSR, RBBB, LAFB. Poor baseline. (No significant change from 10/10/18) Active Medications Albuterol/Ipratropium (Duoneb -) 1 amp NEB RQID [facility] Last Admin: 11/18/18 07:32 Dose: 1 amp Amlodipine Besylate (Norvasc -) 10 mg PO DAILY [facility] Apixaban (Eliquis -) 5 mg PO BID [facility] Atorvastatin Calcium (Lipitor -) 80 mg PO HS [facility] Carvedilol (Coreg -) 25 mg PO BID [facility] Duloxetine HCl (Cymbalta -) 20 mg PO BID [facility] Furosemide (Lasix Injection -) 40 mg IVPUSH DAILY [facility] Hydrocortisone (Cortef -) 20 mg PO BID [facility] Insulin Aspart (Novolog Vial Sliding Scale -) 1 vial SQ [facility]; Protocol Last Admin: 11/18/18 06:44 Dose: 6 units Insulin Detemir (Levemir Vial) 30 units SQ HS [facility] Mycophenolate Sodium (Mycophenolic Acid) 360 mg PO BID [facility] Oxycodone HCl (Roxicodone -) 5 mg PO Q6H PRN PRN Reason: PAIN LEVEL 7 - 10 Prednisone (Deltasone -) 20 mg PO DAILY [facility] Tacrolimus (Prograf) 1 mg PO BID [facility] Tamsulosin HCl (Flomax -) 0.4 mg PO HS [facility] A/P: 78 year old male with a complex PMH significant for renal transplant on immunosuppresive therapy, dementia, coronary artery disease status post CABG ( last ischemic evalulation 09/06 nuclear stress negative for ischemia), DVT on apixaban admitted with shortness of breath found to have heart failure exacerbation (BNP 9000s, CXR with pulmonary edema)- cardiology consulted for further management #Acute on Chronic HF Etiology: unclear, dietary indiscretion, prednisone, infectious process Workup: --ECG with NSR RBBB, LAFB --troponin negative --CXR with pulmonary edema --echocardiogram 09/2018: normal systolic function, moderate MR, mod-severe TR with RVSP 60mmHg, AV not well seen. Treatment: --strict I/Os, daily weights, K>4, Mg>2, low salt diet --lasix IV 40mg qday for goal of net negative 1L --once euvolemic consider repeating echocardiogram to assess valvular heart disease #CAD s/p CABG --continue home atorvastatin, carvedilol 25mg BID #HTN; continue amlodipine #DVT s/p IVC filter; continue apixaban We will continue to follow. Froylan Davidson MD
[2018-11-18] MEDS ORDERED: PT OWN MED DRAWER 7, Y5N ONE ×3 (10:31→20:50)
[2018-11-18] MEDS: DULoxetine HCL 20 MG CAPSULE.DR (FP) PO SCH ×2 (10:34→21:58)
[2018-11-18] MEDS: TACROLIMUS ANHYDROUS 1 MG CAPSULE PO SCH ×2 (10:34→21:58)
[2018-11-18] MEDS: MYCOPHENOLATE SODIUM 360 MG TABLET.DR PO SCH ×2 (10:34→21:59)
[2018-11-18] MEDS: CARVEDILOL 25 MG TABLET (FP) PO SCH ×2 (10:34→21:59)
[2018-11-18] MEDS: APIXABAN 5 MG TABLET PO SCH ×2 (10:34→21:59)
[2018-11-18] MEDS: FUROSEMIDE 40 MG/4 ML INJECTABLE VIAL IVPUSH SCH (10:34)
[2018-11-18] MEDS: HYDROCORTISONE 20 MG TABLET PO SCH ×2 (10:34→22:00)
[2018-11-18] MEDS: amLODIPine BESYLATE 10 MG TABLET (FP) PO SCH (10:34)
--- NOTE | 2018-11-18 13:26 | EKG ---
Test Reason : Blood Pressure : / mmHG Vent. Rate : 086 BPM Atrial Rate : 086 BPM P-R Int : 152 ms QRS Dur : 146 ms QT Int : 398 ms P-R-T Axes : 040 -53 099 degrees QTc Int : 476 ms NORMAL SINUS RHYTHM WITH SINUS ARRHYTHMIA RIGHT BUNDLE BRANCH BLOCK LEFT ANTERIOR FASCICULAR BLOCK BIFASCICULAR BLOCK T WAVE ABNORMALITY, CONSIDER LATERAL ISCHEMIA ABNORMAL ECG WHEN COMPARED WITH ECG OF 10-OCT-2018 15:11, T WAVE INVERSION NOW EVIDENT IN ANTEROLATERAL LEADS Confirmed by NEEL BEAN MD ([id number]) on 11/18/2018 1:26:16 PM Referred By: Confirmed By:NEEL BEAN MD
--- NOTE | 2018-11-18 16:57 | PN ---
Progress Note, Physician Chief Complaint: SOB History of Present Illness: NAD Feeling better Seen by Cardiology for pulmonary edema - Current Medication List Current Medications: Active Medications Albuterol/Ipratropium (Duoneb -) 1 amp NEB RQID [facility] Last Admin: 11/18/18 15:43 Dose: 1 amp Amlodipine Besylate (Norvasc -) 10 mg PO DAILY [facility] Last Admin: 11/18/18 10:34 Dose: 10 mg Apixaban (Eliquis -) 5 mg PO BID [facility] Last Admin: 11/18/18 10:34 Dose: 5 mg Atorvastatin Calcium (Lipitor -) [address] [facility] Carvedilol (Coreg -) 25 mg PO BID [facility] Last Admin: 11/18/18 10:34 Dose: 25 mg Duloxetine HCl (Cymbalta -) 20 mg PO BID [facility] Last Admin: 11/18/18 10:34 Dose: 20 mg Furosemide (Lasix Injection -) 40 mg IVPUSH DAILY [facility] Last Admin: 11/18/18 10:34 Dose: 40 mg Hydrocortisone (Cortef -) 20 mg PO BID [facility] Last Admin: 11/18/18 10:34 Dose: 20 mg Insulin Aspart (Novolog Vial Sliding Scale -) 1 vial SQ [facility]; Protocol Last Admin: 11/18/18 14:07 Dose: 2 units Insulin Detemir (Levemir Vial) [address] [facility] Mycophenolate Sodium (Mycophenolic Acid) 360 mg PO BID [facility] Last Admin: 11/18/18 10:34 Dose: 360 mg Oxycodone HCl (Roxicodone -) 5 mg PO Q6H PRN PRN Reason: PAIN LEVEL 7 - 10 Prednisone (Deltasone -) 20 mg PO DAILY [facility] Tacrolimus (Prograf) 1 mg PO BID [facility] Last Admin: 11/18/18 10:34 Dose: 1 mg Tamsulosin HCl (Flomax -) 0.[address] [facility] - Objective Vital Signs: Vital Signs Temperature 98.6 F 11/18/18 09:46 Pulse Rate 90 11/18/18 09:46 Respiratory Rate 24 H 11/18/18 09:46 Blood Pressure 96/57 L 11/18/18 09:46 O2 Sat by Pulse Oximetry (%) 94 L 11/18/18 09:00 Constitutional: Yes: Well Nourished, No Distress, Calm Cardiovascular: Yes: Regular Rate and Rhythm Respiratory: Yes: Regular, Rales (BLLL) Gastrointestinal: Yes: WNL Musculoskeletal: Yes: Muscle Weakness Extremities: Yes: WNL Edema: No Peripheral Pulses WNL: Yes Neurological: Yes: Alert, Pre-Existing Deficit Psychiatric: Yes: Alert Labs: CBC, BMP 11/17/18 21:40 11/18/18 07:40 Problem List - Problems (1) CHF (congestive heart failure) Assessment/Plan: -Seen by cardiology -started on Furosemide 40 mg IVP dialy -CXR reviewed -Pulmonary consult -Low sodium/diabetic diet -Last echocardiogram 09/2018 with normal systolic function, moderate MR, mod- severe TR with RVSP 60mmHg, AV not well seen. Code(s): I50.9 - HEART FAILURE, UNSPECIFIED Qualifiers: Heart failure type: unspecified Heart failure chronicity: unspecified Qualified Code(s): I50.9 - Heart failure, unspecified (2) Acute metabolic encephalopathy Assessment/Plan: 2/ to CHF Code(s): G93.41 - METABOLIC ENCEPHALOPATHY (3) DM2 (diabetes mellitus, type 2) Assessment/Plan: -BGM AC HS -Low sodium diabetic diet -Novolog sliding scale + Levemir -RD consult -recheck A1c Code(s): E11.9 - TYPE 2 DIABETES MELLITUS WITHOUT COMPLICATIONS Qualifiers: Diabetes mellitus fpc insulin use: with fpc use (4) MDRO (multiple drug resistant organisms) resistance Assessment/Plan: -contact isolation Code(s): Z16.35 - RESISTANCE TO MULTIPLE ANTIMICROBIAL DRUGS Assessment/Plan see problem list Physical therapy
[2018-11-18] MEDS: TAMSULOSIN HCL 0.4 MG CAP PO SCH (21:59)
[2018-11-18] MEDS: ATORVASTATIN CA 80 MG TABLET (FP) PO SCH (21:59)
[2018-11-18] MEDS: INSULIN (LEVEMIR) 100 UNITS/ML UNITS SQ SCH (22:02)
[2018-11-19] MEDS: INSULIN SLIDING SCALE (NOVOLOG) 1 VIAL SQ SCH ×4 (06:12→22:08)
[2018-11-19] MEDS ORDERED: DEXTROSE 50%-WATER 25 GM/50 ML DISP.SYRIN ONE (06:32)
[2018-11-19] MEDS ORDERED: DEXTROSE 50%-WATER 25 GM/50 ML DISP.SYRIN IVPUSH ONE (07:30)
[2018-11-19 07:40] LABS: BASO % 0.4 % (0-2.0); EOS % 0.3 % (0-4.5); HEMATOCRIT 33.7 % (35.4-49); LYMPH % 17.7 % (8-40); MCH 29.1 pg (25.7-33.7); MCHC 32.7 g/dl (32.0-35.9); MEAN CELL VOLUME 89.1 fl (80-96); MEAN PLT VOLUME 8.1 fl (7.5-11.1); MONO % 10.2 % (3.8-10.2); NEUT % 71.4 % (42.8-82.8); PLATELET COUNT 164 K/MM3 (134-434); RBC 3.79 M/mm3 (4.00-5.60); RDW 16.8 % (11.9-15.9); WHITE BLOOD COUNT 9.4 K/mm3 (4.0-10.0)
[2018-11-19] MEDS: ALBUTEROL SO4 2.5/IPRATROPIUM 0.5 INH SOL 3 ML VIAL.NEB. NEB SCH ×4 (08:01→20:17)
[2018-11-19 08:26] LABS: ALBUMIN 2.7 g/dl (3.4-5.0); ALK PHOS 68 U/L (45-117); ANION GAP 8 MMOL/L (8-16); BILIRUBIN,TOTAL 0.8 mg/dL (0.2-1); BLOOD UREA NITROGEN 44 mg/dL (7-18); CALCIUM 8.4 mg/dL (8.5-10.1); CHLORIDE 107 mmol/L (98-107); CO2 26 mmol/L (21-32); CREATININE 1.2 mg/dL (0.55-1.3); GLUCOSE,RANDOM 130 mg/dL (74-106); POTASSIUM 3.6 mmol/L (3.5-5.1); SGOT/AST 33 U/L (15-37); SGPT/ALT 43 U/L (13-61); SODIUM 140 mmol/L (136-145); TOT PROT 5.1 g/dl (6.4-8.2)
--- NOTE | 2018-11-19 09:16 | PN ---
Progress Note, Physician Chief Complaint: SOB History of Present Illness: NAD Feeling better Seen by Cardiology for pulmonary edema - Current Medication List Current Medications: Active Medications Albuterol/Ipratropium (Duoneb -) 1 amp NEB RQID [facility] Last Admin: 11/19/18 08:01 Dose: Not Given Amlodipine Besylate (Norvasc -) 10 mg PO DAILY [facility] Last Admin: 11/18/18 10:34 Dose: 10 mg Apixaban (Eliquis -) 5 mg PO BID [facility] Last Admin: 11/18/18 21:59 Dose: 5 mg Atorvastatin Calcium (Lipitor -) 80 mg PO HS [facility] Last Admin: 11/18/18 21:59 Dose: 80 mg Carvedilol (Coreg -) 25 mg PO BID [facility] Last Admin: 11/18/18 21:59 Dose: 25 mg Duloxetine HCl (Cymbalta -) 20 mg PO BID [facility] Last Admin: 11/18/18 21:58 Dose: 20 mg Furosemide (Lasix Injection -) 40 mg IVPUSH DAILY [facility] Last Admin: 11/18/18 10:34 Dose: 40 mg Hydrocortisone (Cortef -) 20 mg PO BID [facility] Last Admin: 11/18/18 22:00 Dose: 20 mg Insulin Aspart (Novolog Vial Sliding Scale -) 1 vial SQ [facility]; Protocol Last Admin: 11/19/18 06:12 Dose: Not Given Insulin Detemir (Levemir Vial) 30 units SQ [facility] Last Admin: 11/18/18 22:02 Dose: 30 units Mycophenolate Sodium (Mycophenolic Acid) 360 mg PO BID [facility] Last Admin: 11/18/18 21:59 Dose: 360 mg Oxycodone HCl (Roxicodone -) 5 mg PO Q6H PRN PRN Reason: PAIN LEVEL 7 - 10 Prednisone (Deltasone -) 20 mg PO DAILY [facility] Tacrolimus (Prograf) 1 mg PO BID [facility] Last Admin: 11/18/18 21:58 Dose: 1 mg Tamsulosin HCl (Flomax -) 0.4 mg PO [facility] Last Admin: 11/18/18 21:59 Dose: 0.4 mg - Objective Vital Signs: Vital Signs Temperature 98.1 F 11/18/18 22:00 Pulse Rate 57 L 11/19/18 06:00 Respiratory Rate 22 H 11/19/18 06:00 Blood Pressure 120/27 L 11/19/18 06:00 O2 Sat by Pulse Oximetry (%) 93 L 11/18/18 21:00 Constitutional: Yes: Well Nourished, No Distress, Calm Cardiovascular: Yes: Regular Rate and Rhythm Respiratory: Yes: Regular Gastrointestinal: Yes: WNL Genitourinary: Yes: WNL Musculoskeletal: Yes: Muscle Weakness Extremities: Yes: WNL Edema: No Peripheral Pulses WNL: Yes Neurological: Yes: Alert, Pre-Existing Deficit Psychiatric: Yes: Alert Labs: CBC, BMP 11/19/18 07:30 11/19/18 07:30 Problem List - Problems (1) CHF (congestive heart failure) Assessment/Plan: -Seen by cardiology -started on Furosemide 40 mg IVP dialy -CXR reviewed -Pulmonary consult -Low sodium/diabetic diet -Last echocardiogram 09/2018 with normal systolic function, moderate MR, mod- severe TR with RVSP 60mmHg, AV not well seen. Code(s): I50.9 - HEART FAILURE, UNSPECIFIED Qualifiers: Heart failure type: unspecified Heart failure chronicity: unspecified Qualified Code(s): I50.9 - Heart failure, unspecified (2) Acute metabolic encephalopathy Assessment/Plan: 12/23 to CHF Code(s): G93.41 - METABOLIC ENCEPHALOPATHY (3) DM2 (diabetes mellitus, type 2) Assessment/Plan: -BGM AC HS -Low sodium diabetic diet -Novolog sliding scale + Levemir -RD consult -A1c 10.8 Code(s): E11.9 - TYPE 2 DIABETES MELLITUS WITHOUT COMPLICATIONS Qualifiers: Diabetes mellitus dental sales representative insulin use: with dental sales representative use (4) MDRO (multiple drug resistant organisms) resistance Assessment/Plan: -contact isolation Code(s): Z16.35 - RESISTANCE TO MULTIPLE ANTIMICROBIAL DRUGS Assessment/Plan see problem list Physical therapy
--- NOTE | 2018-11-19 10:16 | PN ---
Progress Note (short form) - Note Progress Note: Subjective: --No events overnight --Denies any lh, dizziness, chest pain or palpitations Objective: Vital Signs 11/19/18 06:00 Pulse Rate 57 L Respiratory 22 H Rate Blood Pressure 120/27 L Gen: elderly male sitting upright in NAD HEENT: NC/AT Cardiac: S1/S2, 3/6 holosystolic murmur loudest at LSB. JVP to jaw Pulm: bibasilar rales (improved from yesterday) Ext: 1+ BARTOLOME Abnormal Lab Results 11/19/18 11/19/18 11/19/18 07:30 07:30 07:30 RBC 3.79 L Hgb 11.0 L Hct 33.7 L RDW 16.8 H BUN 44 H Random Glucose 130 H Hemoglobin A1c % 10.8 H Calcium 8.4 L Total Protein 5.1 L Albumin 2.7 L ECG: NSR, RBBB, LAFB. Poor baseline. Active Medications Albuterol/Ipratropium (Duoneb -) 1 amp NEB RQID [facility] Last Admin: 11/19/18 08:01 Dose: Not Given Amlodipine Besylate (Norvasc -) 10 mg PO DAILY [facility] Last Admin: 11/18/18 10:34 Dose: 10 mg Apixaban (Eliquis -) 5 mg PO BID [facility] Last Admin: 11/18/18 21:59 Dose: 5 mg Atorvastatin Calcium (Lipitor -) 80 mg PO [facility] Last Admin: 11/18/18 21:59 Dose: 80 mg Carvedilol (Coreg -) 25 mg PO BID [facility] Last Admin: 11/18/18 21:59 Dose: 25 mg Duloxetine HCl (Cymbalta -) 20 mg PO BID [facility] Last Admin: 11/18/18 21:58 Dose: 20 mg Furosemide (Lasix Injection -) 40 mg IVPUSH DAILY [facility] Last Admin: 11/18/18 10:34 Dose: 40 mg Hydrocortisone (Cortef -) 20 mg PO BID [facility] Last Admin: 11/18/18 22:00 Dose: 20 mg Insulin Aspart (Novolog Vial Sliding Scale -) 1 vial SQ [facility]; Protocol Last Admin: 11/19/18 06:12 Dose: Not Given Insulin Detemir (Levemir Vial) 30 units SQ [facility] Last Admin: 11/18/18 22:02 Dose: 30 units Mycophenolate Sodium (Mycophenolic Acid) 360 mg PO BID [facility] Last Admin: 11/18/18 21:59 Dose: 360 mg Oxycodone HCl (Roxicodone -) 5 mg PO Q6H PRN PRN Reason: PAIN LEVEL 7 - 10 Prednisone (Deltasone -) 20 mg PO DAILY [facility] Tacrolimus (Prograf) 1 mg PO BID [facility] Last Admin: 11/18/18 21:58 Dose: 1 mg Tamsulosin HCl (Flomax -) 0.4 mg PO HS [facility] Last Admin: 11/18/18 21:59 Dose: 0.4 mg A/P: 78 year old male with a complex PMH significant for renal transplant on immunosuppresive therapy, dementia, coronary artery disease status post CABG ( last ischemic evalulation 09/06 nuclear stress negative for ischemia), DVT on apixaban admitted with shortness of breath found to have heart failure exacerbation (BNP 9000s, CXR with pulmonary edema)- cardiology consulted for further management #Acute on Chronic HF Etiology: unclear, dietary indiscretion, prednisone, infectious process Workup: --ECG with NSR RBBB, LAFB --troponin negative --CXR with pulmonary edema --echocardiogram 09/2018: normal systolic function, moderate MR, mod-severe TR with RVSP 60mmHg, AV not well seen. Treatment: --strict I/Os, daily weights, K>4, Mg>2, low salt diet --continue lasix IV 40mg qday for goal of net negative 1L --once euvolemic consider repeating echocardiogram to assess valvular heart disease #CAD s/p CABG --continue home atorvastatin, carvedilol 25mg BID #HTN; continue amlodipine #DVT s/p IVC filter; continue apixaban We will continue to follow. Froylan Davidson MD
[2018-11-19] MEDS ORDERED: PT OWN MED DRAWER 7, Y5N ONE (10:53)
[2018-11-19] MEDS: amLODIPine BESYLATE 10 MG TABLET (FP) PO SCH (11:03)
[2018-11-19] MEDS: APIXABAN 5 MG TABLET PO SCH ×2 (11:03→22:02)
[2018-11-19] MEDS: MYCOPHENOLATE SODIUM 360 MG TABLET.DR PO SCH ×2 (11:04→22:02)
[2018-11-19] MEDS: DULoxetine HCL 20 MG CAPSULE.DR (FP) PO SCH ×2 (11:04→22:02)
[2018-11-19] MEDS: HYDROCORTISONE 20 MG TABLET PO SCH ×2 (11:05→22:02)
[2018-11-19] MEDS: TACROLIMUS ANHYDROUS 1 MG CAPSULE PO SCH ×2 (11:06→22:02)
[2018-11-19] MEDS: CARVEDILOL 25 MG TABLET (FP) PO SCH ×2 (11:21→22:01)
--- NOTE | 2018-11-19 13:50 | PN ---
Progress Note (short form) - Note Progress Note: PULMONARY PATIENT IS OFF THE FLOOR FOR IMAGING STUDIES Genny WEBSTER MD
[2018-11-19] MEDS: FUROSEMIDE 40 MG/4 ML INJECTABLE VIAL IVPUSH SCH ×2 (18:21→19:33)
[2018-11-19] MEDS: TAMSULOSIN HCL 0.4 MG CAP PO SCH (22:02)
[2018-11-19] MEDS: ATORVASTATIN CA 80 MG TABLET (FP) PO SCH (22:02)
[2018-11-19] MEDS: INSULIN (LEVEMIR) 100 UNITS/ML UNITS SQ SCH (22:09)
[2018-11-20] MEDS: FUROSEMIDE 40 MG/4 ML INJECTABLE VIAL IVPUSH SCH ×2 (05:57→17:22)
[2018-11-20] MEDS: INSULIN SLIDING SCALE (NOVOLOG) 1 VIAL SQ SCH ×4 (06:32→22:32)
[2018-11-20] MEDS: ALBUTEROL SO4 2.5/IPRATROPIUM 0.5 INH SOL 3 ML VIAL.NEB. NEB SCH ×4 (07:40→20:20)
[2018-11-20] MEDS ORDERED: PT OWN MED DRAWER 7, Y5N ONE (11:05)
[2018-11-20] MEDS: APIXABAN 5 MG TABLET PO SCH ×2 (11:08→22:29)
[2018-11-20] MEDS: TACROLIMUS ANHYDROUS 1 MG CAPSULE PO SCH ×2 (11:09→22:31)
[2018-11-20] MEDS: CARVEDILOL 25 MG TABLET (FP) PO SCH ×2 (11:09→22:29)
[2018-11-20] MEDS: amLODIPine BESYLATE 10 MG TABLET (FP) PO SCH (11:09)
[2018-11-20] MEDS: DULoxetine HCL 20 MG CAPSULE.DR (FP) PO SCH ×2 (11:09→22:30)
[2018-11-20] MEDS: HYDROCORTISONE 20 MG TABLET PO SCH (11:09)
[2018-11-20] MEDS: MYCOPHENOLATE SODIUM 360 MG TABLET.DR PO SCH ×2 (11:09→22:31)
--- NOTE | 2018-11-20 11:25 | PN ---
Progress Note, Physician Chief Complaint: SOB Edema History of Present Illness: Previous notes and events reviewed awake and alert NAD afebrile states feeling better LLE doppler neg for DVT Noted to be coughing while eating - Current Medication List Current Medications: Active Medications Albuterol/Ipratropium (Duoneb -) 1 amp NEB RQID [facility] Last Admin: 11/20/18 07:40 Dose: 1 amp Amlodipine Besylate (Norvasc -) 10 mg PO DAILY [facility] Last Admin: 11/20/18 11:09 Dose: 10 mg Apixaban (Eliquis -) 5 mg PO BID [facility] Last Admin: 11/20/18 11:08 Dose: 5 mg Atorvastatin Calcium (Lipitor -) 80 mg PO HS [facility] Last Admin: 11/19/18 22:02 Dose: 80 mg Carvedilol (Coreg -) 25 mg PO BID [facility] Last Admin: 11/20/18 11:09 Dose: 25 mg Duloxetine HCl (Cymbalta -) 20 mg PO BID [facility] Last Admin: 11/20/18 11:09 Dose: 20 mg Furosemide (Lasix Injection -) 40 mg IVPUSH BID@0600,1800 [facility] Last Admin: 11/20/18 05:57 Dose: 40 mg Hydrocortisone (Cortef -) 20 mg PO BID [facility] Last Admin: 11/20/18 11:09 Dose: 20 mg Insulin Aspart (Novolog Vial Sliding Scale -) 1 vial SQ [facility]; Protocol Last Admin: 11/20/18 06:32 Dose: Not Given Insulin Detemir (Levemir Vial) 30 units SQ [facility] Last Admin: 11/19/18 22:09 Dose: 30 units Mycophenolate Sodium (Mycophenolic Acid) 360 mg PO BID [facility] Last Admin: 11/20/18 11:09 Dose: 360 mg Oxycodone HCl (Roxicodone -) 5 mg PO Q6H PRN PRN Reason: PAIN LEVEL 7 - 10 Prednisone (Deltasone -) 20 mg PO DAILY [facility] Tacrolimus (Prograf) 1 mg PO BID [facility] Last Admin: 11/20/18 11:09 Dose: 1 mg Tamsulosin HCl (Flomax -) 0.4 mg PO [facility] Last Admin: 11/19/18 22:02 Dose: 0.4 mg - Objective Vital Signs: Vital Signs Temperature 97.7 F 11/20/18 06:00 Pulse Rate 74 11/20/18 06:00 Respiratory Rate 18 11/20/18 06:00 Blood Pressure 105/34 L 11/20/18 06:00 O2 Sat by Pulse Oximetry (%) 95 11/19/18 21:00 Constitutional: Yes: Calm, Mild Distress Eyes: Yes: Conjunctiva Clear Neck: Yes: Supple Cardiovascular: Yes: WNL, Regular Rate and Rhythm Respiratory: Yes: On Nasal O2, Rales (Bilateral) Gastrointestinal: Yes: Normal Bowel Sounds, Soft Musculoskeletal: Yes: Muscle Weakness Extremities: Yes: WNL Edema: Yes Edema: LLE: 1+, RLE: Trace Integumentary: Yes: WNL, Other Wound/Incision: Yes: Other (dry wound R hand 3rd digit) Neurological: Yes: Alert, Oriented Psychiatric: Yes: Alert, Oriented Labs: CBC, BMP 11/19/18 07:30 11/19/18 07:30 - ....Imaging Other: Report Reviewed (Vascular study-LLE) <Shayna Wiggins - Last Filed: 11/20/18 20:49> - Current Medication List Current Medications: Active Medications Albuterol/Ipratropium (Duoneb -) 1 amp NEB RQID [facility] Last Admin: 11/21/18 07:25 Dose: 1 amp Amlodipine Besylate (Norvasc -) 10 mg PO DAILY [facility] Last Admin: 11/21/18 10:26 Dose: 10 mg Apixaban (Eliquis -) 5 mg PO BID [facility] Last Admin: 11/21/18 10:25 Dose: 5 mg Atorvastatin Calcium (Lipitor -) 80 mg PO [facility] Last Admin: 11/20/18 22:29 Dose: 80 mg Carvedilol (Coreg -) 25 mg PO BID [facility] Last Admin: 11/21/18 10:24 Dose: 25 mg Duloxetine HCl (Cymbalta -) 20 mg PO BID [facility] Last Admin: 11/21/18 10:25 Dose: 20 mg Furosemide (Lasix Injection -) 40 mg IVPUSH BID@0600,1800 [facility] Last Admin: 11/21/18 06:34 Dose: 40 mg Insulin Aspart (Novolog Vial Sliding Scale -) 1 vial SQ [facility]; Protocol Last Admin: 11/21/18 11:38 Dose: Not Given Insulin Detemir (Levemir Vial) 30 units SQ [facility] Last Admin: 11/20/18 22:32 Dose: 30 units Losartan Potassium (Cozaar -) 25 mg PO DAILY [facility] Last Admin: 11/21/18 10:24 Dose: 25 mg Mycophenolate Sodium (Mycophenolic Acid) 360 mg PO BID [facility] Last Admin: 11/21/18 10:26 Dose: 360 mg Prednisone (Deltasone -) 20 mg PO DAILY [facility] Last Admin: 11/21/18 10:25 Dose: 20 mg Tacrolimus (Prograf) 1 mg PO BID [facility] Last Admin: 11/21/18 10:26 Dose: 1 mg Tamsulosin HCl (Flomax -) 0.4 mg PO HS [facility] Last Admin: 11/20/18 22:29 Dose: 0.4 mg - Objective Vital Signs: Vital Signs Temperature 97.7 F 11/20/18 19:00 Pulse Rate 72 11/20/18 19:00 Respiratory Rate 20 11/20/18 19:00 Blood Pressure 113/68 11/20/18 19:00 O2 Sat by Pulse Oximetry (%) 98 11/20/18 21:00 Labs: CBC, BMP 11/21/18 06:23 11/21/18 06:23 <Cisco Palacios - Last Filed: 11/21/18 12:24> Problem List - Problems (1) CHF (congestive heart failure) Code(s): I50.9 - HEART FAILURE, UNSPECIFIED Qualifiers: Heart failure type: unspecified Heart failure chronicity: unspecified Qualified Code(s): I50.9 - Heart failure, unspecified (2) DM2 (diabetes mellitus, type 2) Code(s): E11.9 - TYPE 2 DIABETES MELLITUS WITHOUT COMPLICATIONS Qualifiers: Diabetes mellitus fdc insulin use: with salvage determiner use (3) MDRO (multiple drug resistant organisms) resistance Code(s): Z16.35 - RESISTANCE TO MULTIPLE ANTIMICROBIAL DRUGS (4) Acute metabolic encephalopathy Code(s): G93.41 - METABOLIC ENCEPHALOPATHY (5) Acute on chronic heart failure Code(s): I50.9 - HEART FAILURE, UNSPECIFIED <Shayna Wiggins - Last Filed: 11/20/18 20:49> Assessment/Plan -cardiology on board, recommendations appreciated -cont lasix IVP BID -low Na/diabetic diet -repeat echocardiogram when edema subside -pending pulm consult -hx of IVC filter, cont with apixiban -BGM ACHS, levemir, insulin sliding scale -1L fluid restriction, strict I&O -daily weights -O2 via NC, keep SpO2 >90% -elevate HOB -LAND ACQUISITION ANALYST consult -change diet to puree <Shayna Wiggins - Last Filed: 11/20/18 20:49> PATIENT SEEN AND EXAMINED AGREE WITH ABOVE NOTE <Cisco Palacios - Last Filed: 11/21/18 12:24>
[2018-11-20] MEDS ORDERED: INSULIN (NOVOLOG) ASPART 100 UNITS/ML 10ML VIAL ONE (13:02)
--- NOTE | 2018-11-20 14:46 | CON.PULM ---
Consult Consult Specialty:: PULMONARY Referred by:: EVER Reason for Consultation:: SOB - History of Present Illness Chief Complaint: SOB History of Present Illness: The patient is a 78 year old male with a significant past medical history of renal transplant on prograf (2008), CAD, MD, DM, HTN, HLD, CHF, mild aortic stenosis presenting with shortness of breath for the past 2 hours. Patient was given O2 en route to the ED by EMS. Patient's family is also complaining of leg swelling and puffiness in the face. Patient has leg swelling, but has noticed the left leg is more swollen than the right. Patient reports similar symptoms one month ago. 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 coli in past, osteomyelitis of his finger) Endocrine: Yes: Diabetes Mellitus - Past Surgical History Past Surgical History: Yes: AV Fistula/Graft (right upper arm, non working), CABG, Kidney Transplant (right 2008) - Alcohol/Substance Use Hx Alcohol Use: No History of Substance Use: reports: None - Smoking History Smoking history: Never smoked Have you smoked in the past 12 months: No Aproximately how many cigarettes per day: 0 - Social History Usual Living Arrangement: Alone ADL: Support Services Place of : Other History of Recent Travel: No Home Medications - Allergies Allergies/Adverse Reactions: Allergies Allergy/AdvReac Type Severity Reaction Status Date / Time No Known Drug Allergies Allergy Verified 11/17/18 20:05 - Home Medications Home Medications: Ambulatory Orders Acetaminophen [Tylenol .Regular Strength -] 650 mg PO Q4H PRN tablet 11/29/17 Albuterol 2.5/Ipratropium 0.5 [Duoneb -] 1 amp NEB QID 02/08/18 Amlodipine Besylate [Norvasc -] 10 mg PO DAILY #30 tablet 05/19/18 Apixaban [Eliquis] 5 mg PO BID #60 tablet 05/19/18 Atorvastatin Ca [Lipitor] 80 mg PO HS #60 tablet 05/19/18 Duloxetine HCl [Cymbalta] 20 mg PO BID #60 capsule. 05/19/18 Tamsulosin HCl [Flomax] 0.4 mg PO HS #30 cap.er.24h 05/19/18 predniSONE [Deltasone -] 20 mg PO DAILY #30 tablet 05/24/18 Carvedilol [Coreg -] 25 mg PO BID #60 tablet 09/14/18 Hydrocortisone [Cortef -] 20 mg PO BID tablet 09/14/18 Insulin (Levemir) [Levemir Vial] 25 units SQ AM units 09/14/18 Insulin (Levemir) [Levemir Vial] 30 units SQ HS units 09/14/18 Insulin Sliding Scale [Novolog Vial Sliding Scale -] 1 vial SQ TIDAC units Mycophenolate Sodium [Mycophenolic Acid] 360 mg PO BID tablet. 09/14/18 Tacrolimus Anhydrous [Prograf] 1 mg PO BID capsule 09/14/18 oxyCODONE HCL [Roxicodone -] 5 mg PO Q6H PRN tablet MDD 4 09/14/18 Cefuroxime Axetil [Cefuroxime] 500 mg PO BID #10 tablet 10/16/18 Family Disease History - Family Disease History Family History: Unable to Obtain Review of Systems Unable to obtain ROS, reason: UNABLE Physical Exam Vital Sings: Vital Signs Temperature 97.7 F 11/20/18 06:00 Pulse Rate 74 11/20/18 06:00 Respiratory Rate 18 11/20/18 06:00 Blood Pressure 105/34 L 11/20/18 06:00 O2 Sat by Pulse Oximetry (%) 95 11/19/18 21:00 Constitutional: Yes: Pallor Eyes: Yes: EOM Intact HENT: Yes: Normocephalic Neck: Yes: Trachea Midline Cardiovascular: Yes: Regular Rate and Rhythm Respiratory: Yes: Diminished, Rales Gastrointestinal: Yes: Soft Edema: LLE: 1+, RLE: 1+ Integumentary: Yes: WNL Neurological: Yes: Weakness Labs: CBC, BMP 11/19/18 07:30 11/19/18 07:30 REST REVIEWED Imaging - Results Chest X-ray: Report Reviewed, Image Reviewed Problem List - Problems (1) Acute on chronic heart failure Code(s): I50.9 - HEART FAILURE, UNSPECIFIED (2) CHF (congestive heart failure) Code(s): I50.9 - HEART FAILURE, UNSPECIFIED Qualifiers: Heart failure type: unspecified Heart failure chronicity: unspecified Qualified Code(s): I50.9 - Heart failure, unspecified (3) Renal transplant disorder Code(s): T86.10 - UNSPECIFIED COMPLICATION OF KIDNEY TRANSPLANT (4) CHUCK (acute kidney injury) Code(s): N17.9 - ACUTE KIDNEY FAILURE, UNSPECIFIED (5) Acute respiratory failure Code(s): J96.00 - ACUTE RESPIRATORY FAILURE, UNSP W HYPOXIA OR HYPERCAPNIA (6) Acute type 2 diabetes mellitus with manifestations Code(s): E11.8 - TYPE 2 DIABETES MELLITUS WITH UNSPECIFIED COMPLICATIONS (7) Immunocompromised patient Code(s): D84.9 - IMMUNODEFICIENCY, UNSPECIFIED (8) Transplant recipient Code(s): Z94.89 - OTHER TRANSPLANTED ORGAN AND TISSUE STATUS Assessment/Plan Acute on Chronic HF with pulmonary edema CAD s/p CABG Renal transplant on immumosuppressants HTN DVT s/p IVC filter; continue apixaban O2 titration to keep sat >90% Diuresis/glycemic control/anticoagulation/ continue anti-rejection medication obtain influ A/B screen bronchodilators will follow Genny WEBSTER MD
--- NOTE | 2018-11-20 15:46 | PN ---
Progress Note, Physician Chief Complaint: Pt denies chest pain; +cough (denies sore throat); with periods of dyspnea.; says he does not eat because it makes him cough (but ate everything on breakfast tray, per staff). Says he has had diarrhea for the past 2 weeks (but, though he says he had another episode today, nursing staff says this was not the case). History of Present Illness: The patient is a 78 year old male with a significant past medical history of renal transplant on prograf (2008), CAD, CA, DM, HTN, HLD, CHF, mild aortic stenosis presenting with shortness of breath for the past 2 hours. Patient was given O2 en route to the ED by EMS. Patient's family is also complaining of leg swelling and puffiness in the face. Patient has leg swelling, but has noticed the left leg is more swollen than the right. Patient reports similar symptoms one month ago. Patient denies chest pain, fever, chills, nausea, vomiting, urinary symptoms, or changes in bowel movements. Allergies: NKDA Surgeries: None Social: No reported alcohol, drug or cigarette use - Current Medication List Current Medications: Active Medications Albuterol/Ipratropium (Duoneb -) 1 amp NEB RQID [facility] Last Admin: 11/20/18 15:39 Dose: 1 amp Amlodipine Besylate (Norvasc -) 10 mg PO DAILY [facility] Last Admin: 11/20/18 11:09 Dose: 10 mg Apixaban (Eliquis -) 5 mg PO BID [facility] Last Admin: 11/20/18 11:08 Dose: 5 mg Atorvastatin Calcium (Lipitor -) 80 mg PO HS [facility] Last Admin: 11/19/18 22:02 Dose: 80 mg Carvedilol (Coreg -) 25 mg PO BID [facility] Last Admin: 11/20/18 11:09 Dose: 25 mg Duloxetine HCl (Cymbalta -) 20 mg PO BID [facility] Last Admin: 11/20/18 11:09 Dose: 20 mg Furosemide (Lasix Injection -) 40 mg IVPUSH BID@0600,1800 [facility] Last Admin: 11/20/18 05:57 Dose: 40 mg Hydrocortisone (Cortef -) 20 mg PO BID [facility] Last Admin: 11/20/18 11:09 Dose: 20 mg Insulin Aspart (Novolog Vial Sliding Scale -) 1 vial SQ [facility]; Protocol Last Admin: 11/20/18 13:10 Dose: 4 units Insulin Detemir (Levemir Vial) 30 units SQ [facility] Last Admin: 11/19/18 22:09 Dose: 30 units Mycophenolate Sodium (Mycophenolic Acid) 360 mg PO BID [facility] Last Admin: 11/20/18 11:09 Dose: 360 mg Oxycodone HCl (Roxicodone -) 5 mg PO Q6H PRN PRN Reason: PAIN LEVEL 7 - 10 Prednisone (Deltasone -) 20 mg PO DAILY [facility] Tacrolimus (Prograf) 1 mg PO BID [facility] Last Admin: 11/20/18 11:09 Dose: 1 mg Tamsulosin HCl (Flomax -) 0.4 mg PO [facility] Last Admin: 11/19/18 22:02 Dose: 0.4 mg - Objective Vital Signs: Vital Signs Temperature 98.4 F 11/20/18 14:51 Pulse Rate 74 11/20/18 14:51 Respiratory Rate 18 11/20/18 14:51 Blood Pressure 120/60 11/20/18 14:51 O2 Sat by Pulse Oximetry (%) 95 11/19/18 21:00 Constitutional: Yes: No Distress Eyes: Yes: WNL HENT: Yes: WNL Cardiovascular: Yes: S1, S2 Respiratory: Yes: WNL Gastrointestinal: Yes: Soft ...Rectal Exam: Yes: Deferred Genitourinary: No: Anuria Breast(s): Yes: WNL Musculoskeletal: Yes: Muscle Weakness Extremities: Yes: Cool Edema: Yes Edema: LLE: Trace, RLE: Trace Peripheral Pulses WNL: Yes Integumentary: Yes: WNL Neurological: Yes: Alert, Weakness Psychiatric: Yes: Other Labs: CBC, BMP 11/19/18 07:30 11/19/18 07:30 Abnormal Lab Results 11/21/18 11/21/18 11/21/18 06:23 06:23 06:23 RBC 3.47 L Hgb 9.9 L Hct 31.1 L MCHC 31.7 L RDW 16.2 H BUN 48 H Creatinine 1.5 H Random Glucose 171 H Calcium 7.7 L B-Natriuretic Peptide 4614.2 H Total Protein 4.7 L Albumin 2.3 L HDL Cholesterol 37 L - ....Imaging Chest X-ray: Image Reviewed (pulmonary vasculature congestion) Problem List - Problems (1) Acute on chronic diastolic (congestive) heart failure Assessment/Plan: start losartan (HTN; DM--renal protection; s/p transplant). On furosemide. F/u K: keep 4-4.5 On apixaban: ? hx PAF; no hx known of PE or DVT. F?u BUN/Cr, electrolytes, daily weight, Is and Os. Code(s): I50.33 - ACUTE ON CHRONIC DIASTOLIC (CONGESTIVE) HEART FAILURE (2) Diabetes Code(s): E11.9 - TYPE 2 DIABETES MELLITUS WITHOUT COMPLICATIONS (3) HTN (hypertension) Code(s): I10 - ESSENTIAL (PRIMARY) HYPERTENSION Qualifiers: Hypertension type: essential hypertension Qualified Code(s): I10 - Essential (primary) hypertension (4) Kidney transplant recipient Code(s): Z94.0 - KIDNEY TRANSPLANT STATUS (5) Bifascicular block Code(s): I45.2 - BIFASCICULAR BLOCK (6) Myocardial infarct, old Assessment/Plan: Hx "CABG"; f/u records. On apixaban: hx DVT. (EKG this admission: NSR). Code(s): I25.2 - OLD MYOCARDIAL INFARCTION (7) DVT (deep venous thrombosis) Assessment/Plan: ?Time period when this occurred. s/p IVC filter. On Apixaban; f/u w/u for decision on its continuation. Code(s): I82.409 - ACUTE EMBOLISM AND THOMBOS UNSP DEEP VN UNSP LOWER EXTREMITY
[2018-11-20] MEDS ORDERED: POTASSIUM CHLORIDE TABS 20 MEQ TABLET.ER (FP) PO ONE (16:11)
[2018-11-20 16:12] LABS: MAGNESIUM 1.8 mg/dL (1.8-2.4)
[2018-11-20] MEDS ORDERED: LOSARTAN POTASSIUM 25 MG TABLET PO ONE (16:14)
[2018-11-20] MEDS ORDERED: MAGNESIUM OXIDE 400 MG TABLET (FP) PO ONE (16:30)
--- NOTE | 2018-11-20 17:29 | CONSULT ---
Admitting History and Physical - Admission Chief Complaint: Coughing during meals. 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 coli in past, osteomyelitis of his finger) Endocrine: Yes: Diabetes Mellitus - Past Surgical History Past Surgical History: Yes: AV Fistula/Graft (right upper arm, non working), CABG, Kidney Transplant (right 2009) - Smoking History Smoking history: Never smoked Have you smoked in the past 12 months: No Aproximately how many cigarettes per day: 0 - Alcohol/Substance Use Hx Alcohol Use: No History of Substance Use: reports: None - Social History ADL: Support Services History of Recent Travel: No History - Admission Reason For Visit: DIFFICULTY BREATHING - General Mental Status: Alert and Oriented, Awake and Alert, Able to Follow Commands ( Follows commands with repetition and cueing.) Attention: Intact Ability to Follow Directions: Good Head/Neck Control: Good - Hearing Hearing: Functional (Tends to require repetition.) Hearing: Normal Speech Evaluation - Communication Primary Language: TAMAZIGHT (Speaks and understands Telugu.) Communication: Yes: Simple Responses Oral Expression Ability: Yes: Mild Impairment - Speech Production Apraxia: No Able to Make Needs Known: Yes: WNL Intelligibility: Yes: Mildly Impaired - Speech Characteristics Voice Loudness: Normal Voice Pitch: Yes: Normal Voice Phonatory-based Quality: Yes: Hoarse, Breathy (Mild hoarse and breathy voice.) Speech Pattern: Normal Nasal Resonance: Normal Articulation: Yes: Precise Rate of Speech: Too Fast (Tends to speak a little fast.) Voice, Other Observations: Yes: Mouth Breathing (Open mouthed posture at times.) - Language/Auditory Comprehension Observation: Able to respond to yes/no queries: Yes, Comprehends Conversational Speech: Yes, Benefits from Slow Speech: Yes, Benefits from Repetiton: Yes, Benefits from Increased Volume of Speech: Yes - Language/Verbal Expression Aphasia: Yes: Fluent Able to Respond to Simple Queries: Yes: Mildly Impaired (Requires repetition at times.) Able to Communicate Wants and Needs: Yes: WNL Functional Communication Status: Yes: WNL Attention: Yes: Minimal Impairment (Tends to be easily distracted but easily re- directed.) - Memory/Perception long-term Memory: Yes: WNL - Swallow Evaluation/Bedside Assessment Current Nutritional Intake: Dysphagia Pureed Oral Secretions: Yes: WFL Tracheostomy Present: No Patient on Ventilator: No Dentition: Yes: Adequate Facial Symmetry at Rest: Symmetrical Facial Symmetry on Retraction: Symmetrical Facial Movement: Controlled Sensation: Normal Jaw Position: Open at Rest Against Resistance Opening: Normal Against Resistance Closing: Normal Pucker Lips: Reduced ROM Smile: Reduced ROM Lingual Movement: Reduced Protrusion Lingual Speed of Movement: Normal Lingual Movement Strgth Against Opposition: Reduced Lingual Movement Characteristics: Normal Lingual Comment: Coating noted on tongue. Discussed oral hygiene with Pt. and Nurse. Soft Palate Description: Normal Color Hard Palate Description: Normal Color Gag Reflex: Weak Velopharyngeal Movement: Normal Laryngeal Elevation: Impaired Laryngeal Movement: Able to Palpate Needs Assistance: Yes Rate of Intake: Impulsive Bolus Size: WFL Labial Seal: WFL Chewing: WFL Oral Prep Time: WFL A-P Transit: WFL Pocketing: None Timing of Swallow: WFL Coughing/Throat Clear: Yes (Throat clear.) Change in Voice: Yes (Wet vocal quality. Difficult to get Pt. to perform cough- swallow-cough.) - Food Behavior Thickened Liquids Food Behaviors: Yes: Residual on Tongue, Wet Voice (Pt. requires reminder to take small bites and single sips. Pt. upright during meals and at least 45 minutes afterward.) Recommendations - Speech Evaluation, Impression/Plan Impression: Pharyngeal Dysphagia. Recommend continued puree solids and nectar thickened liquids. Pt. tends to be impulsive and requires verbal reminders to take small bites of solids and single sips of liquid. Verbal reminders also necessary for slow pace during meals. If coughing meal should stop and continue once Pt. catches his breath. Upright during meals and at least 45 minutes afterward. Watch for wet vocal quality after eating. Recommended Therapies: Swallowing (Monitor for compliance with compensatory strategies.) Usp Goals: Least restrictive diet consistency for Pt. safety. Short Term Goals: Pt. will take small small amounts of food into his mouth. Pt. janet taks single sips of liquid. Pt. will stop eating if he has difficulty breathing. Recommended Frequency for Therapy: Twice a Week - Disposition Discharge to: To be Determined - Dysphagia Impressions/Plan Swallowing Skills: Impaired Dysphagia Impressions: Moderate Impairment *Silent aspiration: cannot be R/O at bedside Dysphagia Treatment Plan: Small Bites, OOB for 1 h. after meals Recommendations: Modified Barium Swallow - Recommendations Diet Consistency: Dysphagia Pureed Liquids: [place] Thick (Supervision during meals.)
[2018-11-20] MEDS: ATORVASTATIN CA 80 MG TABLET (FP) PO SCH (22:29)
[2018-11-20] MEDS: TAMSULOSIN HCL 0.4 MG CAP PO SCH (22:29)
[2018-11-20] MEDS: INSULIN (LEVEMIR) 100 UNITS/ML UNITS SQ SCH (22:32)
[2018-11-21] MEDS ORDERED: DEXTROSE 50%-WATER 25 GM/50 ML DISP.SYRIN IVPUSH ONE (05:46)
[2018-11-21] MEDS ORDERED: DEXTROSE 50%-WATER 25 GM/50 ML DISP.SYRIN ONE (06:00)
[2018-11-21] MEDS: INSULIN SLIDING SCALE (NOVOLOG) 1 VIAL SQ SCH ×4 (06:28→22:21)
[2018-11-21] MEDS: FUROSEMIDE 40 MG/4 ML INJECTABLE VIAL IVPUSH SCH ×2 (06:34→17:27)
[2018-11-21] MEDS: ALBUTEROL SO4 2.5/IPRATROPIUM 0.5 INH SOL 3 ML VIAL.NEB. NEB SCH ×4 (07:25→20:50)
[2018-11-21 08:22] LABS: HEMATOCRIT 31.1 % (35.4-49); HEMOGLOBIN 9.9 GM/dL (11.7-16.9); MCH 28.5 pg (25.7-33.7); MCHC 31.7 g/dl (32.0-35.9); MEAN CELL VOLUME 89.7 fl (80-96); MEAN PLT VOLUME 8.1 fl (7.5-11.1); PLATELET COUNT 172 K/MM3 (134-434); RBC 3.47 M/mm3 (4.00-5.60); RDW 16.2 % (11.9-15.9); WHITE BLOOD COUNT 8.8 K/mm3 (4.0-10.0)
[2018-11-21 09:00] LABS: BLOOD UREA NITROGEN 48 mg/dL (7-18); CHLORIDE 106 mmol/L (98-107); CREATININE 1.5 mg/dL (0.55-1.3); GLUCOSE,RANDOM 171 mg/dL (74-106); POTASSIUM 3.6 mmol/L (3.5-5.1); SODIUM 140 mmol/L (136-145)
[2018-11-21 09:01] LABS: ALBUMIN 2.3 g/dl (3.4-5.0); ALK PHOS 74 U/L (45-117); ANION GAP 8 MMOL/L (8-16); BILIRUBIN,TOTAL 0.5 mg/dL (0.2-1); CALCIUM 7.7 mg/dL (8.5-10.1); CHOLESTEROL 102 mg/dL (50-200); CO2 26 mmol/L (21-32); HDL CHOLESTEROL 37 mg/dL (40-60); SGOT/AST 19 U/L (15-37); SGPT/ALT 44 U/L (13-61); TOT PROT 4.7 g/dl (6.4-8.2); TRIGLYCERIDES 88 mg/dL (0-150)
[2018-11-21] MEDS ORDERED: predniSONE 20 MG TABLET (UD) PO SCH (10:00)
[2018-11-21] MEDS ORDERED: PT OWN MED DRAWER 7, Y5N ONE ×2 (10:10→21:44)
[2018-11-21] MEDS: LOSARTAN POTASSIUM 25 MG TABLET PO SCH (10:24)
[2018-11-21] MEDS: CARVEDILOL 25 MG TABLET (FP) PO SCH ×2 (10:24→21:57)
[2018-11-21] MEDS: DULoxetine HCL 20 MG CAPSULE.DR (FP) PO SCH ×2 (10:25→21:56)
[2018-11-21] MEDS: APIXABAN 5 MG TABLET PO SCH ×2 (10:25→21:56)
[2018-11-21] MEDS: amLODIPine BESYLATE 10 MG TABLET (FP) PO SCH (10:26)
[2018-11-21] MEDS: TACROLIMUS ANHYDROUS 1 MG CAPSULE PO SCH ×2 (10:26→21:56)
[2018-11-21] MEDS: MYCOPHENOLATE SODIUM 360 MG TABLET.DR PO SCH ×2 (10:26→21:56)
--- NOTE | 2018-11-21 10:57 | PN ---
Progress Note (short form) - Note Progress Note: PULMONARY AWAKE/ALERT APPEARS COMFORTABLE Constitutional: Yes: Pallor Eyes: Yes: EOM Intact HENT: Yes: Normocephalic Neck: Yes: Trachea Midline Cardiovascular: Yes: Regular Rate and Rhythm Respiratory: Yes: Diminished, Rales Gastrointestinal: Yes: Soft Edema: LLE: 1+, RLE: 1+ Integumentary: Yes: WNL Neurological: Yes: Weakness Labs: REVIEWED Imaging - Results Chest X-ray: Report Reviewed, Image Reviewed Problem List - Problems (1) Acute on chronic heart failure Code(s): I50.9 - HEART FAILURE, UNSPECIFIED (2) CHF (congestive heart failure) Code(s): I50.9 - HEART FAILURE, UNSPECIFIED Qualifiers: Heart failure type: unspecified Heart failure chronicity: unspecified Qualified Code(s): I50.9 - Heart failure, unspecified (3) Renal transplant disorder Code(s): T86.10 - UNSPECIFIED COMPLICATION OF KIDNEY TRANSPLANT (4) CHUCK (acute kidney injury) Code(s): N17.9 - ACUTE KIDNEY FAILURE, UNSPECIFIED (5) Acute respiratory failure Code(s): J96.00 - ACUTE RESPIRATORY FAILURE, UNSP W HYPOXIA OR HYPERCAPNIA (6) Acute type 2 diabetes mellitus with manifestations Code(s): E11.8 - TYPE 2 DIABETES MELLITUS WITH UNSPECIFIED COMPLICATIONS (7) Immunocompromised patient Code(s): D84.9 - IMMUNODEFICIENCY, UNSPECIFIED (8) Transplant recipient Code(s): Z94.89 - OTHER TRANSPLANTED ORGAN AND TISSUE STATUS Assessment/Plan Acute on Chronic HF with pulmonary edema CAD s/p CABG Renal transplant on immumosuppressants HTN DVT s/p IVC filter; continue apixaban O2 titration to keep sat >90% Diuresis/glycemic control/anticoagulation/ continue anti-rejection medication influ A/B screen is negative bronchodilators Genny WEBSTER MD Problem List - Problems (1) Acute on chronic heart failure Code(s): I50.9 - HEART FAILURE, UNSPECIFIED (2) CHF (congestive heart failure) Code(s): I50.9 - HEART FAILURE, UNSPECIFIED Qualifiers: Heart failure type: unspecified Heart failure chronicity: unspecified Qualified Code(s): I50.9 - Heart failure, unspecified (3) Renal transplant disorder Code(s): T86.10 - UNSPECIFIED COMPLICATION OF KIDNEY TRANSPLANT (4) CHUCK (acute kidney injury) Code(s): N17.9 - ACUTE KIDNEY FAILURE, UNSPECIFIED (5) Acute respiratory failure Code(s): J96.00 - ACUTE RESPIRATORY FAILURE, UNSP W HYPOXIA OR HYPERCAPNIA (6) Acute type 2 diabetes mellitus with manifestations Code(s): E11.8 - TYPE 2 DIABETES MELLITUS WITH UNSPECIFIED COMPLICATIONS (7) Immunocompromised patient Code(s): D84.9 - IMMUNODEFICIENCY, UNSPECIFIED (8) Transplant recipient Code(s): Z94.89 - OTHER TRANSPLANTED ORGAN AND TISSUE STATUS
--- NOTE | 2018-11-21 12:37 | PN ---
Progress Note, Physician Chief Complaint: AWAKE ALERT ON LIQUID DIET DUE TO COUGH AND ASPIRATION PRECAUTIONS - Current Medication List Current Medications: Active Medications Albuterol/Ipratropium (Duoneb -) 1 amp NEB RQID [facility] Last Admin: 11/21/18 07:25 Dose: 1 amp Amlodipine Besylate (Norvasc -) 10 mg PO DAILY [facility] Last Admin: 11/21/18 10:26 Dose: 10 mg Apixaban (Eliquis -) 5 mg PO BID [facility] Last Admin: 11/21/18 10:25 Dose: 5 mg Atorvastatin Calcium (Lipitor -) 80 mg PO HS [facility] Last Admin: 11/20/18 22:29 Dose: 80 mg Carvedilol (Coreg -) 25 mg PO BID [facility] Last Admin: 11/21/18 10:24 Dose: 25 mg Duloxetine HCl (Cymbalta -) 20 mg PO BID [facility] Last Admin: 11/21/18 10:25 Dose: 20 mg Furosemide (Lasix Injection -) 40 mg IVPUSH BID@0600,1800 [facility] Last Admin: 11/21/18 06:34 Dose: 40 mg Insulin Aspart (Novolog Vial Sliding Scale -) 1 vial SQ [facility]; Protocol Last Admin: 11/21/18 11:38 Dose: Not Given Insulin Detemir (Levemir Vial) 30 units SQ [facility] Last Admin: 11/20/18 22:32 Dose: 30 units Losartan Potassium (Cozaar -) 25 mg PO DAILY [facility] Last Admin: 11/21/18 10:24 Dose: 25 mg Mycophenolate Sodium (Mycophenolic Acid) 360 mg PO BID [facility] Last Admin: 11/21/18 10:26 Dose: 360 mg Prednisone (Deltasone -) 20 mg PO DAILY [facility] Last Admin: 11/21/18 10:25 Dose: 20 mg Tacrolimus (Prograf) 1 mg PO BID [facility] Last Admin: 11/21/18 10:26 Dose: 1 mg Tamsulosin HCl (Flomax -) 0.4 mg PO [facility] Last Admin: 11/20/18 22:29 Dose: 0.4 mg - Objective Vital Signs: Vital Signs Temperature 97.7 F 11/20/18 19:00 Pulse Rate 72 11/20/18 19:00 Respiratory Rate 20 11/20/18 19:00 Blood Pressure 113/68 11/20/18 19:00 O2 Sat by Pulse Oximetry (%) 98 11/20/18 21:00 Constitutional: Yes: Mild Distress Eyes: Yes: WNL HENT: Yes: WNL Neck: Yes: WNL Cardiovascular: Yes: Murmur Respiratory: Yes: Cough, On Nasal O2, Rhonchi Gastrointestinal: Yes: Soft Genitourinary: Yes: Incontinence Musculoskeletal: Yes: Muscle Weakness Extremities: Yes: Other Edema: Yes Edema: LLE: Trace, RLE: Trace Peripheral Pulses WNL: Yes Integumentary: Yes: WNL Wound/Incision: Yes: Clean/Dry Neurological: Yes: Pre-Existing Deficit ...Motor Strength: LLE, RLE Psychiatric: Yes: Other Labs: CBC, BMP 11/21/18 06:23 11/21/18 06:23 Problem List - Problems (1) Acute on chronic diastolic (congestive) heart failure Code(s): I50.33 - ACUTE ON CHRONIC DIASTOLIC (CONGESTIVE) HEART FAILURE (2) Diabetes Code(s): E11.9 - TYPE 2 DIABETES MELLITUS WITHOUT COMPLICATIONS (3) Myocardial infarct, old Code(s): I25.2 - OLD MYOCARDIAL INFARCTION (4) Renal transplant disorder Code(s): T86.10 - UNSPECIFIED COMPLICATION OF KIDNEY TRANSPLANT (6) Acute metabolic encephalopathy Code(s): G93.41 - METABOLIC ENCEPHALOPATHY (7) Acute type 2 diabetes mellitus with manifestations Code(s): E11.8 - TYPE 2 DIABETES MELLITUS WITH UNSPECIFIED COMPLICATIONS (8) Dysphagia Code(s): R13.10 - DYSPHAGIA, UNSPECIFIED Qualifiers: Dysphagia type: pharyngeal phase Qualified Code(s): R13.13 - Dysphagia, pharyngeal phase Assessment/Plan SWALLOW EVAL AND WORKUP CONTINUED MAY NEED MODIFIED BARIUM SWALLOW STAY ON THICKENED LIQUIDS PT/OOB TO CHAIR WITH ASSIST RENAL EVAL A1C 10% ++ WILL NEED NUTRITION/ENDOCRINOLOGY EVAL TIGHTEN BGM CONTROL SSI/ADA NEBS/02 SUPPORT
--- NOTE | 2018-11-21 13:15 | CONSULT ---
Consult Consult Specialty:: Endocrinology Referred by:: Dr Palacios Reason for Consultation:: Uncontrolled blood sugar - History of Present Illness Chief Complaint: SOB History of Present Illness: This is a 78 year old male with history of renal transplant on prograf (2008), CAD, IA, T2DM for about 15 years, on Insulin for 12, HTN, HLD, CHF, mild aortic stenosis who was admetted with shortness of breath. Patient was given O2 en route to the ED by EMS. Patient's family also complained of leg swelling and puffiness of the face. Patient had leg swelling, but had noticed the left leg to be more swollen than the right. Patient reported similar symptoms one month ago. Pt referred for management of uncontrolled blood sugar. Pt currently on Levemir 30 units daily and Novolog SS coverage. Pt says he get Insulin twice daily at home. 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 coli in past, osteomyelitis of his finger) Endocrine: Yes: Diabetes Mellitus - Past Surgical History Past Surgical History: Yes: AV Fistula/Graft (right upper arm, non working), CABG, Kidney Transplant (right 2008) - Alcohol/Substance Use Hx Alcohol Use: No History of Substance Use: reports: None - Smoking History Smoking history: Never smoked Have you smoked in the past 12 months: No Aproximately how many cigarettes per day: 0 - Social History Usual Living Arrangement: Alone ADL: Support Services History of Recent Travel: No Home Medications - Allergies Allergies/Adverse Reactions: Allergies Allergy/AdvReac Type Severity Reaction Status Date / Time No Known Drug Allergies Allergy Verified 11/17/18 20:05 - Home Medications Home Medications: Ambulatory Orders Acetaminophen [Tylenol .Regular Strength -] 650 mg PO Q4H PRN tablet 11/29/17 Albuterol 2.5/Ipratropium 0.5 [Duoneb -] 1 amp NEB QID 02/08/18 Amlodipine Besylate [Norvasc -] 10 mg PO DAILY #30 tablet 05/19/18 Apixaban [Eliquis] 5 mg PO BID #60 tablet 05/19/18 Atorvastatin Ca [Lipitor] 80 mg PO HS #60 tablet 05/19/18 Duloxetine HCl [Cymbalta] 20 mg PO BID #60 capsule. 05/19/18 Tamsulosin HCl [Flomax] 0.4 mg PO HS #30 cap.er.24h 05/19/18 predniSONE [Deltasone -] 20 mg PO DAILY #30 tablet 05/24/18 Carvedilol [Coreg -] 25 mg PO BID #60 tablet 09/14/18 Hydrocortisone [Cortef -] 20 mg PO BID tablet 09/14/18 Insulin (Levemir) [Levemir Vial] 25 units SQ AM units 09/14/18 Insulin (Levemir) [Levemir Vial] 30 units SQ HS units 09/14/18 Insulin Sliding Scale [Novolog Vial Sliding Scale -] 1 vial SQ TIDAC units Mycophenolate Sodium [Mycophenolic Acid] 360 mg PO BID tablet. 09/14/18 Tacrolimus Anhydrous [Prograf] 1 mg PO BID capsule 09/14/18 oxyCODONE HCL [Roxicodone -] 5 mg PO Q6H PRN tablet MDD 4 09/14/18 Cefuroxime Axetil [Cefuroxime] 500 mg PO BID #10 tablet 10/16/18 Family Disease History - Family Disease History Family Disease History: Diabetes: Brother Review of Systems - Review of Systems Constitutional: reports: No Symptoms Eyes: reports: No Symptoms HENT: reports: No Symptoms Neck: reports: No Symptoms Cardiovascular: reports: No Symptoms Respiratory: reports: No Symptoms Gastrointestinal: reports: No Symptoms Genitourinary: reports: No Symptoms Musculoskeletal: reports: No Symptoms Neurological: reports: No Symptoms Endocrine: reports: No Symptoms Hematology/Lymphatic: reports: No Symptoms Physical Exam Vital Signs: Vital Signs Temperature 97.7 F 11/20/18 19:00 Pulse Rate 72 11/20/18 19:00 Respiratory Rate 20 11/20/18 19:00 Blood Pressure 113/68 11/20/18 19:00 O2 Sat by Pulse Oximetry (%) 98 11/20/18 21:00 Constitutional: Yes: No Distress, Calm Eyes: Yes: Conjunctiva Clear, EOM Intact HENT: Yes: Atraumatic, Normocephalic Neck: Yes: Supple, Trachea Midline Cardiovascular: Yes: Regular Rate and Rhythm Respiratory: Yes: Regular, CTA Bilaterally Gastrointestinal: Yes: Normal Bowel Sounds, Soft Musculoskeletal: Yes: WNL Extremities: Yes: WNL Edema: No Neurological: Yes: Alert, Oriented Labs: CBC, BMP 11/21/18 06:23 11/21/18 06:23 Imaging - Results Chest X-ray: Report Reviewed Assessment/Plan AP: T2DM: Episode of asymptomatic hypoglycemia in the morning Acute on Chronic HF with pulmonary edema CAD s/p CABG Renal transplant on immumosuppressants HTN DVT s/p IVC filter; continue apixaban Pt on puree diet since yesterday b/o coughing Swallowing evaluation ongoing BGM QACHS and 3 AM, Snack of 120 Kcal when FS <120 Decrease Levemir to 15 units daily at HS Change Novolog Coverage O2 Diuretics bronchodilators
--- NOTE | 2018-11-21 14:30 | CONSULT ---
Consult Consult Specialty:: Nephrology Reason for Consultation:: kidney transplant - History of Present Illness Chief Complaint: dyspnea History of Present Illness: Pt is a 78 year old male with pmhx of CKD, kidney transplant, CAD, DE, DM, HTN, and CHF who presents with shortness of breath. He was given oxygen and felt better with it. He complains of lower ext edema. He is a poor historian. He denies fevers or chills. He denies chest pain. he denies dysuria or hematuria. 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 coli in past, osteomyelitis of his finger) Endocrine: Yes: Diabetes Mellitus - Past Surgical History Past Surgical History: Yes: AV Fistula/Graft (right upper arm, non working), CABG, Kidney Transplant (right 2008) - Alcohol/Substance Use Hx Alcohol Use: No History of Substance Use: reports: None - Smoking History Smoking history: Never smoked Have you smoked in the past 12 months: No Aproximately how many cigarettes per day: 0 - Social History Usual Living Arrangement: Alone ADL: Support Services History of Recent Travel: No Home Medications - Allergies Allergies/Adverse Reactions: Allergies Allergy/AdvReac Type Severity Reaction Status Date / Time No Known Drug Allergies Allergy Verified 11/17/18 20:05 - Home Medications Home Medications: Ambulatory Orders Acetaminophen [Tylenol .Regular Strength -] 650 mg PO Q4H PRN tablet 11/29/17 Albuterol 2.5/Ipratropium 0.5 [Duoneb -] 1 amp NEB QID 02/08/18 Amlodipine Besylate [Norvasc -] 10 mg PO DAILY #30 tablet 05/19/18 Apixaban [Eliquis] 5 mg PO BID #60 tablet 05/19/18 Atorvastatin Ca [Lipitor] 80 mg PO HS #60 tablet 05/19/18 Duloxetine HCl [Cymbalta] 20 mg PO BID #60 capsule.dr 05/19/18 Tamsulosin HCl [Flomax] 0.4 mg PO HS #30 cap.er.24h 05/19/18 predniSONE [Deltasone -] 20 mg PO DAILY #30 tablet 05/24/18 Carvedilol [Coreg -] 25 mg PO BID #60 tablet 09/14/18 Hydrocortisone [Cortef -] 20 mg PO BID tablet 09/14/18 Insulin (Levemir) [Levemir Vial] 25 units SQ AM units 09/14/18 Insulin (Levemir) [Levemir Vial] 30 units SQ HS units 09/14/18 Insulin Sliding Scale [Novolog Vial Sliding Scale -] 1 vial SQ TIDAC units Mycophenolate Sodium [Mycophenolic Acid] 360 mg PO BID tablet. 09/14/18 Tacrolimus Anhydrous [Prograf] 1 mg PO BID capsule 09/14/18 oxyCODONE HCL [Roxicodone -] 5 mg PO Q6H PRN tablet MDD 4 09/14/18 Cefuroxime Axetil [Cefuroxime] 500 mg PO BID #10 tablet 10/16/18 Family Disease History - Family Disease History Family Disease History: Diabetes: Brother Review of Systems - Review of Systems Constitutional: reports: Malaise. denies: Chills, Fever Eyes: reports: No Symptoms HENT: reports: No Symptoms Cardiovascular: reports: Edema, Shortness of Breath Respiratory: reports: Cough, SOB on Exertion Genitourinary: reports: No Symptoms Musculoskeletal: reports: No Symptoms Integumentary: reports: No Symptoms Neurological: reports: No Symptoms Endocrine: reports: No Symptoms Hematology/Lymphatic: reports: No Symptoms Psychiatric: reports: No Symptoms Physical Exam Vital Signs: Vital Signs Temperature 98.2 F 11/21/18 14:06 Pulse Rate 75 11/21/18 14:06 Respiratory Rate 18 11/21/18 14:06 Blood Pressure 106/50 L 11/21/18 14:06 O2 Sat by Pulse Oximetry (%) 99 11/21/18 09:00 Constitutional: Yes: Calm Eyes: Yes: Conjunctiva Clear HENT: Yes: Atraumatic Cardiovascular: Yes: S1, S2 Respiratory: Yes: On Nasal O2, Rhonchi Gastrointestinal: Yes: Soft Renal/: Yes: Other (graft soft and non tender) Musculoskeletal: Yes: Muscle Weakness Edema: Yes Edema: LLE: 1+, RLE: 1+ Neurological: Yes: Confusion Labs: CBC, BMP 11/21/18 06:23 11/21/18 06:23 Imaging - Results Chest X-ray: Report Reviewed Problem List - Problems (1) Acute on chronic diastolic (congestive) heart failure Code(s): I50.33 - ACUTE ON CHRONIC DIASTOLIC (CONGESTIVE) HEART FAILURE (2) CHF (congestive heart failure) Code(s): I50.9 - HEART FAILURE, UNSPECIFIED Qualifiers: Heart failure type: unspecified Heart failure chronicity: unspecified Qualified Code(s): I50.9 - Heart failure, unspecified Assessment/Plan Current Medications Generic Name Dose Route Start Last Admin Trade Name Freq PRN Reason Stop Dose Admin Albuterol/Ipratropium 1 amp 11/18/18 08:00 11/21/18 11:50 Duoneb - NEB 1 amp RQID [facility] Administration Amlodipine Besylate 10 mg 11/18/18 10:00 11/21/18 10:26 Norvasc - PO 10 mg DAILY [facility] Administration Apixaban 5 mg 11/18/18 10:00 11/21/18 10:25 Eliquis - PO 5 mg BID [facility]GO Administration Atorvastatin Calcium 80 mg 11/18/18 22:00 11/20/18 22:29 Lipitor - PO 80 mg HS [facility]GO Administration Carvedilol 25 mg 11/18/18 10:00 11/21/18 10:24 Coreg - PO 25 mg BID [facility]GO Administration Duloxetine HCl 20 mg 11/18/18 10:00 11/21/18 10:25 Cymbalta - PO 20 mg BID [facility] Administration Furosemide 40 mg 11/19/18 18:00 11/21/18 06:34 Lasix Injection - IVPUSH 40 mg BID@0600,1800 [facility] Administration Insulin Aspart 1 vial 11/21/18 16:30 Novolog Vial Sliding Scale - SQ TIDAC [facility]GO Protocol Insulin Aspart 1 vial 11/21/18 22:00 Novolog Vial Sliding Scale - SQ HS [facility]GO Protocol Insulin Detemir 15 units 11/21/18 22:00 Levemir Vial SQ HS [facility]GO Losartan Potassium 25 mg 11/21/18 10:00 11/21/18 10:24 Cozaar - PO 25 mg DAILY [facility] Administration Mycophenolate Sodium 360 mg 11/18/18 10:00 11/21/18 10:26 Mycophenolic Acid PO 360 mg BID [facility] Administration Prednisone 20 mg 11/21/18 10:00 11/21/18 10:25 Deltasone - PO 20 mg DAILY [facility] Administration Tacrolimus 1 mg 11/18/18 10:00 11/21/18 10:26 Prograf PO 1 mg BID [facility]GO Administration Tamsulosin HCl 0.4 mg 11/18/18 22:00 11/20/18 22:29 Flomax - PO 0.4 mg HS [facility]GO Administration Impression 1. CKD 2. kidney transplant 3. DM 4. hx of syncope 5. HTN 6. hyperlipidemia 7. CHF 8. dyspnea 9. Hx DVT - pt has IVC filter Plan - cont lasix - pt should be on 5 mg of prednisone, not 20 - titrate down prednisone - monitor vitals - monitor renal function closely - monitor blood sugar - will follow - avoid nsaids and nephrotoxins
[2018-11-21] MEDS ORDERED: predniSONE 10 MG TABLET (UD) PO SCH (14:31)
[2018-11-21] MEDS: INSULIN (LEVEMIR) 100 UNITS/ML UNITS SQ SCH (21:55)
[2018-11-21] MEDS: ATORVASTATIN CA 80 MG TABLET (FP) PO SCH (21:56)
[2018-11-21] MEDS: TAMSULOSIN HCL 0.4 MG CAP PO SCH (21:56)
[2018-11-21] MEDS ORDERED: INSULIN (NOVOLOG) ASPART 100 UNITS/ML 10ML VIAL SQ ONE (22:30)
[2018-11-22] MEDS: FUROSEMIDE 40 MG/4 ML INJECTABLE VIAL IVPUSH SCH ×2 (06:35→17:59)
[2018-11-22] MEDS ORDERED: INSULIN (LEVEMIR) 100 UNITS/ML UNITS SQ ONE (06:43)
[2018-11-22] MEDS: INSULIN SLIDING SCALE (NOVOLOG) 1 VIAL SQ SCH ×4 (07:19→22:37)
[2018-11-22] MEDS: ALBUTEROL SO4 2.5/IPRATROPIUM 0.5 INH SOL 3 ML VIAL.NEB. NEB SCH ×4 (07:45→20:30)
--- NOTE | 2018-11-22 09:04 | PN ---
Progress Note, Physician Chief Complaint: AWAKE MORE ALERT TODAY MONITORING BGM - Current Medication List Current Medications: Active Medications Albuterol/Ipratropium (Duoneb -) 1 amp NEB RQID [facility] Last Admin: 11/21/18 20:50 Dose: 1 amp Amlodipine Besylate (Norvasc -) 10 mg PO DAILY [facility] Last Admin: 11/21/18 10:26 Dose: 10 mg Apixaban (Eliquis -) 5 mg PO BID [facility] Last Admin: 11/21/18 21:56 Dose: 5 mg Atorvastatin Calcium (Lipitor -) 80 mg PO HS [facility] Last Admin: 11/21/18 21:56 Dose: 80 mg Carvedilol (Coreg -) 25 mg PO BID [facility] Last Admin: 11/21/18 21:57 Dose: Not Given Duloxetine HCl (Cymbalta -) 20 mg PO BID [facility] Last Admin: 11/21/18 21:56 Dose: 20 mg Furosemide (Lasix Injection -) 40 mg IVPUSH BID@0600,1800 [facility] Last Admin: 11/22/18 06:35 Dose: 40 mg Insulin Aspart (Novolog Vial Sliding Scale -) 1 vial SQ TIDAC [facility]; Protocol Last Admin: 11/22/18 07:19 Dose: 2 units Insulin Aspart (Novolog Vial Sliding Scale -) 1 vial SQ [facility]; Protocol Last Admin: 11/21/18 22:21 Dose: 8 units Insulin Detemir (Levemir Vial) 15 units SQ [facility] Last Admin: 11/21/18 21:55 Dose: 15 units Losartan Potassium (Cozaar -) 25 mg PO DAILY [facility] Last Admin: 11/21/18 10:24 Dose: 25 mg Mycophenolate Sodium (Mycophenolic Acid) 360 mg PO BID [facility] Last Admin: 11/21/18 21:56 Dose: 360 mg Prednisone (Deltasone -) 15 mg PO DAILY [facility] Tacrolimus (Prograf) 1 mg PO BID [facility] Last Admin: 11/21/18 21:56 Dose: 1 mg Tamsulosin HCl (Flomax -) 0.4 mg PO [facility] Last Admin: 11/21/18 21:56 Dose: 0.4 mg - Objective Vital Signs: Vital Signs Temperature 98.5 F 11/22/18 06:00 Pulse Rate 76 11/22/18 06:00 Respiratory Rate 20 11/22/18 06:00 Blood Pressure 112/42 L 11/22/18 06:00 O2 Sat by Pulse Oximetry (%) 99 11/21/18 21:00 Constitutional: Yes: Mild Distress Eyes: Yes: WNL HENT: Yes: WNL Neck: Yes: WNL Cardiovascular: Yes: WNL Respiratory: Yes: Diminished, On Nasal O2 Gastrointestinal: Yes: Abdomen, Obese Genitourinary: Yes: Incontinence Musculoskeletal: Yes: Muscle Weakness Extremities: Yes: Other Edema: Yes Integumentary: Yes: Rash Wound/Incision: Yes: Open to air, Dressing Dry and Intact Neurological: Yes: Confusion, Pre-Existing Deficit ...Motor Strength: LLE, RLE Psychiatric: Yes: Other Labs: CBC, BMP 11/21/18 06:23 11/21/18 06:23 Problem List - Problems (1) Acute on chronic diastolic (congestive) heart failure Code(s): I50.33 - ACUTE ON CHRONIC DIASTOLIC (CONGESTIVE) HEART FAILURE (2) Diabetes Code(s): E11.9 - TYPE 2 DIABETES MELLITUS WITHOUT COMPLICATIONS (3) Myocardial infarct, old Code(s): I25.2 - OLD MYOCARDIAL INFARCTION (4) Renal transplant disorder Code(s): T86.10 - UNSPECIFIED COMPLICATION OF KIDNEY TRANSPLANT (6) Acute metabolic encephalopathy Code(s): G93.41 - METABOLIC ENCEPHALOPATHY (7) Acute type 2 diabetes mellitus with manifestations Code(s): E11.8 - TYPE 2 DIABETES MELLITUS WITH UNSPECIFIED COMPLICATIONS (8) Dysphagia Code(s): R13.10 - DYSPHAGIA, UNSPECIFIED Qualifiers: Dysphagia type: pharyngeal phase Qualified Code(s): R13.13 - Dysphagia, pharyngeal phase Assessment/Plan SWALLOW EVAL AND WORKUP CONTINUED MAY NEED MODIFIED BARIUM SWALLOW STAY ON THICKENED LIQUIDS PT/OOB TO CHAIR WITH ASSIST RENAL EVAL A1C 10% ++ WILL NEED NUTRITION/ENDOCRINOLOGY EVAL TIGHTEN BGM CONTROL SSI/ADA NEBS/02 SUPPORT
[2018-11-22] MEDS ORDERED: PT OWN MED DRAWER 7, Y5N ONE (10:06)
[2018-11-22] MEDS: CARVEDILOL 25 MG TABLET (FP) PO SCH ×2 (10:09→22:36)
[2018-11-22] MEDS: LOSARTAN POTASSIUM 25 MG TABLET PO SCH (10:09)
[2018-11-22] MEDS: DULoxetine HCL 20 MG CAPSULE.DR (FP) PO SCH ×2 (10:11→22:36)
[2018-11-22] MEDS: APIXABAN 5 MG TABLET PO SCH ×2 (10:15→22:36)
[2018-11-22] MEDS: MYCOPHENOLATE SODIUM 360 MG TABLET.DR PO SCH ×2 (10:15→22:36)
[2018-11-22] MEDS: amLODIPine BESYLATE 10 MG TABLET (FP) PO SCH (10:15)
[2018-11-22] MEDS: TACROLIMUS ANHYDROUS 1 MG CAPSULE PO SCH ×2 (10:16→22:36)
--- NOTE | 2018-11-22 10:59 | PN ---
Progress Note (short form) - Note Progress Note: PULMONARY Denies shortness of breath or chest pain. No cough or wheezing. Vital Signs Period Temp Pulse Resp BP Sys/Mendoza Pulse Ox Last 24 Hr 98.1 F-98.5 F 75-79 18-22 106-112/40-50 99 Gen: mildly tachypneic with exertion Heart: RRR Lung: decreased breath sounds at the bases Abd: soft, nontender Ext: no edema CBC, BMP 11/21/18 06:23 11/21/18 06:23 Active Medications Albuterol/Ipratropium (Duoneb -) 1 amp NEB RQID [facility] Last Admin: 11/21/18 20:50 Dose: 1 amp Amlodipine Besylate (Norvasc -) 10 mg PO DAILY [facility] Last Admin: 11/22/18 10:15 Dose: 10 mg Apixaban (Eliquis -) 5 mg PO BID [facility] Last Admin: 11/22/18 10:15 Dose: 5 mg Atorvastatin Calcium (Lipitor -) 80 mg PO HS [facility] Last Admin: 11/21/18 21:56 Dose: 80 mg Carvedilol (Coreg -) 25 mg PO BID [facility] Last Admin: 11/22/18 10:09 Dose: 25 mg Duloxetine HCl (Cymbalta -) 20 mg PO BID [facility] Last Admin: 11/22/18 10:11 Dose: 20 mg Furosemide (Lasix Injection -) 40 mg IVPUSH BID@0600,1800 [facility] Last Admin: 11/22/18 06:35 Dose: 40 mg Insulin Aspart (Novolog Vial Sliding Scale -) 1 vial SQ TIDAC [facility]; Protocol Last Admin: 11/22/18 07:19 Dose: 2 units Insulin Aspart (Novolog Vial Sliding Scale -) 1 vial SQ [facility]; Protocol Last Admin: 11/21/18 22:21 Dose: 8 units Insulin Detemir (Levemir Vial) 15 units SQ [facility] Last Admin: 11/21/18 21:55 Dose: 15 units Losartan Potassium (Cozaar -) 25 mg PO DAILY [facility] Last Admin: 11/22/18 10:09 Dose: 25 mg Mycophenolate Sodium (Mycophenolic Acid) 360 mg PO BID [facility] Last Admin: 11/22/18 10:15 Dose: 360 mg Prednisone (Deltasone -) 15 mg PO DAILY [facility] Last Admin: 11/22/18 10:11 Dose: 15 mg Tacrolimus (Prograf) 1 mg PO BID [facility] Last Admin: 11/22/18 10:16 Dose: 1 mg Tamsulosin HCl (Flomax -) 0.4 mg PO [facility] Last Admin: 11/21/18 21:56 Dose: 0.4 mg A/P Acute on Chronic Diastolic Heart Failure CAD s/p CABG Mitral Regurgitation Pulmonary HTN h/o Renal Transplant HTN h/o DVT - continue lasix - monitor urine output, creatinine - O2 to keep SpO2 >90% - continue anticoagulation
--- NOTE | 2018-11-22 12:52 | PN ---
Progress Note, Physician History of Present Illness: Pt seen and examined at bedside. He is awake and appears comfortable. - Current Medication List Current Medications: Active Medications Albuterol/Ipratropium (Duoneb -) 1 amp NEB RQID [facility] Last Admin: 11/22/18 12:44 Dose: 1 amp Amlodipine Besylate (Norvasc -) 10 mg PO DAILY [facility] Last Admin: 11/22/18 10:15 Dose: 10 mg Apixaban (Eliquis -) 5 mg PO BID [facility] Last Admin: 11/22/18 10:15 Dose: 5 mg Atorvastatin Calcium (Lipitor -) 80 mg PO HS [facility] Last Admin: 11/21/18 21:56 Dose: 80 mg Carvedilol (Coreg -) 25 mg PO BID [facility] Last Admin: 11/22/18 10:09 Dose: 25 mg Duloxetine HCl (Cymbalta -) 20 mg PO BID [facility] Last Admin: 11/22/18 10:11 Dose: 20 mg Furosemide (Lasix Injection -) 40 mg IVPUSH BID@0600,1800 [facility] Last Admin: 11/22/18 06:35 Dose: 40 mg Insulin Aspart (Novolog Vial Sliding Scale -) 1 vial SQ TIDAC [facility]; Protocol Last Admin: 11/22/18 11:35 Dose: 4 units Insulin Aspart (Novolog Vial Sliding Scale -) 1 vial SQ [facility]; Protocol Last Admin: 11/21/18 22:21 Dose: 8 units Insulin Detemir (Levemir Vial) 15 units SQ HS [facility] Last Admin: 11/21/18 21:55 Dose: 15 units Losartan Potassium (Cozaar -) 25 mg PO DAILY [facility] Last Admin: 11/22/18 10:09 Dose: 25 mg Mycophenolate Sodium (Mycophenolic Acid) 360 mg PO BID [facility] Last Admin: 11/22/18 10:15 Dose: 360 mg Prednisone (Deltasone -) 15 mg PO DAILY [facility] Last Admin: 11/22/18 10:11 Dose: 15 mg Tacrolimus (Prograf) 1 mg PO BID [facility] Last Admin: 11/22/18 10:16 Dose: 1 mg Tamsulosin HCl (Flomax -) 0.4 mg PO [facility] Last Admin: 11/21/18 21:56 Dose: 0.4 mg - Objective Vital Signs: Vital Signs Temperature 97.5 F L 11/22/18 08:00 Pulse Rate 81 11/22/18 08:00 Respiratory Rate 20 11/22/18 08:00 Blood Pressure 112/46 L 11/22/18 08:00 O2 Sat by Pulse Oximetry (%) 99 11/22/18 09:00 Constitutional: Yes: Calm Eyes: Yes: Conjunctiva Clear HENT: Yes: Atraumatic Cardiovascular: Yes: S1, S2 Respiratory: Yes: On Nasal O2, Rhonchi Gastrointestinal: Yes: Soft Genitourinary: Yes: Other (graft soft and non tender) Musculoskeletal: Yes: Muscle Weakness Edema: Yes Edema: LLE: 1+, RLE: 1+ Neurological: Yes: Confusion Labs: CBC, BMP 11/21/18 06:23 11/21/18 06:23 Problem List - Problems (1) Acute on chronic diastolic (congestive) heart failure Code(s): I50.33 - ACUTE ON CHRONIC DIASTOLIC (CONGESTIVE) HEART FAILURE (2) CHF (congestive heart failure) Code(s): I50.9 - HEART FAILURE, UNSPECIFIED Qualifiers: Heart failure type: unspecified Heart failure chronicity: unspecified Qualified Code(s): I50.9 - Heart failure, unspecified Assessment/Plan Current Medications Generic Name Dose Route Start Last Admin Trade Name Freq PRN Reason Stop Dose Admin Albuterol/Ipratropium 1 amp 11/18/18 08:00 11/22/18 12:44 Duoneb - NEB 1 amp RQID [facility] Administration Amlodipine Besylate 10 mg 11/18/18 10:00 11/22/18 10:15 Norvasc - PO 10 mg DAILY [facility] Administration Apixaban 5 mg 11/18/18 10:00 11/22/18 10:15 Eliquis - PO 5 mg BID [facility] Administration Atorvastatin Calcium 80 mg 11/18/18 22:00 11/21/18 21:56 Lipitor - PO 80 mg HS [facility] Administration Carvedilol 25 mg 11/18/18 10:00 11/22/18 10:09 Coreg - PO 25 mg BID [facility] Administration Duloxetine HCl 20 mg 11/18/18 10:00 11/22/18 10:11 Cymbalta - PO 20 mg BID [facility] Administration Furosemide 40 mg 11/19/18 18:00 11/22/18 06:35 Lasix Injection - IVPUSH 40 mg BID@0600,1800 [facility] Administration Insulin Aspart 1 vial 11/21/18 16:30 11/22/18 11:35 Novolog Vial Sliding Scale - SQ 4 units TIDAC [facility] Administration Protocol Insulin Aspart 1 vial 11/21/18 22:00 11/21/18 22:21 Novolog Vial Sliding Scale - SQ 8 units HS [facility] Administration Protocol Insulin Detemir 15 units 11/21/18 22:00 11/21/18 21:55 Levemir Vial SQ 15 units HS [facility] Administration Losartan Potassium 25 mg 11/21/18 10:00 11/22/18 10:09 Cozaar - PO 25 mg DAILY [facility] Administration Mycophenolate Sodium 360 mg 11/18/18 10:00 11/22/18 10:15 Mycophenolic Acid PO 360 mg BID [facility] Administration Prednisone 15 mg 11/21/18 14:31 11/22/18 10:11 Deltasone - PO 15 mg DAILY [facility] Administration Tacrolimus 1 mg 11/18/18 10:00 11/22/18 10:16 Prograf PO 1 mg BID [facility] Administration Tamsulosin HCl 0.4 mg 11/18/18 22:00 11/21/18 21:56 Flomax - PO 0.4 mg HS [facility] Administration Impression 1. CKD 2. kidney transplant 3. DM 4. hx of syncope 5. HTN 6. hyperlipidemia 7. CHF 8. dyspnea 9. Hx DVT - pt has IVC filter Plan - cont with lasix and monitor renal function - will order repeat prograf level - titrate down steroids - repeat labs in am - cont transplant meds - resp status improving - monitor blood sugar - will follow - avoid nsaids and nephrotoxins
[2018-11-22] MEDS ORDERED: INSULIN (NOVOLOG) ASPART 100 UNITS/ML 10ML VIAL ONE (22:30)
[2018-11-22] MEDS: INSULIN (LEVEMIR) 100 UNITS/ML UNITS SQ SCH (22:36)
[2018-11-22] MEDS: TAMSULOSIN HCL 0.4 MG CAP PO SCH (22:36)
[2018-11-22] MEDS: ATORVASTATIN CA 80 MG TABLET (FP) PO SCH (22:36)
[2018-11-23] MEDS: INSULIN SLIDING SCALE (NOVOLOG) 1 VIAL SQ SCH ×6 (03:31→23:48)
[2018-11-23] MEDS ORDERED: INSULIN (NOVOLOG) ASPART 100 UNITS/ML 10ML VIAL SQ ONE (03:31)
[2018-11-23] MEDS ORDERED: SODIUM CHLORIDE 1,000 ML IV SCH (03:45)
[2018-11-23] MEDS: FUROSEMIDE 40 MG/4 ML INJECTABLE VIAL IVPUSH SCH ×2 (06:28→17:23)
[2018-11-23 07:04] LABS: ANION GAP 7 MMOL/L (8-16); BLOOD UREA NITROGEN 38 mg/dL (7-18); CHLORIDE 102 mmol/L (98-107); CO2 29 mmol/L (21-32); CREATININE 1.2 mg/dL (0.55-1.3); GLUCOSE,RANDOM 234 mg/dL (74-106); POTASSIUM 4.7 mmol/L (3.5-5.1); SODIUM 138 mmol/L (136-145)
[2018-11-23] MEDS: ALBUTEROL SO4 2.5/IPRATROPIUM 0.5 INH SOL 3 ML VIAL.NEB. NEB SCH ×4 (07:40→20:06)
--- NOTE | 2018-11-23 09:46 | PN ---
Progress Note, Physician Chief Complaint: SOB Edema History of Present Illness: Previous notes and events reviewed awake and alert NAD afebrile states feeling better WBC nl, Bld Cultures neg edema improving - Current Medication List Current Medications: Active Medications Albuterol/Ipratropium (Duoneb -) 1 amp NEB RQID [facility] Last Admin: 11/22/18 20:30 Dose: 1 amp Amlodipine Besylate (Norvasc -) 10 mg PO DAILY [facility] Last Admin: 11/22/18 10:15 Dose: 10 mg Apixaban (Eliquis -) 5 mg PO BID [facility] Last Admin: 11/22/18 22:36 Dose: 5 mg Atorvastatin Calcium (Lipitor -) 80 mg PO HS [facility] Last Admin: 11/22/18 22:36 Dose: 80 mg Carvedilol (Coreg -) 25 mg PO BID [facility] Last Admin: 11/22/18 22:36 Dose: 25 mg Duloxetine HCl (Cymbalta -) 20 mg PO BID [facility] Last Admin: 11/22/18 22:36 Dose: 20 mg Furosemide (Lasix Injection -) 40 mg IVPUSH BID@0600,1800 [facility] Last Admin: 11/23/18 06:28 Dose: 40 mg Sodium Chloride (Normal Saline -) 1,000 mls @ 42 mls/hr IV ASDIR [facility] Last Admin: 11/23/18 03:42 Dose: 42 mls/hr Insulin Aspart (Novolog Vial Sliding Scale -) 1 vial SQ TIDAC [facility]; Protocol Last Admin: 11/23/18 06:31 Dose: 4 units Insulin Aspart (Novolog Vial Sliding Scale -) 1 vial SQ [facility]; Protocol Last Admin: 11/22/18 22:37 Dose: 8 units Insulin Detemir (Levemir Vial) 15 units SQ [facility] Last Admin: 11/22/18 22:36 Dose: 15 units Losartan Potassium (Cozaar -) 25 mg PO DAILY [facility] Last Admin: 11/22/18 10:09 Dose: 25 mg Mycophenolate Sodium (Mycophenolic Acid) 360 mg PO BID [facility] Last Admin: 11/22/18 22:36 Dose: 360 mg Prednisone (Deltasone -) 10 mg PO DAILY [facility] Tacrolimus (Prograf) 1 mg PO BID [facility] Last Admin: 11/22/18 22:36 Dose: 1 mg Tamsulosin HCl (Flomax -) 0.4 mg PO [facility] Last Admin: 11/22/18 22:36 Dose: 0.4 mg - Objective Vital Signs: Vital Signs Temperature 98.5 F 11/23/18 06:00 Pulse Rate 77 11/23/18 06:00 Respiratory Rate 20 11/23/18 06:00 Blood Pressure 113/44 L 11/23/18 06:00 O2 Sat by Pulse Oximetry (%) 95 11/22/18 22:30 Constitutional: Yes: No Distress, Calm Eyes: Yes: Conjunctiva Clear Cardiovascular: Yes: Regular Rate and Rhythm Respiratory: Yes: Diminished Gastrointestinal: Yes: WNL, Normal Bowel Sounds, Soft Musculoskeletal: Yes: Muscle Weakness Extremities: Yes: WNL Edema: Yes Edema: LLE: 1+ Integumentary: Yes: WNL Neurological: Yes: Alert, Oriented Psychiatric: Yes: Alert, Oriented Labs: CBC, BMP 11/21/18 06:23 11/23/18 05:55 <Shayna Wiggins - Last Filed: 11/23/18 09:40> - Current Medication List Current Medications: Active Medications Albuterol/Ipratropium (Duoneb -) 1 amp NEB RQID [facility] Last Admin: 11/23/18 15:38 Dose: 1 amp Amlodipine Besylate (Norvasc -) 10 mg PO DAILY [facility] Last Admin: 11/23/18 11:21 Dose: 10 mg Apixaban (Eliquis -) 5 mg PO BID [facility] Last Admin: 11/23/18 11:21 Dose: 5 mg Atorvastatin Calcium (Lipitor -) 80 mg PO [facility] Last Admin: 11/22/18 22:36 Dose: 80 mg Carvedilol (Coreg -) 25 mg PO BID [facility] Last Admin: 11/23/18 11:21 Dose: 25 mg Duloxetine HCl (Cymbalta -) 20 mg PO BID [facility] Last Admin: 11/23/18 11:22 Dose: 20 mg Furosemide (Lasix Injection -) 40 mg IVPUSH BID@0600,1800 [facility] Last Admin: 11/23/18 06:28 Dose: 40 mg Sodium Chloride (Normal Saline -) 1,000 mls @ 42 mls/hr IV ASDIR [facility] Last Admin: 11/23/18 03:42 Dose: 42 mls/hr Insulin Aspart (Novolog Vial Sliding Scale -) 1 vial SQ [facility]; Protocol Last Admin: 11/23/18 11:25 Dose: 4 units Insulin Aspart (Novolog Vial Sliding Scale -) 1 vial SQ HS [facility]; Protocol Last Admin: 11/22/18 22:37 Dose: 8 units Insulin Detemir (Levemir Vial) 15 units SQ [facility] Last Admin: 11/22/18 22:36 Dose: 15 units Losartan Potassium (Cozaar -) 25 mg PO DAILY [facility] Last Admin: 11/23/18 11:21 Dose: 25 mg Mycophenolate Sodium (Mycophenolic Acid) 360 mg PO BID [facility] Last Admin: 11/23/18 11:22 Dose: 360 mg Prednisone (Deltasone -) 10 mg PO DAILY [facility] Last Admin: 11/23/18 11:21 Dose: 10 mg Tacrolimus (Prograf) 1 mg PO BID [facility] Last Admin: 11/23/18 11:22 Dose: 1 mg Tamsulosin HCl (Flomax -) 0.4 mg PO [facility] Last Admin: 11/22/18 22:36 Dose: 0.4 mg - Objective Vital Signs: Vital Signs Temperature 98.6 F 11/23/18 10:00 Pulse Rate 83 11/23/18 10:00 Respiratory Rate 18 11/23/18 10:00 Blood Pressure 122/84 11/23/18 10:00 O2 Sat by Pulse Oximetry (%) 95 11/22/18 22:30 Labs: CBC, BMP 11/21/18 06:23 11/23/18 05:55 <Cisco Palacios - Last Filed: 11/23/18 16:52> Problem List - Problems (1) CHF (congestive heart failure) Code(s): I50.9 - HEART FAILURE, UNSPECIFIED Qualifiers: Heart failure type: unspecified Heart failure chronicity: unspecified Qualified Code(s): I50.9 - Heart failure, unspecified (2) DM2 (diabetes mellitus, type 2) Code(s): E11.9 - TYPE 2 DIABETES MELLITUS WITHOUT COMPLICATIONS Qualifiers: Diabetes mellitus intermodal dispatcher insulin use: with intermodal dispatcher use (3) MDRO (multiple drug resistant organisms) resistance Code(s): Z16.35 - RESISTANCE TO MULTIPLE ANTIMICROBIAL DRUGS (4) Acute metabolic encephalopathy Code(s): G93.41 - METABOLIC ENCEPHALOPATHY (5) Acute on chronic heart failure Code(s): I50.9 - HEART FAILURE, UNSPECIFIED <Shayna Wiggins - Last Filed: 11/23/18 09:40> - Problems (1) Acute on chronic diastolic (congestive) heart failure Code(s): I50.33 - ACUTE ON CHRONIC DIASTOLIC (CONGESTIVE) HEART FAILURE (2) Diabetes Code(s): E11.9 - TYPE 2 DIABETES MELLITUS WITHOUT COMPLICATIONS (3) Myocardial infarct, old Code(s): I25.2 - OLD MYOCARDIAL INFARCTION (4) Renal transplant disorder Code(s): T86.10 - UNSPECIFIED COMPLICATION OF KIDNEY TRANSPLANT (6) Acute metabolic encephalopathy Code(s): G93.41 - METABOLIC ENCEPHALOPATHY (7) Acute type 2 diabetes mellitus with manifestations Code(s): E11.8 - TYPE 2 DIABETES MELLITUS WITH UNSPECIFIED COMPLICATIONS (8) Dysphagia Code(s): R13.10 - DYSPHAGIA, UNSPECIFIED Qualifiers: Dysphagia type: pharyngeal phase Qualified Code(s): R13.13 - Dysphagia, pharyngeal phase <Cisco Palacios - Last Filed: 11/23/18 16:52> Assessment/Plan -cardio and pulm on board, recommendation appreciated -cont lasix IVP BID -low Na/diabetic diet -repeat echocardiogram when edema subside -hx of IVC filter, cont with apixiban -nephro on board d/t hx of renal transplant, cont immunosuppressant, monitor tacrlomius level -endo consult appreciated -close monitor BGM ACHS, levemir, insulin sliding scale -1L fluid restriction, strict I&O -daily weights -O2 via NC, keep SpO2 >90% -cont with incentive spirometer use -elevate HOB <Shayna Wiggins - Last Filed: 11/23/18 09:40> I HAVE SEEN THE PATIENT AND AGREE WITH THE ABOVE NOTE <Cisco Palacios - Last Filed: 11/23/18 16:52>
--- NOTE | 2018-11-23 10:16 | PN ---
Progress Note (short form) - Note Progress Note: PULMONARY Denies shortness of breath or chest pain. No fevers recorded. Vital Signs Period Temp Pulse Resp BP Sys/Mendoza Pulse Ox Last 24 Hr 97.8 F-98.5 F 77-80 19-20 96-120/42-48 95 Intake & Output 11/20/18 11/21/18 11/22/18 11/23/18 23:59 23:59 23:59 23:59 Intake Total 600 850 980 84 Output Total 400 850 Balance 600 450 130 84 Weight 77.746 kg 77.621 kg 76.113 kg 75.659 kg Gen: less tachypneic with exertion Heart: RRR Lung: decreased breath sounds at the bases Abd: soft, nontender Ext: + edema CBC, BMP 11/21/18 06:23 11/23/18 05:55 Active Medications Albuterol/Ipratropium (Duoneb -) 1 amp NEB RQID [facility] Last Admin: 11/23/18 07:40 Dose: 1 amp Amlodipine Besylate (Norvasc -) 10 mg PO DAILY [facility] Last Admin: 11/22/18 10:15 Dose: 10 mg Apixaban (Eliquis -) 5 mg PO BID [facility] Last Admin: 11/22/18 22:36 Dose: 5 mg Atorvastatin Calcium (Lipitor -) 80 mg PO [facility] Last Admin: 11/22/18 22:36 Dose: 80 mg Carvedilol (Coreg -) 25 mg PO BID [facility] Last Admin: 11/22/18 22:36 Dose: 25 mg Duloxetine HCl (Cymbalta -) 20 mg PO BID [facility] Last Admin: 11/22/18 22:36 Dose: 20 mg Furosemide (Lasix Injection -) 40 mg IVPUSH BID@0600,1800 [facility] Last Admin: 11/23/18 06:28 Dose: 40 mg Sodium Chloride (Normal Saline -) 1,000 mls @ 42 mls/hr IV ASDIR [facility] Last Admin: 11/23/18 03:42 Dose: 42 mls/hr Insulin Aspart (Novolog Vial Sliding Scale -) 1 vial SQ TIDAC [facility]; Protocol Last Admin: 11/23/18 06:31 Dose: 4 units Insulin Aspart (Novolog Vial Sliding Scale -) 1 vial SQ HS [facility]; Protocol Last Admin: 11/22/18 22:37 Dose: 8 units Insulin Detemir (Levemir Vial) 15 units SQ HS [facility] Last Admin: 11/22/18 22:36 Dose: 15 units Losartan Potassium (Cozaar -) 25 mg PO DAILY [facility] Last Admin: 11/22/18 10:09 Dose: 25 mg Mycophenolate Sodium (Mycophenolic Acid) 360 mg PO BID [facility] Last Admin: 11/22/18 22:36 Dose: 360 mg Prednisone (Deltasone -) 10 mg PO DAILY [facility] Tacrolimus (Prograf) 1 mg PO BID [facility] Last Admin: 11/22/18 22:36 Dose: 1 mg Tamsulosin HCl (Flomax -) 0.4 mg PO HS [facility] Last Admin: 11/22/18 22:36 Dose: 0.4 mg A/P Acute on Chronic Diastolic Heart Failure CAD s/p CABG Mitral Regurgitation Pulmonary HTN h/o Renal Transplant HTN h/o DVT - continue lasix - monitor urine output, creatinine - daily weights - O2 to keep SpO2 >90% - continue anticoagulation
[2018-11-23] MEDS: predniSONE 10 MG TABLET (UD) PO SCH (11:21)
[2018-11-23] MEDS: CARVEDILOL 25 MG TABLET (FP) PO SCH ×2 (11:21→23:01)
[2018-11-23] MEDS: LOSARTAN POTASSIUM 25 MG TABLET PO SCH (11:21)
[2018-11-23] MEDS: amLODIPine BESYLATE 10 MG TABLET (FP) PO SCH (11:21)
[2018-11-23] MEDS: APIXABAN 5 MG TABLET PO SCH ×2 (11:21→23:00)
[2018-11-23] MEDS: DULoxetine HCL 20 MG CAPSULE.DR (FP) PO SCH ×2 (11:22→23:01)
[2018-11-23] MEDS: TACROLIMUS ANHYDROUS 1 MG CAPSULE PO SCH ×2 (11:22→23:00)
[2018-11-23] MEDS: MYCOPHENOLATE SODIUM 360 MG TABLET.DR PO SCH ×2 (11:22→23:00)
--- NOTE | 2018-11-23 14:02 | PN ---
Progress Note, Physician History of Present Illness: Pt seen and examined at bedside. He is awake and alert. He complains of cough. - Current Medication List Current Medications: Active Medications Albuterol/Ipratropium (Duoneb -) 1 amp NEB RQID [facility] Last Admin: 11/23/18 07:40 Dose: 1 amp Amlodipine Besylate (Norvasc -) 10 mg PO DAILY [facility] Last Admin: 11/23/18 11:21 Dose: 10 mg Apixaban (Eliquis -) 5 mg PO BID [facility] Last Admin: 11/23/18 11:21 Dose: 5 mg Atorvastatin Calcium (Lipitor -) 80 mg PO HS [facility] Last Admin: 11/22/18 22:36 Dose: 80 mg Carvedilol (Coreg -) 25 mg PO BID [facility] Last Admin: 11/23/18 11:21 Dose: 25 mg Duloxetine HCl (Cymbalta -) 20 mg PO BID [facility] Last Admin: 11/23/18 11:22 Dose: 20 mg Furosemide (Lasix Injection -) 40 mg IVPUSH BID@0600,1800 [facility] Last Admin: 11/23/18 06:28 Dose: 40 mg Sodium Chloride (Normal Saline -) 1,000 mls @ 42 mls/hr IV ASDIR [facility] Last Admin: 11/23/18 03:42 Dose: 42 mls/hr Insulin Aspart (Novolog Vial Sliding Scale -) 1 vial SQ TIDAC [facility]; Protocol Last Admin: 11/23/18 11:25 Dose: 4 units Insulin Aspart (Novolog Vial Sliding Scale -) 1 vial SQ HS [facility]; Protocol Last Admin: 11/22/18 22:37 Dose: 8 units Insulin Detemir (Levemir Vial) 15 units SQ HS [facility] Last Admin: 11/22/18 22:36 Dose: 15 units Losartan Potassium (Cozaar -) 25 mg PO DAILY [facility] Last Admin: 11/23/18 11:21 Dose: 25 mg Mycophenolate Sodium (Mycophenolic Acid) 360 mg PO BID [facility] Last Admin: 11/23/18 11:22 Dose: 360 mg Prednisone (Deltasone -) 10 mg PO DAILY [facility] Last Admin: 11/23/18 11:21 Dose: 10 mg Tacrolimus (Prograf) 1 mg PO BID [facility] Last Admin: 11/23/18 11:22 Dose: 1 mg Tamsulosin HCl (Flomax -) 0.4 mg PO HS [facility] Last Admin: 11/22/18 22:36 Dose: 0.4 mg - Objective Vital Signs: Vital Signs Temperature 98.6 F 11/23/18 10:00 Pulse Rate 83 11/23/18 10:00 Respiratory Rate 18 11/23/18 10:00 Blood Pressure 122/84 11/23/18 10:00 O2 Sat by Pulse Oximetry (%) 95 11/22/18 22:30 Constitutional: Yes: Calm Eyes: Yes: Conjunctiva Clear HENT: Yes: Atraumatic Cardiovascular: Yes: S1, S2 Respiratory: Yes: On Nasal O2 Gastrointestinal: Yes: Soft Genitourinary: Yes: Other (graft soft and non tender) Extremities: Yes: WNL Edema: Yes Edema: LLE: 1+, RLE: 1+ Neurological: Yes: Confusion Labs: CBC, BMP 11/21/18 06:23 11/23/18 05:55 Problem List - Problems (1) Acute on chronic diastolic (congestive) heart failure Code(s): I50.33 - ACUTE ON CHRONIC DIASTOLIC (CONGESTIVE) HEART FAILURE (2) CHF (congestive heart failure) Code(s): I50.9 - HEART FAILURE, UNSPECIFIED Qualifiers: Heart failure type: unspecified Heart failure chronicity: unspecified Qualified Code(s): I50.9 - Heart failure, unspecified Assessment/Plan Current Medications Generic Name Dose Route Start Last Admin Trade Name Freq PRN Reason Stop Dose Admin Albuterol/Ipratropium 1 amp 11/18/18 08:00 11/23/18 07:40 Duoneb - NEB 1 amp RQID [facility] Administration Amlodipine Besylate 10 mg 11/18/18 10:00 11/23/18 11:21 Norvasc - PO 10 mg DAILY [facility] Administration Apixaban 5 mg 11/18/18 10:00 11/23/18 11:21 Eliquis - PO 5 mg BID [facility] Administration Atorvastatin Calcium 80 mg 11/18/18 22:00 11/22/18 22:36 Lipitor - PO 80 mg HS [facility] Administration Carvedilol 25 mg 11/18/18 10:00 11/23/18 11:21 Coreg - PO 25 mg BID [facility] Administration Duloxetine HCl 20 mg 11/18/18 10:00 11/23/18 11:22 Cymbalta - PO 20 mg BID [facility] Administration Furosemide 40 mg 11/19/18 18:00 11/23/18 06:28 Lasix Injection - IVPUSH 40 mg BID@0600,1800 [facility] Administration Sodium Chloride 1,000 mls @ 42 mls/hr 11/23/18 03:45 11/23/18 03:42 Normal Saline - IV 42 mls/hr [facility] Administration Insulin Aspart 1 vial 11/21/18 16:30 11/23/18 11:25 Novolog Vial Sliding Scale - SQ 4 units TIDAC [facility] Administration Protocol Insulin Aspart 1 vial 11/21/18 22:00 11/22/18 22:37 Novolog Vial Sliding Scale - SQ 8 units HS [facility] Administration Protocol Insulin Detemir 15 units 11/21/18 22:00 11/22/18 22:36 Levemir Vial SQ 15 units HS [facility] Administration Losartan Potassium 25 mg 11/21/18 10:00 11/23/18 11:21 Cozaar - PO 25 mg DAILY [facility] Administration Mycophenolate Sodium 360 mg 11/18/18 10:00 11/23/18 11:22 Mycophenolic Acid PO 360 mg BID [facility] Administration Prednisone 10 mg 11/22/18 12:52 11/23/18 11:21 Deltasone - PO 10 mg DAILY [facility] Administration Tacrolimus 1 mg 11/18/18 10:00 11/23/18 11:22 Prograf PO 1 mg BID [facility] Administration Tamsulosin HCl 0.4 mg 11/18/18 22:00 11/22/18 22:36 Flomax - PO 0.4 mg HS [facility] Administration Impression 1. CKD 2. kidney transplant 3. DM 4. hx of syncope 5. HTN 6. hyperlipidemia 7. CHF 8. dyspnea 9. Hx DVT - pt has IVC filter Plan - renal function improving - follow prograf level - taper steroids to 5 mg and keep at 5 mg - repeat labs in am - cont transplant meds - check ua - resp status improving - will follow - avoid nsaids and nephrotoxins
[2018-11-23 21:22] LABS: URINE APPEARANCE CLEAR; URINE BILIRUBIN NEGATIVE (<2.0 mg/dL); URINE COLOR STRAW; URINE GLUCOSE (UA) 3+ (NEGATIVE); URINE KETONE NEGATIVE (NEGATIVE); URINE LEUK ESTERASE 2+ (NEGATIVE); URINE NITRITE NEGATIVE (NEGATIVE); URINE PROTEIN NEGATIVE (NEGATIVE); URINE UROBILINOGEN NEGATIVE mg/dL (0.2-1.0)
[2018-11-23 21:27] LABS: EPI CELLS RARE /HPF (FEW); URINE BACTERIA RARE /hpf (NONE SEEN)
[2018-11-23] MEDS: TAMSULOSIN HCL 0.4 MG CAP PO SCH (23:01)
[2018-11-23] MEDS: ATORVASTATIN CA 80 MG TABLET (FP) PO SCH (23:01)
[2018-11-23] MEDS: INSULIN (LEVEMIR) 100 UNITS/ML UNITS SQ SCH (23:24)
[2018-11-24 00:25] LABS: ACETONE SERUM NEGATIVE (NEGATIVE)
[2018-11-24 00:27] LABS: ANION GAP 7 MMOL/L (8-16); BLOOD UREA NITROGEN 33 mg/dL (7-18); CALCIUM 7.9 mg/dL (8.5-10.1); CHLORIDE 95 mmol/L (98-107); CO2 30 mmol/L (21-32); CREATININE 1.3 mg/dL (0.55-1.3); POTASSIUM 5.3 mmol/L (3.5-5.1); SODIUM 132 mmol/L (136-145)
[2018-11-24 00:29] LABS: GLUCOSE,RANDOM 528 mg/dL (74-106)
[2018-11-24] MEDS ORDERED: SODIUM POLYSTYRENE SULFONATE 15 GM/60 ML BOTTLE PO ONE (02:00)
[2018-11-24] MEDS ORDERED: INSULIN (NOVOLOG) ASPART 100 UNITS/ML 10ML VIAL SQ ONE ×2 (02:58→23:30)
[2018-11-24] MEDS: FUROSEMIDE 40 MG/4 ML INJECTABLE VIAL IVPUSH SCH (07:21)
[2018-11-24] MEDS: INSULIN SLIDING SCALE (NOVOLOG) 1 VIAL SQ SCH ×4 (07:21→21:53)
[2018-11-24 07:59] LABS: HEMATOCRIT 33.1 % (35.4-49); HEMOGLOBIN 11.6 GM/dL (11.7-16.9); MCH 30.5 pg (25.7-33.7); MCHC 34.9 g/dl (32.0-35.9); MEAN CELL VOLUME 87.2 fl (80-96); MEAN PLT VOLUME 7.7 fl (7.5-11.1); PLATELET COUNT 235 K/MM3 (134-434); RDW 16.3 % (11.9-15.9); WHITE BLOOD COUNT 10.9 K/mm3 (4.0-10.0)
[2018-11-24] MEDS: ALBUTEROL SO4 2.5/IPRATROPIUM 0.5 INH SOL 3 ML VIAL.NEB. NEB SCH ×4 (08:31→20:00)
[2018-11-24 08:49] LABS: ALBUMIN 2.8 g/dl (3.4-5.0); ALK PHOS 113 U/L (45-117); ANION GAP 7 MMOL/L (8-16); BILIRUBIN,TOTAL 0.4 mg/dL (0.2-1); BLOOD UREA NITROGEN 29 mg/dL (7-18); CALCIUM 8.4 mg/dL (8.5-10.1); CHLORIDE 100 mmol/L (98-107); CO2 30 mmol/L (21-32); CREATININE 1.1 mg/dL (0.55-1.3); GLUCOSE,RANDOM 174 mg/dL (74-106); POTASSIUM 4.3 mmol/L (3.5-5.1); SGOT/AST 11 U/L (15-37); SGPT/ALT 36 U/L (13-61); SODIUM 137 mmol/L (136-145); TOT PROT 5.5 g/dl (6.4-8.2)
[2018-11-24] MEDS ORDERED: PT OWN MED DRAWER 7, Y5N ONE ×2 (10:27→21:42)
[2018-11-24] MEDS: CARVEDILOL 25 MG TABLET (FP) PO SCH ×2 (10:30→22:04)
[2018-11-24] MEDS: DULoxetine HCL 20 MG CAPSULE.DR (FP) PO SCH ×2 (10:30→21:54)
[2018-11-24] MEDS: LOSARTAN POTASSIUM 25 MG TABLET PO SCH (10:30)
[2018-11-24] MEDS: MYCOPHENOLATE SODIUM 360 MG TABLET.DR PO SCH ×2 (10:31→21:54)
[2018-11-24] MEDS: predniSONE 10 MG TABLET (UD) PO SCH (10:31)
[2018-11-24] MEDS: APIXABAN 5 MG TABLET PO SCH ×2 (10:31→21:54)
[2018-11-24] MEDS: amLODIPine BESYLATE 10 MG TABLET (FP) PO SCH (10:31)
[2018-11-24] MEDS: TACROLIMUS ANHYDROUS 1 MG CAPSULE PO SCH ×2 (10:32→21:54)
--- NOTE | 2018-11-24 12:25 | PN ---
Progress Note (short form) - Note Progress Note: PULMONARY AWAKE/ALERT APPEARS COMFORTABLE Constitutional: Yes: Pallor Eyes: Yes: EOM Intact HENT: Yes: Normocephalic Neck: Yes: Trachea Midline Cardiovascular: Yes: Regular Rate and Rhythm Respiratory: Yes: Diminished, Rales Gastrointestinal: Yes: Soft Edema: LLE: 1+, RLE: 1+ Integumentary: Yes: WNL Neurological: Yes: Weakness Labs: REVIEWED/MBS REVIEWED Imaging - Results Chest X-ray: Report Reviewed, Image Reviewed Problem List - Problems (1) Acute on chronic heart failure Code(s): I50.9 - HEART FAILURE, UNSPECIFIED (2) CHF (congestive heart failure) Code(s): I50.9 - HEART FAILURE, UNSPECIFIED Qualifiers: Heart failure type: unspecified Heart failure chronicity: unspecified Qualified Code(s): I50.9 - Heart failure, unspecified (3) Renal transplant disorder Code(s): T86.10 - UNSPECIFIED COMPLICATION OF KIDNEY TRANSPLANT (4) CHUCK (acute kidney injury) Code(s): N17.9 - ACUTE KIDNEY FAILURE, UNSPECIFIED (5) Acute respiratory failure Code(s): J96.00 - ACUTE RESPIRATORY FAILURE, UNSP W HYPOXIA OR HYPERCAPNIA (6) Acute type 2 diabetes mellitus with manifestations Code(s): E11.8 - TYPE 2 DIABETES MELLITUS WITH UNSPECIFIED COMPLICATIONS (7) Immunocompromised patient Code(s): D84.9 - IMMUNODEFICIENCY, UNSPECIFIED (8) Transplant recipient Code(s): Z94.89 - OTHER TRANSPLANTED ORGAN AND TISSUE STATUS Assessment/Plan Acute on Chronic HF with pulmonary edema CAD s/p CABG Renal transplant on immumosuppressants HTN DVT s/p IVC filter; continue apixaban O2 titration to keep sat >90% Diuresis/glycemic control/anticoagulation/ continue anti-rejection medication influ A/B screen is negative bronchodilators Aspiration precautions Genny WEBSTER MD Problem List - Problems (1) Acute on chronic heart failure Code(s): I50.9 - HEART FAILURE, UNSPECIFIED (2) CHF (congestive heart failure) Code(s): I50.9 - HEART FAILURE, UNSPECIFIED Qualifiers: Heart failure type: unspecified Heart failure chronicity: unspecified Qualified Code(s): I50.9 - Heart failure, unspecified (3) Renal transplant disorder Code(s): T86.10 - UNSPECIFIED COMPLICATION OF KIDNEY TRANSPLANT (4) CHUCK (acute kidney injury) Code(s): N17.9 - ACUTE KIDNEY FAILURE, UNSPECIFIED (5) Acute respiratory failure Code(s): J96.00 - ACUTE RESPIRATORY FAILURE, UNSP W HYPOXIA OR HYPERCAPNIA (6) Acute type 2 diabetes mellitus with manifestations Code(s): E11.8 - TYPE 2 DIABETES MELLITUS WITH UNSPECIFIED COMPLICATIONS (7) Immunocompromised patient Code(s): D84.9 - IMMUNODEFICIENCY, UNSPECIFIED (8) Transplant recipient Code(s): Z94.89 - OTHER TRANSPLANTED ORGAN AND TISSUE STATUS
--- NOTE | 2018-11-24 14:55 | PN ---
Progress Note, Physician History of Present Illness: Pt seen and examined at bedside. He is awake and alert. He denies shortness of breath. - Current Medication List Current Medications: Active Medications Albuterol/Ipratropium (Duoneb -) 1 amp NEB RQID [facility] Last Admin: 11/24/18 12:57 Dose: 1 amp Amlodipine Besylate (Norvasc -) 10 mg PO DAILY [facility] Last Admin: 11/24/18 10:31 Dose: 10 mg Apixaban (Eliquis -) 5 mg PO BID [facility] Last Admin: 11/24/18 10:31 Dose: 5 mg Atorvastatin Calcium (Lipitor -) 80 mg PO HS [facility] Last Admin: 11/23/18 23:01 Dose: 80 mg Carvedilol (Coreg -) 25 mg PO BID [facility] Last Admin: 11/24/18 10:30 Dose: 25 mg Duloxetine HCl (Cymbalta -) 20 mg PO BID [facility] Last Admin: 11/24/18 10:30 Dose: 20 mg Furosemide (Lasix Injection -) 40 mg IVPUSH BID@0600,1800 [facility] Last Admin: 11/24/18 07:21 Dose: 40 mg Sodium Chloride (Normal Saline -) 1,000 mls @ 42 mls/hr IV ASDIR [facility] Last Admin: 11/23/18 03:42 Dose: 42 mls/hr Insulin Aspart (Novolog Vial Sliding Scale -) 1 vial SQ TIDAC [facility]; Protocol Last Admin: 11/24/18 11:57 Dose: 2 units Insulin Aspart (Novolog Vial Sliding Scale -) 1 vial SQ [facility]; Protocol Last Admin: 11/23/18 23:48 Dose: 15 units Insulin Aspart (Novolog Vial) 15 units SQ ONCE ONE Stop: 11/24/18 23:31 Insulin Detemir (Levemir Vial) 15 units SQ [facility] Last Admin: 11/23/18 23:24 Dose: 15 units Losartan Potassium (Cozaar -) 25 mg PO DAILY [facility] Last Admin: 11/24/18 10:30 Dose: 25 mg Mycophenolate Sodium (Mycophenolic Acid) 360 mg PO BID [facility] Last Admin: 11/24/18 10:31 Dose: 360 mg Prednisone (Deltasone -) 10 mg PO DAILY [facility] Last Admin: 11/24/18 10:31 Dose: 10 mg Tacrolimus (Prograf) 1 mg PO BID [facility] Last Admin: 11/24/18 10:32 Dose: 1 mg Tamsulosin HCl (Flomax -) 0.4 mg PO HS [facility] Last Admin: 11/23/18 23:01 Dose: 0.4 mg - Objective Vital Signs: Vital Signs Temperature 98.2 F 11/24/18 08:40 Pulse Rate 89 11/24/18 08:40 Respiratory Rate 20 11/24/18 08:40 Blood Pressure 123/53 L 11/24/18 08:40 O2 Sat by Pulse Oximetry (%) 94 L 11/24/18 09:00 Constitutional: Yes: Calm Eyes: Yes: Conjunctiva Clear Cardiovascular: Yes: S1, S2 Respiratory: Yes: CTA Bilaterally Gastrointestinal: Yes: Soft Genitourinary: Yes: Other (graft soft and non tender) Musculoskeletal: Yes: WNL Edema: Yes Edema: LLE: Trace, RLE: Trace Neurological: Yes: Confusion Labs: CBC, BMP 11/24/18 06:30 11/24/18 06:30 Problem List - Problems (1) Acute on chronic diastolic (congestive) heart failure Code(s): I50.33 - ACUTE ON CHRONIC DIASTOLIC (CONGESTIVE) HEART FAILURE (2) CHF (congestive heart failure) Code(s): I50.9 - HEART FAILURE, UNSPECIFIED Qualifiers: Heart failure type: unspecified Heart failure chronicity: unspecified Qualified Code(s): I50.9 - Heart failure, unspecified Assessment/Plan Current Medications Generic Name Dose Route Start Last Admin Trade Name Montyq PRN Reason Stop Dose Admin Albuterol/Ipratropium 1 amp 11/18/18 08:00 11/24/18 12:57 Duoneb - NEB 1 amp RQID [facility] Administration Amlodipine Besylate 10 mg 11/18/18 10:00 11/24/18 10:31 Norvasc - PO 10 mg DAILY [facility] Administration Apixaban 5 mg 11/18/18 10:00 11/24/18 10:31 Eliquis - PO 5 mg BID [facility] Administration Atorvastatin Calcium 80 mg 11/18/18 22:00 11/23/18 23:01 Lipitor - PO 80 mg HS [facility] Administration Carvedilol 25 mg 11/18/18 10:00 11/24/18 10:30 Coreg - PO 25 mg BID [facility] Administration Duloxetine HCl 20 mg 11/18/18 10:00 11/24/18 10:30 Cymbalta - PO 20 mg BID [facility] Administration Furosemide 40 mg 11/19/18 18:00 11/24/18 07:21 Lasix Injection - IVPUSH 40 mg BID@0600,1800 [facility] Administration Sodium Chloride 1,000 mls @ 42 mls/hr 11/23/18 03:45 11/23/18 03:42 Normal Saline - IV 42 mls/hr [facility] Administration Insulin Aspart 1 vial 11/21/18 16:30 11/24/18 11:57 Novolog Vial Sliding Scale - SQ 2 units TIDAC [facility] Administration Protocol Insulin Aspart 1 vial 11/21/18 22:00 11/23/18 23:48 Novolog Vial Sliding Scale - SQ 15 units HS [facility] Administration Protocol Insulin Aspart 15 units 11/24/18 23:30 Novolog Vial SQ 11/24/18 23:31 ONCE ONE Insulin Detemir 15 units 11/21/18 22:00 11/23/18 23:24 Levemir Vial SQ 15 units HS [facility] Administration Losartan Potassium 25 mg 11/21/18 10:00 11/24/18 10:30 Cozaar - PO 25 mg DAILY [facility] Administration Mycophenolate Sodium 360 mg 11/18/18 10:00 11/24/18 10:31 Mycophenolic Acid PO 360 mg BID [facility] Administration Prednisone 10 mg 11/22/18 12:52 11/24/18 10:31 Deltasone - PO 10 mg DAILY [facility] Administration Tacrolimus 1 mg 11/18/18 10:00 11/24/18 10:32 Prograf PO 1 mg BID [facility] Administration Tamsulosin HCl 0.4 mg 11/18/18 22:00 11/23/18 23:01 Flomax - PO 0.4 mg HS [facility] Administration Impression 1. CKD 2. kidney transplant 3. DM 4. hx of syncope 5. HTN 6. hyperlipidemia 7. CHF 8. dyspnea 9. Hx DVT - pt has IVC filter Plan - change lasix to PO - stop fluids - follow prograf level - prednisone 5 mg - will need better glucose control - will follow - avoid nsaids and nephrotoxins
--- NOTE | 2018-11-24 15:20 | PN ---
Progress Note, [employer] - Note Progress Note: Selected Entries 11/23/18 11/23/18 11/23/18 06:00 10:00 11:06 Breakfast 100% Diet Tolerated Fair Supper Temperature 98.5 F 98.6 F 11/23/18 11/23/18 11/23/18 17:18 19:37 20:44 Breakfast Diet Tolerated Well Supper 100% Temperature 98.6 F 98 F 11/24/18 11/24/18 11/24/18 06:00 08:40 11:50 Breakfast 25% Diet Tolerated Poor Supper Temperature 99.7 F H 98.2 F Laboratory Tests 11/21/18 11/24/18 06:23 06:30 WBC 8.8 10.9 H MBS completed yesterday. Pt tolerating chopped/puree/nectar diet with assistance. Diet upgraded to reg/thin based on results of MBS for dinner. Carefully monitor pulmonary and nutritional status.
--- NOTE | 2018-11-24 15:29 | PN ---
Progress Note, Physician Chief Complaint: SOB Edema History of Present Illness: Previous notes and events reviewed awake and alert NAD elev WBC 10.9, during night glucose >500mg/dL was started on IVF, today on exam latest glucose 107mg/dL patient ill appearing, still remains afebrile s/p modified barium swallow d/t episode of dysphagia - Current Medication List Current Medications: Active Medications Albuterol/Ipratropium (Duoneb -) 1 amp NEB RQID [facility] Last Admin: 11/24/18 12:57 Dose: 1 amp Amlodipine Besylate (Norvasc -) 10 mg PO DAILY [facility] Last Admin: 11/24/18 10:31 Dose: 10 mg Apixaban (Eliquis -) 5 mg PO BID [facility] Last Admin: 11/24/18 10:31 Dose: 5 mg Atorvastatin Calcium (Lipitor -) 80 mg PO HS [facility] Last Admin: 11/23/18 23:01 Dose: 80 mg Carvedilol (Coreg -) 25 mg PO BID [facility] Last Admin: 11/24/18 10:30 Dose: 25 mg Duloxetine HCl (Cymbalta -) 20 mg PO BID [facility] Last Admin: 11/24/18 10:30 Dose: 20 mg Furosemide (Lasix -) 40 mg PO BID@0600,1400 [facility] Insulin Aspart (Novolog Vial Sliding Scale -) 1 vial SQ TIDAC [facility]; Protocol Last Admin: 11/24/18 11:57 Dose: 2 units Insulin Aspart (Novolog Vial Sliding Scale -) 1 vial SQ [facility]; Protocol Last Admin: 11/23/18 23:48 Dose: 15 units Insulin Aspart (Novolog Vial) 15 units SQ ONCE ONE Stop: 11/24/18 23:31 Insulin Detemir (Levemir Vial) 15 units SQ [facility] Last Admin: 11/23/18 23:24 Dose: 15 units Losartan Potassium (Cozaar -) 25 mg PO DAILY [facility] Last Admin: 11/24/18 10:30 Dose: 25 mg Mycophenolate Sodium (Mycophenolic Acid) 360 mg PO BID [facility] Last Admin: 11/24/18 10:31 Dose: 360 mg Prednisone (Deltasone -) 7.5 mg PO DAILY [facility] Tacrolimus (Prograf) 1 mg PO BID [facility] Last Admin: 11/24/18 10:32 Dose: 1 mg Tamsulosin HCl (Flomax -) 0.4 mg PO [facility] Last Admin: 11/23/18 23:01 Dose: 0.4 mg - Objective Vital Signs: Vital Signs Temperature 98.2 F 11/24/18 08:40 Pulse Rate 89 11/24/18 08:40 Respiratory Rate 20 11/24/18 08:40 Blood Pressure 123/53 L 11/24/18 08:40 O2 Sat by Pulse Oximetry (%) 94 L 11/24/18 09:00 Constitutional: Yes: Calm, Mild Distress Eyes: Yes: Conjunctiva Clear Neck: Yes: Supple Cardiovascular: Yes: Regular Rate and Rhythm Respiratory: Yes: Accessory Muscle Use, Rhonchi Gastrointestinal: Yes: Normal Bowel Sounds, Soft Musculoskeletal: Yes: Muscle Weakness Extremities: Yes: Other (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) Edema: Yes Edema: LLE: 1+ Neurological: Yes: Alert, Oriented Psychiatric: Yes: Alert, Oriented Labs: CBC, BMP 11/24/18 06:30 11/24/18 06:30 <Shayna Wiggins - Last Filed: 11/24/18 15:24> - Current Medication List Current Medications: Active Medications Albuterol/Ipratropium (Duoneb -) 1 amp NEB RQID [facility] Last Admin: 11/24/18 16:51 Dose: Not Given Amlodipine Besylate (Norvasc -) 10 mg PO DAILY [facility] Last Admin: 11/24/18 10:31 Dose: 10 mg Apixaban (Eliquis -) 5 mg PO BID [facility] Last Admin: 11/24/18 10:31 Dose: 5 mg Atorvastatin Calcium (Lipitor -) 80 mg PO [facility] Last Admin: 11/23/18 23:01 Dose: 80 mg Carvedilol (Coreg -) 25 mg PO BID [facility] Last Admin: 11/24/18 10:30 Dose: 25 mg Duloxetine HCl (Cymbalta -) 20 mg PO BID [facility] Last Admin: 11/24/18 10:30 Dose: 20 mg Furosemide (Lasix -) 40 mg PO BID@0600,1400 [facility] Insulin Aspart (Novolog Vial Sliding Scale -) [facility] Last Admin: 11/24/18 11:57 Dose: 2 units Insulin Aspart (Novolog Vial Sliding Scale -) 1 vial SQ [facility]; Protocol Last Admin: 11/23/18 23:48 Dose: 15 units Insulin Aspart (Novolog Vial) 15 units SQ ONCE ONE Stop: 11/24/18 23:31 Insulin Detemir (Levemir Vial) 15 units SQ [facility] Last Admin: 11/23/18 23:24 Dose: 15 units Losartan Potassium (Cozaar -) 25 mg PO DAILY [facility] Last Admin: 11/24/18 10:30 Dose: 25 mg Mycophenolate Sodium (Mycophenolic Acid) 360 mg PO BID [facility] Last Admin: 11/24/18 10:31 Dose: 360 mg Prednisone (Deltasone -) 7.5 mg PO DAILY [facility] Tacrolimus (Prograf) 1 mg PO BID [facility] Last Admin: 11/24/18 10:32 Dose: 1 mg Tamsulosin HCl (Flomax -) 0.4 mg PO [facility] Last Admin: 11/23/18 23:01 Dose: 0.4 mg - Objective Vital Signs: Vital Signs Temperature 98.2 F 11/24/18 08:40 Pulse Rate 89 11/24/18 08:40 Respiratory Rate 20 11/24/18 08:40 Blood Pressure 123/53 L 11/24/18 08:40 O2 Sat by Pulse Oximetry (%) 94 L 11/24/18 09:00 Labs: CBC, BMP 11/24/18 06:30 11/24/18 06:30 <Cisco Palacios - Last Filed: 11/24/18 17:33> Problem List - Problems (1) CHF (congestive heart failure) Code(s): I50.9 - HEART FAILURE, UNSPECIFIED Qualifiers: Heart failure type: unspecified Heart failure chronicity: unspecified Qualified Code(s): I50.9 - Heart failure, unspecified (2) DM2 (diabetes mellitus, type 2) Code(s): E11.9 - TYPE 2 DIABETES MELLITUS WITHOUT COMPLICATIONS Qualifiers: Diabetes 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 insulin use: with nursing home use (3) MDRO (multiple drug resistant organisms) resistance Code(s): Z16.35 - RESISTANCE TO MULTIPLE ANTIMICROBIAL DRUGS (4) Acute metabolic encephalopathy Code(s): G93.41 - METABOLIC ENCEPHALOPATHY (5) Acute on chronic heart failure Code(s): I50.9 - HEART FAILURE, UNSPECIFIED <Shayna Wiggins - Last Filed: 11/24/18 15:24> - Problems (1) Acute on chronic diastolic (congestive) heart failure Code(s): I50.33 - ACUTE ON CHRONIC DIASTOLIC (CONGESTIVE) HEART FAILURE (2) Diabetes Code(s): E11.9 - TYPE 2 DIABETES MELLITUS WITHOUT COMPLICATIONS (3) Myocardial infarct, old Code(s): I25.2 - OLD MYOCARDIAL INFARCTION (4) Renal transplant disorder Code(s): T86.10 - UNSPECIFIED COMPLICATION OF KIDNEY TRANSPLANT (6) Acute metabolic encephalopathy Code(s): G93.41 - METABOLIC ENCEPHALOPATHY (7) Acute type 2 diabetes mellitus with manifestations Code(s): E11.8 - TYPE 2 DIABETES MELLITUS WITH UNSPECIFIED COMPLICATIONS (8) Dysphagia Code(s): R13.10 - DYSPHAGIA, UNSPECIFIED Qualifiers: Dysphagia type: pharyngeal phase Qualified Code(s): R13.13 - Dysphagia, pharyngeal phase <Cisco Palacios - Last Filed: 11/24/18 17:33> Assessment/Plan -cardio and pulm on board, recommendation appreciated -cont lasix IVP BID -low Na/diabetic diet -repeat echocardiogram when edema subside -modified barium swallow performed-may resume reg diet -hx of IVC filter, cont with apixiban -nephro on board d/t hx of renal transplant, cont immunosuppressant, monitor tacrlomius level -cont to trend BUN/Cr -endo consult appreciated -close monitor BGM ACHS, levemir, insulin sliding scale -1L fluid restriction, strict I&O -daily weights -O2 via NC, keep SpO2 >90% -cont with incentive spirometer use -elevate HOB -elev WBC 10.9, trend WBC, Blood culture, UA/CS, CXR ordered stat -IVF discontinued <Shayna Wiggins - Last Filed: 11/24/18 15:24> I HAVE SEEN AND EXAMINED THE PATIENT AND I AGREE WITH THE ABOVE NOTE <Cisco Palacios - Last Filed: 11/24/18 17:33>
[2018-11-24 15:56] VITALS: BMI 28.5
[2018-11-24 20:46] LABS: URINE APPEARANCE CLEAR; URINE BILIRUBIN NEGATIVE (<2.0 mg/dL); URINE COLOR STRAW; URINE GLUCOSE (UA) NEGATIVE (NEGATIVE); URINE KETONE NEGATIVE (NEGATIVE); URINE LEUK ESTERASE NEGATIVE (NEGATIVE); URINE NITRITE NEGATIVE (NEGATIVE); URINE PROTEIN NEGATIVE (NEGATIVE); URINE UROBILINOGEN NEGATIVE mg/dL (0.2-1.0)
[2018-11-24] MEDS: INSULIN (LEVEMIR) 100 UNITS/ML UNITS SQ SCH (21:53)
[2018-11-24] MEDS: TAMSULOSIN HCL 0.4 MG CAP PO SCH (21:54)
[2018-11-24] MEDS: ATORVASTATIN CA 80 MG TABLET (FP) PO SCH (21:54)
--- NOTE | 2018-11-24 23:09 | CONSULT ---
Consult Consult Specialty:: endocrine Referred by:: dr.rabadi cordova Reason for Consultation:: diabetes mellitus uncontrolled - History of Present Illness Chief Complaint: feeling weak and unable to sit in bed History of Present Illness: 78 y/o M with PMH renal transplant (on prograf), baseline dementia, CAD, ME, DM , HTN, HLD, CHF, mild , who presented to the ED c/o 2hr hx SOB. admitted with lower extremity edema,dyspnea,weakness,and requiring total care unable to perform adl.worsening dementia, lablile blood sugars,has been diet non complaint in past and recently requirement changed on steroid regiment - Past Medical History VISUAL DESIGN LEAD: No: Alzheimer's Cardio/Vascular: Yes: CAD, CHF, Deep Vein Thrombosis, HTN, ME, Other Renal/: Yes: Renal Inusuff, Other (S/P Kidney tranplant 2008) Infectious Disease: Yes: C-Diff, MRSA, Other (resistant E. coli in past, osteomyelitis of his finger) Endocrine: Yes: Diabetes Mellitus - Past Surgical History Past Surgical History: Yes: AV Fistula/Graft (right upper arm, non working), CABG, Kidney Transplant (right 2009) - Alcohol/Substance Use Hx Alcohol Use: No History of Substance Use: reports: None - Smoking History Smoking history: Never smoked Have you smoked in the past 12 months: No Aproximately how many cigarettes per day: 0 - Social History Usual Living Arrangement: Alone ADL: Support Services History of Recent Travel: No Home Medications - Allergies Allergies/Adverse Reactions: Allergies Allergy/AdvReac Type Severity Reaction Status Date / Time No Known Drug Allergies Allergy Verified 11/17/18 20:05 - Home Medications Home Medications: Ambulatory Orders Acetaminophen [Tylenol .Regular Strength -] 650 mg PO Q4H PRN tablet 11/29/17 Albuterol 2.5/Ipratropium 0.5 [Duoneb -] 1 amp NEB QID 02/08/18 Amlodipine Besylate [Norvasc -] 10 mg PO DAILY #30 tablet 05/19/18 Apixaban [Eliquis] 5 mg PO BID #60 tablet 05/19/18 Atorvastatin Ca [Lipitor] 80 mg PO HS #60 tablet 05/19/18 Duloxetine HCl [Cymbalta] 20 mg PO BID #60 capsule. 05/19/18 Tamsulosin HCl [Flomax] 0.4 mg PO HS #30 cap.er.24h 05/19/18 predniSONE [Deltasone -] 20 mg PO DAILY #30 tablet 05/24/18 Carvedilol [Coreg -] 25 mg PO BID #60 tablet 09/14/18 Hydrocortisone [Cortef -] 20 mg PO BID tablet 09/14/18 Insulin (Levemir) [Levemir Vial] 25 units SQ AM units 09/14/18 Insulin (Levemir) [Levemir Vial] 30 units SQ HS units 09/14/18 Insulin Sliding Scale [Novolog Vial Sliding Scale -] 1 vial SQ TIDAC units Mycophenolate Sodium [Mycophenolic Acid] 360 mg PO BID tablet. 09/14/18 Tacrolimus Anhydrous [Prograf] 1 mg PO BID capsule 09/14/18 oxyCODONE HCL [Roxicodone -] 5 mg PO Q6H PRN tablet MDD 4 09/14/18 Cefuroxime Axetil [Cefuroxime] 500 mg PO BID #10 tablet 10/16/18 Family Disease History - Family Disease History Family Disease History: Diabetes: Brother Review of Systems - Review of Systems Constitutional: reports: Lethargy, Weakness Eyes: reports: No Symptoms HENT: reports: No Symptoms Neck: reports: No Symptoms Cardiovascular: reports: Shortness of Breath Respiratory: reports: Exercise Intolerance, SOB on Exertion Gastrointestinal: reports: Bloating Neurological: reports: Unsteady Gait Physical Exam Vital Signs: Vital Signs Temperature 98.2 F 11/24/18 22:01 Pulse Rate 91 H 11/24/18 22:01 Respiratory Rate 20 11/24/18 22:01 Blood Pressure 122/45 L 11/24/18 22:01 O2 Sat by Pulse Oximetry (%) 94 L 11/24/18 09:00 Constitutional: Yes: Anxious Eyes: Yes: EOM Intact HENT: Yes: Normocephalic Neck: Yes: Trachea Midline Cardiovascular: Yes: Regular Rate and Rhythm Respiratory: Yes: CTA Bilaterally Gastrointestinal: Yes: Normal Bowel Sounds ...Rectal Exam: Yes: Deferred Musculoskeletal: Yes: Joint Swelling, Muscle Pain, Muscle Weakness Edema: LLE: 2+, RLE: 2+ Labs: CBC, BMP 11/24/18 06:30 11/24/18 06:30 Problem List - Problems (1) Acute on chronic diastolic (congestive) heart failure Code(s): I50.33 - ACUTE ON CHRONIC DIASTOLIC (CONGESTIVE) HEART FAILURE (2) Acute on chronic heart failure Code(s): I50.9 - HEART FAILURE, UNSPECIFIED (3) CHF (congestive heart failure) Code(s): I50.9 - HEART FAILURE, UNSPECIFIED Qualifiers: Heart failure type: unspecified Heart failure chronicity: unspecified Qualified Code(s): I50.9 - Heart failure, unspecified (4) DVT (deep venous thrombosis) Code(s): I82.409 - ACUTE EMBOLISM AND THOMBOS UNSP DEEP VN UNSP LOWER EXTREMITY (5) Dehydration Code(s): E86.0 - DEHYDRATION (6) Diabetes Code(s): E11.9 - TYPE 2 DIABETES MELLITUS WITHOUT COMPLICATIONS (7) Myocardial infarct, old Code(s): I25.2 - OLD MYOCARDIAL INFARCTION Assessment/Plan Current Active Problems Acute on chronic diastolic (congestive) heart failure (Acute) Acute on chronic heart failure (Acute) Bifascicular block (Acute) CHF (congestive heart failure) (Acute) DVT (deep venous thrombosis) (Acute) Dehydration (Acute) Diabetes (Acute) Myocardial infarct, old (Acute) Renal transplant disorder (Acute) S/P IVC filter (Acute) Abnormal Lab Results 11/23/18 11/24/18 11/24/18 23:37 06:30 06:30 WBC 10.9 H RBC 3.80 L Hgb 11.6 L Hct 33.1 L RDW 16.3 H Sodium 132 L Potassium 5.3 H Chloride 95 L Anion Gap 7 L 7 L BUN 33 H 29 H Random Glucose 528 H* 174 H Calcium 7.9 L 8.4 L AST 11 L Total Protein 5.5 L Albumin 2.8 L Ur Specific [place] 11/24/18 18:00 WBC RBC Hgb Hct RDW Sodium Potassium Chloride Anion Gap BUN Random Glucose Calcium AST Total Protein Albumin Ur Specific [place] 1.009 L Laboratory Results - last 24 hr 11/23/18 11/23/18 11/23/18 22:39 22:41 23:37 WBC RBC Hgb Hct MCV MCH MCHC RDW Plt Count MPV Sodium Potassium Chloride Carbon Dioxide Anion Gap BUN Creatinine Creat Clearance w eGFR POC Glucometer > 600 593 Random Glucose Calcium Total Bilirubin AST ALT Alkaline Phosphatase Total Protein Albumin Urine Color Urine Appearance Urine pH Ur Specific [place] Urine Protein Urine Glucose (UA) Urine Ketones Urine Blood Urine Nitrite Urine Bilirubin Urine Acetone No Result Required. Urine Urobilinogen Ur Leukocyte Esterase [place], Qual Negative 11/23/18 11/24/18 11/24/18 23:37 02:44 06:30 WBC 10.9 H RBC 3.80 L Hgb 11.6 L Hct 33.1 L MCV 87.2 MCH 30.5 MCHC 34.9 RDW 16.3 H Plt Count 235 D MPV 7.7 Sodium 132 L Potassium 5.3 H Chloride 95 L Carbon Dioxide 30 Anion Gap 7 L BUN 33 H Creatinine 1.3 Creat Clearance w eGFR 53.67 POC Glucometer 458 Random Glucose 528 H* Calcium 7.9 L Total Bilirubin AST ALT Alkaline Phosphatase Total Protein Albumin Urine Color Urine Appearance Urine pH Ur Specific [place] Urine Protein Urine Glucose (UA) Urine Ketones Urine Blood Urine Nitrite Urine Bilirubin Urine Acetone Urine Urobilinogen Ur Leukocyte Esterase Acet[place], Qual 11/24/18 11/24/18 11/24/18 06:30 07:13 11:56 WBC RBC Hgb Hct MCV MCH MCHC RDW Plt Count MPV Sodium 137 Potassium 4.3 Chloride 100 Carbon Dioxide 30 Anion Gap 7 L BUN 29 H Creatinine 1.1 Creat Clearance w eGFR > 60 POC Glucometer 166 142 Random Glucose 174 H Calcium 8.4 L Total Bilirubin 0.4 AST 11 L ALT 36 Alkaline Phosphatase 113 Total Protein 5.5 L Albumin 2.8 L Urine Color Urine Appearance Urine pH Ur Specific [place] Urine Protein Urine Glucose (UA) Urine Ketones Urine Blood Urine Nitrite Urine Bilirubin Urine Acetone Urine Urobilinogen Ur Leukocyte Esterase [place], Qual 11/24/18 11/24/18 11/24/18 16:29 18:00 21:49 WBC RBC Hgb Hct MCV MCH MCHC RDW Plt Count MPV Sodium Potassium Chloride Carbon Dioxide Anion Gap BUN Creatinine Creat Clearance w eGFR POC Glucometer 151 358 Random Glucose Calcium Total Bilirubin AST ALT Alkaline Phosphatase Total Protein Albumin Urine Color Straw Urine Appearance Clear Urine pH 6.0 Ur Specific [place] 1.009 L Urine Protein Negative Urine Glucose (UA) Negative Urine Ketones Negative Urine Blood Negative Urine Nitrite Negative Urine Bilirubin Negative Urine Acetone Urine Urobilinogen Negative Ur Leukocyte Esterase Negative Acetone, Qual Laboratory Tests 09/05/18 09/05/18 09/05/18 09:30 11:18 13:11 Sodium 137 Potassium 4.1 Chloride 108 H Carbon Dioxide 23 Anion Gap 6 L BUN 33 H Creatinine 0.8 Creat Clearance w eGFR POC Glucometer 72.46725 88.44562 Hemoglobin A1c % Calcium 7.8 L Phosphorus 3.2 09/05/18 09/05/18 11/19/18 17:02 21:24 07:30 Sodium Potassium Chloride Carbon Dioxide Anion Gap BUN Creatinine Creat Clearance w eGFR POC Glucometer 140.84949 254.67055 Hemoglobin A1c % 10.8 H Calcium Phosphorus 11/24/18 11/24/18 11/24/18 06:30 07:13 11:56 Sodium 137 Potassium 4.3 Chloride 100 Carbon Dioxide 30 Anion Gap 7 L BUN 29 H Creatinine 1.1 Creat Clearance w eGFR > 60 POC Glucometer 166 142 Hemoglobin A1c % Calcium Phosphorus 11/24/18 11/24/18 16:29 21:49 Sodium Potassium Chloride Carbon Dioxide Anion Gap BUN Creatinine Creat Clearance w eGFR POC Glucometer 151 358 Hemoglobin A1c % Calcium Phosphorus plan levemir 15 units hs bgm tid ac
[2018-11-25] MEDS: FUROSEMIDE 40 MG TABLET (FP) PO SCH ×2 (05:39→14:36)
[2018-11-25] MEDS: INSULIN SLIDING SCALE (NOVOLOG) 1 VIAL SQ SCH ×5 (06:54→22:13)
[2018-11-25 06:55] LABS: BASO % 0.3 % (0-2.0); EOS % 0.8 % (0-4.5); HEMATOCRIT 35.9 % (35.4-49); HEMOGLOBIN 11.3 GM/dL (11.7-16.9); LYMPH % 16.1 % (8-40); MCH 27.7 pg (25.7-33.7); MCHC 31.4 g/dl (32.0-35.9); MEAN CELL VOLUME 88.4 fl (80-96); MEAN PLT VOLUME 7.5 fl (7.5-11.1); MONO % 10.3 % (3.8-10.2); NEUT % 72.5 % (42.8-82.8); PLATELET COUNT 241 K/MM3 (134-434); RBC 4.06 M/mm3 (4.00-5.60); RDW 16.5 % (11.9-15.9); WHITE BLOOD COUNT 11.1 K/mm3 (4.0-10.0)
[2018-11-25] MEDS ORDERED: INSULIN (LEVEMIR) 100 UNITS/ML UNITS SQ ONE (07:03)
[2018-11-25] MEDS: ALBUTEROL SO4 2.5/IPRATROPIUM 0.5 INH SOL 3 ML VIAL.NEB. NEB SCH ×4 (07:45→20:35)
[2018-11-25 07:56] LABS: ALBUMIN 2.6 g/dl (3.4-5.0); ALK PHOS 94 U/L (45-117); ANION GAP 7 MMOL/L (8-16); BILIRUBIN,TOTAL 0.4 mg/dL (0.2-1); BLOOD UREA NITROGEN 27 mg/dL (7-18); CALCIUM 8.2 mg/dL (8.5-10.1); CHLORIDE 99 mmol/L (98-107); CO2 32 mmol/L (21-32); CREATININE 1.2 mg/dL (0.55-1.3); GLUCOSE,RANDOM 186 mg/dL (74-106); POTASSIUM 4.1 mmol/L (3.5-5.1); SGOT/AST 11 U/L (15-37); SGPT/ALT 30 U/L (13-61); SODIUM 138 mmol/L (136-145); TOT PROT 5.2 g/dl (6.4-8.2)
[2018-11-25] MEDS ORDERED: PT OWN MED DRAWER 7, Y5N ONE (10:58)
[2018-11-25] MEDS: CARVEDILOL 25 MG TABLET (FP) PO SCH ×2 (11:10→21:20)
[2018-11-25] MEDS: APIXABAN 5 MG TABLET PO SCH ×2 (11:10→21:20)
[2018-11-25] MEDS: predniSONE 5 MG TABLET (UD) PO SCH (11:10)
--- NOTE | 2018-11-25 11:10 | PN ---
Progress Note (short form) - Note Progress Note: Resting in NAD. No acute events overnight. No shortness of breath or chest pain. No fevers recorded. Intake & Output 11/22/18 11/23/18 11/24/18 11/25/18 23:59 23:59 23:59 23:59 Intake Total 980 860 834 240 Output Total 850 700 250 Balance 130 160 834 -10 Weight 167 lb 12.8 oz 166 lb 12.8 oz 166 lb 8 oz 164 lb 1.6 oz Last Vital Signs Temp Pulse Resp BP Pulse Ox 98.1 F 82 20 120/48 L 94 L 11/25/18 07:43 11/25/18 07:43 11/25/18 07:43 11/25/18 07:43 11/24/18 21:00 Active Medications Albuterol/Ipratropium (Duoneb -) 1 amp NEB RQID [facility] Last Admin: 11/25/18 07:45 Dose: Not Given Amlodipine Besylate (Norvasc -) 10 mg PO DAILY [facility] Last Admin: 11/24/18 10:31 Dose: 10 mg Apixaban (Eliquis -) 5 mg PO BID [facility] Last Admin: 11/24/18 21:54 Dose: 5 mg Atorvastatin Calcium (Lipitor -) 80 mg PO HS [facility] Last Admin: 11/24/18 21:54 Dose: 80 mg Carvedilol (Coreg -) 25 mg PO BID [facility] Last Admin: 11/24/18 22:04 Dose: 25 mg Duloxetine HCl (Cymbalta -) 20 mg PO BID [facility] Last Admin: 11/24/18 21:54 Dose: 20 mg Furosemide (Lasix -) 40 mg PO BID@0600,1400 [facility] Last Admin: 11/25/18 05:39 Dose: 40 mg Insulin Aspart (Novolog Vial Sliding Scale -) 1 vial SQ TIDAC [facility]; Protocol Last Admin: 11/25/18 06:59 Dose: Not Given Insulin Aspart (Novolog Vial Sliding Scale -) 1 vial SQ [facility]; Protocol Insulin Detemir (Levemir Vial) 15 units SQ [facility] Last Admin: 11/24/18 21:53 Dose: 15 units Losartan Potassium (Cozaar -) 25 mg PO DAILY [facility] Last Admin: 11/24/18 10:30 Dose: 25 mg Mycophenolate Sodium (Mycophenolic Acid) 360 mg PO BID [facility] Last Admin: 11/24/18 21:54 Dose: 360 mg Prednisone (Deltasone -) 7.5 mg PO DAILY [facility] Tacrolimus (Prograf) 1 mg PO BID [facility] Last Admin: 11/24/18 21:54 Dose: 1 mg Tamsulosin HCl (Flomax -) 0.4 mg PO HS [facility] Last Admin: 11/24/18 21:54 Dose: 0.4 mg Gen: NAD Heart: RRR Lung: decreased breath sounds at the bases Abd: soft, nontender Ext: + edema Laboratory Results - last 24 hr 11/24/18 11/24/18 11/24/18 11:56 16:29 18:00 WBC RBC Hgb Hct MCV MCH MCHC RDW Plt Count MPV Absolute Neuts (auto) Neutrophils % Lymphocytes % Monocytes % Eosinophils % Basophils % Nucleated RBC % Sodium Potassium Chloride Carbon Dioxide Anion Gap BUN Creatinine Creat Clearance w eGFR POC Glucometer 142 151 Random Glucose Calcium Total Bilirubin AST ALT Alkaline Phosphatase Total Protein Albumin Urine Color Straw Urine Appearance Clear Urine pH 6.0 Ur Specific [place] 1.009 L Urine Protein Negative Urine Glucose (UA) Negative Urine Ketones Negative Urine Blood Negative Urine Nitrite Negative Urine Bilirubin Negative Urine Urobilinogen Negative Ur Leukocyte Esterase Negative 11/24/18 11/24/18 11/25/18 21:49 23:51 02:50 WBC RBC Hgb Hct MCV MCH MCHC RDW Plt Count MPV Absolute Neuts (auto) Neutrophils % Lymphocytes % Monocytes % Eosinophils % Basophils % Nucleated RBC % Sodium Potassium Chloride Carbon Dioxide Anion Gap BUN Creatinine Creat Clearance w eGFR POC Glucometer 358 318 254 Random Glucose Calcium Total Bilirubin AST ALT Alkaline Phosphatase Total Protein Albumin Urine Color Urine Appearance Urine pH Ur Specific [place] Urine Protein Urine Glucose (UA) Urine Ketones Urine Blood Urine Nitrite Urine Bilirubin Urine Urobilinogen Ur Leukocyte Esterase 11/25/18 11/25/18 11/25/18 05:40 06:30 06:30 WBC 11.1 H RBC 4.06 Hgb 11.3 L Hct 35.9 MCV 88.4 MCH 27.7 MCHC 31.4 L RDW 16.5 H Plt Count 241 MPV 7.5 Absolute Neuts (auto) 8.0 Neutrophils % 72.5 Lymphocytes % 16.1 Monocytes % 10.3 H Eosinophils % 0.8 D Basophils % 0.3 Nucleated RBC % 0 Sodium 138 Potassium 4.1 Chloride 99 Carbon Dioxide 32 Anion Gap 7 L BUN 27 H Creatinine 1.2 Creat Clearance w eGFR 58.86 POC Glucometer 202 Random Glucose 186 H Calcium 8.2 L Total Bilirubin 0.4 AST 11 L ALT 30 Alkaline Phosphatase 94 Total Protein 5.2 L Albumin 2.6 L Urine Color Urine Appearance Urine pH Ur Specific [place] Urine Protein Urine Glucose (UA) Urine Ketones Urine Blood Urine Nitrite Urine Bilirubin Urine Urobilinogen Ur Leukocyte Esterase A/P Acute on Chronic Diastolic Heart Failure CAD s/p CABG Mitral Regurgitation Pulmonary HTN h/o Renal Transplant HTN h/o DVT - Lasix - monitor urine output, creatinine - daily weights - O2 to keep SpO2 >90% - continue anticoagulation Dr Melgar
--- NOTE | 2018-11-25 11:10 | PN ---
Progress Note, Physician Chief Complaint: EVENTS AND NOTES REVIEWED IN BED PASSED SWALLOW EVAL DENIES CHEST PAIN OR SOB COUGHING HAS DECREASED - Current Medication List Current Medications: Active Medications Albuterol/Ipratropium (Duoneb -) 1 amp NEB RQID [facility] Last Admin: 11/25/18 07:45 Dose: Not Given Amlodipine Besylate (Norvasc -) 10 mg PO DAILY [facility] Last Admin: 11/24/18 10:31 Dose: 10 mg Apixaban (Eliquis -) 5 mg PO BID [facility] Last Admin: 11/24/18 21:54 Dose: 5 mg Atorvastatin Calcium (Lipitor -) 80 mg PO HS [facility] Last Admin: 11/24/18 21:54 Dose: 80 mg Carvedilol (Coreg -) 25 mg PO BID [facility] Last Admin: 11/24/18 22:04 Dose: 25 mg Duloxetine HCl (Cymbalta -) 20 mg PO BID [facility] Last Admin: 11/24/18 21:54 Dose: 20 mg Furosemide (Lasix -) 40 mg PO BID@0600,1400 [facility] Last Admin: 11/25/18 05:39 Dose: 40 mg Insulin Aspart (Novolog Vial Sliding Scale -) [facility]; Protocol Last Admin: 11/25/18 06:59 Dose: Not Given Insulin Aspart (Novolog Vial Sliding Scale -) 1 vial SQ [facility]; Protocol Insulin Detemir (Levemir Vial) 15 units SQ [facility] Last Admin: 11/24/18 21:53 Dose: 15 units Losartan Potassium (Cozaar -) 25 mg PO DAILY [facility] Last Admin: 11/24/18 10:30 Dose: 25 mg Mycophenolate Sodium (Mycophenolic Acid) 360 mg PO BID [facility] Last Admin: 11/24/18 21:54 Dose: 360 mg Prednisone (Deltasone -) 7.5 mg PO DAILY [facility] Tacrolimus (Prograf) 1 mg PO BID [facility] Last Admin: 11/24/18 21:54 Dose: 1 mg Tamsulosin HCl (Flomax -) 0.4 mg PO [facility] Last Admin: 11/24/18 21:54 Dose: 0.4 mg - Objective Vital Signs: Vital Signs Temperature 98.1 F 11/25/18 07:43 Pulse Rate 82 11/25/18 07:43 Respiratory Rate 20 11/25/18 07:43 Blood Pressure 120/48 L 11/25/18 07:43 O2 Sat by Pulse Oximetry (%) 94 L 11/24/18 21:00 Constitutional: Yes: No Distress Eyes: Yes: WNL HENT: Yes: WNL Neck: Yes: WNL Cardiovascular: Yes: Regular Rate and Rhythm, Murmur Respiratory: Yes: Diminished, Other Gastrointestinal: Yes: Soft Genitourinary: Yes: Incontinence, Other Musculoskeletal: Yes: Muscle Weakness Extremities: Yes: Other Edema: No Integumentary: Yes: Pressure Ulcer, Other (RIGHTINDEX FINGER NECROTIC AREA TO MEDIAL ASPECT TENDER TO TOUCH) Neurological: Yes: Loss of Sensation, Numbness, Paresthesia, Pre-Existing Deficit, Unsteady Gait, Weakness ...Motor Strength: LLE, RLE Psychiatric: Yes: Other Labs: CBC, BMP 11/25/18 06:30 11/25/18 06:30 Problem List - Problems (1) Acute on chronic diastolic (congestive) heart failure Code(s): I50.33 - ACUTE ON CHRONIC DIASTOLIC (CONGESTIVE) HEART FAILURE (2) Diabetes Code(s): E11.9 - TYPE 2 DIABETES MELLITUS WITHOUT COMPLICATIONS Qualifiers: Diabetes mellitus type: type 2 Diabetes mellitus complication detail: with polyneuropathy (3) Myocardial infarct, old Code(s): I25.2 - OLD MYOCARDIAL INFARCTION (4) Renal transplant disorder Code(s): T86.10 - UNSPECIFIED COMPLICATION OF KIDNEY TRANSPLANT (6) Acute metabolic encephalopathy Code(s): G93.41 - METABOLIC ENCEPHALOPATHY (7) Acute type 2 diabetes mellitus with manifestations Code(s): E11.8 - TYPE 2 DIABETES MELLITUS WITH UNSPECIFIED COMPLICATIONS (8) Dysphagia Code(s): R13.10 - DYSPHAGIA, UNSPECIFIED Qualifiers: Dysphagia type: pharyngeal phase Qualified Code(s): R13.13 - Dysphagia, pharyngeal phase (9) Eschar of finger Code(s): R23.4 - CHANGES IN SKIN TEXTURE (10) History of MRSA infection Code(s): Z86.14 - PERSONAL HISTORY OF METHICILLIN RESIS STAPH INFECTION (11) Hyperglycemia Code(s): R73.9 - HYPERGLYCEMIA, UNSPECIFIED (12) Transplant recipient Code(s): Z94.89 - OTHER TRANSPLANTED ORGAN AND TISSUE STATUS (13) Uncontrolled diabetes mellitus Code(s): E11.65 - TYPE 2 DIABETES MELLITUS WITH HYPERGLYCEMIA Qualifiers: Diabetes mellitus type: type 2 (14) Weakness Code(s): R53.1 - WEAKNESS (15) Gait difficulty Code(s): R26.9 - UNSPECIFIED ABNORMALITIES OF GAIT AND MOBILITY (16) H/O kidney transplant Code(s): Z94.0 - KIDNEY TRANSPLANT STATUS (17) HTN (hypertension) Code(s): I10 - ESSENTIAL (PRIMARY) HYPERTENSION Qualifiers: Hypertension type: essential hypertension Qualified Code(s): I10 - Essential (primary) hypertension (18) Hx of CABG Code(s): Z95.1 - PRESENCE OF AORTOCORONARY BYPASS GRAFT (19) Type 2 diabetes mellitus with diabetic neuropathy Code(s): E11.40 - TYPE 2 DIABETES MELLITUS WITH DIABETIC NEUROPATHY, UNSP (20) Type 2 diabetes mellitus with diabetic polyneuropathy Code(s): E11.42 - TYPE 2 DIABETES MELLITUS WITH DIABETIC POLYNEUROPATHY Qualifiers: (21) Type 2 diabetes mellitus with other circulatory complications Code(s): E11.59 - TYPE 2 DIABETES MELLITUS WITH OTH CIRCULATORY COMPLICATIONS Assessment/Plan THIS PATIENT IS WELL KNOWN TO OUR SERVICE WITH A LONG HISTORY OF UNCONTROLLED DM WITH CIRCULATORY, POLYNEUROPATHY, RETINOPATHY, MULTIPLE INFECTIONS FROM SKIN, CELLULITIS, RIGHT INDEX FINGER NECROSIS, ESCHAR, HTN, LIPIDEMIA, S/P CABG, S/P RENAL TRANSPLANT HERE WITH ASPIRATIONS ALTHO\OUGH HE PASSED HIS SWALO MODIFIED BARIUM TEST YESTERDAY, HERE WITH HYPERGLYCEMIA, PNEUMONIA, COUGH AND GENERALIZED WEAKNESS. GOALS OF CARE NEED TO BE D/W FAMILY PATIENT DECOMPENSATES INTO CHF / DYSPNEA ONCE HE GOES HOME. I RECOMMEND TIGHT GLUCOSE CONTROL DIET MODIFICATIONS PER ALEXANDRE BRADEN ENDOCRINE F/U FOR HYPERGLYCEMIA PT EVAL FALL RISKS ARE HIGH WITH UNSTEADY GAIT FROM HIS POLYNEUROPATHY. WILL NEED SNF PLACEMENT OR HOME WITH LONGTERM CARE. NEBS/02 SUPPORT/INCENTIVE SPIROMETRY/DIURESIS CHECK ELECTROLYTES
[2018-11-25] MEDS: LOSARTAN POTASSIUM 25 MG TABLET PO SCH (11:11)
[2018-11-25] MEDS: amLODIPine BESYLATE 10 MG TABLET (FP) PO SCH (11:11)
[2018-11-25] MEDS: MYCOPHENOLATE SODIUM 360 MG TABLET.DR PO SCH ×2 (11:12→21:20)
[2018-11-25] MEDS: TACROLIMUS ANHYDROUS 1 MG CAPSULE PO SCH ×2 (11:12→21:20)
[2018-11-25] MEDS: DULoxetine HCL 20 MG CAPSULE.DR (FP) PO SCH ×2 (11:13→21:20)
--- NOTE | 2018-11-25 13:13 | PN ---
Progress Note (short form) - Note Progress Note: ID Consult dictated Leukocytosis S/P renal transplant Obtain BC Observe off antibiotics
--- NOTE | 2018-11-25 13:48 | CONS ---
DATE OF CONSULTATION: DATE OF DICTATION: 11/25/2018 INFECTIOUS DISEASE CONSULTATION The patient is a 78-year-old male with history of renal transplant on immunosuppressive therapy evaluated for elevated white blood cell count. Patient was admitted to the hospital on November 18, 2018, with worsening shortness of breath and lower extremity edema. He was treated for decompensated congestive heart failure and pulmonary edema. His course has been complicated by white blood cell count 11.1. The patient is awake and alert. He has no focal complaint. He does have a necrotic eschar on his right ring finger which has been present for some time. No reports of purulent drainage. He denies any cough, sputum production, hemoptysis. No complaints of dysuria or hematuria. No complaints of diarrhea. The patient has had several hospital admissions in the recent past. PAST MEDICAL HISTORY: Positive for renal transplant, hypertension, hyperlipidemia, diabetes mellitus, coronary artery disease, congestive heart failure, DVT, history of cardiopulmonary arrest myocardial infarction, history of MRSA bacteremia secondary to an infected right fourth finger ulcer. PAST SURGICAL HISTORY: Status post IVC filter and right upper extremity AV fistula. No known allergies. MEDICATIONS: Include albuterol, Norvasc, Eliquis, Lipitor, Coreg, Cymbalta, Lasix, Levemir, Cozaar, prednisone 7.5 mg, tacrolimus, Flomax. SOCIAL HISTORY: Resides at home. He is a nonsmoker, nondrinker. SYSTEM REVIEW: Neurologic: No loss of consciousness, seizure activity, focal weakness. Cardiac: Negative chest pain or palpitations. Respiratory: As per HPI. Gastrointestinal: Negative vomiting or diarrhea. Genitourinary: Status post renal transplant. LABORATORY DATA: White count 11.1, hematocrit 35.7, platelet count 241. Differential 72 neutrophils, 16 lymphocytes, 10 monocytes. BUN 27, creatinine 1.2. Urinalysis negative. Chest x-ray positive for pulmonary vascular congestion. PHYSICAL EXAMINATION: General: He is chronically ill appearing. He is in no acute distress. Vital Signs: Temperature 98.1, blood pressure 120/48, pulse 82 regular, respirations 20 per minute. Eyes: Sclerae anicteric. Heart: Sounds S1, S2. Lungs: Decreased breath sounds over bases bilaterally. Abdomen: Soft. No tenderness elicited. No mass, rebound, or rigidity. Extremities: Negative for edema. Examination of the right ring finger, there was a dry ulceration with slight surrounding erythema and no purulent drainage. IMPRESSION: 1. Leukocytosis. 2. Status post renal transplant. 3. Congestive heart failure/pulmonary edema. 4. Diabetes mellitus. 5. History of methicillin-resistant Staphylococcus aureus bacteremia. PLAN: Patient has been afebrile with a low level leukocytosis. We will obtain blood cultures x2. Observe off antibiotic therapy. Should he develop fever, worsening leukocytosis, or change in his clinical condition, we will start empiric antibiotics. For now, we will observe off. Thank you for the kind referral. EDGAR GOINS M.D. [id number]
--- NOTE | 2018-11-25 19:46 | PN ---
Progress Note (short form) - Note Progress Note: prograf level pending Problems 1. CKD 2. kidney transplant 3. DM 4. hx of syncope 5. HTN 6. hyperlipidemia 7. CHF 8. dyspnea 9. Hx DVT - pt has IVC filter Current Medications Albuterol/Ipratropium (Duoneb -) 1 amp NEB RQID [facility] Last Admin: 11/25/18 20:35 Dose: 1 amp Amlodipine Besylate (Norvasc -) 10 mg PO DAILY [facility] Last Admin: 11/25/18 11:11 Dose: 10 mg Apixaban (Eliquis -) 5 mg PO BID [facility] Last Admin: 11/25/18 21:20 Dose: 5 mg Atorvastatin Calcium (Lipitor -) 80 mg PO HS [facility] Last Admin: 11/25/18 21:20 Dose: 80 mg Carvedilol (Coreg -) 25 mg PO BID [facility] Last Admin: 11/25/18 21:20 Dose: 25 mg Duloxetine HCl (Cymbalta -) 20 mg PO BID [facility] Last Admin: 11/25/18 21:20 Dose: 20 mg Furosemide (Lasix -) 40 mg PO BID@0600,1400 [facility] Last Admin: 11/25/18 14:36 Dose: 40 mg Insulin Aspart (Novolog Vial Sliding Scale -) 1 vial SQ TIDAC [facility]; Protocol Last Admin: 11/25/18 18:14 Dose: 10 units Insulin Aspart (Novolog Vial Sliding Scale -) 1 vial SQ [facility]; Protocol Last Admin: 11/25/18 22:13 Dose: Not Given Insulin Detemir (Levemir Vial) 15 units SQ [facility] Last Admin: 11/25/18 22:12 Dose: 15 units Losartan Potassium (Cozaar -) 25 mg PO DAILY [facility] Last Admin: 11/25/18 11:11 Dose: 25 mg Mycophenolate Sodium (Mycophenolic Acid) 360 mg PO BID [facility] Last Admin: 11/25/18 21:20 Dose: 360 mg Prednisone (Deltasone -) 7.5 mg PO DAILY [facility] Last Admin: 11/25/18 11:10 Dose: 7.5 mg Tacrolimus (Prograf) 1 mg PO BID [facility] Last Admin: 11/25/18 21:20 Dose: 1 mg Tamsulosin HCl (Flomax -) 0.4 mg PO HS [facility] Last Admin: 11/25/18 21:20 Dose: 0.4 mg Last Vital Signs Temp Pulse Resp BP Pulse Ox 97.9 F 90 20 123/66 94 L 11/25/18 18:22 11/25/18 15:11 11/25/18 18:22 11/25/18 18:22 11/25/18 09:00 alert in nad Lungs clear heart reg Abd soft nontender ext no edema CBC, BMP 11/25/18 06:30 11/25/18 18:00 continue current mgmt
[2018-11-25] MEDS: TAMSULOSIN HCL 0.4 MG CAP PO SCH (21:20)
[2018-11-25] MEDS: ATORVASTATIN CA 80 MG TABLET (FP) PO SCH (21:20)
[2018-11-25] MEDS ORDERED: INSULIN (NOVOLOG) ASPART 100 UNITS/ML 10ML VIAL SQ ONE (21:58)
[2018-11-25] MEDS: INSULIN (LEVEMIR) 100 UNITS/ML UNITS SQ SCH (22:12)
[2018-11-26] MEDS: INSULIN SLIDING SCALE (NOVOLOG) 1 VIAL SQ SCH ×4 (06:16→21:33)
[2018-11-26] MEDS: FUROSEMIDE 40 MG TABLET (FP) PO SCH ×2 (06:16→13:29)
[2018-11-26] MEDS: ALBUTEROL SO4 2.5/IPRATROPIUM 0.5 INH SOL 3 ML VIAL.NEB. NEB SCH ×4 (08:00→20:10)
[2018-11-26] MEDS: predniSONE 5 MG TABLET (UD) PO SCH (11:23)
[2018-11-26] MEDS: amLODIPine BESYLATE 10 MG TABLET (FP) PO SCH (11:23)
[2018-11-26] MEDS: LOSARTAN POTASSIUM 25 MG TABLET PO SCH (11:23)
[2018-11-26] MEDS: TACROLIMUS ANHYDROUS 1 MG CAPSULE PO SCH ×2 (11:25→21:32)
[2018-11-26] MEDS: APIXABAN 5 MG TABLET PO SCH ×2 (11:25→21:30)
[2018-11-26] MEDS: CARVEDILOL 25 MG TABLET (FP) PO SCH ×2 (11:25→21:30)
[2018-11-26] MEDS: MYCOPHENOLATE SODIUM 360 MG TABLET.DR PO SCH ×2 (11:26→21:32)
[2018-11-26] MEDS: DULoxetine HCL 20 MG CAPSULE.DR (FP) PO SCH ×2 (11:26→21:32)
--- NOTE | 2018-11-26 11:28 | PN ---
Progress Note (short form) - Note Progress Note: Resting in NAD. No acute events overnight. No fevers recorded. Intake & Output 11/23/18 11/24/18 11/25/18 11/26/18 23:59 23:59 23:59 23:59 Intake Total 860 834 560 Output Total 700 850 400 Balance 160 834 -290 -400 Weight 166 lb 12.8 oz 166 lb 8 oz 164 lb 1.6 oz 161 lb 3.2 oz Last Vital Signs Temp Pulse Resp BP Pulse Ox 97.6 F 87 20 134/40 L 95 11/26/18 06:00 11/26/18 06:00 11/26/18 06:00 11/26/18 06:00 11/25/18 21:00 Active Medications Albuterol/Ipratropium (Duoneb -) 1 amp NEB RQID [facility] Last Admin: 11/26/18 08:00 Dose: Not Given Amlodipine Besylate (Norvasc -) 10 mg PO DAILY [facility] Last Admin: 11/25/18 11:11 Dose: 10 mg Apixaban (Eliquis -) 5 mg PO BID [facility] Last Admin: 11/25/18 21:20 Dose: 5 mg Atorvastatin Calcium (Lipitor -) 80 mg PO HS [facility] Last Admin: 11/25/18 21:20 Dose: 80 mg Carvedilol (Coreg -) 25 mg PO BID [facility] Last Admin: 11/25/18 21:20 Dose: 25 mg Duloxetine HCl (Cymbalta -) 20 mg PO BID [facility] Last Admin: 11/25/18 21:20 Dose: 20 mg Furosemide (Lasix -) 40 mg PO BID@0600,1400 [facility] Last Admin: 11/26/18 06:16 Dose: 40 mg Insulin Aspart (Novolog Vial Sliding Scale -) 1 vial SQ TIDAC [facility]; Protocol Last Admin: 11/26/18 06:16 Dose: 2 units Insulin Aspart (Novolog Vial Sliding Scale -) 1 vial SQ [facility]; Protocol Last Admin: 11/25/18 22:13 Dose: Not Given Insulin Detemir (Levemir Vial) 15 units SQ [facility] Last Admin: 11/25/18 22:12 Dose: 15 units Losartan Potassium (Cozaar -) 25 mg PO DAILY [facility] Last Admin: 11/25/18 11:11 Dose: 25 mg Mycophenolate Sodium (Mycophenolic Acid) 360 mg PO BID [facility] Last Admin: 11/25/18 21:20 Dose: 360 mg Prednisone (Deltasone -) 7.5 mg PO DAILY [facility] Last Admin: 11/25/18 11:10 Dose: 7.5 mg Tacrolimus (Prograf) 1 mg PO BID [facility] Last Admin: 11/25/18 21:20 Dose: 1 mg Tamsulosin HCl (Flomax -) 0.4 mg PO HS [facility] Last Admin: 11/25/18 21:20 Dose: 0.4 mg Gen: NAD Heart: RRR Lung: decreased breath sounds at the bases Abd: soft, nontender Ext: + edema Laboratory Results - last 24 hr 11/23/18 11/25/18 11/25/18 05:55 11:09 18:00 POC Glucometer 303 Random Glucose 479 H* Tacrolimus 7.3 11/26/18 11/26/18 02:56 06:14 POC Glucometer 218 128 Random Glucose Tacrolimus A/P Acute on Chronic Diastolic Heart Failure CAD s/p CABG Mitral Regurgitation Pulmonary HTN h/o Renal Transplant HTN h/o DVT - Lasix - monitor urine output, creatinine - daily weights - O2 to keep SpO2 >90% - continue anticoagulation - Prednisone 7.5mg OD Dr Melgar
--- NOTE | 2018-11-26 12:11 | PN ---
Progress Note, Physician Chief Complaint: RIGHT 4TH DIGIT PAIN C/O OF SEVERE PAIN AT NIGHT NO FEVERS - Current Medication List Current Medications: Active Medications Albuterol/Ipratropium (Duoneb -) 1 amp NEB RQID [facility] Last Admin: 11/26/18 11:55 Dose: Not Given Amlodipine Besylate (Norvasc -) 10 mg PO DAILY [facility] Last Admin: 11/26/18 11:23 Dose: 10 mg Apixaban (Eliquis -) 5 mg PO BID [facility] Last Admin: 11/26/18 11:25 Dose: 5 mg Atorvastatin Calcium (Lipitor -) 80 mg PO HS [facility] Last Admin: 11/25/18 21:20 Dose: 80 mg Carvedilol (Coreg -) 25 mg PO BID [facility] Last Admin: 11/26/18 11:25 Dose: 25 mg Duloxetine HCl (Cymbalta -) 20 mg PO BID [facility] Last Admin: 11/26/18 11:26 Dose: 20 mg Furosemide (Lasix -) 40 mg PO BID@0600,1400 [facility] Last Admin: 11/26/18 06:16 Dose: 40 mg Insulin Aspart (Novolog Vial Sliding Scale -) 1 vial SQ TIDAC [facility]; Protocol Last Admin: 11/26/18 11:30 Dose: 8 units Insulin Aspart (Novolog Vial Sliding Scale -) 1 vial SQ [facility]; Protocol Last Admin: 11/25/18 22:13 Dose: Not Given Insulin Detemir (Levemir Vial) 15 units SQ [facility] Last Admin: 11/25/18 22:12 Dose: 15 units Losartan Potassium (Cozaar -) 25 mg PO DAILY [facility] Last Admin: 11/26/18 11:23 Dose: 25 mg Mycophenolate Sodium (Mycophenolic Acid) 360 mg PO BID [facility] Last Admin: 11/26/18 11:26 Dose: 360 mg Prednisone (Deltasone -) 7.5 mg PO DAILY [facility] Last Admin: 11/26/18 11:23 Dose: 7.5 mg Tacrolimus (Prograf) 1 mg PO BID [facility] Last Admin: 11/26/18 11:25 Dose: 1 mg Tamsulosin HCl (Flomax -) 0.4 mg PO [facility] Last Admin: 11/25/18 21:20 Dose: 0.4 mg - Objective Vital Signs: Vital Signs Temperature 97.6 F 11/26/18 06:00 Pulse Rate 87 11/26/18 06:00 Respiratory Rate 20 11/26/18 06:00 Blood Pressure 134/40 L 11/26/18 06:00 O2 Sat by Pulse Oximetry (%) 95 11/25/18 21:00 Constitutional: Yes: Mild Distress Cardiovascular: Yes: Regular Rate and Rhythm Respiratory: Yes: Cough, Diminished, On Nasal O2 Gastrointestinal: Yes: Soft Genitourinary: Yes: Incontinence Musculoskeletal: Yes: Joint Swelling, Muscle Weakness Edema: No Wound/Incision: Yes: Open to air (4TH GIGIT RIGHT HAND TENDER DARK ESCHAR WITH TENDERNESS) Neurological: Yes: Dysarthria, Loss of Sensation, Numbness, Paresthesia, Pre- Existing Deficit, Unsteady Gait, Weakness ...Motor Strength: LLE, RUE, RLE Psychiatric: Yes: Other Labs: CBC, BMP 11/25/18 06:30 11/25/18 18:00 Problem List - Problems (1) Acute on chronic diastolic (congestive) heart failure Code(s): I50.33 - ACUTE ON CHRONIC DIASTOLIC (CONGESTIVE) HEART FAILURE (2) Diabetes Code(s): E11.9 - TYPE 2 DIABETES MELLITUS WITHOUT COMPLICATIONS Qualifiers: Diabetes mellitus type: type 2 Diabetes mellitus complication detail: with polyneuropathy (3) Myocardial infarct, old Code(s): I25.2 - OLD MYOCARDIAL INFARCTION (4) Renal transplant disorder Code(s): T86.10 - UNSPECIFIED COMPLICATION OF KIDNEY TRANSPLANT (6) Acute metabolic encephalopathy Code(s): G93.41 - METABOLIC ENCEPHALOPATHY (7) Acute type 2 diabetes mellitus with manifestations Code(s): E11.8 - TYPE 2 DIABETES MELLITUS WITH UNSPECIFIED COMPLICATIONS (8) Dysphagia Code(s): R13.10 - DYSPHAGIA, UNSPECIFIED Qualifiers: Dysphagia type: pharyngeal phase Qualified Code(s): R13.13 - Dysphagia, pharyngeal phase (9) Eschar of finger Code(s): R23.4 - CHANGES IN SKIN TEXTURE (10) History of MRSA infection Code(s): Z86.14 - PERSONAL HISTORY OF METHICILLIN RESIS STAPH INFECTION (11) Hyperglycemia Code(s): R73.9 - HYPERGLYCEMIA, UNSPECIFIED (12) Transplant recipient Code(s): Z94.89 - OTHER TRANSPLANTED ORGAN AND TISSUE STATUS (13) Uncontrolled diabetes mellitus Code(s): E11.65 - TYPE 2 DIABETES MELLITUS WITH HYPERGLYCEMIA Qualifiers: Diabetes mellitus type: type 2 (14) Weakness Code(s): R53.1 - WEAKNESS (15) Gait difficulty Code(s): R26.9 - UNSPECIFIED ABNORMALITIES OF GAIT AND MOBILITY (16) H/O kidney transplant Code(s): Z94.0 - KIDNEY TRANSPLANT STATUS (17) HTN (hypertension) Code(s): I10 - ESSENTIAL (PRIMARY) HYPERTENSION Qualifiers: Hypertension type: essential hypertension Qualified Code(s): I10 - Essential (primary) hypertension (18) Hx of CABG Code(s): Z95.1 - PRESENCE OF AORTOCORONARY BYPASS GRAFT (19) Type 2 diabetes mellitus with diabetic neuropathy Code(s): E11.40 - TYPE 2 DIABETES MELLITUS WITH DIABETIC NEUROPATHY, UNSP (20) Type 2 diabetes mellitus with diabetic polyneuropathy Code(s): E11.42 - TYPE 2 DIABETES MELLITUS WITH DIABETIC POLYNEUROPATHY Qualifiers: (21) Type 2 diabetes mellitus with other circulatory complications Code(s): E11.59 - TYPE 2 DIABETES MELLITUS WITH OTH CIRCULATORY COMPLICATIONS Assessment/Plan THIS PATIENT IS WELL KNOWN TO OUR SERVICE WITH A LONG HISTORY OF UNCONTROLLED DM WITH CIRCULATORY, POLYNEUROPATHY, RETINOPATHY, MULTIPLE INFECTIONS FROM SKIN, CELLULITIS, RIGHT INDEX FINGER NECROSIS, ESCHAR, HTN, LIPIDEMIA, S/P CABG, S/P RENAL TRANSPLANT HERE WITH ASPIRATIONS ALTHO\OUGH HE PASSED HIS SWALO MODIFIED BARIUM TEST YESTERDAY, HERE WITH HYPERGLYCEMIA, PNEUMONIA, COUGH AND GENERALIZED WEAKNESS. GOALS OF CARE NEED TO BE D/W FAMILY PATIENT DECOMPENSATES INTO CHF / DYSPNEA ONCE HE GOES HOME. I RECOMMEND TIGHT GLUCOSE CONTROL DIET MODIFICATIONS PER ALEXANDRE BRADEN ENDOCRINE F/U FOR HYPERGLYCEMIA PT EVAL FALL RISKS ARE HIGH WITH UNSTEADY GAIT FROM HIS POLYNEUROPATHY. WILL NEED SNF PLACEMENT OR HOME WITH LONGTERM CARE. NEBS/02 SUPPORT/INCENTIVE SPIROMETRY/DIURESIS CHECK ELECTROLYTES RIGHT INDEX FINGER NEEDS ORTHOPEDIC CONSULT OLD ESCHAR WITH NECROSIS
--- NOTE | 2018-11-26 13:24 | PN ---
Progress Note, Physician History of Present Illness: Awake, responsive No focal complaint Afebrile BC pending - Current Medication List Current Medications: Active Medications Albuterol/Ipratropium (Duoneb -) 1 amp NEB RQID [facility] Last Admin: 11/26/18 11:55 Dose: Not Given Amlodipine Besylate (Norvasc -) 10 mg PO DAILY [facility] Last Admin: 11/26/18 11:23 Dose: 10 mg Apixaban (Eliquis -) 5 mg PO BID [facility] Last Admin: 11/26/18 11:25 Dose: 5 mg Atorvastatin Calcium (Lipitor -) 80 mg PO HS [facility] Last Admin: 11/25/18 21:20 Dose: 80 mg Carvedilol (Coreg -) 25 mg PO BID [facility] Last Admin: 11/26/18 11:25 Dose: 25 mg Duloxetine HCl (Cymbalta -) 20 mg PO BID [facility] Last Admin: 11/26/18 11:26 Dose: 20 mg Furosemide (Lasix -) 40 mg PO BID@0600,1400 [facility] Last Admin: 11/26/18 06:16 Dose: 40 mg Insulin Aspart (Novolog Vial Sliding Scale -) 1 vial SQ TIDAC [facility]; Protocol Last Admin: 11/26/18 11:30 Dose: 8 units Insulin Aspart (Novolog Vial Sliding Scale -) 1 vial SQ [facility]; Protocol Last Admin: 11/25/18 22:13 Dose: Not Given Insulin Detemir (Levemir Vial) 15 units SQ [facility] Last Admin: 11/25/18 22:12 Dose: 15 units Losartan Potassium (Cozaar -) 25 mg PO DAILY [facility] Last Admin: 11/26/18 11:23 Dose: 25 mg Mycophenolate Sodium (Mycophenolic Acid) 360 mg PO BID [facility] Last Admin: 11/26/18 11:26 Dose: 360 mg Prednisone (Deltasone -) 7.5 mg PO DAILY [facility] Last Admin: 11/26/18 11:23 Dose: 7.5 mg Tacrolimus (Prograf) 1 mg PO BID [facility] Last Admin: 11/26/18 11:25 Dose: 1 mg Tamsulosin HCl (Flomax -) 0.4 mg PO [facility] Last Admin: 11/25/18 21:20 Dose: 0.4 mg - Objective Vital Signs: Vital Signs Temperature 97.6 F 01/06/19 06:00 Pulse Rate 87 11/26/18 06:00 Respiratory Rate 20 11/26/18 06:00 Blood Pressure 134/40 L 11/26/18 06:00 O2 Sat by Pulse Oximetry (%) 95 11/25/18 21:00 Constitutional: Yes: No Distress Eyes: Yes: Conjunctiva Clear Cardiovascular: Yes: Regular Rate and Rhythm, S1, S2 Respiratory: Yes: Other (+rales at bases bilaterally) Gastrointestinal: Yes: Normal Bowel Sounds, Soft. No: Tenderness Extremities: Yes: Other (dry eschar R 4th finger) Labs: CBC, BMP 11/25/18 06:30 11/25/18 18:00 Assessment/Plan Leukocytosis CHF S/P renal transplant Await c/s Repeat CBC Observe off antibiotics
[2018-11-26] MEDS ORDERED: MORPHINE SULFATE 2 MG/ML VIAL IVPUSH PRN (19:02)
[2018-11-26] MEDS ORDERED: PT OWN MED DRAWER 7, Y5N ONE (21:25)
[2018-11-26] MEDS: TAMSULOSIN HCL 0.4 MG CAP PO SCH (21:30)
[2018-11-26] MEDS: ATORVASTATIN CA 80 MG TABLET (FP) PO SCH (21:30)
[2018-11-26] MEDS: INSULIN (LEVEMIR) 100 UNITS/ML UNITS SQ SCH (21:32)
--- NOTE | 2018-11-26 23:22 | PN ---
Progress Note (short form) - Note Progress Note: prograf level pending Problems 1. CKD 2. kidney transplant 3. DM 4. hx of syncope 5. HTN 6. hyperlipidemia 7. CHF 8. dyspnea 9. Hx DVT - pt has IVC filter Current Medications Albuterol/Ipratropium (Duoneb -) 1 amp NEB RQID [facility] Last Admin: 11/26/18 20:10 Dose: 1 amp Amlodipine Besylate (Norvasc -) 10 mg PO DAILY [facility] Last Admin: 11/26/18 11:23 Dose: 10 mg Apixaban (Eliquis -) 5 mg PO BID [facility] Last Admin: 11/26/18 21:30 Dose: 5 mg Atorvastatin Calcium (Lipitor -) 80 mg PO HS [facility] Last Admin: 11/26/18 21:30 Dose: 80 mg Carvedilol (Coreg -) 25 mg PO BID [facility] Last Admin: 11/26/18 21:30 Dose: 25 mg Duloxetine HCl (Cymbalta -) 20 mg PO BID [facility] Last Admin: 11/26/18 21:32 Dose: 20 mg Furosemide (Lasix -) 40 mg PO BID@0600,1400 [facility] Last Admin: 11/26/18 13:29 Dose: 40 mg Insulin Aspart (Novolog Vial Sliding Scale -) 1 vial SQ TIDAC [facility]; Protocol Last Admin: 11/26/18 18:26 Dose: 8 units Insulin Aspart (Novolog Vial Sliding Scale -) 1 vial SQ HS [facility]; Protocol Last Admin: 11/26/18 21:33 Dose: 6 units Insulin Detemir (Levemir Vial) 15 units SQ HS [facility] Last Admin: 11/26/18 21:32 Dose: 15 units Losartan Potassium (Cozaar -) 25 mg PO DAILY [facility] Last Admin: 11/26/18 11:23 Dose: 25 mg Morphine Sulfate (Morphine Sulfate) 2 mg IVPUSH Q6H PRN PRN Reason: PAIN LEVEL 5-10 Mycophenolate Sodium (Mycophenolic Acid) 360 mg PO BID [facility] Last Admin: 11/26/18 21:32 Dose: 360 mg Prednisone (Deltasone -) 7.5 mg PO DAILY [facility] Last Admin: 11/26/18 11:23 Dose: 7.5 mg Tacrolimus (Prograf) 1 mg PO BID [facility] Last Admin: 11/26/18 21:32 Dose: 1 mg Tamsulosin HCl (Flomax -) 0.4 mg PO HS [facility] Last Admin: 11/26/18 21:30 Dose: 0.4 mg Last Vital Signs Temp Pulse Resp BP Pulse Ox 97.8 F 92 H 20 120/79 94 L 11/26/18 21:43 11/26/18 21:43 11/26/18 21:43 11/26/18 21:43 11/26/18 21:00 alert in nad Lungs clear heart reg Abd soft nontender ext no edema CBC, BMP 11/25/18 06:30 11/25/18 18:00 IMP- kidney transplat tacrolimus level 7.3 continue current mgmt
[2018-11-27] MEDS: FUROSEMIDE 40 MG TABLET (FP) PO SCH ×2 (06:24→13:49)
[2018-11-27] MEDS: INSULIN SLIDING SCALE (NOVOLOG) 1 VIAL SQ SCH ×4 (06:25→21:58)
[2018-11-27] MEDS: ALBUTEROL SO4 2.5/IPRATROPIUM 0.5 INH SOL 3 ML VIAL.NEB. NEB SCH ×4 (07:35→20:10)
--- NOTE | 2018-11-27 08:44 | CON.ORTH ---
Consult Reason for Consultation:: right 4th finger pain, necrosis - Past Medical History [employer] WORK[employer]: No: Alzheimer's Cardio/Vascular: Yes: CAD, CHF, Deep Vein Thrombosis, HTN, IA, Other Renal/: Yes: Renal Inusuff, Other (S/P Kidney tranplant 2008) Infectious Disease: Yes: C-Diff, MRSA, Other (resistant E. coli in past, osteomyelitis of his finger) Endocrine: Yes: Diabetes Mellitus - Past Surgical History Past Surgical History: Yes: AV Fistula/Graft (right upper arm, non working), CABG, Kidney Transplant (right 2008) - Alcohol/Substance Use Hx Alcohol Use: No History of Substance Use: reports: None - Smoking History Smoking history: Never smoked Have you smoked in the past 12 months: No Aproximately how many cigarettes per day: 0 - Social History Usual Living Arrangement: Alone ADL: Support Services History of Recent Travel: No Home Medications - Allergies Allergies/Adverse Reactions: Allergies Allergy/AdvReac Type Severity Reaction Status Date / Time No Known Drug Allergies Allergy Verified 11/17/18 20:05 - Home Medications Home Medications: Ambulatory Orders Acetaminophen [Tylenol .Regular Strength -] 650 mg PO Q4H PRN tablet 11/29/17 Albuterol 2.5/Ipratropium 0.5 [Duoneb -] 1 amp NEB QID 02/08/18 Amlodipine Besylate [Norvasc -] 10 mg PO DAILY #30 tablet 05/19/18 Apixaban [Eliquis] 5 mg PO BID #60 tablet 05/19/18 Atorvastatin Ca [Lipitor] 80 mg PO HS #60 tablet 05/19/18 Duloxetine HCl [Cymbalta] 20 mg PO BID #60 capsule.dr 05/19/18 Tamsulosin HCl [Flomax] 0.4 mg PO HS #30 cap.er.24h 05/19/18 predniSONE [Deltasone -] 20 mg PO DAILY #30 tablet 05/24/18 Carvedilol [Coreg -] 25 mg PO BID #60 tablet 09/14/18 Hydrocortisone [Cortef -] 20 mg PO BID tablet 09/14/18 Insulin (Levemir) [Levemir Vial] 25 units SQ AM units 09/14/18 Insulin (Levemir) [Levemir Vial] 30 units SQ HS units 09/14/18 Insulin Sliding Scale [Novolog Vial Sliding Scale -] 1 vial SQ TIDAC units Mycophenolate Sodium [Mycophenolic Acid] 360 mg PO BID tablet. 09/14/18 Tacrolimus Anhydrous [Prograf] 1 mg PO BID capsule 09/14/18 oxyCODONE HCL [Roxicodone -] 5 mg PO Q6H PRN tablet MDD 4 09/14/18 Cefuroxime Axetil [Cefuroxime] 500 mg PO BID #10 tablet 10/16/18 Family Disease History - Family Disease History Family Disease History: Diabetes: Brother Physical Exam for Ortho Vital Signs: Vital Signs Temperature 97.8 F 11/26/18 21:43 Pulse Rate 92 H 11/26/18 21:43 Respiratory Rate 20 11/26/18 21:43 Blood Pressure 120/79 11/26/18 21:43 O2 Sat by Pulse Oximetry (%) 94 L 11/26/18 21:00 Labs: CBC, BMP 11/25/18 06:30 11/25/18 18:00 - Upper Extremity Hand: Yes: Right, Limited ROM, Pain, Tenderness, Other (dry eschar on radial aspect of finger, nvi) Assessment/Plan 78 year old male with a significant past medical history of renal transplant on prograf (2008), CAD, IA, DM, HTN, HLD, CHF, mild aortic stenosis, h/o MRSA bacteremia admitted for shortness of breath. c/o pain and nonhealing wound on right 4th finger for past 3 months. a/p- right 4th finger necrosis Risks and benefits d/w pt in detail No surgical treatment recommended ID for abx if needed tight DM control Pt may need full/partial amputation if condition worsens or does not improve Pt would adamantly refuses any surgical treatment at this time d/w Dr. Bello Re-consult prn
--- NOTE | 2018-11-27 10:10 | PN ---
Progress Note (short form) - Note Progress Note: Resting in NAD. No acute events overnight. No fevers recorded. Intake & Output 11/24/18 11/25/18 11/26/18 11/27/18 23:59 23:59 23:59 23:59 Intake Total 834 560 400 Output Total 850 400 Balance 834 -290 0 Weight 166 lb 8 oz 164 lb 1.6 oz 161 lb 3.2 oz 162 lb 8 oz Last Vital Signs Temp Pulse Resp BP Pulse Ox 97.8 F 92 H 20 120/79 94 L 11/26/18 21:43 11/26/18 21:43 11/26/18 21:43 11/26/18 21:43 11/26/18 21:00 Active Medications Albuterol/Ipratropium (Duoneb -) 1 amp NEB RQID [facility] Last Admin: 11/27/18 07:35 Dose: 1 amp Amlodipine Besylate (Norvasc -) 10 mg PO DAILY [facility] Last Admin: 11/26/18 11:23 Dose: 10 mg Apixaban (Eliquis -) 5 mg PO BID [facility] Last Admin: 11/26/18 21:30 Dose: 5 mg Atorvastatin Calcium (Lipitor -) 80 mg PO HS [facility] Last Admin: 11/26/18 21:30 Dose: 80 mg Carvedilol (Coreg -) 25 mg PO BID [facility] Last Admin: 11/26/18 21:30 Dose: 25 mg Duloxetine HCl (Cymbalta -) 20 mg PO BID [facility] Last Admin: 11/26/18 21:32 Dose: 20 mg Furosemide (Lasix -) 40 mg PO BID@0600,1400 [facility] Last Admin: 11/27/18 06:24 Dose: 40 mg Insulin Aspart (Novolog Vial Sliding Scale -) 1 vial SQ TIDAC [facility]; Protocol Last Admin: 11/27/18 06:25 Dose: 2 units Insulin Aspart (Novolog Vial Sliding Scale -) 1 vial SQ [facility]; Protocol Last Admin: 11/26/18 21:33 Dose: 6 units Insulin Detemir (Levemir Vial) 15 units SQ [facility] Last Admin: 11/26/18 21:32 Dose: 15 units Losartan Potassium (Cozaar -) 25 mg PO DAILY [facility] Last Admin: 11/26/18 11:23 Dose: 25 mg Morphine Sulfate (Morphine Sulfate) 2 mg IVPUSH Q6H PRN PRN Reason: PAIN LEVEL 5-10 Mycophenolate Sodium (Mycophenolic Acid) 360 mg PO BID [facility] Last Admin: 11/26/18 21:32 Dose: 360 mg Prednisone (Deltasone -) 7.5 mg PO DAILY [facility] Last Admin: 11/26/18 11:23 Dose: 7.5 mg Tacrolimus (Prograf) 1 mg PO BID [facility] Last Admin: 11/26/18 21:32 Dose: 1 mg Tamsulosin HCl (Flomax -) 0.4 mg PO HS [facility] Last Admin: 11/26/18 21:30 Dose: 0.4 mg Gen: NAD Heart: RRR Lung: decreased breath sounds at the bases Abd: soft, nontender Ext: + edema Laboratory Results - last 24 hr 11/25/18 11/25/18 11/26/18 16:47 21:13 11:29 POC Glucometer 481 491 308 11/26/18 11/26/18 11/27/18 16:31 21:28 03:06 POC Glucometer 342 358 225 11/27/18 06:24 POC Glucometer 197 A/P Acute on Chronic Diastolic Heart Failure CAD s/p CABG Mitral Regurgitation Pulmonary HTN h/o Renal Transplant HTN h/o DVT - Lasix - monitor urine output, creatinine - daily weights - O2 to keep SpO2 >90% - continue anticoagulation - Prednisone 7.5mg OD Dr Melgar
[2018-11-27] MEDS: amLODIPine BESYLATE 10 MG TABLET (FP) PO SCH (11:03)
[2018-11-27] MEDS: LOSARTAN POTASSIUM 25 MG TABLET PO SCH (11:03)
[2018-11-27] MEDS: predniSONE 5 MG TABLET (UD) PO SCH (11:04)
[2018-11-27] MEDS: CARVEDILOL 25 MG TABLET (FP) PO SCH ×2 (11:04→21:57)
[2018-11-27] MEDS: MYCOPHENOLATE SODIUM 360 MG TABLET.DR PO SCH ×2 (11:06→22:00)
[2018-11-27] MEDS: TACROLIMUS ANHYDROUS 1 MG CAPSULE PO SCH (11:06)
[2018-11-27] MEDS: APIXABAN 5 MG TABLET PO SCH ×2 (11:15→21:56)
[2018-11-27] MEDS: DULoxetine HCL 20 MG CAPSULE.DR (FP) PO SCH ×2 (11:15→22:15)
[2018-11-27 12:07] LABS: ALBUMIN 2.8 g/dl (3.4-5.0); ALK PHOS 94 U/L (45-117); ANION GAP 9 MMOL/L (8-16); BILIRUBIN,TOTAL 0.4 mg/dL (0.2-1); BLOOD UREA NITROGEN 27 mg/dL (7-18); CALCIUM 8.6 mg/dL (8.5-10.1); CHLORIDE 99 mmol/L (98-107); CO2 33 mmol/L (21-32); CREATININE 1.2 mg/dL (0.55-1.3); POTASSIUM 4.1 mmol/L (3.5-5.1); SGOT/AST 13 U/L (15-37); SGPT/ALT 26 U/L (13-61); SODIUM 141 mmol/L (136-145); TOT PROT 5.4 g/dl (6.4-8.2)
--- NOTE | 2018-11-27 12:12 | PN ---
Progress Note, HYPERBARIC TECH - Note Progress Note: Selected Entries 11/25/18 11/25/18 11/25/18 07:43 10:00 15:11 Breakfast Lunch 75% Supper Temperature 98.1 F 98.2 F 98.0 F 11/25/18 11/25/18 11/25/18 18:22 19:16 23:40 Breakfast Lunch Supper 75% Temperature 97.9 F 98.9 F 11/26/18 11/26/18 11/26/18 02:00 06:00 10:00 Breakfast Lunch Supper Temperature 97.6 F 97.6 F 99.1 F 11/26/18 11/26/18 11/26/18 18:25 21:43 21:58 Breakfast Lunch Supper 50% Temperature 99.2 F 97.8 F 11/27/18 10:28 Breakfast 100% Lunch Supper Temperature Laboratory Tests 11/24/18 11/25/18 06:30 06:30 WBC 10.9 H 11.1 H Pt now on reg diet/thin liquids based on recent MBS. Pt continues to be congested. On Prednisone. Per pulmonary-Acute on Chronic Diastolic Heart Failure CAD s/p CABG Mitral Regurgitation Pulmonary HTN h/o Renal Transplant HTN h/o DVT Monitor tolerance.
--- NOTE | 2018-11-27 12:18 | PN ---
Progress Note, Physician Chief Complaint: bgm over 400 12 units of novolg given endocrine on board- - Current Medication List Current Medications: Active Medications Albuterol/Ipratropium (Duoneb -) 1 amp NEB RQID [facility] Last Admin: 11/27/18 11:55 Dose: Not Given Amlodipine Besylate (Norvasc -) 10 mg PO DAILY [facility] Last Admin: 11/27/18 11:03 Dose: 10 mg Apixaban (Eliquis -) 5 mg PO BID [facility] Last Admin: 11/27/18 11:15 Dose: 5 mg Atorvastatin Calcium (Lipitor -) 80 mg PO [facility] Last Admin: 11/26/18 21:30 Dose: 80 mg Carvedilol (Coreg -) 25 mg PO BID [facility] Last Admin: 11/27/18 11:04 Dose: 25 mg Duloxetine HCl (Cymbalta -) 20 mg PO BID [facility] Last Admin: 11/27/18 11:15 Dose: 20 mg Furosemide (Lasix -) 40 mg PO BID@0600,1400 [facility] Last Admin: 11/27/18 06:24 Dose: 40 mg Insulin Aspart (Novolog Vial Sliding Scale -) 1 vial SQ TIDAC [facility]; Protocol Last Admin: 11/27/18 11:55 Dose: 10 units Insulin Aspart (Novolog Vial Sliding Scale -) 1 vial SQ [facility]; Protocol Last Admin: 11/26/18 21:33 Dose: 6 units Insulin Detemir (Levemir Vial) 15 units SQ [facility] Last Admin: 11/26/18 21:32 Dose: 15 units Losartan Potassium (Cozaar -) 25 mg PO DAILY [facility] Last Admin: 11/27/18 11:03 Dose: 25 mg Morphine Sulfate (Morphine Sulfate) 2 mg IVPUSH Q6H PRN PRN Reason: PAIN LEVEL 5-10 Mycophenolate Sodium (Mycophenolic Acid) 360 mg PO BID [facility] Last Admin: 11/27/18 11:06 Dose: 360 mg Prednisone (Deltasone -) 7.5 mg PO DAILY [facility] Last Admin: 11/27/18 11:04 Dose: 7.5 mg Tacrolimus (Prograf) 1 mg PO BID [facility] Last Admin: 11/27/18 11:06 Dose: 1 mg Tamsulosin HCl (Flomax -) 0.4 mg PO [facility] Last Admin: 11/26/18 21:30 Dose: 0.4 mg - Objective Vital Signs: Vital Signs Temperature 97.8 F 11/26/18 21:43 Pulse Rate 92 H 11/26/18 21:43 Respiratory Rate 20 11/26/18 21:43 Blood Pressure 120/79 11/26/18 21:43 O2 Sat by Pulse Oximetry (%) 94 L 11/26/18 21:00 Constitutional: Yes: Calm Cardiovascular: Yes: Regular Rate and Rhythm, S1, S2 Respiratory: Yes: Rhonchi (scATTERED) Gastrointestinal: Yes: Normal Bowel Sounds, Soft Extremities: Yes: Other (right 4th finger eschar) Edema: No Neurological: Yes: Alert Labs: CBC, BMP 11/25/18 06:30 11/27/18 10:52 Problem List - Problems (1) Renal transplant disorder Assessment/Plan: tacrolimus and mycophenalate bun//cr note and low dose prednisone tacrolimus level noted Code(s): T86.10 - UNSPECIFIED COMPLICATION OF KIDNEY TRANSPLANT (2) Diabetes Assessment/Plan: will increase levemir dose to 18 units HS sliding scale Code(s): E11.9 - TYPE 2 DIABETES MELLITUS WITHOUT COMPLICATIONS Qualifiers: Diabetes mellitus type: type 2 Diabetes mellitus complication detail: with polyneuropathy (3) Eschar of finger Assessment/Plan: seen by ortho patient does not want surgery at this time Code(s): R23.4 - CHANGES IN SKIN TEXTURE (4) DVT (deep venous thrombosis) Assessment/Plan: s/p ivc filter on eliquis bid Code(s): I82.409 - ACUTE EMBOLISM AND THOMBOS UNSP DEEP VN UNSP LOWER EXTREMITY (5) Acute on chronic diastolic (congestive) heart failure Assessment/Plan: lasix bid losartan norvasc/ coreg leidy xavier on board s/p MBS- reg diet and thin liquids Code(s): I50.33 - ACUTE ON CHRONIC DIASTOLIC (CONGESTIVE) HEART FAILURE
[2018-11-27] MEDS ORDERED: Insulin (LOG) Aspart 100 UNITS/ML VIAL SQ ONE (12:20)
[2018-11-27 12:27] LABS: GLUCOSE,RANDOM 345 mg/dL (74-106)
--- NOTE | 2018-11-27 13:37 | PN ---
Progress Note, Physician History of Present Illness: The patient is a 78 year old male with a significant past medical history of renal transplant on prograf (2008), CAD, MT, DM, HTN, HLD, CHF, mild aortic stenosis presenting with shortness of breath for the past 2 hours. Patient was given O2 en route to the ED by EMS. Patient's family is also complaining of leg swelling and puffiness in the face. Patient has leg swelling, but has noticed the left leg is more swollen than the right. Patient reports similar symptoms one month ago. Patient denies chest pain, fever, chills, nausea, vomiting, urinary symptoms, or changes in bowel movements. Allergies: NKDA Surgeries: None Social: No reported alcohol, drug or cigarette use - Current Medication List Current Medications: Active Medications Albuterol/Ipratropium (Duoneb -) 1 amp NEB RQID [facility] Last Admin: 11/27/18 11:55 Dose: Not Given Amlodipine Besylate (Norvasc -) 10 mg PO DAILY [facility] Last Admin: 11/27/18 11:03 Dose: 10 mg Apixaban (Eliquis -) 5 mg PO BID [facility] Last Admin: 11/27/18 11:15 Dose: 5 mg Atorvastatin Calcium (Lipitor -) 80 mg PO HS [facility] Last Admin: 11/26/18 21:30 Dose: 80 mg Carvedilol (Coreg -) 25 mg PO BID [facility] Last Admin: 11/27/18 11:04 Dose: 25 mg Duloxetine HCl (Cymbalta -) 20 mg PO BID [facility] Last Admin: 11/27/18 11:15 Dose: 20 mg Furosemide (Lasix -) 40 mg PO BID@0600,1400 [facility] Last Admin: 11/27/18 06:24 Dose: 40 mg Insulin Aspart (Novolog Vial Sliding Scale -) 1 vial SQ TIDAC [facility]; Protocol Last Admin: 11/27/18 11:55 Dose: 10 units Insulin Aspart (Novolog Vial Sliding Scale -) 1 vial SQ [facility]; Protocol Last Admin: 11/26/18 21:33 Dose: 6 units Insulin Detemir (Levemir Vial) 18 units SQ [facility] Losartan Potassium (Cozaar -) 25 mg PO DAILY [facility] Last Admin: 11/27/18 11:03 Dose: 25 mg Morphine Sulfate (Morphine Sulfate) 2 mg IVPUSH Q6H PRN PRN Reason: PAIN LEVEL 5-10 Mycophenolate Sodium (Mycophenolic Acid) 360 mg PO BID [facility] Last Admin: 11/27/18 11:06 Dose: 360 mg Prednisone (Deltasone -) 7.5 mg PO DAILY [facility] Last Admin: 11/27/18 11:04 Dose: 7.5 mg Tacrolimus (Prograf) 1 mg PO BID [facility] Last Admin: 11/27/18 11:06 Dose: 1 mg Tamsulosin HCl (Flomax -) 0.4 mg PO HS [facility] Last Admin: 11/26/18 21:30 Dose: 0.4 mg - Objective Vital Signs: Vital Signs Temperature 97.8 F 11/26/18 21:43 Pulse Rate 92 H 11/26/18 21:43 Respiratory Rate 20 11/26/18 21:43 Blood Pressure 120/79 11/26/18 21:43 O2 Sat by Pulse Oximetry (%) 94 L 11/26/18 21:00 Eyes: Yes: WNL, Conjunctiva Clear, EOM Intact HENT: Yes: WNL, Atraumatic, Normocephalic Neck: Yes: WNL, Supple, Trachea Midline Cardiovascular: Yes: Regular Rate and Rhythm, Murmur, S1, S2 Respiratory: Yes: WNL, Regular, CTA Bilaterally Gastrointestinal: Yes: WNL, Normal Bowel Sounds, Tenderness, Epigastrium Genitourinary: Yes: WNL Musculoskeletal: Yes: WNL Extremities: Yes: WNL Edema: No Integumentary: Yes: WNL Neurological: Yes: WNL, Alert, Oriented ...Motor Strength: WNL Psychiatric: Yes: WNL Labs: CBC, BMP 11/25/18 06:30 Assessment/Plan - Problems (1) Acute on chronic diastolic (congestive) heart failure Assessment/Plan: start losartan (HTN; DM--renal protection; s/p transplant). On furosemide. F/u K: keep 4-4.5 On apixaban: ? hx PAF; no hx known of PE or DVT. F?u BUN/Cr, electrolytes, daily weight, Is and Os. Code(s): I50.33 - ACUTE ON CHRONIC DIASTOLIC (CONGESTIVE) HEART FAILURE (2) Diabetes Code(s): E11.9 - TYPE 2 DIABETES MELLITUS WITHOUT COMPLICATIONS (3) HTN (hypertension) Code(s): I10 - ESSENTIAL (PRIMARY) HYPERTENSION Qualifiers: Hypertension type: essential hypertension Qualified Code(s): I10 - Essential (primary) hypertension (4) Kidney transplant recipient Code(s): Z94.0 - KIDNEY TRANSPLANT STATUS (5) Bifascicular block Code(s): I45.2 - BIFASCICULAR BLOCK (6) Myocardial infarct, old Assessment/Plan: Hx "CABG"; f/u records. On apixaban: hx DVT. (EKG this admission: NSR). Code(s): I25.2 - OLD MYOCARDIAL INFARCTION (7) DVT (deep venous thrombosis) Assessment/Plan: ?Time period when this occurred. s/p IVC filter. On Apixaban; f/u w/u for decision on its continuation. Code(s): I82.409 - ACUTE EMBOLISM AND THOMBOS UNSP DEEP VN UNSP LOWER EXTREMITY
--- NOTE | 2018-11-27 14:30 | PN ---
Progress Note, Physician History of Present Illness: Pt seen and examined at bedside. He is awake and appears comfortable. - Current Medication List Current Medications: Active Medications Albuterol/Ipratropium (Duoneb -) 1 amp NEB RQID [facility] Last Admin: 11/27/18 11:55 Dose: Not Given Amlodipine Besylate (Norvasc -) 10 mg PO DAILY [facility] Last Admin: 11/27/18 11:03 Dose: 10 mg Apixaban (Eliquis -) 5 mg PO BID [facility] Last Admin: 11/27/18 11:15 Dose: 5 mg Atorvastatin Calcium (Lipitor -) 80 mg PO [facility] Last Admin: 11/26/18 21:30 Dose: 80 mg Carvedilol (Coreg -) 25 mg PO BID [facility] Last Admin: 11/27/18 11:04 Dose: 25 mg Duloxetine HCl (Cymbalta -) 20 mg PO BID [facility] Last Admin: 11/27/18 11:15 Dose: 20 mg Furosemide (Lasix -) 40 mg PO BID@0600,1400 [facility] Last Admin: 11/27/18 13:49 Dose: 40 mg Insulin Aspart (Novolog Vial Sliding Scale -) 1 vial SQ TIDAC [facility]; Protocol Last Admin: 11/27/18 11:55 Dose: 10 units Insulin Aspart (Novolog Vial Sliding Scale -) 1 vial SQ [facility]; Protocol Last Admin: 11/26/18 21:33 Dose: 6 units Insulin Detemir (Levemir Vial) 18 units SQ [facility] Losartan Potassium (Cozaar -) 25 mg PO DAILY [facility] Last Admin: 11/27/18 11:03 Dose: 25 mg Morphine Sulfate (Morphine Sulfate) 2 mg IVPUSH Q6H PRN PRN Reason: PAIN LEVEL 5-10 Mycophenolate Sodium (Mycophenolic Acid) 360 mg PO BID [facility] Last Admin: 11/27/18 11:06 Dose: 360 mg Prednisone (Deltasone -) 7.5 mg PO DAILY [facility] Last Admin: 11/27/18 11:04 Dose: 7.5 mg Tacrolimus (Prograf) 1 mg PO BID [facility] Last Admin: 11/27/18 11:06 Dose: 1 mg Tamsulosin HCl (Flomax -) 0.4 mg PO [facility] Last Admin: 11/26/18 21:30 Dose: 0.4 mg - Objective Vital Signs: Vital Signs Temperature 97.8 F 11/26/18 21:43 Pulse Rate 92 H 11/26/18 21:43 Respiratory Rate 20 11/26/18 21:43 Blood Pressure 120/79 11/26/18 21:43 O2 Sat by Pulse Oximetry (%) 94 L 11/26/18 21:00 Constitutional: Yes: Calm Eyes: Yes: Conjunctiva Clear Cardiovascular: Yes: S1, S2 Respiratory: Yes: CTA Bilaterally Gastrointestinal: Yes: Soft Genitourinary: Yes: Other (graft soft and non tender) Edema: No Neurological: Yes: Confusion Labs: CBC, BMP 11/25/18 06:30 11/27/18 12:42 Problem List - Problems (1) Acute on chronic diastolic (congestive) heart failure Code(s): I50.33 - ACUTE ON CHRONIC DIASTOLIC (CONGESTIVE) HEART FAILURE (2) CHF (congestive heart failure) Code(s): I50.9 - HEART FAILURE, UNSPECIFIED Qualifiers: Heart failure type: unspecified Heart failure chronicity: unspecified Qualified Code(s): I50.9 - Heart failure, unspecified Assessment/Plan Current Medications Generic Name Dose Route Start Last Admin Trade Name Freq PRN Reason Stop Dose Admin Albuterol/Ipratropium 1 amp 11/18/18 08:00 11/27/18 11:55 Duoneb - NEB Not Given RQID [facility] Amlodipine Besylate 10 mg 11/18/18 10:00 11/27/18 11:03 Norvasc - PO 10 mg DAILY [facility] Administration Apixaban 5 mg 11/18/18 10:00 11/27/18 11:15 Eliquis - PO 5 mg BID [facility] Administration Atorvastatin Calcium 80 mg 11/18/18 22:00 11/26/18 21:30 Lipitor - PO 80 mg HS [facility] Administration Carvedilol 25 mg 11/18/18 10:00 11/27/18 11:04 Coreg - PO 25 mg BID [facility] Administration Duloxetine HCl 20 mg 11/18/18 10:00 11/27/18 11:15 Cymbalta - PO 20 mg BID [facility] Administration Furosemide 40 mg 11/25/18 06:00 11/27/18 13:49 Lasix - PO 40 mg BID@0600,1400 [facility] Administration Insulin Aspart 1 vial 11/21/18 16:30 11/27/18 11:55 Novolog Vial Sliding Scale - SQ 10 units TIDAC [facility] Administration Protocol Insulin Aspart 1 vial 11/24/18 23:14 11/26/18 21:33 Novolog Vial Sliding Scale - SQ 6 units HS [facility] Administration Protocol Insulin Detemir 18 units 11/27/18 12:33 Levemir Vial SQ HS [facility] Losartan Potassium 25 mg 11/21/18 10:00 11/27/18 11:03 Cozaar - PO 25 mg DAILY [facility] Administration Morphine Sulfate 2 mg 11/26/18 19:02 Morphine Sulfate IVPUSH Q6H PRN PAIN LEVEL 5-10 Mycophenolate Sodium 360 mg 11/18/18 10:00 11/27/18 11:06 Mycophenolic Acid PO 360 mg BID [facility] Administration Prednisone 7.5 mg 11/25/18 10:00 11/27/18 11:04 Deltasone - PO 7.5 mg DAILY [facility] Administration Tacrolimus 1 mg 11/18/18 10:00 11/27/18 11:06 Prograf PO 1 mg BID [facility] Administration Tamsulosin HCl 0.4 mg 11/18/18 22:00 11/26/18 21:30 Flomax - PO 0.4 mg HS [facility] Administration Impression 1. CKD 2. kidney transplant 3. DM 4. hx of syncope 5. HTN 6. hyperlipidemia 7. CHF 8. dyspnea 9. Hx DVT - pt has IVC filter Plan - change lasix to daily - change prograf to 1 mg in am and 0.5 in pm - monitor renal function - prednisone 5 mg daily - will need better glucose control - will follow - avoid nsaids and nephrotoxins
[2018-11-27] MEDS ORDERED: PT OWN MED DRAWER 7, Y5N ONE (21:03)
[2018-11-27] MEDS ORDERED: INSULIN (NOVOLOG) ASPART 100 UNITS/ML 10ML VIAL ONE (21:54)
[2018-11-27] MEDS: ATORVASTATIN CA 80 MG TABLET (FP) PO SCH (21:56)
[2018-11-27] MEDS: INSULIN (LEVEMIR) 100 UNITS/ML UNITS SQ SCH (21:59)
[2018-11-27] MEDS: TAMSULOSIN HCL 0.4 MG CAP PO SCH (21:59)
[2018-11-27] MEDS: TACROLIMUS 0.5 MG CAPSULE PO SCH (22:00)
[2018-11-28] MEDS: INSULIN SLIDING SCALE (NOVOLOG) 1 VIAL SQ SCH ×4 (06:35→23:46)
[2018-11-28 07:20] LABS: BASO % 0.6 % (0-2.0); HEMATOCRIT 36.9 % (35.4-49); HEMOGLOBIN 11.7 GM/dL (11.7-16.9); LYMPH % 17.7 % (8-40); MCH 27.8 pg (25.7-33.7); MCHC 31.8 g/dl (32.0-35.9); MEAN CELL VOLUME 87.5 fl (80-96); MEAN PLT VOLUME 7.7 fl (7.5-11.1); MONO % 7.5 % (3.8-10.2); NEUT % 72.2 % (42.8-82.8); PLATELET COUNT 308 K/MM3 (134-434); RBC 4.22 M/mm3 (4.00-5.60); RDW 16.2 % (11.9-15.9); WHITE BLOOD COUNT 11.8 K/mm3 (4.0-10.0)
[2018-11-28] MEDS: ALBUTEROL SO4 2.5/IPRATROPIUM 0.5 INH SOL 3 ML VIAL.NEB. NEB SCH ×4 (07:24→20:15)
[2018-11-28 07:53] LABS: ALBUMIN 2.7 g/dl (3.4-5.0); ALK PHOS 87 U/L (45-117); ANION GAP 6 MMOL/L (8-16); BILIRUBIN,TOTAL 0.4 mg/dL (0.2-1); BLOOD UREA NITROGEN 31 mg/dL (7-18); CALCIUM 8.3 mg/dL (8.5-10.1); CHLORIDE 98 mmol/L (98-107); CO2 35 mmol/L (21-32); CREATININE 1.1 mg/dL (0.55-1.3); GLUCOSE,RANDOM 146 mg/dL (74-106); POTASSIUM 3.6 mmol/L (3.5-5.1); SGOT/AST 10 U/L (15-37); SGPT/ALT 23 U/L (13-61); SODIUM 139 mmol/L (136-145); TOT PROT 5.3 g/dl (6.4-8.2)
[2018-11-28] MEDS: amLODIPine BESYLATE 10 MG TABLET (FP) PO SCH (09:38)
[2018-11-28] MEDS: APIXABAN 5 MG TABLET PO SCH ×2 (09:38→21:56)
[2018-11-28] MEDS: predniSONE 5 MG TABLET (UD) PO SCH (09:38)
[2018-11-28] MEDS: FUROSEMIDE 40 MG TABLET (FP) PO SCH (09:38)
[2018-11-28] MEDS: LOSARTAN POTASSIUM 25 MG TABLET PO SCH (09:38)
[2018-11-28] MEDS: MYCOPHENOLATE SODIUM 360 MG TABLET.DR PO SCH ×2 (09:39→21:55)
[2018-11-28] MEDS: CARVEDILOL 25 MG TABLET (FP) PO SCH ×2 (09:40→21:56)
[2018-11-28] MEDS: DULoxetine HCL 20 MG CAPSULE.DR (FP) PO SCH ×2 (09:40→21:56)
[2018-11-28] MEDS: TACROLIMUS ANHYDROUS 1 MG CAPSULE PO SCH (09:40)
--- NOTE | 2018-11-28 10:13 | PN ---
Progress Note (short form) - Note Progress Note: Resting in NAD. No acute events overnight. No fevers recorded. Intake & Output 11/25/18 11/26/18 11/27/18 11/28/18 23:59 23:59 23:59 23:59 Intake Total 560 400 900 Output Total 850 400 Balance -290 0 900 Weight 164 lb 1.6 oz 161 lb 3.2 oz 162 lb 8 oz 157 lb 6.4 oz Last Vital Signs Temp Pulse Resp BP Pulse Ox 98.7 F 89 20 104/50 L 95 11/28/18 06:00 11/28/18 06:00 11/28/18 06:00 11/28/18 06:00 11/27/18 09:00 Active Medications Albuterol/Ipratropium (Duoneb -) 1 amp NEB RQID [facility] Last Admin: 11/28/18 07:24 Dose: Not Given Amlodipine Besylate (Norvasc -) 10 mg PO DAILY [facility] Last Admin: 11/28/18 09:38 Dose: 10 mg Apixaban (Eliquis -) 5 mg PO BID [facility] Last Admin: 11/28/18 09:38 Dose: 5 mg Atorvastatin Calcium (Lipitor -) 80 mg PO [facility] Last Admin: 11/27/18 21:56 Dose: 80 mg Carvedilol (Coreg -) 25 mg PO BID [facility] Last Admin: 11/28/18 09:40 Dose: Not Given Duloxetine HCl (Cymbalta -) 20 mg PO BID [facility] Last Admin: 11/28/18 09:40 Dose: 20 mg Furosemide (Lasix -) 40 mg PO DAILY [facility] Last Admin: 11/28/18 09:38 Dose: 40 mg Insulin Aspart (Novolog Vial Sliding Scale -) 1 vial SQ TIDAC [facility]; Protocol Last Admin: 11/28/18 06:35 Dose: 2 units Insulin Aspart (Novolog Vial Sliding Scale -) 1 vial SQ [facility]; Protocol Last Admin: 11/27/18 21:58 Dose: 5 units Insulin Detemir (Levemir Vial) 18 units SQ [facility] Last Admin: 11/27/18 21:59 Dose: 18 units Losartan Potassium (Cozaar -) 25 mg PO DAILY [facility] Last Admin: 11/28/18 09:38 Dose: 25 mg Morphine Sulfate (Morphine Sulfate) 2 mg IVPUSH Q6H PRN PRN Reason: PAIN LEVEL 5-10 Last Admin: 11/28/18 06:56 Dose: 2 mg Mycophenolate Sodium (Mycophenolic Acid) 360 mg PO BID [facility] Last Admin: 11/28/18 09:39 Dose: 360 mg Prednisone (Deltasone -) 5 mg PO DAILY [facility] Last Admin: 11/28/18 09:38 Dose: 5 mg Tacrolimus (Prograf) 1 mg PO DAILY [facility] Last Admin: 11/28/18 09:40 Dose: 1 mg Tacrolimus (Prograf) 0.5 mg PO DAILY@2200 [facility] Last Admin: 11/27/18 22:00 Dose: 0.5 mg Tamsulosin HCl (Flomax -) 0.4 mg PO HS [facility] Last Admin: 11/27/18 21:59 Dose: 0.4 mg Gen: NAD Heart: RRR Lung: decreased breath sounds at the bases Abd: soft, nontender Ext: + edema Laboratory Results - last 24 hr 11/27/18 11/27/18 11/27/18 10:52 11:53 12:42 WBC RBC Hgb Hct MCV MCH MCHC RDW Plt Count MPV Absolute Neuts (auto) Neutrophils % Lymphocytes % Monocytes % Eosinophils % Basophils % Nucleated RBC % Sodium 141 Potassium 4.1 Chloride 99 Carbon Dioxide 33 H Anion Gap 9 BUN 27 H Creatinine 1.2 Creat Clearance w eGFR 58.86 POC Glucometer 403 Random Glucose 345 H* 368 H* Calcium 8.6 Total Bilirubin 0.4 AST 13 L ALT 26 Alkaline Phosphatase 94 Total Protein 5.4 L Albumin 2.8 L 11/27/18 11/27/18 11/28/18 17:12 21:52 06:31 WBC RBC Hgb Hct MCV MCH MCHC RDW Plt Count MPV Absolute Neuts (auto) Neutrophils % Lymphocytes % Monocytes % Eosinophils % Basophils % Nucleated RBC % Sodium Potassium Chloride Carbon Dioxide Anion Gap BUN Creatinine Creat Clearance w eGFR POC Glucometer 274 313 153 Random Glucose Calcium Total Bilirubin AST ALT Alkaline Phosphatase Total Protein Albumin 11/28/18 11/28/18 06:45 06:45 WBC 11.8 H RBC 4.22 Hgb 11.7 Hct 36.9 MCV 87.5 MCH 27.8 MCHC 31.8 L RDW 16.2 H Plt Count 308 D MPV 7.7 Absolute Neuts (auto) 8.5 H Neutrophils % 72.2 Lymphocytes % 17.7 Monocytes % 7.5 Eosinophils % 2.0 D Basophils % 0.6 Nucleated RBC % 0 Sodium 139 Potassium 3.6 Chloride 98 Carbon Dioxide 35 H Anion Gap 6 L BUN 31 H Creatinine 1.1 Creat Clearance w eGFR > 60 POC Glucometer Random Glucose 146 H Calcium 8.3 L Total Bilirubin 0.4 AST 10 L ALT 23 Alkaline Phosphatase 87 Total Protein 5.3 L Albumin 2.7 L A/P Acute on Chronic Diastolic Heart Failure CAD s/p CABG Mitral Regurgitation Pulmonary HTN h/o Renal Transplant HTN h/o DVT - Lasix - Daily weights - O2 to keep SpO2 >90% - AC - Prednisone 7.5mg OD Dr Melgar
--- NOTE | 2018-11-28 10:44 | DS ---
Physical Examination Vital Signs: Vital Signs Temperature 98.7 F 11/28/18 06:00 Pulse Rate 89 11/28/18 06:00 Respiratory Rate 20 11/28/18 06:00 Blood Pressure 104/50 L 11/28/18 06:00 O2 Sat by Pulse Oximetry (%) 95 11/27/18 09:00 Constitutional: Yes: Calm Cardiovascular: Yes: Regular Rate and Rhythm, S1, S2 Respiratory: Yes: CTA Bilaterally Gastrointestinal: Yes: Normal Bowel Sounds, Soft Edema: No Neurological: Yes: Alert, Oriented Labs: CBC, BMP 11/28/18 06:45 11/28/18 06:45 Discharge Summary Reason For Visit: DIFFICULTY BREATHING Current Active Problems Acute on chronic diastolic (congestive) heart failure (Acute) Acute on chronic heart failure (Acute) Bifascicular block (Acute) CHF (congestive heart failure) (Acute) DVT (deep venous thrombosis) (Acute) Dehydration (Acute) Diabetes (Acute) Eschar of finger (Acute) Myocardial infarct, old (Acute) Renal transplant disorder (Acute) S/P IVC filter (Acute) Hospital Course: 8 y/o M with PMH renal transplant (on prograf), baseline dementia, CAD, HI, DM, HTN, HLD, CHF, mild , who presented to the ED c/o 2hr hx SOB. acute on chronic CHF patient in hospital started on lasix twice a day, in hospital had swallow eval done, also ortho saw patient for fourth finger right hand eschar patient does not want surgical intervention right now DM seen by endocrine, insulin dose increased started on losartan for chf and renal protection in DM renal transplant on prednisone 5mg and mycophenolate and tacrolimus Condition: Improved - Instructions Referrals: Gt Willett MD [Primary Care Provider] - Disposition: RETIREMENT FACILITY - Home Medications Comprehensive Discharge Medication List: Ambulatory Orders Acetaminophen [Tylenol .Regular Strength -] 650 mg PO Q4H PRN tablet 11/29/17 Albuterol 2.5/Ipratropium 0.5 [Duoneb -] 1 amp NEB QID 02/08/18 Amlodipine Besylate [Norvasc -] 10 mg PO DAILY #30 tablet 05/19/18 Apixaban [Eliquis] 5 mg PO BID #60 tablet 05/19/18 Atorvastatin Ca [Lipitor] 80 mg PO HS #60 tablet 05/19/18 Duloxetine HCl [Cymbalta] 20 mg PO BID #60 capsule. 05/19/18 Tamsulosin HCl [Flomax] 0.4 mg PO HS #30 cap.er.24h 05/19/18 predniSONE [Deltasone -] 20 mg PO DAILY #30 tablet 05/24/18 Carvedilol [Coreg -] 25 mg PO BID #60 tablet 09/14/18 Hydrocortisone [Cortef -] 20 mg PO BID tablet 09/14/18 Insulin (Levemir) [Levemir Vial] 25 units SQ AM units 09/14/18 Insulin (Levemir) [Levemir Vial] 30 units SQ HS units 09/14/18 Insulin Sliding Scale [Novolog Vial Sliding Scale -] 1 vial SQ TIDAC units Mycophenolate Sodium [Mycophenolic Acid] 360 mg PO BID tablet. 09/14/18 Tacrolimus Anhydrous [Prograf] 1 mg PO BID capsule 09/14/18 oxyCODONE HCL [Roxicodone -] 5 mg PO Q6H PRN tablet MDD 4 09/14/18 Cefuroxime Axetil [Cefuroxime] 500 mg PO BID #10 tablet 10/16/18
--- NOTE | 2018-11-28 14:16 | PN ---
Progress Note, Physician Chief Complaint: Pt alert; feels weak. History of Present Illness: The patient is a 78 year old male with a significant past medical history of renal transplant on prograf (2008), CAD, [place], DM, HTN, HLD, CHF, mild aortic stenosis presenting with shortness of breath for the past 2 hours. Patient was given O2 en route to the ED by EMS. Patient's family is also complaining of leg swelling and puffiness in the face. Patient has leg swelling, but has noticed the left leg is more swollen than the right. Patient reports similar symptoms one month ago. Patient denies chest pain, fever, chills, nausea, vomiting, urinary symptoms, or changes in bowel movements. Allergies: NKDA Surgeries: None Social: No reported alcohol, drug or cigarette use - Current Medication List Current Medications: Active Medications Albuterol/Ipratropium (Duoneb -) 1 amp NEB [facility]QID [facility] Last Admin: 11/28/18 12:00 Dose: 1 amp Amlodipine Besylate (Norvasc -) 10 mg PO DAILY [facility] Last Admin: 11/28/18 09:38 Dose: 10 mg Apixaban (Eliquis -) 5 mg PO BID [facility] Last Admin: 11/28/18 09:38 Dose: 5 mg Atorvastatin Calcium (Lipitor -) 80 mg PO HS [facility] Last Admin: 11/27/18 21:56 Dose: 80 mg Carvedilol (Coreg -) 25 mg PO BID [facility] Last Admin: 11/28/18 09:40 Dose: Not Given Duloxetine HCl (Cymbalta -) 20 mg PO BID [facility] Last Admin: 11/28/18 09:40 Dose: 20 mg Furosemide (Lasix -) 40 mg PO DAILY [facility] Last Admin: 11/28/18 09:38 Dose: 40 mg Insulin Aspart (Novolog Vial Sliding Scale -) 1 vial SQ [facility]; Protocol Last Admin: 11/28/18 11:56 Dose: 2 units Insulin Aspart (Novolog Vial Sliding Scale -) 1 vial SQ [facility]; Protocol Last Admin: 11/27/18 21:58 Dose: 5 units Insulin Detemir (Levemir Vial) 18 units SQ [facility] Last Admin: 11/27/18 21:59 Dose: 18 units Losartan Potassium (Cozaar -) 25 mg PO DAILY [facility] Last Admin: 01/08/19 09:38 Dose: 25 mg Mycophenolate Sodium (Mycophenolic Acid) 360 mg PO BID [facility] Last Admin: 11/28/18 09:39 Dose: 360 mg Prednisone (Deltasone -) 5 mg PO DAILY [facility] Last Admin: 11/28/18 09:38 Dose: 5 mg Tacrolimus (Prograf) 1 mg PO DAILY [facility] Last Admin: 11/28/18 09:40 Dose: 1 mg Tacrolimus (Prograf) 0.5 mg PO DAILY@2200 [facility] Last Admin: 11/27/18 22:00 Dose: 0.5 mg Tamsulosin HCl (Flomax -) 0.4 mg PO HS [facility] Last Admin: 11/27/18 21:59 Dose: 0.4 mg - Objective Vital Signs: Vital Signs Temperature 98.7 F 11/28/18 06:00 Pulse Rate 89 11/28/18 06:00 Respiratory Rate 20 11/28/18 06:00 Blood Pressure 104/50 L 11/28/18 06:00 O2 Sat by Pulse Oximetry (%) 95 11/28/18 09:00 Constitutional: Yes: Anxious Eyes: Yes: WNL HENT: Yes: WNL Labs: CBC, BMP 11/28/18 06:45 11/28/18 06:45 Problem List - Problems (1) Acute on chronic diastolic (congestive) heart failure Assessment/Plan: start losartan (HTN; DM--renal protection; s/p transplant). On furosemide. F/u K: keep 4-4.5 On apixaban: s/p DVT (has IVC filter) F?u BUN/Cr, electrolytes, daily weight, Is and Os. Code(s): I50.33 - ACUTE ON CHRONIC DIASTOLIC (CONGESTIVE) HEART FAILURE (2) Diabetes Code(s): E11.9 - TYPE 2 DIABETES MELLITUS WITHOUT COMPLICATIONS Qualifiers: Diabetes mellitus type: type 2 Diabetes mellitus complication detail: with polyneuropathy (3) HTN (hypertension) Assessment/Plan: On coreg, amlodipine, losartan; furosemide prn. Code(s): I10 - ESSENTIAL (PRIMARY) HYPERTENSION Qualifiers: Hypertension type: essential hypertension Qualified Code(s): I10 - Essential (primary) hypertension (4) Kidney transplant recipient Code(s): Z94.0 - KIDNEY TRANSPLANT STATUS (5) Bifascicular block Code(s): I45.2 - BIFASCICULAR BLOCK (6) Myocardial infarct, old Assessment/Plan: Hx "CABG"; f/u records. On apixaban: hx DVT. (EKG this admission: NSR). Code(s): I25.2 - OLD MYOCARDIAL INFARCTION (7) DVT (deep venous thrombosis) Assessment/Plan: ?Time period when this occurred. s/p IVC filter. On Apixaban; f/u w/u for decision on its continuation. Code(s): I82.409 - ACUTE EMBOLISM AND THOMBOS UNSP DEEP VN UNSP LOWER EXTREMITY
--- NOTE | 2018-11-28 14:51 | PN ---
Progress Note (short form) - Note Progress Note: Ortho Pt seen and examined - status unchanged Selected Entries 11/28/18 06:00 Temperature 98.7 F Pulse Rate 89 Respiratory 20 Rate Blood Pressure 104/50 L Laboratory Tests 11/28/18 06:45 WBC 11.8 H Hgb 11.7 Hct 36.9 Plt Count 308 D right hand- + necrosis right 4th finger, + ttp, decr rom no pus/bone exposed a/p d/w with daughter in detail NTD at this time orthopedically recommend wound care eval would need amputation in future if no improvement ok to d/c from ortho pov f.u as outpt prn d/w Dr. Ace
--- NOTE | 2018-11-28 16:14 | PN ---
Progress Note, Physician History of Present Illness: Pt seen and examined at bedside. He is awake and appears comfortable. - Current Medication List Current Medications: Active Medications Albuterol/Ipratropium (Duoneb -) 1 amp NEB RQID [facility] Last Admin: 11/28/18 12:00 Dose: 1 amp Amlodipine Besylate (Norvasc -) 10 mg PO DAILY [facility] Last Admin: 11/28/18 09:38 Dose: 10 mg Apixaban (Eliquis -) 5 mg PO BID [facility] Last Admin: 11/28/18 09:38 Dose: 5 mg Atorvastatin Calcium (Lipitor -) 80 mg PO HS [facility] Last Admin: 11/27/18 21:56 Dose: 80 mg Carvedilol (Coreg -) 25 mg PO BID [facility] Last Admin: 11/28/18 09:40 Dose: Not Given Duloxetine HCl (Cymbalta -) 20 mg PO BID [facility] Last Admin: 11/28/18 09:40 Dose: 20 mg Furosemide (Lasix -) 40 mg PO DAILY [facility] Last Admin: 11/28/18 09:38 Dose: 40 mg Insulin Aspart (Novolog Vial Sliding Scale -) 1 vial SQ TIDAC [facility]; Protocol Last Admin: 11/28/18 11:56 Dose: 2 units Insulin Aspart (Novolog Vial Sliding Scale -) 1 vial SQ [facility]; Protocol Last Admin: 11/27/18 21:58 Dose: 5 units Insulin Detemir (Levemir Vial) 18 units SQ [facility] Last Admin: 11/27/18 21:59 Dose: 18 units Losartan Potassium (Cozaar -) 25 mg PO DAILY [facility] Last Admin: 11/28/18 09:38 Dose: 25 mg Mycophenolate Sodium (Mycophenolic Acid) 360 mg PO BID [facility] Last Admin: 11/28/18 09:39 Dose: 360 mg Prednisone (Deltasone -) 5 mg PO DAILY [facility] Last Admin: 11/28/18 09:38 Dose: 5 mg Tacrolimus (Prograf) 1 mg PO DAILY [facility] Last Admin: 11/28/18 09:40 Dose: 1 mg Tacrolimus (Prograf) 0.5 mg PO DAILY@2200 [facility] Last Admin: 11/27/18 22:00 Dose: 0.5 mg Tamsulosin HCl (Flomax -) 0.4 mg PO [facility] Last Admin: 11/27/18 21:59 Dose: 0.4 mg - Objective Vital Signs: Vital Signs Temperature 98.5 F 11/28/18 14:57 Pulse Rate 88 11/28/18 14:57 Respiratory Rate 18 11/28/18 14:57 Blood Pressure 104/50 L 11/28/18 06:00 O2 Sat by Pulse Oximetry (%) 95 11/28/18 09:00 Constitutional: Yes: Calm Eyes: Yes: Conjunctiva Clear HENT: Yes: Atraumatic Cardiovascular: Yes: S1, S2 Respiratory: Yes: CTA Bilaterally Gastrointestinal: Yes: Soft Genitourinary: Yes: Other (graft soft and non tender) Musculoskeletal: Yes: WNL Edema: No Neurological: Yes: Oriented Psychiatric: Yes: Oriented Labs: CBC, BMP 11/28/18 06:45 11/28/18 06:45 Problem List - Problems (1) Acute on chronic diastolic (congestive) heart failure Code(s): I50.33 - ACUTE ON CHRONIC DIASTOLIC (CONGESTIVE) HEART FAILURE (2) CHF (congestive heart failure) Code(s): I50.9 - HEART FAILURE, UNSPECIFIED Qualifiers: Heart failure type: unspecified Heart failure chronicity: unspecified Qualified Code(s): I50.9 - Heart failure, unspecified Assessment/Plan Current Medications Generic Name Dose Route Start Last Admin Trade Name Freq PRN Reason Stop Dose Admin Albuterol/Ipratropium 1 amp 11/18/18 08:00 11/28/18 12:00 Duoneb - NEB 1 amp RQID [facility] Administration Amlodipine Besylate 10 mg 11/18/18 10:00 11/28/18 09:38 Norvasc - PO 10 mg DAILY [facility] Administration Apixaban 5 mg 11/18/18 10:00 11/28/18 09:38 Eliquis - PO 5 mg BID [facility] Administration Atorvastatin Calcium 80 mg 11/18/18 22:00 11/27/18 21:56 Lipitor - PO 80 mg HS [facility] Administration Carvedilol 25 mg 11/18/18 10:00 11/28/18 09:40 Coreg - PO Not Given BID [facility] Duloxetine HCl 20 mg 11/18/18 10:00 11/28/18 09:40 Cymbalta - PO 20 mg BID [facility] Administration Furosemide 40 mg 11/28/18 10:00 11/28/18 09:38 Lasix - PO 40 mg DAILY [facility] Administration Insulin Aspart 1 vial 11/21/18 16:30 11/28/18 11:56 Novolog Vial Sliding Scale - SQ 2 units TIDAC [facility] Administration Protocol Insulin Aspart 1 vial 11/24/18 23:14 11/27/18 21:58 Novolog Vial Sliding Scale - SQ 5 units HS [facility] Administration Protocol Insulin Detemir 18 units 11/27/18 12:33 11/27/18 21:59 Levemir Vial SQ 18 units HS [facility] Administration Losartan Potassium 25 mg 11/21/18 10:00 11/28/18 09:38 Cozaar - PO 25 mg DAILY [facility] Administration Mycophenolate Sodium 360 mg 11/18/18 10:00 11/28/18 09:39 Mycophenolic Acid PO 360 mg BID [facility] Administration Prednisone 5 mg 11/27/18 14:30 11/28/18 09:38 Deltasone - PO 5 mg DAILY [facility] Administration Tacrolimus 1 mg 11/28/18 10:00 11/28/18 09:40 Prograf PO 1 mg DAILY [facility] Administration Tacrolimus 0.5 mg 11/27/18 22:00 11/27/18 22:00 Prograf PO 0.5 mg DAILY@2200 [facility] Administration Tamsulosin HCl 0.4 mg 11/18/18 22:00 11/27/18 21:59 Flomax - PO 0.4 mg HS [facility] Administration Impression 1. CKD 2. kidney transplant 3. DM 4. hx of syncope 5. HTN 6. hyperlipidemia 7. CHF 8. dyspnea 9. Hx DVT - pt has IVC filter Plan - cont lasix - prograf dose adjusted - prednisone 5 mg daily - will need outpt follow up - will follow - avoid nsaids and nephrotoxins
[2018-11-28] MEDS: ATORVASTATIN CA 80 MG TABLET (FP) PO SCH (21:56)
[2018-11-28] MEDS: TAMSULOSIN HCL 0.4 MG CAP PO SCH (21:56)
--- NOTE | 2018-11-28 22:44 | PN ---
Progress Note, Physician Chief Complaint: short of breath easily History of Present Illness: 78 year old male with a significant past medical history of renal transplant on prograf (2008), CAD, [place], DM, HTN, HLD, CHF,has necrotic fourth right finger, high sugars despite multi dose insulin regimen - Current Medication List Current Medications: Active Medications Albuterol/Ipratropium (Duoneb -) 1 amp NEB RQID [facility] Last Admin: 11/28/18 20:15 Dose: 1 amp Amlodipine Besylate (Norvasc -) 10 mg PO DAILY [facility] Last Admin: 11/28/18 09:38 Dose: 10 mg Apixaban (Eliquis -) 5 mg PO BID [facility] Last Admin: 11/28/18 21:56 Dose: 5 mg Atorvastatin Calcium (Lipitor -) 80 mg PO HS [facility] Last Admin: 11/28/18 21:56 Dose: 80 mg Carvedilol (Coreg -) 25 mg PO BID [facility] Last Admin: 11/28/18 21:56 Dose: 25 mg Duloxetine HCl (Cymbalta -) 20 mg PO BID [facility] Last Admin: 11/28/18 21:56 Dose: 20 mg Furosemide (Lasix -) 40 mg PO DAILY [facility] Last Admin: 11/28/18 09:38 Dose: 40 mg Insulin Aspart (Novolog Vial Sliding Scale -) 1 vial SQ TIDAC [facility]; Protocol Last Admin: 11/28/18 16:40 Dose: 8 units Insulin Aspart (Novolog Vial Sliding Scale -) 1 vial SQ [facility]; Protocol Last Admin: 11/27/18 21:58 Dose: 5 units Insulin Detemir (Levemir Vial) 18 units SQ [facility] Last Admin: 11/27/18 21:59 Dose: 18 units Losartan Potassium (Cozaar -) 25 mg PO DAILY [facility] Last Admin: 11/28/18 09:38 Dose: 25 mg Mycophenolate Sodium (Mycophenolic Acid) 360 mg PO BID [facility] Last Admin: 11/28/18 21:55 Dose: 360 mg Prednisone (Deltasone -) 5 mg PO DAILY [facility] Last Admin: 11/28/18 09:38 Dose: 5 mg Tacrolimus (Prograf) 1 mg PO DAILY [facility] Last Admin: 11/28/18 09:40 Dose: 1 mg Tacrolimus (Prograf) 0.5 mg PO DAILY@2200 [facility] Last Admin: 11/27/18 22:00 Dose: 0.5 mg Tamsulosin HCl (Flomax -) 0.4 mg PO HS [facility] Last Admin: 11/28/18 21:56 Dose: 0.4 mg - Objective Vital Signs: Vital Signs Temperature 97.3 F L 11/28/18 21:00 Pulse Rate 89 11/28/18 21:00 Respiratory Rate 18 11/28/18 21:00 Blood Pressure 130/79 11/28/18 21:00 O2 Sat by Pulse Oximetry (%) 95 11/28/18 09:00 Constitutional: Yes: Calm Eyes: Yes: EOM Intact HENT: Yes: Normocephalic Neck: Yes: Trachea Midline Cardiovascular: Yes: Regular Rate and Rhythm Respiratory: Yes: CTA Bilaterally Gastrointestinal: Yes: Normal Bowel Sounds ...Rectal Exam: Yes: Deferred Genitourinary: Yes: WNL Musculoskeletal: Yes: Back Pain, Joint Stiffness Extremities: Yes: Delayed Capillary Refill Edema: LLE: 1+, RLE: 1+ Wound/Incision: Yes: Clean/Dry Neurological: Yes: Alert Labs: CBC, BMP 11/28/18 06:45 Problem List - Problems (1) Acute on chronic diastolic (congestive) heart failure Code(s): I50.33 - ACUTE ON CHRONIC DIASTOLIC (CONGESTIVE) HEART FAILURE (2) Acute on chronic heart failure Code(s): I50.9 - HEART FAILURE, UNSPECIFIED (3) CHF (congestive heart failure) Code(s): I50.9 - HEART FAILURE, UNSPECIFIED Qualifiers: Heart failure type: unspecified Heart failure chronicity: unspecified Qualified Code(s): I50.9 - Heart failure, unspecified (4) DVT (deep venous thrombosis) Code(s): I82.409 - ACUTE EMBOLISM AND THOMBOS UNSP DEEP VN UNSP LOWER EXTREMITY (5) Dehydration Code(s): E86.0 - DEHYDRATION (6) Diabetes Code(s): E11.9 - TYPE 2 DIABETES MELLITUS WITHOUT COMPLICATIONS Qualifiers: Diabetes mellitus type: type 2 Diabetes mellitus complication detail: with polyneuropathy (7) Myocardial infarct, old Code(s): I25.2 - OLD MYOCARDIAL INFARCTION Assessment/Plan Current Active Problems Acute on chronic diastolic (congestive) heart failure (Acute) Acute on chronic heart failure (Acute) Bifascicular block (Acute) CHF (congestive heart failure) (Acute) DVT (deep venous thrombosis) (Acute) Dehydration (Acute) Diabetes (Acute) Eschar of finger (Acute) Myocardial infarct, old (Acute) Renal transplant disorder (Acute) S/P IVC filter (Acute) Abnormal Lab Results 11/28/18 11/28/18 06:45 06:45 WBC 11.8 H MCHC 31.8 L RDW 16.2 H Absolute Neuts (auto) 8.5 H Carbon Dioxide 35 H Anion Gap 6 L BUN 31 H Random Glucose 146 H Calcium 8.3 L AST 10 L Total Protein 5.3 L Albumin 2.7 L Laboratory Tests 11/27/18 11/28/18 11/28/18 21:52 06:31 06:45 Sodium 139 Potassium 3.6 Chloride 98 Carbon Dioxide 35 H BUN 31 H Creatinine 1.1 POC Glucometer 313 153 Random Glucose 146 H Calcium 8.3 L 11/28/18 11/28/18 11/28/18 11:54 16:34 21:48 Sodium Potassium Chloride Carbon Dioxide BUN Creatinine POC Glucometer 160 319 402 Random Glucose Calcium plan continue levemir hs add levemir 7 units am ac breakfeast
[2018-11-28] MEDS ORDERED: INSULIN (LEVEMIR) 100 UNITS/ML UNITS SQ SCH ×2 (22:45→23:45)
[2018-11-28] MEDS: TACROLIMUS 0.5 MG CAPSULE PO SCH (22:50)
[2018-11-28] MEDS ORDERED: INSULIN (NOVOLOG) ASPART 100 UNITS/ML 10ML VIAL SQ ONE (23:30)
[2018-11-28] MEDS: INSULIN (LEVEMIR) 100 UNITS/ML UNITS SQ SCH (23:45)
[2018-11-29] MEDS: INSULIN SLIDING SCALE (NOVOLOG) 1 VIAL SQ SCH ×2 (06:41→12:09)
[2018-11-29] MEDS ORDERED: INSULIN (LEVEMIR) 100 UNITS/ML UNITS SQ SCH (07:00)
[2018-11-29] MEDS: ALBUTEROL SO4 2.5/IPRATROPIUM 0.5 INH SOL 3 ML VIAL.NEB. NEB SCH ×3 (07:30→15:26)
[2018-11-29] MEDS ORDERED: PT OWN MED DRAWER 7, Y5N ONE (10:29)
[2018-11-29] MEDS: APIXABAN 5 MG TABLET PO SCH (10:36)
[2018-11-29] MEDS: CARVEDILOL 25 MG TABLET (FP) PO SCH (10:36)
[2018-11-29] MEDS: amLODIPine BESYLATE 10 MG TABLET (FP) PO SCH (10:36)
[2018-11-29] MEDS: LOSARTAN POTASSIUM 25 MG TABLET PO SCH (10:36)
[2018-11-29] MEDS: FUROSEMIDE 40 MG TABLET (FP) PO SCH (10:36)
[2018-11-29] MEDS: predniSONE 5 MG TABLET (UD) PO SCH (10:36)
[2018-11-29] MEDS: DULoxetine HCL 20 MG CAPSULE.DR (FP) PO SCH (10:36)
[2018-11-29] MEDS: TACROLIMUS ANHYDROUS 1 MG CAPSULE PO SCH (10:37)
[2018-11-29] MEDS: MYCOPHENOLATE SODIUM 360 MG TABLET.DR PO SCH (10:37)
--- NOTE | 2018-11-29 11:35 | PN ---
Progress Note, Physician History of Present Illness: The patient is a 78 year old male with a significant past medical history of renal transplant on prograf (2008), CAD, [place], DM, HTN, HLD, CHF, mild aortic stenosis presenting with shortness of breath for the past 2 hours. Patient was given O2 en route to the ED by EMS. Patient's family is also complaining of leg swelling and puffiness in the face. Patient has leg swelling, but has noticed the left leg is more swollen than the right. Patient reports similar symptoms one month ago. Patient denies chest pain, fever, chills, nausea, vomiting, urinary symptoms, or changes in bowel movements. Allergies: NKDA Surgeries: None Social: No reported alcohol, drug or cigarette use - Current Medication List Current Medications: Active Medications Albuterol/Ipratropium (Duoneb -) 1 amp NEB RQID [facility] Last Admin: 11/29/18 11:26 Dose: Not Given Amlodipine Besylate (Norvasc -) 10 mg PO DAILY [facility] Last Admin: 11/29/18 10:36 Dose: 10 mg Apixaban (Eliquis -) 5 mg PO BID [facility] Last Admin: 11/29/18 10:36 Dose: 5 mg Atorvastatin Calcium (Lipitor -) 80 mg PO HS [facility] Last Admin: 11/28/18 21:56 Dose: 80 mg Carvedilol (Coreg -) 25 mg PO BID [facility] Last Admin: 11/29/18 10:36 Dose: 25 mg Duloxetine HCl (Cymbalta -) 20 mg PO BID [facility] Last Admin: 11/29/18 10:36 Dose: 20 mg Furosemide (Lasix -) 40 mg PO DAILY [facility] Last Admin: 11/29/18 10:36 Dose: 40 mg Insulin Aspart (Novolog Vial Sliding Scale -) 1 vial SQ TIDAC [facility]; Protocol Last Admin: 11/29/18 06:41 Dose: 4 units Insulin Aspart (Novolog Vial Sliding Scale -) 1 vial SQ [facility]; Protocol Last Admin: 11/28/18 23:46 Dose: Not Given Insulin Detemir (Levemir Vial) 7 units SQ DAILY@0700 [facility] Last Admin: 11/29/18 06:41 Dose: 7 units Insulin Detemir (Levemir Vial) 14 units SQ [facility] Last Admin: 11/28/18 23:41 Dose: 14 units Losartan Potassium (Cozaar -) 25 mg PO DAILY [facility] Last Admin: 11/29/18 10:36 Dose: 25 mg Mycophenolate Sodium (Mycophenolic Acid) 360 mg PO BID [facility] Last Admin: 11/29/18 10:37 Dose: 360 mg Prednisone (Deltasone -) 5 mg PO DAILY [facility] Last Admin: 11/29/18 10:36 Dose: 5 mg Tacrolimus (Prograf) 1 mg PO DAILY [facility] Last Admin: 11/29/18 10:37 Dose: 1 mg Tacrolimus (Prograf) 0.5 mg PO DAILY@2200 [facility] Last Admin: 11/28/18 22:50 Dose: 0.5 mg Tamsulosin HCl (Flomax -) 0.4 mg PO HS [facility] Last Admin: 11/28/18 21:56 Dose: 0.4 mg - Objective Vital Signs: Vital Signs Temperature 80 F L 11/29/18 06:00 Pulse Rate 80 11/29/18 06:00 Respiratory Rate 20 11/29/18 06:00 Blood Pressure 134/36 L 11/29/18 06:00 O2 Sat by Pulse Oximetry (%) 96 11/28/18 21:00 Eyes: Yes: WNL, Conjunctiva Clear, EOM Intact HENT: Yes: WNL, Atraumatic, Normocephalic Neck: Yes: WNL, Supple, Trachea Midline Cardiovascular: Yes: WNL, Regular Rate and Rhythm Respiratory: Yes: WNL, Regular, CTA Bilaterally Gastrointestinal: Yes: WNL, Normal Bowel Sounds Genitourinary: Yes: WNL Musculoskeletal: Yes: WNL Extremities: Yes: WNL Edema: No Integumentary: Yes: WNL Neurological: Yes: WNL, Alert, Oriented ...Motor Strength: WNL Psychiatric: Yes: WNL Labs: CBC, BMP 11/28/18 06:45 11/28/18 22:05 Assessment/Plan Problems (1) Acute on chronic diastolic (congestive) heart failure Assessment/Plan: start losartan (HTN; DM--renal protection; s/p transplant). On furosemide. F/u K: keep 4-4.5 On apixaban: s/p DVT (has IVC filter) F?u BUN/Cr, electrolytes, daily weight, Is and Os. Code(s): I50.33 - ACUTE ON CHRONIC DIASTOLIC (CONGESTIVE) HEART FAILURE (2) Diabetes Code(s): E11.9 - TYPE 2 DIABETES MELLITUS WITHOUT COMPLICATIONS Qualifiers: Diabetes mellitus type: type 2 Diabetes mellitus complication detail: with polyneuropathy (3) HTN (hypertension) Assessment/Plan: On coreg, amlodipine, losartan; furosemide prn. Code(s): I10 - ESSENTIAL (PRIMARY) HYPERTENSION Qualifiers: Hypertension type: essential hypertension Qualified Code(s): I10 - Essential (primary) hypertension (4) Kidney transplant recipient Code(s): Z94.0 - KIDNEY TRANSPLANT STATUS (5) Bifascicular block Code(s): I45.2 - BIFASCICULAR BLOCK (6) Myocardial infarct, old Assessment/Plan: Hx "CABG"; f/u records. On apixaban: hx DVT. (EKG this admission: NSR). Code(s): I25.2 - OLD MYOCARDIAL INFARCTION (7) DVT (deep venous thrombosis) Assessment/Plan: ?Time period when this occurred. s/p IVC filter. On Apixaban; f/u w/u for decision on its continuation. Code(s): I82.409 - ACUTE EMBOLISM AND THOMBOS UNSP DEEP VN UNSP LOWER EXTREMITY
--- NOTE | 2018-11-29 12:47 | PN ---
Progress Note, Physician History of Present Illness: Pt seen and examined at bedside. He appears comfortable. He denies shortness of breath. - Current Medication List Current Medications: Active Medications Albuterol/Ipratropium (Duoneb -) 1 amp NEB RQID [facility] Last Admin: 11/29/18 11:26 Dose: Not Given Amlodipine Besylate (Norvasc -) 10 mg PO DAILY [facility] Last Admin: 11/29/18 10:36 Dose: 10 mg Apixaban (Eliquis -) 5 mg PO BID [facility] Last Admin: 11/29/18 10:36 Dose: 5 mg Atorvastatin Calcium (Lipitor -) 80 mg PO [facility] Last Admin: 11/28/18 21:56 Dose: 80 mg Carvedilol (Coreg -) 25 mg PO BID [facility] Last Admin: 11/29/18 10:36 Dose: 25 mg Duloxetine HCl (Cymbalta -) 20 mg PO BID [facility] Last Admin: 11/29/18 10:36 Dose: 20 mg Furosemide (Lasix -) 40 mg PO DAILY [facility] Last Admin: 11/29/18 10:36 Dose: 40 mg Insulin Aspart (Novolog Vial Sliding Scale -) [facility]; Protocol Last Admin: 11/29/18 12:09 Dose: 6 units Insulin Aspart (Novolog Vial Sliding Scale -) 1 vial SQ [facility]; Protocol Last Admin: 11/28/18 23:46 Dose: Not Given Insulin Detemir (Levemir Vial) 7 units SQ DAILY@0700 [facility] Last Admin: 11/29/18 06:41 Dose: 7 units Insulin Detemir (Levemir Vial) 14 units SQ [facility] Last Admin: 11/28/18 23:41 Dose: 14 units Losartan Potassium (Cozaar -) 25 mg PO DAILY [facility] Last Admin: 11/29/18 10:36 Dose: 25 mg Mycophenolate Sodium (Mycophenolic Acid) 360 mg PO BID [facility] Last Admin: 11/29/18 10:37 Dose: 360 mg Prednisone (Deltasone -) 5 mg PO DAILY [facility] Last Admin: 11/29/18 10:36 Dose: 5 mg Tacrolimus (Prograf) 1 mg PO DAILY [facility] Last Admin: 11/29/18 10:37 Dose: 1 mg Tacrolimus (Prograf) 0.5 mg PO DAILY@2200 [facility] Last Admin: 11/28/18 22:50 Dose: 0.5 mg Tamsulosin HCl (Flomax -) 0.4 mg PO HS [facility] Last Admin: 11/28/18 21:56 Dose: 0.4 mg - Objective Vital Signs: Vital Signs Temperature 80 F L 11/29/18 06:00 Pulse Rate 80 11/29/18 06:00 Respiratory Rate 20 11/29/18 06:00 Blood Pressure 134/36 L 11/29/18 06:00 O2 Sat by Pulse Oximetry (%) 96 11/28/18 21:00 Constitutional: Yes: Calm Eyes: Yes: Conjunctiva Clear HENT: Yes: Atraumatic Neck: Yes: Supple Cardiovascular: Yes: S1, S2 Respiratory: Yes: CTA Bilaterally Gastrointestinal: Yes: WNL Genitourinary: Yes: Other (graft soft and non tender) Musculoskeletal: Yes: WNL Edema: No Wound/Incision: Yes: Open to air Neurological: Yes: Confusion Labs: CBC, BMP 11/28/18 06:45 11/28/18 22:05 Problem List - Problems (1) Acute on chronic diastolic (congestive) heart failure Code(s): I50.33 - ACUTE ON CHRONIC DIASTOLIC (CONGESTIVE) HEART FAILURE (2) CHF (congestive heart failure) Code(s): I50.9 - HEART FAILURE, UNSPECIFIED Qualifiers: Heart failure type: unspecified Heart failure chronicity: unspecified Qualified Code(s): I50.9 - Heart failure, unspecified Assessment/Plan Current Medications Generic Name Dose Route Start Last Admin Trade Name [place] PRN Reason Stop Dose Admin Albuterol/Ipratropium 1 amp 11/18/18 08:00 11/29/18 11:26 Duoneb - NEB Not Given RQID [facility] Amlodipine Besylate 10 mg 11/18/18 10:00 11/29/18 10:36 Norvasc - PO 10 mg DAILY [facility] Administration Apixaban 5 mg 11/18/18 10:00 11/29/18 10:36 Eliquis - PO 5 mg BID [facility] Administration Atorvastatin Calcium 80 mg 11/18/18 22:00 11/28/18 21:56 Lipitor - PO 80 mg HS [facility] Administration Carvedilol 25 mg 11/18/18 10:00 11/29/18 10:36 Coreg - PO 25 mg BID [facility] Administration Duloxetine HCl 20 mg 11/18/18 10:00 11/29/18 10:36 Cymbalta - PO 20 mg BID [facility] Administration Furosemide 40 mg 11/28/18 10:00 11/29/18 10:36 Lasix - PO 40 mg DAILY [facility] Administration Insulin Aspart 1 vial 11/21/18 16:30 11/29/18 12:09 Novolog Vial Sliding Scale - SQ 6 units TIDAC [facility] Administration Protocol Insulin Aspart 1 vial 11/24/18 23:14 11/28/18 23:46 Novolog Vial Sliding Scale - SQ Not Given HS [facility] Protocol Insulin Detemir 7 units 11/29/18 07:00 11/29/18 06:41 Levemir Vial SQ 7 units DAILY@0700 [facility] Administration Insulin Detemir 14 units 11/28/18 23:45 11/28/18 23:41 Levemir Vial SQ 14 units HS [facility] Administration Losartan Potassium 25 mg 11/21/18 10:00 11/29/18 10:36 Cozaar - PO 25 mg DAILY [facility] Administration Mycophenolate Sodium 360 mg 11/18/18 10:00 11/29/18 10:37 Mycophenolic Acid PO 360 mg BID [facility] Administration Prednisone 5 mg 11/27/18 14:30 11/29/18 10:36 Deltasone - PO 5 mg DAILY [facility] Administration Tacrolimus 1 mg 11/28/18 10:00 11/29/18 10:37 Prograf PO 1 mg DAILY [facility] Administration Tacrolimus 0.5 mg 11/27/18 22:00 11/28/18 22:50 Prograf PO 0.5 mg DAILY@2200 [facility] Administration Tamsulosin HCl 0.4 mg 11/18/18 22:00 11/28/18 21:56 Flomax - PO 0.4 mg HS [facility] Administration Impression 1. CKD 2. kidney transplant 3. DM 4. hx of syncope 5. HTN 6. hyperlipidemia 7. CHF 8. dyspnea 9. Hx DVT - pt has IVC filter Plan - cont current meds - cont prednisone at 5 mg - will need outpt follow up after discharge - will need to monitor prograf levels - will follow - avoid nsaids and nephrotoxins
[2018-11-29 14:33] VITALS: BP 123/42; PULSE 85; TEMP 98.5
--- NOTE | 2018-11-29 15:27 | PN ---
Progress Note, Physician Chief Complaint: SOB History of Present Illness: NAD Feeling better Awaiting d/c to [place] - Current Medication List Current Medications: Active Medications Albuterol/Ipratropium (Duoneb -) 1 amp NEB RQID [facility] Last Admin: 11/29/18 11:26 Dose: Not Given Amlodipine Besylate (Norvasc -) 10 mg PO DAILY [facility] Last Admin: 11/29/18 10:36 Dose: 10 mg Apixaban (Eliquis -) 5 mg PO BID [facility] Last Admin: 11/29/18 10:36 Dose: 5 mg Atorvastatin Calcium (Lipitor -) 80 mg PO HS [facility] Last Admin: 11/28/18 21:56 Dose: 80 mg Carvedilol (Coreg -) 25 mg PO BID [facility] Last Admin: 11/29/18 10:36 Dose: 25 mg Duloxetine HCl (Cymbalta -) 20 mg PO BID [facility] Last Admin: 11/29/18 10:36 Dose: 20 mg Furosemide (Lasix -) 40 mg PO DAILY [facility] Last Admin: 11/29/18 10:36 Dose: 40 mg Insulin Aspart (Novolog Vial Sliding Scale -) 1 vial SQ TIDAC [facility]; Protocol Last Admin: 11/29/18 12:09 Dose: 6 units Insulin Aspart (Novolog Vial Sliding Scale -) 1 vial SQ [facility]; Protocol Last Admin: 11/28/18 23:46 Dose: Not Given Insulin Detemir (Levemir Vial) 7 units SQ DAILY@0700 [facility] Last Admin: 11/29/18 06:41 Dose: 7 units Insulin Detemir (Levemir Vial) 14 units SQ [facility] Last Admin: 11/28/18 23:41 Dose: 14 units Losartan Potassium (Cozaar -) 25 mg PO DAILY [facility] Last Admin: 11/29/18 10:36 Dose: 25 mg Mycophenolate Sodium (Mycophenolic Acid) 360 mg PO BID [facility] Last Admin: 11/29/18 10:37 Dose: 360 mg Prednisone (Deltasone -) 5 mg PO DAILY [facility] Last Admin: 11/29/18 10:36 Dose: 5 mg Tacrolimus (Prograf) 1 mg PO DAILY [facility] Last Admin: 11/29/18 10:37 Dose: 1 mg Tacrolimus (Prograf) 0.5 mg PO DAILY@2200 [facility] Last Admin: 11/28/18 22:50 Dose: 0.5 mg Tamsulosin HCl (Flomax -) 0.4 mg PO HS [facility] Last Admin: 11/28/18 21:56 Dose: 0.4 mg - Objective Vital Signs: Vital Signs Temperature 98.5 F 11/29/18 09:00 Pulse Rate 85 11/29/18 09:00 Respiratory Rate 20 11/29/18 09:00 Blood Pressure 123/42 L 11/29/18 09:00 O2 Sat by Pulse Oximetry (%) 96 11/29/18 09:00 Constitutional: Yes: Well Nourished, No Distress, Calm Cardiovascular: Yes: Regular Rate and Rhythm Respiratory: Yes: Regular Gastrointestinal: Yes: Normal Bowel Sounds, Soft Genitourinary: Yes: WNL Musculoskeletal: Yes: WNL Extremities: Yes: WNL Edema: No Peripheral Pulses WNL: Yes Neurological: Yes: Alert, Oriented Psychiatric: Yes: Alert, Oriented Labs: CBC, BMP 11/28/18 06:45 11/28/18 22:05 Problem List - Problems (1) CHF (congestive heart failure) Assessment/Plan: -Seen by cardiology -started on Furosemide 40 mg po dialy -CXR reviewed -Pulmonary consult -Low sodium/diabetic diet -Last echocardiogram 09/2018 with normal systolic function, moderate MR, mod- severe TR with RVSP 60mmHg, AV not well seen. 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
== END 2018-11-29 16:17 | DRG 291 ==
LOC: JER 19:49 → JERBED 11-18 01:43 → J8W 11-18 04:32
PROVIDERS: ADMIT Internal Medicine; ATTEND Family Medicine
DX: I13.0 Hypertensive heart and chronic kidney disease with heart failure and stage 1 through stage 4 chronic kidney disease, or unspecified chronic kidney disease (principal); J96.01 Acute respiratory failure with hypoxia; G93.41 Metabolic encephalopathy; I50.33 Acute on chronic diastolic (congestive) heart failure; I45.2 Bifascicular block; Z94.0 Kidney transplant status; N17.9 Acute kidney failure, unspecified; D72.829 Elevated white blood cell count, unspecified; I25.10 Atherosclerotic heart disease of native coronary artery without angina pectoris; I08.3 Combined rheumatic disorders of mitral, aortic and tricuspid valves; E11.22 Type 2 diabetes mellitus with diabetic chronic kidney disease; N18.9 Chronic kidney disease, unspecified; E78.00 Pure hypercholesterolemia, unspecified; E88.09 Other disorders of plasma-protein metabolism, not elsewhere classified; N40.0 Benign prostatic hyperplasia without lower urinary tract symptoms; I45.10 Unspecified right bundle-branch block; R13.13 Dysphagia, pharyngeal phase; R26.9 Unspecified abnormalities of gait and mobility; E11.65 Type 2 diabetes mellitus with hyperglycemia; E11.42 Type 2 diabetes mellitus with diabetic polyneuropathy; I27.20 Pulmonary hypertension, unspecified; R23.4 Changes in skin texture; I25.2 Old myocardial infarction; Z86.718 Personal history of other venous thrombosis and embolism; Z16.35 Resistance to multiple antimicrobial drugs; Z95.1 Presence of aortocoronary bypass graft; Z79.4 Long term (current) use of insulin; Z94.89 Other transplanted organ and tissue status; Z86.14 Personal history of Methicillin resistant Staphylococcus aureus infection
CPT/HCPCS: 36415; 71045-TC-FY; 74230-TC-FY; 80048; 80053; 80061; 80197; 81003; 81015; 82009; 82550; 82947; 82962; 83036; 83721; 83735; 83880; 84100; 84484; 85025; 85027; 87040; 87086; 87804; 92611-GN; 93005; 93010; 93971-TC; 94010; 94640; 97116-GP; 97161-GP; 99284-25; J7030